=== PATIENT | female | born 1945 | race Caucasian/White ===

== ENCOUNTER 2019-08-03 10:20 | Outpatient (CLI) | payer MEDICARE, SELFPAY ==
--- NOTE | ~2019-08-03 | MM_ITS ---
EXAMINATION: MM screening [facility] BI w maryam HISTORY: Screening mammogram TECHNIQUE: Craniocaudal and mediolateral oblique 3-D tomosynthesis images were obtained and synthetic 2-D images were generated. CAD analysis was submitted and interpreted. COMPARISON: 06/19/2018, 06/06/2017, 01/17/2015 BREAST PARENCHYMAL COMPOSITION: The breasts are almost entirely fatty. FINDINGS: There is no evidence of suspicious mass, calcification, or architectural distortion to sugg est malignancy in either breast. There has been no suspicious interval change. IMPRESSION: 1. No mammographic evidence of malignancy. 2. Recommend routine screening mammography in one year. BI-RADS Category 1: Negative Reviewed, dictated and finalized at location A.
--- NOTE | ~2019-08-03 | XR_ITS ---
EXAMINATION: XR chest 2V DATE: 08/03/2019 12:07 INDICATION: Shortness of breath. TECHNIQUE: Frontal and lateral views of the chest were obtained. COMPARISON: Chest single view 11/05/2014, 10/02/2018 FINDINGS: There is mild atelectasis in the lower lung zones. No pleural effusion or pneumothorax. The heart size is normal. There is a prominent left paracardial fat pad. There is a right shoulder arthr oplasty. There are chronic compression fractures of T5 and L1. IMPRESSION: 1. Mild atelectasis in the lower lung zones. Reviewed, dictated and finalized at location A.
--- NOTE | ~2019-08-03 | MR_ITS ---
EXAMINATION: MR brain/brain stem wo con DATE: 08/03/2019 12:50 INDICATION: Left hemiparesis. Amnesia. TECHNIQUE: Magnetic resonance imaging (MRI) of the brain and brainstem was performed without intraven ous contrast. Sequences included sagittal and axial T1-weighted FSE, axial diffusion-weighted FS EPI, axial T2*-weighted GRE, axial T2-weighted FLAIR Propeller, and axial T2-weighted Propeller. Apparent diffusion coefficient (ADC) maps were created. COMPARISON: Head CT 11/04/2018 FINDINGS: There are scattered areas of nonspecific increased T2-weighted signal intensity in the cere bral white matter and benedict, which is within normal limits for the patient's age. There is no intracra nial hemorrhage, acute infarction, or abnormal intracranial mass lesion. The ventricles are normal in size. The paranasal sinuses are clear. The orbits are normal. The mastoid air cells are normal. IMPRESSION: 1. Normal aging brain. Reviewed, dictated and finalized at location A. IMPRESSION: 1. Normal aging brain.
== END 2019-08-03 10:21 | disposition home or self-care (01) ==
PROVIDERS: PCP Family Medicine; Visit Provider Family Medicine
DX: Z12.31 Encounter for screening mammogram for malignant neoplasm of breast (principal); R41.3 Other amnesia; R06.02 Shortness of breath; J98.11 Atelectasis
CPT/HCPCS: 70551; 71046; 77063; 77067

== ENCOUNTER 2019-10-28 09:14 | Outpatient (CLI) | payer MEDICARE, SELFPAY ==
[2019-10-28 09:34] LABS: Basophils Percent Auto 0.1 % (0.2-1.2); Eosinophils Absolute Auto 0.2 K/mm3 (0-0.3); Eosinophils Percent Auto 2.3 % (0-4.4); Hematocrit 39.9 % (37.0-47.0); Hemoglobin 12.9 g/dL (12.0-15.0); Immature Granulocyte Absolute 0.01 K/mm3 (0.00-0.031); Immature Granulocyte Percent A 0.1 % (0-0.5); Lymphocytes Absolute Auto 0.84 K/mm3 (0.9-3.2); Lymphocytes Percent Auto 12.2 % (18.3-44.2); Mean Corpuscular HGB Conc 32.3 g/dl (32-36); Mean Corpuscular Hemoglobin 31.3 pg (26-34); Mean Corpuscular Volume 96.8 fl (80-100); Mean Platelet Volume 10.4 fl (7.4-10.4); Monocytes Absolute Auto 0.4 K/mm3 (0.1-0.6); Monocytes Percent Auto 6.1 % (2.6-8.5); Neutrophils Absolute Auto 5.4 K/mm3 (1.3-6.7); Neutrophils Percent Auto 79.2 % (45.5-73.1); Platelet Count Result 159 k/mm3 (150-375); Red Blood Count 4.12 M/mm3 (4.2-5.4); Red Cell Distribution Width 13.2 % (11.5-14.5); White Blood Count 6.9 K/mm3 (4.5-10.0)
[2019-10-28 09:47] LABS: Alanine Aminotransferase 12 U/L (4-35); Albumin Level 4.2 g/dL (3.5-5.1); Alkaline Phosphatase 73 U/L (38-126); Anion Gap 12.9 mmol/L (7-16); Aspartate Amino Transferase 33 U/L (14-36); Bilirubin,Total 0.8 mg/dL (0.2-1.3); Blood Urea Nitrogen 16 mg/dL (7-17); Calcium 8.9 mg/dL (8.4-10.2); Carbon Dioxide 29 mmol/L (22-30); Chloride 99 mmol/L (98-107); Estimated Glomerular Filt Rate > 60; Glucose 105 mg/dL (65-105); Potassium 3.9 mmol/L (3.4-5.0); Sodium 137 mmol/L (137-145)
[2019-10-28 10:39] LABS: Vitamin D 25 Hydroxy 46.5 ng/mL
--- NOTE | 2019-10-28 11:30 | NEURO_ITS ---
Patient Number: [id number] Impression: # Complains of numbness and weakness of hands and feet. # Bilateral Carpal Tunnel Syndrome, left more than right of severe degree. # Left ulnar neuropathy across the elbow. # Needle/EMG neurogenic in bilateral Abd Poll Brevis muscles. # Bilateral absent peroneal nerve responses with absent F-waves and neurogenic changes in EDB and Ant Tibialis muscles raising the possibility of higher involvement as well Nerve Conduction Studies Anti Sensory Summary Table Stim Site NR Peak (ms) P-T Amp (?V) Site1 Site2 Delta-P (ms) Dist (cm) Kenny (m/s) Left Median Anti Sensory (2-3nd Digit) Wrist 8.1 9.3 Wrist 2-3nd Digit 8.1 14.0 17 Wrist 8.9 15.9 Wrist 2-3nd Digit 8.1 14.0 17 Right Median Anti Sensory (2-3nd Digit) Wrist 9.0 30.1 Wrist 2-3nd Digit 9.0 14.0 16 Wrist 4.3 33.0 Wrist 2-3nd Digit 9.0 14.0 16 Left Radial Anti Sensory (Base 1st Digit) Wrist 2.2 17.3 Wrist Base 1st Digit 2.2 0.0 Right Radial Anti Sensory (Base 1st Digit) Wrist 2.1 12.2 Wrist Base 1st Digit 2.1 0.0 Left Sup Fibular Anti Sensory (Ant Lat Mall) 14 cm 4.2 9.1 14 cm Ant Lat Mall 4.2 16.0 38 Right Sup Fibular Anti Sensory (Ant Lat Mall) 14 cm 4.3 13.5 14 cm Ant Lat Mall 4.3 16.0 37 Left Sural Anti Sensory (Lat Mall) Calf 4.4 11.0 Calf Lat Mall 4.4 16.0 36 Right Sural Anti Sensory (Lat Mall) Calf 4.0 3.8 Calf Lat Mall 4.0 16.0 40 Left Ulnar Anti Sensory (5th Digit) Wrist 3.0 9.7 Wrist 5th Digit 3.0 14.0 47 Right Ulnar Anti Sensory (5th Digit) Wrist 2.1 43.1 Wrist 5th Digit 2.1 14.0 67 Motor Summary Table Stim Site NR Onset (ms) O-P Amp (mV) Site1 Site2 Delta-0 (ms) Dist (cm) Kenny (m/s) Left Median Motor (Abd Poll Brev) NO RESPONSE Wrist NR Elbow NR Right Median Motor (Abd Poll Brev) Wrist 9.5 0.4 Elbow Wrist 5.4 28.0 52 Elbow 14.9 0.5 Left Peroneal Motor (Vastus Med) NO RESPONSE Ankle NR Popit NR Right Peroneal Motor (Vastus Med) NO RESPONSE Ankle NR Popit NR Left Tibial Motor (Abd Valle Brev) Ankle 4.7 2.0 Knee Ankle 9.4 41.0 44 Knee 14.1 3.2 Right Tibial Motor (Abd Valle Brev) Ankle 4.1 2.4 Knee Ankle 10.0 40.0 40 Knee 14.1 2.0 Left Ulnar Motor (Abd Dig Minimi) Wrist 3.1 4.1 A Elbow Wrist 6.7 29.0 43 A Elbow 9.8 3.0 B Elbow Wrist 5.6 23.0 41 B Elbow 8.7 2.9 Right Ulnar Motor (Abd Dig Minimi) Wrist 2.3 4.9 A Elbow Wrist 5.0 29.0 58 A Elbow 7.3 4.0 F Wave Studies NR F-Lat (ms) L-R F-Lat (ms) Left Median (Mrkrs) (Abd Poll Brev) 32.58 0.82 Right Median (Mrkrs) (Abd Poll Brev) 31.76 0.82 Left Peroneal (Mrkrs) (EDB) NO RESPONSE NR Right Peroneal (Mrkrs) (EDB) NO RESPONSE NR Left Tibial (Mrkrs) (Abd Hallucis) 56.14 1.64 Right Tibial (Mrkrs) (Abd Hallucis) 57.78 1.64 Left Ulnar (Mrkrs) (Abd Dig Min) 30.15 0.03 Right Ulnar (Mrkrs) (Abd Dig Min) 30.12 0.03 EMG Side Muscle Nerve Root Ins Act Fibs Amp Dur Recrt Comment Right 1stDorInt Ulnar C8-T1 Nml Nml Nml Nml Nml Right Ext Indicis Radial (Post Int) C7-8 Nml Nml Nml Nml Nml Right Ext Digitorum Radial (Post Int) C7-8 Nml Nm
== END 2019-10-28 09:15 | disposition home or self-care (01) ==
LOC: ANHNEURO 09:15
PROVIDERS: PCP Family Medicine; Visit Provider Family Medicine
DX: E78.2 Mixed hyperlipidemia (principal); I10 Essential (primary) hypertension; J44.9 Chronic obstructive pulmonary disease, unspecified; K50.90 Crohn's disease, unspecified, without complications; Z87.891 Personal history of nicotine dependence; G56.03 Carpal tunnel syndrome, bilateral upper limbs; G56.22 Lesion of ulnar nerve, left upper limb
CPT/HCPCS: 36415; 80053; 82306; 82607; 85025; 95886; 95913

== ENCOUNTER 2019-10-30 16:32 | Outpatient (CLI) | payer MEDICARE, SELFPAY ==
--- NOTE | ~2019-10-30 | CT_ITS ---
EXAMINATION: CT lung screening EXAM DATE: 10/30/2019 17:07 INDICATION: Personal history of nicotine dependence. TECHNIQUE: Spiral low dose CT of the chest without contrast. Axial, coronal and sagittal images were reviewed. The dose-length product (DLP) for this examination was 242.18 mGy-cm. The exposure was t ailored according to patient size (auto mA exposure control), and iterative reconstruction (ASIR) was used as additional dose reduction technique. Comparison is made to prior examination from 10/02/2018. FINDINGS: There is mild emphysema and mild left basilar atelectasis. A few punctate pulmonary nodule s unchanged, granulomas. No suspicious pulmonary nodules. Tracheobronchial tree is patent. There i s no mediastinal, hilar or axillary lymphadenopathy. There are no pleural or pericardial effusions. There is no pneumothorax. Heart is upper limits of normal in size. No evidence of coronary radha rial calcification. Upper abdomen is unremarkable. No osteoblastic or osteolytic lesions identified . Right shoulder replacement hardware. Advanced left shoulder primary osteoarthritis. 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 IMPRESSION: Lung-RADS category 2, benign appearance or behavior (<1% chance of malignancy); recommend continued LDCT screening in 1 year. > Reviewed, dictated and finalized at location A.
== END 2019-10-30 16:33 | disposition home or self-care (01) ==
LOC: ANHIMG 16:33
PROVIDERS: PCP Family Medicine; Visit Provider Family Medicine
DX: E78.2 Mixed hyperlipidemia (principal); I10 Essential (primary) hypertension; J44.9 Chronic obstructive pulmonary disease, unspecified; K50.90 Crohn's disease, unspecified, without complications; Z12.2 Encounter for screening for malignant neoplasm of respiratory organs; Z87.891 Personal history of nicotine dependence
CPT/HCPCS: G0297

== ENCOUNTER 2019-12-16 12:03 | Emergency (ER) | payer MEDICARE, SELFPAY ==
--- NOTE | ~2019-12-16 | US_ITS ---
EXAMINATION: US venous doppler [facility] EXAM DATE: 12/16/2019 14:54 INDICATION: Left leg pain and swelling. TECHNIQUE: Multiple grayscale, color flow and Doppler images of the left lower extremity deep venous system were obtained and reviewed. Comparison is made to prior examination from 11/04/2018. FINDINGS: The left common femoral, femoral and profunda veins demonstrate normal color flow, respirat ory variation, augmentation and compressibility. Compressibility, color flow confirmed within the le ft popliteal, posterior tibial, peroneal, and greater saphenous veins. Scanning at left knee area of concern, region of bruise demonstrated some edema suspected but no foca l hematoma. IMPRESSION: 1. No left lower extremity deep venous thrombosis. Reviewed, dictated and finalized at location B.
--- NOTE | ~2019-12-16 | XR_ITS ---
EXAMINATION: XR knee LT min 4V DATE: 12/16/2019 13:30 INDICATION: Left knee pain. TECHNIQUE: 4 views of left knee were obtained. COMPARISON: Left knee radiographs 04/11/2016 FINDINGS: Bone alignment is normal. No fracture. There is severe osteoarthritis of medial and patello femoral compartments and moderate osteoarthritis of lateral compartment. No knee joint effusion. Ther e are loose bodies in the knee joint. IMPRESSION: 1. Severe left knee osteoarthritis. 2. Left knee joint loose bodies. Reviewed, dictated and finalized at location A.
[2019-12-16 12:17] VITALS: BP 105/61; PULSE 69; RESP 18; TEMP 36.6; O2SAT 95
[2019-12-16 14:38] LABS: Basophils Percent Auto 0.3 % (0.2-1.2); Eosinophils Absolute Auto 0.3 K/mm3 (0-0.3); Eosinophils Percent Auto 4.3 % (0-4.4); Hemoglobin 12.6 g/dL (12.0-15.0); Immature Granulocyte Absolute 0.01 K/mm3 (0.00-0.031); Immature Granulocyte Percent A 0.2 % (0-0.5); Lymphocytes Percent Auto 17.3 % (18.3-44.2); Mean Corpuscular HGB Conc 32.3 g/dl (32-36); Mean Corpuscular Hemoglobin 31.6 pg (26-34); Mean Corpuscular Volume 97.7 fl (80-100); Monocytes Absolute Auto 0.3 K/mm3 (0.1-0.6); Monocytes Percent Auto 5.2 % (2.6-8.5); Neutrophils Absolute Auto 4.2 K/mm3 (1.3-6.7); Neutrophils Percent Auto 72.7 % (45.5-73.1); Platelet Count Result 168 k/mm3 (150-375); Red Blood Count 3.99 M/mm3 (4.2-5.4); Red Cell Distribution Width 12.8 % (11.5-14.5); White Blood Count 5.8 K/mm3 (4.5-10.0)
[2019-12-16 14:53] LABS: Anion Gap 6 mmol/L (8-16); Blood Urea Nitrogen 16 mg/dL (7-17); CRP < 0.5 mg/dL (<1.0); Calcium 9.1 mg/dL (8.4-10.2); Carbon Dioxide 30 mmol/L (22-30); Chloride 103 mmol/L (98-107); Estimated CRCL calculation 77 ml/min; Estimated Glomerular Filt Rate > 60; Glucose 92 mg/dL (65-105); Sodium 139 mmol/L (137-145)
--- NOTE | 2019-12-16 15:09 | ED.GENADULT ---
HPI - General Adult General Chief complaint: Extremity Injury, Lower <ZOHREH Llamas Last Filed: 12/16/19 15:40> Stated complaint: left knee pain <ZOHREH Llamas Last Filed: 12/16/19 15:40> Time Seen by Provider: 12/16/19 13:52 <ZOHREH Llamas Last Filed: 12/16/19 15:40> Source: patient and family <ZOHREH Llamas Last Filed: 12/16/19 15:40> Mode of arrival: ambulatory <ZOHREH Llamas Last Filed: 12/16/19 15:40> Limitations: no limitations <ZOHREH Llamas Last Filed: 12/16/19 15:40> History of Present Illness HPI narrative: Patient is a 73-year-old female who presents with left knee pain and swelling patient has been working on her knees frequently and developed some bruising of the superior left knee that has spread out around the knee where she noticed swelling and tenderness <ZOHREH Llamas Last Filed: 12/16/19 15:40> Related Data Home medications: Home Medications Medication Instructions Recorded Confirmed acetaminophen 650 mg 650 mg PO Q12H 03/05/19 12/15/19 tablet,extended release albuterol sulfate 2.5 mg INHALATION Q6H 03/05/19 12/15/19 aspirin 81 mg tablet,delayed 81 mg PO DAILY 03/05/19 12/15/19 release naproxen sodium 220 mg tablet 220 mg PO BID PRN 03/05/19 12/15/19 potassium chloride 10 mEq 10 meq PO DAILY 03/05/19 12/15/19 tablet,extended release pramipexole 1 mg tablet 1 mg PO BID 03/05/19 12/15/19 sertraline 50 mg tablet 50 mg PO DAILY 03/05/19 12/15/19 <ZOHREH Llamas Last Filed: 12/16/19 15:40> Allergies/adverse reactions: Allergies Allergy/AdvReac Type Severity Reaction Status Date / Time Penicillins Allergy Unknown Unknown Verified 09/01/19 15:31 SODIUM PENTOTHAL AdvReac Intermediate Nausea and Uncoded 12/17/18 14:49 Vomiting <ZOHREH Llamas Last Filed: 12/16/19 15:40> Review of Systems Review of Systems: All systems reviewed & are unremarkable except as noted in HPI and below <Alphonse Sands PA-C - Last Filed: 12/16/19 15:40> [facility] Past Medical History Medical History: Medical History Alcohol abuse Cubital tunnel syndrome on left Postmenopausal Primary osteoarthritis of right hip <Alphonse Sands PA-C - Last Filed: 12/16/19 15:40> Surgical History Surgical History: Surgical History H/O shoulder replacement (~2017) History of hip replacement (~2017) <Alphonse Sands PA-C - Last Filed: 12/16/19 15:40> Social History Social History: Social History Smoking status: Former smoker Smoking end date: 03/25/09 Alcohol intake: current Gender identity (if verbalized by the patient): Female <Alphonse Sands PA-C - Last Filed: 12/16/19 15:40> Course Course Emergency Course: Patient is seen her primary care earlier in the week for this who thought she may have tore something I agree with this given the bruising above the knee likely suggests a hematoma that is spread downward secondary to gravity patient is afebrile nontoxic-appearing no high risk changes in the blood work or imaging felt appropriate for continued outpatient reevaluation discussion was made with her son-in-law who is a medical doctor and she will also help facilitate her follow-up will be given orthopedic follow-up as well <Alphonse Sands PA-C - Last Filed: 12/16/19 15:40> Vital Signs Vital signs: Vital Signs Temperature 36.6 C 12/16/19 12:17 Pulse Rate 69 12/16/19 12:17 Respiratory Rate 18 12/16/19 12:17 Blood Pressure 105/61 12/16/19 12:17 Pulse Oximetry 95 12/16/19 12:17 Temperature 36.6 C 12/16/19 12:17 Pulse Rate 80 12/16/19 15:50 Respiratory Rate 18 12/16/19 15:50 Blood Pressure 138/78 12/16/19 15:50 Pulse Oximetry
[2019-12-16 15:50] VITALS: BP 138/78; PULSE 80; RESP 18; O2SAT 99
== END 2019-12-16 15:51 | disposition home or self-care (01) ==
PROVIDERS: Emergency Provider Emergency Medicine; PCP Family Medicine
DX: M25.562 Pain in left knee (principal); R22.42 Localized swelling, mass and lump, left lower limb
CPT/HCPCS: 36415; 73564; 80048; 85025; 86140; 93971; 99284

== ENCOUNTER 2020-02-22 11:32 | Outpatient (CLI) | payer MEDICARE, SELFPAY ==
--- NOTE | 2020-02-22 11:34 | ECG_ITS ---
Measurements Intervals [place] Rate: 76 P: SD: 0 QRS: 15 QRSD: 102 T: 31 QT: 390 QTc: 439 Interpretive Statements SINUS RHYTHM DELAYED PRECORDIAL R/S TRANSITION BORDERLINE ST-T WAVE ABNORMALITY- ANT/HIGH LAT LEADS BASELINE ARTIFACT- I, II, III, AVR, AVL, AVF, V1-V6 BORDERLINE ECG Electronically Signed On 02-22-2020 12:02:07 SUSTAINABILITY COMMUNICATOR by Brian Anderson D.O.
[2020-02-22 12:08] LABS: Anion Gap 6 mmol/L (8-16); Blood Urea Nitrogen 16 mg/dL (7-17); Calcium 9.3 mg/dL (8.4-10.2); Carbon Dioxide 33 mmol/L (22-30); Chloride 99 mmol/L (98-107); Estimated Glomerular Filt Rate > 60; Glucose 100 mg/dL (65-105); Sodium 138 mmol/L (137-145)
== END 2020-02-22 11:33 | disposition home or self-care (01) ==
LOC: ANHSURGERY 11:34
PROVIDERS: Anesthesiology; PCP Family Medicine; Visit Provider Plastic Surgery
DX: Z01.818 Encounter for other preprocedural examination (principal); I10 Essential (primary) hypertension; Z79.899 Other long term (current) drug therapy
CPT/HCPCS: 36415; 80048; 93005

== ENCOUNTER 2020-02-27 00:53 | Outpatient (CLI) | payer MEDICARE, SELFPAY ==
[2020-02-27 19:14] LABS: SARS-CoV-2 RNA PCR Negative
== END 2020-02-27 00:54 | disposition home or self-care (01) ==
LOC: ANHCOVIDDT 00:53
PROVIDERS: PCP Family Medicine; Visit Provider Plastic Surgery
DX: Z01.818 Encounter for other preprocedural examination (principal); Z20.828 Contact with and (suspected) exposure to other viral communicable diseases
CPT/HCPCS: 87635; C9803; U0003

== ENCOUNTER 2020-03-02 01:00 | Day surgery (SDC) | payer MEDICARE, SELFPAY ==
[2020-02-08 08:24] VITALS: BMI 40.7
--- NOTE | 2020-02-15 10:55 | PC.NURSE ---
PT STATES NO CHANGE IN HEALTH HX SINCE LAST INTERVIEW ON 02/08/20. NEW DATE AND TIME GIVEN
--- NOTE | 2020-03-01 09:54 | WPDANESEPPF ---
Anes - Initial Pre Proc Eval Procedure: Operation Date: 03/02/20 09:30 Proposed Procedures p Left Open Carpal Tunnel Release - Prince Prasad MD Date/Time: 03/01/20 09:54 Surgeon: Prince Prasad MD Pre Op Diagnosis: Left Carpal Tunnel Syndrome Patient Data Age: 74 Gender: F Height: 1.65 m Weight: 111 kg Allergies Allergy/AdvReac Type Severity Reaction Status Date / Time Penicillins Allergy Mild Rash Verified 03/02/20 08:02 thiopental [From Pentothal] AdvReac Intermediate Nausea and Verified 03/01/20 09:34 Vomiting Home Medications Medication Instructions Recorded Confirmed Type clopidogrel 75 mg tablet 75 mg PO DAILY #90 tablet 02/18/19 03/02/20 Rx acetaminophen 650 mg 650 mg PO Q12H PRN 03/05/19 02/08/20 History tablet,extended release albuterol sulfate 2.5 mg INHALATION Q6H PRN 03/05/19 02/08/20 History aspirin 81 mg tablet,delayed 81 mg PO DAILY 03/05/19 02/08/20 History release naproxen sodium 220 mg tablet 220 mg PO QAM 03/05/19 02/08/20 History potassium chloride 10 mEq 10 meq PO DAILY 03/05/19 02/08/20 History tablet,extended release rosuvastatin 10 mg tablet 10 mg PO DAILY #90 tablet 12/04/19 02/08/20 Rx furosemide 40 mg tablet 40 mg PO QAM #90 tablet 01/14/20 02/08/20 Rx albuterol sulfate [Ventolin HFA] 1 inh INHALATION QID PRN 02/08/20 02/08/20 History balsalazide 2,250 mg PO BID 02/08/20 02/08/20 History diphenoxylate-atropine 2 tablet PO DAILY PRN 02/08/20 02/08/20 History gabapentin 300 mg PO TID 02/08/20 02/08/20 History sertraline 100 mg PO QAM 02/08/20 03/02/20 History pramipexole 1 mg tablet 1 mg PO HS #90 tablet 02/23/20 Rx ECG: Date of Service: 02/22/20 Procedure(s): CA 12 lead EKG Accession Number(s): [id number] cc: ~ Measurements Intervals [place] Rate: 76 P: [place]: 0 QRS: 15 QRSD: 102 T: 31 QT: 390 QTc: 439 Interpretive Statements SINUS RHYTHM DELAYED PRECORDIAL R/S TRANSITION BORDERLINE ST-T WAVE ABNORMALITY- ANT/HIGH LAT LEADS BASELINE ARTIFACT- I, II, III, AVR, AVL, AVF, V1-V6 BORDERLINE ECG Electronically Signed On 02-22-2020 12:02:07 TELEPHONE INTERVIEWER by Brian Anderson D.O. Dictated By: Brian Anderson DO 02/22/20 1212 Patient hx anesthesia problems: none Family hx anesthesia problems: none [facility] Past Medical History Medical History (Updated 03/01/20 @ 09:55 by Surinder Figueroa MD) Alcohol abuse Benign hypertension Cervical disc disorder with radiculopathy of cervicothoracic region Chronic depression Chronic diastolic (congestive) heart failure Chronic obstructive pulmonary disease, unspecified Crohn's disease, unspecified, without complications 2018 colonoscopy negative ( cologuard +) Cubital tunnel syndrome on left Lung nodules 05/2017, 09/2018: stable 4mm right apex nodule/ multiple other nodules, emphysema LDCT: stable Major depressive disorder, recurrent, moderate Mixed hyperlipidemia Nicotine dependence, unspecified, in remission LDCT 40 pack year/ quit 9 yrs ago 06/09, 10/10: emphysema, chronic 4mm nodule right apex, multiple nodules Obstructive sleep apnea syndrome in adult Oxygen dependent Peripheral neuropathy Postmenopausal Primary osteoarthritis of right hip Pulmonary HTN RLS (restless legs syndrome) Surgical History Surgical History H/O shoulder replacement (~2016) History of hip replacement (~2016) Family History Family History Mother Family history of osteoporosis Family history of mental disorder Family history of anemia Family history of arthritis Family history of malignant neoplasm Family history of
--- NOTE | 2020-03-02 07:10 | WPDHPUPDATE1 ---
History and Physical Update Update Date/Time: 03/02/20 07:10 History and Physical has been reviewed, including an updated exam of the patient. There are NO changes in the patient's condition. Risks, benefits, and alternatives have been discussed and questions answered. Patient agrees to proceed with procedure. Pt prefers that only the left be operated today.
[2020-03-02 07:32] VITALS: BP 134/75; PULSE 79; RESP 20; TEMP 36.8; O2SAT 92
[2020-03-02] MEDS: LACTATED RINGERS 1,000 ML 30 ML IV CONT (08:05)
--- NOTE | 2020-03-02 09:37 | SUR.PREOP ---
FAMILY UPDATE TO DAUGHTER BRIANA/MESSAGE LEFT R/T DELAY W/SURGEON/ PT AMBULATED TO BATHROOM AT THIS TIME W/CANE AND STAFF ASSISTANCE
[2020-03-02] MEDS: BACITRACIN OINTMENT 15 GM TUBE 1 APPLIC TOPICAL (10:39)
[2020-03-02] MEDS: LIDO 1%/EPINEPHRINE 1:100,000 20 ML VIAL 10 ML INFILTRATE (10:39)
--- NOTE | 2020-03-02 11:04 | PM.OP ---
Procedure Note - Brief Procedure Note - Brief Date of procedure: 03/02/20 Pre-op diagnosis: Left Carpal Tunnel Syndrome Post-op diagnosis: same Procedure performed: L OCTR Anesthesia: MAC Surgeon: Prince Prasad MD Tourniquet time (min): 15 Drains: No Packing: No Pathology: none sent Complications: No immediate complications Condition: stable Disposition: no change
[2020-03-02 11:05] VITALS: BP 104/56; PULSE 58; RESP 16; O2SAT 97
--- NOTE | 2020-03-02 11:26 | PM.PROC ---
Procedure Note - Detailed Date of procedure: 03/02/20 Pre-op diagnosis: Left Carpal Tunnel Syndrome The left carpal tunnel was marked as the patient was waiting in the holding area. She confirmed that site. She was taken to the operating room and placed supine on the operating table a time-out was held and confirmed. She was given IV sedation as the extremity was prepped and draped in the usual fashion. Marking was reconfirmed on the palm and the site locally infiltrated with 1% lidocaine with epinephrine. The tourniquet was inflated to 250 mmHg. The incision was made in the palm as marked. Dissection was carried through the subcutaneous tissue with blunt dissection and through the fascia and carpal ligament with a 15. Blade. Under 3 point retraction the ligament divided distally and proximally to completely release it. No unusual anatomy was noted. The skin was closed with interrupted 5 0 nylon suture. She is discharged with a soft bandage across the wrist, instructions in wound care and follow-up, and a prescription for hydrocodone 5/325 8. Surgeon: Prince Prasad MD
[2020-03-02 11:35] VITALS: BP 120/55; PULSE 62; RESP 16; O2SAT 94
[2020-03-02 12:05] VITALS: BP 154/64; PULSE 66; RESP 16; O2SAT 94
== END 2020-03-02 12:46 | disposition home or self-care (01) ==
PROVIDERS: PCP Family Medicine; Visit Provider Plastic Surgery
PROC: (CPT 64721; principal; 2020-03-02 09:30)
DX: G56.02 Carpal tunnel syndrome, left upper limb (principal); I11.0 Hypertensive heart disease with heart failure; I50.32 Chronic diastolic (congestive) heart failure; K50.90 Crohn's disease, unspecified, without complications; F33.1 Major depressive disorder, recurrent, moderate; G47.33 Obstructive sleep apnea (adult) (pediatric); G62.9 Polyneuropathy, unspecified; G25.81 Restless legs syndrome; Z99.81 Dependence on supplemental oxygen; Z87.891 Personal history of nicotine dependence; E66.01 Morbid (severe) obesity due to excess calories; Z68.41 Body mass index [BMI] 40.0-44.9, adult; F10.10 Alcohol abuse, uncomplicated
CPT/HCPCS: 64721; A9270; J2250; J2405; J2704; J3010; J7120

== ENCOUNTER 2020-03-09 11:08 | Outpatient (NON) | payer MEDICARE, SELFPAY ==
[2020-03-09 22:32] LABS: SARS-CoV-2 RNA PCR Positive
== END 2020-03-09 11:09 ==
LOC: ANHCOVIDDT 11:10
PROVIDERS: PCP Family Medicine; Visit Provider Physician Assistant Medical
DX: U07.1 COVID-19 (principal)
CPT/HCPCS: 87635; C9803; U0003

== ENCOUNTER 2020-06-19 17:08 | Emergency (ER) | payer MEDICARE, SELFPAY ==
--- NOTE | ~2020-06-19 | CT_ITS ---
EXAMINATION: CT brain wo [facility] EXAM DATE: 06/19/2020 17:39 INDICATION: Fall, right-sided head injury. On blood thinners. TECHNIQUE: Spiral CT of the head was performed without contrast. Axial, coronal and sagittal images were reviewed. The dose-length product (DLP) for this examination was 605.33 mGy-cm. The exposure w as tailored according to patient size, and iterative reconstruction (ASIR) was used as additional dos e reduction technique. Comparison is made to prior examination from 11/04/2018. FINDINGS: There is no acute intraparenchymal hemorrhage. No evidence of intraparenchymal brain mass lesion. Mild cerebral atrophy. No evidence of acute infarction. There is no mass effect or midline s hift. The ventricles are normal in size. There are no extra-axial collections. There are no acute calvarial fractures. The orbits are unremarkable. There is large right-sided scalp hematoma. The vis ualized sinuses and mastoid air cells are well aerated. IMPRESSION: 1. No acute intracranial findings. 2. Large right-sided scalp hematoma. Reviewed, dictated and finalized at location A.
[2020-06-19 17:22] VITALS: BP 170/84; PULSE 86; RESP 16; TEMP 36.4; O2SAT 93
--- NOTE | 2020-06-19 17:26 | ED.HEATRA ---
HPI - Head Injury General Chief complaint: Head Injury Stated complaint: fall/hi Time Seen by Provider: 06/19/20 17:18 History of Present Illness HPI Narrative: 74 yo female presents to the ED with a head injury. SHe reports that she got up to go to the bathroom and she fell into a dresser. She struck the right side of her face. She denies any other pain or injury. She beleives that injury happened around 0900. No weakness, numbness, confusion, back pain, neck pain. Related Data Home Medications Medication Instructions Recorded Confirmed acetaminophen 650 mg 650 mg PO Q12H PRN 03/05/19 03/02/20 tablet,extended release aspirin 81 mg tablet,delayed 81 mg PO DAILY 03/05/19 03/02/20 release albuterol sulfate [Ventolin HFA] 1 inh INHALATION QID PRN 02/08/20 02/08/20 diphenoxylate-atropine 2 tablet PO DAILY PRN 02/08/20 02/08/20 balsalazide mg PO 06/19/20 clopidogrel 06/19/20 furosemide 06/19/20 gabapentin 06/19/20 potassium chloride meq PO 06/19/20 pramipexole mg 06/19/20 rosuvastatin mg 06/19/20 sertraline mg 06/19/20 Allergies Allergy/AdvReac Type Severity Reaction Status Date / Time Penicillins Allergy Mild Rash Verified 06/19/20 17:28 thiopental [From Pentothal] AdvReac Intermediate Nausea and Verified 06/19/20 17:28 Vomiting Review of Systems Review of Systems: All systems reviewed & are unremarkable except as noted in HPI and below Constitutional: Constitutional: Denies fever(s) Eyes: Eyes: Denies change in vision and Denies photophobia ENT: Reports system reviewed and no additional complaints, except as documented Cardiovascular: Cardiovascular: Denies chest pain Respiratory: Respiratory: Denies dyspnea Gastrointestinal: Gastrointestinal: Reports nausea Genitourinary: Genitourinary: Denies hematuria, Denies nocturia and Denies dysuria Musculoskeletal: Musculoskeletal: Denies back pain Neurologic: Denies dizziness and Denies weakness PMF Past Medical History Medical History Alcohol abuse Benign hypertension Cervical disc disorder with radiculopathy of cervicothoracic region Chronic depression Chronic diastolic (congestive) heart failure Chronic obstructive pulmonary disease, unspecified Crohn's disease, unspecified, without complications 2018 colonoscopy negative ( cologuard +) Cubital tunnel syndrome on left Lung nodules 05/2017, 09/2018: stable 4mm right apex nodule/ multiple other nodules, emphysema LDCT: stable Major depressive disorder, recurrent, moderate Mixed hyperlipidemia Nicotine dependence, unspecified, in remission LDCT 40 pack year/ quit 9 yrs ago 06/09, 10/10: emphysema, chronic 4mm nodule right apex, multiple nodules Obstructive sleep apnea syndrome in adult Oxygen dependent Peripheral neuropathy Postmenopausal Primary osteoarthritis of right hip Pulmonary HTN RLS (restless legs syndrome) Surgical History Surgical History H/O shoulder replacement (~2016) History of carpal tunnel surgery of left wrist 12.9.20 History of hip replacement (~2016) Family History Family History Mother Family history of osteoporosis Family history of mental disorder Family history of anemia Family history of arthritis Family history of malignant neoplasm Family history of Alzheimer's disease Patient's mother is Sibling Family history of malignant neoplasm of uterus Family history of malignant neoplasm of cervix Patient's sister is Other Cerebrovascular accident Family history of cardiovascular disease Family history of glaucoma Social History Social History Smoking packs per day: 1 Smoking cigarettes per day: 20.0 Years smoked: 45 Smoking pack-years: 45.00 Smoking status:
[2020-06-19 18:34] VITALS: BP 129/93; PULSE 67; RESP 18; O2SAT 92
== END 2020-06-19 18:27 | disposition home or self-care (01) ==
PROVIDERS: Emergency Provider Emergency Medicine; PCP Family Medicine
DX: S00.03XA Contusion of scalp, initial encounter (principal); J44.9 Chronic obstructive pulmonary disease, unspecified; I11.0 Hypertensive heart disease with heart failure; I50.32 Chronic diastolic (congestive) heart failure; K50.90 Crohn's disease, unspecified, without complications; E78.2 Mixed hyperlipidemia; G47.33 Obstructive sleep apnea (adult) (pediatric); Z99.81 Dependence on supplemental oxygen; G62.9 Polyneuropathy, unspecified; M16.11 Unilateral primary osteoarthritis, right hip; I27.20 Pulmonary hypertension, unspecified; G25.81 Restless legs syndrome; F32.9 Major depressive disorder, single episode, unspecified; Z79.82 Long term (current) use of aspirin; Z96.619 Presence of unspecified artificial shoulder joint; Z96.649 Presence of unspecified artificial hip joint; Z87.891 Personal history of nicotine dependence; W01.190A Fall on same level from slipping, tripping and stumbling with subsequent striking against furniture, initial encounter
CPT/HCPCS: 70450; 99284

== ENCOUNTER 2020-09-02 10:32 | Emergency (ER) | payer MEDICARE, SELFPAY ==
[2020-09-02] VITALS (14 sets, daily range): BP systolic 125–143; BP diastolic 70–82; PULSE 72–90; RESP 13–32; TEMP 36.9; O2SAT 90–99
--- NOTE | ~2020-09-02 | US_ITS ---
EXAMINATION:US venous doppler LE LT INDICATION:Left leg swelling TECHNIQUE: Multiple grayscale, color flow and Doppler images of the left lower extremity deep venous systems were obtained and reviewed. COMPARISON:12/16/2019 FINDINGS: The common femoral, superficial femoral and popliteal veins demonstrate normal respiratory variation, augmentation and compressibility. Color flow is also seen within the posterior tibial, pe roneal, greater saphenous and profunda veins. IMPRESSION: 1: No lower extremity deep venous thrombosis. Reviewed, dictated and finalized at location B.
--- NOTE | 2020-09-02 11:31 | ED.SKABFB ---
HPI - Skin/Abscess/Foreign Bdy General Chief complaint: Skin/Abscess/Foreign Body Stated complaint: Left leg-swelling reddness Time Seen by Provider: 09/02/20 10:46 Source: patient Mode of arrival: ambulatory Limitations: no limitations History of Present Illness HPI narrative: Patient is a 74 year old female who presents with LLE erythema and edema x2 days. She reports pain with palpation. She denies history of DVT. She denies history of injury. She denies fever, cough, chest pain or shortness of breath. Patient denies taking [id number] medications prior to arrival. MD complaint: other (Erythema and edema left lower extremity) Related Data Home Medications Medication Instructions Recorded Confirmed balsalazide mg PO 06/19/20 07/21/20 clopidogrel 06/19/20 07/21/20 furosemide 06/19/20 07/21/20 gabapentin 06/19/20 07/21/20 potassium chloride meq PO 06/19/20 07/21/20 pramipexole mg 06/19/20 07/21/20 rosuvastatin mg 06/19/20 07/21/20 sertraline mg 06/19/20 07/21/20 Allergies Allergy/AdvReac Type Severity Reaction Status Date / Time Penicillins Allergy Mild Rash Verified 09/02/20 10:56 thiopental [From Pentothal] AdvReac Intermediate Nausea and Verified 09/02/20 10:56 Vomiting Review of Systems Review of Systems: Narrative: CONSTITUTIONAL: Denies fever, chills, or sweats. EYES: Denies visual changes, redness, or discharge. ENT: Denies rhinorrhea, congestion, sore throat, or otalgia. CARDIOVASCULAR: Denies chest pain, palpitations, or edema. RESPIRATORY: Denies cough or dyspnea. GASTROINTESTINAL: Denies abdominal pain, nausea, vomiting, or diarrhea. GENITOURINARY: Denies dysuria or hematuria. SKIN: MUSCULOSKELETAL: Denies back pain, joint pain, or myalgia. NEUROLOGIC: Denies headache, numbness, dizziness, or weakness. PSYCHIATRIC: Denies anxiety or depression. [facility] Past Medical History Medical History (Updated 09/02/20 @ 12:49 by KATHARINA Arenas) Alcohol abuse Benign hypertension Cervical disc disorder with radiculopathy of cervicothoracic region Chronic depression Chronic obstructive pulmonary disease, unspecified Contusion of face COVID-19 Crohn's disease, unspecified, without complications 2018 colonoscopy negative ( cologuard +) Cubital tunnel syndrome on left Hematoma of scalp Lung nodules 05/2017, 09/2018: stable 4mm right apex nodule/ multiple other nodules, emphysema 8.2019 LDCT: stable Mixed hyperlipidemia Nicotine dependence, unspecified, in remission LDCT 40 pack year/ quit 9 yrs ago 06/09, 10/10: emphysema, chronic 4mm nodule right apex, multiple nodules Obstructive sleep apnea syndrome in adult Oxygen dependent Peripheral neuropathy Postmenopausal Primary osteoarthritis of right hip Pulmonary HTN RLS (restless legs syndrome) Weight loss, intentional Surgical History Surgical History H/O shoulder replacement (~2016) History of carpal tunnel surgery of left wrist .12.12 History of hip replacement (~2016) Family History Family History Mother Family history of osteoporosis Family history of mental disorder Family history of anemia Family history of arthritis Family history of malignant neoplasm Family history of Alzheimer's disease Patient's mother is Sibling Family history of malignant neoplasm of uterus Family history of malignant neoplasm of cervix Patient's sister is Other Cerebrovascular accident Family history of cardiovascular disease Family history of glaucoma Social History Social History Smoking packs per day: 1 Smoking cigarettes per day: 20.0 Years smoked: 45 Smoking pack-years: 45.00 Smoking status: Former smoker Smoking end date: 09/22/09 Alcohol intake: current Drinks per week: 21 Substance use: never Gender identity
[2020-09-02 11:56] LABS: Basophils Percent Auto 0.5 % (0.2-1.2); Eosinophils Absolute Auto 0.1 K/mm3 (0-0.3); Eosinophils Percent Auto 1.8 % (0-4.4); Hematocrit 37.1 % (37.0-47.0); Hemoglobin 11.6 g/dL (12.0-15.0); Immature Granulocyte Absolute 0.04 K/mm3 (0.00-0.031); Immature Granulocyte Percent A 0.6 % (0-0.5); Lymphocytes Absolute Auto 0.82 K/mm3 (0.9-3.2); Lymphocytes Percent Auto 12.5 % (18.3-44.2); Mean Corpuscular HGB Conc 31.3 g/dl (32-36); Mean Corpuscular Hemoglobin 29.7 pg (26-34); Mean Corpuscular Volume 95.1 fl (80-100); Mean Platelet Volume 10.9 fl (7.4-10.4); Monocytes Absolute Auto 0.4 K/mm3 (0.1-0.6); Monocytes Percent Auto 6.2 % (2.6-8.5); Neutrophils Absolute Auto 5.2 K/mm3 (1.3-6.7); Neutrophils Percent Auto 78.4 % (45.5-73.1); Platelet Count Result 145 k/mm3 (150-375); Red Cell Distribution Width 14.3 % (11.5-14.5); White Blood Count 6.6 K/mm3 (4.5-10.0)
[2020-09-02 12:08] LABS: Alanine Aminotransferase 12 U/L (4-35); Albumin Level 3.8 g/dL (3.5-5.1); Alkaline Phosphatase 73 U/L (38-126); Anion Gap 9 mmol/L (8-16); Aspartate Amino Transferase 30 U/L (14-36); Bilirubin,Total 0.8 mg/dL (0.2-1.3); Blood Urea Nitrogen 14 mg/dL (7-17); Calcium 9.4 mg/dL (8.4-10.2); Carbon Dioxide 32 mmol/L (22-30); Chloride 98 mmol/L (98-107); Estimated CRCL calculation 92 ml/min; Estimated Glomerular Filt Rate > 60; Glucose 102 mg/dL (65-105); Potassium 3.6 mmol/L (3.4-5.0); Sodium 139 mmol/L (137-145)
== END 2020-09-02 13:30 | disposition home or self-care (01) ==
PROVIDERS: Emergency Provider Nurse Practitioner; PCP Family Medicine
DX: L03.116 Cellulitis of left lower limb (principal); I10 Essential (primary) hypertension; J44.9 Chronic obstructive pulmonary disease, unspecified; K50.90 Crohn's disease, unspecified, without complications; E78.2 Mixed hyperlipidemia; G47.33 Obstructive sleep apnea (adult) (pediatric); G62.9 Polyneuropathy, unspecified; I27.20 Pulmonary hypertension, unspecified; M16.11 Unilateral primary osteoarthritis, right hip; G25.81 Restless legs syndrome; Z99.81 Dependence on supplemental oxygen; Z86.16 Personal history of COVID-19; Z96.619 Presence of unspecified artificial shoulder joint; Z96.649 Presence of unspecified artificial hip joint; Z87.891 Personal history of nicotine dependence
CPT/HCPCS: 36415; 80053; 85025; 93971; 99284

== ENCOUNTER 2020-09-30 08:55 | Inpatient (IN) | payer MEDICARE, SELFPAY ==
[2020-09-30] VITALS (22 sets, daily range): BP systolic 96–197; BP diastolic 63–132; PULSE 66–126; RESP 20–31; TEMP 36.1–37.1; O2SAT 84–97; BMI 43.2
--- NOTE | ~2020-09-30 | XR_ITS ---
EXAMINATION: XR chest 1V portable EXAM DATE: 09/30/2020 09:28 INDICATION: Shortness of breath, COPD. TECHNIQUE: Portable AP frontal chest x-ray was obtained. Comparison is made to prior examination from 08/03/2019. FINDINGS: The cardiac silhouette is enlarged. There is pulmonary vascular congestion. There is modera te amount of ill-defined right lateral airspace disease with differential diagnosis including edema f rom CHF, COVID pneumonia, other infectious process. Small pleural effusions. No pneumothorax. Right s houlder replacement. IMPRESSION: 1. Cardiomegaly, congestion. 2. Bilateral edema or infection. Reviewed, dictated and finalized at location B.
--- NOTE | ~2020-09-30 | US_ITS ---
EXAMINATION: US venous doppler [facility] DATE: 10/01/2020 09:20 INDICATION: Lower limb edema. TECHNIQUE: Grayscale ultrasound images without and with compression and Doppler ultrasound images of the bilateral lower extremity veins were obtained. COMPARISON: Ultrasound 09/02/2020 FINDINGS: The visualized portions of right common femoral vein, profunda (deep) femoral vein, femoral vein, pop liteal vein, peroneal veins, posterior tibial veins, and greater saphenous vein outflow are patent. The visualized portions of left common femoral vein, profunda femoral vein, femoral vein, popliteal v ein, peroneal veins, posterior tibial veins, and greater saphenous vein outflow are patent. IMPRESSION: 1. No deep venous thrombosis. Reviewed, dictated and finalized at location A.
--- NOTE | 2020-09-30 09:06 | ECG_ITS ---
Measurements Intervals [place] Rate: 119 P: 46 [place]: 169 QRS: 92 QRSD: 107 T: 71 QT: 426 QTc: 601 Interpretive Statements SINUS TACHYCARDIA RIGHT AXIS DEVIATION LOW QRS VOLTAGE IN LIMB LEADS POOR R WAVE PROGRESSION, ANTERIOR LEADS BASELINE ARTIFACT- I, II, III, AVR, AVL, AVF, V1-V6 ABNORMAL ECG Electronically Signed On 09-30-2020 10:01:25 CDT by Brian Anderson D.O.
[2020-09-30 09:31] LABS: Basophils Percent Auto 0.2 % (0.2-1.2); Hematocrit 41.7 % (37.0-47.0); Hemoglobin 12.7 g/dL (12.0-15.0); Immature Granulocyte Absolute 0.08 K/mm3 (0.00-0.031); Immature Granulocyte Percent A 0.6 % (0-0.5); Lymphocytes Absolute Auto 0.72 K/mm3 (0.9-3.2); Lymphocytes Percent Auto 5.6 % (18.3-44.2); Mean Corpuscular HGB Conc 30.5 g/dl (32-36); Mean Corpuscular Hemoglobin 29.5 pg (26-34); Mean Platelet Volume 10.6 fl (7.4-10.4); Monocytes Absolute Auto 0.5 K/mm3 (0.1-0.6); Monocytes Percent Auto 3.6 % (2.6-8.5); Neutrophils Absolute Auto 11.6 K/mm3 (1.3-6.7); Platelet Count Result 192 k/mm3 (150-375); Red Cell Distribution Width 14.9 % (11.5-14.5); White Blood Count 12.9 K/mm3 (4.5-10.0)
[2020-09-30 09:44] LABS: Anion Gap 13 mmol/L (8-16); Blood Urea Nitrogen 15 mg/dL (7-17); Calcium 9.2 mg/dL (8.4-10.2); Carbon Dioxide 24 mmol/L (22-30); Chloride 105 mmol/L (98-107); Estimated CRCL calculation 76 ml/min; Estimated Glomerular Filt Rate > 60; Glucose 303 mg/dL (65-105); Potassium 3.8 mmol/L (3.4-5.0); Sodium 142 mmol/L (137-145)
[2020-09-30 09:47] LABS: Prothrombin Time 13.2 Seconds (11.1-14.7)
[2020-09-30 09:48] LABS: Partial Thromboplastin Time 25.6 SECONDS (22.3-36.8)
[2020-09-30] MEDS: FUROSEMIDE INJ 40 MG/4 ML VIAL IV PUSH ×2 (09:50→20:08)
[2020-09-30 09:57] LABS: NT Pro B Type Natriuretic Pept 20400 pg/mL (5-100)
--- NOTE | 2020-09-30 10:37 | ED.SOB ---
HPI - SOB/Dyspnea General Chief Complaint: Shortness of Breath/Dyspnea Stated Complaint: SOB Time Seen by Provider: 09/30/20 09:04 History of Present Illness HPI Narrative: Patient is a 74-year-old female who presents ER in respiratory distress by EMS. Patient placed on CPAP by EMS. Patient reports shortness of breath that is worse with lying back. She is diaphoretic. She reports diffuse chest pressure related to the shortness of breath. Patient received inline nebulizer treatment from EMS. Patient denies any fevers or chills. No productive cough. No known infectious contacts. Related Data Home Medications Medication Instructions Recorded Confirmed balsalazide 750 mg capsule 2,250 mg PO BID cap 09/13/20 09/30/20 clopidogrel 75 mg tablet 75 mg PO DAILY tablet 09/13/20 09/30/20 furosemide 40 mg tablet 40 mg PO DAILY tablet 09/13/20 09/30/20 gabapentin 300 mg capsule 300 mg PO TID cap 09/13/20 09/30/20 potassium chloride 10 mEq 10 meq PO TID tablet 09/13/20 09/30/20 tablet,extended release pramipexole 1 mg tablet 1 mg PO DAILY tablet 09/13/20 09/30/20 rosuvastatin 10 mg tablet 10 mg PO DAILY tablet 09/13/20 09/30/20 sertraline 100 mg tablet 100 mg PO DAILY tablet 09/13/20 09/30/20 albuterol sulfate 2.5 mg INHALATION BID PRN 09/30/20 09/30/20 aspirin [Adult Aspirin] 81 mg PO DAILY 09/30/20 09/30/20 cholecalciferol (vitamin D3) 50 mcg PO DAILY 09/30/20 09/30/20 diphenhydramine HCl [Allergy 25 mg PO HS 09/30/20 09/30/20 (diphenhydramine)] [id number] 1 inh INHALATION Q24H 09/30/20 09/30/20 [Trelegy Ellipta] loperamide [Imodium] 4 mg PO DAILY 09/30/20 09/30/20 melatonin 10 mg PO HS 09/30/20 09/30/20 naproxen sodium [Aleve] 220 mg PO Q12H 09/30/20 09/30/20 Allergies Allergy/AdvReac Type Severity Reaction Status Date / Time Penicillins Allergy Mild Rash Verified 09/30/20 14:11 thiopental [From Pentothal] AdvReac Intermediate Nausea and Verified 09/30/20 14:11 Vomiting Review of Systems Review of Systems: All systems reviewed & are unremarkable except as noted in HPI and below Constitutional: Constitutional: Denies chills and Denies fever(s) Comments: Diaphoresis ENT: Denies nasal congestion and Denies sore throat Cardiovascular: Cardiovascular: Reports chest pain, Reports rapid heart rate and Denies radiating jaw, neck or arm pain Respiratory: Respiratory: Denies cough, Reports dyspnea and Denies wheezing PMFSH Past Medical History Medical History Alcohol abuse Benign hypertension Cervical disc disorder with radiculopathy of cervicothoracic region Chronic depression Chronic obstructive pulmonary disease Chronic respiratory failure with hypoxia COVID-19 Lung nodules 05/2017, 09/2018: stable 4mm right apex nodule/ multiple other nodules, emphysema 8.2019 LDCT: stable Mixed hyperlipidemia Nicotine dependence, unspecified, in remission LDCT 40 pack year/ quit 9 yrs ago 06/09, 10/10: emphysema, chronic 4mm nodule right apex, multiple nodules Obstructive sleep apnea syndrome in adult Peripheral neuropathy Postmenopausal Primary osteoarthritis of right hip Pulmonary hypertension Restless leg syndrome Ulcerative colitis 2018 colonoscopy negative (cologuard +). Surgical History Surgical History History of appendectomy History of carpal tunnel surgery of left wrist (03/02/20) History of hysterectomy History of total replacement of right shoulder joint History of total right hip arthroplasty Family History Family History (Updated 09/30/20 @ 23:43 by Ce Hernandez PA-C) Mother Family history of osteoporosis Family history of mental disorder Family history of anemia Family history of arthritis Family history of malignant neoplasm Family history of Alzheimer's disease Patient's mother is Sibling Family history of malign
--- NOTE | 2020-09-30 11:30 | PC.NURSE ---
lab, Jennifer, asked about A1C and was told it was already running
[2020-09-30] MEDS: ENOXAPARIN 120 MG/0.8 ML SYRINGE 110 MG SUB-Q (11:36)
[2020-09-30 11:41] LABS: Hemoglobin A1C 5.3 % (<5.7)
--- NOTE | 2020-09-30 12:45 | PM.IMHP ---
H&P: HPI History of Present Illness Date/Time: 09/30/20 12:45 Chief Complaint: Shortness of breath. Narrative: This is a 74-year-old female with hypertension, hyperlipidemia, COPD, obstructive sleep apnea, chronic respiratory failure on 4 L nasal cannula, and inflammatory bowel disease who presented to the emergency department earlier today via EMS from home for evaluation of shortness of breath. She slept poorly on Saturday due to the development of pretty significant shortness of breath associated with a heaviness in her mid chest region. Her shortness of breath was worse when lying supine and in fact she was not able to breathe well at all and less in a standing or kneeling position. She has also had a productive cough, nausea, dry heaves, and some loose stools though that has resolved. Additionally she has been treated with clindamycin and is now on doxycycline for left lower extremity cellulitis which she also notes to be much more swollen when compared to the right. In any regard her shortness of breath was not getting better and in fact was perhaps a bit worse today because I got panicky and thus she came in for evaluation. On EMS arrival her SpO2 was 91% on her usual 4 L and she was placed on CPAP due to work of breathing. She was transition to a BiPAP and she remains on that at the time my evaluation. We did try to take the BiPAP off for her to take her home medications and she immediately had difficulties breathing and exhibited pursed lipped breathing. She has no known history of coronary artery disease and to her knowledge she does not have congestive heart failure. She has not had any exertional chest pain, only heaviness since Saturday night. She denies palpitations, pleuritic pain, and racing heart. No calf pain or tenderness. She has no history of venous thromboembolism. No known exposure to those positive for COVID-19. She has not had fever, chills, but had sweats on Saturday night. No sinus congestion, rhinorrhea, otalgia, or odynophagia. No anosmia or dysgeusia. Review of Systems Review of Systems: Narrative: Twelve systems were reviewed with pertinent positives and negatives as per HPI. Except as documented, all other systems were reviewed and are negative. [facility] Past Medical History Medical History Alcohol abuse Benign hypertension Cervical disc disorder with radiculopathy of cervicothoracic region Chronic depression Chronic obstructive pulmonary disease Chronic respiratory failure with hypoxia COVID-19 Lung nodules 05/2017, 09/2018: stable 4mm right apex nodule/ multiple other nodules, emphysema 8 LDCT: stable Mixed hyperlipidemia Nicotine dependence, unspecified, in remission LDCT 40 pack year/ quit 9 yrs ago 06/09, 10/10: emphysema, chronic 4mm nodule right apex, multiple nodules Obstructive sleep apnea syndrome in adult Peripheral neuropathy Postmenopausal Primary osteoarthritis of right hip Pulmonary hypertension Restless leg syndrome Ulcerative colitis 2018 colonoscopy negative (cologuard +). Surgical History Surgical History History of appendectomy History of carpal tunnel surgery of left wrist (03/02/20) History of hysterectomy History of total replacement of right shoulder joint History of total right hip arthroplasty Family History Family History (Updated 09/30/20 @ 23:43 by Ce Hernandez PA-C) Mother Family history of osteoporosis Family history of mental disorder Family history of anemia Family history of arthritis Family history of malignant neoplasm Family history of Alzheimer's disease Patient's mother is Sibling Family history of malignant neoplasm of uterus Family history of malignant neoplasm of cervix Patient's sister is Daughter Crohn disease Other Cerebrovascular accident Family history of cardiovascular disease
--- NOTE | 2020-09-30 14:00 | ADMGEN ---
This patient, Ping Waller, was admitted to IMU Room 200-01. Patient/family oriented to hospital policies and general routines including ID bracelet, bed and alarms, visiting hours, pain management, procedures, bathroom and other care routines, personal items, smoking policy, room service/diet, and visiting hours. Information on how to activate the Rapid Response Team has been discussed. Patient/Family are encouraged to report perceived risks to care and to ask questions if they do not understand what they are told or what they should do.
[2020-09-30 16:25] LABS: Alanine Aminotransferase 19 U/L (4-35); Albumin Level 4.1 g/dL (3.5-5.1); Alkaline Phosphatase 70 U/L (38-126); Aspartate Amino Transferase 68 U/L (14-36); Bilirubin,Total 2.2 mg/dL (0.2-1.3); Magnesium 1.7 mg/dL (1.6-2.3)
--- NOTE | 2020-09-30 16:44 | PM.CNCAR ---
Assessment and Plan Assessment and plan (1) CHF exacerbation: Code(s): I50.9 - Heart failure, unspecified Status: Acute Assessment and Plan: Patient is a 74-year-old woman with history of congestive heart failure (HF-pEF), hypertension, hyperlipidemia, former tobacco dependence (40 pack year, quit 9 years ago), obstructive sleep apnea (on CPAP), COPD, pulmonary hypertension, COVID-19 (February 28, 2020), alcohol dependence (3 shots of vodka daily), ulcerative colitis, peripheral neuropathy, depression, who is seen in cardiac consultation for chief complaint of dyspnea. - she has acute on chronic heart failure with preserved ejection fraction in the setting of non ST elevation myocardial infarction, hypertensive urgency, and possible cellulitis and/or pneumonia. - Agree with Lasix 40 mg IV q.12 hours with careful monitoring of renal function and electrolytes. - Improve blood pressure control with diuresis and with addition of metoprolol tartrate 25 mg q.6 hours, given severe elevation of blood pressure on presentation at 197/132. - given her presenting tachycardia and dyspnea, with atypical chest pain, obtain D-dimer. - Obtain lower extremity venous Doppler in the setting of her recent asymmetric left leg edema, erythema, and warmth, with possible cellulitis. - Pending results of the D-dimer and lower extremity Doppler, and pending improvement in her marked orthopnea, consider CTA of the chest PE protocol. - She needs reduction of her outpatient alcohol consumption of 3 drinks of vodka daily. Monitor for alcohol withdrawal. - Obtain echo to evaluate cardiac structure and function. (2) NSTEMI (non-ST elevated myocardial infarction): Code(s): I21.4 - Non-ST elevation (NSTEMI) myocardial infarction Status: Acute Assessment and Plan: - She has non ST elevation myocardial infarction in the setting of acute on chronic heart failure with preserved ejection fraction, hypertensive urgency, and possible cellulitis and/or pneumonia. - troponin I has initially peaked at 1.25 and will continue to trend troponin I to confirm the peak. - patient reports occasional left central chest pain at rest in recent days, with chest pain currently resolved. - EKG without evidence of acute injury. - She was on aspirin and Plavix as an outpatient for unclear reasons and will continue aspirin and Plavix. - Begin intravenous heparin infusion for 48 hours. - Obtain repeat EKG. - Obtain fasting lipid panel. - Given her non ST elevation myocardial infarction, increased rosuvastatin to 20 mg nightly. - Pending improvement of her marked orthopnea, consider left heart catheterization in the coming days for definitive evaluation of coronary artery disease. (3) Hypertensive urgency: Code(s): I16.0 - Hypertensive urgency Status: Acute Assessment and Plan: - Improve blood pressure control with diuresis and with addition of metoprolol tartrate 25 mg q.6 hours, given severe elevation of blood pressure on presentation at 197/132. - Monitor improving blood pressure and adjust medications as needed. (4) Elevated white blood cell count: Code(s): D72.829 - Elevated white blood cell count, unspecified Status: Acute Assessment and Plan: - She had elevated white blood count on presentation in the setting of possible cellulitis with asymmetric left leg edema, erythema, and warmth. - antibiotic therapy for possible cellulitis and possible pneumonia given cough and abnormal chest x-ray as per primary service. History of Present Illness History of Present Illness Consult date/time: 09/30/20 16:44 Patient is a 74-year-old woman with history of congestive heart failure, hypertension, hyperlipidemia, former tobacco dependence (40 pack year, quit 9 years ago), obstructive sleep apnea (on CPAP), COPD, pulmonary hypertension, COVID-19 (February 28, 2020), alcohol dependence (3 shots of vodka daily), ulcerative colitis, peripheral neurop
--- NOTE | 2020-09-30 17:29 | ECG_ITS ---
Measurements Intervals [place] Rate: 74 P: 71 [place]: 167 QRS: 96 QRSD: 97 T: 104 QT: 400 QTc: 446 Interpretive Statements SINUS RHYTHM RIGHT AXIS DEVIATION BORDERLINE R WAVE PROGRESSION, ANTERIOR LEADS BORDERLINE T WAVE ABNORMALITY- ANT/HIGH LAT LEADS BASELINE ARTIFACT- I, II, III, AVR, AVL, AVF, V1-V6 BORDERLINE ECG Electronically Signed On 10-01-2020 6:43:27 CDT by Brian Anderson D.O.
[2020-09-30 18:50] LABS: Basophils Percent Auto 0.2 % (0.2-1.2); Hemoglobin 11.3 g/dL (12.0-15.0); Immature Granulocyte Absolute 0.03 K/mm3 (0.00-0.031); Immature Granulocyte Percent A 0.3 % (0-0.5); Lymphocytes Absolute Auto 0.79 K/mm3 (0.9-3.2); Lymphocytes Percent Auto 8.4 % (18.3-44.2); Mean Corpuscular HGB Conc 30.5 g/dl (32-36); Mean Corpuscular Hemoglobin 29.5 pg (26-34); Mean Corpuscular Volume 96.6 fl (80-100); Mean Platelet Volume 10.4 fl (7.4-10.4); Monocytes Absolute Auto 0.5 K/mm3 (0.1-0.6); Monocytes Percent Auto 5.7 % (2.6-8.5); Neutrophils Absolute Auto 8.1 K/mm3 (1.3-6.7); Neutrophils Percent Auto 85.4 % (45.5-73.1); Platelet Count Result 151 k/mm3 (150-375); Red Blood Count 3.83 M/mm3 (4.2-5.4); Red Cell Distribution Width 15.1 % (11.5-14.5); White Blood Count 9.5 K/mm3 (4.5-10.0)
[2020-09-30] MEDS: ASPIRIN 81 MG CHEWABLE TABLET 324 MG PO (18:51)
[2020-09-30] MEDS: POTASSIUM CHLORIDE 20 MEQ PACKET (FOR LIQUID) PO (18:51)
[2020-09-30] MEDS: METOPROLOL TARTRATE 25 MG TABLET PO ×2 (18:52→23:55)
[2020-09-30 19:13] LABS: INR 1.1; Prothrombin Time 14.2 Seconds (11.1-14.7)
[2020-09-30 19:14] LABS: Partial Thromboplastin Time 34.2 SECONDS (22.3-36.8)
[2020-09-30] MEDS: ALBUTEROL SULFATE NEB 2.5 MG/3 ML INH INHALATION (20:51)
[2020-09-30] MEDS: ROSUVASTATIN 10 MG TABLET 20 MG PO (21:43)
[2020-09-30] MEDS: diphenhydrAMINE HCl CAP 25 MG CAPSULE PO (21:44)
[2020-09-30] MEDS: MELATONIN 5 MG TABLET 10 MG PO (21:44)
[2020-09-30] MEDS: PRAMIPEXOLE 1 MG TABLET PO (21:54)
[2020-09-30] MEDS: HEPARIN SOD/D5W 100 UNITS/ML 25,000 UNITS/250 ML BAG 9 UNITS IV CONT (23:07)
[2020-10-01] VITALS (30 sets, daily range): BP systolic 110–129; BP diastolic 57–95; PULSE 59–86; RESP 17–28; TEMP 36.6–36.9; O2SAT 90–97
--- NOTE | 2020-10-01 05:00 | ECG_ITS ---
Measurements Intervals [place] Rate: 66 P: 72 [place]: 169 QRS: 76 QRSD: 102 T: 99 QT: 422 QTc: 444 Interpretive Statements SINUS RHYTHM LOW QRS VOLTAGE- DIFFUSE LEADS POOR R WAVE PROGRESSION, ANTERIOR LEADS BORDERLINE T WAVE ABNORMALITY- ANT/HIGH LAT LEADS BASELINE WANDER- V5-V6 BORDERLINE ECG Electronically Signed On 10-01-2020 15:12:09 CDT by Brian Anderson D.O.
[2020-10-01 05:08] LABS: Basophils Percent Auto 0.4 % (0.2-1.2); Eosinophils Percent Auto 0.4 % (0-4.4); Hemoglobin 10.7 g/dL (12.0-15.0); Immature Granulocyte Absolute 0.03 K/mm3 (0.00-0.031); Immature Granulocyte Percent A 0.4 % (0-0.5); Lymphocytes Absolute Auto 0.87 K/mm3 (0.9-3.2); Lymphocytes Percent Auto 11.2 % (18.3-44.2); Mean Corpuscular HGB Conc 29.7 g/dl (32-36); Mean Corpuscular Hemoglobin 29.6 pg (26-34); Mean Corpuscular Volume 99.7 fl (80-100); Mean Platelet Volume 10.9 fl (7.4-10.4); Monocytes Absolute Auto 0.6 K/mm3 (0.1-0.6); Monocytes Percent Auto 7.1 % (2.6-8.5); Neutrophils Absolute Auto 6.3 K/mm3 (1.3-6.7); Neutrophils Percent Auto 80.5 % (45.5-73.1); Platelet Count Result 147 k/mm3 (150-375); Red Blood Count 3.61 M/mm3 (4.2-5.4); Red Cell Distribution Width 15.1 % (11.5-14.5); White Blood Count 7.8 K/mm3 (4.5-10.0)
[2020-10-01 05:16] LABS: Partial Thromboplastin Time 42.5 SECONDS (22.3-36.8)
[2020-10-01 05:23] LABS: Alanine Aminotransferase 19 U/L (4-35); Albumin Level 3.6 g/dL (3.5-5.1); Alkaline Phosphatase 60 U/L (38-126); Anion Gap 5 mmol/L (8-16); Aspartate Amino Transferase 68 U/L (14-36); Bilirubin,Total 2.3 mg/dL (0.2-1.3); Blood Urea Nitrogen 18 mg/dL (7-17); CRP 3.7 mg/dL (<1.0); Calcium 9.2 mg/dL (8.4-10.2); Carbon Dioxide 34 mmol/L (22-30); Chloride 101 mmol/L (98-107); Cholesterol 200 mg/dL (0-200); Estimated CRCL calculation 69 ml/min; Estimated Glomerular Filt Rate > 60; Glucose 108 mg/dL (65-105); HDL Direct 77 mg/dL; Lactate Dehydrogenase 704 U/L (313-618); Magnesium 1.7 mg/dL (1.6-2.3); Potassium 3.6 mmol/L (3.4-5.0); Sodium 140 mmol/L (137-145); Triglycerides 93 mg/dL (<150)
[2020-10-01] MEDS: METOPROLOL TARTRATE 25 MG TABLET PO ×4 (05:30→23:32)
[2020-10-01] MEDS: HEPARIN SODIUM 5,000 UNITS/ML VIAL 4000 UNITS IV PUSH ×2 (05:30→12:11)
[2020-10-01 05:31] LABS: LDL Cholesterol Direct 81 mg/dL
--- NOTE | 2020-10-01 06:00 | ECHO_ITS ---
Patient Info Name: Ping Waller Age: 74 years : 1945 Gender: Female Ht: 64 in Wt: 251 lbs BSA: 2.33 m2 HR: 75 bpm BP: 135 / 83 mmHg Technical Quality: Poor, Good Exam Date: 10/01/2020 10:22 AM Exam Location: [facility] Patient Status: Inpatient Admit Date: 09/30/2020 Staff Ordering Physician: Naveen Rodriguez MD Beekeeper: Erica Song RDCS Attending Provider: Kirt Stevens MD Referring Physician: Micahel ECHEVERRIA; Exam Type: CA echo dop color flow w con Study Info Complete two-dimensional, color flow and Doppler transthoracic echocardiogram is performed with contrast to opacify the left ventricle and to improve the deliniation of the left ventricle endocardial borders. Contrast/Agitated Saline Contrast/Ag. Saline: Definity Amount: 4.00 ml Summary 1. Left ventricular chamber dimension is mildly enlarged. 2. Left ventricular systolic function is mildly reduced, estimated at 40-45%. 3. Left ventricular septal wall motion is abnormal with septal motion related to bundle branch block. 4. Right ventricular chamber dimension is mildly enlarged. 5. There is mild mitral valve regurgitation. 6. There is mild tricuspid valve regurgitation. 7. Mild pulmonary hypertension, estimated pulmonary arterial systolic pressure is 42 mmHg. Left Ventricle Left ventricular chamber dimension is mildly enlarged. Left ventricular systolic function is mildly reduced, estimated at 40-45%. There is no increased left ventricular wall thickness. Left ventricular septal wall motion is abnormal with septal motion related to bundle branch block. The left ventricular diastolic function is grade III diastolic dysfunction. Right Ventricle Right ventricular chamber dimension is mildly enlarged. Right ventricular systolic function is normal. Left Atria Left atrial chamber dimension is mildly enlarged. Right Atria Right atrial chamber dimension is normal. Aortic Valve The aortic valve is trileaflet. There is no aortic valve sclerosis. There is no aortic valve stenosis. There is no aortic valve regurgitation. Pulmonic Valve The pulmonic valve is normal. There is no pulmonic valve stenosis. There is no pulmonic regurgitation. Mitral Valve The mitral valve has normal leaflets. There is no mitral valve stenosis. There is mild mitral valve regurgitation. Tricuspid Valve The tricuspid valve leaflets are normal. There is no significant tricuspid valve stenosis. There is mild tricuspid valve regurgitation. Mild pulmonary hypertension, estimated pulmonary arterial systolic pressure is 42 mmHg. Pericardium/Pleural The pericardium appears normal. There is no pericardial effusion. Aorta The aortic root size at the sinus of Valsalva is normal. The prox ascending aorta size is normal. Left Ventricular Outflow Tract Name Value Normal LVOT 2D LVOT Diameter 2.17 cm LVOT Doppler LVOT Peak Gradient 4 mmHg LVOT Mean Gradient 2 mmHg LVOT VTI 18.18 cm LVO
[2020-10-01] MEDS: FLUTICASONE/UMECLIDIN/VILANTER 100-62.5-25 MCG ELLIPTA 1 PUFF INHALATION (08:01)
[2020-10-01] MEDS: SERTRALINE HCL 50 MG TABLET 100 MG PO (08:22)
[2020-10-01] MEDS: CLOPIDOGREL BISULFATE 75 MG TABLET PO (08:23)
[2020-10-01] MEDS: GABAPENTIN 300 MG CAPSULE PO ×3 (08:23→17:10)
[2020-10-01] MEDS: CHOLECALCIFEROL 1,000 UNITS TABLET 2000 UNITS PO (08:23)
[2020-10-01] MEDS: LOPERAMIDE HCL 2 MG CAPSULE 4 MG PO (08:23)
[2020-10-01] MEDS: ASPIRIN 81 MG ENTERIC TABLET PO (08:23)
[2020-10-01] MEDS: FUROSEMIDE INJ 40 MG/4 ML VIAL IV PUSH ×2 (08:24→22:12)
[2020-10-01] MEDS: POTASSIUM CHLORIDE 20 MEQ PACKET (FOR LIQUID) PO (08:24)
--- NOTE | 2020-10-01 10:27 | PM.PNCARD ---
Progress Note: A&P Assessment and Plan (1) CHF exacerbation: Code(s): I50.9 - Heart failure, unspecified Status: Acute Assessment and Plan: Patient is a 74-year-old woman with history of congestive heart failure (HF-pEF), hypertension, hyperlipidemia, former tobacco dependence (40 pack year, quit 9 years ago), obstructive sleep apnea (on CPAP), COPD, pulmonary hypertension, COVID-19 (February 28, 2020), alcohol dependence (3 shots of vodka daily), ulcerative colitis, peripheral neuropathy, depression, who is seen in cardiac consultation for chief complaint of dyspnea. - she has acute on chronic heart failure with preserved ejection fraction in the setting of non ST elevation myocardial infarction, hypertensive urgency, and possible cellulitis and/or pneumonia. - Agree with Lasix 40 mg IV q.12 hours with careful monitoring of renal function and electrolytes. - Improve blood pressure control with diuresis and with addition of metoprolol tartrate 25 mg q.6 hours, given severe elevation of blood pressure on presentation at 197/132. - given her presenting tachycardia and dyspnea, with atypical chest pain, obtain D-dimer. - Obtain lower extremity venous Doppler in the setting of her recent asymmetric left leg edema, erythema, and warmth, with possible cellulitis. - Pending results of the D-dimer and lower extremity Doppler, and pending improvement in her marked orthopnea, consider CTA of the chest PE protocol. - She needs reduction of her outpatient alcohol consumption of 3 drinks of vodka daily. Monitor for alcohol withdrawal. - Obtain echo to evaluate cardiac structure and function. (2) NSTEMI (non-ST elevated myocardial infarction): Code(s): I21.4 - Non-ST elevation (NSTEMI) myocardial infarction Status: Acute Assessment and Plan: - She has non ST elevation myocardial infarction in the setting of acute on chronic heart failure with preserved ejection fraction, hypertensive urgency, and possible cellulitis and/or pneumonia. - troponin I has initially peaked at 1.25 and will continue to trend troponin I to confirm the peak. - patient reports occasional left central chest pain at rest in recent days, with chest pain currently resolved. - EKG without evidence of acute injury. - She was on aspirin and Plavix as an outpatient for unclear reasons and will continue aspirin and Plavix. - Begin intravenous heparin infusion for 48 hours. - Obtain repeat EKG. - Obtain fasting lipid panel. - Given her non ST elevation myocardial infarction, increased rosuvastatin to 20 mg nightly. - Pending improvement of her marked orthopnea, consider left heart catheterization in the coming days for definitive evaluation of coronary artery disease. (3) Hypertensive urgency: Code(s): I16.0 - Hypertensive urgency Status: Acute Assessment and Plan: - Improve blood pressure control with diuresis and with addition of metoprolol tartrate 25 mg q.6 hours, given severe elevation of blood pressure on presentation at 197/132. - Monitor improving blood pressure and adjust medications as needed. (4) Elevated white blood cell count: Code(s): D72.829 - Elevated white blood cell count, unspecified Status: Acute Assessment and Plan: - She had elevated white blood count on presentation in the setting of possible cellulitis with asymmetric left leg edema, erythema, and warmth. - antibiotic therapy for possible cellulitis and possible pneumonia given cough and abnormal chest x-ray as per primary service. Subjective Date/time seen: 10/01/20 10:27 she feels slightly better today, still with shortness breath currently is on BiPAP, no chest pain Exam Narrative: Exam Narrative: General: morbidly obese. HEENT: Normocephalic, atraumatic. PERRL, EOMI. Sclerae anicteric. Oral mucosa moist. Oropharynx clear. Neck: Supple. Respiratory: Lungs with diminished breath sounds throughout and mild wheezing. Cardiovascular: Regular
--- NOTE | 2020-10-01 11:57 | PHAR ---
HOME MEDICATION VERIFIED BY PHARMACY: BALSALAZIDE 750MG CAPSULES TAKE 3 CAPSULES PO BID [id number]
[2020-10-01 12:00] LABS: Partial Thromboplastin Time 54.3 SECONDS (22.3-36.8)
--- NOTE | 2020-10-01 12:02 | PC.NURSE ---
Pt brought in home med balsalazide 750 mg. Verified with our pharmacy.
--- NOTE | 2020-10-01 13:53 | PM.IMPN ---
Progress Note: A&P Assessment and Plan (1) Acute and chronic respiratory failure: Qualifiers: Respiratory failure complication: hypoxia and hypercapnia Qualified Code(s): J96.21 - Acute and chronic respiratory failure with hypoxia; J96.22 - Acute and chronic respiratory failure with hypercapnia Code(s): J96.20 - Acute and chronic respiratory failure, unspecified whether with hypoxia or hypercapnia Status: Acute Assessment and Plan: Likely due to chf supreimposed on copd 10/01 ABG ordered Wean bipap as tolerated Continue diuresis (2) CHF exacerbation: Qualifiers: Heart failure type: diastolic Qualified Code(s): I50.33 - Acute on chronic diastolic (congestive) heart failure Code(s): I50.9 - Heart failure, unspecified Status: Acute Assessment and Plan: Possibly due to ACS Continue diuresis (3) Elevated troponin level: Code(s): R77.8 - Other specified abnormalities of plasma proteins Status: Acute Assessment and Plan: C/w NSTEMI Cardiology considering [facility] 10/03 (4) Hyperglycemia: Code(s): R73.9 - Hyperglycemia, unspecified Status: Acute Assessment and Plan: Blood sugars noted 10/01 Continue glucose management (5) Benign hypertension: Code(s): I10 - Essential (primary) hypertension Status: Acute Assessment and Plan: BP noted 10/01 Continue to monitor on current regimen (6) Mixed hyperlipidemia: Code(s): E78.2 - Mixed hyperlipidemia Status: Acute (7) Chronic obstructive pulmonary disease: Qualifiers: COPD type: unspecified COPD Qualified Code(s): J44.9 - Chronic obstructive pulmonary disease, unspecified Code(s): J44.9 - Chronic obstructive pulmonary disease, unspecified Status: Acute (8) Left leg cellulitis: Code(s): L03.116 - Cellulitis of left lower limb Status: Acute Assessment and Plan: LLE appears much better today Infection vs venous stasis Day 1 doxycycline (9) Obstructive sleep apnea syndrome in adult: Code(s): G47.33 - Obstructive sleep apnea (adult) (pediatric) Status: Acute Assessment and Plan: BiPAP Subjective Date/time seen: 10/01/20 13:53 Interval history: ED 09/30 with increase SOB, cough, elevated troponin, chest pressure. Wears 4 L oxygen at home. Does not use her CPAP regularly for TRAVIS. 10/01: SOB when off bipap for over 10 min. No further chest pressure. [place] with minimal exertion. Swelling in legs less. Review of Systems Review of Systems: All systems reviewed & are unremarkable except as noted in HPI and below Exam Narrative: Exam Narrative: HEENT: PERRL, sclerae nonicteric, pharyngeal mucosa pink and intact NECK: No JVD, adenopathy, or thyromegaly CHEST: Clear to auscultation. Normal effort. HEART: NL S1/S2, regular, no murmur ABDOMEN: BS+, soft, nontender, no mass, no bruits EXTREMITIES: No cyanosis, edema, or clubbing NEUROLOGIC: CN intact and symmetric to inspection. MUSCULOSKELETAL: Tone and strength symmetric. PSYCH: Alert. Oriented to person, place, and time. Objective Data Vital Signs Vital Signs: Vital Signs - 24 hr 09/30/20 14:00 09/30/20 16:00 09/30/20 16:33 Temperature 97.2 F L 97 F L Pulse Rate 90 100 88 Respiratory Rate 28 H 25 H 25 H Blood Pressure 165/101 H 150/95 H Pulse Oximetry 94 96 95 09/30/20 18:00 09/30/20 18:52 09/30/20 20:00 Temperature 98.8 F Pulse Rate 88 86 84 Respiratory Rate 30 H Blood Pressure 124/77 Pulse Oximetry 97 09/30/20 20:48 09/30/20 22:00 09/30/20 23:51 Temperature 98.7 F Pulse Rate 71 79 68 Respiratory Rate 20 24 H Blood Pressure 126/80 Pulse Oximetry 95 97 09/30/20 23:55 10/01/20 00:00 10/01/20 00:51 Temperature Pulse Rate 66 74 70 Respiratory Rate 18 Blood Pressure Pulse Oximetry 92 94 10/01/20 01:48 10/01/20 03:21 10/01/20 03:31 Temperature Pulse Rate 69 69 Re
[2020-10-01 14:59] LABS: Alveolar/Arterial O2 Gradient 83.8 mmHg; Fractional Inspired Oxygen 30 %; HCO3 ABG 34.3 mEq/l (22.0-26.0); Oxygen Saturation ABG 92.6 % (95.0-100.0); Oxyhemoglobin 91.7 % THb (90.0-100.0); PCO2 ABG 55.3 mmHg (35.0-45.0); PO2 ABG 65.1 mmHg (80.0-100.0); PO2 FiO2 Ratio Arterial Blood 2.17 %; Total Hemoglobin 12.4 g/dL (12.0-18.0)
[2020-10-01 15:01] LABS: Device NON-INVASIVE VENT; Modified Allen's Test Pass; Non-Invasive Inspiratory Pressure 14 CMH2O; Non-Invasive Vent Rate 4 /MIN; Site Drawn RIGHT RADIAL
[2020-10-01 15:02] LABS: Non-Invasive Expiratory Pressure 8 CMH2O
[2020-10-01] MEDS: HEPARIN SOD/D5W 100 UNITS/ML 25,000 UNITS/250 ML BAG 15 UNITS IV CONT (20:24)
[2020-10-01] MEDS: MELATONIN 5 MG TABLET 10 MG PO (22:13)
[2020-10-01] MEDS: PRAMIPEXOLE 1 MG TABLET PO (22:13)
[2020-10-01] MEDS: ROSUVASTATIN 10 MG TABLET 20 MG PO (22:13)
[2020-10-01] MEDS: diphenhydrAMINE HCl CAP 25 MG CAPSULE PO (22:13)
[2020-10-02] VITALS (23 sets, daily range): BP systolic 94–122; BP diastolic 54–68; PULSE 52–78; RESP 17–24; TEMP 36.5–36.9; O2SAT 91–100
[2020-10-02 02:17] LABS: Partial Thromboplastin Time 64.1 SECONDS (22.3-36.8)
[2020-10-02] MEDS: HEPARIN SODIUM 5,000 UNITS/ML VIAL 3000 UNITS IV PUSH ×2 (02:29→23:01)
[2020-10-02 05:21] LABS: Hematocrit 32.2 % (37.0-47.0); Mean Corpuscular HGB Conc 31.1 g/dl (32-36); Mean Corpuscular Hemoglobin 30.6 pg (26-34); Mean Corpuscular Volume 98.5 fl (80-100); Mean Platelet Volume 11.2 fl (7.4-10.4); Platelet Count Result 117 k/mm3 (150-375); Red Blood Count 3.27 M/mm3 (4.2-5.4); Red Cell Distribution Width 15.1 % (11.5-14.5); White Blood Count 6.6 K/mm3 (4.5-10.0)
[2020-10-02 05:39] LABS: Anion Gap 7 mmol/L (8-16); Blood Urea Nitrogen 25 mg/dL (7-17); Calcium 8.8 mg/dL (8.4-10.2); Carbon Dioxide 33 mmol/L (22-30); Chloride 97 mmol/L (98-107); Estimated CRCL calculation 78 ml/min; Estimated Glomerular Filt Rate > 60; Glucose 108 mg/dL (65-105); Potassium 3.4 mmol/L (3.4-5.0); Sodium 137 mmol/L (137-145)
[2020-10-02] MEDS: METOPROLOL TARTRATE 25 MG TABLET PO ×4 (05:50→23:00)
[2020-10-02] MEDS: CHOLECALCIFEROL 1,000 UNITS TABLET 2000 UNITS PO (09:11)
[2020-10-02] MEDS: FUROSEMIDE INJ 40 MG/4 ML VIAL IV PUSH ×2 (09:11→20:15)
[2020-10-02] MEDS: ASPIRIN 81 MG ENTERIC TABLET PO (09:11)
[2020-10-02] MEDS: CLOPIDOGREL BISULFATE 75 MG TABLET PO (09:11)
[2020-10-02] MEDS: SERTRALINE HCL 50 MG TABLET 100 MG PO (09:12)
[2020-10-02] MEDS: GABAPENTIN 300 MG CAPSULE PO ×3 (09:12→18:00)
[2020-10-02 09:34] LABS: Partial Thromboplastin Time 119.9 SECONDS (22.3-36.8)
[2020-10-02] MEDS: HEPARIN SOD/D5W 100 UNITS/ML 25,000 UNITS/250 ML BAG 15 UNITS IV CONT (09:52)
[2020-10-02] MEDS: POTASSIUM CHLORIDE 20 MEQ PACKET (FOR LIQUID) 40 MEQ PO ×2 (09:54→18:00)
--- NOTE | 2020-10-02 11:33 | PM.IMPN ---
Progress Note: A&P Assessment and Plan (1) Acute and chronic respiratory failure: Qualifiers: Respiratory failure complication: hypoxia and hypercapnia Qualified Code(s): J96.21 - Acute and chronic respiratory failure with hypoxia; J96.22 - Acute and chronic respiratory failure with hypercapnia Code(s): J96.20 - Acute and chronic respiratory failure, unspecified whether with hypoxia or hypercapnia Status: Acute Assessment and Plan: Likely due to chf supreimposed on copd 10/01 ABG ordered Wean bipap as tolerated Continue diuresis (2) CHF exacerbation: Qualifiers: Heart failure type: diastolic Qualified Code(s): I50.33 - Acute on chronic diastolic (congestive) heart failure Code(s): I50.9 - Heart failure, unspecified Status: Acute Assessment and Plan: Possibly due to ACS Continue diuresis (3) Elevated troponin level: Code(s): R77.8 - Other specified abnormalities of plasma proteins Status: Acute Assessment and Plan: C/w NSTEMI On heparin Platelet count decreased to 117K, repeat this PM. Cardiology considering [facility] 10/03 (4) Hyperglycemia: Code(s): R73.9 - Hyperglycemia, unspecified Status: Acute Assessment and Plan: Blood sugars noted 10/02 Continue glucose management (5) Benign hypertension: Code(s): I10 - Essential (primary) hypertension Status: Acute Assessment and Plan: BP noted 10/02 Continue to monitor on current regimen (6) Mixed hyperlipidemia: Code(s): E78.2 - Mixed hyperlipidemia Status: Acute (7) Chronic obstructive pulmonary disease: Qualifiers: COPD type: unspecified COPD Qualified Code(s): J44.9 - Chronic obstructive pulmonary disease, unspecified Code(s): J44.9 - Chronic obstructive pulmonary disease, unspecified Status: Acute Assessment and Plan: Main issue seems to be CHF at this point. (8) Left leg cellulitis: Code(s): L03.116 - Cellulitis of left lower limb Status: Acute Assessment and Plan: LLE appears much better today Infection vs venous stasis Day 2 doxycycline and will D/c. (9) Obstructive sleep apnea syndrome in adult: Code(s): G47.33 - Obstructive sleep apnea (adult) (pediatric) Status: Acute Assessment and Plan: BiPAP Subjective Date/time seen: 10/02/20 11:33 Interval history: ED 09/30 with increase SOB, cough, elevated troponin, chest pressure. Wears 4 L oxygen at home. Does not use her CPAP regularly for TRAVIS. 10/02: Still off bipap only to eat. But feels much better. Denied pain. Tolerating diet. Leg swelling resolved. Review of Systems Review of Systems: All systems reviewed & are unremarkable except as noted in HPI and below Exam Narrative: Exam Narrative: HEENT: PERRL, sclerae nonicteric, pharyngeal mucosa pink and intact NECK: No JVD, adenopathy, or thyromegaly CHEST: Clear to auscultation. Normal effort. HEART: NL S1/S2, regular, no murmur ABDOMEN: BS+, soft, nontender, no mass, no bruits EXTREMITIES: No cyanosis, edema, or clubbing NEUROLOGIC: CN intact and symmetric to inspection. MUSCULOSKELETAL: Tone and strength symmetric. PSYCH: Alert. Oriented to person, place, and time. Objective Data Vital Signs Vital Signs: Vital Signs - 24 hr 10/01/20 11:35 10/01/20 11:41 10/01/20 12:00 Temperature 98.3 F Pulse Rate 68 86 Respiratory Rate 28 H Blood Pressure 129/78 Pulse Oximetry 97 92 10/01/20 12:08 10/01/20 13:24 10/01/20 13:56 Temperature Pulse Rate 78 79 72 Respiratory Rate 26 H Blood Pressure Pulse Oximetry 90 10/01/20 15:34 10/01/20 16:00 10/01/20 17:10 Temperature 98 F Pulse Rate 73 79 Respiratory Rate 18 Blood Pressure 110/60 Pulse Oximetry 92 94 10/01/20 17:28 10/01/20 18:42 10/01/20 18:57 Temperature 98.1 F Pulse Rate 77 78 65 Respiratory Rate 20 25 H Blood Pressure 111/69 Pu
--- NOTE | 2020-10-02 12:28 | PM.PNCARD ---
Progress Note: A&P Assessment and Plan (1) CHF exacerbation: Qualifiers: Heart failure type: diastolic Qualified Code(s): I50.33 - Acute on chronic diastolic (congestive) heart failure Code(s): I50.9 - Heart failure, unspecified Status: Acute Assessment and Plan: Patient is a 74-year-old woman with history of congestive heart failure (HF-pEF), hypertension, hyperlipidemia, former tobacco dependence (40 pack year, quit 9 years ago), obstructive sleep apnea (on CPAP), COPD, pulmonary hypertension, COVID-19 (February 28, 2020), alcohol dependence (3 shots of vodka daily), ulcerative colitis, peripheral neuropathy, depression, who is seen in cardiac consultation for chief complaint of dyspnea. - she has acute on chronic heart failure with preserved ejection fraction in the setting of non ST elevation myocardial infarction, hypertensive urgency, and possible cellulitis and/or pneumonia. - Agree with Lasix 40 mg IV q.12 hours with careful monitoring of renal function and electrolytes. - Improve blood pressure control with diuresis and with addition of metoprolol tartrate 25 mg q.6 hours, given severe elevation of blood pressure on presentation at 197/132. - given her presenting tachycardia and dyspnea, with atypical chest pain, obtain D-dimer. - Obtain lower extremity venous Doppler in the setting of her recent asymmetric left leg edema, erythema, and warmth, with possible cellulitis. - Pending results of the D-dimer and lower extremity Doppler, and pending improvement in her marked orthopnea, consider CTA of the chest PE protocol. . (2) NSTEMI (non-ST elevated myocardial infarction): Code(s): I21.4 - Non-ST elevation (NSTEMI) myocardial infarction Status: Acute Assessment and Plan: - She has non ST elevation myocardial infarction in the setting of acute on chronic heart failure with preserved ejection fraction, hypertensive urgency, and possible cellulitis and/or pneumonia. - troponin I has initially peaked at 1.25 and will continue to trend troponin I to confirm the peak. - patient reports occasional left central chest pain at rest in recent days, with chest pain currently resolved. - EKG without evidence of acute injury. - She was on aspirin and Plavix as an outpatient for unclear reasons and will continue aspirin and Plavix. - Begin intravenous heparin infusion for 48 hours. - Obtain repeat EKG. - Obtain fasting lipid panel. - Given her non ST elevation myocardial infarction, increased rosuvastatin to 20 mg nightly. - Pending improvement of her marked orthopnea, consider left heart catheterization, possibly tomorrow, for definitive evaluation of coronary artery disease. (3) Hypertensive urgency: Code(s): I16.0 - Hypertensive urgency Status: Acute Assessment and Plan: - Improve blood pressure control with diuresis and with addition of metoprolol tartrate 25 mg q.6 hours, given severe elevation of blood pressure on presentation at 197/132. - Monitor improving blood pressure and adjust medications as needed. (4) Elevated white blood cell count: Code(s): D72.829 - Elevated white blood cell count, unspecified Status: Acute Assessment and Plan: - She had elevated white blood count on presentation in the setting of possible cellulitis with asymmetric left leg edema, erythema, and warmth. - antibiotic therapy for possible cellulitis and possible pneumonia given cough and abnormal chest x-ray as per primary service. Subjective Date/time seen: 10/02/20 12:28 she feels better today, shortness breath is better, no chest pain. Exam Narrative: Exam Narrative: General: morbidly obese. HEENT: Normocephalic, atraumatic. PERRL, EOMI. Sclerae anicteric. Oral mucosa moist. Oropharynx clear. Neck: Supple. Respiratory: Lungs with diminished breath sounds throughout and mild wheezing. Cardiovascular: Regular rate and rhythm with S1-S2. No murmur, rub, or gallop. Gastroin
[2020-10-02] MEDS: FLUTICASONE/UMECLIDIN/VILANTER 100-62.5-25 MCG ELLIPTA 1 PUFF INHALATION (15:45)
[2020-10-02 15:47] LABS: Partial Thromboplastin Time 74.4 SECONDS (22.3-36.8)
[2020-10-02 16:24] LABS: Mean Platelet Volume 10.8 fl (7.4-10.4); Platelet Count Result 129 k/mm3 (150-375)
[2020-10-02] MEDS: MELATONIN 5 MG TABLET 10 MG PO (20:15)
[2020-10-02] MEDS: diphenhydrAMINE HCl CAP 25 MG CAPSULE PO (20:15)
[2020-10-02] MEDS: ROSUVASTATIN 10 MG TABLET 20 MG PO (20:16)
[2020-10-02] MEDS: PRAMIPEXOLE 1 MG TABLET PO (20:16)
[2020-10-02 22:49] LABS: Partial Thromboplastin Time 65.8 SECONDS (22.3-36.8)
[2020-10-03] VITALS (30 sets, daily range): BP systolic 94–127; BP diastolic 43–79; PULSE 52–73; RESP 15–24; TEMP 36.2–37; O2SAT 92–99
[2020-10-03] MEDS: HEPARIN SOD/D5W 100 UNITS/ML 25,000 UNITS/250 ML BAG 17 UNITS IV CONT (03:18)
[2020-10-03] MEDS: METOPROLOL TARTRATE 25 MG TABLET PO ×3 (05:10→18:34)
[2020-10-03 05:13] LABS: Hematocrit 35.8 % (37.0-47.0); Hemoglobin 10.6 g/dL (12.0-15.0); Immature Platelet Fraction Pct 8.8 % (0.9-11.2); Mean Corpuscular HGB Conc 29.6 g/dl (32-36); Mean Corpuscular Hemoglobin 29.9 pg (26-34); Mean Corpuscular Volume 100.8 fl (80-100); Mean Platelet Volume 10.7 fl (7.4-10.4); Platelet Count Result 128 k/mm3 (150-375); Red Blood Count 3.55 M/mm3 (4.2-5.4); Red Cell Distribution Width 14.9 % (11.5-14.5); White Blood Count 6.4 K/mm3 (4.5-10.0)
[2020-10-03 05:33] LABS: Anion Gap 4 mmol/L (8-16); Blood Urea Nitrogen 18 mg/dL (7-17); Calcium 9.2 mg/dL (8.4-10.2); Carbon Dioxide 39 mmol/L (22-30); Chloride 94 mmol/L (98-107); Estimated CRCL calculation 78 ml/min; Estimated Glomerular Filt Rate > 60; Glucose 108 mg/dL (65-105); Magnesium 1.7 mg/dL (1.6-2.3); Potassium 3.9 mmol/L (3.4-5.0); Sodium 137 mmol/L (137-145)
[2020-10-03] MEDS: FLUTICASONE/UMECLIDIN/VILANTER 100-62.5-25 MCG ELLIPTA 1 PUFF INHALATION (08:07)
[2020-10-03] MEDS: GABAPENTIN 300 MG CAPSULE PO ×3 (08:18→17:00)
[2020-10-03] MEDS: ASPIRIN 81 MG ENTERIC TABLET PO (08:19)
[2020-10-03] MEDS: CHOLECALCIFEROL 1,000 UNITS TABLET 2000 UNITS PO (08:19)
[2020-10-03] MEDS: SERTRALINE HCL 50 MG TABLET 100 MG PO (08:19)
[2020-10-03] MEDS: POTASSIUM CHLORIDE 20 MEQ PACKET (FOR LIQUID) 40 MEQ PO ×2 (08:19→18:35)
[2020-10-03] MEDS: CLOPIDOGREL BISULFATE 75 MG TABLET PO (08:19)
--- NOTE | 2020-10-03 08:50 | PM.PNCARD ---
Progress Note: A&P Assessment and Plan (1) NSTEMI (non-ST elevated myocardial infarction): Code(s): I21.4 - Non-ST elevation (NSTEMI) myocardial infarction Status: Acute Assessment and Plan: - She has non ST elevation myocardial infarction in the setting of acute on chronic heart failure with preserved ejection fraction, hypertensive urgency, and possible cellulitis and/or pneumonia. - troponin I has initially peaked at 1.25 - will plan [facility] today as her respiratory status better - Continue IV heparin till then - continue ASA and plavix as per her outpatient regimen (2) CHF exacerbation: Qualifiers: Heart failure type: diastolic Qualified Code(s): I50.33 - Acute on chronic diastolic (congestive) heart failure Code(s): I50.9 - Heart failure, unspecified Status: Acute Assessment and Plan: Patient is a 74-year-old woman with history of congestive heart failure (HF-pEF), hypertension, hyperlipidemia, former tobacco dependence (40 pack year, quit 9 years ago), obstructive sleep apnea (on CPAP), COPD, pulmonary hypertension, COVID-19 (February 28, 2020), alcohol dependence (3 shots of vodka daily), ulcerative colitis, peripheral neuropathy, depression, who is seen in cardiac consultation for chief complaint of dyspnea. - better compensated. Continue IV lasix. Will follow filling pressures at time of cath and adjust diuretics accordingly . (3) Hypertensive urgency: Code(s): I16.0 - Hypertensive urgency Status: Acute Assessment and Plan: -well controlled. Metoprolol started this admission. Consider decrease dose given bradycardia Subjective Date/time seen: 10/03/20 08:50 She feels much better compared to admission. Shortness of breath and leg edema has improved Review of Systems Review of Systems: All systems reviewed & are unremarkable except as noted in HPI and below Exam Narrative: Exam Narrative: General: morbidly obese. HEENT: Normocephalic, atraumatic. PERRL, EOMI. Sclerae anicteric. Oral mucosa moist. Oropharynx clear. Neck: Supple. Respiratory: Lungs with diminished breath sounds throughout and mild wheezing. Cardiovascular: Regular rate and rhythm with S1-S2. No murmur, rub, or gallop. Gastrointestinal: Abdomen is soft, nontender, and nondistended with positive bowel sounds. No organomegaly. Skin: Warm and dry. No rash or lesions on limited exam. Extremities: No cyanosis, clubbing. 1+ leg edema with mild erythema and warmth. Radial and pedal pulses intact. Neurological: Alert. Cranial nerves 2-12 are grossly intact. Speech is clear. No facial asymmetry. No gross focal deficits to casual conversation. Psychiatric: Pleasant and cooperative with normal mood and affect. Judgment and insight intact. Objective Data Vital Signs Vital Signs: Vital Signs - 24 hr 10/02/20 10:00 10/02/20 11:25 10/02/20 11:57 Temperature 36.8 C Pulse Rate 67 71 Respiratory Rate 17 Blood Pressure 116/60 Pulse Oximetry 94 94 10/02/20 12:00 10/02/20 12:29 10/02/20 14:00 Temperature Pulse Rate 67 66 64 Respiratory Rate Blood Pressure Pulse Oximetry 10/02/20 16:00 10/02/20 17:59 10/02/20 18:00 Temperature 36.5 C Pulse Rate 61 76 78 Respiratory Rate 19 Blood Pressure 122/54 L Pulse Oximetry 94 10/02/20 20:00 10/02/20 22:00 10/02/20 22:15 Temperature 36.9 C Pulse Rate 64 52 L 71 Respiratory Rate 20 23 H Blood Pressure 100/68 Pulse Oximetry 100 95 10/02/20 23:00 10/03/20 00:00 10/03/20 02:00 Temperature 37.0 C Pulse Rate 54 L 53 L 52 L Respiratory Rate 20 Blood Pressure 100/68 Pulse Oximetry 92 10/03/20 02:50 10/03/20 04:00 10/03/20 05:10 Temperature 37.0 C Pulse Rate 52 L 60 58 L Respiratory Rate 15 20 Blood Pressure 100/70 Pulse Oximetry 94 95 10/03/20 06:00 10/03/20 08:00 10/03/20 08:09 Temperature 36.7 C Pulse Rate 64 58 L Respiratory Rate 24 H Blood Pres
--- NOTE | 2020-10-03 11:17 | PM.IMPN ---
Progress Note: A&P Assessment and Plan (1) Acute and chronic respiratory failure: Qualifiers: Respiratory failure complication: hypoxia and hypercapnia Qualified Code(s): J96.21 - Acute and chronic respiratory failure with hypoxia; J96.22 - Acute and chronic respiratory failure with hypercapnia Code(s): J96.20 - Acute and chronic respiratory failure, unspecified whether with hypoxia or hypercapnia Status: Acute Assessment and Plan: secondary to COPD and CHF weaned off of BiPAP and now on nasal cannula. BiPAP at night this patient also has sleep apnea bronchodilators and diuretics last ABG and chest x-ray reviewed (2) CHF exacerbation: Qualifiers: Heart failure type: diastolic Qualified Code(s): I50.33 - Acute on chronic diastolic (congestive) heart failure Code(s): I50.9 - Heart failure, unspecified Status: Acute Assessment and Plan: - echocardiogram shows EF of 40-45% with septal wall abnormal motion and right ventricular enlargement, mild pulmonary hypertension - she has acute on chronic heart failure - she has been on Lasix b.i.d. but I will hold at this point due to patient going for cardiac catheterization and receiving contrast. she has minimal edema and is back to 4 L nasal cannula which is her home oxygen. - will resume Lasix after cardiac catheterization depending on renal function - bronchodilators - lower extremity Dopplers were negative for DVT . (3) Chronic obstructive pulmonary disease: Qualifiers: COPD type: unspecified COPD Qualified Code(s): J44.9 - Chronic obstructive pulmonary disease, unspecified Code(s): J44.9 - Chronic obstructive pulmonary disease, unspecified Status: Acute Assessment and Plan: continue bronchodilators (4) NSTEMI (non-ST elevated myocardial infarction): Code(s): I21.4 - Non-ST elevation (NSTEMI) myocardial infarction Status: Acute Assessment and Plan: - She has non ST elevation myocardial infarction in the setting of acute on chronic heart failure - currently on heparin infusion - continue aspirin and Plavix. - echo reviewed - cardiac catheterization is scheduled - continue statin (5) Hypertensive urgency: Code(s): I16.0 - Hypertensive urgency Status: Acute Assessment and Plan: - Improve blood pressure control with diuresis and with addition of metoprolol tartrate 25 mg q.6 hours - Monitor improving blood pressure and adjust medications as needed. (6) Left leg cellulitis: Code(s): L03.116 - Cellulitis of left lower limb Status: Acute Assessment and Plan: patient was treated with doxycycline and is improved (7) Hyperglycemia: Code(s): R73.9 - Hyperglycemia, unspecified Status: Acute (8) Obstructive sleep apnea syndrome in adult: Code(s): G47.33 - Obstructive sleep apnea (adult) (pediatric) Status: Acute Assessment and Plan: BiPAP at night. patient noncompliant with CPAP at home Subjective Date/time seen: 10/03/20 she states she is feeling better today as compared to yesterday. He is close to her baseline. 4 L nasal cannula oxygen at home. She has cough which is mostly dry. States her swelling in her legs is down and the redness of the left leg is also down.. She she denies any other complaint and review system for other system was negative Review of Systems Review of Systems: All systems reviewed & are unremarkable except as noted in HPI and below Exam Narrative: Exam Narrative: General: morbidly obese. HEENT: Normocephalic, atraumatic. PERRL, EOMI. Sclerae anicteric. Oral mucosa moist. Oropharynx clear. Neck: Supple. Respiratory: Lungs bibasilar crackles and bilateral occasional wheezing Cardiovascular: Regular rate and rhythm with S1-S2. No murmur, rub, or gallop. Gastrointestinal: Abdomen is soft, nontender, and nondistended with positive bowel
[2020-10-03 12:12] LABS: Partial Thromboplastin Time 72.6 SECONDS (22.3-36.8)
[2020-10-03] MEDS: LOPERAMIDE HCL 2 MG CAPSULE 4 MG PO (12:18)
--- NOTE | 2020-10-03 12:24 | PC.NURSE ---
[facility] flyer was given to patient.
--- NOTE | 2020-10-03 15:40 | PC.NURSE ---
Patient to cardiac geophysical laboratory chief via stretcher. Report given to RENETTA Hernandez.
--- NOTE | 2020-10-03 15:46 | WPDMODSED ---
Moderate Sedation Note-Pt Data Patient Data Allergies Allergy/AdvReac Type Severity Reaction Status Date / Time Penicillins Allergy Mild Rash Verified 09/30/20 14:11 thiopental [From Pentothal] AdvReac Intermediate Nausea and Verified 09/30/20 14:11 Vomiting Home Medications Medication Instructions Recorded Confirmed Type balsalazide 750 mg capsule 2,250 mg PO BID cap 09/13/20 09/30/20 History clopidogrel 75 mg tablet 75 mg PO DAILY tablet 09/13/20 09/30/20 History furosemide 40 mg tablet 40 mg PO DAILY tablet 09/13/20 09/30/20 History gabapentin 300 mg capsule 300 mg PO TID cap 09/13/20 09/30/20 History potassium chloride 10 mEq 10 meq PO TID tablet 09/13/20 09/30/20 History tablet,extended release pramipexole 1 mg tablet 1 mg PO DAILY tablet 09/13/20 09/30/20 History rosuvastatin 10 mg tablet 10 mg PO DAILY tablet 09/13/20 09/30/20 History sertraline 100 mg tablet 100 mg PO DAILY tablet 09/13/20 09/30/20 History albuterol sulfate 2.5 mg INHALATION BID PRN 09/30/20 09/30/20 History aspirin [Adult Aspirin] 81 mg PO DAILY 09/30/20 09/30/20 History cholecalciferol (vitamin D3) 50 mcg PO DAILY 09/30/20 09/30/20 History diphenhydramine HCl [Allergy 25 mg PO HS 09/30/20 09/30/20 History (diphenhydramine)] [id number] 1 inh INHALATION Q24H 09/30/20 09/30/20 History [Trelegy Ellipta] loperamide [Imodium] 4 mg PO DAILY 09/30/20 09/30/20 History melatonin 10 mg PO HS 09/30/20 09/30/20 History naproxen sodium [Aleve] 220 mg PO Q12H 09/30/20 09/30/20 History Current Medications: Active Medications Acetaminophen (Acetaminophen 325 Mg Tablet) 650 mg PO Q4H PRN PRN Reason: Mild Pain (1-3) or Fever Albuterol (Albuterol Sulfate Neb 2.5 Mg/3 Ml Inh) 2.5 mg INHALATION Q6HRT PRN PRN Reason: Shortness Of Breath Aspirin (Aspirin 81 Mg Enteric Tablet) 81 mg PO QAM [facility] Last Admin: 10/03/20 08:19 Dose: 81 mg Documented by: Clopidogrel Bisulfate (Clopidogrel Bisulfate 75 Mg Tablet) 75 mg PO DAILY [facility] Last Admin: 10/03/20 08:19 Dose: 75 mg Documented by: Diphenhydramine HCl (Diphenhydramine Hcl Cap 25 Mg Capsule) 25 mg PO HS [facility] Last Admin: 10/02/20 20:15 Dose: 25 mg Documented by: Fluticasone/Umeclidinium/Vilanterol (Fluticasone/Umeclidin/Vilanter 100-62.5-25 Mcg Ellipta) 1 puff INHALATION DAILYRT [facility] Last Admin: 10/03/20 08:07 Dose: 1 puff Documented by: Furosemide (Furosemide Inj 40 Mg/4 Ml Vial) 40 mg IV PUSH Q12HR [facility] Last Admin: 10/03/20 11:29 Dose: Not Given Documented by: Gabapentin (Gabapentin 300 Mg Capsule) 300 mg PO TID [facility] Last Admin: 10/03/20 12:18 Dose: 300 mg Documented by: Heparin Sodium (Porcine) (Heparin Sodium 5,000 Units/Ml Vial) 3,000 units IV PUSH PRN PRN PRN Reason: aPTT 55 - 70 seconds Last Admin: 10/02/20 23:01 Dose: 3,000 units Documented by: Heparin Sodium (Porcine) (Heparin Sodium 5,000 Units/Ml Vial) 4,000 units IV PUSH PRN PRN PRN Reason: aPTT less than 55 seconds Last Admin: 10/01/20 12:11 Dose: 4,000 units Documented by: Heparin Sodium/Dextrose (Heparin Sodium/D5w 100 Units/Ml) 25,000 units in 250 mls @ 15 mls/hr IV CONT .[id number] [facility]; Protocol Last Titration: 10/03/20 12:20 Dose: 1,500 units/hr, 15 mls/hr Documented by: Ipratropium Bertrand (Ipratropium Br 0.02% Inh Soln 0.5 Mg/2.5 Ml Vial) 0.5 mg INHALATION Q6HRT PRN PRN Reason: Shortness Of Breath Loperamide HCl (Loperamide Hcl 2 Mg Capsule) 4 mg PO DAILY [facility] Last Admin: 10/03/20 12:18 Dose: 4 mg Documented by: Melatonin (Melatonin 5 Mg Tablet) 10 mg PO HS [facility] Last Admin: 10/02/20 20:15 Dose: 10 mg Documented by: Metoprolol Tartrate (Metoprolol Tartrate 25 Mg Tablet) 25 mg PO Q6HR [facility] Last Admin: 10/03/20 12:18 Dose: 25 mg Documented by: Ondansetron HCl (Ondansetron Inj 4 Mg/2 Ml Vial) 4 mg IV PUSH Q4H PRN PRN Reason: Nausea Potassium Chloride (Potassium Chloride 20 Meq Packet (For Liquid)) 40 meq PO BID [facility] Last Admin: 10/03/20 08:19 Dose: 40 meq Document
--- NOTE | 2020-10-03 16:09 | WPDCARDPROC ---
Cardiac Cath Procedure Note Date of procedure:: 10/03/20 Performing physician:: Sharif Bustamante MD PROCEDURE: 1. LEFT HEART CATHETERIZATION, SELECTIVE CORONARY ANGIOGRAM. 2. LEFT VENTRICULAR ANGIOGRAM. 3. Angio-Seal device for arterial hemostasis 3. CONSCIOUS SEDATION. starting time is 3:53 p.m. ending time is 4:06 p.m. using 1 mg of Versed 25 micro fentanyl, administered by Mayr valadez RN. CLINICAL THERAPIST: DR. SHARIF BUSTAMANTE COMPLICATIONS: NONE. SEDATION: CONSCIOUS SEDATION, LOCAL ANESTHESIA, USING 1 MG OF VERSED SAID, 25 MCG OF FENTANYL, AND USING 1% LIDOCAINE FOR LOCAL ANESTHESIA. HISTORY: 74 years old lady with history of hypertension dyslipidemia and COPD was admitted to the hospital congestive heart failure noted to have abnormal echocardiogram with LV EF of 40% she had elevated troponin with non ST elevation myocardial infarction, after further stabilization and diuresis was brought to the quality assurance qa lab analyst for elective cardiac catheterization for definitive diagnosis of coronary disease TECHNIQUE: AFTER INFORMED CONSENT WAS OBTAINED FROM PATIENT, WAS BROUGHT TO THE INTERVENTION SPECIALIST, PUT IN THE INTERVENTION SPECIALIST TABLE, PREPPED AND DRAPED IN USUAL STERILE FASHION. FIVE SLOVENIAN SHEATH WAS INSERTED INTO THE RIGHT COMMON FEMORAL ARTERY, THROUGH THE SHEATH 5 SLOVENIAN JL4 CATHETER INSERTED, ADVANCED TO THE LEFT CORONARY ARTERY, LEFT CORONARY ARTERY ANGIOGRAM WAS OBTAINED. THE CATHETER WAS EXCHANGED OVER GUIDEWIRE INTO A 5 SLOVENIAN JR4 CATHETER, ADVANCED TO THE RIGHT CORONARY ARTERY, RIGHT CORONARY ARTERY ANGIOGRAM WAS OBTAINED. THE CATHETER THEN WAS EXCHANGED OVER GUIDEWIRE INTO THIS 5 SLOVENIAN PIGTAIL CATHETER, ADVANCED TO LEFT VENTRICLE, LEFT VENTRICULAR ANGIOGRAM WAS OBTAINED. THE CATHETER THEN WAS PULLED, THE SHEATH WAS PULLED APPLYING Angio-Seal device FOR ARTERIAL HEMOSTASIS. PATIENT TOLERATED THE PROCEDURE NO COMPLICATION, TAKEN FROM THE INTERVENTION SPECIALIST TO HIS ROOM IN STABLE CONDITION STABLE VITAL SIGNS. HEMODYNAMICS: AORTIC PRESSURE 104/55 . LV PRESSURE 104/04 WITH LVEDP OF 20 MMHG ANGIOGRAPHIC FINDINGS: LEFT MAIN: MEDIUM SIZE ARTERY NO SIGNIFICANT DISEASE OR STENOSIS. LAD MEDIUM SIZE ARTERY SHOWED MID LAD 40% NARROWING FOLLOWED BY 50% disease which is diffuse from that point towards the end of the vessel LEFT CIRCUMFLEX ARTERY, MEDIUM SIZE ARTERY, NO SIGNIFICANT DISEASE OR STENOSIS. RCA: DOMINANT VESSEL, no significant disease or stenosis LV: mildly dilated left ventricle with mild to moderate global hypokinesis with moderate left ventricular systolic dysfunction EF 40% SUMMARY: MILD CORONARY ARTERY DISEASE, [id number] left ventricular systolic dysfunction with nonischemic cardiomyopathy RECOMMENDATION: MAXIMUM MEDICAL TREATMENT. RISK FACTOR MODIFICATION
--- NOTE | 2020-10-03 16:20 | SUR.PHASEII ---
BEGIN PHASE II RECOVERY. RETURNS TO ADMINISTRATIVE SERVICES OFFICER 7 VIA STRETCHER S/P [facility] W/ DR. CONTE. ANGIOSEAL CLOSURE INTACT R. GROIN PUNCTURE SITE. GAUZE AND TEGADERM DRESSING OVER SITE C/D/I. AREA SOFT, NONTENDER; NO BLEEDING OR HEMATOMA NOTED. REVIEWED BEDREST ACTIVITY RESTRICTIONS W/ PT. VOICED UNDERSTANDING. R. PEDAL PULSE STRONG. WILL CONTINUE TO MONITOR.
--- NOTE | 2020-10-03 17:00 | SUR.PHASEII ---
REPORT CALLED TO ZEYNEP WILKINSON RN IN IMU.
--- NOTE | 2020-10-03 17:20 | SUR.PHASEII ---
END PHASE II RECOVERY. NO CHANGE Shalom BOUDREAUX SITE STATUS. RETURNED TO IMU 200 VIA STRETCHER ON TELE MONITOR. Shalom BOUDREAUX SITE CHECKED W/ DORI JACKSON ON ARRIVAL. DENIES PAIN OR SOB. NO DISTRESS NOTED.
--- NOTE | 2020-10-03 17:35 | PC.NURSE ---
Patient returned to room following cardiac cath. Report received from RENETTA Orourke.
[2020-10-03] MEDS: ROSUVASTATIN 10 MG TABLET 20 MG PO (20:58)
[2020-10-03] MEDS: FUROSEMIDE INJ 40 MG/4 ML VIAL IV PUSH (20:58)
[2020-10-03] MEDS: MELATONIN 5 MG TABLET 10 MG PO (20:59)
[2020-10-03] MEDS: PRAMIPEXOLE 1 MG TABLET PO (20:59)
[2020-10-03] MEDS: diphenhydrAMINE HCl CAP 25 MG CAPSULE PO (20:59)
[2020-10-04] VITALS (13 sets, daily range): BP systolic 129–135; BP diastolic 66–83; PULSE 53–67; RESP 18–22; TEMP 36.2–36.5; O2SAT 90–99
[2020-10-04] MEDS: METOPROLOL TARTRATE 25 MG TABLET PO ×2 (00:11→05:46)
[2020-10-04 05:12] LABS: Hemoglobin 10.4 g/dL (12.0-15.0); Immature Platelet Fraction Pct 8.8 % (0.9-11.2); Mean Corpuscular HGB Conc 29.7 g/dl (32-36); Mean Corpuscular Hemoglobin 29.5 pg (26-34); Mean Corpuscular Volume 99.4 fl (80-100); Mean Platelet Volume 11.4 fl (7.4-10.4); Platelet Count Result 140 k/mm3 (150-375); Red Blood Count 3.52 M/mm3 (4.2-5.4); Red Cell Distribution Width 14.8 % (11.5-14.5); White Blood Count 5.3 K/mm3 (4.5-10.0)
[2020-10-04 05:13] LABS: Anion Gap 5 mmol/L (8-16); Blood Urea Nitrogen 14 mg/dL (7-17); Calcium 9.4 mg/dL (8.4-10.2); Carbon Dioxide 38 mmol/L (22-30); Chloride 96 mmol/L (98-107); Estimated CRCL calculation 78 ml/min; Estimated Glomerular Filt Rate > 60; Glucose 98 mg/dL (65-105); Sodium 139 mmol/L (137-145)
[2020-10-04] MEDS: GABAPENTIN 300 MG CAPSULE PO (08:21)
[2020-10-04] MEDS: CLOPIDOGREL BISULFATE 75 MG TABLET PO (08:21)
[2020-10-04] MEDS: FUROSEMIDE INJ 40 MG/4 ML VIAL IV PUSH (08:21)
[2020-10-04] MEDS: ASPIRIN 81 MG ENTERIC TABLET PO (08:21)
[2020-10-04] MEDS: POTASSIUM CHLORIDE 20 MEQ PACKET (FOR LIQUID) 40 MEQ PO (08:21)
[2020-10-04] MEDS: CHOLECALCIFEROL 1,000 UNITS TABLET 2000 UNITS PO (08:21)
[2020-10-04] MEDS: SERTRALINE HCL 50 MG TABLET 100 MG PO (08:21)
[2020-10-04] MEDS: FLUTICASONE/UMECLIDIN/VILANTER 100-62.5-25 MCG ELLIPTA 1 PUFF INHALATION (08:32)
--- NOTE | 2020-10-04 09:36 | PM.PNCARD ---
Progress Note: A&P Assessment and Plan (1) CHF exacerbation: Qualifiers: Heart failure type: diastolic Qualified Code(s): I50.33 - Acute on chronic diastolic (congestive) heart failure Code(s): I50.9 - Heart failure, unspecified Status: Acute Assessment and Plan: Patient is a 74-year-old woman with history of congestive heart failure (HF-pEF), hypertension, hyperlipidemia, former tobacco dependence (40 pack year, quit 9 years ago), obstructive sleep apnea (on CPAP), COPD, pulmonary hypertension, COVID-19 (February 28, 2020), alcohol dependence (3 shots of vodka daily), ulcerative colitis, peripheral neuropathy, depression, who is seen in cardiac consultation for chief complaint of dyspnea. - better compensated. May switch lasix to PO 40 mg BID (home dose 40 daily) Patient is stable for discharge from cardiac standpoint Need follow up in [address] Padilla . (2) NSTEMI (non-ST elevated myocardial infarction): Code(s): I21.4 - Non-ST elevation (NSTEMI) myocardial infarction Status: Acute Assessment and Plan: - She has non ST elevation myocardial infarction in the setting of acute on chronic heart failure with preserved ejection fraction, hypertensive urgency, and possible cellulitis and/or pneumonia - troponin I has initially peaked at 1.25 -[facility] revealed mild non obstructive disease -Continue ASA and plavix as per her outpatient regimen -Rosuvastatin dose increased this admission (3) Hypertensive urgency: Code(s): I16.0 - Hypertensive urgency Status: Acute Assessment and Plan: -well controlled. Metoprolol started this admission. Will decrease dose to 25 mg daily (now bradycardic HR in 50s) Subjective Date/time seen: 10/04/20 09:36 She feels much better, almost back to baseline and wonders if can go home if possible Review of Systems Review of Systems: All systems reviewed & are unremarkable except as noted in HPI and below Exam Narrative: Exam Narrative: General: morbidly obese. HEENT: Normocephalic, atraumatic. PERRL, EOMI. Sclerae anicteric. Oral mucosa moist. Oropharynx clear. Neck: Supple. Respiratory: Lungs with diminished breath sounds throughout and mild wheezing. Cardiovascular: Regular rate and rhythm with S1-S2. No murmur, rub, or gallop. Gastrointestinal: Abdomen is soft, nontender, and nondistended with positive bowel sounds. No organomegaly. Skin: Warm and dry. No rash or lesions on limited exam. Extremities: No cyanosis, clubbing. 1+ leg edema with mild erythema and warmth. Radial and pedal pulses intact. Neurological: Alert. Cranial nerves 2-12 are grossly intact. Speech is clear. No facial asymmetry. No gross focal deficits to casual conversation. Psychiatric: Pleasant and cooperative with normal mood and affect. Judgment and insight intact. Objective Data Vital Signs Vital Signs: Vital Signs - 24 hr 10/03/20 10:00 10/03/20 12:00 10/03/20 12:15 Temperature Pulse Rate 59 L 59 L Respiratory Rate Blood Pressure Pulse Oximetry 94 10/03/20 12:18 10/03/20 14:00 10/03/20 16:25 Temperature 36.4 C L Pulse Rate 73 58 L 63 Respiratory Rate 18 Blood Pressure 105/72 Pulse Oximetry 96 10/03/20 16:40 10/03/20 16:55 10/03/20 17:10 Temperature Pulse Rate 63 60 56 L Respiratory Rate 18 18 16 Blood Pressure 109/79 104/63 104/61 Pulse Oximetry 92 95 93 10/03/20 17:30 10/03/20 17:40 10/03/20 18:00 Temperature 36.2 C L Pulse Rate 59 L 73 Respiratory Rate 16 Blood Pressure 101/61 Pulse Oximetry 98 98 10/03/20 18:10 10/03/20 18:34 10/03/20 19:10 Temperature 36.5 C 36.6 C Pulse Rate 64 60 62 Respiratory Rate 18 20 Blood Pressure 94/43 L 124/73 Pulse Oximetry 99 96 10/03/20 19:15 10/03/20 20:00 10/03/20 20:10 Temperature 36.6 C 36.6 C Pulse Rate 62 64 64 Respiratory Rate 20 20 20 Blood Pressure 124/73 127/70 Pulse Oximetry 96 97 97 10/03/20 21:10 0
[2020-10-04 09:56] LABS: IFOB Positive Control Positive; Immunochemical Fecal Occult Bl Negative (N)
--- NOTE | 2020-10-04 11:42 | PM.DS ---
DS: Admitting Diagnosis Admitting Diagnosis Admitting Diagnosis: Shortness of breath DS: Discharge Diagnosis Discharge Diagnosis (1) Acute exacerbation of CHF (congestive heart failure): Code(s): I50.9 - Heart failure, unspecified Status: Acute (2) Acute respiratory failure: Code(s): J96.00 - Acute respiratory failure, unspecified whether with hypoxia or hypercapnia Status: Acute (3) NSTEMI (non-ST elevated myocardial infarction): Code(s): I21.4 - Non-ST elevation (NSTEMI) myocardial infarction Status: Acute (4) Hypertensive urgency: Code(s): I16.0 - Hypertensive urgency Status: Acute (5) Hyperglycemia: Code(s): R73.9 - Hyperglycemia, unspecified Status: Acute (6) Acute and chronic respiratory failure: Qualifiers: Respiratory failure complication: hypoxia and hypercapnia Qualified Code(s): J96.21 - Acute and chronic respiratory failure with hypoxia; J96.22 - Acute and chronic respiratory failure with hypercapnia Code(s): J96.20 - Acute and chronic respiratory failure, unspecified whether with hypoxia or hypercapnia Status: Acute (7) Chronic obstructive pulmonary disease: Qualifiers: COPD type: unspecified COPD Qualified Code(s): J44.9 - Chronic obstructive pulmonary disease, unspecified Code(s): J44.9 - Chronic obstructive pulmonary disease, unspecified Status: Acute (8) Pulmonary HTN: Code(s): I27.20 - Pulmonary hypertension, unspecified Status: Acute (9) Obstructive sleep apnea syndrome in adult: Code(s): G47.33 - Obstructive sleep apnea (adult) (pediatric) Status: Acute (10) Mixed hyperlipidemia: Code(s): E78.2 - Mixed hyperlipidemia Status: Acute (11) Benign hypertension: Code(s): I10 - Essential (primary) hypertension Status: Acute (12) Chronic depression: Code(s): F32.9 - Major depressive disorder, single episode, unspecified Status: Acute (13) RLS (restless legs syndrome): Code(s): G25.81 - Restless legs syndrome Status: Acute (14) Peripheral neuropathy: Qualifiers: Peripheral neuropathy type: polyneuropathy, unspecified Qualified Code(s): G62.9 - Polyneuropathy, unspecified Code(s): G62.9 - Polyneuropathy, unspecified Status: Acute (15) Cervical disc disorder with radiculopathy of cervicothoracic region: Code(s): M50.13 - Cervical disc disorder with radiculopathy, cervicothoracic region Status: Acute DS: Summary Hospital Course Hospital Course: (1) Acute and chronic respiratory failure: secondary to COPD and CHF. Initially placed on BiPAP, tapered to CPAP home settings by the time of discharge. ABG and chest x-ray reviewed continue bronchodilators and diuretics. (2) CHF exacerbation: - echocardiogram shows EF of 40-45% with septal wall abnormal motion and right ventricular enlargement, mild pulmonary hypertension - she has acute on chronic heart failure - she has been on Diuresis with Lasix 40 mg IV b.i.d. with significant improvement in her leg swelling and her breathing status. She will be switched to Lasix p.o. 40 mg b.i.d. at discharge. She was on 40 mg daily at home prior to this admission. - lower extremity Dopplers were negative for DVT . (3) Chronic obstructive pulmonary disease: Suspected not in exacerbation and her symptoms related to mostly congestive heart failure. Continued on her home bronchodilators during the hospitalist stay (4) NSTEMI (non-ST elevated myocardial infarction): - She has non ST elevation myocardial infarction in the setting of acute on chronic heart failure - started on heparin infusion - continued on aspirin and Plavix. - echo reviewed - cardiac catheterization done on 10/03/2020 with minimal blockages noted on [facility] - continue statin increased dose of rosuvastatin from 10 mg to 20 mg during the hospital stay (5) Hypertensive
== END 2020-10-04 12:18 | disposition home or self-care (01) | DRG 280 ==
LOC: ANHED 10:09 → ANHIMU 10-01 01:44
PROVIDERS: Internal Medicine; Internal Medicine Cardiovascular Disease; Physician Assistant; Specialist; Admitting Provider Internal Medicine; Emergency Provider Emergency Medicine; PCP Family Medicine; Visit Provider Internal Medicine
PROC: 4A023N7 Measurement of Cardiac Sampling and Pressure, Left Heart, Percutaneous Approach (ICD-10-PCS; CPT 93452; principal; 2020-10-03 14:00)
PROC: 4A023N7 Measurement of Cardiac Sampling and Pressure, Left Heart, Percutaneous Approach (ICD-10-PCS; 2020-10-03 14:00)
DX: I21.4 Non-ST elevation (NSTEMI) myocardial infarction (principal); J96.21 Acute and chronic respiratory failure with hypoxia; J96.22 Acute and chronic respiratory failure with hypercapnia; I50.33 Acute on chronic diastolic (congestive) heart failure; L03.116 Cellulitis of left lower limb; I25.10 Atherosclerotic heart disease of native coronary artery without angina pectoris; I25.5 Ischemic cardiomyopathy; I16.0 Hypertensive urgency; I11.0 Hypertensive heart disease with heart failure; I50.9 Heart failure, unspecified; D72.829 Elevated white blood cell count, unspecified; G47.33 Obstructive sleep apnea (adult) (pediatric); J44.9 Chronic obstructive pulmonary disease, unspecified; E78.2 Mixed hyperlipidemia; R73.9 Hyperglycemia, unspecified; R77.8 Other specified abnormalities of plasma proteins; I27.20 Pulmonary hypertension, unspecified; F17.201 Nicotine dependence, unspecified, in remission; G62.9 Polyneuropathy, unspecified; G25.81 Restless legs syndrome; M50.13 Cervical disc disorder with radiculopathy, cervicothoracic region; Z79.899 Other long term (current) drug therapy; Z86.16 Personal history of COVID-19
CPT/HCPCS: 36415; 36600; 71045; 80048; 80061; 80076; 82274; 82728; 82805; 83036; 83615; 83735; 83880; 84443; 84484; 85025; 85027; 85049; 85055; 85380; 85610; 85730; 86140; 93005; 93458; 93970; 94002; 94003; 94640; 96374; 97161; 97165; 99285; A9270; C1760; C1887; C1894; C8929; G0269; J1644; J1650; J1940; J2250; J3010; J7040; Q9957

== ENCOUNTER 2020-10-28 09:53 | Outpatient (CLI) | payer MEDICARE, SELFPAY ==
[2020-10-28 10:51] LABS: Basophils Percent Auto 0.4 % (0.2-1.2); Eosinophils Absolute Auto 0.1 K/mm3 (0-0.3); Eosinophils Percent Auto 2.2 % (0-4.4); Hematocrit 36.7 % (37.0-47.0); Hemoglobin 11.4 g/dL (12.0-15.0); Immature Granulocyte Absolute 0.02 K/mm3 (0.00-0.031); Immature Granulocyte Percent A 0.4 % (0-0.5); Immature Platelet Fraction Pct 6.3 % (0.9-11.2); Lymphocytes Absolute Auto 0.82 K/mm3 (0.9-3.2); Lymphocytes Percent Auto 15.2 % (18.3-44.2); Mean Corpuscular HGB Conc 31.1 g/dl (32-36); Mean Corpuscular Hemoglobin 29.8 pg (26-34); Mean Corpuscular Volume 95.8 fl (80-100); Mean Platelet Volume 11.3 fl (7.4-10.4); Monocytes Absolute Auto 0.3 K/mm3 (0.1-0.6); Monocytes Percent Auto 5.4 % (2.6-8.5); Neutrophils Absolute Auto 4.1 K/mm3 (1.3-6.7); Neutrophils Percent Auto 76.4 % (45.5-73.1); Platelet Count Result 108 k/mm3 (150-375); Red Blood Count 3.83 M/mm3 (4.2-5.4); Red Cell Distribution Width 14.5 % (11.5-14.5); White Blood Count 5.4 K/mm3 (4.5-10.0)
[2020-10-28 11:01] LABS: Alanine Aminotransferase 11 U/L (4-35); Alkaline Phosphatase 68 U/L (38-126); Anion Gap 5 mmol/L (8-16); Aspartate Amino Transferase 33 U/L (14-36); Bilirubin,Total 1.5 mg/dL (0.2-1.3); Blood Urea Nitrogen 18 mg/dL (7-17); Calcium 9.3 mg/dL (8.4-10.2); Carbon Dioxide 30 mmol/L (22-30); Chloride 102 mmol/L (98-107); Cholesterol 190 mg/dL (0-200); Estimated Glomerular Filt Rate > 60; Glucose 94 mg/dL (65-110); HDL Direct 87 mg/dL; Potassium 3.9 mmol/L (3.4-5.0); Sodium 137 mmol/L (137-145); Triglycerides 79 mg/dL (<150)
[2020-10-28 11:13] LABS: LDL Cholesterol Direct 83 mg/dL
[2020-10-28 12:05] LABS: Platelet Estimate Decreased (Adequate)
== END 2020-10-28 09:54 | disposition home or self-care (01) ==
LOC: ANHLAB 09:56
PROVIDERS: PCP Family Medicine; Visit Provider Internal Medicine Cardiovascular Disease
DX: I50.22 Chronic systolic (congestive) heart failure (principal); E78.2 Mixed hyperlipidemia; R60.0 Localized edema; I10 Essential (primary) hypertension; I25.10 Atherosclerotic heart disease of native coronary artery without angina pectoris
CPT/HCPCS: 36415; 80053; 80061; 83735; 84443; 85025; 85055

== ENCOUNTER → 2020-11-24 08:13 | Outpatient (CLI) | payer MEDICARE, SELFPAY ==
[2020-11-25 18:14] LABS: SARS-CoV-2 RNA PCR Negative
== END ==
PROVIDERS: PCP Family Medicine; Visit Provider Family Medicine
DX: R52 Pain, unspecified (principal); Z20.822 Contact with and (suspected) exposure to COVID-19
CPT/HCPCS: C9803; U0003; U0005

== ENCOUNTER 2020-12-14 15:00 | Outpatient (RCR) | payer MEDICARE, SELFPAY ==
[2020-12-02 12:21] VITALS: PULSE 71
--- NOTE | 2020-12-12 17:03 | PCCPR ---
Absent without call or show Called to talk with Ping, unable to leave message her VM is full. She was scheduled to start last Saturday12/05/20.
== END 2020-12-15 16:00 | disposition home or self-care (01) ==
LOC: ANHCPREHAB 15:00
PROVIDERS: PCP Family Medicine; Visit Provider Internal Medicine Cardiovascular Disease
DX: I25.2 Old myocardial infarction (principal)
CPT/HCPCS: 93798

== ENCOUNTER 2021-03-09 16:04 | Emergency (ER) | payer MEDICARE, SELFPAY ==
[2021-03-09] VITALS (8 sets, daily range): BP systolic 110–161; BP diastolic 50–88; PULSE 63–69; RESP 14–18; TEMP 36.8–36.9; O2SAT 92–100
--- NOTE | ~2021-03-09 | XR_ITS ---
EXAMINATION: XR chest 2V 03/09/2021 19:54 INDICATION: Shortness of breath and fatigue PROCEDURE: PA and lateral views of the chest COMPARISON: Comparison to multiple prior studies sequentially, with oldest reviewed study dated 11/07. FINDINGS: The lungs are clear. The cardiomediastinal silhouette is enlarged. There are no pleural e ffusions. There is no pneumothorax suspected. IMPRESSION: 1: NO ACUTE CARDIOPULMONARY DISEASE. Reviewed, dictated and finalized at location A. RATORY COORDINATOR
--- NOTE | 2021-03-09 16:12 | ECG_ITS ---
Measurements Intervals [place] Rate: 62 P: 60 [place]: 177 QRS: 28 QRSD: 111 T: 33 QT: 395 QTc: 401 Interpretive Statements SINUS RHYTHM INTRAVENTRICULAR CONDUCTION DELAY LOW QRS VOLTAGE IN PRECORDIAL LEADS POOR R WAVE PROGRESSION, ANTERIOR LEADS CONSIDER INFERIOR INFARCT, AGE INDETERMINATE BORDERLINE ST-T WAVE ABNORMALITY- ANT/HIGH LAT LEADS BASELINE ARTIFACT- I, II, III, AVR, AVL, AVF, V1-V4 ABNORMAL ECG Electronically Signed On 03-09-2021 20:19:14 HANDKERCHIEF PRESSER by Brian Anderson D.O.
[2021-03-09 16:25] LABS: Basophils Percent Auto 0.4 % (0.2-1.2); Eosinophils Absolute Auto 0.2 K/mm3 (0-0.3); Eosinophils Percent Auto 4.1 % (0-4.4); Immature Granulocyte Absolute 0.01 K/mm3 (0.00-0.031); Immature Granulocyte Percent A 0.2 % (0-0.5); Lymphocytes Absolute Auto 1.16 K/mm3 (0.9-3.2); Lymphocytes Percent Auto 22.5 % (18.3-44.2); Mean Corpuscular HGB Conc 32.1 g/dl (32-36); Mean Corpuscular Volume 96.6 fl (80-100); Mean Platelet Volume 10.1 fl (7.4-10.4); Monocytes Absolute Auto 0.3 K/mm3 (0.1-0.6); Monocytes Percent Auto 5.4 % (2.6-8.5); Neutrophils Absolute Auto 3.5 K/mm3 (1.3-6.7); Neutrophils Percent Auto 67.4 % (45.5-73.1); Platelet Count Result 148 k/mm3 (150-375); Red Cell Distribution Width 13.4 % (11.5-14.5); White Blood Count 5.2 K/mm3 (4.5-10.0)
[2021-03-09 16:34] LABS: Alanine Aminotransferase 10 U/L (4-35); Albumin Level 4.1 g/dL (3.5-5.1); Alkaline Phosphatase 52 U/L (38-126); Anion Gap 7 mmol/L (8-16); Aspartate Amino Transferase 23 U/L (14-36); Bilirubin,Total 0.7 mg/dL (0.2-1.3); Blood Urea Nitrogen 42 mg/dL (7-17); Calcium 9.4 mg/dL (8.4-10.2); Carbon Dioxide 26 mmol/L (22-30); Chloride 103 mmol/L (98-107); Estimated CRCL calculation 29 ml/min; Estimated Glomerular Filt Rate 28; Glucose 87 mg/dL (65-110); Potassium 4.5 mmol/L (3.4-5.0); Sodium 136 mmol/L (137-145)
[2021-03-09 20:09] LABS: Alveolar/Arterial O2 Gradient 38.5 mmHg; Base Excess ABG -1.1 mEq/l (+/-2.0); Carboxyhemoglobin 0.3 % THb (0-2.0); Device ROOM AIR; Fractional Inspired Oxygen 21 %; HCO3 ABG 24.1 mEq/l (22.0-26.0); Methemoglobin ABG 0.2 %THb (0-1.5); Oxygen Content ABG 13.4 %vol (16.0-22.0); Oxygen Saturation ABG 90.5 % (95.0-100.0); Oxyhemoglobin 88.5 % THb (90.0-100.0); PCO2 ABG 42.5 mmHg (35.0-45.0); PO2 ABG 60.3 mmHg (80.0-100.0); PO2 FiO2 Ratio Arterial Blood 2.87 %; Site Drawn LEFT BRACHIAL; Total Hemoglobin 10.7 g/dL (12.0-18.0); pH ABG 7.372 (7.350-7.450)
[2021-03-09] MEDS: SODIUM CHLORIDE 0.9% IV 500 ML 999 ML IV CONT (20:11)
--- NOTE | 2021-03-09 20:11 | ED.RECABL ---
HPI - Recheck/Abnormal Lab/Rx General Chief Complaint: Recheck/Abnormal Lab/Rx Stated Complaint: Low Blood pressure Time Seen by Provider: 03/09/21 19:32 Source: patient, RN notes reviewed and old records reviewed Mode of arrival: ambulatory Limitations: no limitations History of Present Illness HPI narrative: This is 75 year old female with history of hypertension, COPD, chronic oxygen dependence who presents from her primary care physician's office for evaluation of fatigue and low blood pressure. Patient was evaluated by her primary care physician today for routine appointment. She told her PCP she has felt fatigue for 1 week. She has chronic shortness of breath but denies any worsening. She denies chest pain, nausea, vomiting , diarrhea, melena or cough. She denies any recent change in her medications. She states she has been eating and drinking normally. Her primary care physician sent patient to ER for evaluation because patient's BP was 80/40 in clinic. Related Data Home Medications Medication Instructions Recorded Confirmed clopidogrel 75 mg tablet 75 mg PO DAILY tablet 09/13/20 03/02/21 gabapentin 300 mg capsule 300 mg PO TID cap 09/13/20 03/02/21 pramipexole 1 mg tablet 1 mg PO DAILY tablet 09/13/20 03/02/21 sertraline 100 mg tablet 100 mg PO DAILY tablet 09/13/20 03/02/21 Trelegy Ellipta 1 inh INHALATION Q24H 09/30/20 03/02/21 albuterol sulfate 2.5 mg INHALATION BID PRN 09/30/20 03/02/21 aspirin 81 mg PO DAILY 09/30/20 03/02/21 cholecalciferol (vitamin D3) 50 mcg PO DAILY 09/30/20 03/02/21 diphenhydramine HCl [Allergy 25 mg PO HS 09/30/20 03/02/21 (diphenhydramine)] loperamide 4 mg PO DAILY PRN 09/30/20 03/02/21 melatonin 10 mg PO HS 09/30/20 03/02/21 metoprolol succinate 25 mg PO DAILY 12/02/20 03/02/21 Allergies Allergy/AdvReac Type Severity Reaction Status Date / Time Penicillins Allergy Mild Rash Verified 03/09/21 14:43 thiopental [From Pentothal] AdvReac Intermediate Nausea and Verified 03/09/21 14:43 Vomiting Review of Systems Review of Systems: All systems reviewed & are unremarkable except as noted in HPI and below PMFSH Past Medical History Medical History Acute and chronic respiratory failure Acute exacerbation of CHF (congestive heart failure) Acute respiratory failure Alcohol abuse Benign hypertension Cervical disc disorder with radiculopathy of cervicothoracic region CHF exacerbation Chronic depression Chronic obstructive pulmonary disease Chronic respiratory failure with hypoxia COVID-19 Elevated troponin level Hyperglycemia Hypertensive urgency Lung nodules 05/2017, 09/2018: stable 4mm right apex nodule/ multiple other nodules, emphysema 8 LDCT: stable Mixed hyperlipidemia Murmur, cardiac Nicotine dependence, unspecified, in remission LDCT 40 pack year/ quit 9 yrs ago 06/09, 10/10: emphysema, chronic 4mm nodule right apex, multiple nodules NSTEMI (non-ST elevated myocardial infarction) Obstructive sleep apnea syndrome in adult Peripheral neuropathy Postmenopausal Primary osteoarthritis of right hip Pulmonary hypertension Restless leg syndrome Ulcerative colitis 2018 colonoscopy negative (cologuard +). Surgical History Surgical History History of appendectomy History of carpal tunnel surgery of left wrist (03/02/20) History of hysterectomy History of total replacement of right shoulder joint History of total right hip arthroplasty Family History Family History Mother Family history of osteoporosis Family history of mental disorder Family history of anemia Family history of arthritis Family history of malignant neoplasm Family history of Alzheimer's disease Patient's mother is Sibling Family history of malignant neoplasm of uterus Family history of malignan
[2021-03-09 21:10] LABS: Add Urine Microscopic? YES; Appearance Urine Cloudy (Clear); Bacteria Urine Trace /hpf; Bilirubin Urine Negative (Negative); Blood Urine Negative (Negative); Color Urine Yellow (Yellow); Glucose Urine UA Negative (Negative); Hyaline Casts Urine 20-29 /lpf; Ketones Urine Negative (Negative); Leukocyte Esterase Ur Negative LEU/UL (Negative); Mucus Urine Rare /lpf; Nitrate Urine Negative (Negative); Protein Urine Negative (Negative); RBC Urine 0-2 /hpf (0-2); Specific Grav Ur 1.013 (1.001-1.035); Squamous Epithelial Cell Urine Rare /hpf (Few); Urobilinogen Urine Negative mg/dL (<2.0)
[2021-03-09] MEDS: SODIUM CHLORIDE 0.9% IV 1,000 ML 999 ML IV CONT (21:45)
== END 2021-03-09 22:49 | disposition home or self-care (01) ==
PROVIDERS: Emergency Medicine; Emergency Provider General Practice; PCP Family Medicine
DX: D64.9 Anemia, unspecified (principal); R53.83 Other fatigue; E86.0 Dehydration; I10 Essential (primary) hypertension; J44.9 Chronic obstructive pulmonary disease, unspecified; I11.0 Hypertensive heart disease with heart failure; I50.9 Heart failure, unspecified; Z87.891 Personal history of nicotine dependence; Z99.81 Dependence on supplemental oxygen
CPT/HCPCS: 36415; 36600; 71046; 80053; 81001; 82375; 82805; 83050; 84443; 85025; 93005; 96360; 96361; 99284; J7030; J7040

== ENCOUNTER 2021-03-23 12:44 | Emergency (ER) | payer MEDICARE, SELFPAY ==
[2021-03-23] VITALS (41 sets, daily range): BP systolic 80–160; BP diastolic 57–128; PULSE 59–74; RESP 14–29; TEMP 36.8–37; O2SAT 77–100
--- NOTE | ~2021-03-23 | XR_ITS ---
EXAMINATION: XR chest 1V portable INDICATION: Weakness TECHNIQUE: Portable AP chest at 1649 hours COMPARISON: 03/09/2021 FINDINGS: There is a mild interstitial pattern. Cardiomegaly is noted. No definite pleural effusion o r pneumothorax are identified. There are changes of right total shoulder arthroplasty. There is sever e left glenohumeral joint osteoarthritis. IMPRESSION: 1. Cardiomegaly with likely mild pulmonary edema. Reviewed, dictated and finalized at location F. LINING STITCHER
--- NOTE | 2021-03-23 16:44 | ECG_ITS ---
Measurements Intervals [place] Rate: 62 P: 48 [place]: 168 QRS: 10 QRSD: 101 T: 28 QT: 450 QTc: 458 Interpretive Statements SINUS RHYTHM DELAYED PRECORDIAL R/S TRANSITION MINIMAL Q WAVES- INFERIOR LEADS BASELINE ARTIFACT- I, II, III, AVR, AVL, AVF, V1-V6 BORDERLINE ECG Electronically Signed On 03-23-2021 18:45:09 CLEAN ROOM TECHNICIAN by Brian Anderson D.O.
[2021-03-23 17:12] LABS: Basophils Percent Auto 0.3 % (0.2-1.2); Eosinophils Absolute Auto 0.2 K/mm3 (0-0.3); Eosinophils Percent Auto 3.6 % (0-4.4); Hematocrit 31.7 % (37.0-47.0); Immature Granulocyte Absolute 0.01 K/mm3 (0.00-0.031); Immature Granulocyte Percent A 0.2 % (0-0.5); Lymphocytes Absolute Auto 1.19 K/mm3 (0.9-3.2); Lymphocytes Percent Auto 19.3 % (18.3-44.2); Mean Corpuscular HGB Conc 31.5 g/dl (32-36); Mean Corpuscular Hemoglobin 31.2 pg (26-34); Mean Corpuscular Volume 98.8 fl (80-100); Mean Platelet Volume 10.7 fl (7.4-10.4); Monocytes Absolute Auto 0.3 K/mm3 (0.1-0.6); Monocytes Percent Auto 5.2 % (2.6-8.5); Neutrophils Absolute Auto 4.4 K/mm3 (1.3-6.7); Neutrophils Percent Auto 71.4 % (45.5-73.1); Platelet Count Result 151 k/mm3 (150-375); Red Blood Count 3.21 M/mm3 (4.2-5.4); Red Cell Distribution Width 13.8 % (11.5-14.5); White Blood Count 6.2 K/mm3 (4.5-10.0)
[2021-03-23 17:20] LABS: Alanine Aminotransferase 10 U/L (4-35); Albumin Level 3.9 g/dL (3.5-5.1); Alkaline Phosphatase 63 U/L (38-126); Anion Gap 6 mmol/L (8-16); Aspartate Amino Transferase 24 U/L (14-36); Bilirubin,Total 1.1 mg/dL (0.2-1.3); Blood Urea Nitrogen 37 mg/dL (7-17); Calcium 9.1 mg/dL (8.4-10.2); Carbon Dioxide 35 mmol/L (22-30); Chloride 95 mmol/L (98-107); Estimated Glomerular Filt Rate 32; Glucose 89 mg/dL (65-110); Potassium 4.7 mmol/L (3.4-5.0); Sodium 136 mmol/L (137-145)
[2021-03-23] MEDS: SODIUM CHLORIDE 0.9% IV 500 ML 999 ML IV CONT (18:43)
--- NOTE | 2021-03-23 18:55 | ED.GENADULT ---
HPI - General Adult General Chief complaint: Recheck/Abnormal Lab/Rx <Danny Huertas MD - Last Filed: 03/23/21 19:06> Stated complaint: low blood pressure from pcp <Danny Huertas MD - Last Filed: 03/23/21 19:06> Time Seen by Provider: 03/23/21 16:46 <Danny Huertas MD - Last Filed: 03/23/21 19:06> Source: patient <Danny Huertas MD - Last Filed: 03/23/21 19:06> Mode of arrival: wheelchair <Danny Huertas MD - Last Filed: 03/23/21 19:06> Limitations: no limitations <Danny Huertas MD - Last Filed: 03/23/21 19:06> History of Present Illness HPI narrative: 75-year-old with a history of CAD s/p HI here with complaints of low blood pressure. Patient states that she was feeling fine and had a routine checkup with Dr. Hernandez in his office was found to have low blood pressure. Patient presently denies any chest pain or shortness of breath. She denies any abdominal pain or blood in the stool. She states that she has been taking Lasix 40 mg twice a day as prescribed. <Danny Huertas MD - Last Filed: 03/23/21 19:06> Onset (ago): day(s) (1) <Danny Huertas MD - Last Filed: 03/23/21 19:06> Exacerbating factors: none <Danny Huertas MD - Last Filed: 03/23/21 19:06> Associated symptoms: denies other symptoms <Danny Huertas MD - Last Filed: 03/23/21 19:06> Related Data Home medications: Home Medications Medication Instructions Recorded Confirmed clopidogrel 75 mg tablet 75 mg PO DAILY tablet 09/13/20 03/15/21 gabapentin 300 mg capsule 300 mg PO TID cap 09/13/20 03/15/21 pramipexole 1 mg tablet 1 mg PO DAILY tablet 09/13/20 03/15/21 sertraline 100 mg tablet 100 mg PO DAILY tablet 09/13/20 03/15/21 Trelegy Ellipta 1 inh INHALATION Q24H 09/30/20 03/15/21 albuterol sulfate 2.5 mg INHALATION BID PRN 09/30/20 03/15/21 aspirin 81 mg PO DAILY 09/30/20 03/15/21 cholecalciferol (vitamin D3) 50 mcg PO DAILY 09/30/20 03/15/21 diphenhydramine HCl [Allergy 25 mg PO HS 09/30/20 03/15/21 (diphenhydramine)] loperamide 4 mg PO DAILY PRN 09/30/20 03/15/21 melatonin 10 mg PO HS 09/30/20 03/15/21 metoprolol succinate 25 mg PO DAILY 12/02/20 03/15/21 <Danny Huertas MD - Last Filed: 03/23/21 19:06> Allergies/adverse reactions: Allergies Allergy/AdvReac Type Severity Reaction Status Date / Time Penicillins Allergy Mild Rash Verified 03/15/21 11:03 thiopental [From Pentothal] AdvReac Intermediate Nausea and Verified 03/15/21 11:03 Vomiting <Danny Huertas MD - Last Filed: 03/23/21 19:06> Review of Systems Review of Systems: All systems reviewed & are unremarkable except as noted in HPI and below <Danny Huertas MD - Last Filed: 03/23/21 19:06> Constitutional: Constitutional: Reports no additional constitutional complaints <Danny Huertas MD - Last Filed: 03/23/21 19:06> Eyes: Eyes: Reports no additional eye complaints <Danny Huertas MD - Last Filed: 03/23/21 19:06> ENT: Reports system reviewed and no additional complaints, except as documented <Danny Huertas MD - Last Filed: 03/23/21 19:06> Cardiovascular: Cardiovascular: Reports no additional cardiovascular complaints <Danny Huertas MD - Last Filed: 03/23/21 19:06> Respiratory: Respiratory: Reports no additional respiratory complaints <Danny Huertas MD - Last Filed: 03/23/21 19:06> Gastrointestinal: Gastrointestinal: Reports no additional gastrointestinal complaints <Danny Huertas MD - Last Filed: 03/23/21 19:06> Musculoskeletal: Musculoskeletal: Reports no additional musculoskeletal complaints <Danny Huertas MD - Last Filed: 03/23/21 19:06> Integumentary/Breasts: Skin/Breast: Reports system reviewed and no additional complaints, except as docu <Danny Huertas MD - Last Filed: 03/23/21 19:06> Neurologic: Reports system reviewed and no additional complaints, except as documented <Danny Huertas MD - Last Filed: 03/23/21 19:06> PMFSH Past Medical History Medical Hist
== END 2021-03-23 21:10 | disposition home or self-care (01) ==
PROVIDERS: Family Medicine; Emergency Provider Emergency Medicine; PCP Family Medicine
DX: I95.9 Hypotension, unspecified (principal); E86.0 Dehydration; I25.10 Atherosclerotic heart disease of native coronary artery without angina pectoris; I25.2 Old myocardial infarction; I50.9 Heart failure, unspecified; I11.0 Hypertensive heart disease with heart failure; J96.11 Chronic respiratory failure with hypoxia; I27.20 Pulmonary hypertension, unspecified; E78.2 Mixed hyperlipidemia; K51.90 Ulcerative colitis, unspecified, without complications; G47.33 Obstructive sleep apnea (adult) (pediatric); G62.9 Polyneuropathy, unspecified; M16.11 Unilateral primary osteoarthritis, right hip; G25.81 Restless legs syndrome; F32.A Depression, unspecified; Z86.16 Personal history of COVID-19; Z96.641 Presence of right artificial hip joint; Z96.611 Presence of right artificial shoulder joint; F17.210 Nicotine dependence, cigarettes, uncomplicated; R94.31 Abnormal electrocardiogram [ECG] [EKG]
CPT/HCPCS: 36415; 71045; 80053; 85025; 93005; 96360; 99283; J7040

== ENCOUNTER 2021-03-30 14:40 | Outpatient (CLI) | payer MEDICARE, SELFPAY ==
--- NOTE | ~2021-03-30 | CT_ITS ---
EXAMINATION:CT lung screening DATE: 03/30/2021 15:10 INDICATION: Other nonspecific abnormal finding of lung field. Smoker who quit 10 years ago with 40 pa ck year history. TECHNIQUE: Computed tomography (CT) of the chest was performed without intravenous contrast. Automate d exposure control and iterative reconstruction technique were employed. The dose-length product (DLP ) was 276.82 mGy-cm. COMPARISON: Chest CT 10/30/2019 FINDINGS: There is mild atelectasis bilaterally. There is a new 3.4 x 1.9 cm nonsolid nodule in right upper lobe. No pleural effusion. Cardiomegaly is noted. There are coronary artery calcifications. No pericardial effusion. There is a total right shoulder arthroplasty. There is severe cervical spondyl osis and moderate thoracic spondylosis. There is a chronic compression fracture of T5. IMPRESSION: 1. Lung-RADS category 2: Benign appearance or behavior. Continue annual screening with noncontrast lo w-dose chest CT in 12 months. Reviewed, dictated and finalized at location A. LINE TRACTOR OPERATOR IMPRESSION: 1. Lung-RADS category 2: Benign appearance or behavior. Continue annual screeni ng with noncontrast low-dose chest CT in 12 months.
== END 2021-03-30 14:41 | disposition home or self-care (01) ==
LOC: ANHIMG 14:42
PROVIDERS: PCP Family Medicine; Visit Provider Family Medicine
DX: Z12.2 Encounter for screening for malignant neoplasm of respiratory organs (principal); Z87.891 Personal history of nicotine dependence
CPT/HCPCS: 71271

== ENCOUNTER 2021-04-04 12:51 | Outpatient (CLI) | payer MEDICARE, SELFPAY ==
[2021-04-04 14:30] LABS: Anion Gap 8 mmol/L (8-16); Blood Urea Nitrogen 33 mg/dL (7-17); Calcium 9.5 mg/dL (8.4-10.2); Carbon Dioxide 29 mmol/L (22-30); Chloride 103 mmol/L (98-107); Estimated Glomerular Filt Rate 49; Glucose 110 mg/dL (65-110); Potassium 5.1 mmol/L (3.4-5.0); Sodium 140 mmol/L (137-145)
--- NOTE | 2021-05-11 07:56 | WPDHOLTEREM ---
Holter/Event Monitor Holter/Event Monitor Date of procedure: 05/03/21 Holter/Event Procedure: 48 Hr Holter Monitor Indications: Labile hypertension Conclusion: 1. 48 hour holter monitor on 05/03/20. 2. Underlying rhythm is sinus rhythm. HR range 60-92 bpm; average HR 72 bpm. 3. There are 9 premature supraventricular complexes. No supraventricular tachycardia. 4. There is 1 premature ventricular complexes. No ventricular tachycardia. 5. No sinoatrial or atrioventricular blocks. No significant pauses greater than 2 seconds. 6. No symptoms available for correlation.
== END 2021-04-04 12:52 | disposition home or self-care (01) ==
PROVIDERS: PCP Family Medicine; Visit Provider Family Medicine
DX: R79.89 Other specified abnormal findings of blood chemistry (principal)
CPT/HCPCS: 36415; 80048; 93225; 93226

== ENCOUNTER 2021-04-25 08:16 | Outpatient (CLI) | payer MEDICARE, SELFPAY ==
[2021-04-25 08:30] VITALS: PULSE 68; O2SAT 90
[2021-04-25 08:32] VITALS: PULSE 78; O2SAT 86
[2021-04-25 08:33] VITALS: O2SAT 87
[2021-04-25 08:35] VITALS: PULSE 82; O2SAT 92
[2021-04-25 08:45] VITALS: PULSE 69; O2SAT 90
--- NOTE | 2021-04-25 10:03 | HOMEO2EVAL ---
Evaluation was performed at [facility] Home Oxygen Evaluation RC: Home Oxygen (O2) Evaluation Start: 04/25/21 10:00 Freq: Status: Active Protocol: RPE Activity Type Activity Date Activity User E-Sign Co-Sign Detail Recorded Client Recorded Date Recorded By Document 04/25/21 08:30 [email or web address] 04/25/21 10:03 XAVIER Document 04/25/21 08:32 [email or web address] 04/25/21 10:03 XAVIER Document 04/25/21 08:33 [email or web address] [email or web address] 04/25/21 10:03 XAVIER Document 04/25/21 08:35 [email or web address] 04/25/21 10:03 XAVIER Document 04/25/21 08:45 [email or web address] [email or web address] 04/25/21 10:03 XAVIER 04/25/21 04/25/21 04/25/21 08:30 08:32 08:33 Home O2 Evaluation Test Phase Resting Exercise Exercise Oxygen Delivery Room Air Room Air Nasal Cannula Oxygen Flow Rate (L/min) 1 Pulse Oximetry (90-100 %) 90 86 L 87 L Pulse Rate (60-100 beats/min) 68 78 Ambulation Distance (feet) Ambulation Distance (meters) Home Oxygen Evaluation Comments Treatment Charges O2 Evaluation - Outpatient 04/25/21 04/25/21 08:35 08:45 Home O2 Evaluation Test Phase Exercise Resting Oxygen Delivery Nasal Cannula Room Air Oxygen Flow Rate (L/min) 2 Pulse Oximetry (90-100 %) 92 90 Pulse Rate (60-100 beats/min) 82 69 Ambulation Distance (feet) 500 Ambulation Distance (meters) 152.39 Home Oxygen Evaluation Comments PT USED WHEELED WALKER, ADDED 2L O2 WITH ACTIVITY Treatment Charges
--- NOTE | 2021-04-25 13:35 | WPDPFTINT ---
PFT Procedure Performed PFT Procedure Performed Spirometry with Pre/Post Bronchodilator Plethysmography (Lung Vol) Diffusing Cap (DLCO) Flow Vol Loop PFT Interpretation Lung volumes were measured with the body plethysmography method. The diminished expiratory reserve volume is related to obesity. The remainder of the lung volumes are unremarkable. Spirometry showed diminished expiratory flow rates and a diminished FEV1 to FVC ratio 61%, consistent with obstructive airway disease. Following administration of a bronchodilator, there was significant increase in the FEV1. Lung diffusion capacity is moderately reduced at 63% predicted. The flow volume loop is consistent with obstructive airway disease. Impression: Moderate obstructive airway disease with significant response to bronchodilators on this testing. Moderately reduced lung diffusion capacity.
== END 2021-04-25 08:17 | disposition home or self-care (01) ==
LOC: ANHPFT 08:18
PROVIDERS: PCP Family Medicine; Visit Provider Internal Medicine Pulmonary Disease
DX: J44.9 Chronic obstructive pulmonary disease, unspecified (principal); R94.2 Abnormal results of pulmonary function studies
CPT/HCPCS: 93971; 94060; 94618; 94726; 94729

== ENCOUNTER 2021-04-25 08:22 | Outpatient (CLI) | payer MEDICARE, SELFPAY ==
--- NOTE | ~2021-04-25 | US_ITS ---
EXAMINATION: US venous doppler [facility] DATE: 04/25/2021 10:03 INDICATION: Left lower limb swelling TECHNIQUE: Grayscale ultrasound images without and with compression and Doppler ultrasound images of the left lower extremity veins were obtained. COMPARISON: None. FINDINGS: The visualized portions of left common femoral vein, profunda (deep) femoral vein, femoral vein, popl iteal vein, peroneal veins, posterior tibial veins, gastrocnemius vein and greater saphenous vein out flow are patent. IMPRESSION: 1. No deep venous thrombosis in the left lower limb. Reviewed, dictated and finalized at location A. 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
== END 2021-04-25 08:23 | disposition home or self-care (01) ==
LOC: ANHIMG 08:22
PROVIDERS: PCP Family Medicine; Visit Provider Nurse Practitioner Adult Health
DX: R60.0 Localized edema (principal)
CPT/HCPCS: 93971

== ENCOUNTER 2021-05-10 12:23 | Outpatient (CLI) | payer MEDICARE, SELFPAY ==
[2021-05-10 12:57] LABS: Basophils Percent Auto 0.4 % (0.2-1.2); Eosinophils Absolute Auto 0.3 K/mm3 (0-0.3); Eosinophils Percent Auto 3.6 % (0-4.4); Hematocrit 32.7 % (37.0-47.0); Hemoglobin 10.1 g/dL (12.0-15.0); Immature Granulocyte Absolute 0.03 K/mm3 (0.00-0.031); Immature Granulocyte Percent A 0.4 % (0-0.5); Lymphocytes Absolute Auto 1.59 K/mm3 (0.9-3.2); Lymphocytes Percent Auto 22.3 % (18.3-44.2); Mean Corpuscular HGB Conc 30.9 g/dl (32-36); Mean Corpuscular Hemoglobin 30.3 pg (26-34); Mean Corpuscular Volume 98.2 fl (80-100); Mean Platelet Volume 11.3 fl (7.4-10.4); Monocytes Absolute Auto 0.3 K/mm3 (0.1-0.6); Monocytes Percent Auto 4.6 % (2.6-8.5); Neutrophils Absolute Auto 4.9 K/mm3 (1.3-6.7); Neutrophils Percent Auto 68.7 % (45.5-73.1); Platelet Count Result 163 k/mm3 (150-375); Red Blood Count 3.33 M/mm3 (4.2-5.4); Red Cell Distribution Width 14.5 % (11.5-14.5); White Blood Count 7.1 K/mm3 (4.5-10.0)
[2021-05-10 13:07] LABS: Anion Gap 10 mmol/L (8-16); Blood Urea Nitrogen 40 mg/dL (7-17); Calcium 9.3 mg/dL (8.4-10.2); Carbon Dioxide 28 mmol/L (22-30); Chloride 101 mmol/L (98-107); Estimated Glomerular Filt Rate 29; Glucose 89 mg/dL (65-110); Potassium 4.6 mmol/L (3.4-5.0); Sodium 139 mmol/L (137-145)
== END 2021-05-10 12:24 | disposition home or self-care (01) ==
PROVIDERS: PCP Family Medicine; Visit Provider Family Medicine
DX: I27.20 Pulmonary hypertension, unspecified (principal); I50.22 Chronic systolic (congestive) heart failure; J43.9 Emphysema, unspecified
CPT/HCPCS: 36415; 80048; 85025

== ENCOUNTER 2021-05-15 11:56 | Outpatient (CLI) | payer MEDICARE, SELFPAY ==
[2021-05-15 12:33] LABS: Anion Gap 6 mmol/L (8-16); Blood Urea Nitrogen 67 mg/dL (7-17); Calcium 9.3 mg/dL (8.4-10.2); Carbon Dioxide 29 mmol/L (22-30); Chloride 106 mmol/L (98-107); Estimated Glomerular Filt Rate 28; Glucose 104 mg/dL (65-110); Potassium 4.7 mmol/L (3.4-5.0); Sodium 141 mmol/L (137-145)
== END 2021-05-15 11:57 | disposition home or self-care (01) ==
LOC: ANHLAB 11:58
PROVIDERS: PCP Family Medicine; Visit Provider Family Medicine
DX: I50.22 Chronic systolic (congestive) heart failure (principal); N18.30 Chronic kidney disease, stage 3 unspecified
CPT/HCPCS: 36415; 80048

== ENCOUNTER 2021-05-22 12:22 | Outpatient (CLI) | payer MEDICARE, SELFPAY ==
--- NOTE | ~2021-05-22 | MM_ITS ---
EXAMINATION: MM screening [facility] BI w m[facility]am HISTORY: Screening mammogram TECHNIQUE: Craniocaudal and mediolateral oblique 3-D tomosynthesis images were obtained and synthetic 2-D images were generated. CAD analysis was submitted and interpreted. COMPARISON: 08/03/2019, 06/19/2018 BREAST PARENCHYMAL COMPOSITION: There are scattered areas of fibroglandular density. FINDINGS: There is no evidence of suspicious mass, calcification, or architectural distortion to sugg est malignancy in either breast. There has been no suspicious interval change. IMPRESSION: 1. No mammographic evidence of malignancy. 2. Recommend routine screening mammography in one year. BI-RADS Category 1: Negative Reviewed, dictated and finalized at location A. LEDGE MANAGEMENT CONSULTANT
== END 2021-05-22 12:23 | disposition home or self-care (01) ==
LOC: ANHIMG 12:23
PROVIDERS: PCP Family Medicine; Visit Provider Family Medicine
DX: Z12.31 Encounter for screening mammogram for malignant neoplasm of breast (principal)
CPT/HCPCS: 77063; 77067

== ENCOUNTER 2021-06-20 07:35 | Outpatient (CLI) | payer MEDICARE, SELFPAY ==
--- NOTE | 2021-06-26 17:14 | WPDSLEEPSTUD ---
Sleep Study Date of Study: 06/20/21 Ordering Provider: Luis Mckeon MD Interpreting Physician: Margaret Dubois MD Sleep Study Type: Split Polysomnogram Height: 1.65 m Weight: 103.873 kg Body Mass Index: 38.1 Neck Circumference (inches): 18.5 George: 15 Reason for Sleep Study Excessive daytime sleepiness, poor quality sleep, difficulty falling asleep and staying asleep Sleep History Ping Waller is a 75-year-old woman who says she has several issues with her sleep. She had a heart attack September 30, 2020, has congestive heart failure, COPD and uses oxygen, as well as diabetes mellitus. She uses a cane and sometimes a walker because she has 2 broken vertebra. She does not sleep well. She also has restless legs syndrome and Crohn's disease. She has a difficult time falling asleep and she wakes up during the night. 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 She rarely awakens from sleep feeling short of breath. She does not awaken at night with heartburn, belching or coughing. She frequently snores, occasionally loudly enough that others complain about it. She frequently has trouble sleeping with a cold. She does not wake up gasping for breath during the night. She occasionally has breathing problems at night observed by others. She occasionally sweats excessively at night and occasionally notices her heart pounding or beating irregularly at night. she frequently falls asleep during the day, constantly falls asleep involuntarily and frequently falls asleep while driving. she does not have loss of muscle tone with strong emotion. She does not have daytime difficulties due to excessive sleepiness. She does not feel paralyzed on waking or falling asleep. She occasionally has vivid dreamlike scenes upon awakening or falling asleep. She does not feel afraid to go to sleep. She occasionally has nightmares. She rarely remembers her dreams. She occasionally has racing thoughts, feelings of sadness, depression and anxiety. She does not have muscular tension. She constantly notices parts of her body jerking and she constantly kicks at night. She occasionally has crawling and aching feelings in her legs. She frequently has leg pain at night. She does not have morning jaw pain. She occasionally grinds her teeth during sleep. She rarely is bothered by pain during the day and rarely awakened by pain at night. She constantly wakes up feeling stiff in the morning, occasionally wakes up with sore achy muscles constantly wakes up with pain in the neck and spine. She has headaches, fatigue, memory problems, insomnia, concentration difficulties and depression. Normal bedtime is midnight and it takes her a variable amount of time to fall asleep. She typically wakes up 3-4 times during the night. She may or may not be able to get back to sleep easily. Her wake-up time varies. She estimates getting 4 hours of sleep at night. She takes naps during the afternoon or evening. A short nap is not refreshing. She may awaken feeling refreshed but not daily. she feels better in the afternoon compared to other times of day. Habits: She quit tobacco 10 years ago. No caffeine. Alcohol 2 drinks daily. No recreational drugs. [facility] Past Medical History Medical History Acute and chronic respiratory failure Acute exacerbation of CHF (congestive heart failure) Acute respiratory failure Alcohol abuse Azotemia Cervical disc disorder with radiculopathy of cervicothoracic region CHF exacerbation Chronic depression Chronic respiratory failure with hypoxia COVID-19 Elevated troponin level Hyperglycemia Hypertensive urgency Lung nodules 09/2018: stable R apex nodule/ multiple other nodules/emphysema LDCT: stable Mixed hyperlipidemia Murmur, cardiac Nicotine dependence, unspecified, in remission 40 pack year/ quit 2009 LDCT emphysema, multiple nodules NSTEMI (non-ST elevated myocardial infarct
[2021-06-27 16:13] VITALS: BMI 38.1
== END 2021-06-21 06:57 | disposition home or self-care (01) ==
PROVIDERS: PCP Family Medicine; Visit Provider Internal Medicine Pulmonary Disease
DX: G47.33 Obstructive sleep apnea (adult) (pediatric) (principal); G25.81 Restless legs syndrome
CPT/HCPCS: 95811

== ENCOUNTER 2021-07-20 13:14 | Emergency (ER) | payer MEDICARE, SELFPAY ==
--- NOTE | ~2021-07-20 | US_ITS ---
EXAMINATION: US venous doppler [facility] DATE: 07/20/2021 15:45 INDICATION: Right lower limb pain and swelling TECHNIQUE: Lo scale images without and with compression and Doppler images of the right lower extre mity veins were obtained. COMPARISON: 10/01/2020 FINDINGS: The right common femoral vein, profunda femoral vein, femoral vein, popliteal vein, peronea l trunk, posterior tibial veins, and greater saphenous vein are patent. IMPRESSION: 1. Patent right lower extremity veins. No evidence of deep venous thrombosis. Reviewed, dictated and finalized at location F.
[2021-07-20 13:22] VITALS: BP 146/73; PULSE 88; RESP 24; TEMP 37.3; O2SAT 93
--- NOTE | 2021-07-20 14:33 | ED.LOWEXIN ---
HPI - Extremity Injury (Lower) General Chief Complaint: Extremity Injury, Lower Stated Complaint: right foot wound Time Seen by Provider: 07/20/21 14:27 Source: patient Mode of arrival: ambulatory Limitations: no limitations History of Present Illness HPI Narrative: Patient is a 75-year-old female complaining of right lower extremity swelling and redness x2 weeks. Patient states that she has seen her primary care physician twice for it, was given 2 rounds of antibiotics, currently on doxycycline. Patient states that she just wants to make sure that she does not have a blood clot. Patient denies any injury to the area. Patient denies any chest pain, shortness of breath, fever or chills. Related Data Home Medications Medication Instructions Recorded Confirmed albuterol sulfate 2.5 mg INHALATION BID PRN 09/30/20 07/17/21 aspirin 81 mg PO DAILY 09/30/20 07/17/21 cholecalciferol (vitamin D3) 50 mcg PO DAILY 09/30/20 07/17/21 diphenhydramine HCl [Allergy 25 mg PO HS 09/30/20 07/17/21 (diphenhydramine)] loperamide 4 mg PO DAILY PRN 09/30/20 07/17/21 melatonin 10 mg PO HS 09/30/20 07/17/21 Allergies Allergy/AdvReac Type Severity Reaction Status Date / Time Penicillins Allergy Mild Rash Verified 07/20/21 12:02 thiopental [From Pentothal] AdvReac Intermediate Nausea and Verified 07/20/21 12:02 Vomiting Review of Systems Review of Systems: All systems reviewed & are unremarkable except as noted in HPI and below Constitutional: Constitutional: Denies body ache(s), Denies chills, Denies excessive sweating, Denies fatigue, Denies fever(s), Denies headache(s), Denies lethargy, Denies malaise, Denies weakness and Denies weight loss Eyes: Eyes: Denies blurry vision, Denies change in vision and Denies loss of vision ENT: Denies dizziness, Denies ear discharge, Denies headache(s), Denies lip swelling, Denies epistaxis, Denies nasal congestion, Denies neck pain, Denies throat swelling and Denies tongue swelling Cardiovascular: Cardiovascular: Denies chest pain, Denies chest pain at rest, Denies chest pain with activity, Denies diaphoresis, Denies rapid heart rate, Denies edema, Denies irregular heart rhythm, Denies lightheadedness, Denies palpitations, Denies dyspnea and Denies dyspnea on exertion Respiratory: Respiratory: Denies chest congestion, Denies cough, Denies hemoptysis, Denies dyspnea and Denies dyspnea on exertion Gastrointestinal: Gastrointestinal: Denies abdominal pain, Denies melena, Denies hematochezia, Denies diarrhea, Denies nausea, Denies vomiting and Denies hematemesis Musculoskeletal: Musculoskeletal: Denies abnormal gait, Denies deformity, Denies joint swelling, Denies limited range of motion, Denies neck pain and Denies numbness Neurologic: Denies Abnormal speech present, Denies abnormal gait, Denies confusion, Denies dizziness, Denies headache(s), Denies focal weakness, Denies loss of vision, Denies numbness, Denies Other visual disturbances, Denies Sensory deficit (Neuro) and Denies weakness Psychiatric: Psychiatric: Denies confusion, Denies depression, Denies auditory hallucinations, Denies homicidal ideation and Denies suicidal ideation Endocrine: Endocrine: Denies cold intolerance, Denies excessive sweating, Denies fatigue, Denies heat intolerance and Denies palpitations Hematologic/Lymphatic: Hematologic/Lymphatic: Denies easy bleeding and Denies easy bruising Allergic/Immunologic: Allergic/Immunologic: Denies lip swelling, Denies throat swelling and Denies tongue swelling PMFSH Past Medical History Medical History Acute and chronic respiratory failure Acute exacerbation of CHF (congestive heart failure) Acute respiratory failure Alcohol abuse Azotemia Cervical disc disorder with radiculopathy of cervicothoracic region CHF exacerbation Chronic depression Chronic respiratory failure with hypoxia COVID-19 Elevated troponin level Hyperglycemia Hyperte
[2021-07-20 14:46] VITALS: BP 140/89; PULSE 87; RESP 22
--- NOTE | 2021-07-20 14:47 | PC.NURSE ---
Pt noted to be 87% on room air, pt states she is normally on 4 lpm nc at home but did not tell staff here. Pt placed on oxygen and was taken to US via stretcher.
--- NOTE | 2021-07-20 15:11 | PC.NURSE ---
Labs not drawn at this time d/t pt being in ultrasound.
[2021-07-20 16:00] LABS: Basophils Percent Auto 0.3 % (0.2-1.2); Eosinophils Absolute Auto 0.2 K/mm3 (0-0.3); Eosinophils Percent Auto 1.7 % (0-4.4); Hemoglobin 10.2 g/dL (12.0-15.0); Immature Granulocyte Absolute 0.04 K/mm3 (0.00-0.031); Immature Granulocyte Percent A 0.5 % (0-0.5); Lymphocytes Absolute Auto 0.88 K/mm3 (0.9-3.2); Lymphocytes Percent Auto 10.2 % (18.3-44.2); Mean Corpuscular Hemoglobin 29.9 pg (26-34); Mean Corpuscular Volume 99.7 fl (80-100); Monocytes Absolute Auto 0.6 K/mm3 (0.1-0.6); Monocytes Percent Auto 6.9 % (2.6-8.5); Neutrophils Percent Auto 80.4 % (45.5-73.1); Platelet Count Result 154 k/mm3 (150-375); Red Blood Count 3.41 M/mm3 (4.2-5.4); Red Cell Distribution Width 13.7 % (11.5-14.5); White Blood Count 8.7 K/mm3 (4.5-10.0)
[2021-07-20 16:11] LABS: Anion Gap 5 mmol/L (8-16); Blood Urea Nitrogen 23 mg/dL (7-17); Calcium 9.4 mg/dL (8.4-10.2); Carbon Dioxide 32 mmol/L (22-30); Chloride 100 mmol/L (98-107); Estimated CRCL calculation 49 ml/min; Estimated Glomerular Filt Rate 49; Glucose 106 mg/dL (65-110); Potassium 4.6 mmol/L (3.4-5.0); Prothrombin Time 13.2 Seconds (11.1-14.7); Sodium 137 mmol/L (137-145)
[2021-07-20 16:12] LABS: Partial Thromboplastin Time 34.2 SECONDS (22.3-36.8)
[2021-07-20 16:43] VITALS: BP 132/86; PULSE 82; RESP 18; O2SAT 93
[2021-07-20 17:03] VITALS: PULSE 77; RESP 18; O2SAT 98
== END 2021-07-20 17:04 | disposition home or self-care (01) ==
PROVIDERS: Emergency Provider Emergency Medicine; PCP Family Medicine
DX: L03.115 Cellulitis of right lower limb (principal); I50.9 Heart failure, unspecified; J96.11 Chronic respiratory failure with hypoxia; E78.2 Mixed hyperlipidemia; J43.9 Emphysema, unspecified; I25.2 Old myocardial infarction; G62.9 Polyneuropathy, unspecified; M16.11 Unilateral primary osteoarthritis, right hip; G25.81 Restless legs syndrome; Z86.16 Personal history of COVID-19; Z79.82 Long term (current) use of aspirin; Z96.611 Presence of right artificial shoulder joint; Z96.641 Presence of right artificial hip joint; Z87.891 Personal history of nicotine dependence
CPT/HCPCS: 36415; 80048; 85025; 85610; 85730; 93971; 99284

== ENCOUNTER 2022-01-23 13:31 | Outpatient (CLI) | payer MEDICARE, SELFPAY ==
--- NOTE | ~2022-01-23 | DEXA_ITS ---
Bone Density Report Name: LORRAINE CUEVA Age: 76 Sex: Female Ethnicity: White Date of : 1945 Indication: monitoring treatment; height loss; prior fracture; hysterectomy; postmenopausal Referring Provider: ELINA HERNANDEZ Study: Bone densitometry was performed. Exam Date: January 23, 2022 Accession number: [id number] Bone Density: Region BMD T-score Z-score Classification AP Spine(L1, L2, L4) 1.116 0.7 3.1 Normal Femoral Neck (Left) 0.781 -0.6 1.4 Normal Total Hip (Left) 0.990 0.4 2.1 Normal World Health Organization criteria for BMD impression classify patients as: Normal (T-score at or above -1.0), Osteopenia (T-score between -1.0 and -2.5), or Osteoporosis (T-score at or below -2.5). 10-year Fracture Risk: FRAX not reported because: All T-scores for Spine Total, Hip Total, Femoral Neck at or above -1.0 Prior hip or vertebral fracture Treated for osteoporosis Previous Exams: Region Exam Age BMD T-score BMD Change BMD Change Date g/cm2 vs Baseline vs Previous Total Hip(Left) 01/23/2022 76 0.990 0.4 -0.103 (-9.5%) -0.154 (-13.5% 06/06/2017 71 1.144 1.7 0.051 (4.7%)# 0.051 (4.7%)# 05/02/2011 65 1.093 1.2 *Denotes significance at 95% confidence level, LSC for Total Hip = 0.027 g/cm2 # Denotes dissimilar scan types or analysis methods Clinical Information Provided by Patient: Have had a previous hip or vertebral fracture Has had a low trauma fracture Is being treated for osteoporosis Has used the following medications: Vitamin D Has the following medical conditions: Hysterectomy Patient maximum height was 66 No regular weight bearing exercise Onset of menses at age 16 Number of children 2 Impression: The patient has normal bone mass. The patient has risk factors, including: previous fracture. No significant bone loss was observed. Discussion: PATIENT UNDER TREATMENT WITH NO SIGNIFICANT BMD LOSS SINCE LAST EXAM. In an untreated patient, BMD typically declines with age. A lack of decline or gain is usually a sign that treatment is efficacious and fracture risk is reduced. It is important to ask patients whether they are taking their medications and to encourage continued and appropriate compliance with their osteoporosis therapies to reduce fracture risk. It is also important to review their risk factors and encourage appropriate calcium and vitamin D intakes, exercise, fall prevention and other lifestyle measures. Follow-Up: Consider a repeat BMD and Vertebral Fracture Assessment (VFA) exam in 2 years or sooner if medically necessary,
== END 2022-01-23 13:32 | disposition home or self-care (01) ==
PROVIDERS: PCP Family Medicine; Visit Provider Physician Assistant
DX: Z78.0 Asymptomatic menopausal state (principal)
CPT/HCPCS: 77080

== ENCOUNTER 2022-02-06 14:30 | Outpatient (CLI) | payer MEDICARE, SELFPAY ==
[2022-02-06 15:25] LABS: Hematocrit 35.6 % (37.0-47.0); Hemoglobin 11.2 g/dL (12.0-15.0)
[2022-02-06 15:35] LABS: Anion Gap 9 mmol/L (8-16); Blood Urea Nitrogen 19 mg/dL (7-17); Calcium 9.3 mg/dL (8.4-10.2); Carbon Dioxide 29 mmol/L (22-30); Chloride 98 mmol/L (98-107); Estimated Glomerular Filt Rate 54; Glucose 97 mg/dL (65-110); Potassium 4.4 mmol/L (3.4-5.0); Sodium 136 mmol/L (137-145)
[2022-02-06 15:37] LABS: Partial Thromboplastin Time 29.6 SECONDS (22.3-36.8)
== END 2022-02-06 14:31 | disposition home or self-care (01) ==
LOC: ANHSURGERY 14:37
PROVIDERS: Anesthesiology; PCP Family Medicine; Visit Provider Urology
DX: N36.42 Intrinsic sphincter deficiency (ISD) (principal); N18.30 Chronic kidney disease, stage 3 unspecified; Z51.81 Encounter for therapeutic drug level monitoring; D64.9 Anemia, unspecified; Z01.818 Encounter for other preprocedural examination
CPT/HCPCS: 36415; 80048; 85014; 85018; 85610; 85730; 87086; 87088

== ENCOUNTER 2022-02-09 00:54 | Day surgery (SDC) | payer MEDICARE, SELFPAY ==
--- NOTE | 2022-02-04 14:00 | PM.IMHP ---
H&P: HPI History of Present Illness Date/Time: 02/04/22 14:00 Chief Complaint: incontinence Narrative: a 76-year-old woman with mixed incontinence. She receives Botox for urge incontinence. 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 We discussed options. She presents for bulking agent Review of Systems Review of Systems: All systems reviewed & are unremarkable except as noted in HPI and below PMFSH Past Medical History Medical History Acute and chronic respiratory failure Acute exacerbation of CHF (congestive heart failure) Acute respiratory failure Alcohol abuse Azotemia Cervical disc disorder with radiculopathy of cervicothoracic region CHF exacerbation Chronic depression Chronic respiratory failure with hypoxia COVID-19 Elevated troponin level Hyperglycemia Hypertensive urgency Lung nodules 09/2018: stable R apex nodule/ multiple other nodules/emphysema LDCT: stable Mixed hyperlipidemia Murmur, cardiac Nicotine dependence, unspecified, 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 Surgical History Surgical History History of appendectomy History of carpal tunnel surgery of left wrist (03/02/20) History of hysterectomy History of total replacement of right shoulder joint History of total right hip arthroplasty Family History Family History Mother Family history of osteoporosis Family history of mental disorder Family history of anemia Family history of arthritis Family history of malignant neoplasm Family history of Alzheimer's disease Patient's mother is Sibling Family history of malignant neoplasm of uterus Family history of malignant neoplasm of cervix Patient's sister is Daughter Crohn disease Other Cerebrovascular accident Family history of cardiovascular disease Family history of glaucoma Social History Social History Social History: Surrogate decision maker: Shantla Pond, daughter. Code status: Full code. Smoking packs per day: 1 Smoking cigarettes per day: 20.0 Years smoked: 40 Smoking pack-years: 40.00 Smoking status: Former smoker Tobacco type: cigarettes Smoking end date: 09/22/09 Alcohol intake: current Drinks per week: 21 Substance use: never Additional living arrangements comments: The patient lives in her own home in [place]. Additional occupation/education comments: Retired. Meds Home Medications and Allergies Home Medications Medication Instructions Recorded Confirmed Type albuterol sulfate 2.5 mg/3 mL 2.5 mg inhalation BID PRN 09/30/20 11/16/21 History (0.083 %) solution for nebulization Shortness Of Breath aspirin 81 mg tablet 81 mg PO DAILY 09/30/20 11/16/21 History cholecalciferol (vitamin D3) 50 50 mcg PO DAILY 09/30/20 11/16/21 History mcg (2,000 unit) tablet diphenhydramine HCl 25 mg capsule 25 mg PO HS 09/30/20 11/16/21 History (Allergy (diphenhydramine)) loperamide 2 mg capsule 4 mg PO DAILY PRN Diarrhea 09/30/20 11/16/21 History melatonin 10 mg tablet 10 mg PO HS 09/30/20 11/16/21 History naproxen sodium 220 mg capsule 220 mg PO Q12H PRN Breakthrough 10/04/20 11/16/21 Rx (Aleve) Pain, Mild #0 caps glycopyrrolate 9 mcg-formoterol 2 puff inhalation BID #1 ea 05/31/21 11/16/21 Rx 4.8 mcg HFA aerosol inhaler (Bevespi Aerosphere) spironolactone 25 mg tablet 12.5 mg PO DAILY #45 tabs 06/26/21 11/16/21 Rx furosemide 40 mg tablet (Lasix) See Rx Inst
--- NOTE | 2022-02-06 09:07 | PC.NURSE ---
Report to the Outpatient Waiting Room, entrance under the green pavilion located off [facility], at time __9:00AM on date __02/09/22 . Planned Procedure Time: __11:00AM . Time changes happen often and if your time is changed the preop area will call you the afternoon before. - You and your visitor will be asked to self-screen and do not enter if you have any COVID symptoms. - We encourage only one visitor and NO visitors under age 16 are allowed at this time. Your visitor will receive communication by the phone number that is given day of service. - The patient visitor is requested to social distance or may leave the building when not with patient due to restrictions. - A mask is required within the hospital. Patients may have clear liquids (water, carbonated beverages, clear teas, apple juice) until 3 hours prior to surgery with a maximum of 20 ounces. - No food from midnight until time of surgery Take the following medications with a SIP of water the morning of surgery: __ALBUTEROL INHALER NEEDED, GABAPENTIN, METOPROLOL, SERTRALINE Medications to discontinue per physician ___HOLD ASPIRIN 7 DAYS PRE-OP- LAST DOSE 02/02/22. HOLD PLAVIX 7 DAYS PRE-OP PER DR NEAL(PER PT) - LAST DOSE 02/02/22, HOLD ALL VITAMINS/SUPPLEMENTS 3 DAYS PRE-OP- LAST DOSE 02/05/22 Please no make-up, nail spanish, hairspray, perfume, deodorant, or body powder the day of surgery. No jewelry (including any body piercings) or valuables the day of surgery, leave them at home. Please take a shower or bath the night before, or the morning of, surgery with an antibacterial soap. Wear comfortable, loose fitting clothing. Children are encouraged to wear pajamas. - Jewelry must be removed prior to entering the operating room. Rings and piercings that are not removed may be cut off. - The hospital will not accept responsibility for valuables. - Please leave all valuables, including medications, at home the day of surgery. If you are going home after surgery, a licensed cdl b driver must drive you home. - NO public transportation without another adult. - We recommend that an adult stay with you for 24 hours following discharge. - We also recommend that you do not drive, make important decision, drink alcoholic beverages, or take any drugs that were not prescribed by your health care provider for at least 24 hours after your discharge time. Follow any additional instructions given to you from your surgeon. If you or anyone in your household have experienced Covid symptoms in the past week, please notify your surgeon or the nurse liaison at the phone number below for possible testing. Telephone instructions given to __PATIENT____and asked if any additional questions and then verbalized understanding. Patient advised to call surgeon office or pre surgery nurse liaison [phone] if any additional questions.
[2022-02-06 09:10] VITALS: BMI 41.8
--- NOTE | 2022-02-08 14:16 | WPDANESEPPF ---
Anes - Initial Pre Proc Eval Procedure: Operation Date: 02/09/22 11:00 Proposed Procedures p Cystoscopy, Injection Bulking Agent - Les Parker MD Date/Time: 02/08/22 14:16 Surgeon: Les Parker MD Pre Op Diagnosis: ID Patient Data Age: 76 Gender: F Height: 1.6 m Weight: 107 kg Allergies Allergy/AdvReac Type Severity Reaction Status Date / Time Penicillins Allergy Mild Rash Verified 02/09/22 09:29 thiopental [From Pentothal] AdvReac Intermediate Nausea and Verified 02/09/22 09:29 Vomiting Home Medications Medication Instructions Recorded Confirmed Type albuterol sulfate 2.5 mg/3 mL 2.5 mg inhalation BID PRN 09/30/20 02/09/22 History (0.083 %) solution for nebulization Shortness Of Breath aspirin 81 mg tablet 81 mg PO DAILY 09/30/20 02/09/22 History cholecalciferol (vitamin D3) 50 50 mcg PO DAILY 09/30/20 02/09/22 History mcg (2,000 unit) tablet diphenhydramine HCl 25 mg capsule 25 mg PO HS 09/30/20 02/09/22 History (Allergy (diphenhydramine)) loperamide 2 mg capsule 4 mg PO DAILY 09/30/20 02/09/22 History melatonin 10 mg tablet 10 mg PO HS 09/30/20 02/09/22 History potassium chloride 10 mEq 20 meq PO BID #360 tabs 07/13/21 02/09/22 Rx tablet,extended release sacubitril 24 mg-valsartan 26 mg 1 tablet PO BID #180 tabs 07/13/21 02/09/22 Rx tablet (Entresto) triamcinolone acetonide 0.1 % 1 applic topical BID #453.6 grams 09/07/21 02/09/22 Rx topical ointment rosuvastatin 20 mg tablet 20 mg PO DAILY #90 tabs 10/23/21 02/09/22 Rx balsalazide 750 mg capsule See Rx Instructions .Route 11/21/21 02/09/22 Rx .COMPLEX #180 caps metoprolol succinate 25 mg 25 mg PO DAILY #90 tabs 01/31/22 02/09/22 Rx tablet,extended release 24 hr furosemide 40 mg tablet (Lasix) 40 mg PO DAILY 02/06/22 02/09/22 History gabapentin 300 mg capsule 300 mg PO TID 02/06/22 02/09/22 History naproxen sodium 220 mg capsule 220 mg PO Q12H 02/06/22 02/09/22 History (Aleve) pramipexole 1 mg tablet 1 mg PO HS 02/06/22 02/09/22 History sertraline 100 mg tablet 100 mg PO QAM 02/06/22 02/09/22 History Patient hx anesthesia problems: none Family hx anesthesia problems: none Results Review: All pre-operative results and documents have been reviewed as part of the pre-operative evaluation. [facility] Past Medical History Medical History Acute and chronic respiratory failure Acute exacerbation of CHF (congestive heart failure) Acute respiratory failure Alcohol abuse Azotemia Cervical disc disorder with radiculopathy of cervicothoracic region CHF exacerbation Chronic depression Chronic respiratory failure with hypoxia COVID-19 Elevated troponin level Hyperglycemia Hypertensive urgency Lung nodules 09/2018: stable R apex nodule/ multiple other nodules/emphysema LDCT: stable Mixed hyperlipidemia Murmur, cardiac Nicotine dependence, unspecified, 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 Surgical History Surgical History History of appendectomy History of carpal tunnel surgery of left wrist (03/02/20) History of hysterectomy History of total replacement of right shoulder joint History of total right hip arthroplasty Family History Family History Mother Family history of osteoporosis Family history of mental disorder Family history of anemia Family history of arthritis Family history of malignant neoplasm Family history of Alzheimer's disease Patient's mother is Sibling Family history of malignant neoplasm of uterus Family histor
[2022-02-09] VITALS (13 sets, daily range): BP systolic 87–114; BP diastolic 52–87; PULSE 70–100; RESP 15–22; TEMP 36.2–36.9; O2SAT 95–100
--- NOTE | 2022-02-09 07:14 | WPDHPUPDATE1 ---
History and Physical Update Update Date/Time: 02/09/22 07:14 History and Physical has been reviewed, including an updated exam of the patient. There are NO changes in the patient's condition. Risks, benefits, and alternatives have been discussed and questions answered. Patient agrees to proceed with procedure.
[2022-02-09] MEDS: LACTATED RINGERS 1,000 ML 30 ML IV CONT (09:55)
[2022-02-09] MEDS: ceFAZolin 2 GM/D5W 50 ML 2 GM/50 ML BAG IVPB (10:35)
[2022-02-09] MEDS: LIDOCAINE HCL 2% GEL UROJET 10 ML PKG MUCOUS MEM (10:54)
--- NOTE | 2022-02-09 11:07 | ECG_ITS ---
Measurements Intervals [place] Rate: 87 P: AR: 0 QRS: 33 QRSD: 102 T: 58 QT: 379 QTc: 458 Interpretive Statements ATRIAL FIBRILLATION DELAYED PRECORDIAL R/S TRANSITION BORDERLINE ST-T WAVE ABNORMALITY- INF/HIGH LAT LEADS BASELINE ARTIFACT- I, II ABNORMAL ECG COMPARED TO ECG 03/23/2021 16:42:01 ATRIAL FIBRILLATION NOW PRESENT ST (T WAVE) DEVIATION NOW PRESENT Electronically Signed On 02-09-2022 12:30:07 ELEVATOR OPERATOR by Brian Anderson D.O.
--- NOTE | 2022-02-09 11:48 | SUR.PHASEI ---
RN spoke to Sneha Jerry about new onset A-fib at 1135.
--- NOTE | 2022-02-09 11:54 | SUR.PHASEI ---
RN is just monitoring patient while waiting for cardiology to see her.
--- NOTE | 2022-02-09 13:41 | PM.CNCAR ---
Assessment and Plan Assessment and plan (1) Atrial fibrillation: Code(s): I48.91 - Unspecified atrial fibrillation Status: Acute Plan this is a 76-year-old woman with angiographically modest coronary disease being treated medically. She came into the hospitalist morning as an outpatient for a cystoscopic procedure which has been completed. She is been noted to be in atrial fibrillation with good rate control and no symptoms. Obviously we have no idea of knowing when this arrhythmia began. She was in sinus rhythm last month when she saw my partner in the office. At this time the only recommendation is that she should be anticoagulated. Her anti-platelet therapy aspirin and clopidogrel should be discontinued. Apixaban should be started 5 mg q.12 hours as soon is it is okay with the surgeon. She can still go home today from her cystoscopic procedure. We will call in a prescription for her apixaban to the pharmacy. I will also ensure that she gets a follow-up appointment with my partner, Dr. Hernandez relatively soon and short interval so he can formulate plans for long-term management of the atrial fibrillation. Juan David Khan MD [facility] History of Present Illness History of Present Illness Consult date/time: 02/09/22 13:41 Consult reason: atrial fibrillation Reason For Visit: ID Narrative: This is a very pleasant 76-year-old woman who I have not seen before but she follows with my partner, Dr. Hernandez. I am seeing her at the request of the anesthesia staff because she was found to be in atrial fibrillation this morning. The patient came in as an outpatient for a scheduled cystoscopic procedure which has been completed. When she arrived in the hospital it was noted that she was in atrial fibrillation with a controlled heart rate in the 80s and with which she appears to be asymptomatic. She has no previous history of atrial fibrillation and follows with my partner, Dr. Hernandez because of a history of angiographically modest coronary artery disease and LV systolic dysfunction. She was previously seen by different cardiology group and underwent an angiogram here at this hospital in September of [address] elevation [place]. Modest coronary disease is being treated medically and she is on standard guideline directed medical therapy for LV dysfunction with improvement. She had an echocardiogram as an outpatient earlier this summer showing normal LV systolic function. She saw my partner in routine office follow-up about a month ago and was in sinus rhythm by examination at that time. She has no awareness of palpitations shortness of breath orthopnea PND edema or chest pain. Review of Systems Constitutional: Constitutional: Reports no additional constitutional complaints Eyes: Eyes: Reports no additional eye complaints ENT: Reports system reviewed and no additional complaints, except as documented Cardiovascular: Cardiovascular: Reports no additional cardiovascular complaints Respiratory: Respiratory: Reports no additional respiratory complaints Gastrointestinal: Gastrointestinal: Reports no additional gastrointestinal complaints Genitourinary: Genitourinary: Reports nocturia Musculoskeletal: Musculoskeletal: Reports no additional musculoskeletal complaints Neurologic: Reports system reviewed and no additional complaints, except as documented Endocrine: Endocrine: Reports no additional endocrine complaints Hematologic/Lymphatic: Hematologic/Lymphatic: Reports no additional hematologic/lymphatic complaints Allergic/Immunologic: Allergic/Immunologic: Reports no additional allergic/immunologic complaints PMFSH Past Medical History Medical History Acute and chronic respiratory failure Acute exacerbation of CHF (congestive heart failure) Acute respiratory failure Alcohol abuse Azotemia Cervical disc disorder with radiculopathy of cervicothoracic region CH
--- NOTE | 2022-02-09 13:53 | SUR.PHASEI ---
1325: RN tried to call Dr. Khan's office to inform him about when Dr. Parker said it was okay to start Eliquis. There was no answer. RENETTA Reeves called Dr. Khan's cell phone and he was putting in notes and sending a prescription for Eliquis to patient's pharmacy. Per Dr. Khan patient is to start Elquis tomorrow.
--- NOTE | 2022-02-12 10:14 | W.PM.PROC2 ---
Procedure Note - Detailed Date of Procedure 02/09/22 Pre-op Diagnosis Intrinsic sphincter deficiency Post-op Diagnosis Same Procedure Performed Cystoscopy with suburethral injection of implant material Surgeon Les Parker MD Anesthesia MAC Indications She has mixed incontinence. She receives Botox for overactive bladder. He is here today for a bulking agent for her intrinsic sphincter deficiency. She understands risks of bleeding, infection, lack of efficacy, obstructive voiding, need for repeat procedures. She also understands she will still need treatment of her overactive bladder. She to proceed Findings See below Description of Procedure She was correctly identified. Informed consent obtained. She from the operating room. She was given MAC anesthesia. She was placed in dorsal lithotomy position. She was prepped draped sterile fashion. Time-out performed. Cystoscopy revealed normal-appearing bladder and urethra. It was open consistent with intrinsic sphincter deficiency. I chose a site 2 cm distal to the bladder neck. I injected my bulking agent circumferentially. There was excellent bulking effect. Her bladder was left partially full. She was awakened transferred to PACU in stable condition. Estimated Blood Loss 1 Urine Output 150 Drains No Pathology None sent Complications No immediate complications Condition Stable
== END 2022-02-09 15:20 | disposition home or self-care (01) ==
PROVIDERS: PCP Family Medicine; Visit Provider Urology
PROC: 3E0K8GC Introduction of Other Therapeutic Substance into Genitourinary Tract, Via Natural or Artificial Opening Endoscopic (ICD-10-PCS; CPT 51715; principal; 2022-02-09 11:00)
DX: N36.42 Intrinsic sphincter deficiency (ISD) (principal); I48.91 Unspecified atrial fibrillation; I25.10 Atherosclerotic heart disease of native coronary artery without angina pectoris; J96.11 Chronic respiratory failure with hypoxia; I50.9 Heart failure, unspecified; E78.2 Mixed hyperlipidemia; I25.2 Old myocardial infarction; G62.9 Polyneuropathy, unspecified; G25.81 Restless legs syndrome; F32.A Depression, unspecified; Z87.891 Personal history of nicotine dependence; Z79.51 Long term (current) use of inhaled steroids; Z79.82 Long term (current) use of aspirin; E66.01 Morbid (severe) obesity due to excess calories; Z68.41 Body mass index [BMI] 40.0-44.9, adult
CPT/HCPCS: 51715; 93005; J0690; J2370; J2704; J3010; J7120; L8606

== ENCOUNTER 2022-05-02 19:32 | Outpatient (NON) | payer MEDICARE, SELFPAY ==
[2022-05-02 21:29] LABS: Appearance Urine Cloudy (Clear); Bilirubin Urine Negative (Negative); Blood Urine 2+ (Negative); Glucose Urine UA Trace mg/dL (Negative); Ketones Urine Negative (Negative); Leukocyte Esterase Ur 3+ LEU/UL (Negative); Nitrate Urine Negative (Negative); Protein Urine Negative (Negative); Specific Grav Ur 1.015 (1.001-1.035); Urobilinogen Urine 0.2 mg/dL (<2.0); pH Urine 6.5 (5.0-9.0)
[2022-05-02 21:35] LABS: Add Urine Microscopic? YES; Color Urine Light Yellow (Yellow)
[2022-05-02 21:40] LABS: RBC Urine >75 /hpf (0-2); Squamous Epithelial Cell Urine Occasional /hpf (Few); WBC Urine >75 /hpf
== END 2022-05-02 19:33 | disposition home or self-care (01) ==
LOC: ANHLAB 19:35
PROVIDERS: PCP Family Medicine; Visit Provider Nurse Practitioner
DX: R30.0 Dysuria (principal); R39.9 Unspecified symptoms and signs involving the genitourinary system
CPT/HCPCS: 81001; 87077; 87086; 87186

== ENCOUNTER 2022-05-11 15:12 | Outpatient (CLI) | payer MEDICARE, SELFPAY | END 2022-05-11 15:13 | disposition home or self-care (01) | PROVIDERS: PCP Family Medicine; Visit Provider Nurse Practitioner | DX: R39.9 Unspecified symptoms and signs involving the genitourinary system (principal) | CPT/HCPCS: 87086 ==

== ENCOUNTER 2022-07-11 16:04 | Outpatient (CLI) | payer MEDICARE, SELFPAY ==
[2022-07-11 16:50] LABS: Anion Gap 6 mmol/L (8-16); Blood Urea Nitrogen 23 mg/dL (7-17); Calcium 8.5 mg/dL (8.4-10.2); Carbon Dioxide 33 mmol/L (22-30); Chloride 97 mmol/L (98-107); Estimated Glomerular Filt Rate 54; Glucose 95 mg/dL (65-110); Potassium 4.7 mmol/L (3.4-5.0); Sodium 136 mmol/L (137-145)
== END 2022-07-11 16:05 | disposition home or self-care (01) ==
PROVIDERS: PCP Family Medicine; Visit Provider Internal Medicine Cardiovascular Disease
DX: I50.32 Chronic diastolic (congestive) heart failure (principal); I25.10 Atherosclerotic heart disease of native coronary artery without angina pectoris; R09.89 Other specified symptoms and signs involving the circulatory and respiratory systems
CPT/HCPCS: 36415; 80048

== ENCOUNTER 2022-08-29 12:07 | Outpatient (CLI) | payer MEDICARE, SELFPAY ==
--- NOTE | ~2022-08-29 | MM_ITS ---
EXAMINATION: MM screening maria ines BI w maryam HISTORY: Screening TECHNIQUE: Craniocaudal and mediolateral oblique 3-D tomosynthesis images were obtained and synthetic 2-D images were generated. CAD analysis was submitted and interpreted. COMPARISON: Comparison to multiple prior studies sequentially, with oldest reviewed study dated 12/24. BREAST PARENCHYMAL COMPOSITION: Breast composed of scattered areas of fibroglandular density FINDINGS: There is no evidence of suspicious mass, calcification, or architectural distortion to sugg est malignancy in either breast. There has been no suspicious interval change. IMPRESSION: 1. No mammographic evidence of malignancy. 2. Recommend routine screening mammography in one year. BI-RADS Category 1: Negative Reviewed, dictated and finalized at location A.
== END 2022-08-29 12:08 | disposition home or self-care (01) ==
LOC: ANHIMG 12:14
PROVIDERS: PCP Family Medicine; Visit Provider Family Medicine
DX: Z12.31 Encounter for screening mammogram for malignant neoplasm of breast (principal)
CPT/HCPCS: 77063; 77067

== ENCOUNTER 2023-01-28 15:48 | Emergency (ER) | payer MEDICARE, SELFPAY ==
--- NOTE | ~2023-01-28 | CT_ITS ---
EXAMINATION: CT brain wo con DATE: 01/28/2023 16:40 INDICATION: Frequent falls and hallucinations TECHNIQUE: Computed tomography (CT) of the head was performed without intravenous contrast. Sagittal and coronal reconstructions were performed. The mA was adjusted according to patient size. Iterative reconstruction technique was employed. The dose-length product was 605.33 mGy-cm. COMPARISON: head CT dated 06/19/2020 FINDINGS: Evaluation at the level of the skull base is limited by motion artifact. No fracture. No acute intrac ranial hemorrhage, acute infarction or abnormal extra axial fluid collection. Symmetric prominence of the sulci consistent with mild age-appropriate diffuse cerebral volume loss. Ventricles are normal and symmetric. No mass/mass effect. The orbits, paranasal sinuses and mastoid air cells are normal. IMPRESSION: 1. Normal aging brain. No fracture or acute intracranial process. Evaluation somewhat limited at the skull base due to motion artifact. Reviewed, dictated and finalized at location A. T ROLLER WINDER IMPRESSION: 1. Normal aging brain. No fracture or acute intracranial process. Evaluation so mewhat limited at the skull base due to motion artifact.
--- NOTE | ~2023-01-28 | CT_ITS ---
EXAMINATION: CT lumbar spine wo con DATE: 01/28/2023 16:40 INDICATION: fall . TECHNIQUE: Computed tomography (CT) of the lumbar spine was performed without intravenous contrast. A utomated exposure control and iterative reconstruction technique were employed. The dose-length produ ct was 1274.10 mGy-cm. COMPARISON: X-ray sacrum and coccyx 11/08/2018; CT abdomen pelvis 04/25/2016. FINDINGS: Mild lumbar scoliosis. 5 nonrib-bearing lumbar-type vertebral bodies. Pedicles intact. Exag gerated lumbar lordosis. Mild anterior kyphosis at L1-2. Minimal grade 1 listheses at L1-2, L2-3, and L3-4. Multilevel severe degenerative disc disease. Multilevel facet hypertrophy and sclerosis. Moder ate-severe height loss at L3, chronic and stable. Mild anterior wedge deformity at T12-L2. Degenerati ve endplate deformities inferiorly at L1 and superiorly at L2. Multilevel mild and moderate degrees o f neural foraminal narrowing. Moderate central canal narrowing at L1-2. Atherosclerotic aortic calcif ications. IMPRESSION: No acute fracture or traumatic malalignment in the lumbar spine. Multilevel severe degenerative disc disease. Mild-moderate multilevel neural foraminal and moderate c entral canal narrowing at L1-2. No severe central canal narrowing. Old stable L3 burst fracture. Reviewed, dictated and finalized at location K. POINTER CLEANER CAULKER IMPRESSION: No acute fracture or traumatic malalignment in the lumbar spine. Multilevel severe degenerative disc disease. Mild-moderate multilevel neural fo raminal and moderate central canal narrowing at L1-2. No severe central canal n arrowing. Old stable L3 burst fracture.
--- NOTE | ~2023-01-28 | CT_ITS ---
EXAMINATION: CT pelvis wo con DATE: 01/28/2023 16:41 INDICATION: Right hip pain post fall TECHNIQUE: High resolution computed tomography (CT) of the pelvis was performed without intravenous c ontrast. Additional sagittal and coronal reconstructions were performed. Automated exposure control a nd iterative reconstruction technique were employed. The dose-length product was 1007.43 mGy-cm. COMPARISON: CT abdomen and pelvis dated 04/25/2016 FINDINGS: Interval placement of a noncemented right total hip arthroplasty which is in near-anatomic alignment. Stable appearance of an L3 burst fracture with 60% central vertebral body height loss. Additional un changed mild central superior endplate compression fracture at L4. Severe disc height loss at L2-L3. No acute fracture. Mild osteoarthritis at the left hip and bilateral sacroiliac joints. Moderate and severe lower lumbar facet osteoarthritis. No hip joint effusions or other abnormal fluid collections. Persistent subcutaneous stranding lateral to the right hip and buttock which given the provided hist ory could represent a posttraumatic contusion. Small fat-containing ventral hernia to the right of th e umbilicus. Bladder and visualized portions of bowels are unremarkable. The uterus is not identified and has likely been surgically resected. No pathologically enlarged pelvic or inguinal lymphadenopat hy. IMPRESSION: 1. Right total hip arthroplasty in near-anatomic alignment. No acute osseous abnormality. 2. Severe lumbar spondylosis with no change since 2016 in a moderate to severe L3 burst fracture and mild L4 superior endplate compression fracture. Reviewed, dictated and finalized at location A. HT COMMUNICATIONS OPERATOR IMPRESSION: 1. Right total hip arthroplasty in near-anatomic alignment. No acute osseous ab normality. 2. Severe lumbar spondylosis with no change since 2016 in a moderate to severe L3 burst fracture and mild L4 superior endplate compression fracture.
[2023-01-28 15:50] VITALS: BP 119/67; PULSE 101; RESP 19; TEMP 36.9; O2SAT 94
--- NOTE | 2023-01-28 16:09 | ED.GENADULT ---
HPI - General Adult General Chief complaint: Psychiatric Symptoms Stated complaint: psych History of Present Illness HPI narrative: Ping Waller is a 77 y/o female who presents today with a friend. She states that she took her b/p 2 days ago and it was 70/14 and then she started to hallucinate and was trying to make dinner for people that weren't there. She states that she fell about 9 times yesterday because her legs just keep giving out. She does take blood thinners not sure which one, denies hitting her head and denies any LOC. She states that her right hip has hurt since the falls because she kept falling on her butt. Denies chest pain/ SOB/ fever/ chills - she did not want to come in but her PCP instructed her to. No cervical pain with palpation No thoracic pain with palpation + Lumbar pain and right hip pain Alert and oriented X4 Related Data Home Medications Medication Instructions Recorded Confirmed albuterol sulfate 2.5 mg/3 mL 2.5 mg inhalation BID PRN 09/30/20 05/11/22 (0.083 %) solution for nebulization Shortness Of Breath aspirin 81 mg tablet 81 mg PO DAILY 09/30/20 05/11/22 cholecalciferol (vitamin D3) 50 50 mcg PO DAILY 09/30/20 05/11/22 mcg (2,000 unit) tablet diphenhydramine HCl 25 mg capsule 25 mg PO HS 09/30/20 05/11/22 (Allergy (diphenhydramine)) loperamide 2 mg capsule 4 mg PO DAILY 09/30/20 05/11/22 melatonin 10 mg tablet 10 mg PO HS 09/30/20 05/11/22 furosemide 40 mg tablet (Lasix) 40 mg PO DAILY 02/06/22 05/11/22 Allergies Allergy/AdvReac Type Severity Reaction Status Date / Time Penicillins Allergy Mild Rash Verified 05/25/22 11:29 thiopental [From Pentothal] AdvReac Intermediate Nausea and Verified 05/25/22 11:29 Vomiting PMFSH Past Medical History Medical History Acute and chronic respiratory failure Acute exacerbation of CHF (congestive heart failure) Acute respiratory failure Alcohol abuse Azotemia Cervical disc disorder with radiculopathy of cervicothoracic region CHF exacerbation Chronic depression Chronic respiratory failure with hypoxia COVID-19 Elevated troponin level Hyperglycemia Hypertensive urgency Lung nodules 09/2018: stable R apex nodule/ multiple other nodules/emphysema LDCT: stable Mixed hyperlipidemia Murmur, cardiac Nicotine dependence, unspecified, 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 Surgical History Surgical History History of appendectomy History of carpal tunnel surgery of left wrist (03/02/20) History of hysterectomy History of total replacement of right shoulder joint History of total right hip arthroplasty Family History Family History Mother Family history of osteoporosis Family history of mental disorder Family history of anemia Family history of arthritis Family history of malignant neoplasm Family history of Alzheimer's disease Patient's mother is Sibling Family history of malignant neoplasm of uterus Family history of malignant neoplasm of cervix Patient's sister is Daughter Crohn disease Other Cerebrovascular accident Family history of cardiovascular disease Family history of glaucoma Social History Social History Social History: Surrogate decision maker: Shantal Pond, daughter. Code status: Full code. Smoking packs per day: 1 Smoking cigarettes per day: 20.0 Years smoked: 50 Smoking pack-years: 50.00 Smoking status: Former smoker Tobacco type: cigarettes Smoking
[2023-01-28 17:10] LABS: Basophils Percent Auto 0.4 % (0.2-1.2); Eosinophils Absolute Auto 0.2 K/mm3 (0-0.3); Eosinophils Percent Auto 2.8 % (0-4.4); Hematocrit 36.1 % (37.0-47.0); Hemoglobin 10.9 g/dL (12.0-15.0); Immature Granulocyte Absolute 0.01 K/mm3 (0.00-0.031); Immature Granulocyte Percent A 0.2 % (0-0.5); Lymphocytes Absolute Auto 0.86 K/mm3 (0.9-3.2); Lymphocytes Percent Auto 15.8 % (18.3-44.2); Mean Corpuscular HGB Conc 30.2 g/dl (32-36); Mean Corpuscular Hemoglobin 30.3 pg (26-34); Mean Corpuscular Volume 100.3 fl (80-100); Mean Platelet Volume 10.7 fl (7.4-10.4); Monocytes Absolute Auto 0.4 K/mm3 (0.1-0.6); Monocytes Percent Auto 8.1 % (2.6-8.5); Neutrophils Percent Auto 72.7 % (45.5-73.1); Platelet Count Result 161 k/mm3 (150-375); Red Cell Distribution Width 14.2 % (11.5-14.5); White Blood Count 5.4 K/mm3 (4.5-10.0)
[2023-01-28 17:11] LABS: Appearance Urine Clear (Clear); Bilirubin Urine Negative (Negative); Blood Urine Negative (Negative); Color Urine Yellow (Yellow); Glucose Urine UA 1+ mg/dL (Negative); Ketones Urine Negative (Negative); Leukocyte Esterase Ur Negative LEU/UL (Negative); Nitrate Urine Negative (Negative); Protein Urine Negative (Negative); Specific Grav Ur 1.008 (1.001-1.035); Urobilinogen Urine 0.2 mg/dL (<2.0); pH Urine 5.5 (5.0-9.0)
[2023-01-28 17:24] LABS: Add Urine Microscopic? NO
[2023-01-28 17:24] LABS: Alanine Aminotransferase 18 U/L (6-35); Albumin Level 4.1 g/dL (3.5-5.1); Alkaline Phosphatase 62 U/L (38-126); Anion Gap 4 mmol/L (8-16); Aspartate Amino Transferase 33 U/L (14-36); Bilirubin,Total 1.3 mg/dL (0.2-1.3); Blood Urea Nitrogen 25 mg/dL (7-17); Calcium 8.9 mg/dL (8.4-10.2); Carbon Dioxide 34 mmol/L (22-30); Chloride 99 mmol/L (98-107); Estimated CRCL calculation 38 ml/min; Estimated Glomerular Filt Rate 40; Glucose 103 mg/dL (65-110); Potassium 4.5 mmol/L (3.4-5.0); Sodium 137 mmol/L (137-145)
[2023-01-28 17:35] LABS: Troponin I 0.015 ng/mL (0.000-0.034)
[2023-01-28 18:13] LABS: Amphetamine Screen Urine Negative (Negative); Barbiturate Screen Urine Negative (Negative); Benzodiazepines Screen Urine Negative (Negative); Cannabinoid Screen Urine Negative (Negative); Cocaine Screen Urine Negative (Negative); Methadone Screen Urine Negative (Negative); Opiate Screen Urine Negative (Negative); Phencyclidine Screen Urine Negative (Negative)
[2023-01-28 19:34] VITALS: BP 104/49; PULSE 94; RESP 21; TEMP 36.5; O2SAT 90
== END 2023-01-28 19:35 | disposition left against medical advice (07) ==
PROVIDERS: Emergency Provider Nurse Practitioner Family; PCP Family Medicine
DX: S79.911A Unspecified injury of right hip, initial encounter (principal); I50.9 Heart failure, unspecified; I25.2 Old myocardial infarction; J96.21 Acute and chronic respiratory failure with hypoxia; I27.20 Pulmonary hypertension, unspecified; E78.2 Mixed hyperlipidemia; G62.9 Polyneuropathy, unspecified; G25.81 Restless legs syndrome; M16.11 Unilateral primary osteoarthritis, right hip; K51.90 Ulcerative colitis, unspecified, without complications; Z96.641 Presence of right artificial hip joint; Z96.611 Presence of right artificial shoulder joint; Z86.16 Personal history of COVID-19; Z87.891 Personal history of nicotine dependence; Z90.710 Acquired absence of both cervix and uterus; Z79.82 Long term (current) use of aspirin; Z79.01 Long term (current) use of anticoagulants; Z79.899 Other long term (current) drug therapy; M51.36 Other intervertebral disc degeneration, lumbar region; M47.816 Spondylosis without myelopathy or radiculopathy, lumbar region; W18.39XA Other fall on same level, initial encounter
CPT/HCPCS: 36415; 70450; 72131; 72192; 80053; 80307; 81003; 84484; 85025; 99284

== ENCOUNTER 2023-01-29 14:30 | Inpatient (IN) | payer MEDICARE, SELFPAY ==
[2023-01-29] VITALS (30 sets, daily range): BP systolic 92–151; BP diastolic 56–82; PULSE 76–130; RESP 15–26; TEMP 36.1–36.6; O2SAT 91–98; BMI 47.5
--- NOTE | ~2023-01-29 | CT_ITS ---
EXAMINATION: CTA brain carotid DATE: 01/29/2023 20:24 INDICATION: concern for posterior/vestibular stroke TECHNIQUE: Computed tomographic angiography (CTA) of the head and neck was performed with 100 mL Omni paque-350 intravenous contrast. CTA of the neck was performed with intravenous contrast. Automated ex posure control and iterative reconstruction technique were employed. The dose-length product was 1133 .84 mGy-cm. Maximum intensity projection and volume rendered 3D-reconstructions were created by the t echnologist on a separate workstation. COMPARISON: CT brain same date. FINDINGS: CTA HEAD: No large vessel occlusion, aneurysm, high flow vascular malformation, nidus or extravasation. CTA NECK: Aortic arch and proximal great vessels: Atherosclerotic calcifications at the visualized aortic arch and proximal great vessels. Motion artifact partially obscures the proximal aspect of the bilateral c arotid arteries. Right common carotid, carotid bifurcation, and internal carotid artery: Moderate calcified plaque at the bifurcation.There is 0% stenosis of the proximal right internal carotid artery relative to normal distal artery lumen diameter (NASCET criteria). Left common carotid, carotid bifurcation, and internal carotid artery: Moderate calcified plaque at t he bifurcation.There is 0% stenosis of the proximal left internal carotid artery relative to normal d istal artery lumen diameter (NASCET criteria). Vertebral arteries: No significant plaque or stenosis. Other findings: Nodular and consolidative opacities in the left upper lobe. IMPRESSION: Motion artifact moderately obscures the proximal bilateral carotid arteries, within that constraint, no large vessel occlusion. No significant carotid or vertebral stenosis. Left upper lobe pneumonia. Reviewed, dictated and finalized at location K. FISHER IMPRESSION: Motion artifact moderately obscures the proximal bilateral carotid arteries, wi thin that constraint, no large vessel occlusion. No significant carotid or vert ebral stenosis. Left upper lobe pneumonia.
--- NOTE | ~2023-01-29 | CT_ITS ---
EXAMINATION: CT brain wo con DATE: 01/29/2023 16:59 INDICATION: disoriented, gait ataxia, hallucination, drooling . TECHNIQUE: Computed tomography (CT) of the head was performed without intravenous contrast. The mA wa s adjusted according to patient size. Iterative reconstruction technique was employed. The dose-lengt h product was 1210.67 mGy-cm. COMPARISON: 01/28/23. FINDINGS: Motion limited exam. No acute intracranial hemorrhage or extra-axial fluid collection. No hydrocephalus, mass, or herniation. No acute ischemic infarct. Unremarkable dural venous sinus attenuation. No acute osseous abnormality. The aerated spaces are clear. Mild atrophy and chronic white matter change. Atherosclerotic intracranial calcification. IMPRESSION: Motion limited exam. Within that constraint, no acute intracranial process. Reviewed, dictated and finalized at location K. RO[facility] POL[facility]
--- NOTE | ~2023-01-29 | XR_ITS ---
EXAMINATION: XR chest 1V portable INDICATION: Shortness of breath TECHNIQUE: Portable AP chest at 1543 hours COMPARISON: 03/23/2021 FINDINGS: There are diffuse interstitial and airspace opacities throughout all lung zones, worst in t he left midlung zone. No pleural effusion or pneumothorax. Cardiomegaly is noted. There are changes r ight total shoulder arthroplasty. 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 IMPRESSION: 1. Diffuse lung disease which could reflect pulmonary edema and/or or pneumonia and/or atelectasis. Reviewed, dictated and finalized at location L. ON CARE ASSOCIATE
--- NOTE | ~2023-01-29 | MR_ITS ---
EXAMINATION: MR brain/brain stem wo/w con DATE: 01/30/2023 17:12 INDICATION: Posterior/vestibular stroke. TECHNIQUE: Magnetic resonance imaging (MRI) of the brain and brainstem was performed without and with 20 mL MultiHance intravenous contrast. COMPARISON: Brain MRI 08/03/2019, head CT 01/29/2023 FINDINGS: There are scattered areas of nonspecific increased T2-weighted signal intensity in the cere bral white matter and benedict, which is within normal limits for the patient's age. There is no intracra nial hemorrhage, acute infarction, or abnormal intracranial mass lesion. The ventricles are normal in size. The orbits are normal. There is mild mucosal thickening in left maxillary sinus. There are old healed fractures of the left zygomaticomaxillary complex. The mastoid air cells are normal. IMPRESSION: 1. Normal aging brain. Reviewed, dictated and finalized at location E. R ATTENDANT IMPRESSION: 1. Normal aging brain.
--- NOTE | ~2023-01-29 | XR_ITS ---
Portable chest x-ray Comparison: 01/29/2023 Clinical History: Respiratory failure Findings: There is central interstitial change and probable mild pulmonary edema. No definite pleura l effusion. Cardiomediastinal silhouette is stable. Right shoulder arthroplasty noted. Impression: Central congestive change and mild pulmonary edema. Reviewed, dictated and finalized at [facility]. ING PARALEGAL Impression: Central congestive change and mild pulmonary edema.
--- NOTE | 2023-01-29 15:06 | ECG_ITS ---
Measurements Intervals [place] Rate: 114 P: HI: 0 QRS: 58 QRSD: 94 T: -16 QT: 310 QTc: 428 Interpretive Statements ATRIAL FIBRILLATION WITH RAPID VENTRICULAR RESPONSE VENTRICULAR PREMATURE COMPLEXES BORDERLINE R WAVE PROGRESSION, ANTERIOR LEADS BASELINE ARTIFACT- I, II, III, AVR, AVL, AVF, V1-V6 ABNORMAL ECG COMPARED TO ECG 02/09/2022 11:21:16 HEART RATE HAS INCREASED Electronically Signed On 01-29-2023 15:34:45 TRIPLE DRUM OPERATOR by Brian Anderson D.O.
[2023-01-29 16:01] LABS: Basophils Percent Auto 0.1 % (0.2-1.2); Hemoglobin 10.6 g/dL (12.0-15.0); Immature Granulocyte Absolute 0.09 K/mm3 (0.00-0.031); Immature Granulocyte Percent A 0.7 % (0-0.5); Lymphocytes Absolute Auto 0.44 K/mm3 (0.9-3.2); Lymphocytes Percent Auto 3.3 % (18.3-44.2); Mean Corpuscular HGB Conc 29.4 g/dl (32-36); Mean Corpuscular Hemoglobin 30.5 pg (26-34); Mean Corpuscular Volume 103.4 fl (80-100); Mean Platelet Volume 10.6 fl (7.4-10.4); Monocytes Absolute Auto 0.6 K/mm3 (0.1-0.6); Monocytes Percent Auto 4.7 % (2.6-8.5); Neutrophils Absolute Auto 12.3 K/mm3 (1.3-6.7); Neutrophils Percent Auto 91.2 % (45.5-73.1); Platelet Count Result 139 k/mm3 (150-375); Red Blood Count 3.48 M/mm3 (4.2-5.4); Red Cell Distribution Width 14.6 % (11.5-14.5); White Blood Count 13.5 K/mm3 (4.5-10.0)
[2023-01-29 16:10] LABS: Alanine Aminotransferase 17 U/L (6-35); Alkaline Phosphatase 51 U/L (38-126); Anion Gap 3 mmol/L (8-16); Aspartate Amino Transferase 28 U/L (14-36); Bilirubin,Total 2.5 mg/dL (0.2-1.3); Blood Urea Nitrogen 29 mg/dL (7-17); Calcium 8.4 mg/dL (8.4-10.2); Carbon Dioxide 35 mmol/L (22-30); Chloride 101 mmol/L (98-107); Estimated CRCL calculation 44 ml/min; Estimated Glomerular Filt Rate 44; Glucose 121 mg/dL (65-110); Potassium 4.7 mmol/L (3.4-5.0); Sodium 139 mmol/L (137-145)
[2023-01-29 16:18] LABS: INR 1.2; Prothrombin Time 15.4 Seconds (11.1-14.7)
[2023-01-29 16:19] LABS: Partial Thromboplastin Time 26.2 SECONDS (22.3-36.8)
[2023-01-29 16:25] LABS: NT Pro B Type Natriuretic Pept 8260 pg/mL (19.9-100); Troponin I 0.018 ng/mL (0.000-0.034)
[2023-01-29] MEDS: PRAMIPEXOLE 1 MG TABLET PO (17:07)
--- NOTE | 2023-01-29 18:08 | ED.SOB ---
HPI - SOB/Dyspnea General Chief Complaint: Shortness of Breath/Dyspnea Stated Complaint: low oxygen level Time Seen by Provider: 01/29/23 15:27 Source: patient and other (friend) History of Present Illness HPI Narrative: Patient is a R hand dominant female with Crohns, heart failure, sleep apnea (intermittently using cpap), restless leg syndrome and afib (on anticoagulation) who presents with multiple complaints. Triage intake is concerned that patient is hypoxic. It is determined she is to be on 4LPM home O2 but didn't wear it to the hospital and was found to be saturating 78% on room air on arrival. Improved with home settings. Patient reports she has been disoriented since Saturday. She notes she is intermittently seeing double but not now. She has fallen 9 times and states she was having auditory and visual hallucinations earlier. She has been slurring her words and drooling. She saw her quantitative manager dr Flako Miranda earlier today and he recommended she come to the Emergency department. She lives by herself but presents with a friend who is similarly concerned for her, stating she has been dropping objects all day (e.g. water bottle). Of note, she presented yesterday with similar symptoms. States she possibly had a TIA versus myocardial infarction 2 years ago. Medications: balsalazide, Vit D3, empaglifozin, Entresto, furosemide, gabapentin, loperamide, metoprolol, KCl, pramipexole , riveroxabian, rosuvastatin, sertraline Related Data Home Medications Medication Instructions Recorded Confirmed albuterol sulfate 2.5 mg/3 mL 2.5 mg inhalation BID PRN 09/30/20 01/30/23 (0.083 %) solution for nebulization Shortness Of Breath empagliflozin 10 mg tablet 10 mg PO DAILY 01/30/23 01/30/23 (Jardiance) rivaroxaban 20 mg tablet (Xarelto) 20 mg PO DAILY 01/30/23 01/30/23 Allergies Allergy/AdvReac Type Severity Reaction Status Date / Time Penicillins Allergy Mild Rash Verified 05/25/22 11:29 thiopental [From Pentothal] AdvReac Intermediate Nausea and Verified 05/25/22 11:29 Vomiting PMFSH Past Medical History Medical History (Updated 01/30/23 @ 23:55 by Radha Eden MD) Acute and chronic respiratory failure Acute exacerbation of CHF (congestive heart failure) Acute respiratory failure Alcohol abuse Atrial fibrillation Azotemia Cervical disc disorder with radiculopathy of cervicothoracic region CHF exacerbation Chronic depression Chronic respiratory failure with hypoxia COVID-19 Elevated troponin level Hyperglycemia Hypertensive urgency Lung nodules 09/2018: stable R apex nodule/ multiple other nodules/emphysema LDCT: stable Mixed hyperlipidemia Murmur, cardiac Nicotine dependence, unspecified, 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 Surgical History Surgical History History of appendectomy History of carpal tunnel surgery of left wrist (03/02/20) History of hysterectomy History of total replacement of right shoulder joint History of total right hip arthroplasty Family History Family History Mother Family history of osteoporosis Family history of mental disorder Family history of anemia Family history of arthritis Family history of malignant neoplasm Family history of Alzheimer's disease Patient's mother is Sibling Family history of malignant neoplasm of uterus Family history of malignant neoplasm of cervix Patient's sister is Daughter Crohn disease Other Cerebrovascular accident Family history of cardiovascular disease Family history of glaucoma Social History Social
[2023-01-29 18:40] LABS: Alveolar/Arterial O2 Gradient 94.8 mmHg; Base Excess ABG 3.4 mEq/l (+/-2.0); Fractional Inspired Oxygen 36 %; HCO3 ABG 31.9 mEq/l (22.0-26.0); Oxyhemoglobin 92.4 % THb (90.0-100.0); PO2 ABG 80.7 mmHg (80.0-100.0); PO2 FiO2 Ratio Arterial Blood 2.24 %; Total Hemoglobin 11.5 g/dL (12.0-18.0)
[2023-01-29 18:44] LABS: pH ABG 7.276 (7.350-7.450)
[2023-01-29 18:45] LABS: Device NASAL CANNULA; Modified Allen's Test Pass; Site Drawn LEFT RADIAL
[2023-01-29 19:08] LABS: Influenza A QL RT-PCR Negative (Negative); Influenza B QL RT-PCR Negative (Negative); RSV RNA, RT-PCR Negative (Negative); SARS-CoV-2 RNA PCR Negative (Negative)
[2023-01-29] MEDS: LORazepam INJ (*CRX) 2 MG/ML VIAL 1 MG IV PUSH ×2 (20:03→20:18)
--- NOTE | 2023-01-29 20:24 | PC.NURSE ---
Patient agitated in CT; EDP aware and orders more Ativan to be administered in CT. Patient calm in response.
--- NOTE | 2023-01-29 23:18 | ADMGEN ---
This patient, Ping Waller, was admitted to IMU Room 202-01 at 2237. Patient/family oriented to hospital policies and general routines including ID bracelet, bed and alarms, visiting hours, pain management, procedures, bathroom and other care routines, personal items, smoking policy, room service/diet, and visiting hours. Information on how to activate the Rapid Response Team has been discussed. Patient/Family are encouraged to report perceived risks to care and to ask questions if they do not understand what they are told or what they should do.
[2023-01-30] VITALS (24 sets, daily range): BP systolic 121–140; BP diastolic 75–90; PULSE 85–134; RESP 16–29; TEMP 36.4–37.1; O2SAT 90–98
--- NOTE | 2023-01-30 | ECHO_ITS ---
Patient Info Name: Ping Waller Age: 77 years : 1945 Gender: Female Ht: 62 in Wt: 259 lbs BSA: 2.34 m2 HR: 96 bpm BP: 132 / 90 mmHg Heart Rhythm: Tachycardia Technical Quality: Fair Exam Date: 01/30/2023 1:34 PM Exam Location: Echo Lab Patient Status: Inpatient Admit Date: 01/29/2023 Staff Ordering Physician: Kyler Almanzar MD Vessel Captain: Nu Eastman RDCS Attending Provider: Jennyfer Hoang DO Referring Physician: Yohan ALVAREZ; Exam Type: CA echo doppler color flow Study Info Indications - chf Complete two-dimensional, color flow and Doppler transthoracic echocardiogram is performed. Summary 1. Complete two-dimensional, color flow and Doppler transthoracic echocardiogram is performed. 2. Left ventricular chamber dimension is normal. 3. Left ventricular systolic function is normal, estimated at 50-55%. 4. Right ventricular systolic function is normal. 5. Left atrial chamber dimension is moderately enlarged. 6. Right atrial chamber dimension is moderately enlarged. 7. There is trace mitral valve regurgitation. 8. There is trace tricuspid valve regurgitation. 9. There is trivial pericardial effusion. Left Ventricle Left ventricular chamber dimension is normal. Left ventricular systolic function is normal, estimated at 50-55%. There is no increased left ventricular wall thickness. The left ventricular diastolic function is indeterminate. Right Ventricle Right ventricular chamber dimension is normal. Right ventricular systolic function is normal. Left Atria Left atrial chamber dimension is moderately enlarged. Right Atria Right atrial chamber dimension is moderately enlarged. Atrial Septum Intact interatrial septum visualized by color flow imaging. Aortic Valve The aortic valve is probable trileaflet. There is no aortic valve stenosis. There is no aortic valve regurgitation. There is mild aortic valve calcification. Pulmonic Valve The pulmonic valve is not well visualized. Mitral Valve There is trace mitral valve regurgitation. Tricuspid Valve There is trace tricuspid valve regurgitation. Pericardium/Pleural There is trivial pericardial effusion. Inferior Vena Cava Dilated inferior vena cava with >50% collapse upon inspiration consistent with elevated right atrial pressure, 8 mmHg. Aorta The aortic root size at the sinus of Valsalva is normal. Left Ventricular Outflow Tract Name Value Normal LVOT 2D LVOT Diameter 2.0 cm LVOT Doppler LVOT Peak Gradient 3 mmHg LVOT Mean Gradient 2 mmHg LVOT VTI 17 cm LVOT VTI/AV VTI Ratio 0.8 LVOT Stroke Volume 51 ml LVOT CO 4.9 l/min LVOT CI 2.1 l/min/m2 Pulmonic Valve Name Value Normal RVOT Doppler RVOT Peak Gradient 7 mmHg
--- NOTE | 2023-01-30 00:23 | PM.IMHP ---
H&P: HPI History of Present Illness Date/Time: 01/30/23 00:23 Chief Complaint: AMS Narrative: This is a 77-year-old female with past medical history significant for alcohol dependence, obstructive sleep apnea, obesity, cardiomyopathy, congestive heart failure, COPD/emphysema chronic hypoxic respiratory failure on supplemental oxygen at home, ulcerative colitis, restless leg syndrome, pulmonary hypertension peripheral neuropathy. Patient was brought to the emergency room due to altered mental status, speech disturbance, unusual last seem at her usual was 2 days prior. Patient drinks 2-3 drinks through the day of vodka. Patient was placed on BiPAP. At the time of my visit patient is obtunded on BiPAP most of the history was obtained from son who was at bedside. Preliminary workup was significant for ABG with pH of 7.2, pCO2 of 70 PO2 of 80, creatinine 1.2 BUN 29, hemoglobin of 10, MCV 102. Chest x-ray was reported as: EXAMINATION: XR chest 1V portable INDICATION: Shortness of breath TECHNIQUE: Portable AP chest at 1543 hours COMPARISON: 03/23/2021 FINDINGS: There are diffuse interstitial and airspace opacities throughout all lung zones, worst in the left midlung zone. No pleural effusion or pneumothorax. Cardiomegaly is noted. There are changes right total shoulder arthroplasty. There is advanced osteoarthritis of the left internal ureteral joint. IMPRESSION: 1. Diffuse lung disease which could reflect pulmonary edema and/or or pneumonia and/or atelectasis. EXAMINATION: CT brain wo con DATE: 01/29/2023 16:59 INDICATION: disoriented, gait ataxia, hallucination, drooling . TECHNIQUE: Computed tomography (CT) of the head was performed without intravenous contrast. The mA was adjusted according to patient size. Iterative reconstruction technique was employed. The dose-length product was 1210.67 mGy-cm. COMPARISON: 01/28/23. FINDINGS: Motion limited exam. No acute intracranial hemorrhage or extra-axial fluid collection. No hydrocephalus, mass, or herniation. No acute ischemic infarct. Unremarkable dural venous sinus attenuation. No acute osseous abnormality. The? aerated spaces are clear. Mild atrophy and chronic white matter change. Atherosclerotic intracranial calcification. IMPRESSION:? Motion limited exam. Within that constraint, no acute intracranial process EXAMINATION: CTA brain carotid DATE: 01/29/2023 20:24 INDICATION: concern for posterior/vestibular stroke TECHNIQUE: Computed tomographic angiography (CTA) of the head and neck was performed with 100 mL Omnipaque-350 intravenous contrast. CTA of the neck was performed with intravenous contrast. Automated exposure control and iterative reconstruction technique were employed. The dose-length product was 1133.84 mGy-cm. Maximum intensity projection and volume rendered 3D-reconstructions were created by the technologist on a separate workstation. COMPARISON: CT brain same date. FINDINGS: CTA HEAD: No large vessel occlusion, aneurysm, high flow vascular malformation, nidus or extravasation. CTA NECK: Aortic arch and proximal great vessels: Atherosclerotic calcifications at the visualized aortic arch and proximal great vessels. Motion artifact partially obscures the proximal aspect of the bilateral carotid arteries. Right common carotid, carotid bifurcation, and internal carotid artery: Moderate calcified plaque at the bifurcation.There is 0% stenosis of the proximal right internal carotid artery relative to normal distal artery lumen diameter (NASCET criteria).? Left common carotid, carotid bifurcation, and internal carotid artery: Moderate calcified plaque at the bifurcation.There is 0% stenosis of the proximal left internal carotid artery relative to normal distal artery lumen diameter (NASCET criteria). Vertebral arteries: No significant plaque or stenosis. Other findings: Nodular and consolidative opacities in the left upper lobe. IMPRESS
[2023-01-30] MEDS: DOXYCYCLINE 100 MG/NS 100 ML 100 MG/100 ML BAG IVPB ×3 (00:35→20:44)
[2023-01-30 08:41] LABS: Alveolar/Arterial O2 Gradient 97.9 mmHg; Base Excess ABG 4.8 mEq/l (+/-2.0); Fractional Inspired Oxygen 35 %; HCO3 ABG 32.9 mEq/l (22.0-26.0); Oxygen Content ABG 15.1 %vol (16.0-22.0); Oxygen Saturation ABG 92.4 % (95.0-100.0); Oxyhemoglobin 92.9 % THb (90.0-100.0); PO2 ABG 72.1 mmHg (80.0-100.0); PO2 FiO2 Ratio Arterial Blood 2.06 %; Total Hemoglobin 11.5 g/dL (12.0-18.0)
[2023-01-30 08:43] LABS: Modified Allen's Test Pass; PCO2 ABG 68.4 mmHg (35.0-45.0); Site Drawn RIGHT RADIAL
[2023-01-30 08:44] LABS: Device BIPAP
[2023-01-30 08:46] LABS: Expiratory Pressure 5 cmH2O; Inspiratory Pressure 10 cmH2O
[2023-01-30 09:11] LABS: Glucose Point of Care 85 mg/dl (65-105)
[2023-01-30 10:08] LABS: Alveolar/Arterial O2 Gradient 105.9 mmHg; Base Excess ABG 3.1 mEq/l (+/-2.0); Carboxyhemoglobin 0.3 % THb (0-2.0); Fractional Inspired Oxygen 35 %; HCO3 ABG 30.8 mEq/l (22.0-26.0); Methemoglobin ABG 0.2 %THb (0-1.5); Oxyhemoglobin 92.5 % THb (90.0-100.0); Total Hemoglobin 11.5 g/dL (12.0-18.0); pH ABG 7.305 (7.350-7.450)
[2023-01-30 10:10] LABS: PCO2 ABG 63.4 mmHg (35.0-45.0); Site Drawn RIGHT RADIAL
[2023-01-30 10:11] LABS: Device BIPAP; Modified Allen's Test Pass
[2023-01-30 10:12] LABS: Expiratory Pressure 6 cmH2O; Inspiratory Pressure 14 cmH2O
[2023-01-30] MEDS: THIAMINE HCL 200 MG/2 ML VIAL 100 MG IV PUSH (11:26)
[2023-01-30] MEDS: ROSUVASTATIN 10 MG TABLET 20 MG PO (11:27)
[2023-01-30] MEDS: SERTRALINE HCL 50 MG TABLET 100 MG PO (11:27)
[2023-01-30] MEDS: GABAPENTIN 300 MG CAPSULE PO ×3 (11:27→16:24)
[2023-01-30] MEDS: FOLIC ACID 1 MG TABLET PO (11:27)
[2023-01-30] MEDS: METOPROLOL SUCCINATE EXT REL 25 MG TABCR PO (11:27)
[2023-01-30] MEDS: SACUBITRIL/VALSARTAN 24-26 MG TABLET 1 TAB PO ×2 (11:27→20:38)
[2023-01-30] MEDS: RIVAROXABAN 20 MG TABLET PO (11:27)
--- NOTE | 2023-01-30 13:24 | PM.IMPN ---
Progress Note: A&P Assessment and Plan (1) Altered mental status: Code(s): R41.82 - Altered mental status, unspecified Status: Acute Assessment and Plan: Patient brought in for AMS. She was here on 01/28 in the ED but eloped after being seen by provider. CT head showing no acute findings. CTA head/neck showing motion artifact but overall no large vessel occlusion but noted to have COURTNEY PNA. BCx already collected and are NGTD. ABG 7.27/70/81 on 4L. Suspect her confusion related to hypercarbia. Symptoms better with improvement in her pCO2. Issac check B12, folate and TSH. Follow (2) Acute on chronic respiratory failure with hypoxia and hypercapnia: Code(s): J96.21 - Acute and chronic respiratory failure with hypoxia; J96.22 - Acute and chronic respiratory failure with hypercapnia Status: Acute Assessment and Plan: As above. BiPAP started and settings adjusted. pH improved and CO2 decreased. Trial off BiPAP now. Allow her to eat. O2 at 4L to keep Spo2>92%. Continue to wear BiPAP at night and with naps. (3) Pneumonia: Code(s): J18.9 - Pneumonia, unspecified organism Status: Acute Assessment and Plan: CXR showing diffuse lung disease, edema vs PNA vs atelectasis. CT scan showing COURTNEY PNA. PNA could be contributing to her AMS and respiratory symptoms. Doxycycline added. She is allergic to PCN. Add nebilizer treatments. (4) CHF (congestive heart failure): Code(s): I50.9 - Heart failure, unspecified Status: Acute Assessment and Plan: Pateint with chronic systolic CHF. BNP 8260 but lower then in the past. Echo showing moderate concentric LVH, EF 70% and grade II diastolic dysfunction. Repeat echocardiogram ordered. She has a hx of reduced EF. Continue Entresto, Toprol. (5) Atrial fibrillation: Code(s): I48.91 - Unspecified atrial fibrillation Status: Acute Assessment and Plan: Patient with known AFib. Rate controlled. Continue Toprol XL. Continue Xarelto. Monitor on tele (6) COPD with emphysema: Qualifiers: Emphysema type: unspecified Qualified Code(s): J43.9 - Emphysema, unspecified Code(s): J43.9 - Emphysema, unspecified Status: Acute Assessment and Plan: Patient with known COPD. No longer smoking. Add breathing treatments (7) Alcohol dependence: Code(s): F10.20 - Alcohol dependence, uncomplicated Status: Acute Assessment and Plan: Patient was educated about the benefits of abstaining from alcohol. Will start thiamine and folate. CIWA protocol ordered. Will order benzodiazepines for signs/symptoms of withdrawal. (8) Obstructive sleep apnea: Code(s): G47.33 - Obstructive sleep apnea (adult) (pediatric) Status: Acute Assessment and Plan: Noncompliance with CPAP. Patient was educated about the benefits of being compliant with treatment. (9) Acute kidney injury superimposed on CKD: Code(s): N17.9 - Acute kidney failure, unspecified; N18.9 - Chronic kidney disease, unspecified Status: Acute Assessment and Plan: Baseline creatinine is around 1.0. Creatinine elevated 1.3 on admission. Most likely prerenal azotemia. Creatinine trending downward. Continue to follow. (10) Nicotine dependence, unspecified, in remission: Code(s): F17.201 - Nicotine dependence, unspecified, in remission Status: Acute Assessment and Plan: Unchanged Plan DVT prophylaxis -Xarelto Code status -full 40 minutes spent on critical care time with acute resp failure Subjective Date/time seen: 01/30/23 13:24 Interval history: 77yo female with COPD, chronic respiratory failure on 4L O2, CHF and alcoholism here for AMS. Assuming care. Chart reviewed. She is awake and alert now. She wers 4L O2 at home but does not wear o2 when she is out of the house. She has a portable O2 tank but does not use often when away from home. She has CPA
[2023-01-30 13:46] LABS: Glucose Point of Care 88 mg/dl (65-105)
--- NOTE | 2023-01-30 14:07 | PCPTNOTE ---
Attempted PT evaluation, pt getting echo at this time. Will follow.
[2023-01-30] MEDS: LEVALBUTEROL NEB 1.25 MG/3 ML INHALATION ×2 (14:14→20:25)
--- NOTE | 2023-01-30 15:28 | WPDNEURCNPN ---
Assessment and Plan Assessment and plan (1) Altered mental status: Code(s): R41.82 - Altered mental status, unspecified Status: Acute Plan 1 chronic alcoholism 2 neuropathy 3 acute on chronic respiratory failure. Facial CTA of the head and neck is negative, and the CT of the brain does not show any epidural or subdural or hydrocephalus. 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 Her medications included diuretic furosemide 40mg daily, with known to be allergic to penicillin and thiopentol', she has ongoing history of acute on chronic respiratory failure, congestive heart failure, significant alcohol abuse, chronic depression, peripheral neuropathy, and restless leg syndrome, total replacement the right shoulder joint and left carpal tunnel release she is a former smoker currently alcohol intake at least 21 drinks per week on initial evaluation her vital signs were normal except pulse 101 hemoglobin was 10.9, drug screen was negative [facility] Past Medical History Medical History (Updated 01/30/23 @ 13:47 by Kirt Stevens MD) Acute and chronic respiratory failure Acute exacerbation of CHF (congestive heart failure) Acute respiratory failure Alcohol abuse Atrial fibrillation Azotemia Cervical disc disorder with radiculopathy of cervicothoracic region CHF exacerbation Chronic depression Chronic respiratory failure with hypoxia COVID-19 Elevated troponin level Hyperglycemia Hypertensive urgency Lung nodules 09/2018: stable R apex nodule/ multiple other nodules/emphysema LDCT: stable Mixed hyperlipidemia Murmur, cardiac Nicotine dependence, unspecified, 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 Surgical History Surgical History History of appendectomy History of carpal tunnel surgery of left wrist (03/02/20) History of hysterectomy History of total replacement of right shoulder joint History of total right hip arthroplasty Family History Family History Mother Family history of osteoporosis Family history of mental disorder Family history of anemia Family history of arthritis Family history of malignant neoplasm Family history of Alzheimer's disease Patient's mother is Sibling Family history of malignant neoplasm of uterus Family history of malignant neoplasm of cervix Patient's sister is Daughter Crohn disease Other Cerebrovascular accident Family history of cardiovascular disease Family history of glaucoma Social History Social History Social History: Surrogate decision maker: Shantal Pond, daughter. Code status: Full code. Smoking packs per day: 1 Smoking cigarettes per day: 20.0 Years smoked: 50 Smoking pack-years: 50.00 Smoking status: Former smoker Tobacco type: cigarettes Smoking end date: 09/23/11 Alcohol intake: current Drinks per week: 21 Substance use: never Substance use type: does not use Lack of Transportation: No Lack of Food: Never True
[2023-01-30] MEDS: LORazepam INJ (*CRX) 2 MG/ML VIAL 1 MG IV PUSH (16:24)
[2023-01-30 17:40] LABS: Glucose Point of Care 135 mg/dl (65-105)
[2023-01-30] MEDS: LORazepam INJ (*CRX) 2 MG/ML VIAL IV PUSH (20:35)
[2023-01-30] MEDS: PRAMIPEXOLE 1 MG TABLET PO (20:38)
[2023-01-30] MEDS: chlordiazePOXIDE (*CRX) 25 MG CAPSULE PO (20:43)
[2023-01-30 21:01] LABS: Glucose Point of Care 142 mg/dl (65-105)
[2023-01-30] MEDS: METOPROLOL TARTRATE INJ 5 MG/5 ML VIAL (21:37)
--- NOTE | 2023-01-30 22:01 | PC.NURSE ---
RT attempting to administer nebulizer. Pt thrashing in bed, pulling off O2. Staff at bedside to reposition pt and try to redirect behavior. Pt A&O x1. HR up to 160s, CIWA 19. Face is dusky, breathing labored. Capillary refill greater than 2 on all extremities. Bipap placed on pt. Staff remained at bedside while Dr. Almanzar was notified. One time dose of Ativan ordered and administered. Pt's HR remained elevated so Dr. Almanzar was notified a second time of HR. New order for IV Metoprolol one time dose ordered and administered.
[2023-01-30 23:30] LABS: Alveolar/Arterial O2 Gradient 190.7 mmHg; Base Excess ABG 3.8 mEq/l (+/-2.0); Carboxyhemoglobin 0.3 % THb (0-2.0); Fractional Inspired Oxygen 50 %; HCO3 ABG 30.7 mEq/l (22.0-26.0); Methemoglobin ABG 0.3 %THb (0-1.5); Oxygen Saturation ABG 97.2 % (95.0-100.0); Oxyhemoglobin 96.2 % THb (90.0-100.0); PCO2 ABG 57.6 mmHg (35.0-45.0); PO2 FiO2 Ratio Arterial Blood 2.02 %; Reduced Hemoglobin 3.2 %THb (0-5.0); pH ABG 7.344 (7.350-7.450)
[2023-01-30 23:35] LABS: Device BIPAP; Modified Allen's Test Pass; Site Drawn RIGHT RADIAL
[2023-01-30 23:36] LABS: Expiratory Pressure 6 cmH2O; Inspiratory Pressure 14 cmH2O
[2023-01-31] VITALS (32 sets, daily range): BP systolic 108–122; BP diastolic 49–94; PULSE 84–140; RESP 18–30; TEMP 36.1–37.1; O2SAT 90–100
[2023-01-31 00:05] LABS: Lactic Acid Reflex 0.9 mmol/L (0.7-2.0)
[2023-01-31] MEDS: LEVALBUTEROL NEB 1.25 MG/3 ML INHALATION ×4 (02:56→20:29)
[2023-01-31 04:46] LABS: Basophils Percent Auto 0.2 % (0.2-1.2); Eosinophils Percent Auto 0.4 % (0-4.4); Hematocrit 34.5 % (37.0-47.0); Hemoglobin 9.9 g/dL (12.0-15.0); Immature Granulocyte Absolute 0.03 K/mm3 (0.00-0.031); Immature Granulocyte Percent A 0.4 % (0-0.5); Lymphocytes Absolute Auto 0.75 K/mm3 (0.9-3.2); Lymphocytes Percent Auto 9.3 % (18.3-44.2); Mean Corpuscular HGB Conc 28.7 g/dl (32-36); Mean Corpuscular Hemoglobin 30.2 pg (26-34); Mean Corpuscular Volume 105.2 fl (80-100); Mean Platelet Volume 11.5 fl (7.4-10.4); Monocytes Absolute Auto 0.5 K/mm3 (0.1-0.6); Monocytes Percent Auto 6.3 % (2.6-8.5); Neutrophils Absolute Auto 6.8 K/mm3 (1.3-6.7); Neutrophils Percent Auto 83.4 % (45.5-73.1); Platelet Count Result 118 k/mm3 (150-375); Red Blood Count 3.28 M/mm3 (4.2-5.4); Red Cell Distribution Width 14.3 % (11.5-14.5); White Blood Count 8.1 K/mm3 (4.5-10.0)
[2023-01-31 05:25] LABS: Anisocytosis 1+ (NORMAL); Hypochromasia 1+ (NORMAL); Schistocytes None Seen (NORMAL)
[2023-01-31 06:56] LABS: Alanine Aminotransferase 25 U/L (6-35); Albumin Level 3.6 g/dL (3.5-5.1); Alkaline Phosphatase 85 U/L (38-126); Anion Gap 3 mmol/L (8-16); Aspartate Amino Transferase 92 U/L (14-36); Bilirubin,Total 1.4 mg/dL (0.2-1.3); Blood Urea Nitrogen 30 mg/dL (7-17); Calcium 8.9 mg/dL (8.4-10.2); Carbon Dioxide 32 mmol/L (22-30); Chloride 103 mmol/L (98-107); Estimated CRCL calculation 45 ml/min; Estimated Glomerular Filt Rate 48; Glucose 106 mg/dL (65-110); Magnesium 2.4 mg/dL (1.6-2.3); Potassium 4.6 mmol/L (3.4-5.0); Sodium 138 mmol/L (137-145)
[2023-01-31 07:54] LABS: Folic Acid 10.6 ng/mL (2.76->20)
[2023-01-31 09:06] LABS: Glucose Point of Care 101 mg/dl (65-105)
[2023-01-31] MEDS: GABAPENTIN 300 MG CAPSULE PO ×3 (09:16→17:02)
[2023-01-31] MEDS: METOPROLOL SUCCINATE EXT REL 25 MG TABCR PO (09:16)
[2023-01-31] MEDS: CYANOCOBALAMIN 1,000 MCG TABLET 1000 MCG PO (09:16)
[2023-01-31] MEDS: FOLIC ACID 1 MG TABLET PO (09:16)
[2023-01-31] MEDS: SACUBITRIL/VALSARTAN 24-26 MG TABLET 1 TAB PO ×2 (09:16→20:31)
[2023-01-31] MEDS: FUROSEMIDE INJ 40 MG/4 ML VIAL 20 MG IV PUSH (09:16)
[2023-01-31] MEDS: THIAMINE HCL 200 MG/2 ML VIAL 100 MG IV PUSH (09:16)
[2023-01-31] MEDS: SERTRALINE HCL 50 MG TABLET 100 MG PO (09:16)
[2023-01-31] MEDS: RIVAROXABAN 20 MG TABLET PO (09:16)
[2023-01-31] MEDS: ROSUVASTATIN 10 MG TABLET 20 MG PO (09:16)
[2023-01-31] MEDS: DOXYCYCLINE 100 MG/NS 100 ML 100 MG/100 ML BAG IVPB ×2 (09:17→20:35)
[2023-01-31] MEDS: CYANOCOBALAMIN INJ 1,000 MCG/ML VIAL 1000 MCG IM (09:17)
[2023-01-31] MEDS: chlordiazePOXIDE (*CRX) 25 MG CAPSULE PO (09:20)
--- NOTE | 2023-01-31 12:13 | WPDNEUROPN ---
Progress Note: A&P Assessment and Plan (1) Altered mental status: Code(s): R41.82 - Altered mental status, unspecified Status: Acute (2) Pneumonia: Qualifiers: Laterality: bilateral Lung location: upper lobe of lung Pneumonia type: due to unspecified organism Qualified Code(s): J18.9 - Pneumonia, unspecified organism Code(s): J18.9 - Pneumonia, unspecified organism Status: Acute (3) Alcohol dependence: Code(s): F10.20 - Alcohol dependence, uncomplicated Status: Acute (4) B12 deficiency: Code(s): E53.8 - Deficiency of other specified B group vitamins Status: Acute Plan Ms. Waller is a 77 year old female with a history of atrial fibrillation, CHF, CKD, COPD, alcohol dependence, cardiomyopathy, TRAVIS, ulcerative colitis, prediabetes, HLD, RLS, peripheral neuropathy who presented for altered mental status in the setting of pneumonia and borderline low B12 level. Mental status seems to be improving with treatment. Subjective Date/time seen: 01/31/23 12:13 Interval history: Ms. Waller is a 77 year old female with a history of atrial fibrillation, CHF, CKD, COPD, alcohol dependence, cardiomyopathy, TRAVIS, ulcerative colitis, prediabetes, HLD, RLS, peripheral neuropathy who presented for altered mental status . She was ultimately found to have COURTNEY pneumonia, with hypercarbia. B12 level was borderline low at 298. She has been started on B12 supplementation as well as daily thiamine/folate. Her UA and toxicology screen were negative. MRI brain was normal. CTA brain/carotid negative for LVO. Patient currently on BiPAP at time of my evaluation. Review of Systems Review of Systems: On BiPAP ROS unobtainable: Yes unobtainable due to medical condition Exam Const: General: comfortable and no acute distress Eyes: Pupils: Equal, round and reactive pupils present Resp: Effort & Inspection: normal respiratory effort Skin: General skin exam: normal color Neuro: Other: Somnolent but AOx3 while awake, Pupils equal and reactive bilaterally, moving all extremities against gravity when noxious stimulus applied. Extrem: General: normal to inspection Objective Data Vital Signs Vital Signs: Vital Signs - 24 hr 01/30/23 14:10 01/30/23 14:20 01/30/23 17:00 Temperature 36.4 C L Pulse Rate 93 95 121 H Pulse Rate [Monitor] Respiratory Rate 20 20 22 H Blood Pressure 125/86 Pulse Oximetry 94 Oxygen Delivery Oxygen Flow Rate Fraction of Inspired Oxygen 01/30/23 16:00 01/30/23 20:00 01/30/23 16:00 Temperature 36.9 C Pulse Rate 122 H Pulse Rate [Monitor] 101 H Respiratory Rate 16 Blood Pressure 125/86 140/77 Pulse Oximetry 94 94 Oxygen Delivery Nasal Cannula Oxygen Flow Rate 4 Fraction of Inspired Oxygen 01/30/23 14:00 01/30/23 16:00 01/30/23 18:00 Temperature Pulse Rate 110 H 99 104 H Pulse Rate [Monitor] Respiratory Rate Blood Pressure Pulse Oximetry Oxygen Delivery Oxygen Flow Rate Fraction of Inspired Oxygen 01/30/23 20:25 01/30/23 20:36 01/30/23 20:37 Temperature Pulse Rate 127 H 95 Pulse Rate [Monitor] Respiratory Rate 25 H 28 H Blood Pressure Pulse Oximetry 92 Oxygen Delivery Oxygen Flow Rate 5 Fraction of Inspired Oxygen 01/30/23 20:48 01/30/23 21:37 01/30/23 20:00 Temperature Pulse Rate 130 H 134 H Pulse Rate [Monitor] Respiratory Rate 28 H Blood Pressure Pulse Oximetry 95 90 Oxygen Delivery BiPAP Nasal Cannula Oxygen Flow Rate 4 Fraction of Inspired Oxygen 01/30/23 23:42 01/30/23 20:00 01/30/23 22:00 Temperature 36.8 C Pulse Rate 113 H 117 H 107 H Pulse Rate [Monitor] Respiratory Rate 20 Blood Pressure 133/76 Pulse Oximetry 97 Oxygen Delivery Oxygen Flow Rate Fraction of Inspired Oxygen 01/31/23 00:00 01/31/23 00:00 01/31/23 02:00 Temperature Pulse Rate 100 84 Pulse Rate [Mon
--- NOTE | 2023-01-31 13:22 | PM.IMPN ---
Progress Note: A&P Assessment and Plan (1) Altered mental status: Code(s): R41.82 - Altered mental status, unspecified Status: Acute Assessment and Plan: Patient brought in for AMS. She was here on 01/28 in the ED but eloped after being seen by provider. CT head showing no acute findings. CTA head/neck showing motion artifact but overall no large vessel occlusion but noted to have COURTNEY PNA. B12, folate and TSH noted; replace B12. Low B12 could explain the low plt count. Brain MRI showing no acute findings. BCx NGTD. ABG 7.27/70/81 on 4L. Suspect her confusion related to hypercarbia. Symptoms overall better with improvement in her pCO2 but also consider underlying mild dementia given her agitation and confusion overnight (or withdrawal?) despite improved pCO2. Follow. Try trazodone at night (2) Acute on chronic respiratory failure with hypoxia and hypercapnia: Code(s): J96.21 - Acute and chronic respiratory failure with hypoxia; J96.22 - Acute and chronic respiratory failure with hypercapnia Status: Acute Assessment and Plan: As above. BiPAP started and settings adjusted. pH improved and CO2 decreased. O2 at 4L to keep Spo2>92%. ABG today showing 7.34/57.6/101 on bipap now. DDimer positive at 0.6 but on anticoagulation. Continue to wear BiPAP at night and with naps. (3) Pneumonia: Qualifiers: Laterality: bilateral Lung location: upper lobe of lung Pneumonia type: due to unspecified organism Qualified Code(s): J18.9 - Pneumonia, unspecified organism Code(s): J18.9 - Pneumonia, unspecified organism Status: Acute Assessment and Plan: CXR showing diffuse lung disease, edema vs PNA vs atelectasis. CT scan showing COURTNEY PNA. PNA could be contributing to her AMS and respiratory symptoms. Doxycycline added. She is allergic to PCN. CXR today showing mild pulmonary edema. Continue abx and nebulizer treatments. Lasix x1. (4) CHF (congestive heart failure): Qualifiers: Heart failure chronicity: acute on chronic Heart failure type: unspecified Qualified Code(s): I50.9 - Heart failure, unspecified Code(s): I50.9 - Heart failure, unspecified Status: Acute Assessment and Plan: Pateint with chronic systolic CHF. BNP 8260 but lower then in the past. Echo showing EF 50-55% with biatrial enlargement and indeterminate diastolic dysfunction. Continue Entresto, Toprol. Lasix once (5) Atrial fibrillation: Qualifiers: Atrial fibrillation type: unspecified chronic Qualified Code(s): I48.20 - Chronic atrial fibrillation, unspecified Code(s): I48.91 - Unspecified atrial fibrillation Status: Acute Assessment and Plan: Patient with known AFib. Rate controlled. Continue Toprol XL. Continue Xarelto. Oral metoprolol once. Monitor on tele (6) COPD with emphysema: Qualifiers: Emphysema type: unspecified Qualified Code(s): J43.9 - Emphysema, unspecified Code(s): J43.9 - Emphysema, unspecified Status: Acute Assessment and Plan: Patient with known COPD. No longer smoking. Not on inhalers Continue Xopenex. (7) Alcohol dependence: Code(s): F10.20 - Alcohol dependence, uncomplicated Status: Acute Assessment and Plan: Patient was educated about the benefits of abstaining from alcohol. Contnue thiamine and folate. CIWA protocol with score 5-19. Continue prn benzodiazepines for signs/symptoms of withdrawal. (8) Obstructive sleep apnea: Code(s): G47.33 - Obstructive sleep apnea (adult) (pediatric) Status: Acute Assessment and Plan: Noncompliance with CPAP. Patient was educated about the benefits of being compliant with treatment. (9) Acute kidney injury superimposed on CKD: Code(s): N17.9 - Acute kidney failure, unspecified; N18.9 - Chronic kidney disease, unspecified Status: Acute Assessment and Plan: Baseline cr
[2023-01-31] MEDS: METOPROLOL TARTRATE 25 MG TABLET PO (14:18)
[2023-01-31] MEDS: traZODone HCL 25 MG TABLET PO (20:31)
[2023-01-31] MEDS: PRAMIPEXOLE 1 MG TABLET PO (20:31)
[2023-01-31 20:47] LABS: Glucose Point of Care 181 mg/dl (65-105)
[2023-01-31] MEDS: LACTATED RINGERS 1,000 ML 100 ML IV CONT (22:03)
[2023-01-31] MEDS: LORazepam INJ (*CRX) 2 MG/ML VIAL 1 MG IV PUSH (22:46)
--- NOTE | 2023-01-31 23:09 | PC.NURSE ---
nurse spoke with [employer] regarding patient HR . Ivy gave order for lorazepam 0.5mg
[2023-02-01] VITALS (27 sets, daily range): BP systolic 99–138; BP diastolic 62–84; PULSE 84–140; RESP 18–26; TEMP 36.2–36.6; O2SAT 92–99
[2023-02-01] MEDS: dilTIAZem 100 MG/100 ML 100 MG/100 ML BAG IV CONT (01:07)
[2023-02-01] MEDS: dilTIAZem HCl INJ 25 MG/5 ML VIAL IV PUSH (01:25)
--- NOTE | 2023-02-01 01:38 | PC.NURSE ---
nurse called Dr. Pérez regarding patient HR contiunes to raise into the 130's 140's. gave order to start Cardizem drip at 5ml
[2023-02-01] MEDS: LEVALBUTEROL NEB 1.25 MG/3 ML INHALATION ×4 (02:03→20:21)
[2023-02-01 05:05] LABS: Basophils Percent Auto 0.2 % (0.2-1.2); Eosinophils Absolute Auto 0.1 K/mm3 (0-0.3); Eosinophils Percent Auto 0.8 % (0-4.4); Hematocrit 35.6 % (37.0-47.0); Hemoglobin 10.1 g/dL (12.0-15.0); Immature Granulocyte Absolute 0.02 K/mm3 (0.00-0.031); Immature Granulocyte Percent A 0.3 % (0-0.5); Immature Platelet Fraction Pct 7.2 % (0.9-11.2); Lymphocytes Absolute Auto 0.53 K/mm3 (0.9-3.2); Lymphocytes Percent Auto 8.9 % (18.3-44.2); Mean Corpuscular HGB Conc 28.4 g/dl (32-36); Mean Corpuscular Hemoglobin 30.3 pg (26-34); Mean Corpuscular Volume 106.9 fl (80-100); Mean Platelet Volume 11.4 fl (7.4-10.4); Monocytes Absolute Auto 0.4 K/mm3 (0.1-0.6); Monocytes Percent Auto 6.2 % (2.6-8.5); Neutrophils Percent Auto 83.6 % (45.5-73.1); Platelet Count Result 112 k/mm3 (150-375); Red Blood Count 3.33 M/mm3 (4.2-5.4); Red Cell Distribution Width 14.2 % (11.5-14.5)
[2023-02-01 05:13] LABS: Alanine Aminotransferase 22 U/L (6-35); Albumin Level 3.6 g/dL (3.5-5.1); Alkaline Phosphatase 74 U/L (38-126); Anion Gap 4 mmol/L (8-16); Aspartate Amino Transferase 44 U/L (14-36); Bilirubin,Total 1.2 mg/dL (0.2-1.3); Blood Urea Nitrogen 26 mg/dL (7-17); Calcium 9.4 mg/dL (8.4-10.2); Carbon Dioxide 36 mmol/L (22-30); Chloride 101 mmol/L (98-107); Estimated CRCL calculation 54 ml/min; Estimated Glomerular Filt Rate > 60; Glucose 113 mg/dL (65-110); Potassium 4.3 mmol/L (3.4-5.0); Sodium 141 mmol/L (137-145)
[2023-02-01 05:32] LABS: Anisocytosis 1+ (NORMAL); Basophilic Stippling 1+ (NORMAL); Platelet Estimate Adequate (Adequate)
[2023-02-01 05:33] LABS: Hypochromasia 1+ (NORMAL); Schistocytes None Seen (NORMAL)
[2023-02-01 07:32] LABS: Glucose Point of Care 107 mg/dl (65-105)
[2023-02-01] MEDS: LORazepam INJ (*CRX) 2 MG/ML VIAL 1 MG IV PUSH (08:03)
[2023-02-01] MEDS: DOXYCYCLINE 100 MG/NS 100 ML 100 MG/100 ML BAG IVPB ×2 (09:49→19:51)
[2023-02-01] MEDS: RIVAROXABAN 20 MG TABLET PO (09:54)
[2023-02-01] MEDS: SERTRALINE HCL 50 MG TABLET 100 MG PO (09:54)
[2023-02-01] MEDS: GABAPENTIN 300 MG CAPSULE PO ×3 (09:55→17:39)
[2023-02-01] MEDS: METOPROLOL SUCCINATE EXT REL 25 MG TABCR PO (09:55)
[2023-02-01] MEDS: THIAMINE HCL 200 MG/2 ML VIAL 100 MG IV PUSH (09:55)
[2023-02-01] MEDS: FOLIC ACID 1 MG TABLET PO (09:55)
[2023-02-01] MEDS: SACUBITRIL/VALSARTAN 24-26 MG TABLET 1 TAB PO ×2 (09:55→19:51)
[2023-02-01] MEDS: ROSUVASTATIN 10 MG TABLET 20 MG PO (09:55)
[2023-02-01] MEDS: CYANOCOBALAMIN 1,000 MCG TABLET 1000 MCG PO (09:55)
[2023-02-01 12:17] LABS: Glucose Point of Care 122 mg/dl (65-105)
--- NOTE | 2023-02-01 12:38 | PM.IMPN ---
Progress Note: A&P Assessment and Plan (1) Altered mental status: Code(s): R41.82 - Altered mental status, unspecified Status: Acute Assessment and Plan: Patient brought in for AMS. She was here on 01/28 in the ED but eloped after being seen by provider. CT head showing no acute findings. CTA head/neck showing motion artifact but overall no large vessel occlusion but noted to have COURTNEY PNA. B12, folate and TSH noted; B12 low end so replaced. Low B12 could explain the low plt count. Brain MRI showing no acute findings. BCx NGTD. ABG 7.27/70/81 on 4L. Suspect her confusion related to hypercarbia. Symptoms were better with improvement in her pCO2 but now with agitation and confusion overnight (consider withdrawal or with mild dementia). Trazodone started but not helpful. Will change to Seroquel. (2) Acute on chronic respiratory failure with hypoxia and hypercapnia: Code(s): J96.21 - Acute and chronic respiratory failure with hypoxia; J96.22 - Acute and chronic respiratory failure with hypercapnia Status: Acute Assessment and Plan: As above. BiPAP started and settings adjusted. pH improved and CO2 decreased. O2 at 4L to keep Spo2>92%. ABG yesterday showing 7.34/57.6/101 on bipap DDimer positive at 0.6 but on anticoagulation. Continue to wear BiPAP at night and with naps. (3) Pneumonia: Qualifiers: Laterality: bilateral Lung location: upper lobe of lung Pneumonia type: due to unspecified organism Qualified Code(s): J18.9 - Pneumonia, unspecified organism Code(s): J18.9 - Pneumonia, unspecified organism Status: Acute Assessment and Plan: CXR showing diffuse lung disease, edema vs PNA vs atelectasis. CT scan showing COURTNEY PNA. PNA could be contributing to her AMS and respiratory symptoms. Doxycycline added. She is allergic to PCN. CXR 01/31 showing mild pulmonary edema. lasix once given Continue abx and nebulizer treatments. (4) CHF (congestive heart failure): Qualifiers: Heart failure chronicity: acute on chronic Heart failure type: unspecified Qualified Code(s): I50.9 - Heart failure, unspecified Code(s): I50.9 - Heart failure, unspecified Status: Acute Assessment and Plan: Pateint with chronic systolic CHF. BNP 8260 but lower then in the past. Echo showing EF 50-55% with biatrial enlargement and indeterminate diastolic dysfunction. Continue Entresto, Toprol. (5) Atrial fibrillation: Qualifiers: Atrial fibrillation type: unspecified chronic Qualified Code(s): I48.20 - Chronic atrial fibrillation, unspecified Code(s): I48.91 - Unspecified atrial fibrillation Status: Acute Assessment and Plan: Patient with known AFib. Rate became uncontrolled last night. Diltiazem drip started Continue Toprol XL but advance dose. Continue Xarelto. Monitor on tele (6) COPD with emphysema: Qualifiers: Emphysema type: unspecified Qualified Code(s): J43.9 - Emphysema, unspecified Code(s): J43.9 - Emphysema, unspecified Status: Acute Assessment and Plan: Patient with known COPD. No longer smoking. Not on inhalers Continue Xopenex. (7) Alcohol dependence: Code(s): F10.20 - Alcohol dependence, uncomplicated Status: Acute Assessment and Plan: Possible withdrawal symptoms now. CIWA wa up to 16 last night but better now. Continue to monitor CIWA. Libriumand Ativan available as needed for elevated CIWA Continue thiamine and folate. Patient has been educated about the benefits of abstaining from alcohol. (8) Obstructive sleep apnea: Code(s): G47.33 - Obstructive sleep apnea (adult) (pediatric) Status: Acute Assessment and Plan: Noncompliance with CPAP. Patient was educated about the benefits of being compliant with treatment. (9) Acute kidney injury superimposed on CKD: Code(s): N17.9 - Acute kidney carolin
[2023-02-01] MEDS: metroNIDAZOLE 500 MG/ISO 100ML 500 MG/100 ML BAG 100 MG IVPB ×2 (17:39→21:15)
[2023-02-01] MEDS: METOPROLOL TARTRATE 25 MG TABLET PO (17:39)
[2023-02-01 18:26] LABS: Glucose Point of Care 115 mg/dl (65-105)
[2023-02-01] MEDS: QUEtiapine FUMARATE 25 MG TABLET PO (19:52)
[2023-02-01] MEDS: chlordiazePOXIDE (*CRX) 25 MG CAPSULE PO (19:52)
[2023-02-01] MEDS: PRAMIPEXOLE 1 MG TABLET PO (19:52)
[2023-02-02] VITALS (29 sets, daily range): BP systolic 97–144; BP diastolic 54–99; PULSE 91–139; RESP 17–24; TEMP 36.3–36.7; O2SAT 94–99
[2023-02-02] MEDS: LEVALBUTEROL NEB 1.25 MG/3 ML INHALATION ×4 (01:40→21:04)
[2023-02-02 04:32] LABS: Basophils Percent Auto 0.2 % (0.2-1.2); Eosinophils Absolute Auto 0.1 K/mm3 (0-0.3); Eosinophils Percent Auto 3.1 % (0-4.4); Hematocrit 34.7 % (37.0-47.0); Immature Granulocyte Absolute 0.02 K/mm3 (0.00-0.031); Immature Granulocyte Percent A 0.4 % (0-0.5); Lymphocytes Absolute Auto 0.75 K/mm3 (0.9-3.2); Lymphocytes Percent Auto 16.9 % (18.3-44.2); Mean Corpuscular HGB Conc 28.8 g/dl (32-36); Mean Corpuscular Hemoglobin 30.3 pg (26-34); Mean Corpuscular Volume 105.2 fl (80-100); Mean Platelet Volume 10.8 fl (7.4-10.4); Monocytes Absolute Auto 0.4 K/mm3 (0.1-0.6); Monocytes Percent Auto 8.3 % (2.6-8.5); Neutrophils Absolute Auto 3.2 K/mm3 (1.3-6.7); Neutrophils Percent Auto 71.1 % (45.5-73.1); Platelet Count Result 101 k/mm3 (150-375); Red Cell Distribution Width 13.9 % (11.5-14.5); White Blood Count 4.5 K/mm3 (4.5-10.0)
[2023-02-02 04:41] LABS: Alanine Aminotransferase 18 U/L (6-35); Albumin Level 3.4 g/dL (3.5-5.1); Alkaline Phosphatase 71 U/L (38-126); Anion Gap 4 mmol/L (8-16); Aspartate Amino Transferase 31 U/L (14-36); Bilirubin,Total 1.5 mg/dL (0.2-1.3); Blood Urea Nitrogen 16 mg/dL (7-17); Calcium 9.1 mg/dL (8.4-10.2); Carbon Dioxide 33 mmol/L (22-30); Chloride 104 mmol/L (98-107); Estimated CRCL calculation 69 ml/min; Estimated Glomerular Filt Rate > 60; Glucose 98 mg/dL (65-110); Potassium 3.8 mmol/L (3.4-5.0); Sodium 141 mmol/L (137-145)
[2023-02-02 05:16] LABS: Alveolar/Arterial O2 Gradient 66.8 mmHg; Base Excess ABG 7.1 mEq/l (+/-2.0); Fractional Inspired Oxygen 30 %; HCO3 ABG 34.8 mEq/l (22.0-26.0); Oxygen Content ABG 15.7 %vol (16.0-22.0); Oxygen Saturation ABG 92.5 % (95.0-100.0); Oxyhemoglobin 92.8 % THb (90.0-100.0); PO2 ABG 69.8 mmHg (80.0-100.0); PO2 FiO2 Ratio Arterial Blood 2.33 %; pH ABG 7.341 (7.350-7.450)
[2023-02-02 05:23] LABS: Modified Allen's Test Pass; PCO2 ABG 65.8 mmHg (35.0-45.0); Site Drawn LEFT RADIAL
[2023-02-02 05:24] LABS: Device NON-INVASIVE VENT
[2023-02-02 05:25] LABS: Non-Invasive Expiratory Pressure 6 CMH2O; Non-Invasive Inspiratory Pressure 14 CMH2O; Non-Invasive Vent Rate 16 /MIN
[2023-02-02] MEDS: metroNIDAZOLE 500 MG/ISO 100ML 500 MG/100 ML BAG 100 MG IVPB ×3 (05:56→23:33)
[2023-02-02] MEDS: DOXYCYCLINE 100 MG/NS 100 ML 100 MG/100 ML BAG IVPB ×2 (09:04→21:20)
--- NOTE | 2023-02-02 09:11 | PCOTNOTE ---
Attempted OT eval at 9:11. Per RN, hold off on evaluation until tomorrow 02/03 due to patient having withdraws today and not being appropriate at this time. Will follow.
--- NOTE | 2023-02-02 10:31 | PM.IMPN ---
Progress Note: A&P Assessment and Plan (1) Altered mental status: Code(s): R41.82 - Altered mental status, unspecified Status: Acute Assessment and Plan: Patient brought in for AMS. She was here on 01/28 in the ED but eloped after being seen by provider. CT head showing no acute findings. CTA head/neck showing motion artifact but overall no large vessel occlusion but noted to have COURTNEY PNA. B12, folate and TSH noted; B12 low end so replaced. Low B12 could explain the low plt count. Brain MRI showing no acute findings. BCx NGTD. ABG 7.27/70/81 on 4L. Suspect her confusion related to hypercarbia. Symptoms were better with improvement in her pCO2 but now with agitation and confusion felt related to withdrawal. Seroquel given at night. Librium scheduled. Will back off on scheduled librium (2) Acute on chronic respiratory failure with hypoxia and hypercapnia: Code(s): J96.21 - Acute and chronic respiratory failure with hypoxia; J96.22 - Acute and chronic respiratory failure with hypercapnia Status: Acute Assessment and Plan: As above. BiPAP started and settings adjusted. pH improved and CO2 decreased. When off mask, contiue O2 at 4L to keep Spo2>92%. ABG this morning showing 7.34/66/70 on bipap DDimer positive at 0.6 but on anticoagulation so felt PE unlikely. Continue to wear BiPAP at night and with naps. (3) Atrial fibrillation: Qualifiers: Atrial fibrillation type: unspecified chronic Qualified Code(s): I48.20 - Chronic atrial fibrillation, unspecified Code(s): I48.91 - Unspecified atrial fibrillation Status: Acute Assessment and Plan: Patient with known AFib. Rate became uncontrolled due to agitation. 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 Continue Xarelto. Still with mild tachycardia but only received one dose of the metoprolol Monitor on tele (4) Pneumonia: Qualifiers: Laterality: bilateral Lung location: upper lobe of lung Pneumonia type: due to unspecified organism Qualified Code(s): J18.9 - Pneumonia, unspecified organism Code(s): J18.9 - Pneumonia, unspecified organism Status: Acute Assessment and Plan: CXR showing diffuse lung disease, edema vs PNA vs atelectasis. CT scan showing COURTNEY PNA. PNA could be contributing to her AMS and respiratory symptoms. Doxycycline added. She is allergic to PCN. CXR 01/31 showing mild pulmonary edema. lasix given once Spoke with family. Patient found to have vomitus in her mask on the morning of admission. Consider aspiration. Flagyl added 01/31. Continue abx and nebulizer treatments. (5) CHF (congestive heart failure): Qualifiers: Heart failure chronicity: acute on chronic Heart failure type: unspecified Qualified Code(s): I50.9 - Heart failure, unspecified Code(s): I50.9 - Heart failure, unspecified Status: Acute Assessment and Plan: Pateint with chronic systolic CHF. BNP 8260 but lower then in the past. Echo showing EF 50-55% with biatrial enlargement and indeterminate diastolic dysfunction. Has negative fluid balance Continue Crestor, Entresto, Toprol. Resume Empagliflozin (6) COPD with emphysema: Qualifiers: Emphysema type: unspecified Qualified Code(s): J43.9 - Emphysema, unspecified Code(s): J43.9 - Emphysema, unspecified Status: Acute Assessment and Plan: Patient with known COPD. No longer smoking. Not on inhalers Continue Xopenex. (7) Alcohol dependence: Code(s): F10.20 - Alcohol dependence, uncomplicated Status: Acute Assessment and Plan: Possible withdrawal symptoms now. CIWA wasup to 16 but better now. Continue to monitor CIWA. Ativan available as needed for elevated CIWA Librium scheduled Continue thiamine and folate. Patient has been educated about the benefits of abstaining from alcohol. Wean Librium (8) Obstr
[2023-02-02] MEDS: CYANOCOBALAMIN 1,000 MCG TABLET 1000 MCG PO (11:26)
[2023-02-02] MEDS: RIVAROXABAN 20 MG TABLET PO (11:26)
[2023-02-02] MEDS: FOLIC ACID 1 MG TABLET PO (11:27)
[2023-02-02] MEDS: SACUBITRIL/VALSARTAN 24-26 MG TABLET 1 TAB PO ×2 (11:27→23:32)
[2023-02-02] MEDS: SERTRALINE HCL 50 MG TABLET 100 MG PO (11:27)
[2023-02-02] MEDS: ROSUVASTATIN 10 MG TABLET 20 MG PO (11:27)
[2023-02-02] MEDS: GABAPENTIN 300 MG CAPSULE PO ×3 (11:27→15:18)
[2023-02-02] MEDS: THIAMINE HCL 200 MG/2 ML VIAL 100 MG IV PUSH (11:28)
[2023-02-02] MEDS: EMPAGLIFLOZIN 10 MG TABLET PO (11:30)
[2023-02-02] MEDS: METOPROLOL TARTRATE 25 MG TABLET PO ×2 (11:30→21:20)
[2023-02-02] MEDS: chlordiazePOXIDE (*CRX) 10 MG CAPSULE PO ×3 (14:57→23:51)
[2023-02-02] MEDS: PRAMIPEXOLE 1 MG TABLET PO (21:20)
[2023-02-02] MEDS: QUEtiapine FUMARATE 25 MG TABLET PO (21:20)
[2023-02-02] MEDS: LORazepam INJ (*CRX) 2 MG/ML VIAL 1 MG IV PUSH (23:32)
[2023-02-03] VITALS (25 sets, daily range): BP systolic 103–122; BP diastolic 64–85; PULSE 90–131; RESP 16–24; TEMP 36–36.6; O2SAT 91–99
[2023-02-03] MEDS: LEVALBUTEROL NEB 1.25 MG/3 ML INHALATION ×4 (02:57→20:03)
[2023-02-03 04:52] LABS: Basophils Percent Auto 0.2 % (0.2-1.2); Eosinophils Absolute Auto 0.2 K/mm3 (0-0.3); Eosinophils Percent Auto 3.4 % (0-4.4); Hematocrit 34.6 % (37.0-47.0); Immature Granulocyte Absolute 0.02 K/mm3 (0.00-0.031); Immature Granulocyte Percent A 0.4 % (0-0.5); Lymphocytes Absolute Auto 0.82 K/mm3 (0.9-3.2); Lymphocytes Percent Auto 17.7 % (18.3-44.2); Mean Corpuscular HGB Conc 28.9 g/dl (32-36); Mean Corpuscular Volume 103.9 fl (80-100); Mean Platelet Volume 10.7 fl (7.4-10.4); Monocytes Absolute Auto 0.4 K/mm3 (0.1-0.6); Monocytes Percent Auto 8.8 % (2.6-8.5); Neutrophils Absolute Auto 3.2 K/mm3 (1.3-6.7); Neutrophils Percent Auto 69.5 % (45.5-73.1); Platelet Count Result 102 k/mm3 (150-375); Red Blood Count 3.33 M/mm3 (4.2-5.4); Red Cell Distribution Width 13.8 % (11.5-14.5); White Blood Count 4.6 K/mm3 (4.5-10.0)
[2023-02-03 05:05] LABS: Albumin Level 3.4 g/dL (3.5-5.1); Anion Gap 6 mmol/L (8-16); Blood Urea Nitrogen 19 mg/dL (7-17); Calcium 9.4 mg/dL (8.4-10.2); Carbon Dioxide 32 mmol/L (22-30); Chloride 103 mmol/L (98-107); Estimated CRCL calculation 69 ml/min; Estimated Glomerular Filt Rate > 60; Glucose 98 mg/dL (65-110); Phosphorus 4.1 mg/dL (2.5-4.5); Potassium 4.2 mmol/L (3.4-5.0); Sodium 141 mmol/L (137-145)
[2023-02-03 05:13] LABS: Anisocytosis 1+ (NORMAL); Large Platelets Present; Microcytosis 1+ (NORMAL); Platelet Estimate Decreased (Adequate)
[2023-02-03 05:14] LABS: Schistocytes None Seen (NORMAL)
[2023-02-03 08:25] LABS: Glucose Point of Care 75 mg/dl (65-105)
[2023-02-03] MEDS: THIAMINE HCL 200 MG/2 ML VIAL 100 MG IV PUSH (08:36)
[2023-02-03] MEDS: CYANOCOBALAMIN 1,000 MCG TABLET 1000 MCG PO (10:51)
[2023-02-03] MEDS: SERTRALINE HCL 50 MG TABLET 100 MG PO (10:52)
[2023-02-03] MEDS: SACUBITRIL/VALSARTAN 24-26 MG TABLET 1 TAB PO ×2 (10:52→21:16)
[2023-02-03] MEDS: GABAPENTIN 300 MG CAPSULE PO ×3 (10:52→17:22)
[2023-02-03] MEDS: METOPROLOL TARTRATE 25 MG TABLET PO (10:53)
[2023-02-03] MEDS: FOLIC ACID 1 MG TABLET PO (10:53)
[2023-02-03] MEDS: RIVAROXABAN 20 MG TABLET PO (10:53)
[2023-02-03] MEDS: ROSUVASTATIN 10 MG TABLET 20 MG PO (10:53)
[2023-02-03] MEDS: EMPAGLIFLOZIN 10 MG TABLET PO (10:54)
--- NOTE | 2023-02-03 12:55 | PM.IMPN ---
Progress Note: A&P Assessment and Plan (1) Altered mental status: Code(s): R41.82 - Altered mental status, unspecified Status: Acute Assessment and Plan: Patient brought in for AMS. She was here on 01/28 in the ED but eloped after being seen by provider. CT head showing no acute findings. CTA head/neck showing motion artifact but overall no large vessel occlusion but noted to have COURTNEY PNA. B12, folate and TSH noted; B12 low end so replaced. Low B12 could explain the low plt count. Brain MRI showing no acute findings. BCx NGTD. PCO2 was 70 with low pH. Suspect her confusion related to hypercarbia. Symptoms were better with improvement in her pCO2 but now with agitation and confusion felt related to alcohol withdrawal. Seroquel given at night. Librium was scheduled but too somnolent at times. Will stop scheduled librium. (2) Acute on chronic respiratory failure with hypoxia and hypercapnia: Code(s): J96.21 - Acute and chronic respiratory failure with hypoxia; J96.22 - Acute and chronic respiratory failure with hypercapnia Status: Acute Assessment and Plan: As above. BiPAP started and settings adjusted. pH improved and CO2 decreased. ABG 02/02 showing 7.34/66/70 on bipap DDimer positive at 0.6 but on anticoagulation so felt PE unlikely. Continue to wear BiPAP at night and with naps. Continue O2 at 4L to keep Spo2>92% while awake (3) Atrial fibrillation: Qualifiers: Atrial fibrillation type: unspecified chronic Qualified Code(s): I48.20 - Chronic atrial fibrillation, unspecified Code(s): I48.91 - Unspecified atrial fibrillation Status: Acute Assessment and Plan: Patient with known AFib. Rate became uncontrolled due to agitation. 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 We continued Xarelto. Still with mild tachycardia at times so will advance metoprolol Monitor on tele (4) Pneumonia: Qualifiers: Laterality: bilateral Lung location: upper lobe of lung Pneumonia type: due to unspecified organism Qualified Code(s): J18.9 - Pneumonia, unspecified organism Code(s): J18.9 - Pneumonia, unspecified organism Status: Acute Assessment and Plan: CXR showing diffuse lung disease, edema vs PNA vs atelectasis. CT scan showing COURTNEY PNA. PNA could be contributing to her AMS and respiratory symptoms. Doxycycline added. She is allergic to PCN. Spoke with family. Patient found to have vomitus in her mask on the morning of admission. Consider aspiration so Flagyl added 01/31. CXR 01/31 showing mild pulmonary edema. lasix given once Continue abx and nebulizer treatments. (5) CHF (congestive heart failure): Qualifiers: Heart failure chronicity: acute on chronic Heart failure type: unspecified Qualified Code(s): I50.9 - Heart failure, unspecified Code(s): I50.9 - Heart failure, unspecified Status: Acute Assessment and Plan: Patient with chronic diastolic CHF. BNP 8260 but lower then in the past. Echo here showing EF 50-55% with biatrial enlargement and indeterminate diastolic dysfunction. Still with crackles so will treat with a few doses of Lasix. May be related to intermittent tachycardia Continue Crestor, Entresto, Toprol and Empagliflozin. Not on diuretics at home. (6) Alcohol dependence: Code(s): F10.20 - Alcohol dependence, uncomplicated Status: Acute Assessment and Plan: Possible withdrawal symptoms now. CIWA hernesto and not above 8 Continue to monitor CIWA. Ativan available as needed for elevated CIWA Stop Librium Continue thiamine and folate. Patient has been educated about the benefits of abstaining from alcohol. (7) COPD with emphysema: Qualifiers: Emphysema type: unspecified Qualified Code(s): J43.9 - Emphysema, unspecified Code(s): J43.9 - Emphysema, unspecified Status: Acute Assessm
[2023-02-03 12:59] LABS: Glucose Point of Care 90 mg/dl (65-105)
--- NOTE | 2023-02-03 14:04 | PCPTNOTE ---
Patient was receiving midline procedure when attempting therapy this afternoon (02/03/23)
[2023-02-03] MEDS: DOXYCYCLINE 100 MG/NS 100 ML 100 MG/100 ML BAG IVPB (14:55)
[2023-02-03] MEDS: chlordiazePOXIDE (*CRX) 10 MG CAPSULE PO (14:55)
[2023-02-03] MEDS: metroNIDAZOLE 500 MG/ISO 100ML 500 MG/100 ML BAG 100 MG IVPB (14:55)
[2023-02-03 16:43] LABS: Glucose Point of Care 96 mg/dl (65-105)
[2023-02-03] MEDS: FUROSEMIDE INJ 40 MG/4 ML VIAL IV PUSH (17:22)
[2023-02-03 20:25] LABS: Pneumococcal Antigen Urine Not Detected (Not Detected)
[2023-02-03 20:26] LABS: Glucose Point of Care 144 mg/dl (65-105)
[2023-02-03] MEDS: QUEtiapine FUMARATE 25 MG TABLET PO (21:16)
[2023-02-03] MEDS: METOPROLOL TARTRATE 50 MG TAB PO (21:16)
[2023-02-03] MEDS: metroNIDAZOLE 250 MG TABLET 500 MG PO (21:16)
[2023-02-03] MEDS: PRAMIPEXOLE 1 MG TABLET PO (21:16)
[2023-02-03] MEDS: DOXYCYCLINE HYCLATE 100 MG TABLET PO (21:16)
[2023-02-04] VITALS (24 sets, daily range): BP systolic 87–122; BP diastolic 42–76; PULSE 90–118; RESP 20–26; TEMP 36.2–36.7; O2SAT 94–98
[2023-02-04] MEDS: LEVALBUTEROL NEB 1.25 MG/3 ML INHALATION ×4 (01:58→19:40)
[2023-02-04 04:55] LABS: Basophils Percent Auto 0.4 % (0.2-1.2); Eosinophils Absolute Auto 0.2 K/mm3 (0-0.3); Eosinophils Percent Auto 3.7 % (0-4.4); Hematocrit 33.3 % (37.0-47.0); Hemoglobin 10.1 g/dL (12.0-15.0); Immature Granulocyte Absolute 0.02 K/mm3 (0.00-0.031); Immature Granulocyte Percent A 0.4 % (0-0.5); Lymphocytes Absolute Auto 0.97 K/mm3 (0.9-3.2); Mean Corpuscular HGB Conc 30.3 g/dl (32-36); Mean Corpuscular Hemoglobin 30.4 pg (26-34); Mean Corpuscular Volume 100.3 fl (80-100); Mean Platelet Volume 11.2 fl (7.4-10.4); Monocytes Absolute Auto 0.4 K/mm3 (0.1-0.6); Monocytes Percent Auto 7.6 % (2.6-8.5); Neutrophils Absolute Auto 3.8 K/mm3 (1.3-6.7); Neutrophils Percent Auto 69.9 % (45.5-73.1); Platelet Count Result 136 k/mm3 (150-375); Red Blood Count 3.32 M/mm3 (4.2-5.4); Red Cell Distribution Width 13.6 % (11.5-14.5); White Blood Count 5.4 K/mm3 (4.5-10.0)
[2023-02-04 05:06] LABS: Alanine Aminotransferase 15 U/L (6-35); Albumin Level 3.2 g/dL (3.5-5.1); Alkaline Phosphatase 63 U/L (38-126); Anion Gap 3 mmol/L (8-16); Aspartate Amino Transferase 20 U/L (14-36); Bilirubin,Total 0.9 mg/dL (0.2-1.3); Blood Urea Nitrogen 19 mg/dL (7-17); Calcium 9.1 mg/dL (8.4-10.2); Carbon Dioxide 36 mmol/L (22-30); Chloride 100 mmol/L (98-107); Estimated CRCL calculation 69 ml/min; Estimated Glomerular Filt Rate > 60; Glucose 98 mg/dL (65-110); Magnesium 1.8 mg/dL (1.6-2.3); Potassium 4.1 mmol/L (3.4-5.0); Sodium 139 mmol/L (137-145)
[2023-02-04] MEDS: metroNIDAZOLE 250 MG TABLET 500 MG PO ×2 (05:25→15:57)
[2023-02-04 08:38] LABS: Glucose Point of Care 90 mg/dl (65-105)
[2023-02-04] MEDS: SACUBITRIL/VALSARTAN 24-26 MG TABLET 1 TAB PO (08:48)
[2023-02-04] MEDS: CYANOCOBALAMIN 1,000 MCG TABLET 1000 MCG PO (08:48)
[2023-02-04] MEDS: FOLIC ACID 1 MG TABLET PO (08:48)
[2023-02-04] MEDS: THIAMINE HCL 100 MG TABLET PO (08:48)
[2023-02-04] MEDS: RIVAROXABAN 20 MG TABLET PO (08:48)
[2023-02-04] MEDS: EMPAGLIFLOZIN 10 MG TABLET PO (08:48)
[2023-02-04] MEDS: METOPROLOL TARTRATE 50 MG TAB PO (08:48)
[2023-02-04] MEDS: ROSUVASTATIN 10 MG TABLET 20 MG PO (08:48)
[2023-02-04] MEDS: DOXYCYCLINE HYCLATE 100 MG TABLET PO (08:48)
[2023-02-04] MEDS: SERTRALINE HCL 50 MG TABLET 100 MG PO (08:48)
[2023-02-04] MEDS: GABAPENTIN 300 MG CAPSULE PO ×3 (08:49→18:58)
[2023-02-04] MEDS: FUROSEMIDE INJ 40 MG/4 ML VIAL IV PUSH (08:49)
[2023-02-04 11:56] LABS: Glucose Point of Care 117 mg/dl (65-105)
--- NOTE | 2023-02-04 16:01 | PCOTNOTE ---
Attempted to see pt for OT however her lunch had just arrived and pt requested to eat first. Will continue to follow.
[2023-02-04 16:49] LABS: Glucose Point of Care 123 mg/dl (65-105)
--- NOTE | 2023-02-04 17:27 | PM.IMPN ---
Progress Note: A&P Assessment and Plan (1) Altered mental status: Code(s): R41.82 - Altered mental status, unspecified Status: Acute Assessment and Plan: Patient brought in for AMS. She was here on 01/28 in the ED but eloped after being seen by provider. CT head showing no acute findings. CTA head/neck showing motion artifact but overall no large vessel occlusion but noted to have COURTNEY PNA. B12, folate and TSH noted; B12 low end so replaced. Low B12 could explain the low plt count. Brain MRI showing no acute findings. BCx NGTD. PCO2 was 70 with low pH. Suspect her confusion related to hypercarbia. Symptoms were better with improvement in her pCO2 but now with agitation and confusion felt related to alcohol withdrawal. Seroquel given at night. Librium was scheduled but too somnolent at times so this was changed to prn. Mental status much better. (2) Acute on chronic respiratory failure with hypoxia and hypercapnia: Code(s): J96.21 - Acute and chronic respiratory failure with hypoxia; J96.22 - Acute and chronic respiratory failure with hypercapnia Status: Acute Assessment and Plan: As above. BiPAP started and settings adjusted. pH improved and CO2 decreased. ABG 02/02 showing 7.34/66/70 on bipap DDimer positive at 0.6 but on anticoagulation so felt PE unlikely. Continue to wear BiPAP at night and with naps. Continue O2 at 4L to keep Spo2>92% while awake (3) Atrial fibrillation: Qualifiers: Atrial fibrillation type: unspecified chronic Qualified Code(s): I48.20 - Chronic atrial fibrillation, unspecified Code(s): I48.91 - Unspecified atrial fibrillation Status: Acute Assessment and Plan: Patient with known AFib. Rate became uncontrolled due to agitation. 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 We continued Xarelto. Diltiazem stopped. Rate better controlled. l Monitor on tele (4) Pneumonia: Qualifiers: Laterality: bilateral Lung location: upper lobe of lung Pneumonia type: due to unspecified organism Qualified Code(s): J18.9 - Pneumonia, unspecified organism Code(s): J18.9 - Pneumonia, unspecified organism Status: Acute Assessment and Plan: CXR showing diffuse lung disease, edema vs PNA vs atelectasis. CT scan showing COURTNEY PNA. PNA could be contributing to her AMS and respiratory symptoms. Doxycycline added. She is allergic to PCN. Spoke with family. Patient found to have vomitus in her mask on the morning of admission. Consider aspiration so Flagyl added 01/31. CXR 01/31 showing mild pulmonary edema. Started on IV Lasix Continue abx and nebulizer treatments. (5) CHF (congestive heart failure): Qualifiers: Heart failure chronicity: acute on chronic Heart failure type: unspecified Qualified Code(s): I50.9 - Heart failure, unspecified Code(s): I50.9 - Heart failure, unspecified Status: Acute Assessment and Plan: Patient with chronic diastolic CHF. BNP 8260 but lower then in the past. Echo here showing EF 50-55% with biatrial enlargement and indeterminate diastolic dysfunction. Still had crackles and mild pedal edema so was treated with IV Lasix. Fluid overload may be related to intermittent tachycardia No pedal edema and BP soft so lasix stopped today Continue Crestor, Entresto, Toprol and Empagliflozin. Not on diuretics at home. (6) Alcohol dependence: Code(s): F10.20 - Alcohol dependence, uncomplicated Status: Acute Assessment and Plan: Possible withdrawal symptoms now. CIWA better and not above 6 Continue to monitor CIWA. benzodiazepines available as needed for elevated CIWA but not needed Continue thiamine and folate. Patient has been educated about the benefits of abstaining from alcohol. (7) COPD with emphysema: Qualifiers: Emphysema type: unspecified Qualified Code(s): J43.9 - Emphysema
[2023-02-04 20:58] LABS: Glucose Point of Care 150 mg/dl (65-105)
--- NOTE | 2023-02-04 21:15 | PC.NURSE ---
Patient appears to be sleeping while on bipap. Patient difficult to arouse to name. Patient arouses to touch. Able to say name and then falls back asleep. Patient's blood pressure checked and an automatic reading of 87/45 obtained. MICAELA Grimes called and notified of patient being on bipap and difficult to arouse. Ce made aware of patient's blood pressure. ABG ordered.
[2023-02-04 22:15] LABS: Alveolar/Arterial O2 Gradient 81.7 mmHg; Base Excess ABG 9.1 mEq/l (+/-2.0); Carboxyhemoglobin 0.3 % THb (0-2.0); Fractional Inspired Oxygen 30 %; HCO3 ABG 34.6 mEq/l (22.0-26.0); Methemoglobin ABG 0.3 %THb (0-1.5); Oxygen Content ABG 14.9 %vol (16.0-22.0); Oxygen Saturation ABG 94.5 % (95.0-100.0); Oxyhemoglobin 93.5 % THb (90.0-100.0); PCO2 ABG 52.3 mmHg (35.0-45.0); PO2 ABG 70.8 mmHg (80.0-100.0); PO2 FiO2 Ratio Arterial Blood 2.36 %; Reduced Hemoglobin 5.9 %THb (0-5.0); Total Hemoglobin 11.3 g/dL (12.0-18.0); pH ABG 7.439 (7.350-7.450)
[2023-02-04 22:17] LABS: Device NON-INVASIVE VENT; Modified Allen's Test Pass; Site Drawn RIGHT RADIAL
[2023-02-04 22:18] LABS: Non-Invasive Expiratory Pressure 6 CMH2O; Non-Invasive Inspiratory Pressure 16 CMH2O; Non-Invasive Vent Rate 16 /MIN
[2023-02-04] MEDS: SODIUM CHLORIDE 0.9% IV 500 ML IV CONT (22:46)
[2023-02-05] VITALS (32 sets, daily range): BP systolic 88–128; BP diastolic 55–87; PULSE 85–122; RESP 16–24; TEMP 36.3–36.6; O2SAT 92–99
[2023-02-05] MEDS: LEVALBUTEROL NEB 1.25 MG/3 ML INHALATION ×4 (02:33→19:28)
[2023-02-05 03:15] LABS: Legionella pneumophila Ag Ur Not Detected (Not Detected)
[2023-02-05 04:59] LABS: Alveolar/Arterial O2 Gradient 92.2 mmHg; Fractional Inspired Oxygen 30 %; HCO3 ABG 31.7 mEq/l (22.0-26.0); Oxygen Content ABG 14.6 %vol (16.0-22.0); Oxygen Saturation ABG 91.7 % (95.0-100.0); Oxyhemoglobin 90.3 % THb (90.0-100.0); PCO2 ABG 50.9 mmHg (35.0-45.0); PO2 ABG 61.9 mmHg (80.0-100.0); PO2 FiO2 Ratio Arterial Blood 2.06 %; Total Hemoglobin 11.5 g/dL (12.0-18.0); pH ABG 7.412 (7.350-7.450)
[2023-02-05 05:01] LABS: Device NON-INVASIVE VENT; Modified Allen's Test Pass; Non-Invasive Inspiratory Pressure 16 CMH2O; Non-Invasive Vent Rate 16 /MIN; Site Drawn RIGHT RADIAL
[2023-02-05 05:02] LABS: Non-Invasive Expiratory Pressure 6 CMH2O
[2023-02-05] MEDS: THIAMINE HCL 100 MG TABLET PO (08:30)
[2023-02-05] MEDS: CYANOCOBALAMIN 1,000 MCG TABLET 1000 MCG PO (08:30)
[2023-02-05] MEDS: METOPROLOL TARTRATE 50 MG TAB PO ×2 (08:30→20:42)
[2023-02-05] MEDS: SERTRALINE HCL 50 MG TABLET 100 MG PO (08:30)
[2023-02-05] MEDS: RIVAROXABAN 20 MG TABLET PO (08:31)
[2023-02-05] MEDS: EMPAGLIFLOZIN 10 MG TABLET PO (08:31)
[2023-02-05] MEDS: SACUBITRIL/VALSARTAN 24-26 MG TABLET 1 TAB PO ×2 (08:31→20:42)
[2023-02-05] MEDS: GABAPENTIN 300 MG CAPSULE PO ×3 (08:31→17:40)
[2023-02-05] MEDS: DOXYCYCLINE HYCLATE 100 MG TABLET PO ×2 (08:31→20:42)
[2023-02-05] MEDS: FOLIC ACID 1 MG TABLET PO (08:31)
[2023-02-05] MEDS: ROSUVASTATIN 10 MG TABLET 20 MG PO (08:31)
[2023-02-05 08:43] LABS: Glucose Point of Care 103 mg/dl (65-105)
[2023-02-05 12:20] LABS: Glucose Point of Care 130 mg/dl (65-105)
--- NOTE | 2023-02-05 12:57 | PM.IMPN ---
Progress Note: A&P Assessment and Plan (1) Altered mental status: Code(s): R41.82 - Altered mental status, unspecified Status: Acute Assessment and Plan: Patient brought in for AMS. She was here on 01/28 in the ED but eloped after being seen by provider. CT head showing no acute findings. CTA head/neck showing motion artifact but overall no large vessel occlusion but noted to have COURTNEY PNA. B12, folate and TSH noted; B12 low end so replaced. Low B12 could explain the low plt count. Brain MRI showing no acute findings. BCx NGTD. PCO2 was 70 with low pH. Suspect her confusion related to hypercarbia. Symptoms were better with improvement in her pCO2 but then developed agitation and confusion felt related to alcohol withdrawal. Seroquel given at night and withdrawal treated with benzodiazepines. Withdrawal symptoms resolved. Patient alert and oriented. (2) Acute on chronic respiratory failure with hypoxia and hypercapnia: Code(s): J96.21 - Acute and chronic respiratory failure with hypoxia; J96.22 - Acute and chronic respiratory failure with hypercapnia Status: Acute Assessment and Plan: As above. BiPAP started and settings adjusted. pH improved and CO2 decreased. ABG 02/05 showing 7.41/51/62 on bipap DDimer positive at 0.6 but on anticoagulation so felt PE unlikely. Continue to wear BiPAP at night and with naps. Continue O2 at 4L to keep Spo2>92% while awake (3) Atrial fibrillation: Qualifiers: Atrial fibrillation type: unspecified chronic Qualified Code(s): I48.20 - Chronic atrial fibrillation, unspecified Code(s): I48.91 - Unspecified atrial fibrillation Status: Acute Assessment and Plan: Patient with known AFib. Rate became uncontrolled due to agitation. 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 We continued Xarelto. Diltiazem stopped. Rate better controlled. BP soft but was on lasix which has been stopped now. Not orthostatic Monitor on tele. Monitor BP. (4) Pneumonia: Qualifiers: Laterality: bilateral Lung location: upper lobe of lung Pneumonia type: due to unspecified organism Qualified Code(s): J18.9 - Pneumonia, unspecified organism Code(s): J18.9 - Pneumonia, unspecified organism Status: Acute Assessment and Plan: CXR showing diffuse lung disease, edema vs PNA vs atelectasis. CT scan showing COURTNEY PNA. PNA could be contributing to her AMS and respiratory symptoms. Doxycycline added. She is allergic to PCN. Spoke with family. Patient found to have vomitus in her mask on the morning of admission. Consider aspiration so Flagyl added 01/31. CXR 01/31 showing mild pulmonary edema. Started on IV Lasix but now off since BP soft Continue abx and nebulizer treatments. (5) CHF (congestive heart failure): Qualifiers: Heart failure chronicity: acute on chronic Heart failure type: unspecified Qualified Code(s): I50.9 - Heart failure, unspecified Code(s): I50.9 - Heart failure, unspecified Status: Acute Assessment and Plan: Patient with chronic diastolic CHF. BNP 8260 but lower then in the past. Echo here showing EF 50-55% with biatrial enlargement and indeterminate diastolic dysfunction. Still had crackles and mild pedal edema so was treated with IV Lasix. Fluid overload may be related to intermittent tachycardia No pedal edema and BP soft so lasix stopped 02/04 Continue Crestor, Entresto, Toprol and Empagliflozin. Not on diuretics at home. (6) Alcohol dependence: Code(s): F10.20 - Alcohol dependence, uncomplicated Status: Acute Assessment and Plan: Possible withdrawal symptoms earlier this admission. CIWA better and not above 3 Continue to monitor CIWA. benzodiazepines available as needed for elevated CIWA but has not been needed Continue thiamine and folate. Patient has been educated about the benefits of abst
[2023-02-05] MEDS: metroNIDAZOLE 250 MG TABLET 500 MG PO ×2 (13:12→20:43)
[2023-02-05 17:27] LABS: Glucose Point of Care 107 mg/dl (65-105)
[2023-02-05 20:28] LABS: Glucose Point of Care 129 mg/dl (65-105)
[2023-02-05] MEDS: PRAMIPEXOLE 1 MG TABLET PO (20:42)
[2023-02-05] MEDS: QUEtiapine FUMARATE 25 MG TABLET PO (20:43)
[2023-02-06] VITALS (13 sets, daily range): BP systolic 90–137; BP diastolic 55–68; PULSE 70–100; RESP 18–21; TEMP 36.4–36.7; O2SAT 92–100
[2023-02-06] MEDS: LEVALBUTEROL NEB 1.25 MG/3 ML INHALATION ×2 (01:41→07:14)
[2023-02-06 04:51] LABS: Anion Gap 8 mmol/L (8-16); Blood Urea Nitrogen 27 mg/dL (7-17); Calcium 9.3 mg/dL (8.4-10.2); Carbon Dioxide 35 mmol/L (22-30); Chloride 100 mmol/L (98-107); Estimated CRCL calculation 61 ml/min; Estimated Glomerular Filt Rate > 60; Glucose 103 mg/dL (65-110); Potassium 4.3 mmol/L (3.4-5.0); Sodium 143 mmol/L (137-145)
[2023-02-06] MEDS: metroNIDAZOLE 250 MG TABLET 500 MG PO (05:31)
[2023-02-06] MEDS: DOXYCYCLINE HYCLATE 100 MG TABLET PO (08:18)
[2023-02-06] MEDS: SACUBITRIL/VALSARTAN 24-26 MG TABLET 1 TAB PO (08:18)
[2023-02-06] MEDS: SERTRALINE HCL 50 MG TABLET 100 MG PO (08:18)
[2023-02-06] MEDS: METOPROLOL TARTRATE 50 MG TAB PO (08:18)
[2023-02-06] MEDS: THIAMINE HCL 100 MG TABLET PO (08:18)
[2023-02-06] MEDS: CYANOCOBALAMIN 1,000 MCG TABLET 1000 MCG PO (08:18)
[2023-02-06] MEDS: ROSUVASTATIN 10 MG TABLET 20 MG PO (08:18)
[2023-02-06] MEDS: GABAPENTIN 300 MG CAPSULE PO (08:19)
[2023-02-06] MEDS: FOLIC ACID 1 MG TABLET PO (08:19)
[2023-02-06] MEDS: RIVAROXABAN 20 MG TABLET PO (08:19)
[2023-02-06] MEDS: EMPAGLIFLOZIN 10 MG TABLET PO (08:19)
[2023-02-06 08:38] LABS: Glucose Point of Care 101 mg/dl (65-105)
--- NOTE | 2023-02-06 08:42 | PM.DS ---
DS: Admitting Diagnosis Discharge Date 02/06/23 Admitting Diagnosis ams DS: Discharge Diagnosis Discharge Diagnosis (1) Altered mental status: Code(s): R41.82 - Altered mental status, unspecified Status: Acute Assessment and Plan: Patient brought in for AMS. She was here on 01/28 in the ED but eloped after being seen by provider. CT head showing no acute findings. CTA head/neck showing motion artifact but overall no large vessel occlusion but noted to have COURTNEY PNA. B12, folate and TSH noted; B12 low end so replaced. Low B12 could explain the low plt count. Brain MRI showing no acute findings. BCx NGTD. PCO2 was 70 with low pH. Suspect her confusion related to hypercarbia. Symptoms were better with improvement in her pCO2 but then developed agitation and confusion felt related to alcohol withdrawal. Seroquel given at night and withdrawal treated with benzodiazepines. Withdrawal symptoms resolved. Patient alert and oriented. (2) Acute on chronic respiratory failure with hypoxia and hypercapnia: Code(s): J96.21 - Acute and chronic respiratory failure with hypoxia; J96.22 - Acute and chronic respiratory failure with hypercapnia Status: Acute Assessment and Plan: As above. BiPAP started and settings adjusted. pH improved and CO2 decreased. ABG 02/05 showing 7.41/51/62 on bipap DDimer positive at 0.6 but on anticoagulation so felt PE unlikely. Continue to wear BiPAP at night and with naps. Continue O2 at 4L to keep Spo2>92% while awake (3) Atrial fibrillation: Qualifiers: Atrial fibrillation type: unspecified chronic Qualified Code(s): I48.20 - Chronic atrial fibrillation, unspecified Code(s): I48.91 - Unspecified atrial fibrillation Status: Acute Assessment and Plan: Patient with known AFib. Rate became uncontrolled due to agitation. 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 We continued Xarelto. Diltiazem stopped. Rate better controlled. BP soft but was on lasix which has been stopped now. Not orthostatic Monitor on tele. Monitor BP. (4) Pneumonia: Qualifiers: Laterality: bilateral Lung location: upper lobe of lung Pneumonia type: due to unspecified organism Qualified Code(s): J18.9 - Pneumonia, unspecified organism Code(s): J18.9 - Pneumonia, unspecified organism Status: Acute Assessment and Plan: CXR showing diffuse lung disease, edema vs PNA vs atelectasis. CT scan showing COURTNEY PNA. PNA could be contributing to her AMS and respiratory symptoms. Doxycycline added. She is allergic to PCN. Spoke with family. Patient found to have vomitus in her mask on the morning of admission. Consider aspiration so Flagyl added 01/31. CXR 01/31 showing mild pulmonary edema. Started on IV Lasix but now off since BP soft Continue abx and nebulizer treatments. (5) CHF (congestive heart failure): Qualifiers: Heart failure chronicity: acute on chronic Heart failure type: unspecified Qualified Code(s): I50.9 - Heart failure, unspecified Code(s): I50.9 - Heart failure, unspecified Status: Acute Assessment and Plan: Patient with chronic diastolic CHF. BNP 8260 but lower then in the past. Echo here showing EF 50-55% with biatrial enlargement and indeterminate diastolic dysfunction. Still had crackles and mild pedal edema so was treated with IV Lasix. Fluid overload may be related to intermittent tachycardia No pedal edema and BP soft so lasix stopped 02/04 Continue Crestor, Entresto, Toprol and Empagliflozin. Not on diuretics at home. (6) Alcohol dependence: Code(s): F10.20 - Alcohol dependence, uncomplicated Status: Acute Assessment and Plan: Possible withdrawal symptoms earlier this admission. CIWA better and not above 3 Continue to monitor CIWA. benzodiazepines available as needed for elevated CIWA but has not been needed C
[2023-02-06 11:16] LABS: SARS-CoV-2 RNA PCR Negative (Negative)
== END 2023-02-06 12:03 | DRG 193 ==
LOC: ANHED 15:37 → ANHIMU 21:31
PROVIDERS: Emergency Medicine; Internal Medicine; Physician Assistant; Student in an Organized Health Care Education/Training Program; Admitting Provider Student in an Organized Health Care Education/Training Program; Emergency Provider Student in an Organized Health Care Education/Training Program; PCP Family Medicine; Visit Provider Student in an Organized Health Care Education/Training Program
DX: J18.9 Pneumonia, unspecified organism (principal); I50.33 Acute on chronic diastolic (congestive) heart failure; J96.21 Acute and chronic respiratory failure with hypoxia; N17.9 Acute kidney failure, unspecified; I13.0 Hypertensive heart and chronic kidney disease with heart failure and stage 1 through stage 4 chronic kidney disease, or unspecified chronic kidney disease; I42.0 Dilated cardiomyopathy; J44.0 Chronic obstructive pulmonary disease with (acute) lower respiratory infection; K51.90 Ulcerative colitis, unspecified, without complications; F10.231 Alcohol dependence with withdrawal delirium; Z99.81 Dependence on supplemental oxygen; Z87.891 Personal history of nicotine dependence; G47.33 Obstructive sleep apnea (adult) (pediatric); I48.91 Unspecified atrial fibrillation; I27.20 Pulmonary hypertension, unspecified; G25.81 Restless legs syndrome; N18.9 Chronic kidney disease, unspecified; F32.A Depression, unspecified; G62.9 Polyneuropathy, unspecified; Z96.611 Presence of right artificial shoulder joint; E53.8 Deficiency of other specified B group vitamins; J44.9 Chronic obstructive pulmonary disease, unspecified; Z79.01 Long term (current) use of anticoagulants; D69.6 Thrombocytopenia, unspecified
CPT/HCPCS: 36415; 36569; 36600; 70450; 70496; 70498; 70553; 71045; 72131; 72192; 80048; 80053; 80069; 80307; 81003; 82375; 82607; 82746; 82805; 82948; 83050; 83605; 83735; 83880; 84443; 84484; 85025; 85055; 85380; 85610; 85730; 87040; 87449; 87635; 87637; 87899; 93005; 93306; 94002; 94003; 94640; 97110; 97161; 97165; 97530; 97535; 99285; A9270; A9577; C1751; J0696; J1836; J1940; J2060; J3411; J3420; J7040; J7120; Q9967

== ENCOUNTER 2023-03-28 12:58 | Outpatient (CLI) | payer MEDICARE, SELFPAY ==
[2023-03-28 15:09] LABS: Toxigenic C. Diff NEGATIVE (NEGATIVE)
[2023-04-04 18:27] LABS: Calprotectin, Stool 93 mcg/g
== END 2023-03-28 12:59 | disposition home or self-care (01) ==
PROVIDERS: PCP Family Medicine; Visit Provider Family Medicine
DX: R19.7 Diarrhea, unspecified (principal)
CPT/HCPCS: 83993; 87493

== ENCOUNTER 2023-04-26 11:00 | Emergency (ER) | payer MEDICARE, SELFPAY ==
--- NOTE | ~2023-04-26 | CT_ITS ---
EXAMINATION: CTA chest PE protocol DATE: 04/26/2023 17:48 INDICATION: Right-sided chest pain worsening with inspiration. Atrial fibrillation. TECHNIQUE: Computed tomography (CT) pulmonary angiogram of the chest was performed with 100 mL Omnipa que-350 intravenous contrast. Additional 3D reconstructions utilizing coronal maximum intensity proje ction (MIP) were performed. The dose-length product was 754.33 mGy-cm. COMPARISON: None FINDINGS: There is good contrast opacification of the pulmonary arteries however there is also severe respirato ry motion in the mid to lower lungs which decreases sensitivity in the segmental pulmonary arteries a nd renders assessment in many of the subsegmental pulmonary arteries at the lung bases essentially no ndiagnostic. No pulmonary embolism in the bilateral upper lobes or in the lobar arteries at the lingu la, right middle and bilateral lower lobes. There is mild smooth septal line thickening in the bilate ral upper lobes consistent with mild pulmonary edema. Mild atelectasis at the left lung base with the medial aspect of the lingula and right middle lobe. No pneumonia or pleural effusion. There is promi nent AP narrowing of the trachea and the left and right mainstem bronchi consistent with tracheobronc homalacia. Cardiomegaly. No pericardial effusion. Thoracic aorta is normal in caliber with no dissect ion. Enlargement of the central pulmonary arteries consistent with pulmonary arterial hypertension. N o pathologically enlarged thoracic lymphadenopathy. Partially visualized cyst at the upper pole the r ight kidney measuring at least 1.2 cm. Severe left glenohumeral osteoarthritis. Comment streak artifa ct associated with a right reverse total shoulder arthroplasty which is only partially visualized. Ch ronic appearing compression fractures at T5, T7, T11-L2. IMPRESSION: 1. No pulmonary embolism in the bilateral upper lobes or in the larger central pulmonary arteries in the mid to lower lungs where assessment is significantly limited by large amount of motion artifact. 2. Cardiomegaly with mild pulmonary edema. 3. Enlargement of the central pulmonary arteries consistent with pulmonary arterial hypertension. 4. Tracheobronchomalacia. Reviewed, dictated and finalized at location A. A MANAGER IMPRESSION: 1. No pulmonary embolism in the bilateral upper lobes or in the larger central pulmonary arteries in the mid to lower lungs where assessment is significantly limited by large amount of motion artifact. 2. Cardiomegaly with mild pulmonary edema. 3. Enlargement of the central pulmonary arteries consistent with pulmonary radha rial hypertension. 4. Tracheobronchomalacia.
--- NOTE | ~2023-04-26 | XR_ITS ---
XR chest 1V DATE: 04/26/2023 12:07 INDICATION: Chest pain, pain with inspiration for 2 days. History of COPD. TECHNIQUE: AP chest COMPARISON: 02/10/2023 portable AP chest FINDINGS: Cardiomegaly. There is aortic unfolding. There is mild infiltrate and/or atelectasis in the lower lung zones. No pulmonary consolidation, pleu ral effusion or pneumothorax is evident. Pulmonary vascularity appears within normal range. Reverse [id number] right glenohumeral joint replacement. Severe osteoarthritic change at the lef t glenohumeral joint. IMPRESSION: Cardiomegaly Mild infiltrate or atelectasis in the lower lung zones Reviewed, dictated and finalized at location B. AND CENTER OFFICER
--- NOTE | 2023-04-26 11:02 | ECG_ITS ---
Measurements Intervals [place] Rate: 89 P: NE: 0 QRS: -74 QRSD: 81 T: 110 QT: 342 QTc: 418 Interpretive Statements ATRIAL FIBRILLATION LOW QRS VOLTAGE IN PRECORDIAL LEADS [QRS DEFLECTION < 1.0 mV IN CHEST LEADS] LEFT ANTERIOR FASCICULAR BLOCK [QRS AXIS <= -45, QR IN I, RS IN II] POSSIBLE PRIOR ANTEROSEPTAL INFARCTION ABNORMAL ECG COMPARED TO ECG 01/29/2023 15:18:10 NO DIFFERENCE Electronically Signed On 04-26-2023 13:57:24 RIDING DOUBLE by Juan David Khan M.D.
[2023-04-26 11:27] LABS: Basophils Percent Auto 0.2 % (0.2-1.2); Eosinophils Absolute Auto 0.2 K/mm3 (0-0.3); Eosinophils Percent Auto 4.3 % (0-4.4); Hematocrit 37.2 % (37.0-47.0); Immature Granulocyte Absolute 0.01 K/mm3 (0.00-0.031); Immature Granulocyte Percent A 0.2 % (0-0.5); Lymphocytes Absolute Auto 0.95 K/mm3 (0.9-3.2); Lymphocytes Percent Auto 18.7 % (18.3-44.2); Mean Corpuscular HGB Conc 29.6 g/dl (32-36); Mean Corpuscular Volume 98.2 fl (80-100); Mean Platelet Volume 11.2 fl (7.4-10.4); Monocytes Absolute Auto 0.3 K/mm3 (0.1-0.6); Monocytes Percent Auto 6.5 % (2.6-8.5); Neutrophils Absolute Auto 3.6 K/mm3 (1.3-6.7); Neutrophils Percent Auto 70.1 % (45.5-73.1); Platelet Count Result 131 k/mm3 (150-375); Red Blood Count 3.79 M/mm3 (4.2-5.4); Red Cell Distribution Width 13.7 % (11.5-14.5); White Blood Count 5.1 K/mm3 (4.5-10.0)
[2023-04-26 11:36] LABS: Anisocytosis 1+ (NORMAL); Hypochromasia 1+ (NORMAL); Ovalocytes 1+ (NORMAL); Platelet Estimate Decreased (Adequate); Schistocytes None Seen (NORMAL)
[2023-04-26 11:38] LABS: INR 1.1; Prothrombin Time 15.1 Seconds (11.1-14.7)
[2023-04-26 11:39] LABS: Partial Thromboplastin Time 37.6 SECONDS (22.3-36.8)
[2023-04-26 11:43] LABS: Alanine Aminotransferase 14 U/L (6-35); Alkaline Phosphatase 48 U/L (38-126); Anion Gap 2 mmol/L (8-16); Aspartate Amino Transferase 24 U/L (14-36); Bilirubin,Total 1.3 mg/dL (0.2-1.3); Blood Urea Nitrogen 22 mg/dL (7-17); Calcium 9.2 mg/dL (8.4-10.2); Carbon Dioxide 35 mmol/L (22-30); Chloride 104 mmol/L (98-107); Estimated Glomerular Filt Rate > 60; Glucose 114 mg/dL (65-110); Lipase 65 U/L (23-300); Potassium 4.9 mmol/L (3.4-5.0); Sodium 141 mmol/L (137-145)
[2023-04-26 11:55] LABS: Troponin I < 0.012 ng/mL (0.000-0.034)
[2023-04-26 12:09] VITALS: BP 122/81; PULSE 85; RESP 20; TEMP 36.9; O2SAT 97
--- NOTE | 2023-04-26 15:18 | ECG_ITS ---
Measurements Intervals [place] Rate: 98 P: ME: 0 QRS: -47 QRSD: 94 T: 17 QT: 335 QTc: 429 Interpretive Statements ATRIAL FIBRILLATION LEFT ANTERIOR SUPERIOR HEMIBLOCK LOW QRS VOLTAGE IN PRECORDIAL LEADS [QRS DEFLECTION < 1.0 mV IN CHEST LEADS] POSSIBLE ANTERIOR MYOCARDIAL INFARCTION , OLD ABNORMAL ECG COMPARED TO ECG 04/26/2023 11:12:39 NO DIFFERENCE Electronically Signed On 04-29-2023 16:38:00 REFORESTATION WORKER by Juan David Khan M.D.
[2023-04-26 15:42] LABS: Troponin I < 0.012 ng/mL (0.000-0.034)
--- NOTE | 2023-04-26 16:41 | ED.CHESTPAIN ---
HPI - Chest Pain General Chief Complaint: Chest Pain Stated Complaint: right sided CP Time Seen by Provider: 04/26/23 16:38 History of Present Illness HPI narrative: Patient is a 77 year old female with history of COPD, a.fib anticoagulated xeralto here with chest pain. She notes that chest pain has been present for about 2 weeks. It is right sided, located in her lung area and worse with deep breaths, coughing, sneezing and moving. She notes it significantly worsened over the last 2-3 days prompting her visit today. She has had a subjective fever but not checked her temperature at home. She has had associated shortness of breath. She does have a diagnosis of COPD, has not been doing her breathing treatments daily and is inconsistent with her CPAP usage. She denies any prior history of CAD. 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 No other known sick contacts. Related Data Home Medications Medication Instructions Recorded Confirmed empagliflozin 10 mg tablet 10 mg PO DAILY 01/30/23 03/14/23 (Jardiance) rivaroxaban 20 mg tablet (Xarelto) 20 mg PO DAILY 01/30/23 03/14/23 Allergies Allergy/AdvReac Type Severity Reaction Status Date / Time Penicillins Allergy Mild Rash Verified 03/14/23 15:55 thiopental [From Pentothal] AdvReac Intermediate Nausea and Verified 03/14/23 15:55 Vomiting Review of Systems Review of Systems: All systems reviewed & are unremarkable except as noted in HPI and below PMFSH Past Medical History Medical History Acute and chronic respiratory failure Acute exacerbation of CHF (congestive heart failure) Acute respiratory failure Alcohol abuse Atrial fibrillation Azotemia Cervical disc disorder with radiculopathy of cervicothoracic region CHF exacerbation Chronic depression Chronic respiratory failure with hypoxia COVID-19 Elevated troponin level Hyperglycemia Hypertensive urgency Lung nodules 09/2018: stable R apex nodule/ multiple other nodules/emphysema LDCT: stable Mixed hyperlipidemia Murmur, cardiac Nicotine dependence, unspecified, 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 Surgical History Surgical History History of appendectomy History of carpal tunnel surgery of left wrist (03/02/20) History of hysterectomy History of total replacement of right shoulder joint History of total right hip arthroplasty Family History Family History Mother Family history of osteoporosis Family history of mental disorder Family history of anemia Family history of arthritis Family history of malignant neoplasm Family history of Alzheimer's disease Patient's mother is Sibling Family history of malignant neoplasm of uterus Family history of malignant neoplasm of cervix Patient's sister is Daughter Crohn disease Other Cerebrovascular accident Family history of cardiovascular disease Family history of glaucoma Social History Social History (Updated 03/14/23 @ 15:57 by Mary Gonzalez MA) Social History: Surrogate decision maker: Shantal Pond, daughter. Code status: Full code. Smoking packs per day: 1 Smoking cigarettes per day: 20.0 Years smoked: 50 Smoking pack-years: 50.00 Smoking status: Former smoker Tobacco type: cigarettes Smoking end date: 09/23/11 Alcohol intake: former Substance use: never Substance use type: does not use Lack of Transportation: No Lack of Food: Never True Current Housing: I H
[2023-04-26 17:27] VITALS: PULSE 94; RESP 18
[2023-04-26] MEDS: IPRATROPIUM 0.5 MG/ALBUTEROL SULFATE 2.5 MG AMPUL.NEB 3 ML INHALATION (17:27)
[2023-04-26 17:32] VITALS: PULSE 93; RESP 19
[2023-04-26 17:33] VITALS: O2SAT 97
[2023-04-26 17:58] LABS: Influenza A QL RT-PCR Negative (Negative); Influenza B QL RT-PCR Negative (Negative); RSV RNA, RT-PCR Negative (Negative); SARS-CoV-2 RNA PCR Negative (Negative)
[2023-04-26 18:03] VITALS: BP 128/105; PULSE 101; RESP 19; O2SAT 98
[2023-04-26] MEDS: ASPIRIN 81 MG CHEWABLE TABLET 324 MG PO (18:03)
[2023-04-26] MEDS: DOXYCYCLINE HYCLATE 100 MG TABLET PO (19:35)
[2023-04-26] MEDS: predniSONE 20 MG TABLET 40 MG PO (19:35)
[2023-04-26 19:36] VITALS: PULSE 66; RESP 19; TEMP 36.9; O2SAT 96
== END 2023-04-26 19:57 | disposition home or self-care (01) ==
PROVIDERS: Emergency Medicine; Emergency Provider Student in an Organized Health Care Education/Training Program; PCP Family Medicine
DX: J44.1 Chronic obstructive pulmonary disease with (acute) exacerbation (principal); R07.89 Other chest pain; Z20.822 Contact with and (suspected) exposure to COVID-19; I48.91 Unspecified atrial fibrillation; I50.9 Heart failure, unspecified; I11.0 Hypertensive heart disease with heart failure; I25.2 Old myocardial infarction; I27.20 Pulmonary hypertension, unspecified; J96.11 Chronic respiratory failure with hypoxia; E78.2 Mixed hyperlipidemia; G62.9 Polyneuropathy, unspecified; G25.81 Restless legs syndrome; K51.90 Ulcerative colitis, unspecified, without complications; Z96.611 Presence of right artificial shoulder joint; Z96.641 Presence of right artificial hip joint; Z86.16 Personal history of COVID-19; Z87.891 Personal history of nicotine dependence; Z90.710 Acquired absence of both cervix and uterus; Z79.84 Long term (current) use of oral hypoglycemic drugs; Z79.01 Long term (current) use of anticoagulants; I44.4 Left anterior fascicular block
CPT/HCPCS: 36415; 71045; 71275; 80053; 83690; 84484; 85025; 85610; 85730; 87637; 93005; 94640; 99284; A9270; J7512; Q9967

== ENCOUNTER 2023-07-18 12:48 | Outpatient (CLI) | payer MEDICARE, SELFPAY ==
[2023-07-18 19:30] LABS: Basophils Percent Auto 0.6 % (0.2-1.2); Eosinophils Absolute Auto 0.4 K/mm3 (0-0.3); Eosinophils Percent Auto 6.5 % (0-4.4); Hematocrit 36.5 % (37.0-47.0); Hemoglobin 11.3 g/dL (12.0-15.0); Immature Granulocyte Absolute 0.01 K/mm3 (0.00-0.031); Immature Granulocyte Percent A 0.2 % (0-0.5); Lymphocytes Absolute Auto 1.22 K/mm3 (0.9-3.2); Lymphocytes Percent Auto 22.6 % (18.3-44.2); Mean Corpuscular Hemoglobin 32.2 pg (26-34); Mean Platelet Volume 12.3 fl (7.4-10.4); Monocytes Absolute Auto 0.4 K/mm3 (0.1-0.6); Monocytes Percent Auto 7.4 % (2.6-8.5); Neutrophils Absolute Auto 3.4 K/mm3 (1.3-6.7); Neutrophils Percent Auto 62.7 % (45.5-73.1); Platelet Count Result 134 k/mm3 (150-375); Red Blood Count 3.51 M/mm3 (4.2-5.4); Red Cell Distribution Width 13.5 % (11.5-14.5); White Blood Count 5.4 K/mm3 (4.5-10.0)
[2023-07-18 21:33] LABS: Alanine Aminotransferase 15 U/L (6-35); Albumin Level 4.3 g/dL (3.5-5.1); Alkaline Phosphatase 51 U/L (38-126); Anion Gap 6 mmol/L (4-12); Aspartate Amino Transferase 37 U/L (14-36); Bilirubin,Total 1.9 mg/dL (0.2-1.3); Blood Urea Nitrogen 29 mg/dL (7-17); Calcium 9.8 mg/dL (8.4-10.2); Carbon Dioxide 35 mmol/L (22-30); Chloride 103 mmol/L (98-107); Cholesterol 153 mg/dL (0-200); Estimated Glomerular Filt Rate > 60; Glucose 77 mg/dL (65-110); HDL Direct 46 mg/dL; Potassium 4.6 mmol/L (3.4-5.0); Sodium 144 mmol/L (137-145); Triglycerides 70 mg/dL (<150)
[2023-07-18 21:43] LABS: LDL Cholesterol Direct 83 mg/dL
[2023-07-18 22:24] LABS: Hemoglobin A1C 5.1 % (<5.7)
== END 2023-07-18 12:49 | disposition home or self-care (01) ==
LOC: ANHGOSHLAB 12:50
PROVIDERS: PCP Family Medicine; Visit Provider Family Medicine
DX: R73.03 Prediabetes (principal); I42.0 Dilated cardiomyopathy; F10.20 Alcohol dependence, uncomplicated
CPT/HCPCS: 36415; 80053; 80061; 82607; 83036; 85025

== ENCOUNTER 2023-08-10 11:40 | Emergency (ER) | payer MEDICARE, SELFPAY ==
--- NOTE | ~2023-08-10 | CT_ITS ---
EXAMINATION: CT brain wo con DATE: 08/10/2023 12:34 INDICATION: Head injury. TECHNIQUE: Computed tomography (CT) of the head was performed without intravenous contrast. The mA wa s adjusted according to patient size. Iterative reconstruction technique was employed. The dose-lengt h product was 605.33 mGy-cm. COMPARISON: Head CT 01/29/2023 FINDINGS: There is no intracranial hemorrhage, acute infarction, or abnormal intracranial mass lesion . There are scattered areas of low attenuation in the cerebral white matter, which is within normal l imits for the patient's age. The ventricles are normal in size. The orbits are normal. There is mild mucosal thickening in the paranasal sinuses. There is a frontal scalp laceration. There is right andrade k soft tissue swelling. The mastoid air cells are normal. IMPRESSION: 1. Normal aging brain. Reviewed, dictated and finalized at location A. IMPRESSION: 1. Normal aging brain.
[2023-08-10 11:45] VITALS: BP 100/72; PULSE 82; RESP 18; O2SAT 92
[2023-08-10] MEDS: TETANUS,DIPHTHERIA,AC PERTUSSIS ADULT (0.5 ML) BOOSTRIX IM (12:11)
[2023-08-10 12:20] VITALS: O2SAT 95
--- NOTE | 2023-08-10 12:20 | PC.NURSE ---
Pt right eye, right orbit, right cheek bruised with laceration to right eyebrow. Old bruising noted to left face. Pt states 2 weeks ago hair clip caused a cut resulting in large bruise to left face. Pt reports frequent falls mostly hitting her head, states she falls 2-[address] Nieves spoke with pt of living arrangement at her residence. Pt states she lives at home, house is single level she gets around without difficulty. Dr. Nieves discussed assisted living due to frequent falls. Pt declines assisted living. Note pt Sa02 dropped to 88-90%. Pt states she wears oxygen at all times, only wears it at night with her CPAP. Dr. Nieves informed
--- NOTE | 2023-08-10 12:50 | ED.WOUNDLAC ---
HPI - Wound/Laceration General Chief Complaint: Wound/Laceration Stated Complaint: fall/ lac Time Seen by Provider: 08/10/23 11:41 History of Present Illness HPI narrative: This is a 77-year-old female, with history of AFib on Xarelto, presents to the emergency department after a ground level fall. The patient states she was lying in bed, when she rolls over, falling out of bed and striking her head on a dresser. She denies loss of consciousness. She complains of minimal facial pain and a laceration over the right eyebrow. She denies weakness, numbness, loss of vision, chest pain, shortness of breath and has no other complaints at this time. Related Data Allergies Allergy/AdvReac Type Severity Reaction Status Date / Time Penicillins Allergy Mild Rash Verified 07/18/23 11:36 thiopental [From Pentothal] AdvReac Intermediate Nausea and Verified 07/18/23 11:36 Vomiting Review of Systems Review of Systems: All systems reviewed & are unremarkable except as noted in HPI and below PMFSH Past Medical History Medical History Acute and chronic respiratory failure Acute exacerbation of CHF (congestive heart failure) Acute respiratory failure Alcohol abuse Atrial fibrillation Azotemia Cervical disc disorder with radiculopathy of cervicothoracic region CHF exacerbation Chronic depression Chronic respiratory failure with hypoxia COVID-19 Elevated troponin level Hyperglycemia Hypertensive urgency Lung nodules 09/2018: stable R apex nodule/ multiple other nodules/emphysema LDCT: stable Mixed hyperlipidemia Murmur, cardiac Nicotine dependence, unspecified, 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 Surgical History Surgical History History of appendectomy History of carpal tunnel surgery of left wrist (03/02/20) History of hysterectomy History of total replacement of right shoulder joint History of total right hip arthroplasty Family History Family History Mother Family history of osteoporosis Family history of mental disorder Family history of anemia Family history of arthritis Family history of malignant neoplasm Family history of Alzheimer's disease Patient's mother is Sibling Family history of malignant neoplasm of uterus Family history of malignant neoplasm of cervix Patient's sister is Daughter Crohn disease Other Cerebrovascular accident Family history of cardiovascular disease Family history of glaucoma Social History Social History Social History: Surrogate decision maker: Shantal Pond, daughter. Code status: Full code. Smoking packs per day: 1 Smoking cigarettes per day: 20.0 Years smoked: 50 Smoking pack-years: 50.00 Smoking status: Former smoker Tobacco type: cigarettes Smoking end date: 09/23/11 Alcohol intake: former Substance use: never Substance use type: does not use Lack of Transportation: No Lack of Food: Never True Current Housing: I Have Housing Concerned About Future Housing: No Difficulty Paying Gas/Electric Bills: No Difficulty Paying for Meds: No Currently Unemployed: No Education: High School Diploma/GED Difficulty w/ Childcare or Family Care: No Living arrangements: alone Additional living arrangements comments: The patient lives in her own home in [place]. Additional occupation/education comments: Retired. Spiritual care concerns: No Exam Narrative: GENERAL: Well-developed, well-nourishe
[2023-08-10] MEDS: ACETAMINOPHEN 500 MG TABLET 1000 MG PO (12:54)
[2023-08-10 13:00] VITALS: BP 100/72; PULSE 103; RESP 18; TEMP 36.6; O2SAT 96
== END 2023-08-10 13:20 | disposition home or self-care (01) ==
PROVIDERS: Emergency Provider Preventive Medicine Aerospace Medicine; PCP Family Medicine
DX: S06.0X0A Concussion without loss of consciousness, initial encounter (principal); S01.111A Laceration without foreign body of right eyelid and periocular area, initial encounter; Z87.891 Personal history of nicotine dependence; I11.0 Hypertensive heart disease with heart failure; I50.9 Heart failure, unspecified; I48.91 Unspecified atrial fibrillation; I27.20 Pulmonary hypertension, unspecified; G25.81 Restless legs syndrome; W06.XXXA Fall from bed, initial encounter; Z23 Encounter for immunization
CPT/HCPCS: 70450; 90471; 90715; 99284; A9270

== ENCOUNTER 2023-08-12 14:52 | Inpatient (IN) | payer MEDICARE, SELFPAY ==
[2023-08-12] VITALS (39 sets, daily range): BP systolic 79–103; BP diastolic 46–73; PULSE 58–111; RESP 15–233; TEMP 36.2–36.7; O2SAT 81–100
--- NOTE | ~2023-08-12 | XR_ITS ---
EXAMINATION: XR_RIBSBI_CR DATE: 08/12/2023 16:24 INDICATION: Fall. TECHNIQUE: 2 views of the right ribs on 3 radiographs and 2 views of the left ribs on 3 radiographs w ere obtained. COMPARISON: Chest single view 04/26/2023 FINDINGS: There is no pneumonia, pleural effusion, or pneumothorax. Cardiomegaly is noted. There is a total right shoulder arthroplasty. 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 There a re old healed fractures of left sixth and 10th ribs. There are old healed fractures of right seventh and eighth ribs. IMPRESSION: 1. No acute rib fracture. 2. Cardiomegaly. Reviewed, dictated and finalized at location A.
--- NOTE | ~2023-08-12 | XR_ITS ---
EXAMINATION: XR chest 1V portable DATE: 08/16/2023 12:06 INDICATION: Cough. TECHNIQUE: A single frontal view of the chest was obtained. COMPARISON: Chest single view 04/26/2023, chest CT 08/13/2023 FINDINGS: There is mild atelectasis in the lower lung zones. No pleural effusion or pneumothorax. Car diomegaly is noted. There is a total right shoulder arthroplasty. IMPRESSION: 1. Mild atelectasis in the lower lung zones. 2. Cardiomegaly. Reviewed, dictated and finalized at location A.
--- NOTE | ~2023-08-12 | CT_ITS ---
EXAMINATION:CT diagnostic chest wo con DATE: 08/13/2023 12:21 INDICATION: Mediastinal hematoma. TECHNIQUE: Computed tomography (CT) of the chest was performed without intravenous contrast. Automate d exposure control and iterative reconstruction technique were employed. The dose-length product (DLP ) was 375.90 mGy-cm. COMPARISON: Chest CT 04/26/2023, cervical spine CT 08/12/2023 FINDINGS: The lungs demonstrate mild atelectasis. There is smooth septal thickening in the lungs, con sistent with mild pulmonary edema. There are trace pleural effusions. Cardiomegaly is noted. There ar e coronary artery calcifications. No pericardial effusion. There is fat stranding in the left supracl avicular region and superior mediastinum. There is a right shoulder arthroplasty. There is severe cer vical spondylosis and moderate thoracic spondylosis. There is a chronic compression fracture of T5. T here is mild chronic anterior wedging of other vertebral bodies. There are old bilateral rib fracture s. IMPRESSION: 1. Fat stranding in the left supraclavicular region and superior mediastinum, likely hematoma 2. Mild pulmonary edema. Reviewed, dictated and finalized at location A. IMPRESSION: 1. Fat stranding in the left supraclavicular region and superior mediastinum, l ikely hematoma 2. Mild pulmonary edema.
--- NOTE | ~2023-08-12 | CT_ITS ---
EXAMINATION: CT facial & cervical spine wo DATE: 08/12/2023 15:26 INDICATION: Head injury. TECHNIQUE: Computed tomography (CT) of the maxillofacial region and cervical spine was performed with out intravenous contrast. Automated exposure control and iterative reconstruction technique were empl oyed. The dose-length product was 681.00 mGy-cm. COMPARISON: None FINDINGS: MAXILLOFACIAL CT: There is a left frontal scalp hematoma. The orbits are normal. The mastoid air cells are normal. Ther e is mild mucosal thickening in the paranasal sinuses. CERVICAL SPINE CT: There is a hematoma involving the left neck soft tissues and superior mediastinum. There is enlargeme nt of the left sternocleidomastoid muscle, consistent with hematoma. There is kyphosis of cervical sp ine. There is 2 mm anterolisthesis of C3 on C4. There is 13 degrees levoscoliosis of cervical spine. There is mild chronic anterior wedging of C7 and T1 vertebral bodies. There is moderately decreased d isc height at C3-C4 and severely decreased disc height at C4-C5, C5-C6, C6-C7, and C7-T1. The followi ng disc levels are specifically discussed: C2-C3: There is mild bilateral uncovertebral joint osteoarthritis. There is moderate left facet joint osteoarthritis. There is ankylosis of right facet joint with mild hypertrophy. There is no neural fo raminal stenosis. There is no central canal stenosis. C3-C4: There is severe bilateral uncovertebral joint osteoarthritis. There is severe bilateral facet joint osteoarthritis. There is mild bilateral neural foraminal stenosis. There is mild central canal stenosis. C4-C5: There is severe bilateral uncovertebral joint osteoarthritis. There is moderate right and leander re left facet joint osteoarthritis. There is mild bilateral neural foraminal stenosis. There is mild central canal stenosis. C5-C6: There is severe bilateral uncovertebral joint osteoarthritis. There is moderate right and mild left facet joint osteoarthritis. There is mild right and moderate left neural foraminal stenosis. Th ere is mild central canal stenosis. C6-C7: There is severe bilateral uncovertebral joint osteoarthritis. There is mild bilateral facet ruiz int osteoarthritis. There is mild bilateral neural foraminal stenosis. There is mild central canal st enosis. C7-T1: There is severe bilateral uncovertebral joint osteoarthritis. There is moderate right and leander re left facet joint osteoarthritis. There is mild bilateral neural foraminal stenosis. There is no ce ntral canal stenosis. IMPRESSION: 1. No fracture. 2. Severe cervical spondylosis. 3. Hematoma involving the left neck and superior mediastinum. Reviewed, dictated and finalized at location A.
--- NOTE | ~2023-08-12 | CT_ITS ---
EXAMINATION: CT brain wo con DATE: 08/12/2023 15:26 INDICATION: Head injury. TECHNIQUE: Computed tomography (CT) of the head was performed without intravenous contrast. The mA wa s adjusted according to patient size. Iterative reconstruction technique was employed. The dose-lengt h product was 681.00 mGy-cm. COMPARISON: Head CT 08/10/2023 FINDINGS: There are scattered areas of low attenuation in the cerebral white matter, which is within normal limits for the patient's age. There is no intracranial hemorrhage, acute infarction, or abnorm al intracranial mass lesion. The ventricles are normal in size. The orbits are normal. There is a lef t frontal scalp hematoma. There is mild mucosal thickening in the ethmoid sinuses. The mastoid air ce lls are normal. IMPRESSION: 1. Normal aging brain. Reviewed, dictated and finalized at location A. IMPRESSION: 1. Normal aging brain.
--- NOTE | 2023-08-12 15:03 | ED.GENADULT ---
HPI - General Adult General Chief complaint: Fall <Indigo Knox July HUC - Last Filed: 08/12/23 15:06> Stated complaint: fall <Indigo Knox July HUC - Last Filed: 08/12/23 15:06> Time Seen by Provider: 08/12/23 15:03 <Indigo Knox July HUC - Last Filed: 08/12/23 15:06> Focused HPI: Ping Waller is a 77 y/o female who presents after falling out of bed stricking her left side of face on the table / Complains of facial pain/ neck pain no LOC + bruising and laceration that is covered by bandage that she placed - she states she is on eliquis GENERAL: in no acute distress. HEAD: Normocephalic, + ecchymosis / swelling to face Right eye was from two days ago left side of face is from today's fall CHEST: ?No respiratory distress. wears 4L at baseline HEART: Regular rate and rhythm.? NEURO: ?Alert and oriented x3. Patient screened in triage and initial orders placed.? ?Additional care and disposition to be based upon?diagnostic testing and treatment. <Indigo Knox July, HUC - Last Filed: 08/12/23 15:06> Source: patient <Indigo Lisette July, HUC - Last Filed: 08/12/23 15:06> History of Present Illness HPI narrative: 77-year-old with multiple medical problems and she will bring her home multiple fall. Patient states that she fell 2 days ago at home and again does have unknown. Patient states that she leaned forward and lost balance and fell against a table. She denies any loss of consciousness. No history of any chest pain or shortness of breath. She also complains of neck pain. <Danny Huertas MD - Last Filed: 08/12/23 20:01> Onset (ago): day(s) (1) <Danny Huertas MD - Last Filed: 08/12/23 20:01> Location: head and face <Danny Huertas MD - Last Filed: 08/12/23 20:01> Radiation: neck <Danny Huertas MD - Last Filed: 08/12/23 20:01> Severity: moderate <Danny Huertas MD - Last Filed: 08/12/23 20:01> Quality: aching <Danny Huertas MD - Last Filed: 08/12/23 20:01> Pain Consistency: constant <Danny Huertas MD - Last Filed: 08/12/23 20:01> Relieving factors: none <Danny Huertas MD - Last Filed: 08/12/23 20:01> Exacerbating factors: none <Danny Huertas MD - Last Filed: 08/12/23 20:01> Associated symptoms: denies other symptoms <Danny Huertas MD - Last Filed: 08/12/23 20:01> Related Data Allergies/adverse reactions: Allergies Allergy/AdvReac Type Severity Reaction Status Date / Time Penicillins Allergy Mild Rash Verified 08/12/23 14:52 thiopental [From Pentothal] AdvReac Intermediate Nausea and Verified 08/12/23 14:52 Vomiting <Indigo Ahn APRN - Last Filed: 08/12/23 15:06> Review of Systems Review of Systems: All systems reviewed & are unremarkable except as noted in HPI and below <Danny Huertas MD - Last Filed: 08/12/23 20:01> Constitutional: Constitutional: Reports no additional constitutional complaints <Danny Huertas MD - Last Filed: 08/12/23 20:01> Eyes: Eyes: Reports no additional eye complaints <Danny Huertas MD - Last Filed: 08/12/23 20:01> ENT: Reports system reviewed and no additional complaints, except as documented <Danny Huertas MD - Last Filed: 08/12/23 20:01> Cardiovascular: Cardiovascular: Reports no additional cardiovascular complaints <Danny Huertas MD - Last Filed: 08/12/23 20:01> Respiratory: Respiratory: Reports no additional respiratory complaints <Danny Huertas MD - Last Filed: 08/12/23 20:01> Gastrointestinal: Gastrointestinal: Reports no additional gastrointestinal complaints <Danny Huertas MD - Last Filed: 08/12/23 20:01> Musculoskeletal: Musculoskeletal: Reports no additional musculoskeletal complaints <Danny Huertas MD - Last Filed: 08/12/23 20:01> Integumentary/Breasts: Skin/Breast: Reports system reviewed and no additional complaints, except as docu <Danny Huertas MD - Last Filed: 08/12/23 20:01> Neurologic: Reports system reviewed and no additional complaints, ex
[2023-08-12 15:53] LABS: Basophils Percent Auto 0.3 % (0.2-1.2); Eosinophils Absolute Auto 0.1 K/mm3 (0-0.3); Eosinophils Percent Auto 2.1 % (0-4.4); Hematocrit 32.1 % (37.0-47.0); Hemoglobin 9.9 g/dL (12.0-15.0); Immature Granulocyte Absolute 0.01 K/mm3 (0.00-0.031); Immature Granulocyte Percent A 0.2 % (0-0.5); Immature Platelet Fraction Pct 7.7 % (0.9-11.2); Lymphocytes Absolute Auto 0.96 K/mm3 (0.9-3.2); Lymphocytes Percent Auto 14.7 % (18.3-44.2); Mean Corpuscular HGB Conc 30.8 g/dl (32-36); Mean Corpuscular Hemoglobin 31.1 pg (26-34); Mean Corpuscular Volume 100.9 fl (80-100); Mean Platelet Volume 11.3 fl (7.4-10.4); Monocytes Absolute Auto 0.5 K/mm3 (0.1-0.6); Monocytes Percent Auto 6.9 % (2.6-8.5); Neutrophils Percent Auto 75.8 % (45.5-73.1); Platelet Count Result 127 k/mm3 (150-375); Red Blood Count 3.18 M/mm3 (4.2-5.4); Red Cell Distribution Width 13.2 % (11.5-14.5); White Blood Count 6.5 K/mm3 (4.5-10.0)
[2023-08-12 16:01] LABS: INR 1.2; Partial Thromboplastin Time 34.2 Seconds (22.3-36.8); Prothrombin Time 15.8 Seconds (11.1-14.7)
[2023-08-12 16:03] LABS: Alanine Aminotransferase 13 U/L (6-35); Albumin Level 3.9 g/dL (3.5-5.1); Alkaline Phosphatase 45 U/L (38-126); Anion Gap 6 mmol/L (4-12); Aspartate Amino Transferase 33 U/L (14-36); Bilirubin,Total 1.7 mg/dL (0.2-1.3); Blood Urea Nitrogen 36 mg/dL (7-17); Calcium 8.9 mg/dL (8.4-10.2); Carbon Dioxide 30 mmol/L (22-30); Chloride 103 mmol/L (98-107); Estimated CRCL calculation 39 ml/min; Estimated Glomerular Filt Rate 44; Glucose 112 mg/dL (65-110); Sodium 139 mmol/L (137-145)
[2023-08-12] MEDS: SODIUM CHLORIDE 0.9% IV 1,000 ML 999 ML IV CONT (18:06)
[2023-08-12] MEDS: SODIUM CHLORIDE 0.9% IV 500 ML 150 ML IV CONT (18:38)
--- NOTE | 2023-08-12 21:09 | PC.NURSE ---
2100: Report from HEATHER Hernandez RN. Per RN last BP taken prior to IMU arrival 101/59.
--- NOTE | 2023-08-12 21:10 | ADMGEN ---
2105: This patient, Ping Waller, was admitted to IMU Room 205-02. Patient/family oriented to hospital policies and general routines including ID bracelet, bed and alarms, visiting hours, pain management, procedures, bathroom and other care routines, personal items, smoking policy, room service/diet, and visiting hours. Information on how to activate the Rapid Response Team has been discussed. Patient/Family are encouraged to report perceived risks to care and to ask questions if they do not understand what they are told or what they should do.
[2023-08-12] MEDS: GABAPENTIN 300 MG CAPSULE PO (22:55)
[2023-08-12] MEDS: PRAMIPEXOLE 1 MG TABLET PO (22:55)
[2023-08-12] MEDS: ACETAMINOPHEN 325 MG TABLET 650 MG PO (22:55)
[2023-08-12] MEDS: WATER FOR IRRIGATION, STERILE 1,000 ML BOTTLE 1000 ML (22:57)
[2023-08-13] VITALS (23 sets, daily range): BP systolic 98–141; BP diastolic 69–99; PULSE 54–105; RESP 16–24; TEMP 36–36.8; O2SAT 86–98; BMI 34.0
[2023-08-13] MEDS: SODIUM CHLORIDE 0.9% IV 1,000 ML 100 ML IV CONT (00:08)
[2023-08-13] MEDS: LORazepam INJ (*CRX) 2 MG/ML VIAL IV PUSH (01:51)
--- NOTE | 2023-08-13 02:37 | PM.IMHP ---
H&P: HPI History of Present Illness Date/Time: 08/13/23 02:37 Chief Complaint: 1. Falls 2. Facial trauma and swelling Narrative: Ping Waller, is a 77yo F with a mHx signfiicant for depression, COPD, RLS, NIDDM On 08/10/23, she presented to the ED with a right facial swelling; this occurred when while at home in bed, she reached out to pick a distant object, overshot the bed and hit her face on the adjacent dresser. She denied loss of consciousness, but complained of minimal facial pain and a laceration over the right eyebrow. There were no associated symptoms of weakness, numbness, loss of vision, chest pain, shortness of breath and has no other complaints at this time. She retuned home from the ED after her laceration was managed with Steri-Strips. Howevere while in bed again on 08/12/23, in similar fashion, she reached out for an object in the distance, overshot the bed and hit the left side of her face on the same dresser; with minimal complications other that left eye swelling, she returned to the ED for expert evaluation She does not smoke, chew tobacco, drink alcohol or consume recreational drugs; her family Hx is not contributory to the PC Work-up findings: Head CT: . Normal aging brain. Head/Cervical Spine/Facial Bones CT?:1. No fracture. 2. Severe cervical spondylosis. 3. Hematoma involving the left neck and superior mediastinum. Ribs X-Ray: 1. No acute rib fracture. 2. Cardiomegaly. WBC 5.6 Hb 9.3 PLT 99 Na 139 K 4.1 Cl 105 BUN 32 Cr 1 GFR 54 T. Bili 1.5 AsT 37 ALP 14 AlP 44 Ping Waller will be admitted for recurrent falls with bilateral periorbital hematoma and mediastinal hematoma Review of Systems Constitutional: Constitutional: Reports fatigue, Denies lethargy and Reports night sweats ENT: Denies Normal hearing present, Denies dysphagia, Denies epistaxis and Denies nasal congestion Respiratory: Respiratory: Denies cough, Denies hemoptysis, Denies dyspnea and Denies dyspnea on exertion Gastrointestinal: Gastrointestinal: Denies nausea Genitourinary: Genitourinary: Denies nocturia, Denies urinary hesitancy and Denies urinary urgency Integumentary/Breasts: Skin/Breast: Denies system reviewed and no additional complaints, except as docu Neurologic: Denies abnormal gait, Denies confusion and Denies vertigo Psychiatric: Psychiatric: Denies depression and Denies homicidal ideation [facility] Past Medical History Medical History Acute and chronic respiratory failure Acute exacerbation of CHF (congestive heart failure) Acute respiratory failure Alcohol abuse Atrial fibrillation Azotemia Cervical disc disorder with radiculopathy of cervicothoracic region CHF exacerbation Chronic depression Chronic respiratory failure with hypoxia COVID-19 Elevated troponin level Hyperglycemia Hypertensive urgency Lung nodules 09/2018: stable R apex nodule/ multiple other nodules/emphysema LDCT: stable Mixed hyperlipidemia Murmur, cardiac Nicotine dependence, unspecified, 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 Surgical History Surgical History History of appendectomy History of carpal tunnel surgery of left wrist (03/02/20) History of hysterectomy History of total replacement of right shoulder joint History of total right hip arthroplasty Family History Family History Mother Family history of osteoporosis Family history of mental disorder Family history of anemia Family history of arthritis Family history of malignant neoplasm Family history of Alzheimer's d
[2023-08-13 03:29] LABS: Basophils Percent Auto 0.2 % (0.2-1.2); Eosinophils Absolute Auto 0.2 K/mm3 (0-0.3); Eosinophils Percent Auto 2.9 % (0-4.4); Hematocrit 30.7 % (37.0-47.0); Hemoglobin 9.3 g/dL (12.0-15.0); Immature Granulocyte Absolute 0.01 K/mm3 (0.00-0.031); Immature Granulocyte Percent A 0.2 % (0-0.5); Immature Platelet Fraction Pct 7.6 % (0.9-11.2); Lymphocytes Absolute Auto 1.22 K/mm3 (0.9-3.2); Lymphocytes Percent Auto 21.9 % (18.3-44.2); Mean Corpuscular HGB Conc 30.3 g/dl (32-36); Mean Corpuscular Volume 102.3 fl (80-100); Mean Platelet Volume 11.5 fl (7.4-10.4); Monocytes Absolute Auto 0.4 K/mm3 (0.1-0.6); Neutrophils Absolute Auto 3.8 K/mm3 (1.3-6.7); Neutrophils Percent Auto 67.8 % (45.5-73.1); Platelet Count Result 99 k/mm3 (150-375); Red Cell Distribution Width 13.2 % (11.5-14.5); White Blood Count 5.6 K/mm3 (4.5-10.0)
[2023-08-13 03:41] LABS: Alanine Aminotransferase 14 U/L (6-35); Albumin Level 3.6 g/dL (3.5-5.1); Alkaline Phosphatase 44 U/L (38-126); Anion Gap 4 mmol/L (4-12); Aspartate Amino Transferase 37 U/L (14-36); Bilirubin,Total 1.5 mg/dL (0.2-1.3); Blood Urea Nitrogen 32 mg/dL (7-17); Calcium 8.5 mg/dL (8.4-10.2); Carbon Dioxide 30 mmol/L (22-30); Chloride 105 mmol/L (98-107); Estimated CRCL calculation 47 ml/min; Estimated Glomerular Filt Rate 54; Glucose 98 mg/dL (65-110); Potassium 4.1 mmol/L (3.4-5.0); Sodium 139 mmol/L (137-145)
[2023-08-13 04:02] LABS: Anisocytosis 1+; Large Platelets Present; Platelet Estimate Decreased (Adequate)
[2023-08-13 04:03] LABS: Schistocytes None Seen
[2023-08-13] MEDS: GABAPENTIN 300 MG CAPSULE PO ×3 (09:10→17:00)
[2023-08-13] MEDS: EMPAGLIFLOZIN 10 MG TABLET PO (09:10)
[2023-08-13] MEDS: SACUBITRIL/VALSARTAN 24-26 MG TABLET 1 TAB PO ×2 (09:11→17:00)
[2023-08-13] MEDS: SERTRALINE HCL 50 MG TABLET 100 MG PO (09:11)
[2023-08-13] MEDS: ROSUVASTATIN 10 MG TABLET PO (09:11)
--- NOTE | 2023-08-13 10:50 | PM.IMPN ---
Progress Note: A&P Assessment and Plan (1) RLS (restless legs syndrome): Code(s): G25.81 - Restless legs syndrome Status: Acute (2) Oxygen dependent: Code(s): Z99.81 - Dependence on supplemental oxygen Status: Acute (3) Pulmonary HTN: Code(s): I27.20 - Pulmonary hypertension, unspecified Status: Acute (4) Mixed hyperlipidemia: Code(s): E78.2 - Mixed hyperlipidemia Status: Acute Plan # Recurrent falls with facial truama #. Bilateral periorbital hematoma # Physical deconditioning # Hematoma, Left neck and superior mediastinum. Will get CT chest to evaluate superior mediastinal hematoma. Hold Xarelto #. Thrombocytopenia # anemia. mild will hold ivf. holdl xarleto. monitor. # RLS. on Pramipexole # chronic respiratory failure on home oxygen stable at baseline # NIDDM. Basal, correctional insulin # Recurrent depression. on Sertraline # Dyslipidemia. on Statin # Atrial fibrillation # COPD. on Albuterol # Code status. Full # Nutrition. Heart healthy # Dispositions. TBD Subjective Date/time seen: 08/13/23 10:50 Interval history: Feels okay. Denies any chest pain or shortness of breath. Bruises all over her face and her neck Review of Systems Review of Systems: All systems reviewed & are unremarkable except as noted in HPI and below Exam Narrative: GENERAL: Well-appearing, well-nourished, and in no acute distress. HEAD: Normocephalic, atraumatic. multiple bruises and hematoma on the left? parietal area , a small superficial lac present. EYES: PERRLA and EOMI. ENT: Nares clear, no rhinorrhea or epistaxis.? Mucous membranes moist. NECK: Supple. CHEST: Clear to auscultation.? No respiratory distress. HEART: Regular rate and rhythm.? No murmur heard.? Normal peripheral pulses. ABDOMEN: Soft, nontender, nondistended, normal active bowel sounds. EXTREMITIES: Normal range of motion.? No edema. SKIN: Warm, dry, no rash. NEURO: No focal deficits.? Alert and oriented x3. PSYCH: Normal mood and affect. Objective Data Vital Signs Vital Signs: Vital Signs - 24 hr 08/12/23 14:55 08/12/23 18:00 08/12/23 18:08 Temperature 98.1 F Pulse Rate 84 78 Respiratory Rate 20 20 Blood Pressure 95/53 L 79/53 L Pulse Oximetry 90 98 100 Oxygen Delivery Room Air Nasal Cannula Oxygen Flow Rate 4 08/12/23 18:11 08/12/23 18:39 08/12/23 17:41 Temperature Pulse Rate 80 80 Respiratory Rate 20 18 20 Blood Pressure 86/60 L 86/56 L Pulse Oximetry 100 100 99 Oxygen Delivery Oxygen Flow Rate 08/12/23 17:45 08/12/23 17:55 08/12/23 17:59 Temperature Pulse Rate 85 95 88 Respiratory Rate 18 15 16 Blood Pressure 82/55 L 79/53 L Pulse Oximetry 100 81 L 100 Oxygen Delivery Oxygen Flow Rate 08/12/23 18:00 08/12/23 18:09 08/12/23 18:12 Temperature Pulse Rate 87 77 Respiratory Rate 18 19 Blood Pressure 83/59 L 86/60 L Pulse Oximetry 99 100 100 Oxygen Delivery Oxygen Flow Rate 08/12/23 18:15 08/12/23 18:16 08/12/23 18:29 Temperature Pulse Rate 76 82 72 Respiratory Rate 17 15 15 Blood Pressure 85/72 L 97/47 L Pulse Oximetry 100 100 Oxygen Delivery Oxygen Flow Rate 08/12/23 18:30 08/12/23 18:31 08/12/23 18:45 Temperature Pulse Rate 82 72 Respiratory Rate 17 17 18 Blood Pressure 86/54 L Pulse Oximetry 100 100 100 Oxygen Delivery Oxygen Flow Rate 08/12/23 18:46 08/12/23 19:00 08/12/23 19:07 Temperature Pulse Rate 79 87 Respiratory Rate 18 21 H 18 Blood Pressure 85/73 L 87/61 L Pulse Oximetry 100 99 100 Oxygen Delivery Oxygen Flow Rate 08/12/23 19:15 08/12/23 19:16 08/12/23 19:30 Temperature Pulse Rate 80 83 81 Respiratory Rate 16 18 20 Blood Pressure 91/72 L Pulse Oximetry 100 99 100 Oxygen Delivery Oxygen Flow Rate 08/12/23 19:32 08/12/23 19:45 08/12/23 19:46 Temperature Pulse Rate 74 74 80 Respiratory Rate 21 H 15 22 H Blood Pressure 99/67
[2023-08-13] MEDS: rOPINIRole HCL 1 MG TABLET PO (16:42)
--- NOTE | 2023-08-13 18:24 | PC.NURSE ---
At approximately 1750 pt arrived to room 242. Pt oriented to new room and instructed to use call light for any help.
[2023-08-13] MEDS: PRAMIPEXOLE 1 MG TABLET PO (20:27)
[2023-08-14] VITALS (13 sets, daily range): BP systolic 115–133; BP diastolic 72–88; PULSE 65–86; RESP 16–24; TEMP 36–36.5; O2SAT 92–99
[2023-08-14] MEDS: rOPINIRole HCL 1 MG TABLET PO ×3 (05:00→20:25)
[2023-08-14 06:34] LABS: Basophils Percent Auto 0.2 % (0.2-1.2); Eosinophils Absolute Auto 0.3 K/mm3 (0-0.3); Eosinophils Percent Auto 5.5 % (0-4.4); Hematocrit 31.1 % (37.0-47.0); Hemoglobin 9.5 g/dL (12.0-15.0); Immature Granulocyte Absolute 0.01 K/mm3 (0.00-0.031); Immature Granulocyte Percent A 0.2 % (0-0.5); Immature Platelet Fraction Pct 8.1 % (0.9-11.2); Lymphocytes Absolute Auto 1.02 K/mm3 (0.9-3.2); Lymphocytes Percent Auto 21.7 % (18.3-44.2); Mean Corpuscular HGB Conc 30.5 g/dl (32-36); Mean Corpuscular Hemoglobin 31.5 pg (26-34); Mean Platelet Volume 11.5 fl (7.4-10.4); Monocytes Absolute Auto 0.3 K/mm3 (0.1-0.6); Monocytes Percent Auto 5.7 % (2.6-8.5); Neutrophils Absolute Auto 3.1 K/mm3 (1.3-6.7); Neutrophils Percent Auto 66.7 % (45.5-73.1); Platelet Count Result 97 k/mm3 (150-375); Red Blood Count 3.02 M/mm3 (4.2-5.4); Red Cell Distribution Width 13.1 % (11.5-14.5); White Blood Count 4.7 K/mm3 (4.5-10.0)
[2023-08-14 07:14] LABS: Alanine Aminotransferase 14 U/L (6-35); Albumin Level 3.7 g/dL (3.5-5.1); Alkaline Phosphatase 45 U/L (38-126); Anion Gap 3 mmol/L (4-12); Aspartate Amino Transferase 37 U/L (14-36); Bilirubin,Total 1.5 mg/dL (0.2-1.3); Blood Urea Nitrogen 20 mg/dL (7-17); Calcium 9.2 mg/dL (8.4-10.2); Carbon Dioxide 33 mmol/L (22-30); Chloride 104 mmol/L (98-107); Estimated CRCL calculation 58 ml/min; Estimated Glomerular Filt Rate > 60; Glucose 101 mg/dL (65-110); Potassium 4.3 mmol/L (3.4-5.0); Sodium 140 mmol/L (137-145)
[2023-08-14] MEDS: FUROSEMIDE 40 MG TABLET PO (08:33)
[2023-08-14] MEDS: GABAPENTIN 300 MG CAPSULE PO ×3 (08:33→16:21)
[2023-08-14] MEDS: CHOLECALCIFEROL 1,000 UNITS TABLET 2000 UNITS PO (08:33)
[2023-08-14] MEDS: SERTRALINE HCL 50 MG TABLET 100 MG PO (08:33)
[2023-08-14] MEDS: EMPAGLIFLOZIN 10 MG TABLET PO (08:33)
[2023-08-14] MEDS: LOPERAMIDE HCL 2 MG CAPSULE 4 MG PO (08:34)
[2023-08-14] MEDS: METOPROLOL TARTRATE 50 MG TAB 100 MG PO ×2 (08:34→20:26)
[2023-08-14] MEDS: SACUBITRIL/VALSARTAN 24-26 MG TABLET 1 TAB PO ×2 (08:34→16:21)
[2023-08-14 10:41] LABS: Ethanol < 10 mg/dL (<10)
[2023-08-14 14:18] LABS: Amphetamine Screen Urine Negative (Negative); Barbiturate Screen Urine Negative (Negative); Benzodiazepines Screen Urine Negative (Negative); Cannabinoid Screen Urine Negative (Negative); Cocaine Screen Urine Negative (Negative); Methadone Screen Urine Negative (Negative); Opiate Screen Urine Negative (Negative); Phencyclidine Screen Urine Negative (Negative)
--- NOTE | 2023-08-14 14:42 | PM.IMPN ---
Progress Note: A&P Assessment and Plan (1) RLS (restless legs syndrome): Code(s): G25.81 - Restless legs syndrome Status: Acute (2) Oxygen dependent: Code(s): Z99.81 - Dependence on supplemental oxygen Status: Acute (3) Pulmonary HTN: Code(s): I27.20 - Pulmonary hypertension, unspecified Status: Acute (4) Mixed hyperlipidemia: Code(s): E78.2 - Mixed hyperlipidemia Status: Acute Plan # Recurrent falls with facial trauma - etiology unclear on why she is falling. Denies alchol and drug use. no Benadryl.Alcohol and UDS negative. PT/OT # Bilateral periorbital hematoma - hgb down to 9.5. Low but stable. Follow but suspect bleeding has stopped. # Physical deconditioning - PT/OT # Hematoma - CT neck showing hematoma of the left neck and superior mediastinum. CT chest showing fat stranding in the left supraclavicular region and superior mediastinum likely hematoma. Continue to hold Xarelto # Thrombocytopenia - chronci and noted back in 2020. Plt count 127K but dropped to 90K range probably from consumption. Follow. # Anemia. - mild. Hgb down to 9 rangeand stable. Holding xarleto. monitor. # RLS - on Pramipexole # Chronic respiratory failure - stable on home oxygen # NIDDM - The patient's blood glucose was reviewed and remains well controlled. Continue AccuCheks covering with sliding scale. Hypoglycemia protocol available as needed. # Recurrent depression - mood stable. Continue sertraline # Dyslipidemia - on Statin # Atrial fibrillation - HR stable. Continue Lopressor. Xarelto on hold. # COPD - stable on Albuterol Code status - Full DVT prophylaxis - SCDs Subjective Date/time seen: 08/14/23 14:42 Interval history: 77yo female with chronic resp failure, AFib and alcohol abuse here for multiple falls with trauma. Assuming care. Chart reviewed. Denies alcohol or drug use. States she was trying to turn off her CPAP and lost balance. No CP. Does have mild cough. Eating okay. Complains of chest tightness but no pain. No radiation to the chest discomfort. Exam Narrative: AF 96.9 124/78 65 20 96% 4L Gen - NARD HEENT - multiple bruising noted bilateral eliazar-orbital with brusing tracking into the neck Chest - left base crackles. expiratory wheezes appreciated. CV - irregular Abd - Soft, NT/ND, Positive BS Ext - No pedal edema Neuro - Alert and oriented. Nonfocal exam. Psych - Nml mood and affect Skin - Warm and dry Objective Data Vital Signs Vital Signs: Vital Signs - 24 hr 08/13/23 15:49 08/13/23 16:05 08/13/23 17:57 Temperature 97.8 F 98.3 F Pulse Rate 98 79 105 H Respiratory Rate 24 H 16 Blood Pressure 116/82 98/69 L Pulse Oximetry 98 97 96 Oxygen Delivery Nasal Cannula Oxygen Flow Rate 2 08/13/23 16:00 08/13/23 18:32 08/13/23 19:39 Temperature 97.7 F Pulse Rate 86 100 93 Respiratory Rate 16 22 H Blood Pressure 116/73 99/78 L Pulse Oximetry 98 96 Oxygen Delivery Oxygen Flow Rate 08/13/23 20:32 08/13/23 20:34 08/13/23 20:35 Temperature Pulse Rate 93 84 Respiratory Rate 20 Blood Pressure Pulse Oximetry 96 93 Oxygen Delivery Nasal Cannula CPAP Oxygen Flow Rate 2 08/13/23 23:25 08/13/23 20:20 08/14/23 03:01 Temperature 97.2 F L Pulse Rate 94 85 Respiratory Rate 20 16 Blood Pressure 102/70 Pulse Oximetry 94 96 94 Oxygen Delivery Nasal Cannula CPAP Oxygen Flow Rate 4 08/14/23 04:00 08/14/23 04:29 08/14/23 07:59 Temperature 96.8 F L 96.8 F L Pulse Rate 86 86 73 Respiratory Rate 20 20 Blood Pressure 119/77 119/77 130/79 Pulse Oximetry 94 94 Oxygen Delivery Oxygen Flow Rate 08/14/23 08:34 08/14/23 08:15 08/14/23 09:18 Temperature 97.3 F L Pulse Rate 73 Respiratory Rate 24 H Blood Pressure Pulse Oximetry 99 99 Oxygen Delivery Nasal Cannula Oxygen Flow Rate 4 08/14/23 10:25 08/14/23 12:00 Temperature 96.9 F L Pulse Rate 65 Resp
[2023-08-14] MEDS: PRAMIPEXOLE 1 MG TABLET PO (20:25)
[2023-08-15] VITALS (8 sets, daily range): BP systolic 92–126; BP diastolic 60–80; PULSE 70–85; RESP 16–22; TEMP 36.3–36.8; O2SAT 91–98
[2023-08-15] MEDS: rOPINIRole HCL 1 MG TABLET PO ×3 (05:34→21:12)
[2023-08-15 05:38] LABS: Basophils Percent Auto 0.4 % (0.2-1.2); Eosinophils Absolute Auto 0.3 K/mm3 (0-0.3); Eosinophils Percent Auto 5.4 % (0-4.4); Hematocrit 31.7 % (37.0-47.0); Hemoglobin 9.8 g/dL (12.0-15.0); Immature Granulocyte Absolute 0.01 K/mm3 (0.00-0.031); Immature Granulocyte Percent A 0.2 % (0-0.5); Immature Platelet Fraction Pct 9.5 % (0.9-11.2); Lymphocytes Absolute Auto 1.03 K/mm3 (0.9-3.2); Lymphocytes Percent Auto 20.8 % (18.3-44.2); Mean Corpuscular HGB Conc 30.9 g/dl (32-36); Mean Corpuscular Hemoglobin 31.4 pg (26-34); Mean Corpuscular Volume 101.6 fl (80-100); Mean Platelet Volume 11.6 fl (7.4-10.4); Monocytes Absolute Auto 0.3 K/mm3 (0.1-0.6); Monocytes Percent Auto 6.9 % (2.6-8.5); Neutrophils Absolute Auto 3.3 K/mm3 (1.3-6.7); Neutrophils Percent Auto 66.3 % (45.5-73.1); Platelet Count Result 105 k/mm3 (150-375); Red Blood Count 3.12 M/mm3 (4.2-5.4); Red Cell Distribution Width 12.8 % (11.5-14.5)
[2023-08-15 05:48] LABS: Alanine Aminotransferase 15 U/L (6-35); Albumin Level 3.7 g/dL (3.5-5.1); Alkaline Phosphatase 44 U/L (38-126); Anion Gap 3 mmol/L (4-12); Aspartate Amino Transferase 31 U/L (14-36); Bilirubin,Total 1.4 mg/dL (0.2-1.3); Blood Urea Nitrogen 19 mg/dL (7-17); Calcium 9.2 mg/dL (8.4-10.2); Carbon Dioxide 37 mmol/L (22-30); Chloride 99 mmol/L (98-107); Estimated CRCL calculation 52 ml/min; Estimated Glomerular Filt Rate > 60; Glucose 95 mg/dL (65-110); Potassium 4.6 mmol/L (3.4-5.0); Sodium 139 mmol/L (137-145)
[2023-08-15] MEDS: CHOLECALCIFEROL 1,000 UNITS TABLET 2000 UNITS PO (08:35)
[2023-08-15] MEDS: GABAPENTIN 300 MG CAPSULE PO ×3 (08:35→17:34)
[2023-08-15] MEDS: METOPROLOL TARTRATE 50 MG TAB 100 MG PO (08:35)
[2023-08-15] MEDS: FUROSEMIDE 40 MG TABLET PO (08:35)
[2023-08-15] MEDS: SACUBITRIL/VALSARTAN 24-26 MG TABLET 1 TAB PO ×2 (08:35→17:34)
[2023-08-15] MEDS: LOPERAMIDE HCL 2 MG CAPSULE 4 MG PO (08:35)
[2023-08-15] MEDS: SERTRALINE HCL 50 MG TABLET 100 MG PO (08:35)
[2023-08-15] MEDS: EMPAGLIFLOZIN 10 MG TABLET PO (08:35)
--- NOTE | 2023-08-15 13:53 | PM.IMPN ---
Progress Note: A&P Assessment and Plan (1) RLS (restless legs syndrome): Code(s): G25.81 - Restless legs syndrome Status: Acute (2) Oxygen dependent: Code(s): Z99.81 - Dependence on supplemental oxygen Status: Acute (3) Pulmonary HTN: Code(s): I27.20 - Pulmonary hypertension, unspecified Status: Acute (4) Mixed hyperlipidemia: Code(s): E78.2 - Mixed hyperlipidemia Status: Acute Plan # Recurrent falls with facial trauma - etiology unclear on why she is falling. Denies alcohol and drug use. no Benadryl.Alcohol and UDS negative. She is working with PT/OT. Still feels unsteady. Consider SNF placement. # Bilateral periorbital hematoma - hgb down to 9.5. Low but stable. Appears bleeding has stopped. Follow hgb # Physical deconditioning - PT/OT # Hematoma - CT neck showing hematoma of the left neck and superior mediastinum. CT chest showing fat stranding in the left supraclavicular region and superior mediastinum likely hematoma. Continue to hold Xarelto and resume at discharge # Thrombocytopenia - chronic and noted back in 2020. Plt count 127K but dropped to 90K range probably from consumption. Plt count better now at 105K. Follow. # Anemia. - mild. Hgb down to 9 range and stable. Holding xarleto. monitor. # RLS - stable on Pramipexole # Chronic respiratory failure - stable on home oxygen # NIDDM - The patient's blood glucose was reviewed and remains well controlled. Continue AccuCheks covering with sliding scale. Hypoglycemia protocol available as needed. # Recurrent depression - mood stable. Continue sertraline # Dyslipidemia - LFTs okay. Continue Statin # Atrial fibrillation - HR stable. Continue Lopressor. Xarelto on hold. # COPD - stable on Albuterol Code status - Full DVT prophylaxis - SCDs Subjective Date/time seen: 08/15/23 13:53 Interval history: 77yo female with chronic resp failure, AFib and alcohol abuse here for multiple falls with trauma. Still feels weak and dizzy when walking with therapy. She is able to walk in halls with walker. Slept okay. No CP or SOB. +URBANO. Her last alcoholic drink was in January. Exam Narrative: AF 98.3 122/71 70 18 97% 4L Gen - NARD HEENT - multiple bruises noted bilateral eliazar-orbital with ecchymosis into the neck Chest - bibasilar crackles. scattered expiratory wheezes appreciated. CV - irregularly irregular Abd - Soft, NT/ND, Positive BS Ext - No pedal edema Psych - Nml mood and affect Skin - Warm and dry Objective Data Vital Signs Vital Signs: Vital Signs - 24 hr 08/14/23 16:00 08/14/23 19:22 08/14/23 20:26 Temperature 97.7 F 97.5 F L Pulse Rate 81 79 79 Respiratory Rate 16 18 Blood Pressure 133/88 115/72 Pulse Oximetry 99 98 Oxygen Delivery Oxygen Flow Rate 08/15/23 00:00 08/14/23 20:20 08/14/23 23:30 Temperature 97.5 F L Pulse Rate 71 Respiratory Rate 18 Blood Pressure 119/74 Pulse Oximetry 96 98 92 Oxygen Delivery Nasal Cannula Nasal Cannula Oxygen Flow Rate 4 4 08/14/23 23:30 08/15/23 04:00 08/15/23 03:40 Temperature 98.3 F Pulse Rate 74 71 70 Respiratory Rate 18 18 17 Blood Pressure 122/71 Pulse Oximetry 92 97 91 Oxygen Delivery CPAP CPAP Oxygen Flow Rate 08/15/23 08:35 Temperature Pulse Rate 70 Respiratory Rate Blood Pressure Pulse Oximetry Oxygen Delivery Oxygen Flow Rate Intake/Output Intake/Output: Intake & Output 08/12/23 08/13/23 08/14/23 08/15/23 23:59 23:59 23:59 23:59 Intake Total 1000 1220 800 790 Output Total 150 Balance 1000 1220 800 640 Meds/Results Medications: Active Medications Generic Name Dose Route Start Last Admin Trade Name Freq PRN Reason Stop Dose Admin Acetaminophen 650 mg 08/12/23 20:01 08/12/23 22:55 Acetaminophen 325 Mg Tablet PO 650 mg Q4H PRN Administration Mild Pain (1-3) or Fever Albuterol 2.5 mg 08/13/23 15:29 Albuterol Sulfate Neb 2.
--- NOTE | 2023-08-15 14:47 | PHAR ---
HOME MED: BALSALAZIDE 750 MG CAPS; TAKE 3 CAPS BY MOUTH TID. VERIFIED BY PHARMACY.
[2023-08-15] MEDS: PRAMIPEXOLE 1 MG TABLET PO (21:12)
[2023-08-16] VITALS (8 sets, daily range): BP systolic 73–119; BP diastolic 49–71; PULSE 86–93; RESP 17–20; TEMP 36.3–36.7; O2SAT 92–99
[2023-08-16 04:59] LABS: Hemoglobin 9.9 g/dL (12.0-15.0); Mean Corpuscular HGB Conc 30.9 g/dl (32-36); Mean Corpuscular Hemoglobin 31.2 pg (26-34); Mean Corpuscular Volume 100.9 fl (80-100); Mean Platelet Volume 11.7 fl (7.4-10.4); Platelet Count Result 114 k/mm3 (150-375); Red Blood Count 3.17 M/mm3 (4.2-5.4); Red Cell Distribution Width 12.7 % (11.5-14.5); White Blood Count 5.1 K/mm3 (4.5-10.0)
[2023-08-16] MEDS: rOPINIRole HCL 1 MG TABLET PO ×3 (05:07→21:14)
[2023-08-16] MEDS: GABAPENTIN 300 MG CAPSULE PO ×3 (08:58→17:20)
[2023-08-16] MEDS: CHOLECALCIFEROL 1,000 UNITS TABLET 2000 UNITS PO (08:58)
[2023-08-16] MEDS: SERTRALINE HCL 50 MG TABLET 100 MG PO (08:58)
[2023-08-16] MEDS: LOPERAMIDE HCL 2 MG CAPSULE 4 MG PO (08:59)
--- NOTE | 2023-08-16 11:06 | PM.IMPN ---
Progress Note: A&P Assessment and Plan (1) Hypotension: Qualifiers: Hypotension type: unspecified hypotension type Qualified Code(s): I95.9 - Hypotension, unspecified Code(s): I95.9 - Hypotension, unspecified Status: Acute (2) Frequent falls: Code(s): R29.6 - Repeated falls Status: Acute (3) Periorbital hematoma of both eyes: Code(s): H05.233 - Hemorrhage of bilateral orbit Status: Acute (4) Physical deconditioning: Code(s): R53.81 - Other malaise Status: Acute (5) Hematoma and contusion: Code(s): T14.8XXA - Other injury of unspecified body region, initial encounter Status: Acute (6) Thrombocytopenia: Code(s): D69.6 - Thrombocytopenia, unspecified Status: Acute (7) Anemia: Code(s): D64.9 - Anemia, unspecified Status: Acute (8) RLS (restless legs syndrome): Code(s): G25.81 - Restless legs syndrome Status: Acute (9) Chronic respiratory failure with hypoxia: Code(s): J96.11 - Chronic respiratory failure with hypoxia Status: Acute (10) Atrial fibrillation: Qualifiers: Atrial fibrillation type: unspecified chronic Qualified Code(s): I48.20 - Chronic atrial fibrillation, unspecified Code(s): I48.91 - Unspecified atrial fibrillation Status: Acute (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 This appears to be a chronic intermittent issue that her law enforcement officer is aware of. Etiology unclear. She is asymptomatic. No evidence of infection except that she has a cough that is nonproductive. Will check chest x-ray. Will check electrolytes. Hemoglobin is stable so doubt that this is related to acute blood loss. Will give fluid bolus. Hold empagliflozin, Entresto, Lasix and Lopressor. She normally takes lasix everyday. # Recurrent falls with facial trauma - etiology unclear on why she is falling but could be related to transient HoTN. Denies alcohol and drug use. no Benadryl.Alcohol and UDS negative. She is working with PT/OT. Still feels unsteady. SNF placement being arranged. # Bilateral periorbital hematoma - hgb up to 9.9 now. Low but stable. Appears bleeding has stopped. Follow hgb # Physical deconditioning - PT/OT # Hematoma - CT neck showing hematoma of the left neck and superior mediastinum. CT chest showing fat stranding in the left supraclavicular region and superior mediastinum likely hematoma. Continue to hold Xarelto and resume at discharge # Thrombocytopenia - chronic and noted back in 2020. Plt count 127K but dropped to 90K range probably from consumption. Plt count better now at 114K. Follow. # Anemia. - mild and felt acute blood loss anemia with underlying chronic anemia. Hgb down to 9 range and stable. Holding xarleto. monitor. # RLS - stable on Pramipexole # Chronic respiratory failure - stable on home oxygen # Recurrent depression - mood stable. Continue sertraline # Dyslipidemia - LFTs okay. Continue Statin # Atrial fibrillation - HR stable. Hold Lopressor. Xarelto on hold. # COPD - stable on Albuterol Code status - Full DVT prophylaxis - SCDs Subjective Date/time seen: 08/16/23 11:06 Interval history: 77yo female with chronic resp failure, AFib and alcohol abuse here for multiple falls with trauma. The patient was noted to have low blood pressure this morning. No chest pain, shortness of breath, lightheadedness or dizziness. No dysuria or hematuria. No fever or chills. She does have a nonproductive cough and feels tired. She has intermittent hypotension and checks her blood pressure 1-2 times a week when she feels off. Occasionally her blood pressure will run systolic 70-80 range. She normally calls her law enforcement officer
[2023-08-16 11:25] LABS: Alanine Aminotransferase 12 U/L (6-35); Albumin Level 3.6 g/dL (3.5-5.1); Alkaline Phosphatase 43 U/L (38-126); Anion Gap 2 mmol/L (4-12); Aspartate Amino Transferase 26 U/L (14-36); Bilirubin,Total 1.4 mg/dL (0.2-1.3); Blood Urea Nitrogen 28 mg/dL (7-17); Carbon Dioxide 34 mmol/L (22-30); Chloride 100 mmol/L (98-107); Estimated CRCL calculation 56 ml/min; Estimated Glomerular Filt Rate > 60; Glucose 93 mg/dL (65-110); Potassium 4.2 mmol/L (3.4-5.0); Sodium 136 mmol/L (137-145)
[2023-08-16] MEDS: SODIUM CHLORIDE 0.9% IV 500 ML 999 ML IV CONT (12:32)
[2023-08-16 12:33] LABS: Thyroid Stimulating Hormone Reflex 0.884 uIU/mL (0.465-4.68)
[2023-08-16] MEDS: PRAMIPEXOLE 1 MG TABLET PO (20:34)
[2023-08-16 21:00] LABS: Appearance Urine Turbid (Clear); Bacteria Urine 4+ /hpf; Bilirubin Urine Negative (Negative); Blood Urine 1+ (Negative); Color Urine Yellow (Yellow); Glucose Urine UA 1+ mg/dL (Negative); Ketones Urine Negative (Negative); Leukocyte Esterase Ur 3+ LEU/UL (Negative); Need Manual Microscopic Reviewed; Nitrate Urine Negative (Negative); Protein Urine Trace mg/dL (Negative); RBC Urine 0-2 /hpf (0-2); Specific Grav Ur 1.012 (1.001-1.035); Squamous Epithelial Cell Urine Occasional /hpf (Few); Urobilinogen Urine 0.2 mg/dL (<2.0); WBC Urine >100 /hpf (0-3)
[2023-08-16 21:02] LABS: Add Urine Microscopic? YES
[2023-08-17] VITALS (11 sets, daily range): BP systolic 95–111; BP diastolic 60–85; PULSE 60–119; RESP 18–20; TEMP 36.1–36.8; O2SAT 92–97
[2023-08-17 05:43] LABS: Basophils Percent Auto 0.3 % (0.2-1.2); Eosinophils Absolute Auto 0.2 K/mm3 (0-0.3); Eosinophils Percent Auto 3.9 % (0-4.4); Hematocrit 32.6 % (37.0-47.0); Hemoglobin 9.9 g/dL (12.0-15.0); Immature Granulocyte Absolute 0.02 K/mm3 (0.00-0.031); Immature Granulocyte Percent A 0.3 % (0-0.5); Immature Platelet Fraction Pct 9.3 % (0.9-11.2); Lymphocytes Absolute Auto 0.95 K/mm3 (0.9-3.2); Lymphocytes Percent Auto 15.3 % (18.3-44.2); Mean Corpuscular HGB Conc 30.4 g/dl (32-36); Mean Corpuscular Hemoglobin 31.2 pg (26-34); Mean Corpuscular Volume 102.8 fl (80-100); Mean Platelet Volume 11.9 fl (7.4-10.4); Monocytes Absolute Auto 0.4 K/mm3 (0.1-0.6); Monocytes Percent Auto 5.7 % (2.6-8.5); Neutrophils Absolute Auto 4.6 K/mm3 (1.3-6.7); Neutrophils Percent Auto 74.5 % (45.5-73.1); Platelet Count Result 123 k/mm3 (150-375); Red Blood Count 3.17 M/mm3 (4.2-5.4); Red Cell Distribution Width 12.8 % (11.5-14.5); White Blood Count 6.2 K/mm3 (4.5-10.0)
[2023-08-17 05:52] LABS: Albumin Level 3.8 g/dL (3.5-5.1); Anion Gap 4 mmol/L (4-12); Blood Urea Nitrogen 27 mg/dL (7-17); Calcium 9.1 mg/dL (8.4-10.2); Carbon Dioxide 35 mmol/L (22-30); Chloride 100 mmol/L (98-107); Estimated CRCL calculation 56 ml/min; Estimated Glomerular Filt Rate > 60; Glucose 105 mg/dL (65-110); Magnesium 2.1 mg/dL (1.6-2.3); Potassium 4.1 mmol/L (3.4-5.0); Sodium 139 mmol/L (137-145)
[2023-08-17] MEDS: rOPINIRole HCL 1 MG TABLET PO ×3 (06:08→21:13)
--- NOTE | 2023-08-17 07:31 | PM.IMPN ---
Progress Note: A&P Assessment and Plan (1) Hypotension: Qualifiers: Hypotension type: unspecified hypotension type Qualified Code(s): I95.9 - Hypotension, unspecified Code(s): I95.9 - Hypotension, unspecified Status: Acute Assessment and Plan: # HoTN - Patient noted to have low blood pressure yesterday morning. This appears to be a chronic intermittent issue that her side gluer is aware of. Etiology unclear. She is asymptomatic. She has a cough that is nonproductive. CXR showing mild atelectasis. Electrolytes stable. Hemoglobin is stable so doubt that this is related to acute blood loss. UA consistent with UTI so could be related to infection. She was given a fluid bolus and her empagliflozin, Entresto, Lasix and Lopressor were held. BP soft but improved. Will resume home mds as BP allows. (2) Frequent falls: Code(s): R29.6 - Repeated falls Status: Acute Assessment and Plan: # Recurrent falls with facial trauma - etiology unclear on why she is falling but could be related to transient HoTN. Denies alcohol and drug use. no Benadryl.Alcohol and UDS negative. She is working with PT/OT but still feels unsteady. SNF placement being arranged. (3) Periorbital hematoma of both eyes: Code(s): H05.233 - Hemorrhage of bilateral orbit Status: Acute Assessment and Plan: # Bilateral periorbital hematoma - hgb stable at 9.9 now. Low but stable. Appears bleeding has stopped. Follow hgb (4) Physical deconditioning: Code(s): R53.81 - Other malaise Status: Acute Assessment and Plan: # Physical deconditioning - PT/OT (5) Hematoma and contusion: Code(s): T14.8XXA - Other injury of unspecified body region, initial encounter Status: Acute Assessment and Plan: # Hematoma - CT neck showing hematoma of the left neck and superior mediastinum. CT chest showing fat stranding in the left supraclavicular region and superior mediastinum likely hematoma. Stable. Will resume Xarelto and monitor (6) Thrombocytopenia: Code(s): D69.6 - Thrombocytopenia, unspecified Status: Acute Assessment and Plan: # Thrombocytopenia - chronic and noted back in 2020. Plt count 127K but dropped to 90K range probably from consumption. Plt count better now at 123K. Follow. (7) Anemia: Code(s): D64.9 - Anemia, unspecified Status: Acute Assessment and Plan: # Anemia. - mild and felt acute blood loss anemia with underlying chronic anemia. Hgb in the 9 range and stable. Will resume xarleto. Monitor. (8) Chronic respiratory failure with hypoxia: Code(s): J96.11 - Chronic respiratory failure with hypoxia Status: Acute Assessment and Plan: # Chronic respiratory failure - stable on home oxygen (9) Atrial fibrillation: Qualifiers: Atrial fibrillation type: unspecified chronic Qualified Code(s): I48.20 - Chronic atrial fibrillation, unspecified Code(s): I48.91 - Unspecified atrial fibrillation Status: Acute Assessment and Plan: # Atrial fibrillation - HR stable. Holding Lopressor as above. Hgb stable. Will resume Xarelto. (10) COPD with emphysema: Qualifiers: Emphysema type: unspecified Qualified Code(s): J43.9 - Emphysema, unspecified Code(s): J43.9 - Emphysema, unspecified Status: Acute Assessment and Plan: # COPD - more wheezing today. Schedule neb treatments. Consider adding steroids (11) UTI (urinary tract infection): Code(s): N39.0 - Urinary tract infection, site not specified Status: Acute Assessment and Plan: #UTI - Patient developed dysuria yesterday. UA consistent with UTI and urine Cx ordered. Start Rocephin (PCN allergy noted but she has had prior treatment). Will check BCx since she was HoTN yesterday. Plan # Recurrent depression - mood stable. Continue sertraline
[2023-08-17] MEDS: IPRATROPIUM 0.5 MG/ALBUTEROL SULFATE 2.5 MG AMPUL.NEB 3 ML INHALATION ×2 (08:35→19:38)
[2023-08-17] MEDS: SERTRALINE HCL 50 MG TABLET 100 MG PO (08:58)
[2023-08-17] MEDS: GABAPENTIN 300 MG CAPSULE PO ×3 (08:59→17:29)
[2023-08-17] MEDS: CHOLECALCIFEROL 1,000 UNITS TABLET 2000 UNITS PO (08:59)
[2023-08-17] MEDS: LOPERAMIDE HCL 2 MG CAPSULE 4 MG PO (08:59)
[2023-08-17] MEDS: cefTRIAXone 2 GM/NS 100 ML 2 GM/100 ML BAG IVPB (09:00)
[2023-08-17] MEDS: PRAMIPEXOLE 1 MG TABLET PO (21:13)
[2023-08-18] VITALS (14 sets, daily range): BP systolic 104–122; BP diastolic 59–97; PULSE 70–127; RESP 16–20; TEMP 36.4–36.8; O2SAT 93–97
[2023-08-18 05:00] LABS: Basophils Percent Auto 0.2 % (0.2-1.2); Eosinophils Absolute Auto 0.2 K/mm3 (0-0.3); Eosinophils Percent Auto 4.1 % (0-4.4); Hematocrit 31.7 % (37.0-47.0); Hemoglobin 9.7 g/dL (12.0-15.0); Immature Granulocyte Absolute 0.02 K/mm3 (0.00-0.031); Immature Granulocyte Percent A 0.4 % (0-0.5); Lymphocytes Absolute Auto 0.85 K/mm3 (0.9-3.2); Lymphocytes Percent Auto 16.7 % (18.3-44.2); Mean Corpuscular HGB Conc 30.6 g/dl (32-36); Mean Corpuscular Hemoglobin 31.2 pg (26-34); Mean Corpuscular Volume 101.9 fl (80-100); Mean Platelet Volume 11.3 fl (7.4-10.4); Monocytes Absolute Auto 0.2 K/mm3 (0.1-0.6); Monocytes Percent Auto 4.3 % (2.6-8.5); Neutrophils Absolute Auto 3.8 K/mm3 (1.3-6.7); Neutrophils Percent Auto 74.3 % (45.5-73.1); Platelet Count Result 120 k/mm3 (150-375); Red Blood Count 3.11 M/mm3 (4.2-5.4); Red Cell Distribution Width 13.1 % (11.5-14.5); White Blood Count 5.1 K/mm3 (4.5-10.0)
[2023-08-18 05:13] LABS: Anion Gap 2 mmol/L (4-12); Blood Urea Nitrogen 23 mg/dL (7-17); Calcium 9.2 mg/dL (8.4-10.2); Carbon Dioxide 39 mmol/L (22-30); Chloride 99 mmol/L (98-107); Estimated CRCL calculation 58 ml/min; Estimated Glomerular Filt Rate > 60; Glucose 102 mg/dL (65-110); Potassium 4.6 mmol/L (3.4-5.0); Sodium 140 mmol/L (137-145)
[2023-08-18] MEDS: rOPINIRole HCL 1 MG TABLET PO ×3 (06:33→21:38)
[2023-08-18] MEDS: CHOLECALCIFEROL 1,000 UNITS TABLET 2000 UNITS PO (08:48)
[2023-08-18] MEDS: GABAPENTIN 300 MG CAPSULE PO ×3 (08:49→17:26)
[2023-08-18] MEDS: cefTRIAXone 2 GM/NS 100 ML 2 GM/100 ML BAG IVPB (08:49)
[2023-08-18] MEDS: LOPERAMIDE HCL 2 MG CAPSULE 4 MG PO (08:49)
[2023-08-18] MEDS: SERTRALINE HCL 50 MG TABLET 100 MG PO (08:49)
[2023-08-18] MEDS: IPRATROPIUM 0.5 MG/ALBUTEROL SULFATE 2.5 MG AMPUL.NEB 3 ML INHALATION ×3 (09:00→19:40)
--- NOTE | 2023-08-18 13:21 | PM.IMPN ---
Progress Note: A&P Assessment and Plan (1) Hypotension: Qualifiers: Hypotension type: unspecified hypotension type Qualified Code(s): I95.9 - Hypotension, unspecified Code(s): I95.9 - Hypotension, unspecified Status: Acute Assessment and Plan: # HoTN - Patient noted to have low blood pressure on admission and again 08/15. This appears to be a chronic intermittent issue that her psychiatry instructor is aware of. Etiology unclear. She is asymptomatic. She has a cough that is nonproductive. CXR showing mild atelectasis. Electrolytes stable. Hemoglobin is stable so doubt that this is related to acute blood loss. UA consistent with UTI but UCx showing contaminanted sample. Still could be UTI given her symptoms. Repeat UCx not helpful since on abx. She was given a fluid bolus on 08/15 and her empagliflozin, Entresto, Lasix and Lopressor were held. BP better and low end of normal. Will resume home mds as BP allows. Try to add back low dose metoprolol today (2) Frequent falls: Code(s): R29.6 - Repeated falls Status: Acute Assessment and Plan: # Recurrent falls with facial trauma - Etiology unclear on why she is falling but could be related to transient HoTN. Denies alcohol and drug use. no Benadryl.Alcohol and UDS negative. She is working with PT/OT. SNF placement being arranged but she feels more steady on her feet. (3) Periorbital hematoma of both eyes: Code(s): H05.233 - Hemorrhage of bilateral orbit Status: Acute Assessment and Plan: # Bilateral periorbital hematoma -Related to the falls. CT brain showing normal agng brain. Head/C-spine/facial CT showing no fracture but severe cervical spondylosis and hematoma involving the left neck and superior mediastinum. Hgb normally low in the 11 range. Hgb 9.9 on admission and stable. Appears bleeding has stopped. Resume rivaroxaban. Follow hgb (4) Physical deconditioning: Code(s): R53.81 - Other malaise Status: Acute Assessment and Plan: # Physical deconditioning -Continue PT/OT (5) Hematoma and contusion: Code(s): T14.8XXA - Other injury of unspecified body region, initial encounter Status: Acute Assessment and Plan: # Hematoma - CT neck showing hematoma of the left neck and superior mediastinum. CT chest showing fat stranding in the left supraclavicular region and superior mediastinum likely hematoma. Stable. Will resume Xarelto and monitor (6) Thrombocytopenia: Code(s): D69.6 - Thrombocytopenia, unspecified Status: Acute Assessment and Plan: # Thrombocytopenia - chronic and noted back in 2020. Plt count 127K but dropped to 90K range probably from consumption. Plt count better now at 120K. Follow. (7) Anemia: Code(s): D64.9 - Anemia, unspecified Status: Acute Assessment and Plan: Patient with acute on chronic anemia. She has baseline Hgb of 11. Acute blood loss anemia from acute blood loss. Hgb in the 9 range and stable. Recent B12 normal. Will resume xarleto. Check iron studies Monitor. (8) Chronic respiratory failure with hypoxia: Code(s): J96.11 - Chronic respiratory failure with hypoxia Status: Acute Assessment and Plan: # Chronic respiratory failure - stable on home oxygen (9) Atrial fibrillation: Qualifiers: Atrial fibrillation type: unspecified chronic Qualified Code(s): I48.20 - Chronic atrial fibrillation, unspecified Code(s): I48.91 - Unspecified atrial fibrillation Status: Acute Assessment and Plan: HRoverall stable. Holding Lopressor as above. Hgb stable. Resume low dose metoprolol. . (10) COPD with emphysema: Qualifiers: Emphysema type: unspecified Qualified Code(s): J43.9 - Emphysema, unspecified Code(s): J43.9 - Emphysema, unspecified Status: Acute Assessment and Plan: Nebs not helping per pa
[2023-08-18] MEDS: RIVAROXABAN 20 MG TABLET PO (17:26)
[2023-08-18] MEDS: PRAMIPEXOLE 1 MG TABLET PO (20:45)
[2023-08-18] MEDS: METOPROLOL TARTRATE 25 MG TABLET PO (20:46)
[2023-08-19] VITALS (14 sets, daily range): BP systolic 106–122; BP diastolic 62–90; PULSE 88–121; RESP 14–20; TEMP 36.7–36.8; O2SAT 90–98
[2023-08-19 05:23] LABS: Hematocrit 30.9 % (37.0-47.0); Hemoglobin 9.4 g/dL (12.0-15.0); Immature Platelet Fraction Pct 7.7 % (0.9-11.2); Mean Corpuscular HGB Conc 30.4 g/dl (32-36); Mean Corpuscular Hemoglobin 31.4 pg (26-34); Mean Corpuscular Volume 103.3 fl (80-100); Mean Platelet Volume 11.6 fl (7.4-10.4); Platelet Count Result 130 k/mm3 (150-375); Red Blood Count 2.99 M/mm3 (4.2-5.4); Red Cell Distribution Width 13.2 % (11.5-14.5); White Blood Count 5.5 K/mm3 (4.5-10.0)
[2023-08-19 05:48] LABS: Iron 63 ug/dL (37-170)
[2023-08-19 05:51] LABS: Anion Gap 5 mmol/L (4-12); Blood Urea Nitrogen 21 mg/dL (7-17); Carbon Dioxide 35 mmol/L (22-30); Chloride 99 mmol/L (98-107); Estimated CRCL calculation 65 ml/min; Estimated Glomerular Filt Rate > 60; Glucose 97 mg/dL (65-110); Potassium 3.9 mmol/L (3.4-5.0); Sodium 139 mmol/L (137-145)
[2023-08-19] MEDS: rOPINIRole HCL 1 MG TABLET PO ×3 (05:52→20:52)
[2023-08-19 05:58] LABS: Percent Iron Saturation 20 % (20-50)
[2023-08-19 06:57] LABS: Folic Acid > 20.0 ng/mL (2.76->20)
[2023-08-19] MEDS: IPRATROPIUM 0.5 MG/ALBUTEROL SULFATE 2.5 MG AMPUL.NEB 3 ML INHALATION ×3 (07:43→20:01)
[2023-08-19] MEDS: SERTRALINE HCL 50 MG TABLET 100 MG PO (08:42)
[2023-08-19] MEDS: GABAPENTIN 300 MG CAPSULE PO ×3 (08:42→17:14)
[2023-08-19] MEDS: CHOLECALCIFEROL 1,000 UNITS TABLET 2000 UNITS PO (08:42)
[2023-08-19] MEDS: LOPERAMIDE HCL 2 MG CAPSULE 4 MG PO (08:42)
[2023-08-19] MEDS: METOPROLOL TARTRATE 25 MG TABLET PO ×2 (08:43→20:53)
[2023-08-19] MEDS: cefTRIAXone 2 GM/NS 100 ML 2 GM/100 ML BAG IVPB (08:44)
[2023-08-19] MEDS: RIVAROXABAN 20 MG TABLET PO (17:14)
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
[2023-08-19] MEDS: levoFLOXacin 750 MG TABLET PO (17:56)
[2023-08-19] MEDS: predniSONE 20 MG TABLET 40 MG PO (17:56)
[2023-08-19] MEDS: ACETAMINOPHEN 325 MG TABLET 650 MG PO (20:52)
[2023-08-19] MEDS: FAMOTIDINE 20 MG TABLET PO (20:52)
[2023-08-19] MEDS: PRAMIPEXOLE 1 MG TABLET PO (20:53)
[2023-08-19] MEDS: SACUBITRIL/VALSARTAN 12-13 MG TABLET 1 TAB PO (20:53)
[2023-08-20] VITALS (10 sets, daily range): BP systolic 100–130; BP diastolic 59–82; PULSE 83–135; RESP 14–20; TEMP 36.7–36.8; O2SAT 91–95
[2023-08-20] MEDS: rOPINIRole HCL 1 MG TABLET PO ×2 (06:16→13:01)
[2023-08-20] MEDS: IPRATROPIUM 0.5 MG/ALBUTEROL SULFATE 2.5 MG AMPUL.NEB 3 ML INHALATION ×2 (07:00→13:05)
[2023-08-20] MEDS: levoFLOXacin 750 MG TABLET PO (08:37)
[2023-08-20] MEDS: CHOLECALCIFEROL 1,000 UNITS TABLET 2000 UNITS PO (08:38)
[2023-08-20] MEDS: SACUBITRIL/VALSARTAN 12-13 MG TABLET 1 TAB PO (08:38)
[2023-08-20] MEDS: FAMOTIDINE 20 MG TABLET PO (08:38)
[2023-08-20] MEDS: LOPERAMIDE HCL 2 MG CAPSULE 4 MG PO (08:38)
[2023-08-20] MEDS: METOPROLOL TARTRATE 25 MG TABLET PO (08:38)
[2023-08-20] MEDS: predniSONE 20 MG TABLET 40 MG PO (08:39)
[2023-08-20] MEDS: SERTRALINE HCL 50 MG TABLET 100 MG PO (08:39)
[2023-08-20] MEDS: GABAPENTIN 300 MG CAPSULE PO ×2 (08:39→13:01)
--- NOTE | 2023-08-20 08:56 | PCNWS ---
Weekly nutritional screen. Patient is tolerating current diet with adequate intake. No weight loss reported. No nutritional needs at this time.
--- NOTE | 2023-08-20 13:50 | PM.DS ---
DS: Admitting Diagnosis Discharge Date 08/20/23 Admitting Diagnosis Falls DS: Discharge Diagnosis Discharge Diagnosis (1) Hypotension: Qualifiers: Hypotension type: unspecified hypotension type Qualified Code(s): I95.9 - Hypotension, unspecified Code(s): I95.9 - Hypotension, unspecified Status: Acute (2) Frequent falls: Code(s): R29.6 - Repeated falls Status: Acute (3) Periorbital hematoma of both eyes: Code(s): H05.233 - Hemorrhage of bilateral orbit Status: Acute (4) Physical deconditioning: Code(s): R53.81 - Other malaise Status: Acute (5) Hematoma and contusion: Code(s): T14.8XXA - Other injury of unspecified body region, initial encounter Status: Acute (6) Thrombocytopenia: Code(s): D69.6 - Thrombocytopenia, unspecified Status: Acute (7) Anemia: Code(s): D64.9 - Anemia, unspecified Status: Acute (8) Chronic respiratory failure with hypoxia: Code(s): J96.11 - Chronic respiratory failure with hypoxia Status: Acute (9) Atrial fibrillation: Qualifiers: Atrial fibrillation type: unspecified chronic Qualified Code(s): I48.20 - Chronic atrial fibrillation, unspecified Code(s): I48.91 - Unspecified atrial fibrillation Status: Acute (10) COPD with emphysema: Qualifiers: Emphysema type: unspecified Qualified Code(s): J43.9 - Emphysema, unspecified Code(s): J43.9 - Emphysema, unspecified Status: Acute (11) UTI (urinary tract infection): Code(s): N39.0 - Urinary tract infection, site not specified Status: Acute DS: Summary Hospital Course Reason for hospitalization: 77yo female with chronic resp failure, AFib and alcohol abuse here for multiple falls with trauma. Please see H&P for details. Hospital Course: Patient presents with recurrent falls with facial trauma. Etiology unclear on why she is falling but could be related to transient HoTN. Denies alcohol and drug use. no Benadryl.Alcohol and UDS negative.? Bilateral periorbital hematoma -Related to the falls. CT brain showing normal aging brain. Head/C-spine/facial CT showing no fracture but severe cervical spondylosis and hematoma involving the left neck and superior mediastinum. CT chest showing fat stranding in the left supraclavicular region and superior mediastinum likely? hematoma. Hgb normally low in the 11 range. Hgb 9.9 on admission and stable.? Appears?bleeding has stopped. Able to resume rivaroxaban. Hgb remained stable in the 9 range. Patient with chronic thrombocytopenia that was noted back in 2020. Plt count 127K but dropped to 90K range probably from consumption. Plt count better now at 130K. Patient noted to have low blood pressure on admission and again 08/15.? This appears to be a chronic intermittent issue that her statistical modeler is aware of.? Etiology unclear.? She is asymptomatic.? She has a cough that is nonproductive.? CXR showing mild atelectasis. Electrolytes stable.? Hemoglobin is stable so doubt that HoTN is related to acute blood loss.? UA consistent with UTI but UCx showing contaminated sample. Still could be UTI given her symptoms. She was given a fluid bolus on 08/15? and her empagliflozin, Entresto, Lasix and Lopressor were held. BP better and able to add back low dose metoprolol and Entresto. SHe had COPD exacerbation with wheezing and productive cough. Bronchodilators started and steroids added. Abx changed to Levaquin. Symptoms improved. She worked with PT/OT.? She is doing well with therapy. She was accepted for SNF placement. She dd well and was able to be discharged on 08/20/23 Status at Discharge Cognitive/behavioral status at discharge: stable Time Spent with Patient Time attestation: Total time spent providing and/or coordinating discharge services: 36 minutes Time spent: Greater than 30 minutes Exam Narrative: AF 98.2 94 18 93% 4L
[2023-08-20 16:20] LABS: SARS-CoV-2 RNA PCR Negative (Negative)
== END 2023-08-20 16:30 | DRG 315 ==
LOC: ANHED 20:01 → ANHIMU 20:55 → ANH2MED 08-14 09:11 → ANHIMU 08-22 12:00
PROVIDERS: Internal Medicine; Nurse Practitioner Family; Admitting Provider Internal Medicine; Emergency Provider Family Medicine; PCP Family Medicine; Visit Provider Internal Medicine
DX: I95.9 Hypotension, unspecified (principal); I48.20 Chronic atrial fibrillation, unspecified; K51.90 Ulcerative colitis, unspecified, without complications; J96.11 Chronic respiratory failure with hypoxia; N39.0 Urinary tract infection, site not specified; I69.354 Hemiplegia and hemiparesis following cerebral infarction affecting left non-dominant side; J44.1 Chronic obstructive pulmonary disease with (acute) exacerbation; S05.12XA Contusion of eyeball and orbital tissues, left eye, initial encounter; S10.93XA Contusion of unspecified part of neck, initial encounter; S20.214A Contusion of middle front wall of thorax, initial encounter; S00.03XA Contusion of scalp, initial encounter; I11.0 Hypertensive heart disease with heart failure; I50.9 Heart failure, unspecified; R29.6 Repeated falls; S05.11XD Contusion of eyeball and orbital tissues, right eye, subsequent encounter; S01.111D Laceration without foreign body of right eyelid and periocular area, subsequent encounter; W06.XXXD Fall from bed, subsequent encounter; W06.XXXA Fall from bed, initial encounter; I27.20 Pulmonary hypertension, unspecified; D64.9 Anemia, unspecified; D69.6 Thrombocytopenia, unspecified; E11.42 Type 2 diabetes mellitus with diabetic polyneuropathy; E78.2 Mixed hyperlipidemia; M54.13 Radiculopathy, cervicothoracic region; R01.1 Cardiac murmur, unspecified; R53.81 Other malaise; G25.81 Restless legs syndrome; F32.A Depression, unspecified; Z11.52 Encounter for screening for COVID-19; Z96.611 Presence of right artificial shoulder joint; Z96.641 Presence of right artificial hip joint; Z91.81 History of falling; Z87.891 Personal history of nicotine dependence; Z99.81 Dependence on supplemental oxygen; Z79.01 Long term (current) use of anticoagulants
CPT/HCPCS: 36415; 70450; 70486; 71045; 71110; 71250; 72125; 80048; 80053; 80069; 80307; 81001; 82728; 82746; 83540; 83550; 83735; 84443; 85025; 85027; 85055; 85610; 85730; 87040; 87070; 87086; 87088; 87205; 87635; 94640; 97110; 97161; 97530; 99285; A9270; J0696; J2060; J7030; J7040; J7512; L0140

== ENCOUNTER 2023-11-01 11:38 | Inpatient (IN) | payer MEDICARE, SELFPAY ==
[2023-11-01] VITALS (24 sets, daily range): BP systolic 100–136; BP diastolic 62–95; PULSE 76–130; RESP 18–30; TEMP 36.8–37; O2SAT 90–100; BMI 34.0
--- NOTE | ~2023-11-01 | CT_ITS ---
EXAMINATION: CTA chest PE protocol DATE: 11/01/2023 14:50 INDICATION: Shortness of breath. TECHNIQUE: Computed tomography angiography (CTA) of the chest was performed with 100 mL Omnipaque-350 intravenous contrast timed to evaluate the pulmonary arteries. Coronal maximum intensity projection 3D-reconstructions were created by the technologist. Automated exposure control and iterative reconst ruction technique were employed. The dose-length product was 663.50 mGy-cm. COMPARISON: Chest CT 08/13/2023 FINDINGS: The lungs demonstrate a diffuse interstitial pattern. There are patchy groundglass opacitie s in the upper lobes. No pleural effusion. Cardiomegaly is present. There are coronary artery calcifi cations. No pericardial effusion. There is no pulmonary embolus. The gallbladder is distended, likely secondary to fasting. There is severe cervical and thoracic spondylosis. There is a chronic compress ion fracture of T5. IMPRESSION: 1. No pulmonary embolus. Sensitivity is mildly decreased by motion artifact. 2. Diffuse lung disease, likely moderate pulmonary edema. Reviewed, dictated and finalized at location A.
--- NOTE | ~2023-11-01 | XR_ITS ---
Clinical Indication: Shortness of breath PA and lateral views of the chest: Comparison: 08/16/2023 Findings: There is mild bibasilar haziness and interstitial prominence.. Cardiomediastinal silhouett e is within normal limits. Bones and soft tissues are unremarkable. Impression: Mild bibasilar pulmonary edema and/or chronic interstitial change. Reviewed, dictated and finalized at location . Impression: Mild bibasilar pulmonary edema and/or chronic interstitial change.
--- NOTE | 2023-11-01 11:41 | ECG_ITS ---
Test Date: 2023-11-01 11:55:31 Measurements Intervals [place] Rate: 85 P: 0 IA: 0 QRS: -20 QRSD: 97 T: 0 QT: 357 QTc: 427 Interpretive Statements ATRIAL FIBRILLATION LOW QRS VOLTAGE IN PRECORDIAL LEADS [QRS DEFLECTION < 1.0 mV IN CHEST LEADS] POOR R-WAVE PROGRESSION CANNOT RULE OUT PREVIOUS INFERIOR IA ABNORMAL ECG ] No previous ECG available for comparison Electronically Signed On 11-01-2023 15:05:15 CDT by Juan David Khan M.D.
--- NOTE | 2023-11-01 12:06 | ED.SOB ---
HPI - SOB/Dyspnea General Chief Complaint: Shortness of Breath/Dyspnea <Dash Bedoya PA-C - Last Filed: 11/01/23 17:41> Stated Complaint: chf exacerbation <ZOHREH Dye Last Filed: 11/01/23 17:41> Time Seen by Provider: 11/01/23 11:47 <Dash Bedoya PA-C - Last Filed: 11/01/23 17:41> Source: patient <ZOHREH Dye Last Filed: 11/01/23 17:41> Mode of arrival: ambulatory <ZOHREH Dye Last Filed: 11/01/23 17:41> Limitations: no limitations <ZOHREH Dye Last Filed: 11/01/23 17:41> History of Present Illness HPI Narrative: This is a 77-year-old female with PMH of CKD, CHF, COPD, AFib, CAD who presents to the ED after see PCP today for chief complaint of shortness of breath and lower leg swelling. Patient reports that she has been on Lasix p.r.n. and has using her Lasix 40 mg for the past 2 weeks. States the leg swelling has moderately improved but she is still feeling very short of breath. She is not using her daily inhalers that she has been prescribed for COPD. She states that she wears 4 L NC O2 15/10 and has not had increased requirement. denies fevers, chills, cough, chest pain, abdominal pain, leg pain, palpitations, syncope. <ZOHREH Dye Last Filed: 11/01/23 17:41> Related Data Home Medications: Home Medications Medication Instructions Recorded Confirmed furosemide 40 mg tablet (Lasix) 40 mg PO DAILY 08/12/23 11/01/23 loperamide 2 mg capsule 4 mg PO DAILY 08/12/23 11/01/23 (Anti-Diarrheal (loperamide)) rivaroxaban 20 mg tablet 20 mg PO DAILY 08/12/23 11/01/23 rosuvastatin 20 mg tablet 20 mg PO DAILY 09/19/23 11/01/23 folic acid 1 mg tablet 1 mg PO DAILY 11/01/23 11/01/23 metoprolol tartrate 25 mg tablet 100 mg PO Q12HR 11/01/23 11/01/23 potassium chloride 10 mEq 20 meq PO BID 11/01/23 11/01/23 tablet,extended release sacubitril 24 mg-valsartan 26 mg 1 tablet PO Q12HR 11/01/23 11/01/23 tablet (Entresto) <Dash Bedoya PA-C - Last Filed: 11/01/23 17:41> Allergies/Adverse Reactions: Allergies Allergy/AdvReac Type Severity Reaction Status Date / Time Penicillins Allergy Mild Rash Verified 11/01/23 12:13 thiopental [From Pentothal] AdvReac Intermediate Nausea and Verified 11/01/23 12:13 Vomiting <Dash Bedoya PA-C - Last Filed: 11/01/23 17:41> Review of Systems Review of Systems: All systems as dictated in HPI <Dash Bedoya PA-C - Last Filed: 11/01/23 17:41> [facility] Past Medical History Medical History: Medical History Acute exacerbation of CHF (congestive heart failure) Acute kidney injury superimposed on CKD Acute on chronic respiratory failure with hypoxia and hypercapnia Acute respiratory failure Alcohol abuse Alcohol dependence Atrial fibrillation Azotemia Cervical disc disorder with radiculopathy of cervicothoracic region CHF exacerbation Chronic depression Chronic respiratory failure with hypoxia Contusion of face COVID-19 Elevated troponin level Hematoma and contusion Hyperglycemia Hypertensive urgency Hypotension Left shoulder pain Lung nodules 09/2018: stable R apex nodule/ multiple other nodules/emphysema LDCT: stable Mixed hyperlipidemia Murmur, cardiac Nicotine dependence, unspecified, in remission 40 pack year/ quit 2009 LDCT emphysema, multiple nodules NSTEMI (non-ST elevated myocardial infarction) Periorbital hematoma of both eyes Peripheral neuropathy Postmenopausal Primary osteoarthritis of right hip Pulmonary hypertension Restless leg syndrome Ulcerative colitis 2018 colonoscopy negative (cologuard +). UTI (urinary tract infection) <Dash Bedoya PA-C - Last Filed: 11/01/23 17:41> Surgical History Surgical History: Surgical History History of appendectomy History of carpal tunnel surgery of left wrist (03/02/20) History of hysterectomy History of total replacement of right shoulder joint History of total right hip arthroplasty <ZOHREH Dye Last Filed: 11/01/23 17:41> Family History Family History: Family History Mother Family history of osteoporosis Family history of mental disorder Family history of anemia Family history of arthritis Family history of malignant neoplasm Family history of Alzheimer's disease Patient's mother is Sibling Family history of malignant neoplasm of uterus Family history of malignant neoplasm of cervix Patient's sister is Daughter Crohn disease Other Cerebrovascular accident Family history of cardiovascular disease Family history of glaucoma <Dash Bedoya PA-C - Last Filed: 11/01/23 17:41> Social History Social History: Social History Social History: Surrogate decision maker: Shantal Pnod, daughter. Code status: Full code. Smoking packs per day: 1 Smoking cigarettes per day: 20.0 Years smoked: 50 Smoking pack-years: 50.00 Smoking status: Former smoker Tobacco type: cigarettes Smoking end date: 03/25/03 Alcohol intake: former Substance use: never Substance use type: does not use Do You Feel Safe in your Home?: Yes Lack of Transportation: No Lack of Food: Never True Current Housing: I Have Housing Concerned About Future Housing: No Difficulty Paying Gas/Electric Bills: No Difficulty Paying for Meds: No Currently Unemployed: No Education: High School Diploma/GED Difficulty w/ Childcare or Family Care: No Living arrangements: alone Additional living arrangements comments: The patient lives in her own home in [place]. Additional occupation/education comments: Retired. Spiritual care concerns: No <ZOHREH Dye Last Filed: 11/01/23 17:41> Exam Narrative: GENERAL: Well-appearing, well-nourished, and in no acute distress. HEAD: Normocephalic, atraumatic. EYES: PERRLA and EOMI. ENT: Nares clear, no rhinorrhea or epistaxis. Mucous membranes moist. Oropharynx without tonsillar hypertrophy exudate or other lesions. NECK: Supple. No adenopathy or masses. CHEST: No respiratory distress. Faint wheezes heard diffusely. Saturating 95% 4 L nasal cannula. HEART: Regular rate and rhythm. No murmur heard. Normal peripheral pulses. ABDOMEN: Soft, nontender, nondistended, normal active bowel sounds. MSK: Mild bilateral lower leg swelling. Minimal pitting edema. No calf tenderness bilaterally. SKIN: Warm, dry, no rash. NEURO: Alert and oriented x4. No focal deficits. PSYCH: Normal mood and affect. <Dash Bedoya PA-C - Last Filed: 11/01/23 17:41> Course COORDINATING PRODUCER/PA Physician Supervision Patient's HPI, Exam, and MDM were reviewed and I agreed with the workup and disposition done in the emergency department by the MLP. I went and evaluated the patient myself and she did seem to be improved after BiPAP initiation. IV diuretics were initiated she was urinating well without issue. Her atrial fibrillation was now rate controlled and was stable for admission. <Olman Ibarra MD - Last Filed: 11/01/23 23:15> Reevaluation(s) Reevaluation #1: Was earlier alerted that patient is becoming more more somnolent. ABG was repeated and looks about the same as earlier VBG. BiPAP was ordered and she is doing well on BiPAP. mental status fully intact. <Dash Bedoya PA-C - Last Filed: 11/01/23 17:41> Date: 11/01/23 <Dash Bedoya PA-C - Last Filed: 11/01/23 17:41> Time: 17:27 <Dash Bedoya PA-C - Last Filed: 11/01/23 17:41> Vital Signs Vital signs: Vital Signs Temperature 36.8 C 11/01/23 11:47 Pulse Rate 88 11/01/23 11:47 Respiratory Rate 22 H 11/01/23 11:47 Blood Pressure 119/84 11/01/23 11:47 Pulse Oximetry 96 11/01/23 11:47 Oxygen Delivery Nasal Cannula 11/01/23 11:47 Oxygen Flow Rate 4 11/01/23 11:47 Temperature 37.0 C 11/01/23 20:14 Pulse Rate 104 H 11/01/23 22:31 Respiratory Rate 20 11/01/23 21:10 Blood Pressure 133/68 11/01/23 20:14 Pulse Oximetry 100 11/01/23 21:10 Oxygen Delivery Nasal Cannula 11/01/23 21:10 Oxygen Flow Rate 4 11/01/23 21:10 <Dash Bedoya PA-C - Last Filed: 11/01/23 17:41> Vital Signs Temperature 36.8 C 11/01/23 11:47 Pulse Rate 88 11/01/23 11:47 Respiratory Rate 22 H 11/01/23 11:47 Blood Pressure 119/84 11/01/23 11:47 Pulse Oximetry 96 11/01/23 11:47 Oxygen Delivery Nasal Cannula 11/01/23 11:47 Oxygen Flow Rate 4 11/01/23 11:47 Temperature 37.0 C 11/01/23 20:14 Pulse Rate 104 H 11/01/23 22:31 Respiratory Rate 20 11/01/23 21:10 Blood Pressure 133/68 11/01/23 20:14 Pulse Oximetry 100 11/01/23 21:10 Oxygen Delivery Nasal Cannula 11/01/23 21:10 Oxygen Flow Rate 4 11/01/23 21:10 <Olman Ibarra MD - Last Filed: 11/01/23 23:15> MDM - SOB/Dyspnea MDM Narrative Medical decision making narrative: This is a 77-year-old female who presents to the ED for chief complaint of shortness of breath and leg swelling over the past few days. Vitals are normal initially. she is maintaining good oxygen saturations on 4 L nasal cannula which is her baseline. No respiratory distress. EKG shows AFib rate controlled initially. lab work is remarkable for a little bit of CO2 retention but nothing severe. BNP 4210 which is actually decreased from previous measures. Troponin normal. CXR: Impression: Mild bibasilar pulmonary edema and/or chronic interstitial change.. D-dimer elevated so chest CT ordered. CTA PE: IMPRESSION: 1. No pulmonary embolus. Sensitivity is mildly decreased by motion artifact. 2. Diffuse lung disease, likely moderate pulmonary edema.. During the course of patient's stay she started to become a little bit more tachycardic. Some of this was expected with hour long breathing treatment. She was given initial 40 of Lasix and a breathing treatment and Solu-Medrol. Symptomatically she is reporting feeling a little better with these meds. consulted cardiology COORDINATING PRODUCER, Brenda. we discussed options for rate versus rhythm control with the AFib RVR that is developed. Agreed on just try dose of metoprolol 25 here.. Shortly after, nursing noticed she was becoming more and more somnolent. repeat blood gases are nearly the same from previous VBG. Started on BiPAP the hand patient is doing well overall. She is mentating appropriately and fully alert. Discussed the case with patient and her daughter and we have agreed on admission to the hospital for continued diuresis. Discussed with Sonja hospitalist COORDINATING PRODUCER who agrees to admit patient to IMU under Dr. Bahena. admitted in stable condition <Dash Bedoya PA-C - Last Filed: 11/01/23 17:41> Lab Data Result diagrams: 11/01/23 12:06 11/01/23 12:07 <Dash Bedoya PA-C - Last Filed: 11/01/23 17:41> Labs: Lab Results 11/01/23 11/01/23 Range/Units 12:06 12:07 WBC 4.9 (4.5-10.0) K/mm3 RBC 3.57 L (4.2-5.4) M/mm3 Hgb 10.8 L (12.0-15.0) g/dL Hct 36.4 L (37.0-47.0) % MCV 102.0 H (80-100) fl MCH 30.3 (26-34) pg MCHC 29.7 L (32-36) g/dl RDW 13.1 (11.5-14.5) % Plt Count 135 L (150-375) k/mm3 MPV 10.8 H (7.4-10.4) fl Immature Gran % (Auto) 0.2 (0-0.5) % Neut % (Auto) 72.2 (45.5-73.1) % Lymph % (Auto) 17.1 L (18.3-44.2) % Becker % (Auto) 5.8 (2.6-8.5) % Eos % (Auto) 4.3 (0-4.4) % Baso % (Auto) 0.4 (0.2-1.2) % Lymph # (Auto) 0.83 L (0.9-3.2) K/mm3 Becker # (Auto) 0.3 (0.1-0.6) K/mm3 Eos # (Auto) 0.2 (0-0.3) K/mm3 Baso # (Auto) 0.0 (0.0-0.1) K/mm3 Abs Immat Gran (auto) 0.01 (0.00-0.031) K/mm3 Absolute Neuts (auto) 3.5 (1.3-6.7) K/mm3 Absolute Nucleated RBC 0.000 (0.0-0.012) K/mm3 Nucleated RBC % 0.0 (0.0-0.2) % % Immature Plt Fraction 6.8 (0.9-11.2) % D-Dimer 0.89 H (<0.48) ug/mL Sodium 141 (137-145) mmol/L Potassium 4.2 (3.4-5.0) mmol/L Chloride 94 L (98-107) mmol/L Carbon Dioxide > 40 H (22-30) mmol/L Anion Gap (4-12) mmol/L BUN 26 H (7-17) mg/dL Creatinine 0.70 (0.7-1.0) mg/dL Estim Creat Clear Calc Not Reportable Estimated GFR > 60 (59 - ) Glucose 92 (65-110) mg/dL Calcium 8.9 (8.4-10.2) mg/dL Total Bilirubin 2.1 H (0.2-1.3) mg/dL AST 49 H (14-36) U/L ALT 19 (6-35) U/L Alkaline Phosphatase 50 (38-126) U/L Troponin I < 0.012 (0.000-0.034) ng/mL NT-Pro-B Natriuret Pep 4210 H (19.9-100) pg/mL Total Protein 7.0 (6.3-8.2) g/dL Albumin 4.2 (3.5-5.1) g/dL <Dash Bedoya PA-C - Last Filed: 11/01/23 17:41> Lab Results 11/01/23 11/01/23 Range/Units 12:06 12:07 WBC 4.9 (4.5-10.0) K/mm3 RBC 3.57 L (4.2-5.4) M/mm3 Hgb 10.8 L (12.0-15.0) g/dL Hct 36.4 L (37.0-47.0) % MCV 102.0 H (80-100) fl MCH 30.3 (26-34) pg MCHC 29.7 L (32-36) g/dl RDW 13.1 (11.5-14.5) % Plt Count 135 L (150-375) k/mm3 MPV 10.8 H (7.4-10.4) fl Immature Gran % (Auto) 0.2 (0-0.5) % Neut % (Auto) 72.2 (45.5-73.1) % Lymph % (Auto) 17.1 L (18.3-44.2) % Becker % (Auto) 5.8 (2.6-8.5) % Eos % (Auto) 4.3 (0-4.4) % Baso % (Auto) 0.4 (0.2-1.2) % Lymph # (Auto) 0.83 L (0.9-3.2) K/mm3 Becker # (Auto) 0.3 (0.1-0.6) K/mm3 Eos # (Auto) 0.2 (0-0.3) K/mm3 Baso # (Auto) 0.0 (0.0-0.1) K/mm3 Abs Immat Gran (auto) 0.01 (0.00-0.031) K/mm3 Absolute Neuts (auto) 3.5 (1.3-6.7) K/mm3 Absolute Nucleated RBC 0.000 (0.0-0.012) K/mm3 Nucleated RBC % 0.0 (0.0-0.2) % % Immature Plt Fraction 6.8 (0.9-11.2) % D-Dimer 0.89 H (<0.48) ug/mL Sodium 141 (137-145) mmol/L Potassium 4.2 (3.4-5.0) mmol/L Chloride 94 L (98-107) mmol/L Carbon Dioxide > 40 H (22-30) mmol/L Anion Gap (4-12) mmol/L BUN 26 H (7-17) mg/dL Creatinine 0.70 (0.7-1.0) mg/dL Estim Creat Clear Calc Not Reportable Estimated GFR > 60 (59 - ) Glucose 92 (65-110) mg/dL Calcium 8.9 (8.4-10.2) mg/dL Total Bilirubin 2.1 H (0.2-1.3) mg/dL AST 49 H (14-36) U/L ALT 19 (6-35) U/L Alkaline Phosphatase 50 (38-126) U/L Troponin I < 0.012 (0.000-0.034) ng/mL NT-Pro-B Natriuret Pep 4210 H (19.9-100) pg/mL Total Protein 7.0 (6.3-8.2) g/dL Albumin 4.2 (3.5-5.1) g/dL <Olman Ibarra MD - Last Filed: 11/01/23 23:15> ABG Data ABG results: 11/01/23 11/01/23 13: 16:56 Puncture Site Right radial ABG pH 7.369 ABG pCO2 57.5 H ABG pO2 59.1 L ABG PO2/FiO2 Ratio 1.64 ABG HCO3 32.4 H ABG O2 Saturation 89.3 L ABG O2 Content 14.5 L ABG Base Excess 5.8 VBG pH 7.351 VBG pCO2 60.9 H VBG pO2 89.4 H VBG HCO3 32.9 H A-a Gradient 130.9 Oxyhemoglobin 90.1 Total Hemoglobin 11.4 L O2 Delivery Device Nasal cannula Nasal cannula O2 Liters/Min 4.0 4.0 FiO2 36 36 <Dash Bedoya PA-C - Last Filed: 11/01/23 17:41> 11/01/23 11/01/23 13: 16:56 Puncture Site Right radial ABG pH 7.369 ABG pCO2 57.5 H ABG pO2 59.1 L ABG PO2/FiO2 Ratio 1.64 ABG HCO3 32.4 H ABG O2 Saturation 89.3 L ABG O2 Content 14.5 L ABG Base Excess 5.8 VBG pH 7.351 VBG pCO2 60.9 H VBG pO2 89.4 H VBG HCO3 32.9 H A-a Gradient 130.9 Oxyhemoglobin 90.1 Total Hemoglobin 11.4 L O2 Delivery Device Nasal cannula Nasal cannula O2 Liters/Min 4.0 4.0 FiO2 36 36 <Olman Ibarra MD - Last Filed: 11/01/23 23:15> ECG Data EKG #1: ECG completion date: 11/01/23 <Dash Bedoya PA-C - Last Filed: 11/01/23 17:41> ECG completion time: 11:55 <Dash Bedoya PA-C - Last Filed: 11/01/23 17:41> Prior ECG tracings: not available for review <Dash Bedoya PA-C - Last Filed: 11/01/23 17:41> Interpretation: atrial fibrillation Rate 85 Normal QRS Normal QTC No acute ischemic findings <Dash Bedoya PA-C - Last Filed: 11/01/23 17:41> EKG #2: ECG completion date: 11/01/23 <Dash Bedoya PA-C - Last Filed: 11/01/23 17:41> ECG completion time: 15:30 <ANA DyeC - Last Filed: 11/01/23 17:41> Prior ECG tracings: available for review <Dash Bedoya PA-C - Last Filed: 11/01/23 17:41> Interpretation: atrial fibrillation with RVR Rate 112 Normal QRS slightly prolonged QTC No acute ischemic findings <Dash Bedoya PA-C - Last Filed: 11/01/23 17:41> Critical Care Time Critical Care Time Critical Care Time: Yes <Dash Bedoya PA-C - Last Filed: 11/01/23 17:41> Total Critical Care Time: 35 <Dash Bedoya PA-C - Last Filed: 11/01/23 17:41> Discharge Plan Discharge Clinical Impression: Pulmonary edema, Atrial fibrillation with RVR <Dash Bedoya PA-C - Last Filed: 11/01/23 17:41> Patient Disposition: Still a Patient <Dash Bedoya PA-C - Last Filed: 11/01/23 17:41> Condition: Stable <ZOHREH Dye Last Filed: 11/01/23 17:41>
[2023-11-01] MEDS: methylPREDNISolone SOD SUCC 125 MG VIAL IV PUSH (12:13)
[2023-11-01 12:19] LABS: Basophils Percent Auto 0.4 % (0.2-1.2); Eosinophils Absolute Auto 0.2 K/mm3 (0-0.3); Eosinophils Percent Auto 4.3 % (0-4.4); Hematocrit 36.4 % (37.0-47.0); Hemoglobin 10.8 g/dL (12.0-15.0); Immature Granulocyte Absolute 0.01 K/mm3 (0.00-0.031); Immature Granulocyte Percent A 0.2 % (0-0.5); Immature Platelet Fraction Pct 6.8 % (0.9-11.2); Lymphocytes Absolute Auto 0.83 K/mm3 (0.9-3.2); Lymphocytes Percent Auto 17.1 % (18.3-44.2); Mean Corpuscular HGB Conc 29.7 g/dl (32-36); Mean Corpuscular Hemoglobin 30.3 pg (26-34); Mean Platelet Volume 10.8 fl (7.4-10.4); Monocytes Absolute Auto 0.3 K/mm3 (0.1-0.6); Monocytes Percent Auto 5.8 % (2.6-8.5); Neutrophils Absolute Auto 3.5 K/mm3 (1.3-6.7); Neutrophils Percent Auto 72.2 % (45.5-73.1); Platelet Count Result 135 k/mm3 (150-375); Red Blood Count 3.57 M/mm3 (4.2-5.4); Red Cell Distribution Width 13.1 % (11.5-14.5); White Blood Count 4.9 K/mm3 (4.5-10.0)
--- NOTE | 2023-11-01 12:19 | PCRCNOTE ---
Pt taken to CAT SCAN, respiratory treatment delayed
[2023-11-01] MEDS: IPRATROPIUM BR 0.02% INH SOLN 0.5 MG/2.5 ML VIAL 1 MG INHALATION (12:30)
[2023-11-01] MEDS: ALBUTEROL SULFATE NEB 2.5 MG/3 ML INH 10 MG INHALATION (12:30)
[2023-11-01 12:35] LABS: Alanine Aminotransferase 19 U/L (6-35); Albumin Level 4.2 g/dL (3.5-5.1); Alkaline Phosphatase 50 U/L (38-126); Aspartate Amino Transferase 49 U/L (14-36); Bilirubin,Total 2.1 mg/dL (0.2-1.3); Blood Urea Nitrogen 26 mg/dL (7-17); Calcium 8.9 mg/dL (8.4-10.2); Carbon Dioxide > 40 mmol/L (22-30); Chloride 94 mmol/L (98-107); Estimated Glomerular Filt Rate > 60; Glucose 92 mg/dL (65-110); Potassium 4.2 mmol/L (3.4-5.0); Sodium 141 mmol/L (137-145)
[2023-11-01 12:41] LABS: D Dimer 0.89 ug/mL (<0.48)
[2023-11-01 12:44] LABS: NT Pro B Type Natriuretic Pept 4210 pg/mL (19.9-100); Troponin I < 0.012 ng/mL (0.000-0.034)
[2023-11-01] MEDS: FUROSEMIDE INJ 40 MG/4 ML VIAL IV PUSH ×2 (13:00→18:14)
[2023-11-01 13:15] LABS: Fractional Inspired Oxygen 36 %; HCO3 VBG 32.9 mEq/l (24.0-30.0); PCO2 VBG 60.9 mmHg (42.0-48.0); PO2 VBG 89.4 mmHg (35.0-45.0); pH VBG 7.351 (7.300-7.400)
[2023-11-01 13:17] LABS: Device NASAL CANNULA
--- NOTE | 2023-11-01 15:27 | ECG_ITS ---
Test Date: 2023-11-01 15:30:44 Measurements Intervals Villanueva Rate: 112 P: 0 LA: 0 QRS: 31 QRSD: 99 T: 37 QT: 355 QTc: 486 Interpretive Statements ATRIAL FIBRILLATION WITH RAPID VENTRICULAR RESPONSE LOW QRS VOLTAGE IN PRECORDIAL LEADS [QRS DEFLECTION < 1.0 mV IN CHEST LEADS] POSSIBLE ANTERIOR MYOCARDIAL INFARCTION , OF INDETERMINATE AGE [30 ms Q WAVE IN V3/V4, OR R < 0.2 mV IN V4] POSSIBLE INFERIOR MYOCARDIAL INFARCTION , PROBABLY OLD [30 ms Q WAVE IN II/aVF] Compared to ECG 11/01/2023 11:55:31 NO CHANGE SINCE PREVIOUS ECG Electronically Signed On 11-03-2023 13:20:18 CDT by Johnathan Ornelas M.D.
--- NOTE | 2023-11-01 16:46 | PC.NURSE ---
Patient becoming more lethargic and it is becoming harder to wake her. Provider aware and orders placed for ABG.
[2023-11-01 16:58] LABS: Alveolar/Arterial O2 Gradient 130.9 mmHg; Base Excess ABG 5.8 mEq/l (+/-2.0); Fractional Inspired Oxygen 36 %; HCO3 ABG 32.4 mEq/l (22.0-26.0); Oxygen Content ABG 14.5 %vol (16.0-22.0); Oxygen Saturation ABG 89.3 % (95.0-100.0); Oxyhemoglobin 90.1 % THb (90.0-100.0); PCO2 ABG 57.5 mmHg (35.0-45.0); PO2 ABG 59.1 mmHg (80.0-100.0); PO2 FiO2 Ratio Arterial Blood 1.64 %; Total Hemoglobin 11.4 g/dL (12.0-18.0); pH ABG 7.369 (7.350-7.450)
[2023-11-01 16:59] LABS: Device NASAL CANNULA; Modified Allen's Test Pass; Site Drawn RIGHT RADIAL
--- NOTE | 2023-11-01 18:03 | PM.IMHP ---
H&P: HPI History of Present Illness Date/Time: 11/01/23 18:03 Chief Complaint: Shortness of Breath, Lower Extremity Swelling Narrative: 77 y/o F presents here with shortness of breath and lower extremity swelling with PMH of CHF, CKD, atrial fibrillation, chronic respiratory failure with hypoxia on supplemental O2, NSTEMI, RLS, ulcerative colitis, and pulmonary hypertension. The patient presents here from [facility] for further evaluation of shortness of breath, bilateral lower extremity swelling, and 10 lb of weight gain. Patient has history of congestive heart failure and is on Lasix. She reports she has been taking Lasix twice daily for a few months now without improvement. Reports a few weeks ago she started taking it just once daily at the direction of of her PCP. However review of PCP record on 09/17 shows that patient has been off diuretic for now due to episodes of low blood pressure and falls. Patient also had office visit today where provider reported the patient has been on Lasix for the past 2 weeks p.r.n. with start date of 10/14. Unclear what true dosing of Lasix has been at home. Patient has baseline O2 requirement of 4 L NC, arrived 96% on baseline requirement. Reporting no other accompanying symptoms with the shortness of breath. Denying chest pain, diaphoresis, nausea, cough, fever, chills or body aches. Initial VS at presentation: 98.3? F, HR 88, RR 22, 119/84, and 96% on 4L NC. ED workup showed: No leukocytosis, hemoglobin 10.8 (near baseline), elevated D-dimer, creatinine 0.7 and GFR >60, BNP 4210. CXR showed mild bibasilar pulmonary edema and/or chronic interstitial change. Chest CTA showed no PE and diffuse lung disease likely moderate pulmonary edema. Review of Systems Review of Systems: All systems reviewed & are unremarkable except as noted in HPI and below [facility] Past Medical History Medical History Acute exacerbation of CHF (congestive heart failure) Acute kidney injury superimposed on CKD Acute on chronic respiratory failure with hypoxia and hypercapnia Acute respiratory failure Alcohol abuse Alcohol dependence Atrial fibrillation Azotemia Cervical disc disorder with radiculopathy of cervicothoracic region CHF exacerbation Chronic depression Chronic respiratory failure with hypoxia Contusion of face COVID-19 Elevated troponin level Hematoma and contusion Hyperglycemia Hypertensive urgency Hypotension Left shoulder pain Lung nodules 09/2018: stable R apex nodule/ multiple other nodules/emphysema LDCT: stable Mixed hyperlipidemia Murmur, cardiac Nicotine dependence, unspecified, in remission 40 pack year/ quit 2009 LDCT emphysema, multiple nodules NSTEMI (non-ST elevated myocardial infarction) Periorbital hematoma of both eyes Peripheral neuropathy Postmenopausal Primary osteoarthritis of right hip Pulmonary hypertension Restless leg syndrome Ulcerative colitis 2018 colonoscopy negative (cologuard +). UTI (urinary tract infection) Surgical History Surgical History History of appendectomy History of carpal tunnel surgery of left wrist (03/02/20) History of hysterectomy History of total replacement of right shoulder joint History of total right hip arthroplasty Family History Family History Mother Family history of osteoporosis Family history of mental disorder Family history of anemia Family history of arthritis Family history of malignant neoplasm Family history of Alzheimer's disease Patient's mother is Sibling Family history of malignant neoplasm of uterus Family history of malignant neoplasm of cervix Patient's sister is Daughter Crohn disease Other Cerebrovascular accident Family history of cardiovascular disease Family history of glaucoma Social History Social History Social History: Surrogate decision maker: Shantal Pond, daughter. Code status: Full code. Smoking packs per day: 1 Smoking cigarettes per day: 20.0 Years smoked: 50 Smoking pack-years: 50.00 Smoking status: Former smoker Tobacco type: cigarettes Smoking end date: 03/25/03 Alcohol intake: former Substance use: never Substance use type: does not use Do You Feel Safe in your Home?: Yes Lack of Transportation: No Lack of Food: Never True Current Housing: I Have Housing Concerned About Future Housing: No Difficulty Paying Gas/Electric Bills: No Difficulty Paying for Meds: No Currently Unemployed: No Education: High School Diploma/GED Difficulty w/ Childcare or Family Care: No Living arrangements: alone Additional living arrangements comments: The patient lives in her own home in [place]. Additional occupation/education comments: Retired. Spiritual care concerns: No Meds Home Medications and Allergies Home Medications Medication Instructions Recorded Confirmed Type nebulizers #1 ea 02/25/23 11/01/23 Rx albuterol sulfate 2.5 mg/3 mL 2.5 mg (3 mL) inhalation BID PRN 03/04/23 11/01/23 Rx (0.083 %) solution for nebulization Shortness Of Breath #90 mL furosemide 40 mg tablet (Lasix) 40 mg PO DAILY 08/12/23 11/01/23 History loperamide 2 mg capsule 4 mg PO DAILY 08/12/23 11/01/23 History (Anti-Diarrheal (loperamide)) rivaroxaban 20 mg tablet 20 mg PO DAILY 08/12/23 11/01/23 History acetaminophen 325 mg tablet 650 mg PO Q4H PRN Mild Pain (1-3) 08/20/23 11/01/23 Rx Or Fever #30 tabs famotidine 20 mg tablet 20 mg PO Q12HR #30 tabs 08/20/23 11/01/23 Rx ipratropium 0.5 mg-albuterol 3 mg 3 ml inhalation [id number] #90 mL 08/20/23 11/01/23 Rx (2.5 mg base)/3 mL nebulization soln sertraline 100 mg tablet 100 mg PO QAM #90 tabs 08/20/23 11/01/23 Rx Ozempic 0.25 mg or 0.5 mg (2 mg/3 0.5 mg (0.736 mL) subcut WEEKLY #3 09/18/23 11/01/23 Rx mL) subcutaneous pen injector mL (semaglutide) balsalazide 750 mg capsule See Rx Instructions .Route 09/19/23 11/01/23 Rx .COMPLEX #270 caps rosuvastatin 20 mg tablet 20 mg PO DAILY 09/19/23 11/01/23 History gabapentin 300 mg capsule 300 mg PO TID #90 caps 10/15/23 11/01/23 Rx cyanocobalamin (vitamin B-12) 1,000 mcg PO QAM 90 days #90 tabs 10/22/23 11/01/23 Rx 1,000 mcg tablet (Vitamin B-12) ropinirole 0.5 mg tablet 0.5 mg PO TID #270 tabs 10/28/23 11/01/23 Rx folic acid 1 mg tablet 1 mg PO DAILY 11/01/23 11/01/23 History metoprolol tartrate 25 mg tablet 100 mg PO Q12HR 11/01/23 11/01/23 History potassium chloride 10 mEq 20 meq PO BID 11/01/23 11/01/23 History tablet,extended release sacubitril 24 mg-valsartan 26 mg 1 tablet PO Q12HR 11/01/23 11/01/23 History tablet (Entresto) Allergies Allergy/AdvReac Type Severity Reaction Status Date / Time Penicillins Allergy Mild Rash Verified 11/01/23 12:13 thiopental [From Pentothal] AdvReac Intermediate Nausea and Verified 11/01/23 12:13 Vomiting Vital Signs Vital Signs - 24 hr 11/01/23 11:47 11/01/23 11:57 11/01/23 11:58 Temperature 98.3 F Pulse Rate 88 88 Respiratory Rate 22 H 25 H Blood Pressure 119/84 119/84 Pulse Oximetry 96 99 100 Oxygen Delivery Nasal Cannula Nasal Cannula Oxygen Flow Rate 4 4 11/01/23 13:03 11/01/23 12:27 11/01/23 13:59 Temperature Pulse Rate 100 82 76 Respiratory Rate 19 20 20 Blood Pressure 122/82 Pulse Oximetry 100 Oxygen Delivery Oxygen Flow Rate 11/01/23 11:49 11/01/23 12:01 11/01/23 12:31 Temperature Pulse Rate 89 88 Respiratory Rate 22 H 21 H 18 Blood Pressure 119/84 130/79 Pulse Oximetry 95 100 98 Oxygen Delivery Oxygen Flow Rate 11/01/23 13:04 11/01/23 14:26 11/01/23 15:08 Temperature Pulse Rate 99 111 H 120 H Respiratory Rate 18 20 20 Blood Pressure 122/82 118/95 H 108/62 Pulse Oximetry 99 91 Oxygen Delivery Oxygen Flow Rate 11/01/23 15:30 11/01/23 16:22 11/01/23 17:06 Temperature Pulse Rate 130 H 114 H 120 H Respiratory Rate 21 H 20 21 H Blood Pressure 100/67 Pulse Oximetry 90 93 96 Oxygen Delivery BiPAP Oxygen Flow Rate Exam Const: General: comfortable and no acute distress Other: , female, elderly, nontoxic appearance HENMT: Face/Nose/Sinus: Normal nares present Mouth: Yes moist mucous membranes Other: NC in place Eyes: General: appearance normal, both eyes and all related structures Sclera: sclerae normal Pupils: Equal, round and reactive pupils present EOM: EOMs intact bilaterally Resp: Effort & Inspection: normal respiratory effort Other: Diminished at bases Cardio: Rate: tachycardic Rhythm: regular rhythm Other: S1-S2 present without murmur Skin: General skin exam: normal color and no rashes or lesions noted Wounds: no wounds Neuro: Speech: normal speech Motor exam (neuro): 5/5 motor strength present throughout Sensory Exam: normal sensation Other: A&O x4 Extrem: Other: Asymmetric lower extremity swelling: LLE with 1+ edema, RLE with trace edema (chronic post-stroke, 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) Psych: Mental Status: mental status grossly normal Affect: normal affect Other: Good insight and judgment, very pleasant H&P: Results Labs Labs: Short CBC 11/01/23 Range/Units 12:06 WBC 4.9 (4.5-10.0) K/mm3 Hgb 10.8 L (12.0-15.0) g/dL Hct 36.4 L (37.0-47.0) % Plt Count 135 L (150-375) k/mm3 BMP 11/01/23 12:07 Sodium 141 Potassium 4.2 Chloride 94 L Carbon Dioxide > 40 H BUN 26 H Creatinine 0.70 Glucose 92 Calcium 8.9 Cardiac Enzymes 11/01/23 Range/Units 12:07 Troponin I < 0.012 (0.000-0.034) ng/mL Liver Function 11/01/23 Range/Units 12:07 Total Bilirubin 2.1 H (0.2-1.3) mg/dL AST 49 H (14-36) U/L ALT 19 (6-35) U/L Alkaline Phosphatase 50 (38-126) U/L Albumin 4.2 (3.5-5.1) g/dL Assessment and Plan Assessment and plan (1) Chronic HFrEF (heart failure with reduced ejection fraction): Code(s): I50.22 - Chronic systolic (congestive) heart failure Status: Acute Assessment and Plan: - CXR: Mild bibasilar pulmonary edema and/or chronic interstitial change. - CTA chest: 1. No pulmonary embolus. Sensitivity is mildly decreased by motion artifact. 2. Diffuse lung disease, likely moderate pulmonary edema. - BNP 4210 (decreased compared to priors) - most recent echo (01/2023): LV systolic function normal, estimated EF 50-55%, diastolic function indeterminate. See report for further details. - update echo - currently on: Lasix p.r.n. for the past 2 weeks per most recent PCP visit. Will transition to Lasix 40 IVP daily, given 80 of Lasix in ED. - daily weights - monitor I&Os - trend renal function (2) Atrial fibrillation with RVR: Code(s): I48.91 - Unspecified atrial fibrillation Status: Acute Assessment and Plan: - EKG, initial: AFib, rate 85, low QRS voltage in precordial leads, poor R-wave progression, cannot rule out previous inferior [place]. - EKG, repeat (1): AFib with RVR, rate 112, poor R-wave progression no longer present, mi finding still present. Awaiting formal read. - Troponin: <0.012 - on metoprolol b.i.d., will give 1 time dose of 5 mg IVP for heart rate greater than 120 and resume home dosing this evening. - cardiology consulted by ED - telemetry monitoring (3) Anemia: Code(s): D64.9 - Anemia, unspecified Status: Chronic Assessment and Plan: - hemoglobin 10.8 - previous range in the last year: 9.3-11 - monitor (4) CKD (chronic kidney disease) stage 3, GFR 30-59 ml/min: Code(s): N18.30 - Chronic kidney disease, stage 3 unspecified Status: Chronic Assessment and Plan: - creatinine 0.7 and GFR >60, at baseline - trend renal function - trend electrolytes, correct as needed (5) Benign hypertension with CKD (chronic kidney disease) stage III: Code(s): I12.9 - Hypertensive chronic kidney disease with stage 1 through stage 4 chronic kidney disease, or unspecified chronic kidney disease; N18.30 - Chronic kidney disease, stage 3 unspecified Status: Chronic Assessment and Plan: - chronic, currently 100/67 - continue home medications: Metoprolol 100 mg b.i.d. and Entresto 24-26 mg b.i.d. - monitor Plan Patient here with shortness of breath. Initially requiring BiPAP in the ED due to somnolence, now off and tolerating well. Suspected to be acute CHF exacerbation. On Lasix as needed at home for the past 2 weeks. Will start with Lasix 80 mg IVP, continue as 40 mg IVP daily. Update echo. Monitor renal function, I&Os, and daily weights. Diet: heart healthy GI Prophylaxis: not currently indicated DVT Prophylaxis: SCDs Lines: Peripheral Code Status: Full code Quality VTE Prophylaxis VTE prophylaxis: mechanical ordered Hospitalist MIPS Advance Care Plan I have confirmed that the patient's Advanced Care Plan is present, code status is documented, or surrogate decision maker is listed in patient medical record.: Yes Medication Reconciliation I have utilized all available resources to obtain, update and review the patients current medications (includes all prescriptions, OTC, herbals, cannabis, and nutritional supplements).: Yes
--- NOTE | 2023-11-01 18:29 | ADMGEN ---
This patient, Ping Waller, was admitted to IMU Room 201-01. Patient/family oriented to hospital policies and general routines including ID bracelet, bed and alarms, visiting hours, pain management, procedures, bathroom and other care routines, personal items, smoking policy, room service/diet, and visiting hours. Information on how to activate the Rapid Response Team has been discussed. Patient/Family are encouraged to report perceived risks to care and to ask questions if they do not understand what they are told or what they should do.
--- NOTE | 2023-11-01 18:43 | PC.NURSE ---
Ptient arouses to voice without issue. Staff able to direct patient without issue. patient now alert and oriented x4. Follows commands, moves all extremities. Patient requesting water. RN to update Provider on current patient.
[2023-11-01] MEDS: METOPROLOL TARTRATE INJ 5 MG/5 ML VIAL IV PUSH (19:06)
[2023-11-01 19:08] LABS: Troponin I < 0.012 ng/mL (0.000-0.034)
[2023-11-01] MEDS: METOPROLOL TARTRATE 50 MG TAB 100 MG PO (22:31)
[2023-11-01] MEDS: SACUBITRIL/VALSARTAN 24-26 MG TABLET 1 TAB PO (22:31)
[2023-11-01] MEDS: rOPINIRole HCL 0.5 MG TABLET PO (22:31)
[2023-11-01 22:47] LABS: Troponin I < 0.012 ng/mL (0.000-0.034)
[2023-11-02] VITALS (24 sets, daily range): BP systolic 108–125; BP diastolic 74–81; PULSE 63–115; RESP 16–24; TEMP 36.7–37.2; O2SAT 92–100
--- NOTE | 2023-11-02 | ECHO_ITS ---
Patient Info Name: Ping Waller Age: 77 years : 1945 Gender: Female Ht: 64 in Wt: 198 lbs BSA: 2.05 m2 HR: 94 bpm BP: 125 / 74 mmHg Heart Rhythm: Atrial Fibrillation Technical Quality: Fair Exam Date: 11/02/2023 8:34 AM Exam Location: Echo Lab Patient Status: Inpatient Admit Date: 11/01/2023 Staff Ordering Physician: Sonja Carroll APRN Fancy Stitcher: Harish Cooper RDCS Attending Provider: Maddi Bahena MD Referring Physician: Carly BONNER; Exam Type: CA echo doppler color flow Study Info Indications - CHF Hx - pulm edema - SOB Complete two-dimensional, color flow and Doppler transthoracic echocardiogram is performed. Summary 1. Complete two-dimensional, color flow and Doppler transthoracic echocardiogram is performed. 2. Mild left ventricular enlargement with mild global systolic dysfunction ejection fraction estimates about 40%. 3. Biatrial dilation left greater than right. 4. Mild mitral and tricuspid regurgitation. 5. Compared with previous echo January of 2023 patient is now in atrial fibrillation and LV systolic function is reduced. Left Ventricle Left ventricular chamber dimension is mildly enlarged. Left ventricular systolic function is mildly reduced, estimated at 40-45%. The left ventricular diastolic function is indeterminate. Right Ventricle Right ventricular chamber dimension is normal. Left Atria Left atrial chamber dimension is severely enlarged. Right Atria Right atrial chamber dimension is moderately enlarged. Aortic Valve The aortic valve is normal. Pulmonic Valve The pulmonic valve is not well visualized. Mitral Valve The mitral valve has normal leaflets. There is mild mitral valve regurgitation. Tricuspid Valve The tricuspid valve leaflets are normal. There is mild tricuspid valve regurgitation. Pericardium/Pleural The pericardium appears normal. Aorta The prox ascending aorta size is normal. Left Ventricular Outflow Tract Name Value Normal LVOT 2D LVOT Diameter 2.1 cm LVOT Doppler LVOT Peak Gradient 5 mmHg LVOT Mean Gradient 3 mmHg LVOT VTI 24 cm LVOT VTI/AV VTI Ratio 0.8 LVOT Stroke Volume 80 ml LVOT CO 7.7 l/min LVOT CI 3.8 l/min/m2 Pulmonic Valve Name Value Normal PV Doppler PV Peak Gradient 3 mmHg Mitral Valve Name Value Normal MV Doppler MV Peak Gradient 6 mmHg MV Mean Gradient 3 mmHg MV Decel [place] 829 cm/s2 MV PHT 37 ms MV Area (PHT) 5.9 cm2 4.0-5.0 MV Area (Cont Eq VTI) 4.9 cm2 MV Regurgitation Doppler MR Peak Gradient 63 mmHg MV Diastolic Function MV E Peak Velocity 106 cm/s MV A Peak Velocity 44 cm/s MV E/A 2.4 MV Decel Time 128 ms MV Annular TDI MV E/e' (Septal) 12.1 <=8.0 MV E/e' (Lateral) 11.6 <=8.0 MV E/e' (Average) 11.9 Tricuspid Valve Name Value Normal TV Regurgitation Doppler TR Peak Velocity 302 cm/s TR Peak Gradient 36 mmHg Aortic Valve Name Value Normal AV Doppler AV Peak Velocity 148 cm/s AV Peak Gradient 9 mmHg AV Mean Gradient 5 mmHg AV VTI 29 cm AV Area (Cont Eq VTI) 2.8 cm2 >=3.0 AV Area (Cont Eq Kenny) 2.6 cm2 AV Regurgitation 2D LVOT Area 3.3 cm2 Ventricles Name Value Normal LV Dimensions 2D/MM IVS Diastolic Thickness (2D) 1.0 cm 0.6-1.0 LVID Diastole (2D) 5.6 cm 3.8-5.2 LVIW Diastolic Thickness (2D) 1.1 cm 0.6-0.9 LVID Systole (2D) 4.4 cm 2.2-3.5 LVOT Diameter 2.1 cm LV Mass (2D Cubed) 241.48 g 67.00-162.00 LV Mass Index (2D Cubed) 118 g/m2 43-95 Relative Wall Thickness (2D) 0.41 LV Fractional Shortening/Ejection Fraction 2D/MM LV Fractional Shortening (2D) 22 % 27-45 LV EF (2D Teicholz) 44 % 54-74 LV Diastolic Volume (4C MOD) 115 ml LV EF (4C MOD) 48 % LV Diastolic Volume (2C MOD) 104 ml LV EF (2C MOD) 57 % LV Diastolic Volume (BP MOD) 110 ml 46-106 LV Diastolic Volume Index (BP MOD) 53 ml/m2 29-61 LV Systolic Volume (BP MOD) 52 ml 14-42 LV Systolic Volume Index (BP MOD) 26 ml/m2 8-24 LV EF (BP MOD) 52 % 54-74 LV Diastolic Length (4C) 7.7 cm LV Systolic Length (4C) 6.6 cm LV Stroke Volume (4C MOD) 56 ml Atria Name Value Normal LA Dimensions LA Volume (4C A-L) 102 ml LA Volume (BP A-L) 105 ml RA Dimensions RA Area (4C) 25.7 cm2 <=18.0 Report Signatures
[2023-11-02 04:25] LABS: Hematocrit 32.7 % (37.0-47.0); Immature Granulocyte Absolute 0.02 K/mm3 (0.00-0.031); Immature Granulocyte Percent A 0.4 % (0-0.5); Immature Platelet Fraction Pct 7.3 % (0.9-11.2); Lymphocytes Absolute Auto 0.47 K/mm3 (0.9-3.2); Lymphocytes Percent Auto 8.7 % (18.3-44.2); Mean Corpuscular HGB Conc 30.6 g/dl (32-36); Mean Corpuscular Hemoglobin 30.7 pg (26-34); Mean Corpuscular Volume 100.3 fl (80-100); Mean Platelet Volume 11.2 fl (7.4-10.4); Monocytes Absolute Auto 0.3 K/mm3 (0.1-0.6); Monocytes Percent Auto 5.4 % (2.6-8.5); Neutrophils Absolute Auto 4.6 K/mm3 (1.3-6.7); Neutrophils Percent Auto 85.5 % (45.5-73.1); Platelet Count Result 125 k/mm3 (150-375); Red Blood Count 3.26 M/mm3 (4.2-5.4); Red Cell Distribution Width 13.2 % (11.5-14.5); White Blood Count 5.4 K/mm3 (4.5-10.0)
[2023-11-02 04:37] LABS: Alanine Aminotransferase 19 U/L (6-35); Albumin Level 3.8 g/dL (3.5-5.1); Alkaline Phosphatase 43 U/L (38-126); Anion Gap 8 mmol/L (4-12); Aspartate Amino Transferase 48 U/L (14-36); Bilirubin,Total 1.5 mg/dL (0.2-1.3); Blood Urea Nitrogen 26 mg/dL (7-17); Calcium 8.5 mg/dL (8.4-10.2); Carbon Dioxide 38 mmol/L (22-30); Chloride 93 mmol/L (98-107); Estimated CRCL calculation 57 ml/min; Estimated Glomerular Filt Rate > 60; Glucose 135 mg/dL (65-110); Potassium 4.1 mmol/L (3.4-5.0); Sodium 139 mmol/L (137-145)
[2023-11-02] MEDS: FUROSEMIDE INJ 40 MG/4 ML VIAL IV PUSH (08:08)
[2023-11-02] MEDS: ROSUVASTATIN 20 MG TABLET PO (08:10)
[2023-11-02] MEDS: SERTRALINE HCL 50 MG TABLET 100 MG PO (08:10)
[2023-11-02] MEDS: rOPINIRole HCL 0.5 MG TABLET PO ×3 (08:10→17:15)
[2023-11-02] MEDS: CYANOCOBALAMIN 1,000 MCG TABLET 1000 MCG PO (08:10)
[2023-11-02] MEDS: GABAPENTIN 300 MG CAPSULE PO ×3 (08:11→17:13)
[2023-11-02] MEDS: SACUBITRIL/VALSARTAN 24-26 MG TABLET 1 TAB PO ×2 (08:11→20:25)
[2023-11-02] MEDS: METOPROLOL TARTRATE 50 MG TAB 100 MG PO ×2 (08:11→20:24)
[2023-11-02] MEDS: FAMOTIDINE 20 MG TABLET PO ×2 (08:11→20:24)
[2023-11-02] MEDS: POTASSIUM CHLORIDE 20 MEQ ER TABLET PO ×2 (08:11→17:13)
[2023-11-02] MEDS: FOLIC ACID 1 MG TABLET PO (08:11)
--- NOTE | 2023-11-02 08:13 | P.CONCA_ITS ---
Assessment and Plan Assessment and plan (1) Atrial fibrillation with RVR: Code(s): I48.91 - Unspecified atrial fibrillation Status: Acute Plan Acute on chronic diastolic heart failure AFib with RVR COPD on home oxygen Chronic anemia Hypertension controlled Plan Continue Lasix IV 40 mg b.i.d. for today and shift to Lasix 40 mg p.o. b.i.d. at home on discharge Continue Entresto 24-26 p.o. b.i.d. Metoprolol tartrate 100 mg b.i.d. If heart rate is not controlled we will add diltiazem XL 90 mg daily Continue oral anticoagulation with Xarelto and follow up CBC Limited echocardiogram for evaluation of LV function History of Present Illness History of Present Illness Consult date/time: 11/02/23 08:13 Reason For Visit: Pulmonary Edema/Afib RVR Narrative: 77 years F presented to hospital with progressive SOB that was present with mild activity associated with LE swelling. LE swelling was moderate bilateral to knee level. She also noted weight gain. She has Hx of COPD on Home O2 4 L. She has no worsening wheezes or cough. she has been on diuretic therapy at home but doesnt know dose or schedule. No change in diet. seh was [facility] with [facility]F and started on lasix with improvement in edema and SOB. Review of Systems Review of Systems: All systems reviewed & are unremarkable except as noted in HPI and below PMFSH Past Medical History Medical History Acute exacerbation of CHF (congestive heart failure) Acute kidney injury superimposed on CKD Acute on chronic respiratory failure with hypoxia and hypercapnia Acute respiratory failure Alcohol abuse Alcohol dependence Atrial fibrillation Azotemia Cervical disc disorder with radiculopathy of cervicothoracic region CHF exacerbation Chronic depression Chronic respiratory failure with hypoxia Contusion of face COVID-19 Elevated troponin level Hematoma and contusion Hyperglycemia Hypertensive urgency Hypotension Left shoulder pain Lung nodules 09/2018: stable R apex nodule/ multiple other nodules/emphysema LDCT: stable Mixed hyperlipidemia Murmur, cardiac Nicotine dependence, unspecified, in remission 40 pack year/ quit 2009 LDCT emphysema, multiple nodules NSTEMI (non-ST elevated myocardial infarction) Periorbital hematoma of both eyes Peripheral neuropathy Postmenopausal Primary osteoarthritis of right hip Pulmonary hypertension Restless leg syndrome Ulcerative colitis 2018 colonoscopy negative (cologuard +). UTI (urinary tract infection) Surgical History Surgical History History of appendectomy History of carpal tunnel surgery of left wrist (03/02/20) History of hysterectomy History of total replacement of right shoulder joint History of total right hip arthroplasty Family History Family History Mother Family history of osteoporosis Family history of mental disorder Family history of anemia Family history of arthritis Family history of malignant neoplasm Family history of Alzheimer's disease Patient's mother is Sibling Family history of malignant neoplasm of uterus Family history of malignant neoplasm of cervix Patient's sister is Daughter Crohn disease Other Cerebrovascular accident Family history of cardiovascular disease Family history of glaucoma Social History Social History Social History: Surrogate decision maker: Shantal Pond, daughter. Code status: Full code. Smoking packs per day: 1 Smoking cigarettes per day: 20.0 Years smoked: 50 Smoking pack-years: 50.00 Smoking status: Former smoker Tobacco type: cigarettes Smoking end date: 03/25/03 Alcohol intake: former Substance use: never Substance use type: does not use Do You Feel Safe in your Home?: Yes Lack of Transportation: No Lack of Food: Never True Current Housing: I Have Housing Concerned About Future Housing: No Difficulty Paying Gas/Electric Bills: No Difficulty Paying for Meds: No Currently Unemployed: No Education: High School Diploma/GED Difficulty w/ Childcare or Family Care: No Living arrangements: alone Additional living arrangements comments: The patient lives in her own home in [place]. Additional occupation/education comments: Retired. Spiritual care concerns: No Meds Home Medications and Allergies Home Medications Medication Instructions Recorded Confirmed Type nebulizers #1 ea 02/25/23 11/01/23 Rx albuterol sulfate 2.5 mg/3 mL 2.5 mg (3 mL) inhalation BID PRN 03/04/23 11/01/23 Rx (0.083 %) solution for nebulization Shortness Of Breath #90 mL furosemide 40 mg tablet (Lasix) 40 mg PO DAILY 08/12/23 11/01/23 History loperamide 2 mg capsule 4 mg PO DAILY 08/12/23 11/01/23 History (Anti-Diarrheal (loperamide)) rivaroxaban 20 mg tablet 20 mg PO DAILY 08/12/23 11/01/23 History acetaminophen 325 mg tablet 650 mg PO Q4H PRN Mild Pain (1-3) 08/20/23 11/01/23 Rx Or Fever #30 tabs famotidine 20 mg tablet 20 mg PO Q12HR #30 tabs 08/20/23 11/01/23 Rx ipratropium 0.5 mg-albuterol 3 mg 3 ml inhalation [id number] #90 mL 08/20/23 11/01/23 Rx (2.5 mg base)/3 mL nebulization soln sertraline 100 mg tablet 100 mg PO QAM #90 tabs 08/20/23 11/01/23 Rx Ozempic 0.25 mg or 0.5 mg (2 mg/3 0.5 mg (0.736 mL) subcut WEEKLY #3 09/18/23 11/01/23 Rx mL) subcutaneous pen injector mL (semaglutide) balsalazide 750 mg capsule See Rx Instructions .Route 09/19/23 11/01/23 Rx .COMPLEX #270 caps rosuvastatin 20 mg tablet 20 mg PO DAILY 09/19/23 11/01/23 History gabapentin 300 mg capsule 300 mg PO TID #90 caps 10/15/23 11/01/23 Rx cyanocobalamin (vitamin B-12) 1,000 mcg PO QAM 90 days #90 tabs 10/22/23 11/01/23 Rx 1,000 mcg tablet (Vitamin B-12) ropinirole 0.5 mg tablet 0.5 mg PO TID #270 tabs 10/28/23 11/01/23 Rx folic acid 1 mg tablet 1 mg PO DAILY 11/01/23 11/01/23 History metoprolol tartrate 25 mg tablet 100 mg PO Q12HR 11/01/23 11/01/23 History potassium chloride 10 mEq 20 meq PO BID 11/01/23 11/01/23 History tablet,extended release sacubitril 24 mg-valsartan 26 mg 1 tablet PO Q12HR 11/01/23 11/01/23 History tablet (Entresto) Allergies Allergy/AdvReac Type Severity Reaction Status Date / Time Penicillins Allergy Mild Rash Verified 11/01/23 12:13 thiopental [From Pentothal] AdvReac Intermediate Nausea and Verified 11/01/23 12:13 Vomiting Vital Signs Vital Signs - 24 hr 11/01/23 11:47 11/01/23 11:57 11/01/23 11:58 Temperature 36.8 C Pulse Rate 88 88 Respiratory Rate 22 H 25 H Blood Pressure 119/84 119/84 Pulse Oximetry 96 99 100 Oxygen Delivery Nasal Cannula Nasal Cannula Oxygen Flow Rate 4 4 Fraction of Inspired Oxygen 11/01/23 13:03 11/01/23 12:27 11/01/23 13:59 Temperature Pulse Rate 100 82 76 Respiratory Rate 19 20 20 Blood Pressure 122/82 Pulse Oximetry 100 Oxygen Delivery Oxygen Flow Rate Fraction of Inspired Oxygen 11/01/23 11:49 11/01/23 12:01 11/01/23 12:31 Temperature Pulse Rate 89 88 Respiratory Rate 22 H 21 H 18 Blood Pressure 119/84 130/79 Pulse Oximetry 95 100 98 Oxygen Delivery Oxygen Flow Rate Fraction of Inspired Oxygen 11/01/23 13:04 11/01/23 14:26 11/01/23 15:08 Temperature Pulse Rate 99 111 H 120 H Respiratory Rate 18 20 20 Blood Pressure 122/82 118/95 H 108/62 Pulse Oximetry 99 91 Oxygen Delivery Oxygen Flow Rate Fraction of Inspired Oxygen 11/01/23 15:30 11/01/23 16:22 11/01/23 17:06 Temperature Pulse Rate 130 H 114 H 120 H Respiratory Rate 21 H 20 21 H Blood Pressure 100/67 Pulse Oximetry 90 93 96 Oxygen Delivery BiPAP Oxygen Flow Rate Fraction of Inspired Oxygen 11/01/23 18:13 11/01/23 18:23 11/01/23 19:06 Temperature 37.0 C Pulse Rate 110 H 125 H 113 H Respiratory Rate 30 H 22 H Blood Pressure 136/72 Pulse Oximetry 100 100 Oxygen Delivery BiPAP Oxygen Flow Rate Fraction of Inspired Oxygen 11/01/23 20:14 11/01/23 22:31 11/01/23 21:10 Temperature 37.0 C Pulse Rate 130 H 104 H 130 H Respiratory Rate 20 20 Blood Pressure 133/68 Pulse Oximetry 100 100 Oxygen Delivery Nasal Cannula Oxygen Flow Rate 4 Fraction of Inspired Oxygen 11/01/23 23:23 11/01/23 20:00 11/01/23 22:00 Temperature 37.0 C Pulse Rate 110 H 116 H 111 H Respiratory Rate 20 Blood Pressure 128/64 Pulse Oximetry 92 Oxygen Delivery Oxygen Flow Rate Fraction of Inspired Oxygen 11/02/23 00:00 11/02/23 00:00 11/02/23 02:00 Temperature Pulse Rate 115 H 110 H 86 Respiratory Rate 20 Blood Pressure Pulse Oximetry 92 Oxygen Delivery Nasal Cannula Oxygen Flow Rate 4 Fraction of Inspired Oxygen 11/02/23 01:05 11/02/23 03:43 11/02/23 04:00 Temperature 36.9 C Pulse Rate 88 97 97 Respiratory Rate 16 24 H 24 H Blood Pressure 125/74 Pulse Oximetry 96 95 95 Oxygen Delivery BiPAP BiPAP Oxygen Flow Rate Fraction of Inspired Oxygen 40 11/02/23 04:00 11/02/23 05:20 11/02/23 06:20 Temperature 36.9 C Pulse Rate 91 82 94 Respiratory Rate 22 H Blood Pressure 125/74 Pulse Oximetry 94 Oxygen Delivery Oxygen Flow Rate Fraction of Inspired Oxygen 11/02/23 08:11 Temperature Pulse Rate 97 Respiratory Rate Blood Pressure Pulse Oximetry Oxygen Delivery Oxygen Flow Rate Fraction of Inspired Oxygen Exam Const: General: comfortable and no acute distress Other: Able to lie flat HENMT: Face/Nose/Sinus: Normal nares present and no epistaxis Mouth: Yes moist mucous membranes Eyes: Sclera: sclerae normal Pupils: Equal, round and reactive pupils present Neck: Neck: supple and no JVD Carotids: no bruits Resp: Auscultation: clear to auscultation bilaterally and lung sounds not diminished Other: No chest wall tenderness Cardio: Rate: regular rate Rhythm: regular rhythm Heart sounds: no gallops, no murmurs and no rubs GI: GI Palp: Yes Soft to palpation and No Tenderness to palpation present (GI) Auscultation: normal bowel sounds Skin: General skin exam: normal color, rashes and/or lesions noted and no erythema Other: Warm Neuro: Cranial nerves: Yes Equal, round and reactive pupils present Speech: normal speech Other: No obvious focal deficit or facial asymmetry Extrem: General: edema bilateral Other: Normal capillary refills Intact distal pulses. Results Labs and Meds 11/02/23 03:45 11/02/23 03:45 Lab results: Cardiac Enzymes 11/01/23 11/01/23 11/01/23 Range/Units 12:07 18:41 21:59 AST 49 H (14-36) U/L Troponin I < 0.012 < 0.012 < 0.012 (0.000-0.034) ng/mL 11/02/23 Range/Units 03:45 AST 48 H (14-36) U/L Troponin I (0.000-0.034) ng/mL CBC 11/01/23 11/02/23 Range/Units 12:06 03:45 WBC 4.9 5.4 (4.5-10.0) K/mm3 RBC 3.57 L 3.26 L (4.2-5.4) M/mm3 Hgb 10.8 L 10.0 L (12.0-15.0) g/dL Hct 36.4 L 32.7 L (37.0-47.0) % Plt Count 135 L 125 L (150-375) k/mm3 Lymph # (Auto) 0.83 L 0.47 L (0.9-3.2) K/mm3 [place] # (Auto) 0.3 0.3 (0.1-0.6) K/mm3 Eos # (Auto) 0.2 0.0 (0-0.3) K/mm3 Baso # (Auto) 0.0 0.0 (0.0-0.1) K/mm3 Comprehensive Metabolic Panel 11/01/23 11/02/23 Range/Units 12:07 03:45 Sodium 141 139 (137-145) mmol/L Potassium 4.2 4.1 (3.4-5.0) mmol/L Chloride 94 L 93 L (98-107) mmol/L Carbon Dioxide > 40 H 38 H (22-30) mmol/L BUN 26 H 26 H (7-17) mg/dL Creatinine 0.70 0.80 (0.7-1.0) mg/dL Glucose 92 135 H (65-110) mg/dL Calcium 8.9 8.5 (8.4-10.2) mg/dL AST 49 H 48 H (14-36) U/L ALT 19 19 (6-35) U/L Alkaline Phosphatase 50 43 (38-126) U/L Total Protein 7.0 6.0 L (6.3-8.2) g/dL Albumin 4.2 3.8 (3.5-5.1) g/dL Intake and Output 11/01/23 11/02/23 11/02/23 23:59 07:59 15:59 Intake Total 600 Output Total 0 1500 Balance 0 -900 Intake: Oral 600 Output: Catheter Urine 0 1500 External/Condom 0 1500 Patient Weight 11/02/23 23:59 Weight 89.9 kg
--- NOTE | 2023-11-02 12:53 | P.PNIM_ITS ---
Progress Note: A&P Assessment and Plan (1) Acute hypoxic respiratory failure: Code(s): J96.01 - Acute respiratory failure with hypoxia Status: Acute Assessment and Plan: - Likely related to CHF exacerbation. - Currently at baseline O2 @4L/NC per home dose. - Continue to monitor closely for respiratory distress. (2) Chronic HFrEF (heart failure with reduced ejection fraction): Code(s): I50.22 - Chronic systolic (congestive) heart failure Status: Acute Assessment and Plan: - Continue IV lasix with strict I & O's. - Daily weights. - 2D ECHO pending. - Continue Entresto. - [employer] Hel[employer] following. (3) Atrial fibrillation: Qualifiers: Atrial fibrillation type: unspecified chronic Qualified Code(s): I48.20 - Chronic atrial fibrillation, unspecified Code(s): I48.91 - Unspecified atrial fibrillation Status: Acute Assessment and Plan: - Rate well controlled. - Appears stable. - Continue metoprolol and rivaroxaban. (4) Physical deconditioning: Code(s): R53.81 - Other malaise Status: Acute Assessment and Plan: - PT eval and treatment. - Fall precautions. (5) Obstructive sleep apnea: Code(s): G47.33 - Obstructive sleep apnea (adult) (pediatric) Status: Acute Assessment and Plan: - Continue CPAP bedtime. (6) COPD with emphysema: Qualifiers: Emphysema type: unspecified Qualified Code(s): J43.9 - Emphysema, unspecified Code(s): J43.9 - Emphysema, unspecified Status: Acute Assessment and Plan: - Appears stable. - Continue bronchodilators and supplemental O2. (7) Hx of non-ST elevation myocardial infarction (NSTEMI): Code(s): I25.2 - Old myocardial infarction Status: Acute Assessment and Plan: - Continue metoprolol and statin. - Takes Apixaban for anticoagulation. (8) Chronic respiratory failure with hypoxia: Code(s): J96.11 - Chronic respiratory failure with hypoxia Status: Acute Assessment and Plan: - Appears stable. - Continue supplemental O2, currently at baseline home O2 4L/NC for sats > 90 %. Plan [employer] Hel[employer] following and recommendations noted. Continue Lasix IV 40 mg b.i.d. for today and shift to Lasix 40 mg p.o. b.i.d. at home on discharge Continue Entresto 24-26 p.o. b.i.d. Metoprolol tartrate 100 mg b.i.d. If heart rate is not controlled we will add diltiazem XL 90 mg daily Continue oral anticoagulation with Xarelto. Limited echocardiogram for evaluation of LV function pending. Time Spent With Patient Time with patient: 25 - 35 minutes Subjective Date/time seen: 11/02/23 10:50 Interval history: Patient presented to the ER with reports of worsening SOB, josé. LE edema and weight gain, within the last couple of days prior to her presentation. Patient unsure of her diuretics schedule and dosing. She's on 4L/NC at baseline due to her chronic COPD. Her CXR and chest CTA were suggestive of moderate pulmonary edema and patient was started on IV lasix, with the supervisor instrument mechanics consulted for further mgt. Patient currently reports much improvement in symptoms, with SOB and legs swelling much improved per patient. Review of Systems Review of Systems: All systems reviewed & are unremarkable except as noted in HPI and below Exam Narrative: General: Atraumatic, PERRL, non-icteric, moist mucus membranes. Neck: Supple. Pulmonary: Crackles to josé. bases. Cardiopulmonary: Irregularly irregular. GI: Abdomen soft, non-tender, +ve bowel sounds X4 quadrants. Skin: Warm and dry, no rash or lesions noted. Extremities: Trace edema to josé. LE, Pedal and radial pulses 2+. Neuro: Well oriented. CN II-XII grossly intact. Psych; Pleasant and co-operative, judgement and insignt intact. Objective Data Vital Signs Vital Signs: Vital Signs - 24 hr 11/01/23 13:03 11/01/23 13:59 11/01/23 13:04 Temperature Pulse Rate 100 76 99 Respiratory Rate 19 20 18 Blood Pressure 122/82 122/82 Pulse Oximetry 100 99 Oxygen Delivery Oxygen Flow Rate Fraction of Inspired Oxygen 11/01/23 14:26 11/01/23 15:08 11/01/23 15:30 Temperature Pulse Rate 111 H 120 H 130 H Respiratory Rate 20 20 21 H Blood Pressure 118/95 H 108/62 Pulse Oximetry 91 90 Oxygen Delivery Oxygen Flow Rate Fraction of Inspired Oxygen 11/01/23 16:22 11/01/23 17:06 11/01/23 18:13 Temperature Pulse Rate 114 H 120 H 110 H Respiratory Rate 20 21 H 30 H Blood Pressure 100/67 Pulse Oximetry 93 96 100 Oxygen Delivery BiPAP BiPAP Oxygen Flow Rate Fraction of Inspired Oxygen 11/01/23 18:23 11/01/23 19:06 11/01/23 20:14 Temperature 98.6 F 98.6 F Pulse Rate 125 H 113 H 130 H Respiratory Rate 22 H 20 Blood Pressure 136/72 133/68 Pulse Oximetry 100 100 Oxygen Delivery Oxygen Flow Rate Fraction of Inspired Oxygen 11/01/23 22:31 11/01/23 21:10 11/01/23 23:23 Temperature 98.6 F Pulse Rate 104 H 130 H 110 H Respiratory Rate 20 20 Blood Pressure 128/64 Pulse Oximetry 100 92 Oxygen Delivery Nasal Cannula Oxygen Flow Rate 4 Fraction of Inspired Oxygen 11/01/23 20:00 11/01/23 22:00 11/02/23 00:00 Temperature Pulse Rate 116 H 111 H 115 H Respiratory Rate Blood Pressure Pulse Oximetry Oxygen Delivery Oxygen Flow Rate Fraction of Inspired Oxygen 11/02/23 00:00 11/02/23 02:00 11/02/23 01:05 Temperature Pulse Rate 110 H 86 88 Respiratory Rate 20 16 Blood Pressure Pulse Oximetry 92 96 Oxygen Delivery Nasal Cannula BiPAP Oxygen Flow Rate 4 Fraction of Inspired Oxygen 11/02/23 03:43 11/02/23 04:00 11/02/23 04:00 Temperature 98.5 F Pulse Rate 97 97 91 Respiratory Rate 24 H 24 H Blood Pressure 125/74 Pulse Oximetry 95 95 Oxygen Delivery BiPAP Oxygen Flow Rate Fraction of Inspired Oxygen 40 11/02/23 05:20 11/02/23 06:20 11/02/23 08:11 Temperature 98.5 F Pulse Rate 82 94 97 Respiratory Rate 22 H Blood Pressure 125/74 Pulse Oximetry 94 Oxygen Delivery Oxygen Flow Rate Fraction of Inspired Oxygen 11/02/23 08:00 11/02/23 08:00 11/02/23 10:00 Temperature Pulse Rate 97 88 80 Respiratory Rate 22 H Blood Pressure Pulse Oximetry 94 Oxygen Delivery Nasal Cannula Oxygen Flow Rate 4 Fraction of Inspired Oxygen 11/02/23 09:00 11/02/23 11:47 11/02/23 12:00 Temperature 98.0 F Pulse Rate 88 81 Respiratory Rate 20 Blood Pressure 113/76 Pulse Oximetry 94 99 Oxygen Delivery Nasal Cannula Oxygen Flow Rate 4 Fraction of Inspired Oxygen 11/02/23 12:00 Temperature Pulse Rate Respiratory Rate Blood Pressure Pulse Oximetry 98 Oxygen Delivery Nasal Cannula Oxygen Flow Rate 4 Fraction of Inspired Oxygen Intake/Output Intake/Output: Intake & Output 10/30/23 10/31/23 11/01/23 11/02/23 23:59 23:59 23:59 23:59 Intake Total 960 Output Total 0 1800 Balance 0 -840 Meds/Results Medications: Active Medications Generic Name Dose Route Start Last Admin Trade Name Freq PRN Reason Stop Dose Admin Acetaminophen 650 mg 11/01/23 21:45 Acetaminophen 325 Mg Tablet PO Q4H PRN Mild Pain (1-3) Or Fever Albuterol 2.5 mg 11/01/23 21:45 Albuterol Sulfate Neb 2.5 Mg/3 Ml Inh INHALATION BID PRN Shortness Of Breath Cyanocobalamin 1,000 mcg 11/02/23 09:00 11/02/23 08:10 Cyanocobalamin 1,000 Mcg Tablet PO 1,000 mcg QAM ELANA Administration Famotidine 20 mg 11/02/23 09:00 11/02/23 08:11 Famotidine 20 Mg Tablet PO 20 mg Q12HR ELANA Administration Folic Acid 1 mg 11/02/23 09:00 11/02/23 08:11 Folic Acid 1 Mg Tablet PO 1 mg DAILY ELANA Administration Furosemide 40 mg 11/02/23 09:00 11/02/23 08:08 Furosemide Inj 40 Mg/4 Ml Vial IV PUSH 40 mg DAILY ELANA Administration Gabapentin 300 mg 11/02/23 09:00 11/02/23 08:11 Gabapentin 300 Mg Capsule PO 300 mg TID ELANA Administration Loperamide HCl 2 mg 11/01/23 21:54 Loperamide Hcl 2 Mg Capsule PO Q2H PRN Diarrhea Metoprolol Tartrate 100 mg 11/01/23 22:05 11/02/23 08:11 Metoprolol Tartrate 50 Mg Tab PO 100 mg Q12HR ELANA Administration Perflutren Lipid Microsphere 0 ml 11/01/23 18:24 Perflutren Lipid Microspheres 1.5 Ml Vial Diluted To 10 Ml Total Volume IV PUSH 11/04/23 18:24 ONCE PRN adequate visualization Protocol Potassium Chloride 20 meq 11/02/23 09:00 11/02/23 08:11 Potassium Chloride 20 Meq Er Tablet PO 20 meq BID ELANA Administration Rivaroxaban 20 mg 11/02/23 17:00 Rivaroxaban 20 Mg Tablet PO DAILY@1700 ELANA Ropinirole HCl 0.5 mg 11/01/23 21:55 11/02/23 08:10 Ropinirole Hcl 0.5 Mg Tablet PO 0.5 mg TID ELANA Administration Rosuvastatin Calcium 20 mg 11/02/23 09:00 11/02/23 08:10 Rosuvastatin 20 Mg Tablet PO 20 mg DAILY ELANA Administration Sacubitril/Valsartan 1 tab 11/01/23 21:55 11/02/23 08:11 Sacubitril/Valsartan 24-26 Mg Tablet PO 1 tab Q12HR ELANA Administration Sertraline HCl 100 mg 11/02/23 09:00 11/02/23 08:10 Sertraline Hcl 50 Mg Tablet PO 100 mg QAM ELANA Administration Radiology Results: ITS Impressions Chest X-Ray 11/01/23 12:29 Impression: Mild bibasilar pulmonary edema and/or chronic interstitial change. Chest CTA 11/01/23 14:51 IMPRESSION: 1. No pulmonary embolus. Sensitivity is mildly decreased by motion artifact. 2. Diffuse lung disease, likely moderate pulmonary edema. Labs Labs: Laboratory Results - last 24 hr 11/01/23 11/01/23 11/01/23 13:09 16:56 18:41 WBC RBC Hgb Hct MCV MCH MCHC RDW Plt Count MPV Immature Gran % (Auto) Neut % (Auto) Lymph % (Auto) [place] % (Auto) Eos % (Auto) Baso % (Auto) Lymph # (Auto) [place] # (Auto) Eos # (Auto) Baso # (Auto) Abs Immat Gran (auto) Absolute Neuts (auto) Absolute Nucleated RBC Nucleated RBC % % Immature Plt Fraction Puncture Site Right radial ABG pH 7.369 ABG pCO2 57.5 H ABG pO2 59.1 L ABG PO2/FiO2 Ratio 1.64 ABG HCO3 32.4 H ABG O2 Saturation 89.3 L ABG O2 Content 14.5 L ABG Base Excess 5.8 VBG pH 7.351 VBG pCO2 60.9 H VBG pO2 89.4 H VBG HCO3 32.9 H A-a Gradient 130.9 Oxyhemoglobin 90.1 Total Hemoglobin 11.4 L O2 Delivery Device Nasal cannula Nasal cannula O2 Liters/Min 4.0 4.0 FiO2 36 36 Sodium Potassium Chloride Carbon Dioxide Anion Gap BUN Creatinine Estim Creat Clear Calc Estimated GFR Glucose Calcium Total Bilirubin AST ALT Alkaline Phosphatase Troponin I < 0.012 Total Protein Albumin 11/01/23 11/02/23 21:59 03:45 WBC 5.4 RBC 3.26 L Hgb 10.0 L Hct 32.7 L MCV 100.3 H MCH 30.7 MCHC 30.6 L RDW 13.2 Plt Count 125 L MPV 11.2 H Immature Gran % (Auto) 0.4 Neut % (Auto) 85.5 H Lymph % (Auto) 8.7 L [place] % (Auto) 5.4 Eos % (Auto) 0.0 Baso % (Auto) 0.0 L Lymph # (Auto) 0.47 L [place] # (Auto) 0.3 Eos # (Auto) 0.0 Baso # (Auto) 0.0 Abs Immat Gran (auto) 0.02 Absolute Neuts (auto) 4.6 Absolute Nucleated RBC 0.000 Nucleated RBC % 0.0 % Immature Plt Fraction 7.3 Puncture Site ABG pH ABG pCO2 ABG pO2 ABG PO2/FiO2 Ratio ABG HCO3 ABG O2 Saturation ABG O2 Content ABG Base Excess VBG pH VBG pCO2 VBG pO2 VBG HCO3 A-a Gradient Oxyhemoglobin Total Hemoglobin O2 Delivery Device O2 Liters/Min FiO2 Sodium 139 Potassium 4.1 Chloride 93 L Carbon Dioxide 38 H Anion Gap 8 BUN 26 H Creatinine 0.80 Estim Creat Clear Calc 57 Estimated GFR > 60 Glucose 135 H Calcium 8.5 Total Bilirubin 1.5 H AST 48 H ALT 19 Alkaline Phosphatase 43 Troponin I < 0.012 Total Protein 6.0 L Albumin 3.8 Quality VTE Prophylaxis VTE prophylaxis: pharmacologic ordered Hospitalist [facility] Advance Care Plan I have confirmed that the patient's Advanced Care Plan is present, code status is documented, or surrogate decision maker is listed in patient medical record.: Yes Medication Reconciliation I have utilized all available resources to obtain, update and review the patients current medications (includes all prescriptions, OTC, herbals, cannabis, and nutritional supplements).: Yes
[2023-11-02] MEDS: RIVAROXABAN 20 MG TABLET PO (17:13)
[2023-11-02] MEDS: PRAMIPEXOLE 1 MG TABLET PO (23:00)
[2023-11-03] VITALS (21 sets, daily range): BP systolic 96–124; BP diastolic 49–80; PULSE 64–92; RESP 20–24; TEMP 36.6–37.2; O2SAT 93–100
[2023-11-03 05:08] LABS: Alanine Aminotransferase 22 U/L (6-35); Albumin Level 3.7 g/dL (3.5-5.1); Alkaline Phosphatase 46 U/L (38-126); Anion Gap 5 mmol/L (4-12); Aspartate Amino Transferase 57 U/L (14-36); Bilirubin,Total 1.2 mg/dL (0.2-1.3); Blood Urea Nitrogen 30 mg/dL (7-17); Calcium 8.9 mg/dL (8.4-10.2); Carbon Dioxide 39 mmol/L (22-30); Chloride 95 mmol/L (98-107); Estimated CRCL calculation 51 ml/min; Estimated Glomerular Filt Rate > 60; Glucose 90 mg/dL (65-110); Potassium 4.5 mmol/L (3.4-5.0); Sodium 139 mmol/L (137-145)
--- NOTE | 2023-11-03 07:26 | P.PNIM_ITS ---
Progress Note: A&P Assessment and Plan (1) Acute hypoxic respiratory failure: Code(s): J96.01 - Acute respiratory failure with hypoxia Status: Acute Assessment and Plan: - Likely related to CHF exacerbation. - Currently at baseline O2 @4L/NC per home dose. - Continue to monitor closely for respiratory distress. (2) Chronic HFrEF (heart failure with reduced ejection fraction): Code(s): I50.22 - Chronic systolic (congestive) heart failure Status: Acute Assessment and Plan: - Continue IV lasix with strict I & O's. - Daily weights. - 2D ECHO pending. - Continue Entresto. - Clothes Marker following- recommendations reviewed: Change Lasix to 40 mg p.o. b.i.d. Continue Entresto 24-26 p.o. b.i.d. Metoprolol tartrate 100 mg b.i.d. Continue oral anticoagulation with Xarelto and follow up CBC Limited echocardiogram for evaluation of LV function (3) Atrial fibrillation: Qualifiers: Atrial fibrillation type: unspecified chronic Qualified Code(s): I48.20 - Chronic atrial fibrillation, unspecified Code(s): I48.91 - Unspecified atrial fibrillation Status: Acute Assessment and Plan: - Rate well controlled. - Appears stable. - Continue metoprolol and rivaroxaban. (4) Physical deconditioning: Code(s): R53.81 - Other malaise Status: Acute Assessment and Plan: - PT eval and treatment. - Fall precautions. (5) Obstructive sleep apnea: Code(s): G47.33 - Obstructive sleep apnea (adult) (pediatric) Status: Acute Assessment and Plan: - Continue CPAP bedtime. (6) COPD with emphysema: Qualifiers: Emphysema type: unspecified Qualified Code(s): J43.9 - Emphysema, unsp ecified Code(s): J43.9 - Emphysema, unspecified Status: Acute Assessment and Plan: - stable- continue to monitor. - Continue bronchodilators and supplemental O2. (7) Hx of non-ST elevation myocardial infarction (NSTEMI): Code(s): I25.2 - Old myocardial infarction Status: Acute Assessment and Plan: - Continue metoprolol and statin. - Takes Apixaban for anticoagulation. (8) Chronic respiratory failure with hypoxia: Code(s): J96.11 - Chronic respiratory failure with hypoxia Status: Acute Assessment and Plan: - Appears stable. - Continue supplemental O2, currently at baseline home O2 4L/NC for sats > 90 %. Time Spent With Patient Time with patient: Greater than 35 minutes Subjective Date/time seen: 11/03/23 07:26 Interval history: Patient admitted from the ER with worsening SOB, josé. LE edema and weight gain, within the last couple of days prior to her presentation. Patient unsure of her diuretics schedule and dosing. She's on 4L/NC at baseline due to her chronic COPD. Her CXR and chest CTA were suggestive of moderate pulmonary edema and patient was started on IV lasix, with the hr internship consulted for further mgt. Patient currently reports much improvement in symptoms, with SOB and legs swelling much improved per patient . 11/02- pt is seen and examined at the bedside today. she is up in the chair- somewhat low energy, tired. Denies chest pain, dizziness Review of Systems Review of Systems: All systems reviewed & are unremarkable except as noted in HPI and below Exam Narrative: General: Atraumatic, PERRL, non-icteric, moist mucus membranes. Neck: Supple. Pulmonary: Crackles to josé. bases. Cardiopulmonary: Irregularly irregular. GI: Abdomen soft, non-tender, +ve bowel sounds X4 quadrants. Skin: Warm and dry, no rash or lesions noted. Extremities: Trace edema to josé. LE, Pedal and radial pulses 2+. Neuro: Well oriented. CN II-XII grossly intact. Psych; Pleasant and co-operative, judgement and insignt intact. Const: General: comfortable and no acute distress Other: , female, elderly, nontoxic appearance HENMT: Face/Nose/Sinus: Normal nares present Mouth: Yes moist mucous membranes Other: NC in place Eyes: General: appearance normal, both eyes and all related structures Sclera: sclerae normal Pupils: Equal, round and reactive pupils present EOM: EOMs intact bilaterally Resp: Effort & Inspection: normal respiratory effort Other: Diminished at bases Cardio: Rate: tachycardic Rhythm: regular rhythm Other: S1-S2 present without murmur Skin: General skin exam: normal color and no rashes or lesions noted Wounds: no wounds Neuro: Cranial nerves: Yes Equal, round and reactive pupils present Speech: normal speech Motor exam (neuro): 5/5 motor strength present throughout Sensory Exam: normal sensation Other: A&O x4 Extrem: Other: Asymmetric lower extremity swelling: LLE with 1+ edema, RLE with trace edema (chronic post-stroke, 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) Psych: Mental Status: mental status grossly normal Affect: normal affect Other: Good insight and judgment, very pleasant Objective Data Vital Signs Vital Signs: Vital Signs - 24 hr 11/02/23 08:11 11/02/23 08:00 11/02/23 08:00 Temperature Pulse Rate 97 97 88 Respiratory Rate 22 H Blood Pressure Pulse Oximetry 94 Oxygen Delivery Nasal Cannula Oxygen Flow Rate 4 Fraction of Inspired Oxygen 11/02/23 10:00 11/02/23 09:00 11/02/23 11:47 Temperature 98.0 F Pulse Rate 80 88 Respiratory Rate 20 Blood Pressure 113/76 Pulse Oximetry 94 99 Oxygen Delivery Nasal Cannula Oxygen Flow Rate 4 Fraction of Inspired Oxygen 11/02/23 12:00 11/02/23 12:00 11/02/23 14:00 Temperature Pulse Rate 81 78 Respiratory Rate Blood Pressure Pulse Oximetry 98 Oxygen Delivery Nasal Cannula Oxygen Flow Rate 4 Fraction of Inspired Oxygen 11/02/23 15:44 11/02/23 16:00 11/02/23 16:00 Temperature 98.9 F Pulse Rate 81 82 Respiratory Rate 20 Blood Pressure 108/81 Pulse Oximetry 98 99 Oxygen Delivery Nasal Cannula Oxygen Flow Rate 4 Fraction of Inspired Oxygen 11/02/23 18:00 11/02/23 20:13 11/02/23 20:24 Temperature 98.9 F Pulse Rate 85 63 104 H Respiratory Rate 20 Blood Pressure 116/76 Pulse Oximetry 94 Oxygen Delivery Oxygen Flow Rate Fraction of Inspired Oxygen 11/02/23 21:54 11/02/23 20:00 11/02/23 21:10 Temperature Pulse Rate 77 63 63 Respiratory Rate 21 H 20 20 Blood Pressure Pulse Oximetry 100 94 94 Oxygen Delivery BiPAP Nasal Cannula Nasal Cannula Oxygen Flow Rate 4 4 Fraction of Inspired Oxygen 11/02/23 23:24 11/02/23 20:00 11/02/23 22:00 Temperature 98.9 F Pulse Rate 80 84 76 Respiratory Rate 20 Blood Pressure 122/74 Pulse Oximetry 95 Oxygen Delivery Oxygen Flow Rate Fraction of Inspired Oxygen 11/03/23 00:00 11/03/23 00:00 11/03/23 01:25 Temperature Pulse Rate 74 80 70 Respiratory Rate 20 21 H Blood Pressure Pulse Oximetry 95 100 Oxygen Delivery BiPAP BiPAP Oxygen Flow Rate Fraction of Inspired Oxygen 40 11/03/23 01:41 11/03/23 04:00 11/03/23 04:40 Temperature 98.3 F Pulse Rate 77 64 67 Respiratory Rate 22 H Blood Pressure 118/72 Pulse Oximetry 96 Oxygen Delivery Oxygen Flow Rate Fraction of Inspired Oxygen 11/03/23 04:54 11/03/23 04:00 11/03/23 06:00 Temperature Pulse Rate 70 67 68 Respiratory Rate 23 H 22 H Blood Pressure Pulse Oximetry 95 96 Oxygen Delivery BiPAP BiPAP Oxygen Flow Rate Fraction of Inspired Oxygen 35 Intake/Output Intake/Output: Intake & Output 10/31/23 11/01/23 11/02/23 11/03/23 23:59 23:59 23:59 23:59 Intake Total 1200 200 Output Total 0 2400 200 Balance 0 -1200 0 Meds/Results Medications: Active Medications Generic Name Dose Route Start Last Admin Trade Name Freq PRN Reason Stop Dose Admin Acetaminophen 650 mg 11/01/23 21:45 Acetaminophen 325 Mg Tablet PO Q4H PRN Mild Pain (1-3) Or Fever Albuterol 2.5 mg 11/01/23 21:45 Albuterol Sulfate Neb 2.5 Mg/3 Ml Inh INHALATION BID PRN Shortness Of Breath Cyanocobalamin 1,000 mcg 11/02/23 09:00 11/02/23 08:10 Cyanocobalamin 1,000 Mcg Tablet PO 1,000 mcg QAM ELANA Administration Famotidine 20 mg 11/02/23 09:00 11/02/23 20:24 Famotidine 20 Mg Tablet PO 20 mg Q12HR ELANA Administration Folic Acid 1 mg 11/02/23 09:00 11/02/23 08:11 Folic Acid 1 Mg Tablet PO 1 mg DAILY ELANA Administration Furosemide 40 mg 11/02/23 09:00 11/02/23 08:08 Furosemide Inj 40 Mg/4 Ml Vial IV PUSH 40 mg DAILY ELANA Administration Gabapentin 300 mg 11/02/23 09:00 11/02/23 17:13 Gabapentin 300 Mg Capsule PO 300 mg TID ELANA Administration Loperamide HCl 2 mg 11/01/23 21:54 Loperamide Hcl 2 Mg Capsule PO Q2H PRN Diarrhea Metoprolol Tartrate 100 mg 11/01/23 22:05 11/02/23 20:24 Metoprolol Tartrate 50 Mg Tab PO 100 mg Q12HR ELANA Administration Perflutren Lipid Microsphere 0 ml 11/01/23 18:24 Perflutren Lipid Microspheres 1.5 Ml Vial Diluted To 10 Ml Total Volume IV PUSH 11/04/23 18:24 ONCE PRN adequate visualization Protocol Potassium Chloride 20 meq 11/02/23 09:00 11/02/23 17:13 Potassium Chloride 20 Meq Er Tablet PO 20 meq BID ELANA Administration Pramipexole Dihydrochloride 1 mg 11/02/23 21:00 11/02/23 23:00 Pramipexole 1 Mg Tablet PO 1 mg HS ELANA Administration Rivaroxaban 20 mg 11/02/23 17:00 11/02/23 17:13 Rivaroxaban 20 Mg Tablet PO 20 mg DAILY@1700 ELANA Administration Ropinirole HCl 0.5 mg 11/01/23 21:55 11/02/23 17:15 Ropinirole Hcl 0.5 Mg Tablet PO 0.5 mg TID ELANA Administration Rosuvastatin Calcium 20 mg 11/02/23 09:00 11/02/23 08:10 Rosuvastatin 20 Mg Tablet PO 20 mg DAILY ELANA Administration Sacubitril/Valsartan 1 tab 11/01/23 21:55 11/02/23 20:25 Sacubitril/Valsartan 24-26 Mg Tablet PO 1 tab Q12HR ELANA Administration Sertraline HCl 100 mg 11/02/23 09:00 11/02/23 08:10 Sertraline Hcl 50 Mg Tablet PO 100 mg QAM ELANA Administration Radiology Results: ITS Impressions Chest X-Ray 11/01/23 12:29 Impression: Mild bibasilar pulmonary edema and/or chronic interstitial change. Chest CTA 11/01/23 14:51 IMPRESSION: 1. No pulmonary embolus. Sensitivity is mildly decreased by motion artifact. 2. Diffuse lung disease, likely moderate pulmonary edema. Labs Labs: Laboratory Results - last 24 hr 11/03/23 04:16 Sodium 139 Potassium 4.5 Chloride 95 L Carbon Dioxide 39 H Anion Gap 5 BUN 30 H Creatinine 0.90 Estim Creat Clear Calc 51 Estimated GFR > 60 Glucose 90 Calcium 8.9 Total Bilirubin 1.2 AST 57 H ALT 22 Alkaline Phosphatase 46 Total Protein 7.0 Albumin 3.7 Quality VTE Prophylaxis VTE prophylaxis: pharmacologic ordered Hospitalist [facility] Advance Care Plan I have confirmed that the patient's Advanced Care Plan is present, code status is documented, or surrogate decision maker is listed in patient medical record.: Yes Medication Reconciliation I have utilized all available resources to obtain, update and review the patients current medications (includes all prescriptions, OTC, herbals, cannabis, and nutritional supplements).: Yes
--- NOTE | 2023-11-03 07:44 | PM.PNCARD ---
Progress Note: A&P Assessment and Plan (1) Atrial fibrillation with RVR: Code(s): I48.91 - Unspecified atrial fibrillation Status: Acute Plan Acute on chronic diastolic heart failure currently compensated AFib with RVR currently controlled COPD on home oxygen Chronic anemia Hypertension controlled Plan Change Lasix to 40 mg p.o. b.i.d. Continue Entresto 24-26 p.o. b.i.d. Metoprolol tartrate 100 mg b.i.d. Continue oral anticoagulation with Xarelto and follow up CBC Limited echocardiogram for evaluation of LV function Subjective Date/time seen: 11/03/23 07:44 Interval history: No acute events Telemetry was AFib heart rate 70s Review of Systems Review of Systems: All systems reviewed & are unremarkable except as noted in HPI and below Exam Const: General: comfortable and no acute distress Other: Able to lie flat HENMT: Face/Nose/Sinus: Normal nares present and no epistaxis Mouth: Yes moist mucous membranes Eyes: Sclera: sclerae normal Pupils: Equal, round and reactive pupils present Neck: Neck: supple and no JVD Carotids: no bruits Resp: Auscultation: clear to auscultation bilaterally and lung sounds not diminished Other: No chest wall tenderness Cardio: Rate: regular rate Rhythm: regular rhythm Heart sounds: no gallops, no murmurs and no rubs GI: GI Palp: Yes Soft to palpation and No Tenderness to palpation present (GI) Auscultation: normal bowel sounds Skin: General skin exam: normal color, rashes and/or lesions noted and no erythema Other: Warm Neuro: Cranial nerves: Yes Equal, round and reactive pupils present Speech: normal speech Other: No obvious focal deficit or facial asymmetry Extrem: General: edema bilateral Other: Normal capillary refills Intact distal pulses. Objective Data Vital Signs Vital Signs: Vital Signs - 24 hr 11/02/23 08:11 11/02/23 08:00 11/02/23 08:00 Temperature Pulse Rate 97 97 88 Respiratory Rate 22 H Blood Pressure Pulse Oximetry 94 Oxygen Delivery Nasal Cannula Oxygen Flow Rate 4 Fraction of Inspired Oxygen 11/02/23 10:00 11/02/23 09:00 11/02/23 11:47 Temperature 36.7 C Pulse Rate 80 88 Respiratory Rate 20 Blood Pressure 113/76 Pulse Oximetry 94 99 Oxygen Delivery Nasal Cannula Oxygen Flow Rate 4 Fraction of Inspired Oxygen 11/02/23 12:00 11/02/23 12:00 11/02/23 14:00 Temperature Pulse Rate 81 78 Respiratory Rate Blood Pressure Pulse Oximetry 98 Oxygen Delivery Nasal Cannula Oxygen Flow Rate 4 Fraction of Inspired Oxygen 11/02/23 15:44 11/02/23 16:00 11/02/23 16:00 Temperature 37.2 C Pulse Rate 81 82 Respiratory Rate 20 Blood Pressure 108/81 Pulse Oximetry 98 99 Oxygen Delivery Nasal Cannula Oxygen Flow Rate 4 Fraction of Inspired Oxygen 11/02/23 18:00 11/02/23 20:13 11/02/23 20:24 Temperature 37.2 C Pulse Rate 85 63 104 H Respiratory Rate 20 Blood Pressure 116/76 Pulse Oximetry 94 Oxygen Delivery Oxygen Flow Rate Fraction of Inspired Oxygen 11/02/23 21:54 11/02/23 20:00 11/02/23 21:10 Temperature Pulse Rate 77 63 63 Respiratory Rate 21 H 20 20 Blood Pressure Pulse Oximetry 100 94 94 Oxygen Delivery BiPAP Nasal Cannula Nasal Cannula Oxygen Flow Rate 4 4 Fraction of Inspired Oxygen 11/02/23 23:24 11/02/23 20:00 11/02/23 22:00 Temperature 37.2 C Pulse Rate 80 84 76 Respiratory Rate 20 Blood Pressure 122/74 Pulse Oximetry 95 Oxygen Delivery Oxygen Flow Rate Fraction of Inspired Oxygen 11/03/23 00:00 11/03/23 00:00 11/03/23 01:25 Temperature Pulse Rate 74 80 70 Respiratory Rate 20 21 H Blood Pressure Pulse Oximetry 95 100 Oxygen Delivery BiPAP BiPAP Oxygen Flow Rate Fraction of Inspired Oxygen 40 11/03/23 01:41 11/03/23 04:00 11/03/23 04:40 Temperature 36.8 C Pulse Rate 77 64 67 Respiratory Rate 22 H Blood Pressure 118/72 Pulse Oximetry 96 Oxygen Delivery Oxygen Flow Rate Fraction of Inspired Oxygen 11/03/23 04:54 11/03/23 04:00 11/03/23 06:00 Temperature Pulse Rate 70 67 68 Respiratory Rate 23 H 22 H Blood Pressure Pulse Oximetry 95 96 Oxygen Delivery BiPAP BiPAP Oxygen Flow Rate Fraction of Inspired Oxygen 35 Intake/Output Intake/Output: Intake & Output 10/31/23 11/01/23 11/02/23 11/03/23 23:59 23:59 23:59 23:59 Intake Total 1200 200 Output Total 0 2400 200 Balance 0 -1200 0 Meds/Results Medications: Active Medications Generic Name Dose Route Start Last Admin Trade Name Freq PRN Reason Stop Dose Admin Acetaminophen 650 mg 11/01/23 21:45 Acetaminophen 325 Mg Tablet PO Q4H PRN Mild Pain (1-3) Or Fever Albuterol 2.5 mg 11/01/23 21:45 Albuterol Sulfate Neb 2.5 Mg/3 Ml Inh INHALATION BID PRN Shortness Of Breath Cyanocobalamin 1,000 mcg 11/02/23 09:00 11/02/23 08:10 Cyanocobalamin 1,000 Mcg Tablet PO 1,000 mcg QAM ELANA Administration Famotidine 20 mg 11/02/23 09:00 11/02/23 20:24 Famotidine 20 Mg Tablet PO 20 mg Q12HR ELANA Administration Folic Acid 1 mg 11/02/23 09:00 11/02/23 08:11 Folic Acid 1 Mg Tablet PO 1 mg DAILY ELANA Administration Furosemide 40 mg 11/02/23 09:00 11/02/23 08:08 Furosemide Inj 40 Mg/4 Ml Vial IV PUSH 40 mg DAILY ELANA Administration Gabapentin 300 mg 11/02/23 09:00 11/02/23 17:13 Gabapentin 300 Mg Capsule PO 300 mg TID ELANA Administration Loperamide HCl 2 mg 11/01/23 21:54 Loperamide Hcl 2 Mg Capsule PO Q2H PRN Diarrhea Metoprolol Tartrate 100 mg 11/01/23 22:05 11/02/23 20:24 Metoprolol Tartrate 50 Mg Tab PO 100 mg Q12HR ELANA Administration Perflutren Lipid Microsphere 0 ml 11/01/23 18:24 Perflutren Lipid Microspheres 1.5 Ml Vial Diluted To 10 Ml Total Volume IV PUSH 11/04/23 18:24 ONCE PRN adequate visualization Protocol Potassium Chloride 20 meq 11/02/23 09:00 11/02/23 17:13 Potassium Chloride 20 Meq Er Tablet PO 20 meq BID ELANA Administration Pramipexole Dihydrochloride 1 mg 11/02/23 21:00 11/02/23 23:00 Pramipexole 1 Mg Tablet PO 1 mg HS ELANA Administration Rivaroxaban 20 mg 11/02/23 17:00 11/02/23 17:13 Rivaroxaban 20 Mg Tablet PO 20 mg DAILY@1700 ELANA Administration Ropinirole HCl 0.5 mg 11/01/23 21:55 11/02/23 17:15 Ropinirole Hcl 0.5 Mg Tablet PO 0.5 mg TID ELANA Administration Rosuvastatin Calcium 20 mg 11/02/23 09:00 11/02/23 08:10 Rosuvastatin 20 Mg Tablet PO 20 mg DAILY ELANA Administration Sacubitril/Valsartan 1 tab 11/01/23 21:55 11/02/23 20:25 Sacubitril/Valsartan 24-26 Mg Tablet PO 1 tab Q12HR ELANA Administration Sertraline HCl 100 mg 11/02/23 09:00 11/02/23 08:10 Sertraline Hcl 50 Mg Tablet PO 100 mg QAM ELANA Administration Radiology Results: ITS Impressions Chest X-Ray 11/01/23 12:29 Impression: Mild bibasilar pulmonary edema and/or chronic interstitial change. Chest CTA 11/01/23 14:51 IMPRESSION: 1. No pulmonary embolus. Sensitivity is mildly decreased by motion artifact. 2. Diffuse lung disease, likely moderate pulmonary edema. Labs Labs: Laboratory Results - last 24 hr 11/03/23 04:16 Sodium 139 Potassium 4.5 Chloride 95 L Carbon Dioxide 39 H Anion Gap 5 BUN 30 H Creatinine 0.90 Estim Creat Clear Calc 51 Estimated GFR > 60 Glucose 90 Calcium 8.9 Total Bilirubin 1.2 AST 57 H ALT 22 Alkaline Phosphatase 46 Total Protein 7.0 Albumin 3.7
[2023-11-03] MEDS: FUROSEMIDE 40 MG TABLET PO (08:24)
[2023-11-03] MEDS: SACUBITRIL/VALSARTAN 24-26 MG TABLET 1 TAB PO ×2 (08:24→21:27)
[2023-11-03] MEDS: POTASSIUM CHLORIDE 20 MEQ ER TABLET PO ×2 (08:24→16:52)
[2023-11-03] MEDS: FAMOTIDINE 20 MG TABLET PO ×2 (08:24→21:25)
[2023-11-03] MEDS: METOPROLOL TARTRATE 50 MG TAB 100 MG PO ×2 (08:24→21:25)
[2023-11-03] MEDS: ROSUVASTATIN 20 MG TABLET PO (08:25)
[2023-11-03] MEDS: CYANOCOBALAMIN 1,000 MCG TABLET 1000 MCG PO (08:25)
[2023-11-03] MEDS: rOPINIRole HCL 0.5 MG TABLET PO ×3 (08:25→16:52)
[2023-11-03] MEDS: FOLIC ACID 1 MG TABLET PO (08:25)
[2023-11-03] MEDS: SERTRALINE HCL 50 MG TABLET 100 MG PO (08:25)
[2023-11-03] MEDS: GABAPENTIN 300 MG CAPSULE PO ×3 (08:25→16:51)
--- NOTE | 2023-11-03 11:45 | PC.NURSE ---
Patient's blood pressure on soft side. Patient states she feels very tired. See VS. ALFONSO Chapa and [facility] aware. New orders from Cardio.
[2023-11-03] MEDS: RIVAROXABAN 20 MG TABLET PO (16:51)
[2023-11-03] MEDS: PRAMIPEXOLE 1 MG TABLET PO (21:26)
[2023-11-04] VITALS (15 sets, daily range): BP systolic 90–118; BP diastolic 56–91; PULSE 65–83; RESP 16–24; TEMP 36.2–37.1; O2SAT 92–100
[2023-11-04 05:27] LABS: Alanine Aminotransferase 23 U/L (6-35); Albumin Level 3.4 g/dL (3.5-5.1); Alkaline Phosphatase 45 U/L (38-126); Aspartate Amino Transferase 47 U/L (14-36); Bilirubin,Total 1.2 mg/dL (0.2-1.3); Blood Urea Nitrogen 37 mg/dL (7-17); Calcium 8.6 mg/dL (8.4-10.2); Carbon Dioxide > 40 mmol/L (22-30); Chloride 95 mmol/L (98-107); Estimated CRCL calculation 47 ml/min; Estimated Glomerular Filt Rate 54; Glucose 96 mg/dL (65-110); Potassium 4.6 mmol/L (3.4-5.0); Sodium 138 mmol/L (137-145)
--- NOTE | 2023-11-04 08:09 | P.PNCA_ITS ---
Progress Note: A&P Assessment and Plan (1) Atrial fibrillation with RVR: Code(s): I48.91 - Unspecified atrial fibrillation Status: Acute (2) Chronic HFrEF (heart failure with reduced ejection fraction): Code(s): I50.22 - Chronic systolic (congestive) heart failure Status: Acute Plan 77-year-old lady with history of coronary disease some LV dysfunction and chronic atrial fibrillation. The patient presented with a decompensation in CHF which was fairly mild. She seems to be euvolemic today. From my perspective discharge to home is reasonable. Following Dr. Hernandez departure from our practice she has been transitioned to follow with Dr. Jimenez. That is already arranged in the office. Juan David Khan MD [facility] Subjective Date/time seen: Date of service: 11/04/23 08:09 Interval history: Follow-up visit in this 77-year-old lady with: History of coronary disease and ischemic LV dysfunction as well as chronic atrial fibrillation. Patient presented to the hospital several days ago with mild decompensation of congestive heart failure. Appears to have improved relatively quickly with intravenous furosemide/diuresis. Her ventricular response to atrial fibrillation was accelerated upon admission. It is now once again well controlled. This patient was sleeping comfortably in bed when I came in the room to see her upon awakening offers no complaints. Says her breathing feels essentially back to baseline and is wondering if she can be discharged Exam Const: General: comfortable and no acute distress Other: Supine in bed wearing her CPAP mask upon awakening is comfortable HENMT: Face/Nose/Sinus: Normal nares present and no epistaxis Mouth: Yes moist mucous membranes Eyes: Sclera: sclerae normal Pupils: Equal, round and reactive pupils present Neck: Neck: supple and no JVD Carotids: no bruits Resp: Auscultation: clear to auscultation bilaterally and lung sounds not diminished Other: No chest wall tenderness Cardio: Rate: regular rate Rhythm: regular rhythm Heart sounds: no gallops, no murmurs and no rubs GI: Auscultation: normal bowel sounds Skin: General skin exam: normal color, rashes and/or lesions noted and no erythema Other: Warm Neuro: Cranial nerves: Yes Equal, round and reactive pupils present Speech: normal speech Other: No obvious focal deficit or facial asymmetry Extrem: General: edema bilateral Other: Normal capillary refills Intact distal pulses. Objective Data Vital Signs Vital Signs: Vital Signs - 24 hr 11/03/23 08:24 11/03/23 10:00 11/03/23 11:13 Temperature 36.6 C Pulse Rate 72 88 76 Respiratory Rate 20 Blood Pressure 96/56 L Pulse Oximetry 97 Oxygen Delivery Oxygen Flow Rate Fraction of Inspired Oxygen 11/03/23 12:00 11/03/23 13:46 11/03/23 16:00 Temperature 37.2 C Pulse Rate 76 76 73 Respiratory Rate 24 H Blood Pressure 101/56 L Pulse Oximetry 98 Oxygen Delivery Oxygen Flow Rate Fraction of Inspired Oxygen 11/03/23 16:00 11/03/23 18:00 11/03/23 19:43 Temperature 37.2 C Pulse Rate 86 78 79 Respiratory Rate 22 H Blood Pressure 124/76 Pulse Oximetry 98 Oxygen Delivery Oxygen Flow Rate Fraction of Inspired Oxygen 11/03/23 21:25 11/03/23 20:00 11/03/23 23:52 Temperature 37.1 C Pulse Rate 83 83 84 Respiratory Rate 22 H 24 H Blood Pressure 115/49 L Pulse Oximetry 98 98 Oxygen Delivery Nasal Cannula Oxygen Flow Rate 4 Fraction of Inspired Oxygen 11/03/23 20:00 11/03/23 22:00 11/03/23 22:30 Temperature Pulse Rate 92 81 90 Respiratory Rate 20 Blood Pressure Pulse Oximetry 93 Oxygen Delivery BiPAP Oxygen Flow Rate Fraction of Inspired Oxygen 11/04/23 01:11 11/04/23 00:00 11/04/23 00:00 Temperature Pulse Rate 69 69 83 Respiratory Rate 16 16 Blood Pressure Pulse Oximetry 96 96 Oxygen Delivery BiPAP BiPAP Oxygen Flow Rate Fraction of Inspired Oxygen 35 11/04/23 02:22 11/04/23 04:00 11/04/23 04:00 Temperature Pulse Rate 73 73 76 Respiratory Rate 16 Blood Pressure Pulse Oximetry 96 Oxygen Delivery BiPAP Oxygen Flow Rate Fraction of Inspired Oxygen 35 11/04/23 04:42 11/04/23 05:00 11/04/23 06:18 Temperature 37.1 C Pulse Rate 65 69 65 Respiratory Rate 24 H 17 Blood Pressure 118/56 L Pulse Oximetry 98 97 Oxygen Delivery BiPAP Oxygen Flow Rate Fraction of Inspired Oxygen Intake/Output Intake/Output: Intake & Output 11/01/23 11/02/23 11/03/23 11/04/23 23:59 23:59 23:59 23:59 Intake Total 1200 700 300 Output Total 0 2400 200 400 Balance 0 -1200 500 -100 Meds/Results Medications: Active Medications Generic Name Dose Route Start Last Admin Trade Name Freq PRN Reason Stop Dose Admin Acetaminophen 650 mg 11/01/23 21:45 Acetaminophen 325 Mg Tablet PO Q4H PRN Mild Pain (1-3) Or Fever Albuterol 2.5 mg 11/01/23 21:45 Albuterol Sulfate Neb 2.5 Mg/3 Ml Inh INHALATION BID PRN Shortness Of Breath Cyanocobalamin 1,000 mcg 11/02/23 09:00 11/03/23 08:25 Cyanocobalamin 1,000 Mcg Tablet PO 1,000 mcg QAM ELANA Administration Famotidine 20 mg 11/02/23 09:00 11/03/23 21:25 Famotidine 20 Mg Tablet PO 20 mg Q12HR ELANA Administration Folic Acid 1 mg 11/02/23 09:00 11/03/23 08:25 Folic Acid 1 Mg Tablet PO 1 mg DAILY ELANA Administration Furosemide 40 mg 11/04/23 09:00 Furosemide 40 Mg Tablet PO DAILY ELANA Gabapentin 300 mg 11/02/23 09:00 11/03/23 16:51 Gabapentin 300 Mg Capsule PO 300 mg TID ELANA Administration Loperamide HCl 2 mg 11/01/23 21:54 Loperamide Hcl 2 Mg Capsule PO Q2H PRN Diarrhea Metoprolol Tartrate 100 mg 11/01/23 22:05 11/03/23 21:25 Metoprolol Tartrate 50 Mg Tab PO 100 mg Q12HR ELANA Administration Perflutren Lipid Microsphere 0 ml 11/01/23 18:24 Perflutren Lipid Microspheres 1.5 Ml Vial Diluted To 10 Ml Total Volume IV PUSH 11/04/23 18:24 ONCE PRN adequate visualization Protocol Potassium Chloride 20 meq 11/02/23 09:00 11/03/23 16:52 Potassium Chloride 20 Meq Er Tablet PO 20 meq BID ELANA Administration Pramipexole Dihydrochloride 1 mg 11/02/23 21:00 11/03/23 21:26 Pramipexole 1 Mg Tablet PO 1 mg HS ELANA Administration Rivaroxaban 20 mg 11/02/23 17:00 11/03/23 16:51 Rivaroxaban 20 Mg Tablet PO 20 mg DAILY@1700 ELANA Administration Ropinirole HCl 0.5 mg 11/01/23 21:55 11/03/23 16:52 Ropinirole Hcl 0.5 Mg Tablet PO 0.5 mg TID ELANA Administration Rosuvastatin Calcium 20 mg 11/02/23 09:00 11/03/23 08:25 Rosuvastatin 20 Mg Tablet PO 20 mg DAILY ELANA Administration Sacubitril/Valsartan 1 tab 11/01/23 21:55 11/03/23 21:27 Sacubitril/Valsartan 24-26 Mg Tablet PO 1 tab Q12HR ELANA Administration Sertraline HCl 100 mg 11/02/23 09:00 11/03/23 08:25 Sertraline Hcl 50 Mg Tablet PO 100 mg QAM ELANA Administration Radiology Results: ITS Impressions Chest X-Ray 11/01/23 12:29 Impression: Mild bibasilar pulmonary edema and/or chronic interstitial change. Chest CTA 11/01/23 14:51 IMPRESSION: 1. No pulmonary embolus. Sensitivity is mildly decreased by motion artifact. 2. Diffuse lung disease, likely moderate pulmonary edema. Labs Labs: Laboratory Results - last 24 hr 11/04/23 04:33 Sodium 138 Potassium 4.6 Chloride 95 L Carbon Dioxide > 40 H Anion Gap BUN 37 H Creatinine 1.00 Estim Creat Clear Calc 47 Estimated GFR 54 L Glucose 96 Calcium 8.6 Total Bilirubin 1.2 AST 47 H ALT 23 Alkaline Phosphatase 45 Total Protein 6.0 L Albumin 3.4 L
[2023-11-04] MEDS: GABAPENTIN 300 MG CAPSULE PO ×2 (08:40→12:26)
[2023-11-04] MEDS: METOPROLOL TARTRATE 50 MG TAB 100 MG PO (08:40)
[2023-11-04] MEDS: FUROSEMIDE 40 MG TABLET PO (08:41)
[2023-11-04] MEDS: SACUBITRIL/VALSARTAN 24-26 MG TABLET 1 TAB PO (08:41)
[2023-11-04] MEDS: FOLIC ACID 1 MG TABLET PO (08:41)
[2023-11-04] MEDS: FAMOTIDINE 20 MG TABLET PO (08:41)
[2023-11-04] MEDS: CYANOCOBALAMIN 1,000 MCG TABLET 1000 MCG PO (08:41)
[2023-11-04] MEDS: ROSUVASTATIN 20 MG TABLET PO (08:41)
[2023-11-04] MEDS: rOPINIRole HCL 0.5 MG TABLET PO ×2 (08:41→12:26)
[2023-11-04] MEDS: SERTRALINE HCL 50 MG TABLET 100 MG PO (08:41)
[2023-11-04] MEDS: POTASSIUM CHLORIDE 20 MEQ ER TABLET PO (08:41)
--- NOTE | 2023-11-04 14:18 | PM.DS ---
DS: Admitting Diagnosis Discharge Date 11/04/23 Admitting Diagnosis 1) Chronic heart failure with reduced ejection fraction 2) Atrial Fibrillation With RVR 3) Anemia 4) CKD 5) Benign HTN DS: Discharge Diagnosis Discharge Diagnosis (1) Acute hypoxic respiratory failure: Code(s): J96.01 - Acute respiratory failure with hypoxia Status: Acute Assessment and Plan: - Likely related to CHF exacerbation. - Currently at baseline O2 @4L/NC per home dose. - Continue to monitor closely for respiratory distress. 11/04/23: Date of discharge - Pt's overall respiratory function has improved and she is now stable on her home dose of supplemental oxygen at 4L per NC. She has been evaluated by Cardiology and recommendations have been made. She is stable for discharge to home as she has also been cleared by PT. (2) Chronic HFrEF (heart failure with reduced ejection fraction): Code(s): I50.22 - Chronic systolic (congestive) heart failure Status: Acute Assessment and Plan: - Continue IV lasix with strict I & O's. - Daily weights. - 2D ECHO pending. - Continue Entresto. - Associate Professor Of Radiology following- recommendations reviewed: Change Lasix to 40 mg p.o. b.i.d. Continue Entresto 24-26 p.o. b.i.d. Metoprolol tartrate 100 mg b.i.d. Continue oral anticoagulation with Xarelto and follow up CBC Limited echocardiogram for evaluation of LV function 11/04/23: Date of discharge - ECHO showed Mild left ventricular enlargement with global systolic dysfunction and EF of 40%. Compared with the previous echo from 01/2023, the pt is now in atrial fib and the LVSF is reduced. She has been evaluated by Cardiology and they believe she is stable for discharge to follow up with Dr. Jimenez as Dr. Hernandez has left practice. No new recommendations for changing of medications made by Cardiology. (3) Atrial fibrillation: Qualifiers: Atrial fibrillation type: unspecified chronic Qualified Code(s): I48.20 - Chronic atrial fibrillation, unspecified Code(s): I48.91 - Unspecified atrial fibrillation Status: Acute Assessment and Plan: - Rate well controlled. - Appears stable. - Continue metoprolol and rivaroxaban. 11/04/23: Date of discharge - Continue home medications. (4) Physical deconditioning: Code(s): R53.81 - Other malaise Status: Acute Assessment and Plan: - PT eval and treatment. - Fall precautions. 11/04/23: Date of discharge - PT evaluated and has deemed pt stable for discharge. She is discharged to home at this time in stable condition. (5) Obstructive sleep apnea: Code(s): G47.33 - Obstructive sleep apnea (adult) (pediatric) Status: Chronic Assessment and Plan: - Continue CPAP bedtime. 11/04/23: Date of discharge - Continue home CPAP at normal settings. (6) COPD with emphysema: Qualifiers: Emphysema type: unspecified Qualified Code(s): J43.9 - Emphysema, unspecified Code(s): J43.9 - Emphysema, unspecified Status: Chronic Assessment and Plan: - stable- continue to monitor. - Continue bronchodilators and supplemental O2. 11/04/23: Date of discharge - Continue home meds and supplemental oxygen as previous taken. (7) Hx of non-ST elevation myocardial infarction (NSTEMI): Code(s): I25.2 - Old myocardial infarction Status: Chronic Assessment and Plan: - Continue metoprolol and statin. - Takes Apixaban for anticoagulation. (8) Chronic respiratory failure with hypoxia: Code(s): J96.11 - Chronic respiratory failure with hypoxia Status: Chronic Assessment and Plan: - Appears stable. - Continue supplemental O2, currently at baseline home O2 4L/NC for sats > 90 %. 11/04/23: Date of discharge - Continue home meds and supplemental Oxygen. DS: Summary Hospital Course Reason for hospitalization: Dyspnea Hospital Course: This very pleasant 77 year old female pt with PMH significant of HFrEF, COPD, and A-fib presented and was subsequently admitted to the hospital on 11/01/23 after developing increased dyspnea. She was admitted to the hospital requiring BiPap for respiratory support and was found to be in a mild exacerbation of Heart failure. She was diuresed and had an ECHO. The pt was evaluated by Cardiology who advised that during her admission she has had overall interval improvement in her cardiac function and today appears euvolemic. She has also returned to her baseline respiratory function and she is back on her 4L NC supplemental oxygen. She has been evaluated by therapies and is stable for discharge to home at this time in stable condition without any further decline, complaints or new symptoms. Status at Discharge Functional status at discharge: uses cane/walker Overall status at discharge: patient is back to baseline Time Spent with Patient Time attestation: Total time spent providing and/or coordinating discharge services: Time spent: Greater than 30 minutes Specific discharge activities: Discharge instructions, medications and follow up Exam Narrative: General: Atraumatic, PERRL, non-icteric, moist mucus membranes. Neck: Supple. Pulmonary: Crackles to josé. bases with some scattered wheezing posteriorly. Cardiopulmonary: regularly irregular. GI: Abdomen soft, non-tender, +ve bowel sounds X4 quadrants. Skin: Warm and dry, no rash or lesions noted. Extremities: Trace edema to josé. LE, Pedal and radial pulses 2+. Neuro: Well oriented. CN II-XII grossly intact. Psych; Pleasant and co-operative, judgement and insignt intact. DS: Data Data Completed and Pending Completed studies during hospitalization: ITS Impressions Chest X-Ray 11/01/23 12:29 Impression: Mild bibasilar pulmonary edema and/or chronic interstitial change. Chest CTA 11/01/23 14:51 IMPRESSION: 1. No pulmonary embolus. Sensitivity is mildly decreased by motion artifact. 2. Diffuse lung disease, likely moderate pulmonary edema. Labs on day of discharge: Labs from last 24 hours 11/04/23 04:33 Sodium 138 Potassium 4.6 Chloride 95 L Carbon Dioxide > 40 H Anion Gap BUN 37 H Creatinine 1.00 Estim Creat Clear Calc 47 Estimated GFR 54 L Glucose 96 Calcium 8.6 Total Bilirubin 1.2 AST 47 H ALT 23 Alkaline Phosphatase 45 Total Protein 6.0 L Albumin 3.4 L Discharge Plan Discharge Attending physician on discharge: Edwige Clemente Consulting providers: Johnathan Ornelas Discharging Clinician: Edwige Clemente Anticipated Discharge Date/Time: 11/04/23 14:32 Patient Disposition: Home, Self-Care Activity: as tolerated Diet: heart healthy Discharge Instructions: Thank you for allowing us to evaluate and treat you during your hospitalization. Your overall condition has improved and you are stable for discharge to home now. Please continue all medications as ordered previously and follow up with Dr. Jimenez from Cardiology for further management. Patient Instructions: Antibiotic Form, Heart Failure (DC) Stand Alone Forms: General Discharge Information Follow-up/Referrals: Meagan Yusuf MD [Primary Care Provider] - Call for Appointment Radha Jimenez MD [Physician] - Discharge Medications: Continued folic acid 1 mg tablet 1 mg PO DAILY albuterol sulfate 2.5 mg /3 mL (0.083 %) solution for nebulization 2.5 mg INHALATION BID PRN (Reason: Shortness Of Breath) Qty: 90 2RF Hold Instructions: Patient no longer taking rosuvastatin 20 mg tablet 20 mg PO DAILY loperamide [Anti-Diarrheal (loperamide)] 2 mg Capsule 4 mg PO DAILY rivaroxaban 20 mg Tablet 20 mg PO DAILY Rx Instructions: must administer with evening meal furosemide [Lasix] 40 mg tablet 40 mg PO DAILY Hold Instructions: Hold -resume when okay with the provider acetaminophen 325 mg Tablet 650 mg PO Q4H PRN (Reason: Mild Pain (1-3) Or Fever) Qty: 30 0RF famotidine 20 mg Tablet 20 mg PO Q12HR Qty: 30 0RF ipratropium-albuterol 0.5 mg-3 mg(2.5 mg base)/3 mL Solution For Nebulization 3 ml inhalation [id number] Qty: 90 0RF Rx Instructions: x 3 days then change to as needed if no further wheezing potassium chloride 10 mEq tablet extended release 20 meq PO BID metoprolol tartrate 25 mg tablet 100 mg PO Q12HR Entresto 24-26 mg tablet 1 tablet PO Q12HR pramipexole 1 mg tablet 1 mg PO HS (DME) nebulizers Misc See Rx Instructions .Route Qty: 1 0RF Rx Instructions: As directed sertraline 100 mg tablet 100 mg PO QAM Qty: 90 0RF Rx Instructions: TAKE 1 TABLET BY MOUTH DAILy Ozempic 0.25 mg or 0.5 mg (2 mg/3 mL) pen injector 0.5 mg subcut WEEKLY Qty: 3 10RF Rx Instructions: Takes on balsalazide 750 mg capsule See Rx Instructions .ROUTE .COMPLEX Qty: 270 1RF Dose Instruction: TAKE 3 CAPSULES BY MOUTH THREE TIMES DAILY Rx Instructions: TAKE 3 CAPSULES BY MOUTH THREE TIMES DAILY gabapentin 300 mg capsule 300 mg PO TID Qty: 90 0RF cyanocobalamin (vitamin B-12) [Vitamin B-12] 1,000 mcg tablet 1,000 mcg PO QAM 90 Days Qty: 90 3RF ropinirole 0.5 mg tablet 0.5 mg PO TID Qty: 270 1RF Date of admission: 11/02/23 09:05 Primary Care Provider: Meagan Yusuf Admitting Provider: Maddi Bahena Attending physician on admission: Edwige Clemente Condition: Stable Quality VTE Prophylaxis VTE prophylaxis: pharmacologic ordered (xarelto) Hospitalist MIPS Heart Failure (Exclusion) Patient has history of Heart Transplant or Left Ventricular Assistive Device?: No IF YES, STOP HERE Heart Failure (Qualifier) Patient has current or prior documentation of LVEF less than or equal to 40%, or mod/servere depressed LVSF?: Yes IF NO, STOP HERE If Yes, Heart Failure (Qualifier) Patient was prescribed or already taking an Angiotensin-Converting Enzyme (ADDIE) Inhibitor, or Antiotensin Receptor David (ARB): Yes Patient was prescribed or already taking bisoprolol, carvedilol, or sustained release metoprolol succinate: Yes
== END 2023-11-04 16:28 | disposition home or self-care (01) | DRG 291 ==
LOC: ANHED 12:15 → ANHIMU 17:41
PROVIDERS: Emergency Medicine; Nurse Practitioner Adult Health; Student in an Organized Health Care Education/Training Program; Admitting Provider Internal Medicine; Emergency Provider Physician Assistant; PCP Family Medicine; Visit Provider Nurse Practitioner Adult Health
DX: I13.0 Hypertensive heart and chronic kidney disease with heart failure and stage 1 through stage 4 chronic kidney disease, or unspecified chronic kidney disease (principal); I50.23 Acute on chronic systolic (congestive) heart failure; J96.21 Acute and chronic respiratory failure with hypoxia; N17.9 Acute kidney failure, unspecified; I48.20 Chronic atrial fibrillation, unspecified; G25.81 Restless legs syndrome; G62.9 Polyneuropathy, unspecified; E78.2 Mixed hyperlipidemia; N18.9 Chronic kidney disease, unspecified; M50.13 Cervical disc disorder with radiculopathy, cervicothoracic region; R91.8 Other nonspecific abnormal finding of lung field; J43.9 Emphysema, unspecified; R53.81 Other malaise; D64.9 Anemia, unspecified; G47.33 Obstructive sleep apnea (adult) (pediatric); Z96.611 Presence of right artificial shoulder joint; Z96.641 Presence of right artificial hip joint; I25.2 Old myocardial infarction; Z86.16 Personal history of COVID-19; Z90.49 Acquired absence of other specified parts of digestive tract; Z87.891 Personal history of nicotine dependence; Z99.81 Dependence on supplemental oxygen
CPT/HCPCS: 36415; 36600; 71046; 71275; 80053; 82803; 82805; 83880; 84484; 85025; 85055; 85380; 93005; 93306; 94002; 94003; 94640; 96374; 96375; 96376; 97161; 97165; 99285; A9270; G0378; J1940; J2919; Q9967

== ENCOUNTER 2023-11-29 15:33 | Outpatient (CLI) | payer MEDICARE, SELFPAY ==
--- NOTE | ~2023-11-29 | MM_ITS ---
EXAMINATION: MM screening maria ines BI w maryam HISTORY: Screening TECHNIQUE: Craniocaudal and mediolateral oblique 3-D tomosynthesis images were obtained and synthetic 2-D images were generated. CAD analysis was submitted and interpreted. COMPARISON: Comparison to multiple prior studies sequentially, with oldest reviewed study dated 12/24. BREAST PARENCHYMAL COMPOSITION: Not dense: There are scattered areas of fibroglandular density. FINDINGS: There is no evidence of suspicious mass, calcification, or architectural distortion to sugg est malignancy in either breast. There has been no suspicious interval change. IMPRESSION: 1. No mammographic evidence of malignancy. 2. Recommend routine screening mammography in one year. BI-RADS Category 1: Negative Reviewed, dictated and finalized at location B.
== END 2023-11-29 15:34 | disposition home or self-care (01) ==
LOC: ANHIMG 15:35
PROVIDERS: PCP Family Medicine; Visit Provider Family Medicine
DX: Z12.31 Encounter for screening mammogram for malignant neoplasm of breast (principal)
CPT/HCPCS: 77063; 77067

== ENCOUNTER 2024-05-05 14:52 | Outpatient (CLI) | payer MEDICARE, SELFPAY ==
--- OUTSIDE RECORDS SUMMARY | 2024-05-05 15:38 | XMS_ITS | Encounter Summary ---
Author Organization [employer] Address 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
--- OUTSIDE RECORDS SUMMARY | 2024-05-05 15:38 | XMS_ITS | Referral Summary ---
Author Organization [facility] Address [address] [place] [id number] Care Team Providers Care Motor And Controls Tester Name Role Phone Meagan Yusuf MD Primary Care Provider + Encounters Date Type Department Care Team Description 05/01/2024 Telephone [facility] Cardiology [address] [place] [address] Radha Jimenez MD Med Refill from Last 3 Months Allergies Active Allergy Reactions Criticality Noted Date Comments Penicillin G Rash Medium 09/26/2016 Thiopental Sodium Nausea And Vomiting Medium 7 Medications balsalazide (COLAZAL) 750 mg capsule Take 3 capsules (2,250 mg total) by mouth 3 (three) times a day Active loperamide (IMODIUM) 2 mg capsule Take 2 capsules (4 mg total) by mouth daily Active pramipexole (MIRAPEX) 1 mg tablet Take 1 tablet (1 mg total) by mouth nightly 1 Active gabapentin (NEURONTIN) 300 mg capsule Take 1 capsule (300 mg total) by mouth 3 (three) times a day Active rosuvastatin (CRESTOR) 20 mg tablet Take 1 tablet (20 mg total) by mouth daily Active sertraline (ZOLOFT) 100 mg tablet Take 1 tablet (100 mg total) by mouth daily 1 Active cholecalciferol (VITAMIN D-3) 25 mcg (1,000 unit) tablet Take 2 tablets (2,000 Units total) by mouth daily Active diphenhydrAMINE (BENADRYL) 25 mg capsule Take 1 tablet/capsul e (25 mg total) by mouth nightly as needed for itching Active folic acid (FOLVITE) 1 mg tablet Take 1 tablet (1,000 mcg total) by mouth daily 3 Active vitamin B-1 100 mg tablet Take 1 tablet (100 mg total) by mouth every morning 3 Active QUEtiapine (SEROquel) 25 mg tablet Take 1 tablet (25 mg total) by mouth nightly 0 3 Active albuterol 2.5 mg /3 mL (0.083 %) nebulizer solution USE 1 VIAL VIA NEBULIZER TWICE DAILY NEEDED FOR SHORTNESS OF BREATH 3 Active Xarelto 20 mg tablet TAKE 1 TABLET(20 MG) BY MOUTH DAILY WITH DINNER 30 tablet 11 4 Active famotidine (PEPCID) 20 mg tablet Take 1 tablet (20 mg total) by mouth 2 (two) times a day Active furosemide (LASIX) 40 mg tablet Take 1 tablet (40 mg total) by mouth daily 4 Active metoprolol (LOPRESSOR) 100 mg tablet Take 1 tablet (100 mg total) by mouth 2 (two) times a day 4 Active rOPINIRole (REQUIP) 0.5 mg tablet Take by mouth 3 (three) times a day 4 Active Ozempic 1 mg/dose (4 mg/3 mL) pen injector injection 4 Active cyanocobalamin (Vitamin B-12) 1,000 mcg tablet Take 1 tablet (1,000 mcg total) by mouth every morning 4 Active potassium chloride ER 10 mEq CR tablet Take 2 tablet/capsul e (20 mEq total) by mouth 2 (two) times a day 4 Active diltiazem LA (CARDIZEM LA) 180 mg 24 hr tablet Take 0.5 tablet po daily 45 tablet 1 4 Active sacubitriL-vals jacinda (Entresto) 24-26 mg tabletIndicatio ns:Chronic HFrEF (heart failure with reduced ejection fraction) (CMS/HCC) (HCC) TAKE 1 TABLET BY MOUTH IN THE MORNING AND IN THE EVENING 60 tablet 11 5 Active sacubitriL-vals jacinda (Entresto) 24-26 mg tabletIndicatio ns:Chronic HFrEF (heart failure with reduced ejection fraction) (CMS/HCC) (HCC) TAKE 1 TABLET BY MOUTH IN THE MORNING AND IN THE EVENING 60 tablet 11 4 05/01/19 25 Discontinu ed(Reorder ) Active Problems Problem Noted Date Diagnosed Date Heart failure with mildly re duced ejection fraction (HFmrEF) 01/15/2024 Chronic anticoagulation 07/18/2022 Persistent atrial fibrillation 02/20/2022 Noncompliance with medicatio n treatment due to intermittent use of medication 12/18/2021 Morbid (severe) obesity due to excess calories 0 07/05/2021 Labile hypertension 03/23/2021 Hypotension due to drugs 03/23/2021 Coronary artery disease invo lving [place] coronary artery of [place] heart without angina pectoris 02/10/2021 Mixed hyperlipidemia 02/10/2021 Chronic obstructive pulmonary disease 02/10/2021 Chronic respiratory failure with hypoxia (CMS/HC C) 02/10/2021 TRAVIS on CPAP 02/10/2021 Frequent falls 02/10/2021 Resolved Problems Problem Noted Date Diagnosed Date Resolved Date H/O cardiomyopathy 12/18/2021 Chronic heart failure with p reserved ejection fraction (CMS/HCC) 02/10/2021 01/15/2024 Social History Tobacco Use Types Packs/Day Years Used Date Smoking Tobacco: Former Cigarettes Q uit: 2010 Smokeless Tobacco: Never Tobacco Cessation:Counseling Given: Not Answered Comments Unknown Sex and Gender Information Value Date Recorded Sex Assigned at Not on file Legal 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 Gender Identity Not on file Sexual Orientation Not on file Last Filed Vital Signs Vital Sign Reading Time Taken Comments Blood Pressure 122/90 01/15/2024 10:29 AM CDT Pulse 117 01/15/2024 10:29 AM CDT Temperature - - Respiratory Rate - - Oxygen Saturation 95% 01/15/2024 10:29 AM CDT Inhaled Oxygen Concentration - - Weight 92.5 kg (204 lb) 01/15/2024 10:29 AM CDT Height 165.1 cm (5' 5 ) 01/15/2024 10:29 AM CDT Body Mass Index 33.95 01/15/2024 10:29 AM CDT Plan of Treatment Not on file Insurance MEDICARE [facility] [employer]ICARE [facility] [facility] Care Teams Motor And Controls Tester Relationship Specialty Start Date End Date Meagan Yusuf MD PCP - General Family Medicine 05/22/23
--- OUTSIDE RECORDS SUMMARY | 2024-05-05 15:38 | XMS_ITS | Continuity of Care Document ---
Author Organization [facility] Address [address] [place] [address] Phone Care Team Providers Care Box Office Manager Name Role Phone Guerrero Cho MD Unavailable [...] Copied on Encounter OFFICE/OUTPA TIENT VISIT EST [facility], [address] [place] [address], [address], tel:[phone] [facility] Chaitanya Status post reverse total arthroplasty of right shoulderAfter care following right shoulder joint replacement surgery 9 Marquis Masters. [address], [place], [place], [id number] . tel: [phone] [facility], [address] [place] [address], [address], tel:[phone] [facility] Chaitanya s/p reverse right shoulder (chief complaint) Status post reverse total arthroplasty of right shoulder 8 Marquis Masters. [address], [place], [place], [id number] . tel: [phone] [facility], [address] [place] [address], [address], tel:[phone] [facility] Other specific arthropathies , not elsewhere classified, right shoulder 8 Marquis Masters. [address], [place], [place], [id number] . tel: [phone] OFFICE/OUTPA TIENT VISIT EST [facility], [address] [place] [address], [address], [phone] [facility] Complete tear of right rotator cuffPrimary osteoarthriti s of right shoulder 0 8 Marquis Masters. [address], [place], [place], [id number] . tel: [phone] OFFICE/OUTPA TIENT VISIT EST [facility], [address] [place] [address], [address], [place] tel:[phone] [facility] [place] RT SHOULDER INJURY 7\ (chief complaint) Body mass index (BMI) 40.0-44.9, adultComplete tear of right rotator cuff 8 Sangita Abhinav. [address] [place] [address], [id number] . tel: [phone] Referring Provider: Juan David Patiño, [address] [place], [place], [address]. tel:[phone] OFFICE/OUTPA TIENT VISIT [facility], [address] [place] [address], [address], [place] tel:[phone] [facility] History of total right hip arthroplasty 8 Sangita La. [address] [place] [address], [id number] . tel: [phone] Referring Provider: Meagan Wren, PERMANENTLY CLOSED [address] [place], [place], [address]. tel:[phone] [facility], [address] [place] [address], [address], [place] tel:[phone] [facility] History of total right hip arthroplasty 7 Sangita La. [address] [place] [address], [id number] . tel: [phone] [facility], [address] [place] [address], [address], [place] tel:[phone] [facility] [place] R YANIRA 11/08/16 (chief complaint) History of total right hip arthroplasty 7 Mihcael Lemos. [address] [place] [address] [address], [place], [place], [id number] . tel: [phone] [facility], [address] [place] [address], [address], [phone] [facility] R YANIRA 11/08/16 (chief complaint) History of total right hip arthroplasty Sep-0 7 Michael Lemos. [address] [place] [address] [address], [place], [place], [id number] . tel: [phone] [facility], [address] [place] [address], [address], [place] tel:[phone] [facility] No Information Sangita La. [address] [place] [address], [id number] . tel: [phone] OFFICE/OUTPA TIENT VISIT EST [facility], [address] [place] [address], [address], tel:[phone] [facility] Follow Up of after right hip mri (chief complaint) Primary osteoarthriti s of right hipHip abductor tendinitis, right 7 Sangita La. [address] [place] [address], [id number] . tel: [phone] OFFICE/OUTPA TIENT VISIT [facility], [address] [place] [address], [address], [place] [phone] [facility] R hip (chief complaint) Body mass index (BMI) 38.0-38.9, adultPrimary osteoarthriti s of right hipHip abductor tendinitis, right 7 Sangita La. [address] [place] [address], [id number] . tel: [phone] Referring Provider: Kristel Villegas, [address], [place], [address]. tel:[phone] Family History Family Member Type Diagnosis Age At Onset Brother Problem (finding) Alive and well Immunizations Vaccine Date Status Comments Pneumo (2 yrs or older)(PPV) administered Source: Other Provider Payers Payer name Insurance type Covered constitution party ID Lela gong(s) Medicare E2 [id number] [place] Medicare Supplement E2 OT [id number] Social History Type Description Quantity Date [...]
--- OUTSIDE RECORDS SUMMARY | 2024-05-05 15:38 | XMS_ITS | Encounter Summary ---
Author Organization [employer] Address [address] [place] [address] Care Team Providers Care Rod Buster Helper Name Role Phone Juan David Yusuf MD Primary Care Provider [phone] Encounter Details Date Type Department Care Team (Late st Contact Info) Description 02/02/1999 Outpatient Historical [facility] Isatu Grant MD Social History Tobacco Use Types Packs/Day Years Used Date Smoking Tobacco: Never Assessed Comments Unknown Sex and Gender Information Value Date Recorded Sex Assigned at Not on file Legal Sex Female 3:33 AM MACHINE MILKER Gender Identity Not on file Sexual Orientation Not on file documented as of this encounter Plan of Treatment Not on file documented as of this encounter Visit Diagnoses Not on filedocumented in this encounter Care Teams Rod Buster Helper Relationship Specialty Start Date End Date Juan David Yusuf MD PCP - General Family Practice 01/14/18 documented as of this encounter
--- OUTSIDE RECORDS SUMMARY | 2024-05-05 15:38 | XMS_ITS | Encounter Summary ---
Author Organization [employer] Address [address] [place] [address] Care Team Providers Care Oriental Rug Repairer Name Role Phone Juan David Yusuf MD Primary Care Provider [phone] Encounter Details Date Type Department Care Team (Late st Contact Info) Description 07/14/1999 Outpatient Historical [facility] Isatu Grant MD Social History Tobacco Use Types Packs/Day Years Used Date Smoking Tobacco: Never Assessed Comments Unknown Sex and Gender Information Value Date Recorded Sex Assigned at Not on file Legal Sex Female 3:33 AM MACHINE SET UP Gender Identity Not on file Sexual Orientation Not on file documented as of this encounter Plan of Treatment Not on file documented as of this encounter Visit Diagnoses Not on filedocumented in this encounter Care Teams Oriental Rug Repairer Relationship Specialty Start Date End Date Juan David Yusuf MD PCP - General Family Practice 01/14/18 documented as of this encounter
--- OUTSIDE RECORDS SUMMARY | 2024-05-05 15:38 | XMS_ITS | Clinical Summary ---
Author Organization [facility] Address [address] [place] [address] Phone Care Team Providers Care Proofreader Name Role Phone Juan David Yusuf MD Primary Care Provider [phone] Allergies Active Allergy Reactions Criticality Noted Date Comments Penicillin G Rash Medium 09/26/2016 Thiopental Sodium Nausea and Vomiting Medium 7 Medications aspirin (REGINO CHEWABLE) 81 mg Tablet, Chewable Take 81 mg by mouth daily. Active rosuvastatin (CRESTOR) 10 mg tablet Take 10 mg by mouth daily . Active loperamide (IMODIUM) 2 mg capsule Take 4 mg by mouth daily . Active mesalamine (APRISO) 0.375 gram Extended Release 24 hour capsule Take 1.125 Grams by mouth 3 times daily . Active furosemide (LASIX) 40 mg tablet Take 40 mg by mouth daily. Active sertraline (ZOLOFT) 50 mg tablet Take 50 mg by mouth daily. Active gabapentin (NEURONTIN) 300 mg capsule Take 300 mg by mouth 3 times daily. Active albuterol HFA 90 mcg inhaler Take 2 Puffs by inhalation 2 times daily. Active fluticasone-salme terol (ADVAIR DISKUS) 250-50 mcg/dose disk inhaler Take 1 Puff by inhalation 2 times daily. Active potassium chloride (KLOR-CON) 10 mEq Extended Release tablet Take 10 mEq by mouth 3 times daily with meals. Active cholecalciferol, vitamin D3, 1,000 unit Take 2,000 Units by mouth daily . Active melatonin 5 mg Tablet Take 10 mg by mouth nightly as needed. Active albuterol (PROVENTIL,VENTOL IN) 2.5 mg/0.5 mL Solution for Nebulization Take 2.5 mg by inhalation 2 times daily. Active oxyCODONE-acetami nophen (PERCOCET) 10-325 mg Tablet Take 1 Tablet by mouth every 4 hours as needed for Pain, Severe. Max Daily Amount: 6 Tablets 40 Tablet 7 Active celecoxib (CeleBREX) 200 mg capsule Take 1 Capsule (200 mg) by mouth daily with breakfast. 30 Capsule 7 Active PHARMACY TEST CLAIM PHARMACY TEST CLAIM 1 mg 7 Active diphenhydrAMINE (BENADRYL) 25 mg tablet Take 25 mg by mouth nightly as needed for Allergies. Active balsalazide (COLAZAL) 750 mg Capsule Take 2,250 mg by mouth 3 times daily. Active HYDROcodone-aceta minophen (NORCO) 10-325 mg Tablet Take 1 Tablet by mouth every 4 hours as needed for Moderate pain. Max Daily Amount: 6 Tablets 42 Tablet 01/30/2018 3:41 PM BOX FINISHER 8 Active Active Problems Problem Noted Date Diagnosed Date TRAVIS (obstructive sleep apnea) 11/08/2016 Crohn's disease 11/08/2016 Hyperlipidemia 11/08/2016 Morbid obesity 11/08/2016 Chronic obstructive pulmonary disease 11/08/2016 Primary osteoarthritis of right hip 11/07/2016 Hx of Crohn's disease Acute respiratory failure with hypoxia Immunizations Immunization Administration Dates Next Due Influenza Vaccine High Dose 65+ Yrs IM 8 Family History Medical History Relation Name Comments Heart Disease Father Cancer Mother Other Mother dementia Cancer Sister Relation Name Status Comments Father Mother Sister Social History Tobacco Use Types Packs/Day Years Used Date Smoking Tobacco: Former Cigarettes Q uit: 10/29/2010 Smokeless Tobacco: Former Alcohol Use Standard Drinks/Week Comments Yes 0 (1 standard drink = 0.6 oz pur e alcohol) social Comments No Sex and Gender Information Value Date Recorded Sex Assigned at Not on file Legal Sex Female 3:33 AM BOX FINISHER Gender Identity Not on file Sexual Orientation Not on file Last Filed Vital Signs Vital Sign Reading Time Taken Comments Blood Pressure 123/62 01/30/2018 12:28 PM BOX FINISHER Pulse 74 01/30/2018 12:28 PM BOX FINISHER Temperature 36.5 C (97.7 F) 01/30/2018 12:28 PM BOX FINISHER Respiratory Rate 10 01/30/2018 12:28 PM BOX FINISHER Oxygen Saturation 93% 01/30/2018 12:28 PM BOX FINISHER Inhaled Oxygen Concentration - - Weight 116.6 kg (257 lb) 01/28/2018 8:16 AM BOX FINISHER Height 167.6 cm (5' 6 ) 01/28/2018 8:16 AM BOX FINISHER Body Mass Index 41.48 01/28/2018 8:16 AM BOX FINISHER Plan of Treatment Health Maintenance Due Date Last Done Comments DTAP/TDAP/TD VACCINES (1 - Tdap) 12/21/1966 PNEUMOCOCCAL VACCINE 65+ YEARS (1 of 2 - PCV) 12/21/18 67 ZOSTER VACCINE (1 of 2) 12/21/1997 OSTEOPOROSIS SCREENING 12/21/2012 RSV VACCINE (60+ or ) (1 - 1-dose 75+ series) 12/21/2022 INFLUENZA VACCINE (#1) 2023 01/28/2018 Medical Devices Implanted Type Area Glazier Helper Device Identifier Shelf Expiration Date Model / Serial / Lot Shell Ringlc+ Pc 54mm [id number] - [id number] Implanted:Qty: 1 on 11/08/2016 by Abhinav Quesada MD at [facility] Hip Right: Hip [employer] [id number] 09/27/2026 [id number] / / [id number] Liner Arcomxl Rnglc Sz24 [id number] - [id number] Implanted:Qty: 1 on 11/08/2016 by Abhinav Quesada MD at [facility] Hip Right: Hip [employer] [id number] 10/01/2020 [id number] / / [id number] Stem Fem Echo Bmtrc Por Red Lat [id number] - [id number] Implanted:Qty: 1 on 11/08/2016 by Abhinav Quesada MD at [facility] Hip Right: Hip [employer] [id number] 04/11/2025 [id number] / / [id number] Head Modular Noskt 36mm -3mm [id number] - [id number] Implanted:Qty: 1 on 11/08/2016 by Abhinav Quesada MD at [facility] Hip Right: Hip [employer] [id number] 09/25/2026 [id number] / / [id number] Rsp Glenoid Head W Retaining Screw Neutral Sz 32mm Implanted:Qty: 1 on 01/27/2018 by Guerrero Cho MD at [facility] Other Right: Shoulder [employer] 12/05/2023 508-32-10 1 / / [id number] Small Socket Insert 32mm Semi Constrained E Plus Implanted:Qty: 1 on 01/27/2018 by Guerrero Cho MD at [facility] Other Right: Shoulder [employer] 11/29/2022 509-03-03 2 / / [id number] Humeral Stem Small Shell [id number] Implanted:Qty: 1 on 01/27/2018 by Guerrero Cho MD at [facility] Other Right: Shoulder [employer] 11/22/2023 533-10-10 8 / / [id number] Description:All [employer] Surgical shoulder components are processed on requisition,[id number]. Rsp Glenoid Baseplate Implanted:Qty: 1 on 01/27/2018 by Guerrero Cho MD at [facility] Screw Right: Shoulder [employer] [id number] 10/23/2023 508-32-20 4 / / [id number] Rsp Bone Screw Locking Sz 5.0mm 30mm Long Implanted:Qty: 1 on 01/27/2018 by Guerrero Cho MD at [facility] Screw Right: Shoulder [employer] 06/25/2023 506-03- 0 / / [id number] Rsp Bone Screw Locking Sz 5.0mm 22 Mm Long Implanted:Qty: 1 on 01/27/2018 by Guerrero Cho MD at [facility] Screw Right: Shoulder [employer] 08/17/2023 506-12 2 / / [id number] Bone Screw Rsp5.0x26mm Long Implanted:Qty: 1 on 01/27/2018 by Guerrero Cho MD at [facility] Screw Right: Shoulder [employer] 6 / / Rsp Bone Screw- Locking Implanted:Qty: 1 on 01/27/2018 by Guerrero Cho MD at [facility] Right: Shoulder [employer] 11/01/2023 506-03-11 [id number] Insurance MEDICARE PART A AND B BCBS SUPP RX A[employer] Medicare Part D RX [facility] Medicare Part D Advance Directives For more information, please contact: [phone] Documents on File Type Date Recorded Patient Vocational Coordinator Expl anation Advance Directive POA 02/04/2018 1:58 PM Advance Directive POA Advance Directive Living Will 01/14/2018 4:00 PM Advance Directive Living Will * Full Code (Latest Code Status on File) Date Activated Date Inactivated Comments 01/27/2018 12:16 PM 01/30/2018 6:54 PM * Full Code Date Activated Date Inactivated Comments 01/27/2018 6:00 AM 01/27/2018 12:16 PM * Full Code Date Activated Date Inactivated Comments 11/08/2016 11:18 AM 11/10/2016 5:50 PM * Full Code Date Activated Date Inactivated Comments 11/08/2016 7:30 AM 11/08/2016 11:18 AM * Full Code Date Activated Date Inactivated Comments 11/08/2016 6:44 AM 11/08/2016 7:30 AM Care Teams Proofreader Relationship Specialty Start Date End Date Juan David Yusuf MD PCP - General Family Practice 01/14/18
--- OUTSIDE RECORDS SUMMARY | 2024-05-05 15:38 | XMS_ITS | Clinical Summary ---
Author Organization [facility] Address [address] [place] [address] Care Team Providers Care Instructor Physical Name Role Phone Meagan Yusuf MD Primary Care Provider + Allergies Active Allergy Reactions Criticality Noted Date [...] drugs 03/23/2021 Coronary artery disease invo lving ho-chunk coronary artery of ho-chunk heart without angina pectoris 02/10/2021 Mixed hyperlipidemia 02/10/2021 Chronic obstructive pulmonary disease 02/10/2021 Chronic respiratory failure with hypoxia (CMS/HC C) 02/10/2021 TRAVIS on CPAP 02/10/2021 Frequent falls 02/10/2021 Resolved Problems Problem Noted Date Diagnosed Date Resolved Date H/O cardiomyopathy 12/18/2021 Chronic heart failure with p reserved ejection fraction (CMS/HCC) 02/10/2021 01/15/2024 Encounters Date Type Department Care Team Description 05/01/2024 Telephone [facility] [address] [place] [address] Radha Jimenez MD Med Refill from Last 3 Months Surgical History Surgery Date Site/Laterality Comments HYSTERECTOMY TOTAL SHOULDER REPLACEMENT Right HIP ARTHROPLASTY Medical History Medical History Date Comments [place], old CHF (congestive heart failure) (CMS/HCC) (HCC) Alcohol abuse Hypertension Depression Covid-19 Hyperlipidemia Sleep apnea Restless leg syndrome Family History Medical History Relation Name Comments Alzheimer's disease Mother Anemia Mother Arthritis Mother Mental illness Mother Cancer Sister 2 Relation Name Status Comments Brother Alive Father (Age 96) Mother (Age 92) Sister 1 Alive Sister 2 (Age 32) Social History Tobacco Use Types Packs/Day Years Used Date Smoking Tobacco: Former Cigarettes Q uit: 2010 Smokeless Tobacco: Never Tobacco Cessation:Counseling Given: Not Answered Comments Unknown Sex and Gender Information Value Date Recorded Sex Assigned at Not on file Legal Sex Female 4:29 PM GREIGE MENDER Gender Identity Not on file Sexual Orientation Not on file Obstetrics History Last Filed Vital Signs Vital Sign Reading [...] 01/15/2024 10:29 AM CDT Plan of Treatment Health Maintenance Due Date Last Done Comments Depression Screening 1945 Fall Risk Assessment 1945 Hepatitis C Screening 1945 Osteoporosis Screening-Bone Density Scan 1945 Hepatitis B Screening 12/21/1965 Well Visit 65+ 12/21/2012 Zoster Vaccine (2 of 3) 04/04/2015 02/07/2015 Covid-19 Vaccine (3 - 2023-2 5 season) 2023 06/15/2020, 05/24/2020 Influenza Vaccine (#1) 2023 , 03/05/2019, 01/28/2018, Additional history exists DTaP/Tdap/Td Vaccine (2 - Td or Tdap) 12/14/2029 12/15/2019 Pneumococcal vaccine 65+ Completed 05/08/2018, 12/24 Insurance MEDICARE [facility] MEDICARE [facility] Care Teams Instructor Physical Relationship Specialty Start Date End Date Meagan Yusuf MD PCP - General Family Medicine 05/22/23
--- OUTSIDE RECORDS SUMMARY | 2024-05-05 15:38 | XMS_ITS | Data Portability ---
Author Organization [place] - [facility] OFFICE Address [address] [place] [address] Care Team Providers Care Accounting Manager Assistant Controller Name Role Phone JAMILA PAVON Primary Care Provider Assessment Encounter Date Assessment Date Assessment LastModified by Organization Details LastModified Time 10/26/2020 10/26/2020 Discussed with patient findings, diagnosis, and prognosis. Discussed evaluation and treatment options including risks and benefits with patient, and patient expressed understanding. The following interventions were recommended: heart healthy low-fat, low-sodium diet, begin cardiac rehabilitation program,maintain appropriate weight, continue current medications, and medical follow-up as noted. [email or web address] Not available 10/26/2020 14:30:27 11/09/2020 11/09/2020 Discussed with patient findings, diagnosis, and prognosis. Discussed evaluation and treatment options including risks and benefits with patient, and patient expressed understanding. The following interventions were recommended: heart healthy low-fat, low-sodium diet, begin cardiac rehabilitation program,maintain appropriate weight, continue current medications, and medical follow-up as noted. [email or web address] Not available 11/07/2020 11:25:08 Plan of Treatment Reminders Order Date Submit Date Provider Last Modified By Organization Details Last Modified Time Details Appointments None recorded. Lab None recorded. Referral None recorded. Procedures None recorded. Surgeries None recorded. Imaging electrocard iogram 2020 021 [email or web address] Not available 14:35:30 electrocard iogram 2020 021 BRANDI Not available 17:10:42 Medication Orders aspirin 81 mg tablet,lamont yed release 2020 021 [place] [email or web address] [facility] #98663, [address] [place], [place], [id number], 14:35:37 clopidogrel 75 mg tablet 2020 [facility] #20402, [address] [place] [address], [id number], 14:35:38 rosuvastati n 20 mg tablet 2020 021 [facility] #53364, [address] [place] [address], [id number], 14:35:39 metoprolol succinate ER 25 mg tablet,exte nded release 24 hr 2020 [facility] #20382, [address] [place] [address], [id number], 14:35:39 potassium chloride ER 20 mEq tablet,exte nded release 2020 [facility] #12539, [address] [place] [address], [id number], 14:35:37 furosemide 40 mg tablet 2020 021 [facility] #80815, [address] [place] [address], [id number], 14:35:38 rosuvastati n 40 mg tablet 2020 021 [facility] #92875, [address] [place] [address], [id number], 12:58:37 lisinopril 5 mg tablet 2020 021 [facility] #57834, [address], [place], [id number], 12:58:39 spironolact one 25 mg tablet 2020 021 [facility] #79690, [address], [place], [id number], 12:58:59 Patient TargetsNo targets recorded. Patient Instructions Encounter Date Encounter Id Patient Instructions Last Modified By Organization Details Last Modified Time 10/26/2020 [id number] high cholesterol : care instructions [email or web address] Not available 10/26/2020 14:35:29 When You Want to Lose Weight: Care Instructions [email or web address] Not available 10/26/2020 14:35:30 sleep apnea: car e instructions [email or web address] Not available 10/26/2020 14:35:30 high blood pressure: care instructions [email or web address] Not available 10/26/2020 14:35:30 learning about high blood pressure [email or web address] Not available 10/26/2020 14:35:30 11/09/2020 [id number] high cholesterol : care instructions Not available 11/09/2020 12:58:27 When You Want to Lose Weight: Care Instructions [email or web address] Not available 11/09/2020 12:58:27 sleep apnea: car e instructions [email or web address] Not available 11/09/2020 12:58:27 high blood pressure: care instructions [email or web address] Not available 11/09/2020 12:58:27 learning about high blood pressure [email or web address] Not available 11/09/2020 12:58:27 Reason for Referral None Reported. Results Created Date Observation Date Name Description Value Unit Range Abnormal Flag Note LastModifiedBy Organization Detail LastModifiedTime 10/26/19 21 elect low del castillogr am No observ ation record ed. [email or web address] Sharif Bustamante MD [address], [place], [address], 10/26/2020 14:26:29 10/28/19 21 10/01/2020 , doppl er, venou s No observ ation record ed. [email or web address] Not Available 10/27 11:43:01 10/28/19 21 09/30/2020 US, echoc ardio gram No observ ation record ed. Not Available 10/27 12:19:15 10/28/19 21 10/01/2020 elect rocar diogr am No observ ation record ed. Not Available 10/27 12:55:58 10/28/19 21 09/30/2020 XR, chest , 1 view No observ ation record ed. Not Available 10/27 12:59:31 10/28/1910/03/[address] ment in coron z[place] arter y(s) for coron zuleika angio graph y; with left heart irais teriz ation inclu ding intra proce dural injec tion( s) for left ventr iculo graph y (PROC ) No observ ation record ed. [email or web address] Not Available 2020 13:24:48 11/08/19 21 11/07/2020 elect rocar diogr am No observ ation record ed. елена Bustamante MD [address], [place], [address], 12/05/2020 17:10:42 11/17/19 21 10/26/2020 elect rocar diogr am No observ ation record ed. Not Available 11/18 13:56:02 Result Notes Documentation Provider Name and Address Organization Details Recorded Time Lipid Panel, Blood : 10/28/20:Na 137,K 3.9,Cl 102,Co2 30,Glu 94,Bun 18,Cr 0.7,AST 33,ALT 11. 10/28/20:TC 190,TG 79,HDL 87,LDL 83. 10/28/20:WBC 5.4,RBC 3.83,HGB 11.4,HCT 36.7,PLT 108. Dominic Rodriguez [place], [place] - [facility] 11/14/2020 16:16:49 Lipid Panel, Blood : 10/28/20:Na 137,K 3.9,CL 102,CO2 30,Glu 94,Bun 18,Cr 0.7,AST 33,ALT 11. 10/28/20:TC 190,TG 79,HDL 87,LDL pending. Dominic beyer, [facility] 01/24/2021 13:55:17 Problems Name Problem SNOMED Code Status Onset Date Resolution Date Notes Provider Name and Address Organization Details Recorded Time Heart failure with reduced ejection fraction 231113964 Active 2020 Desmond beyer, [place] - [facility] 13:41:26 Essential hypertension 48489338 Active 2020 Desmond [place]yer, [place] - [facility] 13:48:17 Hyperlipidemia 96372550 Active 2020 Desmond beyer, [place] - [facility] 13:48:29 Obstructive sleep apnea syndrome 68741350 Active 2020 Desmond beyer, [place] - [facility] 13:48:37 Subsequent non-ST segment elevation myocardial infarction 015080684 Active 2020 Desmond beyer, [place] - [facility] 13:59:24 Obesity 601271474 Active 2020 Desmond beyer, [place] - [facility] 14:26:10 Problem Notes None recorded. Procedures Surgical History None recorded. Imaging Results Imaging Date Name Status LastModified by Organization Details LastModified Time 10/25/2020 electrocardiogram completed [email or web address] Sharif Basilio MD [address], [place], [address], 10/26/2020 14:26:29 10/01/2020 US, doppler, venous completed [email or web address] not available 10/27/2020 11:43:01 09/30/2020 US, echocardiogram completed Inform ation not available 10/27/2020 12:19:15 10/01/2020 electrocardiogram completed [email or web address] Informa tion not available 10/27/2020 12:55:58 09/30/2020 XR, chest, 1 view [email or web address] Informa tion not available 10/27/2020 12:59:31 10/03/2020 catheter placement in coronary artery(s) for coronary angiography; with left heart catheterization including intraprocedural injection(s) for left ventriculography (PROC) completed [email or web address] Information not available 03/10/2021 13:24:48 11/07/2020 electrocardiogram completed naomy Basilio MD [address], [place], [address], 12/05/2020 17:10:42 10/26/2020 electrocardiogram completed [email or web address] Informa tion not available 11/18/2020 13:56:02 Procedure Notes None recorded. Medical Equipment None Reported. Medications Name Sig Start Date Stop Date Status Note LastModified by Organization Details LastModified Time pramipexole 1 mg tablet TAKE 1 TABLET BY MOUTH AT BEDTIME active Not Available Not Available No t Available furosemide 40 mg tablet TAKE 1 TABLET BY MOUTH TWICE DAILY active Not Available Not Available No t Available hydrocodone 5 mg-acetamin ophen 325 mg tablet TAKE 1 TABLET BY MOUTH EVERY 6 HOURS NEEDED FOR PAIN 10/26 completed Not Available Not Available Not Available sertraline 100 mg tablet TAKE 1 TABLET BY MOUTH DAILY active Not Available Not Available No t Available clindamycin HCl 150 mg capsule TAKE 3 CAPSULES BY MOUTH THREE TIMES DAILY FOR 5 DAYS 10/26 completed Not Available Not Available Not Available diphenoxyla te-atropine 2.5 mg-0.025 mg tablet TK 2 TS PO D PRN active Not Available Not Available No t Available potassium chloride ER 10 mEq tablet,exte nded release TAKE 2 TABLET BY MOUTH THREE TIMES DAILY WITH FOOD 11/09 completed Not Available Not Available Not Available clopidogrel 75 mg tablet TAKE 1 TABLET BY MOUTH DAILY 2020 active Not Available Not Available Not Avai lable aspirin 81 mg tablet,lamont yed release TAKE 1 TABLET BY MOUTH EVERY DAY active Not Available Not Available No t Available spironolact one 25 mg tablet TAKE 1/2 TABLET BY MOUTH EVERY DAY active Not Available Not Available No t Available doxycycline monohydrate 100 mg capsule TAKE 1 CAPSULE BY MOUTH TWICE DAILY 10/26 completed Not Available Not Available Not Available gabapentin 300 mg capsule TAKE 1 CAPSULE BY MOUTH THREE TIMES DAILY active Not Available Not Available No t Available balsalazide 750 mg capsule TAKE 3 CAPSULES BY MOUTH TWICE DAILY active Not Available Not Available No t Available lisinopril 5 mg tablet Take 1 tablet(s) every day by oral route. active Not Available Not Available No t Available metoprolol succinate ER 25 mg tablet,exte nded release 24 hr TAKE 1 TABLET BY MOUTH EVERY DAY active Not Available Not Available No t Available sertraline 50 mg tablet TK 1 T PO QD 10/26 completed Not Available Not Available Not Available rosuvastati n 10 mg tablet TAKE 2 TABLETS BY MOUTH AT BEDTIME 11/09 completed Not Available Not Available Not Available rosuvastati n 20 mg tablet TAKE 1 TABLET BY MOUTH EVERY DAY AT BEDTIME active Not Available Not Available No t Available rosuvastati n 40 mg tablet TAKE 1 TABLET BY MOUTH EVERY DAY AT BEDTIME active Not Available Not Available No t Available metoprolol tartrate 25 mg tablet TAKE 1 TABLET BY MOUTH DAILY 10/26 completed Not Available Not Available Not Available Myrbetriq 25 mg tablet,exte nded release active Not Available Not Available Not Available potassium chloride ER 20 mEq tablet,exte nded release TAKE 1 TABLET BY MOUTH THREE TIMES DAILY active Not Available Not Available No t Available Free[employer] Gerard 14 Day Sensor kit active Not Available Not Available Not Available FreeStyle Gerard [address] [place] active Not Available Not Available Not Available Vitals Date Recorded Body height Body mass index (BMI) Body weight Heart rate Respiratory rate Oxygen saturation Oxygen saturation in Arterial blood by Pulse oximetry Systolic blood pressure Diastolic blood pressure Provider Name and Address Organization Details Last Updated DateTime 1 162.56 cm 42.6 kg/m2 055317. 91 g 70 /min 16 /min 92 % 92 % 114 mm[Hg] 82 mm[Hg] Jamila Britton [facility] 1 13:04:20 Date Recorded Body height Body mass index (BMI) Body weight Heart rate Oxygen saturation Oxygen saturation in Arterial blood by Pulse oximetry Inhaled oxygen flow rate Systolic blood pressure Diastolic blood pressure Provider Name and Address Organization Details Last Updated DateTime 1 162.56 cm 43.1 kg/m2 004408. 68 g 75 /min 97 % 97 % 4 L/min 118 mm[Hg] 84 mm[Hg] DAVID [place] - [facility] 11:48:40 Social History Question Answer Notes LastModified by Organizat ion Details LastModified Time Tobacco Smoking Status Former Smoker Desmond Padilla [facility] 10/26/2020 14:25:13 What Is Your Level Of Alcohol Consumption? Moderate [email or web address] Information not available 10/26/2020 Sex: Unknown Functional Status None recorded. Mental Status None recorded. Family History Nothing Reported Notes:No premature MS. Medical History Condition Response Hyperlipidemia Y Hypertension Y Gynecological HistoryNo gynecological history recorded. Obstetrics History GPAL:G 0 P 0 0 0 0 Past Encounters Encounter ID Performer Location Encounter Start Date Encounter Closed Date Diagnosis/Indication Diagnosis SNOMED-CT Code Diagnosis ICD10 Code Diagnosis Note [id number] Desmond Padilla [place] OFFICE [address] [place] [address] 10/26/2020 12:49:39 10/26/2020 14:36:31 Heart failure with reduced ejection fraction 831081080 I50.21 Has nonischemi c cardiomyop athy, HF-rEF. She was in [facility] 09/30/20 with dyspnea, NSTEMI (peak trop I 1.25), and CHF exacerbati on in setting of hypertensi ve urgency, COPD exacerbati on, untreated TRAVIS, left leg cellulitis (treated with doxycyclin e), possible pneumonia, diuresed with Lasix 40 mg bid. Had C 10/03/20: mild CAD (mLAD 40% followed by 50% disease which is diffuse from that point towards the end of the vessel), mild-moder ate LV systolic dysfunctio n (LVEF 40%) with nonischemi c cardiomyop athy. Had echo 10/01/20: mild LVE, LVEF 40-45% with abnormal septal motion in setting of conduction disease, mild RVE, normal RV systolic function, mild pulm. HTN (RVSP 42 mmHg). Begin cardiac rehab at [place]. Patient instructed to taper alcohol to off. Continue metoprolol and Lasix. Consider lisinopril and eventual spironolac tone. Obtain CMP, Mg, TSH, CBC, FLP. Hyperlipidemia 51407245 E78.5 Needs to keep LDL less than 70, and HDL more than 40. Obtain FLP. Obstructiv e sleep apnea syndrome 14449878 G47.33 She is now compliant with CPAP, with pulm. f/u. Essential hypertension 59918555 I10 Patient's blood pressure is {{well-con trolled* s omewhat well-contr olled not well-contr olled}} on present medical therapy. Patient is {{tolerati ng, without difficulty ,* having side effects with}} the current medication s. I have {{not made* made the following} } changes to the current regimen. {{ Patient is advised to maintain a blood pressure diary.}} Patient was advised to eat a low-sodium diet (2 grams sodium or less daily). BP diary. Subsequent non-ST segment elevation myocardial infarction 056909830 I22.2 Stable. Had [facility] 10/03/20: mild CAD (mLAD 40% followed by 50% disease which is diffuse from that point towards the end of the vessel), mild-moder ate LV systolic dysfunctio n (LVEF 40%) with nonischemi c cardiomyop athy. Continue ASA, Plavix, metoprolol , statin. Needs to keep LDL less than 70, and HDL more than 40. Maximal medical therapy. Obesity 678028735 E66.9 20 lb. weight loss recommende d over the next 2 months. [id number] [facility] OFFICE [address] [place] [address] 11/09/2020 11:31:16 11/09/2020 13:02:04 Heart failure with reduced ejection fraction 905525142 I50.21 Has nonischemi c cardiomyop athy, HF-rEF. She was in [facility] 09/30/20 with dyspnea, NSTEMI (peak trop I 1.25), and CHF exacerbati on in setting of hypertensi ve urgency, COPD exacerbati on, untreated TRAVIS, left leg cellulitis (treated with doxycyclin e), possible pneumonia, diuresed with Lasix 40 mg bid. Had [facility] 10/03/20: mild CAD (mLAD 40% followed by 50% disease which is diffuse from that point towards the end of the vessel), mild-moder ate LV systolic dysfunctio n (LVEF 40%) with nonischemi c cardiomyop athy. Had echo 10/01/20: mild LVE, LVEF 40-45% with abnormal septal motion in setting of conduction disease, mild RVE, normal RV systolic function, mild pulm. HTN (RVSP 42 mmHg). Begin cardiac rehab at [place]. Patient instructed to taper alcohol to off. Continue metoprolol and Lasix. Had 10/28/20: K 3.9, Cr 0.7, Mg 2.0, LDL 83, TSH 1.4, hgb 11.4, plt 108 Needs f/u with PCP for progressiv e thrombocyt openia and improving chronic anemia. Pending repeat plt count, consider stopping Plavix. She has chronicall y been on ASA and Plavix s/p distant CVA. Began lisinopril 5 mg qd 11/09/20Beg in spironolac tone 12.5 mg qd 11/09/20. Obtain BMP, Mg, CBC, FLP in 2 weeks. Subsequent non-ST segment elevation myocardial infarction 678488878 I22.2 Stable. Had [facility] 10/03/20: mild CAD (mLAD 40% followed by 50% disease which is diffuse from that point towards the end of the vessel), mild-moder ate LV systolic dysfunctio n (LVEF 40%) with nonischemi c cardiomyop athy. Continue ASA, Pavix, metoprolol , statin. Pending repeat plt count, consider stopping Plavix. She has chronicall y been on ASA and Plavix s/p distant CVA. Needs to keep LDL less than 70, and HDL more than 40. Maximal medical therapy. Hyperlipidemia 73433340 E78.5 Needs to keep LDL less than 70, and HDL more than 40. Had 10/28/20: LDL 83Increase d to rosuvastat in 40 mg qHS 11/09/20. Obstructiv e sleep apnea syndrome 63173948 G47.33 She is now compliant with CPAP, with pulm. f/u. Essential hypertension 00646451 I10 Patient's blood pressure is {{well-con trolled* s omewhat well-contr olled not well-contr olled}} on present medical therapy. Patient is {{tolerati ng, without difficulty ,* having side effects with}} the current medication s. I have {{not made* made the following} } changes to the current regimen. {{ Patient is advised to maintain a blood pressure diary.*}} Patient was advised to eat a low-sodium diet (2 grams sodium or less daily). BP diary. Obesity 796213170 E66.9 20 lb. weight loss recommende d over the next 2 months. Health Concerns Section Related Observation LastModified by Organization Detai ls LastModified Time None Recorded Concern Status LastModified by Organization Details LastModified Time None Recorded Advance Directives Directive None Recorded Payers Encounter Date Sequence Insurance Name Policy Number Policy Garcia Covered Member ID Garcia Member ID Guarantor Name 10/26/2020 1 [place] [employer] Christin [id number] 3 Ping Christin 10/26/2020 2 [place] [id number] [employer] Christin [id number] Ping Christin 11/09/2020 1 [place] [employer] Christin [id number] 3 Ping Christin 11/09/2020 2 [place] [id number] [employer] Christin [id number] Ping Christin Notes Date Note Type Note Provider Name and Address Organization Details Recorded Time 10/26/2020 text/html 10/26/20 CC: hospital follow-up for CHF 74 year-old woman with history of nonischemic cardiomyopathy, HF-rEF, hypertension, hyperlipidemia, pulmonary hypertension, TRAVIS (on CPAP), COPD, former tobacco dependence (quit 2010), COVID-19 (02/28/20), alcohol dependence (3 shots of vodka daily, reduced to 2 shots of vodka daily), ulcerative colitis, Crohn's disease, peripheral neuropathy, obesity, depression, presents for cardiac consultation with a chief complaint of need hospital follow-up for HCF. She was in [facility] 09/30/20 with dyspnea, NSTEMI (peak trop I 1.25), and CHF exacerbation in setting of hypertensive urgency, COPD exacerbation, untreated TRAVIS, left leg cellulitis (treated with doxycycline), possible pneumonia, diuresed with Lasix 40 mg bid. [facility] 10/03/20: mild CAD (mLAD 40% followed by 50% disease which is diffuse from that point towards the end of the vessel), mild-moderate LV systolic dysfunction (LVEF 40%) with nonischemic cardiomyopathy. Had echo 10/01/20: mild LVE, LVEF 40-45% with abnormal septal motion in setting of conduction disease, mild RVE, normal RV systolic function, mild pulm. HTN (RVSP 42 mmHg). She had negative LE venous Doppler 09/2020. {{Patient reports feeling well overall.* Patient reports not feeling well sometimes.}} {{Patient is active, but is not exercising regularly.* Patient is active, exercising regularly. Patient is not very active, and is not exercising.}} {{No chest pain.* Chest pain reported. Exertional chest pain reported. Non-exerti onal chest pain reported. Chest pain reported which is only sometimes associated with activity.}} {{No arm pain.* Arm pain reported.}} {{No neck pain.* Neck pain reported.}} {{No nausea and vomiting.* Nausea and vomiting reported.}} {{No diaphoresis.* Diapho resis reported.}} {{No shortness of breath at rest.* Shortness of breath at rest reported.}} {{No dyspnea on exertion. Dyspnea on exertion reported. Dyspnea on exertion reported, improving.#}} {{No fatigue.* Fatigue reported.}}{{No orthopnea.* Orthopne a reported.}} {{No PND.* PND reported.}} {{No leg swelling. Leg swelling reported. Leg swelling reported, intermittent.#}} {{No palpitation.* Palpit ation reported.}} {{No dizziness. Dizziness reported. Dizziness reported, postural.#}} {{No syncope .* Syncope reported.}} {{No pre-syncope.* Pre-sy ncope reported.}} {{No claudication.* Darshan ication reported.}} {{No major bleeding events.* Major bleeding event reported.}} {{No side effects from medications.* Side effects from medications reported.}} {{Complete ROS negative except as stated in the HPI. Complete ROS negative except as stated in the HPI and ROS.*}} Had [facility] 10/03/20: mild CAD (mLAD 40% followed by 50% disease which is diffuse from that point towards the end of the vessel), mild-moderate LV systolic dysfunction (LVEF 40%) with nonischemic cardiomyopathy. Had echo 10/01/20: mild LVE, LVEF 40-45% with abnormal septal motion in setting of conduction disease, mild RVE, normal RV systolic function, mild pulm. HTN (RVSP 42 mmHg). She had negative LE venous Doppler 09/2020. Results from this visit, or from the past: 10/01/20: hgb 10.7, K 3.6, Mg 1.7, Cr 0.8, Had [facility] 10/03/20: mild CAD (mLAD 40% followed by 50% disease which is diffuse from that point towards the end of the vessel), mild-moderate LV systolic dysfunction (LVEF 40%) with nonischemic cardiomyopathy. Had echo 10/01/20: mild LVE, LVEF 40-45% with abnormal septal motion in setting of conduction disease, mild RVE, normal RV systolic function, mild pulm. HTN (RVSP 42 mmHg). She had negative LE venous Doppler 09/2020. Desmond Padilla [place], [place] - [facility] 10/26/2020 14:36:29 11/09/2020 text/html 11/09/20 CC: hospital follow-up for CHF 74 year-old woman with history of nonischemic cardiomyopathy, HF-rEF, CVA (several years ago), hypertension, hyperlipidemia, pulmonary hypertension, TRAVIS (on CPAP), COPD, former tobacco dependence (quit 2010), COVID-19 (02/28/20), alcohol dependence (3 shots of vodka daily, reduced to 2 shots of vodka daily), ulcerative colitis, Crohn's disease, peripheral neuropathy, obesity, depression, presents for cardiac consultation with a chief complaint of need hospital follow-up for HCF. She was in [facility] 09/30/20 with dyspnea, NSTEMI (peak trop I 1.25), and CHF exacerbation in setting of hypertensive urgency, COPD exacerbation, untreated TRAVIS, left leg cellulitis (treated with doxycycline), possible pneumonia, diuresed with Lasix 40 mg bid. Had [facility] 10/03/20: mild CAD (mLAD 40% followed by 50% disease which is diffuse from that point towards the end of the vessel), mild-moderate LV systolic dysfunction (LVEF 40%) with nonischemic cardiomyopathy. Had echo 10/01/20: mild LVE, LVEF 40-45% with abnormal septal motion in setting of conduction disease, mild RVE, normal RV systolic function, mild pulm. HTN (RVSP 42 mmHg). She had negative LE venous Doppler 09/2020. Reports home BP 120/80. {{Patient reports feeling well overall.* Patient reports not feeling well sometimes.}} {{Patient is active, but is not exercising regularly.* Patient is active, exercising regularly. Patient is not very active, and is not exercising.}} {{No chest pain.* Chest pain reported. Exertional chest pain reported. Non-exerti onal chest pain reported. Chest pain reported which is only sometimes associated with activity.}} {{No arm pain.* Arm pain reported.}} {{No neck pain.* Neck pain reported.}} {{No nausea and vomiting.* Nausea and vomiting reported.}} {{No diaphoresis.* Diapho resis reported.}} {{No shortness of breath at rest.* Shortness of breath at rest reported.}} {{No dyspnea on exertion. Dyspnea on exertion reported. Dyspnea on exertion reported, improving.#}} {{No fatigue.* Fatigue reported.}}{{No orthopnea.* Orthopne a reported.}} {{No PND.* PND reported.}} {{No leg swelling. Leg swelling reported. Leg swelling reported, intermittent, left leg, stable.#}} {{No palpitation.* Palpit ation reported.}} {{No dizziness. Dizziness reported. Dizziness reported, postural.#}} {{No syncope .* Syncope reported.}} {{No pre-syncope.* Pre-sy ncope reported.}} {{No claudication.* Darshan ication reported.}} {{No major bleeding events.* Major bleeding event reported.}} {{No side effects from medications.* Side effects from medications reported.}} {{Complete ROS negative except as stated in the HPI. Complete ROS negative except as stated in the HPI and ROS.*}} Had LHC 10/03/20: mild CAD (mLAD 40% followed by 50% disease which is diffuse from that point towards the end of the vessel), mild-moderate LV systolic dysfunction (LVEF 40%) with nonischemic cardiomyopathy. Had echo 10/01/20: mild LVE, LVEF 40-45% with abnormal septal motion in setting of conduction disease, mild RVE, normal RV systolic function, mild pulm. HTN (RVSP 42 mmHg). She had negative LE venous Doppler 09/2020. Results from this visit, or from the past: Had 10/28/20: K 3.9, Cr 0.7, Mg 2.0, LDL 83, TSH 1.4, hgb 11.4, plt 108 lab result [id number] result : hgb 10.7, K 3.6, Mg 1.7, Cr 0.8,PT/INR 09-30-2020 electrocardiogram Had [facility] 10/03/20: mild CAD (mLAD 40% followed by 50% disease which is diffuse from that point towards the end of the vessel), mild-moderate LV systolic dysfunction (LVEF 40%) with nonischemic cardiomyopathy. Had echo 10/01/20: mild LVE, LVEF 40-45% with abnormal septal motion in setting of conduction disease, mild RVE, normal RV systolic function, mild pulm. HTN (RVSP 42 mmHg). She had negative LE venous Doppler 09/2020. XR, chest, 1 view 09-30-2020 US, echocardiogram 09-30-2020 [facility] [place] [facility] 11/09/2020 12:58:46 OBGyn Episode No OBEpisode recorded.
[2024-05-05 19:34] LABS: Basophils Percent Auto 0.4 % (0.2-1.2); Eosinophils Absolute Auto 0.1 K/mm3 (0-0.3); Eosinophils Percent Auto 1.9 % (0-4.4); Hematocrit 35.6 % (37.0-47.0); Hemoglobin 10.7 g/dL (12.0-15.0); Immature Granulocyte Absolute 0.04 K/mm3 (0.00-0.031); Immature Granulocyte Percent A 0.6 % (0-0.5); Lymphocytes Absolute Auto 0.97 K/mm3 (0.9-3.2); Lymphocytes Percent Auto 14.5 % (18.3-44.2); Mean Corpuscular HGB Conc 30.1 g/dl (32-36); Mean Corpuscular Hemoglobin 30.7 pg (26-34); Mean Corpuscular Volume 102.3 fl (80-100); Mean Platelet Volume 10.7 fl (7.4-10.4); Monocytes Absolute Auto 0.4 K/mm3 (0.1-0.6); Monocytes Percent Auto 6.1 % (2.6-8.5); Neutrophils Absolute Auto 5.1 K/mm3 (1.3-6.7); Neutrophils Percent Auto 76.5 % (45.5-73.1); Platelet Count Result 154 k/mm3 (150-375); Red Blood Count 3.48 M/mm3 (4.2-5.4); Red Cell Distribution Width 14.6 % (11.5-14.5); White Blood Count 6.7 K/mm3 (4.5-10.0)
[2024-05-06 00:20] LABS: Alanine Aminotransferase 14 U/L (6-35); Albumin Level 4.2 g/dL (3.5-5.1); Alkaline Phosphatase 61 U/L (38-126); Anion Gap 6 mmol/L (4-12); Aspartate Amino Transferase 30 U/L (14-36); Bilirubin,Total 1.1 mg/dL (0.2-1.3); Blood Urea Nitrogen 28 mg/dL (7-17); Calcium 9.5 mg/dL (8.4-10.2); Carbon Dioxide 33 mmol/L (22-30); Chloride 104 mmol/L (98-107); Cholesterol 157 mg/dL (0-200); Estimated Glomerular Filt Rate > 60; Glucose 92 mg/dL (65-110); HDL Direct 63 mg/dL; Potassium 5.4 mmol/L (3.4-5.0); Sodium 143 mmol/L (137-145); Triglycerides 61 mg/dL (<150)
[2024-05-06 00:28] LABS: LDL Cholesterol Direct 82 mg/dL
== END 2024-05-05 14:53 | disposition home or self-care (01) ==
LOC: ANHGOSHLAB 14:53
PROVIDERS: PCP Family Medicine; Visit Provider Family Medicine
DX: J96.11 Chronic respiratory failure with hypoxia (principal); G62.9 Polyneuropathy, unspecified; R29.6 Repeated falls; R73.03 Prediabetes; I50.22 Chronic systolic (congestive) heart failure
CPT/HCPCS: 36415; 80053; 80061; 82607; 84443; 85025

== ENCOUNTER 2024-05-12 19:19 | Emergency (ER) | payer MEDICARE, SELFPAY ==
[2024-05-12] VITALS (23 sets, daily range): BP systolic 79–129; BP diastolic 57–97; PULSE 86–107; RESP 16–29; TEMP 36.5; O2SAT 92–100
--- NOTE | ~2024-05-12 | XR_ITS ---
EXAMINATION: XR chest 1V Exam Date/Time: 05/12/2024 20:15 DISASTER RECOVERY CONSULTANT HISTORY: Fall Comparison: 11/01/2023; CTPA 11/01/2023. RESULT: Lines, tubes, and devices: None. Lungs and pleura: Mild scattered interstitial changes. Leftward rotation. Cardiomediastinal silhouette: Stable. Other: No acute osseous or upper abdominal finding. IMPRESSION: Mild interstitial edema versus senescent change. Reviewed, dictated and finalized at location K. STER RECOVERY CONSULTANT
--- NOTE | ~2024-05-12 | CT_ITS ---
EXAMINATION: CT brain wo con DATE: 05/12/2024 21:07 INDICATION: Fall-xarelto,R eye ecchymosis w/ bloody chemosis . TECHNIQUE: Computed tomography (CT) of the head was performed without intravenous contrast. The mA wa s adjusted according to patient size. Iterative reconstruction technique was employed. The dose-lengt h product was 2043.00 mGy-cm. COMPARISON: 08/12/2023. FINDINGS: Motion artifact is present in all images, despite repeated imaging attempts. No acute intracranial hemorrhage or extra-axial fluid collection. No hydrocephalus, mass, or herniation. No acute ischemic infarct. Unremarkable dural venous sinus attenuation. No acute osseous abnormality. Small right maxillary air-fluid level, ethmoid mucosal thickening, left maxillary mucosal thickening, the remaining aerated spaces are clear. Mild atrophy and chronic white matter change. Atherosclerotic intracranial calcification. IMPRESSION: Motion limited examination. No definite acute intracranial process. Please also refer to the report o n the concurrent CT face and cervical spine. Reviewed, dictated and finalized at location K. IO RECEPTIONIST IMPRESSION: Motion limited examination. No definite acute intracranial process. Please also refer to the report on the concurrent CT face and cervical spine.
--- NOTE | ~2024-05-12 | CT_ITS ---
EXAMINATION: CT facial & cervical spine wo DATE: 05/12/2024 21:07 INDICATION: Fall-xarelto,R eye ecchymosis w/ bloody chemosis TECHNIQUE: Computed tomography (CT) of the maxillofacial region and cervical spine was performed with out intravenous contrast. Automated exposure control and iterative reconstruction technique were empl oyed. The dose-length product was 285.99 mGy-cm. COMPARISON: 08/12/2023 FINDINGS: CERVICAL: Mild motion artifact is present throughout the cervical spine. Vertebral Body Alignment: Stable multilevel mild listheses likely on a degenerative basis. Craniocervical and atlantoaxial alignment: Moderate degenerative change. Alignment intact. Osseous structures/fracture: No evidence of a lytic or blastic process in the visualized spine. No e vidence of acute fracture. Cervical soft tissues: The paraspinal soft tissues planes are maintained. Degenerative changes: Multilevel severe cervical degenerative disc disease. Multilevel facet arthropa thy. Multilevel right-sided neural foraminal narrowing on a degenerative basis. FACE: Motion limits evaluation of portions of the mandible. Soft Tissues: Soft tissue swelling over the right face and periorbital soft tissues. Facial bones: Right orbital floor fracture, with herniation of orbital fat and thickening of the inf erior rectus muscle. No lytic or blastic process. Eyes: The globes are intact. The soft tissue planes of the orbits are maintained. Paranasal Sinuses: Small right maxillary air-fluid level likely representing hemorrhage. Mild bilate ral maxillary and ethmoid mucosal thickening. Foreign Bodies: No radiopaque foreign bodies. Other Findings: None. IMPRESSION: Right orbital floor and left fracture with herniation of orbital fat and inferior rectus muscle thick ening. Correlate for clinical findings of extraocular muscle entrapment. No fracture or traumatic malalignment detected in the cervical spine, within the constraints of mild motion artifact. Reviewed, dictated and finalized at location K. ESTATE SALES SUPERVISOR IMPRESSION: Right orbital floor and left fracture with herniation of orbital fat and inferi or rectus muscle thickening. Correlate for clinical findings of extraocular mus dany entrapment. No fracture or traumatic malalignment detected in the cervical spine, within th e constraints of mild motion artifact.
--- NOTE | ~2024-05-12 | XR_ITS ---
EXAM: XR pelvis 1-2V DATE: 05/12/2024 20:24 HISTORY: Fall . COMPARISON: 11/08/2018. FINDINGS: Osteopenia. Partially visualized uncomplicated appearing right hip arthroplasty hardware. Chronic L3 burst fracture. Lumbar degenerative disc disease. Mild left hip osteoarthritis. Pelvic phl eboliths. IMPRESSION: No acute osseous finding in the pelvis. Reviewed, dictated and finalized at location K. FACTURING WEAVER
--- NOTE | ~2024-05-12 | CT_ITS ---
EXAMINATION: CT chest abdomen pelvis w con DATE: 05/12/2024 21:12 INDICATION: Multiple falls, R flank bruising, R thigh bruising . TECHNIQUE: Computed tomography (CT) of the chest, abdomen, and pelvis was performed with 100 mL Omnip aque-350 intravenous contrast. Automated exposure control and iterative reconstruction technique were employed. The dose-length product was 1737.58 mGy-cm. COMPARISON: CTPA 11/01/2023; CT pelvis 01/28/2023 CT abdomen pelvis 04/25/2016; CT lumbar spine 01/28/2023. FINDINGS: CHEST: No thoracic aortic injury. No mediastinal hematoma. No pericardial effusion. Cardiomegaly. Motion artifact throughout the lungs. No acute lung injury. Mild septal thickening. Scattered subsegm ental areas of dependent opacity. No pleural effusion or pneumothorax. ABDOMEN/PELVIS: Motion artifact throughout the mid and lower abdomen. No solid organ injury. Multiple renal hypodensities likely representing cysts but obscured by motion. No evidence of bowel or mesenteric injury. No free fluid or free air. No retroperitoneal hematoma. Pelvic contents are atraumatic. MUSCULOSKELETAL: Uncomplicated appearing fat-containing periumbilical hernia. Asymmetric thickening/enlargement of the right abdominal oblique muscles, a chronic finding. Right lower lateral abdominal wall hernia contai vidya a loop of unobstructed small bowel. No acute fracture. Partially visualized, uncomplicated appearing right shoulder arthroplasty hardware . Motion artifact limits evaluation of the ribs. Motion artifact in the mid sternum. Significant regina on artifact in the pelvis. Uncomplicated appearing right hip arthroplasty hardware. No fracture or traumatic malalignment of the thoracic or lumbar spine. Chronic mild compression defor mity at T5. Chronic compression deformities at L1-L3. IMPRESSION: Motion limited examination. Within that constraint, no acute traumatic process detected in the chest, abdomen, or pelvis. Mild interstitial edema and subsegmental bibasilar atelectasis/consolidation. Reviewed, dictated and finalized at location K. NDER 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 HELPER
--- NOTE | ~2024-05-12 | XR_ITS ---
EXAM: XR hand LT min 3V, XR wrist LT min 3V DATE: 05/12/2024 20:24 HISTORY: hand pain . COMPARISON: None available. FINDINGS: Decreased mineralization. Chronic appearing right distal first metacarpal fracture, healed in deformity. Well-corticated ossific fragment along the dorsal wrist, likely old triquetral fractur e. Chronic appearing radial styloid fracture, with a persistent articular surface gap. Chronic appear ing a dorsal avulsion fracture (mallet fracture) at the second distal phalanx. No definite acute frac ture. No lytic or blastic lesion. Moderate scattered degenerative changes. Ulnar negative variance.. No erosion or periosteal change. Soft tissues within normal limits. IMPRESSION: No definite acute fracture identified. Multiple chronic appearing fractures detailed abov e.. Reviewed, dictated and finalized at location K. RCOACH DRIVER IMPRESSION: No definite acute fracture identified. Multiple chronic appearing f ractures detailed above..
--- OUTSIDE RECORDS SUMMARY | 2024-05-12 19:21 | XMS_ITS | Clinical Summary ---
Author Organization [facility] Address [address] [place] [id number] Care Team Providers Care Signing Teacher Name Role Phone Meagan Yusuf MD Primary [...] mg total) by mouth daily 1 Active cholecalcifero l (VITAMIN D-3) 25 mcg (1,000 unit) tablet Take 2 tablets (2,000 Units total) by mouth daily Active diphenhydrAMIN E (BENADRYL) 25 mg capsule Take 1 tablet/capsule (25 mg total) by mouth nightly as [...] WITH DINNER 30 tablet 11 4 Active Additional Information Patient not taking.Reported on 05/08/2024 famotidine (PEPCID) 20 mg tablet Take 1 [...] ER 10 mEq CR tablet Take 2 tablet/capsule (20 mEq total) by mouth 2 (two) times a day 4 Active diltiazem LA (CARDIZEM LA) 180 mg 24 hr tablet Take 0.5 tablet po daily 45 tablet 1 4 Active sacubitriL-belinda sartan (Entresto) 24-26 mg tabletIndicati ons:Chronic HFrEF (heart failure with reduced ejection fraction) (CMS/HCC) ([facility]) TAKE 1 TABLET BY MOUTH IN THE MORNING AND IN THE EVENING 60 tablet 11 5 Active sacubitriL-belinda sartan (Entresto) 24-26 mg tabletIndicati ons:Chronic HFrEF (heart failure with reduced ejection fraction) (CMS/HCC) ([facility]) TAKE 1 TABLET BY MOUTH IN THE MORNING AND IN THE EVENING 60 tablet 11 4 05/01/19 25 Discontin ued(Reord er) Active Problems Problem Noted Date Diagnosed Date Heart failure with mildly re duced ejection fraction (HFmrEF) 01/15/2024 Chronic anticoagulation 07/18/2022 Persistent atrial fibrillation 02/20/2022 Noncompliance with medicatio n treatment due to intermittent use of medication 12/18/2021 Morbid (severe) obesity due to excess calories 0 07/05/2021 Labile hypertension 03/23/2021 Hypotension due to drugs 03/23/2021 Coronary artery disease invo lving [place] coronary artery of [place] heart without angina pectoris 02/10/2021 Mixed hyperlipidemia 02/10/2021 Chronic obstructive pulmonary disease 02/10/2021 Chronic respiratory failure with hypoxia (CMS/HC C) 02/10/2021 TRAVIS on CPAP 02/10/2021 Frequent falls 02/10/2021 Resolved Problems Problem Noted Date Diagnosed Date Resolved Date H/O cardiomyopathy 12/18/2021 Chronic heart failure with p reserved ejection fraction (CMS/HCC) 02/10/2021 01/15/2024 Encounters Date Type Department Care Team Description 05/08/2024 1:30 PM LINEN ROOM WORKER Office Visit [facility] Medical Group Cardiology [address] [facility] [address] [place] [phone] Allie Contreras NP Chronic HFrEF (heart failure with reduced ejection fraction) (CMS/HCC) (HCC) (Primary Dx); Persistent atrial fibrillation (HCC); Chronic anticoagulation; Frequent falls; TRAVIS on CPAP 05/01/2024 Telephone [facility] Medical [facility] Cardiology [address] [facility] [address] [place] [phone] Radha Jimenez MD Med Refill from Last 3 Months Surgical History Surgery Date Site/Laterality Comments HYSTERECTOMY TOTAL SHOULDER REPLACEMENT Right HIP ARTHROPLASTY Medical History Medical History Date Comments [place], old CHF (congestive heart failure) (CMS/HCC) (HCC) [...] on file Legal Sex Female 4:29 PM LINEN ROOM WORKER Gender Identity Not on file Sexual Orientation Not on file Obstetrics History Last Filed Vital Signs Vital Sign Reading Time Taken Comments Blood Pressure 124/88 05/08/2024 1:36 PM LINEN ROOM WORKER Pulse 92 05/08/2024 1:36 PM LINEN ROOM WORKER Temperature - - Respiratory Rate - - Oxygen Saturation 95% 05/08/2024 1:36 PM LINEN ROOM WORKER Inhaled Oxygen Concentration - - Weight 93 kg (205 lb) 05/08/2024 1:36 PM LINEN ROOM WORKER Height 165.1 cm (5' 5 ) 05/08/2024 1:36 PM LINEN ROOM WORKER Body Mass Index 34.11 05/08/2024 1:36 PM LINEN ROOM WORKER Plan of Treatment Health Maintenance Due Date Last Done Comments Depression Screening 1945 Fall Risk Assessment 1945 Hepatitis C Screening 1945 Osteoporosis Screening-Bone Density Scan 1945 Hepatitis B Screening 12/21/1965 Well Visit 65+ 12/21/2012 Zoster Vaccine (2 of 3) 04/04/2015 02/07/2015 Covid-19 Vaccine (3 - 2023-2 5 season) 2023 06/15/2020, 05/24/2020 Influenza Vaccine (#1) 2023 0, 03/05/2019, 01/28/2018, Additional history exists DTaP/Tdap/Td Vaccine (2 - Td or Tdap) 12/14/2029 12/15/2019 Pneumococcal vaccine 65+ Completed 05/08/2018, 12/24 Insurance MEDICARE MEDICARE [facility] MEDICARE SUPPLEMENT Member Subscriber Plan / Payer (Ef fective 2019-Present) Name:Ping Waller Relation to Subscriber:Self Name:Ping Waller Payer ID:[id number] Group ID:[id number] Type:COMMERCIAL Address: [facility] [id number] [place] [id number] Care Teams Signing Teacher Relationship Specialty Start Date End Date Meagan Yusuf MD PCP - General Family Medicine 05/22/23
--- OUTSIDE RECORDS SUMMARY | 2024-05-12 19:21 | XMS_ITS | Referral Summary ---
Author Organization [facility] Address [address] [place] [phone] Care Team Providers Care Extension Work Director Name Role Phone Meagan Yusuf MD Primary Care Provider + Encounters Date Type Department Care Team Description 05/08/2024 1:30 PM CHANGE CONTROL SPECIALIST Office Visit [facility] Medical [facility] Cardiology [address] [place] [address] Allie Contreras NP Chronic HFrEF (heart failure with reduced ejection fraction) (CMS/HCC) (HCC) (Primary Dx); Persistent atrial fibrillation (HCC); Chronic anticoagulation; Frequent falls; TRAVIS on CPAP 05/01/2024 Telephone [facility] Cardiology [address] [facility] [address] [place] [address] Radha Jimenez MD Med Refill [...] drugs 03/23/2021 Coronary artery disease invo lving [place] coronary artery of [place] heart without angina pectoris 02/10/2021 Mixed hyperlipidemia 02/10/2021 Chronic obstructive pulmonary disease 02/10/2021 Chronic respiratory failure with hypoxia (CMS/HC C) 02/10/2021 TRAVIS on CPAP 02/10/2021 Frequent falls 02/10/2021 Resolved Problems Problem Noted Date Diagnosed Date Resolved Date H/O cardiomyopathy 12/18/2021 4 Chronic heart failure with p reserved ejection fraction (CMS/HCC) 02/10/2021 01/15/2024 Social History Tobacco Use Types Packs/Day Years Used Date Smoking Tobacco: Former Cigarettes Q uit: 2010 Smokeless Tobacco: Never Tobacco Cessation:Counseling Given: Not Answered Comments Unknown Sex and Gender Information Value Date Recorded Sex Assigned at Not on file Legal Sex Female 4:29 PM CHANGE CONTROL SPECIALIST Gender Identity Not on file Sexual Orientation Not on file Last Filed Vital Signs Vital Sign Reading Time Taken Comments Blood Pressure 124/88 05/08/2024 1:36 PM CHANGE CONTROL SPECIALIST Pulse 92 05/08/2024 1:36 PM CHANGE CONTROL SPECIALIST Temperature - - Respiratory Rate - - Oxygen Saturation 95% 05/08/2024 1:36 PM CHANGE CONTROL SPECIALIST Inhaled Oxygen Concentration - - Weight 93 kg (205 lb) 05/08/2024 1:36 PM CHANGE CONTROL SPECIALIST Height 165.1 cm (5' 5 ) 05/08/2024 1:36 PM CHANGE CONTROL SPECIALIST Body Mass Index 34.11 05/08/2024 1:36 PM CHANGE CONTROL SPECIALIST Plan of Treatment Not on file Insurance MEDICARE MEDICARE [facility] MEDICARE SUPPLEMENT Care Teams Extension Work Director Relationship Specialty Start Date End Date Meagan Yusuf MD PCP - General Family Medicine 05/22/23
--- OUTSIDE RECORDS SUMMARY | 2024-05-12 19:21 | XMS_ITS | Continuity of Care Document ---
Author Organization [facility] Address [address] [place] [address] Phone Care Team Providers Care Vp Cardiovascular Name Role Phone Guerrero Cho MD Unavailable Unavailable Allergies, Adverse Reactions, Alerts Substance Reaction Status Criticality THIOPENTAL SODIUM Active No Informa tion Penicillins Rash Active No Information Medications Medication Instructions Dosage Effective Dates (start - stop) Status Comments clopidogrel 75 mg tablet take 1 tablet by oral route every day 75 MG - Active Non-Aspirin Extra Strength 500 mg capsule take 2 capsule by oral route every 6 hours as needed - Active albuterol sulfate 2.5 mg/3 mL (0.083 %) solution for nebulization inhale 3 milliliter by nebulization route 3 times every day 2.5 MG - Active Vitamin D3 1,000 unit tablet - Active Advair Diskus 250 mcg-50 mcg/dose powder for inhalation inhale 1 puff by inhalation route 2 times every day in the morning and evening approximately 12 hours apart 1.00 puff - Active furosemide 40 mg tablet take 1 tablet by oral route every day 40 MG - Active Gralise 300 mg tablet,extended release - Active melatonin 10 mg tablet - Active Apriso 0.375 gram capsule,extended release take 4 capsule by oral route every day in the morning 1500 MG - Active pramipexole 0.75 mg tablet take 1 tablet by oral route 3 times every day 0.75 MG - Active sertraline 50 mg tablet take 3 tablet by oral route every day 150 MG - Active Spiriva with HandiHaler 18 mcg and inhalation capsules inhale 1 capsule by inhalation route every day using 2 inhalations via handihaler - Active Aspirin Low Dose 81 mg tablet,delayed release take 1 tablet by oral route every day 81 MG - Active Procedures Procedure Date OFFICE/OUTPATIENT VISIT [...] Copied on Encounter OFFICE/OUTPA TIENT VISIT EST [facility], [address] [place] [address], [address], tel:[phone] [facility] Chaitanya Status post reverse total arthroplasty of right shoulderAfter care following right shoulder joint replacement surgery 9 Marquis Masters. [address] [facility] [address], [place], [place], [id number] . tel: [phone] [facility], [address] [place] [address], [address], tel:[phone] [facility] Chaitanya s/p reverse right shoulder (chief complaint) Status post reverse total arthroplasty of right shoulder 8 Marquis Masters. [address], [place], [place], [id number] . tel: [phone] [facility], [address] [place] [address], [address], tel:[phone] [facility] Other specific arthropathies , not elsewhere classified, right shoulder 8 Marquis Masters. [address] [facility] [address], [place], [place], [id number] . tel: [phone] OFFICE/OUTPA TIENT VISIT EST [facility], [address] [place] [address], [address], [phone] [facility] Complete tear of right rotator cuffPrimary osteoarthriti s of right shoulder 0 8 Marquis Masters. [address], [place], [place], [id number] . tel: [phone] OFFICE/OUTPA TIENT VISIT EST [facility], [address] [place] [address], [address], [place] tel:[phone] [facility] [place] RT SHOULDER INJURY 7\ (chief complaint) Body mass index (BMI) 40.0-44.9, adultComplete tear of right rotator cuff 8 Sangita Abhinav. [address] [place] [address], [id number] . tel: [phone] Referring Provider: Juan David Patiño, [address] [place], [place], [address]. tel:[phone] OFFICE/OUTPA TIENT VISIT [facility], [address] [place] [address], [address], [place] tel:[phone] [facility] History of total right hip arthroplasty 8 Sangita La. [address] [place] [address], [id number] . tel: [phone] Referring Provider: Meagan Wren, PERMANENTLY CLOSED [address] [place], [place], [address]. tel:[phone] [facility], [address] [place] [address], [address], [place] tel:[phone] [facility] History of total right hip arthroplasty 7 Sangita La. [address] [place] [address], [id number] . tel: [phone] [facility], [address] [place] [address], [address], [place] tel:[phone] [facility] [place] R YANIRA 11/08/16 (chief complaint) History of total right hip arthroplasty 7 Michael Lemos. [address] [place] [address] [address], [place], [place], [id number] . tel: [phone] [facility], [address] [place] [address], [address], [phone] [facility] R YANIRA 11/08/16 (chief complaint) History of total right hip arthroplasty Sep-0 7 Michael Lemos. [address] [place] [address] [address], [place], [place], [id number] . tel: [phone] [facility], [address] [place] [address], [address], [place] tel:[phone] [facility] No Information Sangita La. [address] [place] [address], [id number] . tel: [phone] OFFICE/OUTPA TIENT VISIT EST [facility], [address] [place] [address], [address], tel:[phone] [facility] Follow Up of after right hip mri (chief complaint) Primary osteoarthriti s of right hipHip abductor tendinitis, right 7 Sangita La. [address] [place] [address], [id number] . tel: [phone] OFFICE/OUTPA TIENT VISIT [facility], [address] [place] [address], [address], [place] [phone] [facility] R hip (chief complaint) Body mass index (BMI) 38.0-38.9, adultPrimary osteoarthriti s of right hipHip abductor tendinitis, right 7 Sangita La. [address] [place] [address], [id number] . tel: [phone] Referring Provider: Kristel Villegas, [address], [place], [address]. tel:[phone] Family History Family Member Type Diagnosis Age At Onset Brother Problem (finding) Alive and well Immunizations Vaccine Date Status Comments Pneumo (2 yrs or older)(PPV) administered Source: Other Provider Payers Payer name Insurance type Covered alliance party ID Lela gong(s) Medicare E2 [id number] Christine Medicare Supplement E2 OT [id number] Social History Type Description Quantity Date [...] Bod y mass index (BMI) 40.0-44.9, adult Apply ice as tolerated. Related to Complete tear of right rotator cuff Immobilize as directed. Related to Complete tear of right rotator cuff Take medications as ordered Rela yobani to [...]
--- OUTSIDE RECORDS SUMMARY | 2024-05-12 19:21 | XMS_ITS | Data Portability ---
Author Organization [place] - [facility] OFFICE Address [address] [place] [address] Care Team Providers Care Group Rooms Coordinator Name Role Phone JAMILA PAVON Primary Care [...] current medications, and medical follow-up as noted. [email or web address] Not available 10/26/2020 14:30:27 11/09/2020 11/09/2020 Discussed [...] None recorded. Imaging electrocard iogram 2020 021 BRANDI Not available 17:10:42 electrocard iogram 2020 021 [email or web address] Not available 14:35:30 Medication Orders rosuvastati n 40 mg tablet 2020 021 [facility] #84388, [address], [place], [id number], 12:58:37 lisinopril 5 mg tablet 2020 [facility] #57213, [address], [place], [id number], 12:58:39 spironolact one 25 mg tablet 2020 [facility] #38489, [address], [place], [id number], 12:58:59 aspirin 81 mg tablet,lamont yed release 2020 [facility] #48910, [address] [place] [address], [id number], 14:35:37 clopidogrel 75 mg tablet 2020 [facility] #93555, [address] [place] [address], [id number], 14:35:38 rosuvastati n 20 mg tablet 2020 [facility] #73990, [address], [place], [id number], 14:35:39 metoprolol succinate ER 25 mg tablet,exte nded release 24 hr 2020 [facility] #34764, [address] [place] [address], [id number], 14:35:39 potassium chloride ER 20 mEq tablet,exte nded release 2020 [facility] #86059, [facility] [address] [place], [id number], 14:35:37 furosemide 40 mg tablet 2020 021 [facility]19129, [address] [place], [place], [id number], 14:35:38 Patient TargetsNo targets recorded. Patient Instructions Encounter Date Encounter Id Patient Instructions Last Modified By Organization Details Last Modified Time 10/26/2020 [id number] high cholesterol : care instructions [email or web address] Not available 10/26/2020 14:35:29 When You Want to Lose Weight: Care Instructions [email or web address] Not available 10/26/2020 14:35:30 sleep apnea: car e instructions Not available 10/26/2020 14:35:30 high blood pressure: care instructions [email or web address] Not available 10/26/2020 14:35:30 learning about high blood pressure Not available 10/26/2020 14:35:30 11/09/2020 [id number] high cholesterol : care instructions [email or web address] Not available 11/09/2020 12:58:27 When You Want to Lose Weight: Care Instructions Not available 11/09/2020 12:58:27 sleep apnea: car e instructions Not available 11/09/2020 12:58:27 high blood pressure: care instructions [email or web address] Not available 11/09/2020 12:58:27 learning about high blood pressure [email or web address] Not available 11/09/2020 12:58:27 Reason for Referral None Reported. Results Created Date Observation Date Name Description Value Unit Range Abnormal Flag Note LastModifiedBy Organization Detail LastModifiedTime 10/26/19 21 elect low del castillogr am No observ ation record ed. Sharif Bustamante MD [address], [place], [address], 10/26/2020 14:26:29 10/28/19 21 10/01/2020 US, doppl er, venou s No observ ation [...] 10/28/1910/03/[address] ment in coron [place] arter y(s) for coron zuleika angio graph y; with left heart irais teriz ation inclu ding intra proce dural injec tion( s) for left ventr iculo graph y (PROC ) No observ ation record ed. [email or web address] Not Available 2020 13:24:48 11/08/19 21 11/07/2020 elect rocar diogr am No observ ation record ed. елена Bustamante MD [address], [place], [address], 12/05/2020 17:10:42 11/17/19 21 10/26/2020 elect rocar diogr am No observ ation record ed. Not Available 11/18 13:56:02 Result Notes Documentation Provider Name and Address Organization Details Recorded Time Lipid Panel, Blood : 10/28/20:Na 137,K 3.9,Cl 102,Co2 30,Glu 94,Bun 18,Cr 0.7,AST 33,ALT 11. 10/28/20:TC 190,TG 79,HDL 87,LDL 83. 10/28/20:WBC 5.4,RBC 3.83,HGB 11.4,HCT 36.7,PLT 108. Dominic Rodriguez [place], [place] - [facility] 11/14/2020 16:16:49 Lipid Panel, Blood : 10/28/20:Na 137,K 3.9,CL 102,CO2 30,Glu 94,Bun 18,Cr 0.7,AST 33,ALT 11. 10/28/20:TC 190,TG 79,HDL 87,LDL pending. Dominic beyer, [facility] 01/24/2021 13:55:17 Problems Name Problem SNOMED Code Status Onset Date Resolution Date Notes Provider Name and Address Organization Details Recorded Time Heart failure with reduced ejection fraction 176220765 Active 2020 Desmond beyer, [place] - [facility] 13:41:26 Essential hypertension 66494118 Active 2020 Desmond [place]yer[place] [facility] 13:48:17 Hyperlipidemia 42075699 Active 2020 Desmond [place]yer[place] [facility] 13:48:29 Obstructive sleep apnea syndrome 90807798 Active 2020 Desmond beyer, [place] - [facility] 13:48:37 Subsequent non-ST segment elevation myocardial infarction 264429811 Active 2020 Desmond [place]yer[place] - [facility] 13:59:24 Obesity 904004227 Active 2020 Desmond beyer, [place] - [facility] 14:26:10 Problem Notes None recorded. Procedures Surgical History None recorded. Imaging Results Imaging Date Name Status LastModified by Organization Details LastModified Time 10/25/2020 electrocardiogram completed [email or web address] Sharif Basilio MD [address], [place], [address], 10/26/2020 14:26:29 10/01/2020 US, doppler, venous completed [facility] - Infor mation not available 10/27/2020 11:43:01 09/30/2020 US, echocardiogram completed Inform ation not available 10/27/2020 12:19:15 10/01/2020 electrocardiogram completed [facility] - Informa tion not available 10/27/2020 12:55:58 09/30/2020 XR, chest, 1 view completed [facility] Informa tion not available 10/27/2020 12:59:31 10/03/2020 catheter placement in coronary artery(s) for coronary angiography; with left heart catheterization including intraprocedural injection(s) for left ventriculography (PROC) completed [email or web address] Information not available 03/10/2021 13:24:48 11/07/2020 electrocardiogram completed naomy Basilio MD [address], [place], [address], 12/05/2020 17:10:42 10/26/2020 electrocardiogram completed [email or web address] Informa [...] Not Available Not Available FreeStyle Gerard 2 Snelling active Not Available Not Available Not Available Vitals Date Recorded Body height Body mass index (BMI) Body weight Heart rate Respiratory rate Oxygen saturation Oxygen saturation in Arterial blood by Pulse oximetry Systolic blood pressure Diastolic blood pressure Provider Name and Address Organization Details Last Updated DateTime 1 162.56 cm 42.6 kg/m2 321049. 91 g 70 /min 16 /min 92 % 92 % 114 mm[Hg] 82 mm[Hg] Jamila Britton [facility] 1 13:04:20 Date Recorded Body height Body mass index (BMI) Body weight Heart rate Oxygen saturation Oxygen saturation in Arterial blood by Pulse oximetry Inhaled oxygen flow rate Systolic blood pressure Diastolic blood pressure Provider Name and Address Organization Details Last Updated DateTime 1 162.56 cm 43.1 kg/m2 029422. 68 g 75 /min 97 % 97 % 4 L/min 118 mm[Hg] 84 mm[Hg] DAVID [place] - [facility] 11:48:40 Social History Question Answer Notes LastModified by Organizat ion Details LastModified Time Tobacco Smoking Status Former Smoker Desmond Padilla [facility] 10/26/2020 14:25:13 What Is Your Level Of Alcohol Consumption? Moderate [email or web address] Information not available 10/26/2020 Sex: Unknown Functional Status None recorded. Mental Status None recorded. Family History Nothing Reported Notes:No premature [place]. Medical History Condition Response Hyperlipidemia Y Hypertension Y Gynecological HistoryNo gynecological history recorded. Obstetrics History GPAL:G 0 P 0 0 0 0 Past Encounters Encounter ID Performer Location Encounter Start Date Encounter Closed Date Diagnosis/Indication Diagnosis SNOMED-CT Code Diagnosis ICD10 Code Diagnosis Note [id number] Desmond Padilla [place] OFFICE [address] [place] [address] 10/26/2020 12:49:39 10/26/2020 14:36:31 Heart failure with reduced ejection fraction 511685641 I50.21 Has nonischemi c cardiomyop athy, HF-rEF. She was in [facility] 09/30/20 with dyspnea, NSTEMI (peak trop I [...] (RVSP 42 mmHg). Begin cardiac rehab at [place]. Patient instructed to taper alcohol to off. Continue metoprolol and Lasix. Consider lisinopril and eventual spironolac tone. Obtain CMP, Mg, TSH, CBC, FLP. Hyperlipidemia 65659469 E78.5 Needs to keep LDL less than 70, and HDL more than 40. Obtain FLP. Obstructiv e sleep apnea syndrome 95467512 G47.33 She is now compliant with CPAP, with pulm. f/u. Essential hypertension 90327715 I10 Patient's blood pressure is {{well-con trolled* [...] diary. Subsequent non-ST segment elevation myocardial infarction 583325393 I22.2 Stable. Had [facility] 10/03/20: mild CAD (mLAD 40% followed by 50% disease which is diffuse from that point towards the end of the vessel), mild-moder ate LV systolic dysfunctio n (LVEF 40%) with nonischemi c cardiomyop athy. Continue ASA, Plavix, metoprolol , statin. Needs to keep LDL less than 70, and HDL more than 40. Maximal medical therapy. Obesity 685835304 E66.9 20 lb. weight loss recommende d over the next 2 months. [id number] [facility] OFFICE [address] [place] [address] 11/09/2020 11:31:16 11/09/2020 13:02:04 Heart failure with reduced ejection fraction 037817952 I50.21 Has nonischemi c cardiomyop athy, HF-rEF. She was in [facility] 09/30/20 with dyspnea, NSTEMI (peak trop I 1.25), and CHF exacerbati on in setting of hypertensi ve urgency, COPD exacerbati on, untreated TRAVIS, left leg cellulitis (treated with doxycyclin e), possible pneumonia, diuresed with Lasix 40 mg bid. Had [facility] 10/03/20: mild CAD (mLAD 40% followed [...] (RVSP 42 mmHg). Begin cardiac rehab at [place]. Patient instructed to taper alcohol to off. [...] weeks. Subsequent non-ST segment elevation myocardial infarction 902211364 I22.2 Stable. Had [facility] 10/03/20: mild CAD (mLAD 40% followed [...] more than 40. Maximal medical therapy. Hyperlipidemia 70625508 E78.5 Needs to keep LDL less than 70, and HDL more than 40. Had 10/28/20: LDL 83Increase d to rosuvastat in 40 mg qHS 11/09/20. Obstructiv e sleep apnea syndrome 07781476 G47.33 She is now compliant with CPAP, with pulm. f/u. Essential hypertension 35386181 I10 Patient's blood pressure is {{well-con trolled* [...] sodium or less daily). BP diary. Obesity 272858084 E66.9 20 lb. weight loss recommende d over the next 2 months. Health Concerns Section Related Observation LastModified by Organization Detai ls LastModified Time None Recorded Concern Status LastModified by Organization Details LastModified Time None Recorded Advance Directives Directive None Recorded Payers Encounter Date Sequence Insurance Name Policy Number Policy Garcia Covered Member ID Garcia Member ID Guarantor Name 10/26/2020 1 [place] PlasmaSi Christin [id number] 3 Ping Christin 10/26/2020 2 [place] [id number] PlasmaSi Christin [id number] Ping Christin 11/09/2020 1 [place] PlasmaSi Christin [id number] Ping Christin 11/09/2020 2 [place] [id number] PlasmaSi Christin [id number] Ping Christin Notes Date Note Type [...] hospital follow-up for HCF. She was in [facility] 09/30/20 with dyspnea, NSTEMI (peak trop I 1.25), and CHF exacerbation in setting of hypertensive urgency, COPD exacerbation, untreated TRAVIS, left leg cellulitis (treated with doxycycline), possible pneumonia, diuresed with Lasix 40 mg bid. [facility] 10/03/20: mild CAD (mLAD 40% followed by [...] stated in the HPI and ROS.*}} Had [facility] 10/03/20: mild CAD (mLAD 40% followed [...] K 3.6, Mg 1.7, Cr 0.8, Had [facility] 10/03/20: mild CAD (mLAD 40% followed [...] negative LE venous Doppler 09/2020. Desmond Padilla [place], [place] - [facility] 10/26/2020 14:36:29 [...] hospital follow-up for HCF. She was in [facility] 09/30/20 with dyspnea, NSTEMI (peak trop I 1.25), and CHF exacerbation in setting of hypertensive urgency, COPD exacerbation, untreated TRAVIS, left leg cellulitis (treated with doxycycline), possible pneumonia, diuresed with Lasix 40 mg bid. Had [facility] 10/03/20: mild CAD (mLAD 40% followed [...] 1.4, hgb 11.4, plt 108 lab result [id number] result : hgb 10.7, K 3.6, Mg 1.7, Cr 0.8,PT/INR 09-30-2020 electrocardiogram Had [facility] 10/03/20: mild CAD (mLAD 40% followed [...] view 09-30-2020 US, echocardiogram 09-30-2020 Desmond Padilla [facility] [place] - [facility] 11/09/2020 12:58:46 OBGyn Episode No OBEpisode recorded.
--- NOTE | 2024-05-12 19:38 | ECG_ITS ---
Test Date: 2024-05-12 20:05:05 Measurements Intervals [place] Rate: 95 P: 0 SC: 0 QRS: 82 QRSD: 88 T: 37 QT: 316 QTc: 399 Interpretive Statements ATRIAL FIBRILLATION LOW QRS VOLTAGE IN DIFFUSE LEADS POSSIBLE ANTERIOR MYOCARDIAL INFARCTION , OF INDETERMINATE AGE POSSIBLE INFERIOR INFARCT, AGE INDETERMINATE BASELINE ARTIFACT- I, II, V1-V6 ABNORMAL ECG Compared to ECG 11/01/2023 15:30:44 HEART RATE HAS DECREASED Electronically Signed On 05-13-2024 07:03:32 [employer] by Brian Anderson D.O.
--- OUTSIDE RECORDS SUMMARY | 2024-05-12 19:47 | XMS_ITS | Encounter Summary ---
Author Organization [employer] Address [address] [place] [address] Care Team Providers Care Skin Tanner Name Role Phone Juan David Yusuf MD Primary Care Provider +1- [phone] Encounter Details Date Type Department Care Team (Late st Contact Info) Description 04/01/1999 Outpatient Historical [facility] Isatu Grant MD Social History Tobacco Use Types Packs/Day Years Used Date Smoking Tobacco: Never Assessed Comments Unknown Sex and Gender Information Value Date Recorded Sex Assigned at Not on file Legal Sex Female 3:33 AM CRITICAL CARE UNIT MANAGER Gender Identity Not on file Sexual Orientation Not on file documented as of this encounter Plan of Treatment Not on file documented as of this encounter Visit Diagnoses Not on filedocumented in this encounter Care Teams Skin Tanner Relationship Specialty Start Date End Date Juan David Yusuf MD PCP - General Family Practice 01/14/18 documented as of this encounter
--- OUTSIDE RECORDS SUMMARY | 2024-05-12 19:47 | XMS_ITS | Referral Summary ---
Author Organization [facility] Address [address] [place] [address] Care Team Providers Care News Copy Editor Name Role Phone Meagan Yusuf MD Primary Care Provider + Encounters Date Type Department Care Team Description 05/08/2024 1:30 PM SDC TEACHER Office Visit [facility] Medical [facility] Cardiology [address] [place] [address] Allie Contreras NP Chronic HFrEF (heart failure with reduced ejection fraction) (CMS/HCC) (HCC) (Primary Dx); Persistent atrial fibrillation (HCC); Chronic anticoagulation; Frequent falls; TRAVIS on CPAP 05/01/2024 Telephone [facility] Cardiology [address] [facility] [address] [place] [address] Radha Jimenez MD Med Refill [...] drugs 03/23/2021 Coronary artery disease invo lving [place] coronary artery of [place] heart without angina pectoris 02/10/2021 Mixed hyperlipidemia [...] on file Legal Sex Female 4:29 PM SDC TEACHER Gender Identity Not on file Sexual Orientation Not on file Last Filed Vital Signs Vital Sign Reading Time Taken Comments Blood Pressure 124/88 05/08/2024 1:36 PM SDC TEACHER Pulse 92 05/08/2024 1:36 PM SDC TEACHER Temperature - - Respiratory Rate - - Oxygen Saturation 95% 05/08/2024 1:36 PM SDC TEACHER Inhaled Oxygen Concentration - - Weight 93 kg (205 lb) 05/08/2024 1:36 PM SDC TEACHER Height 165.1 cm (5' 5 ) 05/08/2024 1:36 PM SDC TEACHER Body Mass Index 34.11 05/08/2024 1:36 PM SDC TEACHER Plan of Treatment Not on file Insurance MEDICARE MEDICARE [facility] MEDICARE SUPPLEMENT Care Teams News Copy Editor Relationship Specialty Start Date End Date Meagan Yusuf MD PCP - General Family Medicine 05/22/23
--- OUTSIDE RECORDS SUMMARY | 2024-05-12 19:47 | XMS_ITS | Clinical Summary ---
Author Organization [facility] Address [address] [place] [address] Phone Care Team Providers Care Valuer Name Role Phone Juan David Yusuf MD Primary Care Provider +1- [phone] Allergies Active Allergy Reactions Criticality Noted Date [...] 6 Tablets 42 Tablet 01/30/2018 3:41 PM NON DESTRUCTIVE EVALUATION TECHNICIAN 8 Active Active Problems Problem Noted Date [...] on file Legal Sex Female 3:33 AM NON DESTRUCTIVE EVALUATION TECHNICIAN Gender Identity Not on file Sexual Orientation Not on file Last Filed Vital Signs Vital Sign Reading Time Taken Comments Blood Pressure 123/62 01/30/2018 12:28 PM NON DESTRUCTIVE EVALUATION TECHNICIAN Pulse 74 01/30/2018 12:28 PM NON DESTRUCTIVE EVALUATION TECHNICIAN Temperature 36.5 C (97.7 F) 01/30/2018 12:28 PM NON DESTRUCTIVE EVALUATION TECHNICIAN Respiratory Rate 10 01/30/2018 12:28 PM NON DESTRUCTIVE EVALUATION TECHNICIAN Oxygen Saturation 93% 01/30/2018 12:28 PM NON DESTRUCTIVE EVALUATION TECHNICIAN Inhaled Oxygen Concentration - - Weight 116.6 kg (257 lb) 01/28/2018 8:16 AM NON DESTRUCTIVE EVALUATION TECHNICIAN Height 167.6 cm (5' 6 ) 01/28/2018 8:16 AM NON DESTRUCTIVE EVALUATION TECHNICIAN Body Mass Index 41.48 01/28/2018 8:16 AM NON DESTRUCTIVE EVALUATION TECHNICIAN Plan of Treatment Health Maintenance Due Date Last Done Comments DTAP/TDAP/TD VACCINES (1 - Tdap) 12/21/1966 PNEUMOCOCCAL VACCINE 65+ YEARS (1 of 2 - PCV) 12/21/18 69 ZOSTER VACCINE (1 of 2) 12/21/1997 OSTEOPOROSIS SCREENING 12/21/2012 RSV VACCINE (60+ or ) (1 - 1-dose 75+ series) 12/21/2022 INFLUENZA VACCINE (#1) 2023 01/28/2018 Medical Devices Implanted Type Area Inventory Auditor Device Identifier Shelf Expiration Date Model / Serial / Lot Shell Ringlc+ Pc 54mm [id number] - [id number] Implanted:Qty: 1 on 11/08/2016 by Abhinav Quesada MD at [facility] Hip Right: Hip [employer] [id number] 09/27/2026 [id number] / / [id number] Liner Arcomxl Rnglc Sz24 Xl-[id number] - [id number] Implanted:Qty: 1 on 11/08/2016 by Abhinav Quesada MD at [facility] Hip Right: Hip [employer] [id number] 10/01/2020 [id number] / / [id number] Stem Fem Echo Bmtrc Por Red Lat [id number] - [id number] Implanted:Qty: 1 on 11/08/2016 by Abhinav Quesada MD at [facility] Hip Right: Hip [employer] [id number] 04/11/2025 [id number] / / [id number] Head Modular Noskt 36mm -3mm [id number] - [id number] Implanted:Qty: 1 on 11/08/2016 by Abhinav Quesada MD at [facility] Hip Right: Hip [employer] [id number] 09/25/2026 [id number] / / [id number] Rsp Glenoid Head W Retaining Screw Neutral Sz 32mm Implanted:Qty: 1 on 01/27/2018 by Guerrero Cho MD at [facility] Other Right: Shoulder [employer] 12/05/2023 508-32-10 1 / / [id number] Small Socket Insert 32mm Semi Constrained E Plus Implanted:Qty: 1 on 01/27/2018 by Guerrero Cho MD at [facility] Other Right: Shoulder [employer] 11/29/2022 509-03-03 2 / / [id number] Humeral Stem Small Shell [id number] Implanted:Qty: 1 on 01/27/2018 by Guerrero Cho MD at [facility] Other Right: Shoulder [employer] 11/22/2023 533-10-10 8 / / [id number] Description:All [employer] Surgical shoulder components are processed on requisition,[id number]. Rsp Glenoid Baseplate Implanted:Qty: 1 on 01/27/2018 by Guerrero Cho MD at [facility] Screw Right: Shoulder [employer] [id number] 10/23/2023 508-32-20 4 / / [id number] Rsp Bone Screw Locking Sz 5.0mm 30mm Long Implanted:Qty: 1 on 01/27/2018 by Guerrero Cho MD at [facility] Screw Right: Shoulder [employer] 06/25/2023 506-03- 0 / / [id number] Rsp Bone Screw Locking Sz 5.0mm 22 Mm Long Implanted:Qty: 1 on 01/27/2018 by Guerrero Cho MD at [facility] Screw Right: Shoulder [employer] 08/17/2023 506-12 2 / / [id number] Bone Screw Rsp5.0x26mm Long Implanted:Qty: 1 on 01/27/2018 by Guerrero Cho MD at [facility] Screw Right: Shoulder [employer] 6 / / Rsp Bone Screw- Locking Implanted:Qty: 1 on 01/27/2018 by Guerrero Cho MD at [facility] Right: Shoulder [employer] 11/01/2023 506-03-11 [id number] Insurance MEDICARE PART A AND B BCBS SUPP RX AET[employer] Medicare Part D RX [facility] Medicare Part D Advance Directives For more information, please contact: [phone] Documents on File Type Date Recorded Patient Nursery Helper Expl anation Advance Directive POA 02/04/2018 1:58 [...] 6:44 AM 11/08/2016 7:30 AM Care Teams Valuer Relationship Specialty Start Date End Date Juan David Yusuf MD PCP - General Family Practice 01/14/18
--- OUTSIDE RECORDS SUMMARY | 2024-05-12 19:47 | XMS_ITS | Encounter Summary ---
Author Organization [facility] Address [address] [place] [address] Care Team Providers Care Manager Web Name Role Phone Juan David Yusuf MD Primary Care Provider +1- [phone] Encounter Details Date Type Department Care Team (Late st Contact Info) Description 02/02/1999 Outpatient Historical [facility] Isatu Grant MD Social History Tobacco Use Types Packs/Day Years Used Date Smoking Tobacco: Never Assessed Comments Unknown Sex and Gender Information Value Date Recorded Sex Assigned at Not on file Legal Sex Female 3:33 AM DATA ENTRY TECHNICIAN Gender Identity Not on file Sexual Orientation Not on file documented as of this encounter Plan of Treatment Not on file documented as of this encounter Visit Diagnoses Not on filedocumented in this encounter Care Teams Manager Web Relationship Specialty Start Date End Date Juan David Yusuf MD PCP - General Family Practice 01/14/18 documented as of this encounter
--- OUTSIDE RECORDS SUMMARY | 2024-05-12 19:47 | XMS_ITS | Clinical Summary ---
Author Organization [facility] Address [address] [place] [id number] Care Team Providers Care Lunch Truck Operator Name Role Phone Meagan Yusuf MD Primary [...] (heart failure with reduced ejection fraction) (CMS/HCC) (FORMERLY [facility]) TAKE 1 TABLET BY MOUTH IN THE MORNING AND IN THE EVENING 60 tablet 11 5 Active sacubitriL-belinda sartan (Entresto) 24-26 mg tabletIndicati ons:Chronic HFrEF (heart failure with reduced ejection fraction) (CMS/HCC) (FORMERLY [facility]) TAKE 1 TABLET BY MOUTH IN THE [...] drugs 03/23/2021 Coronary artery disease invo lving [place] coronary artery of [place] heart without angina pectoris 02/10/2021 Mixed hyperlipidemia 02/10/2021 Chronic obstructive pulmonary disease 02/10/2021 Chronic respiratory failure with hypoxia (CMS/HC C) 02/10/2021 TRAVIS on CPAP 02/10/2021 Frequent falls 02/10/2021 Resolved Problems Problem Noted Date Diagnosed Date Resolved Date H/O cardiomyopathy 12/18/2021 Chronic heart failure with p reserved ejection fraction (CMS/HCC) 02/10/2021 01/15/2024 Encounters Date Type Department Care Team Description 05/08/2024 1:30 PM CARPET INSTALLATION SPECIALIST Office Visit [facility] Medical Group Cardiology [address] [address] [place] [phone] Allie Contreras NP Chronic HFrEF (heart failure with reduced ejection fraction) (CMS/HCC) (HCC) (Primary Dx); Persistent atrial fibrillation (HCC); Chronic anticoagulation; Frequent falls; TRAVIS on CPAP 05/01/2024 Telephone [facility] Medical [facility] Cardiology [address] [place] [phone] Radha Jimenez MD Med Refill from Last 3 Months Surgical History Surgery Date Site/Laterality Comments HYSTERECTOMY TOTAL SHOULDER REPLACEMENT Right HIP ARTHROPLASTY Medical History Medical History Date Comments ME, old CHF (congestive heart failure) (CMS/HCC) (HCC) [...] on file Legal Sex Female 4:29 PM CARPET INSTALLATION SPECIALIST Gender Identity Not on file Sexual Orientation Not on file Obstetrics History Last Filed Vital Signs Vital Sign Reading Time Taken Comments Blood Pressure 124/88 05/08/2024 1:36 PM CARPET INSTALLATION SPECIALIST Pulse 92 05/08/2024 1:36 PM CARPET INSTALLATION SPECIALIST Temperature - - Respiratory Rate - - Oxygen Saturation 95% 05/08/2024 1:36 PM CARPET INSTALLATION SPECIALIST Inhaled Oxygen Concentration - - Weight 93 kg (205 lb) 05/08/2024 1:36 PM CARPET INSTALLATION SPECIALIST Height 165.1 cm (5' 5 ) 05/08/2024 1:36 PM CARPET INSTALLATION SPECIALIST Body Mass Index 34.11 05/08/2024 1:36 PM CARPET INSTALLATION SPECIALIST Plan of Treatment Health Maintenance Due Date [...] 65+ Completed 05/08/2018, 12/24 Insurance MEDICARE MEDICARE [facility] MEDICARE SUPPLEMENT Member Subscriber Plan / Payer (Ef fective 2019-Present) Name:Ping Waller Relation to Subscriber:Self Name:Ping Waller Payer ID:[id number] Group ID:[id number] Type:COMMERCIAL Address: [facility] [id number] [place] [id number] Care Teams Lunch Truck Operator Relationship Specialty Start Date End Date Meagan Yusuf MD PCP - General Family Medicine 05/22/23
--- OUTSIDE RECORDS SUMMARY | 2024-05-12 19:47 | XMS_ITS | Encounter Summary ---
Author Organization [facility] Address 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
--- OUTSIDE RECORDS SUMMARY | 2024-05-12 19:47 | XMS_ITS | Continuity of Care Document ---
Author Organization [facility] Address [address] [place] [address] Phone Care Team Providers Care Objects Conservator Name Role Phone Guerrero Cho MD Unavailable [...] Copied on Encounter OFFICE/OUTPA TIENT VISIT EST [facility], [address] [place] [address], [id number], tel:[phone] [facility] Chaitanya Status post reverse total arthroplasty of right shoulderAfter care following right shoulder joint replacement surgery 9 Marquis Masters. [address], [place], [place], [id number] . tel: [phone] [facility], [address] [place] [address], [address], tel:[phone] [facility] Chaitanya s/p reverse right shoulder (chief complaint) Status post reverse total arthroplasty of right shoulder 8 Marquis Masters. [address] [facility] [address], [place], [place], [id number] . tel: [phone] [facility], [address] [place] [address], [address], tel:[phone] [facility] Other specific arthropathies , not elsewhere classified, right shoulder 8 Marquis Masters. [address], [place], [place], [id number] . tel: [phone] OFFICE/OUTPA TIENT VISIT EST [facility], [address] [place] [address], [address], [phone] [facility] Complete tear of right rotator cuffPrimary osteoarthriti s of right shoulder 0 8 Marquis Mastesr. [address] [address] [facility] [address], [place], [place], [id number] . tel: [phone] OFFICE/OUTPA TIENT VISIT EST [facility], [address] [place] [address], [address], [place] tel:[phone] [facility] [place] RT SHOULDER INJURY 7\ (chief complaint) Body mass index (BMI) 40.0-44.9, adultComplete tear of right rotator cuff 8 Sangita Abhinav. [address] [place] [address], [id number] . tel: [phone] Referring Provider: Juan David Patiño, [address], [place], [address]. tel:[phone] OFFICE/OUTPA TIENT VISIT [facility], [address] [place] [address], [address], [place] tel:[phone] [facility] History of total right hip arthroplasty 8 Sangita La. [address] [place] [address], [id number] . tel: [phone] Referring Provider: Meagan Wren, PERMANENTLY CLOSED [address] [place], [place], [address]. tel:[phone] [facility], [address] [place] [address], [address], [place] tel:[phone] [facility] History of total right hip arthroplasty 7 Sangita La. [address] [place] [address], [id number] . tel: [phone] [facility], [address] [place] [address], [address], [place] tel:[phone] [facility] [place] R YANIRA 11/08/16 (chief complaint) History of total right hip arthroplasty 7 Michael Lemos. [address] [place] [address] [address], [place], [place], [id number] . tel: [phone] [facility], [address] [place] [address], [address], [phone] [facility] R YANIRA 11/08/16 (chief complaint) History of total right hip arthroplasty Sep-0 7 Michael Lemos. [address] [place] [address] [address], [place], [place], [id number] . tel: [phone] [facility], [address] [place] [address], [address], [place] tel:[phone] [facility] No Information Sangita La. [address] [place] [address], [id number] . tel: [phone] OFFICE/OUTPA TIENT VISIT EST [facility], [address] [place] [address], [id number], tel:[phone] [facility] Follow Up of after right hip mri (chief complaint) Primary osteoarthriti s of right hipHip abductor tendinitis, right 7 Sangita La. [address] [place] [address], [id number] . tel: [phone] OFFICE/OUTPA TIENT VISIT [facility], [address] [place] [address], [address], [place] [phone] [facility] R hip (chief complaint) Body mass index (BMI) 38.0-38.9, adultPrimary osteoarthriti s of right hipHip abductor tendinitis, right 7 Sangita La. [address] [place] [address], [id number] . tel: [phone] Referring Provider: Kristel Villegas, [address], [place], [address]. tel:[phone] Family History Family Member Type Diagnosis Age At Onset Brother Problem (finding) Alive and well Immunizations Vaccine Date Status Comments Pneumo (2 yrs or older)(PPV) administered Source: Other Provider Payers Payer name Insurance type Covered republican ID Lela gong(s) Medicare E2 [id number] [place] Medicare Supplement E2 OT [id number] Social History Type Description Quantity Date [...]
--- NOTE | 2024-05-12 20:07 | ED.GENADULT ---
HPI - General Adult General Chief complaint: Fall Stated complaint: fall; black eye Time Seen by Provider: 05/12/24 19:26 History of Present Illness HPI narrative: This is a 78-year-old male on Xarelto presenting after ground level fall. Patient says that she tripped falling and striking her head. She is unsure if she lost consciousness. She has significant eliazar-orbital ecchymosis of the right eye. She is also complaining left hand and wrist pain. Patient is a poor historian. Per the family she has been having fluctuating mental status over the last 1-2 months. She has now started hallucinating and is more confused than usual. They believe that she is having falls although she is calling them to tell them. He has not believe she is safe with her own house alone anymore. Related Data Home Medications ?Medication ?Instructions ?Recorded ?Confirmed ?Last Taken ?Type loperamide 2 mg capsule 4 mg PO DAILY 08/12/23 05/05/24 Unknown History (Anti-Diarrheal (loperamide)) sacubitril 24 mg-valsartan 26 mg 1 tablet PO Q12HR 11/01/23 05/05/24 10/31/23 History tablet (Entresto) metoprolol tartrate 100 mg tablet mg PO 05/05/24 05/05/24 Unknown History Allergies Allergy/AdvReac Type Severity Reaction Status Date / Time Penicillins Allergy Mild Rash Verified 05/05/24 13:58 thiopental (From Pentothal) AdvReac Intermediate Nausea and Verified 05/05/24 13:58 Vomiting [facility] Past Medical History Medical History (Updated 05/12/24 @ 22:35 by Francisco Villanueva MD) Hemarthrosis of knee, left Degenerative joint disease of knee Patellar bursitis of left knee Left knee pain Acute hypoxic respiratory failure Atrial fibrillation with RVR Pulmonary edema Prepatellar bursitis, left knee UTI (urinary tract infection) Hematoma and contusion Periorbital hematoma of both eyes Hypotension Contusion of face Acute kidney injury superimposed on CKD Acute on chronic respiratory failure with hypoxia and hypercapnia Alcohol dependence Left shoulder pain Azotemia Acute exacerbation of CHF (congestive heart failure) Hypertensive urgency NSTEMI (non-ST elevated myocardial infarction) Hyperglycemia Elevated troponin level CHF exacerbation Chronic respiratory failure with hypoxia Pulmonary hypertension Restless leg syndrome Ulcerative colitis 2018 colonoscopy negative (cologuard +). COVID-19 Peripheral neuropathy Lung nodules 09/2018: stable R apex nodule/ multiple other nodules/emphysema LDCT: stable Alcohol abuse Cervical disc disorder with radiculopathy of cervicothoracic region Murmur, cardiac Nicotine dependence, unspecified, in remission 40 pack year/ quit 2009 LDCT emphysema, multiple nodules Postmenopausal Chronic depression Continuous leakage of urine Mixed hyperlipidemia Primary osteoarthritis of right hip Pulmonary HTN RLS (restless legs syndrome) Oxygen dependent Surgical History Surgical History History of hysterectomy History of total right hip arthroplasty History of total replacement of right shoulder joint History of appendectomy History of carpal tunnel surgery of left wrist (03/02/20) Family History Family History Mother Family history of osteoporosis Family history of mental disorder Family history of anemia Family history of arthritis Family history of malignant neoplasm Family history of Alzheimer's disease Patient's mother is Sibling Family history of malignant neoplasm of uterus Family history of malignant neoplasm of cervix Patient's sister is Daughter Crohn disease Other Cerebrovascular accident Family history of cardiovascular disease Family history of glaucoma Social History Social History Social History: Surrogate decision maker: Shantal Pond, daughter. Code status: Full code. Smoking packs per day: 1 Smoking cigarettes per day: 20.0 Years smoked: 50 Smoking pack-years: 50.00 Smoking status: Former smoker Tobacco type: cigarettes Smoking end date: 03/25/03 Alcohol intake: former Substance use: never Substance use type: does not use Do You Feel Safe in your Home?: Yes Lack of Transportation: No Lack of Food: Never True Current Housing: I Have Housing Concerned About Future Housing: No Difficulty Paying Gas/Electric Bills: No Difficulty Paying for Meds: No Currently Unemployed: No Education: High School Diploma/GED Difficulty w/ Childcare or Family Care: No Living arrangements: alone Additional living arrangements comments: The patient lives in her own home in [place]. Additional occupation/education comments: Retired. Spiritual care concerns: No Exam Narrative: APPEARANCE: No apparent distress. A&O x3 Head: atraumatic. EYES: EOMI, NOSE: Atraumatic NECK: Trachea midline RESPIRATORY: No increased rate of breathing clear to auscultation CARDIOVASCULAR: RRR, no peripheral edema ABDOMINAL: Non-distended soft nontender MUSCULOSKELETAL: No obvious deformities head to toe trauma exam performed, multiple areas of bruising pain over the left and wrist NEURO: Alert. Cranial nerves 2-12 grossly intact. Sensation light touch, motor function cerebellar function intact for 4 extremities. Gait exam was normal. SKIN:: Bruising over the right flank, resumed with the posterior thigh PSYCHIATRIC: Normal affect Course Vital Signs Vital signs: Vital Signs Temperature 97.7 F 05/12/24 19:19 Pulse Rate 100 05/12/24 19:19 Respiratory Rate 17 05/12/24 19:19 Blood Pressure 126/75 05/12/24 19:19 Pulse Oximetry 92 05/12/24 19:19 Oxygen Delivery Room Air 05/12/24 19:19 Temperature 97.7 F 05/12/24 19:19 Pulse Rate 100 05/12/24 19:19 Respiratory Rate 17 05/12/24 19:19 Blood Pressure 126/75 05/12/24 19:19 Pulse Oximetry 92 05/12/24 19:19 Oxygen Delivery Room Air 05/12/24 19:19 Medical Decision Making MDM Narrative Medical decision making narrative: -Course: 78-year-old female presenting with multiple falls and significant facial trauma. CT holder scan showed a right orbital floor blowout fracture with herniation of orbital fat and thickening of the inferior rectus muscle. No evidence of entrapment on exam. She does have significant periorbital ecchymosis and bloody chemosis and I am unable to do a proper eye exam due to the extent of her swelling. Patient will have to be transferred to [facility] for ophthalmology evaluation. The rest of her workup was significant for a urinary tract infection she has received 1 dose of ceftriaxone. Patient was accepted ED to ED at [facility] by Dr. Galeana. -DDX includes but is not limited to: Sepsis UTI dehydration traumatic injury Vital Signs Vital Signs: Vital Signs Temperature 97.7 F 05/12/24 19:19 Pulse Rate 100 05/12/24 19:19 Respiratory Rate 17 05/12/24 19:19 Blood Pressure 126/75 05/12/24 19:19 Pulse Oximetry 92 05/12/24 19:19 Oxygen Delivery Room Air 05/12/24 19:19 Temperature 97.7 F 05/12/24 19:19 Pulse Rate 100 05/12/24 19:19 Respiratory Rate 17 05/12/24 19:19 Blood Pressure 126/75 05/12/24 19:19 Pulse Oximetry 92 05/12/24 19:19 Oxygen Delivery Room Air 05/12/24 19:19 Discharge Plan Discharge Clinical Impression: Frequent falls, Acute UTI, Closed blow-out fracture of right orbital floor, Hand pain Patient Disposition: Acute Care Hospital Condition: Stable Patient Language: Urdu Prescriptions: No Action diltiazem HCl 180 mg tablet extended release 24 hr 180 mg PO DAILY Qty: 30 0RF metoprolol tartrate 100 mg tablet PO albuterol sulfate 2.5 mg /3 mL (0.083 %) solution for nebulization 2.5 mg INHALATION BID PRN (Reason: Shortness Of Breath) Qty: 90 2RF Ozempic 1 mg/dose (4 mg/3 mL) pen injector 1 mg subcut WEEKLY Qty: 3 10RF Rx Instructions: Takes on loperamide [Anti-Diarrheal (loperamide)] 2 mg Capsule 4 mg PO DAILY acetaminophen 325 mg Tablet 650 mg PO Q4H PRN (Reason: Mild Pain (1-3) Or Fever) Qty: 30 0RF famotidine 20 mg Tablet 20 mg PO Q12HR Qty: 30 0RF ipratropium-albuterol 0.5 mg-3 mg(2.5 mg base)/3 mL Solution For Nebulization 3 ml inhalation [id number] Qty: 90 0RF Rx Instructions: x 3 days then change to as needed if no further wheezing Entresto 24-26 mg tablet 1 tablet PO Q12HR (DME) nebulizers Misc See Rx Instructions .Route Qty: 1 0RF Rx Instructions: As directed cyanocobalamin (vitamin B-12) [Vitamin B-12] 1,000 mcg tablet 1,000 mcg PO QAM 90 Days Qty: 90 3RF furosemide [Lasix] 40 mg tablet 40 mg PO DAILY Qty: 90 1RF gabapentin 300 mg capsule 300 mg PO TID Qty: 90 3RF pramipexole 1 mg tablet 1 mg PO HS Qty: 90 3RF rivaroxaban 20 mg tablet 20 mg PO DAILY Qty: 90 2RF Rx Instructions: must administer with evening meal potassium chloride 10 mEq tablet extended release 20 meq PO BID Qty: 60 3RF sertraline 100 mg tablet 100 mg PO QAM Qty: 90 0RF Rx Instructions: TAKE 1 TABLET BY MOUTH DAILy folic acid 1 mg tablet 1 mg PO DAILY Qty: 90 3RF ropinirole 0.5 mg tablet 1 mg PO TID 30 Days Qty: 180 3RF rosuvastatin 20 mg tablet 20 mg PO DAILY Qty: 90 1RF balsalazide 750 mg capsule See Rx Instructions .ROUTE .COMPLEX Qty: 270 1RF Dose Instruction: TAKE 3 CAPSULES BY MOUTH THREE TIMES DAILY Rx Instructions: TAKE 3 CAPSULES BY MOUTH THREE TIMES DAILY Follow-up/Referrals: Meagan Yusuf MD [Primary Care Provider] -
[2024-05-12 20:13] LABS: Glucose Point of Care 92 mg/dl (65-105)
[2024-05-12 20:19] LABS: Basophils Percent Auto 0.2 % (0.2-1.2); Eosinophils Absolute Auto 0.1 K/mm3 (0-0.3); Eosinophils Percent Auto 1.6 % (0-4.4); Hematocrit 31.5 % (37.0-47.0); Hemoglobin 9.6 g/dL (12.0-15.0); Immature Granulocyte Absolute 0.01 K/mm3 (0.00-0.031); Immature Granulocyte Percent A 0.2 % (0-0.5); Immature Platelet Fraction Pct 4.4 % (0.9-11.2); Lymphocytes Absolute Auto 0.68 K/mm3 (0.9-3.2); Lymphocytes Percent Auto 11.9 % (18.3-44.2); Mean Corpuscular HGB Conc 30.5 g/dl (32-36); Mean Corpuscular Hemoglobin 30.1 pg (26-34); Mean Corpuscular Volume 98.7 fl (80-100); Mean Platelet Volume 10.9 fl (7.4-10.4); Monocytes Absolute Auto 0.4 K/mm3 (0.1-0.6); Monocytes Percent Auto 7.3 % (2.6-8.5); Neutrophils Absolute Auto 4.5 K/mm3 (1.3-6.7); Neutrophils Percent Auto 78.8 % (45.5-73.1); Platelet Count Result 119 k/mm3 (150-375); Red Blood Count 3.19 M/mm3 (4.2-5.4); Red Cell Distribution Width 14.7 % (11.5-14.5); White Blood Count 5.7 K/mm3 (4.5-10.0)
[2024-05-12 20:29] LABS: Ethanol < 10 mg/dL (<10); Lactic Acid Reflex 0.6 mmol/L (0.7-2.0); Lipase 43 U/L (23-300); Magnesium 2.1 mg/dL (1.6-2.3); Phosphorus 3.5 mg/dL (2.5-4.5)
[2024-05-12 20:41] LABS: Alanine Aminotransferase 16 U/L (6-35); Albumin Level 3.7 g/dL (3.5-5.1); Alkaline Phosphatase 53 U/L (38-126); Anion Gap 4 mmol/L (4-12); Aspartate Amino Transferase 30 U/L (14-36); Bilirubin,Total 1.7 mg/dL (0.2-1.3); Blood Urea Nitrogen 34 mg/dL (7-17); Calcium 8.9 mg/dL (8.4-10.2); Carbon Dioxide 36 mmol/L (22-30); Chloride 100 mmol/L (98-107); Estimated CRCL calculation 65 ml/min; Estimated Glomerular Filt Rate > 60; Glucose 91 mg/dL (65-110); INR 1.1; Potassium 4.5 mmol/L (3.4-5.0); Prothrombin Time 14.1 Seconds (11.1-14.7); Sodium 140 mmol/L (137-145); Troponin I < 0.012 ng/mL (0.000-0.034)
[2024-05-12 20:42] LABS: Partial Thromboplastin Time 31.3 Seconds (22.3-36.8)
[2024-05-12 20:57] LABS: Influenza A QL RT-PCR Negative (Negative); Influenza B QL RT-PCR Negative (Negative); RSV RNA, RT-PCR Negative (Negative); SARS-CoV-2 RNA PCR Negative (Negative)
[2024-05-12 21:51] LABS: Add Urine Microscopic? YES; Appearance Urine Cloudy (Clear); Bacteria Urine Rare /hpf; Bilirubin Urine Negative (Negative); Blood Urine Non-Hemolyzed Trace (Negative); Color Urine Yellow (Yellow); Glucose Urine UA Negative (Negative); Ketones Urine Negative (Negative); Leukocyte Esterase Ur 3+ LEU/UL (Negative); Nitrate Urine Negative (Negative); Non Pathogenic Casts 0-2; Protein Urine Trace mg/dL (Negative); RBC Urine 0-2 /hpf (0-2); Specific Grav Ur 1.042 (1.001-1.035); Squamous Epithelial Cell Urine None Seen /hpf (Few); Urobilinogen Urine 0.2 mg/dL (<2.0); WBC Urine >100 /hpf (0-3); pH Urine 5.5 (5.0-9.0)
[2024-05-12 22:06] LABS: Amphetamine Screen Urine Negative (Negative); Barbiturate Screen Urine Negative (Negative); Benzodiazepines Screen Urine Negative (Negative); Cannabinoid Screen Urine Negative (Negative); Cocaine Screen Urine Negative (Negative); Methadone Screen Urine Negative (Negative); Opiate Screen Urine Negative (Negative); Phencyclidine Screen Urine Negative (Negative)
== END 2024-05-13 01:15 | disposition short-term general hospital (02) ==
PROVIDERS: Emergency Provider Emergency Medicine; PCP Family Medicine
DX: S02.31XA Fracture of orbital floor, right side, initial encounter for closed fracture (principal); S60.222A Contusion of left hand, initial encounter; S60.212A Contusion of left wrist, initial encounter; N39.0 Urinary tract infection, site not specified; R29.6 Repeated falls; I48.91 Unspecified atrial fibrillation; I27.20 Pulmonary hypertension, unspecified; I50.9 Heart failure, unspecified; I25.2 Old myocardial infarction; J96.11 Chronic respiratory failure with hypoxia; J96.12 Chronic respiratory failure with hypercapnia; Z99.81 Dependence on supplemental oxygen; E78.2 Mixed hyperlipidemia; M17.9 Osteoarthritis of knee, unspecified; M16.11 Unilateral primary osteoarthritis, right hip; G25.81 Restless legs syndrome; G62.9 Polyneuropathy, unspecified; F32.A Depression, unspecified; Z96.641 Presence of right artificial hip joint; Z96.611 Presence of right artificial shoulder joint; Z86.16 Personal history of COVID-19; Z87.891 Personal history of nicotine dependence; Z90.710 Acquired absence of both cervix and uterus; Z79.01 Long term (current) use of anticoagulants; Z79.85 Long-term (current) use of injectable non-insulin antidiabetic drugs; Z79.899 Other long term (current) drug therapy; W01.0XXA Fall on same level from slipping, tripping and stumbling without subsequent striking against object, initial encounter
CPT/HCPCS: 36415; 70450; 70486; 71045; 71260; 72125; 72170; 73110; 73130; 74177; 80053; 80307; 81001; 82077; 82948; 83605; 83690; 83735; 84100; 84443; 84484; 85025; 85055; 85610; 85730; 87077; 87086; 87186; 87637; 93005; 96361; 96365; 99285; J0696; Q9967

== ENCOUNTER 2024-06-05 17:02 | Emergency (ER) | payer MEDICARE, SELFPAY ==
--- NOTE | ~2024-06-05 | CT_ITS ---
CTA chest PE protocol Ordering provider: Marleni Cohn PA-C History: 78 years Female with . sob, covid, off blood thinners . Comparison: None. Technique: CT angiogram chest was performed following timed intravenous injection of contrast. Thin s lice axial images and reformatted coronal images were obtained. Three dimensional reformatted images of the chest were also obtained using a [employer] workstation. . Automated exposure control and iterati ve reconstruction technique were employed. The dose-length product was 813.97 mGy-cm. 100 mL Omnipaqu e 350 was given IV. Findings: PULMONARY ARTERIES: No pulmonary embolus. VISUALIZED THORACIC INLET: Normal. MEDIASTINUM: Aorta/coronary arteries: Mild atheromatous disease. Heart/other: The heart is slightly enlarged. Lymph nodes: No mediastinal or hilar adenopathy. LUNGS: No pulmonary nodules or masses. No infiltrates or effusions. No pneumothorax. VISUALIZED UPPER ABDOMEN: Sliding hiatus hernia. Otherwise, the visualized upper abdomen is normal. MUSCULOSKELETAL: Soft tissues: The superficial soft tissues are normal. Bones: Age appropriate degenerative changes of the spine. Right shoulder arthroplasty. Left shoulder severe osteoarthritis. Healing fracture in the left 11th rib. Old fracture in the left ninth rib. IMPRESSION: 1. No pulmonary embolism. 2. No acute cardiopulmonary pathology. 3. Small sliding hiatus hernia. Reviewed, dictated and finalized at location A.
--- NOTE | ~2024-06-05 | XR_ITS ---
XR chest 1V portable Ordering provider: Danny Huertas MD History: 78 years Female with . AFIB RVR . Comparison: May 12, 2024 FINDINGS: MEDIASTINUM: The cardiac silhouette is moderately enlarged. Congestive curtis. LUNGS: No pneumothorax. Opacification in the left lung base suggestive of atelectasis versus pneumoni a with possible effusion. Minimal bilateral interstitial thickening. OTHER: No free air under the diaphragm. Right shoulder arthroplasty. IMPRESSION: Left basilar atelectasis versus pneumonia with possible effusion. Underlying pulmonary edema is not e xcluded. Reviewed, dictated and finalized at location A. IMPRESSION: Left basilar atelectasis versus pneumonia with possible effusion. Underlying pu lmonary edema is not excluded.
[2024-06-05 17:00] VITALS: BP 112/76; PULSE 120; RESP 20; O2SAT 94
--- NOTE | 2024-06-05 17:05 | ECG_ITS ---
Test Date: 2024-06-05 17:56:50 Measurements Intervals [place] Rate: 125 P: 0 AR: 0 QRS: -43 QRSD: 94 T: 123 QT: 288 QTc: 415 Interpretive Statements ATRIAL FIBRILLATION WITH RAPID VENTRICULAR RESPONSE POSSIBLE ANTERIOR MYOCARDIAL INFARCTION , AGE INDETERMINATE Electronically Signed On 06-07-2024 13:52:49 CDT by Britton Mancera D.O
--- NOTE | 2024-06-05 17:57 | ED_ITS ---
HPI - Arrhythmia/Palpitations General Chief Complaint: Arrhythmia/Palpitations Stated Complaint: AFIB RVR Time Seen by Provider: 06/05/24 17:26 Source: patient Mode of arrival: EMS Limitations: no limitations History of Present Illness HPI narrative: Patient is a 78-year-old female who presents to the ED via EMS with report of AFib with RVR. Patient is currently at [facility] after fall on 05/13 which resulted in left wrist fracture, orbital floor fracture, intraparenchymal hemorrhage. Discharged to [facility]. Has been doing well. Patient was found to be in AFib with RVR around 1pm today. Sent to the ED for further evaluation. Patient does have history of AFib. On diltiazem and metoprolol. Had previously been on Xarelto, on hold at this time d/t recent brain bleed. Patient feels slightly lightheaded currently. Denies feeling her heart race. Denies CP. Denies worsening SOB. Is chronically on 4L NC. Hx of COPD, CHF, pulmonary HTN. Denies increased swelling in legs. Has had a cough for the past 3-4 days. Related Data Home Medications ?Medication ?Instructions ?Recorded ?Confirmed ?Last Taken ?Type sacubitril 24 mg-valsartan 26 mg 1 tablet PO Q12HR 11/01/23 05/27/24 10/31/23 History tablet (Entresto) metoprolol tartrate 100 mg tablet 100 mg PO Q12H 05/05/24 05/27/24 Unknown History acetaminophen 500 mg capsule 1,000 mg PO Q6H 05/27/24 05/27/24 Unknown History cholecalciferol (vitamin D3) 25 2,000 unit PO DAILY 05/27/24 05/27/24 Unknown History mcg (1,000 unit) tablet diltiazem HCl 180 mg 90 mg PO DAILY 05/27/24 05/27/24 Unknown History tablet,extended release 24 hr erythromycin 5 mg/gram (0.5 %) eye 1 applic RIGHT EYE BID 05/27/24 05/27/24 Unknown History ointment oxycodone 5 mg tablet 5 mg PO Q6H PRN pain 05/27/24 05/27/24 Unknown History polyethylene glycol 3350 17 17 g PO DAILY 05/27/24 05/27/24 Unknown History gram/dose oral powder ropinirole 0.5 mg tablet 0.5 mg PO TID 05/27/24 05/27/24 Unknown History sennosides 8.6 mg-docusate sodium 2 tab-cap PO BID 05/27/24 05/27/24 Unknown History 50 mg tablet sertraline 100 mg tablet 100 mg PO DAILY 05/27/24 05/27/24 Unknown History tobramycin 0.3 %-dexamethasone 2 drp RIGHT EYE Q6H 05/27/24 05/27/24 Unknown History 0.05 % eye drops,suspension (Tobradex ST) Allergies Allergy/AdvReac Type Severity Reaction Status Date / Time Penicillins Allergy Mild Rash Verified 05/27/24 22:27 thiopental (From Pentothal) AdvReac Intermediate Nausea and Verified 05/27/24 22:27 Vomiting Review of Systems 2 Review of Systems: All systems reviewed & are unremarkable except as noted in HPI. All systems reviewed & are unremarkable except as noted in HPI and below PMFSH Past Medical History Medical History Hemarthrosis of knee, left Degenerative joint disease of knee Patellar bursitis of left knee Left knee pain Acute hypoxic respiratory failure Atrial fibrillation with RVR Pulmonary edema Prepatellar bursitis, left knee UTI (urinary tract infection) Hematoma and contusion Periorbital hematoma of both eyes Hypotension Contusion of face Acute kidney injury superimposed on CKD Acute on chronic respiratory failure with hypoxia and hypercapnia Alcohol dependence Left shoulder pain Azotemia Acute exacerbation of CHF (congestive heart failure) Hypertensive urgency NSTEMI (non-ST elevated myocardial infarction) Hyperglycemia Elevated troponin level CHF exacerbation Chronic respiratory failure with hypoxia Pulmonary hypertension Restless leg syndrome Ulcerative colitis 2018 colonoscopy negative (cologuard +). COVID-19 Peripheral neuropathy Lung nodules 09/2018: stable R apex nodule/ multiple other nodules/emphysema LDCT: stable Alcohol abuse Cervical disc disorder with radiculopathy of cervicothoracic region Murmur, cardiac Nicotine dependence, unspecified, in remission 40 pack year/ quit 2009 LDCT emphysema, multiple nodules Postmenopausal Chronic depression Continuous leakage of urine Mixed hyperlipidemia Primary osteoarthritis of right hip Pulmonary HTN RLS (restless legs syndrome) Oxygen dependent Surgical History Surgical History History of hysterectomy History of total right hip arthroplasty History of total replacement of right shoulder joint History of appendectomy History of carpal tunnel surgery of left wrist (03/02/20) Family History Family History Mother Family history of osteoporosis Family history of mental disorder Family history of anemia Family history of arthritis Family history of malignant neoplasm Family history of Alzheimer's disease Patient's mother is Sibling Family history of malignant neoplasm of uterus Family history of malignant neoplasm of cervix Patient's sister is Daughter Crohn disease Other Cerebrovascular accident Family history of cardiovascular disease Family history of glaucoma Social History Social History Social History: Surrogate decision maker: Shantal Pond, daughter. Code status: Full code. Smoking packs per day: 1 Smoking cigarettes per day: 20.0 Years smoked: 50 Smoking pack-years: 50.00 Smoking status: Former smoker Tobacco type: cigarettes Second hand tobacco smoke exposure: Yes Smoking end date: 03/25/03 Alcohol intake: never Substance use: never Substance use type: does not use Do You Feel Safe in your Home?: Yes Lack of Transportation: YES Lack of Food: Never True Current Housing: I Have Housing Concerned About Future Housing: No Difficulty Paying Gas/Electric Bills: No Difficulty Paying for Meds: No Currently Unemployed: No Education: High School Diploma/GED Difficulty w/ Childcare or Family Care: No Living arrangements: alone Additional living arrangements comments: The patient lives in her own home in [place]. Additional occupation/education comments: Retired. Spiritual care concerns: No Exam 2 Narrative: GENERAL: Chronically ill appearing, non-toxic, in no acute distress. HEAD: Normocephalic, atraumatic. EYES: PERRL/EOMI, slight haziness of R conjunctiva with periorbital swelling. No crepitus. ENT: Old ecchymosis around chin/neck. RESPIRATORY: Airway patent, respirations nonlabored. Diffuse rhonchi in bases bilaterally, occ wheezing. On 4L NC. CARDIOVASCULAR: Borderline tachycardic with irregular rhythm without murmurs, rubs, or gallops. Peripheral pulses intact. MUSCULOSKELETAL: Moves all extremities. No gross deformities. No peripheral edema. SKIN: Warm, dry, normal color. NEURO: A&O X3. Speech clear. Cranial nerves II-XII grossly intact. Steady gait. No ataxic movements. PSYCHIATRIC: Appropriate mood and affect. Normal interaction. Course Vital Signs Vital signs: Vital Signs Pulse Rate 120 H 06/05/24 17:00 Respiratory Rate 20 06/05/24 17:00 Blood Pressure 112/76 06/05/24 17:00 Pulse Oximetry 94 06/05/24 17:00 Oxygen Delivery Nasal Cannula 06/05/24 17:00 Oxygen Flow Rate 4 06/05/24 17:00 Pulse Rate 88 06/06/24 00:28 Respiratory Rate 20 06/06/24 00:28 Blood Pressure 156/93 H 06/05/24 22:01 Pulse Oximetry 94 06/06/24 00:28 Oxygen Delivery Nasal Cannula 06/05/24 17:00 Oxygen Flow Rate 4 06/05/24 17:00 MDM - Arrhythmia/Palpitations MDM Narrative Medical decision making narrative: Patient presented to ED from [facility] with report of AFib with RVR. History of recent trauma/prolonged hospitalization at outside hospital. Does have history of AFib, on metoprolol and diltiazem. Had previously been on Xarelto, but this is currently on hold due to recent brain bleed related to trauma. Patient tachycardic upon arrival, irregular. EKG with AFIB w RVR, rates ranging from 120s-140s. No significant ST changes. Patient denying CP. Patient was given 1 dose of 10 mg of Cardizem IV push. Now in rate controlled AFib. Repeat EKG obtained. BP remaining stable. CBC without leukocytosis. Hemoglobin is slightly low at 9.5, but stable per previous records. CMP is fairly unremarkable. Stable kidney function. Stable electrolytes. Blood glucose is mildly elevated to 153. Magnesium within normal range. Baseline troponin is undetectable. BNP is moderately elevated to 3420. Chest x-ray with evidence of pulmonary edema, possible left-sided pleural effusion. Possible PNA. Patient w/o significant peripheral edema on exam, but was given dose of 40 mg IV Lasix here. She does report recent dry cough. Denies fevers. She tested positive for COVID-19 here. Low suspicion for acute pneumonia. However given that patient is now off of her blood thinners, COVID positive, recent cough/shortness of breath, recent hospitalizations/immobilizations- CTA of chest was obtained and without evidence of pneumonia or other cardiopulmonary abnormality, no PE. Patient has been monitored in the ED for several hours. She has remained in rate controlled AFib and has not required any further rate-controlling agents. Otherwise hemodynamically stable. She was advised of diagnosis of COVID-19, but feel she is otherwise safe for discharge back to rehab facility. Patient is in agreement with this plan. She feels comfortable going back to rehab facility. She denies worsening shortness breath than usual. Has remained stable on her normal home O2. Discussed very strict return precautions. She agrees with plan. Discharged back in stable condition. Medical Records Attestation: I reviewed the patient's medical records. Lab Data Attestation: I reviewed the patient's lab results. 06/05/24 18:55 06/05/24 18:55 Labs: Lab Results 06/05/24 06/05/24 Range/Units 18:55 20:02 WBC 5.2 (4.5-10.0) K/mm3 RBC 3.22 L (4.2-5.4) M/mm3 Hgb 9.5 L (12.0-15.0) g/dL Hct 32.4 L (37.0-47.0) % MCV 100.6 H (80-100) fl MCH 29.5 (26-34) pg MCHC 29.3 L (32-36) g/dl RDW 15.1 H (11.5-14.5) % Plt Count 165 (150-375) k/mm3 MPV 10.8 H (7.4-10.4) fl Immature Gran % (Auto) 1.1 H (0-0.5) % Neut % (Auto) 87.2 H (45.5-73.1) % Lymph % (Auto) 8.4 L (18.3-44.2) % Bucks % (Auto) 3.1 (2.6-8.5) % Eos % (Auto) 0.0 (0-4.4) % Baso % (Auto) 0.2 (0.2-1.2) % Lymph # (Auto) 0.44 L (0.9-3.2) K/mm3 Bucks # (Auto) 0.2 (0.1-0.6) K/mm3 Eos # (Auto) 0.0 (0-0.3) K/mm3 Baso # (Auto) 0.0 (0.0-0.1) K/mm3 Abs Immat Gran (auto) 0.06 H (0.00-0.031) K/mm3 Absolute Neuts (auto) 4.6 (1.3-6.7) K/mm3 Absolute Nucleated RBC 0.000 (0.0-0.012) K/mm3 Band Neutrophils % 0 (0-6) % Nucleated RBC % 0.0 (0.0-0.2) % Platelet Estimate Adequate (Adequate) Hypochromasia 1+ Anisocytosis 1+ Schistocytes None seen PT 13.0 (11.1-14.7) Seconds INR 0.9 APTT 26.9 (22.3-36.8) Seconds Sodium 139 (137-145) mmol/L Potassium 4.9 (3.4-5.0) mmol/L Chloride 97 L (98-107) mmol/L Carbon Dioxide 36 H (22-30) mmol/L Anion Gap 6 (4-12) mmol/L BUN 37 H (7-17) mg/dL Creatinine 0.66 L (0.7-1.0) mg/dL Estim Creat Clear Calc Not Reportable Estimated GFR > 60 (59 - ) Glucose 153 H (65-110) mg/dL Calcium 8.8 (8.4-10.2) mg/dL Magnesium 2.1 (1.6-2.3) mg/dL Total Bilirubin 0.5 (0.2-1.3) mg/dL AST 18 (14-36) U/L ALT 15 (6-35) U/L Alkaline Phosphatase 63 (38-126) U/L Troponin I < 0.012 (0.000-0.034) ng/mL NT-Pro-B Natriuret Pep 3420 H (19.9-100) pg/mL Total Protein 7.0 (6.3-8.2) g/dL Albumin 3.6 (3.5-5.1) g/dL Influenza A (RT-PCR) Negative (Negative) Influenza B (RT-PCR) Negative (Negative) RSV (RT-PCR) Negative (Negative) SARS-CoV-2 RNA (RT-PCR) Positive A (Negative) Imaging Data Attestation: I personally reviewed and interpreted this imaging study as follows: Radiologist's impression: ITS Impressions Chest X-Ray 06/05/24 18:07 IMPRESSION: Left basilar atelectasis versus pneumonia with possible effusion. Underlying pulmonary edema is not excluded. Chest CTA 06/05/24 23:25 IMPRESSION: 1. No pulmonary embolism. 2. No acute cardiopulmonary pathology. 3. Small sliding hiatus hernia. ECG Data EKG #1: Attestation: I personally reviewed and interpreted this ECG as follows: ECG completion date: 06/05/24 ECG completion time: 17:56 EKG Interpretation: tachycardia (125), atrial fibrillation and non- specific ST changes Discharge Plan Discharge Clinical Impression: Atrial fibrillation with rapid ventricular response, COVID-19 Patient Disposition: Inpatient Rehab Facility Condition: Improved Additional Instructions: Your workup here was reassuring. You did test positive for COVID-19. Isolate as you are contagious. Continue home medications. Return to the ED if you experience worsening or severe symptoms, uncontrolled AFib, difficulty breathing, chest pain, unable to keep down food or drink, or any other symptoms of concern. Patient Language: Peruvian Prescriptions: No Action metoprolol tartrate 100 mg tablet 100 mg PO Q12H Ozempic 1 mg/dose (4 mg/3 mL) pen injector 1 mg subcut WEEKLY Qty: 3 10RF Rx Instructions: Takes on famotidine 20 mg Tablet 20 mg PO Q12HR Qty: 30 0RF sacubitril-valsartan [Entresto] 24-26 mg tablet 1 tablet PO Q12HR (DME) nebulizers [facility] See Rx Instructions .Route Qty: 1 0RF Rx Instructions: As directed cyanocobalamin (vitamin B-12) [Vitamin B-12] 1,000 mcg tablet 1,000 mcg PO QAM 90 Days Qty: 90 3RF furosemide [Lasix] 40 mg tablet 40 mg PO DAILY Qty: 90 1RF gabapentin 300 mg capsule 300 mg PO TID Qty: 90 3RF pramipexole 1 mg tablet 1 mg PO HS Qty: 90 3RF potassium chloride 10 mEq tablet extended release 20 meq PO BID Qty: 60 3RF folic acid 1 mg tablet 1 mg PO DAILY Qty: 90 3RF rosuvastatin 20 mg tablet 20 mg PO DAILY Qty: 90 1RF balsalazide 750 mg capsule See Rx Instructions .ROUTE .COMPLEX Qty: 270 1RF Dose Instruction: TAKE 3 CAPSULES BY MOUTH THREE TIMES DAILY Rx Instructions: TAKE 3 CAPSULES BY MOUTH THREE TIMES DAILY acetaminophen 500 mg capsule 1,000 mg PO Q6H cholecalciferol (vitamin D3) 25 mcg (1,000 unit) tablet 2,000 unit PO DAILY erythromycin 5 mg/gram (0.5 %) ointment 1 applic RIGHT EYE BID Rx Instructions: x7 days oxycodone 5 mg tablet 5 mg PO Q6H PRN (Reason: pain) polyethylene glycol 3350 17 gram/dose powder 17 g PO DAILY sennosides-docusate sodium 8.6-50 mg tablet 2 tab-cap PO BID Tobradex ST 0.3-0.05 % drops,suspension 2 drp RIGHT EYE Q6H Rx Instructions: x7 days sertraline 100 mg tablet 100 mg PO DAILY ropinirole 0.5 mg tablet 0.5 mg PO TID diltiazem HCl 180 mg tablet extended release 24 hr 90 mg PO DAILY Follow-up/Referrals: Meagan Yusuf MD [Primary Care Provider] - Time of Disposition: 00:07
--- OUTSIDE RECORDS SUMMARY | 2024-06-05 18:07 | XMS_ITS | Encounter Summary ---
Author Organization [employer] Address 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
--- OUTSIDE RECORDS SUMMARY | 2024-06-05 18:07 | XMS_ITS | Encounter Summary ---
Author Organization [facility] Healthcare Address [address] [place] [address] Care Team Providers Care Certified Medical Technician Assistant Name Role Phone Meagan Yusuf MD Primary Care Provider + Annemarie Lea MD Unavailable [phone] Margy Walker MD PhD Unavailable [phone] Geraldine Barbosa NP Unavailable [phone] Encounter Details Date Type Department Care Team (Late st Contact Info) Description 05/28/2024 Documentation [facility] Surgeon [address] [place], [place] [id number] Lorena Beck, ALFONSO [address] [facility] [place] [phone] [place], [place] [id number] Social History Tobacco Use Types Packs/Day Years Used Date Smoking Tobacco: Former Cigarettes Q uit: 2010 Smokeless Tobacco: Never Personal Safety Answer Date Recorded Have you ever been in or are you currently in a harmful physical or emotional relationship or is someone making you feel afraid or unsafe? 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 Gender Identity Not on file Sexual Orientation Not on file documented as of this encounter Plan of Treatment Not on file documented as of this encounter Visit Diagnoses Not on filedocumented in this encounter Care Teams Certified Medical Technician Assistant Relationship Specialty Start Date End Date Meagan Yusuf MD PCP - General Family Medicine 05/22/23 Annemarie Lea MD [address] [place] [address] Consulting Physician Otolaryngology 05/27/24 Margy Walker MD PhD [address] [place] [address] Consulting Physician Plastic Surgery 05/27/24 Geraldine Barbosa NP [address] [place] [address] Nurse Practitioner Neurosurgery 05/27/24 documented as of this encounter
--- OUTSIDE RECORDS SUMMARY | 2024-06-05 18:07 | XMS_ITS | Encounter Summary ---
Author Organization [employer] Address 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
--- OUTSIDE RECORDS SUMMARY | 2024-06-05 18:07 | XMS_ITS | Encounter Summary ---
Author Organization [employer] Address 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
--- OUTSIDE RECORDS SUMMARY | 2024-06-05 18:08 | XMS_ITS | Data Portability ---
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 [email or web address] Not available 10/26/2020 14:30:27 11/09/2020 11/09/2020 Discussed [...] Not available 17:10:42 electrocard iogram 2020 021 [email or web address] Not available 14:35:30 Medication Orders rosuvastati n 40 mg tablet 2020 021 [facility] #63274, [address], [place], [id number], 12:58:37 lisinopril 5 mg tablet 2020 [facility] #17372, [address], [place], [id number], 12:58:39 spironolact one 25 mg tablet 2020 [facility] #10281, [address], [place], [id number], 12:58:59 aspirin 81 mg tablet,lamont yed release 2020 [facility] #07858, [address] [place] [address], [id number], 14:35:37 clopidogrel 75 mg tablet 2020 [facility] #06545, [address] [place] [address], [id number], 14:35:38 rosuvastati n 20 mg tablet 2020 [facility] #25007, [address], [place], [id number], 14:35:39 metoprolol succinate ER 25 mg tablet,exte nded release 24 hr 2020 [facility] #60827, [address] [place] [address], [id number], 14:35:39 potassium chloride ER 20 mEq tablet,exte nded release 2020 [facility] #54799, [facility] [address] [place], [id number], 14:35:37 furosemide 40 mg tablet 2020 021 [facility] #59774, [address] [place], [place], [id number], 14:35:38 Patient TargetsNo targets recorded. Patient Instructions Encounter Date Encounter Id Patient Instructions Last Modified By Organization Details Last Modified Time 10/26/2020 [id number] high cholesterol : care instructions [email or web address] Not available 10/26/2020 14:35:29 When You Want to Lose Weight: Care Instructions [email or web address] Not available 10/26/2020 14:35:30 sleep apnea: car e instructions [email or web address] Not available 10/26/2020 14:35:30 high blood pressure: care instructions [email or web address] Not available 10/26/2020 14:35:30 learning about high blood pressure [email or web address] Not available 10/26/2020 14:35:30 11/09/2020 [id number] high cholesterol : care instructions [email or web address] Not available 11/09/2020 12:58:27 When You Want to Lose Weight: Care Instructions [email or web address] Not available 11/09/2020 12:58:27 sleep apnea: car e instructions [email or web address] Not available 11/09/2020 12:58:27 high blood pressure: care instructions [email or web address] Not available 11/09/2020 12:58:27 learning about high blood pressure Not available 11/09/2020 12:58:27 Reason for Referral None Reported. Results Created Date Observation Date Name Description Value Unit Range Abnormal Flag Note LastModifiedBy Organization Detail LastModifiedTime 10/26/19 21 elect low del castillogr am No observ ation record ed. [email or web address] Sharif Bustamante MD [address], [place], [address], 10/26/2020 14:26:29 10/28/19 21 10/01/2020 US, doppl [...] ation record ed. елена Bustamante MD [address], [place], [address], 12/05/2020 17:10:42 11/17/19 21 10/26/2020 elect rocar diogr am No observ ation record ed. Not Available 11/18 13:56:02 Result Notes Documentation Provider Name and Address Organization Details Recorded Time Lipid Panel, Blood : 10/28/20:Na 137,K 3.9,Cl 102,Co2 30,Glu 94,Bun 18,Cr 0.7,AST 33,ALT 11. 10/28/20:TC 190,TG 79,HDL 87,LDL 83. 10/28/20:WBC 5.4,RBC 3.83,HGB 11.4,HCT 36.7,PLT 108. Dominic Rodriguez [place], [place] - [facility] 11/14/2020 16:16:49 Lipid Panel, Blood : 10/28/20:Na 137,K 3.9,CL 102,CO2 30,Glu 94,Bun 18,Cr 0.7,AST 33,ALT 11. 10/28/20:TC 190,TG 79,HDL 87,LDL pending. Dominic beyer, [facility] 01/24/2021 13:55:17 Problems Name Problem SNOMED Code Status Onset Date Resolution Date Notes Provider Name and Address Organization Details Recorded Time Heart failure with reduced ejection fraction 336578306 Active 2020 Desmond beyer, [place] - [facility] 13:41:26 Essential hypertension 52572956 Active 2020 Desmond beyer, [place] - [facility] 13:48:17 Hyperlipidemia 08031880 Active 2020 Desmond beyer, [place] - [facility] 13:48:29 Obstructive sleep apnea syndrome 87573453 Active 2020 Desmond beyer, [place] - [facility] 13:48:37 Subsequent non-ST segment elevation myocardial infarction 947239950 Active 2020 Desmond beyer, [place] - [facility] 13:59:24 Obesity 427641400 Active 2020 Desmond beyer, [place] - [facility] 14:26:10 Problem Notes None recorded. Procedures Surgical History None recorded. Imaging Results Imaging Date Name Status LastModified by Organization Details LastModified Time 10/25/2020 electrocardiogram completed [email or web address] Sharif Basilio MD [address], [place], [address], 10/26/2020 14:26:29 10/01/2020 US, doppler, venous completed [facility] Infor mation not available 10/27/2020 11:43:01 09/30/2020 US, echocardiogram completed Inform ation not available 10/27/2020 12:19:15 10/01/2020 electrocardiogram completed [facility] Informa tion not available 10/27/2020 12:55:58 09/30/2020 XR, chest, 1 view completed [facility] Informa tion not available 10/27/2020 12:59:31 10/03/2020 catheter placement in coronary artery(s) for coronary angiography; with left heart catheterization including intraprocedural injection(s) for left ventriculography (PROC) completed [email or web address] Information not available 03/10/2021 13:24:48 11/07/2020 electrocardiogram completed naomy Basilio MD [address], [place], [address], 12/05/2020 17:10:42 10/26/2020 electrocardiogram completed [email or web address] Informa [...] Not Available Not Available [employer] [facility] [address] [place] active Not Available Not Available Not Available Vitals Date Recorded Body height Body mass index (BMI) Body weight Heart rate Respiratory rate Oxygen saturation Oxygen saturation in Arterial blood by Pulse oximetry Systolic blood pressure Diastolic blood pressure Provider Name and Address Organization Details Last Updated DateTime 1 162.56 cm 42.6 kg/m2 375410. 91 g 70 /min 16 /min 92 % 92 % 114 mm[Hg] 82 mm[Hg] Jamila Britton [facility] 1 13:04:20 Date Recorded Body height Body mass index (BMI) Body weight Heart rate Oxygen saturation Oxygen saturation in Arterial blood by Pulse oximetry Inhaled oxygen flow rate Systolic blood pressure Diastolic blood pressure Provider Name and Address Organization Details Last Updated DateTime 1 162.56 cm 43.1 kg/m2 071766. 68 g 75 /min 97 % 97 % 4 L/min 118 mm[Hg] 84 mm[Hg] DAVID [place] - [facility] 11:48:40 Social History Question Answer Notes LastModified by Organizat ion Details LastModified Time Tobacco Smoking Status Former Smoker Desmond Padilla [facility] 10/26/2020 14:25:13 What Is Your Level Of Alcohol Consumption? Moderate [email or web address] Information not available 10/26/2020 Sex: Unknown Functional Status None recorded. Mental Status None recorded. Family History Nothing Reported Notes:No premature GA. Medical History Condition Response Hyperlipidemia Y Hypertension Y Gynecological HistoryNo gynecological history recorded. Obstetrics History GPAL:G 0 P 0 0 0 0 Past Encounters Encounter ID Performer Location Encounter Start Date Encounter Closed Date Diagnosis/Indication Diagnosis SNOMED-CT Code Diagnosis ICD10 Code Diagnosis Note [id number] Desmond Padilla [place] OFFICE [address] [place] [address] 10/26/2020 12:49:39 10/26/2020 14:36:31 Heart failure with reduced ejection fraction 079635613 I50.21 Has nonischemi c cardiomyop athy, HF-rEF. She was in [facility] 09/30/20 with dyspnea, NSTEMI (peak trop [...] (RVSP 42 mmHg). Begin cardiac rehab at [facility]. Patient instructed to taper alcohol to off. Continue metoprolol and Lasix. Consider lisinopril and eventual spironolac tone. Obtain CMP, Mg, TSH, CBC, FLP. Hyperlipidemia 49007484 E78.5 Needs to keep LDL less than 70, and HDL more than 40. Obtain FLP. Obstructiv e sleep apnea syndrome 23947895 G47.33 She is now compliant with CPAP, with pulm. f/u. Essential hypertension 89965896 I10 Patient's blood pressure is {{well-con trolled* [...] diary. Subsequent non-ST segment elevation myocardial infarction 569692610 I22.2 Stable. Had [facility] 10/03/20: mild CAD (mLAD 40% followed by 50% disease which is diffuse from that point towards the end of the vessel), mild-moder ate LV systolic dysfunctio n (LVEF 40%) with nonischemi c cardiomyop athy. Continue ASA, Plavix, metoprolol , statin. Needs to keep LDL less than 70, and HDL more than 40. Maximal medical therapy. Obesity 185696274 E66.9 20 lb. weight loss recommende d over the next [id number] [facility] OFFICE [address] [place] [address] 11/09/2020 11:31:16 11/09/2020 13:02:04 Heart failure with reduced ejection fraction 735045769 I50.21 Has nonischemi c cardiomyop athy, HF-rEF. She was in [facility] 09/30/20 with dyspnea, NSTEMI (peak trop I 1.25), and CHF exacerbati on in setting of hypertensi ve urgency, COPD exacerbati on, untreated TRAVIS, left leg cellulitis (treated with doxycyclin e), possible pneumonia, diuresed with Lasix 40 mg bid. Had [facility] 10/03/20: mild CAD (mLAD 40% followed [...] (RVSP 42 mmHg). Begin cardiac rehab at [facility]. Patient instructed to taper alcohol to off. [...] weeks. Subsequent non-ST segment elevation myocardial infarction 558975375 I22.2 Stable. Had [facility] 10/03/20: mild CAD (mLAD 40% followed [...] more than 40. Maximal medical therapy. Hyperlipidemia 40940935 E78.5 Needs to keep LDL less than 70, and HDL more than 40. Had 10/28/20: LDL 83Increase d to rosuvastat in 40 mg qHS 11/09/20. Obstructiv e sleep apnea syndrome 57598074 G47.33 She is now compliant with CPAP, with pulm. f/u. Essential hypertension 75764317 I10 Patient's blood pressure is {{well-con trolled* [...] sodium or less daily). BP diary. Obesity 097363587 E66.9 20 lb. weight loss recommende d over the next 2 months. Health Concerns Section Related Observation LastModified by Organization Detai ls LastModified Time None Recorded Concern Status LastModified by Organization Details LastModified Time None Recorded Advance Directives Directive None Recorded Payers Encounter Date Sequence Insurance Name Policy Number Policy Garcia Covered Member ID Garcia Member ID Guarantor Name 10/26/2020 1 [place] [employer] [id number] Ping Christin 10/26/2020 2 [place] [id number] [employer] [id number] Ping Christin 11/09/2020 1 [place] [employer] [id number] Ping Christin 11/09/2020 2 [place] [id number] [employer] [id number] Ping Christin Notes Date Note Type [...] hospital follow-up for HCF. She was in [facility] 09/30/20 with dyspnea, NSTEMI (peak trop I 1.25), and CHF exacerbation in setting of hypertensive urgency, COPD exacerbation, untreated TRAVIS, left leg cellulitis (treated with doxycycline), possible pneumonia, diuresed with Lasix 40 mg bid. [facility] 10/03/20: mild CAD (mLAD 40% followed by [...] stated in the HPI and ROS.*}} Had [facility] 10/03/20: mild CAD (mLAD 40% followed [...] K 3.6, Mg 1.7, Cr 0.8, Had [facility] 10/03/20: mild CAD (mLAD 40% followed [...] negative LE venous Doppler 09/2020. Desmond Padilla [place], [place] - [facility] 10/26/2020 14:36:29 [...] hospital follow-up for HCF. She was in [facility] 09/30/20 with dyspnea, NSTEMI (peak trop I 1.25), and CHF exacerbation in setting of hypertensive urgency, COPD exacerbation, untreated TRAVIS, left leg cellulitis (treated with doxycycline), possible pneumonia, diuresed with Lasix 40 mg bid. Had [facility] 10/03/20: mild CAD (mLAD 40% followed [...] 1.4, hgb 11.4, plt 108 lab result [id number] result : hgb 10.7, K 3.6, Mg 1.7, Cr 0.8,PT/INR 09-30-2020 electrocardiogram Had [facility] 10/03/20: mild CAD (mLAD 40% followed [...] view 09-30-2020 US, echocardiogram 09-30-[address] [facility] [place] - [facility] 11/09/2020 12:58:46 OBGyn Episode No OBEpisode recorded.
--- OUTSIDE RECORDS SUMMARY | 2024-06-05 18:08 | XMS_ITS | Clinical Summary ---
Author Organization [facility] Address [address] [place] [address] Care Team Providers Care Plaster Die Maker Name Role Phone Meagan Yusuf MD Primary Care Provider + Annemarie Lea MD Unavailable [phone] Margy Walker MD PhD Unavailable [phone] Geraldine Barbosa NP Unavailable [phone] Allergies Active Allergy Reactions Criticality Noted Date Comments Penicillin G Rash Medium 09/26/2016 Thiopental Sodium Nausea And Vomiting Medium 7 Medications balsalazide (COLAZAL) 750 mg capsule Take 3 capsules (2,250 mg total) by mouth 3 (three) times a day Active pramipexole (MIRAPEX) 1 mg tablet Take 1 tablet (1 mg total) by mouth nightly 01/10/20 21 Active gabapentin (NEURONTIN) 300 mg capsule Take 1 capsule (300 mg total) by mouth 3 (three) times a day Active rosuvastatin (CRESTOR) 20 mg tablet Take 1 tablet (20 mg total) by mouth daily Active sertraline (ZOLOFT) 100 mg tablet Take 1 tablet (100 mg total) by mouth daily 01/10/20 21 Active cholecalcifero l (VITAMIN D-3) 25 mcg (1,000 unit) tablet Take 2 tablets (2,000 Units total) by mouth daily Active folic acid (FOLVITE) 1 mg tablet Take 1 tablet (1,000 mcg total) by mouth daily 02/23/20 23 Active famotidine (PEPCID) 20 mg tablet Take 1 tablet (20 mg total) by mouth 2 (two) times a day Active furosemide (LASIX) 40 mg tablet Take 1 tablet (40 mg total) by mouth daily 11/13/19 24 Active metoprolol (LOPRESSOR) 100 mg tablet Take 1 tablet (100 mg total) by mouth 2 (two) times a day 10/02/19 24 Active rOPINIRole (REQUIP) 0.5 mg tablet Take by mouth 3 (three) times a day 11/15/19 24 Active Ozempic 1 mg/dose (4 mg/3 mL) pen injector injection 12/15/19 24 Active cyanocobalamin (Vitamin B-12) 1,000 mcg tablet Take 1 tablet (1,000 mcg total) by mouth every morning 10/25/19 24 Active potassium chloride ER 10 mEq CR tablet Take 2 tablet/capsul e (20 mEq total) by mouth 2 (two) times a day 12/03/19 24 Active diltiazem LA (CARDIZEM LA) 180 mg 24 hr tablet Take 0.5 tablet po daily 45 tablet 1 01/15/20 24 Active sacubitriL-belinda sartan (Entresto) 24-26 mg tabletIndicati ons:Chronic HFrEF (heart failure with reduced ejection fraction) (HCC) TAKE 1 TABLET BY MOUTH IN THE MORNING AND IN THE EVENING 60 tablet 11 05/01/19 25 Active acetaminophen 500 mg capsule Take 2 capsules (1,000 mg total) by mouth every 6 (six) hours 05/28/19 25 Active polyethylene glycol (MIRALAX) 17 gram/dose bulk powderIndicati ons:constipati on Take 17 g by mouth daily 05/28/19 25 Active senna-docusate (PERICOLACE) 8.6-50 mg Take 2 tablets by mouth 2 (two) times a day 05/28/19 25 Active oxyCODONE (ROXICODONE) 5 mg immediate release tabletIndicati ons:Pain Take 1 tablet (5 mg total) by mouth every 6 (six) hours as needed for pain 15 tablet 05/28/19 25 Active loperamide (IMODIUM) 2 mg capsule Take 2 capsules (4 mg total) by mouth daily 025 Discontinued diphenhydrAMIN E (BENADRYL) 25 mg capsule Take 1 tablet/capsul e (25 mg total) by mouth nightly as needed for itching 025 Discontinued vitamin B-1 100 mg tablet Take 1 tablet (100 mg total) by mouth every morning 02/23/20 025 Discontinued QUEtiapine (SEROquel) 25 mg tablet Take 1 tablet (25 mg total) by mouth nightly 0 02/27/20 23 025 Discontinued albuterol 2.5 mg /3 mL (0.083 %) nebulizer solution USE 1 VIAL VIA NEBULIZER TWICE DAILY NEEDED FOR SHORTNESS OF BREATH 03/05/20 025 Discontinued Xarelto 20 mg tablet TAKE 1 TABLET(20 MG) BY MOUTH DAILY WITH DINNER 30 tablet 11 09/17/19 24 025 Discontinued rivaroxaban (XARELTO) 20 mg tablet Take 1 tablet (20 mg total) by mouth daily with dinner 025 Discontinued(St op Taking at Discharge) tobramycin-dex AMETHasone (TOBRADEX) ophthalmic solution Administer 2 drops into the right eye every 6 (six) hours for 7 days 05/28/19 025 erythromycin (ILOTYCIN) ophthalmic ointment Apply to right eye 2 (two) times a day for 7 days 05/28/19 025 Active Problems Problem Noted Date Diagnosed Date Hypercarbia 05/23/2024 Assessment & Plan (05/26/2024 9:50 AM RIVET HOLE 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): #COPD #TRAVIS, chronic #Chronic hypoxic respiratory failure - On 4L NC at baseline, not CPAP compliant per chart review and has been rec to repeat sleep study - See above for PAP plans #TRAVIS, chronic - CPAP @ night w/ mustache dressing as described above. - Spot dose lasix as indicated - maintain SpO2 > 88% - pulm hygiene/PT/OT/IS Discharge planning issues 05/23/2024 Assessment & Plan (05/27/2024 11:52 AM RIVET HOLE 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): 05/23 tx out ICU, PT/OT - 3/3: awaiting repeat swallow evaluation, calorie counts - 4: Continue Tfs at nightly, Calorie counts. Wean O2 back to home 4L. Not medically ready for discharge. 05/27: Patient is medically stable for discharge, SW/CM updated. Discharge pending facility bed availability Treatment note 05/14 [x] Feeding difficulties 05/22/2024 Assessment & Plan (05/27/2024 11:55 AM RIVET HOLE 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): SBFT placed by ENT 05/21 TFs commenced 05/21, advancing as tolerated 05/24: On regular PO diet today. Informed by nursing that she chocked on food during lunch. Assessed patient at bedside. Patient states she's been having regurgitation for days. This episode was similar except the food was less chewed. She experienced no shortness of breath or difficulty breathing during the episode. Only felt short of breath afterwards. Her vitals signs remained stable, O2 sats 94%+ on 2L NC (unchanged oxygen requirement). She spoke without difficulty. No SOB, chest pain, cough on exam. Will make NPO, resumed tube feeds, ordered for repeat ACTUARIAL TECHNICIAN evaluation. Recommend up in chair for all meals and 1:1 assistance during meals pending ACTUARIAL TECHNICIAN evaluation. Discussed with patient and nurse to inform provider of any change in clinical exam or vital signs. 05/25: repeat Swallow- regular diet, regular thin liquids assistance with meals, calorie counts ordered, cycle tube feeding over PM MBS (05/27): swallow mechanism is normal Respiratory distress 05/20/2024 Assessment & Plan (05/27/2024 11:55 AM RIVET HOLE 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): Transferred to SICU 05/18 ON after respiratory distress w/ PCO2 in 80s Now intubated sp OR w/ ENT 05/19, ok to extubate from their perspective 05/21 am Extubated 05/21 Back on CPAP w/ mustache dressing per ENT 05/24: CXR: Small bilateral pleural effusion associated with atelectasis, no significant change. Decreased pulmonary edema. Resume home lasix when appropriate. Syncope 05/14/2024 Assessment & Plan (05/15/2024 2:15 PM RIVET HOLE 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): - Orthostatic vital signs (05/14): negative - ECHO (05/15): Mildly dilated left ventricle based on volume index. Normal LV wall thickness. Mildly depressed left ventricular systolic function. The Ejection Fraction (Carmichael's) is measured at 52 %. Left ventricular diastolic parameters are consistent with Grade III diastolic dysfunction (elevated LA pressure, restrictive physiology, mild global hypokinesis, right ventricle appears mildly dilated. Mild right ventricular hypokinesis, Biatrial enlargement, moderate mitral annular calcification. There is severe mitral regurgitation. No stenosis present. MV Structure Abnormalities: Anterior and posterior mitral valve leaflets appear thickened. Anterior and posterior mitral valve leaflets appear calcified, mild aortic sclerosis without stenosis or insufficiency, structurally normal pulmonic valve with no stenosis or insufficiency, severe tricuspid insufficiency with moderately elevated pulmonary artery systolic pressure, no tricuspid stenosis, no pericardial effusion - carotid duplex (05/14): right internal carotid artery disease is consistent with a less than 50% stenosis, left internal carotid artery disease is consistent with a less than 50% stenosis, Atherosclerotic changes of the bilateral common carotid artery without hemodynamically significant Doppler findings, normal, antegrade flow is noted in bilateral vertebral arteries Acute traumatic pain 05/14/2024 Assessment & Plan (05/14/2024 12:48 PM RIVET HOLE 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): - Tylenol 1g q6h - Gabapentin 300mg TID - Robaxin 500mg TID PRN - Oxycodone 5mg q4h PRN Closed fracture of distal end of left radius Assessment & Plan (05/27/2024 11:55 AM RIVET HOLE 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): - Plastics consult - L hand/wrist xr (05/14): Comminuted intra-articular fracture of the left distal radius with mild articular surface depression, Apparent widening of the left scapholunate interval may be seen in setting of ligamentous injury. - NWB LUE, elevate LUE - LUE sugartong splint 05/18 ORIF L radius w PRS (Denise) - PT/OT - Follow up outpatient with PRS (Denise) Hypomagnesemia 05/14/2024 Assessment & Plan (05/25/2024 11:39 AM RIVET HOLE 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): - Magnesium (05/14): 1.9mg/dL - 05/14: replete Magnesium 2g IV - Magnesium (05/15): 2.0mg/dL - Magnesium (05/20): 2.2mg/dL - Magnesium (05/25): 2.0mg/dL - continue to trend Magnesium Fall, initial encounter 05/13/2024 Assessment & Plan (05/15/2024 10:18 AM RIVET HOLE 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): Syncopal workup given unclear mechanism (TTE, carotid duplexes, OSVS) - Hgb 9.7 on arrival, monitor on CBC (9.9 in January) - CXR negative for acute injury - CT CAP negative Orbital floor (blow-out) closed fracture 025 Assessment & Plan (05/27/2024 11:52 AM RIVET HOLE 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): Ophtho c/s ---HOB elevation, open-mouth sneezing, no nose-blowing - May use cool compress / ice pack on periorbital region x 5-10 minutes q30 minutes - Eye dilation (05/15) - ENT c/s --- Elevate HOB --- No nose blowing, open mouth sneezing --- Decadron 8mg IV x1 + Medrol dose pack --- OR on 05/19 for ORIF -> remaining intubated subsequently per their request, ok to extubate from their standpoint 05/21 w/ mustache dressing for CPAP - Decadron q 8 while hospitalized. Tobradex R eye q 6 - Okay for discharge. Follow up to be tasked with Dr Lea's team. [phone] Antibiotics Ancef 7day (complete) Intraparenchymal hematoma of brain due to trauma 05/13/2024 Assessment & Plan (05/23/2024 4:06 PM RIVET HOLE 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): - Neurosurgery consult - Repeat head CT (05/13): Unchanged subcentimeter focus of hyperattenuation within splenium of the left corpus callosum, which is favored to represent a intraparenchymal hemorrhage in setting of trauma. No new intracranial hemorrhage. - Keppra 500 mg BID x 7 days, completed 05/20 - Q4Hr NC - Brain MRI (05/14): 1 mm left cerebral convexity subdural hemorrhage, no midline shift - Hold all AC and antiplatelet until follow up - BI consult - PM&R consult Per NSGY sign-off note on 05/15: hold all antiplatelet/anticoagulation until follow-up, pt should be seen in clinic in 6 weeks with MRI brain w/wo contrast Atrial fibrillation 05/13/2024 Assessment & Plan (05/25/2024 11:36 AM RIVET HOLE 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): - Hold Xarelto - home diltiazem 180 mg daily, metprolol 25 mg bid, entresto 24-26mg BID, rosuvastatin - Hold home lasix - Last TTE in system with grade II diastolic dysfunction , EF 70%, moderate pulmonary hypertension (09/2021) - 05/15: developed atrial fibrillation with RVR over PM--> received Metoprolol 5mg IV x2, repeat EKG obtained - 05/18: Resumed diltiazem 30 mg TID - 05/24: Resumed diltiazem 30mg TID Chronic diastolic heart failure 05/13/2024 Assessment & Plan (05/24/2024 3:43 PM RIVET HOLE 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): Grade II diastolic dysfunction -EF 70%, moderate pulmonary hypertension (09/2021) 3: resumed home diltiazem. CTM BP and resume home lasix when appropriate. Restless leg syndrome 05/13/2024 Assessment & Plan (05/13/2024 2:32 PM RIVET HOLE 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): - Continue home ropinrole and pramipexole, gabapentin Mood disorder 05/13/2024 Assessment & Plan (05/13/2024 2:37 PM RIVET HOLE 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): Continue home zoloft Heart failure with mildly re duced ejection fraction (HFmrEF) 01/15/2024 Assessment & Plan (05/27/2024 11:57 AM RIVET HOLE 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): #HTN, chronic #HFrEF, chronic #Severe MR #Severe TI #Severe pulmonary hypertension - TTEs as above - Home O2 4L - Follows with [facility] Cardiology - Home Diltiazem, Entresto, Lasix (1/2 dose) and metoprolol continued Chronic anticoagulation 07/18/2022 Persistent atrial fibrillation 02/20/2022 Noncompliance with medicatio n treatment due to intermittent use of medication 12/18/2021 Morbid (severe) obesity due to excess calories 0 07/05/2021 Labile hypertension 03/23/2021 Hypotension due to drugs 03/23/2021 Coronary artery disease invo lving [place] coronary artery of [place] heart without angina pectoris 02/10/2021 Mixed hyperlipidemia 02/10/2021 Chronic obstructive pulmonary disease 02/10/2021 Chronic respiratory failure with hypoxia 021 TRAVIS on CPAP 02/10/2021 Frequent falls 02/10/2021 Resolved Problems Problem Noted Date Diagnosed Date Resolved Date COPD (chronic obstructive pulmonary disease) 5 05/23/2024 Assessment & Plan (05/13/2024 2:35 PM RIVET HOLE 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): - home meds: albuterol, ipratopium-albuterol Discharge planning issues 05/13/2024 Assessment & Plan (05/18/2024 2:27 PM RIVET HOLE 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): - 05/14: orthostatic vital signs pending, syncope workup pending, awaiting PT/OT - 05/15: atrial fibrillation with RVR over PM, ECHO pending. Possible OR on 05/18 05/16 pending OR with Plastics on Saturday and Saturday. Echo completed EF 52% with extensive cardiac anomalies all stable. 05/18: Pending OR with PRS and ENT Treatment plan note [x] H/O cardiomyopathy 12/18/2021 4 Chronic heart failure with p reserved ejection fraction 02/10/2021 01/15/2024 Encounters Date Type Department Care Team Description 05/31/2024 Telephone [facility] Ophthalmology [address] [place] [address] 1st [place] [address] Leeann Horvath MD 05/28/2024 Documentation [facility] Surgeon [address] [facility] [address] Lorena Beck NP 05/27/2024 Telephone [facility] - [facility] ENT [address] [facility] Advanced Medicine 11th [place] [address] [place] [id number] Sybil Burgess, MS 05/19/2024 7:51 AM RIVET HOLE 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 Anesthesia Event [facility] Operating Room [address] [place] [address] Mag Villatoro MD Ridenour, Rebekah Elizabeth, ALFONSO 05/19/2024 7:30 AM RIVET HOLE 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 - 05/19/2024 10:50 AM RIVET HOLE 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 Surgery [facility] Operating Room [address] [place] [address] Annemarie Lea MD OPEN REDUCTION INTERNAL FIXATION - ORBITAL FRACTURE 05/18/2024 3:50 PM RIVET HOLE 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 - 05/18/2024 6:30 PM RIVET HOLE 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 Surgery [facility] Operating Room [address] [place] [address] Margy Walker MD PhD OPEN REDUCTION INTERNAL FIXATION RADIUS - DISTAL 05/18/2024 3:47 PM RIVET HOLE 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 Anesthesia Event [facility] Operating Room [address] [place] [address] Zack Rizvi MD Ridenour, Rebekah Elizabeth, NP 05/15/2024 Orders Only [facility] Neurosurgery [address] [facility] 6th [place] [address] [place] [address] Geraldine Barbosa NP Intraparenchymal hematoma of brain due to trauma, with unknown loss of consciousness status, unspecified laterality, subsequent encounter (Primary Dx); Fall, initial encounter 05/14/2024 7:55 AM RIVET HOLE 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 Ancillary Procedure [facility] Vascular Lab IP [address] [facility] [address] [place] [address] 05/14/2024 Telephone [facility] - [facility] ENT [address] [facility] 11th [place] [address] [place] [address] Sybil Burgess, MS 05/13/2024 12:53 AM RIVET HOLE 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 - 05/27/2024 7:22 PM RIVET HOLE 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 Hospital Encounter [facility] [address] [place] [address] Edwige Strickland MD Vallar, Kelly Jean, MD Smith, MD Karli Cuenca Alexander, MD Fall, initial encounter (Primary Dx); Closed fracture of right orbital floor, initial encounter (HCC); Frequent falls; Other closed intra-articular fracture of distal end of left radius, initial encounter Discharge Disposition: Discharge to an Rehab facility 05/13/2024 Ophth Exam [facility] Ophthalmology [address] [place] [address] 1[address] [place] [address] Gladys Manley MD 05/08/2024 1:30 PM RIVET HOLE 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 Office Visit [facility] Cardiology [address] [place] [address] Allie Contreras NP Chronic HFrEF (heart failure with reduced ejection fraction) (HCC) (Primary Dx); Persistent atrial fibrillation (HCC); Chronic anticoagulation; Frequent falls; TRAVIS on CPAP 05/01/2024 Telephone [facility] Cardiology [address] [place] [address] Radha Jimenez MD Med Refill from Last 3 Months Immunizations Immunization Administration Dates Next Due Tdap 05/13/2024 Surgical History Surgery Date Site/Laterality Comments HYSTERECTOMY TOTAL SHOULDER REPLACEMENT Right HIP ARTHROPLASTY Medical History Medical History Date Comments [place], old CHF (congestive heart failure) (HCC) Alcohol abuse Hypertension Depression Covid-19 Hyperlipidemia Sleep apnea Restless leg syndrome Atrial fibrillation (HCC) Pulmonary HTN (HCC) Lung disease CAD (coronary artery disease) Intraparenchymal hematoma of brain due to trauma (HCC) Family History Medical History Relation Name Comments Alzheimer's disease Mother Anemia Mother Arthritis Mother Mental illness Mother Cancer Sister 2 Relation Name Status Comments Brother Alive Father (Age 96) Mother (Age 92) Sister 1 Alive Sister 2 (Age 32) Social History Tobacco Use Types Packs/Day Years Used Date Smoking Tobacco: Former Cigarettes Q uit: 2010 Smokeless Tobacco: Never Tobacco Cessation:Counseling Given: Not Answered Personal Safety Answer Date Recorded Have you ever been in or are you currently in a harmful physical or emotional relationship or is someone making you feel afraid or unsafe? Denies 05/18/2024 Comments No Sex and Gender Information Value Date Recorded Sex Assigned at Not on file Legal Sex Female 4:29 PM RIVET HOLE 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 Gender Identity Not on file Sexual Orientation Not on file Obstetrics History Last Filed Vital Signs Vital Sign Reading Time Taken Comments Blood Pressure 143/90 05/27/2024 3:28 PM RIVET HOLE 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 Pulse 112 05/27/2024 3:28 PM RIVET HOLE 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 Temperature 37.1 C (98.8 F) 05/27/2024 3:28 PM RIVET HOLE 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 Respiratory Rate 20 05/27/2024 11:49 AM RIVET HOLE 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 Oxygen Saturation 99% 05/27/2024 3:28 PM RIVET HOLE 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 Inhaled Oxygen Concentration - - Weight 96 kg (211 lb 10.3 oz) 05/20/2024 10:00 A M RIVET HOLE 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 Height 165.1 cm (5' 5 ) 05/13/2024 8:40 PM RIVET HOLE 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 Body Mass Index 35.22 05/13/2024 8:40 PM RIVET HOLE 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 Plan of Treatment Health Maintenance Due Date Last Done Comments Depression Screening 1945 Hepatitis C Screening 1945 Osteoporosis Screening-Bone Density Scan 1945 Hepatitis B Screening 12/21/1965 Well Visit 65+ 12/21/2012 Zoster Vaccine (2 of 3) 04/04/2015 02/07/2015 Covid-19 Vaccine ( - 2023-2 5 season) 2023 06/15/2020, 05/24/2020 Influenza Vaccine (#1) 2023 , 03/05/2019, 01/28/2018, Additional history exists Fall Risk Assessment 05/27/2025 05/27/2024 DTaP/Tdap/Td Vaccine (3 - Td or Tdap) 05/13/2034 05/13/2024, 12/15/2019 Pneumococcal vaccine 65+ Completed 05/08/2018, 12/24 Medical Devices Implanted Type Area Therapist Respiratory Device Identifier Shelf Expiration Date Model / Serial / Lot Implantech Sheeting Silastic Non Reinforced Alliedsil [id number] Silicone 23-700-40 - [id number] Implanted:Qty: 1 on 05/19/2024 by Annemarie Lea MD at [facility] Other - see comments Right: Face Implantech 07/03/2028- 40 / / [place] Craniomaxillofacial Craniomaxillofacial Right 3d Large Implant Orbital Medpor Titan [id number] - [id number] Implanted:Qty: 1 on 05/19/2024 by Annemarie Lea MD at [facility] Other - see comments Right: Face Luis Carlos Craniomaxillofacial 08/19/2032 [id number] / / Luis Carlos Craniomaxillofacial 1.2mm 4mm Self Drill Axial Stability Lower Profile Screw Bone [id number] - [id number] Implanted:Qty: 1 on 05/19/2024 by Annemarie Lea MD at [facility] Other - see comments Right: Face Luis Carlos Craniomaxillofacial [id number] / / Medartis Inc Plt 2.5 Adaptive Ii Trilock Dist Rad Vol L 10h Narrow T2.0 A-4750.101 - [id number] Implanted:Qty: 1 on 05/18/2024 by Margy Walker MD PhD at [facility] Left: Wrist Med[employer]is Inc A-4750. 101 / / Medartis [employer] 2.5mm 18mm Lock Cortical Screw Bone A-5750.18 - [id number] Implanted:Qty: 1 on 05/18/2024 by Margy Walker MD PhD at [facility] Left: Wrist [employer] A-5750. 18 / / [employer] 2.5mm 22mm Lock Cortical Screw Bone A-5750.22 - [id number] Implanted:Qty: 2 on 05/18/2024 by Margy Walker MD PhD at [facility] Left: Wrist [employer] A-5750. 22 / / [employer] 2.5mm 20mm Lock Cortical Screw Bone A-5750.20 - [id number] Implanted:Qty: 3 on 05/18/2024 by Margy Walker MD PhD at [facility] Left: Wrist [employer] A-5750. 20 / / [employer] Inc Aptus 2.5mm 14mm Lock Cortical Screw Bone A-5750.14 - [id number] Implanted:Qty: 2 on 05/18/2024 by Margy Walker MD PhD at [facility] Left: Wrist [employer] A-5750. 14 / / [employer] Aptus 2.5mm 14mm Cortical Screw Bone A-5700.14 - [id number] Implanted:Qty: 1 on 05/18/2024 by Margy Walker MD PhD at [facility] Left: Wrist [employer] A-5700. 14 / / [employer] 2.5mm 12mm Lock Cortical Screw Bone A-5750.12 - [id number] Implanted:Qty: 1 on 05/18/2024 by Margy Walker MD PhD at [facility] Left: Wrist [employer] A-5750. 12 / / Explanted Type Area Therapist Respiratory Device Identifier Shelf Expiration Date Model / Serial / Lot Medartis Inc Aptus 2.5mm 16mm Cortical Screw Bone A-5700.16 - [id number] Explanted:Qty: 1 on 05/18/2024 by Margy Walker MD PhD at [facility] Left: Wrist [employer] A-5700 .16 / / Med[employer] Inc 2.5mm 18mm Lock Cortical Screw Bone A-5750.18 - [id number] Explanted:Qty: 1 on 05/18/2024 at [facility] Left: Wrist [employer] Inc A-5750 .18 / / Procedures Procedure Name Priority Date/Time Associated Diagnosis Comments FL MODIFIED BARIUM SWALLOW W VIDEO IP Routine 05/27/2024 10:35 AM RIVET HOLE 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 EGFR Routine 05/26/2024 9:12 PM RIVET HOLE 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 BASIC METABOLIC PANEL Routine 05/26/2024 9:12 PM RIVET HOLE 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 CBC WITHOUT DIFFERENTIAL Routine 025 9:12 PM RIVET HOLE 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 MAGNESIUM Routine 05/26/2024 9:12 PM RIVET HOLE 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 PHOSPHORUS Routine 05/26/2024 9:12 PM RIVET HOLE 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 PEP THERAPY Routine 05/26/2024 12:01 PM RIVET HOLE 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 PEP THERAPY Routine 05/26/2024 6:01 AM RIVET HOLE 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 PEP THERAPY Routine 05/26/2024 12:00 AM RIVET HOLE 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 EGFR Routine 05/25/2024 9:54 PM RIVET HOLE 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 BASIC METABOLIC PANEL Routine 05/25/2024 9:54 PM RIVET HOLE 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 CBC WITHOUT DIFFERENTIAL Routine 025 9:54 PM RIVET HOLE 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 MAGNESIUM Routine 05/25/2024 9:54 PM RIVET HOLE 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 PHOSPHORUS Routine 05/25/2024 9:54 PM RIVET HOLE 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 PEP THERAPY Routine 05/25/2024 6:00 PM RIVET HOLE 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 PEP THERAPY Routine 05/25/2024 12:00 PM RIVET HOLE 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 PEP THERAPY Routine 05/25/2024 6:01 AM RIVET HOLE 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 PEP THERAPY Routine 05/25/2024 12:00 AM RIVET HOLE 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 ECG 12-LEAD STAT 05/24/2024 10:55 PM RIVET HOLE 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 EGFR Routine 05/24/2024 8:54 PM RIVET HOLE 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 BASIC METABOLIC PANEL Routine 05/24/2024 8:54 PM RIVET HOLE 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 CBC WITHOUT DIFFERENTIAL Routine 025 8:54 PM RIVET HOLE 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 MAGNESIUM Routine 05/24/2024 8:54 PM RIVET HOLE 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 PHOSPHORUS Routine 05/24/2024 8:54 PM RIVET HOLE 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 PEP THERAPY Routine 05/24/2024 6:00 PM RIVET HOLE 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 PEP THERAPY Routine 05/24/2024 12:00 PM RIVET HOLE 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 PEP THERAPY Routine 05/24/2024 6:00 AM RIVET HOLE 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 PEP THERAPY Routine 05/24/2024 12:00 AM RIVET HOLE 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 ECG 12-LEAD Routine 05/23/2024 11:24 PM RIVET HOLE 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 EGFR Routine 05/23/2024 8:13 PM RIVET HOLE 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 BASIC METABOLIC PANEL Routine 05/23/2024 8:13 PM RIVET HOLE 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 CBC WITHOUT DIFFERENTIAL Routine 025 8:13 PM RIVET HOLE 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 MAGNESIUM Routine 05/23/2024 8:13 PM RIVET HOLE 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 PHOSPHORUS Routine 05/23/2024 8:13 PM RIVET HOLE 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 PEP THERAPY Routine 05/23/2024 6:00 PM RIVET HOLE 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 PEP THERAPY Routine 05/23/2024 12:00 PM RIVET HOLE 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 CRITICAL CARE Routine 05/23/2024 6:40 AM RIVET HOLE 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 Fall, initial encounter PEP THERAPY Routine 05/23/2024 6:00 AM RIVET HOLE 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 PEP THERAPY Routine 05/23/2024 12:01 AM RIVET HOLE 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 POCT GLUCOSE DEVICE Routine 05/22/2024 11:10 PM RIVET HOLE 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 EGFR Routine 05/22/2024 8:23 PM RIVET HOLE 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 BASIC METABOLIC PANEL Routine 05/22/2024 8:23 PM RIVET HOLE 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 CBC WITHOUT DIFFERENTIAL Routine 8:23 PM RIVET HOLE 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 MAGNESIUM Routine 05/22/2024 8:23 PM RIVET HOLE 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 PHOSPHORUS Routine 05/22/2024 8:23 PM RIVET HOLE 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 CRITICAL CARE Routine 05/22/2024 7:32 PM RIVET HOLE 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 Fall, initial encounter POCT GLUCOSE DEVICE Routine 05/22/2024 6 :58 PM RIVET HOLE 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 PEP THERAPY Routine 05/22/2024 6:00 PM RIVET HOLE 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 IRON PROFILE W/ IBC STAT 05/22/2024 3 :44 PM RIVET HOLE 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 POCT GLUCOSE DEVICE Routine 05/22/2024 3 :03 PM RIVET HOLE 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 PEP THERAPY Routine 05/22/2024 12:00 PM RIVET HOLE 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 POCT GLUCOSE DEVICE Routine 05/22/2024 10:55 AM RIVET HOLE 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 POCT GLUCOSE DEVICE Routine 05/22/2024 7 :01 AM RIVET HOLE 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 CRITICAL CARE Routine 05/22/2024 6:44 AM RIVET HOLE 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 Fall, initial encounter PEP THERAPY Routine 05/22/2024 6:01 AM RIVET HOLE 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 BLOOD GAS, ARTERIAL Routine 05/22/2024 4 :31 AM RIVET HOLE 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 POCT GLUCOSE DEVICE Routine 05/22/2024 3 :02 AM RIVET HOLE 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 PEP THERAPY Routine 05/22/2024 12:00 AM RIVET HOLE 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 POCT GLUCOSE DEVICE Routine 05/21/2024 10:54 PM RIVET HOLE 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 EGFR Routine 05/21/2024 8:54 PM RIVET HOLE 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 BLOOD GAS, ARTERIAL Routine 05/21/2024 8 :54 PM RIVET HOLE 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 BASIC METABOLIC PANEL Routine 05/21/2024 8:54 PM RIVET HOLE 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 CBC WITHOUT DIFFERENTIAL Routine 8:54 PM RIVET HOLE 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 MAGNESIUM Routine 05/21/2024 8:54 PM RIVET HOLE 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 PHOSPHORUS Routine 05/21/2024 8:54 PM RIVET HOLE 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 XR CHEST 1 VIEW IP Routine 05/21/2024 8:36 PM RIVET HOLE 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 CRITICAL CARE Routine 05/21/2024 8:00 PM RIVET HOLE 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 Fall, initial encounter POCT GLUCOSE DEVICE Routine 05/21/2024 7 :43 PM RIVET HOLE 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 PEP THERAPY Routine 05/21/2024 6:00 PM RIVET HOLE 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 BLOOD GAS, ARTERIAL STAT 05/21/2024 3 :11 PM RIVET HOLE 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 POCT GLUCOSE DEVICE Routine 05/21/2024 3 :10 PM RIVET HOLE 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 EXTUBATION Routine 05/21/2024 2:27 PM RIVET HOLE 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 PEP THERAPY Routine 05/21/2024 12:00 PM RIVET HOLE 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 POCT GLUCOSE DEVICE Routine 05/21/2024 11:14 AM RIVET HOLE 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 T4, FREE Routine 05/21/2024 9:07 AM RIVET HOLE 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 AMMONIA Routine 05/21/2024 9:07 AM RIVET HOLE 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 THYROID FUNCTION CASCADE Routine 025 9:07 AM RIVET HOLE 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 TRIGLYCERIDES Timed 05/21/2024 9:07 AM RIVET HOLE 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 POCT GLUCOSE DEVICE Routine 05/21/2024 7 :24 AM RIVET HOLE 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 CRITICAL CARE Routine 05/21/2024 7:02 AM RIVET HOLE 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 Fall, initial encounter PEP THERAPY Routine 05/21/2024 6:01 AM RIVET HOLE 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 POCT GLUCOSE DEVICE Routine 05/21/2024 3 :47 AM RIVET HOLE 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 XR CHEST 1 VIEW ED Urgent/IP Urgent 05/21/2024 12:12 AM RIVET HOLE 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 PEP THERAPY Routine 05/21/2024 12:00 AM RIVET HOLE 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 POCT GLUCOSE DEVICE Routine 05/20/2024 11:29 PM RIVET HOLE 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 XR ABDOMEN AP 1 VIEW ED Urgent/IP Urgent 05/20/2024 8:05 PM RIVET HOLE 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 EGFR Routine 05/20/2024 7:44 PM RIVET HOLE 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 BASIC METABOLIC PANEL Routine 05/20/2024 7:44 PM RIVET HOLE 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 CBC WITHOUT DIFFERENTIAL Routine 025 7:44 PM RIVET HOLE 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 MAGNESIUM Routine 05/20/2024 7:44 PM RIVET HOLE 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 PHOSPHORUS Routine 05/20/2024 7:44 PM RIVET HOLE 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 POCT GLUCOSE DEVICE Routine 05/20/2024 7 :36 PM RIVET HOLE 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 CRITICAL CARE Routine 05/20/2024 6:22 PM RIVET HOLE 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 Fall, initial encounter PEP THERAPY Routine 05/20/2024 6:00 PM RIVET HOLE 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 POCT GLUCOSE DEVICE Routine 05/20/2024 3 :33 PM RIVET HOLE 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 PEP THERAPY Routine 05/20/2024 12:00 PM RIVET HOLE 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 POCT GLUCOSE DEVICE Routine 05/20/2024 11:36 AM RIVET HOLE 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 POCT GLUCOSE DEVICE Routine 05/20/2024 7 :28 AM RIVET HOLE 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 CRITICAL CARE Routine 05/20/2024 7:27 AM RIVET HOLE 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 Fall, initial encounter XR CHEST 1 VIEW ED Urgent/IP Urgent 05/20/2024 6:25 AM RIVET HOLE 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 PEP THERAPY Routine 05/20/2024 6:01 AM RIVET HOLE 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 POCT GLUCOSE DEVICE Routine 05/20/2024 3 :47 AM RIVET HOLE 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 BLOOD GAS, ARTERIAL STAT 05/20/2024 3 :01 AM RIVET HOLE 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 PEP THERAPY Routine 05/20/2024 12:00 AM RIVET HOLE 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 POCT GLUCOSE DEVICE Routine 05/19/2024 11:34 PM RIVET HOLE 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 REPOSITION ENDOTRACHEAL TUBE Routine 05/19/2024 10:35 PM RIVET HOLE 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 EGFR Routine 05/19/2024 9:35 PM RIVET HOLE 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 BLOOD GAS, ARTERIAL Routine 05/19/2024 9 :35 PM RIVET HOLE 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 BASIC METABOLIC PANEL Routine 05/19/2024 9:35 PM RIVET HOLE 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 CBC WITHOUT DIFFERENTIAL Routine 9:35 PM RIVET HOLE 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 MAGNESIUM Routine 05/19/2024 9:35 PM RIVET HOLE 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 PHOSPHORUS Routine 05/19/2024 9:35 PM RIVET HOLE 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 CRITICAL CARE Routine 05/19/2024 8:59 PM RIVET HOLE 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 Fall, initial encounter POCT GLUCOSE DEVICE Routine 05/19/2024 7 :36 PM RIVET HOLE 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 PEP THERAPY Routine 05/19/2024 6:00 PM RIVET HOLE 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 POCT GLUCOSE DEVICE Routine 05/19/2024 3 :43 PM RIVET HOLE 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 RT COMMUNICATION Routine 05/19/2024 2:30 PM RIVET HOLE 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 XR CHEST 1 VIEW ED Urgent/IP Urgent 05/19/2024 2:08 PM RIVET HOLE 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 POCT GLUCOSE DEVICE Routine 05/19/2024 12:49 PM RIVET HOLE 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 EGFR STAT 05/19/2024 12:45 PM RIVET HOLE 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 PHOSPHORUS STAT 05/19/2024 12:45 PM RIVET HOLE 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 MAGNESIUM STAT 05/19/2024 12:45 PM RIVET HOLE 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 BASIC METABOLIC PANEL STAT 05/19/2024 12:45 PM RIVET HOLE 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 CBC WITHOUT DIFFERENTIAL STAT 025 12:45 PM RIVET HOLE 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 BLOOD GAS, ARTERIAL STAT 05/19/2024 12:45 PM RIVET HOLE 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 PEP THERAPY Routine 05/19/2024 12:00 PM RIVET HOLE 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 FL FLUOROSCOPY < 1 HOUR IP Routine 05/19/19 11:22 AM RIVET HOLE 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 POC BLOOD GAS AND CHEMISTRIES, ARTERIAL Routine 05/19/2024 10:38 AM RIVET HOLE 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 AR AN PROCEDURE PLACEHOLDER Routine 05/19/2024 9:51 AM RIVET HOLE 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 AR AN PROCEDURE PLACEHOLDER Routine 05/19/2024 9:46 AM RIVET HOLE 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 AR AN ELECTIVE ENDOTRACHEAL AIRWAY Routine 05/19/2024 9:46 AM RIVET HOLE 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 POC BLOOD GAS AND CHEMISTRIES, ARTERIAL Routine 05/19/2024 8:35 AM RIVET HOLE 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 OPEN REDUCTION INTERNAL FIXATION - ORBITAL FRACTURE 05/19/2024 7:54 AM RIVET HOLE 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 Fall, initial encounter Closed fracture of right orbital floor, initial encounter ([facility]) Case Notes [id number]- Per Shavonne via email make first start - DMF [email or web address]- Per Dr. Lea via case msg - Outpatient, 2 hours- [email or web address]- Case msg sent to home care scheduler for ctc and po destination- [facility] POCT GLUCOSE DEVICE Routine 05/19/2024 7 :36 AM RIVET HOLE 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 CRITICAL CARE Routine 05/19/2024 7:06 AM RIVET HOLE 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 Fall, initial encounter PEP THERAPY Routine 05/19/2024 6:01 AM RIVET HOLE 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 CRITICAL RESULT CALLBACK CHEMISTRY Timed 05/19/2024 5:18 AM RIVET HOLE 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 TYPE AND SCREEN Timed 05/19/2024 5:18 AM RIVET HOLE 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 BLOOD GAS, VENOUS Timed 05/19/2024 5:1 8 AM RIVET HOLE 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 CRITICAL RESULT CALLBACK CHEMISTRY Timed 05/19/2024 3:41 AM RIVET HOLE 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 BLOOD GAS, ARTERIAL Timed 05/19/2024 3 :41 AM RIVET HOLE 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 XR CHEST 1 VIEW ED Urgent/IP Urgent 05/19/2024 3:20 AM RIVET HOLE 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 CRITICAL CARE Routine 05/19/2024 3:00 AM RIVET HOLE 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 POCT GLUCOSE DEVICE Routine 05/19/2024 2 :38 AM RIVET HOLE 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 CTA/CTP RAPID STROKE Critical/Life-T hreatening 05/19/2024 2:26 AM RIVET HOLE 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 POCT [id number],WB - ISTAT Routine 05/19/2024 1:27 AM RIVET HOLE 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 ARTERIAL BLOOD GAS W/LACTATE Routine 05/19/2024 1:22 AM RIVET HOLE 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 POCT GLUCOSE DEVICE Routine 05/19/2024 1 :15 AM RIVET HOLE 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 EGFR Routine 05/19/2024 12:55 AM RIVET HOLE 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 POTASSIUM, WHOLE BLOOD STAT 12:55 AM RIVET HOLE 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 BASIC METABOLIC PANEL Routine 05/19/2024 12:55 AM RIVET HOLE 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 CBC WITHOUT DIFFERENTIAL Routine 025 12:55 AM RIVET HOLE 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 MAGNESIUM Routine 05/19/2024 12:55 AM RIVET HOLE 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 PHOSPHORUS Routine 05/19/2024 12:55 AM RIVET HOLE 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 PEP THERAPY Routine 05/19/2024 12:00 AM RIVET HOLE 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 PEP THERAPY Routine 05/18/2024 6:00 PM RIVET HOLE 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 AR AN PROCEDURE PLACEHOLDER Routine 05/18/2024 4:41 PM RIVET HOLE 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 AR AN ELECTIVE ENDOTRACHEAL AIRWAY Routine 05/18/2024 4:41 PM RIVET HOLE 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 AR AN PROCEDURE PLACEHOLDER Routine 05/18/2024 3:47 PM RIVET HOLE 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 RELEASE CARPAL TUNNEL 05/18/2024 3:02 PM RIVET HOLE 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 Other closed intra-articular fracture of distal end of left radius, initial encounter Case Notes 05/15 per yesenia via case message, ctc is 90 min and post op is surg floor- RC OPEN REDUCTION INTERNAL FIXATION RADIUS - DISTAL 05/18/2024 3:02 PM RIVET HOLE 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 Other closed intra-articular fracture of distal end of left radius, initial encounter Case Notes 2 per yesenia via case message, ctc is 90 min and post op is surg floor- RC PEP THERAPY Routine 05/18/2024 12:00 PM RIVET HOLE MACHINE OPERATOR PEP THERAPY Routine 05/18/2024 6:01 AM RIVET HOLE MACHINE OPERATOR PEP THERAPY Routine 05/18/2024 12:00 AM RIVET HOLE MACHINE OPERATOR EGFR Routine 05/17/2024 11:56 PM RIVET HOLE MACHINE OPERATOR BASIC METABOLIC PANEL Routine 05/17/2024 11:56 PM RIVET HOLE MACHINE OPERATOR CBC WITHOUT DIFFERENTIAL Routine 025 11:56 PM RIVET HOLE MACHINE OPERATOR MAGNESIUM Routine 05/17/2024 11:56 PM RIVET HOLE MACHINE OPERATOR PHOSPHORUS Routine 05/17/2024 11:56 PM RIVET HOLE MACHINE OPERATOR PEP THERAPY Routine 05/17/2024 6:00 PM RIVET HOLE MACHINE OPERATOR PEP THERAPY Routine 05/17/2024 1:43 PM RIVET HOLE MACHINE OPERATOR PEP THERAPY Routine 05/17/2024 1:43 PM RIVET HOLE MACHINE OPERATOR PEP THERAPY Routine 05/17/2024 1:43 PM RIVET HOLE MACHINE OPERATOR PEP THERAPY Routine 05/17/2024 1:43 PM RIVET HOLE MACHINE OPERATOR EGFR Routine 05/16/2024 10:25 PM RIVET HOLE MACHINE OPERATOR BASIC METABOLIC PANEL Routine 05/16/2024 10:25 PM RIVET HOLE MACHINE OPERATOR CBC WITHOUT DIFFERENTIAL Routine 025 10:25 PM RIVET HOLE MACHINE OPERATOR MAGNESIUM Routine 05/16/2024 10:25 PM RIVET HOLE MACHINE OPERATOR PHOSPHORUS Routine 05/16/2024 10:25 PM RIVET HOLE MACHINE OPERATOR EGFR Routine 05/15/2024 10:17 PM RIVET HOLE MACHINE OPERATOR BASIC METABOLIC PANEL Routine 05/15/2024 10:17 PM RIVET HOLE MACHINE OPERATOR CBC WITHOUT DIFFERENTIAL Routine 025 10:17 PM RIVET HOLE MACHINE OPERATOR MAGNESIUM Routine 05/15/2024 10:17 PM RIVET HOLE MACHINE OPERATOR PHOSPHORUS Routine 05/15/2024 10:17 PM RIVET HOLE MACHINE OPERATOR BLOOD GAS, ARTERIAL STAT 05/15/2024 11:40 AM RIVET HOLE MACHINE OPERATOR TRANSTHORACIC ECHO (TTE) COMPLETE W DOPPLER/CF W CONTRAST Routine 05/15/2024 10:00 AM RIVET HOLE MACHINE OPERATOR EGFR Routine 05/15/2024 8:13 AM RIVET HOLE MACHINE OPERATOR BASIC METABOLIC PANEL Routine 05/15/2024 8:13 AM RIVET HOLE MACHINE OPERATOR CBC WITHOUT DIFFERENTIAL Routine 025 8:13 AM RIVET HOLE MACHINE OPERATOR MAGNESIUM Routine 05/15/2024 8:13 AM RIVET HOLE MACHINE OPERATOR PHOSPHORUS Routine 05/15/2024 8:13 AM RIVET HOLE MACHINE OPERATOR ECG 12-LEAD STAT 05/15/2024 7:03 AM RIVET HOLE MACHINE OPERATOR ECG 12-LEAD STAT 05/15/2024 7:02 AM RIVET HOLE MACHINE OPERATOR POCT GLUCOSE DEVICE Routine 05/14/2024 12:41 PM RIVET HOLE MACHINE OPERATOR MRI BRAIN TUMOR W WO CONTRAST ED Urgent/IP Urgent 05/14/2024 12:04 PM RIVET HOLE MACHINE OPERATOR US CAROTIDS DUPLEX BILATERAL IP Routine 05/14/2024 9:45 AM RIVET HOLE MACHINE OPERATOR EGFR STAT 05/14/2024 7:00 AM RIVET HOLE MACHINE OPERATOR PHOSPHORUS STAT 05/14/2024 7:00 AM RIVET HOLE MACHINE OPERATOR MAGNESIUM STAT 05/14/2024 7:00 AM RIVET HOLE MACHINE OPERATOR BASIC METABOLIC PANEL STAT 05/14/2024 7:00 AM RIVET HOLE MACHINE OPERATOR CBC WITHOUT DIFFERENTIAL STAT 025 7:00 AM RIVET HOLE MACHINE OPERATOR ECG 12-LEAD STAT 05/13/2024 9:31 PM RIVET HOLE MACHINE OPERATOR CRITICAL RESULT CALLBACK CHEMISTRY Timed 05/13/2024 8:11 PM RIVET HOLE MACHINE OPERATOR BLOOD GAS, VENOUS Timed 05/13/2024 8:1 1 PM RIVET HOLE MACHINE OPERATOR BLOOD GAS, VENOUS Timed 05/13/2024 5:4 9 PM RIVET HOLE MACHINE OPERATOR EGFR STAT 05/13/2024 5:13 PM RIVET HOLE MACHINE OPERATOR BLOOD GAS, VENOUS Routine 05/13/2024 5:1 3 PM RIVET HOLE MACHINE OPERATOR COMPREHENSIVE METABOLIC PANEL STAT 05/13/2024 5:13 PM RIVET HOLE MACHINE OPERATOR XR WRIST LEFT 3 OR MORE VIEWS ED 05/13/2024 5:11 PM RIVET HOLE MACHINE OPERATOR XR HAND LEFT 3 OR MORE VIEWS ED 05/13/2024 5:11 PM RIVET HOLE MACHINE OPERATOR CRITICAL RESULT CALLBACK CHEMISTRY Timed 05/13/2024 3:11 PM RIVET HOLE MACHINE OPERATOR BLOOD GAS, VENOUS Timed 05/13/2024 3:1 1 PM RIVET HOLE MACHINE OPERATOR DRUGS OF ABUSE SCREEN, URINE WITH REFLEX CONFIRMATION Routine 05/13/2024 3:11 PM RIVET HOLE MACHINE OPERATOR POC BLOOD GAS AND CHEMISTRIES, VENOUS Routine 05/13/2024 11:26 AM RIVET HOLE MACHINE OPERATOR BLOOD GAS, VENOUS STAT 05/13/2024 11:23 AM RIVET HOLE MACHINE OPERATOR AR CRITICAL CARE ILL/INJURED PATIENT INIT 30-74 MIN Routine 05/13/2024 9:51 AM RIVET HOLE MACHINE OPERATOR POC BLOOD GAS AND CHEMISTRIES, VENOUS Routine 05/13/2024 8:37 AM RIVET HOLE MACHINE OPERATOR AR CRITICAL CARE ILL/INJURED PATIENT INIT 30-74 MIN Routine 05/13/2024 6:57 AM RIVET HOLE MACHINE OPERATOR HEPARIN ANTI FACTOR XA ACTIVITY STAT 05/13/2024 6:45 AM RIVET HOLE MACHINE OPERATOR CT HEAD WO CONTRAST ED Urgent/IP Urgent 05/13/2024 5:53 AM RIVET HOLE MACHINE OPERATOR BLOOD GAS, VENOUS STAT 05/13/2024 3:3 8 AM RIVET HOLE MACHINE OPERATOR XR TRANSFER OF OUTSIDE FILMS Routine 05/13/2024 3:26 AM RIVET HOLE MACHINE OPERATOR XR TRANSFER OF OUTSIDE FILMS Routine 05/13/2024 3:24 AM RIVET HOLE MACHINE OPERATOR XR TRANSFER OF OUTSIDE FILMS Routine 05/13/2024 3:22 AM RIVET HOLE MACHINE OPERATOR XR TRANSFER OF OUTSIDE FILMS Routine 05/13/2024 3:20 AM RIVET HOLE MACHINE OPERATOR NEURO CT OUTSIDE CONSULT Routine 025 3:17 AM RIVET HOLE MACHINE OPERATOR NEURO CT OUTSIDE CONSULT Routine 025 3:13 AM RIVET HOLE MACHINE OPERATOR CT BODY OUTSIDE CONSULT Routine 05/13/19 3:10 AM RIVET HOLE MACHINE OPERATOR XR CHEST 1 VIEW ED 05/13/2024 1:20 AM RIVET HOLE MACHINE OPERATOR POCT GLUCOSE DEVICE Routine 05/13/2024 1 :14 AM RIVET HOLE MACHINE OPERATOR POC BLOOD GAS AND CHEMISTRIES, VENOUS Routine 05/13/2024 1:13 AM RIVET HOLE MACHINE OPERATOR THROMBOELASTOMETRY PANEL - INTRINSIC Routine 05/13/2024 12:59 AM RIVET HOLE MACHINE OPERATOR THROMBOELASTOMETRY PANEL - HEPARIN Routine 05/13/2024 12:59 AM RIVET HOLE MACHINE OPERATOR THROMBOELASTOMETRY PANEL - EXTRINSIC Routine 05/13/2024 12:59 AM RIVET HOLE MACHINE OPERATOR THROMBOELASTOMETRY PANEL - FIBRINOGEN Routine 05/13/2024 12:59 AM RIVET HOLE MACHINE OPERATOR DIFFERENTIAL AUTO Routine 05/13/2024 12:59 AM RIVET HOLE MACHINE OPERATOR THROMBOELASTOMETRY PANEL Routine 025 12:59 AM RIVET HOLE MACHINE OPERATOR PROTIME-INR Routine 05/13/2024 12:59 AM RIVET HOLE MACHINE OPERATOR APTT Routine 05/13/2024 12:59 AM RIVET HOLE MACHINE OPERATOR ETHANOL Routine 05/13/2024 12:59 AM RIVET HOLE MACHINE OPERATOR CBC WITH AUTO DIFFERENTIAL Routine 05/13/2024 12:59 AM RIVET HOLE MACHINE OPERATOR TYPE AND SCREEN Timed 05/13/2024 12:59 AM RIVET HOLE MACHINE OPERATOR from Last 3 Months Results * [place] Modified Barium Swallow W Video (05/27/2024 10:35 AM RIVET HOLE MACHINE OPERATOR) Anatomical Region Laterality Modality Head and Neck N/A Radio Fluoroscop y 05/27/2024 11:0 1 AM RIVET HOLE MACHINE OPERATOR Impressions 05/27/2024 11:14 AM RIVET HOLE MACHINE OPERATOR The swallowing mechanism is normal; see above comments. Please refer to the Speech Pathology procedure note for safe swallow recommendations as well as additional information regarding the oral-pharyngeal swallow function, plan of care, and recommended follow up. Dictated by: Na Junior M.D. The radiology attending physician has personally reviewed this study, and had reviewed and/or edited this written report and agrees with it. Electronically signed by: Murtaza Serrano M.D., Ph.D Narrative 05/27/2024 11:14 AM RIVET HOLE MACHINE OPERATOR EXAMINATION: MODIFIED BARIUM SWALLOW HISTORY: Dysphagia. TECHNIQUE: This procedure was completed in conjunction with a Speech Language Pathologist. The patient was given barium of multiple different consistencies to swallow. Video fluoroscopy was employed during the exam. FINDINGS: Oral-pharyngeal swallow function is normal. Penetration: No Aspiration: No Residue:No Other comments: None Procedure Note Murtaza Serrano MD PhD - 05/27/2024 EXAMINATION: MODIFIED BARIUM SWALLOW HISTORY: Dysphagia. TECHNIQUE: This procedure was completed in conjunction with a Speech Language Pathologist. The patient was given barium of multiple different consistencies to swallow. Video fluoroscopy was employed during the exam. FINDINGS: Oral-pharyngeal swallow function is normal. Penetration: No Aspiration: No Residue:No Other comments: None IMPRESSION: The swallowing mechanism is normal; see above comments. Please refer to the Speech Pathology procedure note for safe swallow recommendations as well as additional information regarding the oral-pharyngeal swallow function, plan of care, and recommended follow up. Dictated by: Na Junior M.D. The radiology attending physician has personally reviewed this study, and had reviewed and/or edited this written report and agrees with it. Electronically signed by: Murtaza Serrano M.D., Ph.D us Debby Gaona [employer] WORKER IMG FLUOROSCOPY PROCED URES Final Result * eGFR (05/26/2024 9:12 PM RIVET HOLE MACHINE OPERATOR) eGFR 88 >=60 mL/min/1. 73 m2 Comment: Interpretive Data Reference Interval Normal >/= 90 mL/min/1.73m2 Mildly decreased* 60 - 89 mL/min/1.73m2 Mildly to moderately decreased 45 - 59 mL/min/1.73m2 Moderately to severely decreased 30 - 44 mL/min/1.73m2 Severely decreased 15 - 29 mL/min/1.73m2 Kidney Failure < 15 mL/min/1.73m2 *Relative to young adult level Estimated glomerular filtration rate is determined by the 2020 CKD-EPI equation recommended by the National [employer] (A Unifying Approach to GFR Estimation: Recommendations of the NKF-ASK Task Force on Reassessing the Inclusion of Race in Diagnosing Kidney Disease, JASN 2020). The CKD-EPI equation should not be used for patients with unstable renal function and has not been validated in children and those over 70. Current interpretive data was last reviewed 2021. Blood 05/26/2024 9:12 PM RIVET HOLE MACHINE OPERATOR 05/26/2024 9:54 PM RIVET HOLE MACHINE OPERATOR us Christiano Ko MD LAB BLOOD ORDERABLES Final Result [facility] Department [place] [address] * (ABNORMAL) CBC without differential (05/26/2024 9:12 PM RIVET HOLE MACHINE OPERATOR) Pathologist [facility] WBC 8.8 3.8 - 9.9 K/cumm Hgb 9.7(L) 11.9 - 15.5 g/dL [facility] Hct 32.8(L) 35.6 - 45.5 % [facility] Plt 209 150 - 400 K/cumm [facility] MPV 11.9 9.1 - 12.3 fL [facility] RBC 3.36(L) 3.90 - 5.20 M/cumm [facility] MCV 97.6(H) 81.3 - 96.4 fL [facility] MCH 28.9 27.1 - 33.3 pg [facility] MCHC 29.6(L) 32.3 - 35.7 g/dL [facility] RDW CV 14.2 11.1 - 14.9 % [facility] RDW SD 50.4(H) 35.7 - 48.1 fL [facility] NRBC abs 0.00 0.00 - 0.01 K/cumm [facility] Blood 05/26/2024 9:12 PM [employer]IVET [employer] MACHINE OPERATOR 05/26/2024 9:54 PM RIVET HOLE MACHINE OPERATOR Christiano Ko MD LAB BLOOD ORDERABLES Final Result [facility] [place] [address] * Phosphorus (05/26/2024 9:12 PM RIVET HOLE MACHINE OPERATOR) Pathologist [facility] Phosphorus, pl 2.8 2.3 - 4.5 mg/dL Blood 05/26/2024 9:12 PM RIVET HOLE MACHINE OPERATOR 05/26/2024 9:54 PM RIVET HOLE MACHINE OPERATOR Christiano Ko MD LAB BLOOD ORDERABLES Final Result [facility] [place] [address] * Magnesium (05/26/2024 9:12 PM RIVET HOLE MACHINE OPERATOR) Pathologist [facility] Magnesium 2.0 1.4 - 2.5 mg/dL Blood 05/26/2024 9:12 PM RIVET HOLE MACHINE OPERATOR 05/26/2024 9:54 PM RIVET HOLE MACHINE OPERATOR Christiano Ko MD LAB BLOOD ORDERABLES Final Result [facility] [place] [address] * Basic metabolic panel (05/26/2024 9:12 PM RIVET HOLE MACHINE OPERATOR) Pathologist [facility] Sodium 143 135 - 145 mmol/L Potassium, pl 4.2 3.3 - 4.9 mmol/L [facility] Chloride 102 97 - 110 mmol/L [facility] CO2 31 22 - 32 mmol/L [facility] Anion gap 10 2 - 15 mmol/L [facility] BUN 21 6 - 25 mg/dL [facility] Creatinine 0.71 0.60 - 1.10 mg/dL [facility] Glucose 165 70 - 199 mg/dL [facility] Comment: Interpretive Data Fasting glucose >/= 126 mg/dl is diagnostic for diabetes. Fasting is defined as no caloric intake for at least 8 hours. Fasting glucose between 100 mg/dl to 125 mg/dl is diagnostic of prediabetes. In a patient with classic symptoms of hyperglycemia or hyperglycemic crisis, a random glucose >/= 200 mg/dl is diagnostic for diabetes. In the absence of unequivocal hyperglycemia, results should be confirmed by repeat testing. The classification and Diagnosis of Diabetes Diabetes Care 2021; 46: S19-S40. Current interpretive data was last revised 2022. Calcium 9.3 8.5 - 10.3 mg/dL [facility] Blood 05/26/2024 9:12 PM RIVET HOLE MACHINE OPERATOR 05/26/2024 9:54 PM RIVET HOLE MACHINE OPERATOR Christiano Ko MD LAB BLOOD ORDERABLES Final Result [facility] Department [place] [address] * eGFR (05/25/2024 9:54 PM RIVET HOLE MACHINE OPERATOR) [facility] eGFR >90 >=60 mL/min/1. 73 m2 Comment: Interpretive Data Reference Interval Normal >/= 90 mL/min/1.73m2 Mildly decreased* 60 - 89 mL/min/1.73m2 Mildly to moderately decreased 45 - 59 mL/min/1.73m2 Moderately to severely decreased 30 - 44 mL/min/1.73m2 Severely decreased 15 - 29 mL/min/1.73m2 Kidney Failure < 15 mL/min/1.73m2 *Relative to young adult level Estimated glomerular filtration rate is determined by the 2020 CKD-EPI equation recommended by the National Kidney Foundation (A Unifying Approach to GFR Estimation: Recommendations of the NKF-ASK Task Force on Reassessing the Inclusion of Race in Diagnosing Kidney Disease, JASN 2020). The CKD-EPI equation should not be used for patients with unstable renal function and has not been validated in children and those over 70. Current interpretive data was last reviewed 2021. Blood 05/25/2024 9:54 PM RIVET HOLE MACHINE OPERATOR 05/25/2024 10:27 PM RIVET HOLE MACHINE OPERATOR Christiano Ko MD LAB BLOOD ORDERABLES Final Result [facility] [place] [address] * (ABNORMAL) CBC without differential (05/25/2024 9:54 PM RIVET HOLE MACHINE OPERATOR) WBC 6.4 3.8 - 9.9 K/cumm Hgb 9.4(L) 11.9 - 15.5 g/dL [facility] Hct 31.2(L) 35.6 - 45.5 % [facility] Plt 170 150 - 400 K/cumm [facility] MPV 11.5 9.1 - 12.3 fL [facility] RBC 3.22(L) 3.90 - 5.20 M/cumm [facility] MCV 96.9(H) 81.3 - 96.4 fL [facility] MCH 29.2 27.1 - 33.3 pg [facility] MCHC 30.1(L) 32.3 - 35.7 g/dL [facility] RDW CV 14.3 11.1 - 14.9 % [facility] RDW SD 50.5(H) 35.7 - 48.1 fL [facility] NRBC abs 0.00 0.00 - 0.01 K/cumm [facility] Blood 05/25/2024 9:54 PM RIVET HOLE MACHINE OPERATOR 05/25/2024 10:27 PM RIVET HOLE MACHINE OPERATOR Christiano Ko MD LAB BLOOD ORDERABLES Final Result Performing Organization Address City/[facility]/ZIP Co de Phone Number [facility] [place] [address] * Phosphorus (05/25/2024 9:54 PM RIVET HOLE MACHINE OPERATOR) Pathologist [facility] Phosphorus, pl 3.5 2.3 - 4.5 mg/dL Blood 05/25/2024 9:54 PM RIVET HOLE MACHINE OPERATOR 05/25/2024 10:27 PM RIVET HOLE MACHINE OPERATOR Christiano Ko MD LAB BLOOD ORDERABLES Final Result Performing Organization Address [facility] Co de Phone Number [facility] [place] [address] * Magnesium (05/25/2024 9:54 PM RIVET HOLE MACHINE OPERATOR) [facility] Magnesium 2.1 1.4 - 2.5 mg/dL Blood 05/25/2024 9:54 PM RIVET HOLE MACHINE OPERATOR 05/25/2024 10:27 PM RIVET HOLE MACHINE OPERATOR Christiano Ko MD LAB BLOOD ORDERABLES Final Result Performing Organization Address [facility] Co de Phone Number [facility] [place] [address] * (ABNORMAL) Basic metabolic panel (05/25/2024 9:54 PM RIVET HOLE MACHINE OPERATOR) Pathologist [facility] Sodium 145 135 - 145 mmol/L Potassium, pl 4.4 3.3 - 4.9 mmol/L [facility] Chloride 105 97 - 110 mmol/L [facility] CO2 33(H) 22 - 32 mmol/L [facility] Anion gap 7 2 - 15 mmol/L [facility] BUN 13 6 - 25 mg/dL [facility] Creatinine 0.66 0.60 - 1.10 mg/dL [facility] Glucose 112 70 - 199 mg/dL [facility] Comment: Interpretive Data Fasting glucose >/= 126 mg/dl is diagnostic for diabetes. Fasting is defined as no caloric intake for at least 8 hours. Fasting glucose between 100 mg/dl to 125 mg/dl is diagnostic of prediabetes. In a patient with classic symptoms of hyperglycemia or hyperglycemic crisis, a random glucose >/= 200 mg/dl is diagnostic for diabetes. In the absence of unequivocal hyperglycemia, results should be confirmed by repeat testing. The classification and Diagnosis of Diabetes Diabetes Care 202; 46: S19-S40. Current interpretive data was last revised 2022. Calcium 9.2 8.5 - 10.3 mg/dL [facility] Blood 05/25/2024 9:54 PM RIVET HOLE MACHINE OPERATOR 05/25/2024 10:27 PM RIVET HOLE MACHINE OPERATOR Christiano Ko MD LAB BLOOD ORDERABLES Final Result [facility] Department [place] [address] * ECG 12 lead (05/24/2024 10:55 PM RIVET HOLE MACHINE OPERATOR) Ventricular Rate EKG/Min 99 BPM [facility] QRS-Interval (MSEC) 86 ms [facility] QT-Interval (MSEC) 364 ms [facility] QTc 467 ms [facility] R [place] 91 degrees [facility] T [place] 160 degrees [facility] Diagnosis Atrial fibrillation/fl utter Rightward axis Low voltage QRS Cannot rule out Anterior infarct , age undetermined ST & T wave abnormality, consider lateral ischemia Abnormal ECG When compared with ECG of 23-MAY-2024 23:24, (unconfirmed) T wave inversion no longer evident in Anterior leads Confirmed by GABO PIEDRA M.D ([id number]) on 05/25/2024 3:55:52 PM [facility] 05/24/2024 10:5 5 PM RIVET HOLE MACHINE OPERATOR 05/25/2024 3:55 PM RIVET HOLE MACHINE OPERATOR Christiano Ko MD ECG ORDERABLES Final Resul t Performing Organization Address City/[facility]/ZIP Co de Phone Number [facility] * eGFR (05/24/2024 8:54 PM RIVET HOLE MACHINE OPERATOR) eGFR 90 >=60 mL/min/1. 73 m2 Comment: Interpretive Data Reference Interval Normal >/= 90 mL/min/1.73m2 Mildly decreased* 60 - 89 mL/min/1.73m2 Mildly to moderately decreased 45 - 59 mL/min/1.73m2 Moderately to severely decreased 30 - 44 mL/min/1.73m2 Severely decreased 15 - 29 mL/min/1.73m2 Kidney Failure < 15 mL/min/1.73m2 *Relative to young adult level Estimated glomerular filtration rate is determined by the 2020 CKD-EPI equation recommended by the National Kidney Foundation (A Unifying Approach to GFR Estimation: Recommendations of the NKF-ASK Task Force on Reassessing the Inclusion of Race in Diagnosing Kidney Disease, JASN 2020). The CKD-EPI equation should not be used for patients with unstable renal function and has not been validated in children and those over 70. Current interpretive data was last reviewed 2021. Blood 05/24/2024 8:54 PM RIVET HOLE MACHINE OPERATOR 05/24/2024 9:30 PM RIVET HOLE MACHINE OPERATOR us Christiano Ko MD LAB BLOOD ORDERABLES Final Result [facility] Department [place] [address] * (ABNORMAL) CBC without differential (05/24/2024 8:54 PM RIVET HOLE MACHINE OPERATOR) WBC 7.1 3.8 - 9.9 K/cumm Hgb 9.1(L) 11.9 - 15.5 g/dL [facility] Hct 29.6(L) 35.6 - 45.5 % [facility] Plt 162 150 - 400 K/cumm [facility] MPV 11.4 9.1 - 12.3 fL [facility] RBC 3.10(L) 3.90 - 5.20 M/cumm [facility] MCV 95.5 81.3 - 96.4 fL [facility] MCH 29.4 27.1 - 33.3 pg [facility] MCHC 30.7(L) 32.3 - 35.7 g/dL [facility] RDW CV 14.5 11.1 - 14.9 % [facility] RDW SD 50.9(H) 35.7 - 48.1 fL [facility] NRBC abs 0.00 0.00 - 0.01 K/cumm [facility] Blood 05/24/2024 8:54 PM RIVET HOLE MACHINE OPERATOR 05/24/2024 9:31 PM RIVET HOLE MACHINE OPERATOR Christiano Ko MD LAB BLOOD ORDERABLES Final Result [facility] [place] [address] * Phosphorus (05/24/2024 8:54 PM RIVET HOLE MACHINE OPERATOR) Pathologist [facility] Phosphorus, pl 2.5 2.3 - 4.5 mg/dL Blood 05/24/2024 8:54 PM RIVET HOLE MACHINE OPERATOR 05/24/2024 9:30 PM RIVET HOLE MACHINE OPERATOR Christiano Ko MD LAB BLOOD ORDERABLES Final Result [facility] [place] [address] * Magnesium (05/24/2024 8:54 PM RIVET HOLE MACHINE OPERATOR) Pathologist [facility] Magnesium 2.0 1.4 - 2.5 mg/dL Blood 05/24/2024 8:54 PM RIVET HOLE MACHINE OPERATOR 05/24/2024 9:30 PM RIVET HOLE MACHINE OPERATOR us Christiano Ko MD LAB BLOOD ORDERABLES Final Result [facility] Department [place] [address] * (ABNORMAL) Basic metabolic panel (05/24/2024 8:54 PM RIVET HOLE MACHINE OPERATOR) Pathologist [facility] Sodium 146(H) 135 - 145 mmol/L Potassium, pl 4.8 3.3 - 4.9 mmol/L [facility] Chloride 108 97 - 110 mmol/L [facility] CO2 30 22 - 32 mmol/L [facility] Anion gap 8 2 - 15 mmol/L [facility] BUN 19 6 - 25 mg/dL [facility] Creatinine 0.70 0.60 - 1.10 mg/dL [facility] Glucose 104 70 - 199 mg/dL [facility] Comment: Interpretive Data Fasting glucose >/= 126 mg/dl is diagnostic for diabetes. Fasting is defined as no caloric intake for at least 8 hours. Fasting glucose between 100 mg/dl to 125 mg/dl is diagnostic of prediabetes. In a patient with classic symptoms of hyperglycemia or hyperglycemic crisis, a random glucose >/= 200 mg/dl is diagnostic for diabetes. In the absence of unequivocal hyperglycemia, results should be confirmed by repeat testing. The classification and Diagnosis of Diabetes Diabetes Care 202; 46: S19-S40. Current interpretive data was last revised 2022. Calcium 9.1 8.5 - 10.3 mg/dL [facility] Blood 05/24/2024 8:54 PM RIVET HOLE MACHINE OPERATOR 05/24/2024 9:30 PM RIVET HOLE MACHINE OPERATOR Christiano Ko MD LAB BLOOD ORDERABLES Final Result [facility] [place] [address] * ECG 12 lead (05/23/2024 11:24 PM RIVET HOLE MACHINE OPERATOR) Pathologist [facility] Ventricular Rate EKG/Min 88 BPM [facility] QRS-Interval (MSEC) 84 ms [facility] QT-Interval (MSEC) 364 ms [facility] QTc 440 ms [facility] R [place] 96 degrees [facility] T [place] 148 degrees [facility] Diagnosis Atrial fibrillation/flu tter Rightward axis Low voltage QRS ST & T wave abnormality, consider anterolateral ischemia Abnormal ECG When compared with ECG of 15-MAY-2024 07:03, ST now depressed in Lateral leads Nonspecific T wave abnormality, improved in Inferior leads T wave inversion now evident in Anterolateral leads QT has shortened Confirmed by GABO PIEDRA M.D ([id number]) on 05/26/2024 11:12:20 AM [facility] 05/23/2024 11:2 4 PM RIVET HOLE MACHINE OPERATOR 05/26/2024 11:12 AM RIVET HOLE MACHINE OPERATOR us Christiano Ko MD ECG ORDERABLES Final Resul t [facility] * eGFR (05/23/2024 8:13 PM RIVET HOLE MACHINE OPERATOR) eGFR 80 >=60 mL/min/1. 73 m2 Comment: Interpretive Data Reference Interval Normal >/= 90 mL/min/1.73m2 Mildly decreased* 60 - 89 mL/min/1.73m2 Mildly to moderately decreased 45 - 59 mL/min/1.73m2 Moderately to severely decreased 30 - 44 mL/min/1.73m2 Severely decreased 15 - 29 mL/min/1.73m2 Kidney Failure < 15 mL/min/1.73m2 *Relative to young adult level Estimated glomerular filtration rate is determined by the 2020 CKD-EPI equation recommended by the National Kidney Foundation (A Unifying Approach to GFR Estimation: Recommendations of the NKF-ASK Task Force on Reassessing the Inclusion of Race in Diagnosing Kidney Disease, JASN 2020). The CKD-EPI equation should not be used for patients with unstable renal function and has not been validated in children and those over 70. Current interpretive data was last reviewed 2021. Blood 05/23/2024 8:13 PM RIVET HOLE MACHINE OPERATOR 05/23/2024 9:00 PM RIVET HOLE MACHINE OPERATOR us Christiano Ko MD LAB BLOOD ORDERABLES Final Result Performing Organization Address City/[facility]/ZIP Co de Phone Number [facility] [place] [address] * (ABNORMAL) CBC without differential (05/23/2024 8:13 PM RIVET HOLE MACHINE OPERATOR) Pathologist [facility] WBC 7.3 3.8 - 9.9 K/cumm Hgb 8.7(L) 11.9 - 15.5 g/dL [facility] Hct 29.1(L) 35.6 - 45.5 % [facility] Plt 153 150 - 400 K/cumm [facility] MPV 11.5 9.1 - 12.3 fL [facility] RBC 3.00(L) 3.90 - 5.20 M/cumm [facility] MCV 97.0(H) 81.3 - 96.4 fL [facility] MCH 29.0 27.1 - 33.3 pg [facility] MCHC 29.9(L) 32.3 - 35.7 g/dL [facility] RDW CV 14.6 11.1 - 14.9 % [facility] RDW SD 52.3(H) 35.7 - 48.1 fL [facility] NRBC abs 0.00 0.00 - 0.01 K/cumm [facility] Blood 05/23/2024 8:13 PM RIVET HOLE MACHINE OPERATOR 05/23/2024 9:03 PM RIVET HOLE MACHINE OPERATOR Christiano Ko MD LAB BLOOD ORDERABLES Final Result [facility] Department [place] [address] * (ABNORMAL) Phosphorus (05/23/2024 8:13 PM RIVET HOLE MACHINE OPERATOR) Pathologist [facility] Phosphorus, pl 2.2(L) 2.3 - 4.5 mg/dL Blood 05/23/2024 8:13 PM RIVET HOLE MACHINE OPERATOR 05/23/2024 9:00 PM RIVET HOLE MACHINE OPERATOR Christiano Ko MD LAB BLOOD ORDERABLES Final Result Performing Organization Address City/[facility]/ZIP Co de Phone Number [facility] Department [place] [address] * Magnesium (05/23/2024 8:13 PM RIVET HOLE MACHINE OPERATOR) [facility] Magnesium 2.0 1.4 - 2.5 mg/dL Blood 05/23/2024 8:13 PM RIVET HOLE MACHINE OPERATOR 05/23/2024 9:00 PM RIVET HOLE MACHINE OPERATOR Christiano Ko MD LAB BLOOD ORDERABLES Final Result Performing Organization Address [facility] de Phone Number [facility] Department [place] [address] * Basic metabolic panel (05/23/2024 8:13 PM RIVET HOLE MACHINE OPERATOR) [facility] Sodium 145 135 - 145 mmol/L Potassium, pl 4.2 3.3 - 4.9 mmol/L [facility] Chloride 106 97 - 110 mmol/L [facility] CO2 32 22 - 32 mmol/L [facility] Anion gap 7 2 - 15 mmol/L [facility] BUN 20 6 - 25 mg/dL [facility] Creatinine 0.77 0.60 - 1.10 mg/dL [facility] Glucose 148 70 - 199 mg/dL [facility] Comment: Interpretive Data Fasting glucose >/= 126 mg/dl is diagnostic for diabetes. Fasting is defined as no caloric intake for at least 8 hours. Fasting glucose between 100 mg/dl to 125 mg/dl is diagnostic of prediabetes. In a patient with classic symptoms of hyperglycemia or hyperglycemic crisis, a random glucose >/= 200 mg/dl is diagnostic for diabetes. In the absence of unequivocal hyperglycemia, results should be confirmed by repeat testing. The classification and Diagnosis of Diabetes Diabetes Care 202; 46: S19-S40. Current interpretive data was last revised 2022. Calcium 8.6 8.5 - 10.3 mg/dL [facility] Blood 05/23/2024 8:13 PM RIVET HOLE MACHINE OPERATOR 05/23/2024 9:00 PM RIVET HOLE MACHINE OPERATOR Christiano Ko MD LAB BLOOD ORDERABLES Final Result Performing Organization Address [facility] Co de Phone Number [facility] Department [place] [address] * Critical Care (05/23/2024 6:40 AM RIVET HOLE MACHINE OPERATOR) Narrative Kelvin Delgado MD - 05/23/2024 6:40 AM RIVET HOLE MACHINE OPERATOR Kelvin Delgado MD 05/23/2024 5:18 PM Critical Care Performed by: Olga Meehan NP Authorized by: Olga Meehan NP CRITICAL CARE: Team: SICU BLUE Shift: AM Level of Billing: Subsequent Hospital Visit Level 3 My time spent with this patient was 75 minutes: Critical Provider Statement: I have seen and examined the patient on this day of service. I have reviewed and confirmed the history, physical exam, laboratory, and radiographic data as documented in the ICU note. I have reviewed and discussed my treatment plan with the patient's team and other medical/home service consultant staff. This time was in addition to and separate from care provided by other practitioners on this day of service. I spent time reviewing and interpreting data from bedside monitors, laboratory results, and imaging and I spent time documenting in the medical record Olga Meehan PARTICLEBOARD FACTORY WORKER IN CLINIC/BEDSIDE O RDERABLES Final Result * POCT glucose (05/22/2024 11:10 PM RIVET HOLE MACHINE OPERATOR) Glucose, POC 98 70 - 199 mg/dL Blood 05/22/2024 11:1 0 PM RIVET HOLE MACHINE OPERATOR 05/22/2024 11:10 PM RIVET HOLE MACHINE OPERATOR Christiano Ko MD LAB POCT ORDERABLES - DEVIC E Final Result Performing Organization Address [facility] Co de Phone Number [facility] Department [place] [address] * eGFR (05/22/2024 8:23 PM RIVET HOLE MACHINE OPERATOR) [facility] eGFR 71 >=60 mL/min/1. 73 m2 Comment: Interpretive Data Reference Interval Normal >/= 90 mL/min/1.73m2 Mildly decreased* 60 - 89 mL/min/1.73m2 Mildly to moderately decreased 45 - 59 mL/min/1.73m2 Moderately to severely decreased 30 - 44 mL/min/1.73m2 Severely decreased 15 - 29 mL/min/1.73m2 Kidney Failure < 15 mL/min/1.73m2 *Relative to young adult level Estimated glomerular filtration rate is determined by the 2020 CKD-EPI equation recommended by the National Kidney Foundation (A Unifying Approach to GFR Estimation: Recommendations of the NKF-ASK Task Force on Reassessing the Inclusion of Race in Diagnosing Kidney Disease, JASN 2020). The CKD-EPI equation should not be used for patients with unstable renal function and has not been validated in children and those over 70. Current interpretive data was last reviewed 2021. Blood 05/22/2024 8:23 PM RIVET HOLE MACHINE OPERATOR 05/22/2024 8:36 PM RIVET HOLE MACHINE OPERATOR Christiano Ko MD LAB BLOOD ORDERABLES Final Result [facility] Department [place] [address] * (ABNORMAL) CBC without differential (05/22/2024 8:23 PM RIVET HOLE MACHINE OPERATOR) [facility] WBC 7.0 3.8 - 9.9 K/cumm Hgb 8.9(L) 11.9 - 15.5 g/dL [facility] Hct 29.2(L) 35.6 - 45.5 % [facility] Plt 158 150 - 400 K/cumm [facility] MPV 11.0 9.1 - 12.3 fL [facility] RBC 3.03(L) 3.90 - 5.20 M/cumm [facility] MCV 96.4 81.3 - 96.4 fL [facility] MCH 29.4 27.1 - 33.3 pg [facility] MCHC 30.5(L) 32.3 - 35.7 g/dL [facility] RDW CV 14.8 11.1 - 14.9 % [facility] RDW SD 52.5(H) 35.7 - 48.1 fL [facility] NRBC abs 0.00 0.00 - 0.01 K/cumm [facility] Blood 05/22/2024 8:23 PM RIVET HOLE MACHINE OPERATOR 05/22/2024 8:36 PM RIVET HOLE MACHINE OPERATOR Christiano Ko MD LAB BLOOD ORDERABLES Final Result Performing Organization Address City/[facility]/ZIP Co de Phone Number [facility] [place] [address] * Phosphorus (05/22/2024 8:23 PM RIVET HOLE MACHINE OPERATOR) Phosphorus, pl 3.0 2.3 - 4.5 mg/dL Blood 05/22/2024 8:23 PM RIVET HOLE MACHINE OPERATOR 05/22/2024 8:36 PM RIVET HOLE MACHINE OPERATOR Christiano Ko MD LAB BLOOD ORDERABLES Final Result Performing Organization Address [facility] Co de Phone Number [facility] Department [place] [address] * Magnesium (05/22/2024 8:23 PM RIVET HOLE MACHINE OPERATOR) Magnesium 2.2 1.4 - 2.5 mg/dL Blood 05/22/2024 8:23 PM RIVET HOLE MACHINE OPERATOR 05/22/2024 8:36 PM RIVET HOLE MACHINE OPERATOR Christiano Ko MD LAB BLOOD ORDERABLES Final Result Performing Organization Address City/[facility] Co de Phone Number [facility] [place] [address] * (ABNORMAL) Basic metabolic panel (05/22/2024 8:23 PM RIVET HOLE MACHINE OPERATOR) Sodium 146(H) 135 - 145 mmol/L Potassium, pl 4.1 3.3 - 4.9 mmol/L [facility] Chloride 106 97 - 110 mmol/L [facility] CO2 33(H) 22 - 32 mmol/L [facility] Anion gap 7 2 - 15 mmol/L [facility] BUN 26(H) 6 - 25 mg/dL [facility] Creatinine 0.85 0.60 - 1.10 mg/dL [facility] Glucose 122 70 - 199 mg/dL [facility] Comment: Interpretive Data Fasting glucose >/= 126 mg/dl is diagnostic for diabetes. Fasting is defined as no caloric intake for at least 8 hours. Fasting glucose between 100 mg/dl to 125 mg/dl is diagnostic of prediabetes. In a patient with classic symptoms of hyperglycemia or hyperglycemic crisis, a random glucose >/= 200 mg/dl is diagnostic for diabetes. In the absence of unequivocal hyperglycemia, results should be confirmed by repeat testing. The classification and Diagnosis of Diabetes Diabetes Care 2021; 46: S19-S40. Current interpretive data was last revised 2022. Calcium 8.2(L) 8.5 - 10.3 mg/dL [facility] Blood 05/22/2024 8:23 PM RIVET HOLE MACHINE OPERATOR 05/22/2024 8:36 PM RIVET HOLE MACHINE OPERATOR us Christiano Ko MD LAB BLOOD ORDERABLES Final Result [facility] [place] [address] * Critical Care (05/22/2024 7:32 PM RIVET HOLE MACHINE OPERATOR) Narrative Murtaza Garcia MD - 05/22/2024 7:32 PM RIVET HOLE MACHINE OPERATOR Murtaza Garcia MD 05/23/2024 6:19 AM Critical Care Performed by: Preston Bosch PA Authorized by: Preston Bosch PA CRITICAL CARE: Team: SICU BLUE Shift: PM Level of Billing: Subsequent Hospital Visit Level 3 My time spent with this patient was 70 minutes: Critical Provider Statement: I have seen and examined the patient on this day of service. I have reviewed and confirmed the history, physical exam, laboratory, and radiographic data as documented in the ICU note. I have reviewed and discussed my treatment plan with the patient's team and other medical/home service consultant staff. This time was in addition to and separate from care provided by other practitioners on this day of service. Preston [facility] DE ORDERABLES Final Result * POCT glucose (05/22/2024 6:58 PM RIVET HOLE MACHINE OPERATOR) Glucose, POC 115 70 - 199 mg/dL Blood 05/22/2024 6:58 PM RIVET HOLE MACHINE OPERATOR 05/22/2024 6:58 PM RIVET HOLE MACHINE OPERATOR Christiano Ko MD LAB POCT ORDERABLES - DEVIC E Final Result Performing Organization Address [facility]/ZIP Co de Phone Number [facility] [place] [address] * (ABNORMAL) Iron profile w/ IBC (05/22/2024 3:44 PM RIVET HOLE MACHINE OPERATOR) [facility] Iron 29(L) 35 - 145 mcg/dL TIBC 258 250 - 400 mcg/dL [facility] Transferrin saturation 11(L) 20 - 50 % [facility] Blood 05/22/2024 3:44 PM RIVET HOLE MACHINE OPERATOR 05/22/2024 4:15 PM RIVET HOLE MACHINE OPERATOR Earnestine Kelly MD LAB BLOOD ORDERABLES Kylie l Result [facility] [place] [address] * POCT glucose (05/22/2024 3:03 PM RIVET HOLE MACHINE OPERATOR) Glucose, POC 111 70 - 199 mg/dL Blood 05/22/2024 3:03 PM RIVET HOLE MACHINE OPERATOR 05/22/2024 3:03 PM RIVET HOLE MACHINE OPERATOR us Christiano Ko MD LAB POCT ORDERABLES - DEVIC E Final Result Performing Organization Address [facility] Co de Phone Number [facility] [place] [address] * POCT glucose (05/22/2024 10:55 AM RIVET HOLE MACHINE OPERATOR) Glucose, POC 130 70 - 199 mg/dL Blood 05/22/2024 10:5 5 AM RIVET HOLE MACHINE OPERATOR 05/22/2024 10:55 AM RIVET HOLE MACHINE OPERATOR Christiano Ko MD LAB POCT ORDERABLES - DEVIC E Final Result Performing Organization Address [facility] Co de Phone Number [facility] [place] [address] * POCT glucose (05/22/2024 7:01 AM RIVET HOLE MACHINE OPERATOR) Glucose, POC 128 70 - 199 mg/dL Blood 05/22/2024 7:01 AM RIVET HOLE MACHINE OPERATOR 05/22/2024 7:01 AM RIVET HOLE MACHINE OPERATOR Christiano Ko MD LAB POCT ORDERABLES - DEVIC E Final Result Performing Organization Address [facility] [place] [address] * Critical Care (05/22/2024 6:44 AM RIVET HOLE MACHINE OPERATOR) Narrative Earnestine Kelly MD - 05/22/2024 6:44 AM RIVET HOLE MACHINE OPERATOR Earnestine Kelly MD 05/22/2024 6:05 PM Critical Care Performed by: Sebastian Moody PA Authorized by: Sebastian Moody PA CRITICAL CARE: Team: SICU BLUE Shift: AM Level of Billing: Critical Care My time spent with this patient was 60 minutes: Critical Provider Statement: I have seen and examined the patient on this day of service. I have reviewed and confirmed the history, physical exam, laboratory and radiologic data as documented in the signed ICU note. I have reviewed and discussed my treatment plan with the ICU team and other medical/home service consultant staff, making frequent assessments and decisions regarding this patient's complex medical care. Critical Care time was exclusive of time spent performing separately billed procedures, treating other patients, and teaching. This time was in addition to and separate from critical care provided by other practitioners in my group on this day of service. Critical Care was necessary to treat or prevent imminent or life-threatening deterioration of the following conditions: I spent time documenting in the medical record, I spent time discussing the management of this critically ill patient with consultants and the medical staff and I spent time reviewing and interpreting data from bedside monitors, laboratory results, and imaging Sebastian HINOJOSA IN CLINIC/BEDSIDE ORDER TEDDY Final Result * (ABNORMAL) Blood gas, arterial (05/22/2024 4:31 AM RIVET HOLE MACHINE OPERATOR) pH, Art 7.44 7.35 - 7.45 PCO2, Arterial 49(H) 35 - 45 mmHg [facility] PO2, Arterial 136(H) 83 - 108 mmHg [facility] HCO3 Art (Calculated) 34(H) 20 - 30 mmol/L [facility] BE, art 8 mmol/L [facility] Comment: Interpretive Data No Reference Range Established Current Interpretive Data was last revised on 2017 O2 Sat Art (Measured) 100(H) 90 - 95 % [facility] Blood 05/22/2024 4:31 AM RIVET HOLE MACHINE OPERATOR 05/22/2024 4:37 AM RIVET HOLE MACHINE OPERATOR Lynsey Otoole NP LAB BLOOD ORDER TEDDY Final Result [facility] Department [place] [address] * POCT glucose (05/22/2024 3:02 AM RIVET HOLE MACHINE OPERATOR) Glucose, POC 149 70 - 199 mg/dL Blood 05/22/2024 3:02 AM RIVET HOLE MACHINE OPERATOR 05/22/2024 3:02 AM RIVET HOLE MACHINE OPERATOR Christiano Ko MD LAB POCT ORDERABLES - DEVIC E Final Result Performing Organization Address City/[facility]/ZIP Co de Phone Number [facility] [place] [address] * POCT glucose (05/21/2024 10:54 PM RIVET HOLE MACHINE OPERATOR) Glucose, POC 122 70 - 199 mg/dL Blood 05/21/2024 10:5 4 PM RIVET HOLE MACHINE OPERATOR 05/21/2024 10:54 PM RIVET HOLE MACHINE OPERATOR Christiano Ko MD LAB POCT ORDERABLES - DEVIC E Final Result Performing Organization Address [facility] de Phone Number [place] [facility] [place] [address] * eGFR (05/21/2024 8:54 PM RIVET HOLE MACHINE OPERATOR) eGFR 71 >=60 mL/min/1. 73 m2 Comment: Interpretive Data Reference Interval Normal >/= 90 mL/min/1.73m2 Mildly decreased* 60 - 89 mL/min/1.73m2 Mildly to moderately decreased 45 - 59 mL/min/1.73m2 Moderately to severely decreased 30 - 44 mL/min/1.73m2 Severely decreased 15 - 29 mL/min/1.73m2 Kidney Failure < 15 mL/min/1.73m2 *Relative to young adult level Estimated glomerular filtration rate is determined by the 2020 CKD-EPI equation recommended by the National Kidney Foundation (A Unifying Approach to GFR Estimation: Recommendations of the NKF-ASK Task Force on Reassessing the Inclusion of Race in Diagnosing Kidney Disease, JASN 2020). The CKD-EPI equation should not be used for patients with unstable renal function and has not been validated in children and those over 70. Current interpretive data was last reviewed 2021. Blood 05/21/2024 8:54 PM RIVET HOLE MACHINE OPERATOR 05/21/2024 9:16 PM RIVET HOLE MACHINE OPERATOR us Christiano Ko MD LAB BLOOD ORDERABLES Final Result [facility] [place] [address] * (ABNORMAL) CBC without differential (05/21/2024 8:54 PM RIVET HOLE MACHINE OPERATOR) WBC 6.7 3.8 - 9.9 K/cumm Hgb 9.5(L) 11.9 - 15.5 g/dL [facility] Hct 29.7(L) 35.6 - 45.5 % [facility] Plt 145(L) 150 - 400 K/cumm [facility] MPV 10.9 9.1 - 12.3 fL [facility] RBC 3.14(L) 3.90 - 5.20 M/cumm [facility] MCV 94.6 81.3 - 96.4 fL [facility] MCH 30.3 27.1 - 33.3 pg [facility] MCHC 32.0(L) 32.3 - 35.7 g/dL [facility] RDW CV 14.8 11.1 - 14.9 % [facility] RDW SD 51.6(H) 35.7 - 48.1 fL [facility] NRBC abs 0.00 0.00 - 0.01 K/cumm [facility] Blood 05/21/2024 8:54 PM RIVET HOLE MACHINE OPERATOR 05/21/2024 9:16 PM RIVET HOLE MACHINE OPERATOR Christiano Ko MD LAB BLOOD ORDERABLES Final Result [facility] [place] [address] * Phosphorus (05/21/2024 8:54 PM RIVET HOLE MACHINE OPERATOR) Phosphorus, pl 2.5 2.3 - 4.5 mg/dL Blood 05/21/2024 8:54 PM RIVET HOLE MACHINE OPERATOR 05/21/2024 9:16 PM RIVET HOLE MACHINE OPERATOR Christiano Ko MD LAB BLOOD ORDERABLES Final Result Performing Organization Address City/[facility] Co de Phone Number [facility] [place] [place] [address] * Magnesium (05/21/2024 8:54 PM RIVET HOLE MACHINE OPERATOR) Pathologist [facility] Magnesium 1.9 1.4 - 2.5 mg/dL Blood 05/21/2024 8:54 PM RIVET HOLE MACHINE OPERATOR 05/21/2024 9:16 PM RIVET HOLE MACHINE OPERATOR Christiano Ko MD LAB BLOOD ORDERABLES Final Result Performing Organization Address [facility] [place] [address] * (ABNORMAL) Blood gas, arterial (05/21/2024 8:54 PM RIVET HOLE MACHINE OPERATOR) Pathologist [facility] pH, Art 7.45 7.35 - 7.45 PCO2, Arterial 52(H) 35 - 45 mmHg [facility] PO2, Arterial 63(L) 83 - 108 mmHg [facility] HCO3 Art (Calculated) 37(H) 20 - 30 mmol/L [facility] BE, art 10 mmol/L [facility] Comment: Interpretive Data No Reference Range Established Current Interpretive Data was last revised on 2017 O2 Sat Art (Measured) 92 90 - 95 % [facility] Blood 05/21/2024 8:54 PM RIVET HOLE MACHINE OPERATOR 05/21/2024 9:09 PM RIVET HOLE MACHINE OPERATOR Christiano Ko MD LAB BLOOD ORDERABLES Final Result Performing Organization Address [facility] [place] [address] * (ABNORMAL) Basic metabolic panel (05/21/2024 8:54 PM RIVET HOLE MACHINE OPERATOR) Pathologist [facility] Sodium 143 135 - 145 mmol/L Potassium, pl 3.5 3.3 - 4.9 mmol/L [facility] Chloride 101 97 - 110 mmol/L [facility] CO2 35(H) 22 - 32 mmol/L [facility] Anion gap 7 2 - 15 mmol/L [facility] BUN 19 6 - 25 mg/dL [facility] Creatinine 0.85 0.60 - 1.10 mg/dL [facility] Glucose 125 70 - 199 mg/dL [facility] Comment: Interpretive Data Fasting glucose >/= 126 mg/dl is diagnostic for diabetes. Fasting is defined as no caloric intake for at least 8 hours. Fasting glucose between 100 mg/dl to 125 mg/dl is diagnostic of prediabetes. In a patient with classic symptoms of hyperglycemia or hyperglycemic crisis, a random glucose >/= 200 mg/dl is diagnostic for diabetes. In the absence of unequivocal hyperglycemia, results should be confirmed by repeat testing. The classification and Diagnosis of Diabetes Diabetes Care 2021; 46: S19-S40. Current interpretive data was last revised 2022. Calcium 8.7 8.5 - 10.3 mg/dL [facility] Blood 05/21/2024 8:54 PM RIVET HOLE MACHINE OPERATOR 05/21/2024 9:16 PM RIVET HOLE MACHINE OPERATOR Christiano Ko MD LAB BLOOD ORDERABLES Final Result [facility] [place] [address] * XR Chest 1 View (05/21/2024 8:36 PM RIVET HOLE MACHINE OPERATOR) Anatomical Region Laterality Modality Body, Chest N/A Computed Radiogr aphy 05/22/2024 9:45 AM RIVET HOLE MACHINE OPERATOR Impressions 05/22/2024 10:11 AM RIVET HOLE MACHINE OPERATOR Comparison is made to radiograph dated 05/20/2024. A feeding tube extends below the level of the hemidiaphragm. The endotracheal tube has been removed. Small bilateral pleural effusions and associated atelectasis, not significant changed. Decreased mild pulmonary edema. No pneumothorax. Stable cardiomediastinal silhouette. Dictated by: Kevin Jimenez MD The radiology attending physician has personally reviewed this study, and had reviewed and/or edited this written report and agrees with it. Electronically signed by: Juan David Hogan M.D. Narrative 05/22/2024 10:11 AM RIVET HOLE MACHINE OPERATOR EXAMINATION: 1 view chest radiograph Procedure Note Juan David Hogan MD - 05/22/2024 EXAMINATION: 1 view chest radiograph IMPRESSION: Comparison is made to radiograph dated 05/20/2024. A feeding tube extends below the level of the hemidiaphragm. The endotracheal tube has been removed. Small bilateral pleural effusions and associated atelectasis, not significant changed. Decreased mild pulmonary edema. No pneumothorax. Stable cardiomediastinal silhouette. Dictated by: Kevin Jimenez MD The radiology attending physician has personally reviewed this study, and had reviewed and/or edited this written report and agrees with it. Electronically signed by: Juan David Hogan M.D. Yesenia HINOJOSA IMG XR PROCEDURES F inal Result * Critical Care (05/21/2024 8:00 PM RIVET HOLE MACHINE OPERATOR) Narrative Renay Weber MD - 05/21/2024 8:00 PM RIVET HOLE MACHINE OPERATOR Renay Weber MD 05/28/2024 11:57 PM Critical Care Performed by: Lynsey Otoole NP Authorized by: Lynsey Otoole NP CRITICAL CARE: Team: SICU BLUE Shift: PM Level of Billing: Critical Care My time spent with this patient was 85 minutes: Critical Provider Statement: I have seen and examined the patient on this day of service. I have reviewed and confirmed the history, physical exam, laboratory and radiologic data as documented in the signed ICU note. I have reviewed and discussed my treatment plan with the ICU team and other medical/home service consultant staff, making frequent assessments and decisions regarding this patient's complex medical care. Critical Care time was exclusive of time spent performing separately billed procedures, treating other patients, and teaching. This time was in addition to and separate from critical care provided by other practitioners in my group on this day of service. Critical Care was necessary to treat or prevent imminent or life-threatening deterioration of the following conditions: Acute pain/acute postoperative pain, Agitation requiring sedation and Encephalopathy/altered mental status Thrombocytopenia This time was spent by me doing the following: Serial bedside patient exams and Serial laboratory checks Active titration of continuous sedation Active and frequent reassessment of respiratory status and oxygen requirements and Non-invasive positive pressure ventilator management Glycemic control Active repletion of electrolytes I spent time reviewing and interpreting data from bedside monitors, laboratory results, and imaging, I spent time discussing the management of this critically ill patient with consultants and the medical staff and I spent time documenting in the medical record Lynsey Otoole NP IN CLINIC/BEDSI DE ORDERABLES Final Result * POCT glucose (05/21/2024 7:43 PM RIVET HOLE MACHINE OPERATOR) Glucose, POC 150 70 - 199 mg/dL Blood 05/21/2024 7:43 PM RIVET HOLE MACHINE OPERATOR 05/21/2024 7:43 PM RIVET HOLE MACHINE OPERATOR Christiano Ko MD LAB POCT ORDERABLES - DEVIC E Final Result Performing Organization Address [facility] de Phone Number [facility] Department [place] [address] * (ABNORMAL) Blood gas, arterial (05/21/2024 3:11 PM RIVET HOLE MACHINE OPERATOR) pH, Art 7.44 7.35 - 7.45 PCO2, Arterial 50(H) 35 - 45 mmHg [facility] PO2, Arterial 157(H) 83 - 108 mmHg [facility] HCO3 Art (Calculated) 35(H) 20 - 30 mmol/L [facility] BE, art 8 mmol/L [facility] Comment: Interpretive Data No Reference Range Established Current Interpretive Data was last revised on 2017 O2 Sat Art (Measured) 100(H) 90 - 95 % [facility] Blood 05/21/2024 3:11 PM RIVET HOLE MACHINE OPERATOR 05/21/2024 3:16 PM RIVET HOLE MACHINE OPERATOR Sebastian HINOJOSA LAB BLOOD ORDERABLES Fi nal Result [facility] [place] [address] * POCT glucose (05/21/2024 3:10 PM RIVET HOLE MACHINE OPERATOR) Glucose, POC 135 70 - 199 mg/dL Blood 05/21/2024 3:10 PM RIVET HOLE MACHINE OPERATOR 05/21/2024 3:10 PM RIVET HOLE MACHINE OPERATOR us Christiano Ko MD LAB POCT ORDERABLES - DEVIC E Final Result Performing Organization Address [facility] [place] [address] * POCT glucose (05/21/2024 11:14 AM RIVET HOLE MACHINE OPERATOR) Pathologist [facility] Glucose, POC 122 70 - 199 mg/dL Blood 05/21/2024 11:1 4 AM RIVET HOLE MACHINE OPERATOR 05/21/2024 11:14 AM RIVET HOLE MACHINE OPERATOR us Christiano Ko MD LAB POCT ORDERABLES - DEVIC E Final Result Performing Organization Address [facility] Co de Phone Number [facility] [place] [address] * (ABNORMAL) Thyroid Function [place] (05/21/2024 9:07 AM RIVET HOLE MACHINE OPERATOR) [facility] TSH 5.20(H) 0.30 - 4.20 mcIUnit/mL Blood 05/21/2024 9:07 AM RIVET HOLE MACHINE OPERATOR 05/21/2024 9:28 AM RIVET HOLE MACHINE OPERATOR us Sebastian HINOJOSA LAB BLOOD ORDERABLES Fi nal Result Performing Organization Address City/[facility]/ZIP Co de Phone Number [facility] [place] [address] * Triglycerides (05/21/2024 9:07 AM RIVET HOLE MACHINE OPERATOR) Triglycerides 139 <=149 mg/dL Comment: Interpretive Data Ages < or = 9 years Acceptable: <75 mg/dL Borderline high: 75-99 mg/dL High: >or= 100 mg/dL Ages 10 to 20 years Acceptable: <90 mg/dL Borderline high: 90-129 mg/dL High: >or= 130 mg/dL Ages > or = 20 years Desirable: <150 mg/dL Borderline high: 150-199 mg/dL High: 200-499 mg/dL Very high: >or= 499 mg/dL Literature References: 1. Expert Panel on Integrated Guidelines for Cardiovascular Health and Risk Reduction in Children and Adolescents. Pediatrics 2011;128:S213 2. NCEP Expert Panel. Circulation 2004;110:227 Current Interpretive Data was last revised on 2017. Blood 05/21/2024 9:07 AM RIVET HOLE MACHINE OPERATOR 05/21/2024 9:28 AM RIVET HOLE MACHINE OPERATOR Narrative [facility] 05/21/2024 9:56 AM RIVET HOLE MACHINE OPERATOR While on propofol infusion. us Preston HINOJOSA LAB BLOOD ORDER TEDDY Final Result Performing Organization Address City/[facility]/ZIP Co de Phone Number [facility] [place] [address] * T4, free (05/21/2024 9:07 AM RIVET HOLE MACHINE OPERATOR) [facility] Free T4 1.35 0.90 - 1.70 ng/dL Blood 05/21/2024 9:07 AM RIVET HOLE MACHINE OPERATOR 05/21/2024 9:28 AM RIVET HOLE MACHINE OPERATOR Narrative [facility] 05/21/2024 10:34 AM RIVET HOLE MACHINE OPERATOR This test was reflexed from a TSH result. us Sebastian HINOJOSA LAB BLOOD ORDERABLES Ed ited Result - Final [facility] Department [place] [address] * Ammonia (05/21/2024 9:07 AM RIVET HOLE MACHINE OPERATOR) Ammonia 27 <=50 mcmol/L Blood 05/21/2024 9:07 AM RIVET HOLE MACHINE OPERATOR 05/21/2024 9:29 AM RIVET HOLE MACHINE OPERATOR us Sebastian HINOJOSA LAB BLOOD ORDERABLES Fi nal Result Performing Organization Address [facility] de Phone Number [facility] [place] [address] * POCT glucose (05/21/2024 7:24 AM RIVET HOLE MACHINE OPERATOR) Glucose, POC 138 70 - 199 mg/dL Blood 05/21/2024 7:24 AM RIVET HOLE MACHINE OPERATOR 05/21/2024 7:24 AM RIVET HOLE MACHINE OPERATOR Christiano Ko MD LAB POCT ORDERABLES - DEVIC E Final Result Performing Organization Address [facility] Phone Number [facility] [place] [address] * Critical Care (05/21/2024 7:02 AM RIVET HOLE MACHINE OPERATOR) Narrative Earnestine Kelly MD - 05/21/2024 7:02 AM RIVET HOLE MACHINE OPERATOR Earnestine Kelly MD 05/22/2024 3:03 PM Critical Care Performed by: Sebastian Moody PA Authorized by: Sebastian Moody PA CRITICAL CARE: Team: SICU BLUE Shift: AM Level of Billing: Critical Care My time spent with this patient was 120 minutes: Critical Provider Statement: I have seen and examined the patient on this day of service. I have reviewed and confirmed the history, physical exam, laboratory and radiologic data as documented in the signed ICU note. I have reviewed and discussed my treatment plan with the ICU team and other medical/home service consultant staff, making frequent assessments and decisions regarding this patient's complex medical care. Critical Care time was exclusive of time spent performing separately billed procedures, treating other patients, and teaching. This time was in addition to and separate from critical care provided by other practitioners in my group on this day of service. Critical Care was necessary to treat or prevent imminent or life-threatening deterioration of the following conditions: I spent time documenting in the medical record, I spent time discussing the management of this critically ill patient with consultants and the medical staff and I spent time reviewing and interpreting data from bedside monitors, laboratory results, and imaging us Sebastian HINOJOSA IN CLINIC/BEDSIDE ORDER TEDDY Final Result * POCT glucose (05/21/2024 3:47 AM RIVET HOLE MACHINE OPERATOR) Glucose, POC 161 70 - 199 mg/dL Blood 05/21/2024 3:47 AM RIVET HOLE MACHINE OPERATOR 05/21/2024 3:47 AM RIVET HOLE MACHINE OPERATOR us Christiano Ko MD LAB POCT ORDERABLES - DEVIC E Final Result [facility] Department [place] [address] * XR Chest 1 View (05/21/2024 12:12 AM RIVET HOLE MACHINE OPERATOR) Anatomical Region Laterality Modality Body, Chest N/A Computed Radiogr aphy 05/21/2024 8:02 AM RIVET HOLE MACHINE OPERATOR Impressions 05/21/2024 8:02 AM RIVET HOLE MACHINE OPERATOR Comparison is made to radiograph of 05/20/2024 at 6:01 AM Anteroposterior chest radiograph demonstrates moderately severe pulmonary edema which appears worse than the prior study. Small layering bilateral pleural effusions and bibasilar atelectasis, left greater than right, are unchanged. No pneumothorax. Stable mild to moderate enlargement the cardiac silhouette. The tip of the endotracheal tube projects 9 mm above the janis. The feeding tube is visible to the lower esophagus and beyond that not clearly visible due to underpenetration. Electronically signed by: Nestor Seth M.D. Narrative 05/21/2024 8:02 AM RIVET HOLE MACHINE OPERATOR EXAMINATION: 1 view chest radiograph Procedure Note Nestor Seth MD - 05/21/2024 EXAMINATION: 1 view chest radiograph IMPRESSION: Comparison is made to radiograph of 05/20/2024 at 6:01 AM Anteroposterior chest radiograph demonstrates moderately severe pulmonary edema which appears worse than the prior study. Small layering bilateral pleural effusions and bibasilar atelectasis, left greater than right, are unchanged. No pneumothorax. Stable mild to moderate enlargement the cardiac silhouette. The tip of the endotracheal tube projects 9 mm above the janis. The feeding tube is visible to the lower esophagus and beyond that not clearly visible due to underpenetration. Electronically signed by: Nestor Seth M.D. Yesenia HINOJOSA IMG XR PROCEDURES F inal Result * POCT glucose (05/20/2024 11:29 PM RIVET HOLE MACHINE OPERATOR) Glucose, POC 140 70 - 199 mg/dL Blood 05/20/2024 11:2 9 PM RIVET HOLE MACHINE OPERATOR 05/20/2024 11:29 PM RIVET HOLE MACHINE OPERATOR Christiano Ko MD LAB POCT ORDERABLES - DEVIC E Final Result [facility] Department [place] [address] * XR Abdomen 1 View AP (05/20/2024 8:05 PM RIVET HOLE MACHINE OPERATOR) Anatomical Region Laterality Modality Body, Abdomen N/A Computed Radiogr aphy 05/21/2024 8:36 AM RIVET HOLE MACHINE OPERATOR Impressions 05/21/2024 8:36 AM RIVET HOLE MACHINE OPERATOR An enteric tube tip terminates in the distal gastric body, with the stylette in place. Relative paucity of bowel gas in the imaged upper abdomen. Dictated by: Kvng Pan MD The radiology attending physician has personally reviewed this study, and had reviewed and/or edited this written report and agrees with it. Electronically signed by: Renetta Farr M.D. Narrative 05/21/2024 8:36 AM RIVET HOLE MACHINE OPERATOR EXAMINATION: Abdomen, one view. HISTORY: Check tube placement. COMPARISON: None Procedure Note Renetta Farr MD - 05/21/2024 EXAMINATION: Abdomen, one view. HISTORY: Check tube placement. COMPARISON: None IMPRESSION: An enteric tube tip terminates in the distal gastric body, with the stylette in place. Relative paucity of bowel gas in the imaged upper abdomen. Dictated by: Kvng Pan MD The radiology attending physician has personally reviewed this study, and had reviewed and/or edited this written report and agrees with it. Electronically signed by: Renetta Farr M.D. Yesenia HINOJOSA IMG XR PROCEDURES F inal Result * eGFR (05/20/2024 7:44 PM RIVET HOLE MACHINE OPERATOR) eGFR 75 >=60 mL/min/1. 73 m2 Comment: Interpretive Data Reference Interval Normal >/= 90 mL/min/1.73m2 Mildly decreased* 60 - 89 mL/min/1.73m2 Mildly to moderately decreased 45 - 59 mL/min/1.73m2 Moderately to severely decreased 30 - 44 mL/min/1.73m2 Severely decreased 15 - 29 mL/min/1.73m2 Kidney Failure < 15 mL/min/1.73m2 *Relative to young adult level Estimated glomerular filtration rate is determined by the 2020 CKD-EPI equation recommended by the National Kidney Foundation (A Unifying Approach to GFR Estimation: Recommendations of the NKF-ASK Task Force on Reassessing the Inclusion of Race in Diagnosing Kidney Disease, JASN 202). The CKD-EPI equation should not be used for patients with unstable renal function and has not been validated in children and those over 70. Current interpretive data was last reviewed 2021. Blood 05/20/2024 7:44 PM RIVET HOLE MACHINE OPERATOR 05/20/2024 8:03 PM RIVET HOLE MACHINE OPERATOR Christiano Ko MD LAB BLOOD ORDERABLES Final Result [facility] Department [place] [address] * (ABNORMAL) CBC without differential (05/20/2024 7:44 PM RIVET HOLE MACHINE OPERATOR) Pathologist [facility] WBC 7.1 3.8 - 9.9 K/cumm Hgb 9.9(L) 11.9 - 15.5 g/dL [facility] Hct 31.5(L) 35.6 - 45.5 % [facility] Plt 157 150 - 400 K/cumm [facility] MPV 10.6 9.1 - 12.3 fL [facility] RBC 3.40(L) 3.90 - 5.20 M/cumm [facility] MCV 92.6 81.3 - 96.4 fL [facility] MCH 29.1 27.1 - 33.3 pg [facility] MCHC 31.4(L) 32.3 - 35.7 g/dL [facility] RDW CV 14.7 11.1 - 14.9 % [facility] RDW SD 50.2(H) 35.7 - 48.1 fL [facility] NRBC abs 0.00 0.00 - 0.01 K/cumm [facility] Blood 05/20/2024 7:44 PM RIVET HOLE MACHINE OPERATOR 05/20/2024 7:56 PM RIVET HOLE MACHINE OPERATOR Christiano Ko MD LAB BLOOD ORDERABLES Final Result Performing Organization Address City/[facility]/ZIP Co de Phone Number [facility] [place] [address] * Phosphorus (05/20/2024 7:44 PM RIVET HOLE MACHINE OPERATOR) [facility] Phosphorus, pl 3.9 2.3 - 4.5 mg/dL Blood 05/20/2024 7:44 PM RIVET HOLE MACHINE OPERATOR 05/20/2024 7:56 PM RIVET HOLE MACHINE OPERATOR Christiano Ko MD LAB BLOOD ORDERABLES Final Result Performing Organization Address [facility]/ZIP Co de Phone Number [facility] [place] [address] * Magnesium (05/20/2024 7:44 PM RIVET HOLE MACHINE OPERATOR) [facility] Magnesium 2.3 1.4 - 2.5 mg/dL Blood 05/20/2024 7:44 PM RIVET HOLE MACHINE OPERATOR 05/20/2024 7:56 PM RIVET HOLE MACHINE OPERATOR Christiano Ko MD LAB BLOOD ORDERABLES Final Result Performing Organization Address City/[facility] Co de Phone Number [facility] [place] [address] * (ABNORMAL) Basic metabolic panel (05/20/2024 7:44 PM RIVET HOLE MACHINE OPERATOR) [facility] Sodium 142 135 - 145 mmol/L Potassium, pl 4.0 3.3 - 4.9 mmol/L [facility] Chloride 98 97 - 110 mmol/L [facility] CO2 36(H) 22 - 32 mmol/L [facility] Anion gap 8 2 - 15 mmol/L [facility] BUN 18 6 - 25 mg/dL [facility] Creatinine 0.81 0.60 - 1.10 mg/dL [facility] Glucose 139 70 - 199 mg/dL [facility] Comment: Interpretive Data Fasting glucose >/= 126 mg/dl is diagnostic for diabetes. Fasting is defined as no caloric intake for at least 8 hours. Fasting glucose between 100 mg/dl to 125 mg/dl is diagnostic of prediabetes. In a patient with classic symptoms of hyperglycemia or hyperglycemic crisis, a random glucose >/= 200 mg/dl is diagnostic for diabetes. In the absence of unequivocal hyperglycemia, results should be confirmed by repeat testing. The classification and Diagnosis of Diabetes Diabetes Care 2021; 46: S19-S40. Current interpretive data was last revised 2022. Calcium 8.7 8.5 - 10.3 mg/dL [facility] Blood 05/20/2024 7:44 PM RIVET HOLE MACHINE OPERATOR 05/20/2024 7:56 PM RIVET HOLE MACHINE OPERATOR Christiano Ko MD LAB BLOOD ORDERABLES Final Result Performing Organization Address [facility]/ZIP Co de Phone Number [facility] [place] [address] * POCT glucose (05/20/2024 7:36 PM RIVET HOLE MACHINE OPERATOR) [facility] Signature Glucose, POC 149 70 - 199 mg/dL Blood 05/20/2024 7:36 PM RIVET HOLE MACHINE OPERATOR 05/20/2024 7:36 PM RIVET HOLE MACHINE OPERATOR us Christiano Ko MD LAB POCT ORDERABLES - DEVIC E Final Result [facility] Department [place] [address] * Critical Care (05/20/2024 6:22 PM RIVET HOLE MACHINE OPERATOR) Narrative Renay Weber MD - 05/20/2024 6:22 PM RIVET HOLE MACHINE OPERATOR Renay Weber MD 05/28/2024 11:45 PM Critical Care Performed by: Yesenia Mora PA Authorized by: Yesenia Mora PA CRITICAL CARE: Team: SICU BLUE Shift: PM Level of Billing: Critical Care My time spent with this patient was 80 minutes: Critical Provider Statement: I have seen and examined the patient on this day of service. I have reviewed and confirmed the history, physical exam, laboratory and radiologic data as documented in the signed ICU note. I have reviewed and discussed my treatment plan with the ICU team and other medical/home service consultant staff, making frequent assessments and decisions regarding this patient's complex medical care. Critical Care time was exclusive of time spent performing separately billed procedures, treating other patients, and teaching. This time was in addition to and separate from critical care provided by other practitioners in my group on this day of service. Critical Care was necessary to treat or prevent imminent or life-threatening deterioration of the following conditions: I spent time reviewing and interpreting data from bedside monitors, laboratory results, and imaging, I spent time discussing the management of this critically ill patient with consultants and the medical staff and I spent time documenting in the medical record us Yesenia HINOJOSA IN CLINIC/BEDSIDE O RDERABLES Final Result * POCT glucose (05/20/2024 3:33 PM RIVET HOLE MACHINE OPERATOR) Glucose, POC 156 70 - 199 mg/dL Blood 05/20/2024 3:33 PM RIVET HOLE MACHINE OPERATOR 05/20/2024 3:33 PM RIVET HOLE MACHINE OPERATOR Christiano Ko MD LAB POCT ORDERABLES - DEVIC E Final Result Performing Organization Address [facility] Co de Phone Number [facility] [place] [address] * POCT glucose (05/20/2024 11:36 AM RIVET HOLE MACHINE OPERATOR) Glucose, POC 166 70 - 199 mg/dL Blood 05/20/2024 11:3 6 AM RIVET HOLE MACHINE OPERATOR 05/20/2024 11:36 AM RIVET HOLE MACHINE OPERATOR Christiano Ko MD LAB POCT ORDERABLES - DEVIC E Final Result Performing Organization Address [facility] [place] [address] * POCT glucose (05/20/2024 7:28 AM RIVET HOLE MACHINE OPERATOR) Glucose, POC 167 70 - 199 mg/dL Blood 05/20/2024 7:28 AM RIVET HOLE MACHINE OPERATOR 05/20/2024 7:28 AM RIVET HOLE MACHINE OPERATOR Christiano Ko MD LAB POCT ORDERABLES - DEVIC E Final Result Performing Organization Address City/[facility] [place] [address] * Critical Care (05/20/2024 7:27 AM RIVET HOLE MACHINE OPERATOR) Narrative Earnestine Kelly MD - 05/20/2024 7:27 AM RIVET HOLE MACHINE OPERATOR Earnestine Kelly MD 05/22/2024 3:02 PM Critical Care Performed by: Sebastian Moody PA Authorized by: Sebastian Moody PA CRITICAL CARE: Team: SICU BLUE Shift: AM Level of Billing: Critical Care My time spent with this patient was 90 minutes: Critical Provider Statement: I have seen and examined the patient on this day of service. I have reviewed and confirmed the history, physical exam, laboratory and radiologic data as documented in the signed ICU note. I have reviewed and discussed my treatment plan with the ICU team and other medical/home service consultant staff, making frequent assessments and decisions regarding this patient's complex medical care. Critical Care time was exclusive of time spent performing separately billed procedures, treating other patients, and teaching. This time was in addition to and separate from critical care provided by other practitioners in my group on this day of service. Critical Care was necessary to treat or prevent imminent or life-threatening deterioration of the following conditions: I spent time documenting in the medical record, I spent time discussing the management of this critically ill patient with consultants and the medical staff and I spent time reviewing and interpreting data from bedside monitors, laboratory results, and imaging us Sebastian HINOJOSA IN CLINIC/BEDSIDE ORDER TEDDY Final Result * XR Chest 1 View (05/20/2024 6:25 AM RIVET HOLE MACHINE OPERATOR) Anatomical Region Laterality Modality Body, Chest N/A Computed Radiogr aphy 05/20/2024 9:29 AM RIVET HOLE MACHINE OPERATOR Impressions 05/20/2024 9:29 AM RIVET HOLE MACHINE OPERATOR The current study is compared with the prior radiograph dated 05/19/2024. The endotracheal tube tip is 1.5 cm above the janis. Stable small left pleural effusion with underlying left lower lobe collapse. Small right pleural effusion with mild atelectasis is unchanged. Stable mild pulmonary edema. No pneumothorax. Stable cardiomegaly. Electronically signed by: Matt Willis MD, PHD Narrative 05/20/2024 9:29 AM RIVET HOLE MACHINE OPERATOR EXAMINATION: 1 view chest radiograph Procedure Note Matt Willis MD PhD - 05/20/2024 EXAMINATION: 1 view chest radiograph IMPRESSION: The current study is compared with the prior radiograph dated 05/19/2024. The endotracheal tube tip is 1.5 cm above the janis. Stable small left pleural effusion with underlying left lower lobe collapse. Small right pleural effusion with mild atelectasis is unchanged. Stable mild pulmonary edema. No pneumothorax. Stable cardiomegaly. Electronically signed by: Matt Willis MD, PHD Yesenia HINOJOSA IMG XR PROCEDURES F inal Result * POCT glucose (05/20/2024 3:47 AM RIVET HOLE MACHINE OPERATOR) Glucose, POC 157 70 - 199 mg/dL Blood 05/20/2024 3:47 AM RIVET HOLE MACHINE OPERATOR 05/20/2024 3:47 AM RIVET HOLE MACHINE OPERATOR Christiano Ko MD LAB POCT ORDERABLES - DEVIC E Final Result Performing Organization Address [facility] de Phone Number [facility] Department [place] [address] * (ABNORMAL) Blood gas, arterial (05/20/2024 3:01 AM RIVET HOLE MACHINE OPERATOR) [facility] pH, Art 7.48(H) 7.35 - 7.45 PCO2, Arterial 48(H) 35 - 45 mmHg [facility] PO2, Arterial 100 83 - 108 mmHg [facility] HCO3 Art (Calculated) 37(H) 20 - 30 mmol/L [facility] BE, art 11 mmol/L [facility] Comment: Interpretive Data No Reference Range Established Current Interpretive Data was last revised on 2017 O2 Sat Art (Measured) 98(H) 90 - 95 % [facility] Blood 05/20/2024 3:01 AM RIVET HOLE MACHINE OPERATOR 05/20/2024 3:12 AM RIVET HOLE MACHINE OPERATOR Yesenia HINOJOSA LAB BLOOD ORDERABLE S Final Result Performing Organization Address [facility] de Phone Number [facility] Department [place] [address] * POCT glucose (05/19/2024 11:34 PM RIVET HOLE MACHINE OPERATOR) [facility] Glucose, POC 152 70 - 199 mg/dL Blood 05/19/2024 11:3 4 PM RIVET HOLE MACHINE OPERATOR 05/19/2024 11:34 PM RIVET HOLE MACHINE OPERATOR Christiano Ko MD LAB POCT ORDERABLES - DEVIC E Final Result Performing Organization Address [facility] de Phone Number [facility] [place] [address] * eGFR (05/19/2024 9:35 PM RIVET HOLE MACHINE OPERATOR) [facility] eGFR 79 >=60 mL/min/1. 73 m2 Comment: Interpretive Data Reference Interval Normal >/= 90 mL/min/1.73m2 Mildly decreased* 60 - 89 mL/min/1.73m2 Mildly to moderately decreased 45 - 59 mL/min/1.73m2 Moderately to severely decreased 30 - 44 mL/min/1.73m2 Severely decreased 15 - 29 mL/min/1.73m2 Kidney Failure < 15 mL/min/1.73m2 *Relative to young adult level Estimated glomerular filtration rate is determined by the 2020 CKD-EPI equation recommended by the National Kidney Foundation (A Unifying Approach to GFR Estimation: Recommendations of the NKF-ASK Task Force on Reassessing the Inclusion of Race in Diagnosing Kidney Disease, JASN 2020). The CKD-EPI equation should not be used for patients with unstable renal function and has not been validated in children and those over 70. Current interpretive data was last reviewed 2021. Blood 05/19/2024 9:35 PM RIVET HOLE MACHINE OPERATOR 05/19/2024 9:49 PM RIVET HOLE MACHINE OPERATOR Christiano Ko MD LAB BLOOD ORDERABLES Final Result Performing Organization Address [facility] Co de Phone Number [facility] Department [place] [address] * (ABNORMAL) CBC without differential (05/19/2024 9:35 PM RIVET HOLE MACHINE OPERATOR) [facility] WBC 5.7 3.8 - 9.9 K/cumm Hgb 9.4(L) 11.9 - 15.5 g/dL [facility] Hct 30.1(L) 35.6 - 45.5 % [facility] Plt 146(L) 150 - 400 K/cumm [facility] MPV 10.2 9.1 - 12.3 fL [facility] RBC 3.21(L) 3.90 - 5.20 M/cumm [facility] MCV 93.8 81.3 - 96.4 fL [facility] Comment:MCV delta due to tasha gical procedure. MCH 29.3 27.1 - 33.3 pg [facility] MCHC 31.2(L) 32.3 - 35.7 g/dL [facility] RDW CV 14.5 11.1 - 14.9 % [facility] RDW SD 49.4(H) 35.7 - 48.1 fL [facility] NRBC abs 0.00 0.00 - 0.01 K/cumm [facility] Blood 05/19/2024 9:35 PM RIVET HOLE MACHINE OPERATOR 05/19/2024 9:50 PM RIVET HOLE MACHINE OPERATOR Christiano Ko MD LAB BLOOD ORDERABLES Final Result Performing Organization Address City/[facility] Co de Phone Number [facility] Department [place] [address] * Phosphorus (05/19/2024 9:35 PM RIVET HOLE MACHINE OPERATOR) [facility] Phosphorus, pl 3.4 2.3 - 4.5 mg/dL Blood 05/19/2024 9:35 PM RIVET HOLE MACHINE OPERATOR 05/19/2024 9:47 PM RIVET HOLE MACHINE OPERATOR Christiano Ko MD LAB BLOOD ORDERABLES Final Result Performing Organization Address City/[facility] Co de Phone Number [facility] [place] [address] * Magnesium (05/19/2024 9:35 PM RIVET HOLE MACHINE OPERATOR) Magnesium 2.2 1.4 - 2.5 mg/dL Blood 05/19/2024 9:35 PM RIVET HOLE MACHINE OPERATOR 05/19/2024 9:47 PM RIVET HOLE MACHINE OPERATOR us Christiano Ko MD LAB BLOOD ORDERABLES Final Result Performing Organization Address [facility] de Phone Number [facility] [place] [address] * (ABNORMAL) Blood gas, arterial (05/19/2024 9:35 PM RIVET HOLE MACHINE OPERATOR) Pathologist [facility] pH, Art 7.48(H) 7.35 - 7.45 PCO2, Arterial 50(H) 35 - 45 mmHg [facility] PO2, Arterial 64(L) 83 - 108 mmHg [facility] HCO3 Art (Calculated) 38(H) 20 - 30 mmol/L [facility] BE, art 12 mmol/L [facility] Comment: Interpretive Data No Reference Range Established Current Interpretive Data was last revised on 2017 O2 Sat Art (Measured) 94 90 - 95 % [facility] Blood 05/19/2024 9:35 PM RIVET HOLE MACHINE OPERATOR 05/19/2024 9:45 PM RIVET HOLE MACHINE OPERATOR us Preston HINOJOSA LAB BLOOD ORDER TEDDY Final Result Performing Organization Address [facility] de Phone Number [facility] [place] [address] * (ABNORMAL) Basic metabolic panel (05/19/2024 9:35 PM RIVET HOLE MACHINE OPERATOR) Pathologist [facility] Sodium 144 135 - 145 mmol/L Potassium, pl 4.2 3.3 - 4.9 mmol/L [facility] Chloride 99 97 - 110 mmol/L [facility] CO2 38(H) 22 - 32 mmol/L [facility] Anion gap 7 2 - 15 mmol/L [facility] BUN 15 6 - 25 mg/dL [facility] Creatinine 0.78 0.60 - 1.10 mg/dL [facility] Glucose 143 70 - 199 mg/dL [facility] Comment: Interpretive Data Fasting glucose >/= 126 mg/dl is diagnostic for diabetes. Fasting is defined as no caloric intake for at least 8 hours. Fasting glucose between 100 mg/dl to 125 mg/dl is diagnostic of prediabetes. In a patient with classic symptoms of hyperglycemia or hyperglycemic crisis, a random glucose >/= 200 mg/dl is diagnostic for diabetes. In the absence of unequivocal hyperglycemia, results should be confirmed by repeat testing. The classification and Diagnosis of Diabetes Diabetes Care 2021; 46: S19-S40. Current interpretive data was last revised 2022. Calcium 8.9 8.5 - 10.3 mg/dL [facility] Blood 05/19/2024 9:35 PM RIVET HOLE MACHINE OPERATOR 05/19/2024 9:47 PM RIVET HOLE MACHINE OPERATOR Christiano Ko MD LAB BLOOD ORDERABLES Final Result [facility] Department [place] [address] * Critical Care (05/19/2024 8:59 PM RIVET HOLE MACHINE OPERATOR) Narrative Renay Weber MD - 05/19/2024 8:59 PM RIVET HOLE MACHINE OPERATOR Renay Weber MD 05/28/2024 11:45 PM Critical Care Performed by: Yesenia Mora PA Authorized by: Yesenia Mora PA CRITICAL CARE: Team: SICU BLUE Shift: PM Level of Billing: Critical Care My time spent with this patient was 70 minutes: Critical Provider Statement: I have seen and examined the patient on this day of service. I have reviewed and confirmed the history, physical exam, laboratory and radiologic data as documented in the signed ICU note. I have reviewed and discussed my treatment plan with the ICU team and other medical/home service consultant staff, making frequent assessments and decisions regarding this patient's complex medical care. Critical Care time was exclusive of time spent performing separately billed procedures, treating other patients, and teaching. This time was in addition to and separate from critical care provided by other practitioners in my group on this day of service. Critical Care was necessary to treat or prevent imminent or life-threatening deterioration of the following conditions: I spent time reviewing and interpreting data from bedside monitors, laboratory results, and imaging, I spent time discussing the management of this critically ill patient with consultants and the medical staff and I spent time documenting in the medical record us Yesenia HINOJOSA IN CLINIC/BEDSIDE O RDERABLES Final Result * POCT glucose (05/19/2024 7:36 PM RIVET HOLE MACHINE OPERATOR) Glucose, POC 153 70 - 199 mg/dL Blood 05/19/2024 7:36 PM RIVET HOLE MACHINE OPERATOR 05/19/2024 7:36 PM RIVET HOLE MACHINE OPERATOR Christiano Ko MD LAB POCT ORDERABLES - DEVIC E Final Result Performing Organization Address [facility] Co de Phone Number [facility] Department [place] [address] * POCT glucose (05/19/2024 3:43 PM RIVET HOLE MACHINE OPERATOR) Glucose, POC 140 70 - 199 mg/dL Blood 05/19/2024 3:43 PM RIVET HOLE MACHINE OPERATOR 05/19/2024 3:43 PM RIVET HOLE MACHINE OPERATOR Christiano Ko MD LAB POCT ORDERABLES - DEVIC E Final Result Performing Organization Address [facility] Co de Phone Number [facility] Department [place] [address] * XR Chest 1 View (05/19/2024 2:08 PM RIVET HOLE MACHINE OPERATOR) Anatomical Region Laterality Modality Body, Chest N/A Computed Radiogr aphy 05/19/2024 2:31 PM RIVET HOLE MACHINE OPERATOR Impressions 05/19/2024 3:25 PM RIVET HOLE MACHINE OPERATOR Comparison is made to radiograph dated 05/19/2024. Interval placement of endotracheal tube with tip 6 cm above the level of the janis. Small lung volumes. Mild bilateral interstitial opacities likely representing mild pulmonary edema. Small left pleural effusion and associated atelectasis is not significantly changed. Increasing small right pleural effusion. No pneumothorax. Stable cardiac mediastinal silhouette. 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 Dictated by: Kevin Jimenez MD The radiology attending physician has personally reviewed this study, and had reviewed and/or edited this written report and agrees with it. Electronically signed by: Rajiv Redman M.D. Narrative 05/19/2024 3:25 PM RIVET HOLE MACHINE OPERATOR EXAMINATION: 1 view chest radiograph Procedure Note Rajiv Redman MD - 05/19/2024 EXAMINATION: 1 view chest radiograph IMPRESSION: Comparison is made to radiograph dated 05/19/2024. Interval placement of endotracheal tube with tip 6 cm above the level of the janis. Small lung volumes. Mild bilateral interstitial opacities likely representing mild pulmonary edema. Small left pleural effusion and associated atelectasis is not significantly changed. Increasing small right pleural effusion. No pneumothorax. Stable cardiac mediastinal silhouette. 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 Dictated by: Kevin Jimenez MD The radiology attending physician has personally reviewed this study, and had reviewed and/or edited this written report and agrees with it. Electronically signed by: Rajiv Redman M.D. us Preston HINOJOSA IMG XR PROCEDUR ES Final Result * POCT glucose (05/19/2024 12:49 PM RIVET HOLE MACHINE OPERATOR) [facility] Glucose, POC 140 70 - 199 mg/dL Blood 05/19/2024 12:4 9 PM RIVET HOLE MACHINE OPERATOR 05/19/2024 12:49 PM RIVET HOLE MACHINE OPERATOR us Christiano Ko MD LAB POCT ORDERABLES - DEVIC E Final Result [facility] [place] [address] * eGFR (05/19/2024 12:45 PM RIVET HOLE MACHINE OPERATOR) [facility] eGFR 85 >=60 mL/min/1. 73 m2 Comment: Interpretive Data Reference Interval Normal >/= 90 mL/min/1.73m2 Mildly decreased* 60 - 89 mL/min/1.73m2 Mildly to moderately decreased 45 - 59 mL/min/1.73m2 Moderately to severely decreased 30 - 44 mL/min/1.73m2 Severely decreased 15 - 29 mL/min/1.73m2 Kidney Failure < 15 mL/min/1.73m2 *Relative to young adult level Estimated glomerular filtration rate is determined by the 2020 CKD-EPI equation recommended by the National Kidney Foundation (A Unifying Approach to GFR Estimation: Recommendations of the NKF-ASK Task Force on Reassessing the Inclusion of Race in Diagnosing Kidney Disease, JASN 2020). The CKD-EPI equation should not be used for patients with unstable renal function and has not been validated in children and those over 70. Current interpretive data was last reviewed 2021. Blood 05/19/2024 12:4 5 PM RIVET HOLE MACHINE OPERATOR 05/19/2024 12:54 PM RIVET HOLE MACHINE OPERATOR us Preston HINOJOSA LAB BLOOD ORDER TEDDY Final Result [facility] [place] [address] * (ABNORMAL) CBC without differential (05/19/2024 12:45 PM RIVET HOLE MACHINE OPERATOR) WBC 7.1 3.8 - 9.9 K/cumm Hgb 8.9(L) 11.9 - 15.5 g/dL [facility] Hct 29.2(L) 35.6 - 45.5 % [facility] Plt 136(L) 150 - 400 K/cumm [facility] MPV 10.3 9.1 - 12.3 fL [facility] RBC 2.94(L) 3.90 - 5.20 M/cumm [facility] MCV 99.3(H) 81.3 - 96.4 fL [facility] MCH 30.3 27.1 - 33.3 pg [facility] MCHC 30.5(L) 32.3 - 35.7 g/dL [facility] RDW CV 14.5 11.1 - 14.9 % [facility] RDW SD 51.8(H) 35.7 - 48.1 fL [facility] NRBC abs 0.00 0.00 - 0.01 K/cumm [facility] Blood 05/19/2024 12:4 5 PM RIVET HOLE MACHINE OPERATOR 05/19/2024 12:54 PM RIVET HOLE MACHINE OPERATOR Preston HINOJOSA LAB BLOOD [place] [address] * Phosphorus (05/19/2024 12:45 PM RIVET HOLE MACHINE OPERATOR) Phosphorus, pl 2.4 2.3 - 4.5 mg/dL Blood 05/19/2024 12:4 5 PM RIVET HOLE MACHINE OPERATOR 05/19/2024 12:54 PM RIVET HOLE MACHINE OPERATOR Presotn HINOJOSA LAB BLOOD ORDER TEDDY Final Result Performing Organization Address City/[facility]/ZIP Co de Phone Number [facility] [place] [address] * Magnesium (05/19/2024 12:45 PM RIVET HOLE MACHINE OPERATOR) Magnesium 2.2 1.4 - 2.5 mg/dL Blood 05/19/2024 12:4 5 PM RIVET HOLE MACHINE OPERATOR 05/19/2024 12:54 PM RIVET HOLE MACHINE OPERATOR Preston HINOJOSA LAB BLOOD ORDER TEDDY Final Result Performing Organization Address City/[facility]/ZIP Co de Phone Number [facility] [place] [address] * (ABNORMAL) Blood gas, arterial (05/19/2024 12:45 PM RIVET HOLE MACHINE OPERATOR) pH, Art 7.43 7.35 - 7.45 PCO2, Arterial 52(H) 35 - 45 mmHg [facility] PO2, Arterial 147(H) 83 - 108 mmHg [facility] HCO3 Art (Calculated) 36(H) 20 - 30 mmol/L [facility] BE, art 9 mmol/L [facility] Comment: Interpretive Data No Reference Range Established Current Interpretive Data was last revised on 2017 O2 Sat Art (Measured) 100(H) 90 - 95 % [facility] Blood 05/19/2024 12:4 5 PM RIVET HOLE MACHINE OPERATOR 05/19/2024 12:50 PM RIVET HOLE MACHINE OPERATOR us Preston HINOJOSA LAB BLOOD ORDER TEDDY Final Result [facility] Department [place] [address] * (ABNORMAL) Basic metabolic panel (05/19/2024 12:45 PM RIVET HOLE MACHINE OPERATOR) Pathologist [facility] Sodium 142 135 - 145 mmol/L Potassium, pl 4.2 3.3 - 4.9 mmol/L [facility] Chloride 99 97 - 110 mmol/L [facility] CO2 35(H) 22 - 32 mmol/L [facility] Anion gap 8 2 - 15 mmol/L [facility] BUN 14 6 - 25 mg/dL [facility] Creatinine 0.73 0.60 - 1.10 mg/dL [facility] Glucose 134 70 - 199 mg/dL [facility] Comment: Interpretive Data Fasting glucose >/= 126 mg/dl is diagnostic for diabetes. Fasting is defined as no caloric intake for at least 8 hours. Fasting glucose between 100 mg/dl to 125 mg/dl is diagnostic of prediabetes. In a patient with classic symptoms of hyperglycemia or hyperglycemic crisis, a random glucose >/= 200 mg/dl is diagnostic for diabetes. In the absence of unequivocal hyperglycemia, results should be confirmed by repeat testing. The classification and Diagnosis of Diabetes Diabetes Care 202; 46: S19-S40. Current interpretive data was last revised 2022. Calcium 8.6 8.5 - 10.3 mg/dL [facility] Blood 05/19/2024 12:4 5 PM RIVET HOLE MACHINE OPERATOR 05/19/2024 12:54 PM RIVET HOLE MACHINE OPERATOR us Preston HINOJOSA LAB BLOOD ORDER TEDDY Final Result Performing Organization Address City/[facility]/ZIP Co de Phone Number [facility] Department [place] [address] * FL Fluoroscopy < 1 Hour (05/19/2024 11:22 AM RIVET HOLE MACHINE OPERATOR) Narrative [facility] - 05/19/2024 11:23 AM RIVET HOLE MACHINE OPERATOR The images from this study are not interpreted by Radiology. Please refer to the physician's procedure / OR operative note. us Annemarie Lea MD IMG FLUOROSCOPY PROCEDURES Final Result Performing Organization Address City/[facility]/ZIP Co de Phone Number [email or web address] * (ABNORMAL) POC Blood Gas and Chemistries, Arterial - (05/19/2024 10:38 AM RIVET HOLE MACHINE OPERATOR) pH, Art POC 7.50(H) 7.35 - 7.45 pCO2, Art POC 51(H) 35 - 45 mmHg [facility] pO2, Art POC 68(L) 83 - 108 mmHg [facility] Na, POC 140 135 - 145 mmol/L [facility] K POC 4.1 3.3 - 4.9 mmol/L [facility] Comment: Interpretive Data Not all point of care methods assess for hemolysis. Confirm with instrument and retest K+ if not consistent with clinical signs and symptoms. Current Interpretive Data was last revised on 2023. Cl, POC 99 97 - 110 mmol/L [facility] Ionized Ca, POC 4.69 4.50 - 5.10 mg/dL [facility] Glucose, POC 141 70 - 199 mg/dL [facility] Lactate, POC 1.0 0.7 - 2.0 mmol/L [facility] SO2 (katie) arterial 98(H) 90 - 95 % [facility] Base excess, POC 14.9 mmol/L [facility] Hct, POC 28.0(L) 36.3 - 45.3 % [facility] Total Hb, POC 9.2(L) 11.9 - 15.5 g/dL [facility] Blood 05/19/2024 10:3 8 AM RIVET HOLE MACHINE OPERATOR 05/19/2024 10:38 AM RIVET HOLE MACHINE OPERATOR Christiano Ko MD LAB POCT ORDERABLES - DEVIC E Final Result [facility] Department [place] [address] * AR AN PROCEDURE PLACEHOLDER (05/19/2024 9:51 AM RIVET HOLE MACHINE OPERATOR) Narrative Flako Parekh CRNA - 05/19/2024 9:51 AM RIVET HOLE MACHINE OPERATOR Flako Parekh CRNA 05/19/2024 9:52 AM Arterial Line Patient location: OR End time: 05/19/2024 8:30 AM Indication: continuous blood pressure monitoring and blood sampling needed Staff: Supervising provider: Mag Villatoro MD Placed by: CAPACITOR TESTER: Flako Parekh CRNA Procedure prep: Prep solution: chlorhexadine/alcohol Prep: provider hat/mask, sterile gloves and sterile drape Skin infiltrated with lidocaine 1%: yes Arterial line: Catheter size: 3 Korean Catheter length: 8 cm Catheter type: wire-guided catheter Seldinger technique: yes Laterality: right Site: radial artery Line secured: tape and Tegaderm Results: good waveform and good blood return Number of attempts: 1 Assessment: Events: patient tolerated procedure well with no complications Additional comments: Vygon kit used. CHG-impregnated dressing in use. Ultrasound-guided placement. Result [facility] Mag Villatoro MD ANESTHESIA ORDERABLES Final R esult * AR AN ELECTIVE ENDOTRACHEAL AIRWAY, AR AN PROCEDURE PLACEHOLDER (05/19/2024 9:46 AM RIVET HOLE MACHINE OPERATOR) Narrative Flako Parekh CRNA - 05/19/2024 9:46 AM RIVET HOLE MACHINE OPERATOR Flako Parekh CRNA 05/19/2024 9:51 AM Airway Patient location: OR Urgency: elective Date/time: 05/19/2024 8:13 AM Indications for airway management: anesthesia Difficult airway: no Staff: Supervising provider: Mag Villatoro MD Placed by: CAPACITOR TESTER: Flako Parekh CRNA Emergent airway documentation: Risks and benefits discussed: yes Consent obtained: yes Consent given by: patient Airway prep: Preoxygenated: yes Patient position: sniffing and reverse Trendelenburg MILS maintained throughout: yes Mask difficulty assessment: 0 - not attempted Spontaneous ventilation during airway: absent Sedation level during airway: GA Final airway details: Final airway type: endotracheal airway Tube type: ETT ETT size: 7.0 mm Cuffed: yes Technique used for successful ETT placement: video laryngoscopy Devices/Methods used in placement: intubating stylet Insertion site: oral Blade type: Brielle Video blade type: Humphrey Blade size: 3 Cormack-Lehane (video): grade I - full view of glottis Initial cuff pressure: 25 cm H2O Cuff inflated with: air ETT to teeth: 21 cm Placement verified by: auscultation and CO2 detection Airway secured with: silk tape Number of attempts: 1 Additional comments: Atraumatic intubation x 1 attempt. RSI performed with head of bed elevated; no gastric contents noted in oropharynx. ETT cuff set to 25 cm H20 using manometer. us Mag Villatoro MD ANESTHESIA ORDERABLES Final R esult * (ABNORMAL) POC Blood Gas and Chemistries, Arterial - (05/19/2024 8:35 AM RIVET HOLE MACHINE OPERATOR) pH, Art POC 7.41 7.35 - 7.45 pCO2, Art POC 65(H) 35 - 45 mmHg [facility] pO2, Art POC 128(H) 83 - 108 mmHg [facility] Na, POC 141 135 - 145 mmol/L [facility] K POC 4.4 3.3 - 4.9 mmol/L [facility] Comment: Interpretive Data Not all point of care methods assess for hemolysis. Confirm with instrument and retest K+ if not consistent with clinical signs and symptoms. Current Interpretive Data was last revised on 2023. Cl, POC 101 97 - 110 mmol/L [facility] Ionized Ca, POC 4.78 4.50 - 5.10 mg/dL [facility] Glucose, POC 97 70 - 199 mg/dL [facility] Lactate, POC 0.8 0.7 - 2.0 mmol/L [facility] SO2 (katie) arterial 100(H) 90 - 95 % [facility] Base excess, POC 14.4 mmol/L [facility] HCO3, Art POC 41(H) 20 - 30 mmol/L [facility] Hct, POC 29.0(L) 36.3 - 45.3 % [facility] Total Hb, POC 9.6(L) 11.9 - 15.5 g/dL [facility] Blood 05/19/2024 8:35 AM RIVET HOLE MACHINE OPERATOR 05/19/2024 8:35 AM RIVET HOLE MACHINE OPERATOR us Christiano Ko MD LAB POCT ORDERABLES - DEVIC E Final Result Performing Organization Address [facility] Co de Phone Number [facility] [place] [address] * POCT glucose (05/19/2024 7:36 AM RIVET HOLE MACHINE OPERATOR) [facility] Glucose, POC 101 70 - 199 mg/dL Blood 05/19/2024 7:36 AM RIVET HOLE MACHINE OPERATOR 05/19/2024 7:36 AM RIVET HOLE MACHINE OPERATOR us Christiano Ko MD LAB POCT ORDERABLES - DEVIC E Final Result Performing Organization Address City/[facility] Co de Phone Number [facility] Department [place] [address] * Critical Care (05/19/2024 7:06 AM RIVET HOLE MACHINE OPERATOR) Narrative Earnestine Kelly MD - 05/19/2024 7:06 AM RIVET HOLE MACHINE OPERATOR Earnestine Kelly MD 05/22/2024 3:02 PM Critical Care Performed by: Preston Bosch PA Authorized by: Preston Bosch PA CRITICAL CARE: Team: SICU BLUE Shift: AM Level of Billing: Critical Care My time spent with this patient was 100 minutes: Critical Provider Statement: I have seen and examined the patient on this day of service. I have reviewed and confirmed the history, physical exam, laboratory and radiologic data as documented in the signed ICU note. I have reviewed and discussed my treatment plan with the ICU team and other medical/home service consultant staff, making frequent assessments and decisions regarding this patient's complex medical care. Critical Care time was exclusive of time spent performing separately billed procedures, treating other patients, and teaching. This time was in addition to and separate from critical care provided by other practitioners in my group on this day of service. Critical Care was necessary to treat or prevent imminent or life-threatening deterioration of the following conditions: I spent time reviewing and interpreting data from bedside monitors, laboratory results, and imaging, I spent time discussing the management of this critically ill patient with consultants and the medical staff and I spent time documenting in the medical record us Preston HINOJOSA IN CLINIC/BEDSI DE ORDERABLES Final Result * Critical Result Callback Chemistry (05/19/2024 5:18 AM RIVET HOLE MACHINE OPERATOR) Date Notified [id number] Time Notified 539 [facility] TestName Layla FRYE Called/Read Back Funmilayo [facility] Credentials RN LAYTON FRYE Called By LAYTON FRYE Blood 05/19/2024 5:18 AM RIVET HOLE MACHINE OPERATOR 05/19/2024 5:25 AM RIVET HOLE MACHINE OPERATOR us Charisse Dunham NP LAB BLOOD ORDER TEDDY Final Result [facility] [place] [address] * Type and screen (05/19/2024 5:18 AM RIVET HOLE MACHINE OPERATOR) [place], indirect Negative ABO Rh A Positive LAYTON FRYE Blood 05/19/2024 5:18 AM RIVET HOLE MACHINE OPERATOR 05/19/2024 5:26 AM RIVET HOLE MACHINE OPERATOR Narrative LAYTON FRYE - 05/19/2024 6:12 AM RIVET HOLE MACHINE OPERATOR Has the patient had Daratumumab or Isatuximab in the past 6 months?->Unknown Mag Villatoro MD LAB BLOOD BANK TEST ORDERABLE S Final Result Performing Organization Address [facility] Co de Phone Number [facility] [place] [address] * (ABNORMAL) Blood gas, venous (05/19/2024 5:18 AM RIVET HOLE MACHINE OPERATOR) pH, Venous 7.30(L) 7.32 - 7.43 PCO2, Venous 79(C) 40 - 50 mmHg [facility] Comment:Reviewed PO2, Venous 41 mmHg [facility] Comment: Interpretive Data No Reference Range Established Current Interpretive Data was last revised on 2017. HCO3 Venous, Calculated 40(H) 20 - 30 mmol/L [facility] BE, venous 10 mmol/L [facility] Comment: Interpretive Data No Reference Range Established Current Interpretive Data was last revised on 2017. Blood 05/19/2024 5:18 AM RIVET HOLE MACHINE OPERATOR 05/19/2024 5:25 AM RIVET HOLE MACHINE OPERATOR Charisse Dunham NP LAB BLOOD ORDER TEDDY Final Result Performing Organization Address [facility] Co de Phone Number [facility] [place] [address] * Critical Result Callback Chemistry (05/19/2024 3:41 AM RIVET HOLE MACHINE OPERATOR) Date Notified 20240519 Time Notified 401 LAYTON FRYE TestName pCO2 Art LAYTON HAMPTON Called/Read Back Funmilayo FRYE Credentials RN LAYTON FRYE Called By MARC HAMPTON Blood 05/19/2024 3:41 AM RIVET HOLE MACHINE OPERATOR 05/19/2024 3:47 AM RIVET HOLE MACHINE OPERATOR Charisse Lujanolo PARTICLEBOARD FACTORY WORKER LAB BLOOD ORDER TEDDY Final Result Performing Organization Address [facility] Co de Phone Number [facility] [place] [address] * (ABNORMAL) Blood gas, arterial (05/19/2024 3:41 AM RIVET HOLE MACHINE OPERATOR) pH, Art 7.27(L) 7.35 - 7.45 PCO2, Arterial 83(C) 35 - 45 mmHg [facility] Comment:reviewed PO2, Arterial 157(H) 83 - 108 mmHg [facility] HCO3 Art (Calculated) 40(H) 20 - 30 mmol/L [facility] BE, art 9 mmol/L [facility] Comment: Interpretive Data No Reference Range Established Current Interpretive Data was last revised on 2017 O2 Sat Art (Measured) 99(H) 90 - 95 % [facility] Blood 05/19/2024 3:41 AM RIVET HOLE MACHINE OPERATOR 05/19/2024 3:47 AM RIVET HOLE MACHINE OPERATOR us Charisse Dunham NP LAB BLOOD ORDER TEDDY Final Result Performing Organization Address [facility] de Phone Number [facility] [place] [address] * XR Chest 1 View (05/19/2024 3:20 AM RIVET HOLE MACHINE OPERATOR) Anatomical Region Laterality Modality Body, Chest N/A Computed Radiogr aphy 05/19/2024 9:14 AM RIVET HOLE MACHINE OPERATOR Impressions 05/19/2024 9:50 AM RIVET HOLE MACHINE OPERATOR Retrocardiac opacity in keeping with left lower lobe atelectasis. No other consolidation. No definite effusion. There is no pneumothorax.. Mild cardiomegaly. Outward convexity in the AP window in keeping with large main pulmonary artery. 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 Dictated by: Rhonda Junior MD The radiology attending physician has personally reviewed this study, and had reviewed and/or edited this written report and agrees with it. Electronically signed by: Harish Bangura M.D. Narrative 05/19/2024 9:50 AM RIVET HOLE MACHINE OPERATOR EXAMINATION: XR CHEST 1 VIEW HISTORY: altered mental status COMPARISON:Radiograph on 05/13/2024 Procedure Note Harish Bangura MD - 05/19/2024 EXAMINATION: XR CHEST 1 VIEW HISTORY: altered mental status COMPARISON:Radiograph on 05/13/2024 IMPRESSION: Retrocardiac opacity in keeping with left lower lobe atelectasis. No other consolidation. No definite effusion. There is no pneumothorax.. Mild cardiomegaly. Outward convexity in the AP window in keeping with large main pulmonary artery. 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 Dictated by: Rhonda Junior MD The radiology attending physician has personally reviewed this study, and had reviewed and/or edited this written report and agrees with it. Electronically signed by: Harish Bangura M.D. Charisse Dunham PARTICLEBOARD FACTORY WORKER IMG XR PROCEDUR ES Final Result * Critical Care (05/19/2024 3:00 AM RIVET HOLE MACHINE OPERATOR) Narrative Renay Weber MD - 05/19/2024 3:00 AM RIVET HOLE MACHINE OPERATOR Renay Weber MD 05/20/2024 2:54 AM Critical Care Performed by: Charisse Dunham NP Authorized by: Charisse Dunham NP CRITICAL CARE: Team: SICU BLUE Shift: PM Level of Billing: Critical Care My time spent with this patient was 100 minutes: Critical Provider Statement: I have seen and examined the patient on this day of service. I have reviewed and confirmed the history, physical exam, laboratory and radiologic data as documented in the signed ICU note. I have reviewed and discussed my treatment plan with the ICU team and other medical/home service consultant staff, making frequent assessments and decisions regarding this patient's complex medical care. Critical Care time was exclusive of time spent performing separately billed procedures, treating other patients, and teaching. This time was in addition to and separate from critical care provided by other practitioners in my group on this day of service. Critical Care was necessary to treat or prevent imminent or life-threatening deterioration of the following conditions: I spent time reviewing and interpreting data from bedside monitors, laboratory results, and imaging, I spent time discussing the management of this critically ill patient with consultants and the medical staff and I spent time documenting in the medical record us Charisse Dunham NP IN CLINIC/BEDSI DE ORDERABLES Final Result * POCT glucose (05/19/2024 2:38 AM RIVET HOLE MACHINE OPERATOR) Glucose, POC 122 70 - 199 mg/dL Blood 05/19/2024 2:38 AM RIVET HOLE MACHINE OPERATOR 05/19/2024 2:38 AM RIVET HOLE MACHINE OPERATOR us Christiano Ko MD LAB POCT ORDERABLES - DEVIC E Final Result [facility] [place] [address] * CTA/CTP Rapid Stroke (C) (05/19/2024 2:26 AM RIVET HOLE MACHINE OPERATOR) Anatomical Region Laterality Modality Head and Neck N/A Computed Tomogra phy 05/19/2024 2:49 AM RIVET HOLE MACHINE OPERATOR Impressions 05/19/2024 8:55 AM RIVET HOLE MACHINE OPERATOR 1. No CT evidence of stroke. 2. No significant carotid artery stenosis. 3. Unchanged findings of interparenchymal hemorrhage within the left splenium of the corpus callosum and small left subdural hematoma. 4. There is a significant amount of layering fluid noted within a markedly patulous esophagus. There is setting of acutely altered mental status and hypoxemia, this may represent a source for aspiration. Consider aspiration protocols and/or swallow study once the patient is stable if clinically appropriate. 5. No significant change in appearance of right inferior orbital wall blowout fracture with herniation of extraconal fat into the right maxillary sinus. The Critical results were discussed with Dr. Annemarie Donaldson by Dr. Dr. Cash on 05/19/2024 at 2:10 AM for the noncontrast head CT and at 2:32 AM for the CTA/CTP results. ADDENDUM - This addendum is being placed on the report for a time dependent finding on a patient who is admitted to the hospital (2B). There is new prominence of the extra-axial space on the right, which could represent subdural hygroma of the right cerebral convexity. These findings were communicated to Dr. Brower by Dr. Cash at 7:42 AM on 05/19/2024. Dictated by: Lorena Cash MD The radiology attending physician has personally reviewed this study, and had reviewed and/or edited this written report and agrees with it. Electronically signed by: Dianna Johnson M.D. Narrative 05/19/2024 8:55 AM RIVET HOLE MACHINE OPERATOR EXAMINATION: 1. Computed tomography angiography (CTA) of the head without and with contrast 2. Computed tomography angiography (CTA) of the neck with contrast 3. CT perfusion imaging of the head with contrast HISTORY: 78 years-old Female with recent mechanical ground-level fall, inferior orbital wall fracture, intraparenchymal hematoma and subdural hematoma. Newly altered mental status with bilateral upper extremity weakness. TECHNIQUE: CT of the head was performed with images acquired from skull base to vertex without intravenous contrast. Computed tomographic angiography was then obtained from the aortic arch to the vertex following the uneventful administration of intravenous contrast. 3D images were generated on a dedicated workstation. CT perfusion of the brain was performed with intravenous contrast using a separate data acquisition. The data was transmitted to a separate workstation for processing by [employer] software ([employer]) to produce automated calculations of the estimated cerebral blood flow and Tmax. Contrast information: 110 mL [id number]-350 COMPARISON: CT head from 05/13/2024 and 05/12/2024 FINDINGS: HEAD CT FINDINGS: There is a redemonstrated 9 mm focus of hyperattenuation within the left splenium of the corpus callosum abutting the posterior horn of the left lateral ventricle, which is not significantly increased in size compared to prior imaging favored to represent evolving intraparenchymal hematoma. A trace left ankle convexity subdural hematoma is better appreciated on MRI from 05/14/2024. There is no noncontrast evidence of acute stroke. There is no vascular hyperdensity of the M1 segments or basilar artery. Scattered periventricular and deep white matter hypodensities. There are no lacunar infarcts. Cerebral volume is typical for age. Ventricles are of normal size and morphology. There is no mass effect or midline shift. Redemonstrated right orbital wall blowout fracture with herniation of the extraconal fat into the right maxillary sinus. ANGIOGRAPHIC FINDINGS: The visualized aortic arch appears normal with normal configuration of the great vessels. There is mild narrowing of the proximal right subclavian artery. Retropharyngeal course of the carotids. There is no geographic area of vascular paucity in the brain. Left anterior circulation: L CCA: Tortuous without occlusion or high-grade stenosis L carotid bifurcation: Calcified and noncalcified atherosclerotic plaques with less than 50% narrowing L ICA proximal: no occlusion or significant stenosis L ICA distal: no occlusion or significant stenosis L ICA terminus: no occlusion or significant stenosis L M1: no occlusion or significant stenosis L M2 branches: no occlusion or significant stenosis L A2: no occlusion or significant stenosis Right anterior circulation: R CCA: no occlusion or significant stenosis R carotid bifurcation: Calcified and noncalcified atherosclerotic plaques with less than 50% narrowing R ICA proximal: no occlusion or significant stenosis R ICA distal: no occlusion or significant stenosis R ICA terminus: no occlusion or significant stenosis R M1: no occlusion or significant stenosis R M2 branches: no occlusion or significant stenosis R A2: no occlusion or significant stenosis Posterior circulation: L Vertebral Artery: no occlusion or significant stenosis R Vertebral Artery: no occlusion or significant stenosis Basilar Artery: no occlusion or significant stenosis L PHOTOGRAPHIC PLATEMAKER: no occlusion or significant stenosis R PHOTOGRAPHIC PLATEMAKER: no occlusion or significant stenosis No cerebral aneurysm is seen. There is no evidence for an arteriovenous malformation. There is no suspicious cervical lymphadenopathy. Age-indeterminate compression deformity of T5. Multilevel degenerative changes of the spine. There are small bilateral pleural effusions. The pulmonary artery is mildly enlarged. Layering fluid is noted within a markedly patulous esophagus. PERFUSION FINDINGS: Estimated ischemic core volume (rCBF < 0.3): 0 mL Estimated hypoperfusion volume (Tmax > 6 sec): 0 mL Procedure Note Dianna Johnson MD - 05/19/2024 EXAMINATION: 1. Computed tomography angiography (CTA) of the head without and with contrast 2. Computed tomography angiography (CTA) of the neck with contrast 3. CT perfusion imaging of the head with contrast HISTORY: 78 years-old Female with recent mechanical ground-level fall, inferior orbital wall fracture, intraparenchymal hematoma and subdural hematoma. Newly altered mental status with bilateral upper extremity weakness. TECHNIQUE: CT of the head was performed with images acquired from skull base to vertex without intravenous contrast. Computed tomographic angiography was then obtained from the aortic arch to the vertex following the uneventful administration of intravenous contrast. 3D images were generated on a dedicated workstation. CT perfusion of the brain was performed with intravenous contrast using a separate data acquisition. The data was transmitted to a separate workstation for processing by RAP[employer] software ([employer]) to produce automated calculations of the estimated cerebral blood flow and Tmax. Contrast information: 110 mL Optiray-350 COMPARISON: CT head from 05/13/2024 and 05/12/2024 FINDINGS: HEAD CT FINDINGS: There is a redemonstrated 9 mm focus of hyperattenuation within the left splenium of the corpus callosum abutting the posterior horn of the left lateral ventricle, which is not significantly increased in size compared to prior imaging favored to represent evolving intraparenchymal hematoma. A trace left ankle convexity subdural hematoma is better appreciated on MRI from 05/14/2024. There is no noncontrast evidence of acute stroke. There is no vascular hyperdensity of the M1 segments or basilar artery. Scattered periventricular and deep white matter hypodensities. There are no lacunar infarcts. Cerebral volume is typical for age. Ventricles are of normal size and morphology. There is no mass effect or midline shift. Redemonstrated right orbital wall blowout fracture with herniation of the extraconal fat into the right maxillary sinus. ANGIOGRAPHIC FINDINGS: The visualized aortic arch appears normal with normal configuration of the great vessels. There is mild narrowing of the proximal right subclavian artery. Retropharyngeal course of the carotids. There is no geographic area of vascular paucity in the brain. Left anterior circulation: L CCA: Tortuous without occlusion or high-grade stenosis L carotid bifurcation: Calcified and noncalcified atherosclerotic plaques with less than 50% narrowing L ICA proximal: no occlusion or significant stenosis L ICA distal: no occlusion or significant stenosis L ICA terminus: no occlusion or significant stenosis L M1: no occlusion or significant stenosis L M2 branches: no occlusion or significant stenosis L A2: no occlusion or significant stenosis Right anterior circulation: R CCA: no occlusion or significant stenosis R carotid bifurcation: Calcified and noncalcified atherosclerotic plaques with less than 50% narrowing R ICA proximal: no occlusion or significant stenosis R ICA distal: no occlusion or significant stenosis R ICA terminus: no occlusion or significant stenosis R M1: no occlusion or significant stenosis R M2 branches: no occlusion or significant stenosis R A2: no occlusion or significant stenosis Posterior circulation: L Vertebral Artery: no occlusion or significant stenosis R Vertebral Artery: no occlusion or significant stenosis Basilar Artery: no occlusion or significant stenosis L PHOTOGRAPHIC PLATEMAKER: no occlusion or significant stenosis R PHOTOGRAPHIC PLATEMAKER: no occlusion or significant stenosis No cerebral aneurysm is seen. There is no evidence for an arteriovenous malformation. There is no suspicious cervical lymphadenopathy. Age-indeterminate compression deformity of T5. Multilevel degenerative changes of the spine. There are small bilateral pleural effusions. The pulmonary artery is mildly enlarged. Layering fluid is noted within a markedly patulous esophagus. PERFUSION FINDINGS: Estimated ischemic core volume (rCBF < 0.3): 0 mL Estimated hypoperfusion volume (Tmax > 6 sec): 0 mL IMPRESSION: 1. No CT evidence of stroke. 2. No significant carotid artery stenosis. 3. Unchanged findings of interparenchymal hemorrhage within the left splenium of the corpus callosum and small left subdural hematoma. 4. There is a significant amount of layering fluid noted within a markedly patulous esophagus. There is setting of acutely altered mental status and hypoxemia, this may represent a source for aspiration. Consider aspiration protocols and/or swallow study once the patient is stable if clinically appropriate. 5. No significant change in appearance of right inferior orbital wall blowout fracture with herniation of extraconal fat into the right maxillary sinus. The Critical results were discussed with Dr. Annemarie Donaldson by Dr. Dr. Cash on 05/19/2024 at 2:10 AM for the noncontrast head CT and at 2:32 AM for the CTA/CTP results. ADDENDUM - This addendum is being placed on the report for a time dependent finding on a patient who is admitted to the hospital (2B). There is new prominence of the extra-axial space on the right, which could represent subdural hygroma of the right cerebral convexity. These findings were communicated to Dr. Brower by Dr. Cash at 7:42 AM on 05/19/2024. Dictated by: Lorena Cash MD The radiology attending physician has personally reviewed this study, and had reviewed and/or edited this written report and agrees with it. Electronically signed by: Dianna Mazaheri, M.D. us Christiano Ko MD IMG CT PROCEDURES Final Res ult * (ABNORMAL) POCT BF-[id number]-[id number]-HCT, WB - ISTAT (05/19/2024 1:27 AM RIVET HOLE MACHINE OPERATOR) Na POC 140 135 - 145 mmol/L K POC 4.5 3.3 - 4.9 mmol/L [facility] Comment: Interpretive Data This method is not able to assess for hemolysis, which may falsely increase potassium concentrations. If further testing is needed to evaluate this result, consider in-laboratory plasma potassium. Current Interpretive Data was last revised on 2021. Glucose POC i-STAT 123 70 - 199 mg/dL [facility] Hct, POC 31.0(L) 35.6 - 45.5 % [facility] Blood 05/19/2024 1:27 AM RIVET HOLE MACHINE OPERATOR 05/19/2024 1:27 AM RIVET HOLE MACHINE OPERATOR Christiano Ko MD LAB POCT ORDERABLES - DEVIC E Final Result [facility] Department [place] [address] * (ABNORMAL) Arterial Blood gas w/Lactate POCT (05/19/2024 1:22 AM RIVET HOLE MACHINE OPERATOR) [facility] Lactate POC i-STAT <0.5(L) 0.7 - 2.0 mmol/L pH POC 7.29(L) 7.35 - 7.45 [facility] pCO2, Art POC 81(C) 35 - 45 mmHg [facility] PO2 POC 88 80 - 105 mmHg [facility] CO2, total POC 41(H) 20 - 30 mmol/L [facility] HCO3, POC 39(H) 21 - 30 mmol/L [facility] BE POC 12(H) -2 - 3 mmol/L [facility] O2 sat POC 95 95 - 98 % [facility] Blood 05/19/2024 1:22 AM RIVET HOLE MACHINE OPERATOR 05/19/2024 1:22 AM RIVET HOLE MACHINE OPERATOR Christiano Ko MD LAB BLOOD ORDERABLES Final Result Performing Organization Address [facility] Co de Phone Number [facility] [place] [address] * POCT glucose (05/19/2024 1:15 AM RIVET HOLE MACHINE OPERATOR) Glucose, POC 134 70 - 199 mg/dL Blood 05/19/2024 1:15 AM RIVET HOLE MACHINE OPERATOR 05/19/2024 1:15 AM RIVET HOLE MACHINE OPERATOR Christiano Ko MD LAB POCT ORDERABLES - DEVIC E Final Result Performing Organization Address [facility] Co de Phone Number [facility] [place] [address] * Potassium, whole blood (05/19/2024 12:55 AM RIVET HOLE MACHINE OPERATOR) [facility] Potassium, bld 4.6 3.3 - 4.9 mmol/L Blood 05/19/2024 12:5 5 AM RIVET HOLE MACHINE OPERATOR 05/19/2024 1:10 AM RIVET HOLE MACHINE OPERATOR Christiano Ko MD LAB BLOOD ORDERABLES Final Result Performing Organization Address [facility] Co de Phone Number [facility] [place] [address] * eGFR (05/19/2024 12:55 AM RIVET HOLE MACHINE OPERATOR) eGFR 75 >=60 mL/min/1. 73 m2 Comment: Interpretive Data Reference Interval Normal >/= 90 mL/min/1.73m2 Mildly decreased* 60 - 89 mL/min/1.73m2 Mildly to moderately decreased 45 - 59 mL/min/1.73m2 Moderately to severely decreased 30 - 44 mL/min/1.73m2 Severely decreased 15 - 29 mL/min/1.73m2 Kidney Failure < 15 mL/min/1.73m2 *Relative to young adult level Estimated glomerular filtration rate is determined by the 2020 CKD-EPI equation recommended by the National Kidney Foundation (A Unifying Approach to GFR Estimation: Recommendations of the NKF-ASK Task Force on Reassessing the Inclusion of Race in Diagnosing Kidney Disease, JASN 202). The CKD-EPI equation should not be used for patients with unstable renal function and has not been validated in children and those over 70. Current interpretive data was last reviewed 2021. Blood 05/19/2024 12:5 5 AM RIVET HOLE MACHINE OPERATOR 05/19/2024 1:24 AM RIVET HOLE MACHINE OPERATOR us Christiano Ko MD LAB BLOOD ORDERABLES Final Result [facility] [place] [address] * (ABNORMAL) CBC without differential (05/19/2024 12:55 AM RIVET HOLE MACHINE OPERATOR) WBC 5.7 3.8 - 9.9 K/cumm Hgb 9.1(L) 11.9 - 15.5 g/dL [facility] Hct 30.2(L) 35.6 - 45.5 % [facility] Plt 136(L) 150 - 400 K/cumm [facility] MPV 10.9 9.1 - 12.3 fL [facility] RBC 3.06(L) 3.90 - 5.20 M/cumm [facility] MCV 98.7(H) 81.3 - 96.4 fL [facility] MCH 29.7 27.1 - 33.3 pg [facility] MCHC 30.1(L) 32.3 - 35.7 g/dL [facility] RDW CV 14.5 11.1 - 14.9 % [facility] RDW SD 52.2(H) 35.7 - 48.1 fL [facility] NRBC abs 0.00 0.00 - 0.01 K/cumm [facility] Blood 05/19/2024 12:5 5 AM RIVET HOLE MACHINE OPERATOR 05/19/2024 1:25 AM RIVET HOLE MACHINE OPERATOR Christiano Ko MD LAB BLOOD ORDERABLES Final Result Performing Organization Address City/[facility]/ZIP Co de Phone Number [facility] [place] [address] * Phosphorus (05/19/2024 12:55 AM RIVET HOLE MACHINE OPERATOR) Pathologist [facility] Phosphorus, pl 4.1 2.3 - 4.5 mg/dL Blood 05/19/2024 12:5 5 AM RIVET HOLE MACHINE OPERATOR 05/19/2024 1:24 AM RIVET HOLE MACHINE OPERATOR Christiano Ko MD LAB BLOOD ORDERABLES Final Result Performing Organization Address [facility] de Phone Number [facility] [place] [address] * Magnesium (05/19/2024 12:55 AM RIVET HOLE MACHINE OPERATOR) [facility] Magnesium 1.8 1.4 - 2.5 mg/dL Blood 05/19/2024 12:5 5 AM RIVET HOLE MACHINE OPERATOR 05/19/2024 1:24 AM RIVET HOLE MACHINE OPERATOR Christiano Ko MD LAB BLOOD ORDERABLES Final Result Performing Organization Address City/[facility] Co de Phone Number [facility] [place] [address] * (ABNORMAL) Basic metabolic panel (05/19/2024 12:55 AM RIVET HOLE MACHINE OPERATOR) Pathologist [facility] Sodium 145 135 - 145 mmol/L Potassium, pl 4.8 3.3 - 4.9 mmol/L [facility] Chloride 104 97 - 110 mmol/L [facility] CO2 39(H) 22 - 32 mmol/L [facility] Anion gap 2 2 - 15 mmol/L [facility] BUN 17 6 - 25 mg/dL [facility] Creatinine 0.81 0.60 - 1.10 mg/dL [facility] Glucose 126 70 - 199 mg/dL [facility] Comment: Interpretive Data Fasting glucose >/= 126 mg/dl is diagnostic for diabetes. Fasting is defined as no caloric intake for at least 8 hours. Fasting glucose between 100 mg/dl to 125 mg/dl is diagnostic of prediabetes. In a patient with classic symptoms of hyperglycemia or hyperglycemic crisis, a random glucose >/= 200 mg/dl is diagnostic for diabetes. In the absence of unequivocal hyperglycemia, results should be confirmed by repeat testing. The classification and Diagnosis of Diabetes Diabetes Care 202; 46: S19-S40. Current interpretive data was last revised 2022. Calcium 8.8 8.5 - 10.3 mg/dL [facility] Blood 05/19/2024 12:5 5 AM RIVET HOLE MACHINE OPERATOR 05/19/2024 1:24 AM RIVET HOLE MACHINE OPERATOR us Christiano Ko MD LAB BLOOD ORDERABLES Final Result [facility] Department [place] [address] * AR AN ELECTIVE ENDOTRACHEAL AIRWAY, AR AN PROCEDURE PLACEHOLDER (05/18/2024 4:41 PM RIVET HOLE MACHINE OPERATOR) Narrative Dar Long CRNA - 05/18/2024 4:41 PM RIVET HOLE MACHINE OPERATOR Dar Long CRNA 05/18/2024 4:45 PM Airway Patient location: OR Urgency: elective Date/time: 05/18/2024 4:05 PM Indications for airway management: anesthesia and airway protection Difficult airway: no Staff: Placed by: Anesthesiologist: Kvng Verma MD CAPACITOR TESTER: Dar Long CRNA Emergent airway documentation: Risks and benefits discussed: yes Consent obtained: yes Consent given by: patient Airway prep: Preoxygenated: yes Patient position: sniffing MILS maintained throughout: yes Mask difficulty assessment: 2 - vent by mask + OA or adjuvant Spontaneous ventilation during airway: absent Sedation level during airway: GA Final airway details: Final airway type: endotracheal airway Tube type: ETT ETT size: 7.0 mm Cuffed: yes Technique used for successful ETT placement: direct laryngoscopy Devices/Methods used in placement: stylet Insertion site: oral Blade type: Brielle Blade size: 3 Cormack-Lehane (direct): grade I - full view of glottis Cuff volume: 7 mL Cuff inflated with: air ETT to gums: 20 cm Placement verified by: auscultation and CO2 detection Airway secured with: silk tape Number of attempts: 1 Planned trial extubation: yes us Kvng Verma MD ANESTHESIA ORDERABLE S Edited Result - Final * AR AN PROCEDURE PLACEHOLDER (05/18/2024 3:47 PM RIVET HOLE MACHINE OPERATOR) Narrative Kvng Verma MD - 05/18/2024 3:47 PM RIVET HOLE MACHINE OPERATOR Kvng Verma MD 05/20/2024 9:44 AM Peripheral Block Patient location during procedure: pre-op holding Reason for block: post-op pain management per surgeon request Ultrasound image in chart or stored: yes Block type: single shot Laterality: left Block type: brachial plexus - axillary Staff: Supervising provider: Kvng Verma MD Placed by: Fellow: Lizzie Andrea MD Procedure prep: Preprocedure checklist: patient identified, procedure contraindications assessed, site marked, procedure consent, surgical consent, IV checked, risks, benefits and alternatives discussed, monitors and equipment checked and timeout performed Patient position: supine Procedure performed while patient: sedate with meaningful contact Monitoring: ECG, oximetry and blood pressure Supplemental O2: nasal cannula Prep solution: chlorhexidine/alcohol PPE: provider hat/mask, sterile gloves and sterile probe cover and gel Peripheral nerve block: Technique: ultrasound guided Needle type: insulated and echogenic Needle gauge: 22 G Needle length: 50 mm Injection assessment: injection made incrementally with constant monitoring, negative aspiration for heme, local visualized surrounding nerve on ultrasound, no paresthesias noted, normal resistance to injection and see flowsheet for medication details Assessment: Block success: full evaluation pending Events: patient tolerated procedure well with no complications us Lizzie Bates MD ANESTHESIA ORDERABL ES Final Result * eGFR (05/17/2024 11:56 PM RIVET HOLE MACHINE OPERATOR) eGFR 73 >=60 mL/min/1. 73 m2 Comment: Interpretive Data Reference Interval Normal >/= 90 mL/min/1.73m2 Mildly decreased* 60 - 89 mL/min/1.73m2 Mildly to moderately decreased 45 - 59 mL/min/1.73m2 Moderately to severely decreased 30 - 44 mL/min/1.73m2 Severely decreased 15 - 29 mL/min/1.73m2 Kidney Failure < 15 mL/min/1.73m2 *Relative to young adult level Estimated glomerular filtration rate is determined by the 2020 CKD-EPI equation recommended by the National Kidney Foundation (A Unifying Approach to GFR Estimation: Recommendations of the NKF-ASK Task Force on Reassessing the Inclusion of Race in Diagnosing Kidney Disease, JASN 202). The CKD-EPI equation should not be used for patients with unstable renal function and has not been validated in children and those over 70. Current interpretive data was last reviewed 2021. Blood 05/17/2024 11:5 6 PM RIVET HOLE MACHINE OPERATOR 05/18/2024 12:45 AM RIVET HOLE MACHINE OPERATOR Christiano Ko MD LAB BLOOD ORDERABLES Final Result [facility] Department [place] [address] * (ABNORMAL) CBC without differential (05/17/2024 11:56 PM RIVET HOLE MACHINE OPERATOR) WBC 5.3 3.8 - 9.9 K/cumm Hgb 9.5(L) 11.9 - 15.5 g/dL [facility] Hct 31.7(L) 35.6 - 45.5 % [facility] Plt 147(L) 150 - 400 K/cumm [facility] MPV 11.0 9.1 - 12.3 fL [facility] RBC 3.23(L) 3.90 - 5.20 M/cumm [facility] MCV 98.1(H) 81.3 - 96.4 fL [facility] MCH 29.4 27.1 - 33.3 pg [facility] MCHC 30.0(L) 32.3 - 35.7 g/dL [facility] RDW CV 14.6 11.1 - 14.9 % [facility] RDW SD 52.7(H) 35.7 - 48.1 fL [facility] NRBC abs 0.00 0.00 - 0.01 K/cumm [facility] Blood 05/17/2024 11:5 6 PM RIVET HOLE MACHINE OPERATOR 05/18/2024 12:45 AM RIVET HOLE MACHINE OPERATOR Christiano Ko MD LAB BLOOD ORDERABLES Final Result Performing Organization Address City/[facility] Co de Phone Number [facility] [place] [address] * Phosphorus (05/17/2024 11:56 PM RIVET HOLE MACHINE OPERATOR) [facility] Phosphorus, pl 3.9 2.3 - 4.5 mg/dL Blood 05/17/2024 11:5 6 PM RIVET HOLE MACHINE OPERATOR 05/18/2024 12:45 AM RIVET HOLE MACHINE OPERATOR Christiano Ko MD LAB BLOOD ORDERABLES Final Result Performing Organization Address City/[facility] Co de Phone Number [facility] [place] [address] * Magnesium (05/17/2024 11:56 PM RIVET HOLE MACHINE OPERATOR) [facility] Magnesium 1.9 1.4 - 2.5 mg/dL Blood 05/17/2024 11:5 6 PM RIVET HOLE MACHINE OPERATOR 05/18/2024 12:45 AM RIVET HOLE MACHINE OPERATOR Christiano Ko MD LAB BLOOD ORDERABLES Final Result Performing Organization Address City/[facility] [place] [address] * (ABNORMAL) Basic metabolic panel (05/17/2024 11:56 PM RIVET HOLE MACHINE OPERATOR) [facility] Sodium 146(H) 135 - 145 mmol/L Potassium, pl 5.0(H) 3.3 - 4.9 mmol/L [facility] Chloride 102 97 - 110 mmol/L [facility] CO2 37(H) 22 - 32 mmol/L [facility] Anion gap 7 2 - 15 mmol/L [facility] BUN 22 6 - 25 mg/dL [facility] Creatinine 0.83 0.60 - 1.10 mg/dL [facility] Glucose 101 70 - 199 mg/dL [facility] Comment: Interpretive Data Fasting glucose >/= 126 mg/dl is diagnostic for diabetes. Fasting is defined as no caloric intake for at least 8 hours. Fasting glucose between 100 mg/dl to 125 mg/dl is diagnostic of prediabetes. In a patient with classic symptoms of hyperglycemia or hyperglycemic crisis, a random glucose >/= 200 mg/dl is diagnostic for diabetes. In the absence of unequivocal hyperglycemia, results should be confirmed by repeat testing. The classification and Diagnosis of Diabetes Diabetes Care 2021; 46: S19-S40. Current interpretive data was last revised 2022. Calcium 9.3 8.5 - 10.3 mg/dL [facility] Blood 05/17/2024 11:5 6 PM RIVET HOLE MACHINE OPERATOR 05/18/2024 12:45 AM RIVET HOLE MACHINE OPERATOR Christiano Ko MD LAB BLOOD ORDERABLES Final Result [facility] Department [place] [address] * eGFR (05/16/2024 10:25 PM RIVET HOLE MACHINE OPERATOR) eGFR 61 >=60 mL/min/1. 73 m2 Comment: Interpretive Data Reference Interval Normal >/= 90 mL/min/1.73m2 Mildly decreased* 60 - 89 mL/min/1.73m2 Mildly to moderately decreased 45 - 59 mL/min/1.73m2 Moderately to severely decreased 30 - 44 mL/min/1.73m2 Severely decreased 15 - 29 mL/min/1.73m2 Kidney Failure < 15 mL/min/1.73m2 *Relative to young adult level Estimated glomerular filtration rate is determined by the 2020 CKD-EPI equation recommended by the National Kidney Foundation (A Unifying Approach to GFR Estimation: Recommendations of the NKF-ASK Task Force on Reassessing the Inclusion of Race in Diagnosing Kidney Disease, JASN 2020). The CKD-EPI equation should not be used for patients with unstable renal function and has not been validated in children and those over 70. Current interpretive data was last reviewed 2021. Blood 05/16/2024 10:2 5 PM RIVET HOLE MACHINE OPERATOR 05/16/2024 10:50 PM RIVET HOLE MACHINE OPERATOR Christiano Ko MD LAB BLOOD ORDERABLES Final Result [facility] Department [place] [address] * (ABNORMAL) CBC without differential (05/16/2024 10:25 PM RIVET HOLE MACHINE OPERATOR) WBC 4.8 3.8 - 9.9 K/cumm Hgb 9.0(L) 11.9 - 15.5 g/dL [facility] Hct 30.0(L) 35.6 - 45.5 % [facility] Plt 134(L) 150 - 400 K/cumm [facility] MPV 10.6 9.1 - 12.3 fL [facility] RBC 3.01(L) 3.90 - 5.20 M/cumm [facility] MCV 99.7(H) 81.3 - 96.4 fL [facility] MCH 29.9 27.1 - 33.3 pg [facility] MCHC 30.0(L) 32.3 - 35.7 g/dL [facility] RDW CV 14.6 11.1 - 14.9 % [facility] RDW SD 53.5(H) 35.7 - 48.1 fL [facility] NRBC abs 0.00 0.00 - 0.01 K/cumm [facility] Blood 05/16/2024 10:2 5 PM RIVET HOLE MACHINE OPERATOR 05/16/2024 10:50 PM RIVET HOLE MACHINE OPERATOR us Christiano Ko MD LAB BLOOD ORDERABLES Final Result Performing Organization Address City/[facility]/ZIP Co de Phone Number [facility] Department [place] [address] * Phosphorus (05/16/2024 10:25 PM RIVET HOLE MACHINE OPERATOR) Pathologist [facility] Phosphorus, pl 3.9 2.3 - 4.5 mg/dL Blood 05/16/2024 10:2 5 PM RIVET HOLE MACHINE OPERATOR 05/16/2024 10:50 PM RIVET HOLE MACHINE OPERATOR Christiano Ko MD LAB BLOOD ORDERABLES Final Result Performing Organization Address City/[facility]/[place] [address] * Magnesium (05/16/2024 10:25 PM RIVET HOLE MACHINE OPERATOR) [facility] Magnesium 1.8 1.4 - 2.5 mg/dL Blood 05/16/2024 10:2 5 PM RIVET HOLE MACHINE OPERATOR 05/16/2024 10:50 PM RIVET HOLE MACHINE OPERATOR Christiano Ko MD LAB BLOOD ORDERABLES Final Result Performing Organization Address [facility] [place] [address] * (ABNORMAL) Basic metabolic panel (05/16/2024 10:25 PM RIVET HOLE MACHINE OPERATOR) [facility] Sodium 146(H) 135 - 145 mmol/L Potassium, pl 4.7 3.3 - 4.9 mmol/L [facility] Chloride 103 97 - 110 mmol/L [facility] CO2 39(H) 22 - 32 mmol/L [facility] Anion gap 4 2 - 15 mmol/L [facility] BUN 23 6 - 25 mg/dL [facility] Creatinine 0.96 0.60 - 1.10 mg/dL [facility] Glucose 98 70 - 199 mg/dL [facility] Comment: Interpretive Data Fasting glucose >/= 126 mg/dl is diagnostic for diabetes. Fasting is defined as no caloric intake for at least 8 hours. Fasting glucose between 100 mg/dl to 125 mg/dl is diagnostic of prediabetes. In a patient with classic symptoms of hyperglycemia or hyperglycemic crisis, a random glucose >/= 200 mg/dl is diagnostic for diabetes. In the absence of unequivocal hyperglycemia, results should be confirmed by repeat testing. The classification and Diagnosis of Diabetes Diabetes Care 202; 46: S19-S40. Current interpretive data was last revised 2022. Calcium 9.0 8.5 - 10.3 mg/dL [facility] Blood 05/16/2024 10:2 5 PM RIVET HOLE MACHINE OPERATOR 05/16/2024 10:50 PM RIVET HOLE MACHINE OPERATOR Christiano Ko MD LAB BLOOD ORDERABLES Final Result Performing Organization Address City/[facility]/ZIP Co de Phone Number [facility] Department [place] [address] * eGFR (05/15/2024 10:17 PM RIVET HOLE MACHINE OPERATOR) eGFR 65 >=60 mL/min/1. 73 m2 Comment: Interpretive Data Reference Interval Normal >/= 90 mL/min/1.73m2 Mildly decreased* 60 - 89 mL/min/1.73m2 Mildly to moderately decreased 45 - 59 mL/min/1.73m2 Moderately to severely decreased 30 - 44 mL/min/1.73m2 Severely decreased 15 - 29 mL/min/1.73m2 Kidney Failure < 15 mL/min/1.73m2 *Relative to young adult level Estimated glomerular filtration rate is determined by the 2020 CKD-EPI equation recommended by the National Kidney Foundation (A Unifying Approach to GFR Estimation: Recommendations of the NKF-ASK Task Force on Reassessing the Inclusion of Race in Diagnosing Kidney Disease, JASN 2020). The CKD-EPI equation should not be used for patients with unstable renal function and has not been validated in children and those over 70. Current interpretive data was last reviewed 2021. Blood 05/15/2024 10:1 7 PM RIVET HOLE MACHINE OPERATOR 05/15/2024 10:31 PM RIVET HOLE MACHINE OPERATOR Christiano Ko MD LAB BLOOD ORDERABLES Final Result [facility] Department [place] [address] * (ABNORMAL) CBC without differential (05/15/2024 10:17 PM RIVET HOLE MACHINE OPERATOR) [facility] WBC 6.5 3.8 - 9.9 K/cumm Hgb 9.3(L) 11.9 - 15.5 g/dL [facility] Hct 30.3(L) 35.6 - 45.5 % [facility] Plt 142(L) 150 - 400 K/cumm [facility] MPV 10.9 9.1 - 12.3 fL [facility] RBC 3.16(L) 3.90 - 5.20 M/cumm [facility] MCV 95.9 81.3 - 96.4 fL [facility] MCH 29.4 27.1 - 33.3 pg [facility] MCHC 30.7(L) 32.3 - 35.7 g/dL [facility] RDW CV 14.6 11.1 - 14.9 % [facility] RDW SD 51.8(H) 35.7 - 48.1 fL [facility] NRBC abs 0.00 0.00 - 0.01 K/cumm [facility] Blood 05/15/2024 10:1 7 PM RIVET HOLE MACHINE OPERATOR 05/15/2024 10:31 PM RIVET HOLE MACHINE OPERATOR us Christiano Ko MD LAB BLOOD ORDERABLES Final Result Performing Organization Address City/[facility] Co de Phone Number [facility] Department [place] [address] * Phosphorus (05/15/2024 10:17 PM RIVET HOLE MACHINE OPERATOR) [facility] Phosphorus, pl 3.7 2.3 - 4.5 mg/dL Blood 05/15/2024 10:1 7 PM RIVET HOLE MACHINE OPERATOR 05/15/2024 10:31 PM RIVET HOLE MACHINE OPERATOR Christiano Ko MD LAB BLOOD ORDERABLES Final Result [facility] Department [place] [address] * Magnesium (05/15/2024 10:17 PM RIVET HOLE MACHINE OPERATOR) [facility] Magnesium 2.0 1.4 - 2.5 mg/dL Blood 05/15/2024 10:1 7 PM RIVET HOLE MACHINE OPERATOR 05/15/2024 10:31 PM RIVET HOLE MACHINE OPERATOR Christiano Ko MD LAB BLOOD ORDERABLES Final Result Performing Organization Address [facility] Co de Phone Number [facility] [place] [address] * (ABNORMAL) Basic metabolic panel (05/15/2024 10:17 PM RIVET HOLE MACHINE OPERATOR) [facility] Sodium 145 135 - 145 mmol/L Potassium, pl 4.7 3.3 - 4.9 mmol/L [facility] Chloride 102 97 - 110 mmol/L [facility] CO2 37(H) 22 - 32 mmol/L [facility] Anion gap 6 2 - 15 mmol/L [facility] BUN 26(H) 6 - 25 mg/dL [facility] Creatinine 0.91 0.60 - 1.10 mg/dL [facility] Glucose 110 70 - 199 mg/dL [facility] Comment: Interpretive Data Fasting glucose >/= 126 mg/dl is diagnostic for diabetes. Fasting is defined as no caloric intake for at least 8 hours. Fasting glucose between 100 mg/dl to 125 mg/dl is diagnostic of prediabetes. In a patient with classic symptoms of hyperglycemia or hyperglycemic crisis, a random glucose >/= 200 mg/dl is diagnostic for diabetes. In the absence of unequivocal hyperglycemia, results should be confirmed by repeat testing. The classification and Diagnosis of Diabetes Diabetes Care 202; 46: S19-S40. Current interpretive data was last revised 2022. Calcium 9.1 8.5 - 10.3 mg/dL [facility] Blood 05/15/2024 10:1 7 PM RIVET HOLE MACHINE OPERATOR 05/15/2024 10:31 PM RIVET HOLE MACHINE OPERATOR Christiano Ko MD LAB BLOOD ORDERABLES Final Result Performing Organization Address [facility] Co de Phone Number [facility] [place] [address] * (ABNORMAL) Blood gas, arterial (05/15/2024 11:40 AM RIVET HOLE MACHINE OPERATOR) pH, Art 7.32(L) 7.35 - 7.45 PCO2, Arterial 70(H) 35 - 45 mmHg [facility] PO2, Arterial 99 83 - 108 mmHg [facility] HCO3 Art (Calculated) 38(H) 20 - 30 mmol/L [facility] BE, art 8 mmol/L [facility] Comment: Interpretive Data No Reference Range Established Current Interpretive Data was last revised on 2017 O2 Sat Art (Measured) 98(H) 90 - 95 % [facility] Blood 05/15/2024 11:4 0 AM RIVET HOLE MACHINE OPERATOR 05/15/2024 11:50 AM RIVET HOLE MACHINE OPERATOR Debby Gaona NP LAB BLOOD ORDERABLES F inal Result Performing Organization Address [facility] de Phone Number [facility] [place] [address] * TRANSTHORACIC ECHO (TTE) COMPLETE W DOPPLER/CF W CONTRAST (05/15/2024 10:00 AM RIVET HOLE MACHINE OPERATOR) Anatomical Region Laterality Modality Ultrasound 05/15/2024 8:59 AM RIVET HOLE MACHINE OPERATOR Narrative 05/15/2024 1:40 PM RIVET HOLE MACHINE OPERATOR [facility] [place] [address] Transthoracic Echocardiographic Report Patient Name: LORRAINE CUEVA J : 1945 (78y 4m) Gender: F Study Date: 05/15/2024 08:59:48 Ht(Inch): 65 Wt(Lb): 210.98 BSA: 2.09 Central Scheduler: Heber Mathur [facility] Location: [id number] Order Provider: CHRISTIANO KO Heart Rate: 83 BMI: 35.11 BP: 114 / 73 Quality: The study images were of technically good quality. Ref Provider: CHRISTIANO KO PROCEDURES: Echocardiographic Report: ([id number], [id number]) Transthoracic complete echo with strain imaging and contrast, 2D, spectral and tissue Doppler, color flow Doppler, M-mode. Contrast: 1.5 ml Optison Administered, (1.5 ml wasted). INDICATIONS: Syncope. FINDINGS: Left Ventricle: Mildly dilated left ventricle based on volume index. Normal LV wall thickness. Mildly depressed left ventricular systolic function. The Ejection Fraction (Carmichael's) is measured at 52 %. Left ventricular diastolic parameters are consistent with Grade III diastolic dysfunction (elevated LA pressure, restrictive physiology). Unable to assess global longitudinal strain due to image quality. The ventricular septum is flattened or `D-shaped` in both systole and diastole, consistent with right ventricular volume and pressure overload and significant pulmonary hypertension. No left ventricular thrombus visualized. Regional Wall Motion: There is mild global hypokinesis. Right Ventricle: The right ventricle appears mildly dilated. Mild right ventricular hypokinesis. Prominent moderator band - normal variant. Left Atrium: Moderately dilated left atrium. Right Atrium: Right atrial dilatation. Mitral Valve: Moderate mitral annular calcification. There is severe mitral regurgitation. No stenosis present. MV Structure Abnormalities: Anterior and posterior mitral valve leaflets appear thickened. Anterior and posterior mitral valve leaflets appear calcified. Aortic Valve: Trileaflet aortic valve. The aortic cusps appear mildly thickened. No aortic regurgitation seen. No aortic valve stenosis. Tricuspid Valve: The tricuspid valve demonstrates normal leaflet structure. There is severe tricuspid regurgitation. Estimated pulmonary artery systolic pressure is consistent with moderate pulmonary hypertension (45-60mmHg). No tricuspid valve stenosis. Pulmonic Valve: The pulmonic valve demonstrates normal leaflet structure. No evidence of pulmonic regurgitation. No pulmonic valve stenosis present. Pericardium: Normal pericardium without evidence of pericardial effusion. Aorta: There is mild aortic root dilation. The aortic root is normal in size when indexed. IVC: IVC is dilated. The IVC (inferior vena cava) was >2.1 cm and collapsibility <50%. Rhythm: The rhythm during the study was normal sinus rhythm. CONCLUSIONS: 1. Mildly dilated left ventricle based on volume index. Normal LV wall thickness. Mildly depressed left ventricular systolic function. The Ejection Fraction (Carmichael's) is measured at 52 %. Left ventricular diastolic parameters are consistent with Grade III diastolic dysfunction (elevated LA pressure, restrictive physiology). Unable to assess global longitudinal strain due to image quality. The ventricular septum is flattened or `D-shaped` in both systole and diastole, consistent with right ventricular volume and pressure overload and significant pulmonary hypertension. No left ventricular thrombus visualized. 2. There is mild global hypokinesis. 3. The right ventricle appears mildly dilated. Mild right ventricular hypokinesis. No right ventricular strain imaging available. 4. Biatrial enlargement. 5. Moderate mitral annular calcification. There is severe mitral regurgitation. No stenosis present. MV Structure Abnormalities: Anterior and posterior mitral valve leaflets appear thickened. Anterior and posterior mitral valve leaflets appear calcified. 6. Mild aortic sclerosis without stenosis or insufficiency. 7. Structurally normal pulmonic valve with no stenosis or insufficiency. 8. Severe tricuspid insufficiency with moderately elevated pulmonary artery systolic pressure. No tricuspid stenosis. 9. No pericardial effusion. 10. Normal aortic root when indexed to body surface area. MEASUREMENTS: 2D/MM Value Range Doppler Value Range LVIDd 2D 5.53 cm [ 3.80 - 5.20 ] AV Peak Kenny 0.99 m/s [ 1.00 - 1.70 ] LVIDs 2D 4.05 cm [ 2.20 - 3.50 ] AV Peak PG 3.92 IVSd 2D 0.67 cm [ 0.60 - 0.90 ] AV Mean PG 2.30 mmHg LVPWd 2D 0.72 cm [ 0.60 - 0.90 ] AV VTI 22.34 cm LV Thickness Ratio 0.93 LVOT Peak Kenny 0.90 m/s [ 0.70 - 1.10 ] LV FS 2D 26.75 % [ 27.00 - 45.00 ] LVOT Peak PG 3.24 LV Mass 2D 141.01 g LVOT Mean PG 1.63 mmHg LV Mass Index 2D 67.47 g/m2 LVOT VTI 18.02 cm RWT 0.26 LVOT Diam 1.86 cm EDV Mod BP 139.90 ml [ 46.00 - 106.00 ] EZRA VTI 2.19 cm2 LV EDV Index 66.94 ml/m2 LVOT/AV VTI 0.81 - Dimensionless index (DVI) ESV Mod BP 67.40 ml [ 14.00 - 42.00 ] MV E Peak Kenny 0.91 m/s [ 0.60 - 1.30 ] EF Mod BP 52 % [ 54 - 74 ] MV A Peak Kenny 0.34 m/s [ 1.00 - 1.20 ] LA Length 2C 6.24 cm MV E/A 2.70 ratio [ 0.80 - 1.50 ] LA Length 4C 6.46 cm MV Decel Time 170.79 msec [ 104.00 - 258.00 ] LA Volume BP 80.78 ml Med E` Kenny 6.12 cm/sec [ 8.00 - 15.00 ] LA Volume Index 38.65 ml/m2 [ 16.00 - 34.00 ] Lat E` Kenny 8.65 cm/sec [ 10.00 - 15.00 ] RV Base Dimen 2D 3.8 cm [ 2.5 - 4.2 ] Average E/E` 12.32 TAPSE 1.32 cm [ 1.71 - 5.00 ] RV S` 13.64 cm/sec RA Volume 113.49 ml TR Peak Kenny 3.21 m/s [ 1.00 - 2.80 ] RA Volume Index 54.30 ml/m2 TR Peak PG 41.2 AoR Diam 2D 3.38 cm [ 2.70 - 3.70 ] PV Peak Kenny 0.79 m/s [ 0.40 - 0.80 ] Ao Root Index 1.62 cm/m2 [ 1.00 - 2.00 ] PV Peak PG 2.50 - ATTESTATION: I have reviewed and interpreted the pertinent images and measurements of this study. I attest to the conclusions in the final report that is provided above. DISCLAIMER: The study images and the final report will be retained in the patient chart by the Echo Laboratory for the legally required time period. This chart constitutes the legal record of any testing performed. Electronically Signed By: Murtaza Pedersen MD 05/15/2024 13:39:37 RIVET HOLE MACHINE OPERATOR Electronically Signed By: Murtaza Pedersen MD 05/15/2024 13:39:37 RIVET HOLE MACHINE OPERATOR Procedure Note Murtaza Pedersen MD - 05/15/2024 [facility] [place]iac [place] [address] Transthoracic Echocardiographic Report Patient Name: LORRAINE CUEVA J : 1945 (78y 4m) Gender: F Study Date: 05/15/2024 08:59:48 Ht(Inch): 65 Wt(Lb): 210.98 BSA: 2.09 Central Scheduler: Heber Mathur [facility] Location: [id number] Order Provider:CHRISTIANO KO Heart Rate: 83 BMI: 35.11 BP: 114 / 73 Quality: The study images were oftechnically good quality. Ref Provider: CHRISTIANO KO PROCEDURES: Echocardiographic Report: ([id number], [id number]) Transthoracic complete echo withstrain imaging and contrast, 2D, spectral and tissue Doppler, color flow Doppler,M-mode. Contrast: 1.5 ml Optison Administered, (1.5 ml wasted). INDICATIONS: Syncope. FINDINGS: Left Ventricle: Mildly dilated left ventricle based on volume index.Normal LV wall thickness. Mildly depressed left ventricular systolic function. TheEjection Fraction (Carmichael's) is measured at 52 %. Left ventricular diastolic parameters areconsistent with Grade III diastolic dysfunction (elevated LA pressure, restrictivephysiology). Unable to assess global longitudinal strain due to image quality. Theventricular septum is flattened or `D-shaped` in both systole and diastole, consistent withright ventricular volume and pressure overload and significant pulmonaryhypertension. No left ventricular thrombus visualized. Regional Wall Motion: There is mild global hypokinesis. Right Ventricle: The right ventricle appears mildly dilated. Mild rightventricular hypokinesis. Prominent moderator band - normal variant. Left Atrium: Moderately dilated left atrium. Right Atrium: Right atrial dilatation. Mitral Valve: Moderate mitral annular calcification. There is severemitral regurgitation. No stenosis present. MV Structure Abnormalities: Anteriorand posterior mitral valve leaflets appear thickened. Anterior and posterior mitralvalve leaflets appear calcified. Aortic Valve: Trileaflet aortic valve. The aortic cusps appear mildlythickened. No aortic regurgitation seen. No aortic valve stenosis. Tricuspid Valve: The tricuspid valve demonstrates normal leafletstructure. There is severe tricuspid regurgitation. Estimated pulmonary artery systolicpressure is consistent with moderate pulmonary hypertension (45-60mmHg). No tricuspidvalve stenosis. Pulmonic Valve: The pulmonic valve demonstrates normal leaflet structure.No evidence of pulmonic regurgitation. No pulmonic valve stenosis present. Pericardium: Normal pericardium without evidence of pericardialeffusion. Aorta: There is mild aortic root dilation. The aortic root is normal insize when indexed. IVC: IVC is dilated. The IVC (inferior vena cava) was >2.1 cm andcollapsibility <50%. Rhythm: The rhythm during the study was normal sinus rhythm. CONCLUSIONS: 1. Mildly dilated left ventricle based on volume index. Normal LV wallthickness. Mildly depressed left ventricular systolic function. The Ejection Fraction(Carmichael's) is measured at 52 %. Left ventricular diastolic parameters are consistentwith Grade III diastolic dysfunction (elevated LA pressure, restrictive physiology).Unable to assess global longitudinal strain due to image quality. The ventricular septum isflattened or `D-shaped` in both systole and diastole, consistent with right ventricularvolume and pressure overload and significant pulmonary hypertension. No leftventricular thrombus visualized. 2. There is mild global hypokinesis. 3. The right ventricle appears mildly dilated. Mild right ventricularhypokinesis. No right ventricular strain imaging available. 4. Biatrial enlargement. 5. Moderate mitral annular calcification. There is severe mitralregurgitation. No stenosis present. MV Structure Abnormalities: Anterior and posteriormitral valve leaflets appear thickened. Anterior and posterior mitral valve leafletsappear calcified. 6. Mild aortic sclerosis without stenosis or insufficiency. 7. Structurally normal pulmonic valve with no stenosis or insufficiency. 8. Severe tricuspid insufficiency with moderately elevated pulmonaryartery systolic pressure. No tricuspid stenosis. 9. No pericardial effusion. 10. Normal aortic root when indexed to body surface area. MEASUREMENTS: 2D/MM Value Range DopplerValue Range LVIDd 2D 5.53 cm [ 3.80 - 5.20 ] AV Peak Vel0.99 m/s [ 1.00 - 1.70 ] LVIDs 2D 4.05 cm [ 2.20 - 3.50 ] AV Peak PG3.92 IVSd 2D 0.67 cm [ 0.60 - 0.90 ] AV Mean PG2.30 mmHg LVPWd 2D 0.72 cm [ 0.60 - 0.90 ] AV VTI22.34 cm LV Thickness Ratio 0.93 LVOT Peak Vel0.90 m/s [ 0.70 - 1.10 ] LV FS 2D 26.75 % [ 27.00 - 45.00 ] LVOT Peak PG3.24 LV Mass 2D 141.01 g LVOT Mean PG1.63 mmHg LV Mass Index 2D 67.47 g/m2 LVOT VTI18.02 cm RWT 0.26 LVOT Diam1.86 cm EDV Mod BP 139.90 ml [ 46.00 - 106.00 ] EZRA VTI2.19 cm2 LV EDV Index 66.94 ml/m2 LVOT/AV VTI0.81 - Dimensionless index (DVI) ESV Mod BP 67.40 ml [ 14.00 - 42.00 ] MV E Peak Vel0.91 m/s [ 0.60 - 1.30 ] EF Mod BP 52 % [ 54 - 74 ] MV A Peak Vel0.34 m/s [ 1.00 - 1.20 ] LA Length 2C 6.24 cm MV E/A2.70 ratio [ 0.80 - 1.50 ] LA Length 4C 6.46 cm MV Decel Uuxo663.79 msec [ 104.00 - 258.00 ] LA Volume BP 80.78 ml Med E` Vel6.12 cm/sec [ 8.00 - 15.00 ] LA Volume Index 38.65 ml/m2 [ 16.00 - 34.00 ] Lat E` Vel8.65 cm/sec [ 10.00 - 15.00 ] RV Base Dimen 2D 3.8 cm [ 2.5 - 4.2 ] Average E/E`12.32 TAPSE 1.32 cm [ 1.71 - 5.00 ] RV S`13.64 cm/sec RA Volume 113.49 ml TR Peak Vel3.21 m/s [ 1.00 - 2.80 ] RA Volume Index 54.30 ml/m2 TR Peak PG41.2 AoR Diam 2D 3.38 cm [ 2.70 - 3.70 ] PV Peak Vel0.79 m/s [ 0.40 - 0.80 ] Ao Root Index 1.62 cm/m2 [ 1.00 - 2.00 ] PV Peak PG2.50 - ATTESTATION: I have reviewed and interpreted the pertinent images and measurements ofthis study. I attest to the conclusions in the final report that is provided above. DISCLAIMER: The study images and the final report will be retained in the patientchart by the Echo Laboratory for the legally required time period. This chart constitutesthe legal record of any testing performed. Electronically Signed By: Murtaza Pedersen MD 05/15/2024 13:39:37 RIVET HOLE MACHINE OPERATOR Electronically Signed By: Murtaza Pedersen MD 05/15/2024 13:39:37 RIVET HOLE MACHINE OPERATOR Christiano Ko MD CV ECHO PROCEDURES Final Re sult * eGFR (05/15/2024 8:13 AM RIVET HOLE MACHINE OPERATOR) eGFR 80 >=60 mL/min/1. 73 m2 Comment: Interpretive Data Reference Interval Normal >/= 90 mL/min/1.73m2 Mildly decreased* 60 - 89 mL/min/1.73m2 Mildly to moderately decreased 45 - 59 mL/min/1.73m2 Moderately to severely decreased 30 - 44 mL/min/1.73m2 Severely decreased 15 - 29 mL/min/1.73m2 Kidney Failure < 15 mL/min/1.73m2 *Relative to young adult level Estimated glomerular filtration rate is determined by the 2020 CKD-EPI equation recommended by the National Kidney Foundation (A Unifying Approach to GFR Estimation: Recommendations of the NKF-ASK Task Force on Reassessing the Inclusion of Race in Diagnosing Kidney Disease, JASN 2020). The CKD-EPI equation should not be used for patients with unstable renal function and has not been validated in children and those over 70. Current interpretive data was last reviewed 2021. Blood 05/15/2024 8:13 AM RIVET HOLE MACHINE OPERATOR 05/15/2024 8:32 AM RIVET HOLE MACHINE OPERATOR Christiano Ko MD LAB BLOOD ORDERABLES Final Result [facility] Department [place] [address] * (ABNORMAL) CBC without differential (05/15/2024 8:13 AM RIVET HOLE MACHINE OPERATOR) WBC 4.7 3.8 - 9.9 K/cumm Hgb 9.5(L) 11.9 - 15.5 g/dL [facility] Hct 31.3(L) 35.6 - 45.5 % [facility] Plt 119(L) 150 - 400 K/cumm [facility] MPV 10.8 9.1 - 12.3 fL [facility] RBC 3.21(L) 3.90 - 5.20 M/cumm [facility] MCV 97.5(H) 81.3 - 96.4 fL [facility] MCH 29.6 27.1 - 33.3 pg [facility] MCHC 30.4(L) 32.3 - 35.7 g/dL [facility] RDW CV 14.3 11.1 - 14.9 % [facility] RDW SD 51.6(H) 35.7 - 48.1 fL [facility] NRBC abs 0.00 0.00 - 0.01 K/cumm [facility] Blood 05/15/2024 8:13 AM RIVET HOLE MACHINE OPERATOR 05/15/2024 8:33 AM RIVET HOLE MACHINE OPERATOR us Christiano Ko MD LAB BLOOD ORDERABLES Final Result Performing Organization Address City/[facility] Co de Phone Number [facility] [place] [address] * Phosphorus (05/15/2024 8:13 AM RIVET HOLE MACHINE OPERATOR) Pathologist [facility] Phosphorus, pl 3.4 2.3 - 4.5 mg/dL Blood 05/15/2024 8:13 AM RIVET HOLE MACHINE OPERATOR 05/15/2024 8:32 AM RIVET HOLE MACHINE OPERATOR us Christiano Ko MD LAB BLOOD ORDERABLES Final Result Performing Organization Address [facility] Co de Phone Number [facility] [place] [address] * Magnesium (05/15/2024 8:13 AM RIVET HOLE MACHINE OPERATOR) [facility] Magnesium 2.0 1.4 - 2.5 mg/dL Blood 05/15/2024 8:13 AM RIVET HOLE MACHINE OPERATOR 05/15/2024 8:32 AM RIVET HOLE MACHINE OPERATOR us Christiano Ko MD LAB BLOOD ORDERABLES Final Result Performing Organization Address [facility] Co de Phone Number [facility] [place] [address] * (ABNORMAL) Basic metabolic panel (05/15/2024 8:13 AM RIVET HOLE MACHINE OPERATOR) Sodium 146(H) 135 - 145 mmol/L Potassium, pl 4.8 3.3 - 4.9 mmol/L [facility] Chloride 104 97 - 110 mmol/L [facility] CO2 36(H) 22 - 32 mmol/L [facility] Anion gap 6 2 - 15 mmol/L [facility] BUN 19 6 - 25 mg/dL [facility] Creatinine 0.77 0.60 - 1.10 mg/dL [facility] Glucose 114 70 - 199 mg/dL [facility] Comment: Interpretive Data Fasting glucose >/= 126 mg/dl is diagnostic for diabetes. Fasting is defined as no caloric intake for at least 8 hours. Fasting glucose between 100 mg/dl to 125 mg/dl is diagnostic of prediabetes. In a patient with classic symptoms of hyperglycemia or hyperglycemic crisis, a random glucose >/= 200 mg/dl is diagnostic for diabetes. In the absence of unequivocal hyperglycemia, results should be confirmed by repeat testing. The classification and Diagnosis of Diabetes Diabetes Care 2021; 46: S19-S40. Current interpretive data was last revised 2022. Calcium 9.2 8.5 - 10.3 mg/dL [facility] Blood 05/15/2024 8:13 AM RIVET HOLE MACHINE OPERATOR 05/15/2024 8:32 AM RIVET HOLE MACHINE OPERATOR us Christiano Ko MD LAB BLOOD ORDERABLES Final Result Performing Organization Address City/[facility]/ZIP Co de Phone Number [facility] [place] [address] * ECG 12 lead (05/15/2024 7:03 AM RIVET HOLE MACHINE OPERATOR) Ventricular Rate EKG/Min 89 BPM [facility] QRS-Interval (MSEC) 88 ms [facility] QT-Interval (MSEC) 478 ms [facility] QTc 581 ms [facility] R [place] 97 degrees [facility] T [place] 33 degrees [facility] Diagnosis Atrial fibrillation Rightward axis Low voltage QRS Abnormal ECG Confirmed by Radha BROWN, [facility] ([id number][facility] on 05/15/2024 8:45:18 AM [facility] 05/15/2024 7:03 AM RIVET HOLE MACHINE OPERATOR 05/15/2024 8:45 AM RIVET HOLE MACHINE OPERATOR us Debby Gaona PARTICLEBOARD FACTORY WORKER ECG ORDERABLES Final Result Performing Organization Address City/[facility]/ZIP Co de Phone Number [facility] * ECG 12 lead (05/15/2024 7:02 AM RIVET HOLE MACHINE OPERATOR) Ventricular Rate EKG/Min 100 BPM [facility] Atrial Rate 62 BPM [facility] AR-Interval (MSEC) 144 ms [facility] QRS-Interval (MSEC) 76 ms [facility] QT-Interval (MSEC) 456 ms [facility] QTc 588 ms [facility] R [place] 102 degrees [facility] T [place] 156 degrees [facility] Diagnosis Atrial fibrillation/flu tter Poor R-wave progression in the precordial leads Low voltage QRS Anterolateral infarct (cited on or before 13-MAY-2024) T wave abnormality, consider inferior ischemia Prolonged QT Abnormal ECG When compared with ECG of 13-MAY-2024 21:31, Sinus rhythm has replaced Atrial fibrillation Serial changes of evolving Anterior infarct Present Serial changes of evolving Anterolateral infarct Present Confirmed by GABO PIEDRA M.D ([id number]) on 05/25/2024 3:18:42 PM [facility] 05/15/2024 7:02 AM RIVET HOLE MACHINE OPERATOR 05/25/2024 3:18 PM RIVET HOLE MACHINE OPERATOR us Christiano Ko MD ECG ORDERABLES Final Resul t [facility] * POCT glucose (05/14/2024 12:41 PM RIVET HOLE MACHINE OPERATOR) [facility] Glucose, POC 128 70 - 199 mg/dL Blood 05/14/2024 12:4 1 PM RIVET HOLE MACHINE OPERATOR 05/14/2024 12:41 PM RIVET HOLE MACHINE OPERATOR us Christiano Ko MD LAB POCT ORDERABLES - DEVIC E Final Result [facility] [place] [address] * MRI Brain Tumor W WO Contrast (05/14/2024 12:04 PM RIVET HOLE MACHINE OPERATOR) Anatomical Region Laterality Modality Head and Neck N/A Magnetic Resonan ce 05/14/2024 2:00 PM RIVET HOLE MACHINE OPERATOR Impressions 05/14/2024 2:25 PM RIVET HOLE MACHINE OPERATOR 1. There is 1 mm left cerebral convexity subdural hemorrhage. No midline shift 2. Redemonstrated focus of susceptibility signal within the splenium of the corpus callosum further evaluation was limited secondary to nondiagnostic postcontrast images. The Critical results were discussed with PARTICLEBOARD FACTORY WORKER puls by Dr. Garcia on 05/14/2024 at 2:00 PM Dictated by: Marisol Newton D.O. The radiology attending physician has personally reviewed this study, and had reviewed and/or edited this written report and agrees with it. Electronically signed by: Babak Vora M.D, PHD Narrative 05/14/2024 2:25 PM RIVET HOLE MACHINE OPERATOR EXAMINATION: Magnetic resonance imaging (MRI) of the brain and brainstem without and with contrast HISTORY: concern for hemorrhagic neoplasm vs ICH TECHNIQUE: Multiplanar multi-weighted MRI of the brain and brainstem was performed without and with intravenous contrast using the brain tumor protocol. This included high-resolution 3D T1-weighted images without and with intravenous contrast and dynamic susceptibility contrast data for perfusion analysis. Contrast information: 18 mL Gadoterate Meglumine COMPARISON: CT head 05/13/[address] face 05/12/2024 FINDINGS: Motion degraded exam with nondiagnostic postcontrast imaging. There is 1 mm left cerebral convexity subdural hemorrhage. Redemonstrated focus of susceptibility signal within the splenium of the corpus callosum further evaluation was limited secondary to nondiagnostic postcontrast images. The scalp and calvarium are normal. The superior sagittal sinus demonstrates normal venous flow. The corpus callosum is normal in shape and signal intensity. The posterior fossa is unremarkable. The pituitary and sella are normal. The brainstem and craniocervical junction are unremarkable. Diffusion weighted images reveal no hyperintensities to suggest acute cerebral infarction. The ventricles are normal in size and position without evidence of hydrocephalus. Partial opacification of the ethmoidal air cells and mucosal thickening of the bilateral maxillary sinuses. . The visualized portions of the mastoids are unremarkable. Known right orbital wall fracture is better seen on comparison CT Normal flow voids are demonstrated in the carotid arteries and basilar artery. Procedure Note Babak Vora MD PhD - 05/14/2024 EXAMINATION: Magnetic resonance imaging (MRI) of the brain and brainstem without and with contrast HISTORY: concern for hemorrhagic neoplasm vs ICH TECHNIQUE: Multiplanar multi-weighted MRI of the brain and brainstem was performed without and with intravenous contrast using the brain tumor protocol. This included high-resolution 3D T1-weighted images without and with intravenous contrast and dynamic susceptibility contrast data for perfusion analysis. Contrast information: 18 mL Gadoterate Meglumine COMPARISON: CT head 05/13/[address] face 05/12/2024 FINDINGS: Motion degraded exam with nondiagnostic postcontrast imaging. There is 1 mm left cerebral convexity subdural hemorrhage. Redemonstrated focus of susceptibility signal within the splenium of the corpus callosum further evaluation was limited secondary to nondiagnostic postcontrast images. The scalp and calvarium are normal. The superior sagittal sinus demonstrates normal venous flow. The corpus callosum is normal in shape and signal intensity. The posterior fossa is unremarkable. The pituitary and sella are normal. The brainstem and craniocervical junction are unremarkable. Diffusion weighted images reveal no hyperintensities to suggest acute cerebral infarction. The ventricles are normal in size and position without evidence of hydrocephalus. Partial opacification of the ethmoidal air cells and mucosal thickening of the bilateral maxillary sinuses. . The visualized portions of the mastoids are unremarkable. Known right orbital wall fracture is better seen on comparison CT Normal flow voids are demonstrated in the carotid arteries and basilar artery. IMPRESSION: 1. There is 1 mm left cerebral convexity subdural hemorrhage. No midline shift 2. Redemonstrated focus of susceptibility signal within the splenium of the corpus callosum further evaluation was limited secondary to nondiagnostic postcontrast images. The Critical results were discussed with PARTICLEBOARD FACTORY WORKER puls by Dr. Garcia on 05/14/2024 at 2:00 PM Dictated by: Marisol Newton D.O. The radiology attending physician has personally reviewed this study, and had reviewed and/or edited this written report and agrees with it. Electronically signed by: Babak Vora M.D, PHD us Christiano Ko MD IMG MRI PROCEDURES Final Re sult * US Carotids Duplex Bilateral (05/14/2024 9:45 AM RIVET HOLE MACHINE OPERATOR) Anatomical Region Laterality Modality Vascular Bilateral Ultrasound 05/14/2024 8:33 AM RIVET HOLE MACHINE OPERATOR Narrative 05/15/2024 9:36 AM RIVET HOLE MACHINE OPERATOR [facility] - Department of Vascular Surgery, Vascular Laboratory [address] [place] [id number] Carotid Duplex Ultrasound Report Patient Name: LORRAINE CUEVA J : 1945 (78y 4m) Study Date: 05/14/2024 8:33:43 AM Gender: F Tech: Location: [id number] Ref Provider: CHRISTIANO KO Quality: Adequate Order Provider: CHRISTIANO KO PROCEDURES: Carotid Report: Carotid duplex examination of the extracranial arteries was performed using 2D, color and spectral Doppler. INDICATIONS: Possible syncope. MEASUREMENTS: Right Value Units Left Value Units RT Prox CCA PSV 82 cm/sec LT Prox CCA PSV 68 cm/sec RT Prox CCA EDV 32 cm/sec LT Prox CCA EDV 27 cm/sec RT Distal CCA PSV 84 cm/sec LT Distal CCA PSV 70 cm/sec RT Distal CCA EDV 20 cm/sec LT Distal CCA EDV 21 cm/sec RT Prox ICA PSV 96 cm/sec LT Prox ICA PSV 94 cm/sec RT Prox ICA EDV 43 cm/sec LT Prox ICA EDV 44 cm/sec RT Mid ICA PSV 69 cm/sec LT Mid ICA PSV 68 cm/sec RT Mid ICA EDV 28 cm/sec LT Mid ICA EDV 12 cm/sec RT Distal ICA PSV 93 cm/sec LT Distal ICA PSV 132 cm/sec RT Distal ICA EDV 39 cm/sec LT Distal ICA EDV 56 cm/sec RT ECA Prx PSV 77 cm/sec LT ECA Prx PSV 95 cm/sec RT ICA/CCA 1.15 ratio LT ICA/CCA 1.88 ratio RT VERT PSV 57 cm/sec LT VERT PSV 40 cm/sec FINDINGS: Performing Central Scheduler: Megan Sanderson RVT. Rt Common Carotid Artery: Duplex imaging of the right common carotid artery is within normal limits without evidence of atherosclerotic disease. Rt Internal Carotid Artery: The plaque in the right internal carotid artery appears to be heterogeneous, calcified and irregular. Atherosclerotic changes of the right internal carotid artery without hemodynamically significant Doppler findings. <50% stenosis. Rt External Carotid Artery: The right external carotid artery is patent without evidence of atherosclerotic plaque. Rt Vertebral Artery: The right vertebral artery is patent with antegrade flow. Lt Common Carotid Artery: The plaque in the left CCA appears to be heterogeneous and irregular. Atherosclerotic changes of the left common carotid artery with no hemodynamically significant Doppler findings. Lt Internal Carotid Artery: The plaque in the left internal carotid artery appears to be heterogeneous and smooth. Atherosclerotic changes of the left internal carotid artery without hemodynamically significant Doppler findings. <50% stenosis. Lt External Carotid Artery: The left external carotid artery is patent without evidence of atherosclerotic plaque. Lt Vertebral Artery: The left vertebral artery is patent with antegrade flow. Comments: Sub-optimal exam due to: pt. motion (involuntary per pt.) & vessel motion (respiratory status). Technically difficult exam. Marked vessel tortousity noted bilateral carotid bifurcations. CONCLUSIONS: 1. The right internal carotid artery disease is consistent with a less than 50% stenosis. 2. The left internal carotid artery disease is consistent with a less than 50% stenosis. 3. Atherosclerotic changes of the bilateral common carotid artery with hemodynamically significant Doppler findings. 4. Normal, antegrade flow is noted in bilateral vertebral arteries. 5. Sub-optimal exam due to: pt. motion (involuntary per pt.) & vessel motion (respiratory status). Technically difficult exam. Marked vessel tortousity noted bilateral carotid bifurcations. HISTORY: Fall with head strike. Unclear syncope vs mechanical fall, multiple bruises over arm, thigh, back, face & neck, mood disorder, COPD, Closed fracture orbital floor, Heart failure, Pulmonary HTN, A-Fib. on Xarelto. No infections documented. Currently on [address] 05-13-2024: Intraparenchymal hemorrhage. PREVIOUS STUDIES: No previous studies for comparison. DISCLAIMER: The study images and the final report will be retained in the patient chart by the Vascular Laboratory for the legally required time period. This chart constitutes the legal record of any testing performed. ATTESTATION: I have reviewed and interpreted the pertinent images and measurements of this study. I attest to the conclusions in the final report that is provided above. Electronically Signed By: Martin Pitts MD FACS 05/15/2024 9:10:35 AM RIVET HOLE MACHINE OPERATOR Procedure Note Martin Pitts MD - 05/15/2024 [facility] - Department of Vascular Surgery,Vascular Laboratory [address] [place] [address] Carotid Duplex Ultrasound Report Patient Name: LORRAINE CUEVA J : 1945 (78y 4m) Study Date: 05/14/2024 8:33:43 AM Gender: F Tech: Location: [id number] Ref Provider: CHRISTIANO KO Quality: Adequate Order Provider: CHRISTIANO KO PROCEDURES: Carotid Report: Carotid duplex examination of the extracranial arterieswas performed using 2D, color and spectral Doppler. INDICATIONS: Possible syncope. MEASUREMENTS: Right Value Units Left Value Units RT Prox CCA PSV 82 cm/sec LT Prox CCA PSV 68 cm/sec RT Prox CCA EDV 32 cm/sec LT Prox CCA EDV 27 cm/sec RT Distal CCA PSV 84 cm/sec LT Distal CCA PSV 70 cm/sec RT Distal CCA EDV 20 cm/sec LT Distal CCA EDV 21 cm/sec RT Prox ICA PSV 96 cm/sec LT Prox ICA PSV 94 cm/sec RT Prox ICA EDV 43 cm/sec LT Prox ICA EDV 44 cm/sec RT Mid ICA PSV 69 cm/sec LT Mid ICA PSV 68 cm/sec RT Mid ICA EDV 28 cm/sec LT Mid ICA EDV 12 cm/sec RT Distal ICA PSV 93 cm/sec LT Distal ICA PSV 132 cm/sec RT Distal ICA EDV 39 cm/sec LT Distal ICA EDV 56 cm/sec RT ECA Prx PSV 77 cm/sec LT ECA Prx PSV 95 cm/sec RT ICA/CCA 1.15 ratio LT ICA/CCA 1.88 ratio RT VERT PSV 57 cm/sec LT VERT PSV 40 cm/sec FINDINGS: Performing Central Scheduler: Megan Sanderson RVT. Rt Common Carotid Artery: Duplex imaging of the right common carotidartery is within normal limits without evidence of atherosclerotic disease. Rt Internal Carotid Artery: The plaque in the right internal carotidartery appears to be heterogeneous, calcified and irregular. Atherosclerotic changes of theright internal carotid artery without hemodynamically significant Doppler findings. <50%stenosis. Rt External Carotid Artery: The right external carotid artery is patentwithout evidence of atherosclerotic plaque. Rt Vertebral Artery: The right vertebral artery is patent with antegradeflow. Lt Common Carotid Artery: The plaque in the left CCA appears to beheterogeneous and irregular. Atherosclerotic changes of the left common carotid artery withno hemodynamically significant Doppler findings. Lt Internal Carotid Artery: The plaque in the left internal carotid arteryappears to be heterogeneous and smooth. Atherosclerotic changes of the left internalcarotid artery without hemodynamically significant Doppler findings. <50% stenosis. Lt External Carotid Artery: The left external carotid artery is patentwithout evidence of atherosclerotic plaque. Lt Vertebral Artery: The left vertebral artery is patent with antegradeflow. Comments: Sub-optimal exam due to: pt. motion (involuntary per pt.) &vessel motion (respiratory status). Technically difficult exam. Marked vessel tortousitynoted bilateral carotid bifurcations. CONCLUSIONS: 1. The right internal carotid artery disease is consistent with a lessthan 50% stenosis. 2. The left internal carotid artery disease is consistent with a less than50% stenosis. 3. Atherosclerotic changes of the bilateral common carotid artery withhemodynamically significant Doppler findings. 4. Normal, antegrade flow is noted in bilateral vertebral arteries. 5. Sub-optimal exam due to: pt. motion (involuntary per pt.) & vesselmotion (respiratory status). Technically difficult exam. Marked vessel tortousity notedbilateral carotid bifurcations. HISTORY: Fall with head strike. Unclear syncope vs mechanical fall, multiplebruises over arm, thigh, back, face & neck, mood disorder, COPD, Closed fracture orbitalfloor, Heart failure, Pulmonary HTN, A-Fib. on Xarelto. No infections documented.Currently on [address] 05-13-2024: Intraparenchymal hemorrhage. PREVIOUS STUDIES: No previous studies for comparison. DISCLAIMER: The study images and the final report will be retained in the patientchart by the Vascular Laboratory for the legally required time period. This chartconstitutes the legal record of any testing performed. ATTESTATION: I have reviewed and interpreted the pertinent images and measurements ofthis study. I attest to the conclusions in the final report that is provided above. Electronically Signed By: Martin Pitts MD FACS 05/15/2024 9:10:35 AM RIVET HOLE MACHINE OPERATOR Christiano Ko MD [facility] US PROCEDURES Final Res ult * eGFR (05/14/2024 7:00 AM RIVET HOLE MACHINE OPERATOR) eGFR 85 >=60 mL/min/1. 73 m2 Comment: Interpretive Data Reference Interval Normal >/= 90 mL/min/1.73m2 Mildly decreased* 60 - 89 mL/min/1.73m2 Mildly to moderately decreased 45 - 59 mL/min/1.73m2 Moderately to severely decreased 30 - 44 mL/min/1.73m2 Severely decreased 15 - 29 mL/min/1.73m2 Kidney Failure < 15 mL/min/1.73m2 *Relative to young adult level Estimated glomerular filtration rate is determined by the 2020 CKD-EPI equation recommended by the National Kidney Foundation (A Unifying Approach to GFR Estimation: Recommendations of the NKF-ASK Task Force on Reassessing the Inclusion of Race in Diagnosing Kidney Disease, JASN 2020). The CKD-EPI equation should not be used for patients with unstable renal function and has not been validated in children and those over 70. Current interpretive data was last reviewed 2021. Blood 05/14/2024 7:00 AM RIVET HOLE MACHINE OPERATOR 05/14/2024 7:37 AM RIVET HOLE MACHINE OPERATOR Debby Gaona NP LAB BLOOD ORDERABLES F inal Result [facility] Department [place] [address] * (ABNORMAL) CBC without differential (05/14/2024 7:00 AM RIVET HOLE MACHINE OPERATOR) WBC 5.0 3.8 - 9.9 K/cumm Hgb 9.4(L) 11.9 - 15.5 g/dL [facility] Hct 32.1(L) 35.6 - 45.5 % [facility] Plt 117(L) 150 - 400 K/cumm [facility] MPV 10.5 9.1 - 12.3 fL [facility] RBC 3.19(L) 3.90 - 5.20 M/cumm [facility] MCV 100.6(H) 81.3 - 96.4 fL [facility] MCH 29.5 27.1 - 33.3 pg [facility] MCHC 29.3(L) 32.3 - 35.7 g/dL [facility] RDW CV 14.6 11.1 - 14.9 % [facility] RDW SD 54.3(H) 35.7 - 48.1 fL [facility] NRBC abs 0.00 0.00 - 0.01 K/cumm [facility] Blood 05/14/2024 7:00 AM RIVET HOLE MACHINE OPERATOR 05/14/2024 7:33 AM RIVET HOLE MACHINE OPERATOR us Debby Gaona PARTICLEBOARD FACTORY WORKER LAB BLOOD ORDERABLES F inal Result Performing Organization Address City/[facility] de Phone Number [facility] [place] [address] * Phosphorus (05/14/2024 7:00 AM RIVET HOLE MACHINE OPERATOR) [facility] Phosphorus, pl 3.9 2.3 - 4.5 mg/dL Blood 05/14/2024 7:00 AM RIVET HOLE MACHINE OPERATOR 05/14/2024 7:37 AM RIVET HOLE MACHINE OPERATOR Debby Gaona PARTICLEBOARD FACTORY WORKER LAB BLOOD ORDERABLES F inal Result Performing Organization Address [facility] de Phone Number [facility] [place] [address] * Magnesium (05/14/2024 7:00 AM RIVET HOLE MACHINE OPERATOR) [facility] Magnesium 1.9 1.4 - 2.5 mg/dL Blood 05/14/2024 7:00 AM RIVET HOLE MACHINE OPERATOR 05/14/2024 7:37 AM RIVET HOLE MACHINE OPERATOR Debby Gaona PARTICLEBOARD FACTORY WORKER LAB BLOOD ORDERABLES F inal Result Performing Organization Address [facility] de Phone Number [facility] [place] [address] * (ABNORMAL) Basic metabolic panel (05/14/2024 7:00 AM RIVET HOLE MACHINE OPERATOR) [facility] Sodium 145 135 - 145 mmol/L Potassium, pl 4.8 3.3 - 4.9 mmol/L [facility] Chloride 105 97 - 110 mmol/L [facility] CO2 37(H) 22 - 32 mmol/L [facility] Anion gap 3 2 - 15 mmol/L [facility] BUN 16 6 - 25 mg/dL [facility] Creatinine 0.73 0.60 - 1.10 mg/dL [facility] Glucose 87 70 - 199 mg/dL [facility] Comment: Interpretive Data Fasting glucose >/= 126 mg/dl is diagnostic for diabetes. Fasting is defined as no caloric intake for at least 8 hours. Fasting glucose between 100 mg/dl to 125 mg/dl is diagnostic of prediabetes. In a patient with classic symptoms of hyperglycemia or hyperglycemic crisis, a random glucose >/= 200 mg/dl is diagnostic for diabetes. In the absence of unequivocal hyperglycemia, results should be confirmed by repeat testing. The classification and Diagnosis of Diabetes Diabetes Care 2021; 46: S19-S40. Current interpretive data was last revised 2022. Calcium 8.8 8.5 - 10.3 mg/dL [facility] Blood 05/14/2024 7:00 AM RIVET HOLE MACHINE OPERATOR 05/14/2024 7:37 AM RIVET HOLE MACHINE OPERATOR Debby Gaona NP LAB BLOOD ORDERABLES F inal Result [facility] [place] [address] * ECG 12 lead (05/13/2024 9:31 PM RIVET HOLE MACHINE OPERATOR) Pathologist [facility] Ventricular Rate EKG/Min 108 BPM [facility] Atrial Rate 102 BPM [facility] QRS-Interval (MSEC) 84 ms [facility] QT-Interval (MSEC) 310 ms [facility] QTc 415 ms [facility] R [place] 97 degrees [facility] T [place] -12 degrees [facility] Diagnosis Atrial fibrillation Low voltage QRS Possible Anterolateral infarct , age undetermined Abnormal ECG No previous ECGs available Confirmed by CHRISTY HYATT M.D ([id number]) on 05/14/2024 2:15:07 PM [facility] 05/13/2024 9:31 PM RIVET HOLE MACHINE OPERATOR 05/14/2024 2:15 PM RIVET HOLE MACHINE OPERATOR us Christiano Ko MD ECG ORDERABLES Final Resul t [facility] * Critical Result Callback Chemistry (05/13/2024 8:11 PM RIVET HOLE MACHINE OPERATOR) Date Notified [id number] Time Notified 838 [facility] TestName pCO2 Chao [facility] Called/Read Back Kashif Jarquin [facility] Credentials RN [facility] Called By SB [facility] Blood 05/13/2024 8:11 PM RIVET HOLE MACHINE OPERATOR 05/13/2024 8:24 PM RIVET HOLE MACHINE OPERATOR us Eunice Lynn MD LAB BLOOD ORDERABLES Final Re sult Performing Organization Address [facility] Co de Phone Number [facility] [place] [address] * (ABNORMAL) Blood gas, venous (05/13/2024 8:11 PM RIVET HOLE MACHINE OPERATOR) pH, Venous 7.27(L) 7.32 - 7.43 PCO2, Venous 80(C) 40 - 50 mmHg [facility] PO2, Venous 58 mmHg [facility] Comment: Interpretive Data No Reference Range Established Current Interpretive Data was last revised on 2017. HCO3 Venous, Calculated 38(H) 20 - 30 mmol/L [facility] BE, venous 7 mmol/L [facility] Comment: Interpretive Data No Reference Range Established Current Interpretive Data was last revised on 2017. Blood 05/13/2024 8:11 PM RIVET HOLE MACHINE OPERATOR 05/13/2024 8:24 PM RIVET HOLE MACHINE OPERATOR us Eunice Lynn MD LAB BLOOD ORDERABLES Final Re sult Performing Organization Address [facility] Co de Phone Number [facility] Department [place] [address] * (ABNORMAL) Blood gas, venous (05/13/2024 5:49 PM RIVET HOLE MACHINE OPERATOR) pH, Venous 7.28(L) 7.32 - 7.43 PCO2, Venous 74(H) 40 - 50 mmHg [facility] PO2, Venous 73 mmHg [facility] Comment: Interpretive Data No Reference Range Established Current Interpretive Data was last revised on 2017. HCO3 Venous, Calculated 36(H) 20 - 30 mmol/L [facility] BE, venous 6 mmol/L [facility] Comment: Interpretive Data No Reference Range Established Current Interpretive Data was last revised on 2017. Blood 05/13/2024 5:49 PM RIVET HOLE MACHINE OPERATOR 05/13/2024 5:55 PM RIVET HOLE MACHINE OPERATOR us Eunice Lynn MD LAB BLOOD ORDERABLES Final Re sult [facility] Department [place] [address] * eGFR (05/13/2024 5:13 PM RIVET HOLE MACHINE OPERATOR) eGFR 85 >=60 mL/min/1. 73 m2 Comment: Interpretive Data Reference Interval Normal >/= 90 mL/min/1.73m2 Mildly decreased* 60 - 89 mL/min/1.73m2 Mildly to moderately decreased 45 - 59 mL/min/1.73m2 Moderately to severely decreased 30 - 44 mL/min/1.73m2 Severely decreased 15 - 29 mL/min/1.73m2 Kidney Failure < 15 mL/min/1.73m2 *Relative to young adult level Estimated glomerular filtration rate is determined by the 2020 CKD-EPI equation recommended by the National Kid[employer] (A Unifying Approach to GFR Estimation: Recommendations of the NKF-ASK Task Force on Reassessing the Inclusion of Race in Diagnosing Kidney Disease, JASN 2020). The CKD-EPI equation should not be used for patients with unstable renal function and has not been validated in children and those over 70. Current interpretive data was last reviewed 2021. Blood 05/13/2024 5:13 PM RIVET HOLE MACHINE OPERATOR 05/13/2024 5:28 PM RIVET HOLE MACHINE OPERATOR Damian Stephen MD LAB BLOOD ORDERABLES Final Res ult Performing Organization Address [facility] Co de Phone Number [facility] [place] [address] * (ABNORMAL) Blood gas, venous (05/13/2024 5:13 PM RIVET HOLE MACHINE OPERATOR) pH, Venous 7.30(L) 7.32 - 7.43 PCO2, Venous 71(H) 40 - 50 mmHg [facility] PO2, Venous 117 mmHg [facility] Comment: Interpretive Data No Reference Range Established Current Interpretive Data was last revised on 2017. HCO3 Venous, Calculated 36(H) 20 - 30 mmol/L [facility] BE, venous 6 mmol/L [facility] Comment: Interpretive Data No Reference Range Established Current Interpretive Data was last revised on 2017. Blood 05/13/2024 5:13 PM RIVET HOLE MACHINE OPERATOR 05/13/2024 5:18 PM RIVET HOLE MACHINE OPERATOR Damian Stephen MD LAB BLOOD ORDERABLES Final Res ult Performing Organization Address [facility] Co de Phone Number [facility] [place] [address] * (ABNORMAL) Comprehensive metabolic panel (05/13/2024 5:13 PM RIVET HOLE MACHINE OPERATOR) Sodium 146(H) 135 - 145 mmol/L Potassium, pl 4.4 3.3 - 4.9 mmol/L [facility] Chloride 106 97 - 110 mmol/L [facility] CO2 32 22 - 32 mmol/L [facility] Anion gap 8 2 - 15 mmol/L [facility] BUN 17 6 - 25 mg/dL [facility] Creatinine 0.73 0.60 - 1.10 mg/dL [facility] Glucose 89 70 - 199 mg/dL [facility] Comment: Interpretive Data Fasting glucose >/= 126 mg/dl is diagnostic for diabetes. Fasting is defined as no caloric intake for at least 8 hours. Fasting glucose between 100 mg/dl to 125 mg/dl is diagnostic of prediabetes. In a patient with classic symptoms of hyperglycemia or hyperglycemic crisis, a random glucose >/= 200 mg/dl is diagnostic for diabetes. In the absence of unequivocal hyperglycemia, results should be confirmed by repeat testing. The classification and Diagnosis of Diabetes Diabetes Care 2021; 46: S19-S40. Current interpretive data was last revised 2022. Calcium 9.0 8.5 - 10.3 mg/dL [facility] Bilirubin, total 1.5(H) 0.1 - 1.2 mg/dL [facility] Protein, pl 6.1(L) 6.5 - 8.5 g/dL [facility] Albumin 3.4(L) 3.5 - 5.0 g/dL [facility] Alk phos 54 40 - 130 Units/L [facility] ALT 15 7 - 45 Units/L [facility] AST 26 10 - 45 Units/L [facility] Blood 05/13/2024 5:13 PM RIVET HOLE MACHINE OPERATOR 05/13/2024 5:28 PM RIVET HOLE MACHINE OPERATOR us Damian Stephen MD LAB BLOOD ORDERABLES Final Res ult [facility] [place] [address] * XR Wrist Left 3 or More Views (05/13/2024 5:11 PM RIVET HOLE MACHINE OPERATOR) Anatomical Region Laterality Modality Upper Extremities, Wrist Left Compute d Radiography 05/13/2024 5:21 PM RIVET HOLE MACHINE OPERATOR Impressions 05/13/2024 5:24 PM RIVET HOLE MACHINE OPERATOR 1. Comminuted intra-articular fracture of the left distal radius with mild articular surface depression. 2. Apparent widening of the left scapholunate interval may be seen in the setting of ligamentous injury. Dictated by: Viraj Connors MD PHD The radiology attending physician has personally reviewed this study, and had reviewed and/or edited this written report and agrees with it. Electronically signed by: Dixon Valencia M.D. Narrative 05/13/2024 5:24 PM RIVET HOLE MACHINE OPERATOR EXAMINATION: XR HAND LEFT 3 OR MORE VIEWS, XR WRIST LEFT 3 OR MORE VIEWS HISTORY: Left hand fracture. FINDINGS: No available comparison. Comminuted intra-articular fracture of the left distal radius with mild articular surface depression. There is also widening of the left scapholunate interval. There are old healed fracture deformities of the first metacarpal neck and proximal phalanx. Moderate first carpometacarpal and triscaphe osteoarthritis. There is impingement of the distal radius proximal to the sigmoid notch by the distal ulna which may be seen in the setting of ulnar impingement syndrome. There is diffuse soft tissue swelling of the left wrist. Procedure Note Dixon Valencia MD - 05/13/2024 EXAMINATION: XR HAND LEFT 3 OR MORE VIEWS, XR WRIST LEFT 3 OR MORE VIEWS HISTORY: Left hand fracture. FINDINGS: No available comparison. Comminuted intra-articular fracture of the left distal radius with mild articular surface depression. There is also widening of the left scapholunate interval. There are old healed fracture deformities of the first metacarpal neck and proximal phalanx. Moderate first carpometacarpal and triscaphe osteoarthritis. There is impingement of the distal radius proximal to the sigmoid notch by the distal ulna which may be seen in the setting of ulnar impingement syndrome. There is diffuse soft tissue swelling of the left wrist. IMPRESSION: 1. Comminuted intra-articular fracture of the left distal radius with mild articular surface depression. 2. Apparent widening of the left scapholunate interval may be seen in the setting of ligamentous injury. Dictated by: Viraj Connors MD PHD The radiology attending physician has personally reviewed this study, and had reviewed and/or edited this written report and agrees with it. Electronically signed by: Dixon Valencia M.D. Damian Stephen MD IMG XR PROCEDURES Final Result * XR Hand Left 3 or More Views (05/13/2024 5:11 PM RIVET HOLE MACHINE OPERATOR) Anatomical Region Laterality Modality Upper Extremities, Hand Left Computed Radiography 05/13/2024 5:21 PM RIVET HOLE MACHINE OPERATOR Impressions 05/13/2024 5:24 PM RIVET HOLE MACHINE OPERATOR 1. Comminuted intra-articular fracture of the left distal radius with mild articular surface depression. 2. Apparent widening of the left scapholunate interval may be seen in the setting of ligamentous injury. Dictated by: Viraj Connors MD PHD The radiology attending physician has personally reviewed this study, and had reviewed and/or edited this written report and agrees with it. Electronically signed by: Dixon Valencia M.D. Narrative 05/13/2024 5:24 PM RIVET HOLE MACHINE OPERATOR EXAMINATION: XR HAND LEFT 3 OR MORE VIEWS, XR WRIST LEFT 3 OR MORE VIEWS HISTORY: Left hand fracture. FINDINGS: No available comparison. Comminuted intra-articular fracture of the left distal radius with mild articular surface depression. There is also widening of the left scapholunate interval. There are old healed fracture deformities of the first metacarpal neck and proximal phalanx. Moderate first carpometacarpal and triscaphe osteoarthritis. There is impingement of the distal radius proximal to the sigmoid notch by the distal ulna which may be seen in the setting of ulnar impingement syndrome. There is diffuse soft tissue swelling of the left wrist. Procedure Note Dixon Valencia MD - 05/13/2024 EXAMINATION: XR HAND LEFT 3 OR MORE VIEWS, XR WRIST LEFT 3 OR MORE VIEWS HISTORY: Left hand fracture. FINDINGS: No available comparison. Comminuted intra-articular fracture of the left distal radius with mild articular surface depression. There is also widening of the left scapholunate interval. There are old healed fracture deformities of the first metacarpal neck and proximal phalanx. Moderate first carpometacarpal and triscaphe osteoarthritis. There is impingement of the distal radius proximal to the sigmoid notch by the distal ulna which may be seen in the setting of ulnar impingement syndrome. There is diffuse soft tissue swelling of the left wrist. IMPRESSION: 1. Comminuted intra-articular fracture of the left distal radius with mild articular surface depression. 2. Apparent widening of the left scapholunate interval may be seen in the setting of ligamentous injury. Dictated by: Viraj Connors MD PHD The radiology attending physician has personally reviewed this study, and had reviewed and/or edited this written report and agrees with it. Electronically signed by: Vincent Juan David Mellnick, M.D. us Damian Julian Stephen MD IMG XR PROCEDURES Final Result * Drugs of Abuse Screen, Urine with Reflex Confirmation (05/13/2024 3:11 PM RIVET HOLE MACHINE OPERATOR) Amphetamine, ur Not Detected CutOff 500ng/mL Comment: Interpretive Data - Amphetamines: Samples containing greater than 500 ng/mL d-methamphetamine or other cross-reacting amphetamine compounds are reported as positive. Amphetamine immunoassays are subject to significant false positive rates due to cross-reactivity of non-amphetamine drugs. Confirmatory testing required for definitive results. Current Interpretive Data was last reviewed 2022. Barbiturates, ur Not Detected CutOff 200ng/mL [facility] Comment: Interpretive Data - Barbiturates: Samples containing greater than 200 ng/mL secobarbital or other cross-reacting barbiturate compounds are reported as positive. False positive and false negative results are possible. Confirmatory testing required for definitive results. Current Interpretive Data was last reviewed 2022. Benzodiazepines, ur Not Detected CutOff 100ng/mL [facility] Comment: Interpretive Data - Benzodiazepines: Samples containing greater than 100 ng/mL nordiazepam or other cross-reacting compounds are reported as positive. False positive and false negative results are possible. Confirmatory testing required for definitive results. Current Interpretive Data was last reviewed 2022. Cannabinoids, ur Not Detected CutOff 50 ng/mL [facility] Comment: Interpretive Data - Cannabinoids: Samples containing greater than 50 ng/mL delta-9 THC -COOH or other cross- reacting compounds are reported as positive. False positive and false negative results are possible. Confirmatory testing required for definitive results. Current Interpretive Data was last reviewed 2022. Cocaine, ur Not Detected CutOff 150ng/mL [facility] Comment: Interpretive Data - Cocaine: Samples containing greater than 150 ng/mL benzoylecgonine or other cross- reacting compounds are reported as positive. False positive and false negative results are possible. Confirmatory testing required for definitive results. Current Interpretive Data was last reviewed 2022. Fentanyl, Ur Not Detected CutOff 5 ng/mL [facility] Comment: Interpretive Data - Fentanyl: Samples containing greater than 5 ng/mL norfentanyl, fentanyl, or other cross-reacting fentanyl compounds are reported as positive. False positive and false negative results are possible. Confirmatory testing required for definitive results. Current Interpretive Data was last reviewed 2023. Methadone, ur Not Detected CutOff 300ng/mL [facility] Comment: Interpretive Data - Methadone: Samples containing greater than 300 ng/mL d,l-methadone or other cross-reacting compounds are reported as positive. False positive and false negative results are possible. Confirmatory testing required for definitive results. Current Interpretive Data was last reviewed 2022. Opiates, ur Not Detected CutOff 300ng/mL [facility] Comment: Interpretive Data - Opiates: Samples containing greater than 300 ng/mL morphine or other cross-reacting compounds are reported as positive. False positive and false negative results are possible. Confirmatory testing required for definitive results. Current Interpretive Data was last reviewed 2022. Oxycodone, ur Not Detected CutOff 100ng/mL [facility] Comment: Interpretive Data - Oxycodone: Samples containing greater than 100 ng/mL oxycodone or other cross-reacting compounds are reported as positive. False positive and false negative results are possible. Confirmatory testing required for definitive results. Current Interpretive Data was last reviewed 2022. Phencyclidine, ur Not Detected CutOff 25 ng/mL [facility] Comment: Interpretive Data - Phencyclidine: Samples containing greater than 25 ng/mL phencyclidine or other cross-reacting compounds are reported as positive. False positive and false negative results are possible. Confirmatory testing required for definitive results. Current Interpretive Data was last reviewed 2022. Urine Creatinine 60 mg/dL [facility] Comment: Interpretive Data Urine Creatinine: < 10 mg/dL is extremely dilute = or > 10 but < 20 mg/dL is dilute = or > 20 mg/dL is normal Current Interpretive Data was last revised on 2017. Urine 05/13/2024 3:11 PM RIVET HOLE MACHINE OPERATOR 05/13/2024 4:54 PM RIVET HOLE MACHINE OPERATOR Narrative [facility] - 05/13/2024 6:24 PM RIVET HOLE MACHINE OPERATOR Drug of Abuse screening is performed by immunoassay for medical purposes only. This is not to be used for Pain Management purposes. If Detected, confirmation testing will be performed for Amphetamines, Cocaine, Fentanyl, Methadone, Opiates, Oxycodone or Phencyclidine. Edwige Strickland MD LAB URINE ORDERABLES Final Result Performing Organization Address [facility] Co de Phone Number [facility] [place] [address] * Critical Result Callback Chemistry (05/13/2024 3:11 PM RIVET HOLE MACHINE OPERATOR) Date Notified [id number] Time Notified 1658 [facility] TestName pCO2 Chao [facility] Called/Read Back Damian Stephen [facility] Credentials [facility] Called By OCTAVIO [facility] Blood 05/13/2024 3:11 PM RIVET HOLE MACHINE OPERATOR 05/13/2024 4:49 PM RIVET HOLE MACHINE OPERATOR us Eunice Lynn MD LAB BLOOD ORDERABLES Final Re sult Performing Organization Address [facility] Co de Phone Number [facility] [place] [address] * (ABNORMAL) Blood gas, venous (05/13/2024 3:11 PM RIVET HOLE MACHINE OPERATOR) pH, Venous 7.29(L) 7.32 - 7.43 PCO2, Venous 75(C) 40 - 50 mmHg [facility] PO2, Venous 49 mmHg [facility] Comment: Interpretive Data No Reference Range Established Current Interpretive Data was last revised on 2017. HCO3 Venous, Calculated 37(H) 20 - 30 mmol/L [facility] BE, venous 7 mmol/L [facility] Comment: Interpretive Data No Reference Range Established Current Interpretive Data was last revised on 2017. Blood 05/13/2024 3:11 PM RIVET HOLE MACHINE OPERATOR 05/13/2024 4:49 PM RIVET HOLE MACHINE OPERATOR Eunice Lynn MD LAB BLOOD ORDERABLES Final Re sult Performing Organization Address [facility] Co de Phone Number [facility] [place] [address] * (ABNORMAL) POC Blood Gas and Chemistries, Venous - (05/13/2024 11:26 AM RIVET HOLE MACHINE OPERATOR) pH, Chao POC 7.34 7.32 - 7.43 pCO2, chao POC 69(H) 40 - 50 mmHg [facility] pO2, chao POC 58 mmHg [facility] Na, POC 144 135 - 145 mmol/L [facility] K POC 4.5 3.3 - 4.9 mmol/L [facility] Comment: Interpretive Data Not all point of care methods assess for hemolysis. Confirm with instrument and retest K+ if not consistent with clinical signs and symptoms. Current Interpretive Data was last revised on 2023. Cl, POC 107 97 - 110 mmol/L [facility] Ionized Ca, POC 5.05 4.50 - 5.10 mg/dL [facility] Glucose, POC 91 70 - 199 mg/dL [facility] Lactate, POC 0.7 0.7 - 2.0 mmol/L [facility] MetHb, Chao POC 0.4 0.0 - 1.9 % [facility] O2 Sat, Chao POC (Katie) 90 % [facility] Base excess, POC 9.6 mmol/L [facility] Hct, POC 29.0(L) 36.3 - 45.3 % [facility] Total Hb, POC 9.5(L) 11.9 - 15.5 g/dL [facility] Blood 05/13/2024 11:2 6 AM RIVET HOLE MACHINE OPERATOR 05/13/2024 11:26 AM RIVET HOLE MACHINE OPERATOR us Eunice Lynn MD LAB POCT ORDERABLES - DEVICE Final Result [facility] [place] [address] * (ABNORMAL) Blood gas, venous (05/13/2024 11:23 AM RIVET HOLE MACHINE OPERATOR) pH, Venous 7.32 7.32 - 7.43 PCO2, Venous 67(H) 40 - 50 mmHg [facility] PO2, Venous 61 mmHg [facility] Comment: Interpretive Data No Reference Range Established Current Interpretive Data was last revised on 2017. HCO3 Venous, Calculated 35(H) 20 - 30 mmol/L [facility] BE, venous 6 mmol/L [facility] Comment: Interpretive Data No Reference Range Established Current Interpretive Data was last revised on 2017. Blood 05/13/2024 11:2 3 AM RIVET HOLE MACHINE OPERATOR 05/13/2024 11:44 AM RIVET HOLE MACHINE OPERATOR us Eunice Lynn MD LAB BLOOD ORDERABLES Final Re sult [facility] [place] [address] * AR CRITICAL CARE ILL/INJURED PATIENT INIT 30-74 MIN (05/13/2024 9:51 AM RIVET HOLE MACHINE OPERATOR) Narrative Eunice Lynn MD - 05/13/2024 9:51 AM RIVET HOLE MACHINE OPERATOR Eunice Lynn MD 05/15/2024 10:07 AM Critical Care Performed by: Eunice Lynn MD Authorized by: Eunice Lynn MD Critical care provider statement: As reflected in the history, physical exam, orders, notes, and/or MDM, I was personally present while the patient was critically ill and provided critical care services for 40 minutes, excluding time involved in separately billable procedures. Critical care was necessary to treat or prevent imminent or life-threatening deterioration of the following condition(s): acute intracranial hemorrhage hypercarbic respiratory failure Critical care was time spent by me providing the following: serial bedside patient exams and interpretation of bedside monitors, imaging, and arterial/venous lab draws supplemental oxygen and non-invasive positive pressure ventilator management us Eunice Lynn MD IN CLINIC/BEDSIDE ORDERABLES Final Result * (ABNORMAL) POC Blood Gas and Chemistries, Venous - (05/13/2024 8:37 AM RIVET HOLE MACHINE OPERATOR) pH, Chao POC 7.32 7.32 - 7.43 pCO2, chao POC 75(C) 40 - 50 mmHg [facility] pO2, chao POC 40 mmHg [facility] Na, POC 144 135 - 145 mmol/L [facility] K POC 4.7 3.3 - 4.9 mmol/L [facility] Comment: Interpretive Data Not all point of care methods assess for hemolysis. Confirm with instrument and retest K+ if not consistent with clinical signs and symptoms. Current Interpretive Data was last revised on 2023. Cl, POC 107 97 - 110 mmol/L [facility] Ionized Ca, POC 5.05 4.50 - 5.10 mg/dL [facility] Glucose, POC 96 70 - 199 mg/dL [facility] Lactate, POC 0.7 0.7 - 2.0 mmol/L [facility] MetHb, Chao POC 0.3 0.0 - 1.9 % [facility] O2 Sat, Chao POC (Katie) 66 % [facility] Base excess, POC 10.4 mmol/L [facility] Hct, POC 30.0(L) 36.3 - 45.3 % [facility] Total Hb, POC 10.0(L) 11.9 - 15.5 g/dL [facility] Blood 05/13/2024 8:37 AM RIVET HOLE MACHINE OPERATOR 05/13/2024 8:37 AM RIVET HOLE MACHINE OPERATOR Christiano Ko MD LAB POCT ORDERABLES - DEVIC E Final Result [facility] [place] [address] * AR CRITICAL CARE ILL/INJURED PATIENT INIT 30-74 MIN (05/13/2024 6:57 AM RIVET HOLE MACHINE OPERATOR) Narrative Edwige Strickland MD - 05/13/2024 6:57 AM RIVET HOLE MACHINE OPERATOR Edwige Strickland MD 05/13/2024 6:58 AM Critical Care Performed by: Edwige Strickland MD Authorized by: Edwige Strickland MD Critical care provider statement: As reflected in the history, physical exam, orders, notes, and/or MDM, I was personally present while the patient was critically ill and provided critical care services for 40 minutes, excluding time involved in separately billable procedures. Critical care was necessary to treat or prevent imminent or life-threatening deterioration of the following condition(s): unstable vital signs level 1 trauma and traumatic brain injury Critical care was time spent by me providing the following: continuous telemetry, continuous pulse oximetry, continuous capnography, interpretation of bedside monitors, imaging, and arterial/venous lab draws and serial bedside patient exams frequent neurologic exams acute pain control I provided emergent necessary critical care medicine services to this patient. I ordered and reviewed test results and/or imaging studies. I spent time discussing the management of this critically ill patient with consultants and the medical staff. I spent time discussing the management and therapeutic options for this critically ill patient with the patient themselves or with the appropriate designated surrogate decision-maker. I spent time documenting in the medical record. I admitted this patient to an Intensive Care unit (ICU) and discussed management with the admitting team. Edwige Strickland MD IN CLINIC/BEDSIDE ORD ERABLES Final Result * Heparin anti factor Xa activity (05/13/2024 6:45 AM RIVET HOLE MACHINE OPERATOR) Anti Factor Xa <0.10 IUnits/mL Comment: Interpretive Data Enoxaparin therapeutic range (peak): VTE treatment, Q12hr dosin.60-1.00 IUnits/mL VTE treatment, Q24hr dosin.00-2.00 IUnits/mL Q24hr dosing for renal impairment (CrCl <30 mL/min): 0.60-1.00 IUnits/mL VTE prevention: 0.10-0.40 IUnits/mL - Anti-Xa therapeutic ranges apply to blood samples drawn 4 hours after last dose (peak). - Unfractionated heparin (UFH) therapeutic range: 0.30-0.70 IUnits/mL - Direct factor Xa inhibitors (rivaroxaban, apixaban): Results must be interpreted qualitatively. No activity detected suggests little anticoagulant activity. - In severe antithrombin deficiency, anti-Xa measurement may be inaccurate. - Interpretive guidelines developed in adult populations. Interpretive guidelines for pediatric patients have not been rigorously defined. - Current interpretive data was last revised on 2018. Blood 05/13/2024 6:45 AM RIVET HOLE MACHINE OPERATOR 05/13/2024 6:56 AM RIVET HOLE MACHINE OPERATOR us Efren Castellanos MD LAB BLOOD ORDERABLE S Final Result [facility] Department [place] [address] * CT Head WO Contrast (05/13/2024 5:53 AM RIVET HOLE MACHINE OPERATOR) Anatomical Region Laterality Modality Head and Neck N/A Computed Tomogra phy 05/13/2024 6:11 AM RIVET HOLE MACHINE OPERATOR Impressions 05/13/2024 8:26 AM RIVET HOLE MACHINE OPERATOR 1. Unchanged subcentimeter focus of hyperattenuation within the splenium of the left corpus callosum, which is favored to represent a intraparenchymal hemorrhage in the setting of trauma. No new intracranial hemorrhage. 2. Redemonstrated right orbital floor blowout fracture with herniation of the extraconal fat. This is better evaluated on prior CT of the face. 3. Unchanged moderate right periorbital hematoma. No globe rupture. ADDENDUM - This addendum is being placed on the report for a time dependent finding on a patient who is still in the emergency room (3B). In addition to intraparenchymal hemorrhage, the focus of hyperattenuation described in impression #1 within the splenium of the left corpus callosum may also represent a cavernoma or conceivably a hemorrhagic neoplasm. Recommend further evaluation with MRI of the brain with and without contrast when clinically appropriate. This addendum was relayed to Dr. Naveen Samson by Dr. Willem Person on 05/13/2024 at 7:11 AM. Dictated by: Willem Person MD The radiology attending physician has personally reviewed this study, and had reviewed and/or edited this written report and agrees with it. Electronically signed by: Meagan Garcia M.D. Narrative 05/13/2024 8:26 AM RIVET HOLE MACHINE OPERATOR EXAMINATION: CT head without contrast HISTORY: 78-year-old female transferred for inferior orbital wall fracture after ground-level fall. TECHNIQUE: CT of the head was performed with images acquired from skull base to vertex without intravenous contrast. COMPARISON: 05/12/2024 FINDINGS: Again seen is a 9 mm focus of hyperattenuation within the splenium of the left corpus callosum, which is favored to represent intraparenchymal hemorrhage. This is not significantly changed compared to prior. There is no mass effect or midline shift. No new intracranial hemorrhage. Ventricles are of normal size and morphology. The neely-white differentiation is maintained. Slightly prominent extra-axial spaces. Possible small arachnoid cysts along the left parieto-occipital sulci. There is bilateral proptosis. There is a moderate size right periorbital hematoma, which is similar to prior. Again seen is a right inferior orbital wall blowout fracture with herniation of the extraconal fat into the right maxillary sinus. This is better evaluated on prior CT of the face. There is mucosal thickening within the paranasal sinuses. There is a small amount of blood products and mucus within the right maxillary sinus. Calcification of the cavernous internal carotid arteries. Mastoid air cells are clear. Procedure Note Meagan Garcia MD - 05/13/2024 EXAMINATION: CT head without contrast HISTORY: 78-year-old female transferred for inferior orbital wall fracture after ground-level fall. TECHNIQUE: CT of the head was performed with images acquired from skull base to vertex without intravenous contrast. COMPARISON: 05/12/2024 FINDINGS: Again seen is a 9 mm focus of hyperattenuation within the splenium of the left corpus callosum, which is favored to represent intraparenchymal hemorrhage. This is not significantly changed compared to prior. There is no mass effect or midline shift. No new intracranial hemorrhage. Ventricles are of normal size and morphology. The neely-white differentiation is maintained. Slightly prominent extra-axial spaces. Possible small arachnoid cysts along the left parieto-occipital sulci. There is bilateral proptosis. There is a moderate size right periorbital hematoma, which is similar to prior. Again seen is a right inferior orbital wall blowout fracture with herniation of the extraconal fat into the right maxillary sinus. This is better evaluated on prior CT of the face. There is mucosal thickening within the paranasal sinuses. There is a small amount of blood products and mucus within the right maxillary sinus. Calcification of the cavernous internal carotid arteries. Mastoid air cells are clear. IMPRESSION: 1. Unchanged subcentimeter focus of hyperattenuation within the splenium of the left corpus callosum, which is favored to represent a intraparenchymal hemorrhage in the setting of trauma. No new intracranial hemorrhage. 2. Redemonstrated right orbital floor blowout fracture with herniation of the extraconal fat. This is better evaluated on prior CT of the face. 3. Unchanged moderate right periorbital hematoma. No globe rupture. ADDENDUM - This addendum is being placed on the report for a time dependent finding on a patient who is still in the emergency room (3B). In addition to intraparenchymal hemorrhage, the focus of hyperattenuation described in impression #1 within the splenium of the left corpus callosum may also represent a cavernoma or conceivably a hemorrhagic neoplasm. Recommend further evaluation with MRI of the brain with and without contrast when clinically appropriate. This addendum was relayed to Dr. Naveen Samson by Dr. Willem Person on 05/13/2024 at 7:11 AM. Dictated by: Willem Person MD The radiology attending physician has personally reviewed this study, and had reviewed and/or edited this written report and agrees with it. Electronically signed by: Meagan Garcia M.D. Efren Castellanos MD IMG CT PROCEDURES F inal Result * (ABNORMAL) Blood gas, venous (05/13/2024 3:38 AM RIVET HOLE MACHINE OPERATOR) pH, Venous 7.29(L) 7.32 - 7.43 PCO2, Venous 73(H) 40 - 50 mmHg [facility] PO2, Venous 58 mmHg [facility] Comment: Interpretive Data No Reference Range Established Current Interpretive Data was last revised on 2017. HCO3 Venous, Calculated 36(H) 20 - 30 mmol/L [facility], venous 6 mmol/L [facility] Comment: Interpretive Data No Reference Range Established Current Interpretive Data was last revised on 2017. Blood 05/13/2024 3:38 AM RIVET HOLE MACHINE OPERATOR 05/13/2024 3:44 AM RIVET HOLE MACHINE OPERATOR Edwige Strickland MD LAB BLOOD ORDERABLES Final Result Performing Organization Address [facility] de Phone Number [facility] Department [place] [address] * XR Outside Reference (05/13/2024 3:26 AM RIVET HOLE MACHINE OPERATOR) Impressions [facility] - 05/13/2024 3:26 AM RIVET HOLE MACHINE OPERATOR These images are for Reference purposes only and have not been reviewed by [facility]. There will be no report generated by a [facility] Radiologist. Narrative [facility] - 05/13/2024 3:26 AM RIVET HOLE MACHINE OPERATOR EXAMINATION: Images For Reference Purposes Only Efren Castellanos MD IMG XR PROCEDURES F inal Result Performing Organization Address [facility] de Phone Number [email or web address] * XR Outside Reference (05/13/2024 3:24 AM RIVET HOLE MACHINE OPERATOR) Impressions [facility] - 05/13/2024 3:24 AM RIVET HOLE MACHINE OPERATOR These images are for Reference purposes only and have not been reviewed by [facility]. There will be no report generated by a [facility] Radiologist. Narrative [facility] - 05/13/2024 3:24 AM RIVET HOLE MACHINE OPERATOR EXAMINATION: Images For Reference Purposes Only Efren Castellanos MD IMG XR PROCEDURES F inal Result Performing Organization Address [facility] de Phone Number [email or web address] * XR Outside Reference (05/13/2024 3:22 AM RIVET HOLE MACHINE OPERATOR) Impressions [facility] - 05/13/2024 3:22 AM RIVET HOLE MACHINE OPERATOR These images are for Reference purposes only and have not been reviewed by [facility]. There will be no report generated by a [facility] Radiologist. Narrative [facility] - 05/13/2024 3:22 AM RIVET HOLE MACHINE OPERATOR EXAMINATION: Images For Reference Purposes Only Efren Castellanos MD IMG XR PROCEDURES F inal Result Performing Organization Address [facility] Co de Phone Number [email or web address] * XR Outside Reference (05/13/2024 3:20 AM RIVET HOLE MACHINE OPERATOR) Impressions [facility] - 05/13/2024 3:20 AM RIVET HOLE MACHINE OPERATOR These images are for Reference purposes only and have not been reviewed by [facility]. There will be no report generated by a [facility] Radiologist. Narrative [facility] - 05/13/2024 3:20 AM RIVET HOLE MACHINE OPERATOR EXAMINATION: Images For Reference Purposes Only Efren Castellanos MD IMG XR PROCEDURES F inal Result Performing Organization Address [facility] de Phone Number [email or web address] * Neuro CT Outside Consult (05/13/2024 3:17 AM RIVET HOLE MACHINE OPERATOR) Anatomical Region Laterality Modality N/A Computed Tomogra phy 05/13/2024 5:34 AM RIVET HOLE MACHINE OPERATOR Impressions 05/13/2024 8:26 AM RIVET HOLE MACHINE OPERATOR 1. Focal 8 mm hyperdensity in the splenium of the corpus callosum. The differential primarily includes cavernoma or hemorrhagic metastasis, less likely an intraparenchymal hemorrhage based on its location. Recommend further evaluation with brain MRI. 2. Right orbit floor blowout fracture with herniation of the extraconal fat. No CT evidence of entrapment, but recommend clinical correlation with signs of entrapment. Right periorbital hematoma. 3. No evidence of acute fracture of the cervical spine. 4. Limited evaluation due to artifact and technique. Findings were communicated to Jasmin Baker by Wilfrid Garcia MD on 05/13/2024, 5:30 AM. The findings, conclusions and recommendations within this report do not replace the initial findings, conclusions and recommendations made at the facility where the study was performed based upon the imaging and clinical condition at that time. Comparison with the prior report and clinical history is necessary. The provided images may or may not represent the [place] source data set and thus may contain changes that may lower the accuracy of this second-opinion interpretation. Dictated by: Wilfrid Garcia MD The radiology attending physician has personally reviewed this study, and had reviewed and/or edited this written report and agrees with it. Electronically signed by: Meagan Garcia M.D. Narrative 05/13/2024 8:26 AM RIVET HOLE MACHINE OPERATOR EXAMINATION: RADIOLOGY CONSULTATION ON OUTSIDE IMAGING STUDY STUDY INITIALLY PERFORMED: 05/12/2024 at [facility]. TYPE OF STUDY: Multiple CT images of the head and face and cervical spine without contrast are provided at the time of this interpretation. CONTRAST ROUTE: No contrast was administered. The protocol was adequate to address the clinical question. The outside final report was not available at the time of this second opinion interpretation. TYPE OF CONSULTATION: Consult on outside imaging study with images submitted through Outside Image Sharing Service DATE OF CONSULTATION: 05/13/2024 5:17 AM HISTORY: Fall, bruising COMPARISON: None available. FINDINGS: Head: Evaluation is limited due to streak artifact. There is a 8 mm focus of hyperdensity which appears intra-axial in the splenium of the corpus callosum (series 2, image 35). No prior imaging is available for comparison. No other definite evidence of hemorrhage is seen. Ventricles are normal in size and configuration. The basilar cisterns are preserved. The neely-white differentiation is not well evaluated. FACE: There is a right inferior orbital floor blowout fracture with herniation of the extraconal fat into the right maxillary sinus. The extraocular muscles do not appear involved. There is right periorbital soft tissue thickening, likely hematoma. This extends inferiorly along the right face. There is no retrobulbar hematoma. The left orbit is normal. No other facial fracture is seen. There are multiple missing teeth. CERVICAL SPINE: Mild anterolisthesis of C2 on C3. Levocurvature of the cervical spine. No acute fracture is identified. Multilevel degenerative disc disease. Bilateral carotid bifurcation atherosclerotic calcifications. No cervical lymphadenopathy. The imaged lung apices are clear. Procedure Note Meagan Garcia MD - 05/13/2024 EXAMINATION: RADIOLOGY CONSULTATION ON OUTSIDE IMAGING STUDY STUDY INITIALLY PERFORMED: 05/12/2024 at [facility]. TYPE OF STUDY: Multiple CT images of the head and face and cervical spine without contrast are provided at the time of this interpretation. CONTRAST ROUTE: No contrast was administered. The protocol was adequate to address the clinical question. The outside final report was not available at the time of this second opinion interpretation. TYPE OF CONSULTATION: Consult on outside imaging study with images submitted through Outside Image Sharing Service DATE OF CONSULTATION: 05/13/2024 5:17 AM HISTORY: Fall, bruising COMPARISON: None available. FINDINGS: Head: Evaluation is limited due to streak artifact. There is a 8 mm focus of hyperdensity which appears intra-axial in the splenium of the corpus callosum (series 2, image 35). No prior imaging is available for comparison. No other definite evidence of hemorrhage is seen. Ventricles are normal in size and configuration. The basilar cisterns are preserved. The neely-white differentiation is not well evaluated. FACE: There is a right inferior orbital floor blowout fracture with herniation of the extraconal fat into the right maxillary sinus. The extraocular muscles do not appear involved. There is right periorbital soft tissue thickening, likely hematoma. This extends inferiorly along the right face. There is no retrobulbar hematoma. The left orbit is normal. No other facial fracture is seen. There are multiple missing teeth. CERVICAL SPINE: Mild anterolisthesis of C2 on C3. Levocurvature of the cervical spine. No acute fracture is identified. Multilevel degenerative disc disease. Bilateral carotid bifurcation atherosclerotic calcifications. No cervical lymphadenopathy. The imaged lung apices are clear. IMPRESSION: 1. Focal 8 mm hyperdensity in the splenium of the corpus callosum. The differential primarily includes cavernoma or hemorrhagic metastasis, less likely an intraparenchymal hemorrhage based on its location. Recommend further evaluation with brain MRI. 2. Right orbit floor blowout fracture with herniation of the extraconal fat. No CT evidence of entrapment, but recommend clinical correlation with signs of entrapment. Right periorbital hematoma. 3. No evidence of acute fracture of the cervical spine. 4. Limited evaluation due to artifact and technique. Findings were communicated to Jasmin Baker by Wilfrid Garcia MD on 05/13/2024, 5:30 AM. The findings, conclusions and recommendations within this report do not replace the initial findings, conclusions and recommendations made at the facility where the study was performed based upon the imaging and clinical condition at that time. Comparison with the prior report and clinical history is necessary. The provided images may or may not represent the [place] source data set and thus may contain changes that may lower the accuracy of this second-opinion interpretation. Dictated by: Wilfrid Garcia MD The radiology attending physician has personally reviewed this study, and had reviewed and/or edited this written report and agrees with it. Electronically signed by: Meagan Garcia M.D. Efren Castellanos MD IMG CT PROCEDURES F inal Result * Neuro CT Outside Consult (05/13/2024 3:13 AM RIVET HOLE MACHINE OPERATOR) Anatomical Region Laterality Modality N/A Computed Tomogra phy 05/13/2024 5:34 AM RIVET HOLE MACHINE OPERATOR Impressions 05/13/2024 8:26 AM RIVET HOLE MACHINE OPERATOR 1. Focal 8 mm hyperdensity in the splenium of the corpus callosum. The differential primarily includes cavernoma or hemorrhagic metastasis, less likely an intraparenchymal hemorrhage based on its location. Recommend further evaluation with brain MRI. 2. Right orbit floor blowout fracture with herniation of the extraconal fat. No CT evidence of entrapment, but recommend clinical correlation with signs of entrapment. Right periorbital hematoma. 3. No evidence of acute fracture of the cervical spine. 4. Limited evaluation due to artifact and technique. Findings were communicated to Jasmin Baker by Wilfrid Garcia MD on 05/13/2024, 5:30 AM. The findings, conclusions and recommendations within this report do not replace the initial findings, conclusions and recommendations made at the facility where the study was performed based upon the imaging and clinical condition at that time. Comparison with the prior report and clinical history is necessary. The provided images may or may not represent the [place] source data set and thus may contain changes that may lower the accuracy of this second-opinion interpretation. Dictated by: Wilfrid Garcia MD The radiology attending physician has personally reviewed this study, and had reviewed and/or edited this written report and agrees with it. Electronically signed by: Meagan Garcia M.D. Narrative 05/13/2024 8:26 AM RIVET HOLE MACHINE OPERATOR EXAMINATION: RADIOLOGY CONSULTATION ON OUTSIDE IMAGING STUDY STUDY INITIALLY PERFORMED: 05/12/2024 at [facility]. TYPE OF STUDY: Multiple CT images of the head and face and cervical spine without contrast are provided at the time of this interpretation. CONTRAST ROUTE: No contrast was administered. The protocol was adequate to address the clinical question. The outside final report was not available at the time of this second opinion interpretation. TYPE OF CONSULTATION: Consult on outside imaging study with images submitted through Outside Image Sharing Service DATE OF CONSULTATION: 05/13/2024 5:17 AM HISTORY: Fall, bruising COMPARISON: None available. FINDINGS: Head: Evaluation is limited due to streak artifact. There is a 8 mm focus of hyperdensity which appears intra-axial in the splenium of the corpus callosum (series 2, image 35). No prior imaging is available for comparison. No other definite evidence of hemorrhage is seen. Ventricles are normal in size and configuration. The basilar cisterns are preserved. The neely-white differentiation is not well evaluated. FACE: There is a right inferior orbital floor blowout fracture with herniation of the extraconal fat into the right maxillary sinus. The extraocular muscles do not appear involved. There is right periorbital soft tissue thickening, likely hematoma. This extends inferiorly along the right face. There is no retrobulbar hematoma. The left orbit is normal. No other facial fracture is seen. There are multiple missing teeth. CERVICAL SPINE: Mild anterolisthesis of C2 on C3. Levocurvature of the cervical spine. No acute fracture is identified. Multilevel degenerative disc disease. Bilateral carotid bifurcation atherosclerotic calcifications. No cervical lymphadenopathy. The imaged lung apices are clear. Procedure Note Meagan Garcia MD - 05/13/2024 EXAMINATION: RADIOLOGY CONSULTATION ON OUTSIDE IMAGING STUDY STUDY INITIALLY PERFORMED: 05/12/2024 at [facility]. TYPE OF STUDY: Multiple CT images of the head and face and cervical spine without contrast are provided at the time of this interpretation. CONTRAST ROUTE: No contrast was administered. The protocol was adequate to address the clinical question. The outside final report was not available at the time of this second opinion interpretation. TYPE OF CONSULTATION: Consult on outside imaging study with images submitted through Outside Image Sharing Service DATE OF CONSULTATION: 05/13/2024 5:17 AM HISTORY: Fall, bruising COMPARISON: None available. FINDINGS: Head: Evaluation is limited due to streak artifact. There is a 8 mm focus of hyperdensity which appears intra-axial in the splenium of the corpus callosum (series 2, image 35). No prior imaging is available for comparison. No other definite evidence of hemorrhage is seen. Ventricles are normal in size and configuration. The basilar cisterns are preserved. The neely-white differentiation is not well evaluated. FACE: There is a right inferior orbital floor blowout fracture with herniation of the extraconal fat into the right maxillary sinus. The extraocular muscles do not appear involved. There is right periorbital soft tissue thickening, likely hematoma. This extends inferiorly along the right face. There is no retrobulbar hematoma. The left orbit is normal. No other facial fracture is seen. There are multiple missing teeth. CERVICAL SPINE: Mild anterolisthesis of C2 on C3. Levocurvature of the cervical spine. No acute fracture is identified. Multilevel degenerative disc disease. Bilateral carotid bifurcation atherosclerotic calcifications. No cervical lymphadenopathy. The imaged lung apices are clear. IMPRESSION: 1. Focal 8 mm hyperdensity in the splenium of the corpus callosum. The differential primarily includes cavernoma or hemorrhagic metastasis, less likely an intraparenchymal hemorrhage based on its location. Recommend further evaluation with brain MRI. 2. Right orbit floor blowout fracture with herniation of the extraconal fat. No CT evidence of entrapment, but recommend clinical correlation with signs of entrapment. Right periorbital hematoma. 3. No evidence of acute fracture of the cervical spine. 4. Limited evaluation due to artifact and technique. Findings were communicated to Jasmin Baker by Wilfrid Garcia MD on 05/13/2024, 5:30 AM. The findings, conclusions and recommendations within this report do not replace the initial findings, conclusions and recommendations made at the facility where the study was performed based upon the imaging and clinical condition at that time. Comparison with the prior report and clinical history is necessary. The provided images may or may not represent the [place] source data set and thus may contain changes that may lower the accuracy of this second-opinion interpretation. Dictated by: Wilfrid Garcia MD The radiology attending physician has personally reviewed this study, and had reviewed and/or edited this written report and agrees with it. Electronically signed by: Meagan Garcia M.D. Efren Castellanos MD IM CT PROCEDURES F inal Result * CT Body Outside Consult (05/13/2024 3:10 AM RIVET HOLE MACHINE OPERATOR) Anatomical Region Laterality Modality Body N/A Computed Tomogra phy 05/13/2024 4:15 AM RIVET HOLE MACHINE OPERATOR Impressions 05/13/2024 9:43 AM RIVET HOLE MACHINE OPERATOR 1. Limited evaluation of the lungs due to motion artifact. Within this limitation, there is a consolidation in the left lower lobe, concerning for pneumonia, though atelectasis may appear similar. Recommend correlation with patient symptoms. 2. No acute findings in the abdomen or pelvis given the limitations of motion artifact. The findings, conclusions and recommendations within this report do not replace the initial findings, conclusions and recommendations made at the facility where the study was performed based upon the imaging and clinical condition at that time. Comparison with the prior report and clinical history is necessary. The provided images may or may not represent the [place] source data set and thus may contain changes that may lower the accuracy of this second-opinion interpretation. Dictated by: Dulce Nicolas MD The radiology attending physician has personally reviewed this study, and had reviewed and/or edited this written report and agrees with it. Electronically signed by: Jim Dueñas M.D. Narrative 05/13/2024 9:43 AM RIVET HOLE MACHINE OPERATOR EXAMINATION: RADIOLOGY CONSULTATION ON OUTSIDE IMAGING STUDY STUDY INITIALLY PERFORMED: 05/12/2024 at [facility]. TYPE OF STUDY: Multiple CT images of the chest abdomen and pelvis with contrast are provided at the time of this interpretation. CONTRAST ROUTE: Contrast was administered via the intravenous route. The protocol was adequate to address the clinical question. The outside final report was not available at the time of this second opinion interpretation. TYPE OF CONSULTATION: Consult on outside imaging study with images submitted through Outside Image Sharing Service DATE OF CONSULTATION: 05/13/2024 4:07 AM HISTORY: 78-year-old female presenting after fall with right orbital wall fracture COMPARISON: None available. FINDINGS: Normal course and caliber of the thoracic aorta. Mild enlargement of the main pulmonary artery, which may be seen in setting of pulmonary hypertension. Mild cardiomegaly without pericardial effusion. No supraclavicular, axillary, mediastinal, or hilar lymphadenopathy. No central pulmonary embolism. Evaluation of the lungs is limited by motion artifact. Possible consolidation in the left lower lobe. Mild bibasilar atelectasis. No pleural effusion or pneumothorax. Focal tracheomalacia. No focal hepatic lesions. Normal gallbladder. No intrahepatic or extrahepatic ductal dilation. Normal spleen, adrenals, pancreas. Symmetric enhancement of the kidneys. No renal stones or hydronephrosis. The bladder is secured by streak artifact. Normal stomach, duodenum. No evidence of small bowel bowel obstruction. The appendix is not definitively visualized. Evaluation for pneumoperitoneum is limited by motion artifact. Right anterior abdominal wall hernia containing a loop of small bowel. Normal course and caliber of the abdominal aorta and its branches. Right hip arthroplasty. No suspicious osseous lesions. Presumed chronic compression deformity of the L3 vertebral body, likely degenerative. Procedure Note Jim Dueñas MD - 05/13/2024 EXAMINATION: RADIOLOGY CONSULTATION ON OUTSIDE IMAGING STUDY STUDY INITIALLY PERFORMED: 05/12/2024 at [facility]. TYPE OF STUDY: Multiple CT images of the chest abdomen and pelvis with contrast are provided at the time of this interpretation. CONTRAST ROUTE: Contrast was administered via the intravenous route. The protocol was adequate to address the clinical question. The outside final report was not available at the time of this second opinion interpretation. TYPE OF CONSULTATION: Consult on outside imaging study with images submitted through Outside Image Sharing Service DATE OF CONSULTATION: 05/13/2024 4:07 AM HISTORY: 78-year-old female presenting after fall with right orbital wall fracture COMPARISON: None available. FINDINGS: Normal course and caliber of the thoracic aorta. Mild enlargement of the main pulmonary artery, which may be seen in setting of pulmonary hypertension. Mild cardiomegaly without pericardial effusion. No supraclavicular, axillary, mediastinal, or hilar lymphadenopathy. No central pulmonary embolism. Evaluation of the lungs is limited by motion artifact. Possible consolidation in the left lower lobe. Mild bibasilar atelectasis. No pleural effusion or pneumothorax. Focal tracheomalacia. No focal hepatic lesions. Normal gallbladder. No intrahepatic or extrahepatic ductal dilation. Normal spleen, adrenals, pancreas. Symmetric enhancement of the kidneys. No renal stones or hydronephrosis. The bladder is secured by streak artifact. Normal stomach, duodenum. No evidence of small bowel bowel obstruction. The appendix is not definitively visualized. Evaluation for pneumoperitoneum is limited by motion artifact. Right anterior abdominal wall hernia containing a loop of small bowel. Normal course and caliber of the abdominal aorta and its branches. Right hip arthroplasty. No suspicious osseous lesions. Presumed chronic compression deformity of the L3 vertebral body, likely degenerative. IMPRESSION: 1. Limited evaluation of the lungs due to motion artifact. Within this limitation, there is a consolidation in the left lower lobe, concerning for pneumonia, though atelectasis may appear similar. Recommend correlation with patient symptoms. 2. No acute findings in the abdomen or pelvis given the limitations of motion artifact. The findings, conclusions and recommendations within this report do not replace the initial findings, conclusions and recommendations made at the facility where the study was performed based upon the imaging and clinical condition at that time. Comparison with the prior report and clinical history is necessary. The provided images may or may not represent the [place] source data set and thus may contain changes that may lower the accuracy of this second-opinion interpretation. Dictated by: Dulce Nicolas MD The radiology attending physician has personally reviewed this study, and had reviewed and/or edited this written report and agrees with it. Electronically signed by: Jim Dueñas M.D. Efren Castellanos MD IM CT PROCEDURES F inal Result * Chest xray, 1 view, portable (05/13/2024 1:20 AM RIVET HOLE MACHINE OPERATOR) Anatomical Region Laterality Modality Body, Chest N/A Computed Radiogr aphy 05/13/2024 1:45 AM RIVET HOLE MACHINE OPERATOR Impressions 05/13/2024 9:58 AM RIVET HOLE MACHINE OPERATOR No radiographs comparison radiograph dated 01/15/2024. Increased conspicuity of a retrocardiac opacity, which may represent sequela of atelectasis or aspiration. No right pleural effusion or pneumothorax. Unchanged cardiac mediastinal silhouette. Right reverse total shoulder arthroplasty. Dictated by: Dulce Nicolas MD The radiology attending physician has personally reviewed this study, and had reviewed and/or edited this written report and agrees with it. Electronically signed by: Jim Dueñas M.D. Narrative 05/13/2024 9:58 AM RIVET HOLE MACHINE OPERATOR EXAMINATION: 1 view chest radiograph HISTORY: Fall with arm bruising Procedure Note Jim Dueñas MD - 05/13/2024 EXAMINATION: 1 view chest radiograph HISTORY: Fall with arm bruising IMPRESSION: No radiographs comparison radiograph dated 01/15/2024. Increased conspicuity of a retrocardiac opacity, which may represent sequela of atelectasis or aspiration. No right pleural effusion or pneumothorax. Unchanged cardiac mediastinal silhouette. Right reverse total shoulder arthroplasty. Dictated by: Dulce Nicolas MD The radiology attending physician has personally reviewed this study, and had reviewed and/or edited this written report and agrees with it. Electronically signed by: Jim Dueñas M.D. Edwige Strickland MD IMG XR PROCEDURES Fin al Result * POCT glucose (05/13/2024 1:14 AM RIVET HOLE MACHINE OPERATOR) [facility] Glucose, POC 94 70 - 199 mg/dL Blood 05/13/2024 1:14 AM RIVET HOLE MACHINE OPERATOR 05/13/2024 1:14 AM RIVET HOLE MACHINE OPERATOR Edwige Strickland MD LAB POCT ORDERABLES - DEVICE Final Result [facility] Department [place] [address] * (ABNORMAL) POC Blood Gas and Chemistries, Venous - (05/13/2024 1:13 AM RIVET HOLE MACHINE OPERATOR) [facility] pH, Chao POC 7.33 7.32 - 7.43 pCO2, chao POC 72(H) 40 - 50 mmHg [facility] pO2, chao POC 46 mmHg [facility] Na, POC 143 135 - 145 mmol/L [facility] K POC 4.8 3.3 - 4.9 mmol/L [facility] Comment: Interpretive Data Not all point of care methods assess for hemolysis. Confirm with instrument and retest K+ if not consistent with clinical signs and symptoms. Current Interpretive Data was last revised on 2023. Cl, POC 107 97 - 110 mmol/L [facility] Ionized Ca, POC 4.95 4.50 - 5.10 mg/dL [facility] Glucose, POC 96 70 - 199 mg/dL [facility] Lactate, POC 0.8 0.7 - 2.0 mmol/L [facility] MetHb, Chao POC 0.6 0.0 - 1.9 % [facility] O2 Sat, Chao POC (Katie) 76 % [facility] Base excess, POC 10.0 mmol/L [facility] Hct, POC 31.0(L) 36.3 - 45.3 % [facility] Total Hb, POC 10.2(L) 11.9 - 15.5 g/dL [facility] Blood 05/13/2024 1:13 AM RIVET HOLE MACHINE OPERATOR 05/13/2024 1:13 AM RIVET HOLE MACHINE OPERATOR us Edwige Strickland MD LAB POCT ORDERABLES - DEVICE Final Result Performing Organization Address [facility]/ZIP Co de Phone Number [facility] [place] [address] * Thromboelastometry Panel - Heparin (05/13/2024 12:59 AM RIVET HOLE MACHINE OPERATOR) HEPTEM-CT 178 141 - 215 sec HEPTEM-A5 44 33 - 51 mm [facility] HEPTEM-A10 54 44 - 61 mm [facility] HEPTEM-A20 60 52 - 67 mm [facility] HEPTEM-MCF 62 54 - 69 mm [facility] Blood 05/13/2024 12:5 9 AM RIVET HOLE MACHINE OPERATOR 05/13/2024 1:20 AM RIVET HOLE MACHINE OPERATOR us Edwige Strickland MD LAB BLOOD ORDERABLES Edited Result - Final [facility] [place] [address] * Thromboelastometry Panel - Intrinsic (05/13/2024 12:59 AM RIVET HOLE MACHINE OPERATOR) INTEM-CT 179 139 - 205 sec INTEM-A5 44 36 - 54 mm [facility] INTEM-A10 53 46 - 63 mm [facility] INTEM-A20 60 53 - 68 mm [facility] INTEM-MCF 61 55 - 70 mm [facility] INTEM-LI60 96 93 - 100 % [facility] INTEM-ML 5 0 - 7 % [facility] Blood 05/13/2024 12:5 9 AM RIVET HOLE MACHINE OPERATOR 05/13/2024 1:20 AM RIVET HOLE MACHINE OPERATOR us Edwige Strickland MD LAB BLOOD ORDERABLES Edited Result - Final Performing Organization Address City/[facility]/ZIP Co de Phone Number [place] [facility] [place] [address] * (ABNORMAL) Thromboelastometry Panel - Fibrinogen (05/13/2024 12:59 AM RIVET HOLE MACHINE OPERATOR) FIBTEM-A5 17(H) 5 - 16 mm FIBTEM-A10 19(H) 6 - 17 mm [facility] FIBTEM-A20 21(H) 6 - 18 mm [facility] FIBTEM-MCF 21(H) 9 - 19 mm [facility] Blood 05/13/2024 12:5 9 AM RIVET HOLE MACHINE OPERATOR 05/13/2024 1:20 AM RIVET HOLE MACHINE OPERATOR us Edwige Strickland MD LAB BLOOD ORDERABLES Edited Result - Final Performing Organization Address City/[facility]/ZIP Co de Phone Number [facility] [place] [address] * Thromboelastometry Panel - Extrinsic (05/13/2024 12:59 AM RIVET HOLE MACHINE OPERATOR) EXTEM-CT 65 51 - 73 sec EXTEM-A5 44 33 - 52 mm [facility] EXTEM-A10 54 45 - 62 mm [facility] EXTEM-A20 60 54 - 69 mm [facility] EXTEM-MCF 62 57 - 72 mm [facility] EXTEM-LI60 96 94 - 100 % [facility] EXTEM-ML 5 0 - 6 % [facility] Blood 05/13/2024 12:5 9 AM RIVET HOLE MACHINE OPERATOR 05/13/2024 1:20 AM RIVET HOLE MACHINE OPERATOR Edwige Strickland MD LAB BLOOD ORDERABLES Edited Result - Final [facility] Department [place] [address] * Differential, auto (05/13/2024 12:59 AM RIVET HOLE MACHINE OPERATOR) Neutrophil abs 3.9 1.5 - 6.5 K/cumm Imm gran abs 0.0 0.0 - 0.1 K/cumm [facility] Lymphocyte abs 0.9 0.8 - 3.3 K/cumm [facility] Monocyte abs 0.4 0.2 - 0.8 K/cumm [facility] Eosinophil abs 0.1 0.0 - 0.5 K/cumm [facility] Basophil abs 0.0 0.0 - 0.1 K/cumm [facility] Neutrophil pct 74.6 % [facility] Comment: Interpretive Data Percent cell count reference ranges are not reported, since discordance with absolute values may lead to misinterpretation of CBC data. Current Interpretive Data was last revised on 2017. Imm gran pct 0.2 % [facility] Comment: Interpretive Data Percent cell count reference ranges are not reported, since discordance with absolute values may lead to misinterpretation of CBC data. Current Interpretive Data was last revised on 2017. Lymphocyte pct 16.2 % [facility] Comment: Interpretive Data Percent cell count reference ranges are not reported, since discordance with absolute values may lead to misinterpretation of CBC data. Current Interpretive Data was last revised on 2017. Monocyte pct 7.3 % [facility] Comment: Interpretive Data Percent cell count reference ranges are not reported, since discordance with absolute values may lead to misinterpretation of CBC data. Current Interpretive Data was last revised on 2017. Eosinophil pct 1.5 % [facility] Comment: Interpretive Data Percent cell count reference ranges are not reported, since discordance with absolute values may lead to misinterpretation of CBC data. Current Interpretive Data was last revised on 2017. Basophil pct 0.2 % [facility] Comment: Interpretive Data Percent cell count reference ranges are not reported, since discordance with absolute values may lead to misinterpretation of CBC data. Current Interpretive Data was last revised on 2017. Blood 05/13/2024 12:5 9 AM RIVET HOLE MACHINE OPERATOR 05/13/2024 1:17 AM RIVET HOLE MACHINE OPERATOR Edwige Strickland MD LAB BLOOD ORDERABLES Final Result [facility] Department [place] [address] * (ABNORMAL) CBC with auto differential (05/13/2024 12:59 AM RIVET HOLE MACHINE OPERATOR) WBC 5.2 3.8 - 9.9 K/cumm Comment:Code Blue Specimen Hgb 9.7(L) 11.9 - 15.5 g/dL [facility] Hct 31.7(L) 35.6 - 45.5 % [facility] Plt 124(L) 150 - 400 K/cumm [facility] MPV 10.6 9.1 - 12.3 fL [facility] RBC 3.29(L) 3.90 - 5.20 M/cumm [facility] MCV 96.4 81.3 - 96.4 fL [facility] MCH 29.5 27.1 - 33.3 pg [facility] MCHC 30.6(L) 32.3 - 35.7 g/dL [facility] RDW CV 14.9 11.1 - 14.9 % [facility] RDW SD 53.0(H) 35.7 - 48.1 fL [facility] NRBC abs 0.00 0.00 - 0.01 K/cumm [facility] Blood 05/13/2024 12:5 9 AM RIVET HOLE MACHINE OPERATOR 05/13/2024 1:17 AM RIVET HOLE MACHINE OPERATOR Edwige Strickland MD LAB BLOOD ORDERABLES Final Result Performing Organization Address [facility] Co [place] [address] * aPTT (05/13/2024 12:59 AM RIVET HOLE MACHINE OPERATOR) aPTT 28 28 - 38 sec Comment: Code Blue Specimen Interpretive Data Heparin therapeutic range: 66.0 - 100.0 seconds. Range based on correlation with therapeutic heparin activity range of 0.3 - 0.7 Units/mL. Current interpretive data was last revised on 2022. Blood 05/13/2024 12:5 9 AM RIVET HOLE MACHINE OPERATOR 05/13/2024 1:30 AM RIVET HOLE MACHINE OPERATOR Result [facility] Edwige Strickland MD LAB BLOOD ORDERABLES Final Result Performing Organization Address [facility] de Phone Number [facility] [place] [address] * Protime-INR (05/13/2024 12:59 AM RIVET HOLE MACHINE OPERATOR) PT 11.5 9.7 - 13.0 sec Comment:Code Blue Specimen INR 1.06 0.90 - 1.20 [facility] Comment: Code Blue Specimen Interpretive data Oral anticoagulant therapeutic ranges: Venous thromboembolism prophylaxis or treatment: 2.0-3.0 CARDIOLOGY Standard range: 2.0-3.0 High-intensity range: 2.5-3.5 Refer to indication-specific guidelines for appropriate target ranges for prosthetic heart valve replacement. Current interpretive data was last revised on 2019. Blood 05/13/2024 12:5 9 AM RIVET HOLE MACHINE OPERATOR 05/13/2024 1:30 AM RIVET HOLE MACHINE OPERATOR Result [facility] us Edwige Strickland MD LAB BLOOD ORDERABLES Final Result Performing Organization Address [facility] Co de Phone Number [place] [facility] [place] [address] * Type and screen (05/13/2024 12:59 AM RIVET HOLE MACHINE OPERATOR) ABO Rh A Positive [place], indirect Negative [facility] Blood 05/13/2024 12:5 9 AM RIVET HOLE MACHINE OPERATOR 05/13/2024 1:21 AM RIVET HOLE MACHINE OPERATOR Narrative [facility] - 05/13/2024 2:09 AM RIVET HOLE MACHINE OPERATOR Has the patient had Daratumumab or Isatuximab in the past 6 months?->Unknown Edwige Strickland MD LAB BLOOD BANK TEST O RDERABLES Final Result Performing Organization Address [facility] Co de Phone Number [facility] [place] [address] * Ethanol (05/13/2024 12:59 AM RIVET HOLE MACHINE OPERATOR) Ethanol <10 <=10 mg/dL Comment: Code Blue Specimen Interpretive Data Legal limit of intoxication > or = 80 mg/dL Levels > or = 400 mg/dL are potentially TOXIC. Current interpretive data was last revised on 2018. Blood 05/13/2024 12:5 9 AM RIVET HOLE MACHINE OPERATOR 05/13/2024 1:25 AM RIVET HOLE MACHINE OPERATOR Edwige Strickland MD LAB BLOOD ORDERABLES Final Result Performing Organization Address City/[facility] Co de Phone Number [facility] [place] [address] from Last 3 Months Insurance MEDICARE MEDICARE [facility] MEDICARE SUPPLEMENT MEDICARE [facility] MEDICARE SUPPLEMENT Advance Directives For more information, please contact: [phone] * Full Code (Latest Code Status on File) Date Activated Date Inactivated Comments 05/13/2024 8:42 PM 05/27/2024 11:27 PM Care Teams Plaster Die Maker Relationship Specialty Start Date End Date Meagan Yusuf MD PCP - General Family Medicine 05/22/23 Annemarie Lea MD [address] [place] [address] Consulting Physician Otolaryngology 05/27/24 Margy Walker MD PhD [address] [place] [address] Consulting Physician Plastic Surgery 05/27/24 Geraldine Barbosa NP [address] [place] [address] Nurse Practitioner Neurosurgery 05/27/24
--- OUTSIDE RECORDS SUMMARY | 2024-06-05 18:08 | XMS_ITS | Referral Summary ---
Author Organization [facility] Address [address] [place] [id number] Care Team Providers Care Salesperson Women'S Dresses Name Role Phone Meagan Yusuf MD Primary Care Provider + Annemarie Lea MD Unavailable [phone] Margy Walker MD PhD Unavailable [phone] Grealdine Barbosa NP Unavailable [phone] Encounters Date Type Department Care Team Description 05/31/2024 Telephone [facility] Ophthalmology [address] [place] [address] 1st [place] [id number] Leeann Horvath MD 05/28/2024 Documentation [facility] Surgeon [address] [place] [address] Lorena Beck NP 05/27/2024 Telephone [facility]) - [facility] ENT [address] [facility] 11th [place] [address] [place] [address] Sybil Burgess, 05/13/2024 12:53 AM DIEING OUT MACHINE OPERATOR - 05/27/2024 7:22 PM DIEING OUT MACHINE OPERATOR Hospital Encounter [address] [phone] Edwige Strickland MD Vallar, Kelly Jean, MD Smith, MD Karli Cuenca Alexander, MD Fall, initial encounter (Primary Dx); Closed fracture of right orbital floor, initial encounter (HCC); Frequent falls; Other closed intra-articular fracture of distal end of left radius, initial encounter Discharge Disposition: Discharge to an IP Rehab facility 05/19/2024 7:30 AM DIEING OUT MACHINE OPERATOR - 05/19/2024 10:50 AM DIEING OUT MACHINE OPERATOR Surgery [facility] Operating Room [address] [place] [address] Annemarie Lea MD OPEN REDUCTION INTERNAL FIXATION - ORBITAL FRACTURE 05/19/2024 7:51 AM DIEING OUT MACHINE OPERATOR Anesthesia Event [facility] Operating Room [address] [place] [address] Mag Villatoro MD Ridenour, Rebekah Elizabeth, NP 05/18/2024 3:50 PM DIEING OUT MACHINE OPERATOR - 05/18/2024 6:30 PM DIEING OUT MACHINE OPERATOR Surgery [facility] Operating Room [address] [place] [address] Margy Walker MD PhD OPEN REDUCTION INTERNAL FIXATION RADIUS - DISTAL 05/18/2024 3:47 PM DIEING OUT MACHINE OPERATOR Anesthesia Event [facility] Operating Room [address] [place] [address] Zack Rizvi MD Ridenour, Rebekah Elizabeth, NP 05/15/2024 Orders Only [facility] Neurosurgery [address] [facility] 6th [place] [address] [place] [address] Geraldine Barbosa NP Intraparenchymal hematoma of brain due to trauma, with unknown loss of consciousness status, unspecified laterality, subsequent encounter (Primary Dx); Fall, initial encounter 05/14/2024 Telephone [facility] ([facility]) - [facility] ENT [address] [facility] 11th [place] [address] [place] [address] Sybil Burgess MS 05/14/2024 7:55 AM DIEING OUT MACHINE OPERATOR Ancillary Procedure [facility] Vascular Lab IP [address] [facility] [address] [place] [address] 05/13/2024 Ophth Exam [facility] Ophthalmology [address] [place] [address] 1st [place] [address] Gladys Manley MD 05/08/2024 1:30 PM DIEING OUT MACHINE OPERATOR Office Visit [facility] Cardiology [address] [place] [address] Allie Contreras NP Chronic HFrEF (heart failure with reduced ejection fraction) (HCC) (Primary Dx); Persistent atrial fibrillation (HCC); Chronic anticoagulation; Frequent falls; TRAVIS on CPAP 05/01/2024 Telephone [facility] Cardiology [address] [place] [address] Radha Jimenez MD Med Refill [...] DAILY NEEDED FOR SHORTNESS OF BREATH 03/05/20 23 025 Discontinued Xarelto 20 mg tablet TAKE [...] 6 (six) hours for 7 days 05/28/19 erythromycin (ILOTYCIN) ophthalmic ointment Apply to right eye 2 (two) times a day for 7 days 05/28/19 Active Problems Problem Noted Date Diagnosed Date Hypercarbia 05/23/2024 Assessment & Plan (05/26/2024 9:50 AM DIEING OUT MACHINE OPERATOR): #COPD #TRAVIS, chronic #Chronic hypoxic [...] 05/23/2024 Assessment & Plan (05/27/2024 11:52 AM DIEING OUT MACHINE OPERATOR): 05/23 tx out ICU, PT/OT - 05/25: awaiting repeat swallow evaluation, calorie counts - 05/26: Continue Tfs at nightly, Calorie counts. Wean O2 back to home 4L. Not medically ready for discharge. 05/27: Patient is medically stable for discharge, SW/CM updated. Discharge pending facility bed availability Treatment note 05/14 [x] Feeding difficulties 05/22/2024 Assessment & Plan (05/27/2024 11:55 AM DIEING OUT MACHINE OPERATOR): SBFT placed by ENT 05/21 [...] NPO, resumed tube feeds, ordered for repeat SAMPLE DYE MIXER evaluation. Recommend up in chair for all meals and 1:1 assistance during meals pending SAMPLE DYE MIXER evaluation. Discussed with patient and nurse to inform provider of any change in clinical exam or vital signs. 05/25: repeat Swallow- regular diet, regular thin liquids assistance with meals, calorie counts ordered, cycle tube feeding over PM MBS (05/27): swallow mechanism is normal Respiratory distress 05/20/2024 Assessment & Plan (05/27/2024 11:55 AM DIEING OUT MACHINE OPERATOR): Transferred to SICU 05/18 ON [...] 05/14/2024 Assessment & Plan (05/15/2024 2:15 PM DIEING OUT MACHINE OPERATOR): - Orthostatic vital signs (05/14): [...] 05/14/2024 Assessment & Plan (05/14/2024 12:48 PM DIEING OUT MACHINE OPERATOR): - Tylenol 1g q6h - Gabapentin 300mg TID - Robaxin 500mg TID PRN - Oxycodone 5mg q4h PRN Closed fracture of distal end of left radius Assessment & Plan (05/27/2024 11:55 AM DIEING OUT MACHINE OPERATOR): - Plastics consult - L [...] 05/14/2024 Assessment & Plan (05/25/2024 11:39 AM DIEING OUT MACHINE OPERATOR): - Magnesium (05/14): 1.9mg/dL - 05/14: replete Magnesium 2g IV - Magnesium (05/15): 2.0mg/dL - Magnesium (05/20): 2.2mg/dL - Magnesium (05/25): 2.0mg/dL - continue to trend Magnesium Fall, initial encounter 05/13/2024 Assessment & Plan (05/15/2024 10:18 AM DIEING OUT MACHINE OPERATOR): Syncopal workup given unclear mechanism (TTE, carotid duplexes, OSVS) - Hgb 9.7 on arrival, monitor on CBC (9.9 in January) - CXR negative for acute injury - CT CAP negative Orbital floor (blow-out) closed fracture Assessment & Plan (05/27/2024 11:52 AM DIEING OUT MACHINE OPERATOR): Ophtho c/s ---HOB elevation, open-mouth [...] to be tasked with Dr Lea's team. 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 CTM BP and resume home lasix when appropriate. Restless leg syndrome 05/13/2024 Assessment & Plan (05/13/2024 2:32 PM DIEING OUT MACHINE OPERATOR): - Continue home ropinrole and pramipexole, gabapentin Mood disorder 05/13/2024 Assessment & Plan (05/13/2024 2:37 PM DIEING OUT MACHINE OPERATOR): Continue home zoloft Heart failure with mildly re duced ejection fraction (HFmrEF) 01/15/2024 Assessment & Plan (05/27/2024 11:57 AM DIEING OUT MACHINE OPERATOR): #HTN, chronic #HFrEF, chronic #Severe MR #Severe TI #Severe pulmonary hypertension - TTEs as above - Home O2 4L - Follows with [facility] - Home Diltiazem, Entresto, Lasix (1/2 dose) and metoprolol continued Chronic anticoagulation 07/18/2022 Persistent atrial fibrillation 02/20/2022 Noncompliance with medicatio n treatment due to intermittent use of medication 12/18/2021 Morbid (severe) obesity due to excess calories 0 07/05/2021 Labile hypertension 03/23/2021 Hypotension due to drugs 03/23/2021 Coronary artery disease invo lving [place] coronary artery of [place] heart without angina pectoris 02/10/2021 Mixed hyperlipidemia 02/10/2021 Chronic obstructive pulmonary disease 02/10/2021 Chronic respiratory failure with hypoxia 021 TRAVIS on CPAP 02/10/2021 Frequent falls 02/10/2021 Resolved Problems Problem Noted Date Diagnosed Date Resolved Date COPD (chronic obstructive pulmonary disease) 05/23/2024 Assessment & Plan (05/13/2024 2:35 PM DIEING OUT MACHINE OPERATOR): - home meds: albuterol, ipratopium-albuterol Discharge planning issues 05/13/2024 Assessment & Plan (05/18/2024 2:27 PM DIEING OUT MACHINE OPERATOR): - 05/14: orthostatic vital signs pending, syncope workup pending, awaiting PT/OT - 05/15: atrial fibrillation with RVR over PM, ECHO pending. Possible OR on 05/18 05/16 pending OR with Plastics on Saturday and Saturday. Echo completed EF 52% with extensive cardiac anomalies all stable. 05/18: Pending OR with PRS and ENT Treatment plan note [x] H/O cardiomyopathy 12/18/2021 Chronic heart failure with p reserved ejection fraction 02/10/2021 01/15/2024 Immunizations Immunization Administration Dates Next Due Tdap 05/13/2024 Social History Tobacco Use Types Packs/Day Years [...] on file Legal Sex Female 4:29 PM DIEING OUT MACHINE OPERATOR Gender Identity Not on file Sexual Orientation Not on file Last Filed Vital Signs Vital Sign Reading Time Taken Comments Blood Pressure 143/90 05/27/2024 3:28 PM DIEING OUT MACHINE OPERATOR Pulse 112 05/27/2024 3:28 PM DIEING OUT MACHINE OPERATOR Temperature 37.1 C (98.8 F) 05/27/2024 3:28 PM DIEING OUT MACHINE OPERATOR Respiratory Rate 20 05/27/2024 11:49 AM DIEING OUT MACHINE OPERATOR Oxygen Saturation 99% 05/27/2024 3:28 PM DIEING OUT MACHINE OPERATOR Inhaled Oxygen Concentration - - Weight 96 kg (211 lb 10.3 oz) 05/20/2024 10:00 A M DIEING OUT MACHINE OPERATOR Height 165.1 cm (5' 5 ) 05/13/2024 8:40 PM DIEING OUT MACHINE OPERATOR Body Mass Index 35.22 05/13/2024 8:40 PM DIEING OUT MACHINE OPERATOR Plan of Treatment Not on file Medical Devices Implanted Type Area Optical Systems Engineer Device Identifier Shelf Expiration Date Model / Serial / Lot Implantech Sheeting Silastic Non Reinforced Alliedsil [id number] Silicone 700-40 - [id number] Implanted:Qty: 1 on 05/19/2024 by Annemarie Lea MD at [facility] Other - see comments Right: Face Implantech 07/03/2028- / / [place] Craniomaxillofacial Craniomaxillofacial Right 3d Large Implant Orbital Medpor Titan [id number] - [id number] Implanted:Qty: 1 on 05/19/2024 by Annemarie Lea MD at [facility] Other - see comments Right: Face [place] Craniomaxillofacial 08/19/2032 [id number] / / [place] Craniomaxillofacial 1.2mm 4mm Self Drill Axial Stability Lower Profile Screw Bone 56-10897 - [id number] Implanted:Qty: 1 on 05/19/2024 by Annemarie Lea MD at [facility] Other - see comments Right: Face [place] Craniomaxillofacial 56-1290 4 / / Medartis Inc Plt 2.5 Adaptive Ii Trilock Dist Rad Vol L 10h Narrow T2.0 A-4750.101 - [id number] Implanted:Qty: 1 on 05/18/2024 by Margy Walker MD PhD at [facility] Left: Wrist Medartis Inc A-4750. 101 / / Med[employer] Inc 2.5mm 18mm Lock Cortical Screw Bone A-5750.18 - [id number] Implanted:Qty: 1 on 05/18/2024 by Margy Walker MD PhD at [facility] Left: Wrist [employer] A-5750. 18 / / [employer] 2.5mm 22mm Lock Cortical Screw Bone A-5750.22 - [id number] Implanted:Qty: 2 on 05/18/2024 by Margy Walker MD PhD at [facility] Left: Wrist [employer] A-5750. 22 / / [employer] 2.5mm 20mm Lock Cortical Screw Bone A-5750.20 - [id number] Implanted:Qty: 3 on 05/18/2024 by Margy Walker MD PhD at [facility] Left: Wrist [employer] A-5750. 20 / / [employer] Inc Aptus 2.5mm 14mm Lock Cortical Screw Bone A-5750.14 - [id number] Implanted:Qty: 2 on 05/18/2024 by Margy Walker MD PhD at [facility] Left: Wrist [employer] A-5750. 14 / / [employer] Aptus 2.5mm 14mm Cortical Screw Bone A-5700.14 - [id number] Implanted:Qty: 1 on 05/18/2024 by Margy Walker MD PhD at [facility] Left: Wrist [employer] Inc A-5700. 14 / / [employer]is Inc 2.5mm 12mm Lock Cortical Screw Bone A-5750.12 - [id number] Implanted:Qty: 1 on 05/18/2024 by Margy Walker MD PhD at [facility] Left: Wrist [employer] A-5750. 12 / / Explanted Type Area Optical Systems Engineer Device Identifier Shelf Expiration Date Model / Serial / Lot [employer]art[employer] Inc Aptus 2.5mm 16mm Cortical Screw Bone A-5700.16 - [id number] Explanted:Qty: 1 on 05/18/2024 by Margy Walker MD PhD at [facility] Left: Wrist [employer] Inc A-5700 .16 / / Med[employer]is Inc 2.5mm 18mm Lock Cortical Screw Bone A-5750.18 - [id number] Explanted:Qty: 1 on 05/18/2024 at [facility] Left: Wrist [employer] Inc A-5750 .18 / / Procedures Procedure Name Priority Date/Time Associated Diagnosis Comments FL MODIFIED BARIUM SWALLOW W VIDEO IP Routine 05/27/2024 10:35 AM DIEING OUT MACHINE OPERATOR EGFR Routine 05/26/2024 9:12 PM DIEING OUT MACHINE OPERATOR BASIC METABOLIC PANEL Routine 05/26/2024 9:12 PM DIEING OUT MACHINE OPERATOR CBC WITHOUT DIFFERENTIAL Routine 025 9:12 PM DIEING OUT MACHINE OPERATOR MAGNESIUM Routine 05/26/2024 9:12 PM DIEING OUT MACHINE OPERATOR PHOSPHORUS Routine 05/26/2024 9:12 PM DIEING OUT MACHINE OPERATOR PEP THERAPY Routine 05/26/2024 12:01 PM DIEING OUT MACHINE OPERATOR PEP THERAPY Routine 05/26/2024 6:01 AM DIEING OUT MACHINE OPERATOR PEP THERAPY Routine 05/26/2024 12:00 AM DIEING OUT MACHINE OPERATOR EGFR Routine 05/25/2024 9:54 PM DIEING OUT MACHINE OPERATOR BASIC METABOLIC PANEL Routine 05/25/2024 9:54 PM DIEING OUT MACHINE OPERATOR CBC WITHOUT DIFFERENTIAL Routine 025 9:54 PM DIEING OUT MACHINE OPERATOR MAGNESIUM Routine 05/25/2024 9:54 PM DIEING OUT MACHINE OPERATOR PHOSPHORUS Routine 05/25/2024 9:54 PM DIEING OUT MACHINE OPERATOR PEP THERAPY Routine 05/25/2024 6:00 PM DIEING OUT MACHINE OPERATOR PEP THERAPY Routine 05/25/2024 12:00 PM DIEING OUT MACHINE OPERATOR PEP THERAPY Routine 05/25/2024 6:01 AM DIEING OUT MACHINE OPERATOR PEP THERAPY Routine 05/25/2024 12:00 AM DIEING OUT MACHINE OPERATOR ECG 12-LEAD STAT 05/24/2024 10:55 PM DIEING OUT MACHINE OPERATOR EGFR Routine 05/24/2024 8:54 PM DIEING OUT MACHINE OPERATOR BASIC METABOLIC PANEL Routine 05/24/2024 8:54 PM DIEING OUT MACHINE OPERATOR CBC WITHOUT DIFFERENTIAL Routine 025 8:54 PM DIEING OUT MACHINE OPERATOR MAGNESIUM Routine 05/24/2024 8:54 PM DIEING OUT MACHINE OPERATOR PHOSPHORUS Routine 05/24/2024 8:54 PM DIEING OUT MACHINE OPERATOR PEP THERAPY Routine 05/24/2024 6:00 PM DIEING OUT MACHINE OPERATOR PEP THERAPY Routine 05/24/2024 12:00 PM DIEING OUT MACHINE OPERATOR PEP THERAPY Routine 05/24/2024 6:00 AM DIEING OUT MACHINE OPERATOR PEP THERAPY Routine 05/24/2024 12:00 AM DIEING OUT MACHINE OPERATOR ECG 12-LEAD Routine 05/23/2024 11:24 PM DIEING OUT MACHINE OPERATOR EGFR Routine 05/23/2024 8:13 PM DIEING OUT MACHINE OPERATOR BASIC METABOLIC PANEL Routine 05/23/2024 8:13 PM DIEING OUT MACHINE OPERATOR CBC WITHOUT DIFFERENTIAL Routine 025 8:13 PM DIEING OUT MACHINE OPERATOR MAGNESIUM Routine 05/23/2024 8:13 PM DIEING OUT MACHINE OPERATOR PHOSPHORUS Routine 05/23/2024 8:13 PM DIEING OUT MACHINE OPERATOR PEP THERAPY Routine 05/23/2024 6:00 PM DIEING OUT MACHINE OPERATOR PEP THERAPY Routine 05/23/2024 12:00 PM DIEING OUT MACHINE OPERATOR CRITICAL CARE Routine 05/23/2024 6:40 AM DIEING OUT MACHINE OPERATOR Fall, initial encounter PEP THERAPY Routine 05/23/2024 6:00 AM DIEING OUT MACHINE OPERATOR PEP THERAPY Routine 05/23/2024 12:01 AM DIEING OUT MACHINE OPERATOR POCT GLUCOSE DEVICE Routine 05/22/2024 11:10 PM DIEING OUT MACHINE OPERATOR EGFR Routine 05/22/2024 8:23 PM DIEING OUT MACHINE OPERATOR BASIC METABOLIC PANEL Routine 05/22/2024 8:23 PM DIEING OUT MACHINE OPERATOR CBC WITHOUT DIFFERENTIAL Routine 025 8:23 PM DIEING OUT MACHINE OPERATOR MAGNESIUM Routine 05/22/2024 8:23 PM DIEING OUT MACHINE OPERATOR PHOSPHORUS Routine 05/22/2024 8:23 PM DIEING OUT MACHINE OPERATOR CRITICAL CARE Routine 05/22/2024 7:32 PM DIEING OUT MACHINE OPERATOR Fall, initial encounter POCT GLUCOSE DEVICE Routine 05/22/2024 6 :58 PM DIEING OUT MACHINE OPERATOR PEP THERAPY Routine 05/22/2024 6:00 PM DIEING OUT MACHINE OPERATOR IRON PROFILE W/ IBC STAT 05/22/2024 3 :44 PM DIEING OUT MACHINE OPERATOR POCT GLUCOSE DEVICE Routine 05/22/2024 3 :03 PM DIEING OUT MACHINE OPERATOR PEP THERAPY Routine 05/22/2024 12:00 PM DIEING OUT MACHINE OPERATOR POCT GLUCOSE DEVICE Routine 05/22/2024 10:55 AM DIEING OUT MACHINE OPERATOR POCT GLUCOSE DEVICE Routine 05/22/2024 7 :01 AM DIEING OUT MACHINE OPERATOR CRITICAL CARE Routine 05/22/2024 6:44 AM DIEING OUT MACHINE OPERATOR Fall, initial encounter PEP THERAPY Routine 05/22/2024 6:01 AM DIEING OUT MACHINE OPERATOR BLOOD GAS, ARTERIAL Routine 05/22/2024 4 :31 AM DIEING OUT MACHINE OPERATOR POCT GLUCOSE DEVICE Routine 05/22/2024 3 :02 AM DIEING OUT MACHINE OPERATOR PEP THERAPY Routine 05/22/2024 12:00 AM DIEING OUT MACHINE OPERATOR POCT GLUCOSE DEVICE Routine 05/21/2024 10:54 PM DIEING OUT MACHINE OPERATOR EGFR Routine 05/21/2024 8:54 PM DIEING OUT MACHINE OPERATOR BLOOD GAS, ARTERIAL Routine 05/21/2024 8 :54 PM DIEING OUT MACHINE OPERATOR BASIC METABOLIC PANEL Routine 05/21/2024 8:54 PM DIEING OUT MACHINE OPERATOR CBC WITHOUT DIFFERENTIAL Routine 025 8:54 PM DIEING OUT MACHINE OPERATOR MAGNESIUM Routine 05/21/2024 8:54 PM DIEING OUT MACHINE OPERATOR PHOSPHORUS Routine 05/21/2024 8:54 PM DIEING OUT MACHINE OPERATOR XR CHEST 1 VIEW IP Routine 05/21/2024 8:36 PM DIEING OUT MACHINE OPERATOR CRITICAL CARE Routine 05/21/2024 8:00 PM DIEING OUT MACHINE OPERATOR Fall, initial encounter POCT GLUCOSE DEVICE Routine 05/21/2024 7 :43 PM DIEING OUT MACHINE OPERATOR PEP THERAPY Routine 05/21/2024 6:00 PM DIEING OUT MACHINE OPERATOR BLOOD GAS, ARTERIAL STAT 05/21/2024 3 :11 PM DIEING OUT MACHINE OPERATOR POCT GLUCOSE DEVICE Routine 05/21/2024 3 :10 PM DIEING OUT MACHINE OPERATOR EXTUBATION Routine 05/21/2024 2:27 PM DIEING OUT MACHINE OPERATOR PEP THERAPY Routine 05/21/2024 12:00 PM DIEING OUT MACHINE OPERATOR POCT GLUCOSE DEVICE Routine 05/21/2024 11:14 AM DIEING OUT MACHINE OPERATOR T4, FREE Routine 05/21/2024 9:07 AM DIEING OUT MACHINE OPERATOR AMMONIA Routine 05/21/2024 9:07 AM DIEING OUT MACHINE OPERATOR THYROID FUNCTION CASCADE Routine 9:07 AM DIEING OUT MACHINE OPERATOR TRIGLYCERIDES Timed 05/21/2024 9:07 AM DIEING OUT MACHINE OPERATOR POCT GLUCOSE DEVICE Routine 05/21/2024 7 :24 AM DIEING OUT MACHINE OPERATOR CRITICAL CARE Routine 05/21/2024 7:02 AM DIEING OUT MACHINE OPERATOR Fall, initial encounter PEP THERAPY Routine 05/21/2024 6:01 AM DIEING OUT MACHINE OPERATOR POCT GLUCOSE DEVICE Routine 05/21/2024 3 :47 AM DIEING OUT MACHINE OPERATOR XR CHEST 1 VIEW ED Urgent/IP Urgent 05/21/2024 12:12 AM DIEING OUT MACHINE OPERATOR PEP THERAPY Routine 05/21/2024 12:00 AM DIEING OUT MACHINE OPERATOR POCT GLUCOSE DEVICE Routine 05/20/2024 11:29 PM DIEING OUT MACHINE OPERATOR XR ABDOMEN AP 1 VIEW ED Urgent/IP Urgent 05/20/2024 8:05 PM DIEING OUT MACHINE OPERATOR EGFR Routine 05/20/2024 7:44 PM DIEING OUT MACHINE OPERATOR BASIC METABOLIC PANEL Routine 05/20/2024 7:44 PM DIEING OUT MACHINE OPERATOR CBC WITHOUT DIFFERENTIAL Routine 025 7:44 PM DIEING OUT MACHINE OPERATOR MAGNESIUM Routine 05/20/2024 7:44 PM DIEING OUT MACHINE OPERATOR PHOSPHORUS Routine 05/20/2024 7:44 PM DIEING OUT MACHINE OPERATOR POCT GLUCOSE DEVICE Routine 05/20/2024 7 :36 PM DIEING OUT MACHINE OPERATOR CRITICAL CARE Routine 05/20/2024 6:22 PM DIEING OUT MACHINE OPERATOR Fall, initial encounter PEP THERAPY Routine 05/20/2024 6:00 PM DIEING OUT MACHINE OPERATOR POCT GLUCOSE DEVICE Routine 05/20/2024 3 :33 PM DIEING OUT MACHINE OPERATOR PEP THERAPY Routine 05/20/2024 12:00 PM DIEING OUT MACHINE OPERATOR POCT GLUCOSE DEVICE Routine 05/20/2024 11:36 AM DIEING OUT MACHINE OPERATOR POCT GLUCOSE DEVICE Routine 05/20/2024 7 :28 AM DIEING OUT MACHINE OPERATOR CRITICAL CARE Routine 05/20/2024 7:27 AM DIEING OUT MACHINE OPERATOR Fall, initial encounter XR CHEST 1 VIEW ED Urgent/IP Urgent 05/20/2024 6:25 AM DIEING OUT MACHINE OPERATOR PEP THERAPY Routine 05/20/2024 6:01 AM DIEING OUT MACHINE OPERATOR POCT GLUCOSE DEVICE Routine 05/20/2024 3 :47 AM DIEING OUT MACHINE OPERATOR BLOOD GAS, ARTERIAL STAT 05/20/2024 3 :01 AM DIEING OUT MACHINE OPERATOR PEP THERAPY Routine 05/20/2024 12:00 AM DIEING OUT MACHINE OPERATOR POCT GLUCOSE DEVICE Routine 05/19/2024 11:34 PM DIEING OUT MACHINE OPERATOR REPOSITION ENDOTRACHEAL TUBE Routine 05/19/2024 10:35 PM DIEING OUT MACHINE OPERATOR EGFR Routine 05/19/2024 9:35 PM DIEING OUT MACHINE OPERATOR BLOOD GAS, ARTERIAL Routine 05/19/2024 9 :35 PM DIEING OUT MACHINE OPERATOR BASIC METABOLIC PANEL Routine 05/19/2024 9:35 PM DIEING OUT MACHINE OPERATOR CBC WITHOUT DIFFERENTIAL Routine 025 9:35 PM DIEING OUT MACHINE OPERATOR MAGNESIUM Routine 05/19/2024 9:35 PM DIEING OUT MACHINE OPERATOR PHOSPHORUS Routine 05/19/2024 9:35 PM DIEING OUT MACHINE OPERATOR CRITICAL CARE Routine 05/19/2024 8:59 PM DIEING OUT MACHINE OPERATOR Fall, initial encounter POCT GLUCOSE DEVICE Routine 05/19/2024 7 :36 PM DIEING OUT MACHINE OPERATOR PEP THERAPY Routine 05/19/2024 6:00 PM DIEING OUT MACHINE OPERATOR POCT GLUCOSE DEVICE Routine 05/19/2024 3 :43 PM DIEING OUT MACHINE OPERATOR RT COMMUNICATION Routine 05/19/2024 2:30 PM DIEING OUT MACHINE OPERATOR XR CHEST 1 VIEW ED Urgent/IP Urgent 05/19/2024 2:08 PM DIEING OUT MACHINE OPERATOR POCT GLUCOSE DEVICE Routine 05/19/2024 12:49 PM DIEING OUT MACHINE OPERATOR EGFR STAT 05/19/2024 12:45 PM DIEING OUT MACHINE OPERATOR PHOSPHORUS STAT 05/19/2024 12:45 PM DIEING OUT MACHINE OPERATOR MAGNESIUM STAT 05/19/2024 12:45 PM DIEING OUT MACHINE OPERATOR BASIC METABOLIC PANEL STAT 05/19/2024 12:45 PM DIEING OUT MACHINE OPERATOR CBC WITHOUT DIFFERENTIAL STAT 025 12:45 PM DIEING OUT MACHINE OPERATOR BLOOD GAS, ARTERIAL STAT 05/19/2024 12:45 PM DIEING OUT MACHINE OPERATOR PEP THERAPY Routine 05/19/2024 12:00 PM DIEING OUT MACHINE OPERATOR FL FLUOROSCOPY < 1 HOUR IP Routine 05/19/19 11:22 AM DIEING OUT MACHINE OPERATOR POC BLOOD GAS AND CHEMISTRIES, ARTERIAL Routine 05/19/2024 10:38 AM DIEING OUT MACHINE OPERATOR IA AN PROCEDURE PLACEHOLDER Routine 05/19/2024 9:51 AM DIEING OUT MACHINE OPERATOR IA AN PROCEDURE PLACEHOLDER Routine 05/19/2024 9:46 AM DIEING OUT MACHINE OPERATOR IA AN ELECTIVE ENDOTRACHEAL AIRWAY Routine 05/19/2024 9:46 AM DIEING OUT MACHINE OPERATOR POC BLOOD GAS AND CHEMISTRIES, ARTERIAL Routine 05/19/2024 8:35 AM DIEING OUT MACHINE OPERATOR OPEN REDUCTION INTERNAL FIXATION - ORBITAL FRACTURE 05/19/2024 7:54 AM DIEING OUT MACHINE OPERATOR Fall, initial encounter Closed fracture of right orbital floor, initial encounter ([facility] Case Notes 05/18@0831- Per Shavonne via email make first start - [facility] [id number]- Per Dr. Lea via case msg - Outpatient, 2 hours- [id number]- Case msg sent to pillow filler for ctc and po destination- [facility] POCT GLUCOSE DEVICE Routine 05/19/2024 7 :36 AM DIEING OUT MACHINE OPERATOR CRITICAL CARE Routine 05/19/2024 7:06 AM DIEING OUT MACHINE OPERATOR Fall, initial encounter PEP THERAPY Routine 05/19/2024 6:01 AM DIEING OUT MACHINE OPERATOR CRITICAL RESULT CALLBACK CHEMISTRY Timed 05/19/2024 5:18 AM DIEING OUT MACHINE OPERATOR TYPE AND SCREEN Timed 05/19/2024 5:18 AM DIEING OUT MACHINE OPERATOR BLOOD GAS, VENOUS Timed 05/19/2024 5:1 8 AM DIEING OUT MACHINE OPERATOR CRITICAL RESULT CALLBACK CHEMISTRY Timed 05/19/2024 3:41 AM DIEING OUT MACHINE OPERATOR BLOOD GAS, ARTERIAL Timed 05/19/2024 3 :41 AM DIEING OUT MACHINE OPERATOR XR CHEST 1 VIEW ED Urgent/IP Urgent 05/19/2024 3:20 AM DIEING OUT MACHINE OPERATOR CRITICAL CARE Routine 05/19/2024 3:00 AM DIEING OUT MACHINE OPERATOR POCT GLUCOSE DEVICE Routine 05/19/2024 2 :38 AM DIEING OUT MACHINE OPERATOR CTA/CTP RAPID STROKE Critical/Life-T hreatening 05/19/2024 2:26 AM DIEING OUT MACHINE OPERATOR POCT [id number] - ISTAT Routine 05/19/2024 1:27 AM DIEING OUT MACHINE OPERATOR ARTERIAL BLOOD GAS W/LACTATE Routine 05/19/2024 1:22 AM DIEING OUT MACHINE OPERATOR POCT GLUCOSE DEVICE Routine 05/19/2024 1 :15 AM DIEING OUT MACHINE OPERATOR EGFR Routine 05/19/2024 12:55 AM DIEING OUT MACHINE OPERATOR POTASSIUM, WHOLE BLOOD STAT 12:55 AM DIEING OUT MACHINE OPERATOR BASIC METABOLIC PANEL Routine 05/19/2024 12:55 AM DIEING OUT MACHINE OPERATOR CBC WITHOUT DIFFERENTIAL Routine 025 12:55 AM DIEING OUT MACHINE OPERATOR MAGNESIUM Routine 05/19/2024 12:55 AM DIEING OUT MACHINE OPERATOR PHOSPHORUS Routine 05/19/2024 12:55 AM DIEING OUT MACHINE OPERATOR PEP THERAPY Routine 05/19/2024 12:00 AM DIEING OUT MACHINE OPERATOR PEP THERAPY Routine 05/18/2024 6:00 PM DIEING OUT MACHINE OPERATOR IA AN PROCEDURE PLACEHOLDER Routine 05/18/2024 4:41 PM DIEING OUT MACHINE OPERATOR IA AN ELECTIVE ENDOTRACHEAL AIRWAY Routine 05/18/2024 4:41 PM DIEING OUT MACHINE OPERATOR IA AN PROCEDURE PLACEHOLDER Routine 05/18/2024 3:47 PM DIEING OUT MACHINE OPERATOR RELEASE CARPAL TUNNEL 05/18/2024 3:02 PM DIEING OUT MACHINE OPERATOR Other closed intra-articular fracture of distal end of left radius, initial encounter Case Notes 2/21 per yesenia via case message, ctc is 90 min and post op is surg floor- RC OPEN REDUCTION INTERNAL FIXATION RADIUS - DISTAL 05/18/2024 3:02 PM DIEING OUT MACHINE OPERATOR Other closed intra-articular fracture of distal end of left radius, initial encounter Case Notes 05/15 per yesenia via case message, ctc is 90 min and post op is surg floor- RC PEP THERAPY Routine 05/18/2024 12:00 PM DIEING OUT MACHINE OPERATOR PEP THERAPY Routine 05/18/2024 6:01 AM DIEING OUT MACHINE OPERATOR PEP THERAPY Routine 05/18/2024 12:00 AM DIEING OUT MACHINE OPERATOR EGFR Routine 05/17/2024 11:56 PM DIEING OUT MACHINE OPERATOR BASIC METABOLIC PANEL Routine 05/17/2024 11:56 PM DIEING OUT MACHINE OPERATOR CBC WITHOUT DIFFERENTIAL Routine 025 11:56 PM DIEING OUT MACHINE OPERATOR MAGNESIUM Routine 05/17/2024 11:56 PM DIEING OUT MACHINE OPERATOR PHOSPHORUS Routine 05/17/2024 11:56 PM DIEING OUT MACHINE OPERATOR PEP THERAPY Routine 05/17/2024 6:00 PM DIEING OUT MACHINE OPERATOR PEP THERAPY Routine 05/17/2024 1:43 PM DIEING OUT MACHINE OPERATOR PEP THERAPY Routine 05/17/2024 1:43 PM DIEING OUT MACHINE OPERATOR PEP THERAPY Routine 05/17/2024 1:43 PM DIEING OUT MACHINE OPERATOR PEP THERAPY Routine 05/17/2024 1:43 PM DIEING OUT MACHINE OPERATOR EGFR Routine 05/16/2024 10:25 PM DIEING OUT MACHINE OPERATOR BASIC METABOLIC PANEL Routine 05/16/2024 10:25 PM DIEING OUT MACHINE OPERATOR CBC WITHOUT DIFFERENTIAL Routine 025 10:25 PM DIEING OUT MACHINE OPERATOR MAGNESIUM Routine 05/16/2024 10:25 PM DIEING OUT MACHINE OPERATOR PHOSPHORUS Routine 05/16/2024 10:25 PM DIEING OUT MACHINE OPERATOR EGFR Routine 05/15/2024 10:17 PM DIEING OUT MACHINE OPERATOR BASIC METABOLIC PANEL Routine 05/15/2024 10:17 PM DIEING OUT MACHINE OPERATOR CBC WITHOUT DIFFERENTIAL Routine 025 10:17 PM DIEING OUT MACHINE OPERATOR MAGNESIUM Routine 05/15/2024 10:17 PM DIEING OUT MACHINE OPERATOR PHOSPHORUS Routine 05/15/2024 10:17 PM DIEING OUT MACHINE OPERATOR BLOOD GAS, ARTERIAL STAT 05/15/2024 11:40 AM DIEING OUT MACHINE OPERATOR TRANSTHORACIC ECHO (TTE) COMPLETE W DOPPLER/CF W CONTRAST Routine 05/15/2024 10:00 AM DIEING OUT MACHINE OPERATOR EGFR Routine 05/15/2024 8:13 AM DIEING OUT MACHINE OPERATOR BASIC METABOLIC PANEL Routine 05/15/2024 8:13 AM DIEING OUT MACHINE OPERATOR CBC WITHOUT DIFFERENTIAL Routine 025 8:13 AM DIEING OUT MACHINE OPERATOR MAGNESIUM Routine 05/15/2024 8:13 AM DIEING OUT MACHINE OPERATOR PHOSPHORUS Routine 05/15/2024 8:13 AM DIEING OUT MACHINE OPERATOR ECG 12-LEAD STAT 05/15/2024 7:03 AM DIEING OUT MACHINE OPERATOR ECG 12-LEAD STAT 05/15/2024 7:02 AM DIEING OUT MACHINE OPERATOR POCT GLUCOSE DEVICE Routine 05/14/2024 12:41 PM DIEING OUT MACHINE OPERATOR MRI BRAIN TUMOR W WO CONTRAST ED Urgent/IP Urgent 05/14/2024 12:04 PM DIEING OUT MACHINE OPERATOR US CAROTIDS DUPLEX BILATERAL IP Routine 05/14/2024 9:45 AM DIEING OUT MACHINE OPERATOR EGFR STAT 05/14/2024 7:00 AM DIEING OUT MACHINE OPERATOR PHOSPHORUS STAT 05/14/2024 7:00 AM DIEING OUT MACHINE OPERATOR MAGNESIUM STAT 05/14/2024 7:00 AM DIEING OUT MACHINE OPERATOR BASIC METABOLIC PANEL STAT 05/14/2024 7:00 AM DIEING OUT MACHINE OPERATOR CBC WITHOUT DIFFERENTIAL STAT 025 7:00 AM DIEING OUT MACHINE OPERATOR ECG 12-LEAD STAT 05/13/2024 9:31 PM DIEING OUT MACHINE OPERATOR CRITICAL RESULT CALLBACK CHEMISTRY Timed 05/13/2024 8:11 PM DIEING OUT MACHINE OPERATOR BLOOD GAS, VENOUS Timed 05/13/2024 8:1 1 PM DIEING OUT MACHINE OPERATOR BLOOD GAS, VENOUS Timed 05/13/2024 5:4 9 PM DIEING OUT MACHINE OPERATOR EGFR STAT 05/13/2024 5:13 PM DIEING OUT MACHINE OPERATOR BLOOD GAS, VENOUS Routine 05/13/2024 5:1 3 PM DIEING OUT MACHINE OPERATOR COMPREHENSIVE METABOLIC PANEL STAT 05/13/2024 5:13 PM DIEING OUT MACHINE OPERATOR XR WRIST LEFT 3 OR MORE VIEWS ED 05/13/2024 5:11 PM DIEING OUT MACHINE OPERATOR XR HAND LEFT 3 OR MORE VIEWS ED 05/13/2024 5:11 PM DIEING OUT MACHINE OPERATOR CRITICAL RESULT CALLBACK CHEMISTRY Timed 05/13/2024 3:11 PM DIEING OUT MACHINE OPERATOR BLOOD GAS, VENOUS Timed 05/13/2024 3:1 1 PM DIEING OUT MACHINE OPERATOR DRUGS OF ABUSE SCREEN, URINE WITH REFLEX CONFIRMATION Routine 05/13/2024 3:11 PM DIEING OUT MACHINE OPERATOR POC BLOOD GAS AND CHEMISTRIES, VENOUS Routine 05/13/2024 11:26 AM DIEING OUT MACHINE OPERATOR BLOOD GAS, VENOUS STAT 05/13/2024 11:23 AM DIEING OUT MACHINE OPERATOR IA CRITICAL CARE ILL/INJURED PATIENT INIT 30-74 MIN Routine 05/13/2024 9:51 AM DIEING OUT MACHINE OPERATOR POC BLOOD GAS AND CHEMISTRIES, VENOUS Routine 05/13/2024 8:37 AM DIEING OUT MACHINE OPERATOR IA CRITICAL CARE ILL/INJURED PATIENT INIT 30-74 MIN Routine 05/13/2024 6:57 AM DIEING OUT MACHINE OPERATOR HEPARIN ANTI FACTOR XA ACTIVITY STAT 05/13/2024 6:45 AM DIEING OUT MACHINE OPERATOR CT HEAD WO CONTRAST ED Urgent/IP Urgent 05/13/2024 5:53 AM DIEING OUT MACHINE OPERATOR BLOOD GAS, VENOUS STAT 05/13/2024 3:3 8 AM DIEING OUT MACHINE OPERATOR XR TRANSFER OF OUTSIDE FILMS Routine 05/13/2024 3:26 AM DIEING OUT MACHINE OPERATOR XR TRANSFER OF OUTSIDE FILMS Routine 05/13/2024 3:24 AM DIEING OUT MACHINE OPERATOR XR TRANSFER OF OUTSIDE FILMS Routine 05/13/2024 3:22 AM DIEING OUT MACHINE OPERATOR XR TRANSFER OF OUTSIDE FILMS Routine 05/13/2024 3:20 AM DIEING OUT MACHINE OPERATOR NEURO CT OUTSIDE CONSULT Routine 025 3:17 AM DIEING OUT MACHINE OPERATOR NEURO CT OUTSIDE CONSULT Routine 025 3:13 AM DIEING OUT MACHINE OPERATOR CT BODY OUTSIDE CONSULT Routine 05/13/19 25 3:10 AM DIEING OUT MACHINE OPERATOR XR CHEST 1 VIEW ED 05/13/2024 1:20 AM DIEING OUT MACHINE OPERATOR POCT GLUCOSE DEVICE Routine 05/13/2024 1 :14 AM DIEING OUT MACHINE OPERATOR POC BLOOD GAS AND CHEMISTRIES, VENOUS Routine 05/13/2024 1:13 AM DIEING OUT MACHINE OPERATOR THROMBOELASTOMETRY PANEL - INTRINSIC Routine 05/13/2024 12:59 AM DIEING OUT MACHINE OPERATOR THROMBOELASTOMETRY PANEL - HEPARIN Routine 05/13/2024 12:59 AM DIEING OUT MACHINE OPERATOR THROMBOELASTOMETRY PANEL - EXTRINSIC Routine 05/13/2024 12:59 AM DIEING OUT MACHINE OPERATOR THROMBOELASTOMETRY PANEL - FIBRINOGEN Routine 05/13/2024 12:59 AM DIEING OUT MACHINE OPERATOR DIFFERENTIAL AUTO Routine 05/13/2024 12:59 AM DIEING OUT MACHINE OPERATOR THROMBOELASTOMETRY PANEL Routine 025 12:59 AM DIEING OUT MACHINE OPERATOR PROTIME-INR Routine 05/13/2024 12:59 AM DIEING OUT MACHINE OPERATOR APTT Routine 05/13/2024 12:59 AM DIEING OUT MACHINE OPERATOR ETHANOL Routine 05/13/2024 12:59 AM DIEING OUT MACHINE OPERATOR CBC WITH AUTO DIFFERENTIAL Routine 05/13/2024 12:59 AM DIEING OUT MACHINE OPERATOR TYPE AND SCREEN Timed 05/13/2024 12:59 AM DIEING OUT MACHINE OPERATOR from Last 3 Months Results * FL Modified Barium Swallow W Video (05/27/2024 10:35 AM DIEING OUT MACHINE OPERATOR) Anatomical Region Laterality Modality Head and Neck N/A Radio Fluoroscop y 05/27/2024 11:0 1 AM DIEING OUT MACHINE OPERATOR Impressions 05/27/2024 11:14 AM DIEING OUT MACHINE OPERATOR The swallowing mechanism is normal; [...] Serrano M.D., Ph.D Narrative 05/27/2024 11:14 AM DIEING OUT MACHINE OPERATOR EXAMINATION: MODIFIED BARIUM SWALLOW HISTORY: [...] Electronically signed by: Murtaza Serrano M.D., Ph.D [facility] Divya Gaona RESIDENTIAL COORDINATOR IMG FLUOROSCOPY PROCED URES Final Result * eGFR (05/26/2024 9:12 PM DIEING OUT MACHINE OPERATOR) eGFR 88 >=60 mL/min/1. 73 [...] last reviewed 2021. Blood 05/26/2024 9:12 PM DIEING OUT MACHINE OPERATOR 05/26/2024 9:54 PM DIEING OUT MACHINE OPERATOR us Christiano Ko MD LAB BLOOD ORDERABLES Final Result [facility] Department [place] [address] * (ABNORMAL) CBC without differential (05/26/2024 9:12 PM DIEING OUT MACHINE OPERATOR) WBC 8.8 3.8 - 9.9 K/cumm Hgb 9.7(L) 11.9 - 15.5 g/dL [facility] Hct 32.8(L) 35.6 - 45.5 % [facility] Plt 209 150 - 400 K/cumm [facility] MPV 11.9 9.1 - 12.3 fL [facility] RBC 3.36(L) 3.90 - 5.20 M/cumm [facility] MCV 97.6(H) 81.3 - 96.4 fL [facility] MCH 28.9 27.1 - 33.3 pg [facility] MCHC 29.6(L) 32.3 - 35.7 g/dL [facility] RDW CV 14.2 11.1 - 14.9 % [facility] RDW SD 50.4(H) 35.7 - 48.1 fL [facility] NRBC abs 0.00 0.00 - 0.01 K/cumm [facility] Blood 05/26/2024 9:12 PM DIEING OUT MACHINE OPERATOR 05/26/2024 9:54 PM DIEING OUT MACHINE OPERATOR us Christiano Ko MD LAB BLOOD ORDERABLES Final Result [facility] Department [place] [address] * Phosphorus (05/26/2024 9:12 PM DIEING OUT MACHINE OPERATOR) Phosphorus, pl 2.8 2.3 - 4.5 mg/dL Blood 05/26/2024 9:12 PM DIEING OUT MACHINE OPERATOR 05/26/2024 9:54 PM DIEING OUT MACHINE OPERATOR Christiano Ko MD LAB BLOOD ORDERABLES Final Result Performing Organization Address City/State/[facility] Co de Phone Number [facility] [place] [address] * Magnesium (05/26/2024 9:12 PM DIEING OUT MACHINE OPERATOR) [facility] Magnesium 2.0 1.4 - 2.5 mg/dL Blood 05/26/2024 9:12 PM DIEING OUT MACHINE OPERATOR 05/26/2024 9:54 PM DIEING OUT MACHINE OPERATOR Christiano Ko MD LAB BLOOD ORDERABLES Final Result Performing Organization Address [facility] Phone Number [facility] Department [place] [address] * Basic metabolic panel (05/26/2024 9:12 PM DIEING OUT MACHINE OPERATOR) Pathologist [facility] Sodium 143 135 - 145 mmol/L Potassium, pl 4.2 3.3 - 4.9 mmol/L [facility] Chloride 102 97 - 110 mmol/L [facility] CO2 31 22 - 32 mmol/L [facility] Anion gap 10 2 - 15 mmol/L [facility] BUN 21 6 - 25 mg/dL [facility] Creatinine 0.71 0.60 - 1.10 mg/dL [facility] Glucose 165 70 - 199 mg/dL [facility] Comment: Interpretive Data Fasting glucose >/= 126 [...] 2022. Calcium 9.3 8.5 - 10.3 mg/dL [facility] Blood 05/26/2024 9:12 PM DIEING OUT MACHINE OPERATOR 05/26/2024 9:54 PM DIEING OUT MACHINE OPERATOR Christiano Ko MD LAB BLOOD ORDERABLES Final Result Performing Organization Address [facility] Co de Phone Number [facility] [place] [address] * eGFR (05/25/2024 9:54 PM DIEING OUT MACHINE OPERATOR) eGFR >90 >=60 mL/min/1. 73 m2 Comment: [...] last reviewed 2021. Blood 05/25/2024 9:54 PM DIEING OUT MACHINE OPERATOR 05/25/2024 10:27 PM DIEING OUT MACHINE OPERATOR us Christiano Ko MD LAB BLOOD ORDERABLES Final Result Performing Organization Address [facility]/ZIP Co de Phone Number [facility] Department [place] [address] * (ABNORMAL) CBC without differential (05/25/2024 9:54 PM DIEING OUT MACHINE OPERATOR) Pathologist [facility] WBC 6.4 3.8 - 9.9 K/cumm Hgb 9.4(L) 11.9 - 15.5 g/dL [facility] Hct 31.2(L) 35.6 - 45.5 % [facility] Plt 170 150 - 400 K/cumm [facility] MPV 11.5 9.1 - 12.3 fL [facility] RBC 3.22(L) 3.90 - 5.20 M/cumm [facility] MCV 96.9(H) 81.3 - 96.4 fL [facility] MCH 29.2 27.1 - 33.3 pg [facility] MCHC 30.1(L) 32.3 - 35.7 g/dL [facility] RDW CV 14.3 11.1 - 14.9 % [facility] RDW SD 50.5(H) 35.7 - 48.1 fL [facility] NRBC abs 0.00 0.00 - 0.01 K/cumm [facility] Blood 05/25/2024 9:54 PM DIEING OUT MACHINE OPERATOR 05/25/2024 10:27 PM DIEING OUT MACHINE OPERATOR Christiano Ko MD LAB BLOOD ORDERABLES Final Result [facility] [place] [address] * Phosphorus (05/25/2024 9:54 PM DIEING OUT MACHINE OPERATOR) Phosphorus, pl 3.5 2.3 - 4.5 mg/dL Blood 05/25/2024 9:54 PM DIEING OUT MACHINE OPERATOR 05/25/2024 10:27 PM DIEING OUT MACHINE OPERATOR Christiano Ko MD LAB BLOOD ORDERABLES Final Result [facility] [place] [address] * Magnesium (05/25/2024 9:54 PM DIEING OUT MACHINE OPERATOR) Magnesium 2.1 1.4 - 2.5 mg/dL Blood 05/25/2024 9:54 PM DIEING OUT MACHINE OPERATOR 05/25/2024 10:27 PM DIEING OUT MACHINE OPERATOR Christiano Ko MD LAB BLOOD ORDERABLES Final Result Performing Organization Address [facility] Co de Phone Number [facility] Department [place] [address] * (ABNORMAL) Basic metabolic panel (05/25/2024 9:54 PM DIEING OUT MACHINE OPERATOR) [facility] Sodium 145 135 - 145 mmol/L Potassium, pl 4.4 3.3 - 4.9 mmol/L [facility] Chloride 105 97 - 110 mmol/L [facility] CO2 33(H) 22 - 32 mmol/L [facility] Anion gap 7 2 - 15 mmol/L [facility] BUN 13 6 - 25 mg/dL [facility] Creatinine 0.66 0.60 - 1.10 mg/dL [facility] Glucose 112 70 - 199 mg/dL [facility] Comment: Interpretive Data Fasting glucose >/= 126 [...] 2022. Calcium 9.2 8.5 - 10.3 mg/dL [facility] Blood 05/25/2024 9:54 PM DIEING OUT MACHINE OPERATOR 05/25/2024 10:27 PM DIEING OUT MACHINE OPERATOR Christiano Ko MD LAB BLOOD ORDERABLES Final Result Performing Organization Address [facility] Co de Phone Number [facility] Department [place] [address] * ECG 12 lead (05/24/2024 10:55 PM DIEING OUT MACHINE OPERATOR) Ventricular Rate EKG/Min 99 BPM [facility] QRS-Interval (MSEC) 86 ms [facility] QT-Interval (MSEC) 364 ms [facility] QTc 467 ms [facility] R [place] 91 degrees [facility] T [place] 160 degrees [facility] Diagnosis Atrial fibrillation/fl utter Rightward axis Low voltage QRS Cannot rule out Anterior infarct , age undetermined ST & T wave abnormality, consider lateral ischemia Abnormal ECG When compared with ECG of 23-MAY-2024 23:24, (unconfirmed) T wave inversion no longer evident in Anterior leads Confirmed by GABO PIEDRA M.D ([id number]) on 05/25/2024 3:55:52 PM [facility] 05/24/2024 10:5 5 PM DIEING OUT MACHINE OPERATOR 05/25/2024 3:55 PM DIEING OUT MACHINE OPERATOR us Christiano Ko MD ECG ORDERABLES Final Resul t [facility] [place] * eGFR (05/24/2024 8:54 PM DIEING OUT MACHINE OPERATOR) eGFR 90 >=60 mL/min/1. 73 [...] last reviewed 2021. Blood 05/24/2024 8:54 PM DIEING OUT MACHINE OPERATOR 05/24/2024 9:30 PM DIEING OUT MACHINE OPERATOR us Christiano Ko MD LAB BLOOD ORDERABLES Final Result Performing Organization Address [facility]/ZIP Co de Phone Number [facility] Department [place] [address] * (ABNORMAL) CBC without differential (05/24/2024 8:54 PM DIEING OUT MACHINE OPERATOR) WBC 7.1 3.8 - 9.9 K/cumm Hgb 9.1(L) 11.9 - 15.5 g/dL [facility] Hct 29.6(L) 35.6 - 45.5 % [facility] Plt 162 150 - 400 K/cumm [facility] MPV 11.4 9.1 - 12.3 fL [facility] RBC 3.10(L) 3.90 - 5.20 M/cumm [facility] MCV 95.5 81.3 - 96.4 fL [facility] MCH 29.4 27.1 - 33.3 pg [facility] MCHC 30.7(L) 32.3 - 35.7 g/dL [facility] RDW CV 14.5 11.1 - 14.9 % [facility] RDW SD 50.9(H) 35.7 - 48.1 fL [facility] NRBC abs 0.00 0.00 - 0.01 K/cumm [facility] Blood 05/24/2024 8:54 PM DIEING OUT MACHINE OPERATOR 05/24/2024 9:31 PM DIEING OUT MACHINE OPERATOR us Christiano Ko MD LAB BLOOD ORDERABLES Final Result [facility] Department [place] [address] * Phosphorus (05/24/2024 8:54 PM DIEING OUT MACHINE OPERATOR) Phosphorus, pl 2.5 2.3 - 4.5 mg/dL Blood 05/24/2024 8:54 PM DIEING OUT MACHINE OPERATOR 05/24/2024 9:30 PM DIEING OUT MACHINE OPERATOR Christiano Ko MD LAB BLOOD ORDERABLES Final Result Performing Organization Address City/[facility]/ZIP Co de Phone Number [facility] [place] [address] * Magnesium (05/24/2024 8:54 PM DIEING OUT MACHINE OPERATOR) [facility] Magnesium 2.0 1.4 - 2.5 mg/dL Blood 05/24/2024 8:54 PM DIEING OUT MACHINE OPERATOR 05/24/2024 9:30 PM DIEING OUT MACHINE OPERATOR Christiano Ko MD LAB BLOOD ORDERABLES Final Result Performing Organization Address [facility] de Phone Number [facility] Department [place] [address] * (ABNORMAL) Basic metabolic panel (05/24/2024 8:54 PM DIEING OUT MACHINE OPERATOR) [facility] Sodium 146(H) 135 - 145 mmol/L Potassium, pl 4.8 3.3 - 4.9 mmol/L [facility] Chloride 108 97 - 110 mmol/L [facility] CO2 30 22 - 32 mmol/L [facility] Anion gap 8 2 - 15 mmol/L [facility] BUN 19 6 - 25 mg/dL [facility] Creatinine 0.70 0.60 - 1.10 mg/dL [facility] Glucose 104 70 - 199 mg/dL [facility] Comment: Interpretive Data Fasting glucose >/= 126 [...] 2022. Calcium 9.1 8.5 - 10.3 mg/dL [facility] Blood 05/24/2024 8:54 PM DIEING OUT MACHINE OPERATOR 05/24/2024 9:30 PM DIEING OUT MACHINE OPERATOR Christiano Ko MD LAB BLOOD ORDERABLES Final Result Performing Organization Address City/[facility]/ZIP Co de Phone Number [facility] Department [place] [address] * ECG 12 lead (05/23/2024 11:24 PM DIEING OUT MACHINE OPERATOR) Ventricular Rate EKG/Min 88 BPM [facility] QRS-Interval (MSEC) 84 ms [facility] QT-Interval (MSEC) 364 ms [facility] QTc 440 ms [facility] R [place] 96 degrees [facility] T [place] 148 degrees [facility] Diagnosis Atrial fibrillation/flu tter Rightward axis Low voltage QRS ST & T wave abnormality, consider anterolateral ischemia Abnormal ECG When compared with ECG of 15-MAY-2024 07:03, ST now depressed in Lateral leads Nonspecific T wave abnormality, improved in Inferior leads T wave inversion now evident in Anterolateral leads QT has shortened Confirmed by GABO PIEDRA M.D ([id number]) on 05/26/2024 11:12:20 AM [facility] 05/23/2024 11:2 4 PM DIEING OUT MACHINE OPERATOR 05/26/2024 11:12 AM DIEING OUT MACHINE OPERATOR us Christiano Ko MD ECG ORDERABLES Final Resul t Performing Organization Address City/[facility]/ZIP Co de Phone Number [facility] * eGFR (05/23/2024 8:13 PM DIEING OUT MACHINE OPERATOR) eGFR 80 >=60 mL/min/1. 73 [...] last reviewed 2021. Blood 05/23/2024 8:13 PM DIEING OUT MACHINE OPERATOR 05/23/2024 9:00 PM DIEING OUT MACHINE OPERATOR us Christiano Ko MD LAB BLOOD ORDERABLES Final Result [facility] Department [place] [address] * (ABNORMAL) CBC without differential (05/23/2024 8:13 PM DIEING OUT MACHINE OPERATOR) WBC 7.3 3.8 - 9.9 K/cumm Hgb 8.7(L) 11.9 - 15.5 g/dL [facility] Hct 29.1(L) 35.6 - 45.5 % [facility] Plt 153 150 - 400 K/cumm [facility] MPV 11.5 9.1 - 12.3 fL [facility] RBC 3.00(L) 3.90 - 5.20 M/cumm [facility] MCV 97.0(H) 81.3 - 96.4 fL [facility] MCH 29.0 27.1 - 33.3 pg [facility] MCHC 29.9(L) 32.3 - 35.7 g/dL [facility] RDW CV 14.6 11.1 - 14.9 % [facility] RDW SD 52.3(H) 35.7 - 48.1 fL [facility] NRBC abs 0.00 0.00 - 0.01 K/cumm [facility] Blood 05/23/2024 8:13 PM DIEING OUT MACHINE OPERATOR 05/23/2024 9:03 PM DIEING OUT MACHINE OPERATOR Christiano Ko MD LAB BLOOD ORDERABLES Final Result Performing Organization Address [facility] Co de Phone Number [facility] [place] [address] * (ABNORMAL) Phosphorus (05/23/2024 8:13 PM DIEING OUT MACHINE OPERATOR) [facility] Phosphorus, pl 2.2(L) 2.3 - 4.5 mg/dL Blood 05/23/2024 8:13 PM DIEING OUT MACHINE OPERATOR 05/23/2024 9:00 PM DIEING OUT MACHINE OPERATOR Christiano Ko MD LAB BLOOD ORDERABLES Final Result Performing Organization Address [facility] Co de Phone Number [facility] [place] [address] * Magnesium (05/23/2024 8:13 PM DIEING OUT MACHINE OPERATOR) [facility] Magnesium 2.0 1.4 - 2.5 mg/dL Blood 05/23/2024 8:13 PM DIEING OUT MACHINE OPERATOR 05/23/2024 9:00 PM DIEING OUT MACHINE OPERATOR Christiano Ko MD LAB BLOOD ORDERABLES Final Result Performing Organization Address [facility] [place] [address] * Basic metabolic panel (05/23/2024 8:13 PM DIEING OUT MACHINE OPERATOR) [facility] Sodium 145 135 - 145 mmol/L Potassium, pl 4.2 3.3 - 4.9 mmol/L [facility] Chloride 106 97 - 110 mmol/L [facility] CO2 32 22 - 32 mmol/L [facility] [facility] Anion gap 7 2 - 15 mmol/L [facility] BUN 20 6 - 25 mg/dL [facility] Creatinine 0.77 0.60 - 1.10 mg/dL [facility] Glucose 148 70 - 199 mg/dL [facility] Comment: Interpretive Data Fasting glucose >/= 126 [...] 2022. Calcium 8.6 8.5 - 10.3 mg/dL [facility] Blood 05/23/2024 8:13 PM DIEING OUT MACHINE OPERATOR 05/23/2024 9:00 PM DIEING OUT MACHINE OPERATOR us Christiano Ko MD LAB BLOOD ORDERABLES Final Result [facility] Department [place] [address] * Critical Care (05/23/2024 6:40 AM DIEING OUT MACHINE OPERATOR) Narrative Kelvin Delgado MD - 05/23/2024 6:40 AM DIEING OUT MACHINE OPERATOR Kelvin Delgado MD 05/23/2024 5:18 [...] plan with the patient's team and other medical/sales development consultant staff. This time was in addition to and separate from care provided by other practitioners on this day of service. I spent time reviewing and interpreting data from bedside monitors, laboratory results, and imaging and I spent time documenting in the medical record us Olga Meehan RESIDENTIAL COORDINATOR IN CLINIC/BEDSIDE O RDERABLES Final Result * POCT glucose (05/22/2024 11:10 PM DIEING OUT MACHINE OPERATOR) Glucose, POC 98 70 - 199 mg/dL Blood 05/22/2024 11:1 0 PM DIEING OUT MACHINE OPERATOR 05/22/2024 11:10 PM DIEING OUT MACHINE OPERATOR Christiano Ko MD LAB POCT ORDERABLES - DEVIC E Final Result Performing Organization Address [facility] Co de Phone Number [facility] [place] [address] * eGFR (05/22/2024 8:23 PM DIEING OUT MACHINE OPERATOR) eGFR 71 >=60 mL/min/1. 73 [...] last reviewed 2021. Blood 05/22/2024 8:23 PM DIEING OUT MACHINE OPERATOR 05/22/2024 8:36 PM DIEING OUT MACHINE OPERATOR Christiano Ko MD LAB BLOOD ORDERABLES Final Result Performing Organization Address City/[facility] Co de Phone Number [facility] [place] [address] * (ABNORMAL) CBC without differential (05/22/2024 8:23 PM DIEING OUT MACHINE OPERATOR) [facility] WBC 7.0 3.8 - 9.9 K/cumm Hgb 8.9(L) 11.9 - 15.5 g/dL [facility] Hct 29.2(L) 35.6 - 45.5 % [facility] Plt 158 150 - 400 K/cumm [facility] MPV 11.0 9.1 - 12.3 fL [facility] RBC 3.03(L) 3.90 - 5.20 M/cumm [facility] MCV 96.4 81.3 - 96.4 fL [facility] MCH 29.4 27.1 - 33.3 pg [facility] MCHC 30.5(L) 32.3 - 35.7 g/dL [facility] RDW CV 14.8 11.1 - 14.9 % [facility] RDW SD 52.5(H) 35.7 - 48.1 fL [facility] NRBC abs 0.00 0.00 - 0.01 K/cumm [facility] Blood 05/22/2024 8:23 PM DIEING OUT MACHINE OPERATOR 05/22/2024 8:36 PM DIEING OUT MACHINE OPERATOR Christiano Ko MD LAB BLOOD ORDERABLES Final Result Performing Organization Address [facility] Co de Phone Number [facility] [place] [address] * Phosphorus (05/22/2024 8:23 PM DIEING OUT MACHINE OPERATOR) [facility] Phosphorus, pl 3.0 2.3 - 4.5 mg/dL Blood 05/22/2024 8:23 PM DIEING OUT MACHINE OPERATOR 05/22/2024 8:36 PM DIEING OUT MACHINE OPERATOR Christiano Ko MD LAB BLOOD ORDERABLES Final Result Performing Organization Address [facility] Co de Phone Number [facility] Department [place] [address] * Magnesium (05/22/2024 8:23 PM DIEING OUT MACHINE OPERATOR) Magnesium 2.2 1.4 - 2.5 mg/dL Blood 05/22/2024 8:23 PM DIEING OUT MACHINE OPERATOR 05/22/2024 8:36 PM DIEING OUT MACHINE OPERATOR Christiano Ko MD LAB BLOOD ORDERABLES Final Result Performing Organization Address [facility]/ZIP Co de Phone Number [facility] Department [place] [address] * (ABNORMAL) Basic metabolic panel (05/22/2024 8:23 PM DIEING OUT MACHINE OPERATOR) Pathologist [facility] Sodium 146(H) 135 - 145 mmol/L Potassium, pl 4.1 3.3 - 4.9 mmol/L [facility] Chloride 106 97 - 110 mmol/L [facility] CO2 33(H) 22 - 32 mmol/L [facility] Anion gap 7 2 - 15 mmol/L [facility] BUN 26(H) 6 - 25 mg/dL [facility] Creatinine 0.85 0.60 - 1.10 mg/dL [facility] Glucose 122 70 - 199 mg/dL [facility] Comment: Interpretive Data Fasting glucose >/= 126 [...] 2022. Calcium 8.2(L) 8.5 - 10.3 mg/dL [facility] Blood 05/22/2024 8:23 PM DIEING OUT MACHINE OPERATOR 05/22/2024 8:36 PM DIEING OUT MACHINE OPERATOR Christiano Ko MD LAB BLOOD ORDERABLES Final Result Performing Organization Address City/[facility]/ZIP Co de Phone Number [place] [facility] Department [place] [address] * Critical Care (05/22/2024 7:32 PM DIEING OUT MACHINE OPERATOR) Narrative Murtaza Garcia MD - 05/22/2024 7:32 PM DIEING OUT MACHINE OPERATOR Murtaza Garcia MD 05/23/2024 6:19 [...] plan with the patient's team and other medical/sales development consultant staff. This time was in addition to and separate from care provided by other practitioners on this day of service. us Preston HINOJOSA IN CLINIC/BEDSI DE ORDERABLES Final Result * POCT glucose (05/22/2024 6:58 PM DIEING OUT MACHINE OPERATOR) Glucose, POC 115 70 - 199 mg/dL Blood 05/22/2024 6:58 PM DIEING OUT MACHINE OPERATOR 05/22/2024 6:58 PM DIEING OUT MACHINE OPERATOR us Christiano Ko MD LAB POCT ORDERABLES - DEVIC E Final Result Performing Organization Address [facility] Co de Phone Number [place] [facility] Department [place] [address] * (ABNORMAL) Iron profile w/ IBC (05/22/2024 3:44 PM DIEING OUT MACHINE OPERATOR) Iron 29(L) 35 - 145 mcg/dL TIBC 258 250 - 400 mcg/dL [facility] Transferrin saturation 11(L) 20 - 50 % [facility] Blood 05/22/2024 3:44 PM DIEING OUT MACHINE OPERATOR 05/22/2024 4:15 PM DIEING OUT MACHINE OPERATOR Earnestine Kelly MD LAB BLOOD ORDERABLES Kylie l Result Performing Organization Address [facility] de Phone Number [facility] [place] [address] * POCT glucose (05/22/2024 3:03 PM DIEING OUT MACHINE OPERATOR) Glucose, POC 111 70 - 199 mg/dL Blood 05/22/2024 3:03 PM DIEING OUT MACHINE OPERATOR 05/22/2024 3:03 PM DIEING OUT MACHINE OPERATOR Christiano Ko MD LAB POCT ORDERABLES - DEVIC E Final Result Performing Organization Address [facility] Phone Number [facility] [place] [address] * POCT glucose (05/22/2024 10:55 AM DIEING OUT MACHINE OPERATOR) Glucose, POC 130 70 - 199 mg/dL Blood 05/22/2024 10:5 5 AM DIEING OUT MACHINE OPERATOR 05/22/2024 10:55 AM DIEING OUT MACHINE OPERATOR Christiano Ko MD LAB POCT ORDERABLES - DEVIC E Final Result Performing Organization Address [facility] de Phone Number [facility] [place] [address] * POCT glucose (05/22/2024 7:01 AM DIEING OUT MACHINE OPERATOR) Glucose, POC 128 70 - 199 mg/dL Blood 05/22/2024 7:01 AM DIEING OUT MACHINE OPERATOR 05/22/2024 7:01 AM DIEING OUT MACHINE OPERATOR Christiano Ko MD LAB POCT ORDERABLES - DEVIC E Final Result Performing Organization Address [facility]/ZIP Co de Phone Number [facility] Department [place] [address] * Critical Care (05/22/2024 6:44 AM DIEING OUT MACHINE OPERATOR) Narrative Earnestine Kelly MD - 05/22/2024 6:44 AM DIEING OUT MACHINE OPERATOR Earnestine Kelly MD 05/22/2024 6:05 [...] plan with the ICU team and other medical/sales development consultant staff, making frequent assessments and decisions [...] (ABNORMAL) Blood gas, arterial (05/22/2024 4:31 AM DIEING OUT MACHINE OPERATOR) [facility] pH, Art 7.44 7.35 - 7.45 PCO2, Arterial 49(H) 35 - 45 mmHg [facility] PO2, Arterial 136(H) 83 - 108 mmHg [facility] HCO3 Art (Calculated) 34(H) 20 - 30 mmol/L [facility] BE, art 8 mmol/L [facility] Comment: Interpretive Data No Reference Range Established Current Interpretive Data was last revised on 2017 O2 Sat Art (Measured) 100(H) 90 - 95 % [facility] Blood 05/22/2024 4:31 AM DIEING OUT MACHINE OPERATOR 05/22/2024 4:37 AM DIEING OUT MACHINE OPERATOR Lynsey Otoole NP LAB BLOOD ORDER TEDDY Final Result Performing Organization Address [facility] Co de Phone Number [facility] [place] [address] * POCT glucose (05/22/2024 3:02 AM DIEING OUT MACHINE OPERATOR) Glucose, POC 149 70 - 199 mg/dL Blood 05/22/2024 3:02 AM DIEING OUT MACHINE OPERATOR 05/22/2024 3:02 AM DIEING OUT MACHINE OPERATOR Christiano Ko MD LAB POCT ORDERABLES - DEVIC E Final Result Performing Organization Address [facility] Co de Phone Number [facility] [place] [address] * POCT glucose (05/21/2024 10:54 PM DIEING OUT MACHINE OPERATOR) Glucose, POC 122 70 - 199 mg/dL Blood 05/21/2024 10:5 4 PM DIEING OUT MACHINE OPERATOR 05/21/2024 10:54 PM DIEING OUT MACHINE OPERATOR Christiano Ko MD LAB POCT ORDERABLES - DEVIC E Final Result Performing Organization Address [facility] Co de Phone Number [facility] [place] [address] * eGFR (05/21/2024 8:54 PM DIEING OUT MACHINE OPERATOR) eGFR 71 >=60 mL/min/1. 73 [...] last reviewed 2021. Blood 05/21/2024 8:54 PM DIEING OUT MACHINE OPERATOR 05/21/2024 9:16 PM DIEING OUT MACHINE OPERATOR Christiano Ko MD LAB BLOOD ORDERABLES Final Result [facility] Department [place] [address] * (ABNORMAL) CBC without differential (05/21/2024 8:54 PM DIEING OUT MACHINE OPERATOR) WBC 6.7 3.8 - 9.9 K/cumm Hgb 9.5(L) 11.9 - 15.5 g/dL [facility] Hct 29.7(L) 35.6 - 45.5 % [facility] Plt 145(L) 150 - 400 K/cumm [facility] MPV 10.9 9.1 - 12.3 fL [facility] RBC 3.14(L) 3.90 - 5.20 M/cumm [facility] MCV 94.6 81.3 - 96.4 fL [facility] MCH 30.3 27.1 - 33.3 pg [facility] MCHC 32.0(L) 32.3 - 35.7 g/dL [facility] RDW CV 14.8 11.1 - 14.9 % [facility] RDW SD 51.6(H) 35.7 - 48.1 fL [facility] NRBC abs 0.00 0.00 - 0.01 K/cumm [facility] Blood 05/21/2024 8:54 PM DIEING OUT MACHINE OPERATOR 05/21/2024 9:16 PM DIEING OUT MACHINE OPERATOR Christiano Ko MD LAB BLOOD ORDERABLES Final Result Performing Organization Address [facility] Co de Phone Number [facility] [place] [address] * Phosphorus (05/21/2024 8:54 PM DIEING OUT MACHINE OPERATOR) Pathologist [facility] Phosphorus, pl 2.5 2.3 - 4.5 mg/dL Blood 05/21/2024 8:54 PM DIEING OUT MACHINE OPERATOR 05/21/2024 9:16 PM DIEING OUT MACHINE OPERATOR Christiano Ko MD LAB BLOOD ORDERABLES Final Result Performing Organization Address [facility] de Phone Number [facility] [place] [address] * Magnesium (05/21/2024 8:54 PM DIEING OUT MACHINE OPERATOR) [facility] Magnesium 1.9 1.4 - 2.5 mg/dL Blood 05/21/2024 8:54 PM DIEING OUT MACHINE OPERATOR 05/21/2024 9:16 PM DIEING OUT MACHINE OPERATOR Christiano Ko MD LAB BLOOD ORDERABLES Final Result Performing Organization Address [facility] de Phone Number [facility] [place] [address] * (ABNORMAL) Blood gas, arterial (05/21/2024 8:54 PM DIEING OUT MACHINE OPERATOR) pH, Art 7.45 7.35 - 7.45 PCO2, Arterial 52(H) 35 - 45 mmHg [facility] PO2, Arterial 63(L) 83 - 108 mmHg [facility] HCO3 Art (Calculated) 37(H) 20 - 30 mmol/L [facility] BE, art 10 mmol/L [facility] Comment: Interpretive Data No Reference Range Established Current Interpretive Data was last revised on 2017 O2 Sat Art (Measured) 92 90 - 95 % [facility] Blood 05/21/2024 8:54 PM DIEING OUT MACHINE OPERATOR 05/21/2024 9:09 PM DIEING OUT MACHINE OPERATOR Christiano Ko MD LAB BLOOD ORDERABLES Final Result [facility] Department [place] [address] * (ABNORMAL) Basic metabolic panel (05/21/2024 8:54 PM DIEING OUT MACHINE OPERATOR) Sodium 143 135 - 145 mmol/L Potassium, pl 3.5 3.3 - 4.9 mmol/L [facility] Chloride 101 97 - 110 mmol/L [facility] CO2 35(H) 22 - 32 mmol/L [facility] Anion gap 7 2 - 15 mmol/L [facility] BUN 19 6 - 25 mg/dL [facility] Creatinine 0.85 0.60 - 1.10 mg/dL [facility] Glucose 125 70 - 199 mg/dL [facility] Comment: Interpretive Data Fasting glucose >/= 126 [...] 2022. Calcium 8.7 8.5 - 10.3 mg/dL [facility] Blood 05/21/2024 8:54 PM DIEING OUT MACHINE OPERATOR 05/21/2024 9:16 PM DIEING OUT MACHINE OPERATOR Christiano Ko MD LAB BLOOD ORDERABLES Final Result Performing Organization Address City/[facility]/ZIP Co de Phone Number [facility] Department [place] [address] * XR Chest 1 View (05/21/2024 8:36 PM DIEING OUT MACHINE OPERATOR) Anatomical Region Laterality Modality Body, Chest N/A Computed Radiogr aphy 05/22/2024 9:45 AM DIEING OUT MACHINE OPERATOR Impressions 05/22/2024 10:11 AM DIEING OUT MACHINE OPERATOR Comparison is made to radiograph [...] David Hogan M.D. Narrative 05/22/2024 10:11 AM DIEING OUT MACHINE OPERATOR EXAMINATION: 1 view chest radiograph [...] Result * Critical Care (05/21/2024 8:00 PM DIEING OUT MACHINE OPERATOR) Narrative Renay Weber MD - 05/21/2024 8:00 PM DIEING OUT MACHINE OPERATOR Renay Weber MD 05/28/2024 11:57 [...] plan with the ICU team and other medical/sales development consultant staff, making frequent assessments and decisions [...] time documenting in the medical record us Lynsey Otoole RESIDENTIAL COORDINATOR IN CLINIC/BEDSI DE ORDERABLES Final Result * POCT glucose (05/21/2024 7:43 PM DIEING OUT MACHINE OPERATOR) Glucose, POC 150 70 - 199 mg/dL Blood 05/21/2024 7:43 PM DIEING OUT MACHINE OPERATOR 05/21/2024 7:43 PM DIEING OUT MACHINE OPERATOR us Christiano Ko MD LAB POCT ORDERABLES - DEVIC E Final Result [facility] Department [place] [address] * (ABNORMAL) Blood gas, arterial (05/21/2024 3:11 PM DIEING OUT MACHINE OPERATOR) pH, Art 7.44 7.35 - 7.45 PCO2, Arterial 50(H) 35 - 45 mmHg [facility] PO2, Arterial 157(H) 83 - 108 mmHg [facility] HCO3 Art (Calculated) 35(H) 20 - 30 mmol/L [facility] BE, art 8 mmol/L [facility] Comment: Interpretive Data No Reference Range Established Current Interpretive Data was last revised on 2017 O2 Sat Art (Measured) 100(H) 90 - 95 % [facility] Blood 05/21/2024 3:11 PM DIEING OUT MACHINE OPERATOR 05/21/2024 3:16 PM DIEING OUT MACHINE OPERATOR Sebastian HINOJOSA LAB BLOOD ORDERABLES Fi nal Result Performing Organization Address [facility] Co de Phone Number [facility] [place] [address] * POCT glucose (05/21/2024 3:10 PM DIEING OUT MACHINE OPERATOR) Glucose, POC 135 70 - 199 mg/dL Blood 05/21/2024 3:10 PM DIEING OUT MACHINE OPERATOR 05/21/2024 3:10 PM DIEING OUT MACHINE OPERATOR Christiano Ko MD LAB POCT ORDERABLES - DEVIC E Final Result Performing Organization Address [facility] Co de Phone Number [facility] [place] [address] * POCT glucose (05/21/2024 11:14 AM DIEING OUT MACHINE OPERATOR) Glucose, POC 122 70 - 199 mg/dL Blood 05/21/2024 11:1 4 AM DIEING OUT MACHINE OPERATOR 05/21/2024 11:14 AM DIEING OUT MACHINE OPERATOR Christiano Ko MD LAB POCT ORDERABLES - DEVIC E Final Result Performing Organization Address [facility] Co de Phone Number [facility] [place] [address] * (ABNORMAL) Thyroid Function [place] (05/21/2024 9:07 AM DIEING OUT MACHINE OPERATOR) Pathologist [facility] TSH 5.20(H) 0.30 - 4.20 mcIUnit/mL Blood 05/21/2024 9:07 AM DIEING OUT MACHINE OPERATOR 05/21/2024 9:28 AM DIEING OUT MACHINE OPERATOR Sebastian HINOJOSA LAB BLOOD ORDERABLES Fi nal Result Performing Organization Address [facility] Co de Phone Number [facility] Department [place] [address] * Triglycerides (05/21/2024 9:07 AM DIEING OUT MACHINE OPERATOR) [facility] Triglycerides 139 <=149 mg/dL Comment: Interpretive Data [...] revised on 2017. Blood 05/21/2024 9:07 AM DIEING OUT MACHINE OPERATOR 05/21/2024 9:28 AM DIEING OUT MACHINE OPERATOR Narrative [facility] - 05/21/2024 9:56 AM DIEING OUT MACHINE OPERATOR While on propofol infusion. Preston HINOJOSA LAB BLOOD ORDER TEDDY Final Result Performing Organization Address [facility] Co de Phone Number [facility] [place] [address] * T4, free (05/21/2024 9:07 AM DIEING OUT MACHINE OPERATOR) Free T4 1.35 0.90 - 1.70 ng/dL Blood 05/21/2024 9:07 AM DIEING OUT MACHINE OPERATOR 05/21/2024 9:28 AM DIEING OUT MACHINE OPERATOR Narrative [facility] - 05/21/2024 10:34 AM DIEING OUT MACHINE OPERATOR This test was reflexed from a TSH result. Sebastian HINOJOSA LAB BLOOD ORDERABLES Ed ited Result - Final Performing Organization Address [facility] Co de Phone Number [facility] [place] [address] * Ammonia (05/21/2024 9:07 AM DIEING OUT MACHINE OPERATOR) Ammonia 27 <=50 mcmol/L Blood 05/21/2024 9:07 AM DIEING OUT MACHINE OPERATOR 05/21/2024 9:29 AM DIEING OUT MACHINE OPERATOR Sebastian HINOJOSA LAB BLOOD ORDERABLES Fi nal Result Performing Organization Address [facility] Co de Phone Number [facility] [place] [address] * POCT glucose (05/21/2024 7:24 AM DIEING OUT MACHINE OPERATOR) Glucose, POC 138 70 - 199 mg/dL Blood 05/21/2024 7:24 AM DIEING OUT MACHINE OPERATOR 05/21/2024 7:24 AM DIEING OUT MACHINE OPERATOR Christiano Ko MD LAB POCT ORDERABLES - DEVIC E Final Result Performing Organization Address [facility] Co de Phone Number [facility] [place] [address] * Critical Care (05/21/2024 7:02 AM DIEING OUT MACHINE OPERATOR) Narrative Earnestine Kelly MD - 05/21/2024 7:02 AM DIEING OUT MACHINE OPERATOR Earnestine Kelly MD 05/22/2024 3:03 [...] plan with the ICU team and other medical/sales development consultant staff, making frequent assessments and decisions [...] Result * POCT glucose (05/21/2024 3:47 AM DIEING OUT MACHINE OPERATOR) Glucose, POC 161 70 - 199 mg/dL Blood 05/21/2024 3:47 AM DIEING OUT MACHINE OPERATOR 05/21/2024 3:47 AM DIEING OUT MACHINE OPERATOR us Christiano Ko MD LAB POCT ORDERABLES - DEVIC E Final Result Performing Organization Address City/State/[facility] Co de Phone Number [facility] Department [place] [address] * XR Chest 1 View (05/21/2024 12:12 AM DIEING OUT MACHINE OPERATOR) Anatomical Region Laterality Modality Body, Chest N/A Computed Radiogr aphy 05/21/2024 8:02 AM DIEING OUT MACHINE OPERATOR Impressions 05/21/2024 8:02 AM DIEING OUT MACHINE OPERATOR Comparison is made to radiograph [...] Nestor Seth M.D. Narrative 05/21/2024 8:02 AM DIEING OUT MACHINE OPERATOR EXAMINATION: 1 view chest radiograph [...] Result * POCT glucose (05/20/2024 11:29 PM DIEING OUT MACHINE OPERATOR) Glucose, POC 140 70 - 199 mg/dL Blood 05/20/2024 11:2 9 PM DIEING OUT MACHINE OPERATOR 05/20/2024 11:29 PM DIEING OUT MACHINE OPERATOR Christiano Ko MD LAB POCT ORDERABLES - DEVIC E Final Result [facility] Department [place] [address] * XR Abdomen 1 View AP (05/20/2024 8:05 PM DIEING OUT MACHINE OPERATOR) Anatomical Region Laterality Modality Body, Abdomen N/A Computed Radiogr aphy 05/21/2024 8:36 AM DIEING OUT MACHINE OPERATOR Impressions 05/21/2024 8:36 AM DIEING OUT MACHINE OPERATOR An enteric tube tip terminates in the distal gastric body, with the stylette in place. Relative paucity of bowel gas in the imaged upper abdomen. Dictated by: Kvng Pan MD The radiology attending physician has personally reviewed this study, and had reviewed and/or edited this written report and agrees with it. Electronically signed by: Renetta Farr M.D. Narrative 05/21/2024 8:36 AM DIEING OUT MACHINE OPERATOR EXAMINATION: Abdomen, one view. HISTORY: [...] inal Result * eGFR (05/20/2024 7:44 PM DIEING OUT MACHINE OPERATOR) eGFR 75 >=60 mL/min/1. 73 [...] last reviewed 2021. Blood 05/20/2024 7:44 PM DIEING OUT MACHINE OPERATOR 05/20/2024 8:03 PM DIEING OUT MACHINE OPERATOR Christiano Ko MD LAB BLOOD ORDERABLES Final Result Performing Organization Address [facility] Co de Phone Number [facility] [place] [address] * (ABNORMAL) CBC without differential (05/20/2024 7:44 PM DIEING OUT MACHINE OPERATOR) WBC 7.1 3.8 - 9.9 K/cumm Hgb 9.9(L) 11.9 - 15.5 g/dL [facility] Hct 31.5(L) 35.6 - 45.5 % [facility] Plt 157 150 - 400 K/cumm [facility] MPV 10.6 9.1 - 12.3 fL [facility] RBC 3.40(L) 3.90 - 5.20 M/cumm [facility] MCV 92.6 81.3 - 96.4 fL [facility] MCH 29.1 27.1 - 33.3 pg [facility] MCHC 31.4(L) 32.3 - 35.7 g/dL [facility] RDW CV 14.7 11.1 - 14.9 % [facility] RDW SD 50.2(H) 35.7 - 48.1 fL [facility] NRBC abs 0.00 0.00 - 0.01 K/cumm [facility] Blood 05/20/2024 7:44 PM DIEING OUT MACHINE OPERATOR 05/20/2024 7:56 PM DIEING OUT MACHINE OPERATOR Christiano Ko MD LAB BLOOD ORDERABLES Final Result Performing Organization Address City/[facility]/ZIP Co de Phone Number [facility] Department [place] [address] * Phosphorus (05/20/2024 7:44 PM DIEING OUT MACHINE OPERATOR) [facility] Phosphorus, pl 3.9 2.3 - 4.5 mg/dL Blood 05/20/2024 7:44 PM DIEING OUT MACHINE OPERATOR 05/20/2024 7:56 PM DIEING OUT MACHINE OPERATOR Christiano Ko MD LAB BLOOD ORDERABLES Final Result Performing Organization Address City/[facility] Co de Phone Number [facility] Department [place] [address] * Magnesium (05/20/2024 7:44 PM DIEING OUT MACHINE OPERATOR) [facility] Magnesium 2.3 1.4 - 2.5 mg/dL Blood 05/20/2024 7:44 PM DIEING OUT MACHINE OPERATOR 05/20/2024 7:56 PM DIEING OUT MACHINE OPERATOR Christiano Ko MD LAB BLOOD ORDERABLES Final Result Performing Organization Address [facility] de Phone Number [facility] [place] [address] * (ABNORMAL) Basic metabolic panel (05/20/2024 7:44 PM DIEING OUT MACHINE OPERATOR) [facility] Sodium 142 135 - 145 mmol/L Potassium, pl 4.0 3.3 - 4.9 mmol/L [facility] Chloride 98 97 - 110 mmol/L [facility] CO2 36(H) 22 - 32 mmol/L [facility] Anion gap 8 2 - 15 mmol/L [facility] BUN 18 6 - 25 mg/dL [facility] Creatinine 0.81 0.60 - 1.10 mg/dL [facility] Glucose 139 70 - 199 mg/dL [facility] Comment: Interpretive Data Fasting glucose >/= 126 [...] 2022. Calcium 8.7 8.5 - 10.3 mg/dL [facility] Blood 05/20/2024 7:44 PM DIEING OUT MACHINE OPERATOR 05/20/2024 7:56 PM DIEING OUT MACHINE OPERATOR us Christiano Ko MD LAB BLOOD ORDERABLES Final Result Performing Organization Address [facility] Co de Phone Number [facility] Department [place] [address] * POCT glucose (05/20/2024 7:36 PM DIEING OUT MACHINE OPERATOR) [facility] Signature Glucose, POC 149 70 - 199 mg/dL Blood 05/20/2024 7:36 PM DIEING OUT MACHINE OPERATOR 05/20/2024 7:36 PM DIEING OUT MACHINE OPERATOR us Christiano Ko MD LAB POCT ORDERABLES - DEVIC E Final Result Performing Organization Address [facility] de Phone Number [facility] [place] [address] * Critical Care (05/20/2024 6:22 PM DIEING OUT MACHINE OPERATOR) Narrative Renay Weber MD - 05/20/2024 6:22 PM DIEING OUT MACHINE OPERATOR Renay Weber MD 05/28/2024 11:45 PM Critical Care Performed by: Yesenia Moar PA Authorized by: Yesenia Mora PA CRITICAL [...] plan with the ICU team and other medical/sales development consultant staff, making frequent assessments and decisions [...] Result * POCT glucose (05/20/2024 3:33 PM DIEING OUT MACHINE OPERATOR) Glucose, POC 156 70 - 199 mg/dL Blood 05/20/2024 3:33 PM DIEING OUT MACHINE OPERATOR 05/20/2024 3:33 PM DIEING OUT MACHINE OPERATOR Christiano Ko MD LAB POCT ORDERABLES - DEVIC E Final Result Performing Organization Address [facility]/ZIP Co de Phone Number [facility] [place] [address] * POCT glucose (05/20/2024 11:36 AM DIEING OUT MACHINE OPERATOR) Glucose, POC 166 70 - 199 mg/dL Blood 05/20/2024 11:3 6 AM DIEING OUT MACHINE OPERATOR 05/20/2024 11:36 AM DIEING OUT MACHINE OPERATOR Christiano Ko MD LAB POCT ORDERABLES - DEVIC E Final Result [facility] [place] [address] * POCT glucose (05/20/2024 7:28 AM DIEING OUT MACHINE OPERATOR) Glucose, POC 167 70 - 199 mg/dL Blood 05/20/2024 7:28 AM DIEING OUT MACHINE OPERATOR 05/20/2024 7:28 AM DIEING OUT MACHINE OPERATOR us Christiano Ko MD LAB POCT ORDERABLES - DEVIC E Final Result [facility] Department [place] [address] * Critical Care (05/20/2024 7:27 AM DIEING OUT MACHINE OPERATOR) Narrative Earnestine Kelly MD - 05/20/2024 7:27 AM DIEING OUT MACHINE OPERATOR Earnestine Kelly MD 05/22/2024 3:02 [...] plan with the ICU team and other medical/sales development consultant staff, making frequent assessments and decisions [...] XR Chest 1 View (05/20/2024 6:25 AM DIEING OUT MACHINE OPERATOR) Anatomical Region Laterality Modality Body, Chest N/A Computed Radiogr aphy 05/20/2024 9:29 AM DIEING OUT MACHINE OPERATOR Impressions 05/20/2024 9:29 AM DIEING OUT MACHINE OPERATOR The current study is compared with the prior radiograph dated 05/19/2024. The endotracheal tube tip is 1.5 cm above the janis. Stable small left pleural effusion with underlying left lower lobe collapse. Small right pleural effusion with mild atelectasis is unchanged. Stable mild pulmonary edema. No pneumothorax. Stable cardiomegaly. Electronically signed by: Matt Willis MD, PHD Narrative 05/20/2024 9:29 AM DIEING OUT MACHINE OPERATOR EXAMINATION: 1 view chest radiograph [...] Result * POCT glucose (05/20/2024 3:47 AM DIEING OUT MACHINE OPERATOR) Pathologist [facility] Glucose, POC 157 70 - 199 mg/dL Blood 05/20/2024 3:47 AM DIEING OUT MACHINE OPERATOR 05/20/2024 3:47 AM DIEING OUT MACHINE OPERATOR Christiano Ko MD LAB POCT ORDERABLES - DEVIC E Final Result Performing Organization Address City/State/[facility] Co de Phone Number [facility] Department [place] [address] * (ABNORMAL) Blood gas, arterial (05/20/2024 3:01 AM DIEING OUT MACHINE OPERATOR) pH, Art 7.48(H) 7.35 - 7.45 PCO2, Arterial 48(H) 35 - 45 mmHg [facility] PO2, Arterial 100 83 - 108 mmHg [facility] HCO3 Art (Calculated) 37(H) 20 - 30 mmol/L [facility] BE, art 11 mmol/L [facility] Comment: Interpretive Data No Reference Range Established Current Interpretive Data was last revised on 2017 O2 Sat Art (Measured) 98(H) 90 - 95 % [facility] Blood 05/20/2024 3:01 AM DIEING OUT MACHINE OPERATOR 05/20/2024 3:12 AM DIEING OUT MACHINE OPERATOR us Yesenia HINOJOSA LAB BLOOD ORDERABLE S Final Result Performing Organization Address City/[facility]/ZIP Co de Phone Number [facility] Department [place] [address] * POCT glucose (05/19/2024 11:34 PM DIEING OUT MACHINE OPERATOR) Glucose, POC 152 70 - 199 mg/dL Blood 05/19/2024 11:3 4 PM DIEING OUT MACHINE OPERATOR 05/19/2024 11:34 PM DIEING OUT MACHINE OPERATOR Christiano Ko MD LAB POCT ORDERABLES - DEVIC E Final Result Performing Organization Address [facility] de Phone Number [facility] Department [place] [address] * eGFR (05/19/2024 9:35 PM DIEING OUT MACHINE OPERATOR) eGFR 79 >=60 mL/min/1. 73 m2 Comment: [...] last reviewed 2021. Blood 05/19/2024 9:35 PM DIEING OUT MACHINE OPERATOR 05/19/2024 9:49 PM DIEING OUT MACHINE OPERATOR Christiano Ko MD LAB BLOOD ORDERABLES Final Result Performing Organization Address [facility] Co de Phone Number [facility] [place] [address] * (ABNORMAL) CBC without differential (05/19/2024 9:35 PM DIEING OUT MACHINE OPERATOR) WBC 5.7 3.8 - 9.9 K/cumm Hgb 9.4(L) 11.9 - 15.5 g/dL [facility] Hct 30.1(L) 35.6 - 45.5 % [facility] Plt 146(L) 150 - 400 K/cumm [facility] MPV 10.2 9.1 - 12.3 fL [facility] RBC 3.21(L) 3.90 - 5.20 M/cumm [facility] MCV 93.8 81.3 - 96.4 fL [facility] Comment:MCV delta due to tasha gical procedure. MCH 29.3 27.1 - 33.3 pg [facility] MCHC 31.2(L) 32.3 - 35.7 g/dL [facility] RDW CV 14.5 11.1 - 14.9 % [facility] RDW SD 49.4(H) 35.7 - 48.1 fL [facility] NRBC abs 0.00 0.00 - 0.01 K/cumm [facility] Blood 05/19/2024 9:35 PM DIEING OUT MACHINE OPERATOR 05/19/2024 9:50 PM DIEING OUT MACHINE OPERATOR Christiano Ko MD LAB BLOOD ORDERABLES Final Result Performing Organization Address [facility]/ZIP Co de Phone Number [facility] [place] [address] * Phosphorus (05/19/2024 9:35 PM DIEING OUT MACHINE OPERATOR) Pathologist [facility] Phosphorus, pl 3.4 2.3 - 4.5 mg/dL Blood 05/19/2024 9:35 PM DIEING OUT MACHINE OPERATOR 05/19/2024 9:47 PM DIEING OUT MACHINE OPERATOR Christiano Ko MD LAB BLOOD ORDERABLES Final Result Performing Organization Address [facility] de Phone Number [facility] Department [place] [address] * Magnesium (05/19/2024 9:35 PM DIEING OUT MACHINE OPERATOR) [facility] Magnesium 2.2 1.4 - 2.5 mg/dL Blood 05/19/2024 9:35 PM DIEING OUT MACHINE OPERATOR 05/19/2024 9:47 PM DIEING OUT MACHINE OPERATOR Christiano Ko MD LAB BLOOD ORDERABLES Final Result Performing Organization Address [facility] de Phone Number [facility] Department [place] [address] * (ABNORMAL) Blood gas, arterial (05/19/2024 9:35 PM DIEING OUT MACHINE OPERATOR) [facility] pH, Art 7.48(H) 7.35 - 7.45 PCO2, Arterial 50(H) 35 - 45 mmHg [facility] PO2, Arterial 64(L) 83 - 108 mmHg [facility] HCO3 Art (Calculated) 38(H) 20 - 30 mmol/L [facility] BE, art 12 mmol/L [facility] Comment: Interpretive Data No Reference Range Established Current Interpretive Data was last revised on 2017 O2 Sat Art (Measured) 94 90 - 95 % [facility] Blood 05/19/2024 9:35 PM DIEING OUT MACHINE OPERATOR 05/19/2024 9:45 PM DIEING OUT MACHINE OPERATOR Preston HINOJOSA LAB BLOOD ORDER TEDDY Final Result Performing Organization Address [facility]/State/ZIP Co de Phone Number [facility] Department [place] [address] * (ABNORMAL) Basic metabolic panel (05/19/2024 9:35 PM DIEING OUT MACHINE OPERATOR) Sodium 144 135 - 145 mmol/L Potassium, pl 4.2 3.3 - 4.9 mmol/L [facility] Chloride 99 97 - 110 mmol/L [facility] CO2 38(H) 22 - 32 mmol/L [facility] Anion gap 7 2 - 15 mmol/L [facility] BUN 15 6 - 25 mg/dL [facility] Creatinine 0.78 0.60 - 1.10 mg/dL [facility] Glucose 143 70 - 199 mg/dL [facility] Comment: Interpretive Data Fasting glucose >/= 126 [...] 2022. Calcium 8.9 8.5 - 10.3 mg/dL [facility] Blood 05/19/2024 9:35 PM DIEING OUT MACHINE OPERATOR 05/19/2024 9:47 PM DIEING OUT MACHINE OPERATOR Christiano Ko MD LAB BLOOD ORDERABLES Final Result [facility] Department [place] [address] * Critical Care (05/19/2024 8:59 PM DIEING OUT MACHINE OPERATOR) Narrative Renay Weber MD - 05/19/2024 8:59 PM DIEING OUT MACHINE OPERATOR Renay Weber MD 05/28/2024 11:45 [...] plan with the ICU team and other medical/sales development consultant staff, making frequent assessments and decisions [...] Result * POCT glucose (05/19/2024 7:36 PM DIEING OUT MACHINE OPERATOR) Glucose, POC 153 70 - 199 mg/dL Blood 05/19/2024 7:36 PM DIEING OUT MACHINE OPERATOR 05/19/2024 7:36 PM DIEING OUT MACHINE OPERATOR Christiano Ko MD LAB POCT ORDERABLES - DEVIC E Final Result Performing Organization Address City/[facility] Co de Phone Number [facility] Department [place] [address] * POCT glucose (05/19/2024 3:43 PM DIEING OUT MACHINE OPERATOR) Glucose, POC 140 70 - 199 mg/dL Blood 05/19/2024 3:43 PM DIEING OUT MACHINE OPERATOR 05/19/2024 3:43 PM DIEING OUT MACHINE OPERATOR Christiano Ko MD LAB POCT ORDERABLES - DEVIC E Final Result [facility] Department [place] [address] * XR Chest 1 View (05/19/2024 2:08 PM DIEING OUT MACHINE OPERATOR) Anatomical Region Laterality Modality Body, Chest N/A Computed Radiogr aphy 05/19/2024 2:31 PM DIEING OUT MACHINE OPERATOR Impressions 05/19/2024 3:25 PM DIEING OUT MACHINE OPERATOR Comparison is made to radiograph [...] Rajiv Redman M.D. Narrative 05/19/2024 3:25 PM DIEING OUT MACHINE OPERATOR EXAMINATION: 1 view chest radiograph [...] Result * POCT glucose (05/19/2024 12:49 PM DIEING OUT MACHINE OPERATOR) Glucose, POC 140 70 - 199 mg/dL Blood 05/19/2024 12:4 9 PM DIEING OUT MACHINE OPERATOR 05/19/2024 12:49 PM DIEING OUT MACHINE OPERATOR us Christiano Ko MD LAB POCT ORDERABLES - DEVIC E Final Result Performing Organization Address City/[facility] Co de Phone Number [facility] [place] [address] * eGFR (05/19/2024 12:45 PM DIEING OUT MACHINE OPERATOR) eGFR 85 >=60 mL/min/1. 73 [...] reviewed 2021. Blood 05/19/2024 12:4 5 PM DIEING OUT MACHINE OPERATOR 05/19/2024 12:54 PM DIEING OUT MACHINE OPERATOR us Preston HINOJOSA LAB BLOOD ORDER TEDDY Final Result Performing Organization Address City/[facility] Co de Phone Number [facility] [place] [address] * (ABNORMAL) CBC without differential (05/19/2024 12:45 PM DIEING OUT MACHINE OPERATOR) [facility] WBC 7.1 3.8 - 9.9 K/cumm Hgb 8.9(L) 11.9 - 15.5 g/dL [facility] Hct 29.2(L) 35.6 - 45.5 % [facility] Plt 136(L) 150 - 400 K/cumm [facility] MPV 10.3 9.1 - 12.3 fL [facility] RBC 2.94(L) 3.90 - 5.20 M/cumm [facility] MCV 99.3(H) 81.3 - 96.4 fL [facility] MCH 30.3 27.1 - 33.3 pg [facility] MCHC 30.5(L) 32.3 - 35.7 g/dL [facility] RDW CV 14.5 11.1 - 14.9 % [facility] RDW SD 51.8(H) 35.7 - 48.1 fL [facility] NRBC abs 0.00 0.00 - 0.01 K/cumm [facility] Blood 05/19/2024 12:4 5 PM DIEING OUT MACHINE OPERATOR 05/19/2024 12:54 PM DIEING OUT MACHINE OPERATOR Preston HINOJOSA LAB BLOOD ORDER TEDDY Final Result Performing Organization Address City/[facility] Co de Phone Number [facility] [place] [address] * Phosphorus (05/19/2024 12:45 PM DIEING OUT MACHINE OPERATOR) [facility] Phosphorus, pl 2.4 2.3 - 4.5 mg/dL Blood 05/19/2024 12:4 5 PM DIEING OUT MACHINE OPERATOR 05/19/2024 12:54 PM DIEING OUT MACHINE OPERATOR Preston HINOJOSA LAB BLOOD ORDER TEDDY Final Result Performing Organization Address City/[facility] Co de Phone Number [facility] [place] [address] * Magnesium (05/19/2024 12:45 PM DIEING OUT MACHINE OPERATOR) [facility] Magnesium 2.2 1.4 - 2.5 mg/dL Blood 05/19/2024 12:4 5 PM DIEING OUT MACHINE OPERATOR 05/19/2024 12:54 PM DIEING OUT MACHINE OPERATOR Preston HINOJOSA LAB BLOOD ORDER TEDDY Final Result Performing Organization Address [facility] de Phone Number [facility] Department [place] [address] * (ABNORMAL) Blood gas, arterial (05/19/2024 12:45 PM DIEING OUT MACHINE OPERATOR) [facility] pH, Art 7.43 7.35 - 7.45 PCO2, Arterial 52(H) 35 - 45 mmHg [facility] PO2, Arterial 147(H) 83 - 108 mmHg [facility] HCO3 Art (Calculated) 36(H) 20 - 30 mmol/L [facility] BE, art 9 mmol/L [facility] Comment: Interpretive Data No Reference Range Established Current Interpretive Data was last revised on 2017 O2 Sat Art (Measured) 100(H) 90 - 95 % [facility] Blood 05/19/2024 12:4 5 PM DIEING OUT MACHINE OPERATOR 05/19/2024 12:50 PM DIEING OUT MACHINE OPERATOR Preston HINOJOSA LAB BLOOD ORDER TEDDY Final Result Performing Organization Address [facility] de Phone Number [facility] [place] [address] * (ABNORMAL) Basic metabolic panel (05/19/2024 12:45 PM DIEING OUT MACHINE OPERATOR) [facility] Sodium 142 135 - 145 mmol/L Potassium, pl 4.2 3.3 - 4.9 mmol/L [facility] Chloride 99 97 - 110 mmol/L [facility] CO2 35(H) 22 - 32 mmol/L [facility] Anion gap 8 2 - 15 mmol/L [facility] BUN 14 6 - 25 mg/dL [facility] Creatinine 0.73 0.60 - 1.10 mg/dL [facility] Glucose 134 70 - 199 mg/dL [facility] Comment: Interpretive Data Fasting glucose >/= 126 [...] 2022. Calcium 8.6 8.5 - 10.3 mg/dL [facility] Blood 05/19/2024 12:4 5 PM DIEING OUT MACHINE OPERATOR 05/19/2024 12:54 PM DIEING OUT MACHINE OPERATOR us Preston HINOJOSA LAB BLOOD ORDER TEDDY Final Result Performing Organization Address City/[facility]/ZIP Co de Phone Number [facility] Department [place] [address] * [place] Fluoroscopy < 1 Hour (05/19/2024 11:22 AM DIEING OUT MACHINE OPERATOR) Narrative [facility] - 05/19/2024 11:23 AM DIEING OUT MACHINE OPERATOR The images from this study are not interpreted by Radiology. Please refer to the physician's procedure / OR operative note. us Annemarie Lea MD IMG FLUOROSCOPY PROCEDURES Final Result Performing Organization Address City/[facility]/ZIP Co de Phone Number [email or web address] * (ABNORMAL) POC Blood Gas and Chemistries, Arterial - (05/19/2024 10:38 AM DIEING OUT MACHINE OPERATOR) pH, Art POC 7.50(H) 7.35 - 7.45 pCO2, Art POC 51(H) 35 - 45 mmHg [facility] pO2, Art POC 68(L) 83 - 108 mmHg [facility] Na, POC 140 135 - 145 mmol/L [facility] K POC 4.1 3.3 - 4.9 mmol/L [facility] Comment: Interpretive Data Not all point of care methods assess for hemolysis. Confirm with instrument and retest K+ if not consistent with clinical signs and symptoms. Current Interpretive Data was last revised on 2023. Cl, POC 99 97 - 110 mmol/L [facility] Ionized Ca, POC 4.69 4.50 - 5.10 mg/dL [facility] Glucose, POC 141 70 - 199 mg/dL [facility] Lactate, POC 1.0 0.7 - 2.0 mmol/L [facility] SO2 (katie) arterial 98(H) 90 - 95 % [facility] Base excess, POC 14.9 mmol/L [facility] Hct, POC 28.0(L) 36.3 - 45.3 % [facility] Total Hb, POC 9.2(L) 11.9 - 15.5 g/dL [facility] Blood 05/19/2024 10:3 8 AM DIEING OUT MACHINE OPERATOR 05/19/2024 10:38 AM DIEING OUT MACHINE OPERATOR Christiano Ko MD LAB POCT ORDERABLES - DEVIC E Final Result [facility] Department [place] [address] * [place] AN PROCEDURE PLACEHOLDER (05/19/2024 9:51 AM DIEING OUT MACHINE OPERATOR) Narrative Flako Parekh CRNA - 05/19/2024 9:51 AM DIEING OUT MACHINE OPERATOR Flako Parekh CRNA 05/19/2024 9:52 AM Arterial Line Patient location: OR End time: 05/19/2024 8:30 AM Indication: continuous blood pressure monitoring and blood sampling needed Staff: Supervising provider: Mag Villatoro MD Placed by: WIRE TWISTER: Flako Parekh CRNA Procedure prep: Prep solution: chlorhexadine/alcohol Prep: provider hat/mask, sterile gloves and sterile drape Skin infiltrated with lidocaine 1%: yes Arterial line: Catheter size: 3 [place] Catheter length: 8 cm Catheter type: wire-guided catheter Seldinger technique: yes Laterality: right Site: radial artery Line secured: tape and Tegaderm Results: good waveform and good blood return Number of attempts: 1 Assessment: Events: patient tolerated procedure well with no complications Additional comments: Vygon kit used. CHG-impregnated dressing in use. Ultrasound-guided placement. Mag Villatoro MD ANESTHESIA ORDERABLES Final R esult * IA AN ELECTIVE ENDOTRACHEAL AIRWAY, IA AN PROCEDURE PLACEHOLDER (05/19/2024 9:46 AM DIEING OUT MACHINE OPERATOR) Narrative Flako Parekh CRNA - 05/19/2024 9:46 AM DIEING OUT MACHINE OPERATOR Flako Parekh CRNA 05/19/2024 9:51 AM Airway Patient location: OR Urgency: elective Date/time: 05/19/2024 8:13 AM Indications for airway management: anesthesia Difficult airway: no Staff: Supervising provider: Mag Villatoro MD Placed by: WIRE TWISTER: Flako Parekh CRNA Emergent airway documentation: Risks [...] set to 25 cm H20 using manometer. Mag Villatoro MD ANESTHESIA ORDERABLES Final R esult * (ABNORMAL) POC Blood Gas and Chemistries, Arterial - (05/19/2024 8:35 AM DIEING OUT MACHINE OPERATOR) pH, Art POC 7.41 7.35 - 7.45 pCO2, Art POC 65(H) 35 - 45 mmHg [facility] pO2, Art POC 128(H) 83 - 108 mmHg [facility] Na, POC 141 135 - 145 mmol/L [facility] K POC 4.4 3.3 - 4.9 mmol/L [facility] Comment: Interpretive Data Not all point of care methods assess for hemolysis. Confirm with instrument and retest K+ if not consistent with clinical signs and symptoms. Current Interpretive Data was last revised on 2023. Cl, POC 101 97 - 110 mmol/L [facility] Ionized Ca, POC 4.78 4.50 - 5.10 mg/dL [facility] Glucose, POC 97 70 - 199 mg/dL [facility] Lactate, POC 0.8 0.7 - 2.0 mmol/L [facility] SO2 (katie) arterial 100(H) 90 - 95 % [facility] Base excess, POC 14.4 mmol/L [facility] HCO3, Art POC 41(H) 20 - 30 mmol/L [facility] Hct, POC 29.0(L) 36.3 - 45.3 % [facility] Total Hb, POC 9.6(L) 11.9 - 15.5 g/dL [facility] Blood 05/19/2024 8:35 AM DIEING OUT MACHINE OPERATOR 05/19/2024 8:35 AM DIEING OUT MACHINE OPERATOR Christiano Ko MD LAB POCT ORDERABLES - DEVIC E Final Result [facility] Department [place] [address] * POCT glucose (05/19/2024 7:36 AM DIEING OUT MACHINE OPERATOR) Glucose, POC 101 70 - 199 mg/dL Blood 05/19/2024 7:36 AM DIEING OUT MACHINE OPERATOR 05/19/2024 7:36 AM DIEING OUT MACHINE OPERATOR us Christiano Ko MD LAB POCT ORDERABLES - DEVIC E Final Result [facility] Department [place] [address] * Critical Care (05/19/2024 7:06 AM DIEING OUT MACHINE OPERATOR) Narrative Earnestine Kelly MD - 05/19/2024 7:06 AM DIEING OUT MACHINE OPERATOR Earnestine Kelly MD 05/22/2024 3:02 [...] plan with the ICU team and other medical/sales development consultant staff, making frequent assessments and decisions [...] Critical Result Callback Chemistry (05/19/2024 5:18 AM DIEING OUT MACHINE OPERATOR) Date Notified [id number] Time Notified [address] [facility] TestName Layla HAMPTON Called/Read Back Funmilayo HAMPTON Credentials RENETTA HAMPTON Called By octavio HAMPTON Blood 05/19/2024 5:18 AM DIEING OUT MACHINE OPERATOR 05/19/2024 5:25 AM DIEING OUT MACHINE OPERATOR Charisse Dunham NP LAB BLOOD ORDER TEDDY Final Result [facility] Department [place] [address] * Type and screen (05/19/2024 5:18 AM DIEING OUT MACHINE OPERATOR) Pathologist [facility], indirect Negative ABO Rh A Positive [facility] Blood 05/19/2024 5:18 AM DIEING OUT MACHINE OPERATOR 05/19/2024 5:26 AM DIEING OUT MACHINE OPERATOR Narrative [facility] - 05/19/2024 6:12 AM DIEING OUT MACHINE OPERATOR Has the patient had Daratumumab or Isatuximab in the past 6 months?->Unknown Mag Villatoro MD LAB BLOOD BANK TEST ORDERABLE S Final Result Performing Organization Address [facility] Co de Phone Number [facility] Department [place] [address] * (ABNORMAL) Blood gas, venous (05/19/2024 5:18 AM DIEING OUT MACHINE OPERATOR) Pathologist [facility] pH, Venous 7.30(L) 7.32 - 7.43 PCO2, Venous 79(C) 40 - 50 mmHg [facility] Comment:Reviewed PO2, Venous 41 mmHg [facility] Comment: Interpretive Data No Reference Range Established Current Interpretive Data was last revised on 2017. HCO3 Venous, Calculated 40(H) 20 - 30 mmol/L [facility] BE, venous 10 mmol/L [facility] Comment: Interpretive Data No Reference Range Established Current Interpretive Data was last revised on 2017. Blood 05/19/2024 5:18 AM DIEING OUT MACHINE OPERATOR 05/19/2024 5:25 AM DIEING OUT MACHINE OPERATOR Charisse Dunham NP LAB BLOOD ORDER TEDDY Final Result Performing Organization Address City/[facility]/ZIP Co de Phone Number [facility] [place] [address] * Critical Result Callback Chemistry (05/19/2024 3:41 AM DIEING OUT MACHINE OPERATOR) Date Notified [id number] Time Notified [address] [facility] TestName pCO2 Art [facility] Called/Read Back Funmilayo [facility] Credentials RN [facility] Called By MARC [facility] Blood 05/19/2024 3:41 AM DIEING OUT MACHINE OPERATOR 05/19/2024 3:47 AM DIEING OUT MACHINE OPERATOR Charisse Dunham NP LAB BLOOD ORDER TEDDY Final Result Performing Organization Address City/[facility] [place] [address] * (ABNORMAL) Blood gas, arterial (05/19/2024 3:41 AM DIEING OUT MACHINE OPERATOR) pH, Art 7.27(L) 7.35 - 7.45 PCO2, Arterial 83(C) 35 - 45 mmHg [facility] Comment:reviewed PO2, Arterial 157(H) 83 - 108 mmHg [facility] HCO3 Art (Calculated) 40(H) 20 - 30 mmol/L [facility] BE, art 9 mmol/L [facility] Comment: Interpretive Data No Reference Range Established Current Interpretive Data was last revised on 2017 O2 Sat Art (Measured) 99(H) 90 - 95 % [facility] Blood 05/19/2024 3:41 AM DIEING OUT MACHINE OPERATOR 05/19/2024 3:47 AM DIEING OUT MACHINE OPERATOR Charisse Dunham NP LAB BLOOD ORDER TEDDY Final Result [facility] [place] [address] * XR Chest 1 View (05/19/2024 3:20 AM DIEING OUT MACHINE OPERATOR) Anatomical Region Laterality Modality Body, Chest N/A Computed Radiogr aphy 05/19/2024 9:14 AM DIEING OUT MACHINE OPERATOR Impressions 05/19/2024 9:50 AM DIEING OUT MACHINE OPERATOR Retrocardiac opacity in keeping with [...] Harish Bangura M.D. Narrative 05/19/2024 9:50 AM DIEING OUT MACHINE OPERATOR EXAMINATION: XR CHEST 1 VIEW [...] it. Electronically signed by: Harish Bangura M.D. us Charisse Dunham NP IMG XR PROCEDUR ES Final Result * Critical Care (05/19/2024 3:00 AM DIEING OUT MACHINE OPERATOR) Narrative Renay Weber MD - 05/19/2024 3:00 AM DIEING OUT MACHINE OPERATOR Renay Weber MD 05/20/2024 2:54 AM Critical Care Performed by: Charisse Dunham NP Authorized by: HeCharisse Rios NP CRITICAL CARE: Team: SICU BLUE Shift: [...] plan with the ICU team and other medical/sales development consultant staff, making frequent assessments and decisions [...] Result * POCT glucose (05/19/2024 2:38 AM DIEING OUT MACHINE OPERATOR) Glucose, POC 122 70 - 199 mg/dL Blood 05/19/2024 2:38 AM DIEING OUT MACHINE OPERATOR 05/19/2024 2:38 AM DIEING OUT MACHINE OPERATOR us Christiano Ko MD LAB POCT ORDERABLES - DEVIC E Final Result [facility] Department [place] [address] * CTA/CTP Rapid Stroke (C) (05/19/2024 2:26 AM DIEING OUT MACHINE OPERATOR) Anatomical Region Laterality Modality Head and Neck N/A Computed Tomogra phy 05/19/2024 2:49 AM DIEING OUT MACHINE OPERATOR Impressions 05/19/2024 8:55 AM DIEING OUT MACHINE OPERATOR 1. No CT evidence of [...] Dianna Johnson M.D. Narrative 05/19/2024 8:55 AM DIEING OUT MACHINE OPERATOR EXAMINATION: 1. Computed tomography angiography [...] separate workstation for processing by RAPID software (Dynamic Signal) to produce automated calculations of the estimated [...] Artery: no occlusion or significant stenosis L SCARFING MACHINE OPERATOR: no occlusion or significant stenosis R SCARFING MACHINE OPERATOR: no occlusion or significant stenosis No cerebral [...] separate workstation for processing by RAPID software (Dynamic Signal) to produce automated calculations of the estimated [...] Artery: no occlusion or significant stenosis L SCARFING MACHINE OPERATOR: no occlusion or significant stenosis R SCARFING MACHINE OPERATOR: no occlusion or significant stenosis No cerebral [...] at 7:42 AM on 05/19/2024. Dictated by: oLrena Cash MD The radiology attending physician has personally reviewed this study, and had reviewed and/or edited this written report and agrees with it. Electronically signed by: Dianna Johnson M.D. Christiano Ko MD IMG CT PROCEDURES Final Res ult * (ABNORMAL) POCT [id number], WB - ISTAT (05/19/2024 1:27 AM DIEING OUT MACHINE OPERATOR) [facility] Na POC 140 135 - 145 mmol/L K POC 4.5 3.3 - 4.9 mmol/L [facility] Comment: Interpretive Data This method is not able to assess for hemolysis, which may falsely increase potassium concentrations. If further testing is needed to evaluate this result, consider in-laboratory plasma potassium. Current Interpretive Data was last revised on 2021. Glucose POC i-STAT 123 70 - 199 mg/dL [facility] Hct, POC 31.0(L) 35.6 - 45.5 % [facility] Blood 05/19/2024 1:27 AM DIEING OUT MACHINE OPERATOR 05/19/2024 1:27 AM DIEING OUT MACHINE OPERATOR Christiano Ko MD LAB POCT ORDERABLES - DEVIC E Final Result [facility] Department [place] [address] * (ABNORMAL) Arterial Blood gas w/Lactate POCT (05/19/2024 1:22 AM DIEING OUT MACHINE OPERATOR) [facility] Lactate POC i-STAT <0.5(L) 0.7 - 2.0 mmol/L pH POC 7.29(L) 7.35 - 7.45 [facility] pCO2, Art POC 81(C) 35 - 45 mmHg [facility] PO2 POC 88 80 - 105 mmHg [facility] CO2, total POC 41(H) 20 - 30 mmol/L [facility] HCO3, POC 39(H) 21 - 30 mmol/L [facility] BE POC 12(H) -2 - 3 mmol/L [facility] O2 sat POC 95 95 - 98 % [facility] Blood 05/19/2024 1:22 AM DIEING OUT MACHINE OPERATOR 05/19/2024 1:22 AM DIEING OUT MACHINE OPERATOR Christiano Ko MD LAB BLOOD ORDERABLES Final Result Performing Organization Address [facility] de Phone Number [facility] Department [place] [address] * POCT glucose (05/19/2024 1:15 AM DIEING OUT MACHINE OPERATOR) [facility] Glucose, POC 134 70 - 199 mg/dL Blood 05/19/2024 1:15 AM DIEING OUT MACHINE OPERATOR 05/19/2024 1:15 AM DIEING OUT MACHINE OPERATOR Christiano Ko MD LAB POCT ORDERABLES - DEVIC E Final Result Performing Organization Address [facility] de Phone Number [facility] Department [place] [address] * Potassium, whole blood (05/19/2024 12:55 AM DIEING OUT MACHINE OPERATOR) [facility] Potassium, bld 4.6 3.3 - 4.9 mmol/L Blood 05/19/2024 12:5 5 AM DIEING OUT MACHINE OPERATOR 05/19/2024 1:10 AM DIEING OUT MACHINE OPERATOR Christiano Ko MD LAB BLOOD ORDERABLES Final Result Performing Organization Address [facility]/State/ZIP Co de Phone Number [facility] [place] [address] * eGFR (05/19/2024 12:55 AM DIEING OUT MACHINE OPERATOR) [facility] eGFR 75 >=60 mL/min/1. 73 m2 Comment: [...] reviewed 2021. Blood 05/19/2024 12:5 5 AM DIEING OUT MACHINE OPERATOR 05/19/2024 1:24 AM DIEING OUT MACHINE OPERATOR Christiano Ko MD LAB BLOOD ORDERABLES Final Result [place] [facility] [place] [address] * (ABNORMAL) CBC without differential (05/19/2024 12:55 AM DIEING OUT MACHINE OPERATOR) [facility] WBC 5.7 3.8 - 9.9 K/cumm Hgb 9.1(L) 11.9 - 15.5 g/dL [facility] Hct 30.2(L) 35.6 - 45.5 % [facility] Plt 136(L) 150 - 400 K/cumm [facility] MPV 10.9 9.1 - 12.3 fL [facility] RBC 3.06(L) 3.90 - 5.20 M/cumm [facility] MCV 98.7(H) 81.3 - 96.4 fL [facility] MCH 29.7 27.1 - 33.3 pg [facility] MCHC 30.1(L) 32.3 - 35.7 g/dL [facility] RDW CV 14.5 11.1 - 14.9 % [facility] RDW SD 52.2(H) 35.7 - 48.1 fL [facility] NRBC abs 0.00 0.00 - 0.01 K/cumm [facility] Blood 05/19/2024 12:5 5 AM DIEING OUT MACHINE OPERATOR 05/19/2024 1:25 AM DIEING OUT MACHINE OPERATOR Christiano Ko MD LAB BLOOD ORDERABLES Final Result Performing Organization Address [facility] Co de Phone Number [facility] Department [place] [address] * Phosphorus (05/19/2024 12:55 AM DIEING OUT MACHINE OPERATOR) Phosphorus, pl 4.1 2.3 - 4.5 mg/dL Blood 05/19/2024 12:5 5 AM DIEING OUT MACHINE OPERATOR 05/19/2024 1:24 AM DIEING OUT MACHINE OPERATOR Christiano Ko MD LAB BLOOD ORDERABLES Final Result Performing Organization Address City/[facility] Co de Phone Number [facility] Department [place] [address] * Magnesium (05/19/2024 12:55 AM DIEING OUT MACHINE OPERATOR) Magnesium 1.8 1.4 - 2.5 mg/dL Blood 05/19/2024 12:5 5 AM DIEING OUT MACHINE OPERATOR 05/19/2024 1:24 AM DIEING OUT MACHINE OPERATOR Christiano Ko MD LAB BLOOD ORDERABLES Final Result Performing Organization Address City/[facility] Co de Phone Number [facility] [place] [address] * (ABNORMAL) Basic metabolic panel (05/19/2024 12:55 AM DIEING OUT MACHINE OPERATOR) Sodium 145 135 - 145 mmol/L Potassium, pl 4.8 3.3 - 4.9 mmol/L [facility] Chloride 104 97 - 110 mmol/L [facility] CO2 39(H) 22 - 32 mmol/L [facility] Anion gap 2 2 - 15 mmol/L [facility] BUN 17 6 - 25 mg/dL [facility] Creatinine 0.81 0.60 - 1.10 mg/dL [facility] Glucose 126 70 - 199 mg/dL [facility] Comment: Interpretive Data Fasting glucose >/= 126 [...] 2022. Calcium 8.8 8.5 - 10.3 mg/dL [facility] Blood 05/19/2024 12:5 5 AM DIEING OUT MACHINE OPERATOR 05/19/2024 1:24 AM DIEING OUT MACHINE OPERATOR Christiano Ko MD LAB BLOOD ORDERABLES Final Result [facility] Department [place] [address] * IA AN ELECTIVE ENDOTRACHEAL AIRWAY, IA AN PROCEDURE PLACEHOLDER (05/18/2024 4:41 PM DIEING OUT MACHINE OPERATOR) Narrative Dar Long CRNA - 05/18/2024 4:41 PM DIEING OUT MACHINE OPERATOR Dar Long CRNA 05/18/2024 4:45 PM Airway Patient location: OR Urgency: elective Date/time: 05/18/2024 4:05 PM Indications for airway management: anesthesia and airway protection Difficult airway: no Staff: Placed by: Anesthesiologist: Kvng Verma MD WIRE TWISTER: Dar Long CRNA Emergent airway documentation: Risks [...] ORDERABLE S Edited Result - Final * IA AN PROCEDURE PLACEHOLDER (05/18/2024 3:47 PM DIEING OUT MACHINE OPERATOR) Narrative Kvng Verma MD - 05/18/2024 3:47 PM DIEING OUT MACHINE OPERATOR Kvng Verma MD 05/20/2024 9:44 [...] Final Result * eGFR (05/17/2024 11:56 PM DIEING OUT MACHINE OPERATOR) Pathologist [facility] eGFR 73 >=60 mL/min/1. 73 m2 Comment: [...] reviewed 2021. Blood 05/17/2024 11:5 6 PM DIEING OUT MACHINE OPERATOR 05/18/2024 12:45 AM DIEING OUT MACHINE OPERATOR us Christiano Ko MD LAB BLOOD ORDERABLES Final Result [facility] Department [place] [address] * (ABNORMAL) CBC without differential (05/17/2024 11:56 PM DIEING OUT MACHINE OPERATOR) [facility] WBC 5.3 3.8 - 9.9 K/cumm Hgb 9.5(L) 11.9 - 15.5 g/dL [facility] Hct 31.7(L) 35.6 - 45.5 % [facility] Plt 147(L) 150 - 400 K/cumm [facility] MPV 11.0 9.1 - 12.3 fL [facility] RBC 3.23(L) 3.90 - 5.20 M/cumm [facility] MCV 98.1(H) 81.3 - 96.4 fL [facility] MCH 29.4 27.1 - 33.3 pg [facility] MCHC 30.0(L) 32.3 - 35.7 g/dL [facility] RDW CV 14.6 11.1 - 14.9 % [facility] RDW SD 52.7(H) 35.7 - 48.1 fL [facility] NRBC abs 0.00 0.00 - 0.01 K/cumm [facility] Blood 05/17/2024 11:5 6 PM DIEING OUT MACHINE OPERATOR 05/18/2024 12:45 AM DIEING OUT MACHINE OPERATOR Christiano Ko MD LAB BLOOD ORDERABLES Final Result [facility] [place] [address] * Phosphorus (05/17/2024 11:56 PM DIEING OUT MACHINE OPERATOR) Phosphorus, pl 3.9 2.3 - 4.5 mg/dL Blood 05/17/2024 11:5 6 PM DIEING OUT MACHINE OPERATOR 05/18/2024 12:45 AM DIEING OUT MACHINE OPERATOR Christiano Ko MD LAB BLOOD ORDERABLES Final Result [facility] [place] [address] * Magnesium (05/17/2024 11:56 PM DIEING OUT MACHINE OPERATOR) Magnesium 1.9 1.4 - 2.5 mg/dL Blood 05/17/2024 11:5 6 PM DIEING OUT MACHINE OPERATOR 05/18/2024 12:45 AM DIEING OUT MACHINE OPERATOR Christiano Ko MD LAB BLOOD ORDERABLES Final Result Performing Organization Address City/[facility]/ZIP Co de Phone Number [facility] Department [place] [address] * (ABNORMAL) Basic metabolic panel (05/17/2024 11:56 PM DIEING OUT MACHINE OPERATOR) [facility] Sodium 146(H) 135 - 145 mmol/L Potassium, pl 5.0(H) 3.3 - 4.9 mmol/L [facility] Chloride 102 97 - 110 mmol/L [facility] CO2 37(H) 22 - 32 mmol/L [facility] Anion gap 7 2 - 15 mmol/L [facility] BUN 22 6 - 25 mg/dL [facility] Creatinine 0.83 0.60 - 1.10 mg/dL [facility] Glucose 101 70 - 199 mg/dL [facility] Comment: Interpretive Data Fasting glucose >/= 126 [...] 2022. Calcium 9.3 8.5 - 10.3 mg/dL [facility] Blood 05/17/2024 11:5 6 PM DIEING OUT MACHINE OPERATOR 05/18/2024 12:45 AM DIEING OUT MACHINE OPERATOR Christiano Ko MD LAB BLOOD ORDERABLES Final Result Performing Organization Address [facility] Co de Phone Number [facility] Department [place] [address] * eGFR (05/16/2024 10:25 PM DIEING OUT MACHINE OPERATOR) [facility] eGFR 61 >=60 mL/min/1. 73 m2 Comment: [...] reviewed 2021. Blood 05/16/2024 10:2 5 PM DIEING OUT MACHINE OPERATOR 05/16/2024 10:50 PM DIEING OUT MACHINE OPERATOR Christiano Ko MD LAB BLOOD ORDERABLES Final Result [facility] Department [place] [address] * (ABNORMAL) CBC without differential (05/16/2024 10:25 PM DIEING OUT MACHINE OPERATOR) [facility] WBC 4.8 3.8 - 9.9 K/cumm Hgb 9.0(L) 11.9 - 15.5 g/dL [facility] Hct 30.0(L) 35.6 - 45.5 % [facility] Plt 134(L) 150 - 400 K/cumm [facility] MPV 10.6 9.1 - 12.3 fL [facility] RBC 3.01(L) 3.90 - 5.20 M/cumm [facility] MCV 99.7(H) 81.3 - 96.4 fL [facility] MCH 29.9 27.1 - 33.3 pg [facility] MCHC 30.0(L) 32.3 - 35.7 g/dL [facility] RDW CV 14.6 11.1 - 14.9 % [facility] RDW SD 53.5(H) 35.7 - 48.1 fL [facility] NRBC abs 0.00 0.00 - 0.01 K/cumm [facility] Blood 05/16/2024 10:2 5 PM DIEING OUT MACHINE OPERATOR 05/16/2024 10:50 PM DIEING OUT MACHINE OPERATOR Christiano Ko MD LAB BLOOD ORDERABLES Final Result Performing Organization Address City/[facility] [place] [address] * Phosphorus (05/16/2024 10:25 PM DIEING OUT MACHINE OPERATOR) Pathologist [facility] Phosphorus, pl 3.9 2.3 - 4.5 mg/dL Blood 05/16/2024 10:2 5 PM DIEING OUT MACHINE OPERATOR 05/16/2024 10:50 PM DIEING OUT MACHINE OPERATOR Christiano Ko MD LAB BLOOD ORDERABLES Final Result Performing Organization Address [facility] de Phone Number [facility] [place] [address] * Magnesium (05/16/2024 10:25 PM DIEING OUT MACHINE OPERATOR) [facility] Magnesium 1.8 1.4 - 2.5 mg/dL Blood 05/16/2024 10:2 5 PM DIEING OUT MACHINE OPERATOR 05/16/2024 10:50 PM DIEING OUT MACHINE OPERATOR Christiano Ko MD LAB BLOOD ORDERABLES Final Result Performing Organization Address [facility] de Phone Number [facility] [place] [address] * (ABNORMAL) Basic metabolic panel (05/16/2024 10:25 PM DIEING OUT MACHINE OPERATOR) Pathologist [facility] Sodium 146(H) 135 - 145 mmol/L Potassium, pl 4.7 3.3 - 4.9 mmol/L [facility] Chloride 103 97 - 110 mmol/L [facility] CO2 39(H) 22 - 32 mmol/L [facility] Anion gap 4 2 - 15 mmol/L [facility] BUN 23 6 - 25 mg/dL [facility] Creatinine 0.96 0.60 - 1.10 mg/dL [facility] Glucose 98 70 - 199 mg/dL [facility] Comment: Interpretive Data Fasting glucose >/= 126 [...] 2022. Calcium 9.0 8.5 - 10.3 mg/dL [facility] Blood 05/16/2024 10:2 5 PM DIEING OUT MACHINE OPERATOR 05/16/2024 10:50 PM DIEING OUT MACHINE OPERATOR Christiano Ko MD LAB BLOOD ORDERABLES Final Result [facility] Department [place] [address] * eGFR (05/15/2024 10:17 PM DIEING OUT MACHINE OPERATOR) Pathologist [facility] eGFR 65 >=60 mL/min/1. 73 m2 Comment: [...] reviewed 2021. Blood 05/15/2024 10:1 7 PM DIEING OUT MACHINE OPERATOR 05/15/2024 10:31 PM DIEING OUT MACHINE OPERATOR Christiano Ko MD LAB BLOOD ORDERABLES Final Result [facility] [facility] Department [place] [address] * (ABNORMAL) CBC without differential (05/15/2024 10:17 PM DIEING OUT MACHINE OPERATOR) WBC 6.5 3.8 - 9.9 K/cumm Hgb 9.3(L) 11.9 - 15.5 g/dL [facility] Hct 30.3(L) 35.6 - 45.5 % [facility] Plt 142(L) 150 - 400 K/cumm [facility] MPV 10.9 9.1 - 12.3 fL [facility] RBC 3.16(L) 3.90 - 5.20 M/cumm [facility] MCV 95.9 81.3 - 96.4 fL [facility] MCH 29.4 27.1 - 33.3 pg [facility] MCHC 30.7(L) 32.3 - 35.7 g/dL [facility] RDW CV 14.6 11.1 - 14.9 % [facility] RDW SD 51.8(H) 35.7 - 48.1 fL [facility] NRBC abs 0.00 0.00 - 0.01 K/cumm [facility] Blood 05/15/2024 10:1 7 PM DIEING OUT MACHINE OPERATOR 05/15/2024 10:31 PM DIEING OUT MACHINE OPERATOR us Christiano Ko MD LAB BLOOD ORDERABLES Final Result [facility] [place] [address] * Phosphorus (05/15/2024 10:17 PM DIEING OUT MACHINE OPERATOR) [facility] Phosphorus, pl 3.7 2.3 - 4.5 mg/dL Blood 05/15/2024 10:1 7 PM DIEING OUT MACHINE OPERATOR 05/15/2024 10:31 PM DIEING OUT MACHINE OPERATOR Christiano Ko MD LAB BLOOD ORDERABLES Final Result Performing Organization Address [facility] Co de Phone Number [facility] [place] [address] * Magnesium (05/15/2024 10:17 PM DIEING OUT MACHINE OPERATOR) [facility] Magnesium 2.0 1.4 - 2.5 mg/dL Blood 05/15/2024 10:1 7 PM DIEING OUT MACHINE OPERATOR 05/15/2024 10:31 PM DIEING OUT MACHINE OPERATOR Christiano Ko MD LAB BLOOD ORDERABLES Final Result Performing Organization Address City/[facility] Co de Phone Number [facility] [place] [address] * (ABNORMAL) Basic metabolic panel (05/15/2024 10:17 PM DIEING OUT MACHINE OPERATOR) [facility] Sodium 145 135 - 145 mmol/L Potassium, pl 4.7 3.3 - 4.9 mmol/L [facility] Chloride 102 97 - 110 mmol/L [facility] CO2 37(H) 22 - 32 mmol/L [facility] Anion gap 6 2 - 15 mmol/L [facility] BUN 26(H) 6 - 25 mg/dL [facility] Creatinine 0.91 0.60 - 1.10 mg/dL [facility] Glucose 110 70 - 199 mg/dL [facility] Comment: Interpretive Data Fasting glucose >/= 126 [...] 2022. Calcium 9.1 8.5 - 10.3 mg/dL [facility] Blood 05/15/2024 10:1 7 PM DIEING OUT MACHINE OPERATOR 05/15/2024 10:31 PM DIEING OUT MACHINE OPERATOR Christiano Ko MD LAB BLOOD ORDERABLES Final Result Performing Organization Address [facility] de Phone Number [facility] [place] [address] * (ABNORMAL) Blood gas, arterial (05/15/2024 11:40 AM DIEING OUT MACHINE OPERATOR) pH, Art 7.32(L) 7.35 - 7.45 PCO2, Arterial 70(H) 35 - 45 mmHg [facility] PO2, Arterial 99 83 - 108 mmHg [facility] HCO3 Art (Calculated) 38(H) 20 - 30 mmol/L [facility] BE, art 8 mmol/L [facility] Comment: Interpretive Data No Reference Range Established Current Interpretive Data was last revised on 2017 O2 Sat Art (Measured) 98(H) 90 - 95 % [facility] Blood 05/15/2024 11:4 0 AM DIEING OUT MACHINE OPERATOR 05/15/2024 11:50 AM DIEING OUT MACHINE OPERATOR Debby Gaona NP LAB BLOOD ORDERABLES F inal Result Performing Organization Address [facility] de Phone Number [facility] [place] [address] * TRANSTHORACIC ECHO (TTE) COMPLETE W DOPPLER/CF W CONTRAST (05/15/2024 10:00 AM DIEING OUT MACHINE OPERATOR) Anatomical Region Laterality Modality Ultrasound 05/15/2024 8:59 AM DIEING OUT MACHINE OPERATOR Narrative 05/15/2024 1:40 PM DIEING OUT MACHINE OPERATOR [facility] Cardiac [place] [address] Transthoracic Echocardiographic Report Patient Name: LORRAINE CUEVA J : 1945 (78y 4m) Gender: F Study Date: 05/15/2024 08:59:48 Ht(Inch): 65 Wt(Lb): 210.98 BSA: 2.09 Old Testament Professor: Heber Mathur RDCS Location: [id number] Order Provider: CHRISTIANO KO Heart Rate: 83 BMI: 35.11 BP: 114 / 73 Quality: The study images were of technically good quality. Ref Provider: CHRISTIANO KO PROCEDURES: Echocardiographic Report: ([id number], [id number]) Transthoracic complete echo with strain imaging and [...] Signed By: Murtaza Pedersen MD 05/15/2024 13:39:37 DIEING OUT MACHINE OPERATOR Electronically Signed By: Murtaza Pedersen MD 05/15/2024 13:39:37 DIEING OUT MACHINE OPERATOR Procedure Note Murtaza Pedersen MD - 05/15/2024 [facility] Cardiac [place] [address] Transthoracic Echocardiographic Report Patient Name: LORRAINE CUEVA J : 1945 (78y 4m) Gender: F Study Date: 05/15/2024 08:59:48 Ht(Inch): 65 Wt(Lb): 210.98 BSA: 2.09 [employer] Professor: Heber Mathur RDCS Location: [id number] Order Provider:CHRISTIANO KO Heart Rate: 83 BMI: 35.11 BP: 114 / 73 Quality: The study images were oftechnically good quality. Ref Provider: CHRISTIANO KO PROCEDURES: Echocardiographic Report: ([id number], [id number]) Transthoracic complete echo withstrain imaging and contrast, [...] LA Length 4C 6.46 cm MV Decel Cdol475.79 msec [ 104.00 - 258.00 ] LA [...] Signed By: Murtaza Pedersen MD 05/15/2024 13:39:37 DIEING OUT MACHINE OPERATOR Electronically Signed By: Murtaza Pedersen MD 05/15/2024 13:39:37 DIEING OUT MACHINE OPERATOR Christiano Ko MD CV ECHO PROCEDURES Final Re sult * eGFR (05/15/2024 8:13 AM DIEING OUT MACHINE OPERATOR) eGFR 80 >=60 mL/min/1. 73 [...] last reviewed 2021. Blood 05/15/2024 8:13 AM DIEING OUT MACHINE OPERATOR 05/15/2024 8:32 AM DIEING OUT MACHINE OPERATOR us Christiano Ko MD LAB BLOOD ORDERABLES Final Result [facility] Department [place] [address] * (ABNORMAL) CBC without differential (05/15/2024 8:13 AM DIEING OUT MACHINE OPERATOR) WBC 4.7 3.8 - 9.9 K/cumm Hgb 9.5(L) 11.9 - 15.5 g/dL [facility] Hct 31.3(L) 35.6 - 45.5 % [facility] Plt 119(L) 150 - 400 K/cumm [facility] MPV 10.8 9.1 - 12.3 fL [facility] RBC 3.21(L) 3.90 - 5.20 M/cumm [facility] MCV 97.5(H) 81.3 - 96.4 fL [facility] MCH 29.6 27.1 - 33.3 pg [facility] MCHC 30.4(L) 32.3 - 35.7 g/dL [facility] RDW CV 14.3 11.1 - 14.9 % [facility] RDW SD 51.6(H) 35.7 - 48.1 fL [facility] NRBC abs 0.00 0.00 - 0.01 K/cumm [facility] Blood 05/15/2024 8:13 AM DIEING OUT MACHINE OPERATOR 05/15/2024 8:33 AM DIEING OUT MACHINE OPERATOR Christiano Ko MD LAB BLOOD ORDERABLES Final Result Performing Organization Address [facility] Co de Phone Number [facility] Department [place] [address] * Phosphorus (05/15/2024 8:13 AM DIEING OUT MACHINE OPERATOR) Phosphorus, pl 3.4 2.3 - 4.5 mg/dL Blood 05/15/2024 8:13 AM DIEING OUT MACHINE OPERATOR 05/15/2024 8:32 AM DIEING OUT MACHINE OPERATOR Christiano Ko MD LAB BLOOD ORDERABLES Final Result Performing Organization Address City/State/[facility] Co de Phone Number [facility] [place] [address] * Magnesium (05/15/2024 8:13 AM DIEING OUT MACHINE OPERATOR) Magnesium 2.0 1.4 - 2.5 mg/dL Blood 05/15/2024 8:13 AM DIEING OUT MACHINE OPERATOR 05/15/2024 8:32 AM DIEING OUT MACHINE OPERATOR Christiano Ko MD LAB BLOOD ORDERABLES Final Result [facility] Department [place] [address] * (ABNORMAL) Basic metabolic panel (05/15/2024 8:13 AM DIEING OUT MACHINE OPERATOR) Pathologist [facility] Sodium 146(H) 135 - 145 mmol/L Potassium, pl 4.8 3.3 - 4.9 mmol/L [facility] Chloride 104 97 - 110 mmol/L [facility] CO2 36(H) 22 - 32 mmol/L [facility] Anion gap 6 2 - 15 mmol/L [facility] BUN 19 6 - 25 mg/dL [facility] Creatinine 0.77 0.60 - 1.10 mg/dL [facility] Glucose 114 70 - 199 mg/dL [facility] Comment: Interpretive Data Fasting glucose >/= 126 [...] 2022. Calcium 9.2 8.5 - 10.3 mg/dL [facility] Blood 05/15/2024 8:13 AM DIEING OUT MACHINE OPERATOR 05/15/2024 8:32 AM DIEING OUT MACHINE OPERATOR Christiano Ko MD LAB BLOOD ORDERABLES Final Result Performing Organization Address City/[facility]/ZIP Co de Phone Number [facility] [facility] Department [place] [address] * ECG 12 lead (05/15/2024 7:03 AM DIEING OUT MACHINE OPERATOR) Ventricular Rate EKG/Min 89 BPM [facility] QRS-Interval (MSEC) 88 ms [facility] QT-Interval (MSEC) 478 ms [facility] QTc 581 ms [facility] R [place] 97 degrees [facility] T [place] 33 degrees [facility] Diagnosis Atrial fibrillation Rightward axis Low voltage QRS Abnormal ECG Confirmed by Willow Garcia MD ([id number]) on 05/15/2024 8:45:18 AM [facility] 05/15/2024 7:03 AM DIEING OUT MACHINE OPERATOR 05/15/2024 8:45 AM DIEING OUT MACHINE OPERATOR us Debby Gaona NP ECG ORDERABLES Final Result Performing Organization Address [facility] Co de Phone Number [facility] * ECG 12 lead (05/15/2024 7:02 AM DIEING OUT MACHINE OPERATOR) Ventricular Rate EKG/Min 100 BPM [facility] Atrial Rate 62 BPM [facility] IA-Interval (MSEC) 144 ms [facility] QRS-Interval (MSEC) 76 ms [facility] QT-Interval (MSEC) 456 ms [facility] QTc 588 ms [facility] R [place] 102 degrees [facility] T [place] 156 degrees [facility] Diagnosis Atrial fibrillation/flu tter Poor R-wave progression in the precordial leads Low voltage QRS Anterolateral infarct (cited on or before 13-MAY-2024) T wave abnormality, consider inferior ischemia Prolonged QT Abnormal ECG When compared with ECG of 13-MAY-2024 21:31, Sinus rhythm has replaced Atrial fibrillation Serial changes of evolving Anterior infarct Present Serial changes of evolving Anterolateral infarct Present Confirmed by GABO PIEDRA M.D ([id number]) on 05/25/2024 3:18:42 PM [facility] 05/15/2024 7:02 AM DIEING OUT MACHINE OPERATOR 05/25/2024 3:18 PM DIEING OUT MACHINE OPERATOR us Christiano Ko MD ECG ORDERABLES Final Resul t Performing Organization Address [facility] Co de Phone Number [facility] * POCT glucose (05/14/2024 12:41 PM DIEING OUT MACHINE OPERATOR) Glucose, POC 128 70 - 199 mg/dL Blood 05/14/2024 12:4 1 PM DIEING OUT MACHINE OPERATOR 05/14/2024 12:41 PM DIEING OUT MACHINE OPERATOR us Christiano Ko MD LAB POCT ORDERABLES - DEVIC E Final Result [place] [facility] Department [place] [address] * MRI Brain Tumor W WO Contrast (05/14/2024 12:04 PM DIEING OUT MACHINE OPERATOR) Anatomical Region Laterality Modality Head and Neck N/A Magnetic Resonan ce 05/14/2024 2:00 PM DIEING OUT MACHINE OPERATOR Impressions 05/14/2024 2:25 PM DIEING OUT MACHINE OPERATOR 1. There is 1 mm left cerebral convexity subdural hemorrhage. No midline shift 2. Redemonstrated focus of susceptibility signal within the splenium of the corpus callosum further evaluation was limited secondary to nondiagnostic postcontrast images. The Critical results were discussed with RESIDENTIAL COORDINATOR puls by Dr. Garcia on 05/14/2024 at 2:00 PM Dictated by: Marisol Newton D.O. The radiology attending physician has personally reviewed this study, and had reviewed and/or edited this written report and agrees with it. Electronically signed by: Babak Vora M.D, PHD Narrative 05/14/2024 2:25 PM DIEING OUT MACHINE OPERATOR EXAMINATION: Magnetic resonance imaging (MRI) [...] images. The Critical results were discussed with RESIDENTIAL COORDINATOR puls by Dr. Garcia on 05/14/2024 at 2:00 PM Dictated by: Marisol Newton D.O. The radiology attending physician has personally reviewed this study, and had reviewed and/or edited this written report and agrees with it. Electronically signed by: Babak Vora M.D, PHD Christiano Ko MD IMG MRI PROCEDURES Final Re sult * US Carotids Duplex Bilateral (05/14/2024 9:45 AM DIEING OUT MACHINE OPERATOR) Anatomical Region Laterality Modality Vascular Bilateral Ultrasound 05/14/2024 8:33 AM DIEING OUT MACHINE OPERATOR Narrative 05/15/2024 9:36 AM DIEING OUT MACHINE OPERATOR [facility] - Department of Vascular Surgery, Vascular Laboratory [address] [place] [id number] Carotid Duplex Ultrasound Report Patient Name: LORRAINE CUEVA J : 1945 (78y 4m) Study Date: 05/14/2024 8:33:43 AM Gender: F Tech: Location: [id number] Ref Provider: CHRISTIANO KO Quality: Adequate Order [...] LT VERT PSV 40 cm/sec FINDINGS: Performing Old Testament Professor: Megan Sanderson RVT. Rt Common Carotid Artery: [...] Martin Pitts MD FACS 05/15/2024 9:10:35 AM DIEING OUT MACHINE OPERATOR Procedure Note Martin Pitts MD - 05/15/2024 [employer] [facility] - Department of Vascular Surgery,Vascular Laboratory [address] [place] [id number] Carotid Duplex Ultrasound Report Patient Name: LORRAINE CUEVASimon : 1945 (78y 4m) Study Date: 05/14/2024 8:33:43 AM Gender: F Tech: Location: [id number] Ref Provider: CHRISTIANO KO Quality: Adequate Order [...] LT VERT PSV 40 cm/sec FINDINGS: Performing Old Testament Professor: Megan Sanderson RVT. Rt Common Carotid Artery: [...] Martin Pitts MD FACS 05/15/2024 9:10:35 AM DIEING OUT MACHINE OPERATOR us Christiano Ko MD IMG US PROCEDURES Final Res ult * eGFR (05/14/2024 7:00 AM DIEING OUT MACHINE OPERATOR) eGFR 85 >=60 mL/min/1. 73 [...] last reviewed 2021. Blood 05/14/2024 7:00 AM DIEING OUT MACHINE OPERATOR 05/14/2024 7:37 AM DIEING OUT MACHINE OPERATOR us Debby Gaona NP LAB BLOOD ORDERABLES F inal Result [facility] Department [place] [address] * (ABNORMAL) CBC without differential (05/14/2024 7:00 AM DIEING OUT MACHINE OPERATOR) WBC 5.0 3.8 - 9.9 K/cumm Hgb 9.4(L) 11.9 - 15.5 g/dL [facility] Hct 32.1(L) 35.6 - 45.5 % [facility] Plt 117(L) 150 - 400 K/cumm [facility] MPV 10.5 9.1 - 12.3 fL [facility] RBC 3.19(L) 3.90 - 5.20 M/cumm [facility] MCV 100.6(H) 81.3 - 96.4 fL [facility] MCH 29.5 27.1 - 33.3 pg [facility] MCHC 29.3(L) 32.3 - 35.7 g/dL [facility] RDW CV 14.6 11.1 - 14.9 % [facility] RDW SD 54.3(H) 35.7 - 48.1 fL [facility] NRBC abs 0.00 0.00 - 0.01 K/cumm [facility] Blood 05/14/2024 7:00 AM DIEING OUT MACHINE OPERATOR 05/14/2024 7:33 AM DIEING OUT MACHINE OPERATOR us Debby Gaona NP LAB BLOOD ORDERABLES F inal Result [facility] [place] [address] * Phosphorus (05/14/2024 7:00 AM DIEING OUT MACHINE OPERATOR) Phosphorus, pl 3.9 2.3 - 4.5 mg/dL Blood 05/14/2024 7:00 AM DIEING OUT MACHINE OPERATOR 05/14/2024 7:37 AM DIEING OUT MACHINE OPERATOR Debby Gaona NP LAB BLOOD ORDERABLES F inal Result [facility] [place] [address] * Magnesium (05/14/2024 7:00 AM DIEING OUT MACHINE OPERATOR) Magnesium 1.9 1.4 - 2.5 mg/dL Blood 05/14/2024 7:00 AM DIEING OUT MACHINE OPERATOR 05/14/2024 7:37 AM DIEING OUT MACHINE OPERATOR Debby Gaona NP LAB BLOOD ORDERABLES F inal Result Performing Organization Address City/[facility] Co de Phone Number [facility] Department [place] [address] * (ABNORMAL) Basic metabolic panel (05/14/2024 7:00 AM DIEING OUT MACHINE OPERATOR) [facility] Sodium 145 135 - 145 mmol/L Potassium, pl 4.8 3.3 - 4.9 mmol/L [facility] Chloride 105 97 - 110 mmol/L [facility] CO2 37(H) 22 - 32 mmol/L [facility] Anion gap 3 2 - 15 mmol/L [facility] BUN 16 6 - 25 mg/dL [facility] Creatinine 0.73 0.60 - 1.10 mg/dL [facility] Glucose 87 70 - 199 mg/dL [facility] Comment: Interpretive Data Fasting glucose >/= 126 [...] 2022. Calcium 8.8 8.5 - 10.3 mg/dL [facility] Blood 05/14/2024 7:00 AM DIEING OUT MACHINE OPERATOR 05/14/2024 7:37 AM DIEING OUT MACHINE OPERATOR Debby Gaona NP LAB BLOOD ORDERABLES F inal Result Performing Organization Address [facility] Co de Phone Number [facility] Department [place] [address] * ECG 12 lead (05/13/2024 9:31 PM DIEING OUT MACHINE OPERATOR) Ventricular Rate EKG/Min 108 BPM [facility] Atrial Rate 102 BPM [facility] QRS-Interval (MSEC) 84 ms [facility] QT-Interval (MSEC) 310 ms [facility] QTc 415 ms [facility] R [place] 97 degrees [facility] T [place] -12 degrees [facility] Diagnosis Atrial fibrillation Low voltage QRS Possible Anterolateral infarct , age undetermined Abnormal ECG No previous ECGs available Confirmed by CHRISTY HYATT M.D ([id number]) on 05/14/2024 2:15:07 PM [facility] 05/13/2024 9:31 PM DIEING OUT MACHINE OPERATOR 05/14/2024 2:15 PM DIEING OUT MACHINE OPERATOR us Christiano Ko MD ECG ORDERABLES Final Resul t Performing Organization Address City/[facility]/ZIP Co de Phone Number [facility] * Critical Result Callback Chemistry (05/13/2024 8:11 PM DIEING OUT MACHINE OPERATOR) Pathologist [facility] Date Notified [id number] Time Notified 838 [facility] TestName pCO2 Chao [facility] Called/Read Back Kashif Jarquin [facility] Credentials RN [facility] Called By SB [facility] Blood 05/13/2024 8:1 1 PM DIEING OUT MACHINE OPERATOR 05/13/2024 8:24 PM DIEING OUT MACHINE OPERATOR us Eunice Lynn MD LAB BLOOD ORDERABLES Final Re sult [facility] [place] [address] * (ABNORMAL) Blood gas, venous (05/13/2024 8:11 PM DIEING OUT MACHINE OPERATOR) pH, Venous 7.27(L) 7.32 - 7.43 PCO2, Venous 80(C) 40 - 50 mmHg [facility] PO2, Venous 58 mmHg [facility] Comment: Interpretive Data No Reference Range Established Current Interpretive Data was last revised on 2017. HCO3 Venous, Calculated 38(H) 20 - 30 mmol/L [facility] BE, venous 7 mmol/L [facility] Comment: Interpretive Data No Reference Range Established Current Interpretive Data was last revised on 2017. Blood 05/13/2024 8:11 PM DIEING OUT MACHINE OPERATOR 05/13/2024 8:24 PM DIEING OUT MACHINE OPERATOR Eunice Lynn MD LAB BLOOD ORDERABLES Final Re sult Performing Organization Address [facility] de Phone Number [facility] Department [place] [address] * (ABNORMAL) Blood gas, venous (05/13/2024 5:49 PM DIEING OUT MACHINE OPERATOR) pH, Venous 7.28(L) 7.32 - 7.43 PCO2, Venous 74(H) 40 - 50 mmHg [facility] PO2, Venous 73 mmHg [facility] Comment: Interpretive Data No Reference Range Established Current Interpretive Data was last revised on 2017. HCO3 Venous, Calculated 36(H) 20 - 30 mmol/L [facility] BE, venous 6 mmol/L [facility] Comment: Interpretive Data No Reference Range Established Current Interpretive Data was last revised on 2017. Blood 05/13/2024 5:49 PM DIEING OUT MACHINE OPERATOR 05/13/2024 5:55 PM DIEING OUT MACHINE OPERATOR Eunice Lynn MD LAB BLOOD ORDERABLES Final Re sult Performing Organization Address [facility] de Phone Number [facility] Department [place] [address] * eGFR (05/13/2024 5:13 PM DIEING OUT MACHINE OPERATOR) eGFR 85 >=60 mL/min/1. 73 [...] last reviewed 2021. Blood 05/13/2024 5:13 PM DIEING OUT MACHINE OPERATOR 05/13/2024 5:28 PM DIEING OUT MACHINE OPERATOR Damian Stephen MD LAB BLOOD ORDERABLES Final Res ult Performing Organization Address [facility] de Phone Number [facility] [place] [address] * (ABNORMAL) Blood gas, venous (05/13/2024 5:13 PM DIEING OUT MACHINE OPERATOR) pH, Venous 7.30(L) 7.32 - 7.43 PCO2, Venous 71(H) 40 - 50 mmHg [facility] PO2, Venous 117 mmHg [facility] Comment: Interpretive Data No Reference Range Established Current Interpretive Data was last revised on 2017. HCO3 Venous, Calculated 36(H) 20 - 30 mmol/L [facility] BE, venous 6 mmol/L [facility] Comment: Interpretive Data No Reference Range Established Current Interpretive Data was last revised on 2017. Blood 05/13/2024 5:13 PM DIEING OUT MACHINE OPERATOR 05/13/2024 5:18 PM DIEING OUT MACHINE OPERATOR Damian Stephen MD LAB BLOOD ORDERABLES Final Res ult Performing Organization Address [facility] de Phone Number [facility] [place] [address] * (ABNORMAL) Comprehensive metabolic panel (05/13/2024 5:13 PM DIEING OUT MACHINE OPERATOR) Sodium 146(H) 135 - 145 mmol/L Potassium, pl 4.4 3.3 - 4.9 mmol/L [facility] [facility] Chloride 106 97 - 110 mmol/L [facility] CO2 32 22 - 32 mmol/L [facility] Anion gap 8 2 - 15 mmol/L [facility] BUN 17 6 - 25 mg/dL [facility] Creatinine 0.73 0.60 - 1.10 mg/dL [facility] Glucose 89 70 - 199 mg/dL [facility] Comment: Interpretive Data Fasting glucose >/= 126 [...] 2022. Calcium 9.0 8.5 - 10.3 mg/dL [facility] Bilirubin, total 1.5(H) 0.1 - 1.2 mg/dL [facility] Protein, pl 6.1(L) 6.5 - 8.5 g/dL [facility] Albumin 3.4(L) 3.5 - 5.0 g/dL [facility] Alk phos 54 40 - 130 Units/L [facility] ALT 15 7 - 45 Units/L [facility] AST 26 10 - 45 Units/L [facility] Blood 05/13/2024 5:13 PM DIEING OUT MACHINE OPERATOR 05/13/2024 5:28 PM DIEING OUT MACHINE OPERATOR us Damian Stephen MD LAB BLOOD ORDERABLES Final Res ult [facility] Department [place] [address] * XR Wrist Left 3 or More Views (05/13/2024 5:11 PM DIEING OUT MACHINE OPERATOR) Anatomical Region Laterality Modality Upper Extremities, Wrist Left Compute d Radiography 05/13/2024 5:21 PM DIEING OUT MACHINE OPERATOR Impressions 05/13/2024 5:24 PM DIEING OUT MACHINE OPERATOR 1. Comminuted intra-articular fracture of [...] Dixon Valencia M.D. Narrative 05/13/2024 5:24 PM DIEING OUT MACHINE OPERATOR EXAMINATION: XR HAND LEFT 3 [...] 3 or More Views (05/13/2024 5:11 PM DIEING OUT MACHINE OPERATOR) Anatomical Region Laterality Modality Upper Extremities, Hand Left Computed Radiography 05/13/2024 5:21 PM DIEING OUT MACHINE OPERATOR Impressions 05/13/2024 5:24 PM DIEING OUT MACHINE OPERATOR 1. Comminuted intra-articular fracture of [...] Dixon Valencia M.D. Narrative 05/13/2024 5:24 PM DIEING OUT MACHINE OPERATOR EXAMINATION: XR HAND LEFT 3 [...] it. Electronically signed by: Dixon Valencia M.D. [facility] Julian Stephen MD IMG XR PROCEDURES Final Result * Drugs of Abuse Screen, Urine with Reflex Confirmation (05/13/2024 3:11 PM DIEING OUT MACHINE OPERATOR) Amphetamine, ur Not Detected CutOff 500ng/mL Comment: Interpretive Data - Amphetamines: Samples containing greater than 500 ng/mL d-methamphetamine or other cross-reacting amphetamine compounds are reported as positive. Amphetamine immunoassays are subject to significant false positive rates due to cross-reactivity of non-amphetamine drugs. Confirmatory testing required for definitive results. Current Interpretive Data was last reviewed 2022. Barbiturates, ur Not Detected CutOff 200ng/mL [facility] Comment: Interpretive Data - Barbiturates: Samples containing greater than 200 ng/mL secobarbital or other cross-reacting barbiturate compounds are reported as positive. False positive and false negative results are possible. Confirmatory testing required for definitive results. Current Interpretive Data was last reviewed 2022. Benzodiazepines, ur Not Detected CutOff 100ng/mL [facility] Comment: Interpretive Data - Benzodiazepines: Samples containing greater than 100 ng/mL nordiazepam or other cross-reacting compounds are reported as positive. False positive and false negative results are possible. Confirmatory testing required for definitive results. Current Interpretive Data was last reviewed 2022. Cannabinoids, ur Not Detected CutOff 50 ng/mL [facility] Comment: Interpretive Data - Cannabinoids: Samples containing greater than 50 ng/mL delta-9 THC -COOH or other cross- reacting compounds are reported as positive. False positive and false negative results are possible. Confirmatory testing required for definitive results. Current Interpretive Data was last reviewed 2022. Cocaine, ur Not Detected CutOff 150ng/mL [facility] Comment: Interpretive Data - Cocaine: Samples containing greater than 150 ng/mL benzoylecgonine or other cross- reacting compounds are reported as positive. False positive and false negative results are possible. Confirmatory testing required for definitive results. Current Interpretive Data was last reviewed 2022. Fentanyl, Ur Not Detected CutOff 5 ng/mL [facility] Comment: Interpretive Data - Fentanyl: Samples containing greater than 5 ng/mL norfentanyl, fentanyl, or other cross-reacting fentanyl compounds are reported as positive. False positive and false negative results are possible. Confirmatory testing required for definitive results. Current Interpretive Data was last reviewed 2023. Methadone, ur Not Detected CutOff 300ng/mL [facility] Comment: Interpretive Data - Methadone: Samples containing greater than 300 ng/mL d,l-methadone or other cross-reacting compounds are reported as positive. False positive and false negative results are possible. Confirmatory testing required for definitive results. Current Interpretive Data was last reviewed 2022. Opiates, ur Not Detected CutOff 300ng/mL [facility] Comment: Interpretive Data - Opiates: Samples containing greater than 300 ng/mL morphine or other cross-reacting compounds are reported as positive. False positive and false negative results are possible. Confirmatory testing required for definitive results. Current Interpretive Data was last reviewed 2022. Oxycodone, ur Not Detected CutOff 100ng/mL [facility] Comment: Interpretive Data - Oxycodone: Samples containing greater than 100 ng/mL oxycodone or other cross-reacting compounds are reported as positive. False positive and false negative results are possible. Confirmatory testing required for definitive results. Current Interpretive Data was last reviewed 2022. Phencyclidine, ur Not Detected CutOff 25 ng/mL [facility] Comment: Interpretive Data - Phencyclidine: Samples containing greater than 25 ng/mL phencyclidine or other cross-reacting compounds are reported as positive. False positive and false negative results are possible. Confirmatory testing required for definitive results. Current Interpretive Data was last reviewed 2022. Urine Creatinine 60 mg/dL [facility] Comment: Interpretive Data Urine Creatinine: < 10 mg/dL is extremely dilute = or > 10 but < 20 mg/dL is dilute = or > 20 mg/dL is normal Current Interpretive Data was last revised on 2017. Urine 05/13/2024 3:11 PM DIEING OUT MACHINE OPERATOR 05/13/2024 4:54 PM DIEING OUT MACHINE OPERATOR Narrative [facility] - 05/13/2024 6:24 PM DIEING OUT MACHINE OPERATOR Drug of Abuse screening is performed by immunoassay for medical purposes only. This is not to be used for Pain Management purposes. If Detected, confirmation testing will be performed for Amphetamines, Cocaine, Fentanyl, Methadone, Opiates, Oxycodone or Phencyclidine. Edwige Strickland MD LAB URINE ORDERABLES Final Result Performing Organization Address City/[facility]/ZIP Co de Phone Number [facility] [place] [address] * Critical Result Callback Chemistry (05/13/2024 3:11 PM DIEING OUT MACHINE OPERATOR) Date Notified [id number] Time Notified 1658 [facility] TestName pCO2 Chao [facility] Called/Read Back Damian Stephen [facility] Credentials MD [facility] Called By OCTAVIO [facility] Blood 05/13/2024 3:11 PM DIEING OUT MACHINE OPERATOR 05/13/2024 4:49 PM DIEING OUT MACHINE OPERATOR us Eunice Lynn MD LAB BLOOD ORDERABLES Final Re sult [facility] [place] [address] * (ABNORMAL) Blood gas, venous (05/13/2024 3:11 PM DIEING OUT MACHINE OPERATOR) pH, Venous 7.29(L) 7.32 - 7.43 PCO2, Venous 75(C) 40 - 50 mmHg [facility] PO2, Venous 49 mmHg [facility] Comment: Interpretive Data No Reference Range Established Current Interpretive Data was last revised on 2017. HCO3 Venous, Calculated 37(H) 20 - 30 mmol/L [facility] BE, venous 7 mmol/L [facility] Comment: Interpretive Data No Reference Range Established Current Interpretive Data was last revised on 2017. Blood 05/13/2024 3:11 PM DIEING OUT MACHINE OPERATOR 05/13/2024 4:49 PM DIEING OUT MACHINE OPERATOR us Eunice Lynn MD LAB BLOOD ORDERABLES Final Re sult [facility] Department [place] [address] * (ABNORMAL) POC Blood Gas and Chemistries, Venous - (05/13/2024 11:26 AM DIEING OUT MACHINE OPERATOR) pH, Chao POC 7.34 7.32 - 7.43 pCO2, chao POC 69(H) 40 - 50 mmHg [facility] pO2, chao POC 58 mmHg [facility] Na, POC 144 135 - 145 mmol/L [facility] K POC 4.5 3.3 - 4.9 mmol/L [facility] Comment: Interpretive Data Not all point of care methods assess for hemolysis. Confirm with instrument and retest K+ if not consistent with clinical signs and symptoms. Current Interpretive Data was last revised on 2023. Cl, POC 107 97 - 110 mmol/L [facility] Ionized Ca, POC 5.05 4.50 - 5.10 mg/dL [facility] Glucose, POC 91 70 - 199 mg/dL [facility] Lactate, POC 0.7 0.7 - 2.0 mmol/L [facility] MetHb, Chao POC 0.4 0.0 - 1.9 % [facility] O2 Sat, Chao POC (Katie) 90 % [facility] Base excess, POC 9.6 mmol/L [facility] Hct, POC 29.0(L) 36.3 - 45.3 % [facility] Total Hb, POC 9.5(L) 11.9 - 15.5 g/dL [facility] Blood 05/13/2024 11:2 6 AM DIEING OUT MACHINE OPERATOR 05/13/2024 11:26 AM DIEING OUT MACHINE OPERATOR Eunice Lynn MD LAB POCT ORDERABLES - DEVICE Final Result Performing Organization Address [facility] de Phone Number [facility] Department [place] [address] * (ABNORMAL) Blood gas, venous (05/13/2024 11:23 AM DIEING OUT MACHINE OPERATOR) pH, Venous 7.32 7.32 - 7.43 PCO2, Venous 67(H) 40 - 50 mmHg [facility] PO2, Venous 61 mmHg [facility] Comment: Interpretive Data No Reference Range Established Current Interpretive Data was last revised on 2017. HCO3 Venous, Calculated 35(H) 20 - 30 mmol/L [facility] BE, venous 6 mmol/L [facility] Comment: Interpretive Data No Reference Range Established Current Interpretive Data was last revised on 2017. Blood 05/13/2024 11:2 3 AM DIEING OUT MACHINE OPERATOR 05/13/2024 11:44 AM DIEING OUT MACHINE OPERATOR us Eunice Lynn MD LAB BLOOD ORDERABLES Final Re sult Performing Organization Address [facility] de Phone Number [facility] Department [place] [address] * [place] CRITICAL CARE ILL/INJURED PATIENT INIT 30-74 MIN (05/13/2024 9:51 AM DIEING OUT MACHINE OPERATOR) Narrative Eunice Lynn MD - 05/13/2024 9:51 AM DIEING OUT MACHINE OPERATOR Eunice Lynn MD 05/15/2024 10:07 [...] and Chemistries, Venous - (05/13/2024 8:37 AM DIEING OUT MACHINE OPERATOR) [facility] pH, Chao POC 7.32 7.32 - 7.43 pCO2, chao POC 75(C) 40 - 50 mmHg [facility] pO2, chao POC 40 mmHg [facility] Na, POC 144 135 - 145 mmol/L [facility] K POC 4.7 3.3 - 4.9 mmol/L [facility] Comment: Interpretive Data Not all point of care methods assess for hemolysis. Confirm with instrument and retest K+ if not consistent with clinical signs and symptoms. Current Interpretive Data was last revised on 2023. Cl, POC 107 97 - 110 mmol/L [facility] Ionized Ca, POC 5.05 4.50 - 5.10 mg/dL [facility] Glucose, POC 96 70 - 199 mg/dL [facility] Lactate, POC 0.7 0.7 - 2.0 mmol/L [facility] MetHb, Chao POC 0.3 0.0 - 1.9 % [facility] O2 Sat, Chao POC (Katie) 66 % [facility] Base excess, POC 10.4 mmol/L [facility] Hct, POC 30.0(L) 36.3 - 45.3 % [facility] Total Hb, POC 10.0(L) 11.9 - 15.5 g/dL [facility] Blood 05/13/2024 8:37 AM DIEING OUT MACHINE OPERATOR 05/13/2024 8:37 AM DIEING OUT MACHINE OPERATOR us Christiano Ko MD LAB POCT ORDERABLES - DEVIC E Final Result [facility] Department [place] [address] * [place] CRITICAL CARE ILL/INJURED PATIENT INIT 30-74 MIN (05/13/2024 6:57 AM DIEING OUT MACHINE OPERATOR) Narrative Edwige Strickland MD - 05/13/2024 6:57 AM DIEING OUT MACHINE OPERATOR Edwige Strickland MD 05/13/2024 6:58 [...] anti factor Xa activity (05/13/2024 6:45 AM DIEING OUT MACHINE OPERATOR) Anti Factor Xa <0.10 IUnits/mL [...] revised on 2018. Blood 05/13/2024 6:45 AM DIEING OUT MACHINE OPERATOR 05/13/2024 6:56 AM DIEING OUT MACHINE OPERATOR Efren Castellanos MD LAB BLOOD ORDERABLE S Final Result Performing Organization Address City/State/ZIP Co wi Phone Number [facility] Department [place] [address] * CT Head WO Contrast (05/13/2024 5:53 AM DIEING OUT MACHINE OPERATOR) Anatomical Region Laterality Modality Head and Neck N/A Computed Tomogra phy 05/13/2024 6:11 AM DIEING OUT MACHINE OPERATOR Impressions 05/13/2024 8:26 AM DIEING OUT MACHINE OPERATOR 1. Unchanged subcentimeter focus of [...] Meagan Garcia M.D. Narrative 05/13/2024 8:26 AM DIEING OUT MACHINE OPERATOR EXAMINATION: CT head without contrast [...] (ABNORMAL) Blood gas, venous (05/13/2024 3:38 AM DIEING OUT MACHINE OPERATOR) pH, Venous 7.29(L) 7.32 - 7.43 PCO2, Venous 73(H) 40 - 50 mmHg [facility] PO2, Venous 58 mmHg [facility] Comment: Interpretive Data No Reference Range Established Current Interpretive Data was last revised on 2017. HCO3 Venous, Calculated 36(H) 20 - 30 mmol/L [facility] BE, venous 6 mmol/L [facility] Comment: Interpretive Data No Reference Range Established Current Interpretive Data was last revised on 2017. Blood 05/13/2024 3:38 AM DIEING OUT MACHINE OPERATOR 05/13/2024 3:44 AM DIEING OUT MACHINE OPERATOR Edwige Strickland MD LAB BLOOD ORDERABLES Final Result Performing Organization Address [facility] Co de Phone Number [facility] Department [place] [address] * XR Outside Reference (05/13/2024 3:26 AM DIEING OUT MACHINE OPERATOR) Impressions [facility] - 05/13/2024 3:26 AM DIEING OUT MACHINE OPERATOR These images are for Reference purposes only and have not been reviewed by [facility]. There will be no report generated by a [facility] Radiologist. Narrative [facility] - 05/13/2024 3:26 AM DIEING OUT MACHINE OPERATOR EXAMINATION: Images For Reference Purposes Only Result [facility] Efren Castellanos MD IMG XR PROCEDURES F inal Result Performing Organization Address City/[facility]/ZIP Co de Phone Number [facility] * XR Outside Reference (05/13/2024 3:24 AM DIEING OUT MACHINE OPERATOR) Impressions [facility] - 05/13/2024 3:24 AM DIEING OUT MACHINE OPERATOR These images are for Reference purposes only and have not been reviewed by [facility]. There will be no report generated by a [facility] Radiologist. Narrative [facility] - 05/13/2024 3:24 AM DIEING OUT MACHINE OPERATOR EXAMINATION: Images For Reference Purposes Only Efren Castellanos MD IMG XR PROCEDURES F inal Result Performing Organization Address [facility] de Phone Number [email or web address] * XR Outside Reference (05/13/2024 3:22 AM DIEING OUT MACHINE OPERATOR) Impressions [facility] - 05/13/2024 3:22 AM DIEING OUT MACHINE OPERATOR These images are for Reference purposes only and have not been reviewed by [facility]. There will be no report generated by a [facility] Radiologist. Narrative [facility] - 05/13/2024 3:22 AM DIEING OUT MACHINE OPERATOR EXAMINATION: Images For Reference Purposes Only Efren Castellanos MD IMG XR PROCEDURES F inal Result Performing Organization Address [facility] de Phone Number [email or web address] * XR Outside Reference (05/13/2024 3:20 AM DIEING OUT MACHINE OPERATOR) Impressions [facility] - 05/13/2024 3:20 AM DIEING OUT MACHINE OPERATOR These images are for Reference purposes only and have not been reviewed by [facility]. There will be no report generated by a [facility] Radiologist. Narrative [facility] - 05/13/2024 3:20 AM DIEING OUT MACHINE OPERATOR EXAMINATION: Images For Reference Purposes Only Efren Castellanos MD IMG XR PROCEDURES F inal Result Performing Organization Address [facility] de Phone Number [email or web address] * Neuro CT Outside Consult (05/13/2024 3:17 AM DIEING OUT MACHINE OPERATOR) Anatomical Region Laterality Modality N/A Computed Tomogra phy 05/13/2024 5:34 AM DIEING OUT MACHINE OPERATOR Impressions 05/13/2024 8:26 AM DIEING OUT MACHINE OPERATOR 1. Focal 8 mm hyperdensity [...] images may or may not represent the [employer] [employer] source data set and thus may contain changes that may lower the accuracy of this second-opinion interpretation. Dictated by: Wilfrid Garcia MD The radiology attending physician has personally reviewed this study, and had reviewed and/or edited this written report and agrees with it. Electronically signed by: Meagan Garcia M.D. Narrative 05/13/2024 8:26 AM DIEING OUT MACHINE OPERATOR EXAMINATION: RADIOLOGY CONSULTATION ON OUTSIDE IMAGING STUDY STUDY INITIALLY PERFORMED: 05/12/2024 at [facility]. TYPE OF STUDY: Multiple CT images of [...] IMAGING STUDY STUDY INITIALLY PERFORMED: 05/12/2024 at [facility]. TYPE OF STUDY: Multiple CT images of [...] images may or may not represent the [place] [employer] source data set and thus may contain [...] Neuro CT Outside Consult (05/13/2024 3:13 AM DIEING OUT MACHINE OPERATOR) Anatomical Region Laterality Modality N/A Computed Tomogra phy 05/13/2024 5:34 AM DIEING OUT MACHINE OPERATOR Impressions 05/13/2024 8:26 AM DIEING OUT MACHINE OPERATOR 1. Focal 8 mm hyperdensity [...] images may or may not represent the [employer] [employer] source data set and thus may contain changes that may lower the accuracy of this second-opinion interpretation. Dictated by: Wilfrid Garcia MD The radiology attending physician has personally reviewed this study, and had reviewed and/or edited this written report and agrees with it. Electronically signed by: Meagan Garcia M.D. Narrative 05/13/2024 8:26 AM DIEING OUT MACHINE OPERATOR EXAMINATION: RADIOLOGY CONSULTATION ON OUTSIDE IMAGING STUDY STUDY INITIALLY PERFORMED: 05/12/2024 at [facility]. TYPE OF STUDY: Multiple CT images of [...] IMAGING STUDY STUDY INITIALLY PERFORMED: 05/12/2024 at [facility]. TYPE OF STUDY: Multiple CT images of [...] images may or may not represent the [place] [employer] source data set and thus may contain changes that may lower the accuracy of this second-opinion interpretation. Dictated by: Wilfrid Garcia MD The radiology attending physician has personally reviewed this study, and had reviewed and/or edited this written report and agrees with it. Electronically signed by: Meagan Garcia M.D. Efren Castellanos MD IMG CT PROCEDURES F inal Result * CT Body Outside Consult (05/13/2024 3:10 AM DIEING OUT MACHINE OPERATOR) Anatomical Region Laterality Modality Body N/A Computed Tomogra phy 05/13/2024 4:15 AM DIEING OUT MACHINE OPERATOR Impressions 05/13/2024 9:43 AM DIEING OUT MACHINE OPERATOR 1. Limited evaluation of the [...] images may or may not represent the [employer] [employer] source data set and thus may contain changes that may lower the accuracy of this second-opinion interpretation. Dictated by: Dulce Nicolas MD The radiology attending physician has personally reviewed this study, and had reviewed and/or edited this written report and agrees with it. Electronically signed by: Jim Dueñas M.D. Narrative 05/13/2024 9:43 AM DIEING OUT MACHINE OPERATOR EXAMINATION: RADIOLOGY CONSULTATION ON OUTSIDE IMAGING STUDY STUDY INITIALLY PERFORMED: 05/12/2024 at [facility]. TYPE OF STUDY: Multiple CT images of [...] IMAGING STUDY STUDY INITIALLY PERFORMED: 05/12/2024 at [facility]. TYPE OF STUDY: Multiple CT images of [...] images may or may not represent the [employer] source data set and thus may contain changes that may lower the accuracy of this second-opinion interpretation. Dictated by: Dulce Nicolas MD The radiology attending physician has personally reviewed this study, and had reviewed and/or edited this written report and agrees with it. Electronically signed by: Jim Dueñas M.D. Efren Castellanos MD IMI[facility] CT PROCEDURES F inal Result * Chest xray, 1 view, portable (05/13/2024 1:20 AM DIEING OUT MACHINE OPERATOR) Anatomical Region Laterality Modality Body, Chest N/A Computed Radiogr aphy 05/13/2024 1:45 AM DIEING OUT MACHINE OPERATOR Impressions 05/13/2024 9:58 AM DIEING OUT MACHINE OPERATOR No radiographs comparison radiograph dated [...] Jim Dueñas M.D. Narrative 05/13/2024 9:58 AM DIEING OUT MACHINE OPERATOR EXAMINATION: 1 view chest radiograph [...] Result * POCT glucose (05/13/2024 1:14 AM DIEING OUT MACHINE OPERATOR) Glucose, POC 94 70 - 199 mg/dL Blood 05/13/2024 1:14 AM DIEING OUT MACHINE OPERATOR 05/13/2024 1:14 AM DIEING OUT MACHINE OPERATOR Edwige Strickland MD LAB POCT ORDERABLES - DEVICE Final Result [facility] Department [place] [address] * (ABNORMAL) POC Blood Gas and Chemistries, Venous - (05/13/2024 1:13 AM DIEING OUT MACHINE OPERATOR) pH, Chao POC 7.33 7.32 - 7.43 pCO2, chao POC 72(H) 40 - 50 mmHg [facility] pO2, chao POC 46 mmHg [facility] Na, POC 143 135 - 145 mmol/L [facility] K POC 4.8 3.3 - 4.9 mmol/L [facility] Comment: Interpretive Data Not all point of care methods assess for hemolysis. Confirm with instrument and retest K+ if not consistent with clinical signs and symptoms. Current Interpretive Data was last revised on 2023. Cl, POC 107 97 - 110 mmol/L [facility] Ionized Ca, POC 4.95 4.50 - 5.10 mg/dL [facility] Glucose, POC 96 70 - 199 mg/dL [facility] Lactate, POC 0.8 0.7 - 2.0 mmol/L [facility] MetHb, Chao POC 0.6 0.0 - 1.9 % [facility] O2 Sat, Chao POC (Katie) 76 % [facility] Base excess, POC 10.0 mmol/L [facility] Hct, POC 31.0(L) 36.3 - 45.3 % [facility] Total Hb, POC 10.2(L) 11.9 - 15.5 g/dL [facility] Blood 05/13/2024 1:13 AM DIEING OUT MACHINE OPERATOR 05/13/2024 1:13 AM DIEING OUT MACHINE OPERATOR Edwige Strickland MD LAB POCT ORDERABLES - DEVICE Final Result [facility] Department [place] [address] * Thromboelastometry Panel - Heparin (05/13/2024 12:59 AM DIEING OUT MACHINE OPERATOR) HEPTEM-CT 178 141 - 215 sec HEPTEM-A5 44 33 - 51 mm [facility] HEPTEM-A10 54 44 - 61 mm [facility] HEPTEM-A20 60 52 - 67 mm [facility] HEPTEM-MCF 62 54 - 69 mm [facility] Blood 05/13/2024 12:5 9 AM DIEING OUT MACHINE OPERATOR 05/13/2024 1:20 AM DIEING OUT MACHINE OPERATOR us Edwige Strickland MD LAB BLOOD ORDERABLES Edited Result - Final Performing Organization Address City/[facility]/ZIP Co de Phone Number [facility] Department [place] [address] * Thromboelastometry Panel - Intrinsic (05/13/2024 12:59 AM DIEING OUT MACHINE OPERATOR) INTEM-CT 179 139 - 205 sec INTEM-A5 44 36 - 54 mm [facility] INTEM-A10 53 46 - 63 mm [facility] INTEM-A20 60 53 - 68 mm [facility] INTEM-MCF 61 55 - 70 mm [facility] INTEM-LI60 96 93 - 100 % [facility] INTEM-ML 5 0 - 7 % [facility] Blood 05/13/2024 12:5 9 AM DIEING OUT MACHINE OPERATOR 05/13/2024 1:20 AM DIEING OUT MACHINE OPERATOR us Edwige Strickland MD LAB BLOOD ORDERABLES Edited Result - Final Performing Organization Address [facility] Co de Phone Number [facility] Department [place] [address] * (ABNORMAL) Thromboelastometry Panel - Fibrinogen (05/13/2024 12:59 AM DIEING OUT MACHINE OPERATOR) FIBTEM-A5 17(H) 5 - 16 mm FIBTEM-A10 19(H) 6 - 17 mm [facility] FIBTEM-A20 21(H) 6 - 18 mm [facility] FIBTEM-MCF 21(H) 9 - 19 mm [facility] Blood 05/13/2024 12:5 9 AM DIEING OUT MACHINE OPERATOR 05/13/2024 1:20 AM DIEING OUT MACHINE OPERATOR us Edwige Strickland MD LAB BLOOD ORDERABLES Edited Result - Final Performing Organization Address City/[facility]/ZIP Co de Phone Number [facility] Department [place] [address] * Thromboelastometry Panel - Extrinsic (05/13/2024 12:59 AM DIEING OUT MACHINE OPERATOR) Pathologist [facility] EXTEM-CT 65 51 - 73 sec EXTEM-A5 44 33 - 52 mm [facility] EXTEM-A10 54 45 - 62 mm [facility] EXTEM-A20 60 54 - 69 mm [facility] EXTEM-MCF 62 57 - 72 mm [facility] EXTEM-LI60 96 94 - 100 % [facility] EXTEM-ML 5 0 - 6 % [facility] Blood 05/13/2024 12:5 9 AM DIEING OUT MACHINE OPERATOR 05/13/2024 1:20 AM DIEING OUT MACHINE OPERATOR Edwige Strickland MD LAB BLOOD ORDERABLES Edited Result - Final Performing Organization Address [facility] Co de Phone Number [place] [facility] [place] [address] * Differential, auto (05/13/2024 12:59 AM DIEING OUT MACHINE OPERATOR) [facility] Neutrophil abs 3.9 1.5 - 6.5 K/cumm Imm gran abs 0.0 0.0 - 0.1 K/cumm [facility] Lymphocyte abs 0.9 0.8 - 3.3 K/cumm [facility] Monocyte abs 0.4 0.2 - 0.8 K/cumm [facility] Eosinophil abs 0.1 0.0 - 0.5 K/cumm [facility] Basophil abs 0.0 0.0 - 0.1 K/cumm [facility] Neutrophil pct 74.6 % [facility] Comment: Interpretive Data Percent cell count reference ranges are not reported, since discordance with absolute values may lead to misinterpretation of CBC data. Current Interpretive Data was last revised on 2017. Imm gran pct 0.2 % [facility] Comment: Interpretive Data Percent cell count reference ranges are not reported, since discordance with absolute values may lead to misinterpretation of CBC data. Current Interpretive Data was last revised on 2017. Lymphocyte pct 16.2 % [facility] Comment: Interpretive Data Percent cell count reference ranges are not reported, since discordance with absolute values may lead to misinterpretation of CBC data. Current Interpretive Data was last revised on 2017. Monocyte pct 7.3 % [facility] Comment: Interpretive Data Percent cell count reference ranges are not reported, since discordance with absolute values may lead to misinterpretation of CBC data. Current Interpretive Data was last revised on 2017. Eosinophil pct 1.5 % [facility] Comment: Interpretive Data Percent cell count reference ranges are not reported, since discordance with absolute values may lead to misinterpretation of CBC data. Current Interpretive Data was last revised on 2017. Basophil pct 0.2 % [facility] Comment: Interpretive Data Percent cell count reference ranges are not reported, since discordance with absolute values may lead to misinterpretation of CBC data. Current Interpretive Data was last revised on 2017. Blood 05/13/2024 12:5 9 AM DIEING OUT MACHINE OPERATOR 05/13/2024 1:17 AM DIEING OUT MACHINE OPERATOR Ediwge Strickland MD LAB BLOOD ORDERABLES Final Result [facility] Department [place] [address] * (ABNORMAL) CBC with auto differential (05/13/2024 12:59 AM DIEING OUT MACHINE OPERATOR) WBC 5.2 3.8 - 9.9 K/cumm Comment:Code Blue Specimen Hgb 9.7(L) 11.9 - 15.5 g/dL [facility] Hct 31.7(L) 35.6 - 45.5 % [facility] Plt 124(L) 150 - 400 K/cumm [facility] MPV 10.6 9.1 - 12.3 fL [facility] RBC 3.29(L) 3.90 - 5.20 M/cumm [facility] MCV 96.4 81.3 - 96.4 fL [facility] MCH 29.5 27.1 - 33.3 pg [facility] MCHC 30.6(L) 32.3 - 35.7 g/dL [facility] RDW CV 14.9 11.1 - 14.9 % [facility] RDW SD 53.0(H) 35.7 - 48.1 fL [facility] NRBC abs 0.00 0.00 - 0.01 K/cumm [facility] Blood 05/13/2024 12:5 9 AM DIEING OUT MACHINE OPERATOR 05/13/2024 1:17 AM DIEING OUT MACHINE OPERATOR Edwige Strickland MD LAB BLOOD ORDERABLES Final Result Performing Organization Address [facility] de Phone Number [facility] [place] [address] * aPTT (05/13/2024 12:59 AM DIEING OUT MACHINE OPERATOR) aPTT 28 28 - 38 sec Comment: Code Blue Specimen Interpretive Data Heparin therapeutic range: 66.0 - 100.0 seconds. Range based on correlation with therapeutic heparin activity range of 0.3 - 0.7 Units/mL. Current interpretive data was last revised on 2022. Blood 05/13/2024 12:5 9 AM DIEING OUT MACHINE OPERATOR 05/13/2024 1:30 AM DIEING OUT MACHINE OPERATOR Edwige Strickland MD LAB BLOOD ORDERABLES Final Result Performing Organization Address City/[facility] Co de Phone Number [facility] [place] [address] * Protime-INR (05/13/2024 12:59 AM DIEING OUT MACHINE OPERATOR) PT 11.5 9.7 - 13.0 sec Comment:Code Blue Specimen INR 1.06 0.90 - 1.20 [facility] Comment: Code Blue Specimen Interpretive data Oral anticoagulant therapeutic ranges: Venous thromboembolism prophylaxis or treatment: 2.0-3.0 CARDIOLOGY Standard range: 2.0-3.0 High-intensity range: 2.5-3.5 Refer to indication-specific guidelines for appropriate target ranges for prosthetic heart valve replacement. Current interpretive data was last revised on 2019. Blood 05/13/2024 12:5 9 AM DIEING OUT MACHINE OPERATOR 05/13/2024 1:30 AM DIEING OUT MACHINE OPERATOR us Edwige Strickland MD LAB BLOOD ORDERABLES Final Result Performing Organization Address [facility] de Phone Number [facility] [place] [address] * Type and screen (05/13/2024 12:59 AM DIEING OUT MACHINE OPERATOR) ABO Rh A Positive [place], indirect Negative [facility] Blood 05/13/2024 12:5 9 AM DIEING OUT MACHINE OPERATOR 05/13/2024 1:21 AM DIEING OUT MACHINE OPERATOR Narrative [facility] - 05/13/2024 2:09 AM DIEING OUT MACHINE OPERATOR Has the patient had Daratumumab or Isatuximab in the past 6 months?->Unknown us Edwige Strickland MD LAB BLOOD BANK TEST O RDERABLES Final Result Performing Organization Address [facility] de Phone Number [facility] [place] [address] * Ethanol (05/13/2024 12:59 AM DIEING OUT MACHINE OPERATOR) Ethanol <10 <=10 mg/dL Comment: Code Blue Specimen Interpretive Data Legal limit of intoxication > or = 80 mg/dL Levels > or = 400 mg/dL are potentially TOXIC. Current interpretive data was last revised on 2018. Blood 05/13/2024 12:5 9 AM DIEING OUT MACHINE OPERATOR 05/13/2024 1:25 AM DIEING OUT MACHINE OPERATOR us Edwige Strickland MD LAB BLOOD ORDERABLES Final Result [facility] [place] [address] from Last 3 Months Insurance MEDICARE MEDICARE [facility] MEDICARE SUPPLEMENT MEDICARE [facility] MEDICARE SUPPLEMENT Advance Directives For more information, please contact: [phone] * Full Code (Latest Code Status on File) Date Activated Date Inactivated Comments 05/13/2024 8:42 PM 05/27/2024 11:27 PM Care Teams Salesperson Women'S Dresses Relationship Specialty Start Date End Date Meagan Yusuf MD PCP - General Family Medicine 05/22/23 Annemarie Lea MD [address] [place] [address] Consulting Physician Otolaryngology 05/27/24 Margy Walker MD PhD [address] [place] [address] Consulting Physician Plastic Surgery 05/27/24 Geraldine Barbosa NP [address] [place] [address] Nurse Practitioner Neurosurgery 05/27/24
--- OUTSIDE RECORDS SUMMARY | 2024-06-05 18:09 | XMS_ITS | Continuity of Care Document ---
Author Organization [facility] Address [address] [address] [place] [address] Phone Care Team Providers Care Preload Supervisor Name Role Phone Guerrero Cho MD Unavailable [...] Copied on Encounter OFFICE/OUTPA TIENT VISIT EST [facility], [address] [place] [address], [address], tel:[phone] [facility] Chaitanya Status post reverse total arthroplasty of right shoulderAfter care following right shoulder joint replacement surgery 9 Marquis Masters. [address], [place], [place], [id number] . tel: [phone] [facility], [address] [place] [address], [address], tel:[phone] [facility] Chaitanya s/p reverse right shoulder (chief complaint) Status post reverse total arthroplasty of right shoulder 8 Marquis Masters. [address], [place], [place], [id number] . tel: [phone] [facility], [address] [place] [address], [address], tel:[phone] [facility] Other specific arthropathies , not elsewhere classified, right shoulder 8 Marquis Masters. [address], [place], [place], [id number] . tel: [phone] OFFICE/OUTPA TIENT VISIT EST [facility], [address] [place] [address], [address], [phone] [facility] Complete tear of right rotator cuffPrimary osteoarthriti s of right shoulder 0 8 Marquis Masters. [address], [place], [place], [id number] . tel: [phone] OFFICE/OUTPA TIENT VISIT EST [facility], [address] [place] [address], [address], [place] tel:[phone] [facility] Chaitanya RT SHOULDER INJURY 7\ (chief complaint) Body mass index (BMI) 40.0-44.9, adultComplete tear of right rotator cuff 8 Sangita Abhinav. [address] [place] [address], [id number] . tel: [phone] Referring Provider: Juan David Patiño, [address] [place], [place], [address]. tel:[phone] OFFICE/OUTPA TIENT VISIT [facility], [address] [place] [address], [address], [place] tel:[phone] [facility] History of total right hip arthroplasty 8 Sangita La. [address] [place] [address], [id number] . tel: [phone] Referring Provider: Meagan Wren, PERMANENTLY CLOSED [address] [place], [place], [address]. tel:[phone] [facility], [address] [place] [address], [address], [place] tel:[phone] [facility] History of total right hip arthroplasty 7 Sangita La. [address] [place] [address], [id number] . tel: [phone] [facility], [address] [place] [address], [address], [place] tel:[phone] [facility] Ballas R YANIRA 11/08/16 (chief complaint) History of total right hip arthroplasty 7 Michael Lemos. [address] [place] [address] [address], [place], [place], [id number] . tel: [phone] [facility], [address] [place] [address], [address], [phone] [facility] R YANIRA 11/08/16 (chief complaint) History of total right hip arthroplasty Sep-0 7 Michael Lemos. [address] [place] [address] [address], [place], [place], [id number] . tel: [phone] [facility], [address] [place] [address], [address], [place] tel:[phone] [facility] No Information Sangita La. [address] [place] [address], [id number] . tel: [phone] OFFICE/OUTPA TIENT VISIT EST [facility], [address] [place] [address], [address], tel:[phone] [facility] Follow Up of after right hip mri (chief complaint) Primary osteoarthriti s of right hipHip abductor tendinitis, right 7 Sangita La. [address] [place] [address], [id number] . tel: [phone] OFFICE/OUTPA TIENT VISIT [facility], [address] [place] [address], [address], [place] [phone] [facility] R hip (chief complaint) Body mass index (BMI) 38.0-38.9, adultPrimary osteoarthriti s of right hipHip abductor tendinitis, right 7 Sangita La. [address] [place] [address], [id number] . tel: [phone] Referring Provider: Kristel Villegas, [address] [employer], [place], [address]. tel:[phone] Family History Family Member Type Diagnosis Age At Onset Brother Problem (finding) Alive and well Immunizations Vaccine Date Status Comments Pneumo (2 yrs or older)(PPV) administered Source: Other Provider Payers Payer name Insurance type Covered libertarian ID Lela gong(s) Medicare E2 OT [id number] [place] Medicare Supplement E2 OT [id number] Social History Type Description Quantity Date [...]
--- OUTSIDE RECORDS SUMMARY | 2024-06-05 18:09 | XMS_ITS | Clinical Summary ---
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 Gender Identity Not on file Sexual Orientation Not on file Last Filed Vital Signs Vital Sign Reading Time Taken Comments Blood Pressure 123/62 01/30/2018 12:28 PM 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 Pulse 74 01/30/2018 12:28 PM 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 Temperature 36.5 C (97.7 F) 01/30/2018 12:28 PM 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 Respiratory Rate 10 01/30/2018 12:28 PM 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 OPERATOR Oxygen Saturation 93% 01/30/2018 12:28 PM 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 Inhaled Oxygen Concentration - - Weight 116.6 kg (257 lb) 01/28/2018 8:16 AM 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 OPERATOR Height 167.6 cm (5' 6 ) 01/28/2018 8:16 AM 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 OPERATOR Body Mass Index 41.48 01/28/2018 8:16 AM 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 Plan of Treatment Health Maintenance Due Date Last Done Comments DTAP/TDAP/TD VACCINES (1 - Tdap) 12/21/1966 PNEUMOCOCCAL VACCINE 50+ YEARS (1 of 2 - PCV) 12/21/18 67 ZOSTER VACCINE (1 of 2) 12/21/1997 OSTEOPOROSIS SCREENING 12/21/2012 RSV VACCINE (60+ or ) (1 - 1-dose 75+ series) 12/21/2022 INFLUENZA VACCINE (#1) 2023 01/28/2018 Medical Devices Implanted Type Area Gas Operations Analyst Device Identifier Shelf Expiration Date Model / Serial / Lot Shell Ringlc+ Pc 54mm [id number] - [id number] Implanted:Qty: 1 on 11/08/2016 by Abhinav Quesada MD at [facility] Hip Right: Hip [employer] [id number] 09/27/2026 [id number] / / [id number] Liner Arcomxl Rnglc Sz24 Xl-[id number] - [id number] Implanted:Qty: 1 on 11/08/2016 by Abhinav Quesada MD at [facility] Hip Right: Hip [employer] [id number] 10/01/2020 [id number] / / [id number] Stem Fem Echo Bmtrc Por Red Lat [id number] - [id number] Implanted:Qty: 1 on 11/08/2016 by Abhinav Quesada MD at [facility] Hip Right: Hip [employer] [id number] 04/11/2025 [id number] / / [id number] Head Modular Noskt 36mm -3mm [id number] - [id number] Implanted:Qty: 1 on 11/08/2016 by Abhinav Quesada MD at [facility] Hip Right: Hip [employer] [id number] 09/25/2026 [id number] / / [id number] Rsp Glenoid Head W Retaining Screw Neutral Sz 32mm Implanted:Qty: 1 on 01/27/2018 by Guerrero Cho MD at [facility] Other Right: Shoulder [employer] 12/05/2023 508-32-10 1 / / [id number] Small Socket Insert 32mm Semi Constrained E Plus Implanted:Qty: 1 on 01/27/2018 by Guerrero Cho MD at [facility] Other Right: Shoulder [employer] 11/29/2022 509-03-03 2 / / [id number] Humeral Stem Small Shell [id number] Implanted:Qty: 1 on 01/27/2018 by Guerrero Coh MD at [facility] Other Right: Shoulder [employer] 11/22/2023 533-10-10 8 / / [id number] Description:All DJ[employer] Surgical shoulder components are processed on requisition,[id number]. Rsp Glenoid Baseplate Implanted:Qty: 1 on 01/27/2018 by Guerrero Cho MD at [facility] Screw Right: Shoulder [employer] [id number] 10/23/2023 508-32-20 4 / / [id number] Rsp Bone Screw Locking Sz 5.0mm 30mm Long Implanted:Qty: 1 on 01/27/2018 by Guerrero Cho MD at [facility] Screw Right: Shoulder [employer] 06/25/2023 506-03- 0 / / [id number] Rsp Bone Screw Locking Sz 5.0mm 22 Mm Long Implanted:Qty: 1 on 01/27/2018 by Guerrero Cho MD at [facility] Screw Right: Shoulder [employer] 08/17/2023 506-12 2 / / [id number] Bone Screw Rsp5.0x26mm Long Implanted:Qty: 1 on 01/27/2018 by Guerrero Cho MD at [facility] Screw Right: Shoulder [employer] 6 / / Rsp Bone Screw- Locking Implanted:Qty: 1 on 01/27/2018 by Guerrero Cho MD at [facility] Right: Shoulder [employer] 11/01/2023 506-03-11 [id number] Insurance MEDICARE PART A AND B BCBS SUPP RX [employer] Medicare Part D RX [facility] Medicare Part D Advance Directives For more information, please contact: [phone] Documents on File Type Date Recorded Patient Mailroom Supervisor Expl anation Advance Directive POA 02/04/2018 1:58 [...] 6:44 AM 11/08/2016 7:30 AM Care Teams National Sales Manager Relationship Specialty Start Date End Date Juan David Yusuf MD PCP - General Family Practice 01/14/18
[2024-06-05] MEDS: dilTIAZem HCl INJ 25 MG/5 ML VIAL 10 MG IV PUSH (18:47)
[2024-06-05 18:48] VITALS: BP 109/72; PULSE 102; PULSE 109; RESP 18; RESP 20; O2SAT 100
[2024-06-05] MEDS: IPRATROPIUM BR 0.02% INH SOLN 0.5 MG/2.5 ML VIAL 1.5 MG INHALATION (18:49)
[2024-06-05] MEDS: LEVALBUTEROL NEB 1.25 MG/3 ML 2.5 MG INHALATION (18:49)
--- NOTE | 2024-06-05 18:56 | ECG_ITS ---
Test Date: 2024-06-05 19:05:17 Measurements Intervals [place] Rate: 81 P: 0 SD: 0 QRS: -1 QRSD: 98 T: 120 QT: 380 QTc: 443 Interpretive Statements ATRIAL FIBRILLATION LOW QRS VOLTAGE IN PRECORDIAL LEADS POSSIBLE ANTERIOR MYOCARDIAL INFARCTION , OF INDETERMINATE AGE Electronically Signed On 06-07-2024 13:53:36 CDT by Britton Mancera D.O
[2024-06-05 18:59] LABS: Basophils Percent Auto 0.2 % (0.2-1.2); Hematocrit 32.4 % (37.0-47.0); Hemoglobin 9.5 g/dL (12.0-15.0); Immature Granulocyte Absolute 0.06 K/mm3 (0.00-0.031); Immature Granulocyte Percent A 1.1 % (0-0.5); Lymphocytes Absolute Auto 0.44 K/mm3 (0.9-3.2); Lymphocytes Percent Auto 8.4 % (18.3-44.2); Mean Corpuscular HGB Conc 29.3 g/dl (32-36); Mean Corpuscular Hemoglobin 29.5 pg (26-34); Mean Corpuscular Volume 100.6 fl (80-100); Mean Platelet Volume 10.8 fl (7.4-10.4); Monocytes Absolute Auto 0.2 K/mm3 (0.1-0.6); Monocytes Percent Auto 3.1 % (2.6-8.5); Neutrophils Absolute Auto 4.6 K/mm3 (1.3-6.7); Neutrophils Percent Auto 87.2 % (45.5-73.1); Platelet Count Result 165 k/mm3 (150-375); Red Blood Count 3.22 M/mm3 (4.2-5.4); Red Cell Distribution Width 15.1 % (11.5-14.5); White Blood Count 5.2 K/mm3 (4.5-10.0)
[2024-06-05 19:10] LABS: Alanine Aminotransferase 15 U/L (6-35); Albumin Level 3.6 g/dL (3.5-5.1); Alkaline Phosphatase 63 U/L (38-126); Anion Gap 6 mmol/L (4-12); Aspartate Amino Transferase 18 U/L (14-36); Bilirubin,Total 0.5 mg/dL (0.2-1.3); Blood Urea Nitrogen 37 mg/dL (7-17); Calcium 8.8 mg/dL (8.4-10.2); Carbon Dioxide 36 mmol/L (22-30); Chloride 97 mmol/L (98-107); Estimated Glomerular Filt Rate > 60; Glucose 153 mg/dL (65-110); Magnesium 2.1 mg/dL (1.6-2.3); Potassium 4.9 mmol/L (3.4-5.0); Sodium 139 mmol/L (137-145)
[2024-06-05 19:12] VITALS: PULSE 92; RESP 20
[2024-06-05 19:13] LABS: INR 0.9
[2024-06-05 19:14] LABS: Partial Thromboplastin Time 26.9 Seconds (22.3-36.8)
[2024-06-05 19:20] LABS: Band Neutrophils Percent 0 % (0-6); Platelet Estimate Adequate (Adequate); Schistocytes None Seen
[2024-06-05 19:21] LABS: Anisocytosis 1+; Hypochromasia 1+; NT Pro B Type Natriuretic Pept 3420 pg/mL (19.9-100); Troponin I < 0.012 ng/mL (0.000-0.034)
[2024-06-05 20:44] LABS: Influenza A QL RT-PCR Negative (Negative); Influenza B QL RT-PCR Negative (Negative); RSV RNA, RT-PCR Negative (Negative); SARS-CoV-2 RNA PCR Positive (Negative)
[2024-06-05 20:46] VITALS: BP 117/87; PULSE 88; RESP 18; O2SAT 98
[2024-06-05 22:01] VITALS: BP 156/93; PULSE 97; RESP 19; O2SAT 98
[2024-06-05] MEDS: FUROSEMIDE INJ 40 MG/4 ML VIAL IV PUSH (22:28)
--- NOTE | 2024-06-05 22:32 | PC.NURSE ---
Additional PIV obtained for CTA. Pt medicated as per mar with lasix. Pt to CT via stretcher at this time
--- NOTE | 2024-06-05 22:59 | PC.NURSE ---
Patients family updated.
[2024-06-06] VITALS (7 sets, daily range): BP systolic 127–151; BP diastolic 85–109; PULSE 79–98; RESP 14–23; O2SAT 94–98
--- NOTE | 2024-06-06 00:30 | PC.NURSE ---
this rn spoke with Yamilet, rn relief charge at [facility] about patient discharge instructions.
--- NOTE | 2024-06-06 10:11 | PC.NURSE ---
RN called [facility] and informed on pt being transported by pt son.
== END 2024-06-06 10:17 ==
PROVIDERS: Family Medicine; Emergency Provider Physician Assistant; PCP Family Medicine
DX: I48.91 Unspecified atrial fibrillation (principal); U07.1 COVID-19; S06.36AD Traumatic hemorrhage of cerebrum, unspecified, with loss of consciousness status unknown, subsequent encounter; S02.30XD Fracture of orbital floor, unspecified side, subsequent encounter for fracture with routine healing; S62.102D Fracture of unspecified carpal bone, left wrist, subsequent encounter for fracture with routine healing; I50.9 Heart failure, unspecified; I11.0 Hypertensive heart disease with heart failure; I27.20 Pulmonary hypertension, unspecified; I25.2 Old myocardial infarction; J96.11 Chronic respiratory failure with hypoxia; J44.9 Chronic obstructive pulmonary disease, unspecified; E78.2 Mixed hyperlipidemia; G25.81 Restless legs syndrome; G62.9 Polyneuropathy, unspecified; M17.9 Osteoarthritis of knee, unspecified; M16.11 Unilateral primary osteoarthritis, right hip; F32.A Depression, unspecified; Z99.81 Dependence on supplemental oxygen; Z96.641 Presence of right artificial hip joint; Z96.611 Presence of right artificial shoulder joint; Z87.440 Personal history of urinary (tract) infections; Z86.16 Personal history of COVID-19; Z87.891 Personal history of nicotine dependence; Z90.710 Acquired absence of both cervix and uterus; K44.9 Diaphragmatic hernia without obstruction or gangrene; Z79.85 Long-term (current) use of injectable non-insulin antidiabetic drugs; Z79.899 Other long term (current) drug therapy; R94.31 Abnormal electrocardiogram [ECG] [EKG]; W19.XXXD Unspecified fall, subsequent encounter
CPT/HCPCS: 36415; 71045; 71275; 80053; 83735; 83880; 84484; 85025; 85610; 85730; 87637; 93005; 94640; 96374; 96375; 99284; J1940; Q9967

== ENCOUNTER 2024-08-06 12:26 | Outpatient (CLI) | payer MEDICARE, SELFPAY ==
--- OUTSIDE RECORDS SUMMARY | 2024-08-06 12:34 | XMS_ITS ---
Author Name Auto Generated, Auto Generated Organization [employer] [facility] ices Address [address] [place] [address] Phone [phone] Care Team Providers Care Paste Up Artist Apprentice Name Role Phone Camila Spence Unavailable Emy Su Unavailable Meagan Turner Unavailable [phone] Functional Status Mental Status Allergies and Intolerances Encounters Immunizations Medications Problems Vital Signs Reason for Referral Past Medical History
--- OUTSIDE RECORDS SUMMARY | 2024-08-06 12:34 | XMS_ITS | Encounter Summary ---
Author Organization [employer] Address 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
--- OUTSIDE RECORDS SUMMARY | 2024-08-06 12:34 | XMS_ITS | Referral Summary ---
Author Organization [facility] Address [facility] [place] [address] Care Team Providers Care Track Rider Name Role Phone Meagan Yusuf MD Primary Care Provider + Annemarie Lea MD Unavailable [phone] Margy Walker MD PhD Unavailable [phone] Geraldine Barbosa NP Unavailable [phone] Encounters Date Type Department Care Team Description 07/22/2024 9:30 AM CDT Office Visit [facility] Cardiology at [address] [place] [address] Radha Jimenez MD Nonrheumatic mitral valve regurgitation (Primary Dx); Nonrheumatic tricuspid valve regurgitation; Mixed hyperlipidemia; Labile hypertension; Coronary artery disease involving capitan grande band coronary artery of capitan grande band heart without angina pectoris; Frequent falls; Persistent atrial fibrillation (HCC); Chronic anticoagulation; Chronic diastolic heart failure (HCC) 06/30/2024 10:00 AM CDT Office Visit [facility] Ophthalmology [address] [place] [address] [place] [phone] Leeann Horvath MD Orbital floor (blow-out) closed fracture (HCC) (Primary Dx); Mixed type age-related cataract, both eyes 06/23/2024 11:59 AM CDT - 06/23/2024 11:59 PM CDT Hospital Encounter [facility] [address] [place] [address] Discharge Disposition: Discharge to home or self care 06/23/2024 11:00 AM CDT Office Visit [facility] Surgery [address] [facility] 6th [place] [phone] Margy Walker MD PhD Fracture (Primary Dx); Other closed intra-articular fracture of distal end of left radius, initial encounter 06/15/2024 Telephone [facility] Surgery [address] [facility] 6th [place] [phone] Erica Velarde 06/09/2024 Telephone [facility] Scheduling [address] [place] [address] Nu Milian MD 05/31/2024 Telephone [facility] Ophthalmology [address] [place] [address] 1st [place] [phone] Leeann Horvath MD 05/28/2024 Documentation [facility] Surgeon [address] [place] [address] Lorena Beck NP 05/27/2024 Telephone [facility] ([facility] ENT [address] [facility] 11th Floor [address] [place] [phone] BurgessChuckySybil, 05/13/2024 12:53 AM LEADERSHIP RECRUITER - 05/27/2024 7:22 PM LEADERSHIP RECRUITER Hospital Encounter [address] [phone] Edwige Strickland MD Vallar, Kelly Jean, MD Smith, Miya Alys, MD Croft, Alexander, MD Fall, initial encounter (Primary Dx); Closed fracture of right orbital floor, initial encounter (HCC); Frequent falls; Other closed intra-articular fracture of distal end of left radius, initial encounter Discharge Disposition: Discharge to an Rehab facility 05/19/2024 7:30 AM LEADERSHIP RECRUITER - 05/19/2024 10:50 AM LEADERSHIP RECRUITER Surgery [facility] Operating Room [address] [place] [phone] Annemarie Lea MD OPEN REDUCTION INTERNAL FIXATION - ORBITAL FRACTURE 05/19/2024 7:51 AM LEADERSHIP RECRUITER Anesthesia Event [facility] Operating Room [address] [place] [address] Mag Villatoro MD Ridenour, Rebekah Elizabeth, ALFONSO 05/18/2024 3:50 PM LEADERSHIP RECRUITER - 05/18/2024 6:30 PM LEADERSHIP RECRUITER Surgery [facility] Operating Room [address] [place] [address] Margy Walker MD PhD OPEN REDUCTION INTERNAL FIXATION RADIUS - DISTAL 05/18/2024 3:47 PM LEADERSHIP RECRUITER Anesthesia Event [facility] Operating Room [address] [place] [address] Zack Rizvi MD Ridenour, Rebekah Elizabeth, ALFONSO 05/15/2024 Orders Only [facility] Neurosurgery [address] [facility] 6th [place] [address] [place] [address] Geraldine Barbosa NP Intraparenchymal hematoma of brain due to trauma, with unknown loss of consciousness status, unspecified laterality, subsequent encounter (Primary Dx); Fall, initial encounter 05/14/2024 Telephone [facility] ENT [address] [facility] 11th [place] [address] [place] [address] Sybil Burgess, 05/14/2024 7:55 AM LEADERSHIP RECRUITER Ancillary Procedure [facility] Vascular Lab IP [address] [facility] [address] [place] [address] 05/13/2024 Ophth Exam [facility] Ophthalmology [address] [place] [address] 1st [place] [phone] Gladys Manley MD from Last 3 Months Allergies Active Allergy [...] mcg total) by mouth daily 3 Active famotidine (PEPCID) 20 mg tablet Take 1 tablet (20 mg total) by mouth 2 (two) times a day Active metoprolol (LOPRESSOR) 100 mg tablet Take [...] po daily 45 tablet 1 4 Active acetaminophen 500 mg capsule Take 2 capsules (1,000 mg total) by mouth every 6 (six) hours 5 Active polyethylene glycol (MIRALAX) 17 gram/dose bulk powderIndicatio ns:constipation Take 17 g by mouth daily 5 Active senna-docusate (PERICOLACE) 8.6-50 mg Take 2 tablets by mouth 2 (two) times a day 5 Active oxyCODONE (ROXICODONE) 5 mg immediate release tabletIndicatio ns:Pain Take 1 tablet (5 mg total) by mouth every 6 (six) hours as needed for pain 15 tablet 5 Active bumetanide (BUMEX) 2 mg tablet Take 1 tablet (2 mg total) by mouth daily 30 tablet 3 5 Active metOLazone (ZAROXOLYN) 2.5 mg tablet Take 1 tablet (2.5 mg total) by mouth daily 30 tablet 11 5 07/23/19 26 Active furosemide (LASIX) 40 mg tablet Take 1 tablet (40 mg total) by mouth daily 4 07/23/19 25 Discontinu ed(Alterna te therapy) sacubitriL-vals jacinda (Entresto) 24-26 mg tabletIndicatio ns:Chronic HFrEF (heart failure with reduced ejection fraction) ([facility]) TAKE 1 TABLET BY MOUTH IN THE MORNING AND IN THE EVENING 60 tablet 11 5 07/23/19 25 Discontinu ed(Therapy completed) bumetanide (BUMEX) 1 mg tablet Take 1.5 tablets (1.5 mg total) by mouth daily 5 07/23/19 25 Discontinu ed(Reorder ) Active Problems Problem Noted Date Diagnosed Date Mixed type age-related cataract, both eyes 06/30 Assessment & Plan (06/30/2024 1:57 PM CDT): - Patient appears to have a monovision-like refractive state at this time; suspect that OD is moderately myopic (she could read a near card with this eye today) and OS is more plano. While this may be useful in terms of glasses independence, it may be detrimental in terms of stereopsis/depth perception and fall risk. - Discussed options including updating glasses versus eventually pursuing cataract surgery; she wishes to update her glasses with her local eye care provider. Hypercarbia 05/23/2024 Assessment & Plan (05/26/2024 9:50 AM LEADERSHIP RECRUITER): #COPD #TRAVIS, chronic #Chronic hypoxic respiratory failure [...] 05/23/2024 Assessment & Plan (05/27/2024 11:52 AM LEADERSHIP RECRUITER): 05/23 tx out ICU, PT/OT - 05/25: awaiting repeat swallow evaluation, calorie counts - 05/26: Continue Tfs at nightly, Calorie counts. Wean O2 back to home 4L. Not medically ready for discharge. 05/27: Patient is medically stable for discharge, SW/CM updated. Discharge pending facility bed availability Treatment note 05/14 [x] Feeding difficulties 05/22/2024 Assessment & Plan (05/27/2024 11:55 AM LEADERSHIP RECRUITER): SBFT placed by ENT 05/21 TFs commenced [...] NPO, resumed tube feeds, ordered for repeat TOP INSTALLER evaluation. Recommend up in chair for all meals and 1:1 assistance during meals pending TOP INSTALLER evaluation. Discussed with patient and nurse to inform provider of any change in clinical exam or vital signs. 05/25: repeat Swallow- regular diet, regular thin liquids assistance with meals, calorie counts ordered, cycle tube feeding over PM MBS (05/27): swallow mechanism is normal Respiratory distress 05/20/2024 Assessment & Plan (05/27/2024 11:55 AM LEADERSHIP RECRUITER): Transferred to SICU 05/18 ON after respiratory [...] 05/14/2024 Assessment & Plan (05/15/2024 2:15 PM LEADERSHIP RECRUITER): - Orthostatic vital signs (05/14): negative - [...] 05/14/2024 Assessment & Plan (05/14/2024 12:48 PM LEADERSHIP RECRUITER): - Tylenol 1g q6h - Gabapentin 300mg TID - Robaxin 500mg TID PRN - Oxycodone 5mg q4h PRN Closed fracture of distal end of left radius Assessment & Plan (05/27/2024 11:55 AM LEADERSHIP RECRUITER): - Plastics consult - L hand/wrist xr (05/14): Comminuted intra-articular fracture of the left distal radius with mild articular surface depression, Apparent widening of the left scapholunate interval may be seen in setting of ligamentous injury. - NWB LUE, elevate LUE - LUE sugartong splint 05/18 ORIF L radius w PRS (Denise) - PT/OT - Follow up outpatient with PRS (Mandeepls) Hypomagnesemia 05/14/2024 Assessment & Plan (05/25/2024 11:39 AM LEADERSHIP RECRUITER): - Magnesium (05/14): 1.9mg/dL - 05/14: replete Magnesium 2g IV - Magnesium (05/15): 2.0mg/dL - Magnesium (05/20): 2.2mg/dL - Magnesium (05/25): 2.0mg/dL - continue to trend Magnesium Fall, initial encounter 05/13/2024 Assessment & Plan (05/15/2024 10:18 AM LEADERSHIP RECRUITER): Syncopal workup given unclear mechanism (TTE, carotid duplexes, OSVS) - Hgb 9.7 on arrival, monitor on CBC (9.9 in January) - CXR negative for acute injury - CT CAP negative Orbital floor (blow-out) closed fracture 025 Overview (06/30/2024): Ground level fall 04/2024 with right orbital floor fracture, s/p repair with ENT Assessment & Plan (06/30/2024 2:04 PM CDT): - Appears to have full motility OU today but difficult to test alignment accurately/consistently - Discussed possibility of symptomatic strabismus once visual acuity is improved with updated spectacles; patient expressed understanding. Could consider strabismus surgery in that case, once fully healed and stable from orbital fracture repair. - Recommend repeat exam with local eye doctor in 4-6 months Assessment & Plan (05/27/2024 11:52 AM LEADERSHIP RECRUITER): Ophtho c/s ---HOB elevation, open-mouth sneezing, no [...] to be tasked with Dr Lea's team. [phone] Antibiotics Ancef 7day (complete) Intraparenchymal hematoma of brain due to trauma 05/13/2024 Assessment & Plan (05/23/2024 4:06 PM LEADERSHIP RECRUITER): - Neurosurgery consult - Repeat head CT [...] 05/13/2024 Assessment & Plan (05/25/2024 11:36 AM LEADERSHIP RECRUITER): - Hold Xarelto - home diltiazem 180 [...] 05/13/2024 Assessment & Plan (05/24/2024 3:43 PM LEADERSHIP RECRUITER): Grade II diastolic dysfunction -EF 70%, moderate pulmonary hypertension (09/2021) 3/2: resumed home diltiazem. CTM BP and resume home lasix when appropriate. Restless leg syndrome 05/13/2024 Assessment & Plan (05/13/2024 2:32 PM LEADERSHIP RECRUITER): - Continue home ropinrole and pramipexole, gabapentin Mood disorder 05/13/2024 Assessment & Plan (05/13/2024 2:37 PM LEADERSHIP RECRUITER): Continue home zoloft Heart failure with mildly re duced ejection fraction (HFmrEF) 01/15/2024 Assessment & Plan (05/27/2024 11:57 AM LEADERSHIP RECRUITER): #HTN, chronic #HFrEF, chronic #Severe MR #Severe TI #Severe pulmonary hypertension - TTEs as above - Home O2 4L - Follows with [facility] Cardiology - Home Diltiazem, Entresto, Lasix (1/2 dose) and metoprolol continued Persistent atrial fibrillation 02/20/2022 Noncompliance with medicatio n treatment due to intermittent use of medication 12/18/2021 Morbid (severe) obesity due to excess calories 0 07/05/2021 Labile hypertension 03/23/2021 Hypotension due to drugs 03/23/2021 Coronary artery disease invo lving capitan grande band coronary artery of capitan grande band heart without angina pectoris 02/10/2021 Mixed hyperlipidemia 02/10/2021 Chronic obstructive pulmonary disease 02/10/2021 Chronic respiratory failure with hypoxia 021 TRAVIS on CPAP 02/10/2021 Frequent falls 02/10/2021 Resolved Problems Problem Noted Date Diagnosed Date Resolved Date COPD (chronic obstructive pulmonary disease) 05/23/2024 Assessment & Plan (05/13/2024 2:35 PM LEADERSHIP RECRUITER): - home meds: albuterol, ipratopium-albuterol Discharge planning issues 05/13/2024 Assessment & Plan (05/18/2024 2:27 PM LEADERSHIP RECRUITER): - 05/14: orthostatic vital signs pending, syncope workup pending, awaiting PT/OT - 05/15: atrial fibrillation with RVR over PM, ECHO pending. Possible OR on 05/18 05/16 pending OR with Plastics on Saturday and Saturday. Echo completed EF 52% with extensive cardiac anomalies all stable. 05/18: Pending OR with PRS and ENT Treatment plan note [x] Chronic anticoagulation 07/18/2022 043 H/O cardiomyopathy 12/18/2021 Chronic heart failure with [...] on file Legal Sex Female 4:29 PM LEADERSHIP RECRUITER Gender Identity Not on file Sexual Orientation Not on file Last Filed Vital Signs Vital Sign Reading Time Taken Comments Blood Pressure 120/72 07/22/2024 9:18 AM CDT Pulse 81 07/22/2024 9:18 AM CDT Temperature 37.1 C (98.8 F) 05/27/2024 3:28 PM LEADERSHIP RECRUITER Respiratory Rate 20 05/27/2024 11:49 AM LEADERSHIP RECRUITER Oxygen Saturation 92% 07/22/2024 9:18 AM CDT 4L O2 Inhaled Oxygen Concentration - - Weight 102.5 kg (226 lb) 07/22/2024 9:18 AM CDT Height 165.1 cm (5' 5 ) 07/22/2024 9:18 AM CDT Body Mass Index 37.61 07/22/2024 9:18 AM CDT Plan of Treatment Not on file Medical Devices Implanted Type Area Institutional Nutrition Consultant Device Identifier Shelf Expiration Date Model / Serial / Lot Implantech Sheeting Silastic Non Reinforced Alliedsil 0.21s3a6pp Silicone -700-40 - [id number] Implanted:Qty: 1 on 05/19/2024 by Annemaire Lea MD at [facility] Other - see comments Right: Face Implantech 07/03/2028-700- 40 / / Luis Carlos Craniomaxillofacial Craniomaxillofacial Right 3d Large Implant Orbital Medpor Titan 24508 - [id number] Implanted:Qty: 1 on 05/19/2024 by Annemarie Lea MD at [facility] Other - see comments Right: Face Luis Carlos Craniomaxillofacial 08/19/2032 71895 / / Luis Carlos Craniomaxillofacial 1.2mm 4mm Self Drill Axial Stability Lower Profile Screw Bone 56-01631 - [id number] Implanted:Qty: 1 on 05/19/2024 by Annemarie Lea MD at [facility] Other - see comments Right: Face Joshua Craniomaxillofacial 56-1290 4 / / Medartis Inc Plt 2.5 Adaptive Ii Trilock Dist Rad Vol L 10h Narrow T2.0 A-4750.101 - [id number] Implanted:Qty: 1 on 05/18/2024 by Margy Walker MD PhD at [facility] Left: Wrist Medartis Inc A-4750. 101 / / Medartis Inc 2.5mm 18mm Lock Cortical Screw Bone A-5750.18 - [id number] Implanted:Qty: 1 on 05/18/2024 by Margy Walker MD PhD at [facility] Left: Wrist [employer] A-5750. 18 / / [employer] 2.5mm 22mm Lock Cortical Screw Bone A-5750.22 - [id number] Implanted:Qty: 2 on 05/18/2024 by Margy Walker MD PhD at [facility] Left: Wrist [employer] A-5750. 22 / / [employer] 2.5mm 20mm Lock Cortical Screw Bone A-5750.20 - [id number] Implanted:Qty: 3 on 05/18/2024 by Margy Walker MD PhD at [facility] Left: Wrist [employer] Inc A-5750. 20 / / Medartis Inc Aptus 2.5mm 14mm Lock Cortical Screw Bone A-5750.14 - [id number] Implanted:Qty: 2 on 05/18/2024 by Margy Walker MD PhD at [facility] Left: Wrist [employer] A-5750. 14 / / [employer] Aptus 2.5mm 14mm Cortical Screw Bone A-5700.14 - [id number] Implanted:Qty: 1 on 05/18/2024 by Margy Walker MD PhD at [facility] Left: Wrist [employer] Inc A-5700. 14 / / Med[employer] Inc 2.5mm 12mm Lock Cortical Screw Bone A-5750.12 - [id number] Implanted:Qty: 1 on 05/18/2024 by Margy Walker MD PhD at [facility] Left: Wrist [employer] A-5750. 12 / / Explanted Type Area Institutional Nutrition Consultant Device Identifier Shelf Expiration Date Model / Serial / Lot Medartis Inc Aptus 2.5mm 16mm Cortical Screw Bone A-5700.16 - [id number] Explanted:Qty: 1 on 05/18/2024 by Margy Walker MD PhD at [facility] Left: Wrist Medart[employer] Inc A-5700 .16 / / Medartis Inc 2.5mm 18mm Lock Cortical Screw Bone A-5750.18 - [id number] Explanted:Qty: 1 on 05/18/2024 at [facility] Left: Wrist [employer] Inc A-5750 .18 / / Procedures Procedure Name Priority Date/Time Associated Diagnosis Comments XR WRIST LEFT 3 OR MORE VIEWS Schedule Routine, Read Routine (OP Routine) 06/23/2024 12:07 PM CDT Fracture FL MODIFIED BARIUM SWALLOW W VIDEO IP Routine 05/27/2024 10:35 AM LEADERSHIP RECRUITER EGFR Routine 05/26/2024 9:12 PM LEADERSHIP RECRUITER BASIC METABOLIC PANEL Routine 05/26/2024 9:12 PM LEADERSHIP RECRUITER CBC WITHOUT DIFFERENTIAL Routine 025 9:12 PM LEADERSHIP RECRUITER MAGNESIUM Routine 05/26/2024 9:12 PM LEADERSHIP RECRUITER PHOSPHORUS Routine 05/26/2024 9:12 PM LEADERSHIP RECRUITER PEP THERAPY Routine 05/26/2024 12:01 PM LEADERSHIP RECRUITER PEP THERAPY Routine 05/26/2024 6:01 AM LEADERSHIP RECRUITER PEP THERAPY Routine 05/26/2024 12:00 AM LEADERSHIP RECRUITER EGFR Routine 05/25/2024 9:54 PM LEADERSHIP RECRUITER BASIC METABOLIC PANEL Routine 05/25/2024 9:54 PM LEADERSHIP RECRUITER CBC WITHOUT DIFFERENTIAL Routine 025 9:54 PM LEADERSHIP RECRUITER MAGNESIUM Routine 05/25/2024 9:54 PM LEADERSHIP RECRUITER PHOSPHORUS Routine 05/25/2024 9:54 PM LEADERSHIP RECRUITER PEP THERAPY Routine 05/25/2024 6:00 PM LEADERSHIP RECRUITER PEP THERAPY Routine 05/25/2024 12:00 PM LEADERSHIP RECRUITER PEP THERAPY Routine 05/25/2024 6:01 AM LEADERSHIP RECRUITER PEP THERAPY Routine 05/25/2024 12:00 AM LEADERSHIP RECRUITER ECG 12-LEAD STAT 05/24/2024 10:55 PM LEADERSHIP RECRUITER EGFR Routine 05/24/2024 8:54 PM LEADERSHIP RECRUITER BASIC METABOLIC PANEL Routine 05/24/2024 8:54 PM LEADERSHIP RECRUITER CBC WITHOUT DIFFERENTIAL Routine 025 8:54 PM LEADERSHIP RECRUITER MAGNESIUM Routine 05/24/2024 8:54 PM LEADERSHIP RECRUITER PHOSPHORUS Routine 05/24/2024 8:54 PM LEADERSHIP RECRUITER PEP THERAPY Routine 05/24/2024 6:00 PM LEADERSHIP RECRUITER PEP THERAPY Routine 05/24/2024 12:00 PM LEADERSHIP RECRUITER PEP THERAPY Routine 05/24/2024 6:00 AM LEADERSHIP RECRUITER PEP THERAPY Routine 05/24/2024 12:00 AM LEADERSHIP RECRUITER ECG 12-LEAD Routine 05/23/2024 11:24 PM LEADERSHIP RECRUITER EGFR Routine 05/23/2024 8:13 PM LEADERSHIP RECRUITER BASIC METABOLIC PANEL Routine 05/23/2024 8:13 PM LEADERSHIP RECRUITER CBC WITHOUT DIFFERENTIAL Routine 025 8:13 PM LEADERSHIP RECRUITER MAGNESIUM Routine 05/23/2024 8:13 PM LEADERSHIP RECRUITER PHOSPHORUS Routine 05/23/2024 8:13 PM LEADERSHIP RECRUITER PEP THERAPY Routine 05/23/2024 6:00 PM LEADERSHIP RECRUITER PEP THERAPY Routine 05/23/2024 12:00 PM LEADERSHIP RECRUITER CRITICAL CARE Routine 05/23/2024 6:40 AM LEADERSHIP RECRUITER Fall, initial encounter PEP THERAPY Routine 05/23/2024 6:00 AM LEADERSHIP RECRUITER PEP THERAPY Routine 05/23/2024 12:01 AM LEADERSHIP RECRUITER POCT GLUCOSE DEVICE Routine 05/22/2024 11:10 PM LEADERSHIP RECRUITER EGFR Routine 05/22/2024 8:23 PM LEADERSHIP RECRUITER BASIC METABOLIC PANEL Routine 05/22/2024 8:23 PM LEADERSHIP RECRUITER CBC WITHOUT DIFFERENTIAL Routine 025 8:23 PM LEADERSHIP RECRUITER MAGNESIUM Routine 05/22/2024 8:23 PM LEADERSHIP RECRUITER PHOSPHORUS Routine 05/22/2024 8:23 PM LEADERSHIP RECRUITER CRITICAL CARE Routine 05/22/2024 7:32 PM LEADERSHIP RECRUITER Fall, initial encounter POCT GLUCOSE DEVICE Routine 05/22/2024 6 :58 PM LEADERSHIP RECRUITER PEP THERAPY Routine 05/22/2024 6:00 PM LEADERSHIP RECRUITER IRON PROFILE W/ IBC STAT 05/22/2024 3 :44 PM LEADERSHIP RECRUITER POCT GLUCOSE DEVICE Routine 05/22/2024 3 :03 PM LEADERSHIP RECRUITER PEP THERAPY Routine 05/22/2024 12:00 PM LEADERSHIP RECRUITER POCT GLUCOSE DEVICE Routine 05/22/2024 10:55 AM LEADERSHIP RECRUITER POCT GLUCOSE DEVICE Routine 05/22/2024 7 :01 AM LEADERSHIP RECRUITER CRITICAL CARE Routine 05/22/2024 6:44 AM LEADERSHIP RECRUITER Fall, initial encounter PEP THERAPY Routine 05/22/2024 6:01 AM LEADERSHIP RECRUITER BLOOD GAS, ARTERIAL Routine 05/22/2024 4 :31 AM LEADERSHIP RECRUITER POCT GLUCOSE DEVICE Routine 05/22/2024 3 :02 AM LEADERSHIP RECRUITER PEP THERAPY Routine 05/22/2024 12:00 AM LEADERSHIP RECRUITER POCT GLUCOSE DEVICE Routine 05/21/2024 10:54 PM LEADERSHIP RECRUITER EGFR Routine 05/21/2024 8:54 PM LEADERSHIP RECRUITER BLOOD GAS, ARTERIAL Routine 05/21/2024 8 :54 PM LEADERSHIP RECRUITER BASIC METABOLIC PANEL Routine 05/21/2024 8:54 PM LEADERSHIP RECRUITER CBC WITHOUT DIFFERENTIAL Routine 8:54 PM LEADERSHIP RECRUITER MAGNESIUM Routine 05/21/2024 8:54 PM LEADERSHIP RECRUITER PHOSPHORUS Routine 05/21/2024 8:54 PM LEADERSHIP RECRUITER XR CHEST 1 VIEW IP Routine 05/21/2024 8:36 PM LEADERSHIP RECRUITER CRITICAL CARE Routine 05/21/2024 8:00 PM LEADERSHIP RECRUITER Fall, initial encounter POCT GLUCOSE DEVICE Routine 05/21/2024 7 :43 PM LEADERSHIP RECRUITER PEP THERAPY Routine 05/21/2024 6:00 PM LEADERSHIP RECRUITER BLOOD GAS, ARTERIAL STAT 05/21/2024 3 :11 PM LEADERSHIP RECRUITER POCT GLUCOSE DEVICE Routine 05/21/2024 3 :10 PM LEADERSHIP RECRUITER EXTUBATION Routine 05/21/2024 2:27 PM LEADERSHIP RECRUITER PEP THERAPY Routine 05/21/2024 12:00 PM LEADERSHIP RECRUITER POCT GLUCOSE DEVICE Routine 05/21/2024 11:14 AM LEADERSHIP RECRUITER T4, FREE Routine 05/21/2024 9:07 AM LEADERSHIP RECRUITER AMMONIA Routine 05/21/2024 9:07 AM LEADERSHIP RECRUITER THYROID FUNCTION CASCADE Routine 9:07 AM LEADERSHIP RECRUITER TRIGLYCERIDES Timed 05/21/2024 9:07 AM LEADERSHIP RECRUITER POCT GLUCOSE DEVICE Routine 05/21/2024 7 :24 AM LEADERSHIP RECRUITER CRITICAL CARE Routine 05/21/2024 7:02 AM LEADERSHIP RECRUITER Fall, initial encounter PEP THERAPY Routine 05/21/2024 6:01 AM LEADERSHIP RECRUITER POCT GLUCOSE DEVICE Routine 05/21/2024 3 :47 AM LEADERSHIP RECRUITER XR CHEST 1 VIEW ED Urgent/IP Urgent 05/21/2024 12:12 AM LEADERSHIP RECRUITER PEP THERAPY Routine 05/21/2024 12:00 AM LEADERSHIP RECRUITER POCT GLUCOSE DEVICE Routine 05/20/2024 11:29 PM LEADERSHIP RECRUITER XR ABDOMEN AP 1 VIEW ED Urgent/IP Urgent 05/20/2024 8:05 PM LEADERSHIP RECRUITER EGFR Routine 05/20/2024 7:44 PM LEADERSHIP RECRUITER BASIC METABOLIC PANEL Routine 05/20/2024 7:44 PM LEADERSHIP RECRUITER CBC WITHOUT DIFFERENTIAL Routine 025 7:44 PM LEADERSHIP RECRUITER MAGNESIUM Routine 05/20/2024 7:44 PM LEADERSHIP RECRUITER PHOSPHORUS Routine 05/20/2024 7:44 PM LEADERSHIP RECRUITER POCT GLUCOSE DEVICE Routine 05/20/2024 7 :36 PM LEADERSHIP RECRUITER CRITICAL CARE Routine 05/20/2024 6:22 PM LEADERSHIP RECRUITER Fall, initial encounter PEP THERAPY Routine 05/20/2024 6:00 PM LEADERSHIP RECRUITER POCT GLUCOSE DEVICE Routine 05/20/2024 3 :33 PM LEADERSHIP RECRUITER PEP THERAPY Routine 05/20/2024 12:00 PM LEADERSHIP RECRUITER POCT GLUCOSE DEVICE Routine 05/20/2024 11:36 AM LEADERSHIP RECRUITER POCT GLUCOSE DEVICE Routine 05/20/2024 7 :28 AM LEADERSHIP RECRUITER CRITICAL CARE Routine 05/20/2024 7:27 AM LEADERSHIP RECRUITER Fall, initial encounter XR CHEST 1 VIEW ED Urgent/IP Urgent 05/20/2024 6:25 AM LEADERSHIP RECRUITER PEP THERAPY Routine 05/20/2024 6:01 AM LEADERSHIP RECRUITER POCT GLUCOSE DEVICE Routine 05/20/2024 3 [id number]|2024-08-06 12:35:00|2024-08-06 12:34:00|XMS_ITS|BKG DAEMON|External Medical Summaries|[id number]|" Clinical Summary Created on: August 06, 2024 Ping Waller : 1945 Sex: Female Author Organization [facility] Address [address] [place] [address] Care Team Providers Care Track Rider Name Role Phone Meagan Yusuf MD Primary Care Provider + Annemarie Lea MD Unavailable [phone] Margy Walker MD PhD Unavailable [phone] Geraldine Barbosa NP Unavailable [phone] Allergies Active Allergy Reactions Criticality Noted Date [...] mcg total) by mouth daily 3 Active famotidine (PEPCID) 20 mg tablet Take 1 tablet (20 mg total) by mouth 2 (two) times a day Active metoprolol (LOPRESSOR) 100 mg tablet Take [...] po daily 45 tablet 1 4 Active acetaminophen 500 mg capsule Take 2 capsules (1,000 mg total) by mouth every 6 (six) hours 5 Active polyethylene glycol (MIRALAX) 17 gram/dose bulk powderIndicatio ns:constipation Take 17 g by mouth daily 5 Active senna-docusate (PERICOLACE) 8.6-50 mg Take 2 tablets by mouth 2 (two) times a day 5 Active oxyCODONE (ROXICODONE) 5 mg immediate release tabletIndicatio ns:Pain Take 1 tablet (5 mg total) by mouth every 6 (six) hours as needed for pain 15 tablet 5 Active bumetanide (BUMEX) 2 mg tablet Take 1 tablet (2 mg total) by mouth daily 30 tablet 3 5 Active metOLazone (ZAROXOLYN) 2.5 mg tablet Take 1 tablet (2.5 mg total) by mouth daily 30 tablet 11 5 07/23/19 26 Active furosemide (LASIX) 40 mg tablet Take 1 tablet (40 mg total) by mouth daily 4 07/23/19 25 Discontinu ed(Alterna te therapy) sacubitriL-vals jacinda (Entresto) 24-26 mg tabletIndicatio ns:Chronic HFrEF (heart failure with reduced ejection fraction) (HCC) TAKE 1 TABLET BY MOUTH IN THE MORNING AND IN THE EVENING 60 tablet 11 5 07/23/19 25 Discontinu ed(Therapy completed) bumetanide (BUMEX) 1 mg tablet Take 1.5 tablets (1.5 mg total) by mouth daily 5 07/23/19 25 Discontinu ed(Reorder ) Active Problems Problem Noted Date Diagnosed Date Mixed type age-related cataract, both eyes 06/30 Assessment & Plan (06/30/2024 1:57 PM CDT): - Patient appears to have a monovision-like refractive state at this time; suspect that OD is moderately myopic (she could read a near card with this eye today) and OS is more plano. While this may be useful in terms of glasses independence, it may be detrimental in terms of stereopsis/depth perception and fall risk. - Discussed options including updating glasses versus eventually pursuing cataract surgery; she wishes to update her glasses with her local eye care provider. Hypercarbia 05/23/2024 Assessment & Plan (05/26/2024 9:50 AM LEADERSHIP RECRUITER): #COPD #TRAVIS, chronic #Chronic hypoxic respiratory failure [...] 05/23/2024 Assessment & Plan (05/27/2024 11:52 AM LEADERSHIP RECRUITER): 05/23 tx out ICU, PT/OT - 05/25: awaiting repeat swallow evaluation, calorie counts - 05/26: Continue Tfs at nightly, Calorie counts. Wean O2 back to home 4L. Not medically ready for discharge. 05/27: Patient is medically stable for discharge, SW/CM updated. Discharge pending facility bed availability Treatment note 05/14 [x] Feeding difficulties 05/22/2024 Assessment & Plan (05/27/2024 11:55 AM LEADERSHIP RECRUITER): SBFT placed by ENT 05/21 TFs commenced [...] NPO, resumed tube feeds, ordered for repeat TOP INSTALLER evaluation. Recommend up in chair for all meals and 1:1 assistance during meals pending TOP INSTALLER evaluation. Discussed with patient and nurse to inform provider of any change in clinical exam or vital signs. 05/25: repeat Swallow- regular diet, regular thin liquids assistance with meals, calorie counts ordered, cycle tube feeding over PM MBS (05/27): swallow mechanism is normal Respiratory distress 05/20/2024 Assessment & Plan (05/27/2024 11:55 AM LEADERSHIP RECRUITER): Transferred to SICU 05/18 ON after respiratory [...] 05/14/2024 Assessment & Plan (05/15/2024 2:15 PM LEADERSHIP RECRUITER): - Orthostatic vital signs (05/14): negative - [...] 05/14/2024 Assessment & Plan (05/14/2024 12:48 PM LEADERSHIP RECRUITER): - Tylenol 1g q6h - Gabapentin 300mg TID - Robaxin 500mg TID PRN - Oxycodone 5mg q4h PRN Closed fracture of distal end of left radius Assessment & Plan (05/27/2024 11:55 AM LEADERSHIP RECRUITER): - Plastics consult - L hand/wrist xr [...] 05/14/2024 Assessment & Plan (05/25/2024 11:39 AM LEADERSHIP RECRUITER): - Magnesium (05/14): 1.9mg/dL - 05/14: replete Magnesium 2g IV - Magnesium (05/15): 2.0mg/dL - Magnesium (05/20): 2.2mg/dL - Magnesium (05/25): 2.0mg/dL - continue to trend Magnesium Fall, initial encounter 05/13/2024 Assessment & Plan (05/15/2024 10:18 AM LEADERSHIP RECRUITER): Syncopal workup given unclear mechanism (TTE, carotid duplexes, OSVS) - Hgb 9.7 on arrival, monitor on CBC (9.9 in January) - CXR negative for acute injury - CT CAP negative Orbital floor (blow-out) closed fracture 025 Overview (06/30/2024): Ground level fall 04/2024 with right orbital floor fracture, s/p repair with ENT Assessment & Plan (06/30/2024 2:04 PM CDT): - Appears to have full motility OU today but difficult to test alignment accurately/consistently - Discussed possibility of symptomatic strabismus once visual acuity is improved with updated spectacles; patient expressed understanding. Could consider strabismus surgery in that case, once fully healed and stable from orbital fracture repair. - Recommend repeat exam with local eye doctor in 4-6 months Assessment & Plan (05/27/2024 11:52 AM LEADERSHIP RECRUITER): Ophtho c/s ---HOB elevation, open-mouth sneezing, no [...] to be tasked with Dr Lea's team. [phone] Antibiotics Ancef 7day (complete) Intraparenchymal hematoma of brain due to trauma 05/13/2024 Assessment & Plan (05/23/2024 4:06 PM LEADERSHIP RECRUITER): - Neurosurgery consult - Repeat head CT [...] 05/13/2024 Assessment & Plan (05/25/2024 11:36 AM LEADERSHIP RECRUITER): - Hold Xarelto - home diltiazem 180 [...] 05/13/2024 Assessment & Plan (05/24/2024 3:43 PM LEADERSHIP RECRUITER): Grade II diastolic dysfunction -EF 70%, moderate pulmonary hypertension (09/2021) 3: resumed home diltiazem. CTM BP and resume home lasix when appropriate. Restless leg syndrome 05/13/2024 Assessment & Plan (05/13/2024 2:32 PM LEADERSHIP RECRUITER): - Continue home ropinrole and pramipexole, gabapentin Mood disorder 05/13/2024 Assessment & Plan (05/13/2024 2:37 PM LEADERSHIP RECRUITER): Continue home zoloft Heart failure with mildly re duced ejection fraction (HFmrEF) 01/15/2024 Assessment & Plan (05/27/2024 11:57 AM LEADERSHIP RECRUITER): #HTN, chronic #HFrEF, chronic #Severe MR #Severe TI #Severe pulmonary hypertension - TTEs as above - Home O2 4L - Follows with [facility] Cardiology - Home Diltiazem, Entresto, Lasix (1/2 dose) and metoprolol continued Persistent atrial fibrillation 02/20/2022 Noncompliance with medicatio n treatment due to intermittent use of medication 12/18/2021 Morbid (severe) obesity due to excess calories 0 07/05/2021 Labile hypertension 03/23/2021 Hypotension due to drugs 03/23/2021 Coronary artery disease invo lving capitan grande band coronary artery of capitan grande band heart without angina pectoris 02/10/2021 Mixed hyperlipidemia 02/10/2021 Chronic obstructive pulmonary disease 02/10/2021 Chronic respiratory failure with hypoxia 021 TRAVIS on CPAP 02/10/2021 Frequent falls 02/10/2021 Resolved Problems Problem Noted Date Diagnosed Date Resolved Date COPD (chronic obstructive pulmonary disease) 05/23/2024 Assessment & Plan (05/13/2024 2:35 PM LEADERSHIP RECRUITER): - home meds: albuterol, ipratopium-albuterol Discharge planning issues 05/13/2024 Assessment & Plan (05/18/2024 2:27 PM LEADERSHIP RECRUITER): - 05/14: orthostatic vital signs pending, syncope workup pending, awaiting PT/OT - 05/15: atrial fibrillation with RVR over PM, ECHO pending. Possible OR on 05/18 05/16 pending OR with Plastics on Saturday and Saturday. Echo completed EF 52% with extensive cardiac anomalies all stable. 05/18: Pending OR with PRS and ENT Treatment plan note [x] Chronic anticoagulation 07/18/202206/25 H/O cardiomyopathy 12/18/2021 Chronic heart failure with p reserved ejection fraction 02/10/2021 01/15/2024 Encounters Date Type Department Care Team Description 07/22/2024 9:30 AM CDT Office Visit [facility] Cardiology at [address] [place] [address] Radha Jimenez MD Nonrheumatic mitral valve regurgitation (Primary Dx); Nonrheumatic tricuspid valve regurgitation; Mixed hyperlipidemia; Labile hypertension; Coronary artery disease involving capitan grande band coronary artery of capitan grande band heart without angina pectoris; Frequent falls; Persistent atrial fibrillation (HCC); Chronic anticoagulation; Chronic diastolic heart failure (HCC) 06/30/2024 10:00 AM CDT Office Visit [facility] Ophthalmology [address] [place] [phone] Leeann Horvath MD Orbital floor (blow-out) closed fracture (HCC) (Primary Dx); Mixed type age-related cataract, both eyes 06/23/2024 11:59 AM CDT - 06/23/2024 11:59 PM CDT Hospital Encounter [facility] [address] [place] [address] Discharge Disposition: Discharge to home or self care 06/23/2024 11:00 AM CDT Office Visit [facility] Surgery [address] [facility] 6th [place] [phone] Margy Walker MD PhD Fracture (Primary Dx); Other closed intra-articular fracture of distal end of left radius, initial encounter 06/15/2024 Telephone [facility] Surgery [address] [facility] 6th [place] [phone] Erica Velarde 06/09/2024 Telephone [facility] Scheduling [address] [place] [address] Nu Milian MD 05/31/2024 Telephone [facility] Ophthalmology [address] [place] [address] 1st [place] [phone] Leeann Horvath MD 05/28/2024 Documentation [facility] Surgeon [address] [place] [address] oLrena Beck, ALFONSO 05/27/2024 Telephone [facility] ENT [address] [facility] 11th [place] [address] [place] [phone] Sybil Burgess, MS 05/19/2024 7:51 AM LEADERSHIP RECRUITER Anesthesia Event [facility] Operating Room [address] [place] [phone] Mag Villatoro MD Ridenour, Rebekah Elizabeth, NP 05/19/2024 7:30 AM LEADERSHIP RECRUITER - 05/19/2024 10:50 AM LEADERSHIP RECRUITER Surgery [facility] Operating Room [address] [place] [address] Annemarie Lea MD OPEN REDUCTION INTERNAL FIXATION - ORBITAL FRACTURE 05/18/2024 3:50 PM LEADERSHIP RECRUITER - 05/18/2024 6:30 PM LEADERSHIP RECRUITER Surgery [facility] Operating Room [address] [place] [address] Margy Walker MD PhD OPEN REDUCTION INTERNAL FIXATION RADIUS - DISTAL 05/18/2024 3:47 PM LEADERSHIP RECRUITER Anesthesia Event [facility] Operating Room [address] [place] [address] Zack Rizvi MD Ridenour, Malorie Gibbons NP 05/15/2024 Orders Only [facility] Neurosurgery [address] [facility] 6th [place] [address] [place] [address] Geraldine Barbosa NP Intraparenchymal hematoma of brain due to trauma, with unknown loss of consciousness status, unspecified laterality, subsequent encounter (Primary Dx); Fall, initial encounter 05/14/2024 7:55 AM LEADERSHIP RECRUITER Ancillary Procedure [facility] Vascular Lab IP [address] [facility] [address] [place] [address] 05/14/2024 [facility] ENT [address] [facility] 11th [place] [address] [place] [address] Sybil Burgess, 05/13/2024 12:53 AM LEADERSHIP RECRUITER - 05/27/2024 7:22 PM LEADERSHIP RECRUITER Hospital Encounter [address] [address] Edwige Strickland MD Vallar, Kelly Jean, MD Smith, MD Karli Cuenca Alexander, MD Fall, initial encounter (Primary Dx); Closed fracture of right orbital floor, initial encounter (HCC); Frequent falls; Other closed intra-articular fracture of distal end of left radius, initial encounter Discharge Disposition: Discharge to an IP Rehab facility 05/13/2024 Ophth Exam [facility] Ophthalmology [address] [facility] 1st [place] [address] Gladys Manley MD from Last 3 Months Immunizations Immunization Administration Dates Next Due Tdap 05/13/2024 Surgical History Surgery Date Site/Laterality Comments HYSTERECTOMY TOTAL SHOULDER REPLACEMENT Right HIP ARTHROPLASTY Medical History Medical History Date Comments [place], old CHF (congestive heart failure) (HCC) Alcohol [...] on file Legal Sex Female 4:29 PM LEADERSHIP RECRUITER Gender Identity Not on file Sexual Orientation Not on file Obstetrics History Last Filed Vital Signs Vital Sign Reading Time Taken Comments Blood Pressure 120/72 07/22/2024 9:18 AM CDT Pulse 81 07/22/2024 9:18 AM CDT Temperature 37.1 C (98.8 F) 05/27/2024 3:28 PM LEADERSHIP RECRUITER Respiratory Rate 20 05/27/2024 11:49 AM LEADERSHIP RECRUITER Oxygen Saturation 92% 07/22/2024 9:18 AM CDT 4L O2 Inhaled Oxygen Concentration - - Weight 102.5 kg (226 lb) 07/22/2024 9:18 AM CDT Height 165.1 cm (5' 5 ) 07/22/2024 9:18 AM CDT Body Mass Index 37.61 07/22/2024 9:18 AM CDT Plan of Treatment Health Maintenance Due Date Last Done Comments Depression Screening 1945 Hepatitis C Screening 1945 Osteoporosis Screening-Bone Density Scan 1945 Hepatitis B Screening 12/21/1965 Well Visit 65+ 12/21/2012 Zoster Vaccine (2 of 3) 04/04/2015 02/07/2015 Covid-19 Vaccine (3 - 2023-2 5 season) 2023 06/15/2020, 05/24/2020 Influenza Vaccine (Season Ended) 2024 12/15/2019, 03/05/2019, 01/28/2018, Additional history exists Fall Risk Assessment 05/27/2025 05/27/2024 DTaP/Tdap/Td Vaccine (3 - Td or Tdap) 05/13/2034 05/13/2024, 12/15/2019 Pneumococcal vaccine 65+ Completed 05/08/2018, 12/24 Medical Devices Implanted Type Area Institutional Nutrition Consultant Device Identifier Shelf Expiration Date Model / Serial / Lot Implantech Sheeting Silastic Non Reinforced Alliedsil [id number] Silicone 23-700-40 - [id number] Implanted:Qty: 1 on 05/19/2024 by Annemarie Lea MD at [facility] Other - see comments Right: Face Implantech 07/03/2028 23-700- 40 / / Luis Carlos Craniomaxillofacial Craniomaxillofacial Right 3d Large Implant Orbital Medpor Titan [id number] - [id number] Implanted:Qty: 1 on 05/19/2024 by Annemarie Lea MD at [facility] Other - see comments Right: Face Joshua Craniomaxillofacial 08/19/2032 03116 / / Joshua Craniomaxillofacial 1.2mm 4mm Self Drill Axial Stability Lower Profile Screw Bone 56-66505 - [id number] Implanted:Qty: 1 on 05/19/2024 by Annemarie Lea MD at [facility] Other - see comments Right: Face Joshua Craniomaxillofacial 56-1290 4 / / Medartis Inc Plt 2.5 Adaptive Ii Trilock Dist Rad Vol L 10h Narrow T2.0 A-4750.101 - [id number] Implanted:Qty: 1 on 05/18/2024 by Margy Walker MD PhD at [facility] Left: Wrist Medartis Inc A-4750. 101 / / Medartis Inc 2.5mm 18mm Lock Cortical Screw Bone A-5750.18 - [id number] Implanted:Qty: 1 on 05/18/2024 by Margy Walker MD PhD at [facility] Left: Wrist [employer] Inc A-5750. 18 / / Med[employer] 2.5mm 22mm Lock Cortical Screw Bone A-5750.22 - [id number] Implanted:Qty: 2 on 05/18/2024 by Margy Walker MD PhD at [facility] Left: Wrist [employer] A-5750. 22 / / Med[employer] 2.5mm 20mm Lock Cortical Screw Bone A-5750.20 - [id number] Implanted:Qty: 3 on 05/18/2024 by Margy Walker MD PhD at [facility] Left: Wrist [employer] Inc A-5750. 20 / / Medartis Inc Aptus 2.5mm 14mm Lock Cortical Screw Bone A-5750.14 - [id number] Implanted:Qty: 2 on 05/18/2024 by Margy Walker MD PhD at [facility] Left: Wrist [employer] A-5750. 14 / / [employer] Aptus 2.5mm 14mm Cortical Screw Bone A-5700.14 - [id number] Implanted:Qty: 1 on 05/18/2024 by Margy Walker MD PhD at [facility] Left: Wrist [employer] Inc A-5700. 14 / / Medart[employer] Inc 2.5mm 12mm Lock Cortical Screw Bone A-5750.12 - [id number] Implanted:Qty: 1 on 05/18/2024 by Margy Walker MD PhD at [facility] Left: Wrist [employer] Inc A-5750. 12 / / Explanted Type Area Institutional Nutrition Consultant Device Identifier Shelf Expiration Date Model / Serial / Lot Medartis Inc Aptus 2.5mm 16mm Cortical Screw Bone A-5700.16 - [id number] Explanted:Qty: 1 on 05/18/2024 by Margy Walker MD PhD at [facility] Left: Wrist Medart[employer] Inc A-5700 .16 / / Medartis Inc 2.5mm 18mm Lock Cortical Screw Bone A-5750.18 - [id number] Explanted:Qty: 1 on 05/18/2024 at [facility] Left: Wrist Med[employer] Inc A-5750 .18 / / Procedures Procedure Name Priority Date/Time Associated Diagnosis Comments XR WRIST LEFT 3 OR MORE VIEWS Schedule Routine, Read Routine (OP Routine) 06/23/2024 12:07 PM CDT Fracture FL MODIFIED BARIUM SWALLOW W VIDEO IP Routine 05/27/2024 10:35 AM LEADERSHIP RECRUITER EGFR Routine 05/26/2024 9:12 PM LEADERSHIP RECRUITER BASIC METABOLIC PANEL Routine 05/26/2024 9:12 PM LEADERSHIP RECRUITER CBC WITHOUT DIFFERENTIAL Routine 025 9:12 PM LEADERSHIP RECRUITER MAGNESIUM Routine 05/26/2024 9:12 PM LEADERSHIP RECRUITER PHOSPHORUS Routine 05/26/2024 9:12 PM LEADERSHIP RECRUITER PEP THERAPY Routine 05/26/2024 12:01 PM LEADERSHIP RECRUITER PEP THERAPY Routine 05/26/2024 6:01 AM LEADERSHIP RECRUITER PEP THERAPY Routine 05/26/2024 12:00 AM LEADERSHIP RECRUITER EGFR Routine 05/25/2024 9:54 PM LEADERSHIP RECRUITER BASIC METABOLIC PANEL Routine 05/25/2024 9:54 PM LEADERSHIP RECRUITER CBC WITHOUT DIFFERENTIAL Routine 025 9:54 PM LEADERSHIP RECRUITER MAGNESIUM Routine 05/25/2024 9:54 PM LEADERSHIP RECRUITER PHOSPHORUS Routine 05/25/2024 9:54 PM LEADERSHIP RECRUITER PEP THERAPY Routine 05/25/2024 6:00 PM LEADERSHIP RECRUITER PEP THERAPY Routine 05/25/2024 12:00 PM LEADERSHIP RECRUITER PEP THERAPY Routine 05/25/2024 6:01 AM LEADERSHIP RECRUITER PEP THERAPY Routine 05/25/2024 12:00 AM LEADERSHIP RECRUITER ECG 12-LEAD STAT 05/24/2024 10:55 PM LEADERSHIP RECRUITER EGFR Routine 05/24/2024 8:54 PM LEADERSHIP RECRUITER BASIC METABOLIC PANEL Routine 05/24/2024 8:54 PM LEADERSHIP RECRUITER CBC WITHOUT DIFFERENTIAL Routine 025 8:54 PM LEADERSHIP RECRUITER MAGNESIUM Routine 05/24/2024 8:54 PM LEADERSHIP RECRUITER PHOSPHORUS Routine 05/24/2024 8:54 PM LEADERSHIP RECRUITER PEP THERAPY Routine 05/24/2024 6:00 PM LEADERSHIP RECRUITER PEP THERAPY Routine 05/24/2024 12:00 PM LEADERSHIP RECRUITER PEP THERAPY Routine 05/24/2024 6:00 AM LEADERSHIP RECRUITER PEP THERAPY Routine 05/24/2024 12:00 AM LEADERSHIP RECRUITER ECG 12-LEAD Routine 05/23/2024 11:24 PM LEADERSHIP RECRUITER EGFR Routine 05/23/2024 8:13 PM LEADERSHIP RECRUITER BASIC METABOLIC PANEL Routine 05/23/2024 8:13 PM LEADERSHIP RECRUITER CBC WITHOUT DIFFERENTIAL Routine 025 8:13 PM LEADERSHIP RECRUITER MAGNESIUM Routine 05/23/2024 8:13 PM LEADERSHIP RECRUITER PHOSPHORUS Routine 05/23/2024 8:13 PM LEADERSHIP RECRUITER PEP THERAPY Routine 05/23/2024 6:00 PM LEADERSHIP RECRUITER PEP THERAPY Routine 05/23/2024 12:00 PM LEADERSHIP RECRUITER CRITICAL CARE Routine 05/23/2024 6:40 AM LEADERSHIP RECRUITER Fall, initial encounter PEP THERAPY Routine 05/23/2024 6:00 AM LEADERSHIP RECRUITER PEP THERAPY Routine 05/23/2024 12:01 AM LEADERSHIP RECRUITER POCT GLUCOSE DEVICE Routine 05/22/2024 11:10 PM LEADERSHIP RECRUITER EGFR Routine 05/22/2024 8:23 PM LEADERSHIP RECRUITER BASIC METABOLIC PANEL Routine 05/22/2024 8:23 PM LEADERSHIP RECRUITER CBC WITHOUT DIFFERENTIAL Routine 025 8:23 PM LEADERSHIP RECRUITER MAGNESIUM Routine 05/22/2024 8:23 PM LEADERSHIP RECRUITER PHOSPHORUS Routine 05/22/2024 8:23 PM LEADERSHIP RECRUITER CRITICAL CARE Routine 05/22/2024 7:32 PM LEADERSHIP RECRUITER Fall, initial encounter POCT GLUCOSE DEVICE Routine 05/22/2024 6 :58 PM LEADERSHIP RECRUITER PEP THERAPY Routine 05/22/2024 6:00 PM LEADERSHIP RECRUITER IRON PROFILE W/ IBC STAT 05/22/2024 3 :44 PM LEADERSHIP RECRUITER POCT GLUCOSE DEVICE Routine 05/22/2024 3 :03 PM LEADERSHIP RECRUITER PEP THERAPY Routine 05/22/2024 12:00 PM LEADERSHIP RECRUITER POCT GLUCOSE DEVICE Routine 05/22/2024 10:55 AM LEADERSHIP RECRUITER POCT GLUCOSE DEVICE Routine 05/22/2024 7 :01 AM LEADERSHIP RECRUITER CRITICAL CARE Routine 05/22/2024 6:44 AM LEADERSHIP RECRUITER Fall, initial encounter PEP THERAPY Routine 05/22/2024 6:01 AM LEADERSHIP RECRUITER BLOOD GAS, ARTERIAL Routine 05/22/2024 4 :31 AM LEADERSHIP RECRUITER POCT GLUCOSE DEVICE Routine 05/22/2024 3 :02 AM LEADERSHIP RECRUITER PEP THERAPY Routine 05/22/2024 12:00 AM LEADERSHIP RECRUITER POCT GLUCOSE DEVICE Routine 05/21/2024 10:54 PM LEADERSHIP RECRUITER EGFR Routine 05/21/2024 8:54 PM LEADERSHIP RECRUITER BLOOD GAS, ARTERIAL Routine 05/21/2024 8:54 PM LEADERSHIP RECRUITER BASIC METABOLIC PANEL Routine 05/21/2024 8:54 PM LEADERSHIP RECRUITER CBC WITHOUT DIFFERENTIAL Routine 025 8:54 PM LEADERSHIP RECRUITER MAGNESIUM Routine 05/21/2024 8:54 PM LEADERSHIP RECRUITER PHOSPHORUS Routine 05/21/2024 8:54 PM LEADERSHIP RECRUITER XR CHEST 1 VIEW IP Routine 05/21/2024 8:36 PM LEADERSHIP RECRUITER CRITICAL CARE Routine 05/21/2024 8:00 PM LEADERSHIP RECRUITER Fall, initial encounter POCT GLUCOSE DEVICE Routine 05/21/2024 7 :43 PM LEADERSHIP RECRUITER PEP THERAPY Routine 05/21/2024 6:00 PM LEADERSHIP RECRUITER BLOOD GAS, ARTERIAL STAT 05/21/2024 3 :11 PM LEADERSHIP RECRUITER POCT GLUCOSE DEVICE Routine 05/21/2024 3 :10 PM LEADERSHIP RECRUITER EXTUBATION Routine 05/21/2024 2:27 PM LEADERSHIP RECRUITER PEP THERAPY Routine 05/21/2024 12:00 PM LEADERSHIP RECRUITER POCT GLUCOSE DEVICE Routine 05/21/2024 11:14 AM LEADERSHIP RECRUITER T4, FREE Routine 05/21/2024 9:07 AM LEADERSHIP RECRUITER AMMONIA Routine 05/21/2024 9:07 AM LEADERSHIP RECRUITER THYROID FUNCTION CASCADE Routine 025 9:07 AM LEADERSHIP RECRUITER TRIGLYCERIDES Timed 05/21/2024 9:07 AM LEADERSHIP RECRUITER POCT GLUCOSE DEVICE Routine 05/21/2024 7 :24 AM LEADERSHIP RECRUITER CRITICAL CARE Routine 05/21/2024 7:02 AM LEADERSHIP RECRUITER Fall, initial encounter PEP THERAPY Routine 05/21/2024 6:01 AM LEADERSHIP RECRUITER POCT GLUCOSE DEVICE Routine 05/21/2024 3 :47 AM LEADERSHIP RECRUITER XR CHEST 1 VIEW ED Urgent/IP Urgent 05/21/2024 12:12 AM LEADERSHIP RECRUITER PEP THERAPY Routine 05/21/2024 12:00 AM LEADERSHIP RECRUITER
--- OUTSIDE RECORDS SUMMARY | 2024-08-06 12:34 | XMS_ITS | Encounter Summary ---
Author Organization [employer] Address 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
--- OUTSIDE RECORDS SUMMARY | 2024-08-06 12:34 | XMS_ITS | Encounter Summary ---
Author Organization [facility] Address 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
--- OUTSIDE RECORDS SUMMARY | 2024-08-06 12:35 | XMS_ITS | Data Portability ---
Author Organization [place] - [facility] OFFICE Address [address] [place] [address] Care Team Providers Care Senior Contracts Manager Name Role Phone JAMILA PAVON Primary Care Provider [phone] Assessment Encounter Date Assessment Date Assessment LastModified by Organization Details LastModified Time 10/26/2020 10/26/2020 Discussed with patient findings, diagnosis, and prognosis. Discussed evaluation and treatment options including risks and benefits with patient, and patient expressed understanding. The following interventions were recommended: heart healthy low-fat, low-sodium diet, begin cardiac rehabilitation program,maintain appropriate weight, continue current medications, and medical follow-up as noted. [email or web address] Not available 10/26/2020 14:30:27 11/09/2020 11/09/2020 Discussed [...] Not available 17:10:42 electrocard iogram 2020 021 [email or web address] Not available 14:35:30 Medication Orders rosuvastati n 40 mg tablet 2020 021 [id number], [address], [place], [id number], 12:58:37 lisinopril 5 mg tablet 2020 [facility] #70676, [address], [place], [id number], 12:58:39 spironolact one 25 mg tablet 2020 [facility] #74017, [address], [place], [id number], 12:58:59 aspirin 81 mg tablet,lamont yed release 2020 [facility] #08516, [address] [place] [address], [id number], 14:35:37 clopidogrel 75 mg tablet 2020 [facility] #09502, [address] [place] [address], [id number], 14:35:38 rosuvastati n 20 mg tablet 2020 [facility] #49324, [address], [place], [id number], 14:35:39 metoprolol succinate ER 25 mg tablet,exte nded release 24 hr 2020 [facility] #46069, [address] [place] [address], [id number], 14:35:39 potassium chloride ER 20 mEq tablet,exte nded release 2020 [facility] #75183, [facility] [address], [id number], 14:35:37 furosemide 40 mg tablet 2020 021 [facility]59921, [address], [place], [id number], 14:35:38 Patient TargetsNo targets recorded. Patient Instructions Encounter Date Encounter Id Patient Instructions Last Modified By Organization Details Last Modified Time 10/26/2020 [id number] high cholesterol : care instructions [email or web address] Not available 10/26/2020 14:35:29 When You Want to Lose Weight: Care Instructions [email or web address] Not available 10/26/2020 14:35:30 sleep apnea: car e instructions [email or web address] Not available 10/26/2020 14:35:30 high blood pressure: care instructions [email or web address] Not available 10/26/2020 14:35:30 learning about high blood pressure [email or web address] Not available 10/26/2020 14:35:30 11/09/2020 [id number] high cholesterol : care instructions [email or web address] Not available 11/09/2020 12:58:27 When You Want to Lose Weight: Care Instructions [email or web address] Not available 11/09/2020 12:58:27 sleep apnea: car e instructions [email or web address] Not available 11/09/2020 12:58:27 high blood pressure: care instructions [email or web address] Not available 11/09/2020 12:58:27 learning about high blood pressure [email or web address] Not available 11/09/2020 12:58:27 Reason for Referral None Reported. Results Created Date Observation Date Name Description Value Unit Range Abnormal Flag Note LastModifiedBy Organization Detail LastModifiedTime 10/26/19 21 elect low del castillogr am No observ ation record ed. [email or web address] Sharif Bustamante MD [address], [place], [address], 10/26/2020 14:26:29 10/28/19 21 10/01/2020 US, doppl [...] ation record ed. елена Bustamante MD [address], [place], [address], 12/05/2020 17:10:42 11/17/19 21 10/26/2020 elect rocar diogr am No observ ation record ed. Not Available 11/18 13:56:02 Result Notes Documentation Provider Name and Address Organization Details Recorded Time Lipid Panel, Blood : 10/28/20:Na 137,K 3.9,Cl 102,Co2 30,Glu 94,Bun 18,Cr 0.7,AST 33,ALT 11. 10/28/20:TC 190,TG 79,HDL 87,LDL 83. 10/28/20:WBC 5.4,RBC 3.83,HGB 11.4,HCT 36.7,PLT 108. Dominic Rodriguez [place], [place] - [facility] 11/14/2020 16:16:49 Lipid Panel, Blood : 10/28/20:Na 137,K 3.9,CL 102,CO2 30,Glu 94,Bun 18,Cr 0.7,AST 33,ALT 11. 10/28/20:TC 190,TG 79,HDL 87,LDL pending. Dominic beyer, [facility] 01/24/2021 13:55:17 Problems Name Problem SNOMED Code Status Onset Date Resolution Date Notes Provider Name and Address Organization Details Recorded Time Heart failure with reduced ejection fraction 801506027 Active 2020 Desmond beyer, [place] - [facility] 13:41:26 Essential hypertension 98682648 Active 2020 Desmond beyer, [place] - [facility] 13:48:17 Hyperlipidemia 20412737 Active 2020 Desmond beyer, [place] - [facility] 13:48:29 Obstructive sleep apnea syndrome 66399483 Active 2020 Desmond beyer, [place] - [facility] 13:48:37 Subsequent non-ST segment elevation myocardial infarction 753633790 Active 2020 Desmond beyer, [place] - [facility] 13:59:24 Obesity 714783092 Active 2020 Desmond beyer, [place] - [facility] 14:26:10 Problem Notes None recorded. Procedures Surgical History None recorded. Imaging Results Imaging Date Name Status LastModified by Organization Details LastModified Time 10/25/2020 electrocardiogram completed [email or web address] Sharif Basilio MD [address], [place], [address], 10/26/2020 14:26:29 10/01/2020 US, doppler, venous completed [email or web address] Infor mation not available 10/27/2020 11:43:01 09/30/2020 US, echocardiogram completed Inform ation not available 10/27/2020 12:19:15 10/01/2020 electrocardiogram completed [facility] Informa tion not available 10/27/2020 12:55:58 09/30/2020 XR, chest, 1 view completed [facility] Informa tion not available 10/27/2020 12:59:31 10/03/2020 catheter placement in coronary artery(s) for coronary angiography; with left heart catheterization including intraprocedural injection(s) for left ventriculography (PROC) completed [email or web address] Information not available 03/10/2021 13:24:48 11/07/2020 electrocardiogram completed naomy Basilio MD [address], [place], [address], 12/05/2020 17:10:42 10/26/2020 electrocardiogram completed [email or web address] Informa [...] Not Available Not Available [employer] Gerard 2 Mcgrath active Not Available Not Available Not Available Vitals Date Recorded Body height Body mass index (BMI) Body weight Heart rate Respiratory rate Oxygen saturation Oxygen saturation in Arterial blood by Pulse oximetry Systolic blood pressure Diastolic blood pressure Provider Name and Address Organization Details Last Updated DateTime 1 162.56 cm 42.6 kg/m2 721248. 91 g 70 /min 16 /min 92 % 92 % 114 mm[Hg] 82 mm[Hg] Jamila Britton [facility] 1 13:04:20 Date Recorded Body height Body mass index (BMI) Body weight Heart rate Oxygen saturation Oxygen saturation in Arterial blood by Pulse oximetry Inhaled oxygen flow rate Systolic blood pressure Diastolic blood pressure Provider Name and Address Organization Details Last Updated DateTime 1 162.56 cm 43.1 kg/m2 944462. 68 g 75 /min 97 % 97 % 4 L/min 118 mm[Hg] 84 mm[Hg] DAVID [place] - [facility] 11:48:40 Social History None recorded. Functional Status Question Answer Note LastModified by Organization D etails LastModified Time What is your level of alcohol consumption? Moderate [email or web address] Information not available 10/26/2020 Mental Status None recorded. Family History Nothing Reported Notes:No premature [place]. Medical History Condition Response Hyperlipidemia Y Hypertension Y Gynecological HistoryNo gynecological history recorded. Obstetrics History GPAL:G 0 P 0 0 0 0 Past Encounters Encounter ID Performer Location Encounter Start Date Encounter Closed Date Diagnosis/Indication Diagnosis SNOMED-CT Code Diagnosis ICD10 Code Diagnosis Note [id number] Desmond Padilla MD [place] OFFICE [address] [place] [address] 10/26/2020 12:49:39 10/26/2020 14:36:31 Heart failure with reduced ejection fraction 379147752 I50.21 Has nonischemi c cardiomyop athy, HF-rEF. She was in [facility] 09/30/20 with dyspnea, NSTEMI (peak [...] (RVSP 42 mmHg). Begin cardiac rehab at [place]. Patient instructed to taper alcohol to off. Continue metoprolol and Lasix. Consider lisinopril and eventual spironolac tone. Obtain CMP, Mg, TSH, CBC, FLP. Hyperlipidemia 41860239 E78.5 Needs to keep LDL less than 70, and HDL more than 40. Obtain FLP. Obstructiv e sleep apnea syndrome 29904273 G47.33 She is now compliant with CPAP, with pulm. f/u. Essential hypertension 88921364 I10 Patient's blood pressure is {{well-con trolled* [...] diary. Subsequent non-ST segment elevation myocardial infarction 267090797 I22.2 Stable. Had [facility] 10/03/20: mild CAD (mLAD 40% followed by 50% disease which is diffuse from that point towards the end of the vessel), mild-moder ate LV systolic dysfunctio n (LVEF 40%) with nonischemi c cardiomyop athy. Continue ASA, Plavix, metoprolol , statin. Needs to keep LDL less than 70, and HDL more than 40. Maximal medical therapy. Obesity 632916878 E66.9 20 lb. weight loss recommende d over the next 2 months. [id number] Desmond Padilla MD [place] OFF[facility] [place] [address] 11/09/2020 11:31:16 11/09/2020 13:02:04 Heart failure with reduced ejection fraction 008925510 I50.21 Has nonischemi c cardiomyop athy, HF-rEF. She was in [facility] 09/30/20 with dyspnea, NSTEMI (peak trop I 1.25), and CHF exacerbati on in setting of hypertensi ve urgency, COPD exacerbati on, untreated TRAVIS, left leg cellulitis (treated with doxycyclin e), possible pneumonia, diuresed with Lasix 40 mg bid. Had [facility] 10/03/20: mild CAD (mLAD 40% followed by [...] (RVSP 42 mmHg). Begin cardiac rehab at [place]. Patient instructed to taper alcohol to off. [...] weeks. Subsequent non-ST segment elevation myocardial infarction 983325353 I22.2 Stable. Had [facility] 10/03/20: mild CAD (mLAD 40% followed by [...] more than 40. Maximal medical therapy. Hyperlipidemia 70285807 E78.5 Needs to keep LDL less than 70, and HDL more than 40. Had 10/28/20: LDL 83Increase d to rosuvastat in 40 mg qHS 11/09/20. Obstructiv e sleep apnea syndrome 83105320 G47.33 She is now compliant with CPAP, with pulm. f/u. Essential hypertension 52964626 I10 Patient's blood pressure is {{well-con trolled* [...] sodium or less daily). BP diary. Obesity 636138608 E66.9 20 lb. weight loss recommende d over the next 2 months. Health Concerns Section Related Observation LastModified by Organization Detai ls LastModified Time None Recorded Concern Status LastModified by Organization Details LastModified Time None Recorded Advance Directives Directive None Recorded Payers Insurance Date Sequence Insurance Name Policy Number Policy Garcia Covered Member ID Garcia Member ID Guarantor Name 10/26/2020 1 [place] Ping Montes Christin [id number] Ping Christin 11/06/2020 2 [place] [id number] Ping Montes Christin [id number] Ping Christin Notes Date Note Type [...] follow-up for HCF. She was in [facility] 09/30/20 with dyspnea, NSTEMI (peak trop I 1.25), and CHF exacerbation in setting of hypertensive urgency, COPD exacerbation, untreated TRAVIS, left leg cellulitis (treated with doxycycline), possible pneumonia, diuresed with Lasix 40 mg bid. Had [facility] 10/03/20: mild CAD (mLAD 40% [...] K 3.6, Mg 1.7, Cr 0.8, Had [facility] 10/03/20: mild CAD (mLAD 40% followed by [...] She had negative LE venous Doppler 09/2020. Demsond beyer, [place] - [facility] 10/26/2020 14:36:29 11/09/2020 [...] follow-up for HCF. She was in [facility] 09/30/20 with dyspnea, NSTEMI (peak trop I 1.25), and CHF exacerbation in setting of hypertensive urgency, COPD exacerbation, untreated TRAVIS, left leg cellulitis (treated with doxycycline), possible pneumonia, diuresed with Lasix 40 mg bid. Had [facility] 10/03/20: mild CAD (mLAD 40% followed by [...] 1.4, hgb 11.4, plt 108 lab result [id number] result : hgb 10.7, K 3.6, Mg 1.7, Cr 0.8,PT/INR 09-30-2020 electrocardiogram Had [facility] 10/03/20: mild CAD (mLAD 40% followed by [...] view 09-30-2020 US, echocardiogram 09-30-2020 Desmond Padilla [facility], [place] - [facility] 11/09/2020 12:58:46 OBGyn Episode No OBEpisode recorded.
--- OUTSIDE RECORDS SUMMARY | 2024-08-06 12:35 | XMS_ITS ---
Author Name Auto Generated, Auto Generated Organization [facility] [employer] Address [address] [place] [address] Phone [phone] Care Team Providers Care Dairy Clerk Name Role Phone Camila Spence Unavailable Liseth Suherine Unavailable Meagan Menjivar Unavailable Functional Status No Results Mental Status No Results Allergies and Intolerances Name Onset Date Reaction Severity thiopental (Allergy) SatFeb 06 12:18:00 EST 202 3 penicillin (Allergy) SatFeb 06 12:18:00 EST 202 3 Encounters Program Name Primary Diagnosis Admission Date/Time Dis charge Date/Time [place] [facility] SatJun 16 10:00:00 EDT 2024Jul 07 09:45:[address] [facility] SatAugust 19 13:00:00 EDT 2023Sep 02 11:00:00 EDT 2023 Immunizations Name Dates Status TST-PPD intradermal SatJun 16 01:00:00 EDT 2024 Completed TST-PPD intradermal SatJun 23 01:00:00 EDT 2024 Completed TST-PPD intradermal Johana Jun 18 01:00:00 EDT 2024 Completed TST-PPD intradermal Johana Jun 25 01:00:00 EDT 2024 Completed Medications Medication Directions Start Date End Date Trelegy Ellipta 200 mcg-62.5 mcg-25 mcg powder for inhalation 1 puff BLISTER, WITH INHALATION DEVICE Inhalation 1 Time Daily Indication: Wheezing/COPD Sat Jul 04 07:00:00 ED2024Jul 07 01:00:00 ED2024 bumetanide 1 mg tablet 1.5 tablet TABLET Oral 1 Time Daily Indication: Edema SatJul 04 07:00:00 ED2024Jul 07:00:00 2024 polyethylene glycoL 3350 17 gram/dose oral powder 17 g POWDER (GRAM) Oral PRN 1 Time Daily Indication: constipation SatJul 02 19:06:00 2024Jul 07:00:00 ED2024 Stimulant Laxative Plus 8.6 mg-50 mg tablet 2 tabs TABLET Oral PRN 2 Times Daily Indication: constipation SatJul 02 19:06:00 ED2024Jul 07:00:00 2024 Trelegy Ellipta 100 mcg-62.5 mcg-25 mcg powder for inhalation 1 inhalation BLISTER, WITH INHALATION DEVICE Inhalation 1 Time Daily Indication: COPDPosition inhaler in front of or in mouth. Resident is to inhale deeply when spray is applied or inhale contents of the SPACER, wait 1 minute between administering inhalations. Rinse Mouth and expectorate after steroid use. Rinse Applicator (and spacer) after each use. SatJun 30 11:52:00 ED2024Jul 03 12:27:00 ED2024 acetaminophen 500 mg tablet 1000 mg TABL ET Oral PRN Every 6 Hours Indication: painMax dose 3grams/24 hours SatJun 30 11:54:00 EDT 2024Jul 07 01:00:00 2024 potassium chloride ER 20 mEq tablet,extended release 20 mEq TABLET, EXTENDED RELEASE Oral 2 Times Daily Indication: hypokalemia SatJul 01 20:27:00 EDT 2024Jul 07 01:00:00 ED2024 potassium chloride ER 20 mEq tablet,extended release 40mEq TABLET, EXTENDED RELEASE Oral 1 Time Daily for 5 Days Indication: hypokalemia SatJun 25 13:00:00 ED2024Jun 30 12:59:00 ED2024 metOLazone 2.5 mg tablet 1 tab TABLET Or al 1 Time Daily for 5 Days Indication: edema SatJun 25 13:00:00 ED2024Jun 30 12:59:00 ED2024 Trelegy Ellipta 100 mcg-62.5 mcg-25 mcg powder for inhalation 1 inhalation BLISTER, WITH INHALATION DEVICE Inhalation 1 Time Daily Indication: COPDRemind resident to rinse mouth after use to avoid oral thrush from developing SatJun 22 12:31:00 EDT 2024Jun 30 11:54:00 EDT 2024 albuterol sulfate 0.63 mg/3 mL solution for nebulization as directed VIAL, NEBULIZER (ML) Inhalation 2 Times Daily Indication: COPD SatJun 23 09:00:00 EDT 2024Jul 07 01:00:00 EDT 2024 metoprolol tartrate 25 mg tablet 12.5 mg TABLET Oral 2 Times Daily Indication: HTN SatJun 17 10:41:00 EDT 2024Jul 07 01:00:00 EDT 2024 dilTIAZem 60 mg tablet 30mg TABLET Oral 3 Times Daily Indication: HTN SatJun 17 10:41:00 EDT 2024Jul 07 01:00:00 EDT 2024 cholecalciferol (vitamin D3) 50 mcg (2,000 unit) tablet 2,000U TABLET Oral 1 Time Daily Indication: supplement SatJun 17 10:46:00 EDT 2024Jul 07 01:00:00 EDT 2024 balsalazide 750 mg capsule 3 capsules CA PSULE Oral 3 Times Daily Indication: ulcerative colitis take 3 tablets each time SatJun 17 16:02:00 2024Jul 07 01:00:00 ED2024 ipratropium 0.5 mg-albuteroL 3 mg (2.5 mg base)/3 mL nebulization soln 3 mL AMPUL FOR NEBULIZATION (ML) Inhalation PRN Every 6 Hours Indication: wheezing/sob PRN for Wheezing/SOB SatJun 17 17:00:00 EDT 2024Jul 07 01:00:00 EDT 2024 metoprolol tartrate 25 mg tablet 12.5 mg TABLET Oral 2 Times Daily Indication: HTN SatJun 16 13:00:00 ED2024Jun 17 10:42:00 EDT 2024 dilTIAZem 60 mg tablet 60 mg TABLET Oral 3 Times Daily Indication: HTN SatJun 16 13:00:00 EDT 2024Jun 17 10:43:00 EDT 2024 Trelegy Ellipta 100 mcg-62.5 mcg-25 mcg powder for inhalation 1 inhalation BLISTER, WITH INHALATION DEVICE Inhalation 1 Time Daily Indication: COPD SatJun 16 13:00:00 EDT 2024Jun 22 12:33:00 EDT 2024 potassium chloride ER 20 mEq tablet,extended release 20 mEq TABLET, EXTENDED RELEASE Oral 2 Times Daily Indication: hypokalemia SatJun 16 13:00:00 EDT 2024Jun 25 20:28:00 EDT 2024 famotidine 20 mg tablet 20 mg TABLET Ora l 2 Times Daily Indication: indigestion SatJun 16 13:00:00 EDT 2024Jul 07 01:00:00 EDT 2024 cyanocobalamin (vit B-12) 1,000 mcg tablet 1000 TABLET Oral 1 Time Daily Indication: supplement SatJun 16 13:00:00 EDT 2024Jul 07 01:00:00 EDT 2024 Ozempic 1 mg/dose (4 mg/3 mL) subcutaneous pen injector 1 mg PEN INJECTOR (ML) Subcutaneous 1 Time Weekly Indication: diabetes SatJun 16 13:00:00 EDT 2024Jun 16 18:00:00 EDT 2024 gabapentin 300 mg capsule 300 mg CAPSULE Oral 3 Times Daily Indication: nerve pain SatJun 16 13:00:00 EDT 2024Jul 07 01:00:00 EDT 2024 pramipexole 1 mg tablet 1 mg TABLET Oral 1 Time Daily Indication: Parkinson SatJun 16 13:00:00 EDT 2024Jul 07 01:00:00 EDT 2024 folic acid 1 mg tablet 1 mg TABLET Oral 1 Time Daily Indication: supplement SatJun 16 13:00:00 EDT 2024Jul 07 01:00:00 EDT 2024 rosuvastatin 20 mg tablet 20 mg TABLET O ral 1 Time Daily Indication: HDL SatJun 16 13:00:00 EDT 2024Jul 07 01:00:00 EDT 2024 balsalazide 750 mg capsule 2250 mg CAPSU LE Oral 3 Times Daily Indication: ulcerative colitis take 3 tablets each time SatJun 16 13:00:00 EDT 2024Jun 17 16:03:00 EDT 2024 cholecalciferol (vitamin D3) 25 mcg (1,000 unit) tablet 25 mcg TABLET Oral 1 Time Daily Indication: supplement SatJun 16 13:00:00 ED2024Jun 17 10:49:00 EDT 2024 Stimulant Laxative Plus 8.6 mg-50 mg tablet 2 tabs TABLET Oral 2 Times Daily Indication: constipation SatJun 16 13:00:00 EDT 2024Jul 02 19:07:00 ED2024 rOPINIRole 0.5 mg tablet 0.5 mg TABLET O ral 3 Times Daily Indication: Parkinson's SatJun 16 13:00:00 EDT 2024Jul 07 01:00:00 EDT 2024 sertraline 100 mg tablet 100 mg TABLET O ral 1 Time Daily Indication: depression SatJun 16 13:00:00 EDT 2024Jul 07 01:00:00 ED2024 acetaminophen 500 mg tablet 1000 mg TABL ET Oral PRN Every 6 Hours Indication: pain SatJun 16 13:00:00 2024Jun 30 11:55:00 2024 polyethylene glycoL 3350 17 gram/dose oral powder 17 g POWDER (GRAM) Oral 1 Time Daily Indication: constipation SatJun 16 13:00:00 EDT 2024Jul 02 19:07:00 EDT 2024 furosemide 40 mg tablet 40 mg TABLET Ora l 1 Time Daily Indication: HTN BP and/or Pulse Hold: Systolic Blood Pressure < 110 Hold;. SatJun 16 13:00:00 EDT 2024Jul 03 12:27:00 ED2024 TubersoL 5 tub. unit/0.1 mL intradermal injection solution 0.1 ml VIAL (ML) Intradermal 1 Time Weekly for 2 Weeks Indication: admit 1st injection on admission, then one week after. Read between 48 and 72 hours SatJun 16 13:00:00 EDT 2024Jun 30 12:59:00 EDT 2024 TubersoL 5 tub. unit/0.1 mL intradermal injection solution Read Results VIAL (ML) Other 1 Time Weekly for 2 Weeks Indication: admit Read results between 48-72 hours after 1st and 2nd (1 week apart). Any reading of 10mm or greater results in a positive test, an x-ray will need to be ordered as a follow up. SatJun 18 13:00:00 EDT 2024Jul 02 12:59:00 EDT 2024 loperamide 2 mg capsule 2 capsules CAPSU LE Oral PRN 1 Time Daily Indication: Constipation SatAugust 21 16:37:00 EDT 2023Sep 02 01:00:00 EDT 2023 rosuvastatin 20 mg tablet 0.5 tablets TA BLET Oral 1 Time Daily Indication: hyperlipidemia SatAugust 20 08:00:00 EDT 2023Sep 02 01:00:00 EDT 2023 acetaminophen 325 mg tablet 2 tablets TA BLET Oral PRN Every 4 Hours Indication: Pain. Maximum dose is 3gm in 24 hours. SatAugust 20 13:29:00 EDT 2023Sep 02 01:00:00 EDT 2023 ipratropium 0.5 mg-albuteroL 3 mg (2.5 mg base)/3 mL nebulization soln 3mL AMPUL FOR NEBULIZATION (ML) Nebulization Every 6 Hours for 3 Days Indication: COPD SatAugust 19 18:00:00 EDT 2023August 22 17:59:00 EDT 2023 levoFLOXacin 750 mg tablet 1 TABLET Oral 1 Time Daily for 3 Days Indication: UTI SatAugust 19 18:00:00 EDT 2023August 22 17:59:00 EDT 2023 acetaminophen 325 mg tablet 2 tablets TA BLET Oral PRN Every 4 Hours Indication: Pain SatAugust 19 18:00:00 EDT 2023August 20 13:30:00 EDT 2023 famotidine 20 mg tablet 1 tablet TABLET Oral 2 Times Daily Indication: GERD SatAugust 19 18:00:00 EDT 2023Sep 02 01:00:00 EDT 2023 metoprolol tartrate 25 mg tablet 1 tablet TABLET Oral 2 Times Daily Indication: HTN SatAugust 19 18:00:00 EDT 2023Sep 02 01:00:00 EDT 2023 predniSONE 20 mg tablet 2 tablets TABLET Oral 1 Time Daily for 3 Days Indication: UTI SatAugust 19 18:00:00 EDT 2023August 22 17:59:00 EDT 2023 Entresto 24 mg-26 mg tablet 0.5 TABLET O ral Every 12 Hours Indication: CHF SatAugust 19 18:00:00 EDT 2023August 19 18:45:00 EDT 2023 albuterol sulfate 2.5 mg/3 mL (0.083 %) solution for nebulization 2.5mg VIAL, NEBULIZER (ML) Nebulization PRN 2 Times Daily Indication: SOB, COPD SatAugust 19 18:00:00 EDT 2023Sep 02 01:00:00 EDT 2023 Entresto 24 mg-26 mg tablet 0.5 tablet T ABLET Oral Every 12 Hours Indication: CHF SatAugust 19 18:43:00 EDT 2023Sep 02 01:00:00 EDT 2023 pramipexole 1 mg tablet 1 tablet TABLET Oral 1 Time Daily Indication: RLS SatAugust 19 18:00:00 EDT 2023Sep 02 01:00:00 EDT 2023 Xarelto 20 mg tablet 1 tablet TABLET Ora l 1 Time Daily Indication: CAD, history of stroke SatAugust 19 19:00:00 EDT 2023Sep 02 01:00:00 EDT 2023 Vitamin D3 25 mcg (1,000 unit) capsule 2 capsules CAPSULE Oral 1 Time Daily Indication: Vit. D deficiency SatAugust 19 18:00:00 EDT 2023Sep 02 01:00:00 EDT 2023 loperamide 2 mg capsule 2 capsules CAPSU LE Oral 1 Time Daily Indication: Chron's disease SatAugust 19 18:00:00 EDT 2023August 21 16:38:00 EDT 2023 balsalazide 750 mg capsule 3 capsules CA PSULE Oral 3 Times Daily Indication: IBS SatAugust 19 18:00:00 EDT 2023Sep 02 01:00:00 EDT 2023 rosuvastatin 20 mg tablet 0.5 tablets TA BLET Oral 1 Time Daily Indication: hyperlipidemia SatAugust 19 18:00:00 EDT 2023August 20 08:05:00 EDT 2023 gabapentin 300 mg capsule 1 capsule CAPS ULE Oral 3 Times Daily Indication: RLS SatAugust 19 18:00:00 EDT 2023Sep 02 01:00:00 EDT 2023 sertraline 100 mg tablet 1 tablet TABLET Oral 1 Time Daily Indication: depression SatAugust 19 18:00:00 EDT 2023August 19 20:09:00 EDT 2023 rOPINIRole 1 mg tablet 1 tablet TABLET O ral Every 8 Hours Indication: RLS SatAugust 19 18:00:00 EDT 2023Sep 02 01:00:00 EDT 2023 ipratropium 0.5 mg-albuteroL 3 mg (2.5 mg base)/3 mL nebulization soln 3 mL AMPUL FOR NEBULIZATION (ML) Inhalation PRN Every 6 Hours Indication: Wheezing SatAug 23 19:00:00 EDT 2023Sep 02 01:00:00 EDT 2023 sertraline 100 mg tablet 1 tablet TABLET Oral 1 Time Daily Indication: depression SatAugust 19 20:08:00 EDT 2023Sep 02 01:00:00 EDT 2023 Fluad Quad (65yr up)(PF) 60 mcg (15 mcg x 4)/0.5mL IM syringe 0.5 ml SYRINGE (ML) Intramuscular 1 Time Daily Indication: Vaccine SatFeb 19 16:00:00 EST 2022Feb 19 17:15:00 EST 2022 Fluad Quad (65yr up)(PF) 60 mcg (15 mcg x 4)/0.5mL IM syringe 0.5 ml SYRINGE (ML) Intramuscular 1 Time Daily Indication: Vaccine SatFeb 19 17:14:00 2022Feb 19 17:16:00 EST 2022 Fluad Quad (65yr up)(PF) 60 mcg (15 mcg x 4)/0.5mL IM syringe 0.5 ml SYRINGE (ML) Intramuscular 1 Time Daily for 1 Day Indication: Vaccine SatFeb 19 07:00:00 EST 2022Feb 20 06:59:00 EST 2022 Jardiance 10 mg tablet 1 TABLET TABLET O ral 1 Time Daily Indication: DM SatFeb 12 10:20:00 EST 2022Feb 24 01:00:00 EST 2022 QUEtiapine 25 mg tablet 1 TABLET TABLET Oral 1 Time Daily Indication: Depression Indication: Depression SatFeb 09 21:00:00 EST 2022Feb 13 13:59:00 EST 2022 TubersoL 5 tub. unit/0.1 mL intradermal injection solution 0.1 ml VIAL (ML) Intradermal 1 Time Weekly for 2 Weeks Indication: TB test 1st injection on admission, then one week after. Read between 48 and 72 hours SatFeb 09 09:00:00 EST 2022Feb 23 08:59:00 2022 TubersoL 5 tub. unit/0.1 mL intradermal injection solution Read Results VIAL (ML) Other 1 Time Weekly for 2 Weeks Indication: TB test Read results between 48-72 hours after 1st and 2nd (1 week apart). If positive do chest x-ray. SatFeb 09 09:00:00 2022Feb 23 08:59:00 2022 albuterol sulfate 2.5 mg/3 mL (0.083 %) solution for nebulization 3ML VIAL, NEBULIZER (ML) Inhalation 2 Times Daily Indication: SHORTNESS OF BREATH SatFeb 07 17:07:00 2022Feb 24 01:00:00 2022 cyanocobalamin (vit B-12) 1,000 mcg tablet 1 TABLET TABLET Oral 1 Time Daily Indication: Supplement SatFeb 06 14:00:00 2022Feb 24 01:00:00 2022 doxycycline hyclate 100 mg tablet 1 TABLET TABLET Oral Every 12 Hours for 4 Days Indication: Pneumonia SatFeb 06 14:00:00 2022Feb 10 13:59:00 2022 metoprolol tartrate 50 mg tablet 1 TABLET TABLET Oral Every 12 Hours Indication: Regulate heartrate SatFeb 06 14:00:2022Feb 06 18:32:00 2022 metroNIDAZOLE 250 mg tablet 2 TABLETS TA BLET Oral Every 8 Hours for 4 Days Indication: Pneumonia (2 [id number]) SatFeb 06 14:00:00 2022Feb 10 13:59:00 2022 thiamine HCl (vitamin B1) 100 mg tablet 1 TABLET TABLET Oral 1 Time Daily Indication: Supplement SatFeb 06 14:00:00 2022Feb 24 01:00:00 2022 folic acid 1 mg tablet 1 TABLET TABLET O ral 1 Time Daily Indication: Supplement SatFeb 06 14:00:00 2022Feb 24 01:00:00 2022 QUEtiapine 25 mg tablet 1 TABLET TABLET Oral 1 Time Daily Indication: Depression SatFeb 06 14:00:00 2022Feb 09 11:38:00 2022 albuterol sulfate 2.5 mg/3 mL (0.083 %) solution for nebulization 3ML VIAL, NEBULIZER (ML) Inhalation PRN 2 Times Daily Indication: SHORTNESS OF BREATH SatFeb 06 14:00:00 2022Feb 07 17:07:00 2022 Entresto 24 mg-26 mg tablet 1 TABLET TAB LET Oral 2 Times Daily Indication: CHF SatFeb 06 14:00:00 2022 03 01:00:00 EST 2022 rosuvastatin 20 mg tablet 1 TABLET TABLE T Oral 1 Time Daily Indication: HLD SatFeb 06 14:00:00 2022Feb 24 01:00:00 EST 2022 pramipexole 1 mg tablet 1 TABLET TABLET Oral 1 Time Daily Indication: RLS SatFeb 06 14:00:00 2022Feb 24 01:00:00 EST 2022 balsalazide 750 mg capsule 3 CAPSULES CA PSULE Oral 3 Times Daily Indication: IBS3 CAPSULES= 2250MG SatFeb 06 14:00:00 2022Feb 24 01:00:00 EST 2022 potassium chloride ER 20 mEq tablet,extended release 1 TABLET TABLET, EXTENDED RELEASE Oral 2 Times Daily Indication: Supplement SatFeb 06 14:00:00 2022Feb 24 01:00:00 EST 2022 gabapentin 300 mg capsule 1 CAPSULE CAPS ULE Oral 3 Times Daily Indication: Neuropathy SatFeb 06 14:00:00 2022Feb 24 01:00:00 EST 2022 sertraline 100 mg tablet 1 TABLET TABLET Oral 1 Time Daily Indication: Depression SatFeb 06 14:00:00 2022Feb 24 01:00:00 EST 2022 Jardiance 10 mg tablet 1 TABLET TABLET O ral 1 Time Daily Indication: DM SatFeb 06 14:00:00 2022Feb 12 10:22:00 2022 Xarelto 20 mg tablet 1 TABLET TABLET Ora l 1 Time Daily Indication: Blood thinner SatFeb 06 14:00:00 2022Feb 24 01:00:00 EST 2022 metoprolol tartrate 50 mg tablet 1 TABLET TABLET Oral Every 12 Hours Indication: Afib SatFeb 06 19:00:00 EST 2022Feb 24 01:00:00 EST 2022 Problems Active Concerns * Other acidosis* Code: * Start Date: SatFeb 06 00:00:00 EST 2022 * End Date: * Text: * Alcohol dependence, uncomplicated* Code: * Start Date: SatFeb 06 00:00:00 2022 * End Date: * Text: * Obstructive sleep apnea (adult) (pediatric)* Code: * Start Date: SatFeb 06 00:00:00 2022 * End Date: * Text: * Chronic respiratory failure with hypoxia* Code: * Start Date: SatFeb 06 00:00:00 EST 2022 * End Date: * Text: * Dependence on supplemental oxygen* Code: * Start Date: SatFeb 06 00:00:00 EST 2022 * End Date: * Text: * Restless legs syndrome* Code: * Start Date: SatFeb 06 00:00:00 2022 * End Date: * Text: * Pulmonary hypertension, unspecified* Code: * Start Date: SatFeb 06 00:00:00 EST 2022 * End Date: * Text: * Polyneuropathy, unspecified* Code: * Start Date: SatFeb 06 00:00:00 EST 2022 * End Date: * Text: * Mixed hyperlipidemia* Code: * Start Date: SatFeb 06 00:00:00 EST 2022 * End Date: * Text: * Personal history of nicotine dependence* Code: * Start Date: SatFeb 06 00:00:00 EST 2022 * End Date: * Text: * Dilated cardiomyopathy* Code: * Start Date: SatFeb 06 00:00:00 2022 * End Date: * Text: * Depression, unspecified* Code: * Start Date: SatFeb 06 00:00:00 EST 2022 * End Date: * Text: * 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* Code: * Start Date: SatFeb 06 00:00:00 EST 2022 * End Date: * Text: * Hypotension, unspecified* Code: * Start Date: SatAugust 19 00:00:00 EDT 2023 * End Date: * Text: * Thrombocytopenia, unspecified* Code: * Start Date: SatAugust 19 00:00:00 EDT 2023 * End Date: * Text: * Anemia, unspecified* Code: * Start Date: SatAugust 19 00:00:00 EDT 2023 * End Date: * Text: * Chronic atrial fibrillation, unspecified* Code: * Start Date: SatAugust 19 00:00:00 EDT 2023 * End Date: * Text: * Repeated falls* Code: * Start Date: SatAugust 19 00:00:00 EDT 2023 * End Date: * Text: * Old myocardial infarction* Code: * Start Date: SatAugust 19 00:00:00 EDT 2023 * End Date: * Text: * Presence of right artificial shoulder joint* Code: * Start Date: SatAugust 19 00:00:00 EDT 2023 * End Date: * Text: * Ulcerative colitis, unspecified, without complications* Code: * Start Date: SatAugust 19 00:00:00 EDT 2023 * End Date: * Text: * Cervical disc disorder with radiculopathy, unspecified cervical region* Code: * Start Date: SatAugust 19 00:00:00 EDT 2023 * End Date: * Text: * FPC (current) use of opiate analgesic* Code: * Start Date: SatAugust 19 00:00:00 EDT 2023 * End Date: * Text: * Chronic systolic (congestive) heart failure* Code: * Start Date: SatJun 16 00:00:00 EDT 2024 * End Date: * Text: * Unspecified fracture of the lower end of left radius, subsequent encounter for closed fracture withroutine healing* Code: * Start Date: SatJun 16 00:00:00 EDT 2024 * End Date: * Text: * Presence of other bone and tendon implants* Code: * Start Date: SatJun 16 00:00:00 EDT 2024 * End Date: * Text: * Traumatic hemorrhage of cerebrum, unspecified, with loss of consciousness of unspecified duration, subsequent encounter* Code: * Start Date: SatJun 16 00:00:00 EDT 2024 * End Date: * Text: * Fracture of orbital floor, right side, subsequent encounter for fracture with routine healing* Code: * Start Date: SatJun 16 00:00:00 EDT 2024 * End Date: * Text: * Hypertensive heart and chronic kidney disease with heart failure and stage 1 through stage 4 chronic kidney disease, or unspecified chronic kidney disease * Code: * Start Date: SatJun 16 00:00:00 EDT 2024 * End Date: * Text: * Chronic kidney disease, unspecified* Code: * Start Date: SatJun 16 00:00:00 EDT 2024 * End Date: * Text: * Atherosclerotic heart disease of [place] coronary artery without angina pectoris* Code: * Start Date: SatJun 16 00:00:00 EDT 2024 * End Date: * Text: * Chronic obstructive pulmonary disease, unspecified* Code: * Start Date: SatJun 16 00:00:00 EDT 2024 * End Date: * Text: * Crohn's disease, unspecified, without complications* Code: * Start Date: SatJun 16 00:00:00 EDT 2024 * End Date: * Text: * Vitamin deficiency, unspecified* Code: * Start Date: SatJun 16 00:00:00 EDT 2024 * End Date: * Text: * Constipation, unspecified* Code: * Start Date: SatJun 16 00:00:00 EDT 2024 * End Date: * Text: * Major depressive disorder, single episode, unspecified* Code: * Start Date: SatJun 16 00:00:00 EDT 2024 * End Date: * Text: * Gastro-esophageal reflux disease without esophagitis* Code: * Start Date: SatJun 16 00:00:00 EDT 2024 * End Date: * Text: * Hereditary and idiopathic neuropathy, unspecified* Code: * Start Date: SatJun 16 00:00:00 EDT 2024 * End Date: * Text: * Becky Feng's wishes will be followed (Advanced Directive/Code Status).* Code: * Start Date: SatAug 23 00:00:00 EDT 2023 * End Date: * Text: Becky Feng's wishes will be followed (Advanced Directive/Code Status). * Becky Feng will be involved in goal development to the best of his or her ability.* Code: * Start Date: SatAug 23 00:00:00 EDT 2023 * End Date: * Text: Becky Feng will be involved in goal development to the best of his or her ability. * Becky Feng has family/friends who are supportive.* Code: * Start Date: SatAug 23 00:00:00 EDT 2023 * End Date: * Text: Becky Feng has family/friends who are supportive. * Becky Feng's mobility level is different than prior level due to current medical condition.* Code: * Start Date: SatAug 23 00:00:00 EDT 2023 * End Date: * Text: Becky Feng's mobility level is different than prior level due to current medical condition. * Becky Feng has a dx of depression and is currently on an antidepressant.* Code: * Start Date: SatAug 23 00:00:00 EDT 2023 * End Date: * Text: GIANNAS_Social ServicesRoger Feng has a dx of depression and is currently on an antidepressant. * LSS_Social Services- Ping will be involved in discharge planning.* Code: * Start Date: SatAug 23 00:00:00 EDT 2023 * End Date: * Text: LSS_Social Services- Ping will be involved in discharge planning. * [id number] Ping receives a therapeutic diet. (12)* Code: * Start Date: SatJun 25 00:00:00 EDT 2024 * End Date: * Text: [id number] Ping receives a therapeutic diet. (12) * LSS_COPD Roger Feng has diagnosis of COPD.* Code: * Start Date: SatJun 29 00:00:00 EDT 2024 * End Date: * Text: LSS_COPD Roger Feng has diagnosis of COPD. * LSS_Psychotropic Drug Use - Use of psychotropic drug use places Ping at risk for drug-related side effects.* Code: * Start Date: SatJun 29 00:00:00 EDT 2024 * End Date: * Text: LSS_Psychotropic Drug Use - Use of psychotropic drug use places Ping at risk for drug-related side effects. * LSS_Falls - Ping is at risk for falls/injury as evidenced by: history of falls, cognitive status/behavior, vision status, continence, mobility, balance.* Code: * Start Date: SatJun 29 00:00:00 EDT 2024 * End Date: * Text: LSS_Falls - Ping is at risk for falls/injury as evidenced by: history of falls, cognitive status/behavior, vision status, continence, mobility, balance. * LSS_Skin Integrity - (Potential Alteration of)- Ping is at risk for developing impaired skin integrity.* Code: * Start Date: SatJun 29 00:00:00 EDT 2024 * End Date: * Text: LSS_Skin Integrity - (Potential Alteration of)- Ping is at risk for developing impaired skin integrity. * LSS_ADLs - Ping has ADL selfcare deficit related to decreased mobility and muscle weakness* Code: * Start Date: SatJun 29 00:00:00 EDT 2024 * End Date: * Text: RASHIDA_ADLs - Ping has ADL selfcare deficit related to decreased mobility and muscle weakness * GIANNAS_Urinary Incontinence1 - Ping is occasionally incontinent.* Code: * Start Date: SatJun 29 00:00:00 EDT 2024 * End Date: * Text: GIANNAS_Urinary Incontinence1 - Ping is occasionally incontinent. * GIANNASAmilcarSocial Allegra Feng's wishes will be followed (Advanced Directive/Code Status).* Code: * Start Date: SatJun 29 00:00:00 EDT 2024 * End Date: * Text: GIANNASAmilcarSocial Allegra Feng's wishes will be followed (Advanced Directive/Code Status). * NEGRITOSocial Allegra Feng will be involved in goal development to the best of his or her ability.* Code: * Start Date: SatJun 29 00:00:00 EDT 2024 * End Date: * Text: NEGRITOSocial Allegra Feng will be involved in goal development to the best of his or her ability. * NEGRITOSocial Allegra Feng has family/friends who are supportive.* Code: * Start Date: SatJun 29 00:00:00 EDT 2024 * End Date: * Text: NEGRITOSocial Allegra Feng has family/friends who are supportive. * NEGRITOSocial Allegra Feng's mobility level is different than prior level due to current medical condition.* Code: * Start Date: SatJun 29 00:00:00 EDT 2024 * End Date: * Text: NEGRITOSocial Allegra Feng's mobility level is different than prior level due to current medical condition. * NEGRITOSocial Allegra Feng has a dx of depression and is currently on an antidepressant.* Code: * Start Date: SatJun 29 00:00:00 EDT 2024 * End Date: * Text: [employer] Allegra Feng has a dx of depression and is currently on an antidepressant. * [employer] Allegra Feng will be involved in discharge planning.* Code: * Start Date: SatJun 29 00:00:00 EDT 2024 * End Date: * Text: [employer] Allegra Feng will be involved in discharge planning. Resolved Concerns * Problem Other specified respiratory disorders* Code: * Start Date: SatFeb 06:00:00 EST 2022 * End Date: SatJun 17 00:00:00 EDT 2024 * Problem Emphysema, unspecified* Code: * Start Date: SatFeb 06 00:00:00 EST 2022 * End Date: SatJun 19 00:00:00 EDT 2024 * Problem Hypertensive heart disease with heart failure* Code: * Start Date: SatFeb 06 00:00:00 EST 2022 * End Date: SatJun 19 00:00:00 EDT 2024 * Problem Pneumonia, unspecified organism* Code: * Start Date: SatFeb 06 00:00:00 EST 2022 * End Date: SatJun 17 00:00:00 EDT 2024 * Problem Chronic obstructive pulmonary disease with (acute) lower respiratory infection* Code: * Start Date: SatFeb 06 00:00:00 EST 2022 * End Date: SatJun 16 00:00:00 EDT 2024 * Problem Acute and chronic respiratory failure with hypoxia* Code: * Start Date: SatFeb 06 00:00:00 EST 2022 * End Date: SatJun 17 00:00:00 EDT 2024 * Problem Acute kidney failure, unspecified* Code: * Start Date: SatFeb 06 00:00:00 EST 2022 * End Date: SatJun 17 00:00:00 EDT 2024 * Problem Heart failure, unspecified* Code: * Start Date: SatFeb 06 00:00:00 EST 2022 * End Date: SatJun 17 00:00:00 EDT 2024 * Problem Fall on same level from slipping, tripping and stumbling with subsequent striking against furniture, subsequent encounter* Code: * Start Date: SatAugust 19 00:00:00 EDT 2023 * End Date: SatJun 17 00:00:00 EDT 2024 * Problem Laceration without foreign body of other part of head, subsequent encounter* Code: * Start Date: SatAugust 19 00:00:00 EDT 2023 * End Date: SatJun 17 00:00:00 EDT 2024 * Problem Contusion of left eyelid and periocular area, subsequent encounter* Code: * Start Date: SatAugust 19 00:00:00 EDT 2023 * End Date: SatJun 17 00:00:00 EDT 2024 * Problem Contusion of unspecified part of neck, subsequent encounter* Code: * Start Date: SatAugust 19 00:00:00 EDT 2023 * End Date: SatJun 17 00:00:00 EDT 2024 * Problem Contusion of thorax, unspecified, subsequent encounter* Code: * Start Date: SatAugust 19 00:00:00 EDT 2023 * End Date: SatJun 17 00:00:00 EDT 2024 * Problem Hemorrhage of bilateral orbit* Code: * Start Date: SatAugust 19 00:00:00 EDT 2023 * End Date: SatJun 17 00:00:00 EDT 2024 * Problem Urinary tract infection, site not specified* Code: * Start Date: SatAugust 19 00:00:00 EDT 2023 * End Date: SatJun 17 00:00:00 EDT 2024 * Problem Chronic obstructive pulmonary disease with (acute) exacerbation* Code: * Start Date: SatAugust 19 00:00:00 EDT 2023 * End Date: SatJun 17 00:00:00 EDT 2024 * Problem Presence of right artificial hip joint* Code: * Start Date: SatAugust 19 00:00:00 EDT 2023 * End Date: SatAugust 19 00:00:00 EDT 2023 * Problem Fracture of orbital floor, unspecified side, subsequent encounter for fracture with routinehealing* Code: * Start Date: SatJun 16 00:00:00 EDT 2024 * End Date: SatJun 19 00:00:00 EDT 2024 Vital Signs Vital Sign Measurement Date Systolic Blood Pressure 128.00 mm[Hg] SatJul 07 14:19:03 EDT 2024 Diastolic Blood Pressure 69.00 mm[Hg] SatJul 07 14:19:03 EDT 2024 Heart Rate 95.00 /min SatJul 07 14:19 :03 EDT 2024 Body weight 217.80 [lb_av] SatJul 07 11:08 :50 EDT 2024 Systolic Blood Pressure 123.00 mm[Hg] SatJul 07 09:18:11 EDT 2024 Diastolic Blood Pressure 77.00 mm[Hg] SatJul 07 09:18:11 EDT 2024 Systolic Blood Pressure 123.00 mm[Hg] SatJul 07 09:18:11 EDT 2024 Diastolic Blood Pressure 77.00 mm[Hg] SatJul 07 09:18:11 EDT 2024 Heart Rate 93.00 /min SatJul 07 09:18 :11 EDT 2024 Heart Rate 93.00 /min SatJul 07 09:18 :11 EDT 2024 Pulse Oximetry 95.00 % SatJul 07 08:16 :34 EDT 2024 Systolic Blood Pressure 123.00 mm[Hg] SatJul 07 08:16:22 EDT 2024 Diastolic Blood Pressure 77.00 mm[Hg] SatJul 07 08:16:22 EDT 2024 Heart Rate 93.00 /min SatJul 07 08:16 :22 EDT 2024 Body temperature 98.60 [degF] SatJul 07 08:1 6:22 EDT 2024 Respiratory rate 18.00 /min SatJul 07 08:1 6:22 EDT 2024 Pulse Oximetry 95.00 % SatJul 07 08:16 :22 EDT 2024 Pulse Oximetry 93.00 % SatJul 07 05:21 :36 EDT 2024 Systolic Blood Pressure 98.00 mm[Hg] SatJul 07 00:21:31 EDT 2024 Diastolic Blood Pressure 62.00 mm[Hg] SatJul 07 00:21:31 EDT 2024 Heart Rate 95.00 /min SatJul 07 00:21 :31 EDT 2024 Body temperature 98.20 [degF] SatJul 07 00:2 1:31 EDT 2024 Respiratory rate 18.00 /min SatJul 07 00:2 1:31 EDT 2024 Pulse Oximetry 93.00 % SatJul 07 00:21 :31 EDT 2024 Pulse Oximetry 93.00 % SatJul 06 22:18 :04 EDT 2024 Systolic Blood Pressure 98.00 mm[Hg] SatJul 06 22:15:51 EDT 2024 Diastolic Blood Pressure 62.00 mm[Hg] SatJul 06 22:15:51 EDT 2024 Systolic Blood Pressure 98.00 mm[Hg] SatJul 06 22:15:51 EDT 2024 Diastolic Blood Pressure 62.00 mm[Hg] SatJul 06 22:15:51 EDT 2024 Heart Rate 95.00 /min SatJul 06 22:15 :51 EDT 2024 Heart Rate 95.00 /min SatJul 06 22:15 :51 EDT 2024 Body weight 213.00 [lb_av] Mon Apr 14 18:19 :16 EDT 2024 Systolic Blood Pressure 121.00 mm[Hg] Sat 14 15:36:21 EDT 2024 Diastolic Blood Pressure 86.00 mm[Hg] SatJul 06 15:36:21 EDT 2024 Heart Rate 90.00 /min SatJul 06 15:36 :21 EDT 2024 Systolic Blood Pressure 110.00 mm[Hg] Sat 14 09:29:59 EDT 2024 Diastolic Blood Pressure 76.00 mm[Hg] SatJul 06 09:29:59 EDT 2024 Systolic Blood Pressure 110.00 mm[Hg] SatJul 06 09:29:59 EDT 2024 Diastolic Blood Pressure 76.00 mm[Hg] SatJul 06 09:29:59 EDT 2024 Systolic Blood Pressure 110.00 mm[Hg] SatJul 06 09:29:59 EDT 2024 Diastolic Blood Pressure 76.00 mm[Hg] SatJul 06 09:29:59 EDT 2024 Heart Rate 84.00 /min SatJul 06 09:29 :59 EDT 2024 Heart Rate 84.00 /min SatJul 06 09:29 :59 EDT 2024 Heart Rate 84.00 /min SatJul 06 09:29 :59 EDT 2024 Body temperature 98.70 [degF] SatJul 06 09:2 9:59 EDT 2024 Respiratory rate 20.00 /min SatJul 06 09:2 9:59 EDT 2024 Pulse Oximetry 93.00 % SatJul 06 09:29 :59 EDT 2024 Pulse Oximetry 93.00 % SatJul 06 09:29 :59 EDT 2024 Pulse Oximetry 94.00 % SatJul 06 05:40 :56 EDT 2024 Systolic Blood Pressure 146.00 mm[Hg] SatJul 06 00:41:34 EDT 2024 Diastolic Blood Pressure 87.00 mm[Hg] SatJul 06 00:41:34 EDT 2024 Heart Rate 94.00 /min SatJul 06 00:41 :34 EDT 2024 Body temperature 98.20 [degF] SatJul 06 00:4 1:34 EDT 2024 Respiratory rate 18.00 /min SatJul 06 00:4 1:34 EDT 2024 Pulse Oximetry 94.00 % SatJul 06 00:41 :34 EDT 2024 Systolic Blood Pressure 146.00 mm[Hg] Sun Apr 13 22:01:27 EDT 2024 Diastolic Blood Pressure 87.00 mm[Hg] Sun Jun 13 22:01:27 EDT 2024 Systolic Blood Pressure 146.00 mm[Hg] Sun Jul 05 22:01:27 EDT 2024 Diastolic Blood Pressure 87.00 mm[Hg] Sun Jul 05 22:01:27 EDT 2024 Heart Rate 94.00 /min Sun Jul 05 22:01 :27 EDT 2024 Heart Rate 94.00 /min Sun Jul 05 22:01 :27 EDT 2024 Pulse Oximetry 99.00 % Sun Jul 05 22:01 :27 EDT 2024 Body weight 213.10 [lb_av] Sun Jul 05 17:36 :51 EDT 2024 Systolic Blood Pressure 139.00 mm[Hg] Sun Jul 05 14:40:14 EDT 2024 Diastolic Blood Pressure 74.00 mm[Hg] Sun Jul 05 14:40:14 EDT 2024 Heart Rate 75.00 /min Sun Jul 05 14:40 :14 EDT 2024 Systolic Blood Pressure 121.00 mm[Hg] Sun Jul 05 10:17:11 EDT 2024 Diastolic Blood Pressure 78.00 mm[Hg] Sun Jul 05 10:17:11 EDT 2024 Heart Rate 82.00 /min Sun Jul 05 10:17 :11 EDT 2024 Body temperature 98.30 [degF] Sun Jul 05 10:1 7:11 EDT 2024 Respiratory rate 20.00 /min Sun Jul 05 10:1 7:11 EDT 2024 Pulse Oximetry 97.00 % Sun Jul 05 10:17 :11 EDT 2024 Pulse Oximetry 97.00 % Sun Jul 05 10:17 :11 EDT 2024 Systolic Blood Pressure 121.00 mm[Hg] Sun Jul 05 09:15:28 EDT 2024 Diastolic Blood Pressure 78.00 mm[Hg] Sun Apr 09:15:28 EDT 2024 Systolic Blood Pressure 121.00 mm[Hg] Sun Apr 09:15:28 EDT 2024 Diastolic Blood Pressure 78.00 mm[Hg] Sun Apr 09:15:28 EDT 2024 Heart Rate 82.00 /min Sun Apr 09:15 :28 EDT 2024 Heart Rate 82.00 /min Sun Apr 09:15 :28 EDT 2024 Systolic Blood Pressure 133.00 mm[Hg] Sun Apr 13 01:05:24 EDT 2024 Diastolic Blood Pressure 89.00 mm[Hg] Sun Jun 13 01:05:24 EDT 2024 Heart Rate 94.00 /min Sun Jun 13 01:05 :24 EDT 2024 Body temperature 97.10 [degF] Sun Jun 13 01:0 5:24 EDT 2024 Respiratory rate 18.00 /min Sun Apr 01:0 5:24 EDT 2024 Pulse Oximetry 94.00 % Sun Jul 05 01:05 :24 EDT 2024 Pulse Oximetry 94.00 % Sun Jul 05 01:05 :24 EDT 2024 Pulse Oximetry 94.00 % [place] Apr 01:05 :24 EDT 2024 Systolic Blood Pressure 122.00 mm[Hg] [facility] Apr 12 22:04:55 EDT 2024 Diastolic Blood Pressure 80.00 mm[Hg] [facility] 12 22:04:55 EDT 2024 Systolic Blood Pressure 122.00 mm[Hg] [facility] 12 22:04:55 EDT 2024 Diastolic Blood Pressure 80.00 mm[Hg] [facility] 12 22:04:55 EDT 2024 Heart Rate 94.00 /min [facility] 12 22:04 :55 EDT 2024 Heart Rate 94.00 /min [facility] 12 22:04 :55 EDT 2024 Body weight 212.80 [lb_av] [facility] Apr 12 17:09 :01 EDT 2024 Systolic Blood Pressure 119.00 mm[Hg] [facility] Apr 12 14:27:00 EDT 2024 Diastolic Blood Pressure 83.00 mm[Hg] [facility] Apr 12 14:27:00 EDT 2024 Heart Rate 98.00 /min [facility] 12 14:27 :00 EDT 2024 Systolic Blood Pressure 114.00 mm[Hg] [facility] Apr 12 11:56:23 EDT 2024 Diastolic Blood Pressure 66.00 mm[Hg] [facility] Apr 12 11:56:23 EDT 2024 Heart Rate 95.00 /min [facility] Apr 12 11:56 :23 EDT 2024 Body temperature 98.30 [degF] [facility] Apr 12 11:5 6:23 EDT 2024 Respiratory rate 18.00 /min [facility] Apr 12 11:5 6:23 EDT 2024 Pulse Oximetry 93.00 % [facility] Apr 12 11:56 :23 EDT 2024 Pulse Oximetry 93.00 % [facility] Apr 12 11:56 :23 EDT 2024 Systolic Blood Pressure 104.00 mm[Hg] Sat Jun 12 08:51:15 EDT 2024 Diastolic Blood Pressure 66.00 mm[Hg] Sat Jun 12 08:51:15 EDT 2024 Systolic Blood Pressure 104.00 mm[Hg] Sat Apr 12 08:51:15 EDT 2024 Diastolic Blood Pressure 66.00 mm[Hg] Sat Apr 12 08:51:15 EDT 2024 Heart Rate 95.00 /min Sat 12 08:51 :15 EDT 2024 Heart Rate 95.00 /min SatJul 04 08:51 :15 EDT 2024 Systolic Blood Pressure 114.00 mm[Hg] SatJul 03 23:38:37 EDT 2024 Diastolic Blood Pressure 68.00 mm[Hg] SatJul 03 23:38:37 EDT 2024 Heart Rate 89.00 /min SatJul 03 23:38 :37 EDT 2024 Body temperature 97.80 [degF] SatJul 03 23:3 8:37 EDT 2024 Respiratory rate 18.00 /min SatJul 03 23:3 8:37 EDT 2024 Pulse Oximetry 97.00 % SatJul 03 23:38 :37 EDT 2024 Pulse Oximetry 97.00 % SatJul 03 23:38 :37 EDT 2024 Pulse Oximetry 97.00 % SatJul 03 23:38 :37 EDT 2024 Systolic Blood Pressure 114.00 mm[Hg] SatJul 03 20:22:00 EDT 2024 Diastolic Blood Pressure 68.00 mm[Hg] SatJul 03 20:22:00 EDT 2024 Systolic Blood Pressure 114.00 mm[Hg] SatJul 03 20:22:00 EDT 2024 Diastolic Blood Pressure 68.00 mm[Hg] SatJul 03 20:22:00 EDT 2024 Heart Rate 89.00 /min SatJul 03 20:22 :00 EDT 2024 Heart Rate 89.00 /min SatJul 03 20:22 :00 EDT 2024 Body weight 213.40 [lb_av] SatJul 03 16:44 :08 EDT 2024 Systolic Blood Pressure 95.00 mm[Hg] SatJul 03 16:19:39 EDT 2024 Diastolic Blood Pressure 59.00 mm[Hg] SatJul 03 16:19:39 EDT 2024 Heart Rate 87.00 /min SatJul 03 16:19 :39 EDT 2024 Systolic Blood Pressure 149.00 mm[Hg] SatJul 03 09:00:07 EDT 2024 Diastolic Blood Pressure 88.00 mm[Hg] SatJul 03 09:00:07 EDT 2024 Systolic Blood Pressure 149.00 mm[Hg] SatJul 03 09:00:07 EDT 2024 Diastolic Blood Pressure 88.00 mm[Hg] SatJul 03 09:00:07 EDT 2024 Systolic Blood Pressure 149.00 mm[Hg] SatJul 03 09:00:07 EDT 2024 Diastolic Blood Pressure 88.00 mm[Hg] SatJul 03 09:00:07 EDT 2024 Heart Rate 77.00 /min SatJul 03 09:00 :07 EDT 2024 Heart Rate 77.00 /min SatJul 03 09:00 :07 EDT 2024 Systolic Blood Pressure 149.00 mm[Hg] SatJul 03 08:17:26 EDT 2024 Diastolic Blood Pressure 88.00 mm[Hg] SatJul 03 08:17:26 EDT 2024 Heart Rate 77.00 /min SatJul 03 08:17 :26 EDT 2024 Body temperature 98.20 [degF] SatJul 03 08:1 7:26 EDT 2024 Respiratory rate 20.00 /min SatJul 03 08:1 7:26 EDT 2024 Pulse Oximetry 96.00 % SatJul 03 08:17 :26 EDT 2024 Pulse Oximetry 96.00 % SatJul 03 08:17 :26 EDT 2024 Pulse Oximetry 95.00 % Johana Jul 02 23:24 :56 EDT 2024 Systolic Blood Pressure 111.00 mm[Hg] Johana Jul 02 22:46:18 EDT 2024 Diastolic Blood Pressure 66.00 mm[Hg] SatJul 02 22:46:18 EDT 2024 Heart Rate 99.00 /min SatJul 02 22:46 :18 EDT 2024 Body temperature 98.50 [degF] SatJul 02 22:4 6:18 EDT 2024 Respiratory rate 18.00 /min SatJul 02 22:4 6:18 EDT 2024 Pulse Oximetry 94.00 % SatJul 02 22:46 :18 EDT 2024 Pulse Oximetry 94.00 % Johana Jul 02 22:46 :18 EDT 2024 Systolic Blood Pressure 111.00 mm[Hg] Johana Jul 02 21:02:29 EDT 2024 Diastolic Blood Pressure 66.00 mm[Hg] Johana Jul 02 21:02:29 EDT 2024 Systolic Blood Pressure 111.00 mm[Hg] Johana Jul 02 21:02:29 EDT 2024 Diastolic Blood Pressure 66.00 mm[Hg] Johana Jul 02 21:02:29 EDT 2024 Heart Rate 99.00 /min Johana Jul 02 21:02 :29 EDT 2024 Heart Rate 99.00 /min Johana Jul 02 21:02 :29 EDT 2024 Systolic Blood Pressure 113.00 mm[Hg] Johana Jul 02 16:37:54 EDT 2024 Diastolic Blood Pressure 69.00 mm[Hg] Johana Jul 02 16:37:54 EDT 2024 Heart Rate 87.00 /min Johana Jul 02 16:37 :54 EDT 2024 Body weight 216.80 [lb_av] Johana Jul 02 11:31 :41 EDT 2024 Systolic Blood Pressure 125.00 mm[Hg] Johana Jul 02 09:45:41 EDT 2024 Diastolic Blood Pressure 80.00 mm[Hg] Johana Jul 02 09:45:41 EDT 2024 Systolic Blood Pressure 125.00 mm[Hg] Johana Jul 02 09:45:41 EDT 2024 Diastolic Blood Pressure 80.00 mm[Hg] Johana Jul 02 09:45:41 EDT 2024 Systolic Blood Pressure 125.00 mm[Hg] Johana Jul 02 09:45:41 EDT 2024 Diastolic Blood Pressure 80.00 mm[Hg] Johana Jul 02 09:45:41 EDT 2024 Systolic Blood Pressure 125.00 mm[Hg] Johana Jul 02 09:45:41 EDT 2024 Diastolic Blood Pressure 80.00 mm[Hg] Johana Jul 02 09:45:41 EDT 2024 Heart Rate 91.00 /min Johana Jul 02 09:45 :41 EDT 2024 Heart Rate 91.00 /min Johana Jul 02 09:45 :41 EDT 2024 Heart Rate 91.00 /min Johana Jul 02 09:45 :41 EDT 2024 Body temperature 98.30 [degF] Johana Jul 02 09:4 5:41 EDT 2024 Respiratory rate 20.00 /min Johana Jul 02 09:4 5:41 EDT 2024 Pulse Oximetry 96.00 % Johana Jul 02 09:45 :41 EDT 2024 Pulse Oximetry 96.00 % Johana Jul 02 09:45 :41 EDT 5 Systolic Blood Pressure 111.00 mm[Hg] SatJul 01 23:27:57 EDT 2024 Diastolic Blood Pressure 68.00 mm[Hg] SatJul 01 23:27:57 EDT 2024 Heart Rate 78.00 /min SatJul 01 23:27 :57 EDT 2024 Body temperature 97.90 [degF] SatJul 01 23:2 7:57 EDT 2024 Respiratory rate 22.00 /min SatJul 01 23:2 7:57 EDT 2024 Pulse Oximetry 97.00 % SatJul 01 23:27 :57 EDT 2024 Pulse Oximetry 97.00 % SatJul 01 23:27 :57 EDT 2024 Pulse Oximetry 97.00 % SatJul 01 23:27 :57 EDT 2024 Systolic Blood Pressure 111.00 mm[Hg] SatJul 01 20:54:12 EDT 2024 Diastolic Blood Pressure 68.00 mm[Hg] SatJul 01 20:54:12 EDT 2024 Systolic Blood Pressure 111.00 mm[Hg] SatJul 01 20:54:12 EDT 2024 Diastolic Blood Pressure 68.00 mm[Hg] SatJul 01 20:54:12 EDT 2024 Heart Rate 78.00 /min SatJul 01 20:54 :12 EDT 2024 Heart Rate 78.00 /min SatJul 01 20:54 :12 EDT 2024 Systolic Blood Pressure 121.00 mm[Hg] SatJul 01 14:36:25 EDT 2024 Diastolic Blood Pressure 71.00 mm[Hg] SatJul 01 14:36:25 EDT 2024 Heart Rate 90.00 /min SatJul 01 14:36 :25 EDT 2024 Body weight 214.40 [lb_av] SatJul 01 13:02 :37 EDT 2024 Systolic Blood Pressure 105.00 mm[Hg] SatJul 01 09:47:44 EDT 2024 Diastolic Blood Pressure 68.00 mm[Hg] SatJul 01 09:47:44 EDT 2024 Systolic Blood Pressure 105.00 mm[Hg] SatJul 01 09:47:44 EDT 2024 Diastolic Blood Pressure 68.00 mm[Hg] SatJul 01 09:47:44 EDT 2024 [id number]|2024-08-06 12:35:00|2024-08-06 12:34:00|XMS_ITS|KRISTY MCKOY|External Medical Summaries|[id number]|" Data Portability Created on: August 06, 2024 Ping Waller .[id number] : [id number] Sex: Female Author Organization [employer] [facility], Main Office Address [address] [place] [address] Care Team Providers Care Dairy Clerk Name Role Phone P [facility] OTHER JAMILA PAVON Primary Care Provider Assessment Encounter Date Assessment Date Assessment LastModified by Organization Details LastModified Time 06/25/2024 06/25/2024 Metolazone x 5 days. KCl increase to 40 meq BID x 5 days, then back to 20 meq daily. Labs (CBC, CMP, BNP on 06/29. Not available 06/25/2024 14:49:22 06/29/2024 06/29/2024 Continues on Metolazone through 07/01. Labs (CBC, CMP, BNP) pending from this AM. Not available 06/29/2024 15:41:49 07/01/2024 07/01/2024 Completes Metolazone burst today. Monitor weights/edema/la bs. Not available 07/01/2024 15:13:32 07/03/2024 07/03/2024 Increase Trelegy to 200 mcg dosing. Increase Lasix to Bumex 1.5 mg daily. Labs on Saturday. Not available 07/04/2024 11:12:56 07/06/2024 07/06/2024 Pt will d/c home on 07/07 with C, family oversight, and private duty nursing. New/Adjusted prescriptions have been sent to her pharmacy. Not available 07/06/2024 17:08:51 Plan of Treatment Reminders Order Date Submit Date Provider Last Modified By Organization Details Last Modified Time Details Appointments None recorded. Lab None recorded. Referral None recorded. Procedures None recorded. Surgeries None recorded. Imaging None recorded. Medication Orders metoprolol tartrate [address] [id number], [address], [place], [id number], 17:09:51 diltiazem [address] [facility] #[id number], [address] [place] [address], [id number], 17:09:51 Trelegy Ellipta 200 mcg-62.5 mcg-25 mcg powder for inhalation 2024 [facility] #[id number], [address], [place], [id number], 17:09:49 bumetanide [address] [facility] #[id number], [address] [place] [address], [id number], 17:09:50 potassium chloride ER 20 mEq tablet,exte nded release 2024 [facility] #[id number], [address] [place] [address], [id number], 17:09:49 Patient TargetsNo targets recorded. Patient Instructions Encounter Date Encounter Id Patient Instructions Last Modified By Organization Details Last Modified Time 06/25/2024 [id number] I spent {{ 36#}} minutes providing care to the patient today. More than 50% of that time was spent in discussing the expected course of the disease, discussing prognosis, coordinating care and counseling of the patient/family. Not available 06/25/2024 14:53:37 06/29/2024 [id number] I spent {{ 36#}} minutes providing care to the patient today. More than 50% of that time was spent in discussing the expected course of the disease, discussing prognosis, coordinating care and counseling of the patient/family. Not available 06/29/2024 15:43:29 07/01/2024 [id number] I spent {{ 35#}} minutes providing care to the patient today. More than 50% of that time was spent in discussing the expected course of the disease, discussing prognosis, coordinating care and counseling of the patient/family. Not available 07/01/2024 15:14:33 07/03/2024 [id number] I spent {{ 36#}} minutes providing care to the patient today. More than 50% of that time was spent in discussing the expected course of the disease, discussing prognosis, coordinating care and counseling of the patient/family. Not available 07/04/2024 11:14:28 07/06/2024 [id number] I spent {{ 40#}} minutes providing care to the patient today. More than 50% of that time was spent in discussing the expected course of the disease, discussing prognosis, coordinating care and counseling of the patient/family. The patient will be discharged home with home health orders of home health RN / PT / OT to evaluate and treat. The patient is homebound because of {{gait instability poor balance fall risk* respiratory difficulties cogn itive impairment disori entation severe pain wounds}} and is unable to leave home safely because {{requires use of an assistive device and assistance of another person to leave home requires considerable and taxing effort to leave home* of cognitive impairment}}. The patient requires home health nursing for instruction, observation and assessment; PT for training to restore safe independent functional ambulation in community; and OT for training to improve ability to fulfill ADLs. Please follow-up with your primary care provider within 1 week. Call your primary care provider for instructions or go to the emergency room for new or worsening symptoms. [email or web address] Not available 07/06/2024 17:09:37 Reason for Referral None Reported. Results Created Date Observation Date Name Description Value Unit Range Abnormal Flag Note LastModifiedBy Organization Detail LastModifiedTime Result Notes None recorded. Procedures Surgical History Date Name Laterality Status Provider Name and Address Organization Details Recorded Time hysterectomy completed [facility] 06/17/2024 01:52:21 total replacement of right hip joint completed Aristides [facility] 06/17/2024 01:52:36 Appendectomy completed [facility] 06/17/2024 01:52:41 total shoulder replacement completed Aristides [facility] 06/17/2024 01:53:12 Carpal tunnel surgery completed [facility] 06/17/2024 01:53:23 Imaging Results None recorded. Procedure Notes None recorded. Medical Equipment None Reported. Allergies Allergen ID Allergen Name Allergen Category Reaction Reaction Severity Criticality Documentation Date Start Date Code Code System Note Provider Name and Address Organization Details Recorded Time 02027 Product containin g penicilli n (product) medicatio n Not available Not available Not available 06/17/2024 17170 8001 [facility]OMED [facility] 21708 thiopenta l Not available Not available Not available Not available 06/17/2024 [id number] Rx[facility] 01:45:29 Medications Name Sig Start Date Stop Date Status Note LastModified by Organization Details LastModified Time pramipexole 1 mg tablet Take 1 tablet every day by oral route. active Not Available Not Available No t Available furosemide 40 mg tablet Take 1 tablet every day by oral route. 07/04 completed Not Available Not Available Not Available metolazone 2.5 mg tablet Take 1 tablet every day by oral route for 5 days. 07/03 completed Stop Date: 07/01 Not Available Not Available Not Available albuterol sulfate 0.63 mg/3 mL solution for nebulizatio n Inhale 3 mL twice a day by inhalatio n route. active Not Available Not Available No t Available ipratropium 0.5 mg-albutero l 3 mg (2.5 mg base)/3 mL nebulizatio n soln Inhale 3 mL every 6 hours by nebulizat ion route as needed. active Not Available Not Available No t Available sertraline 100 mg tablet Take 1 tablet every day by oral route. active Not Available Not Available No t Available cyanocobala min (vit B-12) 1,000 mcg tablet Take 1 tablet every day by oral route. active Not Available Not Available No t Available acetaminoph en 500 mg tablet Take 2 tablets every 6 hours by oral route as needed. active Not Available Not Available No t Available famotidine 20 mg tablet Take 1 tablet twice a day by oral route. active Not Available Not Available No t Available ropinirole 0.5 mg tablet Take 1 tablet 3 times a day by oral route. active Not Available Not Available No t Available gabapentin 300 mg capsule Take 1 capsule 3 times a day by oral route. active Not Available Not Available No t Available balsalazide 750 mg capsule Take 3 capsules 3 times a day by oral route. active Not Available Not Available No t Available bumetanide 1 mg tablet TAKE 1 AND 1/2 TABLETS BY MOUTH EVERY DAY 2024 active Not Available Not Available Not Avai lable folic acid 1 mg tablet Take 1 tablet every day by oral route. active Not Available Not Available No t Available polyethylen e glycol 3350 17 gram/dose oral powder Take 17 g every day by oral route as needed. active Not Available Not Available No t Available diltiazem 60 mg tablet TAKE 1 TABLET BY MOUTH THREE TIMES DAILY 2024 active Not Available Not Available Not Avai lable Senna-S 8.6 mg-50 mg tablet Take 2 tablets twice a day by oral route as needed. active Not Available Not Available No t Available rosuvastati n 20 mg tablet Take 1 tablet every day by oral route. active Not Available Not Available No t Available metoprolol tartrate 25 mg tablet TAKE 1/2 TABLET BY MOUTH TWICE DAILY 2024 active Not Available Not Available Not Avai lable cholecalcif radha (vitamin D3) 25 mcg (1,000 unit) tablet Take 1 tablet every day by oral route. 06/22 completed Not Available Not Available Not Available cholecalcif radha (vitamin D3) 50 mcg (2,000 unit) tablet Take 1 tablet every day by oral route. active Not Available Not Available No t Available potassium chloride ER 20 mEq tablet,exte nded release Take 1 tablet twice a day by oral route. 2024 active Not Available Not Available Not Avai lable Trelegy Ellipta 100 mcg-62.5 mcg-25 mcg powder for inhalation Inhale 1 puff every day by inhalatio n route. 07/04 completed Not Available Not Available Not Available Trelegy Ellipta 200 mcg-62.5 mcg-25 mcg powder for inhalation Inhale 1 puff every day by inhalatio n route. 2024 active Not Available Not Available Not Avai lable Vitals Date Recorded Body height Heart rate Body temperature Respiratory rate Oxygen saturation Oxygen saturation in Arterial blood by Pulse oximetry Inhaled oxygen flow rate Body mass index (BMI) Body weight Systolic blood pressure Diastolic blood pressure Provider Name and Address Organization Details Last Updated DateTime 162.56 cm 84 /min 98.7 [degF] 20 /min 90 % 90 % 3 L/min 37.7 kg/m2 08740.1 7 g 128 mm[Hg] 71 mm[Hg] [place] [address] [place], [address] [place], [place] [employer] 14:38:24 Date Recorded Body height Heart rate Body temperature Respiratory rate Oxygen saturation Oxygen saturation in Arterial blood by Pulse oximetry Inhaled oxygen flow rate Body mass index (BMI) Body weight Systolic blood pressure Diastolic blood pressure Provider Name and Address Organization Details Last Updated DateTime 162.56 cm 74 /min 98.3 [degF] 18 /min 96 % 96 % 4 L/min 36.4 kg/m2 50128.8 6 g 117 mm[Hg] 77 mm[Hg] [place] [address] [place], [address] [place], [place] [employer] 09:59:41 Date Recorded Body height Heart rate Body temperature Respiratory rate Oxygen saturation Oxygen saturation in Arterial blood by Pulse oximetry Inhaled oxygen flow rate Body mass index (BMI) Body weight Systolic blood pressure Diastolic blood pressure Provider Name and Address Organization Details Last Updated DateTime 162.56 cm 90 /min 98.5 [degF] 20 /min 92 % 92 % 4 L/min 36.8 kg/m2 89859.2 g 121 mm[Hg] 71 mm[Hg] [place] [address] [place], [address], [facility] 14:57:30 Date Recorded Body height Heart rate Body temperature Respiratory rate Oxygen saturation Oxygen saturation in Arterial blood by Pulse oximetry Inhaled oxygen flow rate Body mass index (BMI) Body weight Systolic blood pressure Diastolic blood pressure Provider Name and Address Organization Details Last Updated DateTime 162.56 cm 99 /min 98.5 [degF] 18 /min 96 % 96 % 4 L/min 37.2 kg/m2 52146.8 3 g 111 mm[Hg] 66 mm[Hg] [place] [address] [place], [address], [facility] 09:51:16 Date Recorded Body height Heart rate Body temperature Respiratory rate Oxygen saturation Oxygen saturation in Arterial blood by Pulse oximetry Inhaled oxygen flow rate Body mass index (BMI) Body weight Systolic blood pressure Diastolic blood pressure Provider Name and Address Organization Details Last Updated DateTime 162.56 cm 84 /min 98.7 [degF] 20 /min 93 % 93 % 4 L/min 36.6 kg/m2 05667.5 3 g 110 mm[Hg] 76 mm[Hg] [place] [address] [place], [address], [facility] 10:53:58 Social History Question Answer Notes LastModified by Organizat [facility] Details LastModified Time Tobacco Smoking Status Former Smoker Aristides beyer, [facility] 06/17/2024 01:56:15 What Is Your Code Status? DNR mvandorn Information not available 06/19/2024 When Did You Quit Smoking? 16+yearssinc elastcigaret te Information not available 06/17/2024 Sex: Unknown Functional Status Question Answer Note LastModified by Organizat ion Details LastModified Time Do you use any illicit or recreational drugs? No Information not available 06/17/2024 What is your level of alcohol consumption? None Information not available 06/17/2024 Mental Status None recorded. Family History Relationship Description Onset Age of this Age Resolved Age Notes LastModified by Organization Details LastModified Time Mother Osteoporosis Not availa ble 06/17/2024 01:53:35 Mother Anemia Not available 01:53:43 Mother Mental disorder Not available 2024 01:53:49 Mother Rheumatoid arthritis Not available 2024 01:53:57 Mother Malignant neoplastic disease Not available 2024 01:54:07 Mother Alzheimer's disease Not available 2024 01:54:16 Unspecified Relation Malignant neoplasm of uterus patito g Not available 06/17/2024 01:54:43 Unspecified Relation Malignant tumor of cervix siblin g Not available 06/17/2024 01:54:57 Unspecified Relation Cerebrovascu lar accident Not available 01:55:13 Unspecified Relation History of cardiovascul ar disease Not available 06/17 01:55:18 Unspecified Relation Glaucoma Not available 06/18/19 01:55:29 Daughter Crohn's disease Not available 2024 01:55:05 Medical History Condition Response Osteoarthritis / DJD Y Urinary Tract Infection (UTI) Y Atrial Fibrillation Y Incontinence -- Urinary Y Chronic Kidney Disease (CKD) Y Congestive Heart Failure (CHF) Y Hyperlipidemia Y Psychiatric -- Depression Y Pulmonary Hypertension Y Myocardial Infarction (VA) Y Neuropathy Y Alcohol Abuse Y Hypertension Y COVID-19 Y Gynecological HistoryNo gynecological history recorded. Obstetrics History GPAL:G 0 P 0 0 0 0 Past Encounters Encounter ID Performer Location Encounter Start Date Encounter Closed Date Diagnosis/Indication Diagnosis SNOMED-CT Code Diagnosis ICD10 Code Diagnosis Note [id number] Meagan Menjivar DO [address] [place] [address] 06/17/2024 13:52:49 06/21/2024 03:24:15 Closed fracture of distal end of left radius 7786616449 6642827 S52.502D s/p ORIF 05/18 per hand/plast ics at [facility] remains NWB LUE with OCL splint in placeconti nue tylenol prn for painfu as scheduled with Dr. Shultz. Atrial fibrillation 4943 6004 I48.91 anticoagul ation has been heldcontin ue metoprolol and diltiazem for rate controlout patient cardiology fu as scheduled with Dr. 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 819476515 I13.0 continue diltiazem, metoprolol , lasixmonit or blood pressureso utpatient f/u with cardiology Coronary arteriosclerosis 97178413 I25.10 details unclear - patient denies recent chest pain and does not take nitro prn as outpatient continue current medication s regimen and f/u with cards as scheduled Chronic ob structive pulmonary disease 30632698 J44.9 on 4 liters/min cheesh-na of supplement al O2 at baselinesh e does not use CPAP at home and has been refusing at rehabShe has her cpap machine at the facility and we will encourage compliance while hereoutpat ient fu with pulmonaryc ontinue trelegy which is newly prescribed - adding back prn duonebs Crohn's disease 14794518 K50.90 continue balsalazid e and cathartics as orderedout patient fu with GI Vitamin deficiency 62445 002 E56.9 continue B12 and vitamin D replacemen t therapy Constipation 46905012 K5 9.00 the patient is on routine senna s and miralaxmon itor clinically and adjust accordingl y Major depr essive disorder 700939077 F32.9 continue sertraline Gastroesop hageal reflux disease without esophagitis 342101249 K21.9 stable - continue pepcid Idiopathic peripheral neuropathy 80735220 G60.9 continue neurontin and prn tylenol Fracture of orbit 856962 07 S02.31XD ENT did ORIF 05/19eye drops have been d/c'doutpa tient f/u with ENT Intraparen chymal hemorrhage of brain 745620828 I61.8 anticoagul ation has been heldNS followed her during her hospitaliz ationshe completed seizure prophylaxi s medscontin ue to monitor neuro statuscont inue therapiesf /u with neurosurge ry as scheduled 06/30 with repeat head imaging Restless legs 45400402 G 25.81 continue ropinirole and pramipexol e Acute urin zuleika tract infection 679837605 N39.0 per urine done on arrival at [facility] - culture grew >100,000 klebsiella sensitivit ies were not ran for 1st generation cephalospo rins which is what the patient was treated with while at [facility] (Ancef x 7 days)she currently has no urinary symptoms or other concerns for infectionw ill monitor clinically Physical deconditioning 0853221173 9102 R68.89 related to advanced age, recent fall, comorbidit iestherapi es are in place, she will return home with family support upon d/c from [id number] Meagan Menjivar, [address] [address] 06/22/2024 13:16:28 06/28/2024 20:30:53 Closed fracture of distal end of left radius 8696519439 9787993 S52.502D s/p ORIF 05/18 per hand/plast ics at [facility].She remains NWB LUE with OCL splint in place.Cont inue Tylenol PRN for pain.F/U as scheduled with Dr. Shultz on 06/23. Fracture of orbit 576720 07 S02.31XD ENT did ORIF on 05/19.Eye drops have been d/c'd.Outp atient f/u with ENT. Intraparen chymal hemorrhage of brain 687157993 I61.8 Anticoagul ation has been held.NS followed her during her hospitaliz ation.Comp leted seizure prophylaxi s meds.Gurpreet nue to monitor neuro status.Con tinue therapies. f/u with neurosurge ry as scheduled 06/30 with repeat head imaging. Atrial fibrillation 4943 6004 I48.91 Anticoagul ation has been held.Gurpreet nue Metoprolol and diltiazem for rate control.Ou tpatient cardiology f/u as scheduled with Dr. Radha Jimenez on 07/22. Congestive heart failure 47661320 I50.9 Continue Lasix and Metoprolol .Monitor edema -- may need additional diuretics. Continue to trend blood pressures, monitor lytes and renal function, and adjust meds as clinically indicated. Chronic ki dney disease 342187538 N18.9 Unclear baseline. Cr appears to be WNL for most of her recent hospitaliz ation.Avoi d nephrotoxi ns and trend labs. Hyperlipidemia 59884257 E78.5 Presumed stable. Continue statin. 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 Continue Diltiazem, Metoprolol , and Lasix.Cont inue to trend blood pressures, monitor lytes and renal function, and adjust meds as clinically indicated. outpatient f/u with cardiology as above. Coronary arteriosclerosis 84143501 I25.10 Details unclear. Patient denies recent chest pain and does not take nitro prn as outpatient .Continue current medication s regimen and f/u with cards as scheduled. Chronic ob structive pulmonary disease 12243200 J44.9 on 4 liters/min cheesh-na of supplement al O2 at baseline.S he does not use CPAP at home and has been refusing at rehab. She has her cpap machine at the facility and we will encourage compliance while here.Outpa tient f/u with pulmonary. Continue Trelegy, which is newly prescribed .Schedule Albuterol Nebs BID -- this is pt's OP orders (she admits to usually only doing once/day). Crohn's disease 10993077 K50.90 Continue Balsalazid e and cathartics as ordered.Ou tpatient f/u with GI. Vitamin deficiency 45591 002 E56.9 Continue B12 and vitamin D replacemen t therapy. Constipation 60593114 K5 9.00 Patient is on routine Senna S and Miralax.Mo nitor clinically and adjust accordingl y. Major depr essive disorder 224697986 F32.9 Stable. Continue Sertraline . Gastroesop hageal reflux disease without esophagitis 692594667 K21.9 Stable. Continue Pepcid. Idiopathic peripheral neuropathy 48906363 G60.9 Stable. Continue Neurontin and PRN Tylenol. Restless legs 23891910 G 25.81 Stable. Continue Ropinirole and Pramipexol e. Acute urin zuleika tract infection 594347791 N39.0 Per urine done on arrival at [facility], culture grew >100,000 klebsiella .Sensitivi ties were not ran for 1st generation cephalospo rins, which is what the patient was treated with while at [facility] (Ancef x 7 days).She currently has no urinary symptoms or other concerns for infection. Monitor clinically . Physical deconditioning 4930579559 9102 R68.89 Related to advanced age, recent fall, comorbidit ies.Therap ies are in place, she will return home with family support upon d/c from . [id number] Meagan Menjivar, [address] [address] 06/25/2024 10:24:52 07/06/2024 11:30:12 Closed fracture of distal end of left radius 0846983607 8963955 S52.502D s/p ORIF 05/18 per hand/plast ics Dr. Margy Walker at [facility].She was initially NWB to LUE with OCL splint in place. Was seen by Dr. Walker on 06/23, OCL splint removed and wrist brace placed in stead, which she is to wear at all times (remove for exercise & shower) x 2 weeks.Cont inue Tylenol PRN for pain.Sutur es removed at 06/23 appt. Incisions healed.F/U with Dr. Walker PRN. Fracture of orbit 932843 07 S02.31XD S/P ORIF on 05/19 per ENT.Eye drops have been d/c'd.Outp atient f/u with ENT. Intraparen chymal hemorrhage of brain 901451155 I61.8 Anticoagul ation has been held.NS followed her during her hospitaliz ation.Comp leted seizure prophylaxi s meds.Gurpreet nue to monitor neuro status.Con tinue therapies. f/u with neurosurge ry as scheduled 06/30 with repeat head imaging. Atrial fibrillation 4943 6004 I48.91 Anticoagul ation has been held.Gurpreet nue Metoprolol and Diltiazem for rate control.Ca rdiology f/u as scheduled with Dr. Radha Jimenez on 07/22. Congestive heart failure 21293667 I50.9 Continue Lasix and Metoprolol .Pt reports weight prior to hospitaliz ation was 198 lbs.Add Metolazone x 5 days.KCl increase to 40 meq BID x 5 days, then back to 20 meq daily.Labs (CBC, CMP, BNP on 06/29.Monito r edema, weights, and labs. Chronic ki dney disease 192127446 N18.9 Unclear baseline. Cr appears to be WNL for most of her recent hospitaliz ation.Avoi d nephrotoxi ns and trend labs. Hyperlipidemia 91583193 E78.5 Presumed stable. Continue statin. 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 Continue Diltiazem, Metoprolol , Lasix, and Potassium. Bursting with Metolazone as above.Cont inue to trend blood pressures, monitor lytes and renal function, and adjust meds as clinically indicated. Outpatient f/u with cardiology as above. Coronary arteriosclerosis 04030073 I25.10 Details unclear. Patient denies recent chest pain and does not take nitro prn as outpatient .Continue current medication s regimen and f/u with cards as scheduled. Chronic ob structive pulmonary disease 06935501 J44.9 on 4 liters/min cheesh-na of supplement al O2 at baseline.S he does not use CPAP at home and has been refusing at rehab as she says it is uncomforta ble due to her recent orbital fracture. She has her cpap machine at the facility and we will encourage compliance while here.Gurpreet nue Trelegy (new) and Albuterol BID routinely. Continue PRN Duonebs, as well.Outpa tient f/u with pulmonary. Crohn's disease 58164419 K50.90 Continue Balsalazid e and cathartics as ordered.Ou tpatient f/u with GI. Vitamin deficiency 93425 002 E56.9 Continue B12 and vitamin D replacemen t therapy. Constipation 24271380 K5 9.00 Patient is on routine Senna S and Miralax.Mo nitor clinically and adjust accordingl y. Major depr essive disorder 818191195 F32.9 Stable. Continue Sertraline . Gastroesop hageal reflux disease without esophagitis 811738532 K21.9 Stable. Continue Pepcid. Idiopathic peripheral neuropathy 81184523 G60.9 Stable. Continue Neurontin and PRN Tylenol. Restless legs 25096202 G 25.81 Stable. Continue Ropinirole and Pramipexol e. Acute urin zuleika tract infection 179220472 N39.0 Per urine done on arrival at [facility], culture grew >100,000 klebsiella .Sensitivi ties were not ran for 1st generation cephalospo rins, which is what the patient was treated with while at [facility] (Ancef x 7 days).She currently has no urinary symptoms or other concerns for infection. Monitor clinically . Physical deconditioning 1840689332 9102 R68.89 Related to advanced age, recent fall, comorbidit ies.Therap ies are in place, she will return home with family support upon d/c from . [id number] Meagan Menjivar [address] [address] 06/29/2024 09:59:14 07/06/2024 11:31:59 Congestive heart failure 75237465 I50.9 Continue Lasix, KCl, and Metoprolol .Pt reports weight prior to hospitaliz ation was 198 lbs. Weight is down 8 lbs in the last 5 days but still [+] 13 lbs.Contin ues on Metolazone through 07/01.Labs (CBC, CMP, BNP) pending from this AM.Monitor edema, weights, and labs. 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 Continue Diltiazem, Metoprolol , Lasix, and Potassium. Bursting with Metolazone as above.Cont inue to trend blood pressures, monitor lytes and renal function, and adjust meds as clinically indicated. Outpatient f/u with cardiology as above. Closed fra cture of distal end of left radius 4578879175 0238632 S52.502D s/p ORIF 05/18 per hand/plast ics Dr. Margy Walker at [facility].She was initially NWB to LUE with OCL splint in place. Was seen by Dr. Walker on 06/23, OCL splint removed and wrist brace placed in stead, which she is to wear at all times (remove for exercise & shower) x 2 weeks.Cont inue Tylenol PRN for pain.Sutur es removed at 06/23 appt. Incisions healed.F/U with Dr. Walker PRN. Fracture of orbit 562001 07 S02.31XD S/P ORIF on 05/19 per ENT.Eye drops have been d/c'd.Outp atient f/u with ENT. Intraparen chymal hemorrhage of brain 397074669 I61.8 Anticoagul ation has been held.NS followed her during her hospitaliz ation.Comp leted seizure prophylaxi s meds.Gurpreet nue to monitor neuro status.Con tinue therapies. f/u with neurosurge ry as scheduled 06/30 with repeat head imaging. Atrial fibrillation 4943 6004 I48.91 Anticoagul ation has been held.Gurpreet edgare Metoprolol and Diltiazem for rate control.Ca rdiology f/u as scheduled with Dr. Radha Jimenez on 07/22. Chronic ki dney disease 985613269 N18.9 Unclear baseline. Cr appears to be WNL for most of her recent hospitaliz ation.Avoi d nephrotoxi ns and trend labs. Hyperlipidemia 32575014 E78.5 Presumed stable. Continue statin. Coronary arteriosclerosis 35126970 I25.10 Details unclear. Patient denies recent chest pain and does not take nitro prn as outpatient .Continue current medication s regimen and f/u with cards as scheduled. Chronic ob structive pulmonary disease 36064236 J44.9 on 4 liters/min cheesh-na of supplement al O2 at baseline.S he does not use CPAP at home and has been refusing at rehab as she says it is uncomforta ble due to her recent orbital fracture. She has her cpap machine at the facility and we will encourage compliance while here.Gurpreet nue Trelegy (new) and Albuterol BID routinely. Continue PRN Duonebs, as well.Outpa tient f/u with pulmonary. Crohn's disease 66703768 K50.90 Continue Balsalazid e and cathartics as ordered.Ou tpatient f/u with GI. Vitamin deficiency 72442 002 E56.9 Continue B12 and vitamin D replacemen t therapy. Constipation 30157873 K5 9.00 Patient is on routine Senna S and Miralax.Mo nitor clinically and adjust accordingl y. Major depr essive disorder 494565517 F32.9 Stable. Continue Sertraline . Gastroesop hageal reflux disease without esophagitis 280319202 K21.9 Stable. Continue Pepcid. Idiopathic peripheral neuropathy 81217765 G60.9
--- OUTSIDE RECORDS SUMMARY | 2024-08-06 12:36 | XMS_ITS | Continuity of Care Document ---
Author Organization [facility] Address [address] [place] [address] Phone Care Team Providers Care Geriatric Social Worker Name Role Phone Guerrero Cho MD Unavailable [...] Copied on Encounter OFFICE/OUTPA TIENT VISIT EST [facility], [address] [place] [address], [address], tel:[phone] [facility] Status post reverse total arthroplasty of right shoulderAfter care following right shoulder joint replacement surgery 9 Marquis Masters. [address] [facility] [address], [place], [place], [id number] . tel: [phone] [facility], [address] [place] [address], [address], tel:[phone] [facility] s/p reverse right shoulder (chief complaint) Status post reverse total arthroplasty of right shoulder 8 Marquis Masters. [address], [place], [place], [id number] . tel: [phone] [facility], [address] [place] [address], [address], tel:[phone] [facility] Other specific arthropathies , not elsewhere classified, right shoulder 8 Marquis Masters. [address] [facility] [address], [place], [place], [id number] . tel: [phone] OFFICE/OUTPA TIENT VISIT EST [facility], [address] [place] [address], [address], [phone] [facility] Complete tear of right rotator cuffPrimary osteoarthriti s of right shoulder 0 8 Marquis Masters. [address], [place], [place], [id number] . tel: [phone] OFFICE/OUTPA TIENT VISIT EST [facility], [address] [place] [address], [address], [place] tel:[phone] [facility] [place] RT SHOULDER INJURY 7\ (chief complaint) Body mass index (BMI) 40.0-44.9, adultComplete tear of right rotator cuff 8 Sangita Abhinav. [address] [place] [address], [id number] . tel: [phone] Referring Provider: Juan David Patiño, [address] [place], [place], [address]. tel:[phone] OFFICE/OUTPA TIENT VISIT [facility], [address] [place] [address], [address], [place] tel:[phone] [facility] History of total right hip arthroplasty 8 Sangita La. [address] [place] [address], [id number] . tel: [phone] Referring Provider: Meagan Wren, PERMANENTLY CLOSED [address] [place], [place], [address]. tel:[phone] [facility], [address] [place] [address], [address], [place] tel:[phone] [facility] History of total right hip arthroplasty 7 Sangita La. [address] [place] [address], [id number] . tel: [phone] [facility], [address] [place] [address], [address], [place] tel:[phone] [facility] [place] R YANIRA 11/08/16 (chief complaint) History of total right hip arthroplasty 7 Michael Lemos. [address] [place] [address] [address], [place], [place], [id number] . tel: [phone] [facility], [address] [place] [address], [address], [phone] [facility] R YANIRA 11/08/16 (chief complaint) History of total right hip arthroplasty Sep-0 7 Michael Lemos. [address] [place] [address] [address], [place], [place], [id number] . tel: [phone] [facility], [address] [place] [address], [address], [place] tel:[phone] [facility] No Information Sangita La. [address] [place] [address], [id number] . tel: [phone] OFFICE/OUTPA TIENT VISIT EST [facility], [address] [place] [address], [address], tel:[phone] [facility] Follow Up of after right hip mri (chief complaint) Primary osteoarthriti s of right hipHip abductor tendinitis, right 7 Sangita La. [address] [place] [address], [id number] . tel: [phone] OFFICE/OUTPA TIENT VISIT [facility], [address] [place] [address], [address], [place] [phone] [facility] R hip (chief complaint) Body mass index (BMI) 38.0-38.9, adultPrimary osteoarthriti s of right hipHip abductor tendinitis, right 7 Sangita La. [address] [place] [address], [id number] . tel: [phone] Referring Provider: Kristel Villegas, [address], [place], [address]. tel:[phone] Family History Family Member Type Diagnosis Age At Onset Brother Problem (finding) Alive and well Immunizations Vaccine Date Status Comments Pneumo (2 yrs or older)(PPV) administered Source: Other Provider Payers Payer name Insurance type Covered constitution party ID Lela gong(s) Medicare E2 OT [id number] [place] Medicare Supplement E2 OT [id number] Social History Type Description Quantity Date [...] post reverse total arthroplasty of right shoulder Apply ice as tolerated. Related to Complete [...] risk home exerc ise program handout provided Weight monitoring Related to Bod y mass index (BMI) 40.0-44.9, adult Activity as tolerated Related to Complete tear [...]
--- OUTSIDE RECORDS SUMMARY | 2024-08-06 12:36 | XMS_ITS | Clinical Summary ---
Author Organization [facility] Address [address] [place] [address] Phone Care Team Providers Care Political Scientist Name Role Phone Juan David Yusuf MD Primary Care Provider [phone]- [phone] Allergies Active Allergy Reactions Criticality Noted Date [...] 6 Tablets 42 Tablet 01/30/2018 3:41 PM RIGGER THIRD 8 Active Active Problems Problem Noted Date [...] on file Legal Sex Female 3:33 AM RIGGER THIRD Gender Identity Not on file Sexual Orientation Not on file Last Filed Vital Signs Vital Sign Reading Time Taken Comments Blood Pressure 123/62 01/30/2018 12:28 PM RIGGER THIRD Pulse 74 01/30/2018 12:28 PM RIGGER THIRD Temperature 36.5 C (97.7 F) 01/30/2018 12:28 PM RIGGER THIRD Respiratory Rate 10 01/30/2018 12:28 PM RIGGER THIRD Oxygen Saturation 93% 01/30/2018 12:28 PM RIGGER THIRD Inhaled Oxygen Concentration - - Weight 116.6 kg (257 lb) 01/28/2018 8:16 AM RIGGER THIRD Height 167.6 cm (5' 6 ) 01/28/2018 8:16 AM RIGGER THIRD Body Mass Index 41.48 01/28/2018 8:16 AM RIGGER THIRD Plan of Treatment Health Maintenance Due Date Last Done Comments DTAP/TDAP/TD VACCINES (1 - Tdap) 12/21/1966 PNEUMOCOCCAL VACCINE 50+ YEARS (1 of 2 - PCV) 12/21/18 69 ZOSTER VACCINE (1 of 2) 12/21/1997 OSTEOPOROSIS SCREENING 12/21/2012 RSV VACCINE (60+ or ) (1 - 1-dose 75+ series) 12/21/2022 INFLUENZA VACCINE (#1) 2023 01/28/2018 Medical Devices Implanted Type Area Street Light Repairer Device Identifier Shelf Expiration Date Model / Serial / Lot Shell Ringlc+ Pc 54mm [id number] - [id number] Implanted:Qty: 1 on 11/08/2016 by Abhinav Quesada MD at [facility] Hip Right: Hip [employer] [id number] 09/27/2026 [id number] / / [id number] Liner Arcomxl Rnglc Sz24 Xl-[id number] - [id number] Implanted:Qty: 1 on 11/08/2016 by Abhinav Quesada MD at [facility] Hip Right: Hip [employer] [id number] 10/01/2020 [id number] / / [id number] Stem Fem Echo Bmtrc Por Red Lat [id number] - [id number] Implanted:Qty: 1 on 11/08/2016 by Abhinav Quesada MD at [facility] Hip Right: Hip [employer] [id number] 04/11/2025 [id number] / / [id number] Head Modular Noskt 36mm -3mm [id number] - [id number] Implanted:Qty: 1 on 11/08/2016 by Abhinav Quesada MD at [facility] Hip Right: Hip [employer] [id number] 09/25/2026 [id number] / / [id number] Rsp Glenoid Head W Retaining Screw Neutral Sz 32mm Implanted:Qty: 1 on 01/27/2018 by Guerrero Cho MD at [facility] Other Right: Shoulder [employer] 12/05/2023 508-32-10 1 / / [id number] Small Socket Insert 32mm Semi Constrained E Plus Implanted:Qty: 1 on 01/27/2018 by Guerrero Cho MD at [facility] Other Right: Shoulder [employer] 11/29/2022 509-03-03 2 / / [id number] Humeral Stem Small Shell [id number] Implanted:Qty: 1 on 01/27/2018 by Guerrero Cho MD at [facility] Other Right: Shoulder [employer] 11/22/2023 533-10-10 8 / / [id number] Description:All DJO Surgical shoulder components are processed on requisition,[id number]. Rsp Glenoid Baseplate Implanted:Qty: 1 on 01/27/2018 by Guerrero Cho MD at [facility] Screw Right: Shoulder [employer] [id number] 10/23/2023 508-32-20 4 / / [id number] Rsp Bone Screw Locking Sz 5.0mm 30mm Long Implanted:Qty: 1 on 01/27/2018 by Guerrero Cho MD at [facility] Screw Right: Shoulder [employer] 06/25/2023 506-03- 0 / / [id number] Rsp Bone Screw Locking Sz 5.0mm 22 Mm Long Implanted:Qty: 1 on 01/27/2018 by Guerrero Cho MD at [facility] Screw Right: Shoulder [employer] 08/17/2023 506-12 2 / / [id number] Bone Screw Rsp5.0x26mm Long Implanted:Qty: 1 on 01/27/2018 by Guerrero Cho MD at [facility] Screw Right: Shoulder [employer] 6 / / Rsp Bone Screw- Locking Implanted:Qty: 1 on 01/27/2018 by Guerrero Cho MD at [facility] Right: Shoulder [employer] 11/01/2023 506-03-11 [id number] Insurance MEDICARE PART A AND B BCBS SUPP RX AETNA Medicare Part D RX [facility] Medicare Part D Advance Directives For more information, please contact: [phone] Documents on File Type Date Recorded 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
[2024-08-06 13:38] LABS: Basophils Percent Auto 0.2 % (0.2-1.2); Eosinophils Absolute Auto 0.1 K/mm3 (0-0.3); Eosinophils Percent Auto 0.9 % (0-4.4); Hemoglobin 11.3 g/dL (12.0-15.0); Immature Granulocyte Absolute 0.04 K/mm3 (0.00-0.031); Immature Granulocyte Percent A 0.5 % (0-0.5); Lymphocytes Absolute Auto 0.83 K/mm3 (0.9-3.2); Lymphocytes Percent Auto 9.6 % (18.3-44.2); Mean Corpuscular HGB Conc 29.7 g/dl (32-36); Mean Corpuscular Hemoglobin 28.5 pg (26-34); Mean Corpuscular Volume 95.7 fl (80-100); Mean Platelet Volume 10.4 fl (7.4-10.4); Monocytes Absolute Auto 0.6 K/mm3 (0.1-0.6); Monocytes Percent Auto 6.5 % (2.6-8.5); Neutrophils Absolute Auto 7.1 K/mm3 (1.3-6.7); Neutrophils Percent Auto 82.3 % (45.5-73.1); Platelet Count Result 184 k/mm3 (150-375); Red Blood Count 3.97 M/mm3 (4.2-5.4); Red Cell Distribution Width 14.2 % (11.5-14.5); White Blood Count 8.6 K/mm3 (4.5-10.0)
[2024-08-06 14:00] LABS: LDL Cholesterol Direct 71 mg/dL
[2024-08-06 14:35] LABS: Alanine Aminotransferase 29 U/L (6-35); Albumin Level 4.2 g/dL (3.5-5.1); Alkaline Phosphatase 69 U/L (38-126); Aspartate Amino Transferase 51 U/L (14-36); Bilirubin,Total 1.2 mg/dL (0.2-1.3); Blood Urea Nitrogen 41 mg/dL (7-17); Calcium 8.9 mg/dL (8.4-10.2); Carbon Dioxide > 40 mmol/L (22-30); Chloride 84 mmol/L (98-107); Cholesterol 164 mg/dL (0-200); Estimated Glomerular Filt Rate 53; Glucose 114 mg/dL (65-110); HDL Direct 63 mg/dL; Potassium 2.8 mmol/L (3.4-5.0); Sodium 140 mmol/L (137-145); Triglycerides 53 mg/dL (<150)
[2024-08-06 14:44] LABS: Hypochromasia 1+; Platelet Estimate Adequate (Adequate)
[2024-08-06 14:45] LABS: Ovalocytes 1+; Schistocytes None Seen
[2024-08-06 16:28] LABS: Hemoglobin A1C 5.1 % (<5.7)
== END 2024-08-06 12:27 | disposition home or self-care (01) ==
PROVIDERS: PCP Family Medicine; Visit Provider Family Medicine
DX: I12.9 Hypertensive chronic kidney disease with stage 1 through stage 4 chronic kidney disease, or unspecified chronic kidney disease (principal); N18.30 Chronic kidney disease, stage 3 unspecified; E53.8 Deficiency of other specified B group vitamins; E78.2 Mixed hyperlipidemia; D64.9 Anemia, unspecified; R73.9 Hyperglycemia, unspecified
CPT/HCPCS: 36415; 80053; 80061; 82607; 83036; 85025

== ENCOUNTER 2024-08-07 13:12 | Outpatient (CLI) | payer MEDICARE, SELFPAY ==
--- OUTSIDE RECORDS SUMMARY | 2024-08-07 13:15 | XMS_ITS | Encounter Summary ---
Author Organization [employer] Address 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
--- OUTSIDE RECORDS SUMMARY | 2024-08-07 13:15 | XMS_ITS | Encounter Summary ---
Author Organization [facility] Address 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
--- OUTSIDE RECORDS SUMMARY | 2024-08-07 13:15 | XMS_ITS ---
Author Name Auto Generated, Auto Generated Organization [facility] Address [address] [place] [address] Phone [phone] Care Team Providers Care Electrolysis Operator Name Role Phone Camila Spence Unavailable [phone] Liseth Suherine Unavailable Meagan Turner Unavailable Functional Status No Results Mental Status No Results Allergies and Intolerances Name Onset Date Reaction Severity thiopental (Allergy) SatFeb 06 12:18:00 EST 202 3 penicillin (Allergy) SatFeb 06 12:18:00 EST 202 3 Encounters Program Name Primary Diagnosis Admission Date/Time Dis charge Date/Time [facility] SatJun 16 10:00:00 EDT 2024Jul 07 09:45:00 EDT 2024 [facility] SatAugust 19 13:00:00 EDT [...] Hours for 4 Days Indication: Pneumonia (2 [id number]) SatFeb 06 14:00:00 2022Feb 10 13:59:00 2022 [...] 2022 * End Date: * Text: * 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 * [id number] Ping receives a therapeutic diet. (12)* Code: * Start Date: SatJun 25 00:00:00 EDT 2024 * End Date: * Text: [id number] Ping receives a therapeutic diet. (12) * [...] and muscle weakness * GIANNAS_Urinary Incontinence1 - Pnig is occasionally incontinent.* Code: * Start Date: [...] :24 EDT 2024 Pulse Oximetry 94.00 % [place] Apr 01:05 :24 EDT 2024 Systolic Blood Pressure 122.00 mm[Hg] [facility] Apr 12 22:04:55 EDT 2024 Diastolic Blood Pressure 80.00 mm[Hg] [facility] 12 22:04:55 EDT 2024 Systolic Blood Pressure 122.00 mm[Hg] [facility] 12 22:04:55 EDT 2024 Diastolic Blood Pressure 80.00 mm[Hg] [facility] 12 22:04:55 EDT 2024 Heart Rate 94.00 /min [facility] 12 22:04 :55 EDT 2024 Heart Rate 94.00 /min [facility] 12 22:04 :55 EDT 2024 Body weight 212.80 [lb_av] [facility] Apr 12 17:09 :01 EDT 2024 Systolic Blood Pressure 119.00 mm[Hg] [facility] Apr 12 14:27:00 EDT 2024 Diastolic Blood Pressure 83.00 mm[Hg] [facility] Apr 12 14:27:00 EDT 2024 Heart Rate 98.00 /min [facility] 12 14:27 :00 EDT 2024 Systolic Blood Pressure 114.00 mm[Hg] [facility] Apr 12 11:56:23 EDT 2024 Diastolic Blood Pressure 66.00 mm[Hg] [facility] Apr 12 11:56:23 EDT 2024 Heart Rate 95.00 /min [facility] Apr 12 11:56 :23 EDT 2024 Body temperature 98.30 [degF] [facility] Apr 12 11:5 6:23 EDT 2024 Respiratory rate 18.00 /min [facility] Apr 12 11:5 6:23 EDT 2024 Pulse Oximetry 93.00 % [facility] Apr 12 11:56 :23 EDT 2024 Pulse Oximetry 93.00 % [facility] Apr 12 11:56 :23 EDT 2024 [...] 68.00 mm[Hg] SatJul 01 09:47:44 EDT 2024 [id number]|2024-08-07 13:15:00|2024-08-07 13:15:00|XMS_ITS|KRISTY MCKOY|External Medical Summaries|[id number]|" Encounter Summary Created on: August 07, 2024 ChristinJose salazarbrendan Montes : 1945 Sex: Female Author Organization [employer] Address 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
--- OUTSIDE RECORDS SUMMARY | 2024-08-07 13:16 | XMS_ITS | Continuity of Care Document ---
Author Organization [facility] Address [address] [place] [address] [address] [place] [address] Phone Care Team Providers Care Gore Stitcher Name Role Phone Guerrero Cho MD Unavailable [...] Copied on Encounter OFFICE/OUTPA TIENT VISIT EST [facility], [address] [place] [address], [address], tel:[phone] [facility] Status post reverse total arthroplasty of right shoulderAfter care following right shoulder joint replacement surgery 9 Marquis Masters. [address] [facility] [address], [place], [place], [id number] . tel: [phone] [facility], [address] [place] [address], [address], tel:[phone] [facility] s/p reverse right shoulder (chief complaint) Status post reverse total arthroplasty of right shoulder 8 Marquis Masters. [address], [place], [place], [id number] . tel: [phone] [facility], [address] [place] [address], [address], tel:[phone] [facility] Other specific arthropathies , not elsewhere classified, right shoulder 8 Marquis Masters. [address] [facility] [address], [place], [place], [id number] . tel: [phone] OFFICE/OUTPA TIENT VISIT EST [facility], [address] [place] [address], [address], [phone] [facility] Complete tear of right rotator cuffPrimary osteoarthriti s of right shoulder 0 8 Marquis Masters. [address], [place], [place], [id number] . tel: [phone] OFFICE/OUTPA TIENT VISIT EST [facility], [address] [place] [address], [address], [place] tel:[phone] [facility] [place] RT SHOULDER INJURY 7\ (chief complaint) Body mass index (BMI) 40.0-44.9, adultComplete tear of right rotator cuff 8 Sangita Abhinav. [address] [place] [address], [id number] . tel: [phone] Referring Provider: Juan David Patiño, [address] [place], [place], [address]. tel:[phone] OFFICE/OUTPA TIENT VISIT [facility], [address] [place] [address], [address], [place] tel:[phone] [facility] History of total right hip arthroplasty 8 Sangita La. [address] [place] [address], [id number] . tel: [phone] Referring Provider: Meagan Wren, PERMANENTLY CLOSED [address] [place], [place], [address]. tel:[phone] [facility], [address] [place] [address], [address], [place] tel:[phone] [facility] History of total right hip arthroplasty 7 Sangita La. [address] [place] [address], [id number] . tel: [phone] [facility], [address] [place] [address], [address], [place] tel:[phone] [facility] [place] R YANIRA 11/08/16 (chief complaint) History of total right hip arthroplasty 7 Michael Lemos. [address] [place] [address] [address], [place], [place], [id number] . tel: [phone] [facility], [address] [place] [address], [address], [phone] [facility] R YANIRA 11/08/16 (chief complaint) History of total right hip arthroplasty Sep-0 7 Michael Lemos. [address] [place] [address] [address], [place], [place], [id number] . tel: [phone] [facility], [address] [place] [address], [address], [place] tel:[phone] [facility] No Information Sangita La. [address] [place] [address], [id number] . tel: [phone] OFFICE/OUTPA TIENT VISIT EST [facility], [address] [place] [address], [address], tel:[phone] [facility] Follow Up of after right hip mri (chief complaint) Primary osteoarthriti s of right hipHip abductor tendinitis, right 7 Sangita La. [address] [place] [address], [id number] . tel: [phone] OFFICE/OUTPA TIENT VISIT [facility], [address] [place] [address], [address], [place] [phone] [facility] R hip (chief complaint) Body mass index (BMI) 38.0-38.9, adultPrimary osteoarthriti s of right hipHip abductor tendinitis, right 7 Sangita La. [address] [place] [address], [id number] . tel: [phone] Referring Provider: Kristel Villegas, [address] [employer], [place], [address]. tel:[phone] Family History Family Member Type Diagnosis Age At Onset Brother Problem (finding) Alive and well Immunizations Vaccine Date Status Comments Pneumo (2 yrs or older)(PPV) administered Source: Other Provider Payers Payer name Insurance type Covered alliance party ID Lela gong(s) Medicare E2 OT [id number] [place] Medicare Supplement E2 OT [id number] Social History Type Description Quantity Date [...] SHOULDER INJURY 7\3 R YANIRA 11/08/16 R YAINRA 11/08/16 Follow Up of after right hip [...]
--- OUTSIDE RECORDS SUMMARY | 2024-08-07 13:17 | XMS_ITS ---
Author Name Auto Generated, Auto Generated Organization [employer] [facility] Address [address] [place] [address] Phone [phone] Care Team Providers Care Traffic Reporter Name Role Phone Camila Spence Unavailable Liseth Suherine Unavailable Meagan Turner Unavailable [phone] Functional Status No Results Mental Status No Results Allergies and Intolerances Name Onset Date Reaction Severity thiopental (Allergy) SatFeb 06 12:18:00 EST 202 3 penicillin (Allergy) SatFeb 06 12:18:00 EST 202 3 Encounters Program Name Primary Diagnosis Admission Date/Time Dis charge Date/Time [facility] Term [facility] Unit SatJun 16 10:00:00 EDT 2024Jul 07 09:45:00 EDT 2024 [facility] Detention-[facility] Term Rehabilitation Unit SatAugust 19 13:00:00 EDT [...] Hours for 4 Days Indication: Pneumonia (2 [id number]) SatFeb 06 14:00:00 2022Feb 10 13:59:00 2022 [...] 2022 * End Date: * Text: * 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 (12)* Code: * Start Date: SatJun 25 00:00:00 EDT 2024 * End Date: * Text: [id number] iPng receives a therapeutic diet. (12) * GIANNASAmilcarSocial Allegra Feng's mobility level is different than prior level due to current medical condition.* Code: * Start Date: SatJun 29 00:00:00 EDT 2024 * End Date: * Text: LSS_Social ServicesRoger Feng's mobility level is different than prior level due to current medical condition. * GIANNASAmilcarSocial ServicesRoger Feng has a dx of depression and is currently on an antidepressant.* Code: * Start Date: SatJun 29 00:00:00 EDT 2024 * End Date: * Text: GIANNASAmilcarSocial ServicesRoger Feng has a dx of depression and is currently on an antidepressant. * LSS_Social Services- Ping will be involved in discharge planning.* Code: * Start Date: SatJun 29 00:00:00 EDT 2024 * End Date: * Text: LSS_Social Services- Ping will be involved in discharge planning. * LSS_Social Services- Ping will be involved in discharge planning.* Code: * Start Date: SatAug 23 00:00:00 EDT 2023 * End Date: * Text: LSS_Social Services- Ping will be involved in discharge planning. * Becky Feng has a dx of depression and is currently on an antidepressant.* Code: * Start Date: SatAug 23:00:00 EDT 2023 * End Date: * Text: Becky Feng has a dx of depression and is currently on an antidepressant. * NEGRITOSocial Allegra Feng's mobility level is different than prior level due to current medical condition.* Code: * Start Date: SatAug 23:00:00 EDT 2023 * End Date: * Text: Becky Feng's mobility level is different than prior level due to current medical condition. * NEGRITOSocial Allegra Feng has family/friends who are supportive.* Code: * Start Date: SatAug 23::00 EDT 2023 * End Date: * Text: NEGRITOSocial Allegra Feng has family/friends who are supportive. * NEGRITOSocial Allegra Feng will be involved in goal development to the best of his or her ability.* Code: * Start Date: SatAug 23::00 EDT 2023 * End Date: * Text: Becky Feng will be involved in goal development to the best of his or her ability. * NEGRITOSocial Allegra Feng has family/friends who are supportive.* Code: * Start Date: SatJun 29 00:00:00 EDT 2024 * End Date: * Text: Becky Feng has family/friends who are supportive. * NEGRITOSocial Allegra Feng will be involved in goal development to the best of his or her ability.* Code: * Start Date: SatJun 29 00:00:00 EDT 2024 * End Date: * Text: NEGRITOSocial Allegra Fneg will be involved in goal development to the best of his or her ability. * NEGRITOSocial Allegra Feng's wishes will be followed (Advanced Directive/Code Status).* Code: * Start Date: SatJun 29 00:00:00 EDT 2024 * End Date: * Text: NEGRITOSocial Allegra Feng's wishes will be followed (Advanced Directive/Code Status). * NEGRITOSocial Services- Ping's wishes will be followed (Advanced Directive/Code Status).* Code: * Start Date: SatAug 23 00:00:00 EDT 2023 * End Date: * Text: GIANNAS_Social Services- Ping's wishes will be followed (Advanced Directive/Code Status). * LSS_Urinary Incontinence1 - Ping is occasionally incontinent.* Code: * Start Date: SatJun 29 00:00:00 EDT 2024 * End Date: * Text: LSS_Urinary Incontinence1 - Ping is occasionally incontinent. * LSS_ADLs - Ping has ADL selfcare deficit related to decreased mobility and muscle weakness* Code: * Start Date: SatJun 29 00:00:00 EDT 2024 * End Date: * Text: LSS_ADLs - Ping has ADL selfcare deficit related to decreased mobility and muscle weakness * LSS_Skin Integrity - (Potential Alteration of)- Ping is at risk for developing impaired skin integrity.* Code: * Start Date: SatJun 29 00:00:00 EDT 2024 * End Date: * Text: LSS_Skin Integrity - (Potential Alteration of)- Ping is at risk for developing impaired skin integrity. * LSS_Falls - Ping is at risk for falls/injury as evidenced by: history of falls, cognitive status/behavior, vision status, continence, mobility, balance.* Code: * Start Date: SatJun 29 00:00:00 EDT 2024 * End Date: * Text: LSS_Falls - Ping is at risk for falls/injury as evidenced by: history of falls, cognitive status/behavior, vision status, continence, mobility, balance. * LSS_Psychotropic Drug Use - Use of psychotropic drug use places Ping at risk for drug-related side effects.* Code: * Start Date: SatJun 29 00:00:00 EDT 2024 * End Date: * Text: LSS_Psychotropic Drug Use - Use of psychotropic drug use places Ping at risk for drug-related side effects. * LSS_COPD - Ping has diagnosis of COPD.* Code: * Start Date: SatJun 29 00:00:00 EDT 2024 * End Date: * Text: GIANNAS_COPD Roger Feng has diagnosis of COPD. Resolved Concerns * Problem Other specified respiratory [...] :24 EDT 2024 Pulse Oximetry 94.00 % [facility] Apr 01:05 :24 EDT 2024 Systolic Blood Pressure 122.00 mm[Hg] [facility] Apr 12 22:04:55 EDT 2024 Diastolic Blood Pressure 80.00 mm[Hg] [facility] 12 22:04:55 EDT 2024 Systolic Blood Pressure 122.00 mm[Hg] [facility] 12 22:04:55 EDT 2024 Diastolic Blood Pressure 80.00 mm[Hg] [facility] 12 22:04:55 EDT 2024 Heart Rate 94.00 /min [facility] 12 22:04 :55 EDT 2024 Heart Rate 94.00 /min [facility] 12 22:04 :55 EDT 2024 Body weight 212.80 [lb_av] [facility] Apr 12 17:09 :01 EDT 2024 Systolic Blood Pressure 119.00 mm[Hg] [facility] Apr 12 14:27:00 EDT 2024 Diastolic Blood Pressure 83.00 mm[Hg] [facility] Apr 12 14:27:00 EDT 2024 Heart Rate 98.00 /min [facility] 12 14:27 :00 EDT 2024 Systolic Blood Pressure 114.00 mm[Hg] [facility] Apr 12 11:56:23 EDT 2024 Diastolic Blood Pressure 66.00 mm[Hg] [facility] Apr 12 11:56:23 EDT 2024 Heart Rate 95.00 /min [facility] Apr 12 11:56 :23 EDT 2024 Body temperature 98.30 [degF] [facility] Apr 12 11:5 6:23 EDT 2024 Respiratory rate 18.00 /min [facility] Apr 12 11:5 6:23 EDT 2024 Pulse Oximetry 93.00 % [facility] Apr 12 11:56 :23 EDT 2024 Pulse Oximetry 93.00 % [facility] Apr 12 11:56 :23 EDT 2024 Systolic [...] 68.00 mm[Hg] SatJul 01 09:47:44 EDT 2024 [id number]|2024-08-07 13:19:00|2024-08-07 13:17:00|XMS_ITS|KRISTY MCKOY|External Medical Summaries|[id number]|" Referral Summary Created on: August 07, 2024 Christin Ping J : 1945 Sex: Female Author Organization [facility] Address [facility] [place] [address] Care Team Providers Care Traffic Reporter Name Role Phone Meagan Yusuf MD Primary Care Provider + Annemarie Lea MD Unavailable [phone] Margy Walker MD PhD Unavailable [phone] Geraldine Barbosa NP Unavailable [phone] Encounters Date Type Department Care Team Description 08/06/2024 2:00 PM CDT Ancillary Procedure [facility] Cardiology at [address] [place] [phone] Nonrheumatic mitral valve regurgitation; Nonrheumatic tricuspid valve regurgitation 07/22/2024 9:30 AM CDT Office Visit [facility] Cardiology at [address] [place] [address] Radha Jimenez MD Nonrheumatic mitral valve regurgitation (Primary Dx); Nonrheumatic tricuspid valve regurgitation; Mixed hyperlipidemia; Labile hypertension; 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; Frequent falls; Persistent atrial fibrillation (HCC); Chronic anticoagulation; Chronic diastolic heart failure (HCC) 06/30/2024 10:00 AM CDT Office Visit [facility] Ophthalmology [address] [place] [address] [place] [phone] Leeann Horvath MD Orbital floor (blow-out) closed fracture (HCC) (Primary Dx); Mixed type age-related cataract, both eyes 06/23/2024 11:59 AM CDT - 06/23/2024 11:59 PM CDT Hospital Encounter [facility] [address] [place] [address] Discharge Disposition: Discharge to home or self care 06/23/2024 11:00 AM CDT Office Visit [facility] Surgery [address] [facility] 6th [place] [address] [place] [phone] Margy Walker MD PhD Fracture (Primary Dx); Other closed intra-articular fracture of distal end of left radius, initial encounter 06/15/2024 Telephone [facility] Surgery [address] [facility] 6th [place] [address] [place] [phone] Erica Velarde 06/09/2024 Telephone [facility] Scheduling [address] [place] [address] Nu Milian MD 05/31/2024 Telephone [facility] Ophthalmology [address] [place], [place] [phone] Leeann Horvath MD 05/28/2024 Documentation [facility] Surgeon [address] [place] [address] Lorena Beck NP 05/27/2024 Telephone [facility] ([facility]) - [facility] ENT [address] [facility] 11th [place] [address] [place] [phone] Sybil Burgess, 05/13/2024 12:53 AM SCRATCHER TENDER - 05/27/2024 7:22 PM SCRATCHER TENDER Hospital Encounter [facility] [address] [place] [address] Edwige Strickland MD Vallar, Kelly Jean, MD Smith, Eunice Hendrix, MD Croft, Irineo, MD Fall, initial encounter (Primary Dx); Closed fracture of right orbital floor, initial encounter (HCC); Frequent falls; Other closed intra-articular fracture of distal end of left radius, initial encounter Discharge Disposition: Discharge to an IP Rehab facility 05/19/2024 7:30 AM SCRATCHER TENDER - 05/19/2024 10:50 AM SCRATCHER TENDER Surgery [facility] Operating Room [address] [place] [address] Annemarie Lea MD OPEN REDUCTION INTERNAL FIXATION - ORBITAL FRACTURE 05/19/2024 7:51 AM SCRATCHER TENDER Anesthesia Event [facility] Operating Room [address] [place] [address] Mag Villatoro MD Ridenour, Rebekah Elizabeth, ALFONSO 05/18/2024 3:50 PM SCRATCHER TENDER - 05/18/2024 6:30 PM SCRATCHER TENDER Surgery [facility] Operating Room [address] [place] [address] Margy Walker MD PhD OPEN REDUCTION INTERNAL FIXATION RADIUS - DISTAL 05/18/2024 3:47 PM SCRATCHER TENDER Anesthesia Event [facility] Operating Room [address] [place] [address] Zack Rizvi MD Ridenour, Rebekah Elizabeth, ALFONSO 05/15/2024 Orders Only [facility] Neurosurgery [address] [facility] 6th [place] [address] [place] [address] Geraldine Barbosa NP Intraparenchymal hematoma of brain due to trauma, with unknown loss of consciousness status, unspecified laterality, subsequent encounter (Primary Dx); Fall, initial encounter 05/14/2024 [facility] ([facility]) - [facility] ENT [address] [facility] Advanced [facility] 11th [place] [address] [place] [address] Sybil Burgess MS 05/14/2024 7:55 AM SCRATCHER TENDER Ancillary Procedure [facility] Vascular Lab IP 1 [facility] [address] [place] [address] 05/13/2024 Ophth Exam [facility] Ophthalmology [address] [place] [address] 1st [place] [address] Gladys Manley MD from Last 3 Months [...] 05/23/2024 Assessment & Plan (05/26/2024 9:50 AM SCRATCHER TENDER): #COPD #TRAVIS, chronic #Chronic hypoxic respiratory failure [...] 05/23/2024 Assessment & Plan (05/27/2024 11:52 AM SCRATCHER TENDER): 3/ tx out ICU, PT/OT - 05/25: awaiting repeat swallow evaluation, calorie counts - 05/26: Continue Tfs at nightly, Calorie counts. Wean O2 back to home 4L. Not medically ready for discharge. 05/27: Patient is medically stable for discharge, SW/CM updated. Discharge pending facility bed availability Treatment note 05/14 [x] Feeding difficulties 05/22/2024 Assessment & Plan (05/27/2024 11:55 AM SCRATCHER TENDER): SBFT placed by ENT 05/21 TFs commenced [...] NPO, resumed tube feeds, ordered for repeat ETHYLBENZENE CONVERTER OPERATOR evaluation. Recommend up in chair for all meals and 1:1 assistance during meals pending ETHYLBENZENE CONVERTER OPERATOR evaluation. Discussed with patient and nurse to inform provider of any change in clinical exam or vital signs. 05/25: repeat Swallow- regular diet, regular thin liquids assistance with meals, calorie counts ordered, cycle tube feeding over PM MBS (05/27): swallow mechanism is normal Respiratory distress 05/20/2024 Assessment & Plan (05/27/2024 11:55 AM SCRATCHER TENDER): Transferred to SICU 05/18 ON after respiratory [...] 05/14/2024 Assessment & Plan (05/15/2024 2:15 PM SCRATCHER TENDER): - Orthostatic vital signs (05/14): negative - [...] 05/14/2024 Assessment & Plan (05/14/2024 12:48 PM SCRATCHER TENDER): - Tylenol 1g q6h - Gabapentin 300mg TID - Robaxin 500mg TID PRN - Oxycodone 5mg q4h PRN Closed fracture of distal end of left radius Assessment & Plan (05/27/2024 11:55 AM SCRATCHER TENDER): - Plastics consult - L hand/wrist xr [...] 05/14/2024 Assessment & Plan (05/25/2024 11:39 AM SCRATCHER TENDER): - Magnesium (05/14): 1.9mg/dL - 05/14: replete Magnesium 2g IV - Magnesium (05/15): 2.0mg/dL - Magnesium (05/20): 2.2mg/dL - Magnesium (05/25): 2.0mg/dL - continue to trend Magnesium Fall, initial encounter 05/13/2024 Assessment & Plan (05/15/2024 10:18 AM SCRATCHER TENDER): Syncopal workup given unclear mechanism (TTE, carotid [...] months Assessment & Plan (05/27/2024 11:52 AM SCRATCHER TENDER): Ophtho c/s ---HOB elevation, open-mouth sneezing, no [...] to be tasked with Dr Lea's team. [phone] Antibiotics Ancef 7day (complete) Intraparenchymal hematoma of brain due to trauma 05/13/2024 Assessment & Plan (05/23/2024 4:06 PM SCRATCHER TENDER): - Neurosurgery consult - Repeat head CT [...] 05/13/2024 Assessment & Plan (05/25/2024 11:36 AM SCRATCHER TENDER): - Hold Xarelto - home diltiazem 180 [...] 05/13/2024 Assessment & Plan (05/24/2024 3:43 PM SCRATCHER TENDER): Grade II diastolic dysfunction -EF 70%, moderate pulmonary hypertension (09/2021) 3: resumed home diltiazem. CTM BP and resume home lasix when appropriate. Restless leg syndrome 05/13/2024 Assessment & Plan (05/13/2024 2:32 PM SCRATCHER TENDER): - Continue home ropinrole and pramipexole, gabapentin Mood disorder 05/13/2024 Assessment & Plan (05/13/2024 2:37 PM SCRATCHER TENDER): Continue home zoloft Heart failure with mildly re duced ejection fraction (HFmrEF) 01/15/2024 Assessment & Plan (05/27/2024 11:57 AM SCRATCHER TENDER): #HTN, chronic #HFrEF, chronic #Severe MR #Severe TI #Severe pulmonary hypertension - TTEs as above - Home O2 4L - Follows with [facility] Cardiology - Home Diltiazem, Entresto, Lasix (1/2 dose) and metoprolol continued Persistent atrial fibrillation 02/20/2022 Noncompliance with medicatio n treatment due to intermittent use of medication 12/18/2021 Morbid (severe) obesity due to excess calories 0 07/05/2021 Labile hypertension 03/23/2021 Hypotension due to drugs 03/23/2021 Coronary artery disease invo lving sycuan coronary artery of sycuan heart without angina pectoris 02/10/2021 Mixed hyperlipidemia 02/10/2021 Chronic obstructive pulmonary disease 02/10/2021 Chronic respiratory failure with hypoxia 021 TRAVIS on CPAP 02/10/2021 Frequent falls 02/10/2021 Resolved Problems Problem Noted Date Diagnosed Date Resolved Date COPD (chronic obstructive pulmonary disease) 05/23/2024 Assessment & Plan (05/13/2024 2:35 PM SCRATCHER TENDER): - home meds: albuterol, ipratopium-albuterol Discharge planning issues 05/13/2024 Assessment & Plan (05/18/2024 2:27 PM SCRATCHER TENDER): - 05/14: orthostatic vital signs pending, syncope workup pending, awaiting PT/OT - 05/15: atrial fibrillation with RVR over PM, ECHO pending. Possible OR on 05/18 05/16 pending OR with Plastics on Saturday and Saturday. Echo completed EF 52% with extensive cardiac anomalies all stable. 05/18: Pending OR with PRS and ENT Treatment plan note [x] Chronic anticoagulation 07/18/2022 04/3 H/O cardiomyopathy 12/18/2021 4 Chronic heart failure [...] on file Legal Sex Female 4:29 PM SCRATCHER TENDER Gender Identity Not on file Sexual Orientation Not on file Last Filed Vital Signs Vital Sign Reading Time Taken Comments Blood Pressure 120/72 07/22/2024 9:18 AM CDT Pulse 81 07/22/2024 9:18 AM CDT Temperature 37.1 C (98.8 F) 05/27/2024 3:28 PM SCRATCHER TENDER Respiratory Rate 20 05/27/2024 11:49 AM SCRATCHER TENDER Oxygen Saturation 92% 07/22/2024 9:18 AM CDT 4L O2 Inhaled Oxygen Concentration - - Weight 102.5 kg (226 lb) 07/22/2024 9:18 AM CDT Height 165.1 cm (5' 5 ) 07/22/2024 9:18 AM CDT Body Mass Index 37.61 07/22/2024 9:18 AM CDT Plan of Treatment Not on file Medical Devices Implanted Type Area Warp Placer Device Identifier Shelf Expiration Date Model / Serial / Lot Implantech Sheeting Silastic Non Reinforced Alliedsil [id number] Silicone -700-40 - [id number] Implanted:Qty: 1 on 05/19/2024 by Annemarie Lea MD at [facility] Other - see comments Right: Face Implantech 07/03/2028- / / Luis Carlos Craniomaxillofacial Craniomaxillofacial Right 3d Large Implant Orbital Medpor Titan 92969 - [id number] Implanted:Qty: 1 on 05/19/2024 by Annemarie Lea MD at [facility] Other - see comments Right: Face Creston Craniomaxillofacial 08/19/2032 92540 / / [place]on Craniomaxillofacial 1.2mm 4mm Self Drill Axial Stability Lower Profile Screw Bone 56-01649 - [id number] Implanted:Qty: 1 on 05/19/2024 by Annemarie Lea MD at [facility] Other - see comments Right: Face Luis Carlos Craniomaxillofacial 56-1290 4 / / Medartis Inc Plt 2.5 Adaptive Ii Trilock Dist Rad Vol L 10h Narrow T2.0 A-4750.101 - [id number] Implanted:Qty: 1 on 05/18/2024 by Margy Walker MD PhD at [facility] Left: Wrist Medartis Inc A-4750. 101 / / Medartis Inc 2.5mm 18mm Lock Cortical Screw Bone A-5750.18 - [id number] Implanted:Qty: 1 on 05/18/2024 by Margy Walker MD PhD at [facility] Left: Wrist [employer] A-5750. 18 / / [employer] 2.5mm 22mm Lock Cortical Screw Bone A-5750.22 - [id number] Implanted:Qty: 2 on 05/18/2024 by Margy Walker MD PhD at [facility] Left: Wrist [employer] A-5750. 22 / / [employer] 2.5mm 20mm Lock Cortical Screw Bone A-5750.20 - [id number] Implanted:Qty: 3 on 05/18/2024 by Margy Walker MD PhD at [facility] Left: Wrist [employer] A-5750. 20 / / Medartis Inc Aptus 2.5mm 14mm Lock Cortical Screw Bone A-5750.14 - [id number] Implanted:Qty: 2 on 05/18/2024 by Margy Walker MD PhD at [facility] Left: Wrist [employer] A-5750. 14 / / [employer] Aptus 2.5mm 14mm Cortical Screw Bone A-5700.14 - [id number] Implanted:Qty: 1 on 05/18/2024 by Margy Walker MD PhD at [facility] Left: Wrist [employer] Inc A-5700. 14 / / Medartis Inc 2.5mm 12mm Lock Cortical Screw Bone A-5750.12 - [id number] Implanted:Qty: 1 on 05/18/2024 by Margy Walker MD PhD at [facility] Left: Wrist [employer] A-5750. 12 / / Explanted Type Area Warp Placer Device Identifier Shelf Expiration Date Model / Serial / Lot Medartis Inc Aptus 2.5mm 16mm Cortical Screw Bone A-5700.16 - [id number] Explanted:Qty: 1 on 05/18/2024 by Margy Walker MD PhD at [facility] Left: Wrist Med[employer]is Inc A-5700 .16 / / Medartis Inc 2.5mm 18mm Lock Cortical Screw Bone A-5750.18 - [id number] Explanted:Qty: 1 on 05/18/2024 at [facility] Left: Wrist Med[employer] Inc A-5750 .18 / / Procedures Procedure Name Priority Date/Time Associated Diagnosis Comments TRANSTHORACIC ECHO (TTE) COMPLETE W DOPPLER/CF WO CONTRAST Routine 08/06/2024 2:36 PM CDT Nonrheumatic mitral valve regurgitation Nonrheumatic tricuspid valve regurgitation XR WRIST LEFT 3 OR MORE VIEWS Schedule Routine, Read Routine (OP Routine) 06/23/2024 12:07 PM CDT Fracture FL MODIFIED BARIUM SWALLOW W VIDEO IP Routine 05/27/2024 10:35 AM SCRATCHER TENDER EGFR Routine 05/26/2024 9:12 PM SCRATCHER TENDER BASIC METABOLIC PANEL Routine 05/26/2024 9:12 PM SCRATCHER TENDER CBC WITHOUT DIFFERENTIAL Routine 025 9:12 PM SCRATCHER TENDER MAGNESIUM Routine 05/26/2024 9:12 PM SCRATCHER TENDER PHOSPHORUS Routine 05/26/2024 9:12 PM SCRATCHER TENDER PEP THERAPY Routine 05/26/2024 12:01 PM SCRATCHER TENDER PEP THERAPY Routine 05/26/2024 6:01 AM SCRATCHER TENDER PEP THERAPY Routine 05/26/2024 12:00 AM SCRATCHER TENDER EGFR Routine 05/25/2024 9:54 PM SCRATCHER TENDER BASIC METABOLIC PANEL Routine 05/25/2024 9:54 PM SCRATCHER TENDER CBC WITHOUT DIFFERENTIAL Routine 025 9:54 PM SCRATCHER TENDER MAGNESIUM Routine 05/25/2024 9:54 PM SCRATCHER TENDER PHOSPHORUS Routine 05/25/2024 9:54 PM SCRATCHER TENDER PEP THERAPY Routine 05/25/2024 6:00 PM SCRATCHER TENDER PEP THERAPY Routine 05/25/2024 12:00 PM SCRATCHER TENDER PEP THERAPY Routine 05/25/2024 6:01 AM SCRATCHER TENDER PEP THERAPY Routine 05/25/2024 12:00 AM SCRATCHER TENDER ECG 12-LEAD STAT 05/24/2024 10:55 PM SCRATCHER TENDER EGFR Routine 05/24/2024 8:54 PM SCRATCHER TENDER BASIC METABOLIC PANEL Routine 05/24/2024 8:54 PM SCRATCHER TENDER CBC WITHOUT DIFFERENTIAL Routine 025 8:54 PM SCRATCHER TENDER MAGNESIUM Routine 05/24/2024 8:54 PM SCRATCHER TENDER PHOSPHORUS Routine 05/24/2024 8:54 PM SCRATCHER TENDER PEP THERAPY Routine 05/24/2024 6:00 PM SCRATCHER TENDER PEP THERAPY Routine 05/24/2024 12:00 PM SCRATCHER TENDER PEP THERAPY Routine 05/24/2024 6:00 AM SCRATCHER TENDER PEP THERAPY Routine 05/24/2024 12:00 AM SCRATCHER TENDER ECG 12-LEAD Routine 05/23/2024 11:24 PM SCRATCHER TENDER EGFR Routine 05/23/2024 8:13 PM SCRATCHER TENDER BASIC METABOLIC PANEL Routine 05/23/2024 8:13 PM SCRATCHER TENDER CBC WITHOUT DIFFERENTIAL Routine 025 8:13 PM SCRATCHER TENDER MAGNESIUM Routine 05/23/2024 8:13 PM SCRATCHER TENDER PHOSPHORUS Routine 05/23/2024 8:13 PM SCRATCHER TENDER PEP THERAPY Routine 05/23/2024 6:00 PM SCRATCHER TENDER PEP THERAPY Routine 05/23/2024 12:00 PM SCRATCHER TENDER CRITICAL CARE Routine 05/23/2024 6:40 AM SCRATCHER TENDER Fall, initial encounter PEP THERAPY Routine 05/23/2024 6:00 AM SCRATCHER TENDER PEP THERAPY Routine 05/23/2024 12:01 AM SCRATCHER TENDER POCT GLUCOSE DEVICE Routine 05/22/2024 11:10 PM SCRATCHER TENDER EGFR Routine 05/22/2024 8:23 PM SCRATCHER TENDER BASIC METABOLIC PANEL Routine 05/22/2024 8:23 PM SCRATCHER TENDER CBC WITHOUT DIFFERENTIAL Routine 025 8:23 PM SCRATCHER TENDER MAGNESIUM Routine 05/22/2024 8:23 PM SCRATCHER TENDER PHOSPHORUS Routine 05/22/2024 8:23 PM SCRATCHER TENDER CRITICAL CARE Routine 05/22/2024 7:32 PM SCRATCHER TENDER Fall, initial encounter POCT GLUCOSE DEVICE Routine 05/22/2024 6:58 PM SCRATCHER TENDER PEP THERAPY Routine 05/22/2024 6:00 PM SCRATCHER TENDER IRON PROFILE W/ IBC STAT 05/22/2024 3:44 PM SCRATCHER TENDER POCT GLUCOSE DEVICE Routine 05/22/2024 3:03 PM SCRATCHER TENDER PEP THERAPY Routine 05/22/2024 12:00 PM SCRATCHER TENDER POCT GLUCOSE DEVICE Routine 05/22/2024 10:55 AM SCRATCHER TENDER POCT GLUCOSE DEVICE Routine 05/22/2024 7:01 AM SCRATCHER TENDER CRITICAL CARE Routine 05/22/2024 6:44 AM SCRATCHER TENDER Fall, initial encounter PEP THERAPY Routine 05/22/2024 6:01 AM SCRATCHER TENDER BLOOD GAS, ARTERIAL Routine 05/22/2024 4:31 AM SCRATCHER TENDER POCT GLUCOSE DEVICE Routine 05/22/2024 3:02 AM SCRATCHER TENDER PEP THERAPY Routine 05/22/2024 12:00 AM SCRATCHER TENDER POCT GLUCOSE DEVICE Routine 05/21/2024 10:54 PM SCRATCHER TENDER EGFR Routine 05/21/2024 8:54 PM SCRATCHER TENDER BLOOD GAS, ARTERIAL Routine 05/21/2024 8:54 PM SCRATCHER TENDER BASIC METABOLIC PANEL Routine 05/21/2024 8:54 PM SCRATCHER TENDER CBC WITHOUT DIFFERENTIAL Routine 025 8:54 PM SCRATCHER TENDER MAGNESIUM Routine 05/21/2024 8:54 PM SCRATCHER TENDER PHOSPHORUS Routine 05/21/2024 8:54 PM SCRATCHER TENDER XR CHEST 1 VIEW IP Routine 05/21/2024 8:36 PM SCRATCHER TENDER CRITICAL CARE Routine 05/21/2024 8:00 PM SCRATCHER TENDER Fall, initial encounter POCT GLUCOSE DEVICE Routine 05/21/2024 7:43 PM SCRATCHER TENDER PEP THERAPY Routine 05/21/2024 6:00 PM SCRATCHER TENDER BLOOD GAS, ARTERIAL STAT 05/21/2024 3:11 PM SCRATCHER TENDER POCT GLUCOSE DEVICE Routine 05/21/2024 3:10 PM SCRATCHER TENDER EXTUBATION Routine 05/21/2024 2:27 PM SCRATCHER TENDER PEP THERAPY Routine 05/21/2024 12:00 PM SCRATCHER TENDER POCT GLUCOSE DEVICE Routine 05/21/2024 11:14 AM SCRATCHER TENDER T4, FREE Routine 05/21/2024 9:07 AM SCRATCHER TENDER AMMONIA Routine 05/21/2024 9:07 AM SCRATCHER TENDER THYROID FUNCTION CASCADE Routine 025 9:07 AM SCRATCHER TENDER TRIGLYCERIDES Timed 05/21/2024 9:07 AM SCRATCHER TENDER POCT GLUCOSE DEVICE Routine 05/21/2024 7:24 AM SCRATCHER TENDER CRITICAL CARE Routine 05/21/2024 7:02 AM SCRATCHER TENDER Fall, initial encounter PEP THERAPY Routine 05/21/2024 6:01 AM SCRATCHER TENDER POCT GLUCOSE DEVICE Routine 05/21/2024 3:47 AM SCRATCHER TENDER XR CHEST 1 VIEW ED Urgent/IP Urgent 05/21/2024 12:12 AM SCRATCHER TENDER PEP THERAPY Routine 05/21/2024 12:00 AM SCRATCHER TENDER POCT GLUCOSE DEVICE Routine 05/20/2024 11:29 PM SCRATCHER TENDER XR ABDOMEN AP 1 VIEW ED Urgent/IP Urgent 05/20/2024 8:05 PM SCRATCHER TENDER EGFR Routine 05/20/2024 7:44 PM SCRATCHER TENDER BASIC METABOLIC PANEL Routine 05/20/2024 7:44 PM SCRATCHER TENDER CBC WITHOUT DIFFERENTIAL Routine 025 7:44 PM SCRATCHER TENDER MAGNESIUM Routine 05/20/2024 7:44 PM SCRATCHER TENDER PHOSPHORUS Routine 05/20/2024 7:44 PM SCRATCHER TENDER POCT GLUCOSE DEVICE Routine 05/20/2024 7:36 PM SCRATCHER TENDER CRITICAL CARE Routine 05/20/2024 6:22 PM SCRATCHER TENDER Fall, initial encounter PEP THERAPY Routine 05/20/2024 6:00 PM SCRATCHER TENDER POCT GLUCOSE DEVICE Routine 05/20/2024 3:33 PM SCRATCHER TENDER PEP THERAPY Routine 05/20/2024 12:00 PM SCRATCHER TENDER POCT GLUCOSE DEVICE Routine 05/20/2024 11:36 AM SCRATCHER TENDER POCT GLUCOSE DEVICE Routine 05/20/2024 7:28 AM SCRATCHER TENDER CRITICAL CARE Routine 05/20/2024 7:27 AM SCRATCHER TENDER Fall, initial encounter XR CHEST
--- OUTSIDE RECORDS SUMMARY | 2024-08-07 13:22 | XMS_ITS ---
"Electronically signed by: Dixon Valencia M.D. Narrative 05/13/2024 5:24 PM RESEARCH ADMINISTRATOR EXAMINATION: XR HAND LEFT 3 OR MORE [...] Urine with Reflex Confirmation (05/13/2024 3:11 PM RESEARCH ADMINISTRATOR) Amphetamine, ur Not Detected CutOff 500ng/mL Comment: Interpretive Data - Amphetamines: Samples containing greater than 500 ng/mL d-methamphetamine or other cross-reacting amphetamine compounds are reported as positive. Amphetamine immunoassays are subject to significant false positive rates due to cross-reactivity of non-amphetamine drugs. Confirmatory testing required for definitive results. Current Interpretive Data was last reviewed 2022. Barbiturates, ur Not Detected CutOff 200ng/mL [facility] Comment: Interpretive Data - Barbiturates: Samples containing greater than 200 ng/mL secobarbital or other cross-reacting barbiturate compounds are reported as positive. False positive and false negative results are possible. Confirmatory testing required for definitive results. Current Interpretive Data was last reviewed 2022. Benzodiazepines, ur Not Detected CutOff 100ng/mL [facility] Comment: Interpretive Data - Benzodiazepines: Samples containing greater than 100 ng/mL nordiazepam or other cross-reacting compounds are reported as positive. False positive and false negative results are possible. Confirmatory testing required for definitive results. Current Interpretive Data was last reviewed 2022. Cannabinoids, ur Not Detected CutOff 50 ng/mL [facility] Comment: Interpretive Data - Cannabinoids: Samples containing greater than 50 ng/mL delta-9 THC -COOH or other cross- reacting compounds are reported as positive. False positive and false negative results are possible. Confirmatory testing required for definitive results. Current Interpretive Data was last reviewed 2022. Cocaine, ur Not Detected CutOff 150ng/mL [facility] Comment: Interpretive Data - Cocaine: Samples containing greater than 150 ng/mL benzoylecgonine or other cross- reacting compounds are reported as positive. False positive and false negative results are possible. Confirmatory testing required for definitive results. Current Interpretive Data was last reviewed 2022. Fentanyl, Ur Not Detected CutOff 5 ng/mL [facility] Comment: Interpretive Data - Fentanyl: Samples containing greater than 5 ng/mL norfentanyl, fentanyl, or other cross-reacting fentanyl compounds are reported as positive. False positive and false negative results are possible. Confirmatory testing required for definitive results. Current Interpretive Data was last reviewed 2023. Methadone, ur Not Detected CutOff 300ng/mL [facility] Comment: Interpretive Data - Methadone: Samples containing greater than 300 ng/mL d,l-methadone or other cross-reacting compounds are reported as positive. False positive and false negative results are possible. Confirmatory testing required for definitive results. Current Interpretive Data was last reviewed 2022. Opiates, ur Not Detected CutOff 300ng/mL [facility] Comment: Interpretive Data - Opiates: Samples containing greater than 300 ng/mL morphine or other cross-reacting compounds are reported as positive. False positive and false negative results are possible. Confirmatory testing required for definitive results. Current Interpretive Data was last reviewed 2022. Oxycodone, ur Not Detected CutOff 100ng/mL [facility] Comment: Interpretive Data - Oxycodone: Samples containing greater than 100 ng/mL oxycodone or other cross-reacting compounds are reported as positive. False positive and false negative results are possible. Confirmatory testing required for definitive results. Current Interpretive Data was last reviewed 2022. Phencyclidine, ur Not Detected CutOff 25 ng/mL [facility] Comment: Interpretive Data - Phencyclidine: Samples containing greater than 25 ng/mL phencyclidine or other cross-reacting compounds are reported as positive. False positive and false negative results are possible. Confirmatory testing required for definitive results. Current Interpretive Data was last reviewed 2022. Urine Creatinine 60 mg/dL [facility] Comment: Interpretive Data Urine Creatinine: < 10 mg/dL is extremely dilute = or > 10 but < 20 mg/dL is dilute = or > 20 mg/dL is normal Current Interpretive Data was last revised on 2017. Urine 05/13/2024 3:11 PM RESEARCH ADMINISTRATOR 05/13/2024 4:54 PM RESEARCH ADMINISTRATOR Narrative [facility] - 05/13/2024 6:24 PM RESEARCH ADMINISTRATOR Drug of Abuse screening is performed by immunoassay for medical purposes only. This is not to be used for Pain Management purposes. If Detected, confirmation testing will be performed for Amphetamines, Cocaine, Fentanyl, Methadone, Opiates, Oxycodone or Phencyclidine. Edwige Strickland MD LAB URINE ORDERABLES Final Result [facility] Department [place] [address] * Critical Result Callback Chemistry (05/13/2024 3:11 PM RESEARCH ADMINISTRATOR) Date Notified [id number] Time Notified 1658 [facility] TestName pCO2 Ronnie [facility] Called/Read Back Damian Stephen [facility] Credentials MD [facility] FR[facility] Called By OCTAVIO FRYE Blood 05/13/2024 3:11 PM RESEARCH ADMINISTRATOR 05/13/2024 4:49 PM RESEARCH ADMINISTRATOR us Eunice Lynn MD LAB BLOOD ORDERABLES Final Re sult [facility] Department [place] [address] * (ABNORMAL) Blood gas, venous (05/13/2024 3:11 PM RESEARCH ADMINISTRATOR) pH, Venous 7.29(L) 7.32 - 7.43 PCO2, Venous 75(C) 40 - 50 mmHg [facility] PO2, Venous 49 mmHg [facility] Comment: Interpretive Data No Reference Range Established Current Interpretive Data was last revised on 2017. HCO3 Venous, Calculated 37(H) 20 - 30 mmol/L [facility] BE, venous 7 mmol/L [facility] Comment: Interpretive Data No Reference Range Established Current Interpretive Data was last revised on 2017. Blood 05/13/2024 3:11 PM RESEARCH ADMINISTRATOR 05/13/2024 4:49 PM RESEARCH ADMINISTRATOR us Enuice Lynn MD LAB BLOOD ORDERABLES Final Re sult [facility] [place] [address] * (ABNORMAL) POC Blood Gas and Chemistries, Venous - (05/13/2024 11:26 AM RESEARCH ADMINISTRATOR) pH, Ronnie POC 7.34 7.32 - 7.43 pCO2, ronnie POC 69(H) 40 - 50 mmHg [facility] pO2, ronnie POC 58 mmHg [facility] Na, POC 144 135 - 145 mmol/L [facility] K POC 4.5 3.3 - 4.9 mmol/L [facility] Comment: Interpretive Data Not all point of care methods assess for hemolysis. Confirm with instrument and retest K+ if not consistent with clinical signs and symptoms. Current Interpretive Data was last revised on 2023. Cl, POC 107 97 - 110 mmol/L [facility] Ionized Ca, POC 5.05 4.50 - 5.10 mg/dL [facility] Glucose, POC 91 70 - 199 mg/dL [facility] Lactate, POC 0.7 0.7 - 2.0 mmol/L [facility] MetHb, Ronnie POC 0.4 0.0 - 1.9 % [facility] O2 Sat, Ronnie POC (Katie) 90 % [facility] Base excess, POC 9.6 mmol/L [facility] Hct, POC 29.0(L) 36.3 - 45.3 % [facility] Total Hb, POC 9.5(L) 11.9 - 15.5 g/dL [facility] Blood 05/13/2024 11:2 6 AM RESEARCH ADMINISTRATOR 05/13/2024 11:26 AM RESEARCH ADMINISTRATOR us Eunice Lynn MD LAB POCT ORDERABLES - DEVICE Final Result [facility] Department [place] [address] * (ABNORMAL) Blood gas, venous (05/13/2024 11:23 AM RESEARCH ADMINISTRATOR) pH, Venous 7.32 7.32 - 7.43 PCO2, Venous 67(H) 40 - 50 mmHg [facility] PO2, Venous 61 mmHg [facility] Comment: Interpretive Data No Reference Range Established Current Interpretive Data was last revised on 2017. HCO3 Venous, Calculated 35(H) 20 - 30 mmol/L [facility] BE, venous 6 mmol/L [facility] Comment: Interpretive Data No Reference Range Established Current Interpretive Data was last revised on 2017. Blood 05/13/2024 11:2 3 AM RESEARCH ADMINISTRATOR 05/13/2024 11:44 AM RESEARCH ADMINISTRATOR us Eunice Lynn MD LAB BLOOD ORDERABLES Final Re sult [facility] Department [place] [address] * [place] CRITICAL CARE ILL/INJURED PATIENT INIT 30-74 MIN (05/13/2024 9:51 AM RESEARCH ADMINISTRATOR) Narrative Eunice Lynn MD - 05/13/2024 9:51 AM RESEARCH ADMINISTRATOR Eunice Lynn MD 05/15/2024 10:07 AM Critical [...] and Chemistries, Venous - (05/13/2024 8:37 AM RESEARCH ADMINISTRATOR) pH, Ronnie POC 7.32 7.32 - 7.43 pCO2, ronnie POC 75(C) 40 - 50 mmHg [facility] pO2, ronnie POC 40 mmHg [facility] Na, POC 144 135 - 145 mmol/L [facility] K POC 4.7 3.3 - 4.9 mmol/L [facility] Comment: Interpretive Data Not all point of care methods assess for hemolysis. Confirm with instrument and retest K+ if not consistent with clinical signs and symptoms. Current Interpretive Data was last revised on 2023. Cl, POC 107 97 - 110 mmol/L [facility] Ionized Ca, POC 5.05 4.50 - 5.10 mg/dL [facility] Glucose, POC 96 70 - 199 mg/dL [facility] Lactate, POC 0.7 0.7 - 2.0 mmol/L [facility] MetHb, Ronnie POC 0.3 0.0 - 1.9 % [facility] O2 Sat, Ronnie POC (Katie) 66 % [facility] Base excess, POC 10.4 mmol/L [facility] Hct, POC 30.0(L) 36.3 - 45.3 % [facility] Total Hb, POC 10.0(L) 11.9 - 15.5 g/dL [facility] Blood 05/13/2024 8:37 AM RESEARCH ADMINISTRATOR 05/13/2024 8:37 AM RESEARCH ADMINISTRATOR Brissa Ko MD LAB POCT ORDERABLES - DEVIC E Final Result [facility] [place] [address] * [place] CRITICAL CARE ILL/INJURED PATIENT INIT 30-74 MIN (05/13/2024 6:57 AM RESEARCH ADMINISTRATOR) Narrative Edwige Strickland MD - 05/13/2024 6:57 AM RESEARCH ADMINISTRATOR Edwige Strickland MD 05/13/2024 6:58 AM Critical [...] and discussed management with the admitting team. us Edwige Strickland MD IN CLINIC/BEDSIDE ORD ERABLES Final Result * Heparin anti factor Xa activity (05/13/2024 6:45 AM RESEARCH ADMINISTRATOR) Anti Factor Xa <0.10 IUnits/mL Comment: Interpretive [...] revised on 2018. Blood 05/13/2024 6:45 AM RESEARCH ADMINISTRATOR 05/13/2024 6:56 AM RESEARCH ADMINISTRATOR us Efren Castellanos MD LAB BLOOD ORDERABLE S Final Result Performing Organization Address City/State/ZIP Co wy Phone Number [facility] Department [place] [address] * CT Head WO Contrast (05/13/2024 5:53 AM RESEARCH ADMINISTRATOR) Anatomical Region Laterality Modality Head and Neck N/A Computed Tomogra phy 05/13/2024 6:11 AM RESEARCH ADMINISTRATOR Impressions 05/13/2024 8:26 AM RESEARCH ADMINISTRATOR 1. Unchanged subcentimeter focus of hyperattenuation within [...] Meagan Garcia M.D. Narrative 05/13/2024 8:26 AM RESEARCH ADMINISTRATOR EXAMINATION: CT head without contrast HISTORY: 78-year-old [...] (ABNORMAL) Blood gas, venous (05/13/2024 3:38 AM RESEARCH ADMINISTRATOR) pH, Venous 7.29(L) 7.32 - 7.43 PCO2, Venous 73(H) 40 - 50 mmHg [facility] PO2, Venous 58 mmHg [facility] Comment: Interpretive Data No Reference Range Established Current Interpretive Data was last revised on 2017. HCO3 Venous, Calculated 36(H) 20 - 30 mmol/L [facility] BE, venous 6 mmol/L [facility] Comment: Interpretive Data No Reference Range Established Current Interpretive Data was last revised on 2017. Blood 05/13/2024 3:38 AM RESEARCH ADMINISTRATOR 05/13/2024 3:44 AM RESEARCH ADMINISTRATOR Edwige Strickland MD LAB BLOOD ORDERABLES Final Result [facility] [place] [address] * XR Outside Reference (05/13/2024 3:26 AM RESEARCH ADMINISTRATOR) Impressions [facility] - 05/13/2024 3:26 AM RESEARCH ADMINISTRATOR These images are for Reference purposes only and have not been reviewed by [facility]. There will be no report generated by a [facility] Radiologist. Narrative [facility] - 05/13/2024 3:26 AM RESEARCH ADMINISTRATOR EXAMINATION: Images For Reference Purposes Only Efren Castellanos MD IMG XR PROCEDURES F inal Result Performing Organization Address [facility] de Phone Number [email or web address] * XR Outside Reference (05/13/2024 3:24 AM RESEARCH ADMINISTRATOR) Impressions [facility] - 05/13/2024 3:24 AM RESEARCH ADMINISTRATOR These images are for Reference purposes only and have not been reviewed by [facility]. There will be no report generated by a [facility] Radiologist. Narrative [facility] - 05/13/2024 3:24 AM RESEARCH ADMINISTRATOR EXAMINATION: Images For Reference Purposes Only Efren Castellanos MD IMG XR PROCEDURES F inal Result Performing Organization Address [facility] de Phone Number [email or web address] * XR Outside Reference (05/13/2024 3:22 AM RESEARCH ADMINISTRATOR) Impressions [facility] - 05/13/2024 3:22 AM RESEARCH ADMINISTRATOR These images are for Reference purposes only and have not been reviewed by [facility]. There will be no report generated by a [facility] Radiologist. Narrative [facility] - 05/13/2024 3:22 AM RESEARCH ADMINISTRATOR EXAMINATION: Images For Reference Purposes Only Efren Castellanos MD IMG XR PROCEDURES F inal Result Performing Organization Address [facility] de Phone Number [email or web address] * XR Outside Reference (05/13/2024 3:20 AM RESEARCH ADMINISTRATOR) Impressions [facility] - 05/13/2024 3:20 AM RESEARCH ADMINISTRATOR These images are for Reference purposes only and have not been reviewed by [facility]. There will be no report generated by a [facility] Radiologist. Narrative [facility] - 05/13/2024 3:20 AM RESEARCH ADMINISTRATOR EXAMINATION: Images For Reference Purposes Only Efren Castellanos MD IMG XR PROCEDURES F inal Result [facility] * Neuro CT Outside Consult (05/13/2024 3:17 AM RESEARCH ADMINISTRATOR) Anatomical Region Laterality Modality N/A Computed Tomogra phy 05/13/2024 5:34 AM RESEARCH ADMINISTRATOR Impressions 05/13/2024 8:26 AM RESEARCH ADMINISTRATOR 1. Focal 8 mm hyperdensity in the [...] images may or may not represent the [place] source data set and thus may contain changes that may lower the accuracy of this second-opinion interpretation. Dictated by: Wilfrid Garcia MD The radiology attending physician has personally reviewed this study, and had reviewed and/or edited this written report and agrees with it. Electronically signed by: Meagan Garcia M.D. Narrative 05/13/2024 8:26 AM RESEARCH ADMINISTRATOR EXAMINATION: RADIOLOGY CONSULTATION ON OUTSIDE IMAGING STUDY STUDY INITIALLY PERFORMED: 05/12/2024 at [facility]. TYPE OF STUDY: Multiple CT images [...] IMAGING STUDY STUDY INITIALLY PERFORMED: 05/12/2024 at [facility]. TYPE OF STUDY: Multiple CT images [...] images may or may not represent the [place] source data set and thus may contain changes that may lower the accuracy of this second-opinion interpretation. Dictated by: Wilfrid Garcia MD The radiology attending physician has personally reviewed this study, and had reviewed and/or edited this written report and agrees with it. Electronically signed by: Meagan Garcia M.D. us Efren Castellanos MD IMG CT PROCEDURES F inal Result * Neuro CT Outside Consult (05/13/2024 3:13 AM RESEARCH ADMINISTRATOR) Anatomical Region Laterality Modality N/A Computed Tomogra phy 05/13/2024 5:34 AM RESEARCH ADMINISTRATOR Impressions 05/13/2024 8:26 AM RESEARCH ADMINISTRATOR 1. Focal 8 mm hyperdensity in the [...] images may or may not represent the [place] source data set and thus may contain changes that may lower the accuracy of this second-opinion interpretation. Dictated by: Wilfrid Garcia MD The radiology attending physician has personally reviewed this study, and had reviewed and/or edited this written report and agrees with it. Electronically signed by: Meagan Garcia M.D. Narrative 05/13/2024 8:26 AM RESEARCH ADMINISTRATOR EXAMINATION: RADIOLOGY CONSULTATION ON OUTSIDE IMAGING STUDY STUDY INITIALLY PERFORMED: 05/12/2024 at [facility]. TYPE OF STUDY: Multiple CT images [...] IMAGING STUDY STUDY INITIALLY PERFORMED: 05/12/2024 at [facility]. TYPE OF STUDY: Multiple CT images [...] images may or may not represent the [place] source data set and thus may contain [...] CT Body Outside Consult (05/13/2024 3:10 AM RESEARCH ADMINISTRATOR) Anatomical Region Laterality Modality Body N/A Computed Tomogra phy [id number]|2024-08-07 13:22:00|2024-08-07 13:21:00|XMS_ITS|BKG DAEMON|External Medical Summaries|[id number]|" Data Portability Created on: August 07, 2024 Ping Waller .[id number] : [id number] Sex: Female Author Organization [place] [facility] OFFICE Address [address] [place] [address] Care Team Providers Care Wire Spiral Binder Name Role Phone JAMILA PAVON Primary Care [...] current medications, and medical follow-up as noted. [email or web address] Not available 10/26/2020 14:30:27 11/09/2020 11/09/2020 Discussed [...] Not available 17:10:42 electrocard iogram 2020 021 [email or web address] Not available 14:35:30 Medication Orders rosuvastati n 40 mg tablet 2020 021 [facility], [address], [place], [id number], 12:58:37 lisinopril 5 mg tablet 2020 [facility]32, [address], [place], [phone], 12:58:39 spironolact one 25 mg tablet 2020 [facility] #32846, [address], [place], [phone], 12:58:59 aspirin 81 mg tablet,lamont yed release 2020 [facility] #53558, [address], [place], [phone], 14:35:37 clopidogrel 75 mg tablet 2020 [facility] #32399, [address], [place], [phone], 14:35:38 rosuvastati n 20 mg tablet 2020 [facility] #08186, [address], [place], [phone], 14:35:39 metoprolol succinate ER 25 mg tablet,exte nded release 24 hr 2020 [facility] #37163, [address], [place], [id number], 14:35:39 potassium chloride ER 20 mEq tablet,exte nded release 2020 [facility], [address], [place], [id number], 14:35:37 furosemide 40 mg tablet 2020 [facility] #05462, [address], [place], [phone], 14:35:38 Patient TargetsNo targets recorded. Patient Instructions Encounter Date Encounter Id Patient Instructions Last Modified By Organization Details Last Modified Time 10/26/2020 [id number] high cholesterol : care instructions [email or web address] Not available 10/26/2020 14:35:29 When You Want to Lose Weight: Care Instructions [email or web address] Not available 10/26/2020 14:35:30 sleep apnea: car e instructions Not available 10/26/2020 14:35:30 high blood pressure: care instructions [email or web address] Not available 10/26/2020 14:35:30 learning about high blood pressure Not available 10/26/2020 14:35:30 11/09/2020 [id number] high cholesterol : care instructions [email or web address] Not available 11/09/2020 12:58:27 When You Want to Lose Weight: Care Instructions [email or web address] Not available 11/09/2020 12:58:27 sleep apnea: car e instructions [email or web address] Not available 11/09/2020 12:58:27 high blood pressure: care instructions [email or web address] Not available 11/09/2020 12:58:27 learning about high blood pressure [email or web address] Not available 11/09/2020 12:58:27 Reason for Referral None Reported. Results Created Date Observation Date Name Description Value Unit Range Abnormal Flag Note LastModifiedBy Organization Detail LastModifiedTime 10/26/19 21 elect rocar diogr am No observ ation record ed. [email or web address] Sharif Bustamante MD [address], [place], [address], 10/26/2020 14:26:29 10/28/19 21 10/01/2020 US, doppl er, venou s No observ ation record ed. Not Available 10/27 11:43:01 10/28/1909/30/2020 US, echoc ardio gram No observ ation record ed. Not Available 10/27 12:19:15 10/28/19 21 10/01/2020 elect rocar diogr am No observ ation record ed. Not Available 10/27 12:55:58 10/28/1909/30/2020 XR, chest , 1 view No observ ation record ed. Not Available 10/27 12:59:31 10/28/1910/03/[address] ment in coron [place] arter y(s) for coron [place] angio graph y; with left heart irais teriz ation inclu ding intra proce dural injec tion( s) for left ventr iculo graph y (PROC ) No observ ation record ed. [email or web address] Not Available 2020 13:24:48 11/08/1911/07/2020 elect rocar diogr am No observ ation record ed. елена Bustamante MD [address], [place], [address], 12/05/2020 17:10:42 11/17/19 21 10/26/2020 elect rocrosaline diogr am No observ ation record ed. [email or web address] Not Available 11/18 13:56:02 Result Notes Documentation Provider Name and Address Organization Details Recorded Time Lipid Panel, Blood : 10/28/20:Na 137,K 3.9,Cl 102,Co2 30,Glu 94,Bun 18,Cr 0.7,AST 33,ALT 11. 10/28/20:TC 190,TG 79,HDL 87,LDL 83. 10/28/20:WBC 5.4,RBC 3.83,HGB 11.4,HCT 36.7,PLT 108. Dominic Rodriguez [facility], [place] [facility] 11/14/2020 16:16:49 Lipid Panel, Blood : 10/28/20:Na 137,K 3.9,CL 102,CO2 30,Glu 94,Bun 18,Cr 0.7,AST 33,ALT 11. 10/28/20:TC 190,TG 79,HDL 87,LDL pending. Dominic beyer, [facility] 01/24/2021 13:55:17 Problems Name Problem SNOMED Code Status Onset Date Resolution Date Notes Provider Name and Address Organization Details Recorded Time Heart failure with reduced ejection fraction 833402665 Active 2020 Desmond beyer, [facility] 13:41:26 Essential hypertension 04476065 Active 2020 Desmond beyer, [facility] 13:48:17 Hyperlipidemia 95911435 Active 2020 Desmond Padilla [facility], [facility] 13:48:29 Obstructive sleep apnea syndrome 19309958 Active 2020 Desmond beyer, [facility] 13:48:37 Subsequent non-ST segment elevation myocardial infarction 147453255 Active 2020 Desmond beyer, [facility] 13:59:24 Obesity 497735588 Active 2020 Desmond Padilla [facility], [facility] 14:26:10 Problem Notes None recorded. Procedures Surgical History None recorded. Imaging Results Imaging Date Name Status LastModified by Organization Details LastModified Time 10/25/2020 electrocardiogram completed Sharif Basilio MD [address], [place], [address], 10/26/2020 14:26:29 10/01/2020 US, doppler, venous completed Infor mation not available 10/27/2020 11:43:01 09/30/2020 US, echocardiogram completed Inform ation not available 10/27/2020 12:19:15 10/01/2020 electrocardiogram completed Informa tion not available 10/27/2020 12:55:58 09/30/2020 XR, chest, 1 view completed [facility] [email or web address] Informa tion not available 10/27/2020 12:59:31 10/03/2020 catheter placement in coronary artery(s) for coronary angiography; with left heart catheterization including intraprocedural injection(s) for left ventriculography (PROC) completed [email or web address] Information not available 03/10/2021 13:24:48 11/07/2020 electrocardiogram completed елена Basilio MD [address] [facility] [address], [place], [address], 12/05/2020 17:10:42 10/26/2020 electrocardiogram [place] [id number] Informa tion not available 11/18/2020 13:56:02 Procedure [...] Not Available Not Available FreeStyle Gerard 2 [place] active Not Available Not Available Not Available Vitals Date Recorded Body height Body mass index (BMI) Body weight Heart rate Respiratory rate Oxygen saturation Oxygen saturation in Arterial blood by Pulse oximetry Systolic blood pressure Diastolic blood pressure Provider Name and Address Organization Details Last Updated DateTime 1 162.56 cm 42.6 kg/m2 325343. 91 g 70 /min 16 /min 92 % 92 % 114 mm[Hg] 82 mm[Hg] Jamila Jarquin [facility] 1 13:04:20 Date Recorded Body height Body mass index (BMI) Body weight Heart rate Oxygen saturation Oxygen saturation in Arterial blood by Pulse oximetry Inhaled oxygen flow rate Systolic blood pressure Diastolic blood pressure Provider Name and Address Organization Details Last Updated DateTime 1 162.56 cm 43.1 kg/m2 434808. 68 g 75 /min 97 % 97 % 4 L/min 118 mm[Hg] 84 mm[Hg] EDWIGE [place] [facility] 1 11:48:40 Social History None recorded. Functional Status Question Answer Note LastModified by Organization D etails LastModified Time What is your level of alcohol consumption? Moderate [email or web address] Information not available 10/26/2020 Mental Status None recorded. Family History Nothing Reported Notes:No premature [facility]. Medical History Condition Response Hyperlipidemia Y Hypertension Y Gynecological HistoryNo gynecological history recorded. Obstetrics History GPAL:G 0 P 0 0 0 0 Past Encounters Encounter ID Performer Location Encounter Start Date Encounter Closed Date Diagnosis/Indication Diagnosis SNOMED-CT Code Diagnosis ICD10 Code Diagnosis Note [id number] Desmond Padilla MD [facility] [address] [place] [address] 10/26/2020 12:49:39 10/26/2020 14:36:31 Heart failure with reduced ejection fraction 258828776 I50.21 Has nonischemi c cardiomyop athy, HF-rEF. She was in [facility] 09/30/20 with dyspnea, NSTEMI (peak [...] (RVSP 42 mmHg). Begin cardiac rehab at [facility]. Patient instructed to taper alcohol to off. Continue metoprolol and Lasix. Consider lisinopril and eventual spironolac tone. Obtain CMP, Mg, TSH, CBC, FLP. Hyperlipidemia 52503831 E78.5 Needs to keep LDL less than 70, and HDL more than 40. Obtain FLP. Obstructiv e sleep apnea syndrome 69673485 G47.33 She is now compliant with CPAP, with pulm. f/u. Essential hypertension 64566916 I10 Patient's blood pressure is {{well-con trolled* [...] diary. Subsequent non-ST segment elevation myocardial infarction 302193467 I22.2 Stable. Had [facility] 10/03/20: mild CAD (mLAD 40% followed by 50% disease which is diffuse from that point towards the end of the vessel), mild-moder ate LV systolic dysfunctio n (LVEF 40%) with nonischemi c cardiomyop athy. Continue ASA, Plavix, metoprolol , statin. Needs to keep LDL less than 70, and HDL more than 40. Maximal medical therapy. Obesity 398944285 E66.9 20 lb. weight loss recommende d over the next 2 months. [id number] Desmond Padilla MD [facility] [address] [place] [address] 11/09/2020 11:31:16 11/09/2020 13:02:04 Heart failure with reduced ejection fraction 938780687 I50.21 Has nonischemi c cardiomyop athy, HF-rEF. She was in [facility] 09/30/20 with dyspnea, NSTEMI (peak trop I 1.25), and CHF exacerbati on in setting of hypertensi ve urgency, COPD exacerbati on, untreated TRAVIS, left leg cellulitis (treated with doxycyclin e), possible pneumonia, diuresed with Lasix 40 mg bid. Had [facility] 10/03/20: mild CAD (mLAD 40% followed by [...] (RVSP 42 mmHg). Begin cardiac rehab at [facility]. Patient instructed to taper alcohol to off. [...] weeks. Subsequent non-ST segment elevation myocardial infarction [id number] I22.2 Stable. Had [facility] 10/03/20: mild CAD (mLAD 40% followed by [...] more than 40. Maximal medical therapy. Hyperlipidemia 80185924 E78.5 Needs to keep LDL less than 70, and HDL more than 40. Had 10/28/20: LDL 83Increase d to rosuvastat in 40 mg qHS 11/09/20. Obstructiv e sleep apnea syndrome 63154806 G47.33 She is now compliant with CPAP, with pulm. f/u. Essential hypertension 71778333 I10 Patient's blood pressure is {{well-con trolled* [...] sodium or less daily). BP diary. Obesity 469181894 E66.9 20 lb. weight loss recommende d [...] 10/26/2020 1 [place] Ping Montes Christin [id number] Ping Christin 11/06/2020 2 [place] ([place] [id number] Ping Simon Christin [id number] Ping Christin Notes Date Note Type [...] follow-up for HCF. She was in [facility] 09/30/20 with dyspnea, NSTEMI (peak [...] K 3.6, Mg 1.7, Cr 0.8, Had [facility] 10/03/20: mild CAD (mLAD 40% followed by [...] negative LE venous Doppler 09/2020. Desmond Padilla [facility] [place] [facility] 10/26/2020 14:36:29 11/09/2020 [...] follow-up for HCF. She was in [facility] 09/30/20 with dyspnea, NSTEMI (peak trop I 1.25), and CHF exacerbation in setting of hypertensive urgency, COPD exacerbation, untreated TRAVIS, left leg cellulitis (treated with doxycycline), possible pneumonia, diuresed with Lasix 40 mg bid. Had [facility] 10/03/20: mild CAD (mLAD 40% followed by [...] 1.4, hgb 11.4, plt 108 lab result [id number] result : hgb 10.7, K 3.6, Mg 1.7, Cr 0.8,PT/INR 09-30-2020 electrocardiogram Had [facility] 10/03/20: mild CAD (mLAD 40% [...] view 09-30-2020 US, echocardiogram 09-30-2020 Desmond Padilla [facility] [place] [facility] 11/09/2020 12:58:46 OBGyn Episode No OBEpisode recorded. "
--- OUTSIDE RECORDS SUMMARY | 2024-08-07 13:22 | XMS_ITS | Clinical Summary ---
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 Gender Identity Not on file Sexual Orientation Not on file Last Filed Vital Signs Vital Sign Reading Time Taken Comments Blood Pressure 123/62 01/30/2018 12:28 PM ASSISTANT INFANT TEACHER Pulse 74 01/30/2018 12:28 PM ASSISTANT INFANT TEACHER Temperature 36.5 C (97.7 F) 01/30/2018 12:28 PM ASSISTANT INFANT TEACHER Respiratory Rate 10 01/30/2018 12:28 PM ASSISTANT INFANT TEACHER Oxygen Saturation 93% 01/30/2018 12:28 PM ASSISTANT INFANT TEACHER Inhaled Oxygen Concentration - - Weight 116.6 kg (257 lb) 01/28/2018 8:16 AM ASSISTANT INFANT TEACHER Height 167.6 cm (5' 6 ) 01/28/2018 8:16 AM ASSISTANT INFANT TEACHER Body Mass Index 41.48 01/28/2018 8:16 AM ASSISTANT INFANT TEACHER Plan of Treatment Health Maintenance Due Date Last Done Comments DTAP/TDAP/TD VACCINES (1 - Tdap) 12/21/1966 PNEUMOCOCCAL VACCINE 50+ YEARS (1 of 2 - PCV) 12/21/18 67 ZOSTER VACCINE (1 of 2) 12/21/1997 OSTEOPOROSIS SCREENING 12/21/2012 RSV VACCINE (60+ or ) (1 - 1-dose 75+ series) 12/21/2022 INFLUENZA VACCINE (#1) 2023 01/28/2018 Medical Devices Implanted Type Area Office Services Clerk Device Identifier Shelf Expiration Date Model / Serial / Lot Shell Ringlc+ Pc 54mm [id number] - [id number] Implanted:Qty: 1 on 11/08/2016 by Abhinav Quesada MD at [facility] Hip Right: Hip [employer] [id number] 09/27/2026 [id number] / / [id number] Liner Arcomxl Rnglc Sz24 [id number] - [id number] Implanted:Qty: 1 on 11/08/2016 by Abhinav Quesada MD at [facility] Hip Right: Hip [employer] [id number] 10/01/2020 [id number] / / [id number] Stem Fem Echo Bmtrc Por Red Lat [id number] - [id number] Implanted:Qty: 1 on 11/08/2016 by Abhinav Quesada MD at [facility] Hip Right: Hip [employer] [id number] 04/11/2025 [id number] / / [id number] Head Modular Noskt 36mm -3mm [id number] - [id number] Implanted:Qty: 1 on 11/08/2016 by Abhinav Quesada MD at [facility] Hip Right: Hip [employer] [id number] 09/25/2026 [id number] / / [id number] Rsp Glenoid Head W Retaining Screw Neutral Sz 32mm Implanted:Qty: 1 on 01/27/2018 by Guerrero Cho MD at [facility] Other Right: Shoulder [employer] 12/05/2023 508-32-10 1 / / [id number] Small Socket Insert 32mm Semi Constrained E Plus Implanted:Qty: 1 on 01/27/2018 by Guerrero Cho MD at [facility] Other Right: Shoulder [employer] 11/29/2022 509-03-03 2 / / [id number] Humeral Stem Small Shell [id number] Implanted:Qty: 1 on 01/27/2018 by Guerrero Cho MD at [facility] Other Right: Shoulder [employer] 11/22/2023 533-10-10 8 / / [id number] Description:All DJO Surgical shoulder components are processed on requisition,[id number]. Rsp Glenoid Baseplate Implanted:Qty: 1 on 01/27/2018 by Guerrero Cho MD at [facility] Screw Right: Shoulder [employer] [id number] 10/23/2023 508-32-20 4 / / [id number] Rsp Bone Screw Locking Sz 5.0mm 30mm Long Implanted:Qty: 1 on 01/27/2018 by Guerrero Cho MD at [facility] Screw Right: Shoulder [employer] 06/25/2023 506-03- 0 / / [id number] Rsp Bone Screw Locking Sz 5.0mm 22 Mm Long Implanted:Qty: 1 on 01/27/2018 by Guerrero Cho MD at [facility] Screw Right: Shoulder [employer] 08/17/2023 506-12 2 / / [id number] Bone Screw Rsp5.0x26mm Long Implanted:Qty: 1 on 01/27/2018 by Guerrero Cho MD at [facility] Screw Right: Shoulder [employer] 6 / / Rsp Bone Screw- Locking Implanted:Qty: 1 on 01/27/2018 by Guerrero Cho MD at [facility] Right: Shoulder [employer] 11/01/2023 506-03-11 [id number] Insurance MEDICARE PART A AND B BCBS SUPP RX [employer] Medicare Part D RX [facility] Medicare Part D Advance Directives For more information, please contact: [phone] Documents on File Type Date Recorded 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
--- OUTSIDE RECORDS SUMMARY | 2024-08-07 13:23 | XMS_ITS | Encounter Summary ---
Author Organization [facility] Address [address] [place] [address] Care Team Providers Care Palm Gatherer Name Role Phone Meagan Yusuf MD Primary Care Provider + Annemarie Lea MD Unavailable [phone] Margy Walker MD PhD Unavailable [phone] Geraldine Barbosa NP Unavailable [phone] Reason for Visit * Cardiology (Routine) - Closed Specialty Diagnoses / Procedures Referred By Contac t Referred To Contact Diagnoses Nonrheumatic mitral valve regurgitation Nonrheumatic tricuspid valve regurgitation Procedures Transthoracic Echo (TTE) Complete W Doppler/CF Cinda Jimenez MD [address] [address] Phone: tel: fax: [facility] Cardiology at [address] [place] [address] Phone: tel: fax: Referral ID Status Reason Start Date Expiration Date Visits Re quested Visits Authorized [id number] Closed 07/22/2024 08/21/2025 1 1 Encounter Details Date Type Department Care Team (Latest Contact Info) Description 08/06/2024 2:00 PM CDT Ancillary Procedure [facility] Cardiology at [address] [address] Nonrheumatic mitral valve regurgitation; Nonrheumatic tricuspid valve regurgitation Social History Tobacco Use Types Packs/Day Years [...] on file Legal Sex Female 4:29 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 Gender Identity Not on file Sexual Orientation Not on file documented as of this encounter Plan of Treatment Not on file documented as of this encounter Procedures Procedure Name Priority Date/Time Associated Diagnosis Comments TRANSTHORACIC ECHO (TTE) COMPLETE W DOPPLER/CF WO CONTRAST Routine 08/06/2024 2:36 PM CDT Nonrheumatic mitral valve regurgitation Nonrheumatic tricuspid valve regurgitation documented in this encounter Results * TRANSTHORACIC ECHO (TTE) COMPLETE W DOPPLER/CF WO CONTRAST (08/06/2024 2:36 PM CDT) EF Mod BP 52 % CONS SCIMAGE Anatomical Region Laterality Modality Ultrasound 08/06/2024 1:53 PM CDT Narrative 08/06/2024 3:20 PM CDT [facility] [address], [address], [place] [address] P:[phone] P:[phone] Echocardiographic Report Patient Name: LORRAINE CUEVA J : 1945 Study Date: 08/06/2024 1:53:54 PM Gender: F Tech: Location: [facility] Ref Provider: CINDA JIMENEZ Height(Cm): 165 BSA: 2.17 Weight(Kg): 102.5 Heart Rate: 75 BP: 120 / 72 Quality: Good Order Provider: CINDA JIMENEZ PROCEDURES: Echocardiographic Report: Transthoracic echocardiogram with complete 2D, M-Mode, and color Doppler examination. With Strain Analysis. INDICATIONS: I34.0 Nonrheumatic mitral (valve) insufficiency and I36.1 Nonrheumatic tricuspid (valve) insufficiency. MEASUREMENTS: 2D/MM Value Range Doppler Value Range EF Mod BP 52 % [ 54 - 74 ] EZRA Vmax 2.44 cm2 [ 2.00 - 4.00 ] EF Teich MM 53 % [ 54 - 74 ] AV Mean PG 4 mmHg LVIDd 2D 4.93 cm [ 3.80 - 5.20 ] AV Peak Kenny 1.37 m/s [ 1.00 - 1.70 ] LVIDd MM 6.03 cm [ 3.80 - 5.20 ] AV Peak PG 8 mmHg LVIDs 2D 3.52 cm [ 2.20 - 3.50 ] AV VTI 29.40 cm LVIDs MM 4.35 cm [ 2.20 - 3.50 ] LVOT Diam 1.96 cm [ 1.70 - 2.10 ] LVPWd 2D 1.15 cm [ 0.60 - 0.90 ] LVOT Peak Kenny 0.99 m/s [ 0.70 - 1.10 ] LVPWd MM 1.13 cm [ 0.60 - 0.90 ] LVOT VTI 19.34 cm IVSd 2D 1.12 cm [ 0.60 - 0.90 ] MV E Peak Kenny 1.07 m/s [ 0.60 - 1.30 ] IVSd MM 1.27 cm [ 0.60 - 0.90 ] MV Decel Time 163 msec [ 104 - 258 ] LA Dimension MM 4.59 cm [ 2.70 - 3.80 ] PV Peak Kenny 0.95 m/s [ 0.40 - 0.80 ] AoR Diam MM 3.05 cm [ 2.70 - 3.70 ] TR Peak Kenny 2.97 m/s [ 1.00 - 2.80 ] LA Volume Index 40 cc/m2 [ 16 - 34 ] TR Peak PG 35 mmHg ACS MM 2.09 cm Lateral E` 0.11 m/s [ 0.10 - 0.15 ] E/E` 10 2D/MM Value Range Doppler Value Range - FINDINGS: Interpretation Site: Exam was interpreted at [facility] [place]. Left Ventricle: Normal left ventricular systolic function. No focal wall motion abnormalities. Normal left ventricular size. Mild concentric left ventricular hypertrophy. Diastolic dysfunction is present. Ejection fraction is measured at 52 %. Global Longitudinal Strain is -16 %. GLS is abnormal. Right Ventricle: Normal right ventricular systolic function. Mild enlargement of right ventricle. Left Atrium: There is mild enlargement of left atrium. Right Atrium: There is mild enlargement of right atrium. Atrial Septum: Normal atrial septum. Mitral Valve: Mild mitral annular calcification. Mild mitral valve regurgitation. There is no hemodynamically significant mitral stenosis by Doppler. Aortic Valve: Normal appearance of the aortic valve. No evidence of hemodynamically significant aortic stenosis by Doppler. Trileaflet aortic valve. No aortic regurgitation. Tricuspid Valve: Normal appearance of the tricuspid valve. Estimated peak RVSP is 50 mmHg. Mild tricuspid regurgitation. Pulmonic Valve: Normal appearance of the pulmonic valve. No evidence of pulmonic regurgitation. Pericardium: Normal pericardium with no significant pericardial effusion. Aorta: Sinus of Valsalva is normal. IVC: Dilated IVC without respiratory collapse consistent with elevated right atrial pressure (>15 mmHg). Pulmonary Artery: Normal pulmonary artery size. CONCLUSIONS: Normal left ventricular systolic function. No focal wall motion abnormalities. Normal left ventricular size. Mild concentric left ventricular hypertrophy. Diastolic dysfunction is present. Ejection fraction is measured at 52 %. Global Longitudinal Strain is -16 %. GLS is abnormal. Normal right ventricular systolic function. Mild enlargement of right ventricle. There is mild enlargement of left atrium. There is mild enlargement of right atrium. Mild mitral valve regurgitation. Estimated peak RVSP is 50 mmHg. Mild tricuspid regurgitation. Atrial fibrillation. Electronically Signed By: Dr. Nedra Burns [facility] 08/06/2024 3:19:51 PM CDT Procedure Note Nedra Burns MD - 08/06/2024 [facility] Medical [facility] Cardiology [address] , [address], [place] [address] P:[phone] P:[phone] Echocardiographic Report Patient Name: LORRAINE CUEVASimon : 1945 Study Date: 08/06/2024 1:53:54 PM Gender: F Tech: Location: [facility] Ref Provider: CINDA JIMENEZ Height(Cm): 165 BSA: 2.17 Weight(Kg): 102.5 Heart Rate: 75 BP: 120 / 72 Quality: Good Order Provider: CINDA JIMENEZ PROCEDURES: Echocardiographic Report: Transthoracic echocardiogram with complete 2D, M-Mode, and color Dopplerexamination. With Strain Analysis. INDICATIONS: I34.0 Nonrheumatic mitral (valve) insufficiency and I36.1 Nonrheumatictricuspid (valve) insufficiency. MEASUREMENTS: 2D/MM Value Range Doppler ValueRange EF Mod BP 52 % [ 54 - 74 ] EZRA Vmax 2.44cm2 [ 2.00 - 4.00 ] EF Teich MM 53 % [ 54 - 74 ] AV Mean PG 4mmHg LVIDd 2D 4.93 cm [ 3.80 - 5.20 ] AV Peak Kenny 1.37m/s [ 1.00 - 1.70 ] LVIDd MM 6.03 cm [ 3.80 - 5.20 ] AV Peak PG 8mmHg LVIDs 2D 3.52 cm [ 2.20 - 3.50 ] AV VTI 29.40cm LVIDs MM 4.35 cm [ 2.20 - 3.50 ] LVOT Diam 1.96 cm[ 1.70 - 2.10 ] LVPWd 2D 1.15 cm [ 0.60 - 0.90 ] LVOT Peak Kenny 0.99m/s [ 0.70 - 1.10 ] LVPWd MM 1.13 cm [ 0.60 - 0.90 ] LVOT VTI 19.34cm IVSd 2D 1.12 cm [ 0.60 - 0.90 ] MV E Peak Kenny 1.07m/s [ 0.60 - 1.30 ] IVSd MM 1.27 cm [ 0.60 - 0.90 ] MV Decel Time 163msec [ 104 - 258 ] LA Dimension MM 4.59 cm [ 2.70 - 3.80 ] PV Peak Kenny 0.95m/s [ 0.40 - 0.80 ] AoR Diam MM 3.05 cm [ 2.70 - 3.70 ] TR Peak Kenny 2.97m/s [ 1.00 - 2.80 ] LA Volume Index 40 cc/m2 [ 16 - 34 ] TR Peak PG 35mmHg ACS MM 2.09 cm Lateral E` 0.11m/s [ 0.10 - 0.15 ] E/E` 10 2D/MM Value Range Doppler ValueRange - FINDINGS: Interpretation Site: Exam was interpreted at [facility]. Left Ventricle: Normal left ventricular systolic function. No focal wall motionabnormalities. Normal left ventricular size. Mild concentric left ventricular hypertrophy.Diastolic dysfunction is present. Ejection fraction is measured at 52 %. GlobalLongitudinal Strain is -16 %. GLS is abnormal. Right Ventricle: Normal right ventricular systolic function. Mild enlargement of rightventricle. Left Atrium: There is mild enlargement of left atrium. Right Atrium: There is mild enlargement of right atrium. Atrial Septum: Normal atrial septum. Mitral Valve: Mild mitral annular calcification. Mild mitral valve regurgitation. Thereis no hemodynamically significant mitral stenosis by Doppler. Aortic Valve: Normal appearance of the aortic valve. No evidence of hemodynamicallysignificant aortic stenosis by Doppler. Trileaflet aortic valve. No aortic regurgitation. Tricuspid Valve: Normal appearance of the tricuspid valve. Estimated peak RVSP is 50 mmHg.Mild tricuspid regurgitation. Pulmonic Valve: Normal appearance of the pulmonic valve. No evidence of pulmonicregurgitation. Pericardium: Normal pericardium with no significant pericardial effusion. Aorta: Sinus of Valsalva is normal. IVC: Dilated IVC without respiratory collapse consistent with elevated rightatrial pressure (>15 mmHg). Pulmonary Artery: Normal pulmonary artery size. CONCLUSIONS: Normal left ventricular systolic function. No focal wall motionabnormalities. Normal left ventricular size. Mild concentric left ventricular hypertrophy.Diastolic dysfunction is present. Ejection fraction is measured at 52 %. GlobalLongitudinal Strain is -16 %. GLS is abnormal. Normal right ventricular systolic function. Mild enlargement of rightventricle. There is mild enlargement of left atrium. There is mild enlargement of right atrium. Mild mitral valve regurgitation. Estimated peak RVSP is 50 mmHg. Mild tricuspid regurgitation. Atrial fibrillation. Electronically Signed By: Dr. Nedra Burns [facility] 08/06/2024 3:19:51 PM CDT [facility] Ludin Jimenez MD CV ECHO PROCEDURES Kylie l Result documented in this encounter Visit Diagnoses Diagnosis Nonrheumatic mitral valve regurgitation Nonrheumatic tricuspid valve regurgitation documented in this encounter Care Teams Palm Gatherer Relationship Specialty Start Date End Date Meagan Yusuf MD PCP - General Family Medicine 05/22/23 Annemarie Lea MD [address] [place] [address] Consulting Physician Otolaryngology 05/27/24 Margy Walker MD PhD [address] [place] [address] Consulting Physician Plastic Surgery 05/27/24 Geraldine Barbosa NP [address] [place] [address] Nurse Practitioner Neurosurgery 05/27/24 documented as of this encounter
[2024-08-07 15:45] LABS: Blood Urea Nitrogen 45 mg/dL (7-17); Calcium 8.9 mg/dL (8.4-10.2); Carbon Dioxide > 40 mmol/L (22-30); Chloride 82 mmol/L (98-107); Estimated Glomerular Filt Rate 45; Glucose 119 mg/dL (65-110); Potassium 2.7 mmol/L (3.4-5.0); Sodium 139 mmol/L (137-145)
== END 2024-08-07 13:13 | disposition home or self-care (01) ==
PROVIDERS: PCP Family Medicine; Visit Provider Family Medicine
DX: E87.6 Hypokalemia (principal)
CPT/HCPCS: 36415; 80048

== ENCOUNTER 2024-08-12 20:44 | Emergency (ER) | payer MEDICARE, SELFPAY ==
--- NOTE | 2024-08-12 20:46 | ECG_ITS ---
Test Date: 2024-08-12 21:02:11 Measurements Intervals [place] Rate: 69 P: 0 WV: 0 QRS: 22 QRSD: 104 T: 33 QT: 437 QTc: 469 Interpretive Statements ATRIAL FIBRILLATION POSSIBLE ANTERIOR MYOCARDIAL INFARCTION , OF INDETERMINATE AGE [30 ms Q WAVE IN V3/V4, OR R < 0.2 mV IN V4] POSSIBLE INFERIOR MYOCARDIAL INFARCTION , PROBABLY OLD [30 ms Q WAVE IN II/aVF] Compared to ECG 06/05/2024 19:05:17 No significant changes Electronically Signed On 08-13-2024 13:59:36 CDT by Alphonso Yost M.D.
[2024-08-12 20:47] VITALS: BP 95/60; RESP 16; TEMP 36.7; O2SAT 88
--- OUTSIDE RECORDS SUMMARY | 2024-08-12 20:47 | XMS_ITS | Encounter Summary ---
Author Organization [employer] Address 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
--- OUTSIDE RECORDS SUMMARY | 2024-08-12 20:47 | XMS_ITS | Encounter Summary ---
Author Organization [employer] Address 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
--- OUTSIDE RECORDS SUMMARY | 2024-08-12 20:47 | XMS_ITS | Encounter Summary ---
Author Organization [facility] Address [address] [place] [address] Care Team Providers Care Preschool Assistant Director Name Role Phone Juan David Yusuf MD Primary Care Provider [phone] Encounter Details Date Type Department Care Team (Late st Contact Info) Description 07/14/1999 Outpatient Historical [facility] Isatu Grant MD Social History Tobacco Use Types Packs/Day Years Used Date Smoking Tobacco: Never Assessed Comments Unknown Sex and Gender Information Value Date Recorded Sex Assigned at Not on file Legal Sex Female 3:33 AM SQL [employer] DEVELOPER Gender Identity Not on file Sexual Orientation Not on file documented as of this encounter Plan of Treatment Not on file documented as of this encounter Visit Diagnoses Not on filedocumented in this encounter Care Teams Preschool Assistant Director Relationship Specialty Start Date End Date Juan David Yusuf MD PCP - General Family Practice 01/14/18 documented as of this encounter
--- OUTSIDE RECORDS SUMMARY | 2024-08-12 20:47 | XMS_ITS | Continuity of Care Document ---
Author Organization [facility] Address [address] [place] [address] [address] [place] [address] Phone Care Team Providers Care Warper Creeler Name Role Phone Guerrero Cho MD Unavailable [...] Copied on Encounter OFFICE/OUTPA TIENT VISIT EST [facility], [address] [place] [address], [address], tel:[phone] [facility] Chaitanya Status post reverse total arthroplasty of right shoulderAfter care following right shoulder joint replacement surgery 9 Marquis Masters. [address] [facility] [address], [place], [place], [id number] . tel: [phone] [facility], [address] [place] [address], [address], tel:[phone] [facility] Chaitanya s/p reverse right shoulder (chief complaint) Status post reverse total arthroplasty of right shoulder 8 Marquis Masters. [address], [place], [place], [id number] . tel: [phone] [facility], [address] [place] [address], [address], tel:[phone] [facility] Other specific arthropathies , not elsewhere classified, right shoulder 8 Marquis Masters. [address] [facility] [address], [place], [place], [id number] . tel: [phone] OFFICE/OUTPA TIENT VISIT EST [facility], [address] [place] [address], [address], [phone] [facility] Complete tear of right rotator cuffPrimary osteoarthriti s of right shoulder 0 8 Marquis Masters. [address], [place], [place], [id number] . tel: [phone] OFFICE/OUTPA TIENT VISIT EST [facility], [address] [place] [address], [address], [place] tel:[phone] [facility] [place] RT SHOULDER INJURY 7\ (chief complaint) Body mass index (BMI) 40.0-44.9, adultComplete tear of right rotator cuff 8 Sangita Abhinav. [address] [place] [address], [id number] . tel: [phone] Referring Provider: Juan David Patiño, [address] [place], [place], [address]. tel:[phone] OFFICE/OUTPA TIENT VISIT [facility], [address] [place] [address], [address], [place] tel:[phone] [facility] History of total right hip arthroplasty 8 Sangita La. [address] [place] [address], [id number] . tel: [phone] Referring Provider: Meagan Wren, PERMANENTLY CLOSED [address] [place], [place], [address]. tel:[phone] [facility], [address] [place] [address], [address], [place] tel:[phone] [facility] History of total right hip arthroplasty 7 Sangita La. [address] [place] [address], [id number] . tel: [phone] [facility], [address] [place] [address], [address], [place] tel:[phone] [facility] [place] R YANIRA 11/08/16 (chief complaint) History of total right hip arthroplasty 7 Michael Lemos. [address] [place] [address] [address], [place], [place], [id number] . tel: [phone] [facility], [address] [place] [address], [address], [phone] [facility] R YANIRA 11/08/16 (chief complaint) History of total right hip arthroplasty Sep-0 7 Michael Lemos. [address] [place] [address] [address], [place], [place], [id number] . tel: [phone] [facility], [address] [place] [address], [address], [place] tel:[phone] [facility] No Information Sangita La. [address] [place] [address], [id number] . tel: [phone] OFFICE/OUTPA TIENT VISIT EST [facility], [address] [place] [address], [address], tel:[phone] [facility] Follow Up of after right hip mri (chief complaint) Primary osteoarthriti s of right hipHip abductor tendinitis, right 7 Sangita La. [address] [place] [address], [id number] . tel: [phone] OFFICE/OUTPA TIENT VISIT [facility], [address] [place] [address], [address], [place] [phone] [facility] R hip (chief complaint) Body mass index (BMI) 38.0-38.9, adultPrimary osteoarthriti s of right hipHip abductor tendinitis, right 7 Sangita La. [address] [place] [address], [id number] . tel: [phone] Referring Provider: Kristel Villegas, [address], [place], [address]. tel:[phone] Family History Family Member Type Diagnosis Age At Onset Brother Problem (finding) Alive and well Immunizations Vaccine Date Status Comments Pneumo (2 yrs or older)(PPV) administered Source: Other Provider Payers Payer name Insurance type Covered libertarian ID Lela gong(s) Medicare E2 [id number] [place] Medicare Supplement E2 OT [id number] Social History Type Description Quantity Date [...]
--- OUTSIDE RECORDS SUMMARY | 2024-08-12 20:48 | XMS_ITS | Clinical Summary ---
Author Organization [facility] Address [address] [place] [id number] Care Team Providers Care Bridge Repairer Name Role Phone Meagan Yusuf MD Primary Care Provider + Annemarie Lea MD Unavailable [phone] Margy Walker MD PhD Unavailable [phone] Geraldine Barbosa NP Unavailable [phone] Allergies Active Allergy Reactions Criticality Noted Date [...] HFrEF (heart failure with reduced ejection fraction) ([facility]) TAKE 1 TABLET BY MOUTH IN [...] 05/23/2024 Assessment & Plan (05/26/2024 9:50 AM AIR CONDITIONING ENGINEER): #COPD #TRAVIS, chronic #Chronic hypoxic respiratory failure [...] 05/23/2024 Assessment & Plan (05/27/2024 11:52 AM AIR CONDITIONING ENGINEER): 3 tx out ICU, PT/OT - 05/25: awaiting repeat swallow evaluation, calorie counts - 05/26: Continue Tfs at nightly, Calorie counts. Wean O2 back to home 4L. Not medically ready for discharge. 05/27: Patient is medically stable for discharge, SW/CM updated. Discharge pending facility bed availability Treatment note 05/14 [x] Feeding difficulties 05/22/2024 Assessment & Plan (05/27/2024 11:55 AM AIR CONDITIONING ENGINEER): SBFT placed by ENT 05/21 TFs commenced [...] NPO, resumed tube feeds, ordered for repeat POLICE INVESTIGATOR evaluation. Recommend up in chair for all meals and 1:1 assistance during meals pending POLICE INVESTIGATOR evaluation. Discussed with patient and nurse to inform provider of any change in clinical exam or vital signs. 05/25: repeat Swallow- regular diet, regular thin liquids assistance with meals, calorie counts ordered, cycle tube feeding over PM MBS (05/27): swallow mechanism is normal Respiratory distress 05/20/2024 Assessment & Plan (05/27/2024 11:55 AM AIR CONDITIONING ENGINEER): Transferred to SICU 05/18 ON after respiratory [...] 05/14/2024 Assessment & Plan (05/15/2024 2:15 PM AIR CONDITIONING ENGINEER): - Orthostatic vital signs (05/14): negative - [...] 05/14/2024 Assessment & Plan (05/14/2024 12:48 PM AIR CONDITIONING ENGINEER): - Tylenol 1g q6h - Gabapentin 300mg TID - Robaxin 500mg TID PRN - Oxycodone 5mg q4h PRN Closed fracture of distal end of left radius Assessment & Plan (05/27/2024 11:55 AM AIR CONDITIONING ENGINEER): - Plastics consult - L hand/wrist xr [...] 05/14/2024 Assessment & Plan (05/25/2024 11:39 AM AIR CONDITIONING ENGINEER): - Magnesium (05/14): 1.9mg/dL - 05/14: replete Magnesium 2g IV - Magnesium (05/15): 2.0mg/dL - Magnesium (05/20): 2.2mg/dL - Magnesium (05/25): 2.0mg/dL - continue to trend Magnesium Fall, initial encounter 05/13/2024 Assessment & Plan (05/15/2024 10:18 AM AIR CONDITIONING ENGINEER): Syncopal workup given unclear mechanism (TTE, carotid [...] months Assessment & Plan (05/27/2024 11:52 AM AIR CONDITIONING ENGINEER): Ophtho c/s ---HOB elevation, open-mouth sneezing, no [...] to be tasked with Dr Lea's team. 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 CTM BP and resume home lasix when appropriate. Restless leg syndrome 05/13/2024 Assessment & Plan (05/13/2024 2:32 PM AIR CONDITIONING ENGINEER): - Continue home ropinrole and pramipexole, gabapentin Mood disorder 05/13/2024 Assessment & Plan (05/13/2024 2:37 PM AIR CONDITIONING ENGINEER): Continue home zoloft Heart failure with mildly re duced ejection fraction (HFmrEF) 01/15/2024 Assessment & Plan (05/27/2024 11:57 AM AIR CONDITIONING ENGINEER): #HTN, chronic #HFrEF, chronic #Severe MR #Severe TI #Severe pulmonary hypertension - TTEs as above - Home O2 4L - Follows with [facility] Cardiology - Home Diltiazem, Entresto, Lasix (1/2 dose) and metoprolol continued Persistent atrial fibrillation 02/20/2022 Noncompliance with medicatio n treatment due to intermittent use of medication 12/18/2021 Morbid (severe) obesity due to excess calories 0 07/05/2021 Labile hypertension 03/23/2021 Hypotension due to drugs 03/23/2021 Coronary artery disease invo lving crow coronary artery 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 02/10/2021 Mixed hyperlipidemia 02/10/2021 Chronic obstructive pulmonary disease 02/10/2021 Chronic respiratory failure with hypoxia 021 TRAVIS on CPAP 02/10/2021 Frequent falls 02/10/2021 Resolved Problems Problem Noted Date Diagnosed Date Resolved Date COPD (chronic obstructive pulmonary disease) 5 05/23/2024 Assessment & Plan (05/13/2024 2:35 PM AIR CONDITIONING ENGINEER): - home meds: albuterol, ipratopium-albuterol Discharge planning issues 05/13/2024 Assessment & Plan (05/18/2024 2:27 PM AIR CONDITIONING ENGINEER): - 05/14: orthostatic vital signs pending, syncope workup pending, awaiting PT/OT - 05/15: atrial fibrillation with RVR over PM, ECHO pending. Possible OR on 05/18 05/16 pending OR with Plastics on Saturday and Saturday. Echo completed EF 52% with extensive cardiac anomalies all stable. 05/18: Pending OR with PRS and ENT Treatment plan note [x] Chronic anticoagulation 07/18/2022 04/3 H/O cardiomyopathy 12/18/2021 Chronic heart failure with p reserved ejection fraction 02/10/2021 01/15/2024 Encounters Date Type Department Care Team Description 08/07/2024 Results Follow-Up [facility] Cardiology [address] [place] [address] Cinda Jimenez MD Transthoracic Echo (TTE) Complete W Doppler/CF 08/06/2024 2:00 PM CDT Ancillary Procedure [facility] Medical [facility] Cardiology at [address] [place] [address] Nonrheumatic mitral valve regurgitation; Nonrheumatic tricuspid valve regurgitation 07/22/2024 9:30 AM CDT Office Visit [facility] Cardiology at [address] [place] [address] Cinda Jimenez MD Nonrheumatic mitral valve regurgitation (Primary Dx); Nonrheumatic tricuspid valve regurgitation; Mixed hyperlipidemia; Labile hypertension; Coronary artery disease involving crow coronary artery 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; Frequent falls; Persistent atrial fibrillation (HCC); Chronic anticoagulation; Chronic diastolic heart failure (HCC) 06/30/2024 10:00 AM CDT Office Visit [facility] [address] [place] [address] [place] [address] Leeann Horvath MD Orbital floor (blow-out) closed fracture (HCC) (Primary Dx); Mixed type age-related cataract, both eyes 06/23/2024 11:59 AM CDT - 06/23/2024 11:59 PM CDT Hospital Encounter [facility] [address] [place] [phone] Discharge Disposition: Discharge to home or self care 06/23/2024 11:00 AM CDT Office Visit [facility] [address] [facility] 6th [place] [address] Margy Walker MD PhD Fracture (Primary Dx); Other closed intra-articular fracture of distal end of left radius, initial encounter 06/15/2024 Telephone [facility] [address] [place] [address] Erica Velarde 06/09/2024 Telephone [facility] Scheduling [address] [place] [address] Nu Milian MD 05/31/2024 Telephone [facility] [address] [place] [address] 1st [place] [address] Leeann Horvath MD 05/28/[address] [facility] Surgeon [address] [place] [address] Lorena Beck NP 05/27/2024 Telephone [facility]) - [facility] ENT [address] [place] [address] [place] [address] Syibl Burgess, 05/19/2024 7:51 AM AIR CONDITIONING ENGINEER Anesthesia Event [facility] Operating Room [address] [place] [address] Mag Villatoro MD Ridenour, Rebekah Elizabeth, NP 05/19/2024 7:30 AM AIR CONDITIONING ENGINEER - 05/19/2024 10:50 AM AIR CONDITIONING ENGINEER Surgery [facility] Operating Room [address] [place] [address] Annemarie Lea MD OPEN REDUCTION INTERNAL FIXATION - ORBITAL FRACTURE 05/18/2024 3:50 PM AIR CONDITIONING ENGINEER - 05/18/2024 6:30 PM AIR CONDITIONING ENGINEER Surgery [facility] Operating Room [address] [place] [address] Margy Walker MD PhD OPEN REDUCTION INTERNAL FIXATION RADIUS - DISTAL 05/18/2024 3:47 PM AIR CONDITIONING ENGINEER Anesthesia Event [facility] Operating Room [address] [place] [address] Zack Rizvi MD Ridenour, Rebekah Elizabeth, NP 05/15/2024 Orders Only [facility] [address] [place] [address] [place] [id number] Geraldine Barbosa NP Intraparenchymal hematoma of brain due to trauma, with unknown loss of consciousness status, unspecified laterality, subsequent encounter (Primary Dx); Fall, initial encounter 05/13/2024 12:53 AM AIR CONDITIONING ENGINEER - 05/27/2024 7:22 PM AIR CONDITIONING ENGINEER Hospital Encounter [facility] [address] [place] [address] Edwige Strickland MD Vallar, MD Shane Hatch, MD Karli Cuenca, MD Irineo Fall, initial encounter (Primary Dx); Closed fracture of right orbital floor, initial encounter (HCC); Frequent falls; Other closed intra-articular fracture of distal end of left radius, initial encounter Discharge Disposition: Discharge to an IP Rehab facility from Last 3 Months Immunizations Immunization Administration Dates Next Due Tdap 05/13/2024 Surgical History Surgery Date Site/Laterality Comments HYSTERECTOMY TOTAL SHOULDER REPLACEMENT Right HIP ARTHROPLASTY Medical History Medical History Date Comments MA, old CHF (congestive heart failure) (HCC) Alcohol [...] on file Legal Sex Female 4:29 PM AIR CONDITIONING ENGINEER Gender Identity Not on file Sexual Orientation Not on file Obstetrics History Last Filed Vital Signs Vital Sign Reading Time Taken Comments Blood Pressure 120/72 07/22/2024 9:18 AM CDT Pulse 81 07/22/2024 9:18 AM CDT Temperature 37.1 C (98.8 F) 05/27/2024 3:28 PM AIR CONDITIONING ENGINEER Respiratory Rate 20 05/27/2024 11:49 AM AIR CONDITIONING ENGINEER Oxygen Saturation 92% 07/22/2024 9:18 AM CDT [...] 05/08/2018, 12/24 Medical Devices Implanted Type Area Instrument Lens Generator Device Identifier Shelf Expiration Date Model / Serial / Lot Implantech Sheeting Silastic Non Reinforced Alliedsil [id number] Silicone 23-700-40 - [id number] Implanted:Qty: 1 on 05/19/2024 by Annemarie Lea MD at [facility] Other - see comments Right: Face Implantech 07/03/2028 23-700- 40 / / Luis Carlos Craniomaxillofacial Craniomaxillofacial Right 3d Large Implant Orbital Medpor Titan 35795 - [id number] Implanted:Qty: 1 on 05/19/2024 by Annemarie Lea MD at [facility] Other - see comments Right: Face [place] Craniomaxillofacial 08/19/2032 56995 / / [place] Craniomaxillofacial 1.2mm 4mm Self Drill Axial Stability Lower Profile Screw Bone 56-54409 - [id number] Implanted:Qty: 1 on 05/19/2024 by Annemarie Lea MD at [facility] Other - see comments Right: Face Luis Carlos Craniomaxillofacial 56-1290 4 / / Medartis Inc Plt 2.5 Adaptive Ii Trilock Dist Rad Vol L 10h Narrow T2.0 A-4750.101 - [id number] Implanted:Qty: 1 on 05/18/2024 by Margy Walker MD PhD at [facility] Left: Wrist Med[employer] Inc A-4750. 101 / / Med[employer] Inc 2.5mm 18mm Lock Cortical Screw Bone A-5750.18 - [id number] Implanted:Qty: 1 on 05/18/2024 by Margy Walker MD PhD at [facility] Left: Wrist [employer] A-5750. 18 / / [employer] 2.5mm 22mm Lock Cortical Screw Bone A-5750.22 - [id number] Implanted:Qty: 2 on 05/18/2024 by Margy Walker MD PhD at [facility] Left: Wrist [employer] A-5750. 22 / / [employer] 2.5mm 20mm Lock Cortical Screw Bone A-5750.20 - [id number] Implanted:Qty: 3 on 05/18/2024 by Margy Walker MD PhD at [facility] Left: Wrist [employer] A-5750. 20 / / [employer] Inc Aptus 2.5mm 14mm Lock Cortical Screw Bone A-5750.14 - [id number] Implanted:Qty: 2 on 05/18/2024 by Margy Walker MD PhD at [facility] Left: Wrist [employer] A-5750. 14 / / [employer] Aptus 2.5mm 14mm Cortical Screw Bone A-5700.14 - [id number] Implanted:Qty: 1 on 05/18/2024 by Margy Walker MD PhD at [facility] Left: Wrist [employer] A-5700. 14 / / [employer] 2.5mm 12mm Lock Cortical Screw Bone A-5750.12 - [id number] Implanted:Qty: 1 on 05/18/2024 by Margy Walker MD PhD at [facility] Left: Wrist [employer] A-5750. 12 / / Explanted Type Area Instrument Lens Generator Device Identifier Shelf Expiration Date Model / Serial / Lot [employer]artis Inc Aptus 2.5mm 16mm Cortical Screw Bone A-5700.16 - [id number] Explanted:Qty: 1 on 05/18/2024 by Margy Walker MD PhD at [facility] Left: Wrist [employer] Inc A-5700 .16 / / Medartis Inc 2.5mm 18mm Lock Cortical Screw Bone A-5750.18 - [id number] Explanted:Qty: 1 on 05/18/2024 at [facility] Left: Wrist [employer] Inc A-5750 .18 [...] W VIDEO IP Routine 05/27/2024 10:35 AM AIR CONDITIONING ENGINEER EGFR Routine 05/26/2024 9:12 PM AIR CONDITIONING ENGINEER BASIC METABOLIC PANEL Routine 05/26/2024 9:12 PM AIR CONDITIONING ENGINEER CBC WITHOUT DIFFERENTIAL Routine 05/26/2024 9:12 PM AIR CONDITIONING ENGINEER MAGNESIUM Routine 05/26/2024 9:12 PM AIR CONDITIONING ENGINEER PHOSPHORUS Routine 05/26/2024 9:12 PM AIR CONDITIONING ENGINEER PEP THERAPY Routine 05/26/2024 12:01 PM AIR CONDITIONING ENGINEER PEP THERAPY Routine 05/26/2024 6:01 AM AIR CONDITIONING ENGINEER PEP THERAPY Routine 05/26/2024 12:00 AM AIR CONDITIONING ENGINEER EGFR Routine 05/25/2024 9:54 PM AIR CONDITIONING ENGINEER BASIC METABOLIC PANEL Routine 05/25/2024 9:54 PM AIR CONDITIONING ENGINEER CBC WITHOUT DIFFERENTIAL Routine 05/25/2024 9:54 PM AIR CONDITIONING ENGINEER MAGNESIUM Routine 05/25/2024 9:54 PM AIR CONDITIONING ENGINEER PHOSPHORUS Routine 05/25/2024 9:54 PM AIR CONDITIONING ENGINEER PEP THERAPY Routine 05/25/2024 6:00 PM AIR CONDITIONING ENGINEER PEP THERAPY Routine 05/25/2024 12:00 PM AIR CONDITIONING ENGINEER PEP THERAPY Routine 05/25/2024 6:01 AM AIR CONDITIONING ENGINEER PEP THERAPY Routine 05/25/2024 12:00 AM AIR CONDITIONING ENGINEER ECG 12-LEAD STAT 05/24/2024 10:55 PM AIR CONDITIONING ENGINEER EGFR Routine 05/24/2024 8:54 PM AIR CONDITIONING ENGINEER BASIC METABOLIC PANEL Routine 05/24/2024 8:54 PM AIR CONDITIONING ENGINEER CBC WITHOUT DIFFERENTIAL Routine 05/24/2024 8:54 PM AIR CONDITIONING ENGINEER MAGNESIUM Routine 05/24/2024 8:54 PM AIR CONDITIONING ENGINEER PHOSPHORUS Routine 05/24/2024 8:54 PM AIR CONDITIONING ENGINEER PEP THERAPY Routine 05/24/2024 6:00 PM AIR CONDITIONING ENGINEER PEP THERAPY Routine 05/24/2024 12:00 PM AIR CONDITIONING ENGINEER PEP THERAPY Routine 05/24/2024 6:00 AM AIR CONDITIONING ENGINEER PEP THERAPY Routine 05/24/2024 12:00 AM AIR CONDITIONING ENGINEER ECG 12-LEAD Routine 05/23/2024 11:24 PM AIR CONDITIONING ENGINEER EGFR Routine 05/23/2024 8:13 PM AIR CONDITIONING ENGINEER BASIC METABOLIC PANEL Routine 05/23/2024 8:13 PM AIR CONDITIONING ENGINEER CBC WITHOUT DIFFERENTIAL Routine 05/23/2024 8:13 PM AIR CONDITIONING ENGINEER MAGNESIUM Routine 05/23/2024 8:13 PM AIR CONDITIONING ENGINEER PHOSPHORUS Routine 05/23/2024 8:13 PM AIR CONDITIONING ENGINEER PEP THERAPY Routine 05/23/2024 6:00 PM AIR CONDITIONING ENGINEER PEP THERAPY Routine 05/23/2024 12:00 PM AIR CONDITIONING ENGINEER CRITICAL CARE Routine 05/23/2024 6:40 AM AIR CONDITIONING ENGINEER Fall, initial encounter PEP THERAPY Routine 05/23/2024 6:00 AM AIR CONDITIONING ENGINEER PEP THERAPY Routine 05/23/2024 12:01 AM AIR CONDITIONING ENGINEER POCT GLUCOSE DEVICE Routine 05/22/2024 11:10 PM AIR CONDITIONING ENGINEER EGFR Routine 05/22/2024 8:23 PM AIR CONDITIONING ENGINEER BASIC METABOLIC PANEL Routine 05/22/2024 8:23 PM AIR CONDITIONING ENGINEER CBC WITHOUT DIFFERENTIAL Routine 05/22/2024 8:23 PM AIR CONDITIONING ENGINEER MAGNESIUM Routine 05/22/2024 8:23 PM AIR CONDITIONING ENGINEER PHOSPHORUS Routine 05/22/2024 8:23 PM AIR CONDITIONING ENGINEER CRITICAL CARE Routine 05/22/2024 7:32 PM AIR CONDITIONING ENGINEER Fall, initial encounter POCT GLUCOSE DEVICE Routine 05/22/2024 6 :58 PM AIR CONDITIONING ENGINEER PEP THERAPY Routine 05/22/2024 6:00 PM AIR CONDITIONING ENGINEER IRON PROFILE W/ IBC STAT 05/22/2024 3 :44 PM AIR CONDITIONING ENGINEER POCT GLUCOSE DEVICE Routine 05/22/2024 3 :03 PM AIR CONDITIONING ENGINEER PEP THERAPY Routine 05/22/2024 12:00 PM AIR CONDITIONING ENGINEER POCT GLUCOSE DEVICE Routine 05/22/2024 10:55 AM AIR CONDITIONING ENGINEER POCT GLUCOSE DEVICE Routine 05/22/2024 7 :01 AM AIR CONDITIONING ENGINEER CRITICAL CARE Routine 05/22/2024 6:44 AM AIR CONDITIONING ENGINEER Fall, initial encounter PEP THERAPY Routine 05/22/2024 6:01 AM AIR CONDITIONING ENGINEER BLOOD GAS, ARTERIAL Routine 05/22/2024 4 :31 AM AIR CONDITIONING ENGINEER POCT GLUCOSE DEVICE Routine 05/22/2024 3 :02 AM AIR CONDITIONING ENGINEER PEP THERAPY Routine 05/22/2024 12:00 AM AIR CONDITIONING ENGINEER POCT GLUCOSE DEVICE Routine 05/21/2024 10:54 PM AIR CONDITIONING ENGINEER EGFR Routine 05/21/2024 8:54 PM AIR CONDITIONING ENGINEER BLOOD GAS, ARTERIAL Routine 05/21/2024 8 :54 PM AIR CONDITIONING ENGINEER BASIC METABOLIC PANEL Routine 05/21/2024 8:54 PM AIR CONDITIONING ENGINEER CBC WITHOUT DIFFERENTIAL Routine 05/21/2024 8:54 PM AIR CONDITIONING ENGINEER MAGNESIUM Routine 05/21/2024 8:54 PM AIR CONDITIONING ENGINEER PHOSPHORUS Routine 05/21/2024 8:54 PM AIR CONDITIONING ENGINEER XR CHEST 1 VIEW IP Routine 05/21/2024 8:36 PM AIR CONDITIONING ENGINEER CRITICAL CARE Routine 05/21/2024 8:00 PM AIR CONDITIONING ENGINEER Fall, initial encounter POCT GLUCOSE DEVICE Routine 05/21/2024 7 :43 PM AIR CONDITIONING ENGINEER PEP THERAPY Routine 05/21/2024 6:00 PM AIR CONDITIONING ENGINEER BLOOD GAS, ARTERIAL STAT 05/21/2024 3:11 PM AIR CONDITIONING ENGINEER POCT GLUCOSE DEVICE Routine 05/21/2024 3 :10 PM AIR CONDITIONING ENGINEER EXTUBATION Routine 05/21/2024 2:27 PM AIR CONDITIONING ENGINEER PEP THERAPY Routine 05/21/2024 12:00 PM AIR CONDITIONING ENGINEER POCT GLUCOSE DEVICE Routine 05/21/2024 11:14 AM AIR CONDITIONING ENGINEER T4, FREE Routine 05/21/2024 9:07 AM AIR CONDITIONING ENGINEER AMMONIA Routine 05/21/2024 9:07 AM AIR CONDITIONING ENGINEER THYROID FUNCTION CASCADE Routine 05/21/2024 9:07 AM AIR CONDITIONING ENGINEER TRIGLYCERIDES Timed 05/21/2024 9:07 AM AIR CONDITIONING ENGINEER POCT GLUCOSE DEVICE Routine 05/21/2024 7 :24 AM AIR CONDITIONING ENGINEER CRITICAL CARE Routine 05/21/2024 7:02 AM AIR CONDITIONING ENGINEER Fall, initial encounter PEP THERAPY Routine 05/21/2024 6:01 AM AIR CONDITIONING ENGINEER POCT GLUCOSE DEVICE Routine 05/21/2024 3 :47 AM AIR CONDITIONING ENGINEER XR CHEST 1 VIEW ED Urgent/IP Urgent 05/21/2024 12:12 AM AIR CONDITIONING ENGINEER PEP THERAPY Routine 05/21/2024 12:00 AM AIR CONDITIONING ENGINEER POCT GLUCOSE DEVICE Routine 05/20/2024 11:29 PM AIR CONDITIONING ENGINEER XR ABDOMEN AP 1 VIEW ED Urgent/IP Urgent 05/20/2024 8:05 PM AIR CONDITIONING ENGINEER EGFR Routine 05/20/2024 7:44 PM AIR CONDITIONING ENGINEER BASIC METABOLIC PANEL Routine 05/20/2024 7:44 PM AIR CONDITIONING ENGINEER CBC WITHOUT DIFFERENTIAL Routine 05/20/2024 7:44 PM AIR CONDITIONING ENGINEER MAGNESIUM Routine 05/20/2024 7:44 PM AIR CONDITIONING ENGINEER PHOSPHORUS Routine 05/20/2024 7:44 PM AIR CONDITIONING ENGINEER POCT GLUCOSE DEVICE Routine 05/20/2024 7 :36 PM AIR CONDITIONING ENGINEER CRITICAL CARE Routine 05/20/2024 6:22 PM AIR CONDITIONING ENGINEER Fall, initial encounter PEP THERAPY Routine 05/20/2024 6:00 PM AIR CONDITIONING ENGINEER POCT GLUCOSE DEVICE Routine 05/20/2024 3 :33 PM AIR CONDITIONING ENGINEER PEP THERAPY Routine 05/20/2024 12:00 PM AIR CONDITIONING ENGINEER POCT GLUCOSE DEVICE Routine 05/20/2024 11:36 AM AIR CONDITIONING ENGINEER POCT GLUCOSE DEVICE Routine 05/20/2024 7 :28 AM AIR CONDITIONING ENGINEER CRITICAL CARE Routine 05/20/2024 7:27 AM AIR CONDITIONING ENGINEER Fall, initial encounter XR CHEST 1 VIEW ED Urgent/IP Urgent 05/20/2024 6:25 AM AIR CONDITIONING ENGINEER PEP THERAPY Routine 05/20/2024 6:01 AM AIR CONDITIONING ENGINEER POCT GLUCOSE DEVICE Routine 05/20/2024 3 :47 AM AIR CONDITIONING ENGINEER BLOOD GAS, ARTERIAL STAT 05/20/2024 3 :01 AM AIR CONDITIONING ENGINEER PEP THERAPY Routine 05/20/2024 12:00 AM AIR CONDITIONING ENGINEER POCT GLUCOSE DEVICE Routine 05/19/2024 11:34 PM AIR CONDITIONING ENGINEER REPOSITION ENDOTRACHEAL TUBE Routine 05/19/2024 10:35 PM AIR CONDITIONING ENGINEER EGFR Routine 05/19/2024 9:35 PM AIR CONDITIONING ENGINEER BLOOD GAS, ARTERIAL Routine 05/19/2024 9 :35 PM AIR CONDITIONING ENGINEER BASIC METABOLIC PANEL Routine 05/19/2024 9:35 PM AIR CONDITIONING ENGINEER CBC WITHOUT DIFFERENTIAL Routine 05/19/2024 9:35 PM AIR CONDITIONING ENGINEER MAGNESIUM Routine 05/19/2024 9:35 PM AIR CONDITIONING ENGINEER PHOSPHORUS Routine 05/19/2024 9:35 PM AIR CONDITIONING ENGINEER CRITICAL CARE Routine 05/19/2024 8:59 PM AIR CONDITIONING ENGINEER Fall, initial encounter POCT GLUCOSE DEVICE Routine 05/19/2024 7 :36 PM AIR CONDITIONING ENGINEER PEP THERAPY Routine 05/19/2024 6:00 PM AIR CONDITIONING ENGINEER POCT GLUCOSE DEVICE Routine 05/19/2024 3 :43 PM AIR CONDITIONING ENGINEER RT COMMUNICATION Routine 05/19/2024 2:30 PM AIR CONDITIONING ENGINEER XR CHEST 1 VIEW ED Urgent/IP Urgent 05/19/2024 2:08 PM AIR CONDITIONING ENGINEER POCT GLUCOSE DEVICE Routine 05/19/2024 12:49 PM AIR CONDITIONING ENGINEER EGFR STAT 05/19/2024 12:45 PM AIR CONDITIONING ENGINEER PHOSPHORUS STAT 05/19/2024 12:45 PM AIR CONDITIONING ENGINEER MAGNESIUM STAT 05/19/2024 12:45 PM AIR CONDITIONING ENGINEER BASIC METABOLIC PANEL STAT 05/19/2024 12:45 PM AIR CONDITIONING ENGINEER CBC WITHOUT DIFFERENTIAL STAT 05/19/2024 12:45 PM AIR CONDITIONING ENGINEER BLOOD GAS, ARTERIAL STAT 05/19/2024 12:45 PM AIR CONDITIONING ENGINEER PEP THERAPY Routine 05/19/2024 12:00 PM AIR CONDITIONING ENGINEER FL FLUOROSCOPY < 1 HOUR IP Routine 05/19/2024 11:22 AM AIR CONDITIONING ENGINEER POC BLOOD GAS AND CHEMISTRIES, ARTERIAL Routine 05/19/2024 10:38 AM AIR CONDITIONING ENGINEER OR AN PROCEDURE PLACEHOLDER Routine 05/19/2024 9:51 AM AIR CONDITIONING ENGINEER OR AN PROCEDURE PLACEHOLDER Routine 05/19/2024 9:46 AM AIR CONDITIONING ENGINEER OR AN ELECTIVE ENDOTRACHEAL AIRWAY Routine 05/19/2024 9:46 AM AIR CONDITIONING ENGINEER POC BLOOD GAS AND CHEMISTRIES, ARTERIAL Routine 05/19/2024 8:35 AM AIR CONDITIONING ENGINEER OPEN REDUCTION INTERNAL FIXATION ORBITAL FRACTURE. 05/19/2024 7:54 AM AIR CONDITIONING ENGINEER Fall, initial encounter Closed fracture of right orbital floor, initial encounter ([facility]) Case Notes 05/18@0831- Mayo Marvin via email make first start - DMF 05/14@0851- Per Dr. Lea via case msg - Outpatient, 2 hours- [id number]- Case msg sent to wrap yarn sorter for ctc and po destination- DMF POCT GLUCOSE DEVICE Routine 05/19/2024 7 :36 AM AIR CONDITIONING ENGINEER CRITICAL CARE Routine 05/19/2024 7:06 AM AIR CONDITIONING ENGINEER Fall, initial encounter PEP THERAPY Routine 05/19/2024 6:01 AM AIR CONDITIONING ENGINEER CRITICAL RESULT CALLBACK CHEMISTRY Timed 05/19/2024 5:18 AM AIR CONDITIONING ENGINEER TYPE AND SCREEN Timed 05/19/2024 5:18 AM AIR CONDITIONING ENGINEER BLOOD GAS, VENOUS Timed 05/19/2024 5:1 8 AM AIR CONDITIONING ENGINEER CRITICAL RESULT CALLBACK CHEMISTRY Timed 05/19/2024 3:41 AM AIR CONDITIONING ENGINEER BLOOD GAS, ARTERIAL Timed 05/19/2024 3 :41 AM AIR CONDITIONING ENGINEER XR CHEST 1 VIEW ED Urgent/IP Urgent 05/19/2024 3:20 AM AIR CONDITIONING ENGINEER CRITICAL CARE Routine 05/19/2024 3:00 AM AIR CONDITIONING ENGINEER POCT GLUCOSE DEVICE Routine 05/19/2024 2 :38 AM AIR CONDITIONING ENGINEER CTA/CTP RAPID STROKE Critical/Life-T hreatening 05/19/2024 2:26 AM AIR CONDITIONING ENGINEER POCT [id number]-[id number],WB - ISTAT Routine 05/19/2024 1:27 AM AIR CONDITIONING ENGINEER ARTERIAL BLOOD GAS W/LACTATE Routine 05/19/2024 1:22 AM AIR CONDITIONING ENGINEER POCT GLUCOSE DEVICE Routine 05/19/2024 1 :15 AM AIR CONDITIONING ENGINEER EGFR Routine 05/19/2024 12:55 AM AIR CONDITIONING ENGINEER POTASSIUM, WHOLE BLOOD STAT 05/19/2024 12:55 AM AIR CONDITIONING ENGINEER BASIC METABOLIC PANEL Routine 05/19/2024 12:55 AM AIR CONDITIONING ENGINEER CBC WITHOUT DIFFERENTIAL Routine 05/19/2024 12:55 AM AIR CONDITIONING ENGINEER MAGNESIUM Routine 05/19/2024 12:55 AM AIR CONDITIONING ENGINEER PHOSPHORUS Routine 05/19/2024 12:55 AM AIR CONDITIONING ENGINEER PEP THERAPY Routine 05/19/2024 12:00 AM AIR CONDITIONING ENGINEER PEP THERAPY Routine 05/18/2024 6:00 PM AIR CONDITIONING ENGINEER OR AN PROCEDURE PLACEHOLDER Routine 05/18/2024 4:41 PM AIR CONDITIONING ENGINEER OR AN ELECTIVE ENDOTRACHEAL AIRWAY Routine 05/18/2024 4:41 PM AIR CONDITIONING ENGINEER OR AN PROCEDURE PLACEHOLDER Routine 05/18/2024 3:47 PM AIR CONDITIONING ENGINEER RELEASE CARPAL TUNNEL 05/18/2024 3:02 PM AIR CONDITIONING ENGINEER Other closed intra-articular fracture of distal end of left radius, initial encounter Case Notes 05/15 per yesenia via case message, ctc is 90 min and post op is surg floor- RC OPEN REDUCTION INTERNAL FIXATION RADIUS - DISTAL 05/18/2024 3:02 PM AIR CONDITIONING ENGINEER Other closed intra-articular fracture of distal end of left radius, initial encounter Case Notes 05/15 per yesenia via case message, ctc is 90 min and post op is surg floor- RC PEP THERAPY Routine 05/18/2024 12:00 PM AIR CONDITIONING ENGINEER PEP THERAPY Routine 05/18/2024 6:01 AM AIR CONDITIONING ENGINEER PEP THERAPY Routine 05/18/2024 12:00 AM AIR CONDITIONING ENGINEER EGFR Routine 05/17/2024 11:56 PM AIR CONDITIONING ENGINEER BASIC METABOLIC PANEL Routine 05/17/2024 11:56 PM AIR CONDITIONING ENGINEER CBC WITHOUT DIFFERENTIAL Routine 05/17/2024 11:56 PM AIR CONDITIONING ENGINEER MAGNESIUM Routine 05/17/2024 11:56 PM AIR CONDITIONING ENGINEER PHOSPHORUS Routine 05/17/2024 11:56 PM AIR CONDITIONING ENGINEER PEP THERAPY Routine 05/17/2024 6:00 PM AIR CONDITIONING ENGINEER PEP THERAPY Routine 05/17/2024 1:43 PM AIR CONDITIONING ENGINEER PEP THERAPY Routine 05/17/2024 1:43 PM AIR CONDITIONING ENGINEER PEP THERAPY Routine 05/17/2024 1:43 PM AIR CONDITIONING ENGINEER PEP THERAPY Routine 05/17/2024 1:43 PM AIR CONDITIONING ENGINEER EGFR Routine 05/16/2024 10:25 PM AIR CONDITIONING ENGINEER BASIC METABOLIC PANEL Routine 05/16/2024 10:25 PM AIR CONDITIONING ENGINEER CBC WITHOUT DIFFERENTIAL Routine 05/16/2024 10:25 PM AIR CONDITIONING ENGINEER MAGNESIUM Routine 05/16/2024 10:25 PM AIR CONDITIONING ENGINEER PHOSPHORUS Routine 05/16/2024 10:25 PM AIR CONDITIONING ENGINEER EGFR Routine 05/15/2024 10:17 PM AIR CONDITIONING ENGINEER BASIC METABOLIC PANEL Routine 05/15/2024 10:17 PM AIR CONDITIONING ENGINEER CBC WITHOUT DIFFERENTIAL Routine 05/15/2024 10:17 PM AIR CONDITIONING ENGINEER MAGNESIUM Routine 05/15/2024 10:17 PM AIR CONDITIONING ENGINEER PHOSPHORUS Routine 05/15/2024 10:17 PM AIR CONDITIONING ENGINEER BLOOD GAS, ARTERIAL STAT 05/15/2024 11:40 AM AIR CONDITIONING ENGINEER TRANSTHORACIC ECHO (TTE) COMPLETE W DOPPLER/CF W CONTRAST Routine 05/15/2024 10:00 AM AIR CONDITIONING ENGINEER EGFR Routine 05/15/2024 8:13 AM AIR CONDITIONING ENGINEER BASIC METABOLIC PANEL Routine 05/15/2024 8:13 AM AIR CONDITIONING ENGINEER CBC WITHOUT DIFFERENTIAL Routine 05/15/2024 8:13 AM AIR CONDITIONING ENGINEER MAGNESIUM Routine 05/15/2024 8:13 AM AIR CONDITIONING ENGINEER PHOSPHORUS Routine 05/15/2024 8:13 AM AIR CONDITIONING ENGINEER ECG 12-LEAD STAT 05/15/2024 7:03 AM AIR CONDITIONING ENGINEER ECG 12-LEAD STAT 05/15/2024 7:02 AM AIR CONDITIONING ENGINEER from Last 3 Months Results * TRANSTHORACIC ECHO (TTE) COMPLETE W DOPPLER/CF WO CONTRAST (08/06/2024 2:36 PM CDT) EF Mod BP 52 % CONS SCIMAGE Anatomical Region Laterality Modality Ultrasound 08/06/2024 1:53 PM CDT Narrative 08/06/2024 3:20 PM CDT [facility] [address], [address], [place] [address] P:[phone] P:[phone] Echocardiographic Report Patient Name: LORRAINE WALLER J : 1945 Study Date: 08/06/2024 1:53:54 [...] FINDINGS: Interpretation Site: Exam was interpreted at [facility]. Left Ventricle: Normal left ventricular systolic function. [...] fibrillation. Electronically Signed By: Dr. Nedra Burns [facility] 08/06/2024 3:19:51 PM CDT Procedure Note Nedra Burns MD - 08/06/2024 [facility] [address], [address] [address] P:[phone] P:[phone] Echocardiographic Report Patient Name: LORRAINE WALLER J : 1945 Study Date: 08/06/2024 1:53:54 [...] FINDINGS: Interpretation Site: Exam was interpreted at [facility]. Left Ventricle: Normal left ventricular systolic function. [...] fibrillation. Electronically Signed By: Dr. Nedra Burns [facility] 08/06/2024 3:19:51 PM CDT [facility] Ludin Jimenez MD CV ECHO PROCEDURES Kylie l Result * XR Wrist Left 3 or More Views (06/23/2024 12:07 PM CDT) Anatomical Region Laterality Modality Upper Extremities, Wrist Left Compute d Radiography 06/23/2024 12:4 7 PM CDT Impressions 06/23/2024 12:47 PM CDT 1. Interval reduction and internal fixation of left intra-articular distal left radius fracture with mild residual articular surface incongruence. 2. Unchanged widening of the scapholunate interval with rotatory subluxation of the scaphoid compatible with underlying ligamentous injury. 3. 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 Electronically signed by: Harish Grigsby M.D. Narrative 06/23/2024 12:47 PM CDT EXAMINATION: XR WRIST LEFT 3 OR MORE VIEWS HISTORY: Left wrist fracture follow-up FINDINGS: 3 view examination of the left wrist is read with comparison to 05/13/2024. Interval reduction and internal fixation of intra-articular distal left radius fracture stabilized by a Huynh plate and screws. Implants are intact. Unchanged mild distal radial articular surface incongruence. Unchanged mild radiocarpal osteoarthritis with negative ulnar variance. Unchanged widening of the scapholunate interval with volar rotatory subluxation of the scaphoid. 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 Procedure Note Darci Grigsby, Harish Lindquist MD - 06/23/2024 EXAMINATION: XR WRIST LEFT 3 OR MORE VIEWS HISTORY: Left wrist fracture follow-up FINDINGS: 3 view examination of the left wrist is read with comparison to 05/13/2024. Interval reduction and internal fixation of intra-articular distal left radius fracture stabilized by a Huynh plate and screws. Implants are intact. Unchanged mild distal radial articular surface incongruence. Unchanged mild radiocarpal osteoarthritis with negative ulnar variance. Unchanged widening of the scapholunate interval with volar rotatory subluxation of the scaphoid. 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 IMPRESSION: 1. Interval reduction and internal fixation of left intra-articular distal left radius fracture with mild residual articular surface incongruence. 2. Unchanged widening of the scapholunate interval with rotatory subluxation of the scaphoid compatible with underlying ligamentous injury. 3. 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 Electronically signed by: Harish Grigsby M.D. Margy Walker MD PhD IMG XR PROCEDURES Final Result * FL Modified Barium Swallow W Video (05/27/2024 10:35 AM AIR CONDITIONING ENGINEER) Anatomical Region Laterality Modality Head and Neck N/A Radio Fluoroscop y 05/27/2024 11:0 1 AM AIR CONDITIONING ENGINEER Impressions 05/27/2024 11:14 AM AIR CONDITIONING ENGINEER The swallowing mechanism is normal; see above [...] Serrano M.D., Ph.D Narrative 05/27/2024 11:14 AM AIR CONDITIONING ENGINEER EXAMINATION: MODIFIED BARIUM SWALLOW HISTORY: Dysphagia. TECHNIQUE: [...] Murtaza Serrano M.D., Ph.D us Debby Gaona FELLING MACHINE OPERATOR IMG FLUOROSCOPY PROCED URES Final Result * eGFR (05/26/2024 9:12 PM AIR CONDITIONING ENGINEER) eGFR 88 >=60 mL/min/1. 73 m2 Comment: [...] last reviewed 2021. Blood 05/26/2024 9:12 PM AIR CONDITIONING ENGINEER 05/26/2024 9:54 PM AIR CONDITIONING ENGINEER us Christiano Ko MD LAB BLOOD ORDERABLES Final Result [facility] Department [place] [address] * (ABNORMAL) CBC without differential (05/26/2024 9:12 PM AIR CONDITIONING ENGINEER) WBC 8.8 3.8 - 9.9 K/cumm Hgb 9.7(L) 11.9 - 15.5 g/dL [facility] Hct 32.8(L) 35.6 - 45.5 % [facility] Plt 209 150 - 400 K/cumm [facility] MPV 11.9 9.1 - 12.3 fL [facility] RBC 3.36(L) 3.90 - 5.20 M/cumm [facility] MCV 97.6(H) 81.3 - 96.4 fL [facility] MCH 28.9 27.1 - 33.3 pg [facility] MCHC 29.6(L) 32.3 - 35.7 g/dL [facility] RDW CV 14.2 11.1 - 14.9 % [facility] RDW SD 50.4(H) 35.7 - 48.1 fL [facility] NRBC abs 0.00 0.00 - 0.01 K/cumm [facility] Blood 05/26/2024 9:12 PM AIR CONDITIONING ENGINEER 05/26/2024 9:54 PM AIR CONDITIONING ENGINEER Christiano Ko MD LAB BLOOD ORDERABLES Final Result [facility] [place] [address] * Phosphorus (05/26/2024 9:12 PM AIR CONDITIONING ENGINEER) Phosphorus, pl 2.8 2.3 - 4.5 mg/dL Blood 05/26/2024 9:12 PM AIR CONDITIONING ENGINEER 05/26/2024 9:54 PM AIR CONDITIONING ENGINEER Christiano Ko MD LAB BLOOD ORDERABLES Final Result [facility] [place] [address] * Magnesium (05/26/2024 9:12 PM AIR CONDITIONING ENGINEER) Magnesium 2.0 1.4 - 2.5 mg/dL Blood 05/26/2024 9:12 PM AIR CONDITIONING ENGINEER 05/26/2024 9:54 PM AIR CONDITIONING ENGINEER Christiano Ko MD LAB BLOOD ORDERABLES Final Result [facility] Department [place] [address] * Basic metabolic panel (05/26/2024 9:12 PM AIR CONDITIONING ENGINEER) [facility] Sodium 143 135 - 145 mmol/L Potassium, pl 4.2 3.3 - 4.9 mmol/L [facility] Chloride 102 97 - 110 mmol/L [facility] CO2 31 22 - 32 mmol/L [facility] Anion gap 10 2 - 15 mmol/L [facility] BUN 21 6 - 25 mg/dL [facility] Creatinine 0.71 0.60 - 1.10 mg/dL [facility] Glucose 165 70 - 199 mg/dL [facility] Comment: Interpretive Data Fasting glucose >/= [...] 2022. Calcium 9.3 8.5 - 10.3 mg/dL [facility] Blood 05/26/2024 9:12 PM AIR CONDITIONING ENGINEER 05/26/2024 9:54 PM AIR CONDITIONING ENGINEER Christiano Ko MD LAB BLOOD ORDERABLES Final Result [facility] Department [place] [address] * eGFR (05/25/2024 9:54 PM AIR CONDITIONING ENGINEER) [facility] eGFR >90 >=60 mL/min/1. 73 m2 [...] last reviewed 2021. Blood 05/25/2024 9:54 PM AIR CONDITIONING ENGINEER 05/25/2024 10:27 PM AIR CONDITIONING ENGINEER us Christiano Ko MD LAB BLOOD ORDERABLES Final Result [facility] Department [place] [address] * (ABNORMAL) CBC without differential (05/25/2024 9:54 PM AIR CONDITIONING ENGINEER) WBC 6.4 3.8 - 9.9 K/cumm Hgb 9.4(L) 11.9 - 15.5 g/dL [facility] Hct 31.2(L) 35.6 - 45.5 % [facility] Plt 170 150 - 400 K/cumm [facility] MPV 11.5 9.1 - 12.3 fL [facility] RBC 3.22(L) 3.90 - 5.20 M/cumm [facility] MCV 96.9(H) 81.3 - 96.4 fL [facility] MCH 29.2 27.1 - 33.3 pg [facility] MCHC 30.1(L) 32.3 - 35.7 g/dL [facility] RDW CV 14.3 11.1 - 14.9 % [facility] RDW SD 50.5(H) 35.7 - 48.1 fL [facility] NRBC abs 0.00 0.00 - 0.01 K/cumm [facility] Blood 05/25/2024 9:54 PM AIR CONDITIONING ENGINEER 05/25/2024 10:27 PM AIR CONDITIONING ENGINEER Christiano Ko MD LAB BLOOD ORDERABLES Final Result Performing Organization Address City/[facility] Co de Phone Number [facility] [place] [address] * Phosphorus (05/25/2024 9:54 PM AIR CONDITIONING ENGINEER) Pathologist [facility] Phosphorus, pl 3.5 2.3 - 4.5 mg/dL Blood 05/25/2024 9:54 PM AIR CONDITIONING ENGINEER 05/25/2024 10:27 PM AIR CONDITIONING ENGINEER Christiano Ko MD LAB BLOOD ORDERABLES Final Result Performing Organization Address [facility] Co de Phone Number [facility] [place] [address] * Magnesium (05/25/2024 9:54 PM AIR CONDITIONING ENGINEER) [facility] Magnesium 2.1 1.4 - 2.5 mg/dL Blood 05/25/2024 9:54 PM AIR CONDITIONING ENGINEER 05/25/2024 10:27 PM AIR CONDITIONING ENGINEER Christiano Ko MD LAB BLOOD ORDERABLES Final Result Performing Organization Address [facility] Co de Phone Number [facility] [place] [address] * (ABNORMAL) Basic metabolic panel (05/25/2024 9:54 PM AIR CONDITIONING ENGINEER) Pathologist [facility] Sodium 145 135 - 145 mmol/L Potassium, pl 4.4 3.3 - 4.9 mmol/L [facility] Chloride 105 97 - 110 mmol/L [facility] CO2 33(H) 22 - 32 mmol/L [facility] Anion gap 7 2 - 15 mmol/L [facility] BUN 13 6 - 25 mg/dL [facility] Creatinine 0.66 0.60 - 1.10 mg/dL [facility] Glucose 112 70 - 199 mg/dL [facility] Comment: Interpretive Data Fasting glucose >/= [...] 2022. Calcium 9.2 8.5 - 10.3 mg/dL [facility] Blood 05/25/2024 9:54 PM AIR CONDITIONING ENGINEER 05/25/2024 10:27 PM AIR CONDITIONING ENGINEER Christiano Ko MD LAB BLOOD ORDERABLES Final Result [facility] Department [place] [address] * ECG 12 lead (05/24/2024 10:55 PM AIR CONDITIONING ENGINEER) Ventricular Rate EKG/Min 99 BPM [facility] QRS-Interval (MSEC) 86 ms [facility] QT-Interval (MSEC) 364 ms [facility] QTc 467 ms [facility] R [place] 91 degrees [facility] T [place] 160 degrees [facility] Diagnosis Atrial fibrillation/fl utter Rightward axis Low voltage QRS Cannot rule out Anterior infarct , age undetermined ST & T wave abnormality, consider lateral ischemia Abnormal ECG When compared with ECG of 23-MAY-2024 23:24, (unconfirmed) T wave inversion no longer evident in Anterior leads Confirmed by GABO PIEDRA M.D ([id number]) on 05/25/2024 3:55:52 PM [facility] 05/24/2024 10:5 5 PM AIR CONDITIONING ENGINEER 05/25/2024 3:55 PM AIR CONDITIONING ENGINEER us Christiano Ko MD ECG ORDERABLES Final Resul t [facility] * eGFR (05/24/2024 8:54 PM AIR CONDITIONING ENGINEER) eGFR 90 >=60 mL/min/1. 73 m2 Comment: [...] last reviewed 2021. Blood 05/24/2024 8:54 PM AIR CONDITIONING ENGINEER 05/24/2024 9:30 PM AIR CONDITIONING ENGINEER us Christiano Ko MD LAB BLOOD ORDERABLES Final Result [facility] [place] [address] * (ABNORMAL) CBC without differential (05/24/2024 8:54 PM AIR CONDITIONING ENGINEER) WBC 7.1 3.8 - 9.9 K/cumm Hgb 9.1(L) 11.9 - 15.5 g/dL [facility] Hct 29.6(L) 35.6 - 45.5 % [facility] Plt 162 150 - 400 K/cumm [facility] MPV 11.4 9.1 - 12.3 fL [facility] RBC 3.10(L) 3.90 - 5.20 M/cumm [facility] MCV 95.5 81.3 - 96.4 fL [facility] MCH 29.4 27.1 - 33.3 pg [facility] MCHC 30.7(L) 32.3 - 35.7 g/dL [facility] RDW CV 14.5 11.1 - 14.9 % [facility] RDW SD 50.9(H) 35.7 - 48.1 fL [facility] NRBC abs 0.00 0.00 - 0.01 K/cumm [facility] Blood 05/24/2024 8:54 PM AIR CONDITIONING ENGINEER 05/24/2024 9:31 PM AIR CONDITIONING ENGINEER Christiano Ko MD LAB BLOOD ORDERABLES Final Result [facility] [place] [address] * Phosphorus (05/24/2024 8:54 PM AIR CONDITIONING ENGINEER) Phosphorus, pl 2.5 2.3 - 4.5 mg/dL Blood 05/24/2024 8:54 PM AIR CONDITIONING ENGINEER 05/24/2024 9:30 PM AIR CONDITIONING ENGINEER Christiano Ko MD LAB BLOOD ORDERABLES Final Result [facility] [place] [address] * Magnesium (05/24/2024 8:54 PM AIR CONDITIONING ENGINEER) Magnesium 2.0 1.4 - 2.5 mg/dL Blood 05/24/2024 8:54 PM AIR CONDITIONING ENGINEER 05/24/2024 9:30 PM AIR CONDITIONING ENGINEER Christiano Ko MD LAB BLOOD ORDERABLES Final Result Performing Organization Address City/[facility]/ZIP Co de Phone Number [facility] Department [place] [address] * (ABNORMAL) Basic metabolic panel (05/24/2024 8:54 PM AIR CONDITIONING ENGINEER) Pathologist [facility] Sodium 146(H) 135 - 145 mmol/L Potassium, pl 4.8 3.3 - 4.9 mmol/L [facility] Chloride 108 97 - 110 mmol/L [facility] CO2 30 22 - 32 mmol/L [facility] Anion gap 8 2 - 15 mmol/L [facility] BUN 19 6 - 25 mg/dL [facility] Creatinine 0.70 0.60 - 1.10 mg/dL [facility] Glucose 104 70 - 199 mg/dL [facility] Comment: Interpretive Data Fasting glucose >/= [...] 2022. Calcium 9.1 8.5 - 10.3 mg/dL [facility] Blood 05/24/2024 8:54 PM AIR CONDITIONING ENGINEER 05/24/2024 9:30 PM AIR CONDITIONING ENGINEER us Christiano Ko MD LAB BLOOD ORDERABLES Final Result Performing Organization Address [facility] Co de Phone Number [facility] Department [place] [address] * ECG 12 lead (05/23/2024 11:24 PM AIR CONDITIONING ENGINEER) Pathologist [facility] Ventricular Rate EKG/Min 88 BPM [facility] QRS-Interval (MSEC) 84 ms [facility] QT-Interval (MSEC) 364 ms [facility] QTc 440 ms [facility] R [place] 96 degrees [facility] T [place] 148 degrees [facility] Diagnosis [...] [facility] 05/23/2024 11:2 4 PM AIR CONDITIONING ENGINEER 05/26/2024 11:12 AM AIR CONDITIONING ENGINEER us Christiano Ko MD ECG ORDERABLES Final Resul t [facility] * eGFR (05/23/2024 8:13 PM AIR CONDITIONING ENGINEER) Pathologist [facility] eGFR 80 >=60 mL/min/1. 73 m2 Comment: [...] last reviewed 2021. Blood 05/23/2024 8:13 PM AIR CONDITIONING ENGINEER 05/23/2024 9:00 PM AIR CONDITIONING ENGINEER us Christiano Ko MD LAB BLOOD ORDERABLES Final Result Performing Organization Address City/[facility] Co de Phone Number [facility] Department [place] [address] * (ABNORMAL) CBC without differential (05/23/2024 8:13 PM AIR CONDITIONING ENGINEER) Pathologist [facility] WBC 7.3 3.8 - 9.9 K/cumm Hgb 8.7(L) 11.9 - 15.5 g/dL [facility] Hct 29.1(L) 35.6 - 45.5 % [facility] Plt 153 150 - 400 K/cumm [facility] MPV 11.5 9.1 - 12.3 fL [facility] RBC 3.00(L) 3.90 - 5.20 M/cumm [facility] MCV 97.0(H) 81.3 - 96.4 fL [facility] MCH 29.0 27.1 - 33.3 pg [facility] MCHC 29.9(L) 32.3 - 35.7 g/dL [facility] RDW CV 14.6 11.1 - 14.9 % [facility] RDW SD 52.3(H) 35.7 - 48.1 fL [facility] NRBC abs 0.00 0.00 - 0.01 K/cumm [facility] Blood 05/23/2024 8:13 PM AIR CONDITIONING ENGINEER 05/23/2024 9:03 PM AIR CONDITIONING ENGINEER us Christiano Ko MD LAB BLOOD ORDERABLES Final Result [facility] [place] [address] * (ABNORMAL) Phosphorus (05/23/2024 8:13 PM AIR CONDITIONING ENGINEER) Pathologist [facility] Phosphorus, pl 2.2(L) 2.3 - 4.5 mg/dL Blood 05/23/2024 8:1 3 PM AIR CONDITIONING ENGINEER 05/23/2024 9:00 PM AIR CONDITIONING ENGINEER Christiano Ko MD LAB BLOOD ORDERABLES Final Result Performing Organization Address City/[facility]/ZIP Co de Phone Number [facility] [place] [address] * Magnesium (05/23/2024 8:13 PM AIR CONDITIONING ENGINEER) [facility] Magnesium 2.0 1.4 - 2.5 mg/dL Blood 05/23/2024 8:13 PM AIR CONDITIONING ENGINEER 05/23/2024 9:00 PM AIR CONDITIONING ENGINEER Christiano Ko MD LAB BLOOD ORDERABLES Final Result Performing Organization Address [facility] de Phone Number [facility] Department [place] [address] * Basic metabolic panel (05/23/2024 8:13 PM AIR CONDITIONING ENGINEER) [facility] Sodium 145 135 - 145 mmol/L Potassium, pl 4.2 3.3 - 4.9 mmol/L [facility] Chloride 106 97 - 110 mmol/L [facility] CO2 32 22 - 32 mmol/L [facility] Anion gap 7 2 - 15 mmol/L [facility] BUN 20 6 - 25 mg/dL [facility] Creatinine 0.77 0.60 - 1.10 mg/dL [facility] Glucose 148 70 - 199 mg/dL [facility] Comment: Interpretive Data Fasting glucose >/= [...] 2022. Calcium 8.6 8.5 - 10.3 mg/dL [facility] Blood 05/23/2024 8:13 PM AIR CONDITIONING ENGINEER 05/23/2024 9:00 PM AIR CONDITIONING ENGINEER Result [facility] Christiano Ko MD LAB BLOOD ORDERABLES Final Result Performing Organization Address City/[facility]/ZIP Co de Phone Number [facility] Department [place] [address] * Critical Care (05/23/2024 6:40 AM AIR CONDITIONING ENGINEER) Narrative Kelvin Delgado MD - 05/23/2024 6:40 AM AIR CONDITIONING ENGINEER Kelvin Delgado MD 05/23/2024 5:18 PM Critical [...] plan with the patient's team and other medical/internal audit consultant staff. This time was in addition to and separate from care provided by other practitioners on this day of service. I spent time reviewing and interpreting data from bedside monitors, laboratory results, and imaging and I spent time documenting in the medical record Olga Meehan FELLING MACHINE OPERATOR IN CLINIC/BEDSIDE O RDERABLES Final Result * POCT glucose (05/22/2024 11:10 PM AIR CONDITIONING ENGINEER) Glucose, POC 98 70 - 199 mg/dL Blood 05/22/2024 11:1 0 PM AIR CONDITIONING ENGINEER 05/22/2024 11:10 PM AIR CONDITIONING ENGINEER Result [facility] Christiano Ko MD LAB POCT ORDERABLES - DEVIC E Final Result Performing Organization Address [facility]/ZIP Co de Phone Number [facility] Department [place] [address] * eGFR (05/22/2024 8:23 PM AIR CONDITIONING ENGINEER) [facility] eGFR 71 >=60 mL/min/1. 73 m2 [...] last reviewed 2021. Blood 05/22/2024 8:23 PM AIR CONDITIONING ENGINEER 05/22/2024 8:36 PM AIR CONDITIONING ENGINEER Christiano Ko MD LAB BLOOD ORDERABLES Final Result [facility] One [facility] Department [place] [address] * (ABNORMAL) CBC without differential (05/22/2024 8:23 PM AIR CONDITIONING ENGINEER) [facility] WBC 7.0 3.8 - 9.9 K/cumm Hgb 8.9(L) 11.9 - 15.5 g/dL [facility] Hct 29.2(L) 35.6 - 45.5 % [facility] Plt 158 150 - 400 K/cumm [facility] MPV 11.0 9.1 - 12.3 fL [facility] RBC 3.03(L) 3.90 - 5.20 M/cumm [facility] MCV 96.4 81.3 - 96.4 fL [facility] MCH 29.4 27.1 - 33.3 pg [facility] MCHC 30.5(L) 32.3 - 35.7 g/dL [facility] RDW CV 14.8 11.1 - 14.9 % [facility] RDW SD 52.5(H) 35.7 - 48.1 fL [facility] NRBC abs 0.00 0.00 - 0.01 K/cumm [facility] Blood 05/22/2024 8:23 PM AIR CONDITIONING ENGINEER 05/22/2024 8:36 PM AIR CONDITIONING ENGINEER Christiano Ko MD LAB BLOOD ORDERABLES Final Result Performing Organization Address City/[facility]/ZIP Co de Phone Number [facility] Department [place] [address] * Phosphorus (05/22/2024 8:23 PM AIR CONDITIONING ENGINEER) Phosphorus, pl 3.0 2.3 - 4.5 mg/dL Blood 05/22/2024 8:23 PM AIR CONDITIONING ENGINEER 05/22/2024 8:36 PM AIR CONDITIONING ENGINEER Christiano Ko MD LAB BLOOD ORDERABLES Final Result Performing Organization Address [facility] Co de Phone Number [facility] Department [place] [address] * Magnesium (05/22/2024 8:23 PM AIR CONDITIONING ENGINEER) Magnesium 2.2 1.4 - 2.5 mg/dL Blood 05/22/2024 8:23 PM AIR CONDITIONING ENGINEER 05/22/2024 8:36 PM AIR CONDITIONING ENGINEER Christiano Ko MD LAB BLOOD ORDERABLES Final Result Performing Organization Address City/[facility]/ZIP Co de Phone Number [facility] [place] [address] * (ABNORMAL) Basic metabolic panel (05/22/2024 8:23 PM AIR CONDITIONING ENGINEER) Sodium 146(H) 135 - 145 mmol/L Potassium, pl 4.1 3.3 - 4.9 mmol/L [facility] Chloride 106 97 - 110 mmol/L [facility] CO2 33(H) 22 - 32 mmol/L [facility] Anion gap 7 2 - 15 mmol/L [facility] BUN 26(H) 6 - 25 mg/dL [facility] Creatinine 0.85 0.60 - 1.10 mg/dL [facility] Glucose 122 70 - 199 mg/dL [facility] Comment: Interpretive Data Fasting glucose >/= [...] 2022. Calcium 8.2(L) 8.5 - 10.3 mg/dL [facility] Blood 05/22/2024 8:23 PM AIR CONDITIONING ENGINEER 05/22/2024 8:36 PM AIR CONDITIONING ENGINEER Christiano Ko MD LAB BLOOD ORDERABLES Final Result [facility] One [facility] Department [place] [address] * Critical Care (05/22/2024 7:32 PM AIR CONDITIONING ENGINEER) Narrative Murtaza Garcia MD - 05/22/2024 7:32 PM AIR CONDITIONING ENGINEER Murtaza Garcia MD 05/23/2024 6:19 AM Critical [...] plan with the patient's team and other medical/internal audit consultant staff. This time was in addition to and separate from care provided by other practitioners on this day of service. us Preston [facility]A [facility] DE ORDERABLES Final Result * POCT glucose (05/22/2024 6:58 PM AIR CONDITIONING ENGINEER) Glucose, POC 115 70 - 199 mg/dL Blood 05/22/2024 6:58 PM AIR CONDITIONING ENGINEER 05/22/2024 6:58 PM AIR CONDITIONING ENGINEER Christiano Ko MD LAB POCT ORDERABLES - DEVIC E Final Result Performing Organization Address City/[facility]/ZIP Co de Phone Number [facility] Department [place] [address] * (ABNORMAL) Iron profile w/ IBC (05/22/2024 3:44 PM AIR CONDITIONING ENGINEER) [facility] Iron 29(L) 35 - 145 mcg/dL TIBC 258 250 - 400 mcg/dL [facility] Transferrin saturation 11(L) 20 - 50 % [facility] Blood 05/22/2024 3:44 PM AIR CONDITIONING ENGINEER 05/22/2024 4:15 PM AIR CONDITIONING ENGINEER Earnestine Kelly MD LAB BLOOD ORDERABLES Kylie l Result [facility] [place] [address] * POCT glucose (05/22/2024 3:03 PM AIR CONDITIONING ENGINEER) Glucose, POC 111 70 - 199 mg/dL Blood 05/22/2024 3:03 PM AIR CONDITIONING ENGINEER 05/22/2024 3:03 PM AIR CONDITIONING ENGINEER us Christiano Ko MD LAB POCT ORDERABLES - DEVIC E Final Result Performing Organization Address [facility] de Phone Number [facility] [place] [address] * POCT glucose (05/22/2024 10:55 AM AIR CONDITIONING ENGINEER) Glucose, POC 130 70 - 199 mg/dL Blood 05/22/2024 10:5 5 AM AIR CONDITIONING ENGINEER 05/22/2024 10:55 AM AIR CONDITIONING ENGINEER us Christiano Ko MD LAB POCT ORDERABLES - DEVIC E Final Result Performing Organization Address [facility] de Phone Number [facility] [place] [address] * POCT glucose (05/22/2024 7:01 AM AIR CONDITIONING ENGINEER) Glucose, POC 128 70 - 199 mg/dL Blood 05/22/2024 7:01 AM AIR CONDITIONING ENGINEER 05/22/2024 7:01 AM AIR CONDITIONING ENGINEER us Christiano Ko MD LAB POCT ORDERABLES - DEVIC E Final Result Performing Organization Address [facility] [place] [address] * Critical Care (05/22/2024 6:44 AM AIR CONDITIONING ENGINEER) Narrative Earnestine Kelly MD - 05/22/2024 6:44 AM AIR CONDITIONING ENGINEER Earnestine Kelly MD 05/22/2024 6:05 PM Critical [...] plan with the ICU team and other medical/internal audit consultant staff, making frequent assessments and decisions [...] (ABNORMAL) Blood gas, arterial (05/22/2024 4:31 AM AIR CONDITIONING ENGINEER) pH, Art 7.44 7.35 - 7.45 PCO2, Arterial 49(H) 35 - 45 mmHg [facility] PO2, Arterial 136(H) 83 - 108 mmHg [facility] HCO3 Art (Calculated) 34(H) 20 - 30 mmol/L [facility] BE, art 8 mmol/L [facility] Comment: Interpretive Data No Reference Range Established Current Interpretive Data was last revised on 2017 O2 Sat Art (Measured) 100(H) 90 - 95 % [facility] Blood 05/22/2024 4:31 AM AIR CONDITIONING ENGINEER 05/22/2024 4:37 AM AIR CONDITIONING ENGINEER Lynsey Otoole NP LAB BLOOD ORDER TEDDY Final Result [facility] One [facility] [place] [address] * POCT glucose (05/22/2024 3:02 AM AIR CONDITIONING ENGINEER) Glucose, POC 149 70 - 199 mg/dL Blood 05/22/2024 3:02 AM AIR CONDITIONING ENGINEER 05/22/2024 3:02 AM AIR CONDITIONING ENGINEER Christiano Ko MD LAB POCT ORDERABLES - DEVIC E Final Result Performing Organization Address City/State/[facility] Co de Phone Number [facility] [place] [address] * POCT glucose (05/21/2024 10:54 PM AIR CONDITIONING ENGINEER) Glucose, POC 122 70 - 199 mg/dL Blood 05/21/2024 10:5 4 PM AIR CONDITIONING ENGINEER 05/21/2024 10:54 PM AIR CONDITIONING ENGINEER Christiano Ko MD LAB POCT ORDERABLES - DEVIC E Final Result Performing Organization Address City/[facility] Co de Phone Number [facility] [place] [address] * eGFR (05/21/2024 8:54 PM AIR CONDITIONING ENGINEER) eGFR 71 >=60 mL/min/1. 73 m2 Comment: [...] last reviewed 2021. Blood 05/21/2024 8:54 PM AIR CONDITIONING ENGINEER 05/21/2024 9:16 PM AIR CONDITIONING ENGINEER us Christiano Ko MD LAB BLOOD ORDERABLES Final Result Performing Organization Address City/[facility]/ZIP Co de Phone Number [facility] Department [place] [address] * (ABNORMAL) CBC without differential (05/21/2024 8:54 PM AIR CONDITIONING ENGINEER) WBC 6.7 3.8 - 9.9 K/cumm Hgb 9.5(L) 11.9 - 15.5 g/dL [facility] Hct 29.7(L) 35.6 - 45.5 % [facility] Plt 145(L) 150 - 400 K/cumm [facility] MPV 10.9 9.1 - 12.3 fL [facility] RBC 3.14(L) 3.90 - 5.20 M/cumm [facility] MCV 94.6 81.3 - 96.4 fL [facility] MCH 30.3 27.1 - 33.3 pg [facility] MCHC 32.0(L) 32.3 - 35.7 g/dL [facility] RDW CV 14.8 11.1 - 14.9 % [facility] RDW SD 51.6(H) 35.7 - 48.1 fL [facility] NRBC abs 0.00 0.00 - 0.01 K/cumm [facility] Blood 05/21/2024 8:54 PM AIR CONDITIONING ENGINEER 05/21/2024 9:16 PM AIR CONDITIONING ENGINEER us Christiano Ko MD LAB BLOOD ORDERABLES Final Result [facility] [place] [address] * Phosphorus (05/21/2024 8:54 PM AIR CONDITIONING ENGINEER) Phosphorus, pl 2.5 2.3 - 4.5 mg/dL Blood 05/21/2024 8:54 PM AIR CONDITIONING ENGINEER 05/21/2024 9:16 PM AIR CONDITIONING ENGINEER Christiano Ko MD LAB BLOOD ORDERABLES Final Result Performing Organization Address [facility] Co de Phone Number [facility] [place] [address] * Magnesium (05/21/2024 8:54 PM AIR CONDITIONING ENGINEER) [facility] Magnesium 1.9 1.4 - 2.5 mg/dL Blood 05/21/2024 8:54 PM AIR CONDITIONING ENGINEER 05/21/2024 9:16 PM AIR CONDITIONING ENGINEER Christiano Ko MD LAB BLOOD ORDERABLES Final Result Performing Organization Address [facility] [place] [address] * (ABNORMAL) Blood gas, arterial (05/21/2024 8:54 PM AIR CONDITIONING ENGINEER) [facility] pH, Art 7.45 7.35 - 7.45 PCO2, Arterial 52(H) 35 - 45 mmHg [facility] PO2, Arterial 63(L) 83 - 108 mmHg [facility] HCO3 Art (Calculated) 37(H) 20 - 30 mmol/L [facility] BE, art 10 mmol/L [facility] Comment: Interpretive Data No Reference Range Established Current Interpretive Data was last revised on 2017 O2 Sat Art (Measured) 92 90 - 95 % [facility] Blood 05/21/2024 8:54 PM AIR CONDITIONING ENGINEER 05/21/2024 9:09 PM AIR CONDITIONING ENGINEER Christiano Ko MD LAB BLOOD ORDERABLES Final Result Performing Organization Address [facility] de Phone Number [facility] [place] [address] * (ABNORMAL) Basic metabolic panel (05/21/2024 8:54 PM AIR CONDITIONING ENGINEER) Sodium 143 135 - 145 mmol/L Potassium, pl 3.5 3.3 - 4.9 mmol/L [facility] Chloride 101 97 - 110 mmol/L [facility] CO2 35(H) 22 - 32 mmol/L [facility] Anion gap 7 2 - 15 mmol/L [facility] BUN 19 6 - 25 mg/dL [facility] Creatinine 0.85 0.60 - 1.10 mg/dL [facility] Glucose 125 70 - 199 mg/dL [facility] Comment: Interpretive Data Fasting glucose >/= [...] 2022. Calcium 8.7 8.5 - 10.3 mg/dL [facility] Blood 05/21/2024 8:54 PM AIR CONDITIONING ENGINEER 05/21/2024 9:16 PM AIR CONDITIONING ENGINEER Christiano Ko MD LAB BLOOD ORDERABLES Final Result [facility] One [facility] Department [place] [address] * XR Chest 1 View (05/21/2024 8:36 PM AIR CONDITIONING ENGINEER) Anatomical Region Laterality Modality Body, Chest N/A Computed Radiogr aphy 05/22/2024 9:45 AM AIR CONDITIONING ENGINEER Impressions 05/22/2024 10:11 AM AIR CONDITIONING ENGINEER Comparison is made to radiograph dated 05/20/2024. [...] David Hogan M.D. Narrative 05/22/2024 10:11 AM AIR CONDITIONING ENGINEER EXAMINATION: 1 view chest radiograph Procedure Note [...] Result * Critical Care (05/21/2024 8:00 PM AIR CONDITIONING ENGINEER) Narrative Renay Weber MD - 05/21/2024 8:00 PM AIR CONDITIONING ENGINEER Renay Weber MD 05/28/2024 11:57 PM Critical [...] plan with the ICU team and other medical/internal audit consultant staff, making frequent assessments and decisions [...] spent time documenting in the medical record Lysney Otoole FELLING MACHINE OPERATOR IN CLINIC/[facility] DE ORDERABLES Final Result * POCT glucose (05/21/2024 7:43 PM AIR CONDITIONING ENGINEER) Glucose, POC 150 70 - 199 mg/dL Blood 05/21/2024 7:43 PM AIR CONDITIONING ENGINEER 05/21/2024 7:43 PM AIR CONDITIONING ENGINEER Result [facility] Christiano Ko MD LAB POCT ORDERABLES - DEVIC E Final Result [facility] One [facility] Department [place] [address] * (ABNORMAL) Blood gas, arterial (05/21/2024 3:11 PM AIR CONDITIONING ENGINEER) pH, Art 7.44 7.35 - 7.45 PCO2, Arterial 50(H) 35 - 45 mmHg [facility] PO2, Arterial 157(H) 83 - 108 mmHg [facility] HCO3 Art (Calculated) 35(H) 20 - 30 mmol/L [facility] BE, art 8 mmol/L [facility] Comment: Interpretive Data No Reference Range Established Current Interpretive Data was last revised on 2017 O2 Sat Art (Measured) 100(H) 90 - 95 % [facility] Blood 05/21/2024 3:11 PM AIR CONDITIONING ENGINEER 05/21/2024 3:16 PM AIR CONDITIONING ENGINEER Result [facility] Sebastian HINOJOSA LAB BLOOD ORDERABLES Fi nal Result Performing Organization Address City/[facility] Co de Phone Number [facility] [place] [address] * POCT glucose (05/21/2024 3:10 PM AIR CONDITIONING ENGINEER) Glucose, POC 135 70 - 199 mg/dL Blood 05/21/2024 3:10 PM AIR CONDITIONING ENGINEER 05/21/2024 3:10 PM AIR CONDITIONING ENGINEER Christiano Ko MD LAB POCT ORDERABLES - DEVIC E Final Result Performing Organization Address [facility] [place] [address] * POCT glucose (05/21/2024 11:14 AM AIR CONDITIONING ENGINEER) Glucose, POC 122 70 - 199 mg/dL Blood 05/21/2024 11:1 4 AM AIR CONDITIONING ENGINEER 05/21/2024 11:14 AM AIR CONDITIONING ENGINEER Christiano Ko MD LAB POCT ORDERABLES - DEVIC E Final Result Performing Organization Address [facility] Co de Phone Number [facility] [place] [address] * (ABNORMAL) Thyroid Function [place] (05/21/2024 9:07 AM AIR CONDITIONING ENGINEER) TSH 5.20(H) 0.30 - 4.20 mcIUnit/mL Blood 05/21/2024 9:07 AM AIR CONDITIONING ENGINEER 05/21/2024 9:28 AM AIR CONDITIONING ENGINEER us Sebastian HINOJOSA LAB BLOOD ORDERABLES Fi nal Result Performing Organization Address City/[facility] Co de Phone Number [facility] [place] [address] * Triglycerides (05/21/2024 9:07 AM AIR CONDITIONING ENGINEER) Triglycerides 139 <=149 mg/dL Comment: Interpretive Data [...] revised on 2017. Blood 05/21/2024 9:07 AM AIR CONDITIONING ENGINEER 05/21/2024 9:28 AM AIR CONDITIONING ENGINEER Narrative [facility] - 05/21/2024 9:56 AM AIR CONDITIONING ENGINEER While on propofol infusion. us Preston HINOJOSA LAB BLOOD ORDER TEDDY Final Result Performing Organization Address City/[facility]/ZIP Co de Phone Number [facility] Department [place] [address] * T4, free (05/21/2024 9:07 AM AIR CONDITIONING ENGINEER) Free T4 1.35 0.90 - 1.70 ng/dL Blood 05/21/2024 9:07 AM AIR CONDITIONING ENGINEER 05/21/2024 9:28 AM AIR CONDITIONING ENGINEER Narrative [facility] 05/21/2024 10:34 AM AIR CONDITIONING ENGINEER This test was reflexed from a TSH result. us Sebastian HINOJOSA LAB BLOOD ORDERABLES Ed ited Result - Final Performing Organization Address City/[facility]/ZIP Co de Phone Number [facility] Department [place] [address] * Ammonia (05/21/2024 9:07 AM AIR CONDITIONING ENGINEER) Ammonia 27 <=50 mcmol/L Blood 05/21/2024 9:07 AM AIR CONDITIONING ENGINEER 05/21/2024 9:29 AM AIR CONDITIONING ENGINEER us Sebastian HINOJOSA LAB BLOOD ORDERABLES Fi nal Result Performing Organization Address [facility] de Phone Number [facility] Department [place] [address] * POCT glucose (05/21/2024 7:24 AM AIR CONDITIONING ENGINEER) Glucose, POC 138 70 - 199 mg/dL Blood 05/21/2024 7:24 AM AIR CONDITIONING ENGINEER 05/21/2024 7:24 AM AIR CONDITIONING ENGINEER Christiano Ko MD LAB POCT ORDERABLES - DEVIC E Final Result Performing Organization Address [facility] de Phone Number [facility] Department [place] [address] * Critical Care (05/21/2024 7:02 AM AIR CONDITIONING ENGINEER) Narrative Earnestine Kelly MD - 05/21/2024 7:02 AM AIR CONDITIONING ENGINEER Earnestine Kelly MD 05/22/2024 3:03 PM Critical [...] plan with the ICU team and other medical/internal audit consultant staff, making frequent assessments and decisions [...] Result * POCT glucose (05/21/2024 3:47 AM AIR CONDITIONING ENGINEER) Glucose, POC 161 70 - 199 mg/dL Blood 05/21/2024 3:47 AM AIR CONDITIONING ENGINEER 05/21/2024 3:47 AM AIR CONDITIONING ENGINEER us Christiano Ko MD LAB POCT ORDERABLES - DEVIC E Final Result [facility] One [facility] Department [place] [address] * XR Chest 1 View (05/21/2024 12:12 AM AIR CONDITIONING ENGINEER) Anatomical Region Laterality Modality Body, Chest N/A Computed Radiogr aphy 05/21/2024 8:02 AM AIR CONDITIONING ENGINEER Impressions 05/21/2024 8:02 AM AIR CONDITIONING ENGINEER Comparison is made to radiograph of 05/20/2024 [...] Nestor Seth M.D. Narrative 05/21/2024 8:02 AM AIR CONDITIONING ENGINEER EXAMINATION: 1 view chest radiograph Procedure Note [...] Result * POCT glucose (05/20/2024 11:29 PM AIR CONDITIONING ENGINEER) Glucose, POC 140 70 - 199 mg/dL Blood 05/20/2024 11:2 9 PM AIR CONDITIONING ENGINEER 05/20/2024 11:29 PM AIR CONDITIONING ENGINEER Christiano Ko MD LAB POCT ORDERABLES - DEVIC E Final Result [facility] One [facility] Department [place] [address] * XR Abdomen 1 View AP (05/20/2024 8:05 PM AIR CONDITIONING ENGINEER) Anatomical Region Laterality Modality Body, Abdomen N/A Computed Radiogr aphy 05/21/2024 8:36 AM AIR CONDITIONING ENGINEER Impressions 05/21/2024 8:36 AM AIR CONDITIONING ENGINEER An enteric tube tip terminates in the distal gastric body, with the stylette in place. Relative paucity of bowel gas in the imaged upper abdomen. Dictated by: Kvng Pan MD The radiology attending physician has personally reviewed this study, and had reviewed and/or edited this written report and agrees with it. Electronically signed by: Renetta Farr M.D. Narrative 05/21/2024 8:36 AM AIR CONDITIONING ENGINEER EXAMINATION: Abdomen, one view. HISTORY: Check tube [...] it. Electronically signed by: Renetta Farr M.D. us Yesenia HINOJOSA IMG XR PROCEDURES F inal Result * eGFR (05/20/2024 7:44 PM AIR CONDITIONING ENGINEER) eGFR 75 >=60 mL/min/1. 73 m2 Comment: [...] last reviewed 2021. Blood 05/20/2024 7:44 PM AIR CONDITIONING ENGINEER 05/20/2024 8:03 PM AIR CONDITIONING ENGINEER us Christiano Ko MD LAB BLOOD ORDERABLES Final Result [facility] One [facility] Department [place] [address] * (ABNORMAL) CBC without differential (05/20/2024 7:44 PM AIR CONDITIONING ENGINEER) [facility] WBC 7.1 3.8 - 9.9 K/cumm Hgb 9.9(L) 11.9 - 15.5 g/dL [facility] Hct 31.5(L) 35.6 - 45.5 % [facility] Plt 157 150 - 400 K/cumm [facility] MPV 10.6 9.1 - 12.3 fL [facility] RBC 3.40(L) 3.90 - 5.20 M/cumm [facility] MCV 92.6 81.3 - 96.4 fL [facility] MCH 29.1 27.1 - 33.3 pg [facility] MCHC 31.4(L) 32.3 - 35.7 g/dL [facility] RDW CV 14.7 11.1 - 14.9 % [facility] RDW SD 50.2(H) 35.7 - 48.1 fL [facility] NRBC abs 0.00 0.00 - 0.01 K/cumm [facility] Blood 05/20/2024 7:44 PM AIR CONDITIONING ENGINEER 05/20/2024 7:56 PM AIR CONDITIONING ENGINEER Christiano Ko MD LAB BLOOD ORDERABLES Final Result Performing Organization Address [facility] Co de Phone Number [facility] [place] [address] * Phosphorus (05/20/2024 7:44 PM AIR CONDITIONING ENGINEER) [facility] Phosphorus, pl 3.9 2.3 - 4.5 mg/dL Blood 05/20/2024 7:44 PM AIR CONDITIONING ENGINEER 05/20/2024 7:56 PM AIR CONDITIONING ENGINEER Christiano Ko MD LAB BLOOD ORDERABLES Final Result Performing Organization Address [facility]/ZIP Co de Phone Number [facility] [place] [address] * Magnesium (05/20/2024 7:44 PM AIR CONDITIONING ENGINEER) Magnesium 2.3 1.4 - 2.5 mg/dL Blood 05/20/2024 7:44 PM AIR CONDITIONING ENGINEER 05/20/2024 7:56 PM AIR CONDITIONING ENGINEER Christiano Ko MD LAB BLOOD ORDERABLES Final Result Performing Organization Address City/[facility]/ZIP Co de Phone Number [facility] Department [place] [address] * (ABNORMAL) Basic metabolic panel (05/20/2024 7:44 PM AIR CONDITIONING ENGINEER) Pathologist [facility] Sodium 142 135 - 145 mmol/L Potassium, pl 4.0 3.3 - 4.9 mmol/L [facility] Chloride 98 97 - 110 mmol/L [facility] CO2 36(H) 22 - 32 mmol/L [facility] Anion gap 8 2 - 15 mmol/L [facility] BUN 18 6 - 25 mg/dL [facility] Creatinine 0.81 0.60 - 1.10 mg/dL [facility] Glucose 139 70 - 199 mg/dL [facility] Comment: Interpretive Data Fasting glucose >/= [...] 2022. Calcium 8.7 8.5 - 10.3 mg/dL [facility] Blood 05/20/2024 7:44 PM AIR CONDITIONING ENGINEER 05/20/2024 7:56 PM AIR CONDITIONING ENGINEER Christiano Ko MD LAB BLOOD ORDERABLES Final Result Performing Organization Address City/[facility]/ZIP Co de Phone Number [facility] Department [place] [address] * POCT glucose (05/20/2024 7:36 PM AIR CONDITIONING ENGINEER) Glucose, POC 149 70 - 199 mg/dL Blood 05/20/2024 7:36 PM AIR CONDITIONING ENGINEER 05/20/2024 7:36 PM AIR CONDITIONING ENGINEER us Christiano Ko MD LAB POCT ORDERABLES - DEVIC E Final Result [facility] Department [place] [address] * Critical Care (05/20/2024 6:22 PM AIR CONDITIONING ENGINEER) Narrative Renay Weber MD - 05/20/2024 6:22 PM AIR CONDITIONING ENGINEER Renay Weber MD 05/28/2024 11:45 PM Critical [...] plan with the ICU team and other medical/internal audit consultant staff, making frequent assessments and decisions [...] Result * POCT glucose (05/20/2024 3:33 PM AIR CONDITIONING ENGINEER) Glucose, POC 156 70 - 199 mg/dL Blood 05/20/2024 3:3 3 PM AIR CONDITIONING ENGINEER 05/20/2024 3:33 PM AIR CONDITIONING ENGINEER Christiano Ko MD LAB POCT ORDERABLES - DEVIC E Final Result Performing Organization Address [facility] Co de Phone Number [facility] [place] [address] * POCT glucose (05/20/2024 11:36 AM AIR CONDITIONING ENGINEER) Glucose, POC 166 70 - 199 mg/dL Blood 05/20/2024 11:3 6 AM AIR CONDITIONING ENGINEER 05/20/2024 11:36 AM AIR CONDITIONING ENGINEER Christiano Ko MD LAB POCT ORDERABLES - DEVIC E Final Result Performing Organization Address [facility] de Phone Number [facility] [place] [address] * POCT glucose (05/20/2024 7:28 AM AIR CONDITIONING ENGINEER) Glucose, POC 167 70 - 199 mg/dL Blood 05/20/2024 7:28 AM AIR CONDITIONING ENGINEER 05/20/2024 7:28 AM AIR CONDITIONING ENGINEER Christiano Ko MD LAB POCT ORDERABLES - DEVIC E Final Result Performing Organization Address [facility] [place] [address] * Critical Care (05/20/2024 7:27 AM AIR CONDITIONING ENGINEER) Narrative Earnestine Kelly MD - 05/20/2024 7:27 AM AIR CONDITIONING ENGINEER Earnestine Kelly MD 05/22/2024 3:02 PM Critical [...] plan with the ICU team and other medical/internal audit consultant staff, making frequent assessments and decisions [...] XR Chest 1 View (05/20/2024 6:25 AM AIR CONDITIONING ENGINEER) Anatomical Region Laterality Modality Body, Chest N/A Computed Radiogr aphy 05/20/2024 9:29 AM AIR CONDITIONING ENGINEER Impressions 05/20/2024 9:29 AM AIR CONDITIONING ENGINEER The current study is compared with the prior radiograph dated 05/19/2024. The endotracheal tube tip is 1.5 cm above the janis. Stable small left pleural effusion with underlying left lower lobe collapse. Small right pleural effusion with mild atelectasis is unchanged. Stable mild pulmonary edema. No pneumothorax. Stable cardiomegaly. Electronically signed by: Matt Willis MD, PHD Narrative 05/20/2024 9:29 AM AIR CONDITIONING ENGINEER EXAMINATION: 1 view chest radiograph Procedure Note [...] Result * POCT glucose (05/20/2024 3:47 AM AIR CONDITIONING ENGINEER) [facility] Glucose, POC 157 70 - 199 mg/dL Blood 05/20/2024 3:47 AM AIR CONDITIONING ENGINEER 05/20/2024 3:47 AM AIR CONDITIONING ENGINEER Christiano Ko MD LAB POCT ORDERABLES - DEVIC E Final Result Performing Organization Address [facility] de Phone Number [facility] [place] [address] * (ABNORMAL) Blood gas, arterial (05/20/2024 3:01 AM AIR CONDITIONING ENGINEER) [facility] pH, Art 7.48(H) 7.35 - 7.45 PCO2, Arterial 48(H) 35 - 45 mmHg [facility] PO2, Arterial 100 83 - 108 mmHg [facility] HCO3 Art (Calculated) 37(H) 20 - 30 mmol/L [facility] BE, art 11 mmol/L [facility] Comment: Interpretive Data No Reference Range Established Current Interpretive Data was last revised on 2017 O2 Sat Art (Measured) 98(H) 90 - 95 % [facility] Blood 05/20/2024 3:01 AM AIR CONDITIONING ENGINEER 05/20/2024 3:12 AM AIR CONDITIONING ENGINEER Yesenia HINOJOSA LAB BLOOD ORDERABLE S Final Result Performing Organization Address [facility] Co de Phone Number [facility] [place] [address] * POCT glucose (05/19/2024 11:34 PM AIR CONDITIONING ENGINEER) Glucose, POC 152 70 - 199 mg/dL Blood 05/19/2024 11:3 4 PM AIR CONDITIONING ENGINEER 05/19/2024 11:34 PM AIR CONDITIONING ENGINEER Christiano Ko MD LAB POCT ORDERABLES - DEVIC E Final Result Performing Organization Address City/[facility]/ZIP Co de Phone Number [facility] Department [place] [address] * eGFR (05/19/2024 9:35 PM AIR CONDITIONING ENGINEER) [facility] eGFR 79 >=60 mL/min/1. 73 m2 [...] last reviewed 2021. Blood 05/19/2024 9:35 PM AIR CONDITIONING ENGINEER 05/19/2024 9:49 PM AIR CONDITIONING ENGINEER Christiano Ko MD LAB BLOOD ORDERABLES Final Result Performing Organization Address City/[facility]/ZIP Co de Phone Number [facility] [place] [address] * (ABNORMAL) CBC without differential (05/19/2024 9:35 PM AIR CONDITIONING ENGINEER) [facility] WBC 5.7 3.8 - 9.9 K/cumm Hgb 9.4(L) 11.9 - 15.5 g/dL [facility] Hct 30.1(L) 35.6 - 45.5 % [facility] Plt 146(L) 150 - 400 K/cumm [facility] MPV 10.2 9.1 - 12.3 fL [facility] RBC 3.21(L) 3.90 - 5.20 M/cumm [facility] MCV 93.8 81.3 - 96.4 fL [facility] Comment:MCV delta due to tasha gical procedure. MCH 29.3 27.1 - 33.3 pg [facility] MCHC 31.2(L) 32.3 - 35.7 g/dL [facility] RDW CV 14.5 11.1 - 14.9 % [facility] RDW SD 49.4(H) 35.7 - 48.1 fL [facility] NRBC abs 0.00 0.00 - 0.01 K/cumm [facility] Blood 05/19/2024 9:35 PM AIR CONDITIONING ENGINEER 05/19/2024 9:50 PM AIR CONDITIONING ENGINEER Christiano Ko MD LAB BLOOD ORDERABLES Final Result Performing Organization Address City/[facility] Co de Phone Number [facility] Department [place] [address] * Phosphorus (05/19/2024 9:35 PM AIR CONDITIONING ENGINEER) [facility] Phosphorus, pl 3.4 2.3 - 4.5 mg/dL Blood 05/19/2024 9:35 PM AIR CONDITIONING ENGINEER 05/19/2024 9:47 PM AIR CONDITIONING ENGINEER Christiano Ko MD LAB BLOOD ORDERABLES Final Result Performing Organization Address [facility] Co de Phone Number [facility] Department [place] [address] * Magnesium (05/19/2024 9:35 PM AIR CONDITIONING ENGINEER) [facility] Magnesium 2.2 1.4 - 2.5 mg/dL Blood 05/19/2024 9:35 PM AIR CONDITIONING ENGINEER 05/19/2024 9:47 PM AIR CONDITIONING ENGINEER us Christiano Ko MD LAB BLOOD ORDERABLES Final Result Performing Organization Address [facility] de Phone Number [facility] [place] [address] * (ABNORMAL) Blood gas, arterial (05/19/2024 9:35 PM AIR CONDITIONING ENGINEER) [facility] pH, Art 7.48(H) 7.35 - 7.45 PCO2, Arterial 50(H) 35 - 45 mmHg [facility] PO2, Arterial 64(L) 83 - 108 mmHg [facility] HCO3 Art (Calculated) 38(H) 20 - 30 mmol/L [facility] BE, art 12 mmol/L [facility] Comment: Interpretive Data No Reference Range Established Current Interpretive Data was last revised on 2017 O2 Sat Art (Measured) 94 90 - 95 % [facility] Blood 05/19/2024 9:35 PM AIR CONDITIONING ENGINEER 05/19/2024 9:45 PM AIR CONDITIONING ENGINEER us Preston HINOJOSA LAB BLOOD ORDER TEDDY Final Result Performing Organization Address [facility] de Phone Number [facility] [place] [address] * (ABNORMAL) Basic metabolic panel (05/19/2024 9:35 PM AIR CONDITIONING ENGINEER) [facility] Sodium 144 135 - 145 mmol/L Potassium, pl 4.2 3.3 - 4.9 mmol/L [facility] Chloride 99 97 - 110 mmol/L [facility] CO2 38(H) 22 - 32 mmol/L [facility] Anion gap 7 2 - 15 mmol/L [facility] BUN 15 6 - 25 mg/dL [facility] Creatinine 0.78 0.60 - 1.10 mg/dL [facility] Glucose 143 70 - 199 mg/dL [facility] Comment: Interpretive Data Fasting glucose >/= [...] 2022. Calcium 8.9 8.5 - 10.3 mg/dL [facility] Blood 05/19/2024 9:35 PM AIR CONDITIONING ENGINEER 05/19/2024 9:47 PM AIR CONDITIONING ENGINEER Christiano Ko MD LAB BLOOD ORDERABLES Final Result [facility] One [facility] Department [place] [address] * Critical Care (05/19/2024 8:59 PM AIR CONDITIONING ENGINEER) Narrative Renay Weber MD - 05/19/2024 8:59 PM AIR CONDITIONING ENGINEER Renay Weber MD 05/28/2024 11:45 PM Critical [...] plan with the ICU team and other medical/internal audit consultant staff, making frequent assessments and decisions [...] Result * POCT glucose (05/19/2024 7:36 PM AIR CONDITIONING ENGINEER) Glucose, POC 153 70 - 199 mg/dL Blood 05/19/2024 7:36 PM AIR CONDITIONING ENGINEER 05/19/2024 7:36 PM AIR CONDITIONING ENGINEER Christiano Ko MD LAB POCT ORDERABLES - DEVIC E Final Result Performing Organization Address [facility] Co de Phone Number [facility] [place] [address] * POCT glucose (05/19/2024 3:43 PM AIR CONDITIONING ENGINEER) Glucose, POC 140 70 - 199 mg/dL Blood 05/19/2024 3:43 PM AIR CONDITIONING ENGINEER 05/19/2024 3:43 PM AIR CONDITIONING ENGINEER Christiano Ko MD LAB POCT ORDERABLES - DEVIC E Final Result Performing Organization Address [facility] Co de Phone Number [facility] [place] [address] * XR Chest 1 View (05/19/2024 2:08 PM AIR CONDITIONING ENGINEER) Anatomical Region Laterality Modality Body, Chest N/A Computed Radiogr aphy 05/19/2024 2:31 PM AIR CONDITIONING ENGINEER Impressions 05/19/2024 3:25 PM AIR CONDITIONING ENGINEER Comparison is made to radiograph dated 05/19/2024. [...] Rajiv Redman M.D. Narrative 05/19/2024 3:25 PM AIR CONDITIONING ENGINEER EXAMINATION: 1 view chest radiograph Procedure Note [...] Result * POCT glucose (05/19/2024 12:49 PM AIR CONDITIONING ENGINEER) Glucose, POC 140 70 - 199 mg/dL Blood 05/19/2024 12:4 9 PM AIR CONDITIONING ENGINEER 05/19/2024 12:49 PM AIR CONDITIONING ENGINEER us Christiano Ko MD LAB POCT ORDERABLES - DEVIC E Final Result [facility] [place] [address] * eGFR (05/19/2024 12:45 PM AIR CONDITIONING ENGINEER) [facility] eGFR 85 >=60 mL/min/1. 73 m2 [...] reviewed 2021. Blood 05/19/2024 12:4 5 PM AIR CONDITIONING ENGINEER 05/19/2024 12:54 PM AIR CONDITIONING ENGINEER us Preston HINOJOSA LAB BLOOD ORDER TEDDY Final Result [facility] One [facility] Department [place] [address] * (ABNORMAL) CBC without differential (05/19/2024 12:45 PM AIR CONDITIONING ENGINEER) [facility] WBC 7.1 3.8 - 9.9 K/cumm Hgb 8.9(L) 11.9 - 15.5 g/dL [facility] Hct 29.2(L) 35.6 - 45.5 % [facility] Plt 136(L) 150 - 400 K/cumm [facility] MPV 10.3 9.1 - 12.3 fL [facility] RBC 2.94(L) 3.90 - 5.20 M/cumm [facility] MCV 99.3(H) 81.3 - 96.4 fL [facility] MCH 30.3 27.1 - 33.3 pg [facility] MCHC 30.5(L) 32.3 - 35.7 g/dL [facility] RDW CV 14.5 11.1 - 14.9 % [facility] RDW SD 51.8(H) 35.7 - 48.1 fL [facility] NRBC abs 0.00 0.00 - 0.01 K/cumm [facility] Blood 05/19/2024 12:4 5 PM AIR CONDITIONING ENGINEER 05/19/2024 12:54 PM AIR CONDITIONING ENGINEER Preston HINJOOSA LAB BLOOD ORDER TEDDY Final Result [facility] [place] [address] * Phosphorus (05/19/2024 12:45 PM AIR CONDITIONING ENGINEER) Phosphorus, pl 2.4 2.3 - 4.5 mg/dL Blood 05/19/2024 12:4 5 PM AIR CONDITIONING ENGINEER 05/19/2024 12:54 PM AIR CONDITIONING ENGINEER Preston HINOJOSA LAB BLOOD ORDER TEDDY Final Result Performing Organization Address City/[facility] Co de Phone Number [facility] [place] [address] * Magnesium (05/19/2024 12:45 PM AIR CONDITIONING ENGINEER) Magnesium 2.2 1.4 - 2.5 mg/dL Blood 05/19/2024 12:4 5 PM AIR CONDITIONING ENGINEER 05/19/2024 12:54 PM AIR CONDITIONING ENGINEER Preston HINOJOSA LAB BLOOD ORDER TEDDY Final Result [facility] Department [place] [address] * (ABNORMAL) Blood gas, arterial (05/19/2024 12:45 PM AIR CONDITIONING ENGINEER) pH, Art 7.43 7.35 - 7.45 PCO2, Arterial 52(H) 35 - 45 mmHg [facility] PO2, Arterial 147(H) 83 - 108 mmHg [facility] HCO3 Art (Calculated) 36(H) 20 - 30 mmol/L [facility] BE, art 9 mmol/L [facility] Comment: Interpretive Data No Reference Range Established Current Interpretive Data was last revised on 2017 O2 Sat Art (Measured) 100(H) 90 - 95 % [facility] Blood 05/19/2024 12:4 5 PM AIR CONDITIONING ENGINEER 05/19/2024 12:50 PM AIR CONDITIONING ENGINEER us Preston HINOJOSA LAB BLOOD ORDER TEDDY Final Result [facility] One [facility] Department [place] [address] * (ABNORMAL) Basic metabolic panel (05/19/2024 12:45 PM AIR CONDITIONING ENGINEER) Pathologist [facility] Sodium 142 135 - 145 mmol/L Potassium, pl 4.2 3.3 - 4.9 mmol/L [facility] Chloride 99 97 - 110 mmol/L [facility] CO2 35(H) 22 - 32 mmol/L [facility] Anion gap 8 2 - 15 mmol/L [facility] BUN 14 6 - 25 mg/dL [facility] Creatinine 0.73 0.60 - 1.10 mg/dL [facility] Glucose 134 70 - 199 mg/dL [facility] Comment: Interpretive Data Fasting glucose >/= [...] classification and Diagnosis of Diabetes Diabetes Care 2022; 46: S19-S40. Current interpretive data was last revised 2022. Calcium 8.6 8.5 - 10.3 mg/dL [facility] Blood 05/19/2024 12:4 5 PM AIR CONDITIONING ENGINEER 05/19/2024 12:54 PM AIR CONDITIONING ENGINEER us Preston HINOJOSA LAB BLOOD ORDER TEDDY Final Result [facility] One [facility] Department [place] [address] * [place] Fluoroscopy < 1 Hour (05/19/2024 11:22 AM AIR CONDITIONING ENGINEER) Narrative [facility] - 05/19/2024 11:23 AM AIR CONDITIONING ENGINEER The images from this study are not interpreted by Radiology. Please refer to the physician's procedure / OR operative note. us Annemarie Lea MD IMG FLUOROSCOPY PROCEDURES Final Result Performing Organization Address [facility]/ZIP Co de Phone Number [email or web address] * (ABNORMAL) POC Blood Gas and Chemistries, Arterial - (05/19/2024 10:38 AM AIR CONDITIONING ENGINEER) pH, Art POC 7.50(H) 7.35 - 7.45 pCO2, Art POC 51(H) 35 - 45 mmHg [facility] pO2, Art POC 68(L) 83 - 108 mmHg [facility] Na, POC 140 135 - 145 mmol/L [facility] K POC 4.1 3.3 - 4.9 mmol/L [facility] Comment: Interpretive Data Not all point of care methods assess for hemolysis. Confirm with instrument and retest K+ if not consistent with clinical signs and symptoms. Current Interpretive Data was last revised on 2023. Cl, POC 99 97 - 110 mmol/L [facility] Ionized Ca, POC 4.69 4.50 - 5.10 mg/dL [facility] Glucose, POC 141 70 - 199 mg/dL [facility] Lactate, POC 1.0 0.7 - 2.0 mmol/L [facility] SO2 (chiquita) arterial 98(H) 90 - 95 % [facility] Base excess, POC 14.9 mmol/L [facility] Hct, POC 28.0(L) 36.3 - 45.3 % [facility] Total Hb, POC 9.2(L) 11.9 - 15.5 g/dL [facility] Blood 05/19/2024 10:3 8 AM AIR CONDITIONING ENGINEER 05/19/2024 10:38 AM AIR CONDITIONING ENGINEER us Christiano Ko MD LAB POCT ORDERABLES - DEVIC E Final Result [facility] One [facility] Department [place] [address] * OR AN PROCEDURE PLACEHOLDER (05/19/2024 9:51 AM AIR CONDITIONING ENGINEER) Narrative Flako Parekh CRNA - 05/19/2024 9:51 AM AIR CONDITIONING ENGINEER Flako Parekh CRNA 05/19/2024 9:52 AM Arterial Line Patient location: OR End time: 05/19/2024 8:30 AM Indication: continuous blood pressure monitoring and blood sampling needed Staff: Supervising provider: Mag Villatoro MD Placed by: TRIMMER SORTER: Flako Parekh CRNA Procedure prep: Prep solution: chlorhexadine/alcohol Prep: provider hat/mask, sterile gloves and sterile drape Skin infiltrated with lidocaine 1%: yes Arterial line: Catheter size: 3 Uzbek Catheter length: 8 cm Catheter type: wire-guided catheter Seldinger technique: yes Laterality: right Site: radial artery Line secured: tape and Tegaderm Results: good waveform and good blood return Number of attempts: 1 Assessment: Events: patient tolerated procedure well with no complications Additional comments: Vygon kit used. CHG-impregnated dressing in use. Ultrasound-guided placement. Result [facility] us Mag Villatoro MD ANESTHESIA ORDERABLES Final R esult * OR AN ELECTIVE ENDOTRACHEAL AIRWAY, OR AN PROCEDURE PLACEHOLDER (05/19/2024 9:46 AM AIR CONDITIONING ENGINEER) Narrative Flako Parekh CRNA - 05/19/2024 9:46 AM AIR CONDITIONING ENGINEER Flako Parekh CRNA 05/19/2024 9:51 AM Airway Patient location: OR Urgency: elective Date/time: 05/19/2024 8:13 AM Indications for airway management: anesthesia Difficult airway: no Staff: Supervising provider: Mag Villatoro MD Placed by: TRIMMER SORTER: Flako Parekh CRNA Emergent airway documentation: Risks [...] and Chemistries, Arterial - (05/19/2024 8:35 AM AIR CONDITIONING ENGINEER) pH, Art POC 7.41 7.35 - 7.45 pCO2, Art POC 65(H) 35 - 45 mmHg [facility] pO2, Art POC 128(H) 83 - [address] [facility] Na, POC 141 135 - 145 mmol/L [facility] K POC 4.4 3.3 - 4.9 mmol/L [facility] Comment: Interpretive Data Not all point of care methods assess for hemolysis. Confirm with instrument and retest K+ if not consistent with clinical signs and symptoms. Current Interpretive Data was last revised on 2023. Cl, POC 101 97 - 110 mmol/L [facility] Ionized Ca, POC 4.78 4.50 - 5.10 mg/dL [facility] Glucose, POC 97 70 - 199 mg/dL [facility] Lactate, POC 0.8 0.7 - 2.0 mmol/L [facility] SO2 (chiquita) arterial 100(H) 90 - 95 % [facility] Base excess, POC 14.4 mmol/L [facility] HCO3, Art POC 41(H) 20 - 30 mmol/L [facility] Hct, POC 29.0(L) 36.3 - 45.3 % [facility] Total Hb, POC 9.6(L) 11.9 - 15.5 g/dL [facility] Blood 05/19/2024 8:35 AM AIR CONDITIONING ENGINEER 05/19/2024 8:35 AM AIR CONDITIONING ENGINEER us Christiano Ko MD LAB POCT ORDERABLES - DEVIC E Final Result Performing Organization Address [facility] Co de Phone Number [facility] Department [place] [address] * POCT glucose (05/19/2024 7:36 AM AIR CONDITIONING ENGINEER) [facility] Glucose, POC 101 70 - 199 mg/dL Blood 05/19/2024 7:36 AM AIR CONDITIONING ENGINEER 05/19/2024 7:36 AM AIR CONDITIONING ENGINEER us Christiano Ko MD LAB POCT ORDERABLES - DEVIC E Final Result Performing Organization Address City/[facility] Co de Phone Number [facility] Department [place] [address] * Critical Care (05/19/2024 7:06 AM AIR CONDITIONING ENGINEER) Narrative Earnestine Kelly MD - 05/19/2024 7:06 AM AIR CONDITIONING ENGINEER Earnestine Kelly MD 05/22/2024 3:02 PM Critical [...] plan with the ICU team and other medical/internal audit consultant staff, making frequent assessments and decisions [...] spent time documenting in the medical record Preston HINOJOSA [facility]/BEDSI DE ORDERABLES Final Result * Critical Result Callback Chemistry (05/19/2024 5:18 AM AIR CONDITIONING ENGINEER) Date Notified [id number] Time Notified [address] [facility] TestName Layla [facility] Called/Read Back Funmilayo [facility] Credentials RENETTA FRYE Called By octavio FRYE Blood 05/19/2024 5:18 AM AIR CONDITIONING ENGINEER 05/19/2024 5:25 AM AIR CONDITIONING ENGINEER us Charisse Dunham NP LAB BLOOD ORDER TEDDY Final Result [facility] One [facility] Department of Laboratories [place], [place] [id number] * Type and screen (05/19/2024 5:18 AM AIR CONDITIONING ENGINEER) [place], indirect Negative ABO Rh A Positive [facility] Blood 05/19/2024 5:18 AM AIR CONDITIONING ENGINEER 05/19/2024 5:26 AM AIR CONDITIONING ENGINEER [facility]ative [facility] - 05/19/2024 6:12 AM AIR CONDITIONING ENGINEER Has the patient had Daratumumab or Isatuximab in the past 6 months?->Unknown us Mag Villatoro MD LAB BLOOD BANK TEST ORDERABLE S Final Result Performing Organization Address [facility] Co de Phone Number [facility] [place] [address] * (ABNORMAL) Blood gas, venous (05/19/2024 5:18 AM AIR CONDITIONING ENGINEER) pH, Venous 7.30(L) 7.32 - 7.43 PCO2, Venous 79(C) 40 - 50 mmHg [facility] Comment:Reviewed PO2, Venous 41 mmHg [facility] Comment: Interpretive Data No Reference Range Established Current Interpretive Data was last revised on 2017. HCO3 Venous, Calculated 40(H) 20 - 30 mmol/L [facility] BE, venous 10 mmol/L [facility] Comment: Interpretive Data No Reference Range Established Current Interpretive Data was last revised on 2017. Blood 05/19/2024 5:18 AM AIR CONDITIONING ENGINEER 05/19/2024 5:25 AM AIR CONDITIONING ENGINEER us Charisse Dunham NP LAB BLOOD ORDER TEDDY Final Result Performing Organization Address [facility] Co de Phone Number [facility] [place] [address] * Critical Result Callback Chemistry (05/19/2024 3:41 AM AIR CONDITIONING ENGINEER) Date Notified [id number] Time Notified [address] [facility] TestName pCO2 Art [facility] Called/Read Back Funmilayo [facility] Credentials RN [facility] Called By MARC FRYE Blood 05/19/2024 3:41 AM AIR CONDITIONING ENGINEER 05/19/2024 3:47 AM AIR CONDITIONING ENGINEER us Charisse Dunham NP LAB BLOOD ORDER TEDDY Final Result Performing Organization Address [facility] Co de Phone Number [facility] [facility] [place] [address] * (ABNORMAL) Blood gas, arterial (05/19/2024 3:41 AM AIR CONDITIONING ENGINEER) pH, Art 7.27(L) 7.35 - 7.45 PCO2, Arterial 83(C) 35 - 45 mmHg [facility] Comment:reviewed PO2, Arterial 157(H) 83 - 108 mmHg [facility] HCO3 Art (Calculated) 40(H) 20 - 30 mmol/L [facility] BE, art 9 mmol/L [facility] Comment: Interpretive Data No Reference Range Established Current Interpretive Data was last revised on 2017 O2 Sat Art (Measured) 99(H) 90 - 95 % [facility] Blood 05/19/2024 3:41 AM AIR CONDITIONING ENGINEER 05/19/2024 3:47 AM AIR CONDITIONING ENGINEER us Charisse Dunham NP LAB BLOOD ORDER TEDDY Final Result Performing Organization Address [facility] de Phone Number [facility] Department [place] [address] * XR Chest 1 View (05/19/2024 3:20 AM AIR CONDITIONING ENGINEER) Anatomical Region Laterality Modality Body, Chest N/A Computed Radiogr aphy 05/19/2024 9:14 AM AIR CONDITIONING ENGINEER Impressions 05/19/2024 9:50 AM AIR CONDITIONING ENGINEER Retrocardiac opacity in keeping with left lower [...] and agrees with it. Electronically signed by: aHrish Bangura M.D. Narrative 05/19/2024 9:50 AM AIR CONDITIONING ENGINEER EXAMINATION: XR CHEST 1 VIEW HISTORY: altered [...] signed by: Harish Bangura M.D. Charisse Dunham NP IMG XR PROCEDUR ES Final Result * Critical Care (05/19/2024 3:00 AM AIR CONDITIONING ENGINEER) Narrative Renay Weber MD - 05/19/2024 3:00 AM AIR CONDITIONING ENGINEER Renay Weber MD 05/20/2024 2:54 AM Critical [...] plan with the ICU team and other medical/internal audit consultant staff, making frequent assessments and decisions [...] in the medical record us Charisse Dunham FELLING MACHINE OPERATOR IN CLINIC/BEDSI DE ORDERABLES Final Result * POCT glucose (05/19/2024 2:38 AM AIR CONDITIONING ENGINEER) [facility] Signature Glucose, POC 122 70 - 199 mg/dL Blood 05/19/2024 2:38 AM AIR CONDITIONING ENGINEER 05/19/2024 2:38 AM AIR CONDITIONING ENGINEER us Christiano Ko MD LAB POCT ORDERABLES - DEVIC E Final Result [facility] One [facility] Department [place] [address] * CTA/CTP Rapid Stroke (C) (05/19/2024 2:26 AM AIR CONDITIONING ENGINEER) Anatomical Region Laterality Modality Head and Neck N/A Computed Tomogra phy 05/19/2024 2:49 AM AIR CONDITIONING ENGINEER Impressions 05/19/2024 8:55 AM AIR CONDITIONING ENGINEER 1. No CT evidence of stroke. 2. [...] Dianna Johnson M.D. Narrative 05/19/2024 8:55 AM AIR CONDITIONING ENGINEER EXAMINATION: 1. Computed tomography angiography (CTA) of [...] separate workstation for processing by RAPID software (mPATH) to produce automated calculations of the estimated [...] Artery: no occlusion or significant stenosis L GLUCOSE AND SYRUP WEIGHER: no occlusion or significant stenosis R GLUCOSE AND SYRUP WEIGHER: no occlusion or significant stenosis No cerebral [...] separate workstation for processing by RAPID software (mPATH) to produce automated calculations of the estimated [...] Artery: no occlusion or significant stenosis L GLUCOSE AND SYRUP WEIGHER: no occlusion or significant stenosis R GLUCOSE AND SYRUP WEIGHER: no occlusion or significant stenosis No cerebral [...] it. Electronically signed by: Dianna Johnson M.D. us Christiano Ko MD IMG CT PROCEDURES Final Res ult * (ABNORMAL) POCT [id number], WB - ISTAT (05/19/2024 1:27 AM AIR CONDITIONING ENGINEER) Na POC 140 135 - 145 mmol/L K POC 4.5 3.3 - 4.9 mmol/L [facility] Comment: Interpretive Data This method is not able to assess for hemolysis, which may falsely increase potassium concentrations. If further testing is needed to evaluate this result, consider in-laboratory plasma potassium. Current Interpretive Data was last revised on 2021. Glucose POC i-STAT 123 70 - 199 mg/dL [facility] Hct, POC 31.0(L) 35.6 - 45.5 % [facility] Blood 05/19/2024 1:27 AM AIR CONDITIONING ENGINEER 05/19/2024 1:27 AM AIR CONDITIONING ENGINEER us Christiano Ko MD LAB POCT ORDERABLES - DEVIC E Final Result [facility] One [facility] Department [place] [address] * (ABNORMAL) Arterial Blood gas w/Lactate POCT (05/19/2024 1:22 AM AIR CONDITIONING ENGINEER) Lactate POC i-STAT <0.5(L) 0.7 - 2.0 mmol/L pH POC 7.29(L) 7.35 - 7.45 [facility] pCO2, Art POC 81(C) 35 - 45 mmHg [facility] PO2 POC 88 80 - 105 mmHg [facility] CO2, total POC 41(H) 20 - 30 mmol/L [facility] HCO3, POC 39(H) 21 - 30 mmol/L [facility] BE POC 12(H) -2 - 3 mmol/L [facility] O2 sat POC 95 95 - 98 % [facility] Blood 05/19/2024 1:22 AM AIR CONDITIONING ENGINEER 05/19/2024 1:22 AM AIR CONDITIONING ENGINEER Christiano Ko MD LAB BLOOD ORDERABLES Final Result Performing Organization Address [facility] de Phone Number [facility] [place] [address] * POCT glucose (05/19/2024 1:15 AM AIR CONDITIONING ENGINEER) Glucose, POC 134 70 - 199 mg/dL Blood 05/19/2024 1:15 AM AIR CONDITIONING ENGINEER 05/19/2024 1:15 AM AIR CONDITIONING ENGINEER Christiano Ko MD LAB POCT ORDERABLES - DEVIC E Final Result Performing Organization Address [facility] de Phone Number [facility] [place] [address] * Potassium, whole blood (05/19/2024 12:55 AM AIR CONDITIONING ENGINEER) Pathologist [facility] Potassium, bld 4.6 3.3 - 4.9 mmol/L Blood 05/19/2024 12:5 5 AM AIR CONDITIONING ENGINEER 05/19/2024 1:10 AM AIR CONDITIONING ENGINEER Christiano Ko MD LAB BLOOD ORDERABLES Final Result Performing Organization Address [facility] de Phone Number [facility] [place] [address] * eGFR (05/19/2024 12:55 AM AIR CONDITIONING ENGINEER) eGFR 75 >=60 mL/min/1. 73 m2 Comment: [...] reviewed 2021. Blood 05/19/2024 12:5 5 AM AIR CONDITIONING ENGINEER 05/19/2024 1:24 AM AIR CONDITIONING ENGINEER Christiano Ko MD LAB BLOOD ORDERABLES Final Result [facility] One [facility] Department [place] [address] * (ABNORMAL) CBC without differential (05/19/2024 12:55 AM AIR CONDITIONING ENGINEER) WBC 5.7 3.8 - 9.9 K/cumm Hgb 9.1(L) 11.9 - 15.5 g/dL [facility] Hct 30.2(L) 35.6 - 45.5 % [facility] Plt 136(L) 150 - 400 K/cumm [facility] MPV 10.9 9.1 - 12.3 fL [facility] RBC 3.06(L) 3.90 - 5.20 M/cumm [facility] MCV 98.7(H) 81.3 - 96.4 fL [facility] MCH 29.7 27.1 - 33.3 pg [facility] MCHC 30.1(L) 32.3 - 35.7 g/dL [facility] RDW CV 14.5 11.1 - 14.9 % [facility] RDW SD 52.2(H) 35.7 - 48.1 fL [facility] NRBC abs 0.00 0.00 - 0.01 K/cumm [facility] Blood 05/19/2024 12:5 5 AM AIR CONDITIONING ENGINEER 05/19/2024 1:25 AM AIR CONDITIONING ENGINEER us Christiano Ko MD LAB BLOOD ORDERABLES Final Result Performing Organization Address City/[facility] [place] [address] * Phosphorus (05/19/2024 12:55 AM AIR CONDITIONING ENGINEER) Pathologist [facility] Phosphorus, pl 4.1 2.3 - 4.5 mg/dL Blood 05/19/2024 12:5 5 AM AIR CONDITIONING ENGINEER 05/19/2024 1:24 AM AIR CONDITIONING ENGINEER us Christiano Ko MD LAB BLOOD ORDERABLES Final Result Performing Organization Address [facility] [place] [address] * Magnesium (05/19/2024 12:55 AM AIR CONDITIONING ENGINEER) [facility] Magnesium 1.8 1.4 - 2.5 mg/dL Blood 05/19/2024 12:5 5 AM AIR CONDITIONING ENGINEER 05/19/2024 1:24 AM AIR CONDITIONING ENGINEER us Christiano Ko MD LAB BLOOD ORDERABLES Final Result Performing Organization Address [facility] Co de Phone Number [facility] [address] * (ABNORMAL) Basic metabolic panel (05/19/2024 12:55 AM AIR CONDITIONING ENGINEER) Sodium 145 135 - 145 mmol/L Potassium, pl 4.8 3.3 - 4.9 mmol/L [facility] Chloride 104 97 - 110 mmol/L [facility] CO2 39(H) 22 - 32 mmol/L [facility] Anion gap 2 2 - 15 mmol/L [facility] BUN 17 6 - 25 mg/dL [facility] Creatinine 0.81 0.60 - 1.10 mg/dL [facility] Glucose 126 70 - 199 mg/dL [facility] Comment: Interpretive Data Fasting glucose >/= [...] 2022. Calcium 8.8 8.5 - 10.3 mg/dL [facility] Blood 05/19/2024 12:5 5 AM AIR CONDITIONING ENGINEER 05/19/2024 1:24 AM AIR CONDITIONING ENGINEER Christiano Ko MD LAB BLOOD ORDERABLES Final Result [facility] One [facility] Department [place] [address] * OR AN ELECTIVE ENDOTRACHEAL AIRWAY, OR AN PROCEDURE PLACEHOLDER (05/18/2024 4:41 PM AIR CONDITIONING ENGINEER) Narrative Dar Long CRNA - 05/18/2024 4:41 PM AIR CONDITIONING ENGINEER Dar Long CRNA 05/18/2024 4:45 PM Airway Patient location: OR Urgency: elective Date/time: 05/18/2024 4:05 PM Indications for airway management: anesthesia and airway protection Difficult airway: no Staff: Placed by: Anesthesiologist: Kvng Verma MD TRIMMER SORTER: Dar Long CRNA Emergent airway documentation: Risks [...] ORDERABLE S Edited Result - Final * OR AN PROCEDURE PLACEHOLDER (05/18/2024 3:47 PM AIR CONDITIONING ENGINEER) Narrative Kvng Verma MD - 05/18/2024 3:47 PM AIR CONDITIONING ENGINEER Kvng Verma MD 05/20/2024 9:44 AM Peripheral [...] Final Result * eGFR (05/17/2024 11:56 PM AIR CONDITIONING ENGINEER) eGFR 73 >=60 mL/min/1. 73 m2 Comment: [...] reviewed 2021. Blood 05/17/2024 11:5 6 PM AIR CONDITIONING ENGINEER 05/18/2024 12:45 AM AIR CONDITIONING ENGINEER Christiano Ko MD LAB BLOOD ORDERABLES Final Result [facility] One [facility] Department [place] [address] * (ABNORMAL) CBC without differential (05/17/2024 11:56 PM AIR CONDITIONING ENGINEER) WBC 5.3 3.8 - 9.9 K/cumm Hgb 9.5(L) 11.9 - 15.5 g/dL [facility] Hct 31.7(L) 35.6 - 45.5 % [facility] Plt 147(L) 150 - 400 K/cumm [facility] MPV 11.0 9.1 - 12.3 fL [facility] RBC 3.23(L) 3.90 - 5.20 M/cumm [facility] MCV 98.1(H) 81.3 - 96.4 fL [facility] MCH 29.4 27.1 - 33.3 pg [facility] MCHC 30.0(L) 32.3 - 35.7 g/dL [facility] RDW CV 14.6 11.1 - 14.9 % [facility] RDW SD 52.7(H) 35.7 - 48.1 fL [facility] NRBC abs 0.00 0.00 - 0.01 K/cumm [facility] Blood 05/17/2024 11:5 6 PM AIR CONDITIONING ENGINEER 05/18/2024 12:45 AM AIR CONDITIONING ENGINEER Christiano Ko MD LAB BLOOD ORDERABLES Final Result Performing Organization Address City/[facility]/ZIP Co de Phone Number [facility] [place] [address] * Phosphorus (05/17/2024 11:56 PM AIR CONDITIONING ENGINEER) Pathologist [facility] Phosphorus, pl 3.9 2.3 - 4.5 mg/dL Blood 05/17/2024 11:5 6 PM AIR CONDITIONING ENGINEER 05/18/2024 12:45 AM AIR CONDITIONING ENGINEER Christiano Ko MD LAB BLOOD ORDERABLES Final Result Performing Organization Address [facility] Co de Phone Number [facility] [place] [address] * Magnesium (05/17/2024 11:56 PM AIR CONDITIONING ENGINEER) [facility] Magnesium 1.9 1.4 - 2.5 mg/dL Blood 05/17/2024 11:5 6 PM AIR CONDITIONING ENGINEER 05/18/2024 12:45 AM AIR CONDITIONING ENGINEER Christiano Ko MD LAB BLOOD ORDERABLES Final Result Performing Organization Address City/[facility] [place] [address] * (ABNORMAL) Basic metabolic panel (05/17/2024 11:56 PM AIR CONDITIONING ENGINEER) Pathologist [facility] Sodium 146(H) 135 - 145 mmol/L Potassium, pl 5.0(H) 3.3 - 4.9 mmol/L [facility] Chloride 102 97 - 110 mmol/L [facility] CO2 37(H) 22 - 32 mmol/L [facility] Anion gap 7 2 - 15 mmol/L [facility] BUN 22 6 - 25 mg/dL [facility] Creatinine 0.83 0.60 - 1.10 mg/dL [facility] Glucose 101 70 - 199 mg/dL [facility] Comment: Interpretive Data Fasting glucose >/= [...] 2022. Calcium 9.3 8.5 - 10.3 mg/dL [facility] Blood 05/17/2024 11:5 6 PM AIR CONDITIONING ENGINEER 05/18/2024 12:45 AM AIR CONDITIONING ENGINEER Christiano Ko MD LAB BLOOD ORDERABLES Final Result [facility] One [facility] Department [place] [address] * eGFR (05/16/2024 10:25 PM AIR CONDITIONING ENGINEER) eGFR 61 >=60 mL/min/1. 73 m2 Comment: [...] reviewed 2021. Blood 05/16/2024 10:2 5 PM AIR CONDITIONING ENGINEER 05/16/2024 10:50 PM AIR CONDITIONING ENGINEER us Christiano Ko MD LAB BLOOD ORDERABLES Final Result [facility] One [facility] Department [place] [address] * (ABNORMAL) CBC without differential (05/16/2024 10:25 PM AIR CONDITIONING ENGINEER) WBC 4.8 3.8 - 9.9 K/cumm Hgb 9.0(L) 11.9 - 15.5 g/dL [facility] Hct 30.0(L) 35.6 - 45.5 % [facility] Plt 134(L) 150 - 400 K/cumm [facility] MPV 10.6 9.1 - 12.3 fL [facility] RBC 3.01(L) 3.90 - 5.20 M/cumm [facility] MCV 99.7(H) 81.3 - 96.4 fL [facility] MCH 29.9 27.1 - 33.3 pg [facility] MCHC 30.0(L) 32.3 - 35.7 g/dL [facility] RDW CV 14.6 11.1 - 14.9 % [facility] RDW SD 53.5(H) 35.7 - 48.1 fL [facility] NRBC abs 0.00 0.00 - 0.01 K/cumm [facility] Blood 05/16/2024 10:2 5 PM AIR CONDITIONING ENGINEER 05/16/2024 10:50 PM AIR CONDITIONING ENGINEER us Christiano Ko MD LAB BLOOD ORDERABLES Final Result [facility] [place] [address] * Phosphorus (05/16/2024 10:25 PM AIR CONDITIONING ENGINEER) [facility] Phosphorus, pl 3.9 2.3 - 4.5 mg/dL Blood 05/16/2024 10:2 5 PM AIR CONDITIONING ENGINEER 05/16/2024 10:50 PM AIR CONDITIONING ENGINEER Christiano Ko MD LAB BLOOD ORDERABLES Final Result Performing Organization Address City/[facility]/ZIP Co de Phone Number [facility] [place] [address] * Magnesium (05/16/2024 10:25 PM AIR CONDITIONING ENGINEER) [facility] Magnesium 1.8 1.4 - 2.5 mg/dL Blood 05/16/2024 10:2 5 PM AIR CONDITIONING ENGINEER 05/16/2024 10:50 PM AIR CONDITIONING ENGINEER Christiano Ko MD LAB BLOOD ORDERABLES Final Result Performing Organization Address [facility] Co de Phone Number [facility] Department [place] [address] * (ABNORMAL) Basic metabolic panel (05/16/2024 10:25 PM AIR CONDITIONING ENGINEER) [facility] Sodium 146(H) 135 - 145 mmol/L Potassium, pl 4.7 3.3 - 4.9 mmol/L [facility] Chloride 103 97 - 110 mmol/L [facility] CO2 39(H) 22 - 32 mmol/L [facility] Anion gap 4 2 - 15 mmol/L [facility] BUN 23 6 - 25 mg/dL [facility] Creatinine 0.96 0.60 - 1.10 mg/dL [facility] Glucose 98 70 - 199 mg/dL [facility] Comment: Interpretive Data Fasting glucose >/= [...] 2022. Calcium 9.0 8.5 - 10.3 mg/dL [facility] Blood 05/16/2024 10:2 5 PM AIR CONDITIONING ENGINEER 05/16/2024 10:50 PM AIR CONDITIONING ENGINEER us Christiano Ko MD LAB BLOOD ORDERABLES Final Result [facility] One [facility] Department [place] [address] * eGFR (05/15/2024 10:17 PM AIR CONDITIONING ENGINEER) eGFR 65 >=60 mL/min/1. 73 m2 Comment: [...] reviewed 2021. Blood 05/15/2024 10:1 7 PM AIR CONDITIONING ENGINEER 05/15/2024 10:31 PM AIR CONDITIONING ENGINEER us Christiano Ko MD LAB BLOOD ORDERABLES Final Result Performing Organization Address [facility] de Phone Number [facility] [place] [address] * (ABNORMAL) CBC without differential (05/15/2024 10:17 PM AIR CONDITIONING ENGINEER) [facility] WBC 6.5 3.8 - 9.9 K/cumm Hgb 9.3(L) 11.9 - 15.5 g/dL [facility] Hct 30.3(L) 35.6 - 45.5 % [facility] Plt 142(L) 150 - 400 K/cumm [facility] MPV 10.9 9.1 - 12.3 fL [facility] RBC 3.16(L) 3.90 - 5.20 M/cumm [facility] MCV 95.9 81.3 - 96.4 fL [facility] MCH 29.4 27.1 - 33.3 pg [facility] MCHC 30.7(L) 32.3 - 35.7 g/dL [facility] RDW CV 14.6 11.1 - 14.9 % [facility] RDW SD 51.8(H) 35.7 - 48.1 fL [facility] NRBC abs 0.00 0.00 - 0.01 K/cumm [facility] Blood 05/15/2024 10:1 7 PM AIR CONDITIONING ENGINEER 05/15/2024 10:31 PM AIR CONDITIONING ENGINEER Christiano Ko MD LAB BLOOD ORDERABLES Final Result Performing Organization Address [facility] Co de Phone Number [facility] Department [place] [address] * Phosphorus (05/15/2024 10:17 PM AIR CONDITIONING ENGINEER) [facility] Phosphorus, pl 3.7 2.3 - 4.5 mg/dL Blood 05/15/2024 10:1 7 PM AIR CONDITIONING ENGINEER 05/15/2024 10:31 PM AIR CONDITIONING ENGINEER Christiano Ko MD LAB BLOOD ORDERABLES Final Result Performing Organization Address City/[facility]/ZIP Co de Phone Number [facility] One [facility] [place] [address] * Magnesium (05/15/2024 10:17 PM AIR CONDITIONING ENGINEER) [facility] Magnesium 2.0 1.4 - 2.5 mg/dL Blood 05/15/2024 10:1 7 PM AIR CONDITIONING ENGINEER 05/15/2024 10:31 PM AIR CONDITIONING ENGINEER Christiano Ko MD LAB BLOOD ORDERABLES Final Result Performing Organization Address [facility] Co de Phone Number [facility] [place] [address] * (ABNORMAL) Basic metabolic panel (05/15/2024 10:17 PM AIR CONDITIONING ENGINEER) [facility] Sodium 145 135 - 145 mmol/L Potassium, pl 4.7 3.3 - 4.9 mmol/L [facility] Chloride 102 97 - 110 mmol/L [facility] CO2 37(H) 22 - 32 mmol/L [facility] Anion gap 6 2 - 15 mmol/L [facility] BUN 26(H) 6 - 25 mg/dL [facility] Creatinine 0.91 0.60 - 1.10 mg/dL [facility] Glucose 110 70 - 199 mg/dL [facility] Comment: Interpretive Data Fasting glucose >/= [...] 2022. Calcium 9.1 8.5 - 10.3 mg/dL [facility] Blood 05/15/2024 10:1 7 PM AIR CONDITIONING ENGINEER 05/15/2024 10:31 PM AIR CONDITIONING ENGINEER Christiano Ko MD LAB BLOOD ORDERABLES Final Result Performing Organization Address [facility] Phone Number [facility] [place] [address] * (ABNORMAL) Blood gas, arterial (05/15/2024 11:40 AM AIR CONDITIONING ENGINEER) pH, Art 7.32(L) 7.35 - 7.45 PCO2, Arterial 70(H) 35 - 45 mmHg [facility] PO2, Arterial 99 83 - 108 mmHg [facility] HCO3 Art (Calculated) 38(H) 20 - 30 mmol/L [facility] BE, art 8 mmol/L [facility] Comment: Interpretive Data No Reference Range Established Current Interpretive Data was last revised on 2017 O2 Sat Art (Measured) 98(H) 90 - 95 % [facility] Blood 05/15/2024 11:4 0 AM AIR CONDITIONING ENGINEER 05/15/2024 11:50 AM AIR CONDITIONING ENGINEER Debby Gaona NP LAB BLOOD ORDERABLES F inal Result Performing Organization Address [facility] de Phone Number [facility] Department [place] [address] * TRANSTHORACIC ECHO (TTE) COMPLETE W DOPPLER/CF W CONTRAST (05/15/2024 10:00 AM AIR CONDITIONING ENGINEER) Anatomical Region Laterality Modality Ultrasound 05/15/2024 8:59 AM AIR CONDITIONING ENGINEER Narrative 05/15/2024 1:40 PM AIR [address]ER [facility] [place] [address] Transthoracic Echocardiographic Report Patient Name: LORRAINE WALLER Simon : 1945 (78y 4m) Gender: F Study Date: 05/15/2024 08:59:48 Ht(Inch): 65 Wt(Lb): 210.98 BSA: 2.09 Computing Systems Mechanic: Heber Mathur RDCS Location: [id number] Order Provider: CHRISTIANO KO Heart Rate: 83 BMI: 35.11 BP: 114 / 73 Quality: The study images were of technically good quality. Ref Provider: CHRISTIANO KO PROCEDURES: Echocardiographic Report: ([id number], [id number]) Transthoracic complete echo with strain imaging and [...] Signed By: Murtaza Pedersen MD 05/15/2024 13:39:37 AIR CONDITIONING ENGINEER Electronically Signed By: Murtaza Pedersen MD 05/15/2024 13:39:37 AIR CONDITIONING ENGINEER Procedure Note Murtaza Pedersen MD - 05/15/2024 [facility] [place] [address] Transthoracic Echocardiographic Report Patient Name: LORRAINE WALLER J : 1945 (78y 4m) Gender: F Study Date: 05/15/2024 08:59:48 Ht(Inch): 65 Wt(Lb): 210.98 BSA: 2.09 Computing Systems Mechanic: Heber Mathur [facility] Location: [id number] Order Provider:CHRISTIANO KO Heart Rate: 83 BMI: 35.11 BP: 114 / 73 Quality: The study images were oftechnically good quality. Ref Provider: CHRISTIANO KO PROCEDURES: Echocardiographic Report: ([id number], [id number]) Transthoracic complete echo withstrain imaging and contrast, [...] LA Length 4C 6.46 cm MV Decel [id number] msec [ 104.00 - 258.00 ] LA [...] Signed By: Murtaza Pedersen MD 05/15/2024 13:39:37 AIR CONDITIONING ENGINEER Electronically Signed By: Murtaza Pedersen MD 05/15/2024 13:39:37 AIR CONDITIONING ENGINEER us Christiano Ko MD CV ECHO PROCEDURES Final Re sult * eGFR (05/15/2024 8:13 AM AIR CONDITIONING ENGINEER) eGFR 80 >=60 mL/min/1. 73 m2 Comment: [...] last reviewed 2021. Blood 05/15/2024 8:13 AM AIR CONDITIONING ENGINEER 05/15/2024 8:32 AM AIR CONDITIONING ENGINEER us Christiano Ko MD LAB BLOOD ORDERABLES Final Result [facility] One [facility] Department [place] [address] * (ABNORMAL) CBC without differential (05/15/2024 8:13 AM AIR CONDITIONING ENGINEER) WBC 4.7 3.8 - 9.9 K/cumm Hgb 9.5(L) 11.9 - 15.5 g/dL [facility] Hct 31.3(L) 35.6 - 45.5 % [facility] Plt 119(L) 150 - 400 K/cumm [facility] MPV 10.8 9.1 - 12.3 fL [facility] RBC 3.21(L) 3.90 - 5.20 M/cumm [facility] MCV 97.5(H) 81.3 - 96.4 fL [facility] MCH 29.6 27.1 - 33.3 pg [facility] MCHC 30.4(L) 32.3 - 35.7 g/dL [facility] RDW CV 14.3 11.1 - 14.9 % [facility] RDW SD 51.6(H) 35.7 - 48.1 fL [facility] NRBC abs 0.00 0.00 - 0.01 K/cumm [facility] Blood 05/15/2024 8:13 AM AIR CONDITIONING ENGINEER 05/15/2024 8:33 AM AIR CONDITIONING ENGINEER Christiano Ko MD LAB BLOOD ORDERABLES Final Result Performing Organization Address [facility] Co de Phone Number [facility] [place] [address] * Phosphorus (05/15/2024 8:13 AM AIR CONDITIONING ENGINEER) [facility] Phosphorus, pl 3.4 2.3 - 4.5 mg/dL Blood 05/15/2024 8:13 AM AIR CONDITIONING ENGINEER 05/15/2024 8:32 AM AIR CONDITIONING ENGINEER us Christiano Ko MD LAB BLOOD ORDERABLES Final Result Performing Organization Address [facility] de Phone Number [facility] [place] [address] * Magnesium (05/15/2024 8:13 AM AIR CONDITIONING ENGINEER) [facility] Magnesium 2.0 1.4 - 2.5 mg/dL Blood 05/15/2024 8:13 AM AIR CONDITIONING ENGINEER 05/15/2024 8:32 AM AIR CONDITIONING ENGINEER Christiano Ko MD LAB BLOOD ORDERABLES Final Result Performing Organization Address [facility] [place] [address] * (ABNORMAL) Basic metabolic panel (05/15/2024 8:13 AM AIR CONDITIONING ENGINEER) [facility] Sodium 146(H) 135 - 145 mmol/L Potassium, pl 4.8 3.3 - 4.9 mmol/L [facility] Chloride 104 97 - 110 mmol/L [facility] CO2 36(H) 22 - 32 mmol/L [facility] Anion gap 6 2 - 15 mmol/L [facility] BUN 19 6 - 25 mg/dL [facility] Creatinine 0.77 0.60 - 1.10 mg/dL [facility] Glucose 114 70 - 199 mg/dL [facility] Comment: Interpretive Data Fasting glucose >/= [...] 2022. Calcium 9.2 8.5 - 10.3 mg/dL [facility] Blood 05/15/2024 8:13 AM AIR CONDITIONING ENGINEER 05/15/2024 8:32 AM AIR CONDITIONING ENGINEER us Christiano Ko MD LAB BLOOD ORDERABLES Final Result Performing Organization Address City/[facility]/ZIP Co de Phone Number [facility] One [facility] Department [place] [address] * ECG 12 lead (05/15/2024 7:03 AM AIR CONDITIONING ENGINEER) [facility] Signature Ventricular Rate EKG/Min 89 BPM [facility] QRS-Interval (MSEC) 88 ms [facility] QT-Interval (MSEC) 478 ms [facility] QTc 581 ms [facility] R [place] 97 degrees [facility] T [place] 33 degrees [facility] Diagnosis Atrial fibrillation Rightward axis Low voltage QRS Abnormal ECG Confirmed by Radha BROWN, [facility] ([id number]) on 05/15/2024 8:45:18 AM [facility] 05/15/2024 7:03 AM AIR CONDITIONING ENGINEER 05/15/2024 8:45 AM AIR CONDITIONING ENGINEER us Debby Gaona FELLING MACHINE OPERATOR ECG ORDERABLES Final Result Performing Organization Address City/[facility]/ZIP Co de Phone Number [facility] * ECG 12 lead (05/15/2024 7:02 AM AIR CONDITIONING ENGINEER) Ventricular Rate EKG/Min 100 BPM [facility] Atrial Rate 62 BPM [facility] OR-Interval (MSEC) 144 ms [facility] QRS-Interval (MSEC) 76 ms [facility] QT-Interval (MSEC) 456 ms [facility] QTc 588 ms [facility] R [place] 102 degrees [facility] T [place] 156 degrees [facility] Diagnosis Atrial fibrillation/flu tter Poor R-wave progression in the precordial leads Low voltage QRS Anterolateral infarct (cited on or before 13-MAY-2024) T wave abnormality, consider inferior ischemia Prolonged QT Abnormal ECG When compared with ECG of 13-MAY-2024 21:31, Sinus rhythm has replaced Atrial fibrillation Serial changes of evolving Anterior infarct Present Serial changes of evolving Anterolateral infarct Present Confirmed by GABO PIEDRA M.D ([id number]) on 05/25/2024 3:18:42 PM [facility] 05/15/2024 7:02 AM AIR CONDITIONING ENGINEER 05/25/2024 3:18 PM AIR CONDITIONING ENGINEER us Christiano Ko MD ECG ORDERABLES Final Resul t [facility] from Last 3 Months [place] [address] MEDICARE [facility] MEDICARE SUPPLEMENT MEDICARE [facility] MEDICARE SUPPLEMENT Advance Directives For more information, please contact: [phone] * Full Code (Latest Code Status on File) Date Activated Date Inactivated Comments 05/13/2024 8:42 PM 05/27/2024 11:27 PM Care Teams Bridge Repairer Relationship Specialty Start Date End Date Meagan Yusuf MD PCP - General Family Medicine 05/22/23 Annemarie Lea MD [address] [place] [address] Consulting Physician Otolaryngology 05/27/24 Margy Walker MD PhD [address] [place] [address] Consulting Physician Plastic Surgery 05/27/24 Geraldine Barbosa NP [address] [place] [address] Nurse Practitioner Neurosurgery 05/27/24
--- OUTSIDE RECORDS SUMMARY | 2024-08-12 20:48 | XMS_ITS | Data Portability ---
Author Organization [place] - [facility] OFFICE Address [address] [place] [address] Care Team Providers Care State Fire Marshal Name Role Phone JAMILA PAVON Primary Care [...] current medications, and medical follow-up as noted. Not available 10/26/2020 14:30:27 11/09/2020 11/09/2020 Discussed [...] Not available 17:10:42 electrocard iogram 2020 021 [email or web address] Not available 14:35:30 Medication Orders rosuvastati n 40 mg tablet 2020 021 [facility][id number], [address], [place], [id number], 12:58:37 lisinopril 5 mg tablet 2020 [facility]02445, [address], [place], [id number], 12:58:39 spironolact one 25 mg tablet 2020 [facility] #58401, [address], [place], [id number], 12:58:59 aspirin 81 mg tablet,lamont yed release 2020 [facility]10118, [address] [place] [address], [id number], 14:35:37 clopidogrel 75 mg tablet 2020 [facility] #51860, [address] [place] [address], [id number], 14:35:38 rosuvastati n 20 mg tablet 2020 [facility] #84242, [address], [place], [id number], 14:35:39 metoprolol succinate ER 25 mg tablet,exte nded release 24 hr 2020 [facility] #47874, [address] [place] [address], [id number], 14:35:39 potassium chloride ER 20 mEq tablet,exte nded release 2020 [facility] #54046, [facility] [address], [id number], 14:35:37 furosemide 40 mg tablet 2020 021 [facility]08477, [address] [place], [place], [id number], 14:35:38 Patient TargetsNo targets recorded. Patient Instructions Encounter Date Encounter Id Patient Instructions Last Modified By Organization Details Last Modified Time 10/26/2020 [id number] high cholesterol : care instructions [email or web address] Not available 10/26/2020 14:35:29 When You Want to Lose Weight: Care Instructions [email or web address] Not available 10/26/2020 14:35:30 sleep apnea: car e instructions [email or web address] Not available 10/26/2020 14:35:30 high blood pressure: care instructions [email or web address] Not available 10/26/2020 14:35:30 learning about high blood pressure [email or web address] Not available 10/26/2020 14:35:30 11/09/2020 [id number] high cholesterol : care instructions [email or web address] Not available 11/09/2020 12:58:27 When You Want to Lose Weight: Care Instructions [email or web address] Not available 11/09/2020 12:58:27 sleep apnea: car e instructions [email or web address] Not available 11/09/2020 12:58:27 high blood pressure: care instructions [email or web address] Not available 11/09/2020 12:58:27 learning about high blood pressure [email or web address] Not available 11/09/2020 12:58:27 Reason for Referral None Reported. Results Created Date Observation Date Name Description Value Unit Range Abnormal Flag Note LastModifiedBy Organization Detail LastModifiedTime 10/26/19 21 elect low del castillogr am No observ ation record ed. [email or web address] Sharif Bustamante MD [address], [place], [address], 10/26/2020 14:26:29 10/28/19 21 10/01/2020 US, doppl [...] ation record ed. елена Bustamante MD [address], [place], [address], 12/05/2020 17:10:42 11/17/19 21 10/26/2020 elect rocar diogr am No observ ation record ed. Not Available 11/18 13:56:02 Result Notes Documentation Provider Name and Address Organization Details Recorded Time Lipid Panel, Blood : 10/28/20:Na 137,K 3.9,Cl 102,Co2 30,Glu 94,Bun 18,Cr 0.7,AST 33,ALT 11. 10/28/20:TC 190,TG 79,HDL 87,LDL 83. 10/28/20:WBC 5.4,RBC 3.83,HGB 11.4,HCT 36.7,PLT 108. Dominic Rodriguez [place], [place] - [facility] 11/14/2020 16:16:49 Lipid Panel, Blood : 10/28/20:Na 137,K 3.9,CL 102,CO2 30,Glu 94,Bun 18,Cr 0.7,AST 33,ALT 11. 10/28/20:TC 190,TG 79,HDL 87,LDL pending. Dominic beyer, [facility] 01/24/2021 13:55:17 Problems Name Problem SNOMED Code Status Onset Date Resolution Date Notes Provider Name and Address Organization Details Recorded Time Heart failure with reduced ejection fraction 338582658 Active 2020 Desmond [place]yer, [place] - [facility] 13:41:26 Essential hypertension 13450825 Active 2020 Des[place] - [facility] 13:48:17 Hyperlipidemia 59193549 Active 2020 Des[place] - [facility] 13:48:29 Obstructive sleep apnea syndrome 85619080 Active 2020 Des[place] - [facility] 13:48:37 Subsequent non-ST segment elevation myocardial infarction 939938331 Active 2020 Des[place] - [facility] 13:59:24 Obesity 054316601 Active 2020 Desmond [place]yer[place] - [facility] 14:26:10 Problem Notes None recorded. Procedures Surgical History None recorded. Imaging Results Imaging Date Name Status LastModified by Organization Details LastModified Time 10/25/2020 electrocardiogram completed [email or web address] Sharif Basilio MD [address], [place], [address], 10/26/2020 14:26:29 10/01/2020 US, doppler, venous completed [facility] Infor mation not available 10/27/2020 11:43:01 09/30/2020 US, echocardiogram completed Inform ation not available 10/27/2020 12:19:15 10/01/2020 electrocardiogram completed [facility] Informa tion not available 10/27/2020 12:55:58 09/30/2020 XR, chest, 1 view completed peoples Informa tion not available 10/27/2020 12:59:31 10/03/2020 catheter placement in coronary artery(s) for coronary angiography; with left heart catheterization including intraprocedural injection(s) for left ventriculography (PROC) completed [email or web address] Information not available 03/10/2021 13:24:48 11/07/2020 electrocardiogram completed naomy Basilio MD [address], [place], [address], 12/05/2020 17:10:42 10/26/2020 electrocardiogram completed [email or web address] Informa [...] Not Available Not Available [employer] Gerard 2 Dinosaur active Not Available Not Available Not Available Vitals Date Recorded Body height Body mass index (BMI) Body weight Heart rate Respiratory rate Oxygen saturation Oxygen saturation in Arterial blood by Pulse oximetry Systolic blood pressure Diastolic blood pressure Provider Name and Address Organization Details Last Updated DateTime 1 162.56 cm 42.6 kg/m2 842558. 91 g 70 /min 16 /min 92 % 92 % 114 mm[Hg] 82 mm[Hg] Jamila Britton [facility] 1 13:04:20 Date Recorded Body height Body mass index (BMI) Body weight Heart rate Oxygen saturation Oxygen saturation in Arterial blood by Pulse oximetry Inhaled oxygen flow rate Systolic blood pressure Diastolic blood pressure Provider Name and Address Organization Details Last Updated DateTime 1 162.56 cm 43.1 kg/m2 719344. 68 g 75 /min 97 % 97 % 4 L/min 118 mm[Hg] 84 mm[Hg] DAVID K[place] - [facility] 11:48:40 Social History None recorded. Functional Status Question Answer Note LastModified by Organization D etails LastModified Time What is your level of alcohol consumption? Moderate [email or web address] Information not available 10/26/2020 Mental Status None recorded. Family History Nothing Reported Notes:No premature [place]. Medical History Condition Response Hyperlipidemia Y Hypertension Y Gynecological HistoryNo gynecological history recorded. Obstetrics History GPAL:G 0 P 0 0 0 0 Past Encounters Encounter ID Performer Location Encounter Start Date Encounter Closed Date Diagnosis/Indication Diagnosis SNOMED-CT Code Diagnosis ICD10 Code Diagnosis Note [id number] Desmond Padilla MD [facility] OFF[facility] [address] [place] [address] 10/26/2020 12:49:39 10/26/2020 14:36:31 Heart failure with reduced ejection fraction 773679315 I50.21 Has nonischemi c cardiomyop athy, HF-rEF. She was in [facility] 09/30/20 with dyspnea, NSTEMI (peak trop I [...] (RVSP 42 mmHg). Begin cardiac rehab at [facility]. Patient instructed to taper alcohol to off. Continue metoprolol and Lasix. Consider lisinopril and eventual spironolac tone. Obtain CMP, Mg, TSH, CBC, FLP. Hyperlipidemia 18329274 E78.5 Needs to keep LDL less than 70, and HDL more than 40. Obtain FLP. Obstructiv e sleep apnea syndrome 19583317 G47.33 She is now compliant with CPAP, with pulm. f/u. Essential hypertension 26552787 I10 Patient's blood pressure is {{well-con trolled* [...] diary. Subsequent non-ST segment elevation myocardial infarction 232237115 I22.2 Stable. Had [facility] 10/03/20: mild CAD (mLAD 40% followed by 50% disease which is diffuse from that point towards the end of the vessel), mild-moder ate LV systolic dysfunctio n (LVEF 40%) with nonischemi c cardiomyop athy. Continue ASA, Plavix, metoprolol , statin. Needs to keep LDL less than 70, and HDL more than 40. Maximal medical therapy. Obesity 858693103 E66.9 20 lb. weight loss recommende d over the next 2 months. [id number] Desmond Padilla MD [facility] [place] [address] 11/09/2020 11:31:16 11/09/2020 13:02:04 Heart failure with reduced ejection fraction 111077235 I50.21 Has nonischemi c cardiomyop athy, HF-rEF. She was in [facility] 09/30/20 with dyspnea, NSTEMI (peak trop I 1.25), and CHF exacerbati on in setting of hypertensi ve urgency, COPD exacerbati on, untreated TRAVIS, left leg cellulitis (treated with doxycyclin e), possible pneumonia, diuresed with Lasix 40 mg bid. Had [facility] 10/03/20: mild CAD (mLAD 40% followed [...] (RVSP 42 mmHg). Begin cardiac rehab at [facility]. Patient instructed to taper alcohol to off. [...] weeks. Subsequent non-ST segment elevation myocardial infarction 517344801 I22.2 Stable. Had [facility] 10/03/20: mild CAD (mLAD 40% followed [...] more than 40. Maximal medical therapy. Hyperlipidemia 59468665 E78.5 Needs to keep LDL less than 70, and HDL more than 40. Had 10/28/20: LDL 83Increase d to rosuvastat in 40 mg qHS 11/09/20. Obstructiv e sleep apnea syndrome 94417159 G47.33 She is now compliant with CPAP, with pulm. f/u. Essential hypertension 97150898 I10 Patient's blood pressure is {{well-con trolled* [...] sodium or less daily). BP diary. Obesity 201631593 E66.9 20 lb. weight loss recommende d [...] 10/26/2020 1 [place] Ping Montes Christin [id number] Ping Christin 11/06/2020 2 [place] ([place] [id number] Ping Montes Christin [id number] Ping Christin Notes Date Note Type [...] hospital follow-up for HCF. She was in [facility] 09/30/20 with dyspnea, NSTEMI (peak trop I [...] K 3.6, Mg 1.7, Cr 0.8, Had [facility] 10/03/20: mild CAD (mLAD 40% followed [...] had negative LE venous Doppler 09/2020. Desmond beyer, [place] - [facility] 10/26/2020 14:36:29 11/09/2020 [...] hospital follow-up for HCF. She was in [facility] 09/30/20 with dyspnea, NSTEMI (peak trop I 1.25), and CHF exacerbation in setting of hypertensive urgency, COPD exacerbation, untreated TRAVIS, left leg cellulitis (treated with doxycycline), possible pneumonia, diuresed with Lasix 40 mg bid. Had [facility] 10/03/20: mild CAD (mLAD 40% followed [...] 1.4, hgb 11.4, plt 108 lab result [id number] result : hgb 10.7, K 3.6, Mg 1.7, Cr 0.8,PT/INR 09-30-2020 electrocardiogram Had [facility] 10/03/20: mild CAD (mLAD 40% followed [...] view 09-30-2020 US, echocardiogram 09-30-2020 Desmond Padilla [facility], [place] - [facility] 11/09/2020 12:58:46 OBGyn Episode No OBEpisode recorded.
--- OUTSIDE RECORDS SUMMARY | 2024-08-12 20:48 | XMS_ITS | Referral Summary ---
Author Organization [facility] Address [address] [place] [id number] Care Team Providers Care Therapist Physical Name Role Phone Meagan Yusuf MD Primary Care Provider + Annemarie Lea MD Unavailable [phone] Margy Walker MD PhD Unavailable [phone] Geraldine Barbosa NP Unavailable [phone] Encounters Date Type Department Care Team Description 08/07/2024 Results Follow-Up [facility] Medical [facility] Cardiology [address] [facility] [address] [place] [address] Cinda Jimenez MD Transthoracic Echo (TTE) Complete W Doppler/CF 08/06/2024 2:00 PM CDT Ancillary Procedure 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; Frequent falls; Persistent atrial fibrillation (HCC); Chronic anticoagulation; Chronic diastolic heart failure (HCC) 06/30/2024 10:00 AM CDT Office Visit [facility] Ophthalmology [address] [place] [address] [place] [phone] Leeann Horvath MD Orbital floor (blow-out) closed fracture (HCC) (Primary Dx); Mixed type age-related cataract, both eyes 06/23/2024 11:59 AM CDT - 06/23/2024 11:59 PM CDT Hospital Encounter [facility] [address] [place] [id number] Discharge Disposition: Discharge to home or self care 06/23/2024 11:00 AM CDT Office Visit [facility] Surgery [address] [facility] 6th [place] [address] [place] [phone] Margy Walker MD PhD Fracture (Primary Dx); Other closed intra-articular fracture of distal end of left radius, initial encounter 06/15/2024 Telephone [facility] Surgery [address] [facility] 6th [place] [address] [place] [phone] Erica Velarde 06/09/2024 Telephone [facility] Scheduling [address] [place] [address] Nu Milian MD 05/31/2024 Telephone [facility] Ophthalmology [address] [place], [place] [phone] Leeann Horvath MD 05/28/2024 Documentation [facility] Surgeon [address] [place] [address] Lorena Beck NP 05/27/2024 Telephone [facility] ([employer] - [facility] ENT [address] [facility] 11th [place] [address] [place] [phone] Sybil Burgess, 05/13/2024 12:53 AM TACK CUTTER - 05/27/2024 7:22 PM TACK CUTTER Hospital Encounter [facility] [address] [place] [phone] Edwige Strickland MD Vallar, Kelly Jean, MD Smith, Miya Alys, MD Croft, Irineo, MD Fall, initial encounter (Primary Dx); Closed fracture of right orbital floor, initial encounter (HCC); Frequent falls; Other closed intra-articular fracture of distal end of left radius, initial encounter Discharge Disposition: Discharge to an Rehab facility 05/19/2024 7:30 AM TACK CUTTER - 05/19/2024 10:50 AM TACK CUTTER Surgery [facility] Operating Room [address] [place] [address] Annemarie Lea MD OPEN REDUCTION INTERNAL FIXATION - ORBITAL FRACTURE 05/19/2024 7:51 AM TACK CUTTER Anesthesia Event [facility] Operating Room [address] [place] [address] Mag Villatoro MD Ridenour, Rebekah Elizabeth, NP 05/18/2024 3:50 PM TACK CUTTER - 05/18/2024 6:30 PM TACK CUTTER Surgery [facility] Operating Room [address] [place] [address] Margy Walker MD PhD OPEN REDUCTION INTERNAL FIXATION RADIUS - DISTAL 05/18/2024 3:47 PM TACK CUTTER Anesthesia Event [facility] Operating Room [address] [place] [address] Zack Rizvi MD Ridenour, Rebekah Elizabeth, NP 05/15/2024 Orders Only [facility] Neurosurgery [address] [facility] 6th [place] [address] [place] [address] Geraldine Barbosa NP Intraparenchymal hematoma of brain due to trauma, with unknown loss of consciousness status, unspecified laterality, subsequent encounter (Primary Dx); Fall, initial encounter from Last 3 Months Allergies Active Allergy [...] 05/23/2024 Assessment & Plan (05/26/2024 9:50 AM TACK CUTTER): #COPD #TRAVIS, chronic #Chronic hypoxic respiratory failure [...] 05/23/2024 Assessment & Plan (05/27/2024 11:52 AM TACK CUTTER): 3 tx out ICU, PT/OT - 05/25: awaiting repeat swallow evaluation, calorie counts - 05/26: Continue Tfs at nightly, Calorie counts. Wean O2 back to home 4L. Not medically ready for discharge. 05/27: Patient is medically stable for discharge, SW/CM updated. Discharge pending facility bed availability Treatment note 05/14 [x] Feeding difficulties 05/22/2024 Assessment & Plan (05/27/2024 11:55 AM TACK CUTTER): SBFT placed by ENT 05/21 TFs commenced [...] NPO, resumed tube feeds, ordered for repeat AGRONOMY INTERNSHIP evaluation. Recommend up in chair for all meals and 1:1 assistance during meals pending AGRONOMY INTERNSHIP evaluation. Discussed with patient and nurse to inform provider of any change in clinical exam or vital signs. 05/25: repeat Swallow- regular diet, regular thin liquids assistance with meals, calorie counts ordered, cycle tube feeding over PM MBS (05/27): swallow mechanism is normal Respiratory distress 05/20/2024 Assessment & Plan (05/27/2024 11:55 AM TACK CUTTER): Transferred to SICU 05/18 ON after respiratory [...] 05/14/2024 Assessment & Plan (05/15/2024 2:15 PM TACK CUTTER): - Orthostatic vital signs (05/14): negative - [...] 05/14/2024 Assessment & Plan (05/14/2024 12:48 PM TACK CUTTER): - Tylenol 1g q6h - Gabapentin 300mg TID - Robaxin 500mg TID PRN - Oxycodone 5mg q4h PRN Closed fracture of distal end of left radius Assessment & Plan (05/27/2024 11:55 AM TACK CUTTER): - Plastics consult - L hand/wrist xr [...] 05/14/2024 Assessment & Plan (05/25/2024 11:39 AM TACK CUTTER): - Magnesium (05/14): 1.9mg/dL - 05/14: replete Magnesium 2g IV - Magnesium (05/15): 2.0mg/dL - Magnesium (05/20): 2.2mg/dL - Magnesium (05/25): 2.0mg/dL - continue to trend Magnesium Fall, initial encounter 05/13/2024 Assessment & Plan (05/15/2024 10:18 AM TACK CUTTER): Syncopal workup given unclear mechanism (TTE, carotid [...] months Assessment & Plan (05/27/2024 11:52 AM TACK CUTTER): Ophtho c/s ---HOB elevation, open-mouth sneezing, no [...] to be tasked with Dr Lea's team. [phone] Antibiotics Ancef 7day (complete) Intraparenchymal hematoma of brain due to trauma 05/13/2024 Assessment & Plan (05/23/2024 4:06 PM TACK CUTTER): - Neurosurgery consult - Repeat head CT [...] 05/13/2024 Assessment & Plan (05/25/2024 11:36 AM TACK CUTTER): - Hold Xarelto - home diltiazem 180 [...] 05/13/2024 Assessment & Plan (05/24/2024 3:43 PM TACK CUTTER): Grade II diastolic dysfunction -EF 70%, moderate pulmonary hypertension (09/2021) 3/2: resumed home diltiazem. CTM BP and resume home lasix when appropriate. Restless leg syndrome 05/13/2024 Assessment & Plan (05/13/2024 2:32 PM TACK CUTTER): - Continue home ropinrole and pramipexole, gabapentin Mood disorder 05/13/2024 Assessment & Plan (05/13/2024 2:37 PM TACK CUTTER): Continue home zoloft Heart failure with mildly re duced ejection fraction (HFmrEF) 01/15/2024 Assessment & Plan (05/27/2024 11:57 AM TACK CUTTER): #HTN, chronic #HFrEF, chronic #Severe MR #Severe TI #Severe pulmonary hypertension - TTEs as above - Home O2 4L - Follows with [facility] Cardiology - Home Diltiazem, Entresto, Lasix (1/2 dose) and metoprolol continued Persistent atrial fibrillation 02/20/2022 Noncompliance with medicatio n treatment due to intermittent use of medication 12/18/2021 Morbid (severe) obesity due to excess calories 0 07/05/2021 Labile hypertension 03/23/2021 Hypotension due to drugs 03/23/2021 Coronary artery disease invo lving tetlin coronary artery of tetlin heart without angina pectoris 02/10/2021 Mixed hyperlipidemia 02/10/2021 Chronic obstructive pulmonary disease 02/10/2021 Chronic respiratory failure with hypoxia 021 TRAVIS on CPAP 02/10/2021 Frequent falls 02/10/2021 Resolved Problems Problem Noted Date Diagnosed Date Resolved Date COPD (chronic obstructive pulmonary disease) 5 05/23/2024 Assessment & Plan (05/13/2024 2:35 PM TACK CUTTER): - home meds: albuterol, ipratopium-albuterol Discharge planning issues 05/13/2024 Assessment & Plan (05/18/2024 2:27 PM TACK CUTTER): - 05/14: orthostatic vital signs pending, syncope [...] on file Legal Sex Female 4:29 PM TACK CUTTER Gender Identity Not on file Sexual Orientation Not on file Last Filed Vital Signs Vital Sign Reading Time Taken Comments Blood Pressure 120/72 07/22/2024 9:18 AM CDT Pulse 81 07/22/2024 9:18 AM CDT Temperature 37.1 C (98.8 F) 05/27/2024 3:28 PM TACK CUTTER Respiratory Rate 20 05/27/2024 11:49 AM TACK CUTTER Oxygen Saturation 92% 07/22/2024 9:18 AM CDT 4L O2 Inhaled Oxygen Concentration - - Weight 102.5 kg (226 lb) 07/22/2024 9:18 AM CDT Height 165.1 cm (5' 5 ) 07/22/2024 9:18 AM CDT Body Mass Index 37.61 07/22/2024 9:18 AM CDT Plan of Treatment Not on file Medical Devices Implanted Type Area Silviculture Professor Device Identifier Shelf Expiration Date Model / Serial / Lot Implantech Sheeting Silastic Non Reinforced Alliedsil [id number] Silicone 23-700-40 - [id number] Implanted:Qty: 1 on 05/19/2024 by Annemarie Lea MD at [facility] Other - see comments Right: Face Implantech 07/03/2028 23-700- 40 / / Yermo Craniomaxillofacial Craniomaxillofacial Right 3d Large Implant Orbital Medpor Titan [id number] - [id number] Implanted:Qty: 1 on 05/19/2024 by Annemarie Lea MD at [facility] Other - see comments Right: Face Luis Carlos Craniomaxillofacial 08/19/2032 [id number] / / Yermo Craniomaxillofacial 1.2mm 4mm Self Drill Axial Stability Lower Profile Screw Bone 56-39451 - [id number] Implanted:Qty: 1 on 05/19/2024 by Annemarie Lea MD at [facility] Other - see comments Right: Face Yermo Craniomaxillofacial 56-1290 4 / / Medartis Inc Plt 2.5 Adaptive Ii Trilock Dist Rad Vol L 10h Narrow T2.0 A-4750.101 - [id number] Implanted:Qty: 1 on 05/18/2024 by Margy Walker MD PhD at [facility] Left: Wrist Medartis Inc A-4750. 101 / / Medartis Inc 2.5mm 18mm Lock Cortical Screw Bone A-5750.18 - [id number] Implanted:Qty: 1 on 05/18/2024 by Margy Walker MD PhD at [facility] Left: Wrist [employer] A-5750. 18 / / [employer] 2.5mm 22mm Lock Cortical Screw Bone A-5750.22 - [id number] Implanted:Qty: 2 on 05/18/2024 by Margy Walker MD PhD at [facility] Left: Wrist [employer] A-5750. 22 / / [employer] 2.5mm 20mm Lock Cortical Screw Bone A-5750.20 - [id number] Implanted:Qty: 3 on 05/18/2024 by Margy Walker MD PhD at [facility] Left: Wrist [employer] Inc A-5750. 20 / / Medartis Inc Aptus 2.5mm 14mm Lock Cortical Screw Bone A-5750.14 - [id number] Implanted:Qty: 2 on 05/18/2024 by Margy Walker MD PhD at [facility] Left: Wrist [employer] Inc A-5750. 14 / / [employer]is Inc Aptus 2.5mm 14mm Cortical Screw Bone A-5700.14 - [id number] Implanted:Qty: 1 on 05/18/2024 by Margy Walker MD PhD at [facility] Left: Wrist [employer] Inc A-5700. 14 / / Med[employer]is Inc 2.5mm 12mm Lock Cortical Screw Bone A-5750.12 - [id number] Implanted:Qty: 1 on 05/18/2024 by Margy Walker MD PhD at [facility] Left: Wrist [employer] Inc A-5750. 12 / / Explanted Type Area Silviculture Professor Device Identifier Shelf Expiration Date Model / Serial / Lot Medartis Inc Aptus 2.5mm 16mm Cortical Screw Bone A-5700.16 - [id number] Explanted:Qty: 1 on 05/18/2024 by Margy Walker MD PhD at [facility] Left: Wrist [employer] Inc A-5700 .16 / / Medartis Inc 2.5mm 18mm Lock Cortical Screw Bone A-5750.18 - [id number] Explanted:Qty: 1 on 05/18/2024 at [facility] Left: Wrist [employer] Inc A-5750 .18 [...] W VIDEO IP Routine 05/27/2024 10:35 AM TACK CUTTER EGFR Routine 05/26/2024 9:12 PM TACK CUTTER BASIC METABOLIC PANEL Routine 05/26/2024 9:12 PM TACK CUTTER CBC WITHOUT DIFFERENTIAL Routine 05/26/2024 9:12 PM TACK CUTTER MAGNESIUM Routine 05/26/2024 9:12 PM TACK CUTTER PHOSPHORUS Routine 05/26/2024 9:12 PM TACK CUTTER PEP THERAPY Routine 05/26/2024 12:01 PM TACK CUTTER PEP THERAPY Routine 05/26/2024 6:01 AM TACK CUTTER PEP THERAPY Routine 05/26/2024 12:00 AM TACK CUTTER EGFR Routine 05/25/2024 9:54 PM TACK CUTTER BASIC METABOLIC PANEL Routine 05/25/2024 9:54 PM TACK CUTTER CBC WITHOUT DIFFERENTIAL Routine 05/25/2024 9:54 PM TACK CUTTER MAGNESIUM Routine 05/25/2024 9:54 PM TACK CUTTER PHOSPHORUS Routine 05/25/2024 9:54 PM TACK CUTTER PEP THERAPY Routine 05/25/2024 6:00 PM TACK CUTTER PEP THERAPY Routine 05/25/2024 12:00 PM TACK CUTTER PEP THERAPY Routine 05/25/2024 6:01 AM TACK CUTTER PEP THERAPY Routine 05/25/2024 12:00 AM TACK CUTTER ECG 12-LEAD STAT 05/24/2024 10:55 PM TACK CUTTER EGFR Routine 05/24/2024 8:54 PM TACK CUTTER BASIC METABOLIC PANEL Routine 05/24/2024 8:54 PM TACK CUTTER CBC WITHOUT DIFFERENTIAL Routine 05/24/2024 8:54 PM TACK CUTTER MAGNESIUM Routine 05/24/2024 8:54 PM TACK CUTTER PHOSPHORUS Routine 05/24/2024 8:54 PM TACK CUTTER PEP THERAPY Routine 05/24/2024 6:00 PM TACK CUTTER PEP THERAPY Routine 05/24/2024 12:00 PM TACK CUTTER PEP THERAPY Routine 05/24/2024 6:00 AM TACK CUTTER PEP THERAPY Routine 05/24/2024 12:00 AM TACK CUTTER ECG 12-LEAD Routine 05/23/2024 11:24 PM TACK CUTTER EGFR Routine 05/23/2024 8:13 PM TACK CUTTER BASIC METABOLIC PANEL Routine 05/23/2024 8:13 PM TACK CUTTER CBC WITHOUT DIFFERENTIAL Routine 05/23/2024 8:13 PM TACK CUTTER MAGNESIUM Routine 05/23/2024 8:13 PM TACK CUTTER PHOSPHORUS Routine 05/23/2024 8:13 PM TACK CUTTER PEP THERAPY Routine 05/23/2024 6:00 PM TACK CUTTER PEP THERAPY Routine 05/23/2024 12:00 PM TACK CUTTER CRITICAL CARE Routine 05/23/2024 6:40 AM TACK CUTTER Fall, initial encounter PEP THERAPY Routine 05/23/2024 6:00 AM TACK CUTTER PEP THERAPY Routine 05/23/2024 12:01 AM TACK CUTTER POCT GLUCOSE DEVICE Routine 05/22/2024 11:10 PM TACK CUTTER EGFR Routine 05/22/2024 8:23 PM TACK CUTTER BASIC METABOLIC PANEL Routine 05/22/2024 8:23 PM TACK CUTTER CBC WITHOUT DIFFERENTIAL Routine 05/22/2024 8:23 PM TACK CUTTER MAGNESIUM Routine 05/22/2024 8:23 PM TACK CUTTER PHOSPHORUS Routine 05/22/2024 8:23 PM TACK CUTTER CRITICAL CARE Routine 05/22/2024 7:32 PM TACK CUTTER Fall, initial encounter POCT GLUCOSE DEVICE Routine 05/22/2024 6 :58 PM TACK CUTTER PEP THERAPY Routine 05/22/2024 6:00 PM TACK CUTTER IRON PROFILE W/ IBC STAT 05/22/2024 3 :44 PM TACK CUTTER POCT GLUCOSE DEVICE Routine 05/22/2024 3 :03 PM TACK CUTTER PEP THERAPY Routine 05/22/2024 12:00 PM TACK CUTTER POCT GLUCOSE DEVICE Routine 05/22/2024 10:55 AM TACK CUTTER POCT GLUCOSE DEVICE Routine 05/22/2024 7 :01 AM TACK CUTTER CRITICAL CARE Routine 05/22/2024 6:44 AM TACK CUTTER Fall, initial encounter PEP THERAPY Routine 05/22/2024 6:01 AM TACK CUTTER BLOOD GAS, ARTERIAL Routine 05/22/2024 4 :31 AM TACK CUTTER POCT GLUCOSE DEVICE Routine 05/22/2024 3 :02 AM TACK CUTTER PEP THERAPY Routine 05/22/2024 12:00 AM TACK CUTTER POCT GLUCOSE DEVICE Routine 05/21/2024 10:54 PM TACK CUTTER EGFR Routine 05/21/2024 8:54 PM TACK CUTTER BLOOD GAS, ARTERIAL Routine 05/21/2024 8 :54 PM TACK CUTTER BASIC METABOLIC PANEL Routine 05/21/2024 8:54 PM TACK CUTTER CBC WITHOUT DIFFERENTIAL Routine 05/21/2024 8:54 PM TACK CUTTER MAGNESIUM Routine 05/21/2024 8:54 PM TACK CUTTER PHOSPHORUS Routine 05/21/2024 8:54 PM TACK CUTTER XR CHEST 1 VIEW IP Routine 05/21/2024 8:36 PM TACK CUTTER CRITICAL CARE Routine 05/21/2024 8:00 PM TACK CUTTER Fall, initial encounter POCT GLUCOSE DEVICE Routine 05/21/2024 7 :43 PM TACK CUTTER PEP THERAPY Routine 05/21/2024 6:00 PM TACK CUTTER BLOOD GAS, ARTERIAL STAT 05/21/2024 3 :11 PM TACK CUTTER POCT GLUCOSE DEVICE Routine 05/21/2024 3 :10 PM TACK CUTTER EXTUBATION Routine 05/21/2024 2:27 PM TACK CUTTER PEP THERAPY Routine 05/21/2024 12:00 PM TACK CUTTER POCT GLUCOSE DEVICE Routine 05/21/2024 11:14 AM TACK CUTTER T4, FREE Routine 05/21/2024 9:07 AM TACK CUTTER AMMONIA Routine 05/21/2024 9:07 AM TACK CUTTER THYROID FUNCTION CASCADE Routine 05/21/2024 9:07 AM TACK CUTTER TRIGLYCERIDES Timed 05/21/2024 9:07 AM TACK CUTTER POCT GLUCOSE DEVICE Routine 05/21/2024 7 :24 AM TACK CUTTER CRITICAL CARE Routine 05/21/2024 7:02 AM TACK CUTTER Fall, initial encounter PEP THERAPY Routine 05/21/2024 6:01 AM TACK CUTTER POCT GLUCOSE DEVICE Routine 05/21/2024 3 :47 AM TACK CUTTER XR CHEST 1 VIEW ED Urgent/IP Urgent 05/21/2024 12:12 AM TACK CUTTER PEP THERAPY Routine 05/21/2024 12:00 AM TACK CUTTER POCT GLUCOSE DEVICE Routine 05/20/2024 11:29 PM TACK CUTTER XR ABDOMEN AP 1 VIEW ED Urgent/IP Urgent 05/20/2024 8:05 PM TACK CUTTER EGFR Routine 05/20/2024 7:44 PM TACK CUTTER BASIC METABOLIC PANEL Routine 05/20/2024 7:44 PM TACK CUTTER CBC WITHOUT DIFFERENTIAL Routine 05/20/2024 7:44 PM TACK CUTTER MAGNESIUM Routine 05/20/2024 7:44 PM TACK CUTTER PHOSPHORUS Routine 05/20/2024 7:44 PM TACK CUTTER POCT GLUCOSE DEVICE Routine 05/20/2024 7 :36 PM TACK CUTTER CRITICAL CARE Routine 05/20/2024 6:22 PM TACK CUTTER Fall, initial encounter PEP THERAPY Routine 05/20/2024 6:00 PM TACK CUTTER POCT GLUCOSE DEVICE Routine 05/20/2024 3 :33 PM TACK CUTTER PEP THERAPY Routine 05/20/2024 12:00 PM TACK CUTTER POCT GLUCOSE DEVICE Routine 05/20/2024 11:36 AM TACK CUTTER POCT GLUCOSE DEVICE Routine 05/20/2024 7 :28 AM TACK CUTTER CRITICAL CARE Routine 05/20/2024 7:27 AM TACK CUTTER Fall, initial encounter XR CHEST 1 VIEW ED Urgent/IP Urgent 05/20/2024 6:25 AM TACK CUTTER PEP THERAPY Routine 05/20/2024 6:01 AM TACK CUTTER POCT GLUCOSE DEVICE Routine 05/20/2024 3 :47 AM TACK CUTTER BLOOD GAS, ARTERIAL STAT 05/20/2024 3 :01 AM TACK CUTTER PEP THERAPY Routine 05/20/2024 12:00 AM TACK CUTTER POCT GLUCOSE DEVICE Routine 05/19/2024 11:34 PM TACK CUTTER REPOSITION ENDOTRACHEAL TUBE Routine 05/19/2024 10:35 PM TACK CUTTER EGFR Routine 05/19/2024 9:35 PM TACK CUTTER BLOOD GAS, ARTERIAL Routine 05/19/2024 9 :35 PM TACK CUTTER BASIC METABOLIC PANEL Routine 05/19/2024 9:35 PM TACK CUTTER CBC WITHOUT DIFFERENTIAL Routine 05/19/2024 9:35 PM TACK CUTTER MAGNESIUM Routine 05/19/2024 9:35 PM TACK CUTTER PHOSPHORUS Routine 05/19/2024 9:35 PM TACK CUTTER CRITICAL CARE Routine 05/19/2024 8:59 PM TACK CUTTER Fall, initial encounter POCT GLUCOSE DEVICE Routine 05/19/2024 7 :36 PM TACK CUTTER PEP THERAPY Routine 05/19/2024 6:00 PM TACK CUTTER POCT GLUCOSE DEVICE Routine 05/19/2024 3 :43 PM TACK CUTTER RT COMMUNICATION Routine 05/19/2024 2:30 PM TACK CUTTER XR CHEST 1 VIEW ED Urgent/IP Urgent 05/19/2024 2:08 PM TACK CUTTER POCT GLUCOSE DEVICE Routine 05/19/2024 12:49 PM TACK CUTTER EGFR STAT 05/19/2024 12:45 PM TACK CUTTER PHOSPHORUS STAT 05/19/2024 12:45 PM TACK CUTTER MAGNESIUM STAT 05/19/2024 12:45 PM TACK CUTTER BASIC METABOLIC PANEL STAT 05/19/2024 12:45 PM TACK CUTTER CBC WITHOUT DIFFERENTIAL STAT 05/19/2024 12:45 PM TACK CUTTER BLOOD GAS, ARTERIAL STAT 05/19/2024 12:45 PM TACK CUTTER PEP THERAPY Routine 05/19/2024 12:00 PM TACK CUTTER FL FLUOROSCOPY < 1 HOUR IP Routine 05/19/2024 11:22 AM TACK CUTTER POC BLOOD GAS AND CHEMISTRIES, ARTERIAL Routine 05/19/2024 10:38 AM TACK CUTTER IA AN PROCEDURE PLACEHOLDER Routine 05/19/2024 9:51 AM TACK CUTTER IA AN PROCEDURE PLACEHOLDER Routine 05/19/2024 9:46 AM TACK CUTTER IA AN ELECTIVE ENDOTRACHEAL AIRWAY Routine 05/19/2024 9:46 AM TACK CUTTER POC BLOOD GAS AND CHEMISTRIES, ARTERIAL Routine 05/19/2024 8:35 AM TACK CUTTER OPEN REDUCTION INTERNAL FIXATION ORBITAL FRACTURE. 05/19/2024 7:54 AM TACK CUTTER Fall, initial encounter Closed fracture of right orbital floor, initial encounter ([facility]) Case Notes [email or web address]- Per Shavonne via email make first start - DMF [email or web address]- Per Dr. Lea via case msg - Outpatient, 2 hours- [email or web address]- Case msg sent to construction scheduler for ctc and po destination- DMF POCT GLUCOSE DEVICE Routine 05/19/2024 7 :36 AM TACK CUTTER CRITICAL CARE Routine 05/19/2024 7:06 AM TACK CUTTER Fall, initial encounter PEP THERAPY Routine 05/19/2024 6:01 AM TACK CUTTER CRITICAL RESULT CALLBACK CHEMISTRY Timed 05/19/2024 5:18 AM TACK CUTTER TYPE AND SCREEN Timed 05/19/2024 5:18 AM TACK CUTTER BLOOD GAS, VENOUS Timed 05/19/2024 5:1 8 AM TACK CUTTER CRITICAL RESULT CALLBACK CHEMISTRY Timed 05/19/2024 3:41 AM TACK CUTTER BLOOD GAS, ARTERIAL Timed 05/19/2024 3 :41 AM TACK CUTTER XR CHEST 1 VIEW ED Urgent/IP Urgent 05/19/2024 3:20 AM TACK CUTTER CRITICAL CARE Routine 05/19/2024 3:00 AM TACK CUTTER POCT GLUCOSE DEVICE Routine 05/19/2024 2 :38 AM TACK CUTTER CTA/CTP RAPID STROKE Critical/Life-T hreatening 05/19/2024 2:26 AM TACK CUTTER POCT [id number],WB - ISTAT Routine 05/19/2024 1:27 AM TACK CUTTER ARTERIAL BLOOD GAS W/LACTATE Routine 05/19/2024 1:22 AM TACK CUTTER POCT GLUCOSE DEVICE Routine 05/19/2024 1 :15 AM TACK CUTTER EGFR Routine 05/19/2024 12:55 AM TACK CUTTER POTASSIUM, WHOLE BLOOD STAT 05/19/2024 12:55 AM TACK CUTTER BASIC METABOLIC PANEL Routine 05/19/2024 12:55 AM TACK CUTTER CBC WITHOUT DIFFERENTIAL Routine 05/19/2024 12:55 AM TACK CUTTER MAGNESIUM Routine 05/19/2024 12:55 AM TACK CUTTER PHOSPHORUS Routine 05/19/2024 12:55 AM TACK CUTTER PEP THERAPY Routine 05/19/2024 12:00 AM TACK CUTTER PEP THERAPY Routine 05/18/2024 6:00 PM TACK CUTTER IA AN PROCEDURE PLACEHOLDER Routine 05/18/2024 4:41 PM TACK CUTTER IA AN ELECTIVE ENDOTRACHEAL AIRWAY Routine 05/18/2024 4:41 PM TACK CUTTER IA AN PROCEDURE PLACEHOLDER Routine 05/18/2024 3:47 PM TACK CUTTER RELEASE CARPAL TUNNEL 05/18/2024 3:02 PM TACK CUTTER Other closed intra-articular fracture of distal end of left radius, initial encounter Case Notes 05/15 per yesenia via case message, ctc is 90 min and post op is surg floor- RC OPEN REDUCTION INTERNAL FIXATION RADIUS - DISTAL 05/18/2024 3:02 PM TACK CUTTER Other closed intra-articular fracture of distal end of left radius, initial encounter Case Notes 05/15 per yesenia via case message, ctc is 90 min and post op is surg floor- RC PEP THERAPY Routine 05/18/2024 12:00 PM TACK CUTTER PEP THERAPY Routine 05/18/2024 6:01 AM TACK CUTTER PEP THERAPY Routine 05/18/2024 12:00 AM TACK CUTTER EGFR Routine 05/17/2024 11:56 PM TACK CUTTER BASIC METABOLIC PANEL Routine 05/17/2024 11:56 PM TACK CUTTER CBC WITHOUT DIFFERENTIAL Routine 05/17/2024 11:56 PM TACK CUTTER MAGNESIUM Routine 05/17/2024 11:56 PM TACK CUTTER PHOSPHORUS Routine 05/17/2024 11:56 PM TACK CUTTER PEP THERAPY Routine 05/17/2024 6:00 PM TACK CUTTER PEP THERAPY Routine 05/17/2024 1:43 PM TACK CUTTER PEP THERAPY Routine 05/17/2024 1:43 PM TACK CUTTER PEP THERAPY Routine 05/17/2024 1:43 PM TACK CUTTER PEP THERAPY Routine 05/17/2024 1:43 PM TACK CUTTER EGFR Routine 05/16/2024 10:25 PM TACK CUTTER BASIC METABOLIC PANEL Routine 05/16/2024 10:25 PM TACK CUTTER CBC WITHOUT DIFFERENTIAL Routine 05/16/2024 10:25 PM TACK CUTTER MAGNESIUM Routine 05/16/2024 10:25 PM TACK CUTTER PHOSPHORUS Routine 05/16/2024 10:25 PM TACK CUTTER EGFR Routine 05/15/2024 10:17 PM TACK CUTTER BASIC METABOLIC PANEL Routine 05/15/2024 10:17 PM TACK CUTTER CBC WITHOUT DIFFERENTIAL Routine 05/15/2024 10:17 PM TACK CUTTER MAGNESIUM Routine 05/15/2024 10:17 PM TACK CUTTER PHOSPHORUS Routine 05/15/2024 10:17 PM TACK C[facility]TER BLOOD GAS, ARTERIAL STAT 05/15/2024 11:40 AM TACK CUTTER TRANSTHORACIC ECHO (TTE) COMPLETE W DOPPLER/CF W CONTRAST Routine 05/15/2024 10:00 AM TACK CUTTER EGFR Routine 05/15/2024 8:13 AM TACK CUTTER BASIC METABOLIC PANEL Routine 05/15/2024 8:13 AM TACK CUTTER CBC WITHOUT DIFFERENTIAL Routine 05/15/2024 8:13 AM TACK CUTTER MAGNESIUM Routine 05/15/2024 8:13 AM TACK CUTTER PHOSPHORUS Routine 05/15/2024 8:13 AM TACK CUTTER ECG 12-LEAD STAT 05/15/2024 7:03 AM TACK CUTTER ECG 12-LEAD STAT 05/15/2024 7:02 AM TACK CUTTER from Last 3 Months Results * TRANSTHORACIC ECHO (TTE) COMPLETE W DOPPLER/CF WO CONTRAST (08/06/2024 2:36 PM CDT) EF Mod BP 52 % CONS SCIMAGE Anatomical Region Laterality Modality Ultrasound 08/06/2024 1:53 PM CDT Narrative 08/06/2024 3:[address] [facility] [address], [address], [place] [address] P:[phone] P:[phone] Echocardiographic Report Patient Name: LORRAINE WALLER J : 1945 Study Date: 08/06/2024 1:53:54 PM Gender: F Tech: SW Location: EDW Ref Provider: CINDA JIMENEZ Height(Cm): [...] FINDINGS: Interpretation Site: Exam was interpreted at [facility]. Left Ventricle: Normal left ventricular systolic [...] fibrillation. Electronically Signed By: Dr. Nedra Burns [facility] 08/06/2024 3:19:51 PM CDT Procedure Note Nedra Burns MD - 08/06/2024 [facility] Cardiology [address], [address], [place] [address] P:[phone] P:[phone] Echocardiographic Report Patient Name: LORRAINE WALLER J [...] FINDINGS: Interpretation Site: Exam was interpreted at [facility]. Left Ventricle: Normal left ventricular systolic [...] fibrillation. Electronically Signed By: Dr. Nedra Burns [facility] 08/06/2024 3:19:51 PM CDT [facility] Ludin Jimenez MD CV ECHO PROCEDURES Kylie [...] Barium Swallow W Video (05/27/2024 10:35 AM TACK CUTTER) Anatomical Region Laterality Modality Head and Neck N/A Radio Fluoroscop y 05/27/2024 11:0 1 AM TACK CUTTER Impressions 05/27/2024 11:14 AM TACK CUTTER The swallowing mechanism is normal; see above [...] Serrano M.D., Ph.D Narrative 05/27/2024 11:14 AM TACK CUTTER EXAMINATION: MODIFIED BARIUM SWALLOW HISTORY: Dysphagia. TECHNIQUE: [...] Electronically signed by: Murtaza Serrano M.D., Ph.D Debby Gaona ENTERPRISE APPLICATION ANALYST IMG FLUOROSCOPY PROCED URES Final Result * eGFR (05/26/2024 9:12 PM TACK CUTTER) eGFR 88 >=60 mL/min/1. 73 m2 Comment: [...] last reviewed 2021. Blood 05/26/2024 9:12 PM TACK CUTTER 05/26/2024 9:54 PM TACK CUTTER us Christiano Ko MD LAB BLOOD ORDERABLES Final Result Performing Organization Address [facility]/ZIP Co de Phone Number [facility] Department [place] [address] * (ABNORMAL) CBC without differential (05/26/2024 9:12 PM TACK CUTTER) WBC 8.8 3.8 - 9.9 K/cumm Hgb 9.7(L) 11.9 - 15.5 g/dL [facility] Hct 32.8(L) 35.6 - 45.5 % [facility] Plt 209 150 - 400 K/cumm [facility] MPV 11.9 9.1 - 12.3 fL [facility] RBC 3.36(L) 3.90 - 5.20 M/cumm [facility] MCV 97.6(H) 81.3 - 96.4 fL [facility] MCH 28.9 27.1 - 33.3 pg [facility] MCHC 29.6(L) 32.3 - 35.7 g/dL [facility] RDW CV 14.2 11.1 - 14.9 % [facility] RDW SD 50.4(H) 35.7 - 48.1 fL [facility] NRBC abs 0.00 0.00 - 0.01 K/cumm [facility] Blood 05/26/2024 9:12 PM TACK CUTTER 05/26/2024 9:54 PM TACK CUTTER us Christiano Ko MD LAB BLOOD ORDERABLES Final Result Performing Organization Address City/[facility]/ZIP Co de Phone Number [facility] Department [place] [address] * Phosphorus (05/26/2024 9:12 PM TACK CUTTER) Pathologist [facility] Phosphorus, pl 2.8 2.3 - 4.5 mg/dL Blood 05/26/2024 9:12 PM TACK CUTTER 05/26/2024 9:54 PM TACK CUTTER Christiano Ko MD LAB BLOOD ORDERABLES Final Result Performing Organization Address City/[facility] Co de Phone Number [facility] [place] [address] * Magnesium (05/26/2024 9:12 PM TACK CUTTER) Pathologist [facility] Magnesium 2.0 1.4 - 2.5 mg/dL Blood 05/26/2024 9:12 PM TACK CUTTER 05/26/2024 9:54 PM TACK CUTTER Christiano Ko MD LAB BLOOD ORDERABLES Final Result Performing Organization Address [facility]/RUST de Phone Number [facility] [place] [address] * Basic metabolic panel (05/26/2024 9:12 PM TACK CUTTER) Pathologist [facility] Sodium 143 135 - 145 mmol/L Potassium, pl 4.2 3.3 - 4.9 mmol/L [facility] Chloride 102 97 - 110 mmol/L [facility] CO2 31 22 - 32 mmol/L [facility] Anion gap 10 2 - 15 mmol/L [facility] BUN 21 6 - 25 mg/dL [facility] Creatinine 0.71 0.60 - 1.10 mg/dL [facility] Glucose 165 70 - 199 mg/dL [facility] Comment: Interpretive Data Fasting glucose >/= 126 [...] 2022. Calcium 9.3 8.5 - 10.3 mg/dL [facility] Blood 05/26/2024 9:12 PM TACK CUTTER 05/26/2024 9:54 PM TACK CUTTER Christiano Ko MD LAB BLOOD ORDERABLES Final Result Performing Organization Address City/[facility]/ZIP Co de Phone Number [facility] Department [place] [address] * eGFR (05/25/2024 9:54 PM TACK CUTTER) [facility] eGFR >90 >=60 mL/min/1. 73 m2 Comment: [...] last reviewed 2021. Blood 05/25/2024 9:54 PM TACK CUTTER 05/25/2024 10:27 PM TACK CUTTER Christiano Ko MD LAB BLOOD ORDERABLES Final Result Performing Organization Address City/[facility]/ZIP Co de Phone Number [facility] Department [place] [address] * (ABNORMAL) CBC without differential (05/25/2024 9:54 PM TACK CUTTER) [facility] WBC 6.4 3.8 - 9.9 K/cumm Hgb 9.4(L) 11.9 - 15.5 g/dL [facility] Hct 31.2(L) 35.6 - 45.5 % [facility] Plt 170 150 - 400 K/cumm [facility] MPV 11.5 9.1 - 12.3 fL [facility] RBC 3.22(L) 3.90 - 5.20 M/cumm [facility] MCV 96.9(H) 81.3 - 96.4 fL [facility] MCH 29.2 27.1 - 33.3 pg [facility] MCHC 30.1(L) 32.3 - 35.7 g/dL [facility] RDW CV 14.3 11.1 - 14.9 % [facility] RDW SD 50.5(H) 35.7 - 48.1 fL [facility] NRBC abs 0.00 0.00 - 0.01 K/cumm [facility] Blood 05/25/2024 9:54 PM TACK CUTTER 05/25/2024 10:27 PM TACK CUTTER Christiano Ko MD LAB BLOOD ORDERABLES Final Result Performing Organization Address City/[facility]/ZIP Co de Phone Number [facility] Department [place] [address] * Phosphorus (05/25/2024 9:54 PM TACK CUTTER) [facility] Phosphorus, pl 3.5 2.3 - 4.5 mg/dL Blood 05/25/2024 9:54 PM TACK CUTTER 05/25/2024 10:27 PM TACK CUTTER Christiano Ko MD LAB BLOOD ORDERABLES Final Result Performing Organization Address [facility] Co de Phone Number [facility] Department [place] [address] * Magnesium (05/25/2024 9:54 PM TACK CUTTER) [facility] Magnesium 2.1 1.4 - 2.5 mg/dL Blood 05/25/2024 9:54 PM TACK CUTTER 05/25/2024 10:27 PM TACK CUTTER Christiano Ko MD LAB BLOOD ORDERABLES Final Result [facility] [place] [address] * (ABNORMAL) Basic metabolic panel (05/25/2024 9:54 PM TACK CUTTER) [facility] Sodium 145 135 - 145 mmol/L Potassium, pl 4.4 3.3 - 4.9 mmol/L [facility] Chloride 105 97 - 110 mmol/L [facility] CO2 33(H) 22 - 32 mmol/L [facility] Anion gap 7 2 - 15 mmol/L [facility] BUN 13 6 - 25 mg/dL [facility] Creatinine 0.66 0.60 - 1.10 mg/dL [facility] Glucose 112 70 - 199 mg/dL [facility] Comment: Interpretive Data Fasting glucose >/= 126 [...] 2022. Calcium 9.2 8.5 - 10.3 mg/dL [facility] Blood 05/25/2024 9:54 PM TACK CUTTER 05/25/2024 10:27 PM TACK CUTTER Christiano Ko MD LAB BLOOD ORDERABLES Final Result Performing Organization Address City/[facility]/ZIP Co de Phone Number [facility] Department of [employer] [address] [place] [address] * ECG 12 lead (05/24/2024 10:55 PM TACK CUTTER) Pathologist [facility] Ventricular Rate EKG/Min 99 BPM [facility] QRS-Interval (MSEC) 86 ms [facility] QT-Interval (MSEC) 364 ms [facility] QTc 467 ms [facility] R [place] 91 degrees [facility] T [place] 160 degrees [facility] Diagnosis Atrial fibrillation/fl utter Rightward axis Low voltage QRS Cannot rule out Anterior infarct , age undetermined ST & T wave abnormality, consider lateral ischemia Abnormal ECG When compared with ECG of 23-MAY-2024 23:24, (unconfirmed) T wave inversion no longer evident in Anterior leads Confirmed by GABO PIEDRA M.D ([id number]) on 05/25/2024 3:55:52 PM [facility] 05/24/2024 10:5 5 PM TACK CUTTER 05/25/2024 3:55 PM TACK CUTTER us Christiano Ko MD ECG ORDERABLES Final Resul t [facility] * eGFR (05/24/2024 8:54 PM TACK CUTTER) Pathologist [facility] eGFR 90 >=60 mL/min/1. 73 m2 Comment: [...] data was last reviewed 2021. Blood 05/24/2024 8:5 4 PM TACK CUTTER 05/24/2024 9:30 PM TACK CUTTER us Christiano Ko MD LAB BLOOD ORDERABLES Final Result Performing Organization Address [facility]/ZIP Co de Phone Number [facility] Department [place] [address] * (ABNORMAL) CBC without differential (05/24/2024 8:54 PM TACK CUTTER) Pathologist [facility] WBC 7.1 3.8 - 9.9 K/cumm Hgb 9.1(L) 11.9 - 15.5 g/dL [facility] Hct 29.6(L) 35.6 - 45.5 % [facility] Plt 162 150 - 400 K/cumm [facility] MPV 11.4 9.1 - 12.3 fL [facility] RBC 3.10(L) 3.90 - 5.20 M/cumm [facility] MCV 95.5 81.3 - 96.4 fL [facility] MCH 29.4 27.1 - 33.3 pg [facility] MCHC 30.7(L) 32.3 - 35.7 g/dL [facility] RDW CV 14.5 11.1 - 14.9 % [facility] RDW SD 50.9(H) 35.7 - 48.1 fL [facility] NRBC abs 0.00 0.00 - 0.01 K/cumm [facility] Blood 05/24/2024 8:54 PM TACK CUTTER 05/24/2024 9:31 PM TACK CUTTER us Christiano Ko MD LAB BLOOD ORDERABLES Final Result Performing Organization Address [facility]/ZIP Co de Phone Number [facility] Department [place] [address] * Phosphorus (05/24/2024 8:54 PM TACK CUTTER) Pathologist [facility] Phosphorus, pl 2.5 2.3 - 4.5 mg/dL Blood 05/24/2024 8:54 PM TACK CUTTER 05/24/2024 9:30 PM TACK CUTTER Christiano Ko MD LAB BLOOD ORDERABLES Final Result Performing Organization Address City/[facility] Co de Phone Number [facility] [place] [address] * Magnesium (05/24/2024 8:54 PM TACK CUTTER) [facility] Magnesium 2.0 1.4 - 2.5 mg/dL Blood 05/24/2024 8:54 PM TACK CUTTER 05/24/2024 9:30 PM TACK CUTTER Christiano Ko MD LAB BLOOD ORDERABLES Final Result Performing Organization Address [facility]/[place] de Phone Number [facility] [place] [address] * (ABNORMAL) Basic metabolic panel (05/24/2024 8:54 PM TACK CUTTER) [facility] Sodium 146(H) 135 - 145 mmol/L Potassium, pl 4.8 3.3 - 4.9 mmol/L [facility] Chloride 108 97 - 110 mmol/L [facility] CO2 30 22 - 32 mmol/L [facility] Anion gap 8 2 - 15 mmol/L [facility] BUN 19 6 - 25 mg/dL [facility] Creatinine 0.70 0.60 - 1.10 mg/dL [facility] Glucose 104 70 - 199 mg/dL [facility] Comment: Interpretive Data Fasting glucose >/= 126 [...] 2022. Calcium 9.1 8.5 - 10.3 mg/dL [facility] Blood 05/24/2024 8:54 PM TACK CUTTER 05/24/2024 9:30 PM TACK CUTTER Christiano Ko MD LAB BLOOD ORDERABLES Final Result Performing Organization Address City/[facility]/ZIP Co de Phone Number [facility] Department [place] [address] * ECG 12 lead (05/23/2024 11:24 PM TACK CUTTER) Ventricular Rate EKG/Min 88 BPM [facility] QRS-Interval (MSEC) 84 ms [facility] QT-Interval (MSEC) 364 ms [facility] QTc 440 ms [facility] R [place] 96 degrees [facility] T [place] 148 degrees [facility] Diagnosis Atrial fibrillation/flu tter Rightward axis Low voltage QRS ST & T wave abnormality, consider anterolateral ischemia Abnormal ECG When compared with ECG of 15-MAY-2024 07:03, ST now depressed in Lateral leads Nonspecific T wave abnormality, improved in Inferior leads T wave inversion now evident in Anterolateral leads QT has shortened Confirmed by GABO PIEDRA M.D ([id number]) on 05/26/2024 11:12:20 AM [facility] 05/23/2024 11:2 4 PM TACK CUTTER 05/26/2024 11:12 AM TACK CUTTER us Christiano Ko MD ECG ORDERABLES Final Resul t [facility] * eGFR (05/23/2024 8:13 PM TACK CUTTER) eGFR 80 >=60 mL/min/1. 73 m2 Comment: [...] last reviewed 2021. Blood 05/23/2024 8:13 PM TACK CUTTER 05/23/2024 9:00 PM TACK CUTTER us Christiano Ko MD LAB BLOOD ORDERABLES Final Result [facility] Department [place] [address] * (ABNORMAL) CBC without differential (05/23/2024 8:13 PM TACK CUTTER) WBC 7.3 3.8 - 9.9 K/cumm Hgb 8.7(L) 11.9 - 15.5 g/dL [facility] Hct 29.1(L) 35.6 - 45.5 % [facility] Plt 153 150 - 400 K/cumm [facility] MPV 11.5 9.1 - 12.3 fL [facility] RBC 3.00(L) 3.90 - 5.20 M/cumm [facility] MCV 97.0(H) 81.3 - 96.4 fL [facility] MCH 29.0 27.1 - 33.3 pg [facility] MCHC 29.9(L) 32.3 - 35.7 g/dL [facility] RDW CV 14.6 11.1 - 14.9 % [facility] RDW SD 52.3(H) 35.7 - 48.1 fL [facility] NRBC abs 0.00 0.00 - 0.01 K/cumm [facility] Blood 05/23/2024 8:13 PM TACK CUTTER 05/23/2024 9:03 PM TACK CUTTER Christiano Ko MD LAB BLOOD ORDERABLES Final Result Performing Organization Address [facility] Co de Phone Number [facility] [place] [address] * (ABNORMAL) Phosphorus (05/23/2024 8:13 PM TACK CUTTER) [facility] Phosphorus, pl 2.2(L) 2.3 - 4.5 mg/dL Blood 05/23/2024 8:13 PM TACK CUTTER 05/23/2024 9:00 PM TACK CUTTER Christiano Ko MD LAB BLOOD ORDERABLES Final Result Performing Organization Address [facility]/[place]UST de Phone Number [facility] Department [place] [address] * Magnesium (05/23/2024 8:13 PM TACK CUTTER) [facility] Magnesium 2.0 1.4 - 2.5 mg/dL Blood 05/23/2024 8:13 PM TACK CUTTER 05/23/2024 9:00 PM TACK CUTTER Christiano Ko MD LAB BLOOD ORDERABLES Final Result Performing Organization Address [facility]/[place] de Phone Number [facility] [place] [address] * Basic metabolic panel (05/23/2024 8:13 PM TACK CUTTER) [facility] Sodium 145 135 - 145 mmol/L Potassium, pl 4.2 3.3 - 4.9 mmol/L [facility] Chloride 106 97 - 110 mmol/L [facility] CO2 32 22 - 32 mmol/L [facility] Anion gap 7 2 - 15 mmol/L [facility] BUN 20 6 - 25 mg/dL [facility] Creatinine 0.77 0.60 - 1.10 mg/dL [facility] Glucose 148 70 - 199 mg/dL [facility] Comment: Interpretive Data Fasting glucose >/= 126 [...] 2022. Calcium 8.6 8.5 - 10.3 mg/dL [facility] Blood 05/23/2024 8:13 PM TACK CUTTER 05/23/2024 9:00 PM TACK CUTTER Christiano Ko MD LAB BLOOD ORDERABLES Final Result [facility] Department [place] [address] * Critical Care (05/23/2024 6:40 AM TACK CUTTER) Narrative Kelvin Delgado MD - 05/23/2024 6:40 AM TACK CUTTER Kelvin Delgado MD 05/23/2024 5:18 PM Critical [...] plan with the patient's team and other medical/financial analysis consultant staff. This time was in addition to and separate from care provided by other practitioners on this day of service. I spent time reviewing and interpreting data from bedside monitors, laboratory results, and imaging and I spent time documenting in the medical record us Olga Meehan ENTERPRISE APPLICATION ANALYST IN CLINIC/BEDSIDE O RDERABLES Final Result * POCT glucose (05/22/2024 11:10 PM TACK CUTTER) Glucose, POC 98 70 - 199 mg/dL Blood 05/22/2024 11:1 0 PM TACK CUTTER 05/22/2024 11:10 PM TACK CUTTER Christiano Ko MD LAB POCT ORDERABLES - DEVIC E Final Result [facility] [place] [place] [address] * eGFR (05/22/2024 8:23 PM TACK CUTTER) eGFR 71 >=60 mL/min/1. 73 m2 Comment: [...] last reviewed 2021. Blood 05/22/2024 8:23 PM TACK CUTTER 05/22/2024 8:36 PM TACK CUTTER Christiano Ko MD LAB BLOOD ORDERABLES Final Result [place] [facility] [place] [address] * (ABNORMAL) CBC without differential (05/22/2024 8:23 PM TACK CUTTER) [facility] WBC 7.0 3.8 - 9.9 K/cumm Hgb 8.9(L) 11.9 - 15.5 g/dL [facility] Hct 29.2(L) 35.6 - 45.5 % [facility] Plt 158 150 - 400 K/cumm [facility] MPV 11.0 9.1 - 12.3 fL [facility] RBC 3.03(L) 3.90 - 5.20 M/cumm [facility] MCV 96.4 81.3 - 96.4 fL [facility] MCH 29.4 27.1 - 33.3 pg [facility] MCHC 30.5(L) 32.3 - 35.7 g/dL [facility] RDW CV 14.8 11.1 - 14.9 % [facility] RDW SD 52.5(H) 35.7 - 48.1 fL [facility] NRBC abs 0.00 0.00 - 0.01 K/cumm [facility] Blood 05/22/2024 8:23 PM TACK CUTTER 05/22/2024 8:36 PM TACK CUTTER us Christiano Ko MD LAB BLOOD ORDERABLES Final Result Performing Organization Address City/[facility]/ZIP Co de Phone Number [facility] [employer] [address] [place] [address] * Phosphorus (05/22/2024 8:23 PM TACK CUTTER) [facility] Phosphorus, pl 3.0 2.3 - 4.5 mg/dL Blood 05/22/2024 8:23 PM TACK CUTTER 05/22/2024 8:36 PM TACK CUTTER Christiano Ko MD LAB BLOOD ORDERABLES Final Result [facility] [place] [address] * Magnesium (05/22/2024 8:23 PM TACK CUTTER) Pathologist [facility] Magnesium 2.2 1.4 - 2.5 mg/dL Blood 05/22/2024 8:23 PM TACK CUTTER 05/22/2024 8:36 PM TACK CUTTER Christiano Ko MD LAB BLOOD ORDERABLES Final Result [facility] Department [place] [address] * (ABNORMAL) Basic metabolic panel (05/22/2024 8:23 PM TACK CUTTER) Pathologist [facility] Sodium 146(H) 135 - 145 mmol/L Potassium, pl 4.1 3.3 - 4.9 mmol/L [facility] Chloride 106 97 - 110 mmol/L [facility] CO2 33(H) 22 - 32 mmol/L [facility] Anion gap 7 2 - 15 mmol/L [facility] BUN 26(H) 6 - 25 mg/dL [facility] Creatinine 0.85 0.60 - 1.10 mg/dL [facility] Glucose 122 70 - 199 mg/dL [facility] Comment: Interpretive Data Fasting glucose >/= 126 [...] 2022. Calcium 8.2(L) 8.5 - 10.3 mg/dL [facility] Blood 05/22/2024 8:23 PM TACK CUTTER 05/22/2024 8:36 PM TACK CUTTER Christiano Ko MD LAB BLOOD ORDERABLES Final Result [facility] [facility] [place] [address] * Critical Care (05/22/2024 7:32 PM TACK CUTTER) Narrative Murtaza Garcia MD - 05/22/2024 7:32 PM TACK CUTTER Murtaza Garcia MD 05/23/2024 6:19 AM Critical [...] plan with the patient's team and other medical/financial analysis consultant staff. This time was in addition to and separate from care provided by other practitioners on this day of service. Preston HINOJOSA IN CLINIC/BEDSI DE ORDERABLES Final Result * POCT glucose (05/22/2024 6:58 PM TACK CUTTER) Glucose, POC 115 70 - 199 mg/dL Blood 05/22/2024 6:58 PM TACK CUTTER 05/22/2024 6:58 PM TACK CUTTER Christiano Ko MD LAB POCT ORDERABLES - DEVIC E Final Result [facility] Department [place] [address] * (ABNORMAL) Iron profile w/ IBC (05/22/2024 3:44 PM TACK CUTTER) Iron 29(L) 35 - 145 mcg/dL TIBC 258 250 - 400 mcg/dL [facility] Transferrin saturation 11(L) 20 - 50 % [facility] Blood 05/22/2024 3:44 PM TACK CUTTER 05/22/2024 4:15 PM TACK CUTTER Earnestine Kelly MD LAB BLOOD ORDERABLES Kylie l Result Performing Organization Address [facility]/[place] de Phone Number [facility] [place] [address] * POCT glucose (05/22/2024 3:03 PM TACK CUTTER) Glucose, POC 111 70 - 199 mg/dL Blood 05/22/2024 3:03 PM TACK CUTTER 05/22/2024 3:03 PM TACK CUTTER Christiano Ko MD LAB POCT ORDERABLES - DEVIC E Final Result Performing Organization Address [facility] Phone Number [facility] Department [place] [address] * POCT glucose (05/22/2024 10:55 AM TACK CUTTER) Glucose, POC 130 70 - 199 mg/dL Blood 05/22/2024 10:5 5 AM TACK CUTTER 05/22/2024 10:55 AM TACK CUTTER Christiano Ko MD LAB POCT ORDERABLES - DEVIC E Final Result Performing Organization Address [facility]/[place] de Phone Number [facility] [place] [address] * POCT glucose (05/22/2024 7:01 AM TACK CUTTER) Glucose, POC 128 70 - 199 mg/dL Blood 05/22/2024 7:01 AM TACK CUTTER 05/22/2024 7:01 AM TACK CUTTER Christiano Ko MD LAB POCT ORDERABLES - DEVIC E Final Result [facility] [facility] [place] [address] * Critical Care (05/22/2024 6:44 AM TACK CUTTER) Narrative Earnestine Kelly MD - 05/22/2024 6:44 AM TACK CUTTER Earnestine Kelly MD 05/22/2024 6:05 PM Critical [...] plan with the ICU team and other medical/financial analysis consultant staff, making frequent assessments and decisions [...] (ABNORMAL) Blood gas, arterial (05/22/2024 4:31 AM TACK CUTTER) pH, Art 7.44 7.35 - 7.45 PCO2, Arterial 49(H) 35 - 45 mmHg [facility] PO2, Arterial 136(H) 83 - 108 mmHg [facility] HCO3 Art (Calculated) 34(H) 20 - 30 mmol/L [facility] BE, art 8 mmol/L [facility] Comment: Interpretive Data No Reference Range Established Current Interpretive Data was last revised on 2017 O2 Sat Art (Measured) 100(H) 90 - 95 % [facility] Blood 05/22/2024 4:31 AM TACK CUTTER 05/22/2024 4:37 AM TACK CUTTER Lynsey Otoole NP LAB BLOOD ORDER TEDDY Final Result Performing Organization Address [facility]/[place] de Phone Number [facility] [employer] [address] [place] [address] * POCT glucose (05/22/2024 3:02 AM TACK CUTTER) Glucose, POC 149 70 - 199 mg/dL Blood 05/22/2024 3:02 AM TACK CUTTER 05/22/2024 3:02 AM TACK CUTTER Christiano Ko MD LAB POCT ORDERABLES - DEVIC E Final Result Performing Organization Address [facility] de Phone Number [facility] [employer] [address] [place] [address] * POCT glucose (05/21/2024 10:54 PM TACK CUTTER) [facility] Glucose, POC 122 70 - 199 mg/dL Blood 05/21/2024 10:5 4 PM TACK CUTTER 05/21/2024 10:54 PM TACK CUTTER Christiano Ko MD LAB POCT ORDERABLES - DEVIC E Final Result Performing Organization Address [facility] de Phone Number [facility] [employer] [address] [place] [address] * eGFR (05/21/2024 8:54 PM TACK CUTTER) eGFR 71 >=60 mL/min/1. 73 m2 Comment: [...] last reviewed 2021. Blood 05/21/2024 8:54 PM TACK CUTTER 05/21/2024 9:16 PM TACK CUTTER us Christiano Ko MD LAB BLOOD ORDERABLES Final Result [facility] [place] [address] * (ABNORMAL) CBC without differential (05/21/2024 8:54 PM TACK CUTTER) WBC 6.7 3.8 - 9.9 K/cumm Hgb 9.5(L) 11.9 - 15.5 g/dL [facility] Hct 29.7(L) 35.6 - 45.5 % [facility] Plt 145(L) 150 - 400 K/cumm [facility] MPV 10.9 9.1 - 12.3 fL [facility] RBC 3.14(L) 3.90 - 5.20 M/cumm [facility] MCV 94.6 81.3 - 96.4 fL [facility] MCH 30.3 27.1 - 33.3 pg [facility] MCHC 32.0(L) 32.3 - 35.7 g/dL [facility] RDW CV 14.8 11.1 - 14.9 % [facility] RDW SD 51.6(H) 35.7 - 48.1 fL [facility] NRBC abs 0.00 0.00 - 0.01 K/cumm [facility] Blood 05/21/2024 8:54 PM TACK CUTTER 05/21/2024 9:16 PM TACK CUTTER Christiano Ko MD LAB BLOOD ORDERABLES Final Result Performing Organization Address [facility] Co de Phone Number [facility] [place] [address] * Phosphorus (05/21/2024 8:54 PM TACK CUTTER) Pathologist [facility] Phosphorus, pl 2.5 2.3 - 4.5 mg/dL Blood 05/21/2024 8:54 PM TACK CUTTER 05/21/2024 9:16 PM TACK CUTTER Christiano Ko MD LAB BLOOD ORDERABLES Final Result Performing Organization Address [facility]/[place] de Phone Number [facility] [place] [address] * Magnesium (05/21/2024 8:54 PM TACK CUTTER) [facility] Magnesium 1.9 1.4 - 2.5 mg/dL Blood 05/21/2024 8:54 PM TACK CUTTER 05/21/2024 9:16 PM TACK CUTTER Christiano Ko MD LAB BLOOD ORDERABLES Final Result Performing Organization Address [facility]/[place] [address] * (ABNORMAL) Blood gas, arterial (05/21/2024 8:54 PM TACK CUTTER) pH, Art 7.45 7.35 - 7.45 PCO2, Arterial 52(H) 35 - 45 mmHg [facility] PO2, Arterial 63(L) 83 - 108 mmHg [facility] HCO3 Art (Calculated) 37(H) 20 - 30 mmol/L [facility] BE, art 10 mmol/L [facility] Comment: Interpretive Data No Reference Range Established Current Interpretive Data was last revised on 2017 O2 Sat Art (Measured) 92 90 - 95 % [facility] Blood 05/21/2024 8:54 PM TACK CUTTER 05/21/2024 9:09 PM TACK CUTTER Christiano Ko MD LAB BLOOD ORDERABLES Final Result Performing Organization Address City/[facility]/ZIP Co de Phone Number [facility] [place] [address] * (ABNORMAL) Basic metabolic panel (05/21/2024 8:54 PM TACK CUTTER) Sodium 143 135 - 145 mmol/L Potassium, pl 3.5 3.3 - 4.9 mmol/L [facility] Chloride 101 97 - 110 mmol/L [facility] CO2 35(H) 22 - 32 mmol/L [facility] Anion gap 7 2 - 15 mmol/L [facility] BUN 19 6 - 25 mg/dL [facility] Creatinine 0.85 0.60 - 1.10 mg/dL [facility] Glucose 125 70 - 199 mg/dL [facility] Comment: Interpretive Data Fasting glucose >/= 126 [...] 2022. Calcium 8.7 8.5 - 10.3 mg/dL [facility] Blood 05/21/2024 8:54 PM TACK CUTTER 05/21/2024 9:16 PM TACK CUTTER Christiano Ko MD LAB BLOOD ORDERABLES Final Result Performing Organization Address [facility] Co de Phone Number [facility] Department [place] [address] * XR Chest 1 View (05/21/2024 8:36 PM TACK CUTTER) Anatomical Region Laterality Modality Body, Chest N/A Computed Radiogr aphy 05/22/2024 9:45 AM TACK CUTTER Impressions 05/22/2024 10:11 AM TACK CUTTER Comparison is made to radiograph dated 05/20/2024. [...] David Hogan M.D. Narrative 05/22/2024 10:11 AM TACK CUTTER EXAMINATION: 1 view chest radiograph Procedure Note [...] Result * Critical Care (05/21/2024 8:00 PM TACK CUTTER) Narrative Renay Weber MD - 05/21/2024 8:00 PM TACK CUTTER Renay Weber MD 05/28/2024 11:57 PM Critical [...] plan with the ICU team and other medical/financial analysis consultant staff, making frequent assessments and decisions [...] in the medical record us Lynsey Otoole ENTERPRISE APPLICATION ANALYST IN CLINIC/BEDSI DE ORDERABLES Final Result * POCT glucose (05/21/2024 7:43 PM TACK CUTTER) Glucose, POC 150 70 - 199 mg/dL Blood 05/21/2024 7:43 PM TACK CUTTER 05/21/2024 7:43 PM TACK CUTTER us Christiano Ko MD LAB POCT ORDERABLES - DEVIC E Final Result [facility] Department [place] [address] * (ABNORMAL) Blood gas, arterial (05/21/2024 3:11 PM TACK CUTTER) pH, Art 7.44 7.35 - 7.45 PCO2, Arterial 50(H) 35 - 45 mmHg [facility] PO2, Arterial 157(H) 83 - 108 mmHg [facility] HCO3 Art (Calculated) 35(H) 20 - 30 mmol/L [facility] BE, art 8 mmol/L [facility] Comment: Interpretive Data No Reference Range Established Current Interpretive Data was last revised on 2017 O2 Sat Art (Measured) 100(H) 90 - 95 % [facility] Blood 05/21/2024 3:11 PM TACK CUTTER 05/21/2024 3:16 PM TACK CUTTER Sebastian HINOJOSA LAB BLOOD ORDERABLES Fi nal Result Performing Organization Address [facility] Co de Phone Number [facility] [place] [address] * POCT glucose (05/21/2024 3:10 PM TACK CUTTER) Glucose, POC 135 70 - 199 mg/dL Blood 05/21/2024 3:10 PM TACK CUTTER 05/21/2024 3:10 PM TACK CUTTER Christiano Ko MD LAB POCT ORDERABLES - DEVIC E Final Result Performing Organization Address [facility] Co de Phone Number [facility] Department [place] [address] * POCT glucose (05/21/2024 11:14 AM TACK CUTTER) Glucose, POC 122 70 - 199 mg/dL Blood 05/21/2024 11:1 4 AM TACK CUTTER 05/21/2024 11:14 AM TACK CUTTER Christiano Ko MD LAB POCT ORDERABLES - DEVIC E Final Result Performing Organization Address [facility] Co de Phone Number [facility] [place] [address] * (ABNORMAL) Thyroid Function Jeff Davis (05/21/2024 9:07 AM TACK CUTTER) TSH 5.20(H) 0.30 - 4.20 mcIUnit/mL Blood 05/21/2024 9:07 AM TACK CUTTER 05/21/2024 9:28 AM TACK CUTTER Sebastian HINOJOSA LAB BLOOD ORDERABLES Fi nal Result Performing Organization Address [facility]/ZIP Co de Phone Number [facility] [place] [address] * Triglycerides (05/21/2024 9:07 AM TACK CUTTER) Triglycerides 139 <=149 mg/dL Comment: Interpretive Data [...] revised on 2017. Blood 05/21/2024 9:07 AM TACK CUTTER 05/21/2024 9:28 AM TACK CUTTER Narrative [facility] - 05/21/2024 9:56 AM TACK CUTTER While on propofol infusion. Preston HINOJOSA LAB BLOOD ORDER TEDDY Final Result Performing Organization Address City/[facility]/ZIP Co de Phone Number [facility] [place] [address] * T4, free (05/21/2024 9:07 AM TACK CUTTER) Free T4 1.35 0.90 - 1.70 ng/dL Blood 05/21/2024 9:07 AM TACK CUTTER 05/21/2024 9:28 AM TACK CUTTER N[facility]ative [facility] - 05/21/2024 10:34 AM TACK CUTTER This test was reflexed from a TSH result. Sebastian HINOJOSA LAB BLOOD ORDERABLES Ed ited Result - Final Performing Organization Address [facility] Co de Phone Number [facility] Department [place] [address] * Ammonia (05/21/2024 9:07 AM TACK CUTTER) Ammonia 27 <=50 mcmol/L Blood 05/21/2024 9:07 AM TACK CUTTER 05/21/2024 9:29 AM TACK CUTTER us Sebastian HINOJOSA LAB BLOOD ORDERABLES Fi nal Result Performing Organization Address [facility] Co de Phone Number [facility] Department of [employer] [address] [place] [address] * POCT glucose (05/21/2024 7:24 AM TACK CUTTER) Glucose, POC 138 70 - 199 mg/dL Blood 05/21/2024 7:24 AM TACK CUTTER 05/21/2024 7:24 AM TACK CUTTER Christiano Ko MD LAB POCT ORDERABLES - DEVIC E Final Result Performing Organization Address [facility] Co de Phone Number [facility] [employer] [address] [place] [address] * Critical Care (05/21/2024 7:02 AM TACK CUTTER) Narrative Earnestine Kelly MD - 05/21/2024 7:02 AM TACK CUTTER Earnestine Kelly MD 05/22/2024 3:03 PM Critical [...] plan with the ICU team and other medical/financial analysis consultant staff, making frequent assessments and decisions [...] Result * POCT glucose (05/21/2024 3:47 AM TACK CUTTER) Glucose, POC 161 70 - 199 mg/dL Blood 05/21/2024 3:47 AM TACK CUTTER 05/21/2024 3:47 AM TACK CUTTER us Christiano Ko MD LAB POCT ORDERABLES - DEVIC E Final Result [facility] Department [place] [address] * XR Chest 1 View (05/21/2024 12:12 AM TACK CUTTER) Anatomical Region Laterality Modality Body, Chest N/A Computed Radiogr aphy 05/21/2024 8:02 AM TACK CUTTER Impressions 05/21/2024 8:02 AM TACK CUTTER Comparison is made to radiograph of 05/20/2024 [...] Nestor Seth M.D. Narrative 05/21/2024 8:02 AM TACK CUTTER EXAMINATION: 1 view chest radiograph Procedure Note [...] Result * POCT glucose (05/20/2024 11:29 PM TACK CUTTER) Glucose, POC 140 70 - 199 mg/dL Blood 05/20/2024 11:2 9 PM TACK CUTTER 05/20/2024 11:29 PM TACK CUTTER Christiano Ko MD LAB POCT ORDERABLES - DEVIC E Final Result [facility] Department [place] [address] * XR Abdomen 1 View AP (05/20/2024 8:05 PM TACK CUTTER) Anatomical Region Laterality Modality Body, Abdomen N/A Computed Radiogr aphy 05/21/2024 8:36 AM TACK CUTTER Impressions 05/21/2024 8:36 AM TACK CUTTER An enteric tube tip terminates in the distal gastric body, with the stylette in place. Relative paucity of bowel gas in the imaged upper abdomen. Dictated by: Kvng Pan MD The radiology attending physician has personally reviewed this study, and had reviewed and/or edited this written report and agrees with it. Electronically signed by: Renetta Farr M.D. Narrative 05/21/2024 8:36 AM TACK CUTTER EXAMINATION: Abdomen, one view. HISTORY: Check tube [...] inal Result * eGFR (05/20/2024 7:44 PM TACK CUTTER) eGFR 75 >=60 mL/min/1. 73 m2 Comment: [...] last reviewed 2021. Blood 05/20/2024 7:44 PM TACK CUTTER 05/20/2024 8:03 PM TACK CUTTER Christiano Ko MD LAB BLOOD ORDERABLES Final Result [facility] Department of [employer] [address] [place] [address] * (ABNORMAL) CBC without differential (05/20/2024 7:44 PM TACK CUTTER) WBC 7.1 3.8 - 9.9 K/cumm Hgb 9.9(L) 11.9 - 15.5 g/dL [facility] Hct 31.5(L) 35.6 - 45.5 % [facility] Plt 157 150 - 400 K/cumm [facility] MPV 10.6 9.1 - 12.3 fL [facility] RBC 3.40(L) 3.90 - 5.20 M/cumm [facility] MCV 92.6 81.3 - 96.4 fL [facility] MCH 29.1 27.1 - 33.3 pg [facility] MCHC 31.4(L) 32.3 - 35.7 g/dL [facility] RDW CV 14.7 11.1 - 14.9 % [facility] RDW SD 50.2(H) 35.7 - 48.1 fL [facility] NRBC abs 0.00 0.00 - 0.01 K/cumm [facility] Blood 05/20/2024 7:44 PM TACK CUTTER 05/20/2024 7:56 PM TACK CUTTER us Christiano Ko MD LAB BLOOD ORDERABLES Final Result Performing Organization Address City/[facility]/ZIP Co de Phone Number [facility] Department [place] [address] * Phosphorus (05/20/2024 7:44 PM TACK CUTTER) [facility] Phosphorus, pl 3.9 2.3 - 4.5 mg/dL Blood 05/20/2024 7:44 PM TACK CUTTER 05/20/2024 7:56 PM TACK CUTTER Christiano Ko MD LAB BLOOD ORDERABLES Final Result Performing Organization Address City/[facility] Co de Phone Number [facility] [place] [address] * Magnesium (05/20/2024 7:44 PM TACK CUTTER) [facility] Magnesium 2.3 1.4 - 2.5 mg/dL Blood 05/20/2024 7:44 PM TACK CUTTER 05/20/2024 7:56 PM TACK CUTTER Christiano Ko MD LAB BLOOD ORDERABLES Final Result Performing Organization Address [facility]/[place] de Phone Number [facility] [place] [address] * (ABNORMAL) Basic metabolic panel (05/20/2024 7:44 PM TACK CUTTER) [facility] Sodium 142 135 - 145 mmol/L Potassium, pl 4.0 3.3 - 4.9 mmol/L [facility] Chloride 98 97 - 110 mmol/L [facility] CO2 36(H) 22 - 32 mmol/L [facility] Anion gap 8 2 - 15 mmol/L [facility] BUN 18 6 - 25 mg/dL [facility] Creatinine 0.81 0.60 - 1.10 mg/dL [facility] Glucose 139 70 - 199 mg/dL [facility] Comment: Interpretive Data Fasting glucose >/= 126 [...] 2022. Calcium 8.7 8.5 - 10.3 mg/dL [facility] Blood 05/20/2024 7:44 PM TACK CUTTER 05/20/2024 7:56 PM TACK CUTTER us Christiano Ko MD LAB BLOOD ORDERABLES Final Result Performing Organization Address City/[facility]/ZIP Co de Phone Number [facility] Department [place] [address] * POCT glucose (05/20/2024 7:36 PM TACK CUTTER) [facility] Signature Glucose, POC 149 70 - 199 mg/dL Blood 05/20/2024 7:36 PM TACK CUTTER 05/20/2024 7:36 PM TACK CUTTER us Christiano Ko MD LAB POCT ORDERABLES - DEVIC E Final Result Performing Organization Address City/[facility] Co de Phone Number [facility] Department [place] [address] * Critical Care (05/20/2024 6:22 PM TACK CUTTER) Narrative Renay Weber MD - 05/20/2024 6:22 PM TACK CUTTER Renay Weber MD 05/28/2024 11:45 PM Critical [...] plan with the ICU team and other medical/financial analysis consultant staff, making frequent assessments and decisions [...] Result * POCT glucose (05/20/2024 3:33 PM TACK CUTTER) Glucose, POC 156 70 - 199 mg/dL Blood 05/20/2024 3:33 PM TACK CUTTER 05/20/2024 3:33 PM TACK CUTTER us Christiano Ko MD LAB POCT ORDERABLES - DEVIC E Final Result Performing Organization Address City/[facility]/ZIP Co de Phone Number [facility] Department of [employer] [address] [place] [address] * POCT glucose (05/20/2024 11:36 AM TACK CUTTER) Glucose, POC 166 70 - 199 mg/dL Blood 05/20/2024 11:3 6 AM TACK CUTTER 05/20/2024 11:36 AM TACK CUTTER Christiano Ko MD LAB POCT ORDERABLES - DEVIC E Final Result [facility] [employer] [address] [place] [address] * POCT glucose (05/20/2024 7:28 AM TACK CUTTER) Glucose, POC 167 70 - 199 mg/dL Blood 05/20/2024 7:28 AM TACK CUTTER 05/20/2024 7:28 AM TACK CUTTER us Christiano Ko MD LAB POCT ORDERABLES - DEVIC E Final Result [facility] [place] [address] * Critical Care (05/20/2024 7:27 AM TACK CUTTER) Narrative Earnestine Kelly MD - 05/20/2024 7:27 AM TACK CUTTER Earnestine Kelly MD 05/22/2024 3:02 PM Critical [...] plan with the ICU team and other medical/financial analysis consultant staff, making frequent assessments and decisions [...] XR Chest 1 View (05/20/2024 6:25 AM TACK CUTTER) Anatomical Region Laterality Modality Body, Chest N/A Computed Radiogr aphy 05/20/2024 9:29 AM TACK CUTTER Impressions 05/20/2024 9:29 AM TACK CUTTER The current study is compared with the prior radiograph dated 05/19/2024. The endotracheal tube tip is 1.5 cm above the janis. Stable small left pleural effusion with underlying left lower lobe collapse. Small right pleural effusion with mild atelectasis is unchanged. Stable mild pulmonary edema. No pneumothorax. Stable cardiomegaly. Electronically signed by: Matt Willis MD, PHD Narrative 05/20/2024 9:29 AM TACK CUTTER EXAMINATION: 1 view chest radiograph Procedure Note [...] Result * POCT glucose (05/20/2024 3:47 AM TACK CUTTER) [facility] Glucose, POC 157 70 - 199 mg/dL Blood 05/20/2024 3:47 AM TACK CUTTER 05/20/2024 3:47 AM TACK CUTTER Christiano Ko MD LAB POCT ORDERABLES - DEVIC E Final Result [facility] Department [place] [address] * (ABNORMAL) Blood gas, arterial (05/20/2024 3:01 AM TACK CUTTER) [facility] pH, Art 7.48(H) 7.35 - 7.45 PCO2, Arterial 48(H) 35 - 45 mmHg [facility] PO2, Arterial 100 83 - 108 mmHg [facility] HCO3 Art (Calculated) 37(H) 20 - 30 mmol/L [facility] BE, art 11 mmol/L [facility] Comment: Interpretive Data No Reference Range Established Current Interpretive Data was last revised on 2017 O2 Sat Art (Measured) 98(H) 90 - 95 % [facility] Blood 05/20/2024 3:01 AM TACK CUTTER 05/20/2024 3:12 AM TACK CUTTER us Yesenia HINOJOSA LAB BLOOD ORDERABLE S Final Result Performing Organization Address City/[facility] Co de Phone Number [facility] Department [place] [address] * POCT glucose (05/19/2024 11:34 PM TACK CUTTER) Glucose, POC 152 70 - 199 mg/dL Blood 05/19/2024 11:3 4 PM TACK CUTTER 05/19/2024 11:34 PM TACK CUTTER us Christiano Ko MD LAB POCT ORDERABLES - DEVIC E Final Result Performing Organization Address [facility]/[place] de Phone Number [facility] Department [place] [address] * eGFR (05/19/2024 9:35 PM TACK CUTTER) eGFR 79 >=60 mL/min/1. 73 m2 Comment: [...] last reviewed 2021. Blood 05/19/2024 9:35 PM TACK CUTTER 05/19/2024 9:49 PM TACK CUTTER Christiano Ko MD LAB BLOOD ORDERABLES Final Result Performing Organization Address [facility] Co de Phone Number [facility] of [employer] [address] [place] [address] * (ABNORMAL) CBC without differential (05/19/2024 9:35 PM TACK CUTTER) WBC 5.7 3.8 - 9.9 K/cumm Hgb 9.4(L) 11.9 - 15.5 g/dL [facility] Hct 30.1(L) 35.6 - 45.5 % [facility] Plt 146(L) 150 - 400 K/cumm [facility] MPV 10.2 9.1 - 12.3 fL [facility] RBC 3.21(L) 3.90 - 5.20 M/cumm [facility] MCV 93.8 81.3 - 96.4 fL [facility] Comment:MCV delta due to tasha gical procedure. MCH 29.3 27.1 - 33.3 pg [facility] MCHC 31.2(L) 32.3 - 35.7 g/dL [facility] RDW CV 14.5 11.1 - 14.9 % [facility] RDW SD 49.4(H) 35.7 - 48.1 fL [facility] NRBC abs 0.00 0.00 - 0.01 K/cumm [facility] Blood 05/19/2024 9:35 PM TACK CUTTER 05/19/2024 9:50 PM TACK CUTTER Christiano Ko MD LAB BLOOD ORDERABLES Final Result Performing Organization Address [facility]/ZIP Co de Phone Number [facility] of [employer] [address] [place] [address] * Phosphorus (05/19/2024 9:35 PM TACK CUTTER) Pathologist [facility] Phosphorus, pl 3.4 2.3 - 4.5 mg/dL Blood 05/19/2024 9:35 PM TACK CUTTER 05/19/2024 9:47 PM TACK CUTTER Christiano Ko MD LAB BLOOD ORDERABLES Final Result Performing Organization Address City/[facility]/ZIP Co de Phone Number [facility] Department [place] [address] * Magnesium (05/19/2024 9:35 PM TACK CUTTER) [facility] Magnesium 2.2 1.4 - 2.5 mg/dL Blood 05/19/2024 9:35 PM TACK CUTTER 05/19/2024 9:47 PM TACK CUTTER Christiano Ko MD LAB BLOOD ORDERABLES Final Result Performing Organization Address [facility]/[place] de Phone Number [facility] Department [place] [address] * (ABNORMAL) Blood gas, arterial (05/19/2024 9:35 PM TACK CUTTER) [facility] pH, Art 7.48(H) 7.35 - 7.45 PCO2, Arterial 50(H) 35 - 45 mmHg [facility] PO2, Arterial 64(L) 83 - 108 mmHg [facility] HCO3 Art (Calculated) 38(H) 20 - 30 mmol/L [facility] BE, art 12 mmol/L [facility] Comment: Interpretive Data No Reference Range Established Current Interpretive Data was last revised on 2017 O2 Sat Art (Measured) 94 90 - 95 % [facility] Blood 05/19/2024 9:35 PM TACK CUTTER 05/19/2024 9:45 PM TACK CUTTER Preston HINOJOSA LAB BLOOD ORDER TEDDY Final Result [facility] [place] [address] * (ABNORMAL) Basic metabolic panel (05/19/2024 9:35 PM TACK CUTTER) Sodium 144 135 - 145 mmol/L Potassium, pl 4.2 3.3 - 4.9 mmol/L [facility] Chloride 99 97 - 110 mmol/L [facility] CO2 38(H) 22 - 32 mmol/L [facility] Anion gap 7 2 - 15 mmol/L [facility] BUN 15 6 - 25 mg/dL [facility] Creatinine 0.78 0.60 - 1.10 mg/dL [facility] Glucose 143 70 - 199 mg/dL [facility] Comment: Interpretive Data Fasting glucose >/= 126 [...] 2022. Calcium 8.9 8.5 - 10.3 mg/dL [facility] Blood 05/19/2024 9:35 PM TACK CUTTER 05/19/2024 9:47 PM TACK CUTTER Christiano Ko MD LAB BLOOD ORDERABLES Final Result Performing Organization Address [facility]/ZIP Co de Phone Number [facility] [place] [address] * Critical Care (05/19/2024 8:59 PM TACK CUTTER) Narrative Renay Weber MD - 05/19/2024 8:59 PM TACK CUTTER Renay Weber MD 05/28/2024 11:45 PM Critical Care Performed by: eYsenia Mora PA Authorized by: Yesenia Mora PA [...] plan with the ICU team and other medical/financial analysis consultant staff, making frequent assessments and decisions [...] spent time documenting in the medical record Yesenia HINOJOSA IN CLINIC/BEDSIDE O RDERABLES Final Result * POCT glucose (05/19/2024 7:36 PM TACK CUTTER) Glucose, POC 153 70 - 199 mg/dL Blood 05/19/2024 7:36 PM TACK CUTTER 05/19/2024 7:36 PM TACK CUTTER Christiano Ko MD LAB POCT ORDERABLES - DEVIC E Final Result [facility] [place] [address] * POCT glucose (05/19/2024 3:43 PM TACK CUTTER) Glucose, POC 140 70 - 199 mg/dL Blood 05/19/2024 3:43 PM TACK CUTTER 05/19/2024 3:43 PM TACK CUTTER Christiano Ko MD LAB POCT ORDERABLES - DEVIC E Final Result [facility] Department [place] [address] * XR Chest 1 View (05/19/2024 2:08 PM TACK CUTTER) Anatomical Region Laterality Modality Body, Chest N/A Computed Radiogr aphy 05/19/2024 2:31 PM TACK CUTTER Impressions 05/19/2024 3:25 PM TACK CUTTER Comparison is made to radiograph dated 05/19/2024. [...] Rajiv Redman M.D. Narrative 05/19/2024 3:25 PM TACK CUTTER EXAMINATION: 1 view chest radiograph Procedure Note [...] Result * POCT glucose (05/19/2024 12:49 PM TACK CUTTER) Glucose, POC 140 70 - 199 mg/dL Blood 05/19/2024 12:4 9 PM TACK CUTTER 05/19/2024 12:49 PM TACK CUTTER us Christiano Ko MD LAB POCT ORDERABLES - DEVIC E Final Result Performing Organization Address [facility]/ZIP Co de Phone Number [facility] Department [place] [address] * eGFR (05/19/2024 12:45 PM TACK CUTTER) eGFR 85 >=60 mL/min/1. 73 m2 Comment: [...] reviewed 2021. Blood 05/19/2024 12:4 5 PM TACK CUTTER 05/19/2024 12:54 PM TACK CUTTER us Preston HINOJOSA LAB BLOOD ORDER TEDDY Final Result Performing Organization Address City/[facility]/ZIP Co de Phone Number [facility] Department [place] [address] * (ABNORMAL) CBC without differential (05/19/2024 12:45 PM TACK CUTTER) Pathologist [facility] WBC 7.1 3.8 - 9.9 K/cumm Hgb 8.9(L) 11.9 - 15.5 g/dL [facility] Hct 29.2(L) 35.6 - 45.5 % [facility] Plt 136(L) 150 - 400 K/cumm [facility] MPV 10.3 9.1 - 12.3 fL [facility] RBC 2.94(L) 3.90 - 5.20 M/cumm [facility] MCV 99.3(H) 81.3 - 96.4 fL [facility] MCH 30.3 27.1 - 33.3 pg [facility] MCHC 30.5(L) 32.3 - 35.7 g/dL [facility] RDW CV 14.5 11.1 - 14.9 % [facility] RDW SD 51.8(H) 35.7 - 48.1 fL [facility] NRBC abs 0.00 0.00 - 0.01 K/cumm [facility] Blood 05/19/2024 12:4 5 PM TACK CUTTER 05/19/2024 12:54 PM TACK CUTTER Preston HINOJOSA LAB BLOOD ORDER TEDDY Final Result Performing Organization Address City/[facility] Co de Phone Number [facility] Department of [employer] [address] [place] [address] * Phosphorus (05/19/2024 12:45 PM TACK CUTTER) Pathologist [facility] Phosphorus, pl 2.4 2.3 - 4.5 mg/dL Blood 05/19/2024 12:4 5 PM TACK CUTTER 05/19/2024 12:54 PM TACK CUTTER Preston HINOJOSA LAB BLOOD ORDER TEDDY Final Result Performing Organization Address City/[facility]/ZIP Co de Phone Number [facility] Department [place] [address] * Magnesium (05/19/2024 12:45 PM TACK CUTTER) [facility] Magnesium 2.2 1.4 - 2.5 mg/dL Blood 05/19/2024 12:4 5 PM TACK CUTTER 05/19/2024 12:54 PM TACK CUTTER Preston HINOJOSA LAB BLOOD ORDER TEDDY Final Result Performing Organization Address [facility] Co de Phone Number [facility] [place] [address] * (ABNORMAL) Blood gas, arterial (05/19/2024 12:45 PM TACK CUTTER) [facility] pH, Art 7.43 7.35 - 7.45 PCO2, Arterial 52(H) 35 - 45 mmHg [facility] PO2, Arterial 147(H) 83 - 108 mmHg [facility] HCO3 Art (Calculated) 36(H) 20 - 30 mmol/L [facility] BE, art 9 mmol/L [facility] Comment: Interpretive Data No Reference Range Established Current Interpretive Data was last revised on 2017 O2 Sat Art (Measured) 100(H) 90 - 95 % [facility] Blood 05/19/2024 12:4 5 PM TACK CUTTER 05/19/2024 12:50 PM TACK CUTTER Preston HINOJOSA LAB BLOOD ORDER TEDDY Final Result Performing Organization Address [facility] Co de Phone Number [facility] [place] [address] * (ABNORMAL) Basic metabolic panel (05/19/2024 12:45 PM TACK CUTTER) [facility] Sodium 142 135 - 145 mmol/L Potassium, pl 4.2 3.3 - 4.9 mmol/L [facility] Chloride 99 97 - 110 mmol/L [facility] CO2 35(H) 22 - 32 mmol/L [facility] Anion gap 8 2 - 15 mmol/L [facility] BUN 14 6 - 25 mg/dL [facility] Creatinine 0.73 0.60 - 1.10 mg/dL [facility] Glucose 134 70 - 199 mg/dL [facility] Comment: Interpretive Data Fasting glucose >/= 126 [...] 2022. Calcium 8.6 8.5 - 10.3 mg/dL [facility] Blood 05/19/2024 12:4 5 PM TACK CUTTER 05/19/2024 12:54 PM TACK CUTTER us Preston HINOJOSA LAB BLOOD ORDER TEDDY Final Result [facility] Department [place] [address] * [place] Fluoroscopy < 1 Hour (05/19/2024 11:22 AM TACK CUTTER) Narrative [facility] - 05/19/2024 11:23 AM TACK CUTTER The images from this study are not interpreted by Radiology. Please refer to the physician's procedure / OR operative note. us Annemarie Lea MD IMG FLUOROSCOPY PROCEDURES Final Result [email or web address] * (ABNORMAL) POC Blood Gas and Chemistries, Arterial - (05/19/2024 10:38 AM TACK CUTTER) pH, Art POC 7.50(H) 7.35 - 7.45 pCO2, Art POC 51(H) 35 - 45 mmHg [facility] pO2, Art POC 68(L) 83 - 108 mmHg [facility] Na, POC 140 135 - 145 mmol/L [facility] K POC 4.1 3.3 - 4.9 mmol/L [facility] Comment: Interpretive Data Not all point of care methods assess for hemolysis. Confirm with instrument and retest K+ if not consistent with clinical signs and symptoms. Current Interpretive Data was last revised on 2023. Cl, POC 99 97 - 110 mmol/L [facility] Ionized Ca, POC 4.69 4.50 - 5.10 mg/dL [facility] Glucose, POC 141 70 - 199 mg/dL [facility] Lactate, POC 1.0 0.7 - 2.0 mmol/L [facility] SO2 (chiquita) arterial 98(H) 90 - 95 % [facility] Base excess, POC 14.9 mmol/L [facility] Hct, POC 28.0(L) 36.3 - 45.3 % [facility] Total Hb, POC 9.2(L) 11.9 - 15.5 g/dL [facility] Blood 05/19/2024 10:3 8 AM TACK CUTTER 05/19/2024 10:38 AM TACK CUTTER Christiano Ko MD LAB POCT ORDERABLES - DEVIC E Final Result [facility] Department [place] [address] * [place] AN PROCEDURE PLACEHOLDER (05/19/2024 9:51 AM TACK CUTTER) Narrative Flako Parekh CRNA - 05/19/2024 9:51 AM TACK CUTTER Flako Parekh CRNA 05/19/2024 9:52 AM Arterial Line Patient location: OR End time: 05/19/2024 8:30 AM Indication: continuous blood pressure monitoring and blood sampling needed Staff: Supervising provider: Mag Villatoro MD Placed by: EEG TECHNOLOGIST: Flako Parekh CRNA Procedure prep: Prep solution: chlorhexadine/alcohol Prep: provider hat/mask, sterile gloves and sterile drape Skin infiltrated with lidocaine 1%: yes Arterial line: Catheter size: 3 Greek Catheter length: 8 cm Catheter type: wire-guided catheter Seldinger technique: yes Laterality: right Site: radial artery Line secured: tape and Tegaderm Results: good waveform and good blood return Number of attempts: 1 Assessment: Events: patient tolerated procedure well with no complications Additional comments: Vygon kit used. CHG-impregnated dressing in use. Ultrasound-guided placement. us Mag Villatoro MD ANESTHESIA ORDERABLES Final R esult * IA AN ELECTIVE ENDOTRACHEAL AIRWAY, IA AN PROCEDURE PLACEHOLDER (05/19/2024 9:46 AM TACK CUTTER) Narrative Flako Parekh CRNA - 05/19/2024 9:46 AM TACK CUTTER Flako Parekh CRNA 05/19/2024 9:51 AM Airway Patient location: OR Urgency: elective Date/time: 05/19/2024 8:13 AM Indications for airway management: anesthesia Difficult airway: no Staff: Supervising provider: Mag Villatoro MD Placed by: EEG TECHNOLOGIST: Flako Parekh CRNA Emergent airway documentation: Risks [...] and Chemistries, Arterial - (05/19/2024 8:35 AM TACK CUTTER) pH, Art POC 7.41 7.35 - 7.45 pCO2, Art POC 65(H) 35 - 45 mmHg [facility] pO2, Art POC 128(H) 83 - 108 mmHg [facility] Na, POC 141 135 - 145 mmol/L [facility] K POC 4.4 3.3 - 4.9 mmol/L [facility] Comment: Interpretive Data Not all point of care methods assess for hemolysis. Confirm with instrument and retest K+ if not consistent with clinical signs and symptoms. Current Interpretive Data was last revised on 2023. Cl, POC 101 97 - 110 mmol/L [facility] Ionized Ca, POC 4.78 4.50 - 5.10 mg/dL [facility] Glucose, POC 97 70 - 199 mg/dL [facility] Lactate, POC 0.8 0.7 - 2.0 mmol/L [facility] SO2 (chiquita) arterial 100(H) 90 - 95 % [facility] Base excess, POC 14.4 mmol/L [facility] HCO3, Art POC 41(H) 20 - 30 mmol/L [facility] Hct, POC 29.0(L) 36.3 - 45.3 % [facility] Total Hb, POC 9.6(L) 11.9 - 15.5 g/dL [facility] Blood 05/19/2024 8:35 AM TACK CUTTER 05/19/2024 8:35 AM TACK CUTTER us Christiano Ko MD LAB POCT ORDERABLES - DEVIC E Final Result [facility] Department of Laboratories [place], [place] [id number] * POCT glucose (05/19/2024 7:36 AM TACK CUTTER) Glucose, POC 101 70 - 199 mg/dL Blood 05/19/2024 7:36 AM TACK CUTTER 05/19/2024 7:36 AM TACK CUTTER us Christiano Ko MD LAB POCT ORDERABLES - DEVIC E Final Result [facility] [place] [address] * Critical Care (05/19/2024 7:06 AM TACK CUTTER) Narrative Earnestine Kelly MD - 05/19/2024 7:06 AM TACK CUTTER Earnestine Kelly MD 05/22/2024 3:02 PM Critical [...] plan with the ICU team and other medical/financial analysis consultant staff, making frequent assessments and decisions [...] Critical Result Callback Chemistry (05/19/2024 5:18 AM TACK CUTTER) Date Notified [id number] Time Notified 539 [facility] HAMPTON TestName Layla HAMPTON Called/Read Back Funmilayo HAMPTON Credentials RENETTA HAMPTON Called By LAYTON HAMPTON Blood 05/19/2024 5:18 AM TACK CUTTER 05/19/2024 5:25 AM TACK CUTTER Charisse Dunham NP LAB BLOOD ORDER TEDDY Final Result Performing Organization Address City/[facility] Co de Phone Number [facility] Department [place] [address] * Type and screen (05/19/2024 5:18 AM TACK CUTTER) [place], indirect Negative ABO Rh A Positive [facility] Blood 05/19/2024 5:18 AM TACK CUTTER 05/19/2024 5:26 AM TACK CUTTER Narrative [facility] - 05/19/2024 6:12 AM TACK CUTTER Has the patient had Daratumumab or Isatuximab in the past 6 months?->Unknown Result [facility] Mag Villatoro MD LAB BLOOD BANK TEST ORDERABLE S Final Result Performing Organization Address [facility] Co de Phone Number [facility] Department [place] [address] * (ABNORMAL) Blood gas, venous (05/19/2024 5:18 AM TACK CUTTER) pH, Venous 7.30(L) 7.32 - 7.43 PCO2, Venous 79(C) 40 - 50 mmHg [facility] Comment:Reviewed PO2, Venous 41 mmHg [facility] Comment: Interpretive Data No Reference Range Established Current Interpretive Data was last revised on 2017. HCO3 Venous, Calculated 40(H) 20 - 30 mmol/L [facility] BE, venous 10 mmol/L [facility] Comment: Interpretive Data No Reference Range Established Current Interpretive Data was last revised on 2017. Blood 05/19/2024 5:18 AM TACK CUTTER 05/19/2024 5:25 AM TACK CUTTER Result [facility] Charisse Dunham NP LAB BLOOD ORDER TEDDY Final Result Performing Organization Address City/[facility] Co de Phone Number [facility] [place] [address] * Critical Result Callback Chemistry (05/19/2024 3:41 AM TACK CUTTER) Date Notified [id number] Time Notified 401 [facility] TestName pCO2 Art [facility] Called/Read Back Funmilayo FRYE Credentials RN [facility] FRYE Called By MARC [facility]RAY[facility]OR [facility] Blood 05/19/2024 3:41 AM TACK CUTTER 05/19/2024 3:47 AM TACK CUTTER us Charisse Dunham NP LAB BLOOD ORDER ETDDY Final Result Performing Organization Address [facility] [place] [address] * (ABNORMAL) Blood gas, arterial (05/19/2024 3:41 AM TACK CUTTER) pH, Art 7.27(L) 7.35 - 7.45 PCO2, Arterial 83(C) 35 - 45 mmHg [facility] Comment:reviewed PO2, Arterial 157(H) 83 - 108 mmHg [facility] HCO3 Art (Calculated) 40(H) 20 - 30 mmol/L [facility] BE, art 9 mmol/L [facility] Comment: Interpretive Data No Reference Range Established Current Interpretive Data was last revised on 2017 O2 Sat Art (Measured) 99(H) 90 - 95 % [facility] Blood 05/19/2024 3:41 AM TACK CUTTER 05/19/2024 3:47 AM TACK CUTTER Charisse Dunham NP LAB BLOOD ORDER TEDDY Final Result Performing Organization Address City/[facility] Co de Phone Number [facility] [place] [address] * XR Chest 1 View (05/19/2024 3:20 AM TACK CUTTER) Anatomical Region Laterality Modality Body, Chest N/A Computed Radiogr aphy 05/19/2024 9:14 AM TACK CUTTER Impressions 05/19/2024 9:50 AM TACK CUTTER Retrocardiac opacity in keeping with left lower [...] Harish Bangura M.D. Narrative 05/19/2024 9:50 AM TACK CUTTER EXAMINATION: XR CHEST 1 VIEW HISTORY: altered [...] by: Harish Bangura M.D. us Charisse Dunham ENTERPRISE APPLICATION ANALYST IMG XR PROCEDUR ES Final Result * Critical Care (05/19/2024 3:00 AM TACK CUTTER) Narrative Renay Weber MD - 05/19/2024 3:00 AM TACK CUTTER Renay Weber MD 05/20/2024 2:54 AM Critical Care Performed by: HeCharisse Rios NP Authorized by: Charisse Dunham NP CRITICAL [...] plan with the ICU team and other medical/financial analysis consultant staff, making frequent assessments and decisions [...] Result * POCT glucose (05/19/2024 2:38 AM TACK CUTTER) [facility] Signature Glucose, POC 122 70 - 199 mg/dL Blood 05/19/2024 2:38 AM TACK CUTTER 05/19/2024 2:38 AM TACK CUTTER us Christiano Ko MD LAB POCT ORDERABLES - DEVIC E Final Result [facility] Department [place] [address] * CTA/CTP Rapid Stroke (C) (05/19/2024 2:26 AM TACK CUTTER) Anatomical Region Laterality Modality Head and Neck N/A Computed Tomogra phy 05/19/2024 2:49 AM TACK CUTTER Impressions 05/19/2024 8:55 AM TACK CUTTER 1. No CT evidence of stroke. 2. [...] Dianna Johnson M.D. Narrative 05/19/2024 8:55 AM TACK CUTTER EXAMINATION: 1. Computed tomography angiography (CTA) of [...] separate workstation for processing by RAPID software (iSchemaView) to produce automated calculations of the estimated [...] Artery: no occlusion or significant stenosis L MANAGER TRANSFUSION: no occlusion or significant stenosis R MANAGER TRANSFUSION: no occlusion or significant stenosis No cerebral [...] separate workstation for processing by RAPID software (Auterra) to produce automated calculations of the estimated [...] Artery: no occlusion or significant stenosis L MANAGER TRANSFUSION: no occlusion or significant stenosis R MANAGER TRANSFUSION: no occlusion or significant stenosis No cerebral [...] PROCEDURES Final Res ult * (ABNORMAL) POCT [id number]-HCT, WB - ISTAT (05/19/2024 1:27 AM TACK CUTTER) Pathologist [facility] Na POC 140 135 - 145 mmol/L K POC 4.5 3.3 - 4.9 mmol/L [facility] Comment: Interpretive Data This method is not able to assess for hemolysis, which may falsely increase potassium concentrations. If further testing is needed to evaluate this result, consider in-laboratory plasma potassium. Current Interpretive Data was last revised on 2021. Glucose POC i-STAT 123 70 - 199 mg/dL [facility] Hct, POC 31.0(L) 35.6 - 45.5 % [facility] Blood 05/19/2024 1:27 AM TACK CUTTER 05/19/2024 1:27 AM TACK CUTTER Christiano Ko MD LAB POCT ORDERABLES - DEVIC E Final Result [facility] Department [place] [address] * (ABNORMAL) Arterial Blood gas w/Lactate POCT (05/19/2024 1:22 AM TACK CUTTER) Lactate POC i-STAT <0.5(L) 0.7 - 2.0 mmol/L pH POC 7.29(L) 7.35 - 7.[address] [facility] pCO2, Art POC 81(C) 35 - 45 mmHg [facility] PO2 POC 88 80 - 105 mmHg [facility] CO2, total POC 41(H) 20 - 30 mmol/L [facility] HCO3, POC 39(H) 21 - 30 mmol/L [facility] POC 12(H) -2 - 3 mmol/L [facility] O2 sat POC 95 95 - 98 % [facility] Blood 05/19/2024 1:22 AM TACK CUTTER 05/19/2024 1:22 AM TACK CUTTER Christiano Ko MD LAB BLOOD ORDERABLES Final Result Performing Organization Address [facility]/ZIP Co de Phone Number [facility] Department [place] [address] * POCT glucose (05/19/2024 1:15 AM TACK CUTTER) [facility] Glucose, POC 134 70 - 199 mg/dL Blood 05/19/2024 1:15 AM TACK CUTTER 05/19/2024 1:15 AM TACK CUTTER Christiano Ko MD LAB POCT ORDERABLES - DEVIC E Final Result [facility] Department [place] [address] * Potassium, whole blood (05/19/2024 12:55 AM TACK CUTTER) [facility] Potassium, bld 4.6 3.3 - 4.9 mmol/L Blood 05/19/2024 12:5 5 AM TACK CUTTER 05/19/2024 1:10 AM TACK CUTTER Christiano Ko MD LAB BLOOD ORDERABLES Final Result Performing Organization Address [facility] Co de Phone Number [facility] [place] [address] * eGFR (05/19/2024 12:55 AM TACK CUTTER) [facility] eGFR 75 >=60 mL/min/1. 73 m2 Comment: [...] reviewed 2021. Blood 05/19/2024 12:5 5 AM TACK CUTTER 05/19/2024 1:24 AM TACK CUTTER Christiano Ko MD LAB BLOOD ORDERABLES Final Result Performing Organization Address [facility] Co de Phone Number [facility] [place] [address] * (ABNORMAL) CBC without differential (05/19/2024 12:55 AM TACK CUTTER) [facility] WBC 5.7 3.8 - 9.9 K/cumm Hgb 9.1(L) 11.9 - 15.5 g/dL [facility] Hct 30.2(L) 35.6 - 45.5 % [facility] Plt 136(L) 150 - 400 K/cumm [facility] MPV 10.9 9.1 - 12.3 fL [facility] RBC 3.06(L) 3.90 - 5.20 M/cumm [facility] MCV 98.7(H) 81.3 - 96.4 fL [facility] MCH 29.7 27.1 - 33.3 pg [facility] MCHC 30.1(L) 32.3 - 35.7 g/dL [facility] RDW CV 14.5 11.1 - 14.9 % [facility] RDW SD 52.2(H) 35.7 - 48.1 fL [facility] NRBC abs 0.00 0.00 - 0.01 K/cumm [facility] Blood 05/19/2024 12:5 5 AM TACK CUTTER 05/19/2024 1:25 AM TACK CUTTER Christiano Ko MD LAB BLOOD ORDERABLES Final Result Performing Organization Address City/[facility]/ZIP Co de Phone Number [facility] Department [place] [address] * Phosphorus (05/19/2024 12:55 AM TACK CUTTER) Phosphorus, pl 4.1 2.3 - 4.5 mg/dL Blood 05/19/2024 12:5 5 AM TACK CUTTER 05/19/2024 1:24 AM TACK CUTTER Christiano Ko MD LAB BLOOD ORDERABLES Final Result [facility] [place] [address] * Magnesium (05/19/2024 12:55 AM TACK CUTTER) Magnesium 1.8 1.4 - 2.5 mg/dL Blood 05/19/2024 12:5 5 AM TACK CUTTER 05/19/2024 1:24 AM TACK CUTTER Christiano Ko MD LAB BLOOD ORDERABLES Final Result Performing Organization Address City/[facility]/ZIP Co de Phone Number [facility] [place] [address] * (ABNORMAL) Basic metabolic panel (05/19/2024 12:55 AM TACK CUTTER) Sodium 145 135 - 145 mmol/L Potassium, pl 4.8 3.3 - 4.9 mmol/L [facility] Chloride 104 97 - 110 mmol/L [facility] CO2 39(H) 22 - 32 mmol/L [facility] Anion gap 2 2 - 15 mmol/L [facility] BUN 17 6 - 25 mg/dL [facility] Creatinine 0.81 0.60 - 1.10 mg/dL [facility] Glucose 126 70 - 199 mg/dL [facility] Comment: Interpretive Data Fasting glucose >/= 126 [...] 2022. Calcium 8.8 8.5 - 10.3 mg/dL [facility] Blood 05/19/2024 12:5 5 AM TACK CUTTER 05/19/2024 1:24 AM TACK CUTTER Christiano Ko MD LAB BLOOD ORDERABLES Final Result Performing Organization Address [facility] Co de Phone Number [facility] [place] [address] * IA AN ELECTIVE ENDOTRACHEAL AIRWAY, IA AN PROCEDURE PLACEHOLDER (05/18/2024 4:41 PM TACK CUTTER) Narrative Dar Long CRNA - 05/18/2024 4:41 PM TACK CUTTER Dar Long CRNA 05/18/2024 4:45 PM Airway Patient location: OR Urgency: elective Date/time: 05/18/2024 4:05 PM Indications for airway management: anesthesia and airway protection Difficult airway: no Staff: Placed by: Anesthesiologist: Kvng Verma MD EEG TECHNOLOGIST: Dar Long CRNA Emergent airway documentation: Risks [...] IA AN PROCEDURE PLACEHOLDER (05/18/2024 3:47 PM TACK CUTTER) Narrative Kvng Verma MD - 05/18/2024 3:47 PM TACK CUTTER Kvng Verma MD 05/20/2024 9:44 AM Peripheral [...] Final Result * eGFR (05/17/2024 11:56 PM TACK CUTTER) eGFR 73 >=60 mL/min/1. 73 m2 Comment: [...] reviewed 2021. Blood 05/17/2024 11:5 6 PM TACK CUTTER 05/18/2024 12:45 AM TACK CUTTER us Christiano Ko MD LAB BLOOD ORDERABLES Final Result [facility] Department [place] [address] * (ABNORMAL) CBC without differential (05/17/2024 11:56 PM TACK CUTTER) WBC 5.3 3.8 - 9.9 K/cumm Hgb 9.5(L) 11.9 - 15.5 g/dL [facility] Hct 31.7(L) 35.6 - 45.5 % [facility] Plt 147(L) 150 - 400 K/cumm [facility] MPV 11.0 9.1 - 12.3 fL [facility] RBC 3.23(L) 3.90 - 5.20 M/cumm [facility] MCV 98.1(H) 81.3 - 96.4 fL [facility] MCH 29.4 27.1 - 33.3 pg [facility] MCHC 30.0(L) 32.3 - 35.7 g/dL [facility] RDW CV 14.6 11.1 - 14.9 % [facility] RDW SD 52.7(H) 35.7 - 48.1 fL [facility] NRBC abs 0.00 0.00 - 0.01 K/cumm [facility] Blood 05/17/2024 11:5 6 PM TACK CUTTER 05/18/2024 12:45 AM TACK CUTTER us Christiano Ko MD LAB BLOOD ORDERABLES Final Result [facility] Department of [place] [employer] [address] [place] [address] * Phosphorus (05/17/2024 11:56 PM TACK CUTTER) Phosphorus, pl 3.9 2.3 - 4.5 mg/dL Blood 05/17/2024 11:5 6 PM TACK CUTTER 05/18/2024 12:45 AM TACK CUTTER Christiano Ko MD LAB BLOOD ORDERABLES Final Result [facility] Department of [employer] [address] [place] [address] * Magnesium (05/17/2024 11:56 PM TACK CUTTER) Magnesium 1.9 1.4 - 2.5 mg/dL Blood 05/17/2024 11:5 6 PM TACK CUTTER 05/18/2024 12:45 AM TACK CUTTER Christiano Ko MD LAB BLOOD ORDERABLES Final Result [facility] Department [place] [address] * (ABNORMAL) Basic metabolic panel (05/17/2024 11:56 PM TACK CUTTER) Pathologist [facility] Sodium 146(H) 135 - 145 mmol/L Potassium, pl 5.0(H) 3.3 - 4.9 mmol/L [facility] Chloride 102 97 - 110 mmol/L [facility] CO2 37(H) 22 - 32 mmol/L [facility] Anion gap 7 2 - 15 mmol/L [facility] BUN 22 6 - 25 mg/dL [facility] Creatinine 0.83 0.60 - 1.10 mg/dL [facility] Glucose 101 70 - 199 mg/dL [facility] Comment: Interpretive Data Fasting glucose >/= 126 [...] 2022. Calcium 9.3 8.5 - 10.3 mg/dL [facility] Blood 05/17/2024 11:5 6 PM TACK CUTTER 05/18/2024 12:45 AM TACK CUTTER Christiano Ko MD LAB BLOOD ORDERABLES Final Result Performing Organization Address [facility]/ZIP Co de Phone Number [facility] [place] [address] * eGFR (05/16/2024 10:25 PM TACK CUTTER) [facility] eGFR 61 >=60 mL/min/1. 73 m2 Comment: [...] reviewed 2021. Blood 05/16/2024 10:2 5 PM TACK CUTTER 05/16/2024 10:50 PM TACK CUTTER Christiano Ko MD LAB BLOOD ORDERABLES Final Result [facility] [place] [address] * (ABNORMAL) CBC without differential (05/16/2024 10:25 PM TACK CUTTER) [facility] WBC 4.8 3.8 - 9.9 K/cumm Hgb 9.0(L) 11.9 - 15.5 g/dL [facility] Hct 30.0(L) 35.6 - 45.5 % [facility] Plt 134(L) 150 - 400 K/cumm [facility] MPV 10.6 9.1 - 12.3 fL [facility] RBC 3.01(L) 3.90 - 5.20 M/cumm [facility] MCV 99.7(H) 81.3 - 96.4 fL [facility] MCH 29.9 27.1 - 33.3 pg [facility] MCHC 30.0(L) 32.3 - 35.7 g/dL [facility] RDW CV 14.6 11.1 - 14.9 % [facility] RDW SD 53.5(H) 35.7 - 48.1 fL [facility] NRBC abs 0.00 0.00 - 0.01 K/cumm [facility] Blood 05/16/2024 10:2 5 PM TACK CUTTER 05/16/2024 10:50 PM TACK CUTTER Christiano Ko MD LAB BLOOD ORDERABLES Final Result Performing Organization Address City/[facility]/ZIP Co de Phone Number [facility] Department [place] [address] * Phosphorus (05/16/2024 10:25 PM TACK CUTTER) Pathologist [facility] Phosphorus, pl 3.9 2.3 - 4.5 mg/dL Blood 05/16/2024 10:2 5 PM TACK CUTTER 05/16/2024 10:50 PM TACK CUTTER Christiano Ko MD LAB BLOOD ORDERABLES Final Result Performing Organization Address [facility] Co de Phone Number [facility] Department [place] [address] * Magnesium (05/16/2024 10:25 PM TACK CUTTER) Magnesium 1.8 1.4 - 2.5 mg/dL Blood 05/16/2024 10:2 5 PM TACK CUTTER 05/16/2024 10:50 PM TACK CUTTER Christiano Ko MD LAB BLOOD ORDERABLES Final Result Performing Organization Address City/[facility] Co de Phone Number [facility] Department [place] [address] * (ABNORMAL) Basic metabolic panel (05/16/2024 10:25 PM TACK CUTTER) Sodium 146(H) 135 - 145 mmol/L Potassium, pl 4.7 3.3 - 4.9 mmol/L [facility] Chloride 103 97 - 110 mmol/L [facility] CO2 39(H) 22 - 32 mmol/L [facility] Anion gap 4 2 - 15 mmol/L [facility] BUN 23 6 - 25 mg/dL [facility] Creatinine 0.96 0.60 - 1.10 mg/dL [facility] Glucose 98 70 - 199 mg/dL [facility] Comment: Interpretive Data Fasting glucose >/= 126 [...] 2022. Calcium 9.0 8.5 - 10.3 mg/dL [facility] Blood 05/16/2024 10:2 5 PM TACK CUTTER 05/16/2024 10:50 PM TACK CUTTER Christiano Ko MD LAB BLOOD ORDERABLES Final Result [facility] Department [place] [address] * eGFR (05/15/2024 10:17 PM TACK CUTTER) eGFR 65 >=60 mL/min/1. 73 m2 Comment: [...] reviewed 2021. Blood 05/15/2024 10:1 7 PM TACK CUTTER 05/15/2024 10:31 PM TACK CUTTER Christiano Ko MD LAB BLOOD ORDERABLES Final Result [facility] Department [place] [address] * (ABNORMAL) CBC without differential (05/15/2024 10:17 PM TACK CUTTER) WBC 6.5 3.8 - 9.9 K/cumm Hgb 9.3(L) 11.9 - 15.5 g/dL [facility] Hct 30.3(L) 35.6 - 45.5 % [facility] Plt 142(L) 150 - 400 K/cumm [facility] MPV 10.9 9.1 - 12.3 fL [facility] RBC 3.16(L) 3.90 - 5.20 M/cumm [facility] MCV 95.9 81.3 - 96.4 fL [facility] MCH 29.4 27.1 - 33.3 pg [facility] MCHC 30.7(L) 32.3 - 35.7 g/dL [facility] RDW CV 14.6 11.1 - 14.9 % [facility] RDW SD 51.8(H) 35.7 - 48.1 fL [facility] NRBC abs 0.00 0.00 - 0.01 K/cumm [facility] Blood 05/15/2024 10:1 7 PM TACK CUTTER 05/15/2024 10:31 PM TACK CUTTER us Christiaon Ko MD LAB BLOOD ORDERABLES Final Result Performing Organization Address City/[facility]/ZIP Co de Phone Number [facility] [employer] [address] [place] [address] * Phosphorus (05/15/2024 10:17 PM TACK CUTTER) Pathologist [facility] Phosphorus, pl 3.7 2.3 - 4.5 mg/dL Blood 05/15/2024 10:1 7 PM TACK CUTTER 05/15/2024 10:31 PM TACK CUTTER us Christiano Ko MD LAB BLOOD ORDERABLES Final Result Performing Organization Address [facility] Co de Phone Number [facility] [employer] [address] [place] [address] * Magnesium (05/15/2024 10:17 PM TACK CUTTER) [facility] Magnesium 2.0 1.4 - 2.5 mg/dL Blood 05/15/2024 10:1 7 PM TACK CUTTER 05/15/2024 10:31 PM TACK CUTTER us Christiano Ko MD LAB BLOOD ORDERABLES Final Result Performing Organization Address [facility] [place] [address] * (ABNORMAL) Basic metabolic panel (05/15/2024 10:17 PM TACK CUTTER) Sodium 145 135 - 145 mmol/L Potassium, pl 4.7 3.3 - 4.9 mmol/L [facility] Chloride 102 97 - 110 mmol/L [facility] CO2 37(H) 22 - 32 mmol/L [facility] Anion gap 6 2 - 15 mmol/L [facility] BUN 26(H) 6 - 25 mg/dL [facility] Creatinine 0.91 0.60 - 1.10 mg/dL [facility] Glucose 110 70 - 199 mg/dL [facility] Comment: Interpretive Data Fasting glucose >/= 126 [...] 2022. Calcium 9.1 8.5 - 10.3 mg/dL [facility] Blood 05/15/2024 10:1 7 PM TACK CUTTER 05/15/2024 10:31 PM TACK CUTTER Christiano Ko MD LAB BLOOD ORDERABLES Final Result Performing Organization Address [facility]/[place] de Phone Number [facility] Department [place] [address] * (ABNORMAL) Blood gas, arterial (05/15/2024 11:40 AM TACK CUTTER) pH, Art 7.32(L) 7.35 - 7.45 PCO2, Arterial 70(H) 35 - 45 mmHg [facility] PO2, Arterial 99 83 - 108 mmHg [facility] HCO3 Art (Calculated) 38(H) 20 - 30 mmol/L [facility] BE, art 8 mmol/L [facility] Comment: Interpretive Data No Reference Range Established Current Interpretive Data was last revised on 2017 O2 Sat Art (Measured) 98(H) 90 - 95 % [facility] Blood 05/15/2024 11:4 0 AM TACK CUTTER 05/15/2024 11:50 AM TACK CUTTER us Debby Gaona NP LAB BLOOD ORDERABLES F inal Result Performing Organization Address [facility] Co de Phone Number [facility] [place] [address] * TRANSTHORACIC ECHO (TTE) COMPLETE W DOPPLER/CF W CONTRAST (05/15/2024 10:00 AM TACK CUTTER) Anatomical Region Laterality Modality Ultrasound 05/15/2024 8:59 AM TACK CUTTER Narrative 05/15/2024 1:40 PM TACK CUTTER [facility] [place] [address] Transthoracic Echocardiographic Report Patient Name: LORRAINE WALLER J : 1945 (78y 4m) Gender: F Study Date: 05/15/2024 08:59:48 Ht(Inch): 65 Wt(Lb): 210.98 BSA: 2.09 Offset Printing Operator: Heber Mathur RDCS Location: [id number] Order Provider: CHRISTIANO KO Heart Rate: 83 BMI: 35.11 BP: 114 / 73 Quality: The study images were of technically good quality. Ref Provider: CHRISTIANO KO PROCEDURES: Echocardiographic Report: ([id number]) Transthoracic complete echo with strain imaging and [...] Signed By: Murtaza Pedersen MD 05/15/2024 13:39:37 TACK CUTTER Electronically Signed By: Murtaza Pedersen MD 05/15/2024 13:39:37 TACK CUTTER Procedure Note Murtaza Pedersen MD - 05/15/2024 [facility] [place] [address] Transthoracic Echocardiographic Report Patient Name: LORRAINE WALLER J : 1945 (78y 4m) Gender: F Study Date: 05/15/2024 08:59:48 Ht(Inch): 65 Wt(Lb): 210.98 BSA: 2.09 Offset Printing Operator: Heber Mathur RDCS Location: [id number] Order Provider:CHRISTIANO KO Heart Rate: 83 BMI: 35.11 BP: 114 / 73 Quality: The study images were oftechnically good quality. Ref Provider: CHRISTIANO KO PROCEDURES: Echocardiographic Report: ([id number], [id number]) Transthoracic complete echo withstrain imaging and contrast, [...] LA Length 4C 6.46 cm MV Decel Erum584.79 msec [ 104.00 - 258.00 ] LA [...] Signed By: Murtaza Pedersen MD 05/15/2024 13:39:37 TACK CUTTER Electronically Signed By: Murtaza Pedersen MD 05/15/2024 13:39:37 TACK CUTTER Christiano Ko MD CV ECHO PROCEDURES Final Re sult * eGFR (05/15/2024 8:13 AM TACK CUTTER) eGFR 80 >=60 mL/min/1. 73 m2 Comment: [...] last reviewed 2021. Blood 05/15/2024 8:13 AM TACK CUTTER 05/15/2024 8:32 AM TACK CUTTER Christiano Ko MD LAB BLOOD ORDERABLES Final Result [facility] [place] [address] * (ABNORMAL) CBC without differential (05/15/2024 8:13 AM TACK CUTTER) WBC 4.7 3.8 - 9.9 K/cumm Hgb 9.5(L) 11.9 - 15.5 g/dL [facility] Hct 31.3(L) 35.6 - 45.5 % [facility] Plt 119(L) 150 - 400 K/cumm [facility] MPV 10.8 9.1 - 12.3 fL [facility] RBC 3.21(L) 3.90 - 5.20 M/cumm [facility] MCV 97.5(H) 81.3 - 96.4 fL [facility] MCH 29.6 27.1 - 33.3 pg [facility] MCHC 30.4(L) 32.3 - 35.7 g/dL [facility] RDW CV 14.3 11.1 - 14.9 % [facility] RDW SD 51.6(H) 35.7 - 48.1 fL [facility] NRBC abs 0.00 0.00 - 0.01 K/cumm [facility] Blood 05/15/2024 8:13 AM TACK CUTTER 05/15/2024 8:33 AM TACK CUTTER Christiano Ko MD LAB BLOOD ORDERABLES Final Result Performing Organization Address City/[facility]/ZIP Co de Phone Number [facility] [place] [address] * Phosphorus (05/15/2024 8:13 AM TACK CUTTER) Phosphorus, pl 3.4 2.3 - 4.5 mg/dL Blood 05/15/2024 8:13 AM TACK CUTTER 05/15/2024 8:32 AM TACK CUTTER Christiano Ko MD LAB BLOOD ORDERABLES Final Result [facility] [place] [address] * Magnesium (05/15/2024 8:13 AM TACK CUTTER) Magnesium 2.0 1.4 - 2.5 mg/dL Blood 05/15/2024 8:13 AM TACK CUTTER 05/15/2024 8:32 AM TACK CUTTER us Christiano Ko MD LAB BLOOD ORDERABLES Final Result [facility] [employer] [address] [place] [address] * (ABNORMAL) Basic metabolic panel (05/15/2024 8:13 AM TACK CUTTER) Sodium 146(H) 135 - 145 mmol/L Potassium, pl 4.8 3.3 - 4.9 mmol/L [facility] Chloride 104 97 - 110 mmol/L [facility] CO2 36(H) 22 - 32 mmol/L [facility] Anion gap 6 2 - 15 mmol/L [facility] BUN 19 6 - 25 mg/dL [facility] Creatinine 0.77 0.60 - 1.10 mg/dL [facility] Glucose 114 70 - 199 mg/dL [facility] Comment: Interpretive Data Fasting glucose >/= 126 [...] 2022. Calcium 9.2 8.5 - 10.3 mg/dL [facility] Blood 05/15/2024 8:13 AM TACK CUTTER 05/15/2024 8:32 AM TACK CUTTER Christiano Ko MD LAB BLOOD ORDERABLES Final Result Performing Organization Address City/[facility]/ZIP Co de Phone Number [place] [facility] [place] [address] * ECG 12 lead (05/15/2024 7:03 AM TACK CUTTER) Ventricular Rate EKG/Min 89 BPM [facility] QRS-Interval (MSEC) 88 ms [facility] QT-Interval (MSEC) [address] [facility] QTc [address] [facility] R [place] [address] [facility] T [place] [address] [facility] Diagnosis Atrial fibrillation Rightward axis Low voltage QRS Abnormal ECG Confirmed by Willow Garcia MD ([id number]) on 05/15/2024 8:45:18 AM [facility] 05/15/2024 7:03 AM TACK CUTTER 05/15/2024 8:45 AM TACK CUTTER us Debby Gaona ENTERPRISE APPLICATION ANALYST ECG ORDERABLES Final Result [facility] * ECG 12 lead (05/15/2024 7:02 AM TACK CUTTER) Ventricular Rate EKG/Min [address] [facility] Atrial Rate 62 BPM [facility] IA-Interval (MSEC) [address] [facility] QRS-Interval (MSEC) [address] [facility] QT-Interval (MSEC) 456 ms [facility] QTc [address] [facility] R [place] [address] [facility] T [place] [address] [facility] Diagnosis Atrial fibrillation/flu tter Poor R-wave [...] infarct Present Confirmed by GABO PIEDRA M.D ([id number]) on 05/25/2024 3:18:42 PM [facility] 05/15/2024 7:02 AM TACK CUTTER 05/25/2024 3:18 PM TACK CUTTER us Christiano Ko MD ECG ORDERABLES Final Resul t [facility] from Last 3 Months Insurance MEDICARE Member Subscriber Plan / Payer (Ef fective 2012-Present) Name:Lorraine Waller Member ID:[id number] Relation to Subscriber:Self Name:Lorraine Waller Subscriber ID:[id number] Payer ID:[id number] Group ID:Not on file Type:MEDICARE TRADITIONAL Address: [place] [phone] MEDICARE BLUE CROSS MEDICARE SUPPLEMENT MEDICARE [facility] MEDICARE SUPPLEMENT Advance Directives For more information, please contact: [phone] * Full Code (Latest Code Status on File) Date Activated Date Inactivated Comments 05/13/2024 8:42 PM 05/27/2024 11:27 PM Care Teams Therapist Physical Relationship Specialty Start Date End Date Meagan Yusuf MD PCP - General Family Medicine 05/22/23 Annemarie Lea MD [address] [place] [address] Consulting Physician Otolaryngology 05/27/24 Margy Walker MD PhD [address] [place] [address] Consulting Physician Plastic Surgery 05/27/24 Geraldine Barbosa NP [address] [place] [address] Nurse Practitioner Neurosurgery 05/27/24
--- OUTSIDE RECORDS SUMMARY | 2024-08-12 20:49 | XMS_ITS | Clinical Summary ---
Author Organization [facility] Address [address] [place] [address] Phone Care Team Providers Care Testing Shaking Shipping Name Role Phone Juan David Yusuf MD Primary Care Provider [phone]- [phone] Allergies Active Allergy Reactions Criticality Noted Date [...] 6 Tablets 42 Tablet 01/30/2018 3:41 PM STUDENT MINISTRY PASTOR 8 Active Active Problems Problem Noted Date [...] on file Legal Sex Female 3:33 AM STUDENT MINISTRY PASTOR Gender Identity Not on file Sexual Orientation Not on file Last Filed Vital Signs Vital Sign Reading Time Taken Comments Blood Pressure 123/62 01/30/2018 12:28 PM STUDENT MINISTRY PASTOR Pulse 74 01/30/2018 12:28 PM STUDENT MINISTRY PASTOR Temperature 36.5 C (97.7 F) 01/30/2018 12:28 PM STUDENT MINISTRY PASTOR Respiratory Rate 10 01/30/2018 12:28 PM STUDENT MINISTRY PASTOR Oxygen Saturation 93% 01/30/2018 12:28 PM STUDENT MINISTRY PASTOR Inhaled Oxygen Concentration - - Weight 116.6 kg (257 lb) 01/28/2018 8:16 AM STUDENT MINISTRY PASTOR Height 167.6 cm (5' 6 ) 01/28/2018 8:16 AM STUDENT MINISTRY PASTOR Body Mass Index 41.48 01/28/2018 8:16 AM STUDENT MINISTRY PASTOR Plan of Treatment Health Maintenance Due Date Last Done Comments DTAP/TDAP/TD VACCINES (1 - Tdap) 12/21/1966 PNEUMOCOCCAL VACCINE 50+ YEARS (1 of 2 - PCV) 12/21/18 67 ZOSTER VACCINE (1 of 2) 12/21/1997 OSTEOPOROSIS SCREENING 12/21/2012 RSV VACCINE (60+ or ) (1 - 1-dose 75+ series) 12/21/2022 INFLUENZA VACCINE (#1) 2023 01/28/2018 Medical Devices Implanted Type Area Litigation Claim Representative Device Identifier Shelf Expiration Date Model / Serial / Lot Shell Ringlc+ Pc 54mm [id number] - [id number] Implanted:Qty: 1 on 11/08/2016 by Abhinav Quesada MD at [facility] Hip Right: Hip [employer] [id number] 09/27/2026 [id number] / / [id number] Liner Arcomxl Rnglc Sz24 [id number] - [id number] Implanted:Qty: 1 on 11/08/2016 by Abhinav Quesada MD at [facility] Hip Right: Hip [employer] [id number] 10/01/2020 [id number] / / [id number] Stem Fem Echo Bmtrc Por Red Lat [id number] - [id number] Implanted:Qty: 1 on 11/08/2016 by Abhinav Quesada MD at [facility] Hip Right: Hip [employer] [id number] 04/11/2025 [id number] / / [id number] Head Modular Noskt 36mm -3mm [id number] - [id number] Implanted:Qty: 1 on 11/08/2016 by Abhinav Quesada MD at [facility] Hip Right: Hip [employer] [id number] 09/25/2026 [id number] / / [id number] Rsp Glenoid Head W Retaining Screw Neutral Sz 32mm Implanted:Qty: 1 on 01/27/2018 by Guerrero Cho MD at [facility] Other Right: Shoulder [employer] 12/05/2023 508-32-10 1 / / [id number] Small Socket Insert 32mm Semi Constrained E Plus Implanted:Qty: 1 on 01/27/2018 by Guerrero Cho MD at [facility] Other Right: Shoulder [employer] 11/29/2022 509-03-03 2 / / [id number] Humeral Stem Small Shell [id number] Implanted:Qty: 1 on 01/27/2018 by Guerrero Cho MD at [facility] Other Right: Shoulder [employer] 11/22/2023 533-10-10 8 / / [id number] Description:All [employer] Surgical shoulder components are processed on requisition,[id number]. Rsp Glenoid Baseplate Implanted:Qty: 1 on 01/27/2018 by Guerrero Cho MD at [facility] Screw Right: Shoulder [employer] [id number] 10/23/2023 508-32-20 4 / / [id number] Rsp Bone Screw Locking Sz 5.0mm 30mm Long Implanted:Qty: 1 on 01/27/2018 by Guerrero Cho MD at [facility] Screw Right: Shoulder [employer] 06/25/2023 506-03- 0 / / [id number] Rsp Bone Screw Locking Sz 5.0mm 22 Mm Long Implanted:Qty: 1 on 01/27/2018 by Guerrero Cho MD at [facility] Screw Right: Shoulder [employer] 08/17/2023 506-12 2 / / [id number] Bone Screw Rsp5.0x26mm Long Implanted:Qty: 1 on 01/27/2018 by Guerrero Cho MD at [facility] Screw Right: Shoulder [employer] 6 / / Rsp Bone Screw- Locking Implanted:Qty: 1 on 01/27/2018 by Guerrero Cho MD at [facility] Right: Shoulder [employer] 11/01/2023 506-03-11 [id number] Insurance MEDICARE PART A AND B BCBS SUPP RX [employer] Medicare Part D RX [facility] Medicare Part D Advance Directives For more information, please contact: [phone] Documents on File Type Date Recorded Patient Instructional Services Librarian Expl anation Advance Directive POA 02/04/2018 1:58 [...] 6:44 AM 11/08/2016 7:30 AM Care Teams Testing Shaking Shipping Relationship Specialty Start Date End Date Juan David Yusuf MD PCP - General Family Practice 01/14/18
--- OUTSIDE RECORDS SUMMARY | 2024-08-12 20:49 | XMS_ITS | Data Portability ---
Author Organization [place] [facility], Main Office Address [address] [place] [address] Care Team Providers Care Hydrodynamics Teacher Name Role Phone P [facility] FAX OTHER JAMILA PAVON Primary Care Provider [phone] Assessment Encounter Date Assessment Date Assessment LastModified [...] Pt will d/c home on 07/07 with [facility], family oversight, and private duty nursing. New/Adjusted prescriptions have been sent to her pharmacy. Not available 07/06/2024 17:08:51 Plan of Treatment Reminders Order Date Submit Date Provider Last Modified By Organization Details Last Modified Time Details Appointments None recorded. Lab None recorded. Referral None recorded. Procedures None recorded. Surgeries None recorded. Imaging None recorded. Medication Orders metoprolol tartrate 25 mg tablet 2024 [facility] [employer] [facility] #85948, [address] [place], [place], [id number], 17:09:51 diltiazem 60 mg tablet 2024 [facility] [employer] [facility] #59576, [address], [place], [id number], 17:09:51 Trelegy Ellipta 200 mcg-62.5 mcg-25 mcg powder for inhalation 2024 [facility] [employer] [facility] #64130, [address] [place] [address], [id number], 17:09:49 bumetanide 1 mg tablet 2024 [facility] [employer] [facility] #18147, [address] [place] [address], [id number], 17:09:50 potassium chloride ER 20 mEq tablet,exte nded release 2024 [facility] [employer] [facility] #35130, [address] [place] [address], [id number], 17:09:49 Patient TargetsNo targets recorded. Patient Instructions Encounter Date Encounter Id Patient Instructions Last Modified By Organization Details Last Modified Time 06/25/2024 [id number] I spent {{ 36#}} minutes providing care to the patient today. More than 50% of that time was spent in discussing the expected course of the disease, discussing prognosis, coordinating care and counseling of the patient/family. Not available 06/25/2024 14:53:37 06/29/2024 [id number] I spent {{ 36#}} minutes providing care to the patient today. More than 50% of that time was spent in discussing the expected course of the disease, discussing prognosis, coordinating care and counseling of the patient/family. Not available 06/29/2024 15:43:29 07/01/2024 [id number] I spent {{ 35#}} minutes providing care to the patient today. More than 50% of that time was spent in discussing the expected course of the disease, discussing prognosis, coordinating care and counseling of the patient/family. [email or web address] Not available 07/01/2024 15:14:33 07/03/2024 [id number] I spent {{ 36#}} minutes providing care to the patient today. More than 50% of that time was spent in discussing the expected course of the disease, discussing prognosis, coordinating care and counseling of the patient/family. Not available 07/04/2024 11:14:28 07/06/2024 [id number] I spent {{ 40#}} minutes providing care [...] emergency room for new or worsening symptoms. Not available 07/06/2024 17:09:37 Reason for Referral None Reported. Results Created Date Observation Date Name Description Value Unit Range Abnormal Flag Note LastModifiedBy Organization Detail LastModifiedTime Result Notes None recorded. Procedures Surgical History Date Name Laterality Status Provider Name and Address Organization Details Recorded Time hysterectomy completed Aristides Duran [facility] 06/17/2024 01:52:21 total replacement of right hip joint completed Aristides Lawrence [facility] 06/17/2024 01:52:36 Appendectomy completed Aristides ISLAS [facility] 06/17/2024 01:52:41 total shoulder replacement completed Aristides Lawrence [facility] 06/17/2024 01:53:12 Carpal tunnel surgery completed Aristides Lawrence [facility] 06/17/2024 01:53:23 Imaging Results None recorded. Procedure Notes None recorded. Medical Equipment None Reported. Allergies Allergen ID Allergen Name Allergen Category Reaction Reaction Severity Criticality Documentation Date Start Date Code Code System Note Provider Name and Address Organization Details Recorded Time 41591 Product containin g penicilli n (product) medicatio n Not available Not available Not available 06/17/2024 86469 8001 SNOMED Aristides beyer [facility] 01:45:24 44522 thiopenta l Not available Not available Not available Not available 06/17/2024 56523 [facility] Medications Name Sig Start Date Stop [...] and Address Organization Details Last Updated DateTime 5 162.56 cm 84 /min 98.7 [degF] 20 /min 90 % 90 % 3 L/min 37.7 kg/m2 66879.1 7 g 128 mm[Hg] 71 mm[Hg] [place] [address] [place], [address], [place] [employer] 5 14:38:24 Date Recorded Body height Heart rate Body temperature Respiratory rate Oxygen saturation Oxygen saturation in Arterial blood by Pulse oximetry Inhaled oxygen flow rate Body mass index (BMI) Body weight Systolic blood pressure Diastolic blood pressure Provider Name and Address Organization Details Last Updated DateTime 5 162.56 cm 74 /min 98.3 [degF] 18 /min 96 % 96 % 4 L/min 36.4 kg/m2 24656.8 6 g 117 mm[Hg] 77 mm[Hg] [place] [address] [place], [address], [place] [employer] [facility] [employer] 5 09:59:41 Date Recorded Body height Heart rate Body temperature Respiratory rate Oxygen saturation Oxygen saturation in Arterial blood by Pulse oximetry Inhaled oxygen flow rate Body mass index (BMI) Body weight Systolic blood pressure Diastolic blood pressure Provider Name and Address Organization Details Last Updated DateTime 5 162.56 cm 90 /min 98.5 [degF] 20 /min 92 % 92 % 4 L/min 36.8 kg/m2 50684.2 g 121 mm[Hg] 71 mm[Hg] [place] [address] [place], [address], [place] [employer] 5 14:57:30 Date Recorded Body height Heart rate Body temperature Respiratory rate Oxygen saturation Oxygen saturation in Arterial blood by Pulse oximetry Inhaled oxygen flow rate Body mass index (BMI) Body weight Systolic blood pressure Diastolic blood pressure Provider Name and Address Organization Details Last Updated DateTime 162.56 cm 99 /min 98.5 [degF] 18 /min 96 % 96 % 4 L/min 37.2 kg/m2 16353.8 3 g 111 mm[Hg] 66 mm[Hg] [place] [address] [place], [address], [facility] 09:51:16 Date Recorded Body height [...] % 93 % 4 L/min 36.6 kg/m2 85055.5 3 g 110 mm[Hg] 76 mm[Hg] [place] [address] [place], [address], [facility] 10:53:58 Social History Question Answer Notes LastModified by [employer] Details LastModified Time Tobacco Smoking Status [facility] 01:56:15 What Is Your Code Status? DNR mvandorn Information not available 06/19/2024 When Did You Quit Smoking? 16+yearssinc elastcigaret te Information not available 06/17/2024 Sex: Unknown Functional Status Question Answer Note LastModified by [employer] Details LastModified Time Do you use any [...] Unspecified Relation Malignant neoplasm of uterus patito russell Not available 06/17/2024 01:54:43 Unspecified Relation Malignant tumor of cervix patito g Not available 06/17/2024 01:54:57 Unspecified Relation Cerebrovascu lar accident Not available 01:55:13 Unspecified Relation History of cardiovascul ar disease Not available 06/17 01:55:18 Unspecified Relation Glaucoma Not available 06/18/19 01:55:29 Daughter Crohn's disease Not available 2024 01:55:05 Medical History Condition Response Osteoarthritis / DJD Y Urinary Tract Infection (UTI) Y Atrial Fibrillation Y Incontinence -- Urinary Y Pulmonary Hypertension Y Chronic Kidney Disease (CKD) Y Myocardial Infarction (ME) Y Alcohol Abuse Y Psychiatric -- Depression Y COVID-19 Y Congestive Heart Failure (CHF) Y Hyperlipidemia Y Neuropathy Y Hypertension Y Gynecological HistoryNo gynecological history recorded. Obstetrics History GPAL:G 0 P 0 0 0 0 Past Encounters Encounter ID Performer Location Encounter Start Date Encounter Closed Date Diagnosis/Indication Diagnosis SNOMED-CT Code Diagnosis ICD10 Code Diagnosis Note [id number] [address] [address] 06/17/2024 13:52:49 06/21/2024 03:24:15 Closed fracture of distal end of left radius [id number] 6438134 S52.502D s/p ORIF 05/18 per hand/plast ics at [facility] remains NWB LUE with OCL splint in placeconti nue tylenol prn for painfu as scheduled with Dr. Shultz. Atrial fibrillation 4943 6004 I48.91 anticoagul ation has been heldcontin ue metoprolol and diltiazem for rate controlout patient cardiology fu as scheduled with Dr. 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 767754300 I13.0 continue diltiazem, metoprolol , lasixmonit or blood pressureso utpatient f/u with cardiology Coronary arteriosclerosis 21761540 I25.10 details unclear - patient denies recent chest pain and does not take nitro prn as outpatient continue current medication s regimen and f/u with cards as scheduled Chronic ob structive pulmonary disease 32509482 J44.9 on 4 liters/min sleetmute of supplement al O2 at baselinesh e does not use CPAP at home and has been refusing at rehabShe has her cpap machine at the facility and we will encourage compliance while hereoutpat ient fu with pulmonaryc ontinue trelegy which is newly prescribed - adding back prn duonebs Crohn's disease 48284491 K50.90 continue balsalazid e and cathartics as orderedout patient fu with GI Vitamin deficiency 38152 002 E56.9 continue B12 and vitamin D replacemen t therapy Constipation 75166202 K5 9.00 the patient is on routine senna s and miralaxmon itor clinically and adjust accordingl y Major depr essive disorder 381600927 F32.9 continue sertraline Gastroesop hageal reflux disease without esophagitis 568133650 K21.9 stable - continue pepcid Idiopathic peripheral neuropathy 60942757 G60.9 continue neurontin and prn tylenol Fracture of orbit 898542 07 S02.31XD ENT did ORIF 05/19eye drops have been d/c'doutpa tient f/u with ENT Intraparen chymal hemorrhage of brain 520473986 I61.8 anticoagul ation has been heldNS followed her during her hospitaliz ationshe completed seizure prophylaxi s medscontin ue to monitor neuro statuscont inue therapiesf /u with neurosurge ry as scheduled 06/30 with repeat head imaging Restless legs 83199730 G 25.81 continue ropinirole and pramipexol e Acute urin zuleika tract infection 167144041 N39.0 per urine done on arrival at [facility] - culture grew >100,000 klebsiella sensitivit ies were not ran for 1st generation cephalospo rins which is what the patient was treated with while at [facility] (Ancef x 7 days)she currently has no urinary symptoms or other concerns for infectionw ill monitor clinically Physical deconditioning 6476739209 9102 R68.89 related to advanced age, recent fall, comorbidit iestherapi es are in place, she will return home with family support upon d/c from [id number] Meagan Menjivar, [facility] [address] [place] [address] 06/22/2024 13:16:28 06/28/2024 20:30:53 Closed fracture of distal end of left radius 3889096435 4929959 S52.502D s/p ORIF 05/18 per hand/plast ics at [facility].She remains NWB LUE with OCL splint in place.Cont inue Tylenol PRN for pain.F/U as scheduled with Dr. Shultz on 06/23. Fracture of orbit 535437 07 S02.31XD ENT did ORIF on 05/19.Eye drops have been d/c'd.Outp atient f/u with ENT. Intraparen chymal hemorrhage of brain 267613839 I61.8 Anticoagul ation has been held.NS followed [...] Radha Jimenez on 07/22. Congestive heart failure 25906945 I50.9 Continue Lasix and Metoprolol .Monitor edema -- may need additional diuretics. Continue to trend blood pressures, monitor lytes and renal function, and adjust meds as clinically indicated. Chronic ki dney disease 569339542 N18.9 Unclear baseline. Cr appears to be WNL for most of her recent hospitaliz ation.Avoi d nephrotoxi ns and trend labs. Hyperlipidemia 52948553 E78.5 Presumed stable. Continue statin. 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 Continue Diltiazem, Metoprolol , and Lasix.Cont inue to trend blood pressures, monitor lytes and renal function, and adjust meds as clinically indicated. outpatient f/u with cardiology as above. Coronary arteriosclerosis 66911379 I25.10 Details unclear. Patient denies recent chest pain and does not take nitro prn as outpatient .Continue current medication s regimen and f/u with cards as scheduled. Chronic ob structive pulmonary disease 05143432 J44.9 on 4 liters/min sleetmute of supplement al O2 at baseline.S he does not use CPAP at home and has been refusing at rehab. She has her cpap machine at the facility and we will encourage compliance while here.Outpa tient f/u with pulmonary. Continue Trelegy, which is newly prescribed .Schedule Albuterol Nebs BID -- this is pt's OP orders (she admits to usually only doing once/day). Crohn's disease 87989972 K50.90 Continue Balsalazid e and cathartics as ordered.Ou tpatient f/u with GI. Vitamin deficiency 02513 002 E56.9 Continue B12 and vitamin D replacemen t therapy. Constipation 17256305 K5 9.00 Patient is on routine Senna S and Miralax.Mo nitor clinically and adjust accordingl y. Major depr essive disorder 105456491 F32.9 Stable. Continue Sertraline . Gastroesop hageal reflux disease without esophagitis 771345950 K21.9 Stable. Continue Pepcid. Idiopathic peripheral neuropathy 12971273 G60.9 Stable. Continue Neurontin and PRN Tylenol. Restless legs 97235713 G 25.81 Stable. Continue Ropinirole and Pramipexol e. Acute urin zuleika tract infection 976519542 N39.0 Per urine done on arrival at [facility], culture grew >100,000 klebsiella .Sensitivi ties were not ran for 1st generation cephalospo rins, which is what the patient was treated with while at [facility] (Ancef x 7 days).She currently has no urinary symptoms or other concerns for infection. Monitor clinically . Physical deconditioning 2253524767 9102 R68.89 Related to advanced age, recent fall, comorbidit ies.Therap ies are in place, she will return home with family support upon d/c from . [id number] Meagan MenjivarDO [address] [address] 06/25/2024 10:24:52 07/06/2024 11:30:12 Closed fracture of distal end of left radius 5513172520 0622551 S52.502D s/p ORIF 05/18 per hand/plast ics Dr. Margy Walker at [facility].She was initially NWB to LUE with OCL splint in place. Was seen by Dr. Walker on 06/23, OCL splint removed and wrist brace placed in stead, which she is to wear at all times (remove for exercise & shower) x 2 weeks.Cont inue Tylenol PRN for pain.Sutur es removed at 06/23 appt. Incisions healed.F/U with Dr. Walker PRN. Fracture of orbit 932535 07 S02.31XD S/P ORIF on 05/19 per ENT.Eye drops have been d/c'd.Outp atient f/u with ENT. Intraparen chymal hemorrhage of brain 733984059 I61.8 Anticoagul ation has been held.NS followed [...] Radha Jimenez on 07/22. Congestive heart failure 96419713 I50.9 Continue Lasix and Metoprolol .Pt reports weight prior to hospitaliz ation was 198 lbs.Add Metolazone x 5 days.KCl increase to 40 meq BID x 5 days, then back to 20 meq daily.Labs (CBC, CMP, BNP on 4/7.Monito r edema, weights, and labs. Chronic ki dney disease 393403886 N18.9 Unclear baseline. Cr appears to be WNL for most of her recent hospitaliz ation.Avoi d nephrotoxi ns and trend labs. Hyperlipidemia 27000464 E78.5 Presumed stable. Continue statin. 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 Continue Diltiazem, Metoprolol , Lasix, and Potassium. Bursting with Metolazone as above.Cont inue to trend blood pressures, monitor lytes and renal function, and adjust meds as clinically indicated. Outpatient f/u with cardiology as above. Coronary arteriosclerosis 53913728 I25.10 Details unclear. Patient denies recent chest pain and does not take nitro prn as outpatient .Continue current medication s regimen and f/u with cards as scheduled. Chronic ob structive pulmonary disease 75165377 J44.9 on 4 liters/min sleetmute of supplement al O2 at baseline.S he [...] well.Outpa tient f/u with pulmonary. Crohn's disease 58022382 K50.90 Continue Balsalazid e and cathartics as ordered.Ou tpatient f/u with GI. Vitamin deficiency 64774 002 E56.9 Continue B12 and vitamin D replacemen t therapy. Constipation 37324209 K5 9.00 Patient is on routine Senna S and Miralax.Mo nitor clinically and adjust accordingl y. Major depr essive disorder 429385046 F32.9 Stable. Continue Sertraline . Gastroesop hageal reflux disease without esophagitis 886821155 K21.9 Stable. Continue Pepcid. Idiopathic peripheral neuropathy 66358236 G60.9 Stable. Continue Neurontin and PRN Tylenol. Restless legs 67033384 G 25.81 Stable. Continue Ropinirole and Pramipexol e. Acute urin zuleika tract infection 858506175 N39.0 Per urine done on arrival at [facility], culture grew >100,000 klebsiella .Sensitivi ties were not ran for 1st generation cephalospo rins, which is what the patient was treated with while at [facility] (Ancef x 7 days).She currently has no urinary symptoms or other concerns for infection. Monitor clinically . Physical deconditioning 1023891497 9102 R68.89 Related to advanced age, recent fall, comorbidit ies.Therap ies are in place, she will return home with family support upon d/c from . [id number] Meagan Menjivar, [facility] [address] [place] [address] 06/29/2024 09:59:14 07/06/2024 11:31:59 Congestive heart failure 56613084 I50.9 Continue Lasix, KCl, and Metoprolol .Pt reports weight prior to hospitaliz ation was 198 lbs. Weight is down 8 lbs in the last 5 days but still [+] 13 lbs.Contin ues on Metolazone through 07/01.Labs (CBC, CMP, BNP) pending from this AM.Monitor edema, weights, and labs. 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 Continue Diltiazem, Metoprolol , Lasix, and Potassium. Bursting with Metolazone as above.Cont inue to trend blood pressures, monitor lytes and renal function, and adjust meds as clinically indicated. Outpatient f/u with cardiology as above. Closed fra cture of distal end of left radius 3976867346 7615346 S52.502D s/p ORIF 05/18 per hand/plast ics Dr. Margy Walker at [facility].She was initially NWB to LUE with OCL splint in place. Was seen by Dr. Walker on 06/23, OCL splint removed and wrist brace placed in stead, which she is to wear at all times (remove for exercise & shower) x 2 weeks.Cont inue Tylenol PRN for pain.Sutur es removed at 06/23 appt. Incisions healed.F/U with Dr. Walker PRN. Fracture of orbit 965189 07 S02.31XD S/P ORIF on 05/19 per ENT.Eye drops have been d/c'd.Outp atient f/u with ENT. Intraparen chymal hemorrhage of brain 800221761 I61.8 Anticoagul ation has been held.NS followed her during her hospitaliz ation.Comp leted seizure prophylaxi s meds.Gurpreet edgare to monitor neuro status.Con tinue therapies. f/u with neurosurge ry as scheduled 06/30 with repeat head imaging. Atrial fibrillation 4943 6004 I48.91 Anticoagul ation has been held.Gurpreet nue Metoprolol and Diltiazem for rate control.Ca rdiology f/u as scheduled with Dr. Radha Jimenez on 07/22. Chronic ki dney disease 797476295 N18.9 Unclear baseline. Cr appears to be WNL for most of her recent hospitaliz ation.Avoi d nephrotoxi ns and trend labs. Hyperlipidemia 01489940 E78.5 Presumed stable. Continue statin. Coronary arteriosclerosis 54557971 I25.10 Details unclear. Patient denies recent chest pain and does not take nitro prn as outpatient .Continue current medication s regimen and f/u with cards as scheduled. Chronic ob structive pulmonary disease 26513000 J44.9 on 4 liters/min sleetmute of supplement al O2 at baseline.S he [...] well.Outpa tient f/u with pulmonary. Crohn's disease 36421104 K50.90 Continue Balsalazid e and cathartics as ordered.Ou tpatient f/u with GI. Vitamin deficiency 61336 002 E56.9 Continue B12 and vitamin D replacemen t therapy. Constipation 10777852 K5 9.00 Patient is on routine Senna S and Miralax.Mo nitor clinically and adjust accordingl y. Major depr essive disorder 895613319 F32.9 Stable. Continue Sertraline . Gastroesop hageal reflux disease without esophagitis 289585998 K21.9 Stable. Continue Pepcid. Idiopathic peripheral neuropathy 32589435 G60.9 Stable. Continue Neurontin and PRN Tylenol. Restless legs 09375227 G 25.81 Stable. Continue Ropinirole and Pramipexol e. Acute urin zuleika tract infection 035786415 N39.0 Per urine done on arrival at [facility], culture grew >100,000 klebsiella .Sensitivi ties were not ran for 1st generation cephalospo rins, which is what the patient was treated with while at [facility] (Ancef x 7 days).She currently has no urinary symptoms or other concerns for infection. Monitor clinically . Physical deconditioning 7651179620 9102 R68.89 Related to advanced age, recent fall, comorbidit ies.Therap ies are in place, she will return home with family support upon d/c from . [id number] Meagan Menjivar DO [address] [address] 07/01/2024 12:56:01 07/06/2024 11:33:06 Congestive heart failure 45228729 I50.9 Continue Lasix, KCl, and Metoprolol .Pt reports weight prior to hospitaliz ation was 198 lbs. Weight is down 5 lbs with Metolazone burst. Completes today.Franca tor weights/ed sandra/labs. 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 Continue Diltiazem, Metoprolol , Lasix, and Potassium. Bursting with Metolazone as above.Cont inue to trend blood pressures, monitor lytes and renal function, and adjust meds as clinically indicated. Outpatient f/u with cardiology as above. Closed fra cture of distal end of left radius 8753025288 6468431 S52.502D s/p ORIF 05/18 per hand/plast ics Dr. Margy Walker at [facility].She was initially NWB to LUE with OCL splint in place. Was seen by Dr. Walker on 06/23, OCL splint removed and wrist brace placed in stead, which she is to wear at all times (remove for exercise & shower) x 2 weeks.Cont inue Tylenol PRN for pain.Sutur es removed at 06/23 appt. Incisions healed.F/U with Dr. Walker PRN. Fracture of orbit 277689 07 S02.31XD S/P ORIF on 05/19 per ENT.Eye drops have been d/c'd.Outp atient f/u with ENT. Intraparen chymal hemorrhage of brain 979623272 I61.8 Anticoagul ation has been held.NS followed her during her hospitaliz ation.Comp leted seizure prophylaxi s meds.Gurpreet nue to monitor neuro status.Con tinue therapies. f/u with neurosurge ry as scheduled 06/30 with repeat head imaging. Atrial fibrillation 4943 6004 I48.91 Anticoagul ation has been held.Gurpreet nue Metoprolol and Diltiazem for rate control.Ca rdiology f/u as scheduled with Dr. Radah Jimenez on 07/22. Chronic ki dney disease 716882961 N18.9 Unclear baseline. Cr appears to be WNL for most of her recent hospitaliz ation.Avoi d nephrotoxi ns and trend labs. Hyperlipidemia 87271999 E78.5 Presumed stable. Continue statin. Coronary arteriosclerosis 81321461 I25.10 Details unclear. Patient denies recent chest pain and does not take nitro prn as outpatient .Continue current medication s regimen and f/u with cards as scheduled. Chronic ob structive pulmonary disease 62948233 J44.9 on 4 liters/min sleetmute of supplement al O2 at baseline.S he [...] well.Outpa tient f/u with pulmonary. Crohn's disease 78851343 K50.90 Continue Balsalazid e and cathartics as ordered.Ou tpatient f/u with GI. Vitamin deficiency 94847 002 E56.9 Continue B12 and vitamin D replacemen t therapy. Constipation 83321284 K5 9.00 Patient is on routine Senna S and Miralax.Mo nitor clinically and adjust accordingl y. Major depr essive disorder [id number] F32.9 Stable. Continue Sertraline . Gastroesop hageal reflux disease without esophagitis 944460860 K21.9 Stable. Continue Pepcid. Idiopathic peripheral neuropathy 25382633 G60.9 Stable. Continue Neurontin and PRN Tylenol. Restless legs 97098821 G 25.81 Stable. Continue Ropinirole and Pramipexol e. Acute urin zuleika tract infection 521935714 N39.0 Per urine done on arrival at [facility], culture grew >100,000 klebsiella .Sensitivi ties were not ran for 1st generation cephalospo rins, which is what the patient was treated with while at [facility] (Ancef x 7 days).She currently has no urinary symptoms or other concerns for infection. Monitor clinically . Physical deconditioning [id number] 9102 R68.89 Related to advanced age, recent fall, comorbidit ies.Therap ies are in place, she will return home with family support upon d/c from . Chronic hy poxemic respiratory failure 155319540 J96.11 SEE ABOVE... [id number] Meagan Menjivar, DO [address] [address] 07/03/2024 09:50:27 07/06/2024 11:34:03 Congestive heart failure 08280873 I50.9 Improved with Metolazone burst (down 8 lbs) but has begun gaining weight and worsening edema since completed. Pt reports weight prior to hospitaliz ation was 198 lbs.Contin ue KCl and Metoprolol .Increase Lasix to Bumex 1.5 mg daily.Labs on Saturday.Sat itor weights/ed sandra/labs. Chronic ob structive pulmonary disease 04416157 J44.9 on 4 liters/min sleetmute of supplement al O2 at baseline.S he does not use CPAP at home and has been refusing at rehab as she says it is uncomforta ble due to her recent orbital fracture. She has her cpap machine at the facility and we will encourage compliance while here.Gurpreet nue Trelegy (new -- increasing to stronger dose today) and Albuterol BID routinely. Continue PRN Duonebs, as well.Outpa tient f/u with pulmonary. Chronic hy poxemic respiratory failure 757986951 J96.11 SEE ABOVE... 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 Continue Diltiazem, Metoprolol , and Potassium. Changing Lasix to Bumex as above.Rece ived Metolazone burst from 06/26 to 07/01.Contin ue to trend blood pressures, monitor lytes and renal function, and adjust meds as clinically indicated. Outpatient f/u with cardiology as above. Closed fra cture of distal end of left radius [id number] S52.502D s/p ORIF 05/18 per hand/plast ics Dr. Margy Walker at [facility].She was initially NWB to LUE with OCL splint in place. Was seen by Dr. Walker on 06/23, OCL splint removed and wrist brace placed in stead, which she is to wear at all times (remove for exercise & shower) x 2 weeks (07/07).Con tinue Tylenol PRN for pain.Sutur es removed at 06/23 appt. Incisions healed.F/U with Dr. Walker PRN. Fracture of orbit 158363 07 S02.31XD S/P ORIF on 05/19 per ENT.Eye drops have been d/c'd.Outp atient f/u with ENT. Intraparen chymal hemorrhage of brain 862679200 I61.8 Anticoagul ation has been held.NS followed [...] Jimenez on 07/22. Chronic ki dney disease 331199684 N18.9 Unclear baseline. Cr appears to be WNL for most of her recent hospitaliz ation.Avoi d nephrotoxi ns and trend labs. Hyperlipidemia 03596460 E78.5 Presumed stable. Continue statin. Coronary arteriosclerosis 47592883 I25.10 Details unclear. Patient denies recent chest pain and does not take nitro prn as outpatient .Continue current medication s regimen and f/u with cards as scheduled. Crohn's disease 83932845 K50.90 Continue Balsalazid e and cathartics as ordered.Ou tpatient f/u with GI. Vitamin deficiency 11220 002 E56.9 Continue B12 and vitamin D replacemen t therapy. Constipation 13418207 K5 9.00 Patient is on routine Senna S and Miralax.Mo nitor clinically and adjust accordingl y. Major depr essive disorder 290408898 F32.9 Stable. Continue Sertraline . Gastroesop hageal reflux disease without esophagitis 471945146 K21.9 Stable. Continue Pepcid. Idiopathic peripheral neuropathy 21392219 G60.9 Stable. Continue Neurontin and PRN Tylenol. Restless legs 90558443 G 25.81 Stable. Continue Ropinirole and Pramipexol e. Acute urin zuleika tract infection 614814938 N39.0 Per urine done on arrival at [facility], culture grew >100,000 klebsiella .Sensitivi ties were not ran for 1st generation cephalospo rins, which is what the patient was treated with while at [facility] (Ancef x 7 days).She currently has no urinary symptoms or other concerns for infection. Monitor clinically . Physical deconditioning 4940622948 9102 R68.89 Related to advanced age, recent fall, comorbidit ies.Therap ies are in place, she will return home with family support upon d/c from . [id number] Meagan Menjivar, [address] [address] 07/06/2024 10:53:33 07/08/2024 09:19:36 Congestive heart failure 27598160 I50.9 Pt reports weight prior to hospitaliz ation was 198 lbs. Improved with Metolazone burst (down 8 lbs) but immediatel y began gaining the weight and edema back once completed. Have escalated Lasix to Bumex with improvemen t. Continue KCl and Metoprolol , as well.Monit or weights/ed sandra/labs as OP.Cardiol ogy f/u with Dr. Radha Jimenez on 07/22. Chronic ob structive pulmonary disease 33352777 J44.9 on 4 liters/min sleetmute of supplement al O2 at baseline.S he does not use CPAP at home and has been refusing at rehab as she says it is uncomforta ble due to her recent orbital fracture. She has her cpap machine at the facility and we will encourage compliance while here. She has recently been intermitte ntly using.Cont inue Trelegy (new -- increased to stronger dose here) and Albuterol nebs BID routinely. Continue PRN Duonebs, as well.Outpa tient f/u with pulmonary. Chronic hy poxemic respiratory failure 910051955 J96.11 SEE ABOVE... Hypertensi ve heart and renal disease with (congestive) heart failure 305985194 I13.0 Stable. Continue Diltiazem, Metoprolol , Bumex, and Potassium. Received Metolazone burst from 06/26 to 07/01.Contin ue to trend blood pressures, monitor lytes and renal function, and adjust meds as clinically indicated. Cardiology f/u with Dr. Radha Jimenez on 07/22. Closed fra cture of distal end of left radius [id number] 3759692 S52.502D s/p ORIF 05/18 per hand/plast ics Dr. Margy Walker at [facility].She was initially NWB to LUE with OCL splint in place. Was seen by Dr. Walker on 06/23, OCL splint removed and wrist brace placed in stead, which she is to wear at all times (remove for exercise & shower) x 2 weeks (07/07).Con tinue Tylenol PRN for pain.Sutur es removed at 06/23 appt. Incisions healed.F/U with Dr. Walker PRN. Fracture of orbit 224345 07 S02.31XD S/P ORIF on 05/19 per ENT.Eye drops have been d/c'd.Outp atient f/u with ENT. Intraparen chymal hemorrhage of brain 297650005 I61.8 Anticoagul ation has been stopped.NS followed her during her hospitaliz ation.Comp leted seizure prophylaxi s meds.Gurpreet nue to monitor neuro status.Con tinue therapies. f/u with neurosurge ry on 06/30 with repeat head imaging, returned with NNO. F/U as directed. Atrial fibrillation 4943 6004 I48.91 Anticoagul ation has been stopped.Co ntinue Metoprolol and Diltiazem for rate control.Ca rdiology f/u with Dr. Radha Jimenez on 07/22. Chronic ki dney disease 399500881 N18.9 Unclear baseline. Cr appears to be WNL for most of her recent hospitaliz ation.Avoi d nephrotoxi ns and trend labs. Hyperlipidemia 69823992 E78.5 Presumed stable. Continue statin. Coronary arteriosclerosis 54658711 I25.10 Details unclear. Patient denies recent chest pain and does not take nitro prn as outpatient .Continue current medication s regimen and f/u with cards on 07/22. Crohn's disease 01969863 K50.90 Continue Balsalazid e and cathartics as ordered.Ou tpatient f/u with GI. Vitamin deficiency 93685 002 E56.9 Continue B12 and vitamin D replacemen t therapy. Constipation 89004428 K5 9.00 Patient is on routine Senna S and Miralax.Mo nitor clinically and adjust accordingl y. Major depr essive disorder 109072494 F32.9 Stable. Continue Sertraline . Gastroesop hageal reflux disease without esophagitis 652550350 K21.9 Stable. Continue Pepcid. Idiopathic peripheral neuropathy 70511968 G60.9 Stable. Continue Neurontin and PRN Tylenol. Restless legs 64300464 G 25.81 Stable. Continue Ropinirole and Pramipexol e. Acute urin zuleika tract infection 205039730 N39.0 Per urine done on arrival at [facility], culture grew >100,000 klebsiella .Sensitivi ties were not ran for 1st generation cephalospo rins, which is what the patient was treated with while at [facility] (Ancef x 7 days).She currently has no urinary symptoms or other concerns for infection. Monitor clinically . Health Concerns Section Related Observation LastModified by Organization Detai ls LastModified Time None Recorded Concern Status LastModified by Organization Details LastModified Time None Recorded Advance Directives Directive None Recorded Payers Encounter Date Sequence Insurance Name Policy Number Policy Garcia Covered Member ID Garcia Member ID Guarantor Name 06/25/2024 2 [place] [id number] Ping Waller [id number] Ping Waller 06/25/2024 1 [place] Ping Waller [id number] Ping Waller 06/29/2024 2 [place] [id number] Ping Montes Christin [id number] Ping J Christin 06/29/2024 1 [place] Ping Montes Christin [id number] 3 Ping J Christin 07/01/2024 2 [place] [id number] Ping Montes Christin [id number] Ping J Christin 07/01/2024 1 [place] Ping Montes Christin [id number] 3 Ping J Christin 07/03/2024 2 [place] [id number] Ping Montes Christin [id number] Ping J Christin 07/03/2024 1 [place] Ping Montes Christin [id number] 3 Ping J Christin 07/06/2024 2 [place] [id number] Ping Montes Christin [id number] Ping J Christin 07/06/2024 1 [place] Ping Montes Christin [id number] 3 Ping J Christin Notes Date Note Type Note Provider Name and Address Organization Details Recorded Time 06/25/2024 text/html F/U recurrent fa lls with head strike, left IPH, right orbital blowout fx s/p ORIF, and left distal radius fracture s/p ORIF, hypercarbia in setting of chronic respiratory failure on long-term oxygen supplementation, dysphagia, hypomagnesemia, diastolic CHF, Afib with RVR, COVID-19, deconditioning, and chronic medical conditions.---06/17/24T he patient is sitting up in her W/C, she has a close friend visiting her today, Ping is doing well, a good historian. She lives alone in a home in [place] - her daughter and son live on the same street. She is MOD IND with a walker/rollator at baseline. She can drive short distances still but prefers not to. She is on 4 liters of supplemental O2 at all times - has a CPAP but does not use typically due to it being uncomfortable and gives her claustrophobia. She reports she tried using CPAP during her acute rehab stay x 1 night but did not tolerate. She plans to return home with family assist and hired caregiver support at d/c from . Pain is controlled. She does have an intermittent baseline cough and her friend reports that she often has a wheeze when she breaths. The patient states that she typically uses her nebulizer twice daily at home.---06/22/24Ping is doing well today, her only concern is her BLE edema which she notes is actually improved this morning but was severe last night. We discuss her need to elevate her BLE when at rest and nursing is to apply compression. She is noted to have wheezing on exam. She has not been requesting PRN nebs but notes she does these daily as OP, but is supposed to take them BID. She is agreeable to having these scheduled. Labwork from this AM pending. VSS. Staff is without concerns today. Per 06/22 therapy notes: gait training with margareth walker from bed side commode to breakfast table 55 ft with WC follow CGA with min cues for AD placement . supine---06/25/24Ping is in her w/c in her room, self-propelling about. She is doing well, her only concerns continues to be her BLE edema. She does not feel it is worse or better since my last visit and is mainly to her BLE and some to her left hand. She was seen by ortho with her cast changed to a splint. She removes the splint to show me her incisions. Sutures were removed at her f/u appt and incisions are healing well with no concerns for infection. Respiratory status is stable today and she is without concerns. VSS. Staff is without concerns today. Per yesterday's therapy notes: Pt ambulated 80 ft with a FWW, requiring CGA. Patient requires cueing for diaphragmatic breathing techniques. Pt performs sit to stand and pivot transfers requiring CGA cueing for hand placement, safety and sequencing. Emy Su, ALFONSO [address] [facility], [place], [address], [facility] 06/25/2024 14:53:49 06/29/2024 text/html F/U recurrent fa lls with head strike, left IPH, right orbital blowout fx s/p ORIF, and left distal radius fracture s/p ORIF, hypercarbia in setting of chronic respiratory failure on long-term oxygen supplementation, dysphagia, hypomagnesemia, diastolic CHF, Afib with RVR, COVID-19, deconditioning, and chronic medical conditions.---06/17/24T he patient is sitting up in her W/C, she has a close friend visiting her today, Ping is doing well, a good historian. She lives alone in a home in [place] - her daughter and son live on the same street. She is MOD IND with a walker/rollator at baseline. She can drive short distances still but prefers not to. She is on 4 liters of supplemental O2 at all times - has a CPAP but does not use typically due to it being uncomfortable and gives her claustrophobia. She reports she tried using CPAP during her acute rehab stay x 1 night but did not tolerate. She plans to return home with family assist and hired caregiver support at d/c from . Pain is controlled. She does have an intermittent baseline cough and her friend reports that she often has a wheeze when she breaths. The patient states that she typically uses her nebulizer twice daily at home.---06/22/24Ping is doing well today, her only concern is her BLE edema which she notes is actually improved this morning but was severe last night. We discuss her need to elevate her BLE when at rest and nursing is to apply compression. She is noted to have wheezing on exam. She has not been requesting PRN nebs but notes she does these daily as OP, but is supposed to take them BID. She is agreeable to having these scheduled. Labwork from this AM pending. VSS. Staff is without concerns today. Per 06/22 therapy notes: gait training with margareth walker from bed side commode to breakfast table 55 ft with WC follow CGA with min cues for AD placement . supine---06/25/24Ping is in her w/c in her room, self-propelling about. She is doing well, her only concerns continues to be her BLE edema. She does not feel it is worse or better since my last visit and is mainly to her BLE and some to her left hand. She was seen by ortho with her cast changed to a splint. She removes the splint to show me her incisions. Sutures were removed at her f/u appt and incisions are healing well with no concerns for infection. Respiratory status is stable today and she is without concerns. VSS. Staff is without concerns today. Per yesterday's therapy notes: Pt ambulated 80 ft with a FWW, requiring CGA. Patient requires cueing for diaphragmatic breathing techniques. Pt performs sit to stand and pivot transfers requiring CGA cueing for hand placement, safety and sequencing. ---06/29/24M margot is doing fairly well today, without concerns to report or pain. She reports she thinks her BLE edema has improved but is not near baseline. She continues to deny respiratory concerns. It should be noted she is sitting in a room with the air on, temperature reading 62 degrees, and the window open. I ask her if she is cold and she says, yes! I prompt her that the windows are open and she is surprised/unaware of this. She also is not aware that the heat is not on. I correct these for her and turn the heat on to warm the room up to her desired 74 degrees. VSS. Staff is without concerns at present. Per today's therapy notes: Conducted gait training with FWW 100 ft CGA cues for posture and wider KARINE. Emy Su, PNEUMATIC TOOL REPAIRER [address] [facility], [place], [address], [facility] 06/29/2024 15:44:08 07/01/2024 text/html F/U recurrent fa lls with head strike, left IPH, right orbital blowout fx s/p ORIF, and left distal radius fracture s/p ORIF, hypercarbia in setting of chronic respiratory failure on long-term oxygen supplementation, dysphagia, hypomagnesemia, diastolic CHF, Afib with RVR, COVID-19, deconditioning, and chronic medical conditions.---06/17/24T he patient is sitting up in her W/C, she has a close friend visiting her today, Ping is doing well, a good historian. She lives alone in a home in [place] - her daughter and son live on the same street. She is MOD IND with a walker/rollator at baseline. She can drive short distances still but prefers not to. She is on 4 liters of supplemental O2 at all times - has a CPAP but does not use typically due to it being uncomfortable and gives her claustrophobia. She reports she tried using CPAP during her acute rehab stay x 1 night but did not tolerate. She plans to return home with family assist and hired caregiver support at d/c from . Pain is controlled. She does have an intermittent baseline cough and her friend reports that she often has a wheeze when she breaths. The patient states that she typically uses her nebulizer twice daily at home.---06/22/24Ping is doing well today, her only concern is her BLE edema which she notes is actually improved this morning but was severe last night. We discuss her need to elevate her BLE when at rest and nursing is to apply compression. She is noted to have wheezing on exam. She has not been requesting PRN nebs but notes she does these daily as OP, but is supposed to take them BID. She is agreeable to having these scheduled. Labwork from this AM pending. VSS. Staff is without concerns today. Per 06/22 therapy notes: gait training with margareth walker from bed side commode to breakfast table 55 ft with WC follow CGA with min cues for AD placement . supine---06/25/24Ping is in her w/c in her room, self-propelling about. She is doing well, her only concerns continues to be her BLE edema. She does not feel it is worse or better since my last visit and is mainly to her BLE and some to her left hand. She was seen by ortho with her cast changed to a splint. She removes the splint to show me her incisions. Sutures were removed at her f/u appt and incisions are healing well with no concerns for infection. Respiratory status is stable today and she is without concerns. VSS. Staff is without concerns today. Per yesterday's therapy notes: Pt ambulated 80 ft with a FWW, requiring CGA. Patient requires cueing for diaphragmatic breathing techniques. Pt performs sit to stand and pivot transfers requiring CGA cueing for hand placement, safety and sequencing. ---06/29/24M margot is doing fairly well today, without concerns to report or pain. She reports she thinks her BLE edema has improved but is not near baseline. She continues to deny respiratory concerns. It should be noted she is sitting in a room with the air on, temperature reading 62 degrees, and the window open. I ask her if she is cold and she says, yes! I prompt her that the windows are open and she is surprised/unaware of this. She also is not aware that the heat is not on. I correct these for her and turn the heat on to warm the room up to her desired 74 degrees. VSS. Staff is without concerns at present. Per today's therapy notes: Conducted gait training with FWW 100 ft CGA cues for posture and wider KARINE. ---07/01/24Ping is doing well, resting in bed, actually wearing her CPAP machine (!) but, while it is noted that the oxygen tubing is attached, the hose connecting to the machine has become unplugged. I assist her in plugging it back in. We discuss her BLE edema. It is improved from previous exams. Is noted to have bilateral splotches of faint pink on her shins but they are not warm or tender. Will monitor. Weight came down nicely, did increase a few pounds yesterday but still remains net down about 5 lbs with Metolazone burst, which she completes today. Will continue to monitor, may need to repeat burst depending on lab results. Her lungs sound clearer today and this is the first visit where I have not auscultated wheezing, possibly due to wearing CPAP (which I tell her) vs. starting Trelegy inhaler this morning. VSS. Staff is without concerns. Per therapy notes: Conducted gait training with FWW 60ft CGA cues for turing AD pt was very impulsive. Emy Su, ALFONSO [address] [facility], [place], [address], [facility] 07/01/2024 15:15:41 07/03/2024 text/html F/U recurrent fa lls with head strike, left IPH, right orbital blowout fx s/p ORIF, and left distal radius fracture s/p ORIF, hypercarbia in setting of chronic respiratory failure on long-term oxygen supplementation, dysphagia, hypomagnesemia, diastolic CHF, Afib with RVR, COVID-19, deconditioning, and chronic medical conditions.---06/17/24T he patient is sitting up in her W/C, she has a close friend visiting her today, Ping is doing well, a good historian. She lives alone in a home in [place] - her daughter and son live on the same street. She is MOD IND with a walker/rollator at baseline. She can drive short distances still but prefers not to. She is on 4 liters of supplemental O2 at all times - has a CPAP but does not use typically due to it being uncomfortable and gives her claustrophobia. She reports she tried using CPAP during her acute rehab stay x 1 night but did not tolerate. She plans to return home with family assist and hired caregiver support at d/c from . Pain is controlled. She does have an intermittent baseline cough and her friend reports that she often has a wheeze when she breaths. The patient states that she typically uses her nebulizer twice daily at home.---06/22/24Ping is doing well today, her only concern is her BLE edema which she notes is actually improved this morning but was severe last night. We discuss her need to elevate her BLE when at rest and nursing is to apply compression. She is noted to have wheezing on exam. She has not been requesting PRN nebs but notes she does these daily as OP, but is supposed to take them BID. She is agreeable to having these scheduled. Labwork from this AM pending. VSS. Staff is without concerns today. Per 06/22 therapy notes: gait training with margareth walker from bed side commode to breakfast table 55 ft with WC follow CGA with min cues for AD placement . supine---06/25/24Ping is in her w/c in her room, self-propelling about. She is doing well, her only concerns continues to be her BLE edema. She does not feel it is worse or better since my last visit and is mainly to her BLE and some to her left hand. She was seen by ortho with her cast changed to a splint. She removes the splint to show me her incisions. Sutures were removed at her f/u appt and incisions are healing well with no concerns for infection. Respiratory status is stable today and she is without concerns. VSS. Staff is without concerns today. Per yesterday's therapy notes: Pt ambulated 80 ft with a FWW, requiring CGA. Patient requires cueing for diaphragmatic breathing techniques. Pt performs sit to stand and pivot transfers requiring CGA cueing for hand placement, safety and sequencing. ---06/29/24 margot is doing fairly well today, without concerns to report or pain. She reports she thinks her BLE edema has improved but is not near baseline. She continues to deny respiratory concerns. It should be noted she is sitting in a room with the air on, temperature reading 62 degrees, and the window open. I ask her if she is cold and she says, yes! I prompt her that the windows are open and she is surprised/unaware of this. She also is not aware that the heat is not on. I correct these for her and turn the heat on to warm the room up to her desired 74 degrees. VSS. Staff is without concerns at present. Per today's therapy notes: Conducted gait training with FWW 100 ft CGA cues for posture and wider KARINE. ---07/01/24Martrish is doing well, resting in bed, actually wearing her CPAP machine (!) but, while it is noted that the oxygen tubing is attached, the hose connecting to the machine has become unplugged. I assist her in plugging it back in. We discuss her BLE edema. It is improved from previous exams. Is noted to have bilateral splotches of faint pink on her shins but they are not warm or tender. Will monitor. Weight came down nicely, did increase a few pounds yesterday but still remains net down about 5 lbs with Metolazone burst, which she completes today. Will continue to monitor, may need to repeat burst depending on lab results. Her lungs sound clearer today and this is the first visit where I have not auscultated wheezing, possibly due to wearing CPAP (which I tell her) vs. starting Trelegy inhaler this morning. VSS. Staff is without concerns. Per therapy notes: Conducted gait training with FWW 60ft CGA cues for turing AD pt was very impulsive. ---07/03/24M margot is self-propelling down the hallway in her w/c, heading to a therapy session. She is without pain to report or concerns. She notes she feels her edema had improved with Metolazone burst but has been gradually worsening once it stopped. She denies respiratory symptoms but is noted to have expiratory wheezing as usual. She is in agreement to trialling stronger dose of Tregely. She continues on routine nebs, as well. She is also in agreement to escalating her daily diuretics. She believes she will discharge sometime next week so would like to do this today rather than waiting. VSS. Staff is without concerns today. Per 07/02 therapy notes: Conducted gait training with FWW 75 ft SBA cues for energy conservation. Emy Su, PNEUMATIC TOOL REPAIRER [id number] [place], [id number], [employer] 07/04/2024 11:15:18 07/06/2024 text/html 78 yo F PMH HFrE F pulm HTN, COPD, 4L O2 at baseline, Afib on xarelto admitted to [facility] for post acute rehab subsequent to an inpatient stay at [facility] hospital 05/13-05/27/24 and an acute rehab stay at [facility] 05/27-06/16/24 following a fall with head strike. She fell from a stool at her kitchen countertop on the am of 05/12. She was initially taken to [facility] and then transferred to [facility] due to her injuries. Injuries#Orbital Blowout Fx#L IPH#L distal radius fractureSurgeries05/18 ORIF L radius w PRS ([place])05/19 R ORIF Orbital FloorHospital Course:Closed fracture of distal end of left radius- Plastics consult- L hand/wrist xr (05/14): Comminuted intra-articular fracture of the left distal radius with mild articular surface depression, Apparent widening of the left scapholunate interval may be seen in setting of ligamentous injury.- NWB LUE- LUE with sugartong splint05/18 ORIF L radius w PRS (Kells)- Follow up outpatient with PRS (Denise)Intraparenchyma l hematoma of brain due to trauma- Neurosurgery consult- Repeat head CT (05/13): Unchanged subcentimeter focus of hyperattenuation within splenium of the left corpus callosum, which is favored to represent a intraparenchymal hemorrhage in setting of trauma. No new intracranial hemorrhage.- Keppra 500 mg BID x 7 days, completed 05/20- Brain MRI (05/14): 1 mm left cerebral convexity subdural hemorrhage, no midline shift- Hold all AC and antiplatelet until follow up- f/u 06/30 with MRI of brainOrbital floor (blow-out) closed fractureOphtho c/s---HOB elevation, open-mouth sneezing, no nose-blowing- May use cool compress / ice pack on periorbital region x 5-10 minutes q30 minutes- Eye dilation (05/15)- ENT c/s--- Elevate HOB--- No nose blowing, open mouth sneezing--- Decadron 8mg IV x1 + Medrol dose pack--- OR on 05/19 for ORIF -> remaining intubated subsequently per their request, ok to extubate from their standpoint 05/21 w/ mustache dressing for CPAP- Decadron q 8 while hospitalized. Tobradex R eye q 6- Follow up with Dr Lea's team. [phone] sAncef 7day (complete)* Fall, initial encounterSyncopal workup given unclear mechanism (TTE, carotid duplexes, OSVS)- Hgb 9.7 on arrival, monitor on CBC (9.9 in January)- CXR negative for acute injury- CT CAP negativeHypercarbia#CO PD#TRAVIS, chronic#Chronic hypoxic respiratory failure- On 4L NC at baseline, not CPAP compliant per chart review and has been rec to repeat sleep study- See above for PAP plans #TRAVIS, chronic- CPAP @ night w/ mustache dressing as described above.- Spot dose lasix as indicated- maintain SpO2 > 88%- pulm hygiene/PT/OT/ISFeedin g difficultiesSBFT placed by ENT 05/21TFs commenced 05/21, advancing as tolerated05/24: On regular PO diet today. Informed by [...] NPO, resumed tube feeds, ordered for repeat CONDENSER SETTER evaluation. Recommend up in chair for all meals and 1:1 assistance during meals pending CONDENSER SETTER evaluation. Discussed with patient and nurse to inform provider of any change in clinical exam or vital signs.05/25: repeat Swallow- regular diet, regular thin liquids assistance with meals, calorie counts ordered, cycle tube feeding over PMMBS (05/27): swallow mechanism is normalRespiratory distressTransferred to SICU 05/18 ON after respiratory distress w/ PCO2 in 80sNow intubated sp OR w/ ENT 05/19, ok to extubate from their perspective 05/21 amExtubated 05/21Back on CPAP w/ mustache dressing per ENT05/24: CXR: Small bilateral pleural effusion associated with atelectasis, no significant change. Decreased pulmonary edema. Resume home lasix when appropriate.Hypomagnes emia- Magnesium (05/14): 1.9mg/dL- 05/14: replete Magnesium 2g IV- Magnesium (05/15): 2.0mg/dL- Magnesium (05/20): 2.2mg/dL- Magnesium (05/25): 2.0mg/dL- continue to trend MagnesiumSyncope- Orthostatic vital signs (05/14): negative- ECHO (05/15): Mildly dilated left ventricle based [...] systolic pressure, no tricuspid stenosis, no pericardial effusion- carotid duplex (05/14): right internal carotid artery disease is consistent with a less than 50% stenosis, left internal carotid artery disease is consistent with a less than 50% stenosis, Atherosclerotic changes of the bilateral common carotid artery without hemodynamically significant Doppler findings, normal, antegrade flow is noted in bilateral vertebral arteriesMood disorderContinue home zoloftRestless leg syndrome- Continue home ropinrole and pramipexole, gabapentinChronic diastolic heart failureGrade II diastolic dysfunction-EF 70%, moderate pulmonary hypertension (09/2021)05/24: resumed home diltiazem. CTM BP and resume home lasix when appropriate.Atrial fibrillation- Hold Xarelto- home diltiazem 180 mg daily, metprolol 25 mg bid, entresto 24-26mg BID, rosuvastatin- Hold home lasix- Last TTE in system with grade II diastolic dysfunction , EF 70%, moderate pulmonary hypertension (09/2021)- 05/15: developed atrial fibrillation with RVR over PM--> received Metoprolol 5mg IV x2, repeat EKG obtained- 05/18: Resumed diltiazem 30 mg TID- 05/24: Resumed diltiazem 30mg TIDSevere pulmonary hypertension- TTEs as above- Home O2 4L- Follows with [facility]iology- Home Diltiazem, Entresto, Lasix (1/2 dose) and metoprolol continued She was transferred to [facility] 05/27. Her stay there was complicated by Covid - she required transfer to the ER at [facility] 06/05 with CTA of the chest negative for PE or pneumonia. It is unclear if she was treated with antivirals as no d/c summary from her stay at [facility] has been provided, only a few progress notes and NO labs or imaging results sent from her stay at [facility]. The patient did not have an increase in her O2 needs due to covid. She reports mild symptoms and denies other complications during her acute rehab stay. New Medications: trelegyDose adjusted: metoprolol, diltiazem, kclDiscontinued medications: oxycodone, nebs, entresto Code status is DNRdaumeghan Joi, is MPOA, son, Gato, is FPOAPCP Meagan Madelin---06/17/24 patient is sitting up in her W/C, she has a close friend visiting her today, Ping is doing well, a good historian. She lives alone in a home in [place] - her daughter and son live on the same street. She is MOD IND with a walker/rollator at baseline. She can drive short distances still but prefers not to. She is on 4 liters of supplemental O2 at all times - has a CPAP but does not use typically due to it being uncomfortable and gives her claustrophobia. She reports she tried using CPAP during her acute rehab stay x 1 night but did not tolerate. She plans to return home with family assist and hired caregiver support at d/c from . Pain is controlled. She does have an intermittent baseline cough and her friend reports that she often has a wheeze when she breaths. The patient states that she typically uses her nebulizer twice daily at home.---06/22/24Ping is doing well today, her only concern is her BLE edema which she notes is actually improved this morning but was severe last night. We discuss her need to elevate her BLE when at rest and nursing is to apply compression. She is noted to have wheezing on exam. She has not been requesting PRN nebs but notes she does these daily as OP, but is supposed to take them BID. She is agreeable to having these scheduled. Labwork from this AM pending. VSS. Staff is without concerns today. Per 06/22 therapy notes: gait training with margareth walker from bed side commode to breakfast table 55 ft with WC follow CGA with min cues for AD placement . supine---06/25/24Martrish is in her w/c in her room, self-propelling about. She is doing well, her only concerns continues to be her BLE edema. She does not feel it is worse or better since my last visit and is mainly to her BLE and some to her left hand. She was seen by ortho with her cast changed to a splint. She removes the splint to show me her incisions. Sutures were removed at her f/u appt and incisions are healing well with no concerns for infection. Respiratory status is stable today and she is without concerns. VSS. Staff is without concerns today. Per yesterday's therapy notes: Pt ambulated 80 ft with a FWW, requiring CGA. Patient requires cueing for diaphragmatic breathing techniques. Pt performs sit to stand and pivot transfers requiring CGA cueing for hand placement, safety and sequencing. ---06/29/24M margot is doing fairly well today, without concerns to report or pain. She reports she thinks her BLE edema has improved but is not near baseline. She continues to deny respiratory concerns. It should be noted she is sitting in a room with the air on, temperature reading 62 degrees, and the window open. I ask her if she is cold and she says, yes! I prompt her that the windows are open and she is surprised/unaware of this. She also is not aware that the heat is not on. I correct these for her and turn the heat on to warm the room up to her desired 74 degrees. VSS. Staff is without concerns at present. Per today's therapy notes: Conducted gait training with FWW 100 ft CGA cues for posture and wider KARINE. ---07/01/24Martrish is doing well, resting in bed, actually wearing her CPAP machine (!) but, while it is noted that the oxygen tubing is attached, the hose connecting to the machine has become unplugged. I assist her in plugging it back in. We discuss her BLE edema. It is improved from previous exams. Is noted to have bilateral splotches of faint pink on her shins but they are not warm or tender. Will monitor. Weight came down nicely, did increase a few pounds yesterday but still remains net down about 5 lbs with Metolazone burst, which she completes today. Will continue to monitor, may need to repeat burst depending on lab results. Her lungs sound clearer today and this is the first visit where I have not auscultated wheezing, possibly due to wearing CPAP (which I tell her) vs. starting Trelegy inhaler this morning. VSS. Staff is without concerns. Per therapy notes: Conducted gait training with FWW 60ft CGA cues for turing AD pt was very impulsive. ---07/03/24M margot is self-propelling down the hallway in her w/c, heading to a therapy session. She is without pain to report or concerns. She notes she feels her edema had improved with Metolazone burst but has been gradually worsening once it stopped. She denies respiratory symptoms but is noted to have expiratory wheezing as usual. She is in agreement to trialling stronger dose of Tregely. She continues on routine nebs, as well. She is also in agreement to escalating her daily diuretics. She believes she will discharge sometime next week so would like to do this today rather than waiting. VSS. Staff is without concerns today. Per 07/02 therapy notes: Conducted gait training with FWW 75 ft SBA cues for energy conservation. ---Ping saenz seated in her w/c in her room, in good spirits, looking forward to discharging home tomorrow. She will have [facility] as well as private-duty nursing to help me at night. She is without concerns regarding her discharge. No wheezing is noted on exam today, she notes she has just completed her morning nebulizer and feels they are helping. VSS. Staff is without concerns today. Per today's therapy notes: Conducted gait training with 4 WW 60 ft x1 and 100 ft x1 SBA cues for floor clearance and saftey Emy Su, ALFONSO [address] [place], [id number], [facility] 07/06/2024 17:10:14 OBGyn Episode No OBEpisode recorded.
--- OUTSIDE RECORDS SUMMARY | 2024-08-12 20:49 | XMS_ITS ---
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 Phone Camila Spence Unavailable [phone] Liseth Suherine Unavailable Meagan Turner Unavailable [phone] Functional Status No Results Mental Status No Results Allergies and Intolerances Name Onset Date Reaction Severity thiopental (Allergy) SatFeb 06 12:18:00 EST 202 3 penicillin (Allergy) SatFeb 06 12:18:00 EST 202 3 Encounters Program Name Primary Diagnosis Admission Date/Time Dis charge Date/Time [facility] SatAugust 19 13:00:00 EDT 2023Sep 02 11:00:00 EDT 2023 [facility] SatJun 16 10:00:00 EDT 2024Jul 07 09:45:00 EDT 2024 Immunizations Name Dates Status TST-PPD intradermal SatJun [...] Time Daily Indication: Edema SatJul 04 07:00:00 2024Jul 07:00:00 2024 polyethylene glycoL 3350 17 gram/dose oral powder 17 g POWDER (GRAM) Oral PRN 1 Time Daily Indication: constipation SatJul 02 19:06:00 2024Jul 07:00:00 ED2024 Stimulant Laxative Plus 8.6 mg-50 mg tablet 2 tabs TABLET Oral PRN 2 Times Daily Indication: constipation SatJul 02 19:06:00 2024Jul 07:00:00 2024 Trelegy Ellipta 100 mcg-62.5 mcg-25 [...] painMax dose 3grams/24 hours SatJun 30 11:54:00 ED2024Jul 07 01:00:00 2024 potassium chloride ER 20 [...] Daily Indication: supplement SatJun 16 13:00:00 EDT 2024Jun 17 10:49:00 EDT 2024 Stimulant Laxative Plus 8.6 mg-50 mg tablet 2 tabs TABLET Oral 2 Times Daily Indication: constipation SatJun 16 13:00:00 EDT 2024Jul 02 19:07:00 EDT 2024 rOPINIRole 0.5 mg tablet 0.5 mg TABLET O ral 3 Times Daily Indication: Parkinson's SatJun 16 13:00:00 EDT 2024Jul 07 01:00:00 EDT 2024 sertraline 100 mg tablet 100 mg TABLET O ral 1 Time Daily Indication: depression SatJun 16 13:00:00 EDT 2024Jul 07 01:00:00 EDT 2024 acetaminophen 500 mg tablet 1000 mg TABL ET Oral PRN Every 6 Hours Indication: pain SatJun 16 13:00:00 EDT 2024Jun 30 11:55:00 EDT 2024 polyethylene glycoL 3350 17 gram/dose oral powder 17 g POWDER (GRAM) Oral 1 Time Daily Indication: constipation SatJun 16 13:00:00 EDT 2024Jul 02 19:07:00 EDT 2024 furosemide 40 mg tablet 40 mg TABLET Ora l 1 Time Daily Indication: HTN BP and/or Pulse Hold: Systolic Blood Pressure < 110 Hold;. SatJun 16 13:00:00 EDT 2024Jul 03 12:27:00 EDT 2024 TubersoL 5 tub. 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 * LSSAmilcarSocial ServicesRoger Feng has a dx of depression and is currently on an antidepressant.* Code: * Start Date: SatJun 29 00:00:00 EDT 2024 * End Date: * Text: LSS_Social ServicesRoger Feng has a dx of depression and is currently on an antidepressant. * LSS_Social ServicesRoger Feng's mobility level is different than prior level due to current medical condition.* Code: * Start Date: SatJun 29 00:00:00 EDT 2024 * End Date: * Text: LSS_Social ServicesRoger Feng's mobility level is different than prior level due to current medical condition. * LSS_Urinary Incontinence1 - Ping is occasionally incontinent.* Code: * Start Date: SatJun 29 00:00:00 EDT 2024 * End Date: * Text: LSS_Urinary Incontinence1 - Ping is occasionally incontinent. * LSS_ADLs Roger Feng has ADL selfcare deficit related to decreased [...] risk for drug-related side effects. * LSS_COPD Roger Feng has diagnosis of COPD.* Code: * Start Date: SatJun 29 00:00:00 EDT 2024 * End Date: * Text: LSS_COPD Roger Feng has diagnosis of COPD. * [id number] Ping receives a therapeutic diet. (12)* Code: * Start Date: SatJun 25 00:00:00 EDT 2024 * End Date: * Text: [id number] Ping receives a therapeutic diet. (12) * LSS_Social ServicesRoger Feng will be involved in discharge planning.* Code: * Start Date: SatAug 23 00:00:00 EDT 2023 * End Date: * Text: S_Social ServicesRoger Feng will be involved in discharge planning. * GIANNASAmilcarSocial ServicesRoger Feng has a dx of depression and is currently on an antidepressant.* Code: * Start Date: SatAug 23 00:00:00 EDT 2023 * End Date: * Text: GIANNAS_Social ServicesRoger Feng has a dx of depression and is currently on an antidepressant. * LSS_Social Services- Ping's mobility level is different than prior level [...] Status).* Code: * Start Date: SatAug 23 00::00 EDT 2023 * End Date: * Text: NEGRITOSocial Allegra Feng's wishes will be followed (Advanced Directive/Code Status). * NEGRITOSocial Allegra Feng has family/friends who [...] wishes will be followed (Advanced Directive/Code Status). Resolved Concerns * Problem Other specified respiratory disorders* Code: * Start Date: SatFeb 06 00:00:00 [...] EDT 2024 Heart Rate 94.00 /min Sun Apr 22:01 :27 EDT 2024 Pulse Oximetry 99.00 [...] 2024 Heart Rate 82.00 /min Sun Apr 13 09:15 :28 EDT 2024 Heart Rate 82.00 /min Sun Apr 09:15 :28 EDT 2024 Systolic Blood Pressure 133.00 mm[Hg] Sun Apr 01:05:24 EDT 2024 Diastolic Blood Pressure 89.00 mm[Hg] Sun Jun 13 01:05:24 EDT 2024 Heart Rate 94.00 /min Sun Jun 13 01:05 :24 EDT 2024 Body temperature 97.10 [degF] Sun Jul 05 01:0 5:24 EDT 2024 Respiratory rate 18.00 /min Sun Apr 01:0 5:24 EDT 2024 Pulse Oximetry 94.00 % Sun Jul 05 01:05 :24 EDT 2024 Pulse Oximetry 94.00 % Sun Jul 05 01:05 :24 EDT 2024 Pulse Oximetry 94.00 % Sun Apr 01:05 :24 EDT 2024 Systolic Blood Pressure 122.00 mm[Hg] Sat Apr 12 22:04:55 EDT 2024 Diastolic Blood Pressure 80.00 mm[Hg] [facility] Apr 12 22:04:55 EDT 2024 Systolic Blood Pressure 122.00 mm[Hg] [facility] Apr 12 22:04:55 EDT 2024 Diastolic Blood Pressure 80.00 mm[Hg] [facility] Apr 12 22:04:55 EDT 2024 Heart Rate 94.00 /min Sat Apr 12 22:04 :55 EDT 2024 Heart Rate 94.00 /min [facility] Apr 12 22:04 :55 EDT 2024 Body weight 212.80 [lb_av] Sat Apr 12 17:09 :01 EDT 2024 Systolic Blood Pressure 119.00 mm[Hg] Sat Apr 12 14:27:00 EDT 2024 Diastolic Blood Pressure 83.00 mm[Hg] [facility] Apr 12 14:27:00 EDT 2024 Heart Rate 98.00 /min Sat Apr 12 14:27 :00 EDT 2024 Systolic Blood Pressure 114.00 mm[Hg] Sat Apr 12 11:56:23 EDT 2024 Diastolic Blood Pressure 66.00 mm[Hg] Sat Apr 12 11:56:23 EDT 2024 Heart Rate 95.00 /min Sat Apr 12 11:56 :23 EDT 2024 Body temperature 98.30 [degF] Sat Apr 12 11:5 6:23 EDT 2024 Respiratory rate 18.00 /min Sat Apr 12 11:5 6:23 EDT 2024 Pulse Oximetry 93.00 % Sat Apr 12 11:56 :23 EDT 2024 Pulse Oximetry 93.00 % [facility] Apr 12 11:56 :23 EDT 2024 Systolic Blood Pressure 104.00 mm[Hg] Sat 12 08:51:15 EDT 2024 Diastolic Blood Pressure 66.00 mm[Hg] Sat Jun 12 08:51:15 EDT 2024 Systolic Blood Pressure 104.00 mm[Hg] Sat Apr 12 08:51:15 EDT 2024 Diastolic Blood Pressure 66.00 mm[Hg] Sat Apr 12 08:51:15 EDT 2024 Heart Rate 95.00 /min Sat 12 08:51 :15 EDT 2024 Heart Rate 95.00 /min Sat 12 08:51 :15 EDT 2024 Systolic Blood Pressure [...] :26 EDT 2024 Pulse Oximetry 95.00 % SatJul 02 23:24 :56 EDT 2024 Systolic Blood Pressure 111.00 mm[Hg] SatJul 02 22:46:18 EDT 2024 Diastolic Blood Pressure 66.00 mm[Hg] SatJul 02 22:46:18 EDT 2024 Heart Rate 99.00 /min SatJul 02 22:46 :18 EDT 2024 Body temperature 98.50 [degF] SatJul 02 22:4 6:18 EDT 2024 Respiratory rate 18.00 /min SatJul 02 22:4 6:18 EDT 2024 Pulse Oximetry 94.00 % SatJul 02 22:46 :18 EDT 2024 Pulse Oximetry 94.00 % SatJul 02 22:46 :18 EDT 2024 Systolic Blood Pressure 111.00 mm[Hg] Johana Apr 10 21:02:29 EDT 2024 Diastolic Blood Pressure 66.00 [...] EDT 2024 Pulse Oximetry 96.00 % Johana Apr 10 09:45 :41 EDT 2024 Pulse Oximetry 96.00 [...] 68.00 mm[Hg] SatJul 01 09:47:44 EDT 2024 Heart Rate 80.00 /min SatJul 01 09:47 :44 EDT 2024 Heart Rate 80.00 /min SatJul 01 09:47 :44 EDT 2024 Systolic Blood Pressure 105.00 mm[Hg] SatJul 01 08:35:51 EDT 2024 Diastolic Blood Pressure 68.00 mm[Hg] SatJul 01 08:35:51 EDT 2024 Heart Rate 80.00 /min SatJul 01 08:35 :51 EDT 2024 Body temperature 98.50 [degF] SatJul 01 08:3 5:51 EDT 2024 Respiratory rate 20.00 /min SatJul 01 08:3 5:51 EDT 2024 Pulse Oximetry 92.00 % SatJul 01 08:35 :51 EDT 2024 Pulse Oximetry 92.00 % SatJul 01 08:35 :51 EDT 2024 Pulse Oximetry 94.00 % SatJul 01 02:40 :12 EDT 2024 Systolic Blood Pressure 109.00 mm[Hg] SatJun 30 20:37:15 EDT 2024 Diastolic Blood Pressure 72.00 mm[Hg] SatJun 30 20:37:15 EDT 2024 Systolic Blood Pressure 109.00 mm[Hg] SatJun 30 20:37:15 EDT 2024 Diastolic Blood Pressure 72.00 mm[Hg] SatJun 30 20:37:15 EDT 2024 Systolic Blood Pressure 109.00 mm[Hg] SatJun 30 20:37:15 EDT 2024 Diastolic Blood Pressure 72.00 mm[Hg] SatJun 30 20:37:15 EDT 2024 Heart Rate 82.00 /min SatJun 30 20:37 :15 EDT 2024 Heart Rate 82.00 /min SatJun 30 20:37 :15 EDT 2024 Heart Rate 82.00 /min SatJun 30 20:37 :15 EDT 2024 Body temperature 97.80 [degF] SatJun 30 20:3 7:15 EDT 2024 Respiratory rate 20.00 /min SatJun 30 20:3 7:15 EDT 2024 Pulse Oximetry 95.00 % SatJun 30 20:37 :15 EDT 2024 Pulse Oximetry 95.00 % SatJun 30 20:37 :15 EDT 2024 Systolic Blood Pressure 105.00 mm[Hg] SatJun 30 14:30:25 EDT 2024 Diastolic Blood Pressure 68.00 mm[Hg] SatJun 30 14:30:25 EDT 2024 Heart Rate 102.00 /min SatJun 30 14:30 :25 EDT 2024 Systolic Blood Pressure 120.00 mm[Hg] SatJun 30 11:13:48 EDT 2024 Diastolic Blood Pressure 73.00 mm[Hg] SatJun 30 11:13:48 EDT 2024 Body weight 214.60 [lb_av] SatJun 30 11:13 :48 EDT 2024 Heart Rate 72.00 /min SatJun 30 11:13 :48 EDT 2024 Body temperature 98.20 [degF] SatJun 30 11:1 3:48 EDT 2024 Respiratory rate 20.00 /min SatJun 30 11:1 3:48 EDT 2024 Pulse Oximetry 93.00 % SatJun 30 11:13 :48 EDT 2024 Pulse Oximetry 93.00 % SatJun 30 11:13 :48 EDT 2024 Systolic Blood Pressure 120.00 mm[Hg] SatJun 30 09:08:10 EDT 2024 Diastolic Blood Pressure 73.00 mm[Hg] SatJun 30 09:08:10 EDT 2024 Systolic Blood Pressure 120.00 mm[Hg] SatJun 30 09:08:10 EDT 2024 Diastolic Blood Pressure 73.00 mm[Hg] SatJun 30 09:08:10 EDT 2024 Systolic Blood Pressure 120.00 mm[Hg] SatJun 30 09:08:10 EDT 2024 Diastolic Blood Pressure 73.00 mm[Hg] SatJun 30 09:08:10 EDT 2024 Heart Rate 72.00 /min SatJun 30 09:08 :10 EDT 2024 Heart Rate 72.00 /min SatJun 30 09:08 :10 EDT 2024 Pulse Oximetry 96.00 % SatJun 30 00:52 :05 EDT 2024 Systolic Blood Pressure 128.00 mm[Hg] SatJun 29 22:31:36 EDT 2024 Diastolic Blood Pressure 79.00 mm[Hg] SatJun 29 22:31:36 EDT 2024 Systolic Blood Pressure 128.00 mm[Hg] SatJun 29 22:31:36 EDT 2024 Diastolic Blood Pressure 79.00 mm[Hg] SatJun 29 22:31:36 EDT 2024 Systolic Blood Pressure 128.00 mm[Hg] SatJun 29 22:31:36 EDT 2024 Diastolic Blood Pressure 79.00 mm[Hg] SatJun 29 22:31:36 EDT 2024 Heart Rate 86.00 /min SatJun 29 22:31 :36 EDT 2024 Heart Rate 86.00 /min SatJun 29 22:31 :36 EDT 2024 Heart Rate 86.00 /min SatJun 29 22:31 :36 EDT 2024 Body temperature 98.40 [degF] SatJun 29 22:3 1:36 EDT 2024 Respiratory rate 18.00 /min SatJun 29 22:3 1:36 EDT 2024 Pulse Oximetry 96.00 % SatJun 29 22:31 :36 EDT 2024 Body weight 219.00 [lb_av] SatJun 29 18:33 :50 EDT 2024 Pulse Oximetry 95.00 % SatJun 29 18:33 :33 EDT 2024 Pulse Oximetry 95.00 % SatJun 29 18:33 :33 EDT 2024 Systolic Blood Pressure 128.00 mm[Hg] SatJun 29 14:21:33 EDT 2024 Diastolic Blood Pressure 80.00 mm[Hg] SatJun 29 14:21:33 EDT 2024 Heart Rate 74.00 /min SatJun 29 14:21 :33 EDT 2024 Systolic Blood Pressure 117.00 mm[Hg] SatJun 29 11:55:35 EDT 2024 Diastolic Blood Pressure 77.00 mm[Hg] SatJun 29 11:55:35 EDT 2024 Heart Rate 77.00 /min SatJun 29 11:55 :35 EDT 2024 Body temperature 98.20 [degF] SatJun 29 11:5 5:35 EDT 2024 Respiratory rate 18.00 /min SatJun 29 11:5 5:35 EDT 2024 Pulse Oximetry 95.00 % SatJun 29 11:55 :35 EDT 2024 Systolic Blood Pressure 117.00 mm[Hg] SatJun 29 09:34:48 EDT 2024 Diastolic Blood Pressure 77.00 mm[Hg] SatJun 29 09:34:48 EDT 2024 Systolic Blood Pressure 117.00 mm[Hg] SatJun 29 09:34:48 EDT 2024 Diastolic Blood Pressure 77.00 mm[Hg] SatJun 29 09:34:48 EDT 2024 Systolic Blood Pressure 117.00 mm[Hg] SatJun 29 09:34:48 EDT 2024 Diastolic Blood Pressure 77.00 mm[Hg] SatJun 29 09:34:48 EDT 2024 Heart Rate 74.00 /min Mon Jun 29 09:34 :48 EDT 2024 Heart Rate 74.00 /min Mon Jun 29 09:34 :48 EDT 2024 Systolic Blood Pressure 117.00 mm[Hg] Sun Jun 28 23:37:51 EDT 2024 Diastolic Blood Pressure 66.00 mm[Hg] Sun Jun 28 23:37:51 EDT 2024 Heart Rate 96.00 /min Sun Jun 28 23:37 :51 EDT 2024 Body temperature 98.30 [degF] Sun Jun 28 23:3 7:51 EDT 2024 Respiratory rate 18.00 /min Sun Jun 28 23:3 7:51 EDT 2024 Pulse Oximetry 96.00 % Sun Jun 28 23:37 :51 EDT 2024 Pulse Oximetry 96.00 % Sun Jun 28 23:37 :51 EDT 2024 Pulse Oximetry 96.00 % Sun Jun 28 23:37 :51 EDT 2024 Systolic Blood Pressure 117.00 mm[Hg] Sun Jun 28 20:34:09 EDT 2024 Diastolic Blood Pressure 66.00 mm[Hg] Sun Jun 28 20:34:09 EDT 2024 Systolic Blood Pressure 117.00 mm[Hg] Sun Jun 28 20:34:09 EDT 2024 Diastolic Blood Pressure 66.00 mm[Hg] Sun Jun 28 20:34:09 EDT 2024 Heart Rate 93.00 /min Sun Jun 28 20:34 :09 EDT 2024 Heart Rate 93.00 /min Sun Jun 28 20:34 :09 EDT 2024 Systolic Blood Pressure 108.00 mm[Hg] Sun Jun 28 15:14:24 EDT 2024 Diastolic Blood Pressure 71.00 mm[Hg] Sun Jun 28 15:14:24 EDT 2024 Heart Rate 85.00 /min Sun Jun 28 15:14 :24 EDT 2024 Body weight 220.20 [lb_av] Sun Jun 28 13:04 :37 EDT 2024 Systolic Blood Pressure 131.00 mm[Hg] Sun Jun 28 10:12:35 EDT 2024 Diastolic Blood Pressure 71.00 mm[Hg] Sun Jun 28 10:12:35 EDT 2024 Heart Rate 92.00 /min Sun Jun 28 10:12 :35 EDT 2024 Body temperature 97.80 [degF] Sun Jun 28 10:1 2:35 EDT 2024 Respiratory rate 20.00 /min Sun Jun 28 10:1 2:35 EDT 2024 Pulse Oximetry 94.00 % Sun Jun 28 10:12 :35 EDT 2024 Pulse Oximetry 94.00 % Sun Jun 28 10:12 :35 EDT 2024 Systolic Blood Pressure 131.00 mm[Hg] Sun Jun 28 09:50:30 EDT 2024 Diastolic Blood Pressure 71.00 mm[Hg] Sun Jun 28 09:50:30 EDT 2024 Systolic Blood Pressure 131.00 mm[Hg] Sun Jun 28 09:50:30 EDT 2024 Diastolic Blood Pressure 71.00 mm[Hg] Sun Jun 28 09:50:30 EDT 2024 Systolic Blood Pressure 131.00 mm[Hg] Sun Jun 28 09:50:30 EDT 2024 Diastolic Blood Pressure 71.00 mm[Hg] Sun Jun 28 09:50:30 EDT 2024 Heart Rate 92.00 /min Sun Jun 28 09:50 :30 EDT 2024 Heart Rate 92.00 /min Sun Jun 28 09:50 :30 EDT 2024 Systolic Blood Pressure 97.00 mm[Hg] Sat Jun 27 23:24:56 EDT 2024 Diastolic Blood Pressure 65.00 mm[Hg] Sat Jun 27 23:24:56 EDT 2024 Heart Rate 102.00 /min Sat Jun 27 23:24 :56 EDT 2024 Body temperature 97.80 [degF] Sat Jun 27 23:2 4:56 EDT 2024 Respiratory rate 18.00 /min Sat Jun 27 23:2 4:56 EDT 2024 Pulse Oximetry 96.00 % Sat Jun 27 23:24 :56 EDT 2024 Pulse Oximetry 96.00 % Sat Jun 27 23:24 :56 EDT 2024 Pulse Oximetry 96.00 % Sat Jun 27 23:24 :56 EDT 2024 Systolic Blood Pressure 97.00 mm[Hg] Sat Jun 05 21:14:47 EDT 2024 Diastolic Blood Pressure 65.00 mm[Hg] Sat Jun 05 21:14:47 EDT 5 Systolic Blood Pressure 97.00 mm[Hg] Sat Jun 05 21:14:47 EDT 5 Diastolic Blood Pressure 65.00 mm[Hg] Sat Jun 05 21:14:47 EDT 5 Heart Rate 102.00 /min Sat Jun 05 21:14 :47 EDT 5 Heart Rate 102.00 /min Sat Jun 05 21:14 :47 EDT 5 Systolic Blood Pressure 105.00 mm[Hg] Sat Apr 05 15:30:10 EDT 5 Diastolic Blood Pressure 63.00 mm[Hg] Sat Jun 05 15:30:10 EDT 5 Heart Rate 65.00 /min Sat Jun 05 15:30 :10 EDT 5 Body weight 219.20 [lb_av] Sat Jun 05 10:10 :33 EDT 2024 Systolic Blood Pressure 134.00 mm[Hg] Sat Jun 05 09:22:55 EDT 5 Diastolic Blood Pressure 91.00 mm[Hg] Sat Jun 05 09:22:55 EDT 5 Systolic Blood Pressure 134.00 mm[Hg] Sat Jun 05 09:22:55 EDT 5 Diastolic Blood Pressure 91.00 mm[Hg] Sat Jun 05 09:22:55 EDT 5 Systolic Blood Pressure 134.00 mm[Hg] Sat Jun 05 09:22:55 EDT 5 Diastolic Blood Pressure 91.00 mm[Hg] Sat Jun 05 09:22:55 EDT 5 Heart Rate 93.00 /min Sat Jun 05 09:22 :55 EDT 5 Heart Rate 93.00 /min Sat Jun 05 09:22 :55 EDT 5 Systolic Blood Pressure 134.00 mm[Hg] Sat Jun 05 09:03:42 EDT 5 Diastolic Blood Pressure 91.00 mm[Hg] Sat Jun 05 09:03:42 EDT 5 Heart Rate 93.00 /min Sat Jun 05 09:03 :42 EDT 5 Body temperature 98.20 [degF] Sat Jun 05 09:0 3:42 EDT 2024 Respiratory rate 20.00 /min Sat Jun 05 09:0 3:42 EDT 2024 Pulse Oximetry 96.00 % Sat Jun 05 09:03 :42 EDT 2024 Pulse Oximetry 96.00 % Sat Jun 05 09:03 :42 EDT 5 Systolic Blood Pressure 118.00 mm[Hg] Sat Jun 27 00:34:04 EDT 2024 Diastolic Blood Pressure 58.00 mm[Hg] Sat Jun 27 00:34:04 EDT 2024 Heart Rate 88.00 /min Sat Jun 27 00:34 :04 EDT 2024 Body temperature 98.20 [degF] Sat Jun 27 00:3 4:04 EDT 2024 Respiratory rate 18.00 /min Sat Jun 27 00:3 4:04 EDT 2024 Pulse Oximetry 94.00 % Sat Jun 27 00:34 :04 EDT 2024 Pulse Oximetry 94.00 % Sat Jun 27 00:34 :04 EDT 2024 Pulse Oximetry 94.00 % Sat Jun 27 00:34 :04 EDT 2024 Systolic Blood Pressure 118.00 mm[Hg] SatJun 26 21:41:54 EDT 2024 Diastolic Blood Pressure 58.00 mm[Hg] SatJun 26 21:41:54 EDT 2024 Systolic Blood Pressure 118.00 mm[Hg] SatJun 26 21:41:54 EDT 2024 Diastolic Blood Pressure 58.00 mm[Hg] SatJun 26 21:41:54 EDT 2024 Heart Rate 88.00 /min SatJun 26 21:41 :54 EDT 2024 Heart Rate 88.00 /min SatJun 26 21:41 :54 EDT 2024 Systolic Blood Pressure 131.00 mm[Hg] SatJun 26 15:16:34 EDT 2024 Diastolic Blood Pressure 92.00 mm[Hg] SatJun 26 15:16:34 EDT 2024 Heart Rate 88.00 /min SatJun 26 15:16 :34 EDT 2024 Body weight 216.60 [lb_av] SatJun 26 13:06 :18 EDT 2024 Systolic Blood Pressure 143.00 mm[Hg] SatJun 26 09:49:20 EDT 2024 Diastolic Blood Pressure 83.00 mm[Hg] SatJun 26 09:49:20 EDT 2024 Systolic Blood Pressure 143.00 mm[Hg] SatJun 26 09:49:20 EDT 2024 Diastolic Blood Pressure 83.00 mm[Hg] SatJun 26 09:49:20 EDT 2024 Systolic Blood Pressure 143.00 mm[Hg] SatJun 26 09:49:20 EDT 2024 Diastolic Blood Pressure 83.00 mm[Hg] SatJun 26 09:49:20 EDT 2024 Systolic Blood Pressure 143.00 mm[Hg] SatJun 26 09:49:20 EDT 2024 Diastolic Blood Pressure 83.00 mm[Hg] SatJun 26 09:49:20 EDT 2024 Heart Rate 100.00 /min SatJun 26 09:49 :20 EDT 2024 Heart Rate 100.00 /min SatJun 26 09:49 :20 EDT 2024 Heart Rate 100.00 /min SatJun 26 09:49 :20 EDT 2024 Body temperature 98.20 [degF] SatJun 26 09:4 9:20 EDT 2024 Respiratory rate 18.00 /min SatJun 26 09:4 9:20 EDT 2024 Pulse Oximetry 94.00 % SatJun 26 09:49 :20 EDT 2024 Pulse Oximetry 94.00 % SatJun 26 09:49 :20 EDT 2024 Pulse Oximetry 92.00 % SatJun 26 06:15 :11 EDT 2024 Systolic Blood Pressure 103.00 mm[Hg] SatJun 26 00:42:14 EDT 2024 Diastolic Blood Pressure 68.00 mm[Hg] SatJun 26 00:42:14 EDT 2024 Heart Rate 76.00 /min SatJun 26 00:42 :14 EDT 2024 Body temperature 98.00 [degF] SatJun 26 00:4 2:14 EDT 2024 Respiratory rate 20.00 /min SatJun 26 00:4 2:14 EDT 2024 Pulse Oximetry 98.00 % SatJun 26 00:42 :14 EDT 2024 Pulse Oximetry 98.00 % SatJun 26 00:42 :14 EDT 2024 Systolic Blood Pressure 103.00 mm[Hg] SatJun 25 22:13:40 EDT 2024 Diastolic Blood Pressure 68.00 mm[Hg] SatJun 25 22:13:40 EDT 2024 Systolic Blood Pressure 103.00 mm[Hg] SatJun 25 22:13:40 EDT 2024 Diastolic Blood Pressure 68.00 mm[Hg] SatJun 25 22:13:40 EDT 2024 Heart Rate 76.00 /min SatJun 25 22:13 :40 EDT 2024 Heart Rate 76.00 /min SatJun 25 22:13 :40 EDT 2024 Systolic Blood Pressure 128.00 mm[Hg] SatJun 25 14:20:14 EDT 2024 Diastolic Blood Pressure 71.00 mm[Hg] Johana Jun 25 14:20:14 EDT 2024 Heart Rate 84.00 /min Johana Jun 25 14:20 :14 EDT 2024 Body weight 219.40 [lb_av] Johana Jun 25 12:57 :15 EDT 2024 Systolic Blood Pressure 127.00 mm[Hg] Johana Jun 25 08:58:17 EDT 2024 Diastolic Blood Pressure 76.00 mm[Hg] Johana Jun 25 08:58:17 EDT 2024 Heart Rate 78.00 /min Johana Jun 25 08:58 :17 EDT 2024 Body temperature 98.70 [degF] Johana Jun 25 08:5 8:17 EDT 2024 Respiratory rate 20.00 /min Johana Jun 25 08:5 8:17 EDT 2024 Pulse Oximetry 90.00 % Johana Jun 25 08:58 :17 EDT 2024 Systolic Blood Pressure 127.00 mm[Hg] Johana Jun 25 08:57:22 EDT 2024 Diastolic Blood Pressure 76.00 mm[Hg] Johana Jun 25 08:57:22 EDT 2024 Systolic Blood Pressure 127.00 mm[Hg] Johana Jun 25 08:57:22 EDT 2024 Diastolic Blood Pressure 76.00 mm[Hg] Johana Jun 25 08:57:22 EDT 2024 Systolic Blood Pressure 127.00 mm[Hg] Johana Jun 25 08:57:22 EDT 2024 Diastolic Blood Pressure 76.00 mm[Hg] Johana Jun 25 08:57:22 EDT 2024 Heart Rate 78.00 /min Johana Jun 25 08:57 :22 EDT 2024 Heart Rate 78.00 /min Johana Jun 25 08:57 :22 EDT 2024 Pulse Oximetry 90.00 % Johana Jun 25 08:50 :08 EDT 2024 Pulse Oximetry 95.00 % SatJun 24 23:22 :04 EDT 2024 Systolic Blood Pressure 119.00 mm[Hg] SatJun 24 20:08:36 EDT 2024 Diastolic Blood Pressure 63.00 mm[Hg] SatJun 24 20:08:36 EDT 2024 Systolic Blood Pressure 119.00 mm[Hg] SatJun 24 20:08:36 EDT 2024 Diastolic Blood Pressure 63.00 mm[Hg] SatJun 24 20:08:36 EDT 2024 Systolic Blood Pressure 119.00 mm[Hg] SatJun 24 20:08:36 EDT 2024 Diastolic Blood Pressure 63.00 mm[Hg] SatJun 24 20:08:36 EDT 2024 Heart Rate 77.00 /min SatJun 24 20:08 :36 EDT 2024 Heart Rate 77.00 /min SatJun 24 20:08 :36 EDT 2024 Heart Rate 77.00 /min SatJun 24 20:08 :36 EDT 2024 Body temperature 98.40 [degF] SatJun 24 20:0 8:36 EDT 2024 Respiratory rate 18.00 /min SatJun 24 20:0 8:36 EDT 2024 Pulse Oximetry 95.00 % SatJun 24 20:08 :36 EDT 2024 Pulse Oximetry 95.00 % SatJun 24 20:08 :36 EDT 2024 Systolic Blood Pressure 134.00 mm[Hg] SatJun 24 14:53:14 EDT 2024 Diastolic Blood Pressure 69.00 mm[Hg] SatJun 24 14:53:14 EDT 2024 Heart Rate 87.00 /min SatJun 24 14:53 :14 EDT 2024 Body weight 219.00 [lb_av] SatJun 24 10:09 :15 EDT 2024 Systolic Blood Pressure 131.00 mm[Hg] SatJun 24 09:15:46 EDT 2024 Diastolic Blood Pressure 51.00 mm[Hg] SatJun 24 09:15:46 EDT 2024 Systolic Blood Pressure 131.00 mm[Hg] SatJun 24 09:15:46 EDT 2024 Diastolic Blood Pressure 51.00 mm[Hg] SatJun 24 09:15:46 EDT 2024 Systolic Blood Pressure 131.00 mm[Hg] SatJun 24 09:15:46 EDT 2024 Diastolic Blood Pressure 51.00 mm[Hg] SatJun 24 09:15:46 EDT 2024 Heart Rate 73.00 /min SatJun 24 09:15 :46 EDT 2024 Heart Rate 73.00 /min SatJun 24 09:15 :46 EDT 2024 Systolic Blood Pressure 131.00 mm[Hg] SatJun 24 08:26:19 EDT 2024 Diastolic Blood Pressure 51.00 mm[Hg] SatJun 24 08:26:19 EDT 2024 Heart Rate 73.00 /min SatJun 24 08:26 :19 EDT 2024 Body temperature 98.30 [degF] SatJun 24 08:2 6:19 EDT 2024 Respiratory rate 18.00 /min SatJun 24 08:2 6:19 EDT 2024 Pulse Oximetry 94.00 % SatJun 24 08:26 :19 EDT 2024 Pulse Oximetry 94.00 % SatJun 24 08:26 :19 EDT 2024 Systolic Blood Pressure 144.00 mm[Hg] SatJun 23 23:34:01 EDT 2024 Diastolic Blood Pressure 82.00 mm[Hg] SatJun 23 23:34:01 EDT 2024 Heart Rate 96.00 /min SatJun 23 23:34 :01 EDT 2024 Body temperature 98.20 [degF] SatJun 23 23:3 4:01 EDT 2024 Respiratory rate 18.00 /min SatJun 23 23:3 4:01 EDT 2024 Pulse Oximetry 96.00 % SatJun 23 23:34 :01 EDT 2024 Pulse Oximetry 96.00 % SatJun 23 23:34 :01 EDT 2024 Pulse Oximetry 96.00 % SatJun 23 23:34 :01 EDT 2024 Systolic Blood Pressure 144.00 mm[Hg] SatJun 23 22:04:17 EDT 2024 Diastolic Blood Pressure 82.00 mm[Hg] SatJun 23 22:04:17 EDT 2024 Systolic Blood Pressure 144.00 mm[Hg] SatJun 23 22:04:17 EDT 2024 Diastolic Blood Pressure 82.00 mm[Hg] SatJun 23 22:04:17 EDT 2024 Heart Rate 82.00 /min SatJun 23 22:04 :17 EDT 2024 Heart Rate 82.00 /min SatJun 23 22:04 :17 EDT 2024 Systolic Blood Pressure 128.00 mm[Hg] SatJun 23 15:46:50 EDT 2024 Diastolic Blood Pressure 72.00 mm[Hg] SatJun 23 15:46:50 EDT 2024 Heart Rate 74.00 /min SatJun 23 15:46 :50 EDT 2024 Body weight 215.40 [lb_av] SatJun 23 10:51 :00 EDT 2024 Systolic Blood Pressure 132.00 mm[Hg] SatJun 23 09:17:03 EDT 2024 Diastolic Blood Pressure 76.00 mm[Hg] SatJun 23 09:17:03 EDT 2024 Systolic Blood Pressure 132.00 mm[Hg] SatJun 23 09:17:03 EDT 2024 Diastolic Blood Pressure 76.00 mm[Hg] SatJun 23 09:17:03 EDT 2024 Systolic Blood Pressure 132.00 mm[Hg] SatJun 23 09:17:03 EDT 2024 Diastolic Blood Pressure 76.00 mm[Hg] SatJun 23 09:17:03 EDT 2024 Heart Rate 93.00 /min SatJun 23 09:17 :03 EDT 2024 Heart Rate 93.00 /min SatJun 23 09:17 :03 EDT 2024 Systolic Blood Pressure 132.00 mm[Hg] SatJun 23 08:28:32 EDT 2024 Diastolic Blood Pressure 76.00 mm[Hg] SatJun 23 08:28:32 EDT 2024 Heart Rate 93.00 /min SatJun 23 08:28 :32 EDT 2024 Body temperature 98.20 [degF] SatJun 23 08:2 8:32 EDT 2024 Respiratory rate 18.00 /min SatJun 23 08:2 8:32 EDT 2024 Pulse Oximetry 95.00 % SatJun 23 08:28 :32 EDT 2024 Pulse Oximetry 95.00 % SatJun 23 08:28 :32 EDT 2024 Pulse Oximetry 92.00 % SatJun 23 05:33 :34 EDT 2024 Systolic Blood Pressure 126.00 mm[Hg] SatJun 23 00:41:08 EDT 2024 Diastolic Blood Pressure 69.00 mm[Hg] SatJun 23 00:41:08 EDT 2024 Heart Rate 73.00 /min SatJun 23 00:41 :08 EDT 2024 Body temperature 98.30 [degF] SatJun 23 00:4 1:08 EDT 2024 Respiratory rate 18.00 /min SatJun 23 00:4 1:08 EDT 2024 Pulse Oximetry 97.00 % SatJun 23 00:41 :08 EDT 2024 Systolic Blood Pressure 126.00 mm[Hg] SatJun 22 21:40:42 EDT 2024 Diastolic Blood Pressure 69.00 mm[Hg] SatJun 22 21:40:42 EDT 2024 Systolic Blood Pressure 126.00 mm[Hg] SatJun 22 21:40:42 EDT 5 Diastolic Blood Pressure 69.00 mm[Hg] SatJun 22 21:40:42 EDT 5 Heart Rate 73.00 /min SatJun 22 21:40 :42 EDT 5 Heart Rate 73.00 /min SatJun 22 21:40 :42 EDT 5 Pulse Oximetry 97.00 % SatJun 22 21:40 :42 EDT 5 Systolic Blood Pressure 121.00 mm[Hg] SatJun 22 15:20:29 EDT 2025 Diastolic Blood Pressure 68.00 mm[Hg] SatJun 22 15:20:29 EDT 5 Heart Rate 75.00 /min SatJun 22 15:20 :29 EDT 5 Systolic Blood Pressure 120.00 mm[Hg] SatJun 22 09:31:26 EDT 5 Diastolic Blood Pressure 82.00 mm[Hg] SatJun 22 09:31:26 EDT 5 Systolic Blood Pressure 120.00 mm[Hg] SatJun 22 09:31:26 EDT 5 Diastolic Blood Pressure 82.00 mm[Hg] SatJun 22 09:31:26 EDT 5 Systolic Blood Pressure 120.00 mm[Hg] SatJun 22 09:31:26 EDT 5 Diastolic Blood Pressure 82.00 mm[Hg] SatJun 22 09:31:26 EDT 5 Systolic Blood Pressure 120.00 mm[Hg] SatJun 22 09:31:26 EDT 5 Diastolic Blood Pressure 82.00 mm[Hg] SatJun 22 09:31:26 EDT 5 Heart Rate 71.00 /min SatJun 22 09:31 :26 EDT 5 Heart Rate 71.00 /min SatJun 22 09:31 :26 EDT 5 Heart Rate 71.00 /min SatJun 22 09:31 :26 EDT 5 Body temperature 98.20 [degF] SatJun 22 09:3 1:26 EDT 5 Respiratory rate 20.00 /min SatJun 22 09:3 1:26 EDT 5 Pulse Oximetry 96.00 % SatJun 22 09:31 :26 EDT 2024 Pulse Oximetry 96.00 % SatJun 22 09:31 :26 EDT 2024 Pulse Oximetry 92.00 % SatJun 22 06:45 :36 EDT 2024 Systolic Blood Pressure 129.00 mm[Hg] SatJun 22 00:00:14 EDT 2024 Diastolic Blood Pressure 78.00 mm[Hg] SatJun 22 00:00:14 EDT 2024 Heart Rate 84.00 /min SatJun 22 00:00 :14 EDT 2024 Body temperature 98.20 [degF] SatJun 22 00:0 0:14 EDT 2024 Respiratory rate 18.00 /min SatJun 22 00:0 0:14 EDT 2024 Pulse Oximetry 95.00 % SatJun 22 00:00 :14 EDT 2024 Systolic Blood Pressure 146.00 mm[Hg] Sun May 30 22:01:53 EDT 2024 Diastolic Blood Pressure 86.00 mm[Hg] Sat 30 22:01:53 EDT 2024 Systolic Blood Pressure 146.00 mm[Hg] Sat 30 22:01:53 EDT 2024 Diastolic Blood Pressure 86.00 mm[Hg] Sat 30 22:01:53 EDT 2024 Heart Rate 84.00 /min Sat 30 22:01 :53 EDT 2024 Heart Rate 84.00 /min SatJun 21 22:01 :53 EDT 2024 Pulse Oximetry 95.00 % Sat 30 22:01 :53 EDT 2024 Systolic Blood Pressure 130.00 mm[Hg] Sat 30 15:07:33 EDT 2024 Diastolic Blood Pressure 91.00 mm[Hg] Sat 30 15:07:33 EDT 2024 Heart Rate 85.00 /min Sat 30 15:07 :33 EDT 2024 Body weight 214.20 [lb_av] Sat 30 12:51 :03 EDT 2024 Systolic Blood Pressure 106.00 mm[Hg] SatJun 21 09:29:04 EDT 2024 Diastolic Blood Pressure 64.00 mm[Hg] SatJun 21 09:29:04 EDT 2024 Heart Rate 73.00 /min Sat 30 09:29 :04 EDT 2024 Body temperature 98.30 [degF] SatJun 21 09:2 9:04 EDT 2024 Respiratory rate 20.00 /min Sat 30 09:2 9:04 EDT 2024 Pulse Oximetry 94.00 % Sat 30 09:29 :04 EDT 2024 Pulse Oximetry 94.00 % Sun Mar 30 09:29 :04 EDT 2024 Systolic Blood Pressure 106.00 mm[Hg] Sun Mar 30 09:15:29 EDT 5 Diastolic Blood Pressure 64.00 mm[Hg] Sun Mar 30 09:15:29 EDT 5 Systolic Blood Pressure 106.00 mm[Hg] Sun Mar 30 09:15:29 EDT 5 Diastolic Blood Pressure 64.00 mm[Hg] Sun Mar 30 09:15:29 EDT 5 Systolic Blood Pressure 106.00 mm[Hg] Sun Mar 30 09:15:29 EDT 2024 Diastolic Blood Pressure 64.00 mm[Hg] Sun Mar 30 09:15:29 EDT 2024 Heart Rate 73.00 /min Sun Mar 30 09:15 :29 EDT 5 Heart Rate 73.00 /min Sun Mar 30 09:15 :29 EDT 2024 Pulse Oximetry 93.00 % Sun Mar 30 04:39 :52 EDT 2024 Systolic Blood Pressure 133.00 mm[Hg] Sat Mar 29 23:58:36 EDT 2024 Diastolic Blood Pressure 80.00 mm[Hg] Sat Mar 29 23:58:36 EDT 2024 Heart Rate 102.00 /min Sat Mar 29 23:58 :36 EDT 2024 Body temperature 98.30 [degF] Sat Mar 29 23:5 8:36 EDT 2024 Respiratory rate 16.00 /min Sat Mar 29 23:5 8:36 EDT 2024 Pulse Oximetry 91.00 % Sat Mar 29 23:58 :36 EDT 2024 Pulse Oximetry 91.00 % Sat Mar 29 23:58 :36 EDT 2024 Systolic Blood Pressure 133.00 mm[Hg] Sat Mar 29 21:57:12 EDT 2024 Diastolic Blood Pressure 80.00 mm[Hg] Sat Mar 29 21:57:12 EDT 2024 Systolic Blood Pressure 133.00 mm[Hg] Sat Mar 29 21:57:12 EDT 2024 Diastolic Blood Pressure 80.00 mm[Hg] Sat Mar 29 21:57:12 EDT 2024 Heart Rate 102.00 /min Sat Mar 29 21:57 :12 EDT 2024 Heart Rate 102.00 /min Sat Mar 29 21:57 :12 EDT 2024 Systolic Blood Pressure 105.00 mm[Hg] Sat Mar 29 14:50:50 EDT 2024 Diastolic Blood Pressure 71.00 mm[Hg] Sat Mar 29 14:50:50 EDT 2024 Heart Rate 73.00 /min Sat Mar 29 14:50 :50 EDT 2025 Systolic Blood Pressure 122.00 mm[Hg] Sat May 29 10:51:53 EDT 2024 Diastolic Blood Pressure 83.00 mm[Hg] Sat Jun 20 10:51:53 EDT 2024 Body weight 212.20 [lb_av] Sat May 29 10:51 :53 EDT 2024 Heart Rate 94.00 /min Sat Jun 20 10:51 :53 EDT 2024 Body temperature 98.50 [degF] Sat Jun 20 10:5 1:53 EDT 2024 Respiratory rate 20.00 /min Sat Jun 20 10:5 1:53 EDT 2024 Pulse Oximetry 95.00 % Sat Jun 20 10:51 :53 EDT 2024 Pulse Oximetry 95.00 % Sat Jun 20 10:51 :53 EDT 2024 Systolic Blood Pressure 122.00 mm[Hg] Sat May 29 08:45:14 EDT 2024 Diastolic Blood Pressure 83.00 mm[Hg] Sat May 29 08:45:14 EDT 2024 Systolic Blood Pressure 122.00 mm[Hg] Sat Jun 20 08:45:14 EDT 2024 Diastolic Blood Pressure 83.00 mm[Hg] Sat Jun 20 08:45:14 EDT 2024 Systolic Blood Pressure 122.00 mm[Hg] Sat Jun 20 08:45:14 EDT 2024 Diastolic Blood Pressure 83.00 mm[Hg] Sat Jun 20 08:45:14 EDT 2024 Heart Rate 94.00 /min Sat Jun 20 08:45 :14 EDT 2024 Heart Rate 94.00 /min Sat Jun 20 08:45 :14 EDT 2024 Systolic Blood Pressure 100.00 mm[Hg] Sat May 29 00:18:31 EDT 2024 Diastolic Blood Pressure 58.00 mm[Hg] Sat Jun 20 00:18:31 EDT 2024 Heart Rate 86.00 /min Sat Jun 20 00:18 :31 EDT 2024 Body temperature 98.20 [degF] Sat Jun 20 00:1 8:31 EDT 2024 Respiratory rate 20.00 /min Sat Jun 20 00:1 8:31 EDT 2024 Pulse Oximetry 95.00 % Sat Jun 20 00:18 :31 EDT 2024 Pulse Oximetry 95.00 % Sat Jun 20 00:18 :31 EDT 2024 Systolic Blood Pressure 100.00 mm[Hg] Fri Jun 19 21:22:03 EDT 2025 Diastolic Blood Pressure 58.00 mm[Hg] SatJun 19 21:22:03 EDT 5 Systolic Blood Pressure 100.00 mm[Hg] SatJun 19 21:22:03 EDT 2024 Diastolic Blood Pressure 58.00 mm[Hg] SatJun 19 21:22:03 EDT 2024 Heart Rate 86.00 /min SatJun 19 21:22 :03 EDT 2024 Heart Rate 86.00 /min SatJun 19 21:22 :03 EDT 2024 Pulse Oximetry 95.00 % SatJun 19 21:22 :03 EDT 2024 Body Height 65.00 [in_i] SatJun 19 16:40 :08 EDT 2024 Systolic Blood Pressure 127.00 mm[Hg] SatJun 19 15:16:00 EDT 2024 Diastolic Blood Pressure 84.00 mm[Hg] SatJun 19 15:16:00 EDT 2024 Heart Rate 104.00 /min SatJun 19 15:16 :00 EDT 2024 Body weight 211.80 [lb_av] SatJun 19 12:57 :46 EDT 5 Systolic Blood Pressure 130.00 mm[Hg] SatJun 19 09:29:25 EDT 5 Diastolic Blood Pressure 79.00 mm[Hg] SatJun 19 09:29:25 EDT 5 Systolic Blood Pressure 130.00 mm[Hg] SatJun 19 09:29:25 EDT 5 Diastolic Blood Pressure 79.00 mm[Hg] SatJun 19 09:29:25 EDT 5 Systolic Blood Pressure 130.00 mm[Hg] SatJun 19 09:29:25 EDT 5 Diastolic Blood Pressure 79.00 mm[Hg] SatJun 19 09:29:25 EDT 5 Heart Rate 94.00 /min SatJun 19 09:29 :25 EDT 5 Heart Rate 94.00 /min SatJun 19 09:29 :25 EDT 5 Systolic Blood Pressure 130.00 mm[Hg] SatJun 19 08:29:50 EDT 2024 Diastolic Blood Pressure 79.00 mm[Hg] SatJun 19 08:29:50 EDT 5 Heart Rate 94.00 /min SatJun 19 08:29 :50 EDT 2024 Body temperature 97.90 [degF] SatJun 19 08:2 9:50 EDT 5 Respiratory rate 20.00 /min SatJun 19 08:2 9:50 EDT 2024 Pulse Oximetry 91.00 % SatJun 19 08:29 :50 EDT 2024 Pulse Oximetry 91.00 % SatJun 19 08:29 :50 EDT 2024 Pulse Oximetry 96.00 % SatJun 19 04:00 :09 EDT 2024 Systolic Blood Pressure 127.00 mm[Hg] SatJun 19 00:46:34 EDT 2024 Diastolic Blood Pressure 75.00 mm[Hg] SatJun 19 00:46:34 EDT 2024 Heart Rate 73.00 /min SatJun 19 00:46 :34 EDT 2024 Body temperature 98.00 [degF] SatJun 19 00:4 6:34 EDT 2024 Respiratory rate 20.00 /min SatJun 19 00:4 6:34 EDT 2024 Pulse Oximetry 98.00 % SatJun 19 00:46 :34 EDT 2024 Pulse Oximetry 98.00 % SatJun 19 00:46 :34 EDT 2024 Systolic Blood Pressure 127.00 mm[Hg] SatJun 18 22:07:32 EDT 2024 Diastolic Blood Pressure 75.00 mm[Hg] SatJun 18 22:07:32 EDT 2024 Systolic Blood Pressure 127.00 mm[Hg] SatJun 18 22:07:32 EDT 2024 Diastolic Blood Pressure 75.00 mm[Hg] SatJun 18 22:07:32 EDT 2024 Heart Rate 73.00 /min SatJun 18 22:07 :32 EDT 2024 Heart Rate 73.00 /min SatJun 18 22:07 :32 EDT 2024 Systolic Blood Pressure 109.00 mm[Hg] SatJun 18 15:42:35 EDT 2024 Diastolic Blood Pressure 82.00 mm[Hg] Johana Jun 18 15:42:35 EDT 2024 Heart Rate 94.00 /min SatJun 18 15:42 :35 EDT 2024 Body weight 212.60 [lb_av] SatJun 18 12:40 :31 EDT 2024 Systolic Blood Pressure 117.00 mm[Hg] SatJun 18 10:26:48 EDT 2024 Diastolic Blood Pressure 51.00 mm[Hg] SatJun 18 10:26:48 EDT 2024 Heart Rate 94.00 /min SatJun 18 10:26 :48 EDT 2024 Body temperature 97.90 [degF] Johana Jun 18 10:2 6:48 EDT 2024 Respiratory rate 20.00 /min SatJun 18 10:2 6:48 EDT 2024 Pulse Oximetry 92.00 % SatJun 18 10:26 :48 EDT 2024 Pulse Oximetry 92.00 % SatJun 18 10:26 :48 EDT 2024 Systolic Blood Pressure 117.00 mm[Hg] Johana Jun 18 09:47:03 EDT 2024 Diastolic Blood Pressure 51.00 mm[Hg] Johana Jun 18 09:47:03 EDT 2024 Systolic Blood Pressure 117.00 mm[Hg] Johana Jun 18 09:47:03 EDT 2024 Diastolic Blood Pressure 51.00 mm[Hg] Johana Jun 18 09:47:03 EDT 2024 Systolic Blood Pressure 117.00 mm[Hg] Johana Jun 18 09:47:03 EDT 2024 Diastolic Blood Pressure 51.00 mm[Hg] Johana Jun 18 09:47:03 EDT 2024 Heart Rate 94.00 /min Johana Jun 18 09:47 :03 EDT 2024 Heart Rate 94.00 /min Johana Jun 18 09:47 :03 EDT 2024 Pulse Oximetry 100.00 % SatJun 17 23:02 :24 EDT 2024 Systolic Blood Pressure 135.00 mm[Hg] SatJun 17 22:17:36 EDT 2024 Diastolic Blood Pressure 95.00 mm[Hg] SatJun 17 22:17:36 EDT 2024 Heart Rate 94.00 /min SatJun 17 22:17 :36 EDT 2024 Body temperature 98.20 [degF] SatJun 17 22:1 7:36 EDT 2024 Respiratory rate 19.00 /min SatJun 17 22:1 7:36 EDT 2024 Pulse Oximetry 100.00 % SatJun 17 22:17 :36 EDT 2024 Systolic Blood Pressure 135.00 mm[Hg] SatJun 17 20:56:20 EDT 2024 Diastolic Blood Pressure 95.00 mm[Hg] SatJun 17 20:56:20 EDT 2024 Systolic Blood Pressure 135.00 mm[Hg] SatJun 17 20:56:20 EDT 2024 Diastolic Blood Pressure 95.00 mm[Hg] SatJun 17 20:56:20 EDT 2024 Heart Rate 94.00 /min SatJun 17 20:56 :20 EDT 2024 Heart Rate 94.00 /min SatJun 17 20:56 :20 EDT 2024 Body weight 211.40 [lb_av] SatJun 17 17:41 :43 EDT 2024 Systolic Blood Pressure 137.00 mm[Hg] SatJun 17 15:55:21 EDT 2024 Diastolic Blood Pressure 85.00 mm[Hg] SatJun 17 15:55:21 EDT 2024 Heart Rate 72.00 /min SatJun 17 15:55 :21 EDT 2024 Body Height 64.00 [in_i] SatJun 17 14:51 :18 EDT 2024 Systolic Blood Pressure 91.00 mm[Hg] SatJun 17 13:47:06 EDT 2024 Diastolic Blood Pressure 56.00 mm[Hg] SatJun 17 13:47:06 EDT 2024 Heart Rate 92.00 /min SatJun 17 13:47 :06 EDT 2024 Body temperature 98.30 [degF] SatJun 17 13:4 7:06 EDT 2024 Respiratory rate 18.00 /min SatJun 17 13:4 7:06 EDT 2024 Pulse Oximetry 99.00 % SatJun 17 13:47 :06 EDT 2024 Systolic Blood Pressure 91.00 mm[Hg] SatJun 17 10:21:07 EDT 2024 Diastolic Blood Pressure 56.00 mm[Hg] SatJun 17 10:21:07 EDT 2024 Systolic Blood Pressure 91.00 mm[Hg] SatJun 17 10:21:07 EDT 2024 Diastolic Blood Pressure 56.00 mm[Hg] SatJun 17 10:21:07 EDT 2024 Systolic Blood Pressure 91.00 mm[Hg] SatJun 17 10:21:07 EDT 2024 Diastolic Blood Pressure 56.00 mm[Hg] SatJun 17 10:21:07 EDT 2024 Systolic Blood Pressure 127.00 mm[Hg] SatJun 16 23:31:08 EDT 2024 Diastolic Blood Pressure 75.00 mm[Hg] SatJun 16 23:31:08 EDT 2024 Heart Rate 69.00 /min SatJun 16 23:31 :08 EDT 2024 Body temperature 98.50 [degF] SatJun 16 23:3 1:08 EDT 2024 Respiratory rate 18.00 /min SatJun 16 23:3 1:08 EDT 2024 Pulse Oximetry 95.00 % SatJun 16 23:31 :08 EDT 2024 Systolic Blood Pressure 127.00 mm[Hg] SatJun 16 21:50:09 EDT 2024 Diastolic Blood Pressure 75.00 mm[Hg] SatJun 16 21:50:09 EDT 2024 Systolic Blood Pressure 106.00 mm[Hg] SatJun 16 17:19:13 EDT 2024 Diastolic Blood Pressure 66.00 mm[Hg] SatJun 16 17:19:13 EDT 2024 Heart Rate 89.00 /min SatJun 16 17:19 :13 EDT 2024 Body weight 212.20 [lb_av] SatJun 16 17:19 :13 EDT 2024 Body temperature 97.10 [degF] SatJun 16 17:1 9:13 EDT 2024 Respiratory rate 20.00 /min SatJun 16 17:1 9:13 EDT 2024 Pulse Oximetry 97.00 % SatJun 16 17:19 :13 EDT 2024 Body weight 212.20 [lb_av] SatJun 16 16:58 :00 EDT 2024 Body weight 200.00 [lb_av] SatSep 02 15:11 :41 EDT 2023 Systolic Blood Pressure 113.00 mm[Hg] SatSep 02 10:36:25 EDT 2023 Diastolic Blood Pressure 73.00 mm[Hg] SatSep 02 10:36:25 EDT 2023 Heart Rate 90.00 /min SatSep 02 10:36 :25 EDT 2023 Body temperature 97.60 [degF] SatSep 02 10:3 6:25 EDT 2023 Respiratory rate 20.00 /min SatSep 02 10:3 6:25 EDT 2023 Pulse Oximetry 95.00 % SatSep 02 10:36 :25 EDT 2023 Systolic Blood Pressure 113.00 mm[Hg] SatSep 02 09:36:54 EDT 2023 Diastolic Blood Pressure 73.00 mm[Hg] SatSep 02 09:36:54 EDT 2023 Systolic Blood Pressure 113.00 mm[Hg] SatSep 02 09:36:54 EDT 2023 Diastolic Blood Pressure 73.00 mm[Hg] SatSep 02 09:36:54 EDT 2023 Heart Rate 90.00 /min Tue Clemente 11 09:36 :54 EDT 4 Systolic Blood Pressure 122.00 mm[Hg] Pavithra Clemente 10 22:45:16 EDT 4 Diastolic Blood Pressure 83.00 mm[Hg] Pavithra Clemente 10 22:45:16 EDT 2023 Heart Rate 89.00 /min Pavithra Clemente 10 22:45 :16 EDT 2023 Body temperature 98.50 [degF] Pavithra Clemente 10 22:4 5:16 EDT 2023 Respiratory rate 20.00 /min Pavithra Clemente 10 22:4 5:16 EDT 2023 Pulse Oximetry 96.00 % Pavithra Clemente 10 22:45 :16 EDT 2023 Systolic Blood Pressure 122.00 mm[Hg] Pavithra Clemente 10 20:42:01 EDT 2023 Diastolic Blood Pressure 83.00 mm[Hg] Pvaithra Clemente 10 20:42:01 EDT 2023 Systolic Blood Pressure 122.00 mm[Hg] Pavithra Clemente 10 20:42:01 EDT 2023 Diastolic Blood Pressure 83.00 mm[Hg] Pavithra Clemente 10 20:42:01 EDT 2023 Heart Rate 89.00 /min Pavithra Clemente 10 20:42 :01 EDT 2023 Body weight 199.80 [lb_av] Pavithra Clemente 10 13:25 :25 EDT 4 Systolic Blood Pressure 143.00 mm[Hg] Pavithra Clemente 10 10:33:02 EDT 2023 Diastolic Blood Pressure 87.00 mm[Hg] Pavithra Clemente 10 10:33:02 EDT 2023 Systolic Blood Pressure 143.00 mm[Hg] Pavithra Clemente 10 10:33:02 EDT 2023 Diastolic Blood Pressure 87.00 mm[Hg] Pavithra Clemente 10 10:33:02 EDT 2023 Systolic Blood Pressure 143.00 mm[Hg] Pavithra Clemente 10 10:33:02 EDT 2023 Diastolic Blood Pressure 87.00 mm[Hg] Pavithra Clemente 10 10:33:02 EDT 2023 Heart Rate 60.00 /min Pavithra Clemente 10 10:33 :02 EDT 2023 Heart Rate 60.00 /min Pavithra Clemente 10 10:33 :02 EDT 2023 Body temperature 98.80 [degF] Pavithra Clemente 10 10:3 3:02 EDT 2023 Respiratory rate 20.00 /min Pavithra Clemente 10 10:3 3:02 EDT 2023 Pulse Oximetry 97.00 % Pavithra Clemente 10 10:33 :02 EDT 2023 Systolic Blood Pressure 101.00 mm[Hg] SatAug 31 22:44:55 EDT 4 Diastolic Blood Pressure 84.00 mm[Hg] SatAug 31 22:44:55 EDT 4 Heart Rate 92.00 /min SatAug 31 22:44 :55 EDT 2023 Body temperature 98.70 [degF] SatAug 31 22:4 4:55 EDT 2023 Respiratory rate 18.00 /min SatAug 31 22:4 4:55 EDT 2023 Pulse Oximetry 95.00 % SatAug 31 22:44 :55 EDT 2023 Systolic Blood Pressure 101.00 mm[Hg] SatAug 31 20:38:45 EDT 2023 Diastolic Blood Pressure 84.00 mm[Hg] SatAug 31 20:38:45 EDT 2023 Systolic Blood Pressure 101.00 mm[Hg] SatAug 31 20:38:45 EDT 2023 Diastolic Blood Pressure 84.00 mm[Hg] SatAug 31 20:38:45 EDT 2023 Heart Rate 92.00 /min SatAug 31 20:38 :45 EDT 2023 Body weight 200.00 [lb_av] SatAug 31 12:48 :50 EDT 4 Systolic Blood Pressure 136.00 mm[Hg] SatAug 31 09:10:45 EDT 2023 Diastolic Blood Pressure 85.00 mm[Hg] SatAug 31 09:10:45 EDT 2023 Systolic Blood Pressure 136.00 mm[Hg] SatAug 31 09:10:45 EDT 2023 Diastolic Blood Pressure 85.00 mm[Hg] SatAug 31 09:10:45 EDT 2023 Systolic Blood Pressure 136.00 mm[Hg] SatAug 31 09:10:45 EDT 2023 Diastolic Blood Pressure 85.00 mm[Hg] SatAug 31 09:10:45 EDT 4 Heart Rate 89.00 /min SatAug 31 09:10 :45 EDT 4 Heart Rate 89.00 /min SatAug 31 09:10 :45 EDT 4 Body temperature 98.00 [degF] SatAug 31 09:1 0:45 EDT 2023 Respiratory rate 20.00 /min SatAug 31 09:1 0:45 EDT 2023 Pulse Oximetry 99.00 % SatAug 31 09:10 :45 EDT 2023 Systolic Blood Pressure 108.00 mm[Hg] Sat 08 23:19:57 EDT 2024 Diastolic Blood Pressure 64.00 mm[Hg] Sat Aug 08 23:19:57 EDT 4 Heart Rate 93.00 /min Sat Aug 08 23:19 :57 EDT 4 Body temperature 98.70 [degF] Sat Clemente 08 23:1 9:57 EDT 4 Respiratory rate 18.00 /min Sat Aug 08 23:1 9:57 EDT 4 Pulse Oximetry 90.00 % Sat Clemente 08 23:19 :57 EDT 4 Systolic Blood Pressure 108.00 mm[Hg] Sat Clemente 08 21:03:18 EDT 4 Diastolic Blood Pressure 64.00 mm[Hg] Sat Clemente 08 21:03:18 EDT 4 Systolic Blood Pressure 108.00 mm[Hg] Sat Clemente 08 21:03:18 EDT 2023 Diastolic Blood Pressure 64.00 mm[Hg] Sat Clemente 08 21:03:18 EDT 2023 Heart Rate 93.00 /min Sat Clemente 08 21:03 :18 EDT 4 Body weight 201.00 [lb_av] Sat Aug 08 11:57 :53 EDT 2023 Systolic Blood Pressure 125.00 mm[Hg] Sat Aug 08 08:12:00 EDT 4 Diastolic Blood Pressure 83.00 mm[Hg] Sat Aug 08 08:12:00 EDT 4 Systolic Blood Pressure 125.00 mm[Hg] Sat Aug 08 08:12:00 EDT 2023 Diastolic Blood Pressure 83.00 mm[Hg] [facility] Aug 08 08:12:00 EDT 4 Systolic Blood Pressure 125.00 mm[Hg] [facility] Aug 08 08:12:00 EDT 4 Diastolic Blood Pressure 83.00 mm[Hg] Sat Aug 08 08:12:00 EDT 4 Heart Rate 86.00 /min Sat Aug 08 08:12 :00 EDT 4 Heart Rate 86.00 /min [facility] Aug 08 08:12 :00 EDT 4 Body temperature 98.50 [degF] Sat Aug 08 08:1 2:00 EDT 4 Respiratory rate 20.00 /min Sat Aug 08 08:1 2:00 EDT 4 Pulse Oximetry 95.00 % [facility] Aug 08 08:12 :00 EDT 4 Systolic Blood Pressure 120.00 mm[Hg] Fri Aug 29 21:22:08 EDT 2023 Diastolic Blood Pressure 72.00 mm[Hg] Fri Aug 29 21:22:08 EDT 2023 Systolic Blood Pressure 120.00 mm[Hg] SatAug 29 21:22:08 EDT 2023 Diastolic Blood Pressure 72.00 mm[Hg] SatAug 29 21:22:08 EDT 2023 Heart Rate 78.00 /min SatAug 29 21:22 :08 EDT 2023 Systolic Blood Pressure 120.00 mm[Hg] SatAug 29 20:14:06 EDT 2023 Diastolic Blood Pressure 72.00 mm[Hg] SatAug 29 20:14:06 EDT 2023 Heart Rate 78.00 /min SatAug 29 20:14 :06 EDT 2023 Body temperature 98.20 [degF] SatAug 29 20:1 4:06 EDT 2023 Respiratory rate 20.00 /min SatAug 29 20:1 4:06 EDT 2023 Pulse Oximetry 4.00 % SatAug 29 20:14 :06 EDT 2023 Body weight 203.80 [lb_av] SatAug 29 13:04 :39 EDT 2023 Systolic Blood Pressure 125.00 mm[Hg] SatAug 29 09:56:29 EDT 2023 Diastolic Blood Pressure 86.00 mm[Hg] SatAug 29 09:56:29 EDT 2023 Systolic Blood Pressure 125.00 mm[Hg] SatAug 29 09:56:29 EDT 2023 Diastolic Blood Pressure 86.00 mm[Hg] SatAug 29 09:56:29 EDT 2023 Systolic Blood Pressure 125.00 mm[Hg] SatAug 29 09:56:29 EDT 2023 Diastolic Blood Pressure 86.00 mm[Hg] SatAug 29 09:56:29 EDT 2023 Heart Rate 75.00 /min SatAug 29 09:56 :29 EDT 2023 Heart Rate 75.00 /min SatAug 29 09:56 :29 EDT 2023 Body temperature 98.00 [degF] SatAug 29 09:5 6:29 EDT 2023 Respiratory rate 20.00 /min SatAug 29 09:5 6:29 EDT 2023 Pulse Oximetry 92.00 % SatAug 29 09:56 :29 EDT 2023 Systolic Blood Pressure 111.00 mm[Hg] SatAug 28 20:12:28 EDT 2023 Diastolic Blood Pressure 73.00 mm[Hg] SatAug 28 20:12:28 EDT 2023 Systolic Blood Pressure 111.00 mm[Hg] Johana Clemente 06 20:12:28 EDT 2023 Diastolic Blood Pressure 73.00 mm[Hg] Sat 06 20:12:28 EDT 2023 Systolic Blood Pressure 111.00 mm[Hg] Sat 06 20:12:28 EDT 2023 Diastolic Blood Pressure 73.00 mm[Hg] Johanaaug 06 20:12:28 EDT 2023 Heart Rate 98.00 /min Sat 06 20:12 :28 EDT 2023 Heart Rate 98.00 /min Johanaaug 06 20:12 :28 EDT 2023 Body temperature 98.50 [degF] Sat 06 20:1 2:28 EDT 2023 Respiratory rate 16.00 /min SatAug 28 20:1 2:28 EDT 2023 Pulse Oximetry 92.00 % SatAug 28 20:12 :28 EDT 2023 Body weight 205.00 [lb_av] SatAug 28 12:39 :09 EDT 2023 Systolic Blood Pressure 116.00 mm[Hg] SatAug 28 09:23:53 EDT 2023 Diastolic Blood Pressure 81.00 mm[Hg] Johanaaug 06 09:23:53 EDT 2023 Heart Rate 90.00 /min Johana Aug 28 09:23 :53 EDT 2023 Body temperature 96.80 [degF] Johanaaug 06 09:2 3:53 EDT 2023 Respiratory rate 20.00 /min Sat 06 09:2 3:53 EDT 2023 Pulse Oximetry 94.00 % Sat 06 09:23 :53 EDT 2023 Systolic Blood Pressure 116.00 mm[Hg] Sat 06 09:22:03 EDT 2023 Diastolic Blood Pressure 81.00 mm[Hg] Sat 06 09:22:03 EDT 2023 Systolic Blood Pressure 116.00 mm[Hg] Sat 06 09:22:03 EDT 2023 Diastolic Blood Pressure 81.00 mm[Hg] Sat 06 09:22:03 EDT 2023 Heart Rate 90.00 /min Sat 06 09:22 :03 EDT 2023 Systolic Blood Pressure 128.00 mm[Hg] SatAug 27 20:14:00 EDT 2023 Diastolic Blood Pressure 88.00 mm[Hg] SatAug 27 20:14:00 EDT 2024 Systolic Blood Pressure 128.00 mm[Hg] SatAug 27 20:14:00 EDT 2023 Diastolic Blood Pressure 88.00 mm[Hg] SatAug 27 20:14:00 EDT 2023 Systolic Blood Pressure 128.00 mm[Hg] SatAug 27 20:14:00 EDT 2023 Diastolic Blood Pressure 88.00 mm[Hg] SatAug 27 20:14:00 EDT 2023 Heart Rate 77.00 /min SatAug 27 20:14 :00 EDT 2023 Heart Rate 77.00 /min SatAug 27 20:14 :00 EDT 2023 Body temperature 98.70 [degF] SatAug 27 20:1 4:00 EDT 2023 Respiratory rate 16.00 /min SatAug 27 20:1 4:00 EDT 2023 Pulse Oximetry 97.00 % SatAug 27 20:14 :00 EDT 2023 Body weight 206.80 [lb_av] SatAug 27 10:14 :29 EDT 2023 Systolic Blood Pressure 152.00 mm[Hg] SatAug 27 09:20:19 EDT 2023 Diastolic Blood Pressure 92.00 mm[Hg] SatAug 27 09:20:19 EDT 2023 Systolic Blood Pressure 152.00 mm[Hg] SatAug 27 09:20:19 EDT 2023 Diastolic Blood Pressure 92.00 mm[Hg] SatAug 27 09:20:19 EDT 2023 Systolic Blood Pressure 152.00 mm[Hg] SatAug 27 09:20:19 EDT 2023 Diastolic Blood Pressure 92.00 mm[Hg] SatAug 27 09:20:19 EDT 2023 Heart Rate 84.00 /min SatAug 27 09:20 :19 EDT 2023 Heart Rate 84.00 /min SatAug 27 09:20 :19 EDT 2023 Body temperature 98.50 [degF] SatAug 27 09:2 0:19 EDT 2023 Respiratory rate 20.00 /min SatAug 27 09:2 0:19 EDT 2023 Pulse Oximetry 96.00 % SatAug 27 09:20 :19 EDT 2023 Systolic Blood Pressure 166.00 mm[Hg] SatAug 26 23:41:44 EDT 2023 Diastolic Blood Pressure 93.00 mm[Hg] SatAug 26 23:41:44 EDT 2023 Heart Rate 96.00 /min SatAug 26 23:41 :44 EDT 2024 Body temperature 97.30 [degF] SatAug 26 23:4 1:44 EDT 4 Respiratory rate 20.00 /min SatAug 26 23:4 1:44 EDT 4 Pulse Oximetry 95.00 % SatAug 26 23:41 :44 EDT 4 Systolic Blood Pressure 166.00 mm[Hg] SatAug 26 20:32:59 EDT 4 Diastolic Blood Pressure 93.00 mm[Hg] SatAug 26 20:32:59 EDT 2023 Systolic Blood Pressure 166.00 mm[Hg] SatAug 26 20:32:59 EDT 2023 Diastolic Blood Pressure 93.00 mm[Hg] SatAug 26 20:32:59 EDT 2023 Heart Rate 96.00 /min SatAug 26 20:32 :59 EDT 4 Body weight 206.80 [lb_av] SatAug 26 12:50 :14 EDT 2023 Systolic Blood Pressure 129.00 mm[Hg] SatAug 26 08:49:53 EDT 2023 Diastolic Blood Pressure 88.00 mm[Hg] SatAug 26 08:49:53 EDT 4 Heart Rate 76.00 /min SatAug 26 08:49 :53 EDT 4 Body temperature 98.40 [degF] SatAug 26 08:4 9:53 EDT 4 Respiratory rate 20.00 /min SatAug 26 08:4 9:53 EDT 4 Pulse Oximetry 95.00 % SatAug 26 08:49 :53 EDT 2023 Systolic Blood Pressure 129.00 mm[Hg] SatAug 26 08:49:13 EDT 2023 Diastolic Blood Pressure 88.00 mm[Hg] SatAug 26 08:49:13 EDT 4 Systolic Blood Pressure 129.00 mm[Hg] SatAug 26 08:49:13 EDT 2023 Diastolic Blood Pressure 88.00 mm[Hg] SatAug 26 08:49:13 EDT 2023 Heart Rate 76.00 /min SatAug 26 08:49 :13 EDT 2023 Systolic Blood Pressure 93.00 mm[Hg] SatAug 25 21:40:31 EDT 2023 Diastolic Blood Pressure 65.00 mm[Hg] SatAug 25 21:40:31 EDT 2023 Heart Rate 81.00 /min SatAug 25 21:40 :31 EDT 2024 Body temperature 98.10 [degF] SatAug 25 21:4 0:31 EDT 4 Respiratory rate 16.00 /min SatAug 25 21:4 0:31 EDT 4 Pulse Oximetry 97.00 % SatAug 25 21:40 :31 EDT 4 Systolic Blood Pressure 93.00 mm[Hg] SatAug 25 20:08:08 EDT 4 Diastolic Blood Pressure 59.00 mm[Hg] SatAug 25 20:08:08 EDT 4 Systolic Blood Pressure 93.00 mm[Hg] SatAug 25 20:08:08 EDT 4 Diastolic Blood Pressure 59.00 mm[Hg] SatAug 25 20:08:08 EDT 4 Heart Rate 81.00 /min SatAug 25 20:08 :08 EDT 4 Body weight 203.40 [lb_av] SatAug 25 14:14 :42 EDT 4 Systolic Blood Pressure 120.00 mm[Hg] SatAug 25 10:45:18 EDT 2023 Diastolic Blood Pressure 65.00 mm[Hg] SatAug 25 10:45:18 EDT 4 Heart Rate 63.00 /min SatAug 25 10:45 :18 EDT 4 Body temperature 97.80 [degF] SatAug 25 10:4 5:18 EDT 4 Respiratory rate 16.00 /min SatAug 25 10:4 5:18 EDT 4 Pulse Oximetry 94.00 % SatAug 25 10:45 :18 EDT 4 Systolic Blood Pressure 120.00 mm[Hg] SatAug 25 09:16:01 EDT 4 Diastolic Blood Pressure 65.00 mm[Hg] SatAug 25 09:16:01 EDT 4 Systolic Blood Pressure 120.00 mm[Hg] SatAug 25 09:16:01 EDT 4 Diastolic Blood Pressure 65.00 mm[Hg] SatAug 25 09:16:01 EDT 2023 Heart Rate 63.00 /min SatAug 25 09:16 :01 EDT 2023 Systolic Blood Pressure 114.00 mm[Hg] [place] Aug 24 21:03:02 EDT 2023 Diastolic Blood Pressure 56.00 mm[Hg] Sun Aug 24 21:03:02 EDT 2023 Systolic Blood Pressure 114.00 mm[Hg] Sun Aug 24 21:03:02 EDT 2023 Diastolic Blood Pressure 56.00 mm[Hg] [place] 02 21:03:02 EDT 2023 Systolic Blood Pressure 114.00 mm[Hg] [place] 02 21:03:02 EDT 2023 Diastolic Blood Pressure 56.00 mm[Hg] [place] 02 21:03:02 EDT 2023 Heart Rate 84.00 /min Sun Aug 02 21:03 :02 EDT 2023 Heart Rate 84.00 /min Sun Aug 02 21:03 :02 EDT 2023 Body temperature 97.50 [degF] Sun Aug 02 21:0 3:02 EDT 2023 Respiratory rate 18.00 /min Sun Aug 02 21:0 3:02 EDT 2023 Pulse Oximetry 95.00 % [place] 02 21:03 :02 EDT 2023 Body weight 200.80 [lb_av] Sun Aug 02 16:12 :17 EDT 2023 Systolic Blood Pressure 110.00 mm[Hg] Sun Aug 02 09:49:44 EDT 4 Diastolic Blood Pressure 56.00 mm[Hg] Sun Aug 02 09:49:44 EDT 2023 Systolic Blood Pressure 110.00 mm[Hg] Sun Aug 24 09:49:44 EDT 2023 Diastolic Blood Pressure 56.00 mm[Hg] Sun Aug 02 09:49:44 EDT 4 Systolic Blood Pressure 110.00 mm[Hg] Sun Aug 02 09:49:44 EDT 4 Diastolic Blood Pressure 56.00 mm[Hg] Sun Aug 02 09:49:44 EDT 4 Heart Rate 89.00 /min Sun Aug 02 09:49 :44 EDT 2023 Heart Rate 89.00 /min Sun Aug 02 09:49 :44 EDT 4 Body temperature 98.10 [degF] Sun Aug 02 09:4 9:44 EDT 4 Respiratory rate 20.00 /min Sun Aug 02 09:4 9:44 EDT 4 Pulse Oximetry 94.00 % [place] 02 09:49 :44 EDT 2023 Systolic Blood Pressure 102.00 mm[Hg] Sat [place] 01 20:32:26 EDT 2023 Diastolic Blood Pressure 66.00 mm[Hg] Sat [place] 01 20:32:26 EDT 2023 Systolic Blood Pressure 102.00 mm[Hg] Sat [place] 01 20:32:26 EDT 2023 Diastolic Blood Pressure 66.00 mm[Hg] Sat [place] 01 20:32:26 EDT 2023 Heart Rate 78.00 /min [facility] Aug 23 20:32 :26 EDT 4 Systolic Blood Pressure 119.00 mm[Hg] [facility] Aug 23 19:37:36 EDT 2023 Diastolic Blood Pressure 72.00 mm[Hg] [facility] Aug 23 19:37:36 EDT 2023 Heart Rate 81.00 /min [facility] Aug 23 19:37 :36 EDT 4 Body temperature 97.70 [degF] [facility] Aug 23 19:3 7:36 EDT 2023 Respiratory rate 18.00 /min [facility] Aug 23 19:3 7:36 EDT 2023 Pulse Oximetry 92.00 % [facility] Aug 23 19:37 :36 EDT 2023 Body weight 198.80 [lb_av] [facility] Aug 23 17:53 :45 EDT 2023 Systolic Blood Pressure 113.00 mm[Hg] [facility] Aug 23 08:59:28 EDT 2023 Diastolic Blood Pressure 82.00 mm[Hg] [facility] Aug 23 08:59:28 EDT 2023 Systolic Blood Pressure 113.00 mm[Hg] [facility] Aug 23 08:59:28 EDT 2023 Diastolic Blood Pressure 82.00 mm[Hg] [facility] Aug 23 08:59:28 EDT 4 Systolic Blood Pressure 113.00 mm[Hg] [facility] Aug 23 08:59:28 EDT 2023 Diastolic Blood Pressure 82.00 mm[Hg] [facility] Aug 23 08:59:28 EDT 4 Heart Rate 80.00 /min [facility] Aug 23 08:59 :28 EDT 2023 Heart Rate 80.00 /min [facility] Aug 23 08:59 :28 EDT 2023 Body temperature 98.30 [degF] [facility] Aug 23 08:5 9:28 EDT 2023 Respiratory rate 22.00 /min [facility] Aug 23 08:5 9:28 EDT 2023 Pulse Oximetry 92.00 % [facility] Aug 23 08:59 :28 EDT 2023 Systolic Blood Pressure 113.00 mm[Hg] SatAugust 22 22:32:16 EDT 2023 Diastolic Blood Pressure 61.00 mm[Hg] SatAugust 22 22:32:16 EDT 2023 Heart Rate 62.00 /min SatAugust 22 22:32 :16 EDT 2023 Body temperature 98.50 [degF] SatAugust 22 22:3 2:16 EDT 2023 Respiratory rate 18.00 /min SatAugust 22 22:3 2:16 EDT 2023 Pulse Oximetry 93.00 % SatAugust 22 22:32 :16 EDT 2023 Systolic Blood Pressure 113.00 mm[Hg] SatAugust 22 20:54:59 EDT 2023 Diastolic Blood Pressure 60.00 mm[Hg] SatAugust 22 20:54:59 EDT 2023 Systolic Blood Pressure 113.00 mm[Hg] SatAugust 22 20:54:59 EDT 2023 Diastolic Blood Pressure 60.00 mm[Hg] SatAugust 22 20:54:59 EDT 2023 Heart Rate 62.00 /min SatAugust 22 20:54 :59 EDT 2023 Body weight 199.80 [lb_av] SatAugust 22 15:32 :48 EDT 2023 Systolic Blood Pressure 122.00 mm[Hg] SatAugust 22 12:03:47 EDT 2023 Diastolic Blood Pressure 77.00 mm[Hg] SatAugust 22 12:03:47 EDT 2023 Heart Rate 94.00 /min SatAugust 22 12:03 :47 EDT 2023 Body temperature 98.50 [degF] SatAugust 22 12:0 3:47 EDT 2023 Respiratory rate 18.00 /min SatAugust 22 12:0 3:47 EDT 2023 Pulse Oximetry 95.00 % SatAugust 22 12:03 :47 EDT 2023 Systolic Blood Pressure 122.00 mm[Hg] SatAugust 22 09:33:53 EDT 2023 Diastolic Blood Pressure 77.00 mm[Hg] SatAugust 22 09:33:53 EDT 2023 Systolic Blood Pressure 122.00 mm[Hg] SatAugust 22 09:33:53 EDT 2023 Diastolic Blood Pressure 77.00 mm[Hg] SatAugust 22 09:33:53 EDT 2023 Heart Rate 94.00 /min SatAugust 22 09:33 :53 EDT 2023 Systolic Blood Pressure 114.00 mm[Hg] SatAugust 21 22:06:19 EDT 2023 Diastolic Blood Pressure 73.00 mm[Hg] SatAugust 21 22:06:19 EDT 2023 Heart Rate 109.00 /min SatAugust 21 22:06 :19 EDT 2023 Body temperature 98.70 [degF] SatAugust 21 22:0 6:19 EDT 2023 Respiratory rate 17.00 /min SatAugust 21 22:0 6:19 EDT 2023 Pulse Oximetry 96.00 % SatAugust 21 22:06 :19 EDT 2023 Systolic Blood Pressure 136.00 mm[Hg] SatAugust 21 20:59:04 EDT 2023 Diastolic Blood Pressure 79.00 mm[Hg] SatAugust 21 20:59:04 EDT 2023 Systolic Blood Pressure 136.00 mm[Hg] SatAugust 21 20:59:04 EDT 2023 Diastolic Blood Pressure 79.00 mm[Hg] SatAugust 21 20:59:04 EDT 2023 Heart Rate 78.00 /min SatAugust 21 20:59 :04 EDT 2023 Body weight 199.60 [lb_av] SatAugust 21 13:09 :22 EDT 2023 Systolic Blood Pressure 134.00 mm[Hg] SatAugust 21 08:59:17 EDT 2023 Diastolic Blood Pressure 94.00 mm[Hg] SatAugust 21 08:59:17 EDT 2023 Systolic Blood Pressure 134.00 mm[Hg] SatAugust 21 08:59:17 EDT 2023 Diastolic Blood Pressure 94.00 mm[Hg] SatAugust 21 08:59:17 EDT 2023 Systolic Blood Pressure 134.00 mm[Hg] SatAugust 21 08:59:17 EDT 2023 Diastolic Blood Pressure 94.00 mm[Hg] SatAugust 21 08:59:17 EDT 2023 Heart Rate 80.00 /min SatAugust 21 08:59 :17 EDT 2023 Heart Rate 80.00 /min SatAugust 21 08:59 :17 EDT 2023 Body temperature 97.80 [degF] SatAugust 21 08:5 9:17 EDT 2023 Respiratory rate 20.00 /min SatAugust 21 08:5 9:17 EDT 2023 Pulse Oximetry 92.00 % SatAugust 21 08:59 :17 EDT 2023 Systolic Blood Pressure 120.00 mm[Hg] SatAugust 20 21:27:10 EDT 2023 Diastolic Blood Pressure 99.00 mm[Hg] SatAugust 20 21:27:10 EDT 2023 Systolic Blood Pressure 120.00 mm[Hg] SatAugust 20 21:27:10 EDT 2023 Diastolic Blood Pressure 99.00 mm[Hg] SatAugust 20 21:27:10 EDT 2023 Heart Rate 126.00 /min SatAugust 20 21:27 :10 EDT 2023 Systolic Blood Pressure 120.00 mm[Hg] SatAugust 20 20:33:21 EDT 2023 Diastolic Blood Pressure 99.00 mm[Hg] SatAugust 20 20:33:21 EDT 2023 Heart Rate 126.00 /min SatAugust 20 20:33 :21 EDT 2023 Body temperature 98.50 [degF] SatAugust 20 20:3 3:21 EDT 2023 Respiratory rate 16.00 /min SatAugust 20 20:3 3:21 EDT 2023 Pulse Oximetry 92.00 % SatAugust 20 20:33 :21 EDT 2023 Body weight 202.80 [lb_av] SatAugust 20 17:43 :47 EDT 2023 Systolic Blood Pressure 118.00 mm[Hg] SatAugust 20 09:29:30 EDT 2023 Diastolic Blood Pressure 85.00 mm[Hg] SatAugust 20 09:29:30 EDT 2023 Systolic Blood Pressure 118.00 mm[Hg] SatAugust 20 09:29:30 EDT 2023 Diastolic Blood Pressure 85.00 mm[Hg] SatAugust 20 09:29:30 EDT 2023 Heart Rate 85.00 /min SatAugust 20 09:29 :30 EDT 2023 Systolic Blood Pressure 118.00 mm[Hg] SatAugust 20 08:41:12 EDT 2023 Diastolic Blood Pressure 85.00 mm[Hg] SatAugust 20 08:41:12 EDT 2023 Heart Rate 85.00 /min SatAugust 20 08:41 :12 EDT 2023 Body temperature 98.40 [degF] SatAugust 20 08:4 1:12 EDT 2023 Respiratory rate 20.00 /min SatAugust 20 08:4 1:12 EDT 2023 Pulse Oximetry 98.00 % SatAugust 20 08:41 :12 EDT 2023 Systolic Blood Pressure 118.00 mm[Hg] SatAugust 19 23:01:34 EDT 2023 Diastolic Blood Pressure 82.00 mm[Hg] SatAugust 19 23:01:34 EDT 2023 Heart Rate 125.00 /min SatAugust 19:01 :34 EDT 2023 Systolic Blood Pressure 118.00 mm[Hg] SatAugust 19 19:38:00 EDT 2023 Diastolic Blood Pressure 82.00 mm[Hg] SatAugust 19 19:38:00 EDT 2023 Heart Rate 126.00 /min SatAugust 19 19:38 :00 EDT 2023 Body temperature 98.50 [degF] SatAugust 19 19:3 8:00 EDT 2023 Respiratory rate 20.00 /min SatAugust 19 19:3 8:00 EDT 2023 Pulse Oximetry 92.00 % SatAugust 19 19:38 :00 EDT 2023 Reason for Referral Past Medical History Resolved Concerns * Problem Other specified respiratory disorders* Code: * Start Date: SatFeb 06 00:00:00 [...]
--- OUTSIDE RECORDS SUMMARY | 2024-08-12 20:49 | XMS_ITS | Encounter Summary ---
Author Organization [facility] Healthcare Address [address] [place] [address] Care Team Providers Care Commercial Pest Control Representative Name Role Phone Meagan Yusuf MD Primary Care Provider + Annemarie Lea MD Unavailable [phone] Margy Walker MD PhD Unavailable [phone] Geraldine Barbosa NP Unavailable [phone] Encounter Details Date Type Department Care Team (Latest Contact Info) Description 08/07/2024 Results Follow-Up [facility] Cardiology [address] [place] [address] Radha Jimenez MD [address] [address] Transthoracic Echo (TTE) Complete W Doppler/CF Social History Tobacco Use Types Packs/Day Years [...] on file 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 Gender Identity Not on file Sexual Orientation Not on file documented as of this encounter Plan of Treatment Not on file documented as of this encounter Visit Diagnoses Not on filedocumented in this encounter Care Teams Commercial Pest Control Representative Relationship Specialty Start Date End Date Meagan Yusuf MD PCP - General Family Medicine 05/22/23 Annemarie Lea MD [address] [place] [address] Consulting Physician Otolaryngology 05/27/24 Margy Walker MD PhD [address] [place] [address] Consulting Physician Plastic Surgery 05/27/24 Geraldine Barbosa NP [address] [place] [address] Nurse Practitioner Neurosurgery 05/27/24 documented as of this encounter
[2024-08-12 21:14] LABS: Basophils Percent Auto 0.3 % (0.2-1.2); Eosinophils Absolute Auto 0.1 K/mm3 (0-0.3); Eosinophils Percent Auto 1.8 % (0-4.4); Hematocrit 39.4 % (37.0-47.0); Hemoglobin 11.3 g/dL (12.0-15.0); Immature Granulocyte Absolute 0.02 K/mm3 (0.00-0.031); Immature Granulocyte Percent A 0.3 % (0-0.5); Lymphocytes Absolute Auto 0.93 K/mm3 (0.9-3.2); Lymphocytes Percent Auto 13.2 % (18.3-44.2); Mean Corpuscular HGB Conc 28.7 g/dl (32-36); Mean Corpuscular Hemoglobin 27.2 pg (26-34); Mean Corpuscular Volume 94.9 fl (80-100); Mean Platelet Volume 10.2 fl (7.4-10.4); Monocytes Absolute Auto 0.5 K/mm3 (0.1-0.6); Monocytes Percent Auto 7.5 % (2.6-8.5); Neutrophils Absolute Auto 5.4 K/mm3 (1.3-6.7); Neutrophils Percent Auto 76.9 % (45.5-73.1); Platelet Count Result 199 k/mm3 (150-375); Red Blood Count 4.15 M/mm3 (4.2-5.4); Red Cell Distribution Width 14.2 % (11.5-14.5)
[2024-08-12 21:15] VITALS: BP 107/65
[2024-08-12 21:25] LABS: Alanine Aminotransferase 20 U/L (6-35); Albumin Level 4.1 g/dL (3.5-5.1); Alkaline Phosphatase 63 U/L (38-126); Aspartate Amino Transferase 34 U/L (14-36); Bilirubin,Total 1.2 mg/dL (0.2-1.3); Blood Urea Nitrogen 49 mg/dL (7-17); Calcium 8.7 mg/dL (8.4-10.2); Carbon Dioxide > 40 mmol/L (22-30); Chloride 82 mmol/L (98-107); Estimated CRCL calculation 45 ml/min; Estimated Glomerular Filt Rate 50; Glucose 119 mg/dL (65-110); Potassium 3.2 mmol/L (3.4-5.0); Sodium 139 mmol/L (137-145)
[2024-08-12 21:38] LABS: Platelet Estimate Adequate (Adequate)
[2024-08-12 21:39] LABS: Band Neutrophils Percent 0 % (0-6); Hypochromasia 1+; Schistocytes None Seen
[2024-08-13] VITALS (8 sets, daily range): BP systolic 100–126; BP diastolic 71–94; PULSE 63–79; RESP 16–22; O2SAT 99–100
[2024-08-13 00:23] LABS: Magnesium 1.9 mg/dL (1.6-2.3)
[2024-08-13] MEDS: POTASSIUM CHLORIDE 20 MEQ ER TABLET 40 MEQ PO (00:26)
--- NOTE | 2024-08-13 00:28 | ED_ITS ---
HPI - Recheck/Abnormal Lab/Rx General Chief Complaint: Recheck/Abnormal Lab/Rx Stated Complaint: abnormal labs, low K Time Seen by Provider: 08/13/24 00:09 Source: patient Mode of arrival: ambulatory Limitations: no limitations History of Present Illness HPI narrative: Patient presents to the emergency department for abnormal outpatient blood work. Reports her potassium has been running low, she was urged to be seen in the ER as increasing her oral dose did not seem to be helping. She is not having any symptoms. Related Data Home Medications ?Medication ?Instructions ?Recorded ?Confirmed ?Last Taken ?Type acetaminophen 500 mg capsule 1,000 mg PO Q6H 05/27/24 07/15/24 Unknown History cholecalciferol (vitamin D3) 25 2,000 unit PO DAILY 05/27/24 07/15/24 Unknown History mcg (1,000 unit) tablet polyethylene glycol 3350 17 17 g PO DAILY 05/27/24 07/15/24 Unknown History gram/dose oral powder ropinirole 0.5 mg tablet 0.5 mg PO TID 05/27/24 07/15/24 Unknown History albuterol sulfate 2.5 mg/3 mL 2.5 mg inhalation Q4-6H PRN 07/20/24 07/20/24 Unknown History (0.083 %) solution for nebulization Allergies Allergy/AdvReac Type Severity Reaction Status Date / Time Penicillins Allergy Mild Rash Verified 08/12/24 20:46 thiopental (From Pentothal) AdvReac Intermediate Nausea and Verified 08/12/24 20:46 Vomiting Review of Systems 2 Review of Systems: All systems reviewed & are unremarkable except as noted in HPI and below [facility] Past Medical History Medical History Hemarthrosis of knee, left Degenerative joint disease of knee Patellar bursitis of left knee Left knee pain Acute hypoxic respiratory failure Atrial fibrillation with RVR Pulmonary edema Prepatellar bursitis, left knee UTI (urinary tract infection) Hematoma and contusion Periorbital hematoma of both eyes Hypotension Contusion of face Acute kidney injury superimposed on CKD Acute on chronic respiratory failure with hypoxia and hypercapnia Alcohol dependence Left shoulder pain Azotemia Acute exacerbation of CHF (congestive heart failure) Hypertensive urgency NSTEMI (non-ST elevated myocardial infarction) Hyperglycemia Elevated troponin level CHF exacerbation Chronic respiratory failure with hypoxia Pulmonary hypertension Restless leg syndrome Ulcerative colitis 2018 colonoscopy negative (cologuard +). COVID-19 Peripheral neuropathy Lung nodules 09/2018: stable R apex nodule/ multiple other nodules/emphysema LDCT: stable Alcohol abuse Cervical disc disorder with radiculopathy of cervicothoracic region Murmur, cardiac Nicotine dependence, unspecified, in remission 40 pack year/ quit 2009 LDCT emphysema, multiple nodules Postmenopausal Chronic depression Continuous leakage of urine Mixed hyperlipidemia Primary osteoarthritis of right hip Pulmonary HTN RLS (restless legs syndrome) Oxygen dependent Surgical History Surgical History History of hysterectomy History of total right hip arthroplasty History of total replacement of right shoulder joint History of appendectomy History of carpal tunnel surgery of left wrist (03/02/20) Family History Family History Mother Family history of osteoporosis Family history of mental disorder Family history of anemia Family history of arthritis Family history of malignant neoplasm Family history of Alzheimer's disease Patient's mother is Sibling Family history of malignant neoplasm of uterus Family history of malignant neoplasm of cervix Patient's sister is Daughter Crohn disease Other Cerebrovascular accident Family history of cardiovascular disease Family history of glaucoma Social History Social History (Updated 07/20/24 @ 14:04 by Thomas Hanley APRN) Social History: Surrogate decision maker: Shantal Pond, daughter. Code status: Full code. Smoking packs per day: 1 Smoking cigarettes per day: 20.0 Years smoked: 50 Smoking pack-years: 50.00 Smoking status: Former smoker Tobacco type: cigarettes Second hand tobacco smoke exposure: Yes Smoking end date: 03/25/11 Alcohol intake: never Substance use: never Substance use type: does not use Do You Feel Safe in your Home?: Yes Lack of Transportation: YES Lack of Food: Never True Current Housing: I Have Housing Concerned About Future Housing: No Difficulty Paying Gas/Electric Bills: No Difficulty Paying for Meds: No Currently Unemployed: No Education: High School Diploma/GED Difficulty w/ Childcare or Family Care: No Living arrangements: alone Additional living arrangements comments: The patient lives in her own home in [place]. Additional occupation/education comments: Retired. Spiritual care concerns: No Exam 2 Narrative: GENERAL: Well-appearing, well-nourished, and in no acute distress. HEAD: Normocephalic, atraumatic. EYES: EOMI. CHEST: Clear to auscultation. No respiratory distress. No wheezes rales or rhonchi HEART: Regular rate and rhythm. No murmur heard. Normal peripheral pulses. ABDOMEN: Soft, nontender, nondistended, normal active bowel sounds. EXTREMITIES: Normal range of motion. No edema. SKIN: Warm, dry, no rash. NEURO: No focal deficits. Alert and oriented x3. PSYCH: Normal mood and affect Course Course Emergency Course: Patient and family updated on workup and agree with plan of care Vital Signs Vital signs: Vital Signs Temperature 98.1 F 08/12/24 20:47 Respiratory Rate 16 08/12/24 20:47 Blood Pressure 95/60 L 08/12/24 20:47 Pulse Oximetry 88 L 08/12/24 20:47 Oxygen Delivery Room Air 08/12/24 20:47 Temperature 98.1 F 08/12/24 20:47 Pulse Rate 63 08/13/24 00:04 Respiratory Rate 16 08/13/24 00:04 Blood Pressure 120/91 H 08/13/24 00:04 Pulse Oximetry 99 08/13/24 00:04 Oxygen Delivery Room Air 08/12/24 20:47 Oxygen Flow Rate 4 08/13/24 00:04 MDM - Recheck/Abnormal Lab/Rx MDM Narrative Medical decision making narrative: Patient presents to the emergency department for abnormal outpatient blood work. Patient's potassium had been running in the 2.7-2.8 range. Today it is 3.2. Given an oral dose of potassium here. Magnesium is low normal. Magnesium was also replaced. Patient and family updated on workup and agree with plan of care. She is to follow up with primary provider. She was given warnings to return to the ER Differential Diagnosis Differential diagnosis: Likely other (Dehydration, electrolyte derangement, medication side effect) Lab Data Attestation: I reviewed the patient's lab results. 08/12/24 21:07 08/12/24 21:07 Labs: Lab Results 08/12/24 Range/Units 21:07 WBC 7.0 (4.5-10.0) K/mm3 RBC 4.15 L (4.2-5.4) M/mm3 Hgb 11.3 L (12.0-15.0) g/dL Hct 39.4 (37.0-47.0) % MCV 94.9 (80-100) fl MCH 27.2 (26-34) pg MCHC 28.7 L (32-36) g/dl RDW 14.2 (11.5-14.5) % Plt Count 199 (150-375) k/mm3 MPV 10.2 (7.4-10.4) fl Immature Gran % (Auto) 0.3 (0-0.5) % Neut % (Auto) 76.9 H (45.5-73.1) % Lymph % (Auto) 13.2 L (18.3-44.2) % Pitkin % (Auto) 7.5 (2.6-8.5) % Eos % (Auto) 1.8 (0-4.4) % Baso % (Auto) 0.3 (0.2-1.2) % Lymph # (Auto) 0.93 (0.9-3.2) K/mm3 Pitkin # (Auto) 0.5 (0.1-0.6) K/mm3 Eos # (Auto) 0.1 (0-0.3) K/mm3 Baso # (Auto) 0.0 (0.0-0.1) K/mm3 Abs Immat Gran (auto) 0.02 (0.00-0.031) K/mm3 Absolute Neuts (auto) 5.4 (1.3-6.7) K/mm3 Absolute Nucleated RBC 0.000 (0.0-0.012) K/mm3 Band Neutrophils % 0 (0-6) % Nucleated RBC % 0.0 (0.0-0.2) % Platelet Estimate Adequate (Adequate) Hypochromasia 1+ Schistocytes None seen Sodium 139 (137-145) mmol/L Potassium 3.2 L (3.4-5.0) mmol/L Chloride 82 L (98-107) mmol/L Carbon Dioxide > 40 H (22-30) mmol/L Anion Gap (4-12) mmol/L BUN 49 H (7-17) mg/dL Creatinine 1.07 H (0.7-1.0) mg/dL Estim Creat Clear Calc 45 ml/min Estimated GFR 50 L (59 - ) Glucose 119 H (65-110) mg/dL Calcium 8.7 (8.4-10.2) mg/dL Magnesium 1.9 (1.6-2.3) mg/dL Total Bilirubin 1.2 (0.2-1.3) mg/dL AST 34 (14-36) U/L ALT 20 (6-35) U/L Alkaline Phosphatase 63 (38-126) U/L Total Protein 8.0 (6.3-8.2) g/dL Albumin 4.1 (3.5-5.1) g/dL Critical Care Time Critical Care Time Critical Care Time: No Discharge Plan Discharge Clinical Impression: Hypokalemia Patient Disposition: Home Condition: Stable Instructions: Hypokalemia (ED) Additional Instructions: Return to the emergency department if you experience fever, chest pain, shortness of breath, abdominal pain with nausea and vomiting, weakness, numbness, or any other symptoms that are concerning to you. Continue potassium supplementation as prescribed Follow up with primary care doctor Patient Language: Sami Prescriptions: No Action albuterol sulfate 2.5 mg /3 mL (0.083 %) solution for nebulization 2.5 mg inhalation Q4-6H PRN metoprolol tartrate 25 mg tablet 25 mg PO Q12HR Qty: 180 3RF bumetanide 1 mg tablet 1.5 mg PO DAILY Qty: 90 3RF famotidine 20 mg Tablet 20 mg PO Q12HR Qty: 30 0RF cyanocobalamin (vitamin B-12) [Vitamin B-12] 1,000 mcg tablet 1,000 mcg PO QAM 90 Days Qty: 90 3RF pramipexole 1 mg tablet 1 mg PO HS Qty: 90 3RF folic acid 1 mg tablet 1 mg PO DAILY Qty: 90 3RF rosuvastatin 20 mg tablet 20 mg PO DAILY Qty: 90 1RF balsalazide 750 mg capsule See Rx Instructions .ROUTE .COMPLEX Qty: 270 1RF Dose Instruction: TAKE 3 CAPSULES BY MOUTH THREE TIMES DAILY Rx Instructions: TAKE 3 CAPSULES BY MOUTH THREE TIMES DAILY sertraline 100 mg tablet See Rx Instructions .ROUTE .COMPLEX Qty: 90 0RF Dose Instruction: TAKE 1 TABLET(100 MG) BY MOUTH EVERY MORNING Rx Instructions: TAKE 1 TABLET(100 MG) BY MOUTH EVERY MORNING gabapentin 300 mg capsule See Rx Instructions .ROUTE .COMPLEX Qty: 90 0RF Dose Instruction: TAKE 1 CAPSULE BY MOUTH THREE TIMES DAILY Rx Instructions: TAKE 1 CAPSULE BY MOUTH THREE TIMES DAILY acetaminophen 500 mg capsule 1,000 mg PO Q6H cholecalciferol (vitamin D3) 25 mcg (1,000 unit) tablet 2,000 unit PO DAILY polyethylene glycol 3350 17 gram/dose powder 17 g PO DAILY ropinirole 0.5 mg tablet 0.5 mg PO TID diltiazem HCl 60 mg Tablet 30 mg PO TID Qty: 90 0RF potassium chloride [K-Tab] 20 mEq Tablet Extended Release 20 meq PO BID Qty: 0 0RF Trelegy Ellipta 100-62.5-25 mcg Blister With Device 1 inh inhalation DAILYRT Qty: 0 0RF Follow-up/Referrals: Meagan Yusuf MD [Primary Care Provider] -
[2024-08-13] MEDS: MAGNESIUM SULF 1 GM/D5W 100 ML 1 GM/100 ML BAG IVPB (00:29)
--- OUTSIDE RECORDS SUMMARY | 2024-08-13 00:59 | XMS_ITS | Encounter Summary ---
Author Organization [facility] Address 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
--- OUTSIDE RECORDS SUMMARY | 2024-08-13 00:59 | XMS_ITS | Referral Summary ---
Author Organization [facility] Address [address] [place] [id number] Care Team Providers Care Manager Ship Name Role Phone Meagan Yusuf MD Primary Care Provider + Annemarie Lea MD Unavailable [phone] Margy Walker MD PhD Unavailable [phone] Geraldine Barbosa NP Unavailable [phone] Encounters Date Type Department Care Team Description 08/07/2024 Results Follow-Up [facility] Medical [facility] Cardiology [address] [facility] [address] [place] [address] Cinda Jimenez MD Transthoracic Echo (TTE) Complete W Doppler/CF 08/06/2024 2:00 PM CDT Ancillary Procedure [facility] Medical [facility] Cardiology at [address] [place] [address] Nonrheumatic mitral valve regurgitation; Nonrheumatic tricuspid valve regurgitation 07/22/2024 9:30 AM CDT Office Visit [facility] Cardiology at [address] [place] [address] Cinda Jimenez MD Nonrheumatic mitral valve regurgitation (Primary Dx); Nonrheumatic tricuspid valve regurgitation; Mixed hyperlipidemia; Labile hypertension; 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 [address] [place] [address] [place] [phone] Leeann Horvath MD Orbital floor (blow-out) closed fracture (HCC) (Primary Dx); Mixed type age-related cataract, both eyes 06/23/2024 11:59 AM CDT - 06/23/2024 11:59 PM CDT Hospital Encounter [facility] [address] [place] [id number] Discharge Disposition: Discharge to home or self care 06/23/2024 11:00 AM CDT Office Visit [facility] [address] [facility] 6th [place] [address] [place] [phone] Margy Walker MD PhD Fracture (Primary Dx); Other closed intra-articular fracture of distal end of left radius, initial encounter 06/15/[address] [facility] [address] [facility] 6th [place] [address] [place] [phone] Erica Velarde 06/09/[address] [facility] Scheduling [address] [place] [address] Nu Milian MD 05/31/[address] [facility] [address] [place], [place] [phone] Leeann Horvath MD 05/28/2024 Documentation [facility] Surgeon [address] [place] [address] Lorena Beck NP 05/27/[address] [facility] ([facility]) - [facility] [address] [facility] 11th [place] [address] [place] [phone] Sybil Burgess, 05/13/2024 12:53 AM DIVISION TRAFFIC SUPERINTENDENT - 05/27/2024 7:22 PM DIVISION TRAFFIC SUPERINTENDENT Hospital Encounter [facility] [address] [place] [phone] Edwige Strickland MD Vallar, Kelly Jean, MD Smith, Miya Alys, MD Croft, Irineo, MD Fall, initial encounter (Primary Dx); Closed fracture of right orbital floor, initial encounter (HCC); Frequent falls; Other closed intra-articular fracture of distal end of left radius, initial encounter Discharge Disposition: Discharge to an Rehab facility 05/19/2024 7:30 AM DIVISION TRAFFIC SUPERINTENDENT - 05/19/2024 10:50 AM DIVISION TRAFFIC SUPERINTENDENT Surgery [facility] Operating Room 1 [place] [address] Annemarie Lea MD OPEN REDUCTION INTERNAL FIXATION - ORBITAL FRACTURE 05/19/2024 7:51 AM DIVISION TRAFFIC SUPERINTENDENT Anesthesia Event [facility] Operating Room [address] [place] [address] Mag Villatoro MD Ridenour, Rebekah Elizabeth, ALFONSO 05/18/2024 3:50 PM DIVISION TRAFFIC SUPERINTENDENT - 05/18/2024 6:30 PM DIVISION TRAFFIC SUPERINTENDENT Surgery [facility] Operating Room [address] [place] [address] Margy Walker MD PhD OPEN REDUCTION INTERNAL FIXATION RADIUS - DISTAL 05/18/2024 3:47 PM DIVISION TRAFFIC SUPERINTENDENT Anesthesia Event [facility] Operating Room [address] [place] [address] Zack Rizvi MD Ridenour, Malorie Gibbons, ALFONSO from Last 3 Months Allergies Active Allergy [...] 05/23/2024 Assessment & Plan (05/26/2024 9:50 AM DIVISION TRAFFIC SUPERINTENDENT): #COPD #TRAVIS, chronic #Chronic hypoxic respiratory failure [...] 05/23/2024 Assessment & Plan (05/27/2024 11:52 AM DIVISION TRAFFIC SUPERINTENDENT): 3 tx out ICU, PT/OT - 05/25: awaiting repeat swallow evaluation, calorie counts - 05/26: Continue Tfs at nightly, Calorie counts. Wean O2 back to home 4L. Not medically ready for discharge. 05/27: Patient is medically stable for discharge, SW/CM updated. Discharge pending facility bed availability Treatment note 05/14 [x] Feeding difficulties 05/22/2024 Assessment & Plan (05/27/2024 11:55 AM DIVISION TRAFFIC SUPERINTENDENT): SBFT placed by ENT 05/21 TFs commenced [...] NPO, resumed tube feeds, ordered for repeat FURNACE UTILITY OPERATOR evaluation. Recommend up in chair for all meals and 1:1 assistance during meals pending FURNACE UTILITY OPERATOR evaluation. Discussed with patient and nurse to inform provider of any change in clinical exam or vital signs. 05/25: repeat Swallow- regular diet, regular thin liquids assistance with meals, calorie counts ordered, cycle tube feeding over PM MBS (05/27): swallow mechanism is normal Respiratory distress 05/20/2024 Assessment & Plan (05/27/2024 11:55 AM DIVISION TRAFFIC SUPERINTENDENT): Transferred to SICU 05/18 ON after respiratory [...] 05/14/2024 Assessment & Plan (05/15/2024 2:15 PM DIVISION TRAFFIC SUPERINTENDENT): - Orthostatic vital signs (05/14): negative - [...] 05/14/2024 Assessment & Plan (05/14/2024 12:48 PM DIVISION TRAFFIC SUPERINTENDENT): - Tylenol 1g q6h - Gabapentin 300mg TID - Robaxin 500mg TID PRN - Oxycodone 5mg q4h PRN Closed fracture of distal end of left radius Assessment & Plan (05/27/2024 11:55 AM DIVISION TRAFFIC SUPERINTENDENT): - Plastics consult - L hand/wrist xr [...] 05/14/2024 Assessment & Plan (05/25/2024 11:39 AM DIVISION TRAFFIC SUPERINTENDENT): - Magnesium (05/14): 1.9mg/dL - 2/20: replete Magnesium 2g IV - Magnesium (05/15): 2.0mg/dL - Magnesium (05/20): 2.2mg/dL - Magnesium (05/25): 2.0mg/dL - continue to trend Magnesium Fall, initial encounter 05/13/2024 Assessment & Plan (05/15/2024 10:18 AM DIVISION TRAFFIC SUPERINTENDENT): Syncopal workup given unclear mechanism (TTE, carotid [...] months Assessment & Plan (05/27/2024 11:52 AM DIVISION TRAFFIC SUPERINTENDENT): Ophtho c/s ---HOB elevation, open-mouth sneezing, no [...] to be tasked with Dr Lea's team. 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 05/13/2024 Assessment & Plan (05/23/2024 4:06 PM DIVISION TRAFFIC SUPERINTENDENT): - Neurosurgery consult - Repeat head CT [...] 05/13/2024 Assessment & Plan (05/25/2024 11:36 AM DIVISION TRAFFIC SUPERINTENDENT): - Hold Xarelto - home diltiazem 180 mg daily, metprolol 25 mg bid, entresto 24-26mg BID, rosuvastatin - Hold home lasix - Last TTE in system with grade II diastolic dysfunction , EF 70%, moderate pulmonary hypertension (09/2021) - 05/15: developed atrial fibrillation with RVR over PM--> received Metoprolol 5mg IV x2, repeat EKG obtained - 05/18: Resumed diltiazem 30 mg TID - 3: Resumed diltiazem 30mg TID Chronic diastolic heart failure 05/13/2024 Assessment & Plan (05/24/2024 3:43 PM DIVISION TRAFFIC SUPERINTENDENT): Grade II diastolic dysfunction -EF 70%, moderate pulmonary hypertension (09/2021) 3/: resumed home diltiazem. CTM BP and resume home lasix when appropriate. Restless leg syndrome 05/13/2024 Assessment & Plan (05/13/2024 2:32 PM DIVISION TRAFFIC SUPERINTENDENT): - Continue home ropinrole and pramipexole, gabapentin Mood disorder 05/13/2024 Assessment & Plan (05/13/2024 2:37 PM DIVISION TRAFFIC SUPERINTENDENT): Continue home zoloft Heart failure with mildly re duced ejection fraction (HFmrEF) 01/15/2024 Assessment & Plan (05/27/2024 11:57 AM DIVISION TRAFFIC SUPERINTENDENT): #HTN, chronic #HFrEF, chronic #Severe MR #Severe TI #Severe pulmonary hypertension - TTEs as above - Home O2 4L - Follows with [facility] Cardiology - Home Diltiazem, Entresto, Lasix (1/2 dose) and metoprolol continued Persistent atrial fibrillation 02/20/2022 Noncompliance with medicatio n treatment due to intermittent use of medication 12/18/2021 Morbid (severe) obesity due to excess calories 0 07/05/2021 Labile hypertension 03/23/2021 Hypotension due to drugs 03/23/2021 Coronary artery disease invo lving twenty-nine palms coronary artery of twenty-nine palms heart without angina pectoris 02/10/2021 Mixed hyperlipidemia 02/10/2021 Chronic obstructive pulmonary disease 02/10/2021 Chronic respiratory failure with hypoxia 021 TRAVIS on CPAP 02/10/2021 Frequent falls 02/10/2021 Resolved Problems Problem Noted Date Diagnosed Date Resolved Date COPD (chronic obstructive pulmonary disease) 5 05/23/2024 Assessment & Plan (05/13/2024 2:35 PM DIVISION TRAFFIC SUPERINTENDENT): - home meds: albuterol, ipratopium-albuterol Discharge planning issues 05/13/2024 Assessment & Plan (05/18/2024 2:27 PM DIVISION TRAFFIC SUPERINTENDENT): - 05/14: orthostatic vital signs pending, syncope workup pending, awaiting PT/OT - 05/15: atrial fibrillation with RVR over PM, ECHO pending. Possible OR on 05/18 05/16 pending OR with Plastics on Saturday and Saturday. Echo completed EF 52% with extensive cardiac anomalies all stable. 05/18: Pending OR with PRS and ENT Treatment plan note [x] Chronic anticoagulation 07/18/2022/3 H/O cardiomyopathy 12/18/2021 Chronic heart failure with [...] on file Legal Sex Female 4:29 PM DIVISION TRAFFIC SUPERINTENDENT Gender Identity Not on file Sexual Orientation Not on file Last Filed Vital Signs Vital Sign Reading Time Taken Comments Blood Pressure 120/72 07/22/2024 9:18 AM CDT Pulse 81 07/22/2024 9:18 AM CDT Temperature 37.1 C (98.8 F) 05/27/2024 3:28 PM DIVISION TRAFFIC SUPERINTENDENT Respiratory Rate 20 05/27/2024 11:49 AM DIVISION TRAFFIC SUPERINTENDENT Oxygen Saturation 92% 07/22/2024 9:18 AM CDT 4L O2 Inhaled Oxygen Concentration - - Weight 102.5 kg (226 lb) 07/22/2024 9:18 AM CDT Height 165.1 cm (5' 5 ) 07/22/2024 9:18 AM CDT Body Mass Index 37.61 07/22/2024 9:18 AM CDT Plan of Treatment Not on file Medical Devices Implanted Type Area Disintegrator Device Identifier Shelf Expiration Date Model / Serial / Lot Implantech Sheeting Silastic Non Reinforced Alliedsil [id number] Silicone - - [id number] Implanted:Qty: 1 on 05/19/2024 by Annemarie Lea MD at [facility] Other - see comments Right: Face Implantech 07/03/2028- / / [place] Craniomaxillofacial Craniomaxillofacial Right 3d Large Implant Orbital Medpor Titan [id number] - [id number] Implanted:Qty: 1 on 05/19/2024 by Annemarie Lea MD at [facility] Other - see comments Right: Face Luis Carlos Craniomaxillofacial 08/19/2032 [id number] / / [place] Craniomaxillofacial 1.2mm 4mm Self Drill Axial Stability Lower Profile Screw Bone [id number] - [id number] Implanted:Qty: 1 on 05/19/2024 by Annemarie Lea MD at [facility] Other - see comments Right: Face [place] Craniomaxillofacial 56-1290 4 / / Medart[employer] Plt 2.5 Adaptive Ii Trilock Dist Rad Vol L 10h Narrow T2.0 A-4750.101 - [id number] Implanted:Qty: 1 on 05/18/2024 by Margy Walker MD PhD at [facility] Left: Wrist [employer] A-4750. 101 / / [employer] 2.5mm 18mm Lock Cortical Screw Bone A-5750.18 - [id number] Implanted:Qty: 1 on 05/18/2024 by Margy Walker MD PhD at [facility] Left: Wrist [employer] A-5750. 18 / / [employer] 2.5mm 22mm Lock Cortical Screw Bone A-5750.22 - [id number] Implanted:Qty: 2 on 05/18/2024 by Margy Walker MD PhD at [facility] Left: Wrist [employer] A-5750. 22 / / [employer] 2.5mm 20mm Lock Cortical Screw Bone A-5750.20 - [id number] Implanted:Qty: 3 on 05/18/2024 by Margy Walker MD PhD at [facility] Left: Wrist [employer] A-5750. 20 / / [employer] Aptus 2.5mm 14mm Lock Cortical Screw Bone A-5750.14 - [id number] Implanted:Qty: 2 on 05/18/2024 by Margy Walker MD PhD at [facility] Left: Wrist [employer] A-5750. 14 / / [employer] Aptus 2.5mm 14mm Cortical Screw Bone A-5700.14 - [id number] Implanted:Qty: 1 on 05/18/2024 by Margy Walker MD PhD at [facility] Left: Wrist [employer] A-5700. 14 / / [employer] 2.5mm 12mm Lock Cortical Screw Bone A-5750.12 - [id number] Implanted:Qty: 1 on 05/18/2024 by Margy Walker MD PhD at [facility] Left: Wrist [employer] A-5750. 12 / / Explanted Type Area Disintegrator Device Identifier Shelf Expiration Date Model / Serial / Lot [employer] Aptus 2.5mm 16mm Cortical Screw Bone A-5700.16 - [id number] Explanted:Qty: 1 on 05/18/2024 by Margy Walker MD PhD at [facility] Left: Wrist [employer] A-5700 .16 / / [employer] 2.5mm 18mm Lock Cortical Screw Bone A-5750.18 - [id number] Explanted:Qty: 1 on 05/18/2024 at [facility] Left: Wrist [employer] A-5750 .18 / [...] W VIDEO IP Routine 05/27/2024 10:35 AM DIVISION TRAFFIC SUPERINTENDENT EGFR Routine 05/26/2024 9:12 PM DIVISION TRAFFIC SUPERINTENDENT BASIC METABOLIC PANEL Routine 05/26/2024 9:12 PM DIVISION TRAFFIC SUPERINTENDENT CBC WITHOUT DIFFERENTIAL Routine 05/26/2024 9:12 PM DIVISION TRAFFIC SUPERINTENDENT MAGNESIUM Routine 05/26/2024 9:12 PM DIVISION TRAFFIC SUPERINTENDENT PHOSPHORUS Routine 05/26/2024 9:12 PM DIVISION TRAFFIC SUPERINTENDENT PEP THERAPY Routine 05/26/2024 12:01 PM DIVISION TRAFFIC SUPERINTENDENT PEP THERAPY Routine 05/26/2024 6:01 AM DIVISION TRAFFIC SUPERINTENDENT PEP THERAPY Routine 05/26/2024 12:00 AM DIVISION TRAFFIC SUPERINTENDENT EGFR Routine 05/25/2024 9:54 PM DIVISION TRAFFIC SUPERINTENDENT BASIC METABOLIC PANEL Routine 05/25/2024 9:54 PM DIVISION TRAFFIC SUPERINTENDENT CBC WITHOUT DIFFERENTIAL Routine 05/25/2024 9:54 PM DIVISION TRAFFIC SUPERINTENDENT MAGNESIUM Routine 05/25/2024 9:54 PM DIVISION TRAFFIC SUPERINTENDENT PHOSPHORUS Routine 05/25/2024 9:54 PM DIVISION TRAFFIC SUPERINTENDENT PEP THERAPY Routine 05/25/2024 6:00 PM DIVISION TRAFFIC SUPERINTENDENT PEP THERAPY Routine 05/25/2024 12:00 PM DIVISION TRAFFIC SUPERINTENDENT PEP THERAPY Routine 05/25/2024 6:01 AM DIVISION TRAFFIC SUPERINTENDENT PEP THERAPY Routine 05/25/2024 12:00 AM DIVISION TRAFFIC SUPERINTENDENT ECG 12-LEAD STAT 05/24/2024 10:55 PM DIVISION TRAFFIC SUPERINTENDENT EGFR Routine 05/24/2024 8:54 PM DIVISION TRAFFIC SUPERINTENDENT BASIC METABOLIC PANEL Routine 05/24/2024 8:54 PM DIVISION TRAFFIC SUPERINTENDENT CBC WITHOUT DIFFERENTIAL Routine 05/24/2024 8:54 PM DIVISION TRAFFIC SUPERINTENDENT MAGNESIUM Routine 05/24/2024 8:54 PM DIVISION TRAFFIC SUPERINTENDENT PHOSPHORUS Routine 05/24/2024 8:54 PM DIVISION TRAFFIC SUPERINTENDENT PEP THERAPY Routine 05/24/2024 6:00 PM DIVISION TRAFFIC SUPERINTENDENT PEP THERAPY Routine 05/24/2024 12:00 PM DIVISION TRAFFIC SUPERINTENDENT PEP THERAPY Routine 05/24/2024 6:00 AM DIVISION TRAFFIC SUPERINTENDENT PEP THERAPY Routine 05/24/2024 12:00 AM DIVISION TRAFFIC SUPERINTENDENT ECG 12-LEAD Routine 05/23/2024 11:24 PM DIVISION TRAFFIC SUPERINTENDENT EGFR Routine 05/23/2024 8:13 PM DIVISION TRAFFIC SUPERINTENDENT BASIC METABOLIC PANEL Routine 05/23/2024 8:13 PM DIVISION TRAFFIC SUPERINTENDENT CBC WITHOUT DIFFERENTIAL Routine 05/23/2024 8:13 PM DIVISION TRAFFIC SUPERINTENDENT MAGNESIUM Routine 05/23/2024 8:13 PM DIVISION TRAFFIC SUPERINTENDENT PHOSPHORUS Routine 05/23/2024 8:13 PM DIVISION TRAFFIC SUPERINTENDENT PEP THERAPY Routine 05/23/2024 6:00 PM DIVISION TRAFFIC SUPERINTENDENT PEP THERAPY Routine 05/23/2024 12:00 PM DIVISION TRAFFIC SUPERINTENDENT CRITICAL CARE Routine 05/23/2024 6:40 AM DIVISION TRAFFIC SUPERINTENDENT Fall, initial encounter PEP THERAPY Routine 05/23/2024 6:00 AM DIVISION TRAFFIC SUPERINTENDENT PEP THERAPY Routine 05/23/2024 12:01 AM DIVISION TRAFFIC SUPERINTENDENT POCT GLUCOSE DEVICE Routine 05/22/2024 11:10 PM DIVISION TRAFFIC SUPERINTENDENT EGFR Routine 05/22/2024 8:23 PM DIVISION TRAFFIC SUPERINTENDENT BASIC METABOLIC PANEL Routine 05/22/2024 8:23 PM DIVISION TRAFFIC SUPERINTENDENT CBC WITHOUT DIFFERENTIAL Routine 05/22/2024 8:23 PM DIVISION TRAFFIC SUPERINTENDENT MAGNESIUM Routine 05/22/2024 8:23 PM DIVISION TRAFFIC SUPERINTENDENT PHOSPHORUS Routine 05/22/2024 8:23 PM DIVISION TRAFFIC SUPERINTENDENT CRITICAL CARE Routine 05/22/2024 7:32 PM DIVISION TRAFFIC SUPERINTENDENT Fall, initial encounter POCT GLUCOSE DEVICE Routine 05/22/2024 6 :58 PM DIVISION TRAFFIC SUPERINTENDENT PEP THERAPY Routine 05/22/2024 6:00 PM DIVISION TRAFFIC SUPERINTENDENT IRON PROFILE W/ IBC STAT 05/22/2024 3 :44 PM DIVISION TRAFFIC SUPERINTENDENT POCT GLUCOSE DEVICE Routine 05/22/2024 3 :03 PM DIVISION TRAFFIC SUPERINTENDENT PEP THERAPY Routine 05/22/2024 12:00 PM DIVISION TRAFFIC SUPERINTENDENT POCT GLUCOSE DEVICE Routine 05/22/2024 10:55 AM DIVISION TRAFFIC SUPERINTENDENT POCT GLUCOSE DEVICE Routine 05/22/2024 7 :01 AM DIVISION TRAFFIC SUPERINTENDENT CRITICAL CARE Routine 05/22/2024 6:44 AM DIVISION TRAFFIC SUPERINTENDENT Fall, initial encounter PEP THERAPY Routine 05/22/2024 6:01 AM DIVISION TRAFFIC SUPERINTENDENT BLOOD GAS, ARTERIAL Routine 05/22/2024 4 :31 AM DIVISION TRAFFIC SUPERINTENDENT POCT GLUCOSE DEVICE Routine 05/22/2024 3 :02 AM DIVISION TRAFFIC SUPERINTENDENT PEP THERAPY Routine 05/22/2024 12:00 AM DIVISION TRAFFIC SUPERINTENDENT POCT GLUCOSE DEVICE Routine 05/21/2024 10:54 PM DIVISION TRAFFIC SUPERINTENDENT EGFR Routine 05/21/2024 8:54 PM DIVISION TRAFFIC SUPERINTENDENT BLOOD GAS, ARTERIAL Routine 05/21/2024 8 :54 PM DIVISION TRAFFIC SUPERINTENDENT BASIC METABOLIC PANEL Routine 05/21/2024 8:54 PM DIVISION TRAFFIC SUPERINTENDENT CBC WITHOUT DIFFERENTIAL Routine 05/21/2024 8:54 PM DIVISION TRAFFIC SUPERINTENDENT MAGNESIUM Routine 05/21/2024 8:54 PM DIVISION TRAFFIC SUPERINTENDENT PHOSPHORUS Routine 05/21/2024 8:54 PM DIVISION TRAFFIC SUPERINTENDENT XR CHEST 1 VIEW IP Routine 05/21/2024 8:36 PM DIVISION TRAFFIC SUPERINTENDENT CRITICAL CARE Routine 05/21/2024 8:00 PM DIVISION TRAFFIC SUPERINTENDENT Fall, initial encounter POCT GLUCOSE DEVICE Routine 05/21/2024 7 :43 PM DIVISION TRAFFIC SUPERINTENDENT PEP THERAPY Routine 05/21/2024 6:00 PM DIVISION TRAFFIC SUPERINTENDENT BLOOD GAS, ARTERIAL STAT 05/21/2024 3 :11 PM DIVISION TRAFFIC SUPERINTENDENT POCT GLUCOSE DEVICE Routine 05/21/2024 3 :10 PM DIVISION TRAFFIC SUPERINTENDENT EXTUBATION Routine 05/21/2024 2:27 PM DIVISION TRAFFIC SUPERINTENDENT PEP THERAPY Routine 05/21/2024 12:00 PM DIVISION TRAFFIC SUPERINTENDENT POCT GLUCOSE DEVICE Routine 05/21/2024 11:14 AM DIVISION TRAFFIC SUPERINTENDENT T4, FREE Routine 05/21/2024 9:07 AM DIVISION TRAFFIC SUPERINTENDENT AMMONIA Routine 05/21/2024 9:07 AM DIVISION TRAFFIC SUPERINTENDENT THYROID FUNCTION CASCADE Routine 05/21/2024 9:07 AM DIVISION TRAFFIC SUPERINTENDENT TRIGLYCERIDES Timed 05/21/2024 9:07 AM DIVISION TRAFFIC SUPERINTENDENT POCT GLUCOSE DEVICE Routine 05/21/2024 7 :24 AM DIVISION TRAFFIC SUPERINTENDENT CRITICAL CARE Routine 05/21/2024 7:02 AM DIVISION TRAFFIC SUPERINTENDENT Fall, initial encounter PEP THERAPY Routine 05/21/2024 6:01 AM DIVISION TRAFFIC SUPERINTENDENT POCT GLUCOSE DEVICE Routine 05/21/2024 3 :47 AM DIVISION TRAFFIC SUPERINTENDENT XR CHEST 1 VIEW ED Urgent/IP Urgent 05/21/2024 12:12 AM DIVISION TRAFFIC SUPERINTENDENT PEP THERAPY Routine 05/21/2024 12:00 AM DIVISION TRAFFIC SUPERINTENDENT POCT GLUCOSE DEVICE Routine 05/20/2024 11:29 PM DIVISION TRAFFIC SUPERINTENDENT XR ABDOMEN AP 1 VIEW ED Urgent/IP Urgent 05/20/2024 8:05 PM DIVISION TRAFFIC SUPERINTENDENT EGFR Routine 05/20/2024 7:44 PM DIVISION TRAFFIC SUPERINTENDENT BASIC METABOLIC PANEL Routine 05/20/2024 7:44 PM DIVISION TRAFFIC SUPERINTENDENT CBC WITHOUT DIFFERENTIAL Routine 05/20/2024 7:44 PM DIVISION TRAFFIC SUPERINTENDENT MAGNESIUM Routine 05/20/2024 7:44 PM DIVISION TRAFFIC SUPERINTENDENT PHOSPHORUS Routine 05/20/2024 7:44 PM DIVISION TRAFFIC SUPERINTENDENT POCT GLUCOSE DEVICE Routine 05/20/2024 7 :36 PM DIVISION TRAFFIC SUPERINTENDENT CRITICAL CARE Routine 05/20/2024 6:22 PM DIVISION TRAFFIC SUPERINTENDENT Fall, initial encounter PEP THERAPY Routine 05/20/2024 6:00 PM DIVISION TRAFFIC SUPERINTENDENT POCT GLUCOSE DEVICE Routine 05/20/2024 3 :33 PM DIVISION TRAFFIC SUPERINTENDENT PEP THERAPY Routine 05/20/2024 12:00 PM DIVISION TRAFFIC SUPERINTENDENT POCT GLUCOSE DEVICE Routine 05/20/2024 11:36 AM DIVISION TRAFFIC SUPERINTENDENT POCT GLUCOSE DEVICE Routine 05/20/2024 7 :28 AM DIVISION TRAFFIC SUPERINTENDENT CRITICAL CARE Routine 05/20/2024 7:27 AM DIVISION TRAFFIC SUPERINTENDENT Fall, initial encounter XR CHEST 1 VIEW ED Urgent/IP Urgent 05/20/2024 6:25 AM DIVISION TRAFFIC SUPERINTENDENT PEP THERAPY Routine 05/20/2024 6:01 AM DIVISION TRAFFIC SUPERINTENDENT POCT GLUCOSE DEVICE Routine 05/20/2024 3 :47 AM DIVISION TRAFFIC SUPERINTENDENT BLOOD GAS, ARTERIAL STAT 05/20/2024 3 :01 AM DIVISION TRAFFIC SUPERINTENDENT PEP THERAPY Routine 05/20/2024 12:00 AM DIVISION TRAFFIC SUPERINTENDENT POCT GLUCOSE DEVICE Routine 05/19/2024 11:34 PM DIVISION TRAFFIC SUPERINTENDENT REPOSITION ENDOTRACHEAL TUBE Routine 05/19/2024 10:35 PM DIVISION TRAFFIC SUPERINTENDENT EGFR Routine 05/19/2024 9:35 PM DIVISION TRAFFIC SUPERINTENDENT BLOOD GAS, ARTERIAL Routine 05/19/2024 9 :35 PM DIVISION TRAFFIC SUPERINTENDENT BASIC METABOLIC PANEL Routine 05/19/2024 9:35 PM DIVISION TRAFFIC SUPERINTENDENT CBC WITHOUT DIFFERENTIAL Routine 05/19/2024 9:35 PM DIVISION TRAFFIC SUPERINTENDENT MAGNESIUM Routine 05/19/2024 9:35 PM DIVISION TRAFFIC SUPERINTENDENT PHOSPHORUS Routine 05/19/2024 9:35 PM DIVISION TRAFFIC SUPERINTENDENT CRITICAL CARE Routine 05/19/2024 8:59 PM DIVISION TRAFFIC SUPERINTENDENT Fall, initial encounter POCT GLUCOSE DEVICE Routine 05/19/2024 7 :36 PM DIVISION TRAFFIC SUPERINTENDENT PEP THERAPY Routine 05/19/2024 6:00 PM DIVISION TRAFFIC SUPERINTENDENT POCT GLUCOSE DEVICE Routine 05/19/2024 3 :43 PM DIVISION TRAFFIC SUPERINTENDENT RT COMMUNICATION Routine 05/19/2024 2:30 PM DIVISION TRAFFIC SUPERINTENDENT XR CHEST 1 VIEW ED Urgent/IP Urgent 05/19/2024 2:08 PM DIVISION TRAFFIC SUPERINTENDENT POCT GLUCOSE DEVICE Routine 05/19/2024 12:49 PM DIVISION TRAFFIC SUPERINTENDENT EGFR STAT 05/19/2024 12:45 PM DIVISION TRAFFIC SUPERINTENDENT PHOSPHORUS STAT 05/19/2024 12:45 PM DIVISION TRAFFIC SUPERINTENDENT MAGNESIUM STAT 05/19/2024 12:45 PM DIVISION TRAFFIC SUPERINTENDENT BASIC METABOLIC PANEL STAT 05/19/2024 12:45 PM DIVISION TRAFFIC SUPERINTENDENT CBC WITHOUT DIFFERENTIAL STAT 05/19/2024 12:45 PM DIVISION TRAFFIC SUPERINTENDENT BLOOD GAS, ARTERIAL STAT 05/19/2024 12:45 PM DIVISION TRAFFIC SUPERINTENDENT PEP THERAPY Routine 05/19/2024 12:00 PM DIVISION TRAFFIC SUPERINTENDENT FL FLUOROSCOPY < 1 HOUR IP Routine 05/19/2024 11:22 AM DIVISION TRAFFIC SUPERINTENDENT POC BLOOD GAS AND CHEMISTRIES, ARTERIAL Routine 05/19/2024 10:38 AM DIVISION TRAFFIC SUPERINTENDENT OR AN PROCEDURE PLACEHOLDER Routine 05/19/2024 9:51 AM DIVISION TRAFFIC SUPERINTENDENT OR AN PROCEDURE PLACEHOLDER Routine 05/19/2024 9:46 AM DIVISION TRAFFIC SUPERINTENDENT OR AN ELECTIVE ENDOTRACHEAL AIRWAY Routine 05/19/2024 9:46 AM DIVISION TRAFFIC SUPERINTENDENT POC BLOOD GAS AND CHEMISTRIES, ARTERIAL Routine 05/19/2024 8:35 AM DIVISION TRAFFIC SUPERINTENDENT OPEN REDUCTION INTERNAL FIXATION ORBITAL FRACTURE. 05/19/2024 7:54 AM DIVISION TRAFFIC SUPERINTENDENT Fall, initial encounter Closed fracture of right orbital floor, initial encounter ([facility]) Case Notes [id number]/18@0831- Per Shavonne via email make first start - DMF [id number]- Per Dr. Lea via case msg - Outpatient, 2 hours- [id number]- Case msg sent to fiber optic central office installer for ctc and po destination- DMF POCT GLUCOSE DEVICE Routine 05/19/2024 7 :36 AM DIVISION TRAFFIC SUPERINTENDENT CRITICAL CARE Routine 05/19/2024 7:06 AM DIVISION TRAFFIC SUPERINTENDENT Fall, initial encounter PEP THERAPY Routine 05/19/2024 6:01 AM DIVISION TRAFFIC SUPERINTENDENT CRITICAL RESULT CALLBACK CHEMISTRY Timed 05/19/2024 5:18 AM DIVISION TRAFFIC SUPERINTENDENT TYPE AND SCREEN Timed 05/19/2024 5:18 AM DIVISION TRAFFIC SUPERINTENDENT BLOOD GAS, VENOUS Timed 05/19/2024 5:1 8 AM DIVISION TRAFFIC SUPERINTENDENT CRITICAL RESULT CALLBACK CHEMISTRY Timed 05/19/2024 3:41 AM DIVISION TRAFFIC SUPERINTENDENT BLOOD GAS, ARTERIAL Timed 05/19/2024 3 :41 AM DIVISION TRAFFIC SUPERINTENDENT XR CHEST 1 VIEW ED Urgent/IP Urgent 05/19/2024 3:20 AM DIVISION TRAFFIC SUPERINTENDENT CRITICAL CARE Routine 05/19/2024 3:00 AM DIVISION TRAFFIC SUPERINTENDENT POCT GLUCOSE DEVICE Routine 05/19/2024 2 :38 AM DIVISION TRAFFIC SUPERINTENDENT CTA/CTP RAPID STROKE Critical/Life-T hreatening 05/19/2024 2:26 AM DIVISION TRAFFIC SUPERINTENDENT POCT BH-I-WQA-GLU-HCT,WB - ISTAT Routine 05/19/2024 1:27 AM DIVISION TRAFFIC SUPERINTENDENT ARTERIAL BLOOD GAS W/LACTATE Routine 05/19/2024 1:22 AM DIVISION TRAFFIC SUPERINTENDENT POCT GLUCOSE DEVICE Routine 05/19/2024 1 :15 AM DIVISION TRAFFIC SUPERINTENDENT EGFR Routine 05/19/2024 12:55 AM DIVISION TRAFFIC SUPERINTENDENT POTASSIUM, WHOLE BLOOD STAT 05/19/2024 12:55 AM DIVISION TRAFFIC SUPERINTENDENT BASIC METABOLIC PANEL Routine 05/19/2024 12:55 AM DIVISION TRAFFIC SUPERINTENDENT CBC WITHOUT DIFFERENTIAL Routine 05/19/2024 12:55 AM DIVISION TRAFFIC SUPERINTENDENT MAGNESIUM Routine 05/19/2024 12:55 AM DIVISION TRAFFIC SUPERINTENDENT PHOSPHORUS Routine 05/19/2024 12:55 AM DIVISION TRAFFIC SUPERINTENDENT PEP THERAPY Routine 05/19/2024 12:00 AM DIVISION TRAFFIC SUPERINTENDENT PEP THERAPY Routine 05/18/2024 6:00 PM DIVISION TRAFFIC SUPERINTENDENT OR AN PROCEDURE PLACEHOLDER Routine 05/18/2024 4:41 PM DIVISION TRAFFIC SUPERINTENDENT OR AN ELECTIVE ENDOTRACHEAL AIRWAY Routine 05/18/2024 4:41 PM DIVISION TRAFFIC SUPERINTENDENT OR AN PROCEDURE PLACEHOLDER Routine 05/18/2024 3:47 PM DIVISION TRAFFIC SUPERINTENDENT RELEASE CARPAL TUNNEL 05/18/2024 3:02 PM DIVISION TRAFFIC SUPERINTENDENT Other closed intra-articular fracture of distal end of left radius, initial encounter Case Notes 05/15 per yesenia via case message, ctc is 90 min and post op is surg floor- RC OPEN REDUCTION INTERNAL FIXATION RADIUS - DISTAL 05/18/2024 3:02 PM DIVISION TRAFFIC SUPERINTENDENT Other closed intra-articular fracture of distal end of left radius, initial encounter Case Notes 05/15 per yesenia via case message, ctc is 90 min and post op is surg floor- RC PEP THERAPY Routine 05/18/2024 12:00 PM DIVISION TRA[employer]IC SUPERINTENDENT PEP THERAPY Routine 05/18/2024 6:01 AM DIVISION TRAFFIC SUPERINTENDENT PEP THERAPY Routine 05/18/2024 12:00 AM DIVISION TRAFFIC SUPERINTENDENT EGFR Routine 05/17/2024 11:56 PM DIVISION TRAFFIC SUPERINTENDENT BASIC METABOLIC PANEL Routine 05/17/2024 11:56 PM DIVISION TRAFFIC SUPERINTENDENT CBC WITHOUT DIFFERENTIAL Routine 05/17/2024 11:56 PM DIVISION TRAFFIC SUPERINTENDENT MAGNESIUM Routine 05/17/2024 11:56 PM DIVISION TRAFFIC SUPERINTENDENT PHOSPHORUS Routine 05/17/2024 11:56 PM DIVISION TRAFFIC SUPERINTENDENT PEP THERAPY Routine 05/17/2024 6:00 PM DIVISION TRAFFIC SUPERINTENDENT PEP THERAPY Routine 05/17/2024 1:43 PM DIVISION TRAFFIC SUPERINTENDENT PEP THERAPY Routine 05/17/2024 1:43 PM DIVISION TRAFFIC SUPERINTENDENT PEP THERAPY Routine 05/17/2024 1:43 PM DIVISION TRAFFIC SUPERINTENDENT PEP THERAPY Routine 05/17/2024 1:43 PM DIVISION TRAFFIC SUPERINTENDENT EGFR Routine 05/16/2024 10:25 PM DIVISION TRAFFIC SUPERINTENDENT BASIC METABOLIC PANEL Routine 05/16/2024 10:25 PM DIVISION TRAFFIC SUPERINTENDENT CBC WITHOUT DIFFERENTIAL Routine 05/16/2024 10:25 PM DIVISION TRAFFIC SUPERINTENDENT MAGNESIUM Routine 05/16/2024 10:25 PM DIVISION TRAFFIC SUPERINTENDENT PHOSPHORUS Routine 05/16/2024 10:25 PM DIVISION TRAFFIC SUPERINTENDENT from Last 3 Months Results * TRANSTHORACIC ECHO (TTE) COMPLETE W DOPPLER/CF WO CONTRAST (08/06/2024 2:36 PM CDT) EF Mod BP 52 % CONS SCIMAGE Anatomical Region Laterality Modality Ultrasound 08/06/2024 1:53 PM CDT Narrative 08/06/2024 3:20 PM CDT [facility] [address], [address], [place] [address] P:[phone] P:[phone] Echocardiographic Report Patient Name: HAMMAD LORRAINE, J : 1945 Study Date: 08/06/2024 1:53:54 [...] FINDINGS: Interpretation Site: Exam was interpreted at [facility]. Left Ventricle: Normal left ventricular [...] fibrillation. Electronically Signed By: Dr. Nedra Burns [facility] 08/06/2024 3:19:51 PM CDT Procedure Note Nedra Burns MD - 08/06/2024 [facility] [address], [address], [place] [address] P:[phone] P:[phone] Echocardiographic Report Patient Name: LORRAINE WALLER J [...] FINDINGS: Interpretation Site: Exam was interpreted at [facility]. Left Ventricle: Normal left ventricular [...] fibrillation. Electronically Signed By: Dr. Nedra Burns [facility] 08/06/2024 3:19:51 PM CDT [facility] Ludin Jimenez MD CV ECHO PROCEDURES Kylie [...] Barium Swallow W Video (05/27/2024 10:35 AM DIVISION TRAFFIC SUPERINTENDENT) Anatomical Region Laterality Modality Head and Neck N/A Radio Fluoroscop y 05/27/2024 11:0 1 AM DIVISION TRAFFIC SUPERINTENDENT Impressions 05/27/2024 11:14 AM DIVISION TRAFFIC SUPERINTENDENT The swallowing mechanism is normal; see above [...] Serrano M.D., Ph.D Narrative 05/27/2024 11:14 AM DIVISION TRAFFIC SUPERINTENDENT EXAMINATION: MODIFIED BARIUM SWALLOW HISTORY: Dysphagia. TECHNIQUE: [...] by: Murtaza Serrano M.D., Ph.D Debby Gaona NP IMG FLUOROSCOPY PROCED URES Final Result * eGFR (05/26/2024 9:12 PM DIVISION TRAFFIC SUPERINTENDENT) eGFR 88 >=60 mL/min/1. 73 m2 Comment: [...] last reviewed 2021. Blood 05/26/2024 9:12 PM DIVISION TRAFFIC SUPERINTENDENT 05/26/2024 9:54 PM DIVISION TRAFFIC SUPERINTENDENT Brissa Ko MD LAB BLOOD ORDERABLES Final Result Performing Organization Address City/[facility]/ZIP Co de Phone Number [facility] [place] [address] * (ABNORMAL) CBC without differential (05/26/2024 9:12 PM DIVISION TRAFFIC SUPERINTENDENT) WBC 8.8 3.8 - 9.9 K/cumm Hgb 9.7(L) 11.9 - 15.5 g/dL [facility] Hct 32.8(L) 35.6 - 45.5 % [facility] Plt 209 150 - 400 K/cumm [facility] MPV 11.9 9.1 - 12.3 fL [facility] RBC 3.36(L) 3.90 - 5.20 M/cumm [facility] MCV 97.6(H) 81.3 - 96.4 fL [facility] MCH 28.9 27.1 - 33.3 pg [facility] MCHC 29.6(L) 32.3 - 35.7 g/dL [facility] RDW CV 14.2 11.1 - 14.9 % [facility] RDW SD 50.4(H) 35.7 - 48.1 fL [facility] NRBC abs 0.00 0.00 - 0.01 K/cumm [facility] Blood 05/26/2024 9:12 PM DIVISION TRAFFIC SUPERINTENDENT 05/26/2024 9:54 PM DIVISION TRAFFIC SUPERINTENDENT us Brissa Ko MD LAB BLOOD ORDERABLES Final Result Performing Organization Address City/[facility]/ZIP Co de Phone Number [facility] [place] [address] * Phosphorus (05/26/2024 9:12 PM DIVISION TRAFFIC SUPERINTENDENT) [facility] Phosphorus, pl 2.8 2.3 - 4.5 mg/dL Blood 05/26/2024 9:12 PM DIVISION TRAFFIC SUPERINTENDENT 05/26/2024 9:54 PM DIVISION TRAFFIC SUPERINTENDENT Brissa Ko MD LAB BLOOD ORDERABLES Final Result Performing Organization Address City/[facility]/ZIP Co de Phone Number [facility] [place] [address] * Magnesium (05/26/2024 9:12 PM DIVISION TRAFFIC SUPERINTENDENT) [facility] Magnesium 2.0 1.4 - 2.5 mg/dL Blood 05/26/2024 9:12 PM DIVISION TRAFFIC SUPERINTENDENT 05/26/2024 9:54 PM DIVISION TRAFFIC SUPERINTENDENT Brissa Ko MD LAB BLOOD ORDERABLES Final Result Performing Organization Address [facility] de Phone Number [facility] [place] [address] * Basic metabolic panel (05/26/2024 9:12 PM DIVISION TRAFFIC SUPERINTENDENT) [facility] Sodium 143 135 - 145 mmol/L Potassium, pl 4.2 3.3 - 4.9 mmol/L [facility] Chloride 102 97 - 110 mmol/L [facility] CO2 31 22 - 32 mmol/L [facility] Anion gap 10 2 - 15 mmol/L [facility] BUN 21 6 - 25 mg/dL [facility] Creatinine 0.71 0.60 - 1.10 mg/dL [facility] Glucose 165 70 - 199 mg/dL [facility] Comment: Interpretive Data Fasting glucose >/= 126 [...] 2022. Calcium 9.3 8.5 - 10.3 mg/dL [facility] Blood 05/26/2024 9:12 PM DIVISION TRAFFIC SUPERINTENDENT 05/26/2024 9:54 PM DIVISION TRAFFIC SUPERINTENDENT Brissa Ko MD LAB BLOOD ORDERABLES Final Result Performing Organization Address City/[facility]/ZIP Co de Phone Number [facility] [email or web address] [address] * eGFR (05/25/2024 9:54 PM DIVISION TRAFFIC SUPERINTENDENT) eGFR >90 >=60 mL/min/1. 73 m2 Comment: [...] last reviewed 2021. Blood 05/25/2024 9:54 PM DIVISION TRAFFIC SUPERINTENDENT 05/25/2024 10:27 PM DIVISION TRAFFIC SUPERINTENDENT us Brissa Ko MD LAB BLOOD ORDERABLES Final Result Performing Organization Address City/[facility]/ZIP Co de Phone Number [facility] [place] [address] * (ABNORMAL) CBC without differential (05/25/2024 9:54 PM DIVISION TRAFFIC SUPERINTENDENT) [facility] WBC 6.4 3.8 - 9.9 K/cumm Hgb 9.4(L) 11.9 - 15.5 g/dL [facility] Hct 31.2(L) 35.6 - 45.5 % [facility] Plt 170 150 - 400 K/cumm [facility] MPV 11.5 9.1 - 12.3 fL [facility] RBC 3.22(L) 3.90 - 5.20 M/cumm [facility] MCV 96.9(H) 81.3 - 96.4 fL [facility] MCH 29.2 27.1 - 33.3 pg [facility] MCHC 30.1(L) 32.3 - 35.7 g/dL [facility] RDW CV 14.3 11.1 - 14.9 % [facility] RDW SD 50.5(H) 35.7 - 48.1 fL [facility] NRBC abs 0.00 0.00 - 0.01 K/cumm [facility] Blood 05/25/2024 9:54 PM DIVISION TRAFFIC SUPERINTENDENT 05/25/2024 10:27 PM DIVISION TRAFFIC SUPERINTENDENT us Brissa Ko MD LAB BLOOD ORDERABLES Final Result Performing Organization Address City/[facility]/ZIP Co de Phone Number [facility] [place] [address] * Phosphorus (05/25/2024 9:54 PM DIVISION TRAFFIC SUPERINTENDENT) [facility] Phosphorus, pl 3.5 2.3 - 4.5 mg/dL Blood 05/25/2024 9:54 PM DIVISION TRAFFIC SUPERINTENDENT 05/25/2024 10:27 PM DIVISION TRAFFIC SUPERINTENDENT Brissa Ko MD LAB BLOOD ORDERABLES Final Result [facility] [place] [address] * Magnesium (05/25/2024 9:54 PM DIVISION TRAFFIC SUPERINTENDENT) Pathologist [facility] Magnesium 2.1 1.4 - 2.5 mg/dL Blood 05/25/2024 9:54 PM DIVISION TRAFFIC SUPERINTENDENT 05/25/2024 10:27 PM DIVISION TRAFFIC SUPERINTENDENT Brissa Ko MD LAB BLOOD ORDERABLES Final Result [facility] [place] [address] * (ABNORMAL) Basic metabolic panel (05/25/2024 9:54 PM DIVISION TRAFFIC SUPERINTENDENT) Pathologist [facility] Sodium 145 135 - 145 mmol/L Potassium, pl 4.4 3.3 - 4.9 mmol/L [facility] Chloride 105 97 - 110 mmol/L [facility] CO2 33(H) 22 - 32 mmol/L [facility] Anion gap 7 2 - 15 mmol/L [facility] BUN 13 6 - 25 mg/dL [facility] Creatinine 0.66 0.60 - 1.10 mg/dL [facility] Glucose 112 70 - 199 mg/dL [facility] Comment: Interpretive Data Fasting glucose >/= 126 [...] 2022. Calcium 9.2 8.5 - 10.3 mg/dL [facility] Blood 05/25/2024 9:54 PM DIVISION TRAFFIC SUPERINTENDENT 05/25/2024 10:27 PM DIVISION TRAFFIC SUPERINTENDENT Brissa Ko MD LAB BLOOD ORDERABLES Final Result [facility] [place] [address] * ECG 12 lead (05/24/2024 10:55 PM DIVISION TRAFFIC SUPERINTENDENT) Ventricular Rate EKG/Min 99 BPM [facility] QRS-Interval (MSEC) 86 ms [facility] QT-Interval (MSEC) 364 ms [facility] QTc 467 ms [facility] R [place] 91 degrees [facility] T [place] 160 degrees [facility] Diagnosis Atrial fibrillation/fl utter Rightward axis Low voltage QRS Cannot rule out Anterior infarct , age undetermined ST & T wave abnormality, consider lateral ischemia Abnormal ECG When compared with ECG of 23-MAY-2024 23:24, (unconfirmed) T wave inversion no longer evident in Anterior leads Confirmed by GABO PIEDRA M.D ([id number]) on 05/25/2024 3:55:52 PM [facility] 05/24/2024 10:5 5 PM DIVISION TRAFFIC SUPERINTENDENT 05/25/2024 3:55 PM DIVISION TRAFFIC SUPERINTENDENT us Brissa Ko MD ECG ORDERABLES Final Resul t [facility] * eGFR (05/24/2024 8:54 PM DIVISION TRAFFIC SUPERINTENDENT) eGFR 90 >=60 mL/min/1. 73 m2 Comment: [...] last reviewed 2021. Blood 05/24/2024 8:54 PM DIVISION TRAFFIC SUPERINTENDENT 05/24/2024 9:30 PM DIVISION TRAFFIC SUPERINTENDENT Brissa Ko MD LAB BLOOD ORDERABLES Final Result Performing Organization Address City/[facility]/ZIP Co de Phone Number [facility] [place] [address] * (ABNORMAL) CBC without differential (05/24/2024 8:54 PM DIVISION TRAFFIC SUPERINTENDENT) Pathologist [facility] WBC 7.1 3.8 - 9.9 K/cumm Hgb 9.1(L) 11.9 - 15.5 g/dL [facility] Hct 29.6(L) 35.6 - 45.5 % [facility] Plt 162 150 - 400 K/cumm [facility] MPV 11.4 9.1 - 12.3 fL [facility] RBC 3.10(L) 3.90 - 5.20 M/cumm [facility] MCV 95.5 81.3 - 96.4 fL [facility] MCH 29.4 27.1 - 33.3 pg [facility] MCHC 30.7(L) 32.3 - 35.7 g/dL [facility] RDW CV 14.5 11.1 - 14.9 % [facility] RDW SD 50.9(H) 35.7 - 48.1 fL [facility] NRBC abs 0.00 0.00 - 0.01 K/cumm [facility] Blood 05/24/2024 8:54 PM DIVISION TRAFFIC SUPERINTENDENT 05/24/2024 9:31 PM DIVISION TRAFFIC SUPERINTENDENT Brissa Ko MD LAB BLOOD ORDERABLES Final Result Performing Organization Address City/[facility]/ZIP Co de Phone Number [facility] [place] [address] * Phosphorus (05/24/2024 8:54 PM DIVISION TRAFFIC SUPERINTENDENT) [facility] Phosphorus, pl 2.5 2.3 - 4.5 mg/dL Blood 05/24/2024 8:54 PM DIVISION TRAFFIC SUPERINTENDENT 05/24/2024 9:30 PM DIVISION TRAFFIC SUPERINTENDENT Brissa Ko MD LAB BLOOD ORDERABLES Final Result Performing Organization Address City/[facility]/ZIP Co de Phone Number [facility] [place] [address] * Magnesium (05/24/2024 8:54 PM DIVISION TRAFFIC SUPERINTENDENT) [facility] Magnesium 2.0 1.4 - 2.5 mg/dL Blood 05/24/2024 8:54 PM DIVISION TRAFFIC SUPERINTENDENT 05/24/2024 9:30 PM DIVISION TRAFFIC SUPERINTENDENT Brissa Ko MD LAB BLOOD ORDERABLES Final Result Performing Organization Address [facility] de Phone Number [facility] [place] [address] * (ABNORMAL) Basic metabolic panel (05/24/2024 8:54 PM DIVISION TRAFFIC SUPERINTENDENT) [facility] Sodium 146(H) 135 - 145 mmol/L Potassium, pl 4.8 3.3 - 4.9 mmol/L [facility] Chloride 108 97 - 110 mmol/L [facility] CO2 30 22 - 32 mmol/L [facility] Anion gap 8 2 - 15 mmol/L [facility] BUN 19 6 - 25 mg/dL [facility] Creatinine 0.70 0.60 - 1.10 mg/dL [facility] Glucose 104 70 - 199 mg/dL [facility] Comment: Interpretive Data Fasting glucose >/= 126 [...] 2022. Calcium 9.1 8.5 - 10.3 mg/dL [facility] Blood 05/24/2024 8:54 PM DIVISION TRAFFIC SUPERINTENDENT 05/24/2024 9:30 PM DIVISION TRAFFIC SUPERINTENDENT us Brissa Ko MD LAB BLOOD ORDERABLES Final Result Performing Organization Address City/[facility]/ZIP Co de Phone Number [facility] [place] [address] * ECG 12 lead (05/23/2024 11:24 PM DIVISION TRAFFIC SUPERINTENDENT) Ventricular Rate EKG/Min 88 BPM [facility] QRS-Interval (MSEC) 84 ms [facility] QT-Interval (MSEC) 364 ms [facility] QTc 440 ms [facility] R [place] 96 degrees [facility] T [place] 148 degrees [facility] Diagnosis Atrial fibrillation/flu tter Rightward axis Low voltage QRS ST & T wave abnormality, consider anterolateral ischemia Abnormal ECG When compared with ECG of 15-MAY-2024 07:03, ST now depressed in Lateral leads Nonspecific T wave abnormality, improved in Inferior leads T wave inversion now evident in Anterolateral leads QT has shortened Confirmed by GABO PIEDRA M.D ([id number]) on 05/26/2024 11:12:20 AM [facility] 05/23/2024 11:2 4 PM DIVISION TRAFFIC SUPERINTENDENT 05/26/2024 11:12 AM DIVISION TRAFFIC SUPERINTENDENT us Brissa Ko MD ECG ORDERABLES Final Resul t Performing Organization Address City/[facility]/ZIP Co de Phone Number [facility] * eGFR (05/23/2024 8:13 PM DIVISION TRAFFIC SUPERINTENDENT) eGFR 80 >=60 mL/min/1. 73 m2 Comment: [...] last reviewed 2021. Blood 05/23/2024 8:13 PM DIVISION TRAFFIC SUPERINTENDENT 05/23/2024 9:00 PM DIVISION TRAFFIC SUPERINTENDENT Brissa Ko MD LAB BLOOD ORDERABLES Final Result [facility] [place] [address] * (ABNORMAL) CBC without differential (05/23/2024 8:13 PM DIVISION TRAFFIC SUPERINTENDENT) WBC 7.3 3.8 - 9.9 K/cumm Hgb 8.7(L) 11.9 - 15.5 g/dL [facility] Hct 29.1(L) 35.6 - 45.5 % [facility] Plt 153 150 - 400 K/cumm [facility] MPV 11.5 9.1 - 12.3 fL [facility] RBC 3.00(L) 3.90 - 5.20 M/cumm [facility] MCV 97.0(H) 81.3 - 96.4 fL [facility] MCH 29.0 27.1 - 33.3 pg [facility] MCHC 29.9(L) 32.3 - 35.7 g/dL [facility] RDW CV 14.6 11.1 - 14.9 % [facility] RDW SD 52.3(H) 35.7 - 48.1 fL [facility] NRBC abs 0.00 0.00 - 0.01 K/cumm [facility] Blood 05/23/2024 8:13 PM DIVISION TRAFFIC SUPERINTENDENT 05/23/2024 9:03 PM DIVISION TRAFFIC SUPERINTENDENT Brissa Ko MD LAB BLOOD ORDERABLES Final Result [facility] Department [place] [address] * (ABNORMAL) Phosphorus (05/23/2024 8:13 PM DIVISION TRAFFIC SUPERINTENDENT) Pathologist [facility] Phosphorus, pl 2.2(L) 2.3 - 4.5 mg/dL Blood 05/23/2024 8:13 PM DIVISION TRAFFIC SUPERINTENDENT 05/23/2024 9:00 PM DIVISION TRAFFIC SUPERINTENDENT Brissa Ko MD LAB BLOOD ORDERABLES Final Result Performing Organization Address City/[facility]/ZIP Co de Phone Number [facility] [place] [address] * Magnesium (05/23/2024 8:13 PM DIVISION TRAFFIC SUPERINTENDENT) Pathologist [facility] Magnesium 2.0 1.4 - 2.5 mg/dL Blood 05/23/2024 8:13 PM DIVISION TRAFFIC SUPERINTENDENT 05/23/2024 9:00 PM DIVISION TRAFFIC SUPERINTENDENT Brissa Ko MD LAB BLOOD ORDERABLES Final Result Performing Organization Address City/[facility]/ZIP Co de Phone Number [facility] [place] [address] * Basic metabolic panel (05/23/2024 8:13 PM DIVISION TRAFFIC SUPERINTENDENT) Pathologist [facility] Sodium 145 135 - 145 mmol/L Potassium, pl 4.2 3.3 - 4.9 mmol/L [facility] Chloride 106 97 - 110 mmol/L [facility] CO2 32 22 - 32 mmol/L [facility] Anion gap 7 2 - 15 mmol/L [facility] BUN 20 6 - 25 mg/dL [facility] Creatinine 0.77 0.60 - 1.10 mg/dL [facility] Glucose 148 70 - 199 mg/dL [facility] Comment: Interpretive Data Fasting glucose >/= 126 [...] 2022. Calcium 8.6 8.5 - 10.3 mg/dL [facility] Blood 05/23/2024 8:13 PM DIVISION TRAFFIC SUPERINTENDENT 05/23/2024 9:00 PM DIVISION TRAFFIC SUPERINTENDENT rBissa oK MD LAB BLOOD ORDERABLES Final Result [facility] [place] [address] * Critical Care (05/23/2024 6:40 AM DIVISION TRAFFIC SUPERINTENDENT) Narrative Kelvin Delgado MD - 05/23/2024 6:40 AM DIVISION TRAFFIC SUPERINTENDENT Kelvin Delgado MD 05/23/2024 5:18 PM Critical [...] plan with the patient's team and other medical/personnel consultant staff. This time was in addition to and separate from care provided by other practitioners on this day of service. I spent time reviewing and interpreting data from bedside monitors, laboratory results, and imaging and I spent time documenting in the medical record us Olga Meehan AUDITING MANAGER IN CLINIC/BEDSIDE O RDERABLES Final Result * POCT glucose (05/22/2024 11:10 PM DIVISION TRAFFIC SUPERINTENDENT) Glucose, POC 98 70 - 199 mg/dL Blood 05/22/2024 11:1 0 PM DIVISION TRAFFIC SUPERINTENDENT 05/22/2024 11:10 PM DIVISION TRAFFIC SUPERINTENDENT us Brissa Ko MD LAB POCT ORDERABLES - DEVIC E Final Result [facility] [place] [address] * eGFR (05/22/2024 8:23 PM DIVISION TRAFFIC SUPERINTENDENT) eGFR 71 >=60 mL/min/1. 73 m2 Comment: [...] last reviewed 2021. Blood 05/22/2024 8:23 PM DIVISION TRAFFIC SUPERINTENDENT 05/22/2024 8:36 PM DIVISION TRAFFIC SUPERINTENDENT us Brissa Ko MD LAB BLOOD ORDERABLES Final Result Performing Organization Address [facility] de Phone Number [facility] Department [place] [address] * (ABNORMAL) CBC without differential (05/22/2024 8:23 PM [employer]) Pathologist [facility] WBC 7.0 3.8 - 9.9 K/cumm Hgb 8.9(L) 11.9 - 15.5 g/dL [facility] Hct 29.2(L) 35.6 - 45.5 % [facility] Plt 158 150 - 400 K/cumm [facility] MPV 11.0 9.1 - 12.3 fL [facility] RBC 3.03(L) 3.90 - 5.20 M/cumm [facility] [facility] MCV 96.4 81.3 - 96.4 fL [facility] MCH 29.4 27.1 - 33.3 pg [facility] MCHC 30.5(L) 32.3 - 35.7 g/dL [facility] RDW CV 14.8 11.1 - 14.9 % [facility] RDW SD 52.5(H) 35.7 - 48.1 fL [facility] NRBC abs 0.00 0.00 - 0.01 K/cumm [facility] Blood 05/22/2024 8:23 PM DIVISION TRAFFIC SUPERINTENDENT 05/22/2024 8:36 PM DIVISION TRAFFIC SUPERINTENDENT Brissa Ko MD LAB BLOOD ORDERABLES Final Result Performing Organization Address [facility] Co de Phone Number [facility] [place] [address] * Phosphorus (05/22/2024 8:23 PM DIVISION TRAFFIC SUPERINTENDENT) Pathologist [facility] Phosphorus, pl 3.0 2.3 - 4.5 mg/dL Blood 05/22/2024 8:23 PM DIVISION TRAFFIC SUPERINTENDENT 05/22/2024 8:36 PM DIVISION TRAFFIC SUPERINTENDENT Brissa Ko MD LAB BLOOD ORDERABLES Final Result [facility] [place] [address] * Magnesium (05/22/2024 8:23 PM DIVISION TRAFFIC SUPERINTENDENT) [facility] Magnesium 2.2 1.4 - 2.5 mg/dL Blood 05/22/2024 8:23 PM DIVISION TRAFFIC SUPERINTENDENT 05/22/2024 8:36 PM DIVISION TRAFFIC SUPERINTENDENT Brissa Ko MD LAB BLOOD ORDERABLES Final Result Performing Organization Address [facility] Co de Phone Number [facility] Department [place] [address] * (ABNORMAL) Basic metabolic panel (05/22/2024 8:23 PM DIVISION TRAFFIC SUPERINTENDENT) [facility] Sodium 146(H) 135 - 145 mmol/L Potassium, pl 4.1 3.3 - 4.9 mmol/L [facility] Chloride 106 97 - 110 mmol/L [facility] CO2 33(H) 22 - 32 mmol/L [facility] Anion gap 7 2 - 15 mmol/L [facility] BUN 26(H) 6 - 25 mg/dL [facility] Creatinine 0.85 0.60 - 1.10 mg/dL [facility] Glucose 122 70 - 199 mg/dL [facility] Comment: Interpretive Data Fasting glucose >/= 126 [...] 2022. Calcium 8.2(L) 8.5 - 10.3 mg/dL [facility] Blood 05/22/2024 8:23 PM DIVISION TRAFFIC SUPERINTENDENT 05/22/2024 8:36 PM DIVISION TRAFFIC SUPERINTENDENT us Brissa Ko MD LAB BLOOD ORDERABLES Final Result [facility] [place] [address] * Critical Care (05/22/2024 7:32 PM DIVISION TRAFFIC SUPERINTENDENT) Narrative Murtaza Garcia MD - 05/22/2024 7:32 PM DIVISION TRAFFIC SUPERINTENDENT Murtaza Garcia MD 05/23/2024 6:19 AM Critical [...] plan with the patient's team and other medical/personnel consultant staff. This time was in addition to and separate from care provided by other practitioners on this day of service. us Preston HINOJOSA IN CLINIC/BEDSI DE ORDERABLES Final Result * POCT glucose (05/22/2024 6:58 PM DIVISION TRAFFIC SUPERINTENDENT) Glucose, POC 115 70 - 199 mg/dL Blood 05/22/2024 6:58 PM DIVISION TRAFFIC SUPERINTENDENT 05/22/2024 6:58 PM DIVISION TRAFFIC SUPERINTENDENT us Brissa Ko MD LAB POCT ORDERABLES - DEVIC E Final Result [facility] [place] [address] * (ABNORMAL) Iron profile w/ IBC (05/22/2024 3:44 PM DIVISION TRAFFIC SUPERINTENDENT) Iron 29(L) 35 - 145 mcg/dL TIBC 258 250 - 400 mcg/dL [facility] Transferrin saturation 11(L) 20 - 50 % [facility] Blood 05/22/2024 3:44 PM DIVISION TRAFFIC SUPERINTENDENT 05/22/2024 4:15 PM DIVISION TRAFFIC SUPERINTENDENT Earnestine Kelly MD LAB BLOOD ORDERABLES Kylie l Result [facility] [place] [address] * POCT glucose (05/22/2024 3:03 PM DIVISION TRAFFIC SUPERINTENDENT) Glucose, POC 111 70 - 199 mg/dL Blood 05/22/2024 3:03 PM DIVISION TRAFFIC SUPERINTENDENT 05/22/2024 3:03 PM DIVISION TRAFFIC SUPERINTENDENT Brissa Ko MD LAB POCT ORDERABLES - DEVIC E Final Result Performing Organization Address City/[facility]/ZIP Co de Phone Number [facility] [place] [address] * POCT glucose (05/22/2024 10:55 AM DIVISION TRAFFIC SUPERINTENDENT) Glucose, POC 130 70 - 199 mg/dL Blood 05/22/2024 10:5 5 AM DIVISION TRAFFIC SUPERINTENDENT 05/22/2024 10:55 AM DIVISION TRAFFIC SUPERINTENDENT Brissa Ko MD LAB POCT ORDERABLES - DEVIC E Final Result Performing Organization Address City/[facility] Co de Phone Number [facility] [place] [address] * POCT glucose (05/22/2024 7:01 AM DIVISION TRAFFIC SUPERINTENDENT) Glucose, POC 128 70 - 199 mg/dL Blood 05/22/2024 7:01 AM DIVISION TRAFFIC SUPERINTENDENT 05/22/2024 7:01 AM DIVISION TRAFFIC SUPERINTENDENT us Brissa Ko MD LAB POCT ORDERABLES - DEVIC E Final Result [facility] [place] [address] * Critical Care (05/22/2024 6:44 AM DIVISION TRAFFIC SUPERINTENDENT) Narrative Earnestine Kelly MD - 05/22/2024 6:44 AM DIVISION TRAFFIC SUPERINTENDENT Earnestine Kelly MD 05/22/2024 6:05 PM Critical [...] plan with the ICU team and other medical/personnel consultant staff, making frequent assessments and decisions [...] (ABNORMAL) Blood gas, arterial (05/22/2024 4:31 AM DIVISION TRAFFIC SUPERINTENDENT) pH, Art 7.44 7.35 - 7.45 PCO2, Arterial 49(H) 35 - 45 mmHg [facility] PO2, Arterial 136(H) 83 - 108 mmHg [facility] HCO3 Art (Calculated) 34(H) 20 - 30 mmol/L [facility] BE, art 8 mmol/L [facility] Comment: Interpretive Data No Reference Range Established Current Interpretive Data was last revised on 2017 O2 Sat Art (Measured) 100(H) 90 - 95 % [facility] Blood 05/22/2024 4:31 AM DIVISION TRAFFIC SUPERINTENDENT 05/22/2024 4:37 AM DIVISION TRAFFIC SUPERINTENDENT Lynsey Otoole NP LAB BLOOD ORDER TEDDY Final Result Performing Organization Address City/[facility] Co de Phone Number [facility] [place] [address] * POCT glucose (05/22/2024 3:02 AM DIVISION TRAFFIC SUPERINTENDENT) Glucose, POC 149 70 - 199 mg/dL Blood 05/22/2024 3:02 AM DIVISION TRAFFIC SUPERINTENDENT 05/22/2024 3:02 AM DIVISION TRAFFIC SUPERINTENDENT Brissa Ko MD LAB POCT ORDERABLES - DEVIC E Final Result Performing Organization Address [facility] de Phone Number [facility] [place] [address] * POCT glucose (05/21/2024 10:54 PM DIVISION TRAFFIC SUPERINTENDENT) Glucose, POC 122 70 - 199 mg/dL Blood 05/21/2024 10:5 4 PM DIVISION TRAFFIC SUPERINTENDENT 05/21/2024 10:54 PM DIVISION TRAFFIC SUPERINTENDENT Brissa Ko MD LAB POCT ORDERABLES - DEVIC E Final Result Performing Organization Address [facility] Co de Phone Number [facility] [place] [address] * eGFR (05/21/2024 8:54 PM DIVISION TRAFFIC SUPERINTENDENT) eGFR 71 >=60 mL/min/1. 73 m2 Comment: [...] last reviewed 2021. Blood 05/21/2024 8:54 PM DIVISION TRAFFIC SUPERINTENDENT 05/21/2024 9:16 PM DIVISION TRAFFIC SUPERINTENDENT Brissa Ko MD LAB BLOOD ORDERABLES Final Result [facility] Department [place] [address] * (ABNORMAL) CBC without differential (05/21/2024 8:54 PM DIVISION TRAFFIC SUPERINTENDENT) WBC 6.7 3.8 - 9.9 K/cumm Hgb 9.5(L) 11.9 - 15.5 g/dL [facility] Hct 29.7(L) 35.6 - 45.5 % [facility] Plt 145(L) 150 - 400 K/cumm [facility] MPV 10.9 9.1 - 12.3 fL [facility] RBC 3.14(L) 3.90 - 5.20 M/cumm [facility] MCV 94.6 81.3 - 96.4 fL [facility] MCH 30.3 27.1 - 33.3 pg [facility] MCHC 32.0(L) 32.3 - 35.7 g/dL [facility] RDW CV 14.8 11.1 - 14.9 % [facility] RDW SD 51.6(H) 35.7 - 48.1 fL [facility] NRBC abs 0.00 0.00 - 0.01 K/cumm [facility] Blood 05/21/2024 8:54 PM DIVISION TRAFFIC SUPERINTENDENT 05/21/2024 9:16 PM DIVISION TRAFFIC SUPERINTENDENT Brissa Ko MD LAB BLOOD ORDERABLES Final Result Performing Organization Address City/[facility] Co de Phone Number [facility] [place] [address] * Phosphorus (05/21/2024 8:54 PM DIVISION TRAFFIC SUPERINTENDENT) [facility] Phosphorus, pl 2.5 2.3 - 4.5 mg/dL Blood 05/21/2024 8:54 PM DIVISION TRAFFIC SUPERINTENDENT 05/21/2024 9:16 PM DIVISION TRAFFIC SUPERINTENDENT Brissa Ko MD LAB BLOOD ORDERABLES Final Result Performing Organization Address [facility] Co de Phone Number [facility] [place] [address] * Magnesium (05/21/2024 8:54 PM DIVISION TRAFFIC SUPERINTENDENT) [facility] Magnesium 1.9 1.4 - 2.5 mg/dL Blood 05/21/2024 8:54 PM DIVISION TRAFFIC SUPERINTENDENT 05/21/2024 9:16 PM DIVISION TRAFFIC SUPERINTENDENT Brissa Ko MD LAB BLOOD ORDERABLES Final Result Performing Organization Address [facility] Co de Phone Number [facility] [place] [address] * (ABNORMAL) Blood gas, arterial (05/21/2024 8:54 PM DIVISION TRAFFIC SUPERINTENDENT) Pathologist [facility] pH, Art 7.45 7.35 - 7.45 PCO2, Arterial 52(H) 35 - 45 mmHg [facility] PO2, Arterial 63(L) 83 - 108 mmHg [facility] HCO3 Art (Calculated) 37(H) 20 - 30 mmol/L [facility] BE, art 10 mmol/L [facility] Comment: Interpretive Data No Reference Range Established Current Interpretive Data was last revised on 2017 O2 Sat Art (Measured) 92 90 - 95 % [facility] Blood 05/21/2024 8:54 PM DIVISION TRAFFIC SUPERINTENDENT 05/21/2024 9:09 PM DIVISION TRAFFIC SUPERINTENDENT Brissa Ko MD LAB BLOOD ORDERABLES Final Result [facility] [place] [address] * (ABNORMAL) Basic metabolic panel (05/21/2024 8:54 PM DIVISION TRAFFIC SUPERINTENDENT) Sodium 143 135 - 145 mmol/L Potassium, pl 3.5 3.3 - 4.9 mmol/L [facility] Chloride 101 97 - 110 mmol/L [facility] CO2 35(H) 22 - 32 mmol/L [facility] Anion gap 7 2 - 15 mmol/L [facility] BUN 19 6 - 25 mg/dL [facility] Creatinine 0.85 0.60 - 1.10 mg/dL [facility] Glucose 125 70 - 199 mg/dL [facility] Comment: Interpretive Data Fasting glucose >/= 126 [...] 2022. Calcium 8.7 8.5 - 10.3 mg/dL [facility] Blood 05/21/2024 8:54 PM DIVISION TRAFFIC SUPERINTENDENT 05/21/2024 9:16 PM DIVISION TRAFFIC SUPERINTENDENT us Brissa Ko MD LAB BLOOD ORDERABLES Final Result [facility] [place] [address] * XR Chest 1 View (05/21/2024 8:36 PM DIVISION TRAFFIC SUPERINTENDENT) Anatomical Region Laterality Modality Body, Chest N/A Computed Radiogr aphy 05/22/2024 9:45 AM DIVISION TRAFFIC SUPERINTENDENT Impressions 05/22/2024 10:11 AM DIVISION TRAFFIC SUPERINTENDENT Comparison is made to radiograph dated 05/20/2024. [...] David Hogan M.D. Narrative 05/22/2024 10:11 AM DIVISION TRAFFIC SUPERINTENDENT EXAMINATION: 1 view chest radiograph Procedure Note [...] Electronically signed by: Juan David Hogan M.D. us Yesenia HINOJOSA IMG XR PROCEDURES F inal Result * Critical Care (05/21/2024 8:00 PM DIVISION TRAFFIC SUPERINTENDENT) Narrative Renay Weber MD - 05/21/2024 8:00 PM DIVISION TRAFFIC SUPERINTENDENT Renay Weber MD 05/28/2024 11:57 PM Critical [...] plan with the ICU team and other medical/personnel consultant staff, making frequent assessments and decisions [...] in the medical record us Lynsey Otoole NP IN CLINIC/BEDSI DE ORDERABLES Final Result * POCT glucose (05/21/2024 7:43 PM DIVISION TRAFFIC SUPERINTENDENT) Glucose, POC 150 70 - 199 mg/dL Blood 05/21/2024 7:43 PM DIVISION TRAFFIC SUPERINTENDENT 05/21/2024 7:43 PM DIVISION TRAFFIC SUPERINTENDENT us Brissa Ko MD LAB POCT ORDERABLES - DEVIC E Final Result [facility] [place] [address] * (ABNORMAL) Blood gas, arterial (05/21/2024 3:11 PM DIVISION TRAFFIC SUPERINTENDENT) pH, Art 7.44 7.35 - 7.45 PCO2, Arterial 50(H) 35 - 45 mmHg [facility] PO2, Arterial 157(H) 83 - 108 mmHg [facility] HCO3 Art (Calculated) 35(H) 20 - 30 mmol/L [facility] BE, art 8 mmol/L [facility] Comment: Interpretive Data No Reference Range Established Current Interpretive Data was last revised on 2017 O2 Sat Art (Measured) 100(H) 90 - 95 % [facility] Blood 05/21/2024 3:11 PM DIVISION TRAFFIC SUPERINTENDENT 05/21/2024 3:16 PM DIVISION TRAFFIC SUPERINTENDENT us Sebastian HINOJOSA LAB BLOOD ORDERABLES Fi nal Result Performing Organization Address [facility]/ZIP Co de Phone Number [facility] [place] [address] * POCT glucose (05/21/2024 3:10 PM DIVISION TRAFFIC SUPERINTENDENT) Glucose, POC 135 70 - 199 mg/dL Blood 05/21/2024 3:10 PM DIVISION TRAFFIC SUPERINTENDENT 05/21/2024 3:10 PM DIVISION TRAFFIC SUPERINTENDENT Brissa Ko MD LAB POCT ORDERABLES - DEVIC E Final Result [facility] [place] [address] * POCT glucose (05/21/2024 11:14 AM DIVISION TRAFFIC SUPERINTENDENT) Glucose, POC 122 70 - 199 mg/dL Blood 05/21/2024 11:1 4 AM DIVISION TRAFFIC SUPERINTENDENT 05/21/2024 11:14 AM DIVISION TRAFFIC SUPERINTENDENT Brissa Ko MD LAB POCT ORDERABLES - DEVIC E Final Result Performing Organization Address [facility] de Phone Number [facility] [place] [address] * (ABNORMAL) Thyroid Function [place] (05/21/2024 9:07 AM DIVISION TRAFFIC SUPERINTENDENT) TSH 5.20(H) 0.30 - 4.20 mcIUnit/mL Blood 05/21/2024 9:07 AM DIVISION TRAFFIC SUPERINTENDENT 05/21/2024 9:28 AM DIVISION TRAFFIC SUPERINTENDENT Sebastian HINOJOSA LAB BLOOD ORDERABLES Fi nal Result Performing Organization Address [facility] de Phone Number [facility] [place] [address] * Triglycerides (05/21/2024 9:07 AM DIVISION TRAFFIC SUPERINTENDENT) Triglycerides 139 <=149 mg/dL Comment: Interpretive Data [...] revised on 2017. Blood 05/21/2024 9:07 AM DIVISION TRAFFIC SUPERINTENDENT 05/21/2024 9:28 AM DIVISION TRAFFIC SUPERINTENDENT Narrative [facility] - 05/21/2024 9:56 AM DIVISION TRAFFIC SUPERINTENDENT While on propofol infusion. Preston HINOJOSA LAB BLOOD ORDER TEDDY Final Result Performing Organization Address [facility] Co de Phone Number [facility] [place] [address] * T4, free (05/21/2024 9:07 AM DIVISION TRAFFIC SUPERINTENDENT) Free T4 1.35 0.90 - 1.70 ng/dL Blood 05/21/2024 9:07 AM DIVISION TRAFFIC SUPERINTENDENT 05/21/2024 9:28 AM DIVISION TRAFFIC SUPERINTENDENT Narrative [facility] - 05/21/2024 10:34 AM DIVISION TRAFFIC SUPERINTENDENT This test was reflexed from a TSH result. Sebastian HINOJOSA LAB BLOOD ORDERABLES Ed ited Result - Final Performing Organization Address City/[facility]/[place] [address] * Ammonia (05/21/2024 9:07 AM DIVISION TRAFFIC SUPERINTENDENT) Ammonia 27 <=50 mcmol/L Blood 05/21/2024 9:07 AM DIVISION TRAFFIC SUPERINTENDENT 05/21/2024 9:29 AM DIVISION TRAFFIC SUPERINTENDENT Sebastian HINOJOSA LAB BLOOD ORDERABLES Fi nal Result Performing Organization Address [facility]/ZIP Co de Phone Number [facility] [place] [address] * POCT glucose (05/21/2024 7:24 AM DIVISION TRAFFIC SUPERINTENDENT) Glucose, POC 138 70 - 199 mg/dL Blood 05/21/2024 7:24 AM DIVISION TRAFFIC SUPERINTENDENT 05/21/2024 7:24 AM DIVISION TRAFFIC SUPERINTENDENT Brissa Ko MD LAB POCT ORDERABLES - DEVIC E Final Result Performing Organization Address City/[facility]/ZIP Co de Phone Number [facility] [place] [address] * Critical Care (05/21/2024 7:02 AM DIVISION TRAFFIC SUPERINTENDENT) Narrative Novoselova, Earnestine, MD - 05/21/2024 7:02 AM DIVISION TRAFFIC SUPERINTENDENT Earnestine Kelly MD 05/22/2024 3:03 PM Critical [...] plan with the ICU team and other medical/personnel consultant staff, making frequent assessments and decisions [...] Result * POCT glucose (05/21/2024 3:47 AM DIVISION TRAFFIC SUPERINTENDENT) Glucose, POC 161 70 - 199 mg/dL Blood 05/21/2024 3:47 AM DIVISION TRAFFIC SUPERINTENDENT 05/21/2024 3:47 AM DIVISION TRAFFIC SUPERINTENDENT us Brissa Ko MD LAB POCT ORDERABLES - DEVIC E Final Result [facility] [place] [address] * XR Chest 1 View (05/21/2024 12:12 AM DIVISION TRAFFIC SUPERINTENDENT) Anatomical Region Laterality Modality Body, Chest N/A Computed Radiogr aphy 05/21/2024 8:02 AM DIVISION TRAFFIC SUPERINTENDENT Impressions 05/21/2024 8:02 AM DIVISION TRAFFIC SUPERINTENDENT Comparison is made to radiograph of 05/20/2024 [...] Nestor Seth M.D. Narrative 05/21/2024 8:02 AM DIVISION TRAFFIC SUPERINTENDENT EXAMINATION: 1 view chest radiograph Procedure Note [...] Result * POCT glucose (05/20/2024 11:29 PM DIVISION TRAFFIC SUPERINTENDENT) Glucose, POC 140 70 - 199 mg/dL Blood 05/20/2024 11:2 9 PM DIVISION TRAFFIC SUPERINTENDENT 05/20/2024 11:29 PM DIVISION TRAFFIC SUPERINTENDENT Brissa Ko MD LAB POCT ORDERABLES - DEVIC E Final Result [facility] [place] [address] * XR Abdomen 1 View AP (05/20/2024 8:05 PM DIVISION TRAFFIC SUPERINTENDENT) Anatomical Region Laterality Modality Body, Abdomen N/A Computed Radiogr aphy 05/21/2024 8:36 AM DIVISION TRAFFIC SUPERINTENDENT Impressions 05/21/2024 8:36 AM DIVISION TRAFFIC SUPERINTENDENT An enteric tube tip terminates in the distal gastric body, with the stylette in place. Relative paucity of bowel gas in the imaged upper abdomen. Dictated by: Kvng Pan MD The radiology attending physician has personally reviewed this study, and had reviewed and/or edited this written report and agrees with it. Electronically signed by: Renetta Farr M.D. Narrative 05/21/2024 8:36 AM DIVISION TRAFFIC SUPERINTENDENT EXAMINATION: Abdomen, one view. HISTORY: Check tube [...] inal Result * eGFR (05/20/2024 7:44 PM DIVISION TRAFFIC SUPERINTENDENT) eGFR 75 >=60 mL/min/1. 73 m2 Comment: [...] last reviewed 2021. Blood 05/20/2024 7:44 PM DIVISION TRAFFIC SUPERINTENDENT 05/20/2024 8:03 PM DIVISION TRAFFIC SUPERINTENDENT us Brissa Ko MD LAB BLOOD ORDERABLES Final Result [facility] [place] [address] * (ABNORMAL) CBC without differential (05/20/2024 7:44 PM DIVISION TRAFFIC SUPERINTENDENT) WBC 7.1 3.8 - 9.9 K/cumm Hgb 9.9(L) 11.9 - 15.5 g/dL [facility] Hct 31.5(L) 35.6 - 45.5 % [facility] Plt 157 150 - 400 K/cumm [facility] MPV 10.6 9.1 - 12.3 fL [facility] RBC 3.40(L) 3.90 - 5.20 M/cumm [facility] MCV 92.6 81.3 - 96.4 fL [facility] MCH 29.1 27.1 - 33.3 pg [facility] MCHC 31.4(L) 32.3 - 35.7 g/dL [facility] RDW CV 14.7 11.1 - 14.9 % [facility] RDW SD 50.2(H) 35.7 - 48.1 fL [facility] NRBC abs 0.00 0.00 - 0.01 K/cumm [facility] Blood 05/20/2024 7:44 PM DIVISION TRAFFIC SUPERINTENDENT 05/20/2024 7:56 PM DIVISION TRAFFIC SUPERINTENDENT Brissa Ko MD LAB BLOOD ORDERABLES Final Result [facility] [place] [address] * Phosphorus (05/20/2024 7:44 PM DIVISION TRAFFIC SUPERINTENDENT) [facility] Phosphorus, pl 3.9 2.3 - 4.5 mg/dL Blood 05/20/2024 7:44 PM DIVISION TRAFFIC SUPERINTENDENT 05/20/2024 7:56 PM DIVISION TRAFFIC SUPERINTENDENT Brissa Ko MD LAB BLOOD ORDERABLES Final Result Performing Organization Address [facility] Co de Phone Number [facility] [place] [address] * Magnesium (05/20/2024 7:44 PM DIVISION TRAFFIC SUPERINTENDENT) [facility] Magnesium 2.3 1.4 - 2.5 mg/dL Blood 05/20/2024 7:44 PM DIVISION TRAFFIC SUPERINTENDENT 05/20/2024 7:56 PM DIVISION TRAFFIC SUPERINTENDENT Brissa Ko MD LAB BLOOD ORDERABLES Final Result Performing Organization Address City/[facility] Co de Phone Number [facility] [place] [address] * (ABNORMAL) Basic metabolic panel (05/20/2024 7:44 PM DIVISION TRAFFIC SUPERINTENDENT) [facility] Sodium 142 135 - 145 mmol/L Potassium, pl 4.0 3.3 - 4.9 mmol/L [facility] Chloride 98 97 - 110 mmol/L [facility] CO2 36(H) 22 - 32 mmol/L [facility] Anion gap 8 2 - 15 mmol/L [facility] BUN 18 6 - 25 mg/dL [facility] Creatinine 0.81 0.60 - 1.10 mg/dL [facility] Glucose 139 70 - 199 mg/dL [facility] Comment: Interpretive Data Fasting glucose >/= 126 [...] 2022. Calcium 8.7 8.5 - 10.3 mg/dL [facility] Blood 05/20/2024 7:44 PM DIVISION TRAFFIC SUPERINTENDENT 05/20/2024 7:56 PM DIVISION TRAFFIC SUPERINTENDENT Brissa Ko MD LAB BLOOD ORDERABLES Final Result Performing Organization Address City/[facility]/ZIP Co de Phone Number [facility] [place] [address] * POCT glucose (05/20/2024 7:36 PM DIVISION TRAFFIC SUPERINTENDENT) [facility] Glucose, POC 149 70 - 199 mg/dL Blood 05/20/2024 7:36 PM DIVISION TRAFFIC SUPERINTENDENT 05/20/2024 7:36 PM DIVISION TRAFFIC SUPERINTENDENT us Brissa Ko MD LAB POCT ORDERABLES - DEVIC E Final Result Performing Organization Address City/[facility]/ZIP Co de Phone Number [facility] [place] [address] * Critical Care (05/20/2024 6:22 PM DIVISION TRAFFIC SUPERINTENDENT) Narrative Renay Weber MD - 05/20/2024 6:22 PM DIVISION TRAFFIC SUPERINTENDENT Renay Weber MD 05/28/2024 11:45 PM Critical [...] plan with the ICU team and other medical/personnel consultant staff, making frequent assessments and decisions [...] Result * POCT glucose (05/20/2024 3:33 PM DIVISION TRAFFIC SUPERINTENDENT) Glucose, POC 156 70 - 199 mg/dL Blood 05/20/2024 3:33 PM DIVISION TRAFFIC SUPERINTENDENT 05/20/2024 3:33 PM DIVISION TRAFFIC SUPERINTENDENT Brissa Ko MD LAB POCT ORDERABLES - DEVIC E Final Result Performing Organization Address [facility] Co de Phone Number [facility] [place] [address] * POCT glucose (05/20/2024 11:36 AM DIVISION TRAFFIC SUPERINTENDENT) Glucose, POC 166 70 - 199 mg/dL Blood 05/20/2024 11:3 6 AM DIVISION TRAFFIC SUPERINTENDENT 05/20/2024 11:36 AM DIVISION TRAFFIC SUPERINTENDENT Brissa Ko MD LAB POCT ORDERABLES - DEVIC E Final Result Performing Organization Address [facility] Co de Phone Number [facility] Department [place] [address] * POCT glucose (05/20/2024 7:28 AM DIVISION TRAFFIC SUPERINTENDENT) Glucose, POC 167 70 - 199 mg/dL Blood 05/20/2024 7:28 AM DIVISION TRAFFIC SUPERINTENDENT 05/20/2024 7:28 AM DIVISION TRAFFIC SUPERINTENDENT us Brissa Ko MD LAB POCT ORDERABLES - DEVIC E Final Result Performing Organization Address City/State/[facility] Co wv Phone Number [facility] [place] [address] * Critical Care (05/20/2024 7:27 AM DIVISION TRAFFIC SUPERINTENDENT) Narrative Earnestine Kelly MD - 05/20/2024 7:27 AM DIVISION TRAFFIC SUPERINTENDENT Earnestine Kelly MD 05/22/2024 3:02 PM Critical [...] plan with the ICU team and other medical/personnel consultant staff, making frequent assessments and decisions [...] XR Chest 1 View (05/20/2024 6:25 AM DIVISION TRAFFIC SUPERINTENDENT) Anatomical Region Laterality Modality Body, Chest N/A Computed Radiogr aphy 05/20/2024 9:29 AM DIVISION TRAFFIC SUPERINTENDENT Impressions 05/20/2024 9:29 AM DIVISION TRAFFIC SUPERINTENDENT The current study is compared with the prior radiograph dated 05/19/2024. The endotracheal tube tip is 1.5 cm above the janis. Stable small left pleural effusion with underlying left lower lobe collapse. Small right pleural effusion with mild atelectasis is unchanged. Stable mild pulmonary edema. No pneumothorax. Stable cardiomegaly. Electronically signed by: Matt Willis MD, PHD Narrative 05/20/2024 9:29 AM DIVISION TRAFFIC SUPERINTENDENT EXAMINATION: 1 view chest radiograph Procedure Note [...] Result * POCT glucose (05/20/2024 3:47 AM DIVISION TRAFFIC SUPERINTENDENT) Glucose, POC 157 70 - 199 mg/dL Blood 05/20/2024 3:47 AM DIVISION TRAFFIC SUPERINTENDENT 05/20/2024 3:47 AM DIVISION TRAFFIC SUPERINTENDENT us Brissa Ko MD LAB POCT ORDERABLES - DEVIC E Final Result [facility] Department of Laboratories [place], [place] [id number] * (ABNORMAL) Blood gas, arterial (05/20/2024 3:01 AM DIVISION TRAFFIC SUPERINTENDENT) pH, Art 7.48(H) 7.35 - 7.45 PCO2, Arterial 48(H) 35 - 45 mmHg [facility] PO2, Arterial 100 83 - 108 mmHg [facility] HCO3 Art (Calculated) 37(H) 20 - 30 mmol/L [facility] BE, art 11 mmol/L [facility] Comment: Interpretive Data No Reference Range Established Current Interpretive Data was last revised on 2017 O2 Sat Art (Measured) 98(H) 90 - 95 % [facility] Blood 05/20/2024 3:01 AM DIVISION TRAFFIC SUPERINTENDENT 05/20/2024 3:12 AM DIVISION TRAFFIC SUPERINTENDENT us Yesenia HINOJOSA LAB BLOOD ORDERABLE S Final Result Performing Organization Address City/[facility]/ZIP Co de Phone Number [facility] Department [place] [address] * POCT glucose (05/19/2024 11:34 PM DIVISION TRAFFIC SUPERINTENDENT) Glucose, POC 152 70 - 199 mg/dL Blood 05/19/2024 11:3 4 PM DIVISION TRAFFIC SUPERINTENDENT 05/19/2024 11:34 PM DIVISION TRAFFIC SUPERINTENDENT us Brissa Ko MD LAB POCT ORDERABLES - DEVIC E Final Result Performing Organization Address City/[facility]/ZIP Co de Phone Number [facility] Department [place] [address] * eGFR (05/19/2024 9:35 PM DIVISION TRAFFIC SUPERINTENDENT) eGFR 79 >=60 mL/min/1. 73 m2 Comment: [...] last reviewed 2021. Blood 05/19/2024 9:35 PM DIVISION TRAFFIC SUPERINTENDENT 05/19/2024 9:49 PM DIVISION TRAFFIC SUPERINTENDENT us Brissa Ko MD LAB BLOOD ORDERABLES Final Result [facility] Department [place] [address] * (ABNORMAL) CBC without differential (05/19/2024 9:35 PM DIVISION TRAFFIC SUPERINTENDENT) WBC 5.7 3.8 - 9.9 K/cumm Hgb 9.4(L) 11.9 - 15.5 g/dL [facility] Hct 30.1(L) 35.6 - 45.5 % [facility] Plt 146(L) 150 - 400 K/cumm [facility] MPV 10.2 9.1 - 12.3 fL [facility] RBC 3.21(L) 3.90 - 5.20 M/cumm [facility] MCV 93.8 81.3 - 96.4 fL [facility] Comment:MCV delta due to tasha gical procedure. MCH 29.3 27.1 - 33.3 pg [facility] MCHC 31.2(L) 32.3 - 35.7 g/dL [facility] RDW CV 14.5 11.1 - 14.9 % [facility] RDW SD 49.4(H) 35.7 - 48.1 fL [facility] NRBC abs 0.00 0.00 - 0.01 K/cumm [facility] Blood 05/19/2024 9:35 PM DIVISION TRAFFIC SUPERINTENDENT 05/19/2024 9:50 PM DIVISION TRAFFIC SUPERINTENDENT Brissa Ko MD LAB BLOOD ORDERABLES Final Result Performing Organization Address City/[facility]/ZIP Co de Phone Number [facility] [place] [address] * Phosphorus (05/19/2024 9:35 PM DIVISION TRAFFIC SUPERINTENDENT) Pathologist [facility] Phosphorus, pl 3.4 2.3 - 4.5 mg/dL Blood 05/19/2024 9:35 PM DIVISION TRAFFIC SUPERINTENDENT 05/19/2024 9:47 PM DIVISION TRAFFIC SUPERINTENDENT us Brissa Ko MD LAB BLOOD ORDERABLES Final Result Performing Organization Address [facility] Co de Phone Number [facility] [place] [address] * Magnesium (05/19/2024 9:35 PM DIVISION TRAFFIC SUPERINTENDENT) [facility] Magnesium 2.2 1.4 - 2.5 mg/dL Blood 05/19/2024 9:35 PM DIVISION TRAFFIC SUPERINTENDENT 05/19/2024 9:47 PM DIVISION TRAFFIC SUPERINTENDENT us Brissa Ko MD LAB BLOOD ORDERABLES Final Result Performing Organization Address [facility] Co de Phone Number [facility] [place] [address] * (ABNORMAL) Blood gas, arterial (05/19/2024 9:35 PM DIVISION TRAFFIC SUPERINTENDENT) [facility] pH, Art 7.48(H) 7.35 - 7.45 PCO2, Arterial 50(H) 35 - 45 mmHg [facility] PO2, Arterial 64(L) 83 - 108 mmHg [facility] HCO3 Art (Calculated) 38(H) 20 - 30 mmol/L [facility] BE, art 12 mmol/L [facility] Comment: Interpretive Data No Reference Range Established Current Interpretive Data was last revised on 2017 O2 Sat Art (Measured) 94 90 - 95 % [facility] Blood 05/19/2024 9:35 PM DIVISION TRAFFIC SUPERINTENDENT 05/19/2024 9:45 PM DIVISION TRAFFIC SUPERINTENDENT us Preston HINOJOSA LAB BLOOD ORDER TEDDY Final Result Performing Organization Address City/[facility]/ZIP Co de Phone Number [facility] Department [place] [address] * (ABNORMAL) Basic metabolic panel (05/19/2024 9:35 PM DIVISION TRAFFIC SUPERINTENDENT) [facility] Sodium 144 135 - 145 mmol/L Potassium, pl 4.2 3.3 - 4.9 mmol/L [facility] Chloride 99 97 - 110 mmol/L [facility] CO2 38(H) 22 - 32 mmol/L [facility] Anion gap 7 2 - 15 mmol/L [facility] BUN 15 6 - 25 mg/dL [facility] Creatinine 0.78 0.60 - 1.10 mg/dL [facility] Glucose 143 70 - 199 mg/dL [facility] Comment: Interpretive Data Fasting glucose >/= 126 [...] 2022. Calcium 8.9 8.5 - 10.3 mg/dL [facility] Blood 05/19/2024 9:35 PM DIVISION TRAFFIC SUPERINTENDENT 05/19/2024 9:47 PM DIVISION TRAFFIC SUPERINTENDENT us Brissa Ko MD LAB BLOOD ORDERABLES Final Result Performing Organization Address [facility]/ZIP Co de Phone Number [facility] Department [place] [address] * Critical Care (05/19/2024 8:59 PM DIVISION TRAFFIC SUPERINTENDENT) Narrative Renay Weber MD - 05/19/2024 8:59 PM DIVISION TRAFFIC SUPERINTENDENT Renay Weber MD 05/28/2024 11:45 PM Critical [...] plan with the ICU team and other medical/personnel consultant staff, making frequent assessments and decisions [...] Result * POCT glucose (05/19/2024 7:36 PM DIVISION TRAFFIC SUPERINTENDENT) Glucose, POC 153 70 - 199 mg/dL Blood 05/19/2024 7:36 PM DIVISION TRAFFIC SUPERINTENDENT 05/19/2024 7:36 PM DIVISION TRAFFIC SUPERINTENDENT us Brissa Ko MD LAB POCT ORDERABLES - DEVIC E Final Result [facility] [place] [address] * POCT glucose (05/19/2024 3:43 PM DIVISION TRAFFIC SUPERINTENDENT) Glucose, POC 140 70 - 199 mg/dL Blood 05/19/2024 3:43 PM DIVISION TRAFFIC SUPERINTENDENT 05/19/2024 3:43 PM DIVISION TRAFFIC SUPERINTENDENT Brissa Ko MD LAB POCT ORDERABLES - DEVIC E Final Result [facility] Department [place] [address] * XR Chest 1 View (05/19/2024 2:08 PM DIVISION TRAFFIC SUPERINTENDENT) Anatomical Region Laterality Modality Body, Chest N/A Computed Radiogr aphy 05/19/2024 2:31 PM DIVISION TRAFFIC SUPERINTENDENT Impressions 05/19/2024 3:25 PM DIVISION TRAFFIC SUPERINTENDENT Comparison is made to radiograph dated 05/19/2024. [...] Rajiv Redman M.D. Narrative 05/19/2024 3:25 PM DIVISION TRAFFIC SUPERINTENDENT EXAMINATION: 1 view chest radiograph Procedure Note [...] Result * POCT glucose (05/19/2024 12:49 PM DIVISION TRAFFIC SUPERINTENDENT) Glucose, POC 140 70 - 199 mg/dL Blood 05/19/2024 12:4 9 PM DIVISION TRAFFIC SUPERINTENDENT 05/19/2024 12:49 PM DIVISION TRAFFIC SUPERINTENDENT us Brissa Ko MD LAB POCT ORDERABLES - DEVIC E Final Result [facility] [place] [address] * eGFR (05/19/2024 12:45 PM DIVISION TRAFFIC SUPERINTENDENT) eGFR 85 >=60 mL/min/1. 73 m2 Comment: [...] reviewed 2021. Blood 05/19/2024 12:4 5 PM DIVISION TRAFFIC SUPERINTENDENT 05/19/2024 12:54 PM DIVISION TRAFFIC SUPERINTENDENT us Preston HINOJOSA LAB BLOOD ORDER TEDDY Final Result [facility] Department [place] [address] * (ABNORMAL) CBC without differential (05/19/2024 12:45 PM DIVISION TRAFFIC SUPERINTENDENT) Pathologist [facility] WBC 7.1 3.8 - 9.9 K/cumm Hgb 8.9(L) 11.9 - 15.5 g/dL [facility] Hct 29.2(L) 35.6 - 45.5 % [facility] Plt 136(L) 150 - 400 K/cumm [facility] MPV 10.3 9.1 - 12.3 fL [facility] RBC 2.94(L) 3.90 - 5.20 M/cumm [facility] MCV 99.3(H) 81.3 - 96.4 fL [facility] MCH 30.3 27.1 - 33.3 pg [facility] MCHC 30.5(L) 32.3 - 35.7 g/dL [facility] RDW CV 14.5 11.1 - 14.9 % [facility] RDW SD 51.8(H) 35.7 - 48.1 fL [facility] NRBC abs 0.00 0.00 - 0.01 K/cumm [facility] Blood 05/19/2024 12:4 5 PM DIVISION TRAFFIC SUPERINTENDENT 05/19/2024 12:54 PM DIVISION TRAFFIC SUPERINTENDENT Preston HINOJOSA LAB BLOOD ORDER TEDDY Final Result [facility] Department [place] [address] * Phosphorus (05/19/2024 12:45 PM DIVISION TRAFFIC SUPERINTENDENT) Pathologist [facility] Phosphorus, pl 2.4 2.3 - 4.5 mg/dL Blood 05/19/2024 12:4 5 PM DIVISION TRAFFIC SUPERINTENDENT 05/19/2024 12:54 PM DIVISION TRAFFIC SUPERINTENDENT Preston HIONJOSA LAB BLOOD ORDER TEDDY Final Result [facility] Department [place] [address] * Magnesium (05/19/2024 12:45 PM DIVISION TRAFFIC SUPERINTENDENT) [facility] Magnesium 2.2 1.4 - 2.5 mg/dL Blood 05/19/2024 12:4 5 PM DIVISION TRAFFIC SUPERINTENDENT 05/19/2024 12:54 PM DIVISION TRAFFIC SUPERINTENDENT Preston HINOJOSA LAB BLOOD ORDER TEDDY Final Result Performing Organization Address [facility] Co de Phone Number [facility] Department [place] [address] * (ABNORMAL) Blood gas, arterial (05/19/2024 12:45 PM DIVISION TRAFFIC SUPERINTENDENT) [facility] pH, Art 7.43 7.35 - 7.45 PCO2, Arterial 52(H) 35 - 45 mmHg [facility] PO2, Arterial 147(H) 83 - 108 mmHg [facility] HCO3 Art (Calculated) 36(H) 20 - 30 mmol/L [facility] BE, art 9 mmol/L [facility] Comment: Interpretive Data No Reference Range Established Current Interpretive Data was last revised on 2017 O2 Sat Art (Measured) 100(H) 90 - 95 % [facility] Blood 05/19/2024 12:4 5 PM DIVISION TRAFFIC SUPERINTENDENT 05/19/2024 12:50 PM DIVISION TRAFFIC SUPERINTENDENT Preston HINOJOSA LAB BLOOD ORDER TEDDY Final Result Performing Organization Address City/[facility] Co de Phone Number [facility] Department [place] [address] * (ABNORMAL) Basic metabolic panel (05/19/2024 12:45 PM DIVISION TRAFFIC SUPERINTENDENT) [facility] Sodium 142 135 - 145 mmol/L Potassium, pl 4.2 3.3 - 4.9 mmol/L [facility] Chloride 99 97 - 110 mmol/L [facility] CO2 35(H) 22 - 32 mmol/L [facility] Anion gap 8 2 - 15 mmol/L [facility] BUN 14 6 - 25 mg/dL [facility] Creatinine 0.73 0.60 - 1.10 mg/dL [facility] Glucose 134 70 - 199 mg/dL [facility] Comment: Interpretive Data Fasting glucose >/= 126 [...] 2022. Calcium 8.6 8.5 - 10.3 mg/dL [facility] Blood 05/19/2024 12:4 5 PM DIVISION TRAFFIC SUPERINTENDENT 05/19/2024 12:54 PM DIVISION TRAFFIC SUPERINTENDENT us Preston HINOJOSA LAB BLOOD ORDER TEDDY Final Result Performing Organization Address City/[facility]/ZIP Co de Phone Number [facility] [place] [address] * [place] Fluoroscopy < 1 Hour (05/19/2024 11:22 AM DIVISION TRAFFIC SUPERINTENDENT) Narrative [facility] - 05/19/2024 11:23 AM DIVISION TRAFFIC SUPERINTENDENT The images from this study are not interpreted by Radiology. Please refer to the physician's procedure / OR operative note. us Annemarie Lea MD IMG FLUOROSCOPY PROCEDURES Final Result [facility] * (ABNORMAL) POC Blood Gas and Chemistries, Arterial - (05/19/2024 10:38 AM DIVISION TRAFFIC SUPERINTENDENT) pH, Art POC 7.50(H) 7.35 - 7.45 pCO2, Art POC 51(H) 35 - 45 mmHg [facility] pO2, Art POC 68(L) 83 - 108 mmHg [facility] Na, POC 140 135 - 145 mmol/L [facility] K POC 4.1 3.3 - 4.9 mmol/L [facility] Comment: Interpretive Data Not all point of care methods assess for hemolysis. Confirm with instrument and retest K+ if not consistent with clinical signs and symptoms. Current Interpretive Data was last revised on 2023. Cl, POC 99 97 - 110 mmol/L [facility] Ionized Ca, POC 4.69 4.50 - 5.10 mg/dL [facility] Glucose, POC 141 70 - 199 mg/dL [facility] Lactate, POC 1.0 0.7 - 2.0 mmol/L [facility] SO2 (chiquita) arterial 98(H) 90 - 95 % [facility] Base excess, POC 14.9 mmol/L [facility] Hct, POC 28.0(L) 36.3 - 45.3 % [facility] Total Hb, POC 9.2(L) 11.9 - 15.5 g/dL [facility] Blood 05/19/2024 10:3 8 AM DIVISION TRAFFIC SUPERINTENDENT 05/19/2024 10:38 AM DIVISION TRAFFIC SUPERINTENDENT Brissa Ko MD LAB POCT ORDERABLES - DEVIC E Final Result [facility] [place] [address] * OR AN PROCEDURE PLACEHOLDER (05/19/2024 9:51 AM DIVISION TRAFFIC SUPERINTENDENT) Narrative Flako Parekh CRNA - 05/19/2024 9:51 AM DIVISION TRAFFIC SUPERINTENDENT Flako Parekh CRNA 05/19/2024 9:52 AM Arterial Line Patient location: OR End time: 05/19/2024 8:30 AM Indication: continuous blood pressure monitoring and blood sampling needed Staff: Supervising provider: Mag Villatoro MD Placed by: VB NET PROGRAMMER: Flako Parekh CRNA Procedure prep: Prep solution: chlorhexadine/alcohol Prep: provider hat/mask, sterile gloves and sterile drape Skin infiltrated with lidocaine 1%: yes Arterial line: Catheter size: 3 Chinese Catheter length: 8 cm Catheter type: wire-guided [...] OR AN PROCEDURE PLACEHOLDER (05/19/2024 9:46 AM DIVISION TRAFFIC SUPERINTENDENT) Narrative Falko Parekh CRNA - 05/19/2024 9:46 AM DIVISION TRAFFIC SUPERINTENDENT Flako Parekh CRNA 05/19/2024 9:51 AM Airway Patient location: OR Urgency: elective Date/time: 05/19/2024 8:13 AM Indications for airway management: anesthesia Difficult airway: no Staff: Supervising provider: Mag Villatoro MD Placed by: VB NET PROGRAMMER: Flako Parekh CRNA Emergent airway documentation: Risks [...] and Chemistries, Arterial - (05/19/2024 8:35 AM DIVISION TRAFFIC SUPERINTENDENT) pH, Art POC 7.41 7.35 - 7.45 pCO2, Art POC 65(H) 35 - 45 mmHg [facility] pO2, Art POC 128(H) 83 - 108 mmHg [facility] Na, POC 141 135 - 145 mmol/L [facility] K POC 4.4 3.3 - 4.9 mmol/L [facility] Comment: Interpretive Data Not all point of care methods assess for hemolysis. Confirm with instrument and retest K+ if not consistent with clinical signs and symptoms. Current Interpretive Data was last revised on 2023. Cl, POC 101 97 - 110 mmol/L [facility] Ionized Ca, POC 4.78 4.50 - 5.10 mg/dL [facility] Glucose, POC 97 70 - 199 mg/dL [facility] Lactate, POC 0.8 0.7 - 2.0 mmol/L [facility] SO2 (chiquita) arterial 100(H) 90 - 95 % [facility] Base excess, POC 14.4 mmol/L [facility] HCO3, Art POC 41(H) 20 - 30 mmol/L [facility] Hct, POC 29.0(L) 36.3 - 45.3 % [facility] Total Hb, POC 9.6(L) 11.9 - 15.5 g/dL [facility] Blood 05/19/2024 8:35 AM DIVISION TRAFFIC SUPERINTENDENT 05/19/2024 8:35 AM DIVISION TRAFFIC SUPERINTENDENT Brissa Ko MD LAB POCT ORDERABLES - DEVIC E Final Result [facility] [place] [address] * POCT glucose (05/19/2024 7:36 AM DIVISION TRAFFIC SUPERINTENDENT) Glucose, POC 101 70 - 199 mg/dL Blood 05/19/2024 7:36 AM DIVISION TRAFFIC SUPERINTENDENT 05/19/2024 7:36 AM DIVISION TRAFFIC SUPERINTENDENT us Brissa Ko MD LAB POCT ORDERABLES - DEVIC E Final Result [facility] [place] [address] * Critical Care (05/19/2024 7:06 AM DIVISION TRAFFIC SUPERINTENDENT) Narrative Earnestine Kelly MD - 05/19/2024 7:06 AM DIVISION TRAFFIC SUPERINTENDENT Earnestine Kelly MD 05/22/2024 3:02 PM Critical [...] plan with the ICU team and other medical/personnel consultant staff, making frequent assessments and decisions [...] Critical Result Callback Chemistry (05/19/2024 5:18 AM DIVISION TRAFFIC SUPERINTENDENT) Date Notified [id number] Time Notified 539 [facility] TestName pCO2 Chao [facility] Called/Read Back Funmilayo [facility] Credentials RN [facility] Called By octavio [facility] Blood 05/19/2024 5:18 AM DIVISION TRAFFIC SUPERINTENDENT 05/19/2024 5:25 AM DIVISION TRAFFIC SUPERINTENDENT Charisse Dnuham NP LAB BLOOD ORDER TEDDY Final Result Performing Organization Address City/[facility] Co de Phone Number [facility] [place] [address] * Type and screen (05/19/2024 5:18 AM DIVISION TRAFFIC SUPERINTENDENT) [place], indirect Negative ABO Rh A Positive [facility] Blood 05/19/2024 5:18 AM DIVISION TRAFFIC SUPERINTENDENT 05/19/2024 5:26 AM DIVISION TRAFFIC SUPERINTENDENT Narrative [facility] - 05/19/2024 6:12 AM DIVISION TRAFFIC SUPERINTENDENT Has the patient had Daratumumab or Isatuximab in the past 6 months?->Unknown us Mag Villatoro MD LAB BLOOD BANK TEST ORDERABLE S Final Result Performing Organization Address City/[facility] Co de Phone Number [facility] [place] [address] * (ABNORMAL) Blood gas, venous (05/19/2024 5:18 AM DIVISION TRAFFIC SUPERINTENDENT) pH, Venous 7.30(L) 7.32 - 7.43 PCO2, Venous 79(C) 40 - 50 mmHg [facility] Comment:Reviewed PO2, Venous 41 mmHg [facility] Comment: Interpretive Data No Reference Range Established Current Interpretive Data was last revised on 2017. HCO3 Venous, Calculated 40(H) 20 - 30 mmol/L [facility] BE, venous 10 mmol/L [facility] Comment: Interpretive Data No Reference Range Established Current Interpretive Data was last revised on 2017. Blood 05/19/2024 5:18 AM DIVISION TRAFFIC SUPERINTENDENT 05/19/2024 5:25 AM DIVISION TRAFFIC SUPERINTENDENT Charisse Dunham NP LAB BLOOD ORDER TEDDY Final Result Performing Organization Address City/[facility] Co de Phone Number [facility] [place] [address] * Critical Result Callback Chemistry (05/19/2024 3:41 AM DIVISION TRAFFIC SUPERINTENDENT) Date Notified [id number] Time Notified 401 [facility] TestName pCO2 Art [facility] Called/Read Back Funmilayo [facility] Credentials RN [facility] Called By MARC [facility] Blood 05/19/2024 3:41 AM DIVISION TRAFFIC SUPERINTENDENT 05/19/2024 3:47 AM DIVISION TRAFFIC SUPERINTENDENT us Charisse Dunham NP LAB BLOOD ORDER TEDDY Final Result Performing Organization Address [facility] de Phone Number [facility] Laboratories [place] [address] * (ABNORMAL) Blood gas, arterial (05/19/2024 3:41 AM DIVISION TRAFFIC SUPERINTENDENT) pH, Art 7.27(L) 7.35 - 7.45 PCO2, Arterial 83(C) 35 - 45 mmHg [facility] Comment:reviewed PO2, Arterial 157(H) 83 - 108 mmHg [facility] HCO3 Art (Calculated) 40(H) 20 - 30 mmol/L [facility] BE, art 9 mmol/L [facility] Comment: Interpretive Data No Reference Range Established Current Interpretive Data was last revised on 2017 O2 Sat Art (Measured) 99(H) 90 - 95 % [facility] Blood 05/19/2024 3:41 AM DIVISION TRAFFIC SUPERINTENDENT 05/19/2024 3:47 AM DIVISION TRAFFIC SUPERINTENDENT Charisse Dunham NP LAB BLOOD ORDER TEDDY Final Result Performing Organization Address City/[facility] Co de Phone Number [facility] [place] [address] * XR Chest 1 View (05/19/2024 3:20 AM DIVISION TRAFFIC SUPERINTENDENT) Anatomical Region Laterality Modality Body, Chest N/A Computed Radiogr aphy 05/19/2024 9:14 AM DIVISION TRAFFIC SUPERINTENDENT Impressions 05/19/2024 9:50 AM DIVISION TRAFFIC SUPERINTENDENT Retrocardiac opacity in keeping with left lower [...] Harish Bangura M.D. Narrative 05/19/2024 9:50 AM DIVISION TRAFFIC SUPERINTENDENT EXAMINATION: XR CHEST 1 VIEW HISTORY: altered [...] signed by: Harish Bangura M.D. Charisse Dunham AUDITING MANAGER IMG XR PROCEDUR ES Final Result * Critical Care (05/19/2024 3:00 AM DIVISION TRAFFIC SUPERINTENDENT) Narrative Renay Weber MD - 05/19/2024 3:00 AM DIVISION TRAFFIC SUPERINTENDENT Renay Weber MD 05/20/2024 2:54 AM Critical [...] plan with the ICU team and other medical/personnel consultant staff, making frequent assessments and decisions [...] Result * POCT glucose (05/19/2024 2:38 AM DIVISION TRAFFIC SUPERINTENDENT) Glucose, POC 122 70 - 199 mg/dL Blood 05/19/2024 2:38 AM DIVISION TRAFFIC SUPERINTENDENT 05/19/2024 2:38 AM DIVISION TRAFFIC SUPERINTENDENT us Brissa Ko MD LAB POCT ORDERABLES - DEVIC E Final Result [facility] [place] [address] * CTA/CTP Rapid Stroke (C) (05/19/2024 2:26 AM DIVISION TRAFFIC SUPERINTENDENT) Anatomical Region Laterality Modality Head and Neck N/A Computed Tomogra phy 05/19/2024 2:49 AM DIVISION TRAFFIC SUPERINTENDENT Impressions 05/19/2024 8:55 AM DIVISION TRAFFIC SUPERINTENDENT 1. No CT evidence of stroke. 2. [...] Dianna Johnson M.D. Narrative 05/19/2024 8:55 AM DIVISION TRAFFIC SUPERINTENDENT EXAMINATION: 1. Computed tomography angiography (CTA) of [...] separate workstation for processing by RAPID software ([place]) to produce automated calculations of the estimated [...] Artery: no occlusion or significant stenosis L CLINICAL DATA ASSOCIATE: no occlusion or significant stenosis R CLINICAL DATA ASSOCIATE: no occlusion or significant stenosis No cerebral [...] separate workstation for processing by RAPID software ([place]) to produce automated calculations of the estimated [...] Artery: no occlusion or significant stenosis L CLINICAL DATA ASSOCIATE: no occlusion or significant stenosis R CLINICAL DATA ASSOCIATE: no occlusion or significant stenosis No cerebral [...] Electronically signed by: Dianna Johnson M.D. us Brissa Ko MD IMG CT PROCEDURES Final Res ult * (ABNORMAL) POCT OM-[id number]-HCT, WB - ISTAT (05/19/2024 1:27 AM DIVISION TRAFFIC SUPERINTENDENT) Na POC 140 135 - 145 mmol/L K POC 4.5 3.3 - 4.9 mmol/L [facility] Comment: Interpretive Data This method is not able to assess for hemolysis, which may falsely increase potassium concentrations. If further testing is needed to evaluate this result, consider in-laboratory plasma potassium. Current Interpretive Data was last revised on 2021. Glucose POC i-STAT 123 70 - 199 mg/dL [facility] Hct, POC 31.0(L) 35.6 - 45.5 % [facility] Blood 05/19/2024 1:27 AM DIVISION TRAFFIC SUPERINTENDENT 05/19/2024 1:27 AM DIVISION TRAFFIC SUPERINTENDENT Brissa Ko MD LAB POCT ORDERABLES - DEVIC E Final Result [facility] [place] [address] * (ABNORMAL) Arterial Blood gas w/Lactate POCT (05/19/2024 1:22 AM DIVISION TRAFFIC SUPERINTENDENT) [facility] Signature Lactate POC i-STAT <0.5(L) 0.7 - 2.0 mmol/L pH POC 7.29(L) 7.35 - 7.45 [facility] pCO2, Art POC 81(C) 35 - 45 mmHg [facility] PO2 POC 88 80 - 105 mmHg [facility] CO2, total POC 41(H) 20 - 30 mmol/L [facility] HCO3, POC 39(H) 21 - 30 mmol/L [facility] POC 12(H) -2 - 3 mmol/L [facility] O2 sat POC 95 95 - 98 % [facility] Blood 05/19/2024 1:22 AM DIVISION TRAFFIC SUPERINTENDENT 05/19/2024 1:22 AM DIVISION TRAFFIC SUPERINTENDENT us Brissa Ko MD LAB BLOOD ORDERABLES Final Result [facility] [place] [address] * POCT glucose (05/19/2024 1:15 AM DIVISION TRAFFIC SUPERINTENDENT) [facility] Signature Glucose, POC 134 70 - 199 mg/dL Blood 05/19/2024 1:15 AM DIVISION TRAFFIC SUPERINTENDENT 05/19/2024 1:15 AM DIVISION TRAFFIC SUPERINTENDENT Brissa Ko MD LAB POCT ORDERABLES - DEVIC E Final Result [facility] [place] [address] * Potassium, whole blood (05/19/2024 12:55 AM DIVISION TRAFFIC SUPERINTENDENT) [facility] Potassium, bld 4.6 3.3 - 4.9 mmol/L Blood 05/19/2024 12:5 5 AM DIVISION TRAFFIC SUPERINTENDENT 05/19/2024 1:10 AM DIVISION TRAFFIC SUPERINTENDENT Brissa Ko MD LAB BLOOD ORDERABLES Final Result Performing Organization Address [facility] Co de Phone Number [facility] Department [place] [address] * eGFR (05/19/2024 12:55 AM DIVISION TRAFFIC SUPERINTENDENT) Pathologist [facility] eGFR 75 >=60 mL/min/1. 73 m2 Comment: [...] reviewed 2021. Blood 05/19/2024 12:5 5 AM DIVISION TRAFFIC SUPERINTENDENT 05/19/2024 1:24 AM DIVISION TRAFFIC SUPERINTENDENT Brissa Ko MD LAB BLOOD ORDERABLES Final Result Performing Organization Address City/[facility]/ZIP Co de Phone Number [facility] Department [place] [address] * (ABNORMAL) CBC without differential (05/19/2024 12:55 AM DIVISION TRAFFIC SUPERINTENDENT) [facility] WBC 5.7 3.8 - 9.9 K/cumm Hgb 9.1(L) 11.9 - 15.5 g/dL [facility] Hct 30.2(L) 35.6 - 45.5 % [facility] Plt 136(L) 150 - 400 K/cumm [facility] MPV 10.9 9.1 - 12.3 fL [facility] RBC 3.06(L) 3.90 - 5.20 M/cumm [facility] MCV 98.7(H) 81.3 - 96.4 fL [facility] MCH 29.7 27.1 - 33.3 pg [facility] MCHC 30.1(L) 32.3 - 35.7 g/dL [facility] RDW CV 14.5 11.1 - 14.9 % [facility] RDW SD 52.2(H) 35.7 - 48.1 fL [facility] NRBC abs 0.00 0.00 - 0.01 K/cumm [facility] Blood 05/19/2024 12:5 5 AM DIVISION TRAFFIC SUPERINTENDENT 05/19/2024 1:25 AM DIVISION TRAFFIC SUPERINTENDENT Brissa Ko MD LAB BLOOD ORDERABLES Final Result [facility] [place] [address] * Phosphorus (05/19/2024 12:55 AM DIVISION TRAFFIC SUPERINTENDENT) Pathologist [facility] Phosphorus, pl 4.1 2.3 - 4.5 mg/dL Blood 05/19/2024 12:5 5 AM DIVISION TRAFFIC SUPERINTENDENT 05/19/2024 1:24 AM DIVISION TRAFFIC SUPERINTENDENT Brissa Ko MD LAB BLOOD ORDERABLES Final Result [facility] [place] [address] * Magnesium (05/19/2024 12:55 AM DIVISION TRAFFIC SUPERINTENDENT) Magnesium 1.8 1.4 - 2.5 mg/dL Blood 05/19/2024 12:5 5 AM DIVISION TRAFFIC SUPERINTENDENT 05/19/2024 1:24 AM DIVISION TRAFFIC SUPERINTENDENT Brissa Ko MD LAB BLOOD ORDERABLES Final Result Performing Organization Address City/[facility]/ZIP Co de Phone Number [facility] Department [place] [address] * (ABNORMAL) Basic metabolic panel (05/19/2024 12:55 AM DIVISION TRAFFIC SUPERINTENDENT) Sodium 145 135 - 145 mmol/L Potassium, pl 4.8 3.3 - 4.9 mmol/L [facility] Chloride 104 97 - 110 mmol/L [facility] CO2 39(H) 22 - 32 mmol/L [facility] Anion gap 2 2 - 15 mmol/L [facility] BUN 17 6 - 25 mg/dL [facility] Creatinine 0.81 0.60 - 1.10 mg/dL [facility] Glucose 126 70 - 199 mg/dL [facility] Comment: Interpretive Data Fasting glucose >/= 126 [...] 2022. Calcium 8.8 8.5 - 10.3 mg/dL [facility] Blood 05/19/2024 12:5 5 AM DIVISION TRAFFIC SUPERINTENDENT 05/19/2024 1:24 AM DIVISION TRAFFIC SUPERINTENDENT Brissa Ko MD LAB BLOOD ORDERABLES Final Result Performing Organization Address [facility] Co de Phone Number [facility] Department [place] [address] * OR AN ELECTIVE ENDOTRACHEAL AIRWAY, OR AN PROCEDURE PLACEHOLDER (05/18/2024 4:41 PM DIVISION TRAFFIC SUPERINTENDENT) Narrative LiesDar salazar CRNA - 05/18/2024 4:41 PM DIVISION TRAFFIC SUPERINTENDENT Dar Long CRNA 05/18/2024 4:45 PM Airway Patient location: OR Urgency: elective Date/time: 05/18/2024 4:05 PM Indications for airway management: anesthesia and airway protection Difficult airway: no Staff: Placed by: Anesthesiologist: Kvng Verma MD VB NET PROGRAMMER: Dar Long CRNA Emergent airway documentation: Risks [...] OR AN PROCEDURE PLACEHOLDER (05/18/2024 3:47 PM DIVISION TRAFFIC SUPERINTENDENT) Narrative Kvng Verma MD - 05/18/2024 3:47 PM DIVISION TRAFFIC SUPERINTENDENT Kvng Verma MD 05/20/2024 9:44 AM Peripheral [...] Final Result * eGFR (05/17/2024 11:56 PM DIVISION TRAFFIC SUPERINTENDENT) eGFR 73 >=60 mL/min/1. 73 m2 Comment: [...] reviewed 2021. Blood 05/17/2024 11:5 6 PM DIVISION TRAFFIC SUPERINTENDENT 05/18/2024 12:45 AM DIVISION TRAFFIC SUPERINTENDENT us Brissa Ko MD LAB BLOOD ORDERABLES Final Result [facility] Department of Laboratories [place], [place] [id number] * (ABNORMAL) CBC without differential (05/17/2024 11:56 PM DIVISION TRAFFIC SUPERINTENDENT) [facility] WBC 5.3 3.8 - 9.9 K/cumm Hgb 9.5(L) 11.9 - 15.5 g/dL [facility] Hct 31.7(L) 35.6 - 45.5 % [facility] Plt 147(L) 150 - 400 K/cumm [facility] MPV 11.0 9.1 - 12.3 fL [facility] RBC 3.23(L) 3.90 - 5.20 M/cumm [facility] MCV 98.1(H) 81.3 - 96.4 fL [facility] MCH 29.4 27.1 - 33.3 pg [facility] MCHC 30.0(L) 32.3 - 35.7 g/dL [facility] RDW CV 14.6 11.1 - 14.9 % [facility] RDW SD 52.7(H) 35.7 - 48.1 fL [facility] NRBC abs 0.00 0.00 - 0.01 K/cumm [facility] Blood 05/17/2024 11:5 6 PM DIVISION TRAFFIC SUPERINTENDENT 05/18/2024 12:45 AM DIVISION TRAFFIC SUPERINTENDENT Brissa Ko MD LAB BLOOD ORDERABLES Final Result Performing Organization Address [facility] Co de Phone Number [facility] [place] [address] * Phosphorus (05/17/2024 11:56 PM DIVISION TRAFFIC SUPERINTENDENT) [facility] Phosphorus, pl 3.9 2.3 - 4.5 mg/dL Blood 05/17/2024 11:5 6 PM DIVISION TRAFFIC SUPERINTENDENT 05/18/2024 12:45 AM DIVISION TRAFFIC SUPERINTENDENT Brissa Ko MD LAB BLOOD ORDERABLES Final Result Performing Organization Address City/[facility] Co de Phone Number [facility] [place] [address] * Magnesium (05/17/2024 11:56 PM DIVISION TRAFFIC SUPERINTENDENT) Magnesium 1.9 1.4 - 2.5 mg/dL Blood 05/17/2024 11:5 6 PM DIVISION TRAFFIC SUPERINTENDENT 05/18/2024 12:45 AM DIVISION TRAFFIC SUPERINTENDENT Brissa Ko MD LAB BLOOD ORDERABLES Final Result Performing Organization Address [facility]/ZIP Co de Phone Number [facility] [place] [address] * (ABNORMAL) Basic metabolic panel (05/17/2024 11:56 PM DIVISION TRAFFIC SUPERINTENDENT) Pathologist [facility] Sodium 146(H) 135 - 145 mmol/L Potassium, pl 5.0(H) 3.3 - 4.9 mmol/L [facility] Chloride 102 97 - 110 mmol/L [facility] CO2 37(H) 22 - 32 mmol/L [facility] Anion gap 7 2 - 15 mmol/L [facility] BUN 22 6 - 25 mg/dL [facility] Creatinine 0.83 0.60 - 1.10 mg/dL [facility] Glucose 101 70 - 199 mg/dL [facility] Comment: Interpretive Data Fasting glucose >/= 126 [...] 2022. Calcium 9.3 8.5 - 10.3 mg/dL [facility] Blood 05/17/2024 11:5 6 PM DIVISION TRAFFIC SUPERINTENDENT 05/18/2024 12:45 AM DIVISION TRAFFIC SUPERINTENDENT Brissa Ko MD LAB BLOOD ORDERABLES Final Result Performing Organization Address [facility]/State/ZIP Co de Phone Number [facility] Department [place] [address] * eGFR (05/16/2024 10:25 PM DIVISION TRAFFIC SUPERINTENDENT) [facility] eGFR 61 >=60 mL/min/1. 73 m2 Comment: [...] reviewed 2021. Blood 05/16/2024 10:2 5 PM DIVISION TRAFFIC SUPERINTENDENT 05/16/2024 10:50 PM DIVISION TRAFFIC SUPERINTENDENT Brissa Ko MD LAB BLOOD ORDERABLES Final Result [facility] Department [place] [address] * (ABNORMAL) CBC without differential (05/16/2024 10:25 PM DIVISION TRAFFIC SUPERINTENDENT) [facility] WBC 4.8 3.8 - 9.9 K/cumm Hgb 9.0(L) 11.9 - 15.5 g/dL [facility] Hct 30.0(L) 35.6 - 45.5 % [facility] Plt 134(L) 150 - 400 K/cumm [facility] MPV 10.6 9.1 - 12.3 fL [facility] RBC 3.01(L) 3.90 - 5.20 M/cumm [facility] MCV 99.7(H) 81.3 - 96.4 fL [facility] MCH 29.9 27.1 - 33.3 pg [facility] MCHC 30.0(L) 32.3 - 35.7 g/dL [facility] RDW CV 14.6 11.1 - 14.9 % [facility] RDW SD 53.5(H) 35.7 - 48.1 fL [facility] NRBC abs 0.00 0.00 - 0.01 K/cumm [facility] Blood 05/16/2024 10:2 5 PM DIVISION TRAFFIC SUPERINTENDENT 05/16/2024 10:50 PM DIVISION TRAFFIC SUPERINTENDENT Brissa Ko MD LAB BLOOD ORDERABLES Final Result Performing Organization Address [facility] Co de Phone Number [facility] [place] [address] * Phosphorus (05/16/2024 10:25 PM DIVISION TRAFFIC SUPERINTENDENT) Phosphorus, pl 3.9 2.3 - 4.5 mg/dL Blood 05/16/2024 10:2 5 PM DIVISION TRAFFIC SUPERINTENDENT 05/16/2024 10:50 PM DIVISION TRAFFIC SUPERINTENDENT Brissa Ko MD LAB BLOOD ORDERABLES Final Result Performing Organization Address City/[facility] Co de Phone Number [facility] [place] [address] * Magnesium (05/16/2024 10:25 PM DIVISION TRAFFIC SUPERINTENDENT) Magnesium 1.8 1.4 - 2.5 mg/dL Blood 05/16/2024 10:2 5 PM DIVISION TRAFFIC SUPERINTENDENT 05/16/2024 10:50 PM DIVISION TRAFFIC SUPERINTENDENT Brissa Ko MD LAB BLOOD ORDERABLES Final Result Performing Organization Address City/[facility] Co de Phone Number [facility] [place] [address] * (ABNORMAL) Basic metabolic panel (05/16/2024 10:25 PM DIVISION TRAFFIC SUPERINTENDENT) Sodium 146(H) 135 - 145 mmol/L Potassium, pl 4.7 3.3 - 4.9 mmol/L [facility] Chloride 103 97 - 110 mmol/L [facility] CO2 39(H) 22 - 32 mmol/L [facility] Anion gap 4 2 - 15 mmol/L [facility] BUN 23 6 - 25 mg/dL [facility] Creatinine 0.96 0.60 - 1.10 mg/dL [facility] Glucose 98 70 - 199 mg/dL [facility] Comment: Interpretive Data Fasting glucose >/= 126 [...] 2022. Calcium 9.0 8.5 - 10.3 mg/dL [facility] Blood 05/16/2024 10:2 5 PM DIVISION TRAFFIC SUPERINTENDENT 05/16/2024 10:50 PM DIVISION TRAFFIC SUPERINTENDENT Brissa Ko MD LAB BLOOD ORDERABLES Final Result [facility] [place] [address] from Last 3 Months Insurance MEDICARE [facility]ICARE [facility] MEDICARE SUPPLEMENT MEDICARE BLUE CROSS MEDICARE SUPPLEMENT Advance Directives For more information, please contact: [phone] * Full Code (Latest Code Status on File) Date Activated Date Inactivated Comments 05/13/2024 8:42 PM 05/27/2024 11:27 PM Care Teams Manager Ship Relationship Specialty Start Date End Date Meagan Yusuf MD PCP - General Family Medicine 05/22/23 Annemarie Lea MD [address] [place] [address] Consulting Physician Otolaryngology 05/27/24 Margy Walker MD PhD [address] [place] [address] Consulting Physician Plastic Surgery 05/27/24 Geraldine Barbosa NP [address] [place] [address] Nurse Practitioner Neurosurgery 05/27/24
--- OUTSIDE RECORDS SUMMARY | 2024-08-13 00:59 | XMS_ITS ---
Author Name Auto Generated, Auto Generated Organization [employer] [employer] [facility] Address [address] [place] [address] Phone [phone] Care Team Providers Care Guard Range Name Role Phone Camila Spence Unavailable Liseth Suherine Unavailable Meagan Turner Unavailable Functional Status No Results Mental Status No Results Allergies and Intolerances Name Onset Date Reaction Severity thiopental (Allergy) SatFeb 06 12:18:00 EST 202 3 penicillin (Allergy) SatFeb 06 12:18:00 EST 202 3 Encounters Program Name Primary Diagnosis Admission Date/Time Dis charge Date/Time [facility] Care [facility] SatJun 16 10:00:00 EDT 2024Jul 07 09:45:00 EDT 2024 [facility] [place] [facility] SatAugust 19 13:00:00 EDT [...] Hours for 4 Days Indication: Pneumonia (2 [id number]) SatFeb 06 14:00:00 2022Feb 10 13:59:00 2022 [...] * End Date: * Text: * terminal carman (current) use of anticoagulants* Code: * Start [...] 2023 * End Date: * Text: * terminal carman (current) use of opiate analgesic* Code: * [...] * Text: * Atherosclerotic heart disease of [place] coronary artery without angina pectoris* Code: * [...] 2024 * End Date: * Text: * [id number] Ping receives a therapeutic diet. (12)* Code: * Start Date: SatJun 25 00:00:00 EDT 2024 * End Date: * Text: [id number] Ping receives a therapeutic diet. (12) * LSS_COPD Roger Feng has diagnosis of COPD.* Code: * Start Date: SatJun 29 00:00:00 EDT 2024 * End Date: * Text: GIANNAS_COPD Roger Feng has diagnosis of COPD. * [...] skin integrity.* Code: * Start Date: SatJun 29:00:00 EDT 2024 * End Date: * Text: LSS_Skin Integrity - (Potential Alteration of)- Ping is at risk for developing impaired skin integrity. * LSS_ADLs - Ping has ADL selfcare deficit related to decreased mobility and muscle weakness* Code: * Start Date: SatJun 29:00:00 EDT 2024 * End Date: * Text: LSS_ADLs - Ping has ADL selfcare deficit related to decreased mobility and muscle weakness * LSS_Urinary Incontinence1 - Ping is occasionally incontinent.* Code: * Start Date: SatJun 29:00:00 EDT 2024 * End Date: * Text: LSS_Urinary Incontinence1 - Ping is occasionally incontinent. * LSS_Social ServicesRoger Feng's wishes will be followed (Advanced Directive/Code Status).* Code: * Start Date: SatJun 29::00 EDT 2024 * End Date: * Text: LSS_Social ServicesRoger Feng's wishes will be followed (Advanced Directive/Code Status). * GIANNASAmilcarSocial ServicesRoger Feng will be involved in goal development to the best of his or her ability.* Code: * Start Date: SatJun 29::00 EDT 2024 * End Date: * Text: GIANNASAmilcarSocial ServicesRoger Feng will be involved in goal development to the best of his or her ability. * GIANNASAmilcarSocial Allegra Feng has family/friends who are supportive.* Code: * Start Date: SatJun 29::00 EDT 2024 * End Date: * Text: GIANNASAmilcarSocial ServicesRoger Feng has family/friends who are supportive. * LSSAmilcarSocial ServicesRoger Feng will be involved in discharge planning.* Code: * Start Date: SatJun 29:00:00 EDT 2024 * End Date: * Text: GIANNASAmilcarSocial ServicesRoger Feng will be involved in discharge planning. * NEGRITOSocial Allegra Feng has a dx of depression and is currently on an antidepressant.* Code: * Start Date: SatJun 29:00:00 EDT 2024 * End Date: * Text: NEGRITOSocial Allegra Feng has a dx of depression and is currently on an antidepressant. * NEGRITOSocial Allegra Feng's mobility level is different than prior level due to current medical condition.* Code: * Start Date: SatJun 29 00:00:00 EDT 2024 * End Date: * Text: Becky Feng's mobility level is different than prior level due to current medical condition. * NEGRITOSocial Allegra Feng will be involved in discharge planning.* Code: * Start Date: SatAug 23:00:00 EDT 2023 * End Date: * Text: NEGRITOSocial Allegra Feng will be involved in discharge planning. * Becky Feng has a dx of depression and is currently on an antidepressant.* Code: * Start Date: SatAug 23::00 EDT 2023 * End Date: * Text: Becky Feng has a dx of depression and is currently on an antidepressant. * NEGRITOSocial Allegra Feng's mobility level is different than prior level due to current medical condition.* Code: * Start Date: SatAug 23::00 EDT 2023 * End Date: * Text: Becky Feng's mobility level is different than prior level due to current medical condition. * Becky Feng has family/friends who are supportive.* Code: * Start Date: SatAug 23:00:00 EDT 2023 * End Date: * Text: NEGRITOSocial Allegra Feng has family/friends who are supportive. * NEGRITOSocial Allegra Feng will be involved in goal development to the best of his or her ability.* Code: * Start Date: SatAug 23:00:00 EDT 2023 * End Date: * Text: NEGRITOSocial Allegra Feng will be involved in goal development to the best of his or her ability. * NEGRITOSocial Allegra Feng's wishes will be followed (Advanced Directive/Code Status).* Code: * Start Date: SatAug 23:00:00 EDT [...] EDT 2024 Diastolic Blood Pressure 80.00 mm[Hg] [facility] Apr 12 22:04:55 EDT 2024 Systolic Blood Pressure 122.00 mm[Hg] [facility] Apr 12 22:04:55 EDT 2024 Diastolic Blood Pressure 80.00 mm[Hg] [facility] Apr 12 22:04:55 EDT 2024 Heart Rate 94.00 /min Sat Apr 12 22:04 :55 EDT 2024 Heart Rate 94.00 /min [facility] Apr 12 22:04 :55 EDT 2024 Body weight 212.80 [lb_av] Sat Apr 12 17:09 :01 EDT 2024 Systolic Blood Pressure 119.00 mm[Hg] Sat Apr 12 14:27:00 EDT 2024 Diastolic Blood Pressure 83.00 mm[Hg] [facility] Apr 12 14:27:00 EDT 2024 [...] :23 EDT 2024 Pulse Oximetry 93.00 % [facility] Apr 12 11:56 :23 EDT [...] :17 EDT 2024 Body temperature 98.70 [degF] Ojhana Jun 25 08:5 8:17 EDT 2024 Respiratory [...] mm[Hg] Sat Mar 29 23:58:36 EDT 2024 Pulse Oximetry 91.00 % Sat Mar 29 23:58 :36 EDT 2024 Heart Rate 102.00 /min Sat [...] 75.00 mm[Hg] SatJun 19 00:46:34 EDT 2024 Body temperature 98.00 [degF] SatJun 19 00:4 6:34 EDT 2024 Respiratory rate 20.00 /min SatJun 19 00:4 6:34 EDT 2024 Heart Rate 73.00 /min SatJun 19 00:46 :34 EDT 2024 Pulse [...] mm[Hg] Pavithra Clemente 10 20:42:01 EDT 2023 Systolic Blood [...] EDT 2023 Diastolic Blood Pressure 83.00 mm[Hg] [facility] Aug 08 08:12:00 EDT 4 Systolic Blood Pressure 125.00 mm[Hg] [facility] Aug 08 08:12:00 EDT 4 Diastolic Blood Pressure 83.00 mm[Hg] Sat Aug 08 08:12:00 EDT 4 Heart Rate 86.00 /min Sat Aug 08 08:12 :00 EDT 4 Heart Rate 86.00 /min [facility] Aug 08 08:12 :00 EDT 4 Body temperature 98.50 [degF] Sat Aug 08 08:1 2:00 EDT 4 Respiratory rate 20.00 /min Sat Aug 08 08:1 2:00 EDT 4 Pulse Oximetry 95.00 % [facility] Aug 08 08:12 :00 EDT [...] 20:32:26 EDT 2023 Heart Rate 78.00 /min [facility] Aug 23 20:32 :26 EDT 4 Systolic Blood Pressure 119.00 mm[Hg] [facility] Aug 23 19:37:36 EDT 2023 Diastolic Blood Pressure 72.00 mm[Hg] [facility] Aug 23 19:37:36 EDT 2023 Heart Rate 81.00 /min [facility] Aug 23 19:37 :36 EDT 4 Body temperature 97.70 [degF] [facility] Aug 23 19:3 7:36 EDT 2023 Respiratory rate 18.00 /min [facility] Aug 23 19:3 7:36 EDT 2023 Pulse Oximetry 92.00 % [facility] Aug 23 19:37 :36 EDT 2023 Body weight 198.80 [lb_av] [facility] Aug 23 17:53 :45 EDT 2023 Systolic Blood Pressure 113.00 mm[Hg] [facility] Aug 23 08:59:28 EDT 2023 Diastolic Blood Pressure 82.00 mm[Hg] [facility] Aug 23 08:59:28 EDT 2023 Systolic Blood Pressure 113.00 mm[Hg] [facility] Aug 23 08:59:28 EDT 2023 Diastolic Blood Pressure 82.00 mm[Hg] [facility] Aug 23 08:59:28 EDT 4 Systolic Blood Pressure 113.00 mm[Hg] [facility] Aug 23 08:59:28 EDT 2023 Diastolic Blood Pressure 82.00 mm[Hg] [facility] Aug 23 08:59:28 EDT 4 Heart Rate 80.00 /min [facility] Aug 23 08:59 :28 EDT 2023 Heart Rate 80.00 /min [facility] Aug 23 08:59 :28 EDT 2023 Body temperature 98.30 [degF] [facility] Aug 23 08:5 9:28 EDT 2023 Respiratory rate 22.00 /min [facility] Aug 23 08:5 9:28 EDT 2023 Pulse Oximetry 92.00 % [facility] Aug 23 08:59 :28 EDT [...]
--- OUTSIDE RECORDS SUMMARY | 2024-08-13 00:59 | XMS_ITS | Encounter Summary ---
Author Organization [employer] Address 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
--- OUTSIDE RECORDS SUMMARY | 2024-08-13 00:59 | XMS_ITS | Encounter Summary ---
Author Organization [employer] Address 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
--- OUTSIDE RECORDS SUMMARY | 2024-08-13 01:00 | XMS_ITS | Clinical Summary ---
Author Organization [facility] Address [address] [place] [phone] Care Team Providers Care Automatic Coin Machine Mechanic Name Role Phone Meagan Yusuf MD Primary Care Provider + Annemarie Lea MD Unavailable [phone] Margy Walker MD PhD Unavailable [phone] Geraldine Barbosa NP Unavailable [phone] Allergies Active Allergy Reactions Criticality Noted Date [...] HFrEF (heart failure with reduced ejection fraction) (FORMERLY [facility]) TAKE 1 TABLET BY MOUTH IN THE [...] 05/23/2024 Assessment & Plan (05/26/2024 9:50 AM PIPE TESTING TECHNICIAN): #COPD #TRAVIS, chronic #Chronic hypoxic respiratory failure [...] 05/23/2024 Assessment & Plan (05/27/2024 11:52 AM PIPE TESTING TECHNICIAN): 3 tx out ICU, PT/OT - 05/25: awaiting repeat swallow evaluation, calorie counts - 05/26: Continue Tfs at nightly, Calorie counts. Wean O2 back to home 4L. Not medically ready for discharge. 05/27: Patient is medically stable for discharge, SW/CM updated. Discharge pending facility bed availability Treatment note 05/14 [x] Feeding difficulties 05/22/2024 Assessment & Plan (05/27/2024 11:55 AM PIPE TESTING TECHNICIAN): SBFT placed by ENT 05/21 TFs commenced [...] NPO, resumed tube feeds, ordered for repeat CPO evaluation. Recommend up in chair for all meals and 1:1 assistance during meals pending CPO evaluation. Discussed with patient and nurse to inform provider of any change in clinical exam or vital signs. 05/25: repeat Swallow- regular diet, regular thin liquids assistance with meals, calorie counts ordered, cycle tube feeding over PM MBS (05/27): swallow mechanism is normal Respiratory distress 05/20/2024 Assessment & Plan (05/27/2024 11:55 AM PIPE TESTING TECHNICIAN): Transferred to SICU 05/18 ON after respiratory [...] 05/14/2024 Assessment & Plan (05/15/2024 2:15 PM PIPE TESTING TECHNICIAN): - Orthostatic vital signs (05/14): negative - [...] 05/14/2024 Assessment & Plan (05/14/2024 12:48 PM PIPE TESTING TECHNICIAN): - Tylenol 1g q6h - Gabapentin 300mg TID - Robaxin 500mg TID PRN - Oxycodone 5mg q4h PRN Closed fracture of distal end of left radius Assessment & Plan (05/27/2024 11:55 AM PIPE TESTING TECHNICIAN): - Plastics consult - L hand/wrist xr [...] 05/14/2024 Assessment & Plan (05/25/2024 11:39 AM PIPE TESTING TECHNICIAN): - Magnesium (05/14): 1.9mg/dL - 05/14: replete Magnesium 2g IV - Magnesium (05/15): 2.0mg/dL - Magnesium (05/20): 2.2mg/dL - Magnesium (05/25): 2.0mg/dL - continue to trend Magnesium Fall, initial encounter 05/13/2024 Assessment & Plan (05/15/2024 10:18 AM PIPE TESTING TECHNICIAN): Syncopal workup given unclear mechanism (TTE, carotid [...] months Assessment & Plan (05/27/2024 11:52 AM PIPE TESTING TECHNICIAN): Ophtho c/s ---HOB elevation, open-mouth sneezing, no [...] to be tasked with Dr Lea's team. 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 CTM BP and resume home lasix when appropriate. Restless leg syndrome 05/13/2024 Assessment & Plan (05/13/2024 2:32 PM PIPE TESTING TECHNICIAN): - Continue home ropinrole and pramipexole, gabapentin Mood disorder 05/13/2024 Assessment & Plan (05/13/2024 2:37 PM PIPE TESTING TECHNICIAN): Continue home zoloft Heart failure with mildly re duced ejection fraction (HFmrEF) 01/15/2024 Assessment & Plan (05/27/2024 11:57 AM PIPE TESTING TECHNICIAN): #HTN, chronic #HFrEF, chronic #Severe MR #Severe TI #Severe pulmonary hypertension - TTEs as above - Home O2 4L - Follows with [facility] Cardiology - Home Diltiazem, Entresto, Lasix (1/2 dose) and metoprolol continued Persistent atrial fibrillation 02/20/2022 Noncompliance with medicatio n treatment due to intermittent use of medication 12/18/2021 Morbid (severe) obesity due to excess calories 0 07/05/2021 Labile hypertension 03/23/2021 Hypotension due to drugs 03/23/2021 Coronary artery disease invo lving sk[place]omish coronary artery of skok[place]ish heart without angina pectoris 02/10/2021 Mixed hyperlipidemia 02/10/2021 Chronic obstructive pulmonary disease 02/10/2021 Chronic respiratory failure with hypoxia 021 TRAVIS on CPAP 02/10/2021 Frequent falls 02/10/2021 Resolved Problems Problem Noted Date Diagnosed Date Resolved Date COPD (chronic obstructive pulmonary disease) 5 05/23/2024 Assessment & Plan (05/13/2024 2:35 PM PIPE TESTING TECHNICIAN): - home meds: albuterol, ipratopium-albuterol Discharge planning issues 05/13/2024 Assessment & Plan (05/18/2024 2:27 PM PIPE TESTING TECHNICIAN): - 05/14: orthostatic vital signs pending, syncope [...] Department Care Team Description 08/07/2024 Results Follow-Up [facility] Cardiology [address] [place] [address] Cinda Jimenez MD Transthoracic Echo (TTE) Complete W Doppler/CF 08/06/2024 2:00 PM CDT Ancillary Procedure [facility] Medical [facility] Cardiology at [address] [place] [address] Nonrheumatic mitral valve regurgitation; Nonrheumatic tricuspid valve regurgitation 07/22/2024 9:30 AM CDT Office Visit [facility] Cardiology at [address] [place] [address] Cinda Jimenez MD Nonrheumatic mitral valve regurgitation (Primary Dx); Nonrheumatic tricuspid valve regurgitation; Mixed hyperlipidemia; Labile hypertension; Coronary artery disease involving skokomish coronary artery of skokomish heart without angina pectoris; Frequent falls; Persistent atrial fibrillation (HCC); Chronic anticoagulation; Chronic diastolic heart failure (HCC) 06/30/2024 10:00 AM CDT Office Visit [facility] Ophthalmology [address] [place] [address] [place] [address] Leeann Horvath MD Orbital floor (blow-out) closed fracture (HCC) (Primary Dx); Mixed type age-related cataract, both eyes 06/23/2024 11:59 AM CDT - 06/23/2024 11:59 PM CDT Hospital Encounter [facility] [address] [place] [phone] Discharge Disposition: Discharge to home or self care 06/23/2024 11:00 AM CDT Office Visit [facility] Surgery [address] [facility] 6th [place] [address] Margy Walker MD PhD Fracture (Primary Dx); Other closed intra-articular fracture of distal end of left radius, initial encounter 06/15/2024 Telephone [facility] Surgery [address] [facility] 6th [place] [address] Erica Velarde 06/09/2024 Telephone [facility] Scheduling [address] [place] [address] Nu Milian MD 05/31/2024 Telephone [facility] Ophthalmology [address] [place] [address] 1st [place] [address] Leeann Horvath MD 05/28/2024 Documentation [facility] Surgeon [address] [place] [address] Lorena Beck NP 05/27/2024 Telephone [facility] Advanced Medicine ([facility]) - [facility] ENT [address] [facility] Advanced [facility] 11th [place] [address] [place] [address] Sybil Burgess, 05/19/2024 7:51 AM PIPE TESTING TECHNICIAN Anesthesia Event [facility] Operating Room [address] [place] [address] Mag Villatoro MD Ridenour, Rebekah Elizabeth, ALFONSO 05/19/2024 7:30 AM PIPE TESTING TECHNICIAN - 05/19/2024 10:50 AM PIPE TESTING TECHNICIAN Surgery [facility] Operating Room [address] [place] [address] Annemarie Lea MD OPEN REDUCTION INTERNAL FIXATION - ORBITAL FRACTURE 05/18/2024 3:50 PM PIPE TESTING TECHNICIAN - 05/18/2024 6:30 PM PIPE TESTING TECHNICIAN Surgery [facility] Operating Room [address] [place] [address] Margy Walker MD PhD OPEN REDUCTION INTERNAL FIXATION RADIUS - DISTAL 05/18/2024 3:47 PM PIPE TESTING TECHNICIAN Anesthesia Event [facility] Operating Room [address] [place] [address] Zack Rizvi MD Ridenour, Rebekah Elizabeth, ALFONSO 05/13/2024 12:53 AM PIPE TESTING TECHNICIAN - 05/27/2024 7:22 PM PIPE TESTING TECHNICIAN Hospital [address] [address] Edwige Strickland MD Vallar, Kelly Jean, MD Smith, Eunice Ruma, MD Croft, Irineo, MD Fall, initial encounter [...] ARTHROPLASTY Medical History Medical History Date Comments [place], old CHF (congestive heart failure) (HCC) Alcohol [...] on file Legal Sex Female 4:29 PM PIPE TESTING TECHNICIAN Gender Identity Not on file Sexual Orientation Not on file Obstetrics History Last Filed Vital Signs Vital Sign Reading Time Taken Comments Blood Pressure 120/72 07/22/2024 9:18 AM CDT Pulse 81 07/22/2024 9:18 AM CDT Temperature 37.1 C (98.8 F) 05/27/2024 3:28 PM PIPE TESTING TECHNICIAN Respiratory Rate 20 05/27/2024 11:49 AM PIPE TESTING TECHNICIAN Oxygen Saturation 92% 07/22/2024 9:18 AM CDT [...] 05/08/2018, 12/24 Medical Devices Implanted Type Area Scraper Burrer Device Identifier Shelf Expiration Date Model / Serial / Lot Implantech Sheeting Silastic Non Reinforced Alliedsil [id number] Silicone 23-700-40 - [id number] Implanted:Qty: 1 on 05/19/2024 by Annemarie Lea MD at [facility] Other - see comments Right: Face Implantech 07/03/2028-700- 40 / / Luis Carlos Craniomaxillofacial Craniomaxillofacial Right 3d Large Implant Orbital Medpor Titan [id number] - [id number] Implanted:Qty: 1 on 05/19/2024 by Annemarie Lea MD at [facility] Other - see comments Right: Face Sidney Craniomaxillofacial 08/19/2032 10784 / / Sidney Craniomaxillofacial 1.2mm 4mm Self Drill Axial Stability Lower Profile Screw Bone 56-15991 - [id number] Implanted:Qty: 1 on 05/19/2024 by Annemarie Lea MD at [facility] Other - see comments Right: Face Luis Carlos Craniomaxillofacial 56-1290 4 / / Medartis Inc Plt 2.5 Adaptive Ii Trilock Dist Rad Vol L 10h Narrow T2.0 A-4750.101 - [id number] Implanted:Qty: 1 on 05/18/2024 by Margy Walker MD PhD at [facility] Left: Wrist Medartis Inc A-4750. 101 / / Medartis Inc 2.5mm 18mm Lock Cortical Screw Bone A-5750.18 - [id number] Implanted:Qty: 1 on 05/18/2024 by Margy Walker MD PhD at [facility] Left: Wrist [employer] Inc A-5750. 18 / / Med[employer]is Inc 2.5mm 22mm Lock Cortical Screw Bone A-5750.22 - [id number] Implanted:Qty: 2 on 05/18/2024 by Margy Walker MD PhD at [facility] Left: Wrist [employer] Inc A-5750. 22 / / [employer] Inc 2.5mm 20mm Lock Cortical Screw Bone A-5750.20 - [id number] Implanted:Qty: 3 on 05/18/2024 by Margy Walker MD PhD at [facility] Left: Wrist [employer] Inc A-5750. 20 / / Medartis Inc Aptus 2.5mm 14mm Lock Cortical Screw Bone A-5750.14 - [id number] Implanted:Qty: 2 on 05/18/2024 by Margy Walker MD PhD at [facility] Left: Wrist [employer] Inc A-5750. 14 / / Medartis Inc Aptus 2.5mm 14mm Cortical Screw Bone A-5700.14 - [id number] Implanted:Qty: 1 on 05/18/2024 by Margy Walker MD PhD at [facility] Left: Wrist [employer] Inc A-5700. 14 / / Medartis Inc 2.5mm 12mm Lock Cortical Screw Bone A-5750.12 - [id number] Implanted:Qty: 1 on 05/18/2024 by Margy Walker MD PhD at [facility] Left: Wrist [employer] Inc A-5750. 12 / / Explanted Type Area Scraper Burrer Device Identifier Shelf Expiration Date Model / Serial / Lot Medartis Inc Aptus 2.5mm 16mm Cortical Screw Bone A-5700.16 - [id number] Explanted:Qty: 1 on 05/18/2024 by Margy Walker MD PhD at [facility] Left: Wrist [employer] A-5700 .16 / / Medartis Inc 2.5mm 18mm Lock Cortical Screw Bone A-5750.18 - [id number] Explanted:Qty: 1 on 05/18/2024 at [facility] Left: Wrist Medartis Inc A-5750 .18 / [...] W VIDEO IP Routine 05/27/2024 10:35 AM PIPE TESTING TECHNICIAN EGFR Routine 05/26/2024 9:12 PM PIPE TESTING TECHNICIAN BASIC METABOLIC PANEL Routine 05/26/2024 9:12 PM PIPE TESTING TECHNICIAN CBC WITHOUT DIFFERENTIAL Routine 05/26/2024 9:12 PM PIPE TESTING TECHNICIAN MAGNESIUM Routine 05/26/2024 9:12 PM PIPE TESTING TECHNICIAN PHOSPHORUS Routine 05/26/2024 9:12 PM PIPE TESTING TECHNICIAN PEP THERAPY Routine 05/26/2024 12:01 PM PIPE TESTING TECHNICIAN PEP THERAPY Routine 05/26/2024 6:01 AM PIPE TESTING TECHNICIAN PEP THERAPY Routine 05/26/2024 12:00 AM PIPE TESTING TECHNICIAN EGFR Routine 05/25/2024 9:54 PM PIPE TESTING TECHNICIAN BASIC METABOLIC PANEL Routine 05/25/2024 9:54 PM PIPE TESTING TECHNICIAN CBC WITHOUT DIFFERENTIAL Routine 05/25/2024 9:54 PM PIPE TESTING TECHNICIAN MAGNESIUM Routine 05/25/2024 9:54 PM PIPE TESTING TECHNICIAN PHOSPHORUS Routine 05/25/2024 9:54 PM PIPE TESTING TECHNICIAN PEP THERAPY Routine 05/25/2024 6:00 PM PIPE TESTING TECHNICIAN PEP THERAPY Routine 05/25/2024 12:00 PM PIPE TESTING TECHNICIAN PEP THERAPY Routine 05/25/2024 6:01 AM PIPE TESTING TECHNICIAN PEP THERAPY Routine 05/25/2024 12:00 AM PIPE TESTING TECHNICIAN ECG 12-LEAD STAT 05/24/2024 10:55 PM PIPE TESTING TECHNICIAN EGFR Routine 05/24/2024 8:54 PM PIPE TESTING TECHNICIAN BASIC METABOLIC PANEL Routine 05/24/2024 8:54 PM PIPE TESTING TECHNICIAN CBC WITHOUT DIFFERENTIAL Routine 05/24/2024 8:54 PM PIPE TESTING TECHNICIAN MAGNESIUM Routine 05/24/2024 8:54 PM PIPE TESTING TECHNICIAN PHOSPHORUS Routine 05/24/2024 8:54 PM PIPE TESTING TECHNICIAN PEP THERAPY Routine 05/24/2024 6:00 PM PIPE TESTING TECHNICIAN PEP THERAPY Routine 05/24/2024 12:00 PM PIPE TESTING TECHNICIAN PEP THERAPY Routine 05/24/2024 6:00 AM PIPE TESTING TECHNICIAN PEP THERAPY Routine 05/24/2024 12:00 AM PIPE TESTING TECHNICIAN ECG 12-LEAD Routine 05/23/2024 11:24 PM PIPE TESTING TECHNICIAN EGFR Routine 05/23/2024 8:13 PM PIPE TESTING TECHNICIAN BASIC METABOLIC PANEL Routine 05/23/2024 8:13 PM PIPE TESTING TECHNICIAN CBC WITHOUT DIFFERENTIAL Routine 05/23/2024 8:13 PM PIPE TESTING TECHNICIAN MAGNESIUM Routine 05/23/2024 8:13 PM PIPE TESTING TECHNICIAN PHOSPHORUS Routine 05/23/2024 8:13 PM PIPE TESTING TECHNICIAN PEP THERAPY Routine 05/23/2024 6:00 PM PIPE TESTING TECHNICIAN PEP THERAPY Routine 05/23/2024 12:00 PM PIPE TESTING TECHNICIAN CRITICAL CARE Routine 05/23/2024 6:40 AM PIPE TESTING TECHNICIAN Fall, initial encounter PEP THERAPY Routine 05/23/2024 6:00 AM PIPE TESTING TECHNICIAN PEP THERAPY Routine 05/23/2024 12:01 AM PIPE TESTING TECHNICIAN POCT GLUCOSE DEVICE Routine 05/22/2024 11:10 PM PIPE TESTING TECHNICIAN EGFR Routine 05/22/2024 8:23 PM PIPE TESTING TECHNICIAN BASIC METABOLIC PANEL Routine 05/22/2024 8:23 PM PIPE TESTING TECHNICIAN CBC WITHOUT DIFFERENTIAL Routine 05/22/2024 8:23 PM PIPE TESTING TECHNICIAN MAGNESIUM Routine 05/22/2024 8:23 PM PIPE TESTING TECHNICIAN PHOSPHORUS Routine 05/22/2024 8:23 PM PIPE TESTING TECHNICIAN CRITICAL CARE Routine 05/22/2024 7:32 PM PIPE TESTING TECHNICIAN Fall, initial encounter POCT GLUCOSE DEVICE Routine 05/22/2024 6 :58 PM PIPE TESTING TECHNICIAN PEP THERAPY Routine 05/22/2024 6:00 PM PIPE TESTING TECHNICIAN IRON PROFILE W/ IBC STAT 05/22/2024 3 :44 PM PIPE TESTING TECHNICIAN POCT GLUCOSE DEVICE Routine 05/22/2024 3 :03 PM PIPE TESTING TECHNICIAN PEP THERAPY Routine 05/22/2024 12:00 PM PIPE TESTING TECHNICIAN POCT GLUCOSE DEVICE Routine 05/22/2024 10:55 AM PIPE TESTING TECHNICIAN POCT GLUCOSE DEVICE Routine 05/22/2024 7 :01 AM PIPE TESTING TECHNICIAN CRITICAL CARE Routine 05/22/2024 6:44 AM PIPE TESTING TECHNICIAN Fall, initial encounter PEP THERAPY Routine 05/22/2024 6:01 AM PIPE TESTING TECHNICIAN BLOOD GAS, ARTERIAL Routine 05/22/2024 4 :31 AM PIPE TESTING TECHNICIAN POCT GLUCOSE DEVICE Routine 05/22/2024 3 :02 AM PIPE TESTING TECHNICIAN PEP THERAPY Routine 05/22/2024 12:00 AM PIPE TESTING TECHNICIAN POCT GLUCOSE DEVICE Routine 05/21/2024 10:54 PM PIPE TESTING TECHNICIAN EGFR Routine 05/21/2024 8:54 PM PIPE TESTING TECHNICIAN BLOOD GAS, ARTERIAL Routine 05/21/2024 8 :54 PM PIPE TESTING TECHNICIAN BASIC METABOLIC PANEL Routine 05/21/2024 8:54 PM PIPE TESTING TECHNICIAN CBC WITHOUT DIFFERENTIAL Routine 05/21/2024 8:54 PM PIPE TESTING TECHNICIAN MAGNESIUM Routine 05/21/2024 8:54 PM PIPE TESTING TECHNICIAN PHOSPHORUS Routine 05/21/2024 8:54 PM PIPE TESTING TECHNICIAN XR CHEST 1 VIEW IP Routine 05/21/2024 8:36 PM PIPE TESTING TECHNICIAN CRITICAL CARE Routine 05/21/2024 8:00 PM PIPE TESTING TECHNICIAN Fall, initial encounter POCT GLUCOSE DEVICE Routine 05/21/2024 7 :43 PM PIPE TESTING TECHNICIAN PEP THERAPY Routine 05/21/2024 6:00 PM PIPE TESTING TECHNICIAN BLOOD GAS, ARTERIAL STAT 05/21/2024 3 :11 PM PIPE TESTING TECHNICIAN POCT GLUCOSE DEVICE Routine 05/21/2024 3 :10 PM PIPE TESTING TECHNICIAN EXTUBATION Routine 05/21/2024 2:27 PM PIPE TESTING TECHNICIAN PEP THERAPY Routine 05/21/2024 12:00 PM PIPE TESTING TECHNICIAN POCT GLUCOSE DEVICE Routine 05/21/2024 11:14 AM PIPE TESTING TECHNICIAN T4, FREE Routine 05/21/2024 9:07 AM PIPE TESTING TECHNICIAN AMMONIA Routine 05/21/2024 9:07 AM PIPE TESTING TECHNICIAN THYROID FUNCTION CASCADE Routine 05/21/2024 9:07 AM PIPE TESTING TECHNICIAN TRIGLYCERIDES Timed 05/21/2024 9:07 AM PIPE TESTING TECHNICIAN POCT GLUCOSE DEVICE Routine 05/21/2024 7 :24 AM PIPE TESTING TECHNICIAN CRITICAL CARE Routine 05/21/2024 7:02 AM PIPE TESTING TECHNICIAN Fall, initial encounter PEP THERAPY Routine 05/21/2024 6:01 AM PIPE TESTING TECHNICIAN POCT GLUCOSE DEVICE Routine 05/21/2024 3 :47 AM PIPE TESTING TECHNICIAN XR CHEST 1 VIEW ED Urgent/IP Urgent 05/21/2024 12:12 AM PIPE TESTING TECHNICIAN PEP THERAPY Routine 05/21/2024 12:00 AM PIPE TESTING TECHNICIAN POCT GLUCOSE DEVICE Routine 05/20/2024 11:29 PM PIPE TESTING TECHNICIAN XR ABDOMEN AP 1 VIEW ED Urgent/IP Urgent 05/20/2024 8:05 PM PIPE TESTING TECHNICIAN EGFR Routine 05/20/2024 7:44 PM PIPE TESTING TECHNICIAN BASIC METABOLIC PANEL Routine 05/20/2024 7:44 PM PIPE TESTING TECHNICIAN CBC WITHOUT DIFFERENTIAL Routine 05/20/2024 7:44 PM PIPE TESTING TECHNICIAN MAGNESIUM Routine 05/20/2024 7:44 PM PIPE TESTING TECHNICIAN PHOSPHORUS Routine 05/20/2024 7:44 PM PIPE TESTING TECHNICIAN POCT GLUCOSE DEVICE Routine 05/20/2024 7 :36 PM PIPE TESTING TECHNICIAN CRITICAL CARE Routine 05/20/2024 6:22 PM PIPE TESTING TECHNICIAN Fall, initial encounter PEP THERAPY Routine 05/20/2024 6:00 PM PIPE TESTING TECHNICIAN POCT GLUCOSE DEVICE Routine 05/20/2024 3 :33 PM PIPE TESTING TECHNICIAN PEP THERAPY Routine 05/20/2024 12:00 PM PIPE TESTING TECHNICIAN POCT GLUCOSE DEVICE Routine 05/20/2024 11:36 AM PIPE TESTING TECHNICIAN POCT GLUCOSE DEVICE Routine 05/20/2024 7 :28 AM PIPE TESTING TECHNICIAN CRITICAL CARE Routine 05/20/2024 7:27 AM PIPE TESTING TECHNICIAN Fall, initial encounter XR CHEST 1 VIEW ED Urgent/IP Urgent 05/20/2024 6:25 AM PIPE TESTING TECHNICIAN PEP THERAPY Routine 05/20/2024 6:01 AM PIPE TESTING TECHNICIAN POCT GLUCOSE DEVICE Routine 05/20/2024 3 :47 AM PIPE TESTING TECHNICIAN BLOOD GAS, ARTERIAL STAT 05/20/2024 3 :01 AM PIPE TESTING TECHNICIAN PEP THERAPY Routine 05/20/2024 12:00 AM PIPE TESTING TECHNICIAN POCT GLUCOSE DEVICE Routine 05/19/2024 11:34 PM PIPE TESTING TECHNICIAN REPOSITION ENDOTRACHEAL TUBE Routine 05/19/2024 10:35 PM PIPE TESTING TECHNICIAN EGFR Routine 05/19/2024 9:35 PM PIPE TESTING TECHNICIAN BLOOD GAS, ARTERIAL Routine 05/19/2024 9 :35 PM PIPE TESTING TECHNICIAN BASIC METABOLIC PANEL Routine 05/19/2024 9:35 PM PIPE TESTING TECHNICIAN CBC WITHOUT DIFFERENTIAL Routine 05/19/2024 9:35 PM PIPE TESTING TECHNICIAN MAGNESIUM Routine 05/19/2024 9:35 PM PIPE TESTING TECHNICIAN PHOSPHORUS Routine 05/19/2024 9:35 PM PIPE TESTING TECHNICIAN CRITICAL CARE Routine 05/19/2024 8:59 PM PIPE TESTING TECHNICIAN Fall, initial encounter POCT GLUCOSE DEVICE Routine 05/19/2024 7 :36 PM PIPE TESTING TECHNICIAN PEP THERAPY Routine 05/19/2024 6:00 PM PIPE TESTING TECHNICIAN POCT GLUCOSE DEVICE Routine 05/19/2024 3 :43 PM PIPE TESTING TECHNICIAN RT COMMUNICATION Routine 05/19/2024 2:30 PM PIPE TESTING TECHNICIAN XR CHEST 1 VIEW ED Urgent/IP Urgent 05/19/2024 2:08 PM PIPE TESTING TECHNICIAN POCT GLUCOSE DEVICE Routine 05/19/2024 12:49 PM PIPE TESTING TECHNICIAN EGFR STAT 05/19/2024 12:45 PM PIPE TESTING TECHNICIAN PHOSPHORUS STAT 05/19/2024 12:45 PM PIPE TESTING TECHNICIAN MAGNESIUM STAT 05/19/2024 12:45 PM PIPE TESTING TECHNICIAN BASIC METABOLIC PANEL STAT 05/19/2024 12:45 PM PIPE TESTING TECHNICIAN CBC WITHOUT DIFFERENTIAL STAT 05/19/2024 12:45 PM PIPE TESTING TECHNICIAN BLOOD GAS, ARTERIAL STAT 05/19/2024 12:45 PM PIPE TESTING TECHNICIAN PEP THERAPY Routine 05/19/2024 12:00 PM PIPE TESTING TECHNICIAN FL FLUOROSCOPY < 1 HOUR IP Routine 05/19/2024 11:22 AM PIPE TESTING TECHNICIAN POC BLOOD GAS AND CHEMISTRIES, ARTERIAL Routine 05/19/2024 10:38 AM PIPE TESTING TECHNICIAN NE AN PROCEDURE PLACEHOLDER Routine 05/19/2024 9:51 AM PIPE TESTING TECHNICIAN NE AN PROCEDURE PLACEHOLDER Routine 05/19/2024 9:46 AM PIPE TESTING TECHNICIAN NE AN ELECTIVE ENDOTRACHEAL AIRWAY Routine 05/19/2024 9:46 AM PIPE TESTING TECHNICIAN POC BLOOD GAS AND CHEMISTRIES, ARTERIAL Routine 05/19/2024 8:35 AM PIPE TESTING TECHNICIAN OPEN REDUCTION INTERNAL FIXATION ORBITAL FRACTURE. 05/19/2024 7:54 AM PIPE TESTING TECHNICIAN Fall, initial encounter Closed fracture of right orbital floor, initial encounter (HCC) Case Notes [id number]- Per Shavonne via email make first start - DMF [email or web address]- Per Dr. Lea via case msg - Outpatient, 2 hours- [id number]- Case msg sent to insurance agent for ctc and po destination- DMF POCT GLUCOSE DEVICE Routine 05/19/2024 7 :36 AM PIPE TESTING TECHNICIAN CRITICAL CARE Routine 05/19/2024 7:06 AM PIPE TESTING TECHNICIAN Fall, initial encounter PEP THERAPY Routine 05/19/2024 6:01 AM PIPE TESTING TECHNICIAN CRITICAL RESULT CALLBACK CHEMISTRY Timed 05/19/2024 5:18 AM PIPE TESTING TECHNICIAN TYPE AND SCREEN Timed 05/19/2024 5:18 AM PIPE TESTING TECHNICIAN BLOOD GAS, VENOUS Timed 05/19/2024 5:1 8 AM PIPE TESTING TECHNICIAN CRITICAL RESULT CALLBACK CHEMISTRY Timed 05/19/2024 3:41 AM PIPE TESTING TECHNICIAN BLOOD GAS, ARTERIAL Timed 05/19/2024 3 :41 AM PIPE TESTING TECHNICIAN XR CHEST 1 VIEW ED Urgent/IP Urgent 05/19/2024 3:20 AM PIPE TESTING TECHNICIAN CRITICAL CARE Routine 05/19/2024 3:00 AM PIPE TESTING TECHNICIAN POCT GLUCOSE DEVICE Routine 05/19/2024 2 :38 AM PIPE TESTING TECHNICIAN CTA/CTP RAPID STROKE Critical/Life-T hreatening 05/19/2024 2:26 AM PIPE TESTING TECHNICIAN POCT [id number] - ISTAT Routine 05/19/2024 1:27 AM PIPE TESTING TECHNICIAN ARTERIAL BLOOD GAS W/LACTATE Routine 05/19/2024 1:22 AM PIPE TESTING TECHNICIAN POCT GLUCOSE DEVICE Routine 05/19/2024 1 :15 AM PIPE TESTING TECHNICIAN EGFR Routine 05/19/2024 12:55 AM PIPE TESTING TECHNICIAN POTASSIUM, WHOLE BLOOD STAT 05/19/2024 12:55 AM PIPE TESTING TECHNICIAN BASIC METABOLIC PANEL Routine 05/19/2024 12:55 AM PIPE TESTING TECHNICIAN CBC WITHOUT DIFFERENTIAL Routine 05/19/2024 12:55 AM PIPE TESTING TECHNICIAN MAGNESIUM Routine 05/19/2024 12:55 AM PIPE TESTING TECHNICIAN PHOSPHORUS Routine 05/19/2024 12:55 AM PIPE TESTING TECHNICIAN PEP THERAPY Routine 05/19/2024 12:00 AM PIPE TESTING TECHNICIAN PEP THERAPY Routine 05/18/2024 6:00 PM PIPE TESTING TECHNICIAN NE AN PROCEDURE PLACEHOLDER Routine 05/18/2024 4:41 PM PIPE TESTING TECHNICIAN NE AN ELECTIVE ENDOTRACHEAL AIRWAY Routine 05/18/2024 4:41 PM PIPE TESTING TECHNICIAN NE AN PROCEDURE PLACEHOLDER Routine 05/18/2024 3:47 PM PIPE TESTING TECHNICIAN RELEASE CARPAL TUNNEL 05/18/2024 3:02 PM PIPE TESTING TECHNICIAN Other closed intra-articular fracture of distal end of left radius, initial encounter Case Notes 05/15 per [place] via case message, ctc is 90 min and post op is surg floor- RC OPEN REDUCTION INTERNAL FIXATION RADIUS - DISTAL 05/18/2024 3:02 PM PIPE TESTING TECHNICIAN Other closed intra-articular fracture of distal end of left radius, initial encounter Case Notes 05/15 per [place] via case message, ctc is 90 min and post op is surg floor- PEP THERAPY Routine 05/18/2024 12:00 PM PIPE TESTING TECHNICIAN PEP THERAPY Routine 05/18/2024 6:01 AM PIPE TESTING TECHNICIAN PEP THERAPY Routine 05/18/2024 12:00 AM PIPE TESTING TECHNICIAN EGFR Routine 05/17/2024 11:56 PM PIPE TESTING TECHNICIAN BASIC METABOLIC PANEL Routine 05/17/2024 11:56 PM PIPE TESTING TECHNICIAN CBC WITHOUT DIFFERENTIAL Routine 05/17/2024 11:56 PM PIPE TESTING TECHNICIAN MAGNESIUM Routine 05/17/2024 11:56 PM PIPE TESTING TECHNICIAN PHOSPHORUS Routine 05/17/2024 11:56 PM PIPE TESTING TECHNICIAN PEP THERAPY Routine 05/17/2024 6:00 PM PIPE TESTING TECHNICIAN PEP THERAPY Routine 05/17/2024 1:43 PM PIPE TESTING TECHNICIAN PEP THERAPY Routine 05/17/2024 1:43 PM PIPE TESTING TECHNICIAN PEP THERAPY Routine 05/17/2024 1:43 PM PIPE TESTING TECHNICIAN PEP THERAPY Routine 05/17/2024 1:43 PM PIPE TESTING TECHNICIAN EGFR Routine 05/16/2024 10:25 PM PIPE TESTING TECHNICIAN BASIC METABOLIC PANEL Routine 05/16/2024 10:25 PM PIPE TESTING TECHNICIAN CBC WITHOUT DIFFERENTIAL Routine 05/16/2024 10:25 PM PIPE TESTING TECHNICIAN MAGNESIUM Routine 05/16/2024 10:25 PM PIPE TESTING TECHNICIAN PHOSPHORUS Routine 05/16/2024 10:25 PM PIPE TESTING TECHNICIAN from Last 3 Months Results * TRANSTHORACIC ECHO (TTE) COMPLETE W DOPPLER/CF WO CONTRAST (08/06/2024 2:36 PM CDT) EF Mod BP 52 % CONS SCIMAGE Anatomical Region Laterality Modality Ultrasound 08/06/2024 1:53 PM CDT Narrative 08/06/2024 3:20 PM CDT [facility] [address], [address], [place] [address] P:[phone] P:[phone] Echocardiographic Report Patient Name: LORRAINE WALLER J [...] FINDINGS: Interpretation Site: Exam was interpreted at [facility]. Left Ventricle: Normal left ventricular systolic [...] fibrillation. Electronically Signed By: Dr. Nedra Burns [facility] 08/06/2024 3:19:51 PM CDT Procedure Note Nedra Burns MD - 08/06/2024 [facility] [address], [address], [place] [address] P:[phone] P:[phone] Echocardiographic Report Patient Name: LORRAINE WALLER J [...] FINDINGS: Interpretation Site: Exam was interpreted at [facility]. Left Ventricle: Normal left ventricular systolic [...] fibrillation. Electronically Signed By: Dr. Nedra Burns [facility] 08/06/2024 3:19:51 PM CDT [facility] Ludin Jimenez MD CV ECHO PROCEDURES Kylie [...] osteoarthritis. Electronically signed by: Harish Grigsby M.D. us Margy Walker MD PhD IMG XR PROCEDURES Final Result * FL Modified Barium Swallow W Video (05/27/2024 10:35 AM PIPE TESTING TECHNICIAN) Anatomical Region Laterality Modality Head and Neck N/A Radio Fluoroscop y 05/27/2024 11:0 1 AM PIPE TESTING TECHNICIAN Impressions 05/27/2024 11:14 AM PIPE TESTING TECHNICIAN The swallowing mechanism is normal; see above [...] Serrano M.D., Ph.D Narrative 05/27/2024 11:14 AM PIPE TESTING TECHNICIAN EXAMINATION: MODIFIED BARIUM SWALLOW HISTORY: Dysphagia. TECHNIQUE: [...] Murtaza Serrano M.D., Ph.D us Debby Gaona NP IMG FLUOROSCOPY PROCED URES Final Result * eGFR (05/26/2024 9:12 PM PIPE TESTING TECHNICIAN) eGFR 88 >=60 mL/min/1. 73 m2 Comment: [...] last reviewed 2021. Blood 05/26/2024 9:12 PM PIPE TESTING TECHNICIAN 05/26/2024 9:54 PM PIPE TESTING TECHNICIAN us Brissa Ko MD LAB BLOOD ORDERABLES Final Result [facility] Department of Laboratories [place], [place] [address] * (ABNORMAL) CBC without differential (05/26/2024 9:12 PM PIPE TESTING TECHNICIAN) [facility] WBC 8.8 3.8 - 9.9 K/cumm Hgb 9.7(L) 11.9 - 15.5 g/dL [facility] Hct 32.8(L) 35.6 - 45.5 % [facility] Plt 209 150 - 400 K/cumm [facility] MPV 11.9 9.1 - 12.3 fL [facility] RBC 3.36(L) 3.90 - 5.20 M/cumm [facility] MCV 97.6(H) 81.3 - 96.4 fL [facility] MCH 28.9 27.1 - 33.3 pg [facility] MCHC 29.6(L) 32.3 - 35.7 g/dL [facility] RDW CV 14.2 11.1 - 14.9 % [facility] RDW SD 50.4(H) 35.7 - 48.1 fL [facility] NRBC abs 0.00 0.00 - 0.01 K/cumm [facility] Blood 05/26/2024 9:12 PM PIPE TESTING TECHNICIAN 05/26/2024 9:54 PM PIPE TESTING TECHNICIAN Brissa Ko MD LAB BLOOD ORDERABLES Final Result [facility] Department [place] [place] [address] * Phosphorus (05/26/2024 9:12 PM PIPE TESTING TECHNICIAN) [facility] Phosphorus, pl 2.8 2.3 - 4.5 mg/dL Blood 05/26/2024 9:12 PM PIPE TESTING TECHNICIAN 05/26/2024 9:54 PM PIPE TESTING TECHNICIAN Brissa Ko MD LAB BLOOD ORDERABLES Final Result Performing Organization Address City/[facility] [address]/ZIP Co de Phone Number [facility] Department [place] [address] * Magnesium (05/26/2024 9:12 PM PIPE TESTING TECHNICIAN) Magnesium 2.0 1.4 - 2.5 mg/dL Blood 05/26/2024 9:12 PM PIPE TESTING TECHNICIAN 05/26/2024 9:54 PM PIPE TESTING TECHNICIAN Brissa Ko MD LAB BLOOD ORDERABLES Final Result [facility] Department [place] [address] * Basic metabolic panel (05/26/2024 9:12 PM PIPE TESTING TECHNICIAN) Pathologist [facility] Sodium 143 135 - 145 mmol/L Potassium, pl 4.2 3.3 - 4.9 mmol/L [facility] Chloride 102 97 - 110 mmol/L [facility] CO2 31 22 - 32 mmol/L [facility] Anion gap 10 2 - 15 mmol/L [facility] BUN 21 6 - 25 mg/dL [facility] Creatinine 0.71 0.60 - 1.10 mg/dL [facility] Glucose 165 70 - 199 mg/dL [facility] Comment: Interpretive Data Fasting glucose >/= [...] 2022. Calcium 9.3 8.5 - 10.3 mg/dL [facility] Blood 05/26/2024 9:12 PM PIPE TESTING TECHNICIAN 05/26/2024 9:54 PM PIPE TESTING TECHNICIAN us Brissa Ko MD LAB BLOOD ORDERABLES Final Result [facility] Department [place] [address] * eGFR (05/25/2024 9:54 PM PIPE TESTING TECHNICIAN) [facility] eGFR >90 >=60 mL/min/1. 73 m2 [...] last reviewed 2021. Blood 05/25/2024 9:54 PM PIPE TESTING TECHNICIAN 05/25/2024 10:27 PM PIPE TESTING TECHNICIAN Brissa Ko MD LAB BLOOD ORDERABLES Final Result [facility] Department [place] [address] * (ABNORMAL) CBC without differential (05/25/2024 9:54 PM PIPE TESTING TECHNICIAN) [facility] WBC 6.4 3.8 - 9.9 K/cumm Hgb 9.4(L) 11.9 - 15.5 g/dL [facility] Hct 31.2(L) 35.6 - 45.5 % [facility] Plt 170 150 - 400 K/cumm [facility] MPV 11.5 9.1 - 12.3 fL [facility] RBC 3.22(L) 3.90 - 5.20 M/cumm [facility] MCV 96.9(H) 81.3 - 96.4 fL [facility] MCH 29.2 27.1 - 33.3 pg [facility] MCHC 30.1(L) 32.3 - 35.7 g/dL [facility] RDW CV 14.3 11.1 - 14.9 % [facility] RDW SD 50.5(H) 35.7 - 48.1 fL [facility] NRBC abs 0.00 0.00 - 0.01 K/cumm [facility] Blood 05/25/2024 9:54 PM PIPE TESTING TECHNICIAN 05/25/2024 10:27 PM PIPE TESTING TECHNICIAN Brissa Ko MD LAB BLOOD ORDERABLES Final Result Performing Organization Address City/[facility] [address]/[facility] Co de Phone Number [facility] Department [place] [address] * Phosphorus (05/25/2024 9:54 PM PIPE TESTING TECHNICIAN) Phosphorus, pl 3.5 2.3 - 4.5 mg/dL Blood 05/25/2024 9:54 PM PIPE TESTING TECHNICIAN 05/25/2024 10:27 PM PIPE TESTING TECHNICIAN Brissa Ko MD LAB BLOOD ORDERABLES Final Result Performing Organization Address [facility] Co de Phone Number [facility] Department [place] [address] * Magnesium (05/25/2024 9:54 PM PIPE TESTING TECHNICIAN) Magnesium 2.1 1.4 - 2.5 mg/dL Blood 05/25/2024 9:54 PM PIPE TESTING TECHNICIAN 05/25/2024 10:27 PM PIPE TESTING TECHNICIAN Brissa Ko MD LAB BLOOD ORDERABLES Final Result Performing Organization Address City/[facility] [address] [facility] Co de Phone Number [facility] Department [place] [address] * (ABNORMAL) Basic metabolic panel (05/25/2024 9:54 PM PIPE TESTING TECHNICIAN) Pathologist [facility] Sodium 145 135 - 145 mmol/L Potassium, pl 4.4 3.3 - 4.9 mmol/L [facility] Chloride 105 97 - 110 mmol/L [facility] CO2 33(H) 22 - 32 mmol/L [facility] Anion gap 7 2 - 15 mmol/L [facility] BUN 13 6 - 25 mg/dL [facility] Creatinine 0.66 0.60 - 1.10 mg/dL [facility] Glucose 112 70 - 199 mg/dL [facility] Comment: Interpretive Data Fasting glucose >/= [...] 2022. Calcium 9.2 8.5 - 10.3 mg/dL [facility] Blood 05/25/2024 9:54 PM PIPE TESTING TECHNICIAN 05/25/2024 10:27 PM PIPE TESTING TECHNICIAN Brissa Ko MD LAB BLOOD ORDERABLES Final Result [facility] Department [place] [address] * ECG 12 lead (05/24/2024 10:55 PM PIPE TESTING TECHNICIAN) Pathologist [facility] Ventricular Rate EKG/Min 99 BPM [facility] QRS-Interval (MSEC) 86 ms [facility] QT-Interval (MSEC) 364 ms [facility] QTc 467 ms [facility] R [place] 91 degrees [facility] T [place] 160 degrees [facility] Diagnosis Atrial fibrillation/fl utter Rightward axis Low voltage QRS Cannot rule out Anterior infarct , age undetermined ST & T wave abnormality, consider lateral ischemia Abnormal ECG When compared with ECG of 23-MAY-2024 23:24, (unconfirmed) T wave inversion no longer evident in Anterior leads Confirmed by GABO PIEDRA M.D ([id number]) on 05/25/2024 3:55:52 PM [facility] 05/24/2024 10:5 5 PM PIPE TESTING TECHNICIAN 05/25/2024 3:55 PM PIPE TESTING TECHNICIAN us Brissa Ko MD ECG ORDERABLES Final Resul t [facility] * eGFR (05/24/2024 8:54 PM PIPE TESTING TECHNICIAN) eGFR 90 >=60 mL/min/1. 73 m2 Comment: [...] last reviewed 2021. Blood 05/24/2024 8:54 PM PIPE TESTING TECHNICIAN 05/24/2024 9:30 PM PIPE TESTING TECHNICIAN us Brissa Ko MD LAB BLOOD ORDERABLES Final Result [facility] Department [place] [address] * (ABNORMAL) CBC without differential (05/24/2024 8:54 PM PIPE TESTING TECHNICIAN) [facility] WBC 7.1 3.8 - 9.9 K/cumm Hgb 9.1(L) 11.9 - 15.5 g/dL [facility] Hct 29.6(L) 35.6 - 45.5 % [facility] Plt 162 150 - 400 K/cumm [facility] MPV 11.4 9.1 - 12.3 fL [facility] RBC 3.10(L) 3.90 - 5.20 M/cumm [facility] MCV 95.5 81.3 - 96.4 fL [facility] MCH 29.4 27.1 - 33.3 pg [facility] MCHC 30.7(L) 32.3 - 35.7 g/dL [facility] RDW CV 14.5 11.1 - 14.9 % [facility] RDW SD 50.9(H) 35.7 - 48.1 fL [facility] NRBC abs 0.00 0.00 - 0.01 K/cumm [facility] Blood 05/24/2024 8:54 PM PIPE TESTING TECHNICIAN 05/24/2024 9:31 PM PIPE TESTING TECHNICIAN us Brissa Ko MD LAB BLOOD ORDERABLES Final Result [facility] Department [place] [place] [address] * Phosphorus (05/24/2024 8:54 PM PIPE TESTING TECHNICIAN) [facility] Phosphorus, pl 2.5 2.3 - 4.5 mg/dL Blood 05/24/2024 8:54 PM PIPE TESTING TECHNICIAN 05/24/2024 9:30 PM PIPE TESTING TECHNICIAN Brissa Ko MD LAB BLOOD ORDERABLES Final Result Performing Organization Address City/[facility] [address]/ZIP Co de Phone Number [facility] Department [place] [address] * Magnesium (05/24/2024 8:54 PM PIPE TESTING TECHNICIAN) [facility] Magnesium 2.0 1.4 - 2.5 mg/dL Blood 05/24/2024 8:54 PM PIPE TESTING TECHNICIAN 05/24/2024 9:30 PM PIPE TESTING TECHNICIAN Brissa Ko MD LAB BLOOD ORDERABLES Final Result [facility] Department [place] [address] * (ABNORMAL) Basic metabolic panel (05/24/2024 8:54 PM PIPE TESTING TECHNICIAN) [facility] Sodium 146(H) 135 - 145 mmol/L Potassium, pl 4.8 3.3 - 4.9 mmol/L [facility] Chloride 108 97 - 110 mmol/L [facility] CO2 30 22 - 32 mmol/L [facility] Anion gap 8 2 - 15 mmol/L [facility] BUN 19 6 - 25 mg/dL [facility] Creatinine 0.70 0.60 - 1.10 mg/dL [facility] Glucose 104 70 - 199 mg/dL [facility] Comment: Interpretive Data Fasting glucose >/= [...] 2022. Calcium 9.1 8.5 - 10.3 mg/dL [facility] Blood 05/24/2024 8:54 PM PIPE TESTING TECHNICIAN 05/24/2024 9:30 PM PIPE TESTING TECHNICIAN Brissa Ko MD LAB BLOOD ORDERABLES Final Result Performing Organization Address City/[facility]/ZIP Co de Phone Number [facility] Department [place] [address] * ECG 12 lead (05/23/2024 11:24 PM PIPE TESTING TECHNICIAN) Ventricular Rate EKG/Min 88 BPM [facility] QRS-Interval (MSEC) 84 ms [facility] QT-Interval (MSEC) 364 ms [facility] QTc 440 ms [facility] R [place] 96 degrees [facility] T [place] 148 degrees [facility] Diagnosis Atrial fibrillation/flu tter Rightward axis Low voltage QRS ST & T wave abnormality, consider anterolateral ischemia Abnormal ECG When compared with ECG of 15-MAY-2024 07:03, ST now depressed in Lateral leads Nonspecific T wave abnormality, improved in Inferior leads T wave inversion now evident in Anterolateral leads QT has shortened Confirmed by GABO PIEDRA M.D ([id number]) on 05/26/2024 11:12:20 AM [facility] 05/23/2024 11:2 4 PM PIPE TESTING TECHNICIAN 05/26/2024 11:12 AM PIPE TESTING TECHNICIAN us Brissa Ko MD ECG ORDERABLES Final Resul t [facility] * eGFR (05/23/2024 8:13 PM PIPE TESTING TECHNICIAN) Pathologist [facility] eGFR 80 >=60 mL/min/1. 73 m2 Comment: [...] last reviewed 2021. Blood 05/23/2024 8:13 PM PIPE TESTING TECHNICIAN 05/23/2024 9:00 PM PIPE TESTING TECHNICIAN Brissa Ko MD LAB BLOOD ORDERABLES Final Result Performing Organization Address City/[facility] Co de Phone Number [facility] [place] [address] * (ABNORMAL) CBC without differential (05/23/2024 8:13 PM PIPE TESTING TECHNICIAN) [facility] WBC 7.3 3.8 - 9.9 K/cumm Hgb 8.7(L) 11.9 - 15.5 g/dL [facility] Hct 29.1(L) 35.6 - 45.5 % [facility] Plt 153 150 - 400 K/cumm [facility] MPV 11.5 9.1 - 12.3 fL [facility] RBC 3.00(L) 3.90 - 5.20 M/cumm [facility] MCV 97.0(H) 81.3 - 96.4 fL [facility] MCH 29.0 27.1 - 33.3 pg [facility] MCHC 29.9(L) 32.3 - 35.7 g/dL [facility] RDW CV 14.6 11.1 - 14.9 % [facility] RDW SD 52.3(H) 35.7 - 48.1 fL [facility] NRBC abs 0.00 0.00 - 0.01 K/cumm [facility] Blood 05/23/2024 8:13 PM PIPE TESTING TECHNICIAN 05/23/2024 9:03 PM PIPE TESTING TECHNICIAN Brissa Ko MD LAB BLOOD ORDERABLES Final Result Performing Organization Address City/[facility] [address]/ZIP Co de Phone Number [facility] [place] [address] * (ABNORMAL) Phosphorus (05/23/2024 8:13 PM PIPE TESTING TECHNICIAN) [facility] Phosphorus, pl 2.2(L) 2.3 - 4.5 mg/dL Blood 05/23/2024 8:13 PM PIPE TESTING TECHNICIAN 05/23/2024 9:00 PM PIPE TESTING TECHNICIAN Brissa Ko MD LAB BLOOD ORDERABLES Final Result Performing Organization Address City/[facility] [address]/ZIP Co de Phone Number [facility] Department [place] [address] * Magnesium (05/23/2024 8:13 PM PIPE TESTING TECHNICIAN) [facility] Magnesium 2.0 1.4 - 2.5 mg/dL Blood 05/23/2024 8:13 PM PIPE TESTING TECHNICIAN 05/23/2024 9:00 PM PIPE TESTING TECHNICIAN Brissa Ko MD LAB BLOOD ORDERABLES Final Result Performing Organization Address [facility] de Phone Number [facility] [place] [address] * Basic metabolic panel (05/23/2024 8:13 PM PIPE TESTING TECHNICIAN) [facility] Sodium 145 135 - 145 mmol/L Potassium, pl 4.2 3.3 - 4.9 mmol/L [facility] Chloride 106 97 - 110 mmol/L [facility] CO2 32 22 - 32 mmol/L [facility] Anion gap 7 2 - 15 mmol/L [facility] BUN 20 6 - 25 mg/dL [facility] Creatinine 0.77 0.60 - 1.10 mg/dL [facility] Glucose 148 70 - 199 mg/dL [facility] Comment: Interpretive Data Fasting glucose >/= [...] 2022. Calcium 8.6 8.5 - 10.3 mg/dL [facility] Blood 05/23/2024 8:13 PM PIPE TESTING TECHNICIAN 05/23/2024 9:00 PM PIPE TESTING TECHNICIAN Brissa Ko MD LAB BLOOD ORDERABLES Final Result [facility] Department [place] [address] * Critical Care (05/23/2024 6:40 AM PIPE TESTING TECHNICIAN) Narrative Kelvin Delgado MD - 05/23/2024 6:40 AM PIPE TESTING TECHNICIAN Kelvin Delgado MD 05/23/2024 5:18 PM Critical [...] plan with the patient's team and other medical/application consultant staff. This time was in addition to and separate from care provided by other practitioners on this day of service. I spent time reviewing and interpreting data from bedside monitors, laboratory results, and imaging and I spent time documenting in the medical record us Olga Meehan ROBOTICS ENGINEER IN CLINIC/BEDSIDE O RDERABLES Final Result * POCT glucose (05/22/2024 11:10 PM PIPE TESTING TECHNICIAN) Glucose, POC 98 70 - 199 mg/dL Blood 05/22/2024 11:1 0 PM PIPE TESTING TECHNICIAN 05/22/2024 11:10 PM PIPE TESTING TECHNICIAN Brissa Ko MD LAB POCT ORDERABLES - DEVIC E Final Result Performing Organization Address [facility] Co de Phone Number [facility] Department [place] [address] * eGFR (05/22/2024 8:23 PM PIPE TESTING TECHNICIAN) Pathologist [facility] eGFR 71 >=60 mL/min/1. 73 m2 Comment: [...] last reviewed 2021. Blood 05/22/2024 8:23 PM PIPE TESTING TECHNICIAN 05/22/2024 8:36 PM PIPE TESTING TECHNICIAN Brissa Ko MD LAB BLOOD ORDERABLES Final Result Performing Organization Address [facility] de Phone Number [facility] Department [place] [address] * (ABNORMAL) CBC without differential (05/22/2024 8:23 PM PIPE TESTING TECHNICIAN) [facility] WBC 7.0 3.8 - 9.9 K/cumm Hgb 8.9(L) 11.9 - 15.5 g/dL [facility] Hct 29.2(L) 35.6 - 45.5 % [facility] Plt 158 150 - 400 K/cumm [facility] MPV 11.0 9.1 - 12.3 fL [facility] RBC 3.03(L) 3.90 - 5.20 M/cumm [facility] MCV 96.4 81.3 - 96.4 fL [facility] MCH 29.4 27.1 - 33.3 pg [facility] MCHC 30.5(L) 32.3 - 35.7 g/dL [facility] RDW CV 14.8 11.1 - 14.9 % [facility] RDW SD 52.5(H) 35.7 - 48.1 fL [facility] NRBC abs 0.00 0.00 - 0.01 K/cumm [facility] Blood 05/22/2024 8:23 PM PIPE TESTING TECHNICIAN 05/22/2024 8:36 PM PIPE TESTING TECHNICIAN Brissa Ko MD LAB BLOOD ORDERABLES Final Result Performing Organization Address [facility] de Phone Number [facility] Department [place] [address] * Phosphorus (05/22/2024 8:23 PM PIPE TESTING TECHNICIAN) Phosphorus, pl 3.0 2.3 - 4.5 mg/dL Blood 05/22/2024 8:23 PM PIPE TESTING TECHNICIAN 05/22/2024 8:36 PM PIPE TESTING TECHNICIAN Brissa Ko MD LAB BLOOD ORDERABLES Final Result Performing Organization Address City/[facility] [address]/[facility] de Phone Number [facility] Department [place] [address] * Magnesium (05/22/2024 8:23 PM PIPE TESTING TECHNICIAN) Magnesium 2.2 1.4 - 2.5 mg/dL Blood 05/22/2024 8:23 PM PIPE TESTING TECHNICIAN 05/22/2024 8:36 PM PIPE TESTING TECHNICIAN Brissa Ko MD LAB BLOOD ORDERABLES Final Result Performing Organization Address City/[facility] [address]/[facility] Co de Phone Number [facility] Department [place] [address] * (ABNORMAL) Basic metabolic panel (05/22/2024 8:23 PM PIPE TESTING TECHNICIAN) Sodium 146(H) 135 - 145 mmol/L Potassium, pl 4.1 3.3 - 4.9 mmol/L [facility] Chloride 106 97 - 110 mmol/L [facility] CO2 33(H) 22 - 32 mmol/L [facility] Anion gap 7 2 - 15 mmol/L [facility] BUN 26(H) 6 - 25 mg/dL [facility] Creatinine 0.85 0.60 - 1.10 mg/dL [facility] Glucose 122 70 - 199 mg/dL [facility] Comment: Interpretive Data Fasting glucose >/= [...] 2022. Calcium 8.2(L) 8.5 - 10.3 mg/dL [facility] Blood 05/22/2024 8:23 PM PIPE TESTING TECHNICIAN 05/22/2024 8:36 PM PIPE TESTING TECHNICIAN us Brissa Ko MD LAB BLOOD ORDERABLES Final Result [facility] Department [place] [address] * Critical Care (05/22/2024 7:32 PM PIPE TESTING TECHNICIAN) Narrative Murtaza Garcia MD - 05/22/2024 7:32 PM PIPE TESTING TECHNICIAN Murtaza Garcia MD 05/23/2024 6:19 AM Critical [...] plan with the patient's team and other medical/application consultant staff. This time was in addition to and separate from care provided by other practitioners on this day of service. us Preston HINOJOSA IN CLINIC/BEDSI DE ORDERABLES Final Result * POCT glucose (05/22/2024 6:58 PM PIPE TESTING TECHNICIAN) Glucose, POC 115 70 - 199 mg/dL Blood 05/22/2024 6:58 PM PIPE TESTING TECHNICIAN 05/22/2024 6:58 PM PIPE TESTING TECHNICIAN Brissa Ko MD LAB POCT ORDERABLES - DEVIC E Final Result Performing Organization Address City/[facility] [address]/ZIP Co de Phone Number [facility] Department [place] [place] [address] * (ABNORMAL) Iron profile w/ IBC (05/22/2024 3:44 PM PIPE TESTING TECHNICIAN) [facility] Iron 29(L) 35 - 145 mcg/dL TIBC 258 250 - 400 mcg/dL [facility] Transferrin saturation 11(L) 20 - 50 % [facility] Blood 05/22/2024 3:44 PM PIPE TESTING TECHNICIAN 05/22/2024 4:15 PM PIPE TESTING TECHNICIAN Earnestine Kelly MD LAB BLOOD ORDERABLES Kylie l Result [facility] Department [place] [address] * POCT glucose (05/22/2024 3:03 PM PIPE TESTING TECHNICIAN) Glucose, POC 111 70 - 199 mg/dL Blood 05/22/2024 3:03 PM PIPE TESTING TECHNICIAN 05/22/2024 3:03 PM PIPE TESTING TECHNICIAN Brissa Ko MD LAB POCT ORDERABLES - DEVIC E Final Result Performing Organization Address [facility] [address] [facility] Co de Phone Number [facility] [place] [address] * POCT glucose (05/22/2024 10:55 AM PIPE TESTING TECHNICIAN) Glucose, POC 130 70 - 199 mg/dL Blood 05/22/2024 10:5 5 AM PIPE TESTING TECHNICIAN 05/22/2024 10:55 AM PIPE TESTING TECHNICIAN us Brissa Ko MD LAB POCT ORDERABLES - DEVIC E Final Result Performing Organization Address City/[facility] [address]/[facility] [place] [address] * POCT glucose (05/22/2024 7:01 AM PIPE TESTING TECHNICIAN) Glucose, POC 128 70 - 199 mg/dL Blood 05/22/2024 7:01 AM PIPE TESTING TECHNICIAN 05/22/2024 7:01 AM PIPE TESTING TECHNICIAN Brissa Ko MD LAB POCT ORDERABLES - DEVIC E Final Result Performing Organization Address City/[facility] [address]/[facility] [place] [address] * Critical Care (05/22/2024 6:44 AM PIPE TESTING TECHNICIAN) Narrative Earnestine Kelly MD - 05/22/2024 6:44 AM PIPE TESTING TECHNICIAN Earnestine Kelly MD 05/22/2024 6:05 PM Critical [...] plan with the ICU team and other medical/application consultant staff, making frequent assessments and decisions [...] (ABNORMAL) Blood gas, arterial (05/22/2024 4:31 AM PIPE TESTING TECHNICIAN) pH, Art 7.44 7.35 - 7.45 PCO2, Arterial 49(H) 35 - 45 mmHg [facility] PO2, Arterial 136(H) 83 - 108 mmHg [facility] HCO3 Art (Calculated) 34(H) 20 - 30 mmol/L [facility] BE, art 8 mmol/L [facility] Comment: Interpretive Data No Reference Range Established Current Interpretive Data was last revised on 2017 O2 Sat Art (Measured) 100(H) 90 - 95 % [facility] Blood 05/22/2024 4:31 AM PIPE TESTING TECHNICIAN 05/22/2024 4:37 AM PIPE TESTING TECHNICIAN Lynsey Otoole ROBOTICS ENGINEER LAB BLOOD ORDER TEDDY Final Result [facility] [place] [address] * POCT glucose (05/22/2024 3:02 AM PIPE TESTING TECHNICIAN) Glucose, POC 149 70 - 199 mg/dL Blood 05/22/2024 3:02 AM PIPE TESTING TECHNICIAN 05/22/2024 3:02 AM PIPE TESTING TECHNICIAN Brissa Ko MD LAB POCT ORDERABLES - DEVIC E Final Result Performing Organization Address [facility] [address]/[facility] Co de Phone Number [facility] Department [place] [address] * POCT glucose (05/21/2024 10:54 PM PIPE TESTING TECHNICIAN) Glucose, POC 122 70 - 199 mg/dL Blood 05/21/2024 10:5 4 PM PIPE TESTING TECHNICIAN 05/21/2024 10:54 PM PIPE TESTING TECHNICIAN Brissa Ko MD LAB POCT ORDERABLES - DEVIC E Final Result Performing Organization Address [facility] [address]/[facility] de Phone Number [facility] [place] [address] * eGFR (05/21/2024 8:54 PM PIPE TESTING TECHNICIAN) eGFR 71 >=60 mL/min/1. 73 m2 Comment: [...] last reviewed 2021. Blood 05/21/2024 8:54 PM PIPE TESTING TECHNICIAN 05/21/2024 9:16 PM PIPE TESTING TECHNICIAN Brissa Ko MD LAB BLOOD ORDERABLES Final Result Performing Organization Address [facility] [address]/[facility] Co de Phone Number [facility] [place] [address] * (ABNORMAL) CBC without differential (05/21/2024 8:54 PM PIPE TESTING TECHNICIAN) [facility] WBC 6.7 3.8 - 9.9 K/cumm Hgb 9.5(L) 11.9 - 15.5 g/dL [facility] Hct 29.7(L) 35.6 - 45.5 % [facility] Plt 145(L) 150 - 400 K/cumm [facility] MPV 10.9 9.1 - 12.3 fL [facility] RBC 3.14(L) 3.90 - 5.20 M/cumm [facility] MCV 94.6 81.3 - 96.4 fL [facility] MCH 30.3 27.1 - 33.3 pg [facility] MCHC 32.0(L) 32.3 - 35.7 g/dL [facility] RDW CV 14.8 11.1 - 14.9 % [facility] RDW SD 51.6(H) 35.7 - 48.1 fL [facility] NRBC abs 0.00 0.00 - 0.01 K/cumm [facility] Blood 05/21/2024 8:54 PM PIPE TESTING TECHNICIAN 05/21/2024 9:16 PM PIPE TESTING TECHNICIAN Brissa Ko MD LAB BLOOD ORDERABLES Final Result Performing Organization Address City/[facility] [address]/[facility] Co de Phone Number [facility] [place] [address] * Phosphorus (05/21/2024 8:54 PM PIPE TESTING TECHNICIAN) Pathologist [facility] Phosphorus, pl 2.5 2.3 - 4.5 mg/dL Blood 05/21/2024 8:54 PM PIPE TESTING TECHNICIAN 05/21/2024 9:16 PM PIPE TESTING TECHNICIAN Brissa Ko MD LAB BLOOD ORDERABLES Final Result Performing Organization Address [facility] [address]/[facility] de Phone Number [facility] [place] [address] * Magnesium (05/21/2024 8:54 PM PIPE TESTING TECHNICIAN) [facility] Magnesium 1.9 1.4 - 2.5 mg/dL Blood 05/21/2024 8:54 PM PIPE TESTING TECHNICIAN 05/21/2024 9:16 PM PIPE TESTING TECHNICIAN Brissa Ko MD LAB BLOOD ORDERABLES Final Result Performing Organization Address [facility] de Phone Number [facility] [place] [address] * (ABNORMAL) Blood gas, arterial (05/21/2024 8:54 PM PIPE TESTING TECHNICIAN) [facility] pH, Art 7.45 7.35 - 7.45 PCO2, Arterial 52(H) 35 - 45 mmHg [facility] PO2, Arterial 63(L) 83 - 108 mmHg [facility] HCO3 Art (Calculated) 37(H) 20 - 30 mmol/L [facility] BE, art 10 mmol/L [facility] Comment: Interpretive Data No Reference Range Established Current Interpretive Data was last revised on 2017 O2 Sat Art (Measured) 92 90 - 95 % [facility] Blood 05/21/2024 8:54 PM PIPE TESTING TECHNICIAN 05/21/2024 9:09 PM PIPE TESTING TECHNICIAN Brissa Ko MD LAB BLOOD ORDERABLES Final Result Performing Organization Address [facility] [address]/[facility] de Phone Number [facility] [place] [address] * (ABNORMAL) Basic metabolic panel (05/21/2024 8:54 PM PIPE TESTING TECHNICIAN) Sodium 143 135 - 145 mmol/L Potassium, pl 3.5 3.3 - 4.9 mmol/L [facility] Chloride 101 97 - 110 mmol/L [facility] CO2 35(H) 22 - 32 mmol/L [facility] Anion gap 7 2 - 15 mmol/L [facility] BUN 19 6 - 25 mg/dL [facility] Creatinine 0.85 0.60 - 1.10 mg/dL [facility] Glucose 125 70 - 199 mg/dL [facility] Comment: Interpretive Data Fasting glucose >/= [...] 2022. Calcium 8.7 8.5 - 10.3 mg/dL [facility] Blood 05/21/2024 8:54 PM PIPE TESTING TECHNICIAN 05/21/2024 9:16 PM PIPE TESTING TECHNICIAN Brissa Ko MD LAB BLOOD ORDERABLES Final Result [facility] Department [place] [address] * XR Chest 1 View (05/21/2024 8:36 PM PIPE TESTING TECHNICIAN) Anatomical Region Laterality Modality Body, Chest N/A Computed Radiogr aphy 05/22/2024 9:45 AM PIPE TESTING TECHNICIAN Impressions 05/22/2024 10:11 AM PIPE TESTING TECHNICIAN Comparison is made to radiograph dated 05/20/2024. [...] David Hogan M.D. Narrative 05/22/2024 10:11 AM PIPE TESTING TECHNICIAN EXAMINATION: 1 view chest radiograph Procedure Note [...] Result * Critical Care (05/21/2024 8:00 PM PIPE TESTING TECHNICIAN) Narrative Renay Weber MD - 05/21/2024 8:00 PM PIPE TESTING TECHNICIAN Renay Weber MD 05/28/2024 11:57 PM Critical [...] plan with the ICU team and other medical/application consultant staff, making frequent assessments and decisions [...] in the medical record us Lynsey Otoole ROBOTICS ENGINEER IN CLINIC/BEDSI DE ORDERABLES Final Result * POCT glucose (05/21/2024 7:43 PM PIPE TESTING TECHNICIAN) Glucose, POC 150 70 - 199 mg/dL Blood 05/21/2024 7:43 PM PIPE TESTING TECHNICIAN 05/21/2024 7:43 PM PIPE TESTING TECHNICIAN us Brissa Ko MD LAB POCT ORDERABLES - DEVIC E Final Result [facility] Department [place] [address] * (ABNORMAL) Blood gas, arterial (05/21/2024 3:11 PM PIPE TESTING TECHNICIAN) pH, Art 7.44 7.35 - 7.45 PCO2, Arterial 50(H) 35 - 45 mmHg [facility] PO2, Arterial 157(H) 83 - 108 mmHg [facility] HCO3 Art (Calculated) 35(H) 20 - 30 mmol/L [facility] BE, art 8 mmol/L [facility] Comment: Interpretive Data No Reference Range Established Current Interpretive Data was last revised on 2017 O2 Sat Art (Measured) 100(H) 90 - 95 % [facility] Blood 05/21/2024 3:11 PM PIPE TESTING TECHNICIAN 05/21/2024 3:16 PM PIPE TESTING TECHNICIAN Sebastian HINOJOSA LAB BLOOD ORDERABLES Fi nal Result Performing Organization Address [facility] [address] [facility] de Phone Number [facility] [place] [address] * POCT glucose (05/21/2024 3:10 PM PIPE TESTING TECHNICIAN) Glucose, POC 135 70 - 199 mg/dL Blood 05/21/2024 3:10 PM PIPE TESTING TECHNICIAN 05/21/2024 3:10 PM PIPE TESTING TECHNICIAN Brissa Ko MD LAB POCT ORDERABLES - DEVIC E Final Result Performing Organization Address [facility] Phone Number [facility] [place] [address] * POCT glucose (05/21/2024 11:14 AM PIPE TESTING TECHNICIAN) Glucose, POC 122 70 - 199 mg/dL Blood 05/21/2024 11:1 4 AM PIPE TESTING TECHNICIAN 05/21/2024 11:14 AM PIPE TESTING TECHNICIAN Brissa Ko MD LAB POCT ORDERABLES - DEVIC E Final Result Performing Organization Address [facility] Phone Number [facility] [place] [address] * (ABNORMAL) Thyroid Function [place] (05/21/2024 9:07 AM PIPE TESTING TECHNICIAN) TSH 5.20(H) 0.30 - 4.20 mcIUnit/mL Blood 05/21/2024 9:07 AM PIPE TESTING TECHNICIAN 05/21/2024 9:28 AM PIPE TESTING TECHNICIAN Sebastian HINOJOSA LAB BLOOD ORDERABLES Fi nal Result Performing Organization Address [facility] [address]/ZIP Co de Phone Number [facility] Department [place] [address] * Triglycerides (05/21/2024 9:07 AM PIPE TESTING TECHNICIAN) Triglycerides 139 <=149 mg/dL Comment: Interpretive Data [...] revised on 2017. Blood 05/21/2024 9:07 AM PIPE TESTING TECHNICIAN 05/21/2024 9:28 AM PIPE TESTING TECHNICIAN Narrative [facility] 05/21/2024 9:56 AM PIPE TESTING TECHNICIAN While on propofol infusion. us Preston HINOJOSA LAB BLOOD ORDER TEDDY Final Result Performing Organization Address [facility] de Phone Number [facility] Department [place] [address] * T4, free (05/21/2024 9:07 AM PIPE TESTING TECHNICIAN) Free T4 1.35 0.90 - 1.70 ng/dL Blood 05/21/2024 9:07 AM PIPE TESTING TECHNICIAN 05/21/2024 9:28 AM PIPE TESTING TECHNICIAN Narrative [facility] 05/21/2024 10:34 AM PIPE TESTING TECHNICIAN This test was reflexed from a TSH result. us Sebastian HINOJOSA LAB BLOOD ORDERABLES Ed ited Result - Final Performing Organization Address [facility] [address]/[facility] Co de Phone Number [facility] Department [place] [address] * Ammonia (05/21/2024 9:07 AM PIPE TESTING TECHNICIAN) Ammonia 27 <=50 mcmol/L Blood 05/21/2024 9:07 AM PIPE TESTING TECHNICIAN 05/21/2024 9:29 AM PIPE TESTING TECHNICIAN us Sebastian HINOJOSA LAB BLOOD ORDERABLES Fi nal Result Performing Organization Address [facility] [address]/[facility] [place] [address] * POCT glucose (05/21/2024 7:24 AM PIPE TESTING TECHNICIAN) Glucose, POC 138 70 - 199 mg/dL Blood 05/21/2024 7:24 AM PIPE TESTING TECHNICIAN 05/21/2024 7:24 AM PIPE TESTING TECHNICIAN us Brissa Ko MD LAB POCT ORDERABLES - DEVIC E Final Result Performing Organization Address [facility] [address]/[facility] de Phone Number [facility] [address] * Critical Care (05/21/2024 7:02 AM PIPE TESTING TECHNICIAN) Narrative Earnestine Kelly MD - 05/21/2024 7:02 AM PIPE TESTING TECHNICIAN Earnestine Kelly MD 05/22/2024 3:03 PM Critical [...] plan with the ICU team and other medical/application consultant staff, making frequent assessments and decisions [...] Result * POCT glucose (05/21/2024 3:47 AM PIPE TESTING TECHNICIAN) Glucose, POC 161 70 - 199 mg/dL Blood 05/21/2024 3:47 AM PIPE TESTING TECHNICIAN 05/21/2024 3:47 AM PIPE TESTING TECHNICIAN us Brissa Ko MD LAB POCT ORDERABLES - DEVIC E Final Result [facility] [place] [address] * XR Chest 1 View (05/21/2024 12:12 AM PIPE TESTING TECHNICIAN) Anatomical Region Laterality Modality Body, Chest N/A Computed Radiogr aphy 05/21/2024 8:02 AM PIPE TESTING TECHNICIAN Impressions 05/21/2024 8:02 AM PIPE TESTING TECHNICIAN Comparison is made to radiograph of 05/20/2024 [...] Nestor Seth M.D. Narrative 05/21/2024 8:02 AM PIPE TESTING TECHNICIAN EXAMINATION: 1 view chest radiograph Procedure Note [...] underpenetration. Electronically signed by: Nestor Seth M.D. us Yesenia HINOJOSA IMG XR PROCEDURES F inal Result * POCT glucose (05/20/2024 11:29 PM PIPE TESTING TECHNICIAN) Glucose, POC 140 70 - 199 mg/dL Blood 05/20/2024 11:2 9 PM PIPE TESTING TECHNICIAN 05/20/2024 11:29 PM PIPE TESTING TECHNICIAN us Brissa Ko MD LAB POCT ORDERABLES - DEVIC E Final Result [facility] Department [place] [address] * XR Abdomen 1 View AP (05/20/2024 8:05 PM PIPE TESTING TECHNICIAN) Anatomical Region Laterality Modality Body, Abdomen N/A Computed Radiogr aphy 05/21/2024 8:36 AM PIPE TESTING TECHNICIAN Impressions 05/21/2024 8:36 AM PIPE TESTING TECHNICIAN An enteric tube tip terminates in the distal gastric body, with the stylette in place. Relative paucity of bowel gas in the imaged upper abdomen. Dictated by: Kvng Pan MD The radiology attending physician has personally reviewed this study, and had reviewed and/or edited this written report and agrees with it. Electronically signed by: Renetta Farr M.D. Narrative 05/21/2024 8:36 AM PIPE TESTING TECHNICIAN EXAMINATION: Abdomen, one view. HISTORY: Check tube [...] inal Result * eGFR (05/20/2024 7:44 PM PIPE TESTING TECHNICIAN) eGFR 75 >=60 mL/min/1. 73 m2 Comment: [...] last reviewed 2021. Blood 05/20/2024 7:44 PM PIPE TESTING TECHNICIAN 05/20/2024 8:03 PM PIPE TESTING TECHNICIAN us Brissa Ko MD LAB BLOOD ORDERABLES Final Result [facility] Department [place] [address] * (ABNORMAL) CBC without differential (05/20/2024 7:44 PM PIPE TESTING TECHNICIAN) [facility] WBC 7.1 3.8 - 9.9 K/cumm Hgb 9.9(L) 11.9 - 15.5 g/dL [facility] Hct 31.5(L) 35.6 - 45.5 % [facility] Plt 157 150 - 400 K/cumm [facility] MPV 10.6 9.1 - 12.3 fL [facility] RBC 3.40(L) 3.90 - 5.20 M/cumm [facility] MCV 92.6 81.3 - 96.4 fL [facility] MCH 29.1 27.1 - 33.3 pg [facility] MCHC 31.4(L) 32.3 - 35.7 g/dL [facility] RDW CV 14.7 11.1 - 14.9 % [facility] RDW SD 50.2(H) 35.7 - 48.1 fL [facility] NRBC abs 0.00 0.00 - 0.01 K/cumm [facility] Blood 05/20/2024 7:44 PM PIPE TESTING TECHNICIAN 05/20/2024 7:56 PM PIPE TESTING TECHNICIAN Brissa Ko MD LAB BLOOD ORDERABLES Final Result Performing Organization Address City/[facility] [address]/ZIP Co de Phone Number [facility] Department [place] [address] * Phosphorus (05/20/2024 7:44 PM PIPE TESTING TECHNICIAN) [facility] Phosphorus, pl 3.9 2.3 - 4.5 mg/dL Blood 05/20/2024 7:44 PM PIPE TESTING TECHNICIAN 05/20/2024 7:56 PM PIPE TESTING TECHNICIAN Brissa Ko MD LAB BLOOD ORDERABLES Final Result [facility] Department [place] [address] * Magnesium (05/20/2024 7:44 PM PIPE TESTING TECHNICIAN) Pathologist [facility] Magnesium 2.3 1.4 - 2.5 mg/dL Blood 05/20/2024 7:44 PM PIPE TESTING TECHNICIAN 05/20/2024 7:56 PM PIPE TESTING TECHNICIAN Brissa Ko MD LAB BLOOD ORDERABLES Final Result [facility] [place] [address] * (ABNORMAL) Basic metabolic panel (05/20/2024 7:44 PM PIPE TESTING TECHNICIAN) [facility] Sodium 142 135 - 145 mmol/L Potassium, pl 4.0 3.3 - 4.9 mmol/L [facility] Chloride 98 97 - 110 mmol/L [facility] CO2 36(H) 22 - 32 mmol/L [facility] Anion gap 8 2 - 15 mmol/L [facility] BUN 18 6 - 25 mg/dL [facility] Creatinine 0.81 0.60 - 1.10 mg/dL [facility] Glucose 139 70 - 199 mg/dL [facility] Comment: Interpretive Data Fasting glucose >/= [...] 2022. Calcium 8.7 8.5 - 10.3 mg/dL [facility] Blood 05/20/2024 7:44 PM PIPE TESTING TECHNICIAN 05/20/2024 7:56 PM PIPE TESTING TECHNICIAN us Brissa Ko MD LAB BLOOD ORDERABLES Final Result Performing Organization Address [facility] [address]/[facility] Co de Phone Number [facility] FRYE [facility]ev[facility] [place] [address] * POCT glucose (05/20/2024 7:36 PM PIPE TESTING TECHNICIAN) Glucose, POC 149 70 - 199 mg/dL Blood 05/20/2024 7:36 PM PIPE TESTING TECHNICIAN 05/20/2024 7:36 PM PIPE TESTING TECHNICIAN Brissa Ko MD LAB POCT ORDERABLES - DEVIC E Final Result Performing Organization Address [facility] [address]/[facility] Co de Phone Number [facility] Department [place] [address] * Critical Care (05/20/2024 6:22 PM PIPE TESTING TECHNICIAN) Narrative Renay Weber MD - 05/20/2024 6:22 PM PIPE TESTING TECHNICIAN Renay Weber MD 05/28/2024 11:45 PM Critical [...] plan with the ICU team and other medical/application consultant staff, making frequent assessments and decisions [...] Result * POCT glucose (05/20/2024 3:33 PM PIPE TESTING TECHNICIAN) Glucose, POC 156 70 - 199 mg/dL Blood 05/20/2024 3:33 PM PIPE TESTING TECHNICIAN 05/20/2024 3:33 PM PIPE TESTING TECHNICIAN us Brissa Ko MD LAB POCT ORDERABLES - DEVIC E Final Result Performing Organization Address City/[facility] [address]/[facility] [place] [address] * POCT glucose (05/20/2024 11:36 AM PIPE TESTING TECHNICIAN) Glucose, POC 166 70 - 199 mg/dL Blood 05/20/2024 11:3 6 AM PIPE TESTING TECHNICIAN 05/20/2024 11:36 AM PIPE TESTING TECHNICIAN Brissa Ko MD LAB POCT ORDERABLES - DEVIC E Final Result Performing Organization Address City/[facility] [address]/[facility] Co de Phone Number [facility] [place] [address] * POCT glucose (05/20/2024 7:28 AM PIPE TESTING TECHNICIAN) Glucose, POC 167 70 - 199 mg/dL Blood 05/20/2024 7:28 AM PIPE TESTING TECHNICIAN 05/20/2024 7:28 AM PIPE TESTING TECHNICIAN Brissa Ko MD LAB POCT ORDERABLES - DEVIC E Final Result Performing Organization Address City/[facility] [address]/[facility] [place] [address] * Critical Care (05/20/2024 7:27 AM PIPE TESTING TECHNICIAN) Narrative Earnestine Kelly MD - 05/20/2024 7:27 AM PIPE TESTING TECHNICIAN Earnestine Kelly MD 05/22/2024 3:02 PM Critical [...] plan with the ICU team and other medical/application consultant staff, making frequent assessments and decisions [...] XR Chest 1 View (05/20/2024 6:25 AM PIPE TESTING TECHNICIAN) Anatomical Region Laterality Modality Body, Chest N/A Computed Radiogr aphy 05/20/2024 9:29 AM PIPE TESTING TECHNICIAN Impressions 05/20/2024 9:29 AM PIPE TESTING TECHNICIAN The current study is compared with the prior radiograph dated 05/19/2024. The endotracheal tube tip is 1.5 cm above the janis. Stable small left pleural effusion with underlying left lower lobe collapse. Small right pleural effusion with mild atelectasis is unchanged. Stable mild pulmonary edema. No pneumothorax. Stable cardiomegaly. Electronically signed by: Matt Willis MD, PHD Narrative 05/20/2024 9:29 AM PIPE TESTING TECHNICIAN EXAMINATION: 1 view chest radiograph Procedure Note [...] Result * POCT glucose (05/20/2024 3:47 AM PIPE TESTING TECHNICIAN) Glucose, POC 157 70 - 199 mg/dL Blood 05/20/2024 3:47 AM PIPE TESTING TECHNICIAN 05/20/2024 3:47 AM PIPE TESTING TECHNICIAN Brissa Ko MD LAB POCT ORDERABLES - DEVIC E Final Result Performing Organization Address [facility] de Phone Number [facility] Department [place] [address] * (ABNORMAL) Blood gas, arterial (05/20/2024 3:01 AM PIPE TESTING TECHNICIAN) Pathologist [facility] pH, Art 7.48(H) 7.35 - 7.45 PCO2, Arterial 48(H) 35 - 45 mmHg [facility] PO2, Arterial 100 83 - 108 mmHg [facility] HCO3 Art (Calculated) 37(H) 20 - 30 mmol/L [facility] BE, art 11 mmol/L [facility] Comment: Interpretive Data No Reference Range Established Current Interpretive Data was last revised on 2017 O2 Sat Art (Measured) 98(H) 90 - 95 % [facility] Blood 05/20/2024 3:01 AM PIPE TESTING TECHNICIAN 05/20/2024 3:12 AM PIPE TESTING TECHNICIAN Result [facility] Yesenia HINOJOSA LAB BLOOD ORDERABLE S Final Result Performing Organization Address [facility] [address]/[facility] de Phone Number [facility] [place] [address] * POCT glucose (05/19/2024 11:34 PM PIPE TESTING TECHNICIAN) Pathologist [facility] Glucose, POC 152 70 - 199 mg/dL Blood 05/19/2024 11:3 4 PM PIPE TESTING TECHNICIAN 05/19/2024 11:34 PM PIPE TESTING TECHNICIAN Brissa Ko MD LAB POCT ORDERABLES - [place] [address] * eGFR (05/19/2024 9:35 PM PIPE TESTING TECHNICIAN) [facility] eGFR 79 >=60 mL/min/1. 73 m2 [...] last reviewed 2021. Blood 05/19/2024 9:35 PM PIPE TESTING TECHNICIAN 05/19/2024 9:49 PM PIPE TESTING TECHNICIAN us Brissa Ko MD LAB BLOOD ORDERABLES Final Result [facility] [place] [address] * (ABNORMAL) CBC without differential (05/19/2024 9:35 PM PIPE TESTING TECHNICIAN) Pathologist [facility] WBC 5.7 3.8 - 9.9 K/cumm Hgb 9.4(L) 11.9 - 15.5 g/dL [facility] Hct 30.1(L) 35.6 - 45.5 % [facility] Plt 146(L) 150 - 400 K/cumm [facility] MPV 10.2 9.1 - 12.3 fL [facility] RBC 3.21(L) 3.90 - 5.20 M/cumm [facility] MCV 93.8 81.3 - 96.4 fL [facility] Comment:MCV delta due to tasha gical procedure. MCH 29.3 27.1 - 33.3 pg [facility] MCHC 31.2(L) 32.3 - 35.7 g/dL [facility] RDW CV 14.5 11.1 - 14.9 % [facility] RDW SD 49.4(H) 35.7 - 48.1 fL [facility] NRBC abs 0.00 0.00 - 0.01 K/cumm [facility] Blood 05/19/2024 9:35 PM PIPE TESTING TECHNICIAN 05/19/2024 9:50 PM PIPE TESTING TECHNICIAN us Brissa Ko MD LAB BLOOD ORDERABLES Final Result Performing Organization Address City/[facility] [address]/ZIP Co de Phone Number [facility] Department [place] [address] * Phosphorus (05/19/2024 9:35 PM PIPE TESTING TECHNICIAN) Pathologist [facility] [place] Phosphorus, pl 3.4 2.3 - 4.5 mg/dL Blood 05/19/2024 9:35 PM PIPE TESTING TECHNICIAN 05/19/2024 9:47 PM PIPE TESTING TECHNICIAN Brissa Ko MD LAB BLOOD ORDERABLES Final Result Performing Organization Address [facility] [address] [facility]/ZIP Co de Phone Number [facility] Department [place] [address] * Magnesium (05/19/2024 9:35 PM PIPE TESTING TECHNICIAN) [facility] Magnesium 2.2 1.4 - 2.5 mg/dL Blood 05/19/2024 9:35 PM PIPE TESTING TECHNICIAN 05/19/2024 9:47 PM PIPE TESTING TECHNICIAN Brissa Ko MD LAB BLOOD ORDERABLES Final Result [facility] [place] [address] * (ABNORMAL) Blood gas, arterial (05/19/2024 9:35 PM PIPE TESTING TECHNICIAN) [facility] pH, Art 7.48(H) 7.35 - 7.45 PCO2, Arterial 50(H) 35 - 45 mmHg [facility] PO2, Arterial 64(L) 83 - 108 mmHg [facility] HCO3 Art (Calculated) 38(H) 20 - 30 mmol/L [facility] BE, art 12 mmol/L [facility] Comment: Interpretive Data No Reference Range Established Current Interpretive Data was last revised on 2017 O2 Sat Art (Measured) 94 90 - 95 % [facility] Blood 05/19/2024 9:35 PM PIPE TESTING TECHNICIAN 05/19/2024 9:45 PM PIPE TESTING TECHNICIAN Preston HINOJOSA LAB BLOOD ORDER TEDDY Final Result [facility] Department [place] [address] * (ABNORMAL) Basic metabolic panel (05/19/2024 9:35 PM PIPE TESTING TECHNICIAN) [facility] Sodium 144 135 - 145 mmol/L Potassium, pl 4.2 3.3 - 4.9 mmol/L [facility] Chloride 99 97 - 110 mmol/L [facility] CO2 38(H) 22 - 32 mmol/L [facility] Anion gap 7 2 - 15 mmol/L [facility] BUN 15 6 - 25 mg/dL [facility] Creatinine 0.78 0.60 - 1.10 mg/dL [facility] Glucose 143 70 - 199 mg/dL [facility] Comment: Interpretive Data Fasting glucose >/= [...] 2022. Calcium 8.9 8.5 - 10.3 mg/dL [facility] Blood 05/19/2024 9:35 PM PIPE TESTING TECHNICIAN 05/19/2024 9:47 PM PIPE TESTING TECHNICIAN Brissa Ko MD LAB BLOOD ORDERABLES Final Result [facility] Department [place] [address] * Critical Care (05/19/2024 8:59 PM PIPE TESTING TECHNICIAN) Narrative Renay Weber MD - 05/19/2024 8:59 PM PIPE TESTING TECHNICIAN Renay Weber MD 05/28/2024 11:45 PM Critical [...] plan with the ICU team and other medical/application consultant staff, making frequent assessments and decisions [...] Result * POCT glucose (05/19/2024 7:36 PM PIPE TESTING TECHNICIAN) Glucose, POC 153 70 - 199 mg/dL Blood 05/19/2024 7:36 PM PIPE TESTING TECHNICIAN 05/19/2024 7:36 PM PIPE TESTING TECHNICIAN Brissa Ko MD LAB POCT ORDERABLES - DEVIC E Final Result Performing Organization Address City/[facility] [address]/[facility] Co de Phone Number [facility] Department [place] [place] [address] * POCT glucose (05/19/2024 3:43 PM PIPE TESTING TECHNICIAN) Glucose, POC 140 70 - 199 mg/dL Blood 05/19/2024 3:43 PM PIPE TESTING TECHNICIAN 05/19/2024 3:43 PM PIPE TESTING TECHNICIAN Brissa Ko MD LAB POCT ORDERABLES - DEVIC E Final Result Performing Organization Address [facility] [address]/ZIP Co de Phone Number [facility] Department [place] [place] [address] * XR Chest 1 View (05/19/2024 2:08 PM PIPE TESTING TECHNICIAN) Anatomical Region Laterality Modality Body, Chest N/A Computed Radiogr aphy 05/19/2024 2:31 PM PIPE TESTING TECHNICIAN Impressions 05/19/2024 3:25 PM PIPE TESTING TECHNICIAN Comparison is made to radiograph dated 05/19/2024. [...] Rajiv Redman M.D. Narrative 05/19/2024 3:25 PM PIPE TESTING TECHNICIAN EXAMINATION: 1 view chest radiograph Procedure Note [...] Result * POCT glucose (05/19/2024 12:49 PM PIPE TESTING TECHNICIAN) Glucose, POC 140 70 - 199 mg/dL Blood 05/19/2024 12:4 9 PM PIPE TESTING TECHNICIAN 05/19/2024 12:49 PM PIPE TESTING TECHNICIAN us Brissa Ko MD LAB POCT ORDERABLES - DEVIC E Final Result [facility] [place] [address] * eGFR (05/19/2024 12:45 PM PIPE TESTING TECHNICIAN) [facility] eGFR 85 >=60 mL/min/1. 73 m2 [...] reviewed 2021. Blood 05/19/2024 12:4 5 PM PIPE TESTING TECHNICIAN 05/19/2024 12:54 PM PIPE TESTING TECHNICIAN us Preston HINOJOSA LAB BLOOD ORDER TEDDY Final Result [facility] Department [place] [address] * (ABNORMAL) CBC without differential (05/19/2024 12:45 PM PIPE TESTING TECHNICIAN) [facility] WBC 7.1 3.8 - 9.9 K/cumm Hgb 8.9(L) 11.9 - 15.5 g/dL [facility] Hct 29.2(L) 35.6 - 45.5 % [facility] Plt 136(L) 150 - 400 K/cumm [facility] MPV 10.3 9.1 - 12.3 fL [facility] RBC 2.94(L) 3.90 - 5.20 M/cumm [facility] MCV 99.3(H) 81.3 - 96.4 fL [facility] MCH 30.3 27.1 - 33.3 pg [facility] MCHC 30.5(L) 32.3 - 35.7 g/dL [facility] RDW CV 14.5 11.1 - 14.9 % [facility] RDW SD 51.8(H) 35.7 - 48.1 fL [facility] NRBC abs 0.00 0.00 - 0.01 K/cumm [facility] Blood 05/19/2024 12:4 5 PM PIPE TESTING TECHNICIAN 05/19/2024 12:54 PM PIPE TESTING TECHNICIAN Preston HINOJOSA LAB BLOOD ORDER TEDDY Final Result Performing Organization Address [facility] [address]/[facility] de Phone Number [facility] [place] [address] * Phosphorus (05/19/2024 12:45 PM PIPE TESTING TECHNICIAN) Phosphorus, pl 2.4 2.3 - 4.5 mg/dL Blood 05/19/2024 12:4 5 PM PIPE TESTING TECHNICIAN 05/19/2024 12:54 PM PIPE TESTING TECHNICIAN Preston HINOJOSA LAB BLOOD ORDER TEDDY Final Result Performing Organization Address [facility] [address]/[facility] de Phone Number [facility] Department [place] [address] * Magnesium (05/19/2024 12:45 PM PIPE TESTING TECHNICIAN) Magnesium 2.2 1.4 - 2.5 mg/dL Blood 05/19/2024 12:4 5 PM PIPE TESTING TECHNICIAN 05/19/2024 12:54 PM PIPE TESTING TECHNICIAN Preston HINOJOSA LAB BLOOD ORDER TEDDY Final Result Performing Organization Address City/[facility] [address]/[facility] de Phone Number [facility] Department [place] [address] * (ABNORMAL) Blood gas, arterial (05/19/2024 12:45 PM PIPE TESTING TECHNICIAN) [facility] pH, Art 7.43 7.35 - 7.45 PCO2, Arterial 52(H) 35 - 45 mmHg [facility] PO2, Arterial 147(H) 83 - 108 mmHg [facility] HCO3 Art (Calculated) 36(H) 20 - 30 mmol/L [facility] BE, art 9 mmol/L [facility] Comment: Interpretive Data No Reference Range Established Current Interpretive Data was last revised on 2017 O2 Sat Art (Measured) 100(H) 90 - 95 % [facility] Blood 05/19/2024 12:4 5 PM PIPE TESTING TECHNICIAN 05/19/2024 12:50 PM PIPE TESTING TECHNICIAN Preston HINOJOSA LAB BLOOD ORDER TEDDY Final Result Performing Organization Address [facility]/State/[facility] Co de Phone Number [facility] Department [place] [address] * (ABNORMAL) Basic metabolic panel (05/19/2024 12:45 PM PIPE TESTING TECHNICIAN) [facility] Sodium 142 135 - 145 mmol/L Potassium, pl 4.2 3.3 - 4.9 mmol/L [facility] Chloride 99 97 - 110 mmol/L [facility] CO2 35(H) 22 - 32 mmol/L [facility] Anion gap 8 2 - 15 mmol/L [facility] BUN 14 6 - 25 mg/dL [facility] Creatinine 0.73 0.60 - 1.10 mg/dL [facility] Glucose 134 70 - 199 mg/dL [facility] Comment: Interpretive Data Fasting glucose >/= [...] 2022. Calcium 8.6 8.5 - 10.3 mg/dL [facility] Blood 05/19/2024 12:4 5 PM PIPE TESTING TECHNICIAN 05/19/2024 12:54 PM PIPE TESTING TECHNICIAN us Preston HINOJOSA LAB BLOOD ORDER TEDDY Final Result [facility] Department [place] [address] * FL Fluoroscopy < 1 Hour (05/19/2024 11:22 AM PIPE TESTING TECHNICIAN) Narrative [email or web address] - 05/19/2024 11:23 AM PIPE TESTING TECHNICIAN The images from this study are not interpreted by Radiology. Please refer to the physician's procedure / OR operative note. us Annemarie Lea MD IMG FLUOROSCOPY PROCEDURES Final Result Performing Organization Address City/[facility] [address]/ZIP Co de Phone Number [email or web address] * (ABNORMAL) POC Blood Gas and Chemistries, Arterial - (05/19/2024 10:38 AM PIPE TESTING TECHNICIAN) pH, Art POC 7.50(H) 7.35 - 7.45 pCO2, Art POC 51(H) 35 - 45 mmHg [facility] pO2, Art POC 68(L) 83 - 108 mmHg [facility] Na, POC 140 135 - 145 mmol/L [facility] K POC 4.1 3.3 - 4.9 mmol/L [facility] Comment: Interpretive Data Not all point of care methods assess for hemolysis. Confirm with instrument and retest K+ if not consistent with clinical signs and symptoms. Current Interpretive Data was last revised on 2023. Cl, POC 99 97 - 110 mmol/L [facility] Ionized Ca, POC 4.69 4.50 - 5.10 mg/dL [facility] Glucose, POC 141 70 - 199 mg/dL [facility] Lactate, POC 1.0 0.7 - 2.0 mmol/L [facility] SO2 (chiquita) arterial 98(H) 90 - 95 % [facility] Base excess, POC 14.9 mmol/L [facility] Hct, POC 28.0(L) 36.3 - 45.3 % [facility] Total Hb, POC 9.2(L) 11.9 - 15.5 g/dL [facility] Blood 05/19/2024 10:3 8 AM PIPE TESTING TECHNICIAN 05/19/2024 10:38 AM PIPE TESTING TECHNICIAN us Brissa Ko MD LAB POCT ORDERABLES - DEVIC E Final Result [facility] [place] [address] * NE AN PROCEDURE PLACEHOLDER (05/19/2024 9:51 AM PIPE TESTING TECHNICIAN) Narrative Flako Parekh CRNA - 05/19/2024 9:51 AM PIPE TESTING TECHNICIAN Flako Parekh CRNA 05/19/2024 9:52 AM Arterial Line Patient location: OR End time: 05/19/2024 8:30 AM Indication: continuous blood pressure monitoring and blood sampling needed Staff: Supervising provider: Mag Villatoro MD Placed by: LEAD QA ANALYST: Flako Parekh CRNA Procedure prep: Prep solution: chlorhexadine/alcohol Prep: provider hat/mask, sterile gloves and sterile drape Skin infiltrated with lidocaine 1%: yes Arterial line: Catheter size: 3 Setswana Catheter length: 8 cm Catheter type: wire-guided catheter Seldinger technique: yes Laterality: right Site: radial artery Line secured: tape and Tegaderm Results: good waveform and good blood return Number of attempts: 1 Assessment: Events: patient tolerated procedure well with no complications Additional comments: Vygon kit used. CHG-impregnated dressing in use. Ultrasound-guided placement. us Mag Villatoro MD ANESTHESIA ORDERABLES Final R esult * NE AN ELECTIVE ENDOTRACHEAL AIRWAY, NE AN PROCEDURE PLACEHOLDER (05/19/2024 9:46 AM PIPE TESTING TECHNICIAN) Narrative Flako Parekh CRNA - 05/19/2024 9:46 AM PIPE TESTING TECHNICIAN Flako Parekh CRNA 05/19/2024 9:51 AM Airway Patient location: OR Urgency: elective Date/time: 05/19/2024 8:13 AM Indications for airway management: anesthesia Difficult airway: no Staff: Supervising provider: Mag Villatoro MD Placed by: LEAD QA ANALYST: Flako Parekh CRNA Emergent airway documentation: Risks [...] and Chemistries, Arterial - (05/19/2024 8:35 AM PIPE TESTING TECHNICIAN) pH, Art POC 7.41 7.35 - 7.45 pCO2, Art POC 65(H) 35 - 45 mmHg [facility] pO2, Art POC 128(H) 83 - 108 mmHg [facility] Na, POC 141 135 - 145 mmol/L [facility] K POC 4.4 3.3 - 4.9 mmol/L [facility] Comment: Interpretive Data Not all point of care methods assess for hemolysis. Confirm with instrument and retest K+ if not consistent with clinical signs and symptoms. Current Interpretive Data was last revised on 2023. Cl, POC 101 97 - 110 mmol/L [facility] Ionized Ca, POC 4.78 4.50 - 5.10 mg/dL [facility] Glucose, POC 97 70 - 199 mg/dL [facility] Lactate, POC 0.8 0.7 - 2.0 mmol/L [facility] SO2 (chiquita) arterial 100(H) 90 - 95 % [facility] Base excess, POC 14.4 mmol/L [facility] HCO3, Art POC 41(H) 20 - 30 mmol/L [facility] Hct, POC 29.0(L) 36.3 - 45.3 % [facility] Total Hb, POC 9.6(L) 11.9 - 15.5 g/dL [facility] Blood 05/19/2024 8:35 AM PIPE TESTING TECHNICIAN 05/19/2024 8:35 AM PIPE TESTING TECHNICIAN us Brissa Ko MD LAB POCT ORDERABLES - DEVIC E Final Result [facility] Department [place] [place] [address] * POCT glucose (05/19/2024 7:36 AM PIPE TESTING TECHNICIAN) [facility] Glucose, POC 101 70 - 199 mg/dL Blood 05/19/2024 7:36 AM PIPE TESTING TECHNICIAN 05/19/2024 7:36 AM PIPE TESTING TECHNICIAN us Brissa Ko MD LAB POCT ORDERABLES - DEVIC E Final Result [facility] Department [place] [address] * Critical Care (05/19/2024 7:06 AM PIPE TESTING TECHNICIAN) Narrative Earnestine Kelly MD - 05/19/2024 7:06 AM PIPE TESTING TECHNICIAN Earnestine Kelly MD 05/22/2024 3:02 PM Critical [...] plan with the ICU team and other medical/application consultant staff, making frequent assessments and decisions [...] Critical Result Callback Chemistry (05/19/2024 5:18 AM PIPE TESTING TECHNICIAN) Pathologist [facility] [place] Date Notified [id number] Time Notified [facility] TestName Layla FRYE Called/Read Back Funmilyao [facility] Credentials RENETTA FRYE Called By octavio FRYE Blood 05/19/2024 5:18 AM PIPE TESTING TECHNICIAN 05/19/2024 5:25 AM PIPE TESTING TECHNICIAN us Charisse Duhnam NP LAB BLOOD ORDER TEDDY Final Result [facility] [place] [address] * Type and screen (05/19/2024 5:18 AM PIPE TESTING TECHNICIAN) Pathologist [facility] [place], indirect Negative ABO Rh A Positive [facility] Blood 05/19/2024 5:18 AM PIPE TESTING TECHNICIAN 05/19/2024 5:26 AM PIPE TESTING TECHNICIAN Narrative [facility] - 05/19/2024 6:12 AM PIPE TESTING TECHNICIAN Has the patient had Daratumumab or Isatuximab in the past 6 months?->Unknown Mag Villatoro MD LAB BLOOD BANK TEST ORDERABLE S Final Result Performing Organization Address City/[facility] [address]/[facility] Co de Phone Number [facility] Department [place] [address] * (ABNORMAL) Blood gas, venous (05/19/2024 5:18 AM PIPE TESTING TECHNICIAN) [facility] pH, Venous 7.30(L) 7.32 - 7.43 PCO2, Venous 79(C) 40 - 50 mmHg [facility] Comment:Reviewed PO2, Venous 41 mmHg [facility] Comment: Interpretive Data No Reference Range Established Current Interpretive Data was last revised on 2017. HCO3 Venous, Calculated 40(H) 20 - 30 mmol/L [facility] BE, venous 10 mmol/L [facility] Comment: Interpretive Data No Reference Range Established Current Interpretive Data was last revised on 2017. Blood 05/19/2024 5:18 AM PIPE TESTING TECHNICIAN 05/19/2024 5:25 AM PIPE TESTING TECHNICIAN Charisse Dunham NP LAB BLOOD ORDER TEDDY Final Result Performing Organization Address [facility] [address]/[facility] Co de Phone Number [facility] Department [place] [address] * Critical Result Callback Chemistry (05/19/2024 3:41 AM PIPE TESTING TECHNICIAN) [facility] Date Notified [id number] Time Notified [facility] TestName pCO2 Art [facility] Called/Read Back Funmilayo [facility] Credentials RN [facility] Called By JLS [facility] Blood 05/19/2024 3:41 AM PIPE TESTING TECHNICIAN 05/19/2024 3:47 AM PIPE TESTING TECHNICIAN us Charisse Dunham NP LAB BLOOD ORDER TEDDY Final Result Performing Organization Address [facility] [address]/[facility] de Phone Number [facility] [place] [address] * (ABNORMAL) Blood gas, arterial (05/19/2024 3:41 AM PIPE TESTING TECHNICIAN) pH, Art 7.27(L) 7.35 - 7.45 PCO2, Arterial 83(C) 35 - 45 mmHg [facility] Comment:reviewed PO2, Arterial 157(H) 83 - 108 mmHg [facility] HCO3 Art (Calculated) 40(H) 20 - 30 mmol/L [facility] BE, art 9 mmol/L [facility] Comment: Interpretive Data No Reference Range Established Current Interpretive Data was last revised on 2017 O2 Sat Art (Measured) 99(H) 90 - 95 % [facility] Blood 05/19/2024 3:41 AM PIPE TESTING TECHNICIAN 05/19/2024 3:47 AM PIPE TESTING TECHNICIAN us Charisse Dunham NP LAB BLOOD ORDER TEDDY Final Result Performing Organization Address [facility] [address]/[facility] de Phone Number [facility] [place] [address] * XR Chest 1 View (05/19/2024 3:20 AM PIPE TESTING TECHNICIAN) Anatomical Region Laterality Modality Body, Chest N/A Computed Radiogr aphy 05/19/2024 9:14 AM PIPE TESTING TECHNICIAN Impressions 05/19/2024 9:50 AM PIPE TESTING TECHNICIAN Retrocardiac opacity in keeping with left lower [...] Harish Bangura M.D. Narrative 05/19/2024 9:50 AM PIPE TESTING TECHNICIAN EXAMINATION: XR CHEST 1 VIEW HISTORY: altered [...] Result * Critical Care (05/19/2024 3:00 AM PIPE TESTING TECHNICIAN) Narrative Renay Weber MD - 05/19/2024 3:00 AM PIPE TESTING TECHNICIAN Renay Weber MD 05/20/2024 2:54 AM Critical [...] plan with the ICU team and other medical/application consultant staff, making frequent assessments and decisions [...] Result * POCT glucose (05/19/2024 2:38 AM PIPE TESTING TECHNICIAN) Glucose, POC 122 70 - 199 mg/dL Blood 05/19/2024 2:38 AM PIPE TESTING TECHNICIAN 05/19/2024 2:38 AM PIPE TESTING TECHNICIAN us Brissa Ko MD LAB POCT ORDERABLES - DEVIC E Final Result [facility] Department [place] [address] * CTA/CTP Rapid Stroke (C) (05/19/2024 2:26 AM PIPE TESTING TECHNICIAN) Anatomical Region Laterality Modality Head and Neck N/A Computed Tomogra phy 05/19/2024 2:49 AM PIPE TESTING TECHNICIAN Impressions 05/19/2024 8:55 AM PIPE TESTING TECHNICIAN 1. No CT evidence of stroke. 2. [...] were communicated to Dr. Brower by Dr. Cahs at 7:42 AM on 05/19/2024. Dictated by: Lorena Cash MD The radiology attending physician has personally reviewed this study, and had reviewed and/or edited this written report and agrees with it. Electronically signed by: Dianna Johnson M.D. Narrative 05/19/2024 8:55 AM PIPE TESTING TECHNICIAN EXAMINATION: 1. Computed tomography angiography (CTA) of [...] separate workstation for processing by [employer] software ([email or web address]) to produce automated calculations of the estimated [...] Artery: no occlusion or significant stenosis L PHOTOENGRAVING PROOFER: no occlusion or significant stenosis R PHOTOENGRAVING PROOFER: no occlusion or significant stenosis No cerebral [...] separate workstation for processing by [employer] software ([email or web address]) to produce automated calculations of the estimated [...] Artery: no occlusion or significant stenosis L PHOTOENGRAVING PROOFER: no occlusion or significant stenosis R PHOTOENGRAVING PROOFER: no occlusion or significant stenosis No cerebral [...] it. Electronically signed by: Dianna Johnson M.D. Brissa Ko MD IMG CT PROCEDURES Final Res ult * (ABNORMAL) POCT [id number], WB - ISTAT (05/19/2024 1:27 AM PIPE TESTING TECHNICIAN) Pathologist [facility] [place] Na POC 140 135 - 145 mmol/L K POC 4.5 3.3 - 4.9 mmol/L [facility] Comment: Interpretive Data This method is not able to assess for hemolysis, which may falsely increase potassium concentrations. If further testing is needed to evaluate this result, consider in-laboratory plasma potassium. Current Interpretive Data was last revised on 2021. Glucose POC i-STAT 123 70 - 199 mg/dL [facility] Hct, POC 31.0(L) 35.6 - 45.5 % [facility] Blood 05/19/2024 1:27 AM PIPE TESTING TECHNICIAN 05/19/2024 1:27 AM PIPE TESTING TECHNICIAN us Brissa Ko MD LAB POCT ORDERABLES - DEVIC E Final Result [facility] Department [place] [address] * (ABNORMAL) Arterial Blood gas w/Lactate POCT (05/19/2024 1:22 AM PIPE TESTING TECHNICIAN) [facility] Lactate POC i-STAT <0.5(L) 0.7 - 2.0 mmol/L pH POC 7.29(L) 7.35 - 7.45 [facility] pCO2, Art POC 81(C) 35 - 45 mmHg [facility] PO2 POC 88 80 - 105 mmHg [facility] CO2, total POC 41(H) 20 - 30 mmol/L [facility] HCO3, POC 39(H) 21 - 30 mmol/L [facility] BE POC 12(H) -2 - 3 mmol/L [facility] O2 sat POC 95 95 - 98 % [facility] Blood 05/19/2024 1:22 AM PIPE TESTING TECHNICIAN 05/19/2024 1:22 AM PIPE TESTING TECHNICIAN Brissa Ko MD LAB BLOOD ORDERABLES Final Result Performing Organization Address [facility] [address] [facility] Co de Phone Number [facility] [place] [address] * POCT glucose (05/19/2024 1:15 AM PIPE TESTING TECHNICIAN) [facility] Glucose, POC 134 70 - 199 mg/dL Blood 05/19/2024 1:15 AM PIPE TESTING TECHNICIAN 05/19/2024 1:15 AM PIPE TESTING TECHNICIAN Brissa Ko MD LAB POCT ORDERABLES - DEVIC E Final Result Performing Organization Address [facility] de Phone Number [facility] [place] [address] * Potassium, whole blood (05/19/2024 12:55 AM PIPE TESTING TECHNICIAN) [facility] Potassium, bld 4.6 3.3 - 4.9 mmol/L Blood 05/19/2024 12:5 5 AM PIPE TESTING TECHNICIAN 05/19/2024 1:10 AM PIPE TESTING TECHNICIAN Brissa Ko MD LAB BLOOD ORDERABLES Final Result Performing Organization Address [facility] [address] [facility] Co de Phone Number [facility] [place] [address] * eGFR (05/19/2024 12:55 AM PIPE TESTING TECHNICIAN) [facility] eGFR 75 >=60 mL/min/1. 73 m2 Comment: [...] reviewed 2021. Blood 05/19/2024 12:5 5 AM PIPE TESTING TECHNICIAN 05/19/2024 1:24 AM PIPE TESTING TECHNICIAN Brissa Ko MD LAB BLOOD ORDERABLES Final Result [facility] Department [place] [address] * (ABNORMAL) CBC without differential (05/19/2024 12:55 AM PIPE TESTING TECHNICIAN) WBC 5.7 3.8 - 9.9 K/cumm Hgb 9.1(L) 11.9 - 15.5 g/dL [facility] Hct 30.2(L) 35.6 - 45.5 % [facility] Plt 136(L) 150 - 400 K/cumm [facility] MPV 10.9 9.1 - 12.3 fL [facility] RBC 3.06(L) 3.90 - 5.20 M/cumm [facility] MCV 98.7(H) 81.3 - 96.4 fL [facility] MCH 29.7 27.1 - 33.3 pg [facility] MCHC 30.1(L) 32.3 - 35.7 g/dL [facility] RDW CV 14.5 11.1 - 14.9 % [facility] RDW SD 52.2(H) 35.7 - 48.1 fL [facility] NRBC abs 0.00 0.00 - 0.01 K/cumm [facility] Blood 05/19/2024 12:5 5 AM PIPE TESTING TECHNICIAN 05/19/2024 1:25 AM PIPE TESTING TECHNICIAN Brissa Ko MD LAB BLOOD ORDERABLES Final Result Performing Organization Address [facility] Co de Phone Number [facility] [place] [address] * Phosphorus (05/19/2024 12:55 AM PIPE TESTING TECHNICIAN) [facility] Phosphorus, pl 4.1 2.3 - 4.5 mg/dL Blood 05/19/2024 12:5 5 AM PIPE TESTING TECHNICIAN 05/19/2024 1:24 AM PIPE TESTING TECHNICIAN Brissa Ko MD LAB BLOOD ORDERABLES Final Result Performing Organization Address [facility] [address]/[facility] de Phone Number [facility] [place] [address] * Magnesium (05/19/2024 12:55 AM PIPE TESTING TECHNICIAN) [facility] Magnesium 1.8 1.4 - 2.5 mg/dL Blood 05/19/2024 12:5 5 AM PIPE TESTING TECHNICIAN 05/19/2024 1:24 AM PIPE TESTING TECHNICIAN Brissa Ko MD LAB BLOOD ORDERABLES Final Result Performing Organization Address [facility] [address]/[facility] Co de Phone Number [facility] [place] [address] * (ABNORMAL) Basic metabolic panel (05/19/2024 12:55 AM PIPE TESTING TECHNICIAN) [facility] Sodium 145 135 - 145 mmol/L Potassium, pl 4.8 3.3 - 4.9 mmol/L [facility] Chloride 104 97 - 110 mmol/L [facility] CO2 39(H) 22 - 32 mmol/L [facility] Anion gap 2 2 - 15 mmol/L [facility] BUN 17 6 - 25 mg/dL [facility] Creatinine 0.81 0.60 - 1.10 mg/dL [facility] Glucose 126 70 - 199 mg/dL [facility] Comment: Interpretive Data Fasting glucose >/= [...] 2022. Calcium 8.8 8.5 - 10.3 mg/dL [facility] Blood 05/19/2024 12:5 5 AM PIPE TESTING TECHNICIAN 05/19/2024 1:24 AM PIPE TESTING TECHNICIAN Brissa Ko MD LAB BLOOD ORDERABLES Final Result [facility] [place] [address] * NE AN ELECTIVE ENDOTRACHEAL AIRWAY, NE AN PROCEDURE PLACEHOLDER (05/18/2024 4:41 PM PIPE TESTING TECHNICIAN) Narrative Dar Long CRNA - 05/18/2024 4:41 PM PIPE TESTING TECHNICIAN Dar Long CRNA 05/18/2024 4:45 PM Airway Patient location: OR Urgency: elective Date/time: 05/18/2024 4:05 PM Indications for airway management: anesthesia and airway protection Difficult airway: no Staff: Placed by: Anesthesiologist: Kvng Verma MD LEAD QA ANALYST: Dar Long CRNA Emergent airway documentation: Risks [...] ORDERABLE S Edited Result - Final * NE AN PROCEDURE PLACEHOLDER (05/18/2024 3:47 PM PIPE TESTING TECHNICIAN) Narrative Kvng Verma MD - 05/18/2024 3:47 PM PIPE TESTING TECHNICIAN Kvng Verma MD 05/20/2024 9:44 AM Peripheral [...] Final Result * eGFR (05/17/2024 11:56 PM PIPE TESTING TECHNICIAN) eGFR 73 >=60 mL/min/1. 73 m2 Comment: [...] reviewed 2021. Blood 05/17/2024 11:5 6 PM PIPE TESTING TECHNICIAN 05/18/2024 12:45 AM PIPE TESTING TECHNICIAN Brissa Ko MD LAB BLOOD ORDERABLES Final Result [facility] [place] [address] * (ABNORMAL) CBC without differential (05/17/2024 11:56 PM PIPE TESTING TECHNICIAN) Pathologist [facility] WBC 5.3 3.8 - 9.9 K/cumm Hgb 9.5(L) 11.9 - 15.5 g/dL [facility] Hct 31.7(L) 35.6 - 45.5 % [facility] Plt 147(L) 150 - 400 K/cumm [facility] MPV 11.0 9.1 - 12.3 fL [facility] RBC 3.23(L) 3.90 - 5.20 M/cumm [facility] MCV 98.1(H) 81.3 - 96.4 fL [facility] MCH 29.4 27.1 - 33.3 pg [facility] MCHC 30.0(L) 32.3 - 35.7 g/dL [facility] RDW CV 14.6 11.1 - 14.9 % [facility] RDW SD 52.7(H) 35.7 - 48.1 fL [facility] NRBC abs 0.00 0.00 - 0.01 K/cumm [facility] Blood 05/17/2024 11:5 6 PM PIPE TESTING TECHNICIAN 05/18/2024 12:45 AM PIPE TESTING TECHNICIAN Brissa Ko MD LAB BLOOD ORDERABLES Final Result Performing Organization Address City/[facility] [address] [facility] [place] [address] * Phosphorus (05/17/2024 11:56 PM PIPE TESTING TECHNICIAN) Pathologist [facility] Phosphorus, pl 3.9 2.3 - 4.5 mg/dL Blood 05/17/2024 11:5 6 PM PIPE TESTING TECHNICIAN 05/18/2024 12:45 AM PIPE TESTING TECHNICIAN Brissa Ko MD LAB BLOOD ORDERABLES Final Result Performing Organization Address [facility] [address] [facility] Co de Phone Number [facility] [place] [address] * Magnesium (05/17/2024 11:56 PM PIPE TESTING TECHNICIAN) [facility] Magnesium 1.9 1.4 - 2.5 mg/dL Blood 05/17/2024 11:5 6 PM PIPE TESTING TECHNICIAN 05/18/2024 12:45 AM PIPE TESTING TECHNICIAN Brissa Ko MD LAB BLOOD ORDERABLES Final Result Performing Organization Address [facility] [address]/[facility] de Phone Number [facility] [place] [address] * (ABNORMAL) Basic metabolic panel (05/17/2024 11:56 PM PIPE TESTING TECHNICIAN) Pathologist [facility] Sodium 146(H) 135 - 145 mmol/L Potassium, pl 5.0(H) 3.3 - 4.9 mmol/L [facility] Chloride 102 97 - 110 mmol/L [facility] CO2 37(H) 22 - 32 mmol/L [facility] Anion gap 7 2 - 15 mmol/L [facility] BUN 22 6 - 25 mg/dL [facility] Creatinine 0.83 0.60 - 1.10 mg/dL [facility] Glucose 101 70 - 199 mg/dL [facility] Comment: Interpretive Data Fasting glucose >/= [...] 2022. Calcium 9.3 8.5 - 10.3 mg/dL [facility] Blood 05/17/2024 11:5 6 PM PIPE TESTING TECHNICIAN 05/18/2024 12:45 AM PIPE TESTING TECHNICIAN Brissa Ko MD LAB BLOOD ORDERABLES Final Result [facility] [place] [address] * eGFR (05/16/2024 10:25 PM PIPE TESTING TECHNICIAN) Pathologist [facility] eGFR 61 >=60 mL/min/1. 73 m2 Comment: [...] reviewed 2021. Blood 05/16/2024 10:2 5 PM PIPE TESTING TECHNICIAN 05/16/2024 10:50 PM PIPE TESTING TECHNICIAN us Brissa Ko MD LAB BLOOD ORDERABLES Final Result [facility] [place] [address] * (ABNORMAL) CBC without differential (05/16/2024 10:25 PM PIPE TESTING TECHNICIAN) WBC 4.8 3.8 - 9.9 K/cumm Hgb 9.0(L) 11.9 - 15.5 g/dL [facility] Hct 30.0(L) 35.6 - 45.5 % [facility] Plt 134(L) 150 - 400 K/cumm [facility] MPV 10.6 9.1 - 12.3 fL [facility] RBC 3.01(L) 3.90 - 5.20 M/cumm [facility] MCV 99.7(H) 81.3 - 96.4 fL [facility] MCH 29.9 27.1 - 33.3 pg [facility] MCHC 30.0(L) 32.3 - 35.7 g/dL [facility] RDW CV 14.6 11.1 - 14.9 % [facility] RDW SD 53.5(H) 35.7 - 48.1 fL [facility] NRBC abs 0.00 0.00 - 0.01 K/cumm [facility] Blood 05/16/2024 10:2 5 PM PIPE TESTING TECHNICIAN 05/16/2024 10:50 PM PIPE TESTING TECHNICIAN us Brissa Ko MD LAB BLOOD ORDERABLES Final Result Performing Organization Address City/[facility] [address] [facility]/ZIP Co de Phone Number [facility] [place] [address] * Phosphorus (05/16/2024 10:25 PM PIPE TESTING TECHNICIAN) Pathologist [facility] Phosphorus, pl 3.9 2.3 - 4.5 mg/dL Blood 05/16/2024 10:2 5 PM PIPE TESTING TECHNICIAN 05/16/2024 10:50 PM PIPE TESTING TECHNICIAN Brissa Ko MD LAB BLOOD ORDERABLES Final Result Performing Organization Address [facility] [address]/[facility] Co de Phone Number [facility] [place] [address] * Magnesium (05/16/2024 10:25 PM PIPE TESTING TECHNICIAN) [facility] Magnesium 1.8 1.4 - 2.5 mg/dL Blood 05/16/2024 10:2 5 PM PIPE TESTING TECHNICIAN 05/16/2024 10:50 PM PIPE TESTING TECHNICIAN Brissa Ko MD LAB BLOOD ORDERABLES Final Result Performing Organization Address City/[facility] [address]/[facility] Co de Phone Number [facility] [place] [address] * (ABNORMAL) Basic metabolic panel (05/16/2024 10:25 PM PIPE TESTING TECHNICIAN) Pathologist [facility] Sodium 146(H) 135 - 145 mmol/L Potassium, pl 4.7 3.3 - 4.9 mmol/L [facility] Chloride 103 97 - 110 mmol/L [facility] CO2 39(H) 22 - 32 mmol/L [facility] Anion gap 4 2 - 15 mmol/L [facility] BUN 23 6 - 25 mg/dL [facility] Creatinine 0.96 0.60 - 1.10 mg/dL [facility] Glucose 98 70 - 199 mg/dL [facility] Comment: Interpretive Data Fasting glucose >/= [...] 2022. Calcium 9.0 8.5 - 10.3 mg/dL [facility] Blood 05/16/2024 10:2 5 PM PIPE TESTING TECHNICIAN 05/16/2024 10:50 PM PIPE TESTING TECHNICIAN us Brissa Ko MD LAB BLOOD ORDERABLES Final Result [facility] [place] [address] from Last 3 Months Insurance MEDICARE MEDICARE [facility] MEDICARE SUPPLEMENT MEDICARE [facility] MEDICARE SUPPLEMENT Advance Directives For more information, please contact: [phone] * Full Code (Latest Code Status on File) Date Activated Date Inactivated Comments 05/13/2024 8:42 PM 05/27/2024 11:27 PM Care Teams Automatic Coin Machine Mechanic Relationship Specialty Start Date End Date Meagan Yusuf MD PCP - General Family Medicine 05/22/23 Annemarie Lea MD [address] [place] [address] Consulting Physician Otolaryngology 05/27/24 Margy Walker MD PhD [address] [place] [address] Consulting Physician Plastic Surgery 05/27/24 Geraldine Barbosa NP [address] [place], [place] [id number] Nurse Practitioner Neurosurgery 05/27/24
--- OUTSIDE RECORDS SUMMARY | 2024-08-13 01:00 | XMS_ITS | Encounter Summary ---
Author Organization [facility] Address [address] [place] [address] Care Team Providers Care Host Name Role Phone Meagan Yusuf MD Primary Care Provider + Annemarie Lea MD Unavailable [phone] Margy Walker MD PhD Unavailable [phone] Geraldine Barbosa NP Unavailable [phone] Encounter Details Date Type Department Care Team (Latest Contact Info) Description 08/07/2024 Results Follow-Up [facility] Cardiology [address] [place] [address] aRdha Jimenez MD [address] [address] Transthoracic Echo (TTE) Complete W [...] on file Legal Sex Female 4:29 PM POULTRY SERVICE TECHNICIAN Gender Identity Not on file Sexual Orientation Not on file documented as of this encounter Plan of Treatment Not on file documented as of this encounter Visit Diagnoses Not on filedocumented in this encounter Care Teams Host Relationship Specialty Start Date End Date Meagan Yusuf MD PCP - General Family Medicine 05/22/23 Annemarie Lea MD [address] [place] [address] Consulting Physician Otolaryngology 05/27/24 Margy Walker MD PhD [address] [place] [address] Consulting Physician Plastic Surgery 05/27/24 Geraldine Barbosa NP [address] [place] [address] Nurse Practitioner Neurosurgery 05/27/24 documented as of this encounter
--- OUTSIDE RECORDS SUMMARY | 2024-08-13 01:00 | XMS_ITS | Clinical Summary ---
Author Organization [facility] Address [address] [place] [address] Phone Care Team Providers Care Coat Presser Name Role Phone Juan David Yusuf MD Primary Care Provider [phone] Allergies Active Allergy Reactions Criticality Noted Date [...] 6 Tablets 42 Tablet 01/30/2018 3:41 PM VICE PRESIDENT [employer] 8 Active Active Problems Problem Noted Date [...] on file Legal Sex Female 3:33 AM VICE PRESIDENT [employer] Gender Identity Not on file Sexual Orientation Not on file Last Filed Vital Signs Vital Sign Reading Time Taken Comments Blood Pressure 123/62 01/30/2018 12:28 PM VICE PRESIDENT [employer] Pulse 74 01/30/2018 12:28 PM VICE PRESIDENT [employer] Temperature 36.5 C (97.7 F) 01/30/2018 12:28 PM VICE PRESIDENT [employer] Respiratory Rate 10 01/30/2018 12:28 PM VICE PRESIDENT [employer] Oxygen Saturation 93% 01/30/2018 12:28 PM VICE PRESIDENT [employer] Inhaled Oxygen Concentration - - Weight 116.6 kg (257 lb) 01/28/2018 8:16 AM VICE PRESIDENT [employer] Height 167.6 cm (5' 6 ) 01/28/2018 8:16 AM VICE PRESIDENT [employer] Body Mass Index 41.48 01/28/2018 8:16 AM VICE PRESIDENT [employer] Plan of Treatment Health Maintenance Due Date Last Done Comments DTAP/TDAP/TD VACCINES (1 - Tdap) 12/21/1966 PNEUMOCOCCAL VACCINE 50+ YEARS (1 of 2 - PCV) 12/21/18 67 ZOSTER VACCINE (1 of 2) 12/21/1997 OSTEOPOROSIS SCREENING 12/21/2012 RSV VACCINE (60+ or ) (1 - 1-dose 75+ series) 12/21/2022 INFLUENZA VACCINE (#1) 2023 01/28/2018 Medical Devices Implanted Type Area Director Card Device Identifier Shelf Expiration Date Model / Serial / Lot Shell Ringlc+ Pc 54mm [id number] - [id number] Implanted:Qty: 1 on 11/08/2016 by Abhinav Quesada MD at [facility] Hip Right: Hip [employer] [id number] 09/27/2026 [id number] / / [id number] Liner Arcomxl Rnglc Sz24 Xl-[id number] - [id number] Implanted:Qty: 1 on 11/08/2016 by Abhinav Quesada MD at [facility] Hip Right: Hip [employer] [id number] 10/01/2020 [id number] / / [id number] Stem Fem Echo Bmtrc Por Red Lat [id number] - [id number] Implanted:Qty: 1 on 11/08/2016 by Abhinav Quesada MD at [facility] Hip Right: Hip [employer] [id number] 04/11/2025 [id number] / / [id number] Head Modular Noskt 36mm -3mm [id number] - [id number] Implanted:Qty: 1 on 11/08/2016 by Abhinav Quesada MD at [facility] Hip Right: Hip [employer] [id number] 09/25/2026 [id number] / / [id number] Rsp Glenoid Head W Retaining Screw Neutral Sz 32mm Implanted:Qty: 1 on 01/27/2018 by Guerrero Cho MD at [facility] Other Right: Shoulder [employer] 12/05/2023 508-32-10 1 / / [id number] Small Socket Insert 32mm Semi Constrained E Plus Implanted:Qty: 1 on 01/27/2018 by Guerrero Cho MD at [facility] Other Right: Shoulder [employer] 11/29/2022 509-03-03 2 / / [id number] Humeral Stem Small Shell [id number] Implanted:Qty: 1 on 01/27/2018 by Guerrero Cho MD at [facility] Other Right: Shoulder [employer] 11/22/2023 533-10-10 8 / / [id number] Description:All [employer] Surgical shoulder components are processed on requisition,[id number]. Rsp Glenoid Baseplate Implanted:Qty: 1 on 01/27/2018 by Guerrero Cho MD at [facility] Screw Right: Shoulder [employer] [id number] 10/23/2023 508-32-20 4 / / [id number] Rsp Bone Screw Locking Sz 5.0mm 30mm Long Implanted:Qty: 1 on 01/27/2018 by Guerrero Cho MD at [facility] Screw Right: Shoulder [employer] 06/25/2023 506-03- 0 / / [id number] Rsp Bone Screw Locking Sz 5.0mm 22 Mm Long Implanted:Qty: 1 on 01/27/2018 by Guerrero Cho MD at [facility] Screw Right: Shoulder [employer] 08/17/2023 506-12 2 / / [id number] Bone Screw Rsp5.0x26mm Long Implanted:Qty: 1 on 01/27/2018 by Guerrero Cho MD at [facility] Screw Right: Shoulder [employer] 6 / / Rsp Bone Screw- Locking Implanted:Qty: 1 on 01/27/2018 by Guerrero Cho MD at [facility] Right: Shoulder [employer] 11/01/2023 506-03-11 [id number] Insurance MEDICARE PART A AND B BCBS SUPP RX [employer] Medicare Part D RX [facility] Medicare Part D Advance Directives For more information, please contact: [phone] Documents on File Type Date Recorded Patient Air Quality Engineer Expl anation Advance Directive POA 02/04/2018 1:58 [...] 6:44 AM 11/08/2016 7:30 AM Care Teams Coat Presser Relationship Specialty Start Date End Date Juan David Yusuf MD PCP - General Family Practice 01/14/18
--- OUTSIDE RECORDS SUMMARY | 2024-08-13 01:00 | XMS_ITS | Continuity of Care Document ---
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 [address], [place], [place], [id number] . tel: [phone] [facility], [address] [place] [address], [address], tel:[phone] [facility] Chaitanya s/p reverse right shoulder (chief complaint) Status post reverse total arthroplasty of right shoulder 8 Marquis Masters. [address], [place], [place], [id number] . tel: [phone] [facility], [address] [place] [address], [address], tel:[phone] [facility] Other specific arthropathies , not elsewhere classified, right shoulder 8 Marquis Masters. [address] [facility] [address], [place], [place], [id number] . tel: [phone] OFFICE/OUTPA TIENT VISIT EST [facility], [address] [place] [address], [address], [phone] [facility] Complete tear of right rotator cuffPrimary osteoarthriti s of right shoulder 0 8 Marquis Masters. [address], [place], [place], [id number] . tel: [phone] OFFICE/OUTPA TIENT VISIT EST [facility], [address] [place] [address], [address], [place] tel:[phone] [facility] [place] RT SHOULDER INJURY 7\ (chief complaint) Body mass index (BMI) 40.0-44.9, adultComplete tear of right rotator cuff 8 Sangita Abhinav. [address] [place] [address], [id number] . tel: [phone] Referring Provider: Juan David Patiño, [address] [place], [place], [address]. tel:[phone] OFFICE/OUTPA TIENT VISIT [facility], [address] [place] [address], [address], [place] tel:[phone] [facility] History of total right hip arthroplasty 8 Sangita La. [address] [place] [address], [id number] . tel: [phone] Referring Provider: Meagan Wren, PERMANENTLY CLOSED [address] [place], [place], [address]. tel:[phone] [facility], [address] [place] [address], [address], [place] tel:[phone] [facility] History of total right hip arthroplasty 7 Sangita La. [address] [place] [address], [id number] . tel: [phone] [facility], [address] [place] [address], [address], [place] tel:[phone] [facility] [place] R YANIRA 11/08/16 (chief complaint) History of total right hip arthroplasty 7 Michael Lemos. [address] [place] [address] [address], [place], [place], [id number] . tel: [phone] [facility], [address] [place] [address], [address], [phone] [facility] R YANIRA 11/08/16 (chief complaint) History of total right hip arthroplasty Sep-0 7 Michael Lemos. [address] [place] [address] [address], [place], [place], [id number] . tel: [phone] [facility], [address] [place] [address], [address], [place] tel:[phone] [facility] No Information Sangita La. [address] [place] [address], [id number] . tel: [phone] OFFICE/OUTPA TIENT VISIT EST [facility], [address] [place] [address], [address], tel:[phone] [facility] Follow Up of after right hip mri (chief complaint) Primary osteoarthriti s of right hipHip abductor tendinitis, right 7 Sangita La. [address] [place] [address], [id number] . tel: [phone] OFFICE/OUTPA TIENT VISIT [facility], [address] [place] [address], [address], [place] [phone] [facility] R hip (chief complaint) Body mass index (BMI) 38.0-38.9, adultPrimary osteoarthriti s of right hipHip abductor tendinitis, right 7 Sangita La. [address] [place] [address], [id number] . tel: [phone] Referring Provider: Kristel Villegas, [address], [place], [address]. tel:[phone] Family History Family Member Type Diagnosis Age At Onset Brother Problem (finding) Alive and well Immunizations Vaccine Date Status Comments Pneumo (2 yrs or older)(PPV) administered Source: Other Provider Payers Payer name Insurance type Covered republican ID Lela gong(s) Medicare E2 OT [id number] [place] Medicare Supplement E2 [id number] Social History Type Description Quantity Date [...]
--- OUTSIDE RECORDS SUMMARY | 2024-08-13 01:00 | XMS_ITS ---
Author Name Auto Generated, Auto Generated Organization [facility] Address [address] [place] [address] Phone [phone] Care Team Providers Care Turbine Inspector Name Role Phone Camila Spence Unavailable Liseth Suherine Unavailable Meagan Turner Unavailable Functional Status No Results Mental Status No Results Allergies and Intolerances Name Onset Date Reaction Severity thiopental (Allergy) SatFeb 06 12:18:00 EST 202 3 penicillin (Allergy) SatFeb 06 12:18:00 EST 202 3 Encounters Program Name Primary Diagnosis Admission Date/Time Dis charge Date/Time [facility] SatJun 16 10:00:00 EDT 2024Jul 07 09:45:00 EDT 2024 [facility] SatAugust 19 13:00:00 [...] Hours for 4 Days Indication: Pneumonia (2 [id number]) SatFeb 06 14:00:00 2022Feb 10 13:59:00 2022 [...] 2022 * End Date: * Text: * [employer] (current) use of anticoagulants* Code: * Start [...] 2023 * End Date: * Text: * [facility] (current) use of opiate analgesic* Code: * [...] * Text: * Atherosclerotic heart disease of [place] coronary artery without angina pectoris* Code: * [...] will be involved in discharge planning. * [id number] Ping receives a therapeutic diet. (12)* Code: * Start Date: SatJun 25 00:00:00 EDT 2024 * End Date: * Text: [id number] Ping receives a therapeutic diet. (12) * [...] * End Date: * Text: NEGRITOSocial Allegra Fegn has family/friends who are supportive. * NEGRITOSocial [...] EDT 2024 Diastolic Blood Pressure 80.00 mm[Hg] Rust Apr 12 22:04:55 EDT 2024 Systolic Blood Pressure 122.00 mm[Hg] Rust Apr 12 22:04:55 EDT 2024 Diastolic Blood Pressure 80.00 mm[Hg] Rust Apr 12 22:04:55 EDT 2024 Heart Rate 94.00 /min Sat Apr 12 22:04 :55 EDT 2024 Heart Rate 94.00 /min Rust Apr 12 22:04 :55 EDT 2024 Body weight 212.80 [lb_av] Sat Apr 12 17:09 :01 EDT 2024 Systolic Blood Pressure 119.00 mm[Hg] Sat Apr 12 14:27:00 EDT 2024 Diastolic Blood Pressure 83.00 mm[Hg] Rust Apr 12 14:27:00 EDT 2024 Heart Rate [...] :23 EDT 2024 Pulse Oximetry 93.00 % Rust Apr 12 11:56 :23 EDT 2024 Systolic [...] EDT 2023 Diastolic Blood Pressure 83.00 mm[Hg] Rust Aug 08 08:12:00 EDT 4 Systolic Blood Pressure 125.00 mm[Hg] Rust Aug 08 08:12:00 EDT 4 Diastolic Blood Pressure 83.00 mm[Hg] Sat Aug 08 08:12:00 EDT 4 Heart Rate 86.00 /min Sat Aug 08 08:12 :00 EDT 4 Heart Rate 86.00 /min Rust Aug 08 08:12 :00 EDT 4 Body temperature 98.50 [degF] Sat Aug 08 08:1 2:00 EDT 4 Respiratory rate 20.00 /min Sat Aug 08 08:1 2:00 EDT 4 Pulse Oximetry 95.00 % Rust Aug 08 08:12 :00 EDT 4 Systolic [...] 20:32:26 EDT 2023 Heart Rate 78.00 /min Rust Aug 23 20:32 :26 EDT 4 Systolic Blood Pressure 119.00 mm[Hg] Rust Aug 23 19:37:36 EDT 2023 Diastolic Blood Pressure 72.00 mm[Hg] Rust Aug 23 19:37:36 EDT 2023 Heart Rate 81.00 /min Rust Aug 23 19:37 :36 EDT 4 Body temperature 97.70 [degF] Rust Aug 23 19:3 7:36 EDT 2023 Respiratory rate 18.00 /min Rust Aug 23 19:3 7:36 EDT 2023 Pulse Oximetry 92.00 % Rust Aug 23 19:37 :36 EDT 2023 Body weight 198.80 [lb_av] Rust Aug 23 17:53 :45 EDT 2023 Systolic Blood Pressure 113.00 mm[Hg] Rust Aug 23 08:59:28 EDT 2023 Diastolic Blood Pressure 82.00 mm[Hg] Rust Aug 23 08:59:28 EDT 2023 Systolic Blood Pressure 113.00 mm[Hg] Rust Aug 23 08:59:28 EDT 2023 Diastolic Blood Pressure 82.00 mm[Hg] Rust Aug 23 08:59:28 EDT 4 Systolic Blood Pressure 113.00 mm[Hg] Rust Aug 23 08:59:28 EDT 2023 Diastolic Blood Pressure 82.00 mm[Hg] Rust Aug 23 08:59:28 EDT 4 Heart Rate 80.00 /min Rust Aug 23 08:59 :28 EDT 2023 Heart Rate 80.00 /min Rust Aug 23 08:59 :28 EDT 2023 Body temperature 98.30 [degF] Rust Aug 23 08:5 9:28 EDT 2023 Respiratory rate 22.00 /min Rust Aug 23 08:5 9:28 EDT 2023 Pulse Oximetry 92.00 % Rust Aug 23 08:59 :28 EDT 2023 Systolic [...]
== END 2024-08-13 02:25 | disposition home or self-care (01) ==
LOC: ANHED 08-13 00:56
PROVIDERS: Emergency Medicine; Emergency Provider Physician Assistant; PCP Family Medicine
DX: E87.6 Hypokalemia (principal); I48.91 Unspecified atrial fibrillation; I50.9 Heart failure, unspecified; I25.2 Old myocardial infarction; I27.20 Pulmonary hypertension, unspecified; N18.9 Chronic kidney disease, unspecified; J96.11 Chronic respiratory failure with hypoxia; Z99.81 Dependence on supplemental oxygen; E78.2 Mixed hyperlipidemia; K51.90 Ulcerative colitis, unspecified, without complications; G25.81 Restless legs syndrome; M17.9 Osteoarthritis of knee, unspecified; F32.A Depression, unspecified; Z96.641 Presence of right artificial hip joint; Z96.611 Presence of right artificial shoulder joint; Z87.891 Personal history of nicotine dependence; Z87.440 Personal history of urinary (tract) infections; Z90.710 Acquired absence of both cervix and uterus; Z79.899 Other long term (current) drug therapy
CPT/HCPCS: 36415; 80053; 83735; 85025; 93005; 96365; 99284; A9270; J3475

== ENCOUNTER 2024-08-18 09:40 | Outpatient (CLI) | payer MEDICARE, SELFPAY ==
--- OUTSIDE RECORDS SUMMARY | 2024-08-18 09:45 | XMS_ITS | Clinical Summary ---
Author Organization [facility] Address [address] [place] [address] Care Team Providers Care Diamond Powder Mixer Name Role Phone Meagan Yusuf MD Primary Care Provider + Annemarie Lea MD Unavailable [phone] Margy Walker MD PhD Unavailable [phone] Geraldine Barbosa NP Unavailable [phone] Allergies Active Allergy Reactions Criticality Noted Date [...] 05/23/2024 Assessment & Plan (05/26/2024 9:50 AM PERSONNEL ANALYST): #COPD #TRAVIS, chronic #Chronic hypoxic respiratory failure [...] 05/23/2024 Assessment & Plan (05/27/2024 11:52 AM PERSONNEL ANALYST): 3 tx out ICU, PT/OT - 05/25: awaiting repeat swallow evaluation, calorie counts - 05/26: Continue Tfs at nightly, Calorie counts. Wean O2 back to home 4L. Not medically ready for discharge. 05/27: Patient is medically stable for discharge, SW/CM updated. Discharge pending facility bed availability Treatment note 05/14 [x] Feeding difficulties 05/22/2024 Assessment & Plan (05/27/2024 11:55 AM PERSONNEL ANALYST): SBFT placed by ENT 05/21 TFs commenced [...] NPO, resumed tube feeds, ordered for repeat BAKERY CLERK evaluation. Recommend up in chair for all meals and 1:1 assistance during meals pending BAKERY CLERK evaluation. Discussed with patient and nurse to inform provider of any change in clinical exam or vital signs. 05/25: repeat Swallow- regular diet, regular thin liquids assistance with meals, calorie counts ordered, cycle tube feeding over PM MBS (05/27): swallow mechanism is normal Respiratory distress 05/20/2024 Assessment & Plan (05/27/2024 11:55 AM PERSONNEL ANALYST): Transferred to SICU 05/18 ON after respiratory [...] 05/14/2024 Assessment & Plan (05/15/2024 2:15 PM PERSONNEL ANALYST): - Orthostatic vital signs (05/14): negative - [...] 05/14/2024 Assessment & Plan (05/14/2024 12:48 PM PERSONNEL ANALYST): - Tylenol 1g q6h - Gabapentin 300mg TID - Robaxin 500mg TID PRN - Oxycodone 5mg q4h PRN Closed fracture of distal end of left radius Assessment & Plan (05/27/2024 11:55 AM PERSONNEL ANALYST): - Plastics consult - L hand/wrist xr [...] 05/14/2024 Assessment & Plan (05/25/2024 11:39 AM PERSONNEL ANALYST): - Magnesium (05/14): 1.9mg/dL - 05/14: replete Magnesium 2g IV - Magnesium (05/15): 2.0mg/dL - Magnesium (05/20): 2.2mg/dL - Magnesium (05/25): 2.0mg/dL - continue to trend Magnesium Fall, initial encounter 05/13/2024 Assessment & Plan (05/15/2024 10:18 AM PERSONNEL ANALYST): Syncopal workup given unclear mechanism (TTE, carotid [...] months Assessment & Plan (05/27/2024 11:52 AM PERSONNEL ANALYST): Ophtho c/s ---HOB elevation, open-mouth sneezing, no [...] to be tasked with Dr Lea's team. 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 CTM BP and resume home lasix when appropriate. Restless leg syndrome 05/13/2024 Assessment & Plan (05/13/2024 2:32 PM PERSONNEL ANALYST): - Continue home ropinrole and pramipexole, gabapentin Mood disorder 05/13/2024 Assessment & Plan (05/13/2024 2:37 PM PERSONNEL ANALYST): Continue home zoloft Heart failure with mildly re duced ejection fraction (HFmrEF) 01/15/2024 Assessment & Plan (05/27/2024 11:57 AM PERSONNEL ANALYST): #HTN, chronic #HFrEF, chronic #Severe MR #Severe TI #Severe pulmonary hypertension - TTEs as above - Home O2 4L - Follows with [facility] Cardiology - Home Diltiazem, Entresto, Lasix (1/2 dose) and metoprolol continued Persistent atrial fibrillation 02/20/2022 Noncompliance with medicatio n treatment due to intermittent use of medication 12/18/2021 Morbid (severe) obesity due to excess calories 0 07/05/2021 Labile hypertension 03/23/2021 Hypotension due to drugs 03/23/2021 Coronary artery disease invo lving [place] coronary artery of [place] heart without angina pectoris 02/10/2021 Mixed hyperlipidemia 02/10/2021 Chronic obstructive pulmonary disease 02/10/2021 Chronic respiratory failure with hypoxia 021 TRAVIS on CPAP 02/10/2021 Frequent falls 02/10/2021 Resolved Problems Problem Noted Date Diagnosed Date Resolved Date COPD (chronic obstructive pulmonary disease) 5 05/23/2024 Assessment & Plan (05/13/2024 2:35 PM PERSONNEL ANALYST): - home meds: albuterol, ipratopium-albuterol Discharge planning issues 05/13/2024 Assessment & Plan (05/18/2024 2:27 PM PERSONNEL ANALYST): - 05/14: orthostatic vital signs pending, syncope [...] Department Care Team Description 08/07/2024 Results Follow-Up [facility] Cardiology [address] [place] [address] Cinda Jimenez MD Transthoracic Echo (TTE) Complete W Doppler/CF 08/06/2024 2:00 PM CDT Ancillary Procedure [facility] Medical [facility] Cardiology at [address] [place] [address] Nonrheumatic mitral valve regurgitation; Nonrheumatic tricuspid valve regurgitation 07/22/2024 9:30 AM CDT Office Visit [facility] Cardiology at [address] [place] [address] Cinda Jimenez MD Nonrheumatic mitral valve regurgitation (Primary Dx); Nonrheumatic tricuspid valve regurgitation; Mixed hyperlipidemia; Labile hypertension; Coronary artery disease involving [place] coronary artery of [place] heart without angina pectoris; Frequent falls; Persistent atrial fibrillation (HCC); Chronic anticoagulation; Chronic diastolic heart failure (HCC) 06/30/2024 10:00 AM CDT Office Visit [facility] Ophthalmology [address] [place] [address] [place] [address] Leeann Horvath MD Orbital floor (blow-out) closed fracture (HCC) (Primary Dx); Mixed type age-related cataract, both eyes 06/23/2024 11:59 AM CDT - 06/23/2024 11:59 PM CDT Hospital Encounter [facility] [address] [place] [phone] Discharge Disposition: Discharge to home or self care 06/23/2024 11:00 AM CDT Office Visit [facility] Surgery [address] [facility] 6th [place] [address] Margy Walker MD PhD Fracture (Primary Dx); Other closed intra-articular fracture of distal end of left radius, initial encounter 06/15/2024 Telephone [facility] Surgery [address] [facility] 6th [place] [address] Erica Velarde 06/09/2024 Telephone [facility] Scheduling [address] [place] [address] Nu Milian MD 05/31/2024 Telephone [facility] Ophthalmology [address] [place] [address] 1st [place] [address] Leeann Horvath MD 05/28/2024 Documentation [facility] Surgeon [address] [place] [address] Lorena Beck NP 05/27/2024 Telephone [facility] ([facility]) - [facility] ENT [address] [facility] 11th [place] [address] [place] [address] Sybil Burgess, 05/13/2024 12:53 AM PERSONNEL ANALYST - 05/27/2024 7:22 PM PERSONNEL ANALYST Hospital Encounter [address] [address] Edwige Strickland MD Vallar, Kelly Jean, MD [...] ARTHROPLASTY Medical History Medical History Date Comments [place], old CHF (congestive heart failure) (HCC) Alcohol [...] on file Legal Sex Female 4:29 PM PERSONNEL ANALYST Gender Identity Not on file Sexual Orientation Not on file Obstetrics History Last Filed Vital Signs Vital Sign Reading Time Taken Comments Blood Pressure 120/72 07/22/2024 9:18 AM CDT Pulse 81 07/22/2024 9:18 AM CDT Temperature 37.1 C (98.8 F) 05/27/2024 3:28 PM PERSONNEL ANALYST Respiratory Rate 20 05/27/2024 11:49 AM PERSONNEL ANALYST Oxygen Saturation 92% 07/22/2024 9:18 AM CDT [...] 05/08/2018, 12/24 Medical Devices Implanted Type Area Benefits Administrator Device Identifier Shelf Expiration Date Model / Serial / Lot Implantech Sheeting Silastic Non Reinforced Alliedsil [id number] Silicone 23-700-40 - [id number] Implanted:Qty: 1 on 05/19/2024 by Annemarie Lea MD at [facility] Other - see comments Right: Face Implantech 07/03/2028 23-700- 40 / / [place] Craniomaxillofacial Craniomaxillofacial Right 3d Large Implant Orbital Medpor Titan [id number] - [id number] Implanted:Qty: 1 on 05/19/2024 by Annemarie Lea MD at [facility] Other - see comments Right: Face [place] Craniomaxillofacial 08/19/2032 [id number] / / [place] Craniomaxillofacial 1.2mm 4mm Self Drill Axial Stability Lower Profile Screw Bone 56-01197 - [id number] Implanted:Qty: 1 on 05/19/2024 by Annemarie Lea MD at [facility] Other - see comments Right: Face [place] Craniomaxillofacial 56-1290 4 / / Medartis Inc Plt 2.5 Adaptive Ii Trilock Dist Rad Vol L 10h Narrow T2.0 A-4750.101 - [id number] Implanted:Qty: 1 on 05/18/2024 by Margy Walker MD PhD at [facility] Left: Wrist [employer] Inc A-4750. 101 / / [employer] 2.5mm 18mm Lock Cortical Screw Bone A-5750.18 - [id number] Implanted:Qty: 1 on 05/18/2024 by Margy Walker MD PhD at [facility] Left: Wrist [employer] A-5750. 18 / / [employer] 2.5mm 22mm Lock Cortical Screw Bone A-5750.22 - [id number] Implanted:Qty: 2 on 05/18/2024 by Margy Walker MD PhD at [facility] Left: Wrist [employer] A-5750. 22 / / [employer] 2.5mm 20mm Lock Cortical Screw Bone A-5750.20 - [id number] Implanted:Qty: 3 on 05/18/2024 by Margy Walker MD PhD at [facility] Left: Wrist [employer] A-5750. 20 / / [employer] Inc Aptus 2.5mm 14mm Lock Cortical Screw Bone A-5750.14 - [id number] Implanted:Qty: 2 on 05/18/2024 by Margy Walker MD PhD at [facility] Left: Wrist [employer] A-5750. 14 / / [employer] Aptus 2.5mm 14mm Cortical Screw Bone A-5700.14 - [id number] Implanted:Qty: 1 on 05/18/2024 by Margy Walker MD PhD at [facility] Left: Wrist [employer] A-5700. 14 / / [employer] 2.5mm 12mm Lock Cortical Screw Bone A-5750.12 - [id number] Implanted:Qty: 1 on 05/18/2024 by Margy Walker MD PhD at [facility] Left: Wrist [employer] A-5750. 12 / / Explanted Type Area Benefits Administrator Device Identifier Shelf Expiration Date Model / Serial / Lot [employer] Inc Aptus 2.5mm 16mm Cortical Screw Bone A-5700.16 - [id number] Explanted:Qty: 1 on 05/18/2024 by Margy Walker MD PhD at [facility] Left: Wrist [employer] A-5700 .16 / / [employer] Inc 2.5mm 18mm Lock Cortical Screw Bone A-5750.18 - [id number] Explanted:Qty: 1 on 05/18/2024 at [facility] Left: Wrist [employer] A-5750 .18 / [...] W VIDEO IP Routine 05/27/2024 10:35 AM PERSONNEL ANALYST EGFR Routine 05/26/2024 9:12 PM PERSONNEL ANALYST BASIC METABOLIC PANEL Routine 05/26/2024 9:12 PM PERSONNEL ANALYST CBC WITHOUT DIFFERENTIAL Routine 05/26/2024 9:12 PM PERSONNEL ANALYST MAGNESIUM Routine 05/26/2024 9:12 PM PERSONNEL ANALYST PHOSPHORUS Routine 05/26/2024 9:12 PM PERSONNEL ANALYST PEP THERAPY Routine 05/26/2024 12:01 PM PERSONNEL ANALYST PEP THERAPY Routine 05/26/2024 6:01 AM PERSONNEL ANALYST PEP THERAPY Routine 05/26/2024 12:00 AM PERSONNEL ANALYST EGFR Routine 05/25/2024 9:54 PM PERSONNEL ANALYST BASIC METABOLIC PANEL Routine 05/25/2024 9:54 PM PERSONNEL ANALYST CBC WITHOUT DIFFERENTIAL Routine 05/25/2024 9:54 PM PERSONNEL ANALYST MAGNESIUM Routine 05/25/2024 9:54 PM PERSONNEL ANALYST PHOSPHORUS Routine 05/25/2024 9:54 PM PERSONNEL ANALYST PEP THERAPY Routine 05/25/2024 6:00 PM PERSONNEL ANALYST PEP THERAPY Routine 05/25/2024 12:00 PM PERSONNEL ANALYST PEP THERAPY Routine 05/25/2024 6:01 AM PERSONNEL ANALYST PEP THERAPY Routine 05/25/2024 12:00 AM PERSONNEL ANALYST ECG 12-LEAD STAT 05/24/2024 10:55 PM PERSONNEL ANALYST EGFR Routine 05/24/2024 8:54 PM PERSONNEL ANALYST BASIC METABOLIC PANEL Routine 05/24/2024 8:54 PM PERSONNEL ANALYST CBC WITHOUT DIFFERENTIAL Routine 05/24/2024 8:54 PM PERSONNEL ANALYST MAGNESIUM Routine 05/24/2024 8:54 PM PERSONNEL ANALYST PHOSPHORUS Routine 05/24/2024 8:54 PM PERSONNEL ANALYST PEP THERAPY Routine 05/24/2024 6:00 PM PERSONNEL ANALYST PEP THERAPY Routine 05/24/2024 12:00 PM PERSONNEL ANALYST PEP THERAPY Routine 05/24/2024 6:00 AM PERSONNEL ANALYST PEP THERAPY Routine 05/24/2024 12:00 AM PERSONNEL ANALYST ECG 12-LEAD Routine 05/23/2024 11:24 PM PERSONNEL ANALYST EGFR Routine 05/23/2024 8:13 PM PERSONNEL ANALYST BASIC METABOLIC PANEL Routine 05/23/2024 8:13 PM PERSONNEL ANALYST CBC WITHOUT DIFFERENTIAL Routine 05/23/2024 8:13 PM PERSONNEL ANALYST MAGNESIUM Routine 05/23/2024 8:13 PM PERSONNEL ANALYST PHOSPHORUS Routine 05/23/2024 8:13 PM PERSONNEL ANALYST PEP THERAPY Routine 05/23/2024 6:00 PM PERSONNEL ANALYST PEP THERAPY Routine 05/23/2024 12:00 PM PERSONNEL ANALYST CRITICAL CARE Routine 05/23/2024 6:40 AM PERSONNEL ANALYST Fall, initial encounter PEP THERAPY Routine 05/23/2024 6:00 AM PERSONNEL ANALYST PEP THERAPY Routine 05/23/2024 12:01 AM PERSONNEL ANALYST POCT GLUCOSE DEVICE Routine 05/22/2024 11:10 PM PERSONNEL ANALYST EGFR Routine 05/22/2024 8:23 PM PERSONNEL ANALYST BASIC METABOLIC PANEL Routine 05/22/2024 8:23 PM PERSONNEL ANALYST CBC WITHOUT DIFFERENTIAL Routine 05/22/2024 8:23 PM PERSONNEL ANALYST MAGNESIUM Routine 05/22/2024 8:23 PM PERSONNEL ANALYST PHOSPHORUS Routine 05/22/2024 8:23 PM PERSONNEL ANALYST CRITICAL CARE Routine 05/22/2024 7:32 PM PERSONNEL ANALYST Fall, initial encounter POCT GLUCOSE DEVICE Routine 05/22/2024 6 :58 PM PERSONNEL ANALYST PEP THERAPY Routine 05/22/2024 6:00 PM PERSONNEL ANALYST IRON PROFILE W/ IBC STAT 05/22/2024 3 :44 PM PERSONNEL ANALYST POCT GLUCOSE DEVICE Routine 05/22/2024 3 :03 PM PERSONNEL ANALYST PEP THERAPY Routine 05/22/2024 12:00 PM PERSONNEL ANALYST POCT GLUCOSE DEVICE Routine 05/22/2024 10:55 AM PERSONNEL ANALYST POCT GLUCOSE DEVICE Routine 05/22/2024 7 :01 AM PERSONNEL ANALYST CRITICAL CARE Routine 05/22/2024 6:44 AM PERSONNEL ANALYST Fall, initial encounter PEP THERAPY Routine 05/22/2024 6:01 AM PERSONNEL ANALYST BLOOD GAS, ARTERIAL Routine 05/22/2024 4 :31 AM PERSONNEL ANALYST POCT GLUCOSE DEVICE Routine 05/22/2024 3 :02 AM PERSONNEL ANALYST PEP THERAPY Routine 05/22/2024 12:00 AM PERSONNEL ANALYST POCT GLUCOSE DEVICE Routine 05/21/2024 10:54 PM PERSONNEL ANALYST EGFR Routine 05/21/2024 8:54 PM PERSONNEL ANALYST BLOOD GAS, ARTERIAL Routine 05/21/2024 8 :54 PM PERSONNEL ANALYST BASIC METABOLIC PANEL Routine 05/21/2024 8:54 PM PERSONNEL ANALYST CBC WITHOUT DIFFERENTIAL Routine 05/21/2024 8:54 PM PERSONNEL ANALYST MAGNESIUM Routine 05/21/2024 8:54 PM PERSONNEL ANALYST PHOSPHORUS Routine 05/21/2024 8:54 PM PERSONNEL ANALYST XR CHEST 1 VIEW IP Routine 05/21/2024 8:36 PM PERSONNEL ANALYST CRITICAL CARE Routine 05/21/2024 8:00 PM PERSONNEL ANALYST Fall, initial encounter POCT GLUCOSE DEVICE Routine 05/21/2024 7 :43 PM PERSONNEL ANALYST PEP THERAPY Routine 05/21/2024 6:00 PM PERSONNEL ANALYST BLOOD GAS, ARTERIAL STAT 05/21/2024 3 :11 PM PERSONNEL ANALYST POCT GLUCOSE DEVICE Routine 05/21/2024 3 :10 PM PERSONNEL ANALYST EXTUBATION Routine 05/21/2024 2:27 PM PERSONNEL ANALYST PEP THERAPY Routine 05/21/2024 12:00 PM PERSONNEL ANALYST POCT GLUCOSE DEVICE Routine 05/21/2024 11:14 AM PERSONNEL ANALYST T4, FREE Routine 05/21/2024 9:07 AM PERSONNEL ANALYST AMMONIA Routine 05/21/2024 9:07 AM PERSONNEL ANALYST THYROID FUNCTION CASCADE Routine 05/21/2024 9:07 AM PERSONNEL ANALYST TRIGLYCERIDES Timed 05/21/2024 9:07 AM PERSONNEL ANALYST POCT GLUCOSE DEVICE Routine 05/21/2024 7 :24 AM PERSONNEL ANALYST CRITICAL CARE Routine 05/21/2024 7:02 AM PERSONNEL ANALYST Fall, initial encounter PEP THERAPY Routine 05/21/2024 6:01 AM PERSONNEL ANALYST POCT GLUCOSE DEVICE Routine 05/21/2024 3 :47 AM PERSONNEL ANALYST XR CHEST 1 VIEW ED Urgent/IP Urgent 05/21/2024 12:12 AM PERSONNEL ANALYST PEP THERAPY Routine 05/21/2024 12:00 AM PERSONNEL ANALYST from Last 3 Months Results * TRANSTHORACIC ECHO (TTE) COMPLETE W DOPPLER/CF WO CONTRAST (08/06/2024 2:36 PM CDT) EF Mod BP 52 % CONS SCIMAGE Anatomical Region Laterality Modality Ultrasound 08/06/2024 1:53 PM CDT Narrative 08/06/2024 3:20 PM CDT [facility] Cardiology [address], [address], [place] [address] P:[phone] P:[phone] Echocardiographic Report Patient Name: LORRAINE WALLER J [...] FINDINGS: Interpretation Site: Exam was interpreted at [facility]. Left Ventricle: Normal left ventricular systolic function. [...] fibrillation. Electronically Signed By: Dr. Nedra Burns [facility] 08/06/2024 3:19:51 PM CDT Procedure Note Nedra Burns MD - 08/06/2024 [facility] Cardiology [address], [address], [place] [address] P:[phone] P:[phone] Echocardiographic Report Patient Name: LORRAINE WALLER J [...] FINDINGS: Interpretation Site: Exam was interpreted at [facility]. Left Ventricle: Normal left ventricular systolic function. [...] fibrillation. Electronically Signed By: Dr. Nedra Burns [facility] 08/06/2024 3:19:51 PM CDT [facility] Ludin Jimenez MD CV ECHO PROCEDURES [...] Barium Swallow W Video (05/27/2024 10:35 AM PERSONNEL ANALYST) Anatomical Region Laterality Modality Head and Neck N/A Radio Fluoroscop y 05/27/2024 11:0 1 AM PERSONNEL ANALYST Impressions 05/27/2024 11:14 AM PERSONNEL ANALYST The swallowing mechanism is normal; see above [...] Serrano M.D., Ph.D Narrative 05/27/2024 11:14 AM PERSONNEL ANALYST EXAMINATION: MODIFIED BARIUM SWALLOW HISTORY: Dysphagia. TECHNIQUE: [...] Final Result * eGFR (05/26/2024 9:12 PM PERSONNEL ANALYST) eGFR 88 >=60 mL/min/1. 73 m2 Comment: [...] last reviewed 2021. Blood 05/26/2024 9:12 PM PERSONNEL ANALYST 05/26/2024 9:54 PM PERSONNEL ANALYST us Brissa Ko MD LAB BLOOD ORDERABLES Final Result Performing Organization Address City/[facility] Co de Phone Number [facility] Department [place] [address] * (ABNORMAL) CBC without differential (05/26/2024 9:12 PM PERSONNEL ANALYST) WBC 8.8 3.8 - 9.9 K/cumm Hgb 9.7(L) 11.9 - 15.5 g/dL [facility] Hct 32.8(L) 35.6 - 45.5 % [facility] Plt 209 150 - 400 K/cumm [facility] MPV 11.9 9.1 - 12.3 fL [facility] RBC 3.36(L) 3.90 - 5.20 M/cumm [facility] MCV 97.6(H) 81.3 - 96.4 fL [facility] MCH 28.9 27.1 - 33.3 pg [facility] MCHC 29.6(L) 32.3 - 35.7 g/dL [facility] RDW CV 14.2 11.1 - 14.9 % [facility] RDW SD 50.4(H) 35.7 - 48.1 fL [facility] NRBC abs 0.00 0.00 - 0.01 K/cumm [facility] Blood 05/26/2024 9:12 PM PERSONNEL ANALYST 05/26/2024 9:54 PM PERSONNEL ANALYST us Brissa Ko MD LAB BLOOD ORDERABLES Final Result Performing Organization Address City/State/[facility] Co de Phone Number [facility] [place] [address] * Phosphorus (05/26/2024 9:12 PM PERSONNEL ANALYST) [facility] Phosphorus, pl 2.8 2.3 - 4.5 mg/dL Blood 05/26/2024 9:12 PM PERSONNEL ANALYST 05/26/2024 9:54 PM PERSONNEL ANALYST Brissa Ko MD LAB BLOOD ORDERABLES Final Result Performing Organization Address [facility] Co de Phone Number [facility] [address] * Magnesium (05/26/2024 9:12 PM PERSONNEL ANALYST) [facility] Magnesium 2.0 1.4 - 2.5 mg/dL Blood 05/26/2024 9:12 PM PERSONNEL ANALYST 05/26/2024 9:54 PM PERSONNEL ANALYST Brissa Ko MD LAB BLOOD ORDERABLES Final Result Performing Organization Address [facility] Co de Phone Number [facility] [place] [address] * Basic metabolic panel (05/26/2024 9:12 PM PERSONNEL ANALYST) [facility] Sodium 143 135 - 145 mmol/L Potassium, pl 4.2 3.3 - 4.9 mmol/L [facility] Chloride 102 97 - 110 mmol/L [facility] CO2 31 22 - 32 mmol/L [facility] Anion gap 10 2 - 15 mmol/L [facility] BUN 21 6 - 25 mg/dL [facility] Creatinine 0.71 0.60 - 1.10 mg/dL [facility] Glucose 165 70 - 199 mg/dL [facility] Comment: Interpretive Data Fasting glucose >/= [...] 2022. Calcium 9.3 8.5 - 10.3 mg/dL [facility] Blood 05/26/2024 9:12 PM PERSONNEL ANALYST 05/26/2024 9:54 PM PERSONNEL ANALYST us Brissa Ko MD LAB BLOOD ORDERABLES Final Result [facility] Department [place] [address] * eGFR (05/25/2024 9:54 PM PERSONNEL ANALYST) eGFR >90 >=60 mL/min/1. 73 m2 Comment: [...] last reviewed 2021. Blood 05/25/2024 9:54 PM PERSONNEL ANALYST 05/25/2024 10:27 PM PERSONNEL ANALYST us Brissa Ko MD LAB BLOOD ORDERABLES Final Result Performing Organization Address [facility] Co de Phone Number [facility] Department [place] [address] * (ABNORMAL) CBC without differential (05/25/2024 9:54 PM PERSONNEL ANALYST) Pathologist [facility] WBC 6.4 3.8 - 9.9 K/cumm Hgb 9.4(L) 11.9 - 15.5 g/dL [facility] Hct 31.2(L) 35.6 - 45.5 % [facility] Plt 170 150 - 400 K/cumm [facility] MPV 11.5 9.1 - 12.3 fL [facility] RBC 3.22(L) 3.90 - 5.20 M/cumm [facility] MCV 96.9(H) 81.3 - 96.4 fL [facility] MCH 29.2 27.1 - 33.3 pg [facility] MCHC 30.1(L) 32.3 - 35.7 g/dL [facility] RDW CV 14.3 11.1 - 14.9 % [facility] RDW SD 50.5(H) 35.7 - 48.1 fL [facility] NRBC abs 0.00 0.00 - 0.01 K/cumm [facility] Blood 05/25/2024 9:54 PM PERSONNEL ANALYST 05/25/2024 10:27 PM PERSONNEL ANALYST us Brissa Ko MD LAB BLOOD ORDERABLES Final Result Performing Organization Address [facility] Co de Phone Number [facility] Department [place] [address] * Phosphorus (05/25/2024 9:54 PM PERSONNEL ANALYST) Pathologist [facility] Phosphorus, pl 3.5 2.3 - 4.5 mg/dL Blood 05/25/2024 9:54 PM PERSONNEL ANALYST 05/25/2024 10:27 PM PERSONNEL ANALYST Brissa Ko MD LAB BLOOD ORDERABLES Final Result [facility] [place] [address] * Magnesium (05/25/2024 9:54 PM PERSONNEL ANALYST) [facility] Magnesium 2.1 1.4 - 2.5 mg/dL Blood 05/25/2024 9:54 PM PERSONNEL ANALYST 05/25/2024 10:27 PM PERSONNEL ANALYST Brissa Ko MD LAB BLOOD ORDERABLES Final Result Performing Organization Address [facility] de Phone Number [facility] [place] [address] * (ABNORMAL) Basic metabolic panel (05/25/2024 9:54 PM PERSONNEL ANALYST) [facility] Sodium 145 135 - 145 mmol/L Potassium, pl 4.4 3.3 - 4.9 mmol/L [facility] Chloride 105 97 - 110 mmol/L [facility] CO2 33(H) 22 - 32 mmol/L [facility] Anion gap 7 2 - 15 mmol/L [facility] BUN 13 6 - 25 mg/dL [facility] Creatinine 0.66 0.60 - 1.10 mg/dL [facility] Glucose 112 70 - 199 mg/dL [facility] Comment: Interpretive Data Fasting glucose >/= [...] 2022. Calcium 9.2 8.5 - 10.3 mg/dL [facility] Blood 05/25/2024 9:54 PM PERSONNEL ANALYST 05/25/2024 10:27 PM PERSONNEL ANALYST us Brissa Ko MD LAB BLOOD ORDERABLES Final Result [facility] Department [place] [address] * ECG 12 lead (05/24/2024 10:55 PM PERSONNEL ANALYST) Ventricular Rate EKG/Min 99 BPM [facility] QRS-Interval (MSEC) 86 ms [facility] QT-Interval (MSEC) 364 ms [facility] QTc 467 ms [facility] R [place] 91 degrees [facility] T [place] 160 degrees [facility] Diagnosis Atrial fibrillation/fl utter Rightward axis Low voltage QRS Cannot rule out Anterior infarct , age undetermined ST & T wave abnormality, consider lateral ischemia Abnormal ECG When compared with ECG of 23-MAY-2024 23:24, (unconfirmed) T wave inversion no longer evident in Anterior leads Confirmed by GABO PIEDRA M.D ([id number]) on 05/25/2024 3:55:52 PM [facility] 05/24/2024 10:5 5 PM PERSONNEL ANALYST 05/25/2024 3:55 PM PERSONNEL ANALYST us Brissa Ko MD ECG ORDERABLES Final Resul t [facility] * eGFR (05/24/2024 8:54 PM PERSONNEL ANALYST) eGFR 90 >=60 mL/min/1. 73 m2 Comment: [...] last reviewed 2021. Blood 05/24/2024 8:54 PM PERSONNEL ANALYST 05/24/2024 9:30 PM PERSONNEL ANALYST us Brissa Ko MD LAB BLOOD ORDERABLES Final Result [facility] Department [place] [address] * (ABNORMAL) CBC without differential (05/24/2024 8:54 PM PERSONNEL ANALYST) WBC 7.1 3.8 - 9.9 K/cumm Hgb 9.1(L) 11.9 - 15.5 g/dL [facility] Hct 29.6(L) 35.6 - 45.5 % [facility] Plt 162 150 - 400 K/cumm [facility] MPV 11.4 9.1 - 12.3 fL [facility] RBC 3.10(L) 3.90 - 5.20 M/cumm [facility] MCV 95.5 81.3 - 96.4 fL [facility] MCH 29.4 27.1 - 33.3 pg [facility] MCHC 30.7(L) 32.3 - 35.7 g/dL [facility] RDW CV 14.5 11.1 - 14.9 % [facility] RDW SD 50.9(H) 35.7 - 48.1 fL [facility] NRBC abs 0.00 0.00 - 0.01 K/cumm [facility] Blood 05/24/2024 8:54 PM PERSONNEL ANALYST 05/24/2024 9:31 PM PERSONNEL ANALYST Brissa Ko MD LAB BLOOD ORDERABLES Final Result [facility] [place] [address] * Phosphorus (05/24/2024 8:54 PM PERSONNEL ANALYST) [facility] Phosphorus, pl 2.5 2.3 - 4.5 mg/dL Blood 05/24/2024 8:54 PM PERSONNEL ANALYST 05/24/2024 9:30 PM PERSONNEL ANALYST Brissa Ko MD LAB BLOOD ORDERABLES Final Result Performing Organization Address [facility] Co de Phone Number [facility] [place] [address] * Magnesium (05/24/2024 8:54 PM PERSONNEL ANALYST) [facility] Magnesium 2.0 1.4 - 2.5 mg/dL Blood 05/24/2024 8:54 PM PERSONNEL ANALYST 05/24/2024 9:30 PM PERSONNEL ANALYST Brissa Ko MD LAB BLOOD ORDERABLES Final Result Performing Organization Address [facility] de Phone Number [facility] Department [place] [address] * (ABNORMAL) Basic metabolic panel (05/24/2024 8:54 PM PERSONNEL ANALYST) [facility] Sodium 146(H) 135 - 145 mmol/L Potassium, pl 4.8 3.3 - 4.9 mmol/L [facility] Chloride 108 97 - 110 mmol/L [facility] CO2 30 22 - 32 mmol/L [facility] Anion gap 8 2 - 15 mmol/L [facility] BUN 19 6 - 25 mg/dL [facility] Creatinine 0.70 0.60 - 1.10 mg/dL [facility] Glucose 104 70 - 199 mg/dL [facility] Comment: Interpretive Data Fasting glucose >/= [...] 2022. Calcium 9.1 8.5 - 10.3 mg/dL [facility] Blood 05/24/2024 8:54 PM PERSONNEL ANALYST 05/24/2024 9:30 PM PERSONNEL ANALYST us Brissa Ko MD LAB BLOOD ORDERABLES Final Result [facility] Department [place] [address] * ECG 12 lead (05/23/2024 11:24 PM PERSONNEL ANALYST) Ventricular Rate EKG/Min 88 BPM [facility] QRS-Interval (MSEC) 84 ms [facility] QT-Interval (MSEC) 364 ms [facility] QTc 440 ms [facility] R [place] 96 degrees [facility] T [place] 148 degrees [facility] Diagnosis Atrial fibrillation/flu tter Rightward axis Low voltage QRS ST & T wave abnormality, consider anterolateral ischemia Abnormal ECG When compared with ECG of 15-MAY-2024 07:03, ST now depressed in Lateral leads Nonspecific T wave abnormality, improved in Inferior leads T wave inversion now evident in Anterolateral leads QT has shortened Confirmed by GABO PIEDRA M.D ([id number]) on 05/26/2024 11:12:20 AM [facility] 05/23/2024 11:2 4 PM PERSONNEL ANALYST 05/26/2024 11:12 AM PERSONNEL ANALYST us Brissa Ko MD ECG ORDERABLES Final Resul t [facility] * eGFR (05/23/2024 8:13 PM PERSONNEL ANALYST) [facility] eGFR 80 >=60 mL/min/1. 73 m2 Comment: [...] last reviewed 2021. Blood 05/23/2024 8:13 PM PERSONNEL ANALYST 05/23/2024 9:00 PM PERSONNEL ANALYST Brissa Ko MD LAB BLOOD ORDERABLES Final Result [facility] Department [place] [address] * (ABNORMAL) CBC without differential (05/23/2024 8:13 PM PERSONNEL ANALYST) [facility] WBC 7.3 3.8 - 9.9 K/cumm Hgb 8.7(L) 11.9 - 15.5 g/dL [facility] Hct 29.1(L) 35.6 - 45.5 % [facility] Plt 153 150 - 400 K/cumm [facility] MPV 11.5 9.1 - 12.3 fL [facility] RBC 3.00(L) 3.90 - 5.20 M/cumm [facility] MCV 97.0(H) 81.3 - 96.4 fL [facility] MCH 29.0 27.1 - 33.3 pg [facility] MCHC 29.9(L) 32.3 - 35.7 g/dL [facility] RDW CV 14.6 11.1 - 14.9 % [facility] RDW SD 52.3(H) 35.7 - 48.1 fL [facility] NRBC abs 0.00 0.00 - 0.01 K/cumm [facility] Blood 05/23/2024 8:13 PM PERSONNEL ANALYST 05/23/2024 9:03 PM PERSONNEL ANALYST us Brissa Ko MD LAB BLOOD ORDERABLES Final Result [facility] [place] [address] * (ABNORMAL) Phosphorus (05/23/2024 8:13 PM PERSONNEL ANALYST) Phosphorus, pl 2.2(L) 2.3 - 4.5 mg/dL Blood 05/23/2024 8:13 PM PERSONNEL ANALYST 05/23/2024 9:00 PM PERSONNEL ANALYST us Brissa Ko MD LAB BLOOD ORDERABLES Final Result Performing Organization Address [facility] Co de Phone Number [facility] [place] [address] * Magnesium (05/23/2024 8:13 PM PERSONNEL ANALYST) Magnesium 2.0 1.4 - 2.5 mg/dL Blood 05/23/2024 8:13 PM PERSONNEL ANALYST 05/23/2024 9:00 PM PERSONNEL ANALYST Brissa Ko MD LAB BLOOD ORDERABLES Final Result Performing Organization Address [facility] Co de Phone Number [facility] [place] [address] * Basic metabolic panel (05/23/2024 8:13 PM PERSONNEL ANALYST) Sodium 145 135 - 145 mmol/L Potassium, pl 4.2 3.3 - 4.9 mmol/L [facility] Chloride 106 97 - 110 mmol/L [facility] CO2 32 22 - 32 mmol/L [facility] Anion gap 7 2 - 15 mmol/L [facility] BUN 20 6 - 25 mg/dL [facility] Creatinine 0.77 0.60 - 1.10 mg/dL [facility] Glucose 148 70 - 199 mg/dL [facility] Comment: Interpretive Data Fasting glucose >/= [...] 2022. Calcium 8.6 8.5 - 10.3 mg/dL [facility] Blood 05/23/2024 8:13 PM PERSONNEL ANALYST 05/23/2024 9:00 PM PERSONNEL ANALYST Brissa Ko MD LAB BLOOD ORDERABLES Final Result [facility] Department [place] [address] * Critical Care (05/23/2024 6:40 AM PERSONNEL ANALYST) Narrative Kelvin Delgado MD - 05/23/2024 6:40 AM PERSONNEL ANALYST Kelvin Delgado MD 05/23/2024 5:18 PM Critical [...] plan with the patient's team and other medical/senior recruitment consultant staff. This time was in addition to and separate from care provided by other practitioners on this day of service. I spent time reviewing and interpreting data from bedside monitors, laboratory results, and imaging and I spent time documenting in the medical record us Olga Meehan ASSEMBLY INSPECTOR IN CLINIC/BEDSIDE O RDERABLES Final Result * POCT glucose (05/22/2024 11:10 PM PERSONNEL ANALYST) Glucose, POC 98 70 - 199 mg/dL Blood 05/22/2024 11:1 0 PM PERSONNEL ANALYST 05/22/2024 11:10 PM PERSONNEL ANALYST us Brissa Ko MD LAB POCT ORDERABLES - DEVIC E Final Result [facility] Department [place] [address] * eGFR (05/22/2024 8:23 PM PERSONNEL ANALYST) eGFR 71 >=60 mL/min/1. 73 m2 Comment: [...] last reviewed 2021. Blood 05/22/2024 8:23 PM PERSONNEL ANALYST 05/22/2024 8:36 PM PERSONNEL ANALYST us Brissa Ko MD LAB BLOOD ORDERABLES Final Result [facility] Department [place] [address] * (ABNORMAL) CBC without differential (05/22/2024 8:23 PM PERSONNEL ANALYST) Pathologist [facility] WBC 7.0 3.8 - 9.9 K/cumm Hgb 8.9(L) 11.9 - 15.5 g/dL [facility] Hct 29.2(L) 35.6 - 45.5 % [facility] Plt 158 150 - 400 K/cumm [facility] MPV 11.0 9.1 - 12.3 fL [facility] RBC 3.03(L) 3.90 - 5.20 M/cumm [facility] MCV 96.4 81.3 - 96.4 fL [facility] MCH 29.4 27.1 - 33.3 pg [facility] MCHC 30.5(L) 32.3 - 35.7 g/dL [facility] RDW CV 14.8 11.1 - 14.9 % [facility] RDW SD 52.5(H) 35.7 - 48.1 fL [facility] NRBC abs 0.00 0.00 - 0.01 K/cumm [facility] Blood 05/22/2024 8:23 PM PERSONNEL ANALYST 05/22/2024 8:36 PM PERSONNEL ANALYST us Brissa Ko MD LAB BLOOD ORDERABLES Final Result [facility] [place] [address] * Phosphorus (05/22/2024 8:23 PM PERSONNEL ANALYST) Pathologist [facility] Phosphorus, pl 3.0 2.3 - 4.5 mg/dL Blood 05/22/2024 8:23 PM PERSONNEL ANALYST 05/22/2024 8:36 PM PERSONNEL ANALYST Brissa Ko MD LAB BLOOD ORDERABLES Final Result Performing Organization Address [facility] Co de Phone Number [facility] [place] [address] * Magnesium (05/22/2024 8:23 PM PERSONNEL ANALYST) [facility] Magnesium 2.2 1.4 - 2.5 mg/dL Blood 05/22/2024 8:23 PM PERSONNEL ANALYST 05/22/2024 8:36 PM PERSONNEL ANALYST Brissa Ko MD LAB BLOOD ORDERABLES Final Result Performing Organization Address [facility] de Phone Number [facility] [place] [address] * (ABNORMAL) Basic metabolic panel (05/22/2024 8:23 PM PERSONNEL ANALYST) Pathologist [facility] Sodium 146(H) 135 - 145 mmol/L Potassium, pl 4.1 3.3 - 4.9 mmol/L [facility] Chloride 106 97 - 110 mmol/L [facility] CO2 33(H) 22 - 32 mmol/L [facility] Anion gap 7 2 - 15 mmol/L [facility] BUN 26(H) 6 - 25 mg/dL [facility] Creatinine 0.85 0.60 - 1.10 mg/dL [facility] Glucose 122 70 - 199 mg/dL [facility] Comment: Interpretive Data Fasting glucose >/= [...] 2022. Calcium 8.2(L) 8.5 - 10.3 mg/dL [facility] Blood 05/22/2024 8:23 PM PERSONNEL ANALYST 05/22/2024 8:36 PM PERSONNEL ANALYST Brissa Ko MD LAB BLOOD ORDERABLES Final Result [facility] Department [place] [address] * Critical Care (05/22/2024 7:32 PM PERSONNEL ANALYST) Narrative Murtaza Garcia MD - 05/22/2024 7:32 PM PERSONNEL ANALYST Murtaza Garcia MD 05/23/2024 6:19 AM Critical [...] plan with the patient's team and other medical/senior recruitment consultant staff. This time was in addition to and separate from care provided by other practitioners on this day of service. Preston HINOJOSA IN CLINIC/BEDSI DE ORDERABLES Final Result * POCT glucose (05/22/2024 6:58 PM PERSONNEL ANALYST) Glucose, POC 115 70 - 199 mg/dL Blood 05/22/2024 6:58 PM PERSONNEL ANALYST 05/22/2024 6:58 PM PERSONNEL ANALYST Brissa Ko MD LAB POCT ORDERABLES - DEVIC E Final Result [facility] Department [place] [address] * (ABNORMAL) Iron profile w/ IBC (05/22/2024 3:44 PM PERSONNEL ANALYST) [facility] Iron 29(L) 35 - 145 mcg/dL TIBC 258 250 - 400 mcg/dL [facility] Transferrin saturation 11(L) 20 - 50 % [facility] Blood 05/22/2024 3:44 PM PERSONNEL ANALYST 05/22/2024 4:15 PM PERSONNEL ANALYST Earnestine Kelly MD LAB BLOOD [place] [address] * POCT glucose (05/22/2024 3:03 PM PERSONNEL ANALYST) [facility] Glucose, POC 111 70 - 199 mg/dL Blood 05/22/2024 3:03 PM PERSONNEL ANALYST 05/22/2024 3:03 PM PERSONNEL ANALYST Brissa Ko MD LAB POCT ORDERABLES - DEVIC E Final Result Performing Organization Address City/[facility]/ZIP Co de Phone Number [facility] [place] [address] * POCT glucose (05/22/2024 10:55 AM PERSONNEL ANALYST) [facility] Glucose, POC 130 70 - 199 mg/dL Blood 05/22/2024 10:5 5 AM PERSONNEL ANALYST 05/22/2024 10:55 AM PERSONNEL ANALYST Brissa Ko MD LAB POCT ORDERABLES - DEVIC E Final Result Performing Organization Address [facility]/ZIP Co de Phone Number [facility] [place] [address] * POCT glucose (05/22/2024 7:01 AM PERSONNEL ANALYST) Glucose, POC 128 70 - 199 mg/dL Blood 05/22/2024 7:01 AM PERSONNEL ANALYST 05/22/2024 7:01 AM PERSONNEL ANALYST Brissa Ko MD LAB POCT ORDERABLES - DEVIC E Final Result [facility] Department [place] [address] * Critical Care (05/22/2024 6:44 AM PERSONNEL ANALYST) Narrative Earnestine Kelly MD - 05/22/2024 6:44 AM PERSONNEL ANALYST Earnestine Kelly MD 05/22/2024 6:05 PM Critical [...] plan with the ICU team and other medical/senior recruitment consultant staff, making frequent assessments and decisions [...] (ABNORMAL) Blood gas, arterial (05/22/2024 4:31 AM PERSONNEL ANALYST) Pathologist [facility] pH, Art 7.44 7.35 - 7.45 PCO2, Arterial 49(H) 35 - 45 mmHg [facility] PO2, Arterial 136(H) 83 - 108 mmHg [facility] HCO3 Art (Calculated) 34(H) 20 - 30 mmol/L [facility] BE, art 8 mmol/L [facility] Comment: Interpretive Data No Reference Range Established Current Interpretive Data was last revised on 2017 O2 Sat Art (Measured) 100(H) 90 - 95 % [facility] Blood 05/22/2024 4:31 AM PERSONNEL ANALYST 05/22/2024 4:37 AM PERSONNEL ANALYST Lynsey Otoole NP LAB BLOOD ORDER TEDDY Final Result Performing Organization Address [facility] Co de Phone Number [facility] [place] [employer] [place] [address] * POCT glucose (05/22/2024 3:02 AM PERSONNEL ANALYST) Glucose, POC 149 70 - 199 mg/dL Blood 05/22/2024 3:02 AM PERSONNEL ANALYST 05/22/2024 3:02 AM PERSONNEL ANALYST us Brissa Ko MD LAB POCT ORDERABLES - DEVIC E Final Result Performing Organization Address [facility] Co de Phone Number [facility] [place] [address] * POCT glucose (05/21/2024 10:54 PM PERSONNEL ANALYST) Glucose, POC 122 70 - 199 mg/dL Blood 05/21/2024 10:5 4 PM PERSONNEL ANALYST 05/21/2024 10:54 PM PERSONNEL ANALYST us Brissa Ko MD LAB POCT ORDERABLES - DEVIC E Final Result Performing Organization Address [facility] Co de Phone Number [facility] [place] [address] * eGFR (05/21/2024 8:54 PM PERSONNEL ANALYST) Pathologist [facility] eGFR 71 >=60 mL/min/1. 73 m2 Comment: [...] last reviewed 2021. Blood 05/21/2024 8:54 PM PERSONNEL ANALYST 05/21/2024 9:16 PM PERSONNEL ANALYST Brissa Ko MD LAB BLOOD ORDERABLES Final Result [facility] Department [place] [address] * (ABNORMAL) CBC without differential (05/21/2024 8:54 PM PERSONNEL ANALYST) [facility] WBC 6.7 3.8 - 9.9 K/cumm Hgb 9.5(L) 11.9 - 15.5 g/dL [facility] Hct 29.7(L) 35.6 - 45.5 % [facility] Plt 145(L) 150 - 400 K/cumm [facility] MPV 10.9 9.1 - 12.3 fL [facility] RBC 3.14(L) 3.90 - 5.20 M/cumm [facility] MCV 94.6 81.3 - 96.4 fL [facility] MCH 30.3 27.1 - 33.3 pg [facility] MCHC 32.0(L) 32.3 - 35.7 g/dL [facility] RDW CV 14.8 11.1 - 14.9 % [facility] RDW SD 51.6(H) 35.7 - 48.1 fL [facility] NRBC abs 0.00 0.00 - 0.01 K/cumm [facility] Blood 05/21/2024 8:54 PM PERSONNEL ANALYST 05/21/2024 9:16 PM PERSONNEL ANALYST Brissa Ko MD LAB BLOOD ORDERABLES Final Result [facility] [place] [place] [address] * Phosphorus (05/21/2024 8:54 PM PERSONNEL ANALYST) Pathologist [facility] Phosphorus, pl 2.5 2.3 - 4.5 mg/dL Blood 05/21/2024 8:54 PM PERSONNEL ANALYST 05/21/2024 9:16 PM PERSONNEL ANALYST Brissa Ko MD LAB BLOOD ORDERABLES Final Result Performing Organization Address [facility] Co de Phone Number [facility] Department [place] [employer] [place] [address] * Magnesium (05/21/2024 8:54 PM PERSONNEL ANALYST) [facility] Magnesium 1.9 1.4 - 2.5 mg/dL Blood 05/21/2024 8:54 PM PERSONNEL ANALYST 05/21/2024 9:16 PM PERSONNEL ANALYST Brissa Ko MD LAB BLOOD ORDERABLES Final Result Performing Organization Address [facility] Co de Phone Number [facility] [place] [address] * (ABNORMAL) Blood gas, arterial (05/21/2024 8:54 PM PERSONNEL ANALYST) pH, Art 7.45 7.35 - 7.45 PCO2, Arterial 52(H) 35 - 45 mmHg [facility] PO2, Arterial 63(L) 83 - 108 mmHg [facility] HCO3 Art (Calculated) 37(H) 20 - 30 mmol/L [facility] BE, art 10 mmol/L [facility] Comment: Interpretive Data No Reference Range Established Current Interpretive Data was last revised on 2017 O2 Sat Art (Measured) 92 90 - 95 % [facility] Blood 05/21/2024 8:54 PM PERSONNEL ANALYST 05/21/2024 9:09 PM PERSONNEL ANALYST Brissa Ko MD LAB BLOOD ORDERABLES Final Result [facility] Department [place] [address] * (ABNORMAL) Basic metabolic panel (05/21/2024 8:54 PM PERSONNEL ANALYST) [facility] Sodium 143 135 - 145 mmol/L Potassium, pl 3.5 3.3 - 4.9 mmol/L [facility] Chloride 101 97 - 110 mmol/L [facility] CO2 35(H) 22 - 32 mmol/L [facility] Anion gap 7 2 - 15 mmol/L [facility] BUN 19 6 - 25 mg/dL [facility] Creatinine 0.85 0.60 - 1.10 mg/dL [facility] Glucose 125 70 - 199 mg/dL [facility] Comment: Interpretive Data Fasting glucose >/= [...] 2022. Calcium 8.7 8.5 - 10.3 mg/dL [facility] Blood 05/21/2024 8:54 PM PERSONNEL ANALYST 05/21/2024 9:16 PM PERSONNEL ANALYST us Brissa Ko MD LAB BLOOD ORDERABLES Final Result [facility] Department [place] [address] * XR Chest 1 View (05/21/2024 8:36 PM PERSONNEL ANALYST) Anatomical Region Laterality Modality Body, Chest N/A Computed Radiogr aphy 05/22/2024 9:45 AM PERSONNEL ANALYST Impressions 05/22/2024 10:11 AM PERSONNEL ANALYST Comparison is made to radiograph dated 05/20/2024. [...] David Hogan M.D. Narrative 05/22/2024 10:11 AM PERSONNEL ANALYST EXAMINATION: 1 view chest radiograph Procedure Note [...] Result * Critical Care (05/21/2024 8:00 PM PERSONNEL ANALYST) Narrative Renay Weber MD - 05/21/2024 8:00 PM PERSONNEL ANALYST Renay Weber MD 05/28/2024 11:57 PM Critical [...] plan with the ICU team and other medical/senior recruitment consultant staff, making frequent assessments and decisions [...] Result * POCT glucose (05/21/2024 7:43 PM PERSONNEL ANALYST) Glucose, POC 150 70 - 199 mg/dL Blood 05/21/2024 7:43 PM PERSONNEL ANALYST 05/21/2024 7:43 PM PERSONNEL ANALYST Brissa Ko MD LAB POCT ORDERABLES - DEVIC E Final Result [facility] [place] [address] * (ABNORMAL) Blood gas, arterial (05/21/2024 3:11 PM PERSONNEL ANALYST) pH, Art 7.44 7.35 - 7.45 PCO2, Arterial 50(H) 35 - 45 mmHg [facility] PO2, Arterial 157(H) 83 - 108 mmHg [facility] HCO3 Art (Calculated) 35(H) 20 - 30 mmol/L [facility] BE, art 8 mmol/L [facility] Comment: Interpretive Data No Reference Range Established Current Interpretive Data was last revised on 2017 O2 Sat Art (Measured) 100(H) 90 - 95 % [facility] Blood 05/21/2024 3:11 PM PERSONNEL ANALYST 05/21/2024 3:16 PM PERSONNEL ANALYST us Sebastian HINOJOSA LAB BLOOD ORDERABLES Fi nal Result Performing Organization Address [facility] Co de Phone Number [facility] [place] [place] [address] * POCT glucose (05/21/2024 3:10 PM PERSONNEL ANALYST) Glucose, POC 135 70 - 199 mg/dL Blood 05/21/2024 3:10 PM PERSONNEL ANALYST 05/21/2024 3:10 PM PERSONNEL ANALYST Brissa Ko MD LAB POCT ORDERABLES - DEVIC E Final Result Performing Organization Address [facility] Co de Phone Number [facility] [place] [place] [address] * POCT glucose (05/21/2024 11:14 AM PERSONNEL ANALYST) Glucose, POC 122 70 - 199 mg/dL Blood 05/21/2024 11:1 4 AM PERSONNEL ANALYST 05/21/2024 11:14 AM PERSONNEL ANALYST Brissa Ko MD LAB POCT ORDERABLES - DEVIC E Final Result Performing Organization Address [facility] Co de Phone Number [facility] [place] [address] * (ABNORMAL) Thyroid Function [place] (05/21/2024 9:07 AM PERSONNEL ANALYST) TSH 5.20(H) 0.30 - 4.20 mcIUnit/mL Blood 05/21/2024 9:07 AM PERSONNEL ANALYST 05/21/2024 9:28 AM PERSONNEL ANALYST Sebastian HINOJOSA LAB BLOOD ORDERABLES Fi nal Result Performing Organization Address [facility] de Phone Number [facility] [place] [address] * Triglycerides (05/21/2024 9:07 AM PERSONNEL ANALYST) Triglycerides 139 <=149 mg/dL Comment: Interpretive Data [...] revised on 2017. Blood 05/21/2024 9:07 AM PERSONNEL ANALYST 05/21/2024 9:28 AM PERSONNEL ANALYST Narrative [facility] - 05/21/2024 9:56 AM PERSONNEL ANALYST While on propofol infusion. Preston HINOJOSA LAB BLOOD ORDER TEDDY Final Result Performing Organization Address [facility] de Phone Number [facility] [place] [address] * T4, free (05/21/2024 9:07 AM PERSONNEL ANALYST) Free T4 1.35 0.90 - 1.70 ng/dL Blood 05/21/2024 9:07 AM PERSONNEL ANALYST 05/21/2024 9:28 AM PERSONNEL ANALYST Narrative [facility] - 05/21/2024 10:34 AM PERSONNEL ANALYST This test was reflexed from a TSH result. Sebastian HINOJOSA LAB BLOOD ORDERABLES Ed ited Result - Final Performing Organization Address [facility] de Phone Number [facility] [place] [address] * Ammonia (05/21/2024 9:07 AM PERSONNEL ANALYST) Ammonia 27 <=50 mcmol/L Blood 05/21/2024 9:07 AM PERSONNEL ANALYST 05/21/2024 9:29 AM PERSONNEL ANALYST Sebastian HINOJOSA LAB BLOOD ORDERABLES Fi nal Result Performing Organization Address [facility] de Phone Number [facility] Department [place] [address] * POCT glucose (05/21/2024 7:24 AM PERSONNEL ANALYST) Glucose, POC 138 70 - 199 mg/dL Blood 05/21/2024 7:24 AM PERSONNEL ANALYST 05/21/2024 7:24 AM PERSONNEL ANALYST Brissa Ko MD LAB POCT ORDERABLES - DEVIC E Final Result Performing Organization Address [facility] Co de Phone Number [facility] Department [place] [address] * Critical Care (05/21/2024 7:02 AM PERSONNEL ANALYST) Narrative Earnestine Kelly MD - 05/21/2024 7:02 AM PERSONNEL ANALYST Earnestine Kelly MD 05/22/2024 3:03 PM Critical [...] plan with the ICU team and other medical/senior recruitment consultant staff, making frequent assessments and decisions [...] Result * POCT glucose (05/21/2024 3:47 AM PERSONNEL ANALYST) Glucose, POC 161 70 - 199 mg/dL Blood 05/21/2024 3:47 AM PERSONNEL ANALYST 05/21/2024 3:47 AM PERSONNEL ANALYST us Brissa Ko MD LAB POCT ORDERABLES - DEVIC E Final Result [facility] Department [place] [address] * XR Chest 1 View (05/21/2024 12:12 AM PERSONNEL ANALYST) Anatomical Region Laterality Modality Body, Chest N/A Computed Radiogr aphy 05/21/2024 8:02 AM PERSONNEL ANALYST Impressions 05/21/2024 8:02 AM PERSONNEL ANALYST Comparison is made to radiograph of 05/20/2024 [...] Nestor Seth M.D. Narrative 05/21/2024 8:02 AM PERSONNEL ANALYST EXAMINATION: 1 view chest radiograph Procedure Note [...] [facility] IMG XR PROCEDURES F inal Result from Last 3 Months Insurance MEDICARE MEDICARE [facility] MEDICARE SUPPLEMENT MEDICARE [facility] MEDICARE SUPPLEMENT Advance Directives For more information, please contact: [phone] * Full Code (Latest Code Status on File) Date Activated Date Inactivated Comments 05/13/2024 8:42 PM 05/27/2024 11:27 PM Care Teams Diamond Powder Mixer Relationship Specialty Start Date End Date Meagan Yusuf MD PCP - General Family Medicine 05/22/23 Annemarie Lea MD [address] [place] [address] Consulting Physician Otolaryngology 05/27/24 Margy Walker MD PhD [address] [place] [address] Consulting Physician Plastic Surgery 05/27/24 Geraldine Barbosa NP [address] [place] [address] Nurse Practitioner Neurosurgery 05/27/24
--- OUTSIDE RECORDS SUMMARY | 2024-08-18 09:45 | XMS_ITS | Encounter Summary ---
Author Organization [email or web address] Address [address] [place] [address] Care Team Providers Care Informatics Developer Name Role Phone Juan David Yusuf MD Primary Care Provider [phone] Encounter Details Date Type Department Care Team (Late st Contact Info) Description 04/01/1999 Outpatient Historical [facility] Isatu Grant MD Social History Tobacco Use Types Packs/Day Years Used Date Smoking Tobacco: Never Assessed Comments Unknown Sex and Gender Information Value Date Recorded Sex Assigned at Not on file Legal Sex Female 3:33 AM PRIVATE INQUIRY AGENT Gender Identity Not on file Sexual Orientation Not on file documented as of this encounter Plan of Treatment Not on file documented as of this encounter Visit Diagnoses Not on filedocumented in this encounter Care Teams Informatics Developer Relationship Specialty Start Date End Date Juan David Yusuf MD PCP - General Family Practice 01/14/18 documented as of this encounter
--- OUTSIDE RECORDS SUMMARY | 2024-08-18 09:45 | XMS_ITS | Continuity of Care Document ---
Author Organization [facility] Address [address] [place] [address] [address] [place] [address] Phone Care Team Providers Care Foreman/Project Manager Name Role Phone Guerrero Cho MD [...] Copied on Encounter OFFICE/OUTPA TIENT VISIT EST [facility], [address] [place] [address], [address], tel:[phone] [facility] Chaitanya Status post reverse total arthroplasty of right shoulderAfter care following right shoulder joint replacement surgery 9 Marquis Masters. [address] [facility] [address], [place], [place], [id number] . tel: [phone] [facility], [address] [place] [address], [address], tel:[phone] [facility] Chaitanya s/p reverse right shoulder (chief complaint) Status post reverse total arthroplasty of right shoulder 8 Marquis Masters. [address], [place], [place], [id number] . tel: [phone] [facility], [address] [place] [address], [address], tel:[phone] [facility] Other specific arthropathies , not elsewhere classified, right shoulder 8 Marquis Masters. [address] [facility] [address], [place], [place], [id number] . tel: [phone] OFFICE/OUTPA TIENT VISIT EST [facility], [address] [place] [address], [address], [phone] [facility] Complete tear of right rotator cuffPrimary osteoarthriti s of right shoulder 0 8 Marquis Masters. [address], [place], [place], [id number] . tel: [phone] OFFICE/OUTPA TIENT VISIT EST [facility], [address] [place] [address], [address], [place] tel:[phone] [facility] [place] RT SHOULDER INJURY 7\ (chief complaint) Body mass index (BMI) 40.0-44.9, adultComplete tear of right rotator cuff 8 Sangita Abhinav. [address] [place] [address], [id number] . tel: [phone] Referring Provider: Juan David Patiño, [address] [place], [place], [address]. tel:[phone] OFFICE/OUTPA TIENT VISIT [facility], [address] [place] [address], [address], [place] tel:[phone] [facility] History of total right hip arthroplasty 8 Sangita La. [address] [place] [address], [id number] . tel: [phone] Referring Provider: Meagan Wren, PERMANENTLY CLOSED [address] [place], [place], [address]. tel:[phone] [facility], [address] [place] [address], [address], [place] tel:[phone] [facility] History of total right hip arthroplasty 7 Sangita La. [address] [place] [address], [id number] . tel: [phone] [facility], [address] [place] [address], [address], [place] tel:[phone] [facility] [place] R YANIRA 11/08/16 (chief complaint) History of total right hip arthroplasty 7 Michael Lemos. [address] [place] [address] [address], [place], [place], [id number] . tel: [phone] [facility], [address] [place] [address], [address], [phone] [facility] R YANIRA 11/08/16 (chief complaint) History of total right hip arthroplasty Sep-0 7 Michael Lemos. [address] [place] [address] [address], [place], [place], [id number] . tel: [phone] [facility], [address] [place] [address], [address], [place] tel:[phone] [facility] No Information Sangita La. [address] [place] [address], [id number] . tel: [phone] OFFICE/OUTPA TIENT VISIT EST [facility], [address] [place] [address], [address], tel:[phone] [facility] Follow Up of after right hip mri (chief complaint) Primary osteoarthriti s of right hipHip abductor tendinitis, right 7 Sangita La. [address] [place] [address], [id number] . tel: [phone] OFFICE/OUTPA TIENT VISIT [facility], [address] [place] [address], [address], [place] [phone] [facility] R hip (chief complaint) Body mass index (BMI) 38.0-38.9, adultPrimary osteoarthriti s of right hipHip abductor tendinitis, right 7 Sangita La. [address] [place] [address], [id number] . tel: [phone] Referring Provider: Kristel Villegas, [address] [employer], [place], [address]. tel:[phone] Family History Family Member Type Diagnosis Age At Onset Brother Problem (finding) Alive and well Immunizations Vaccine Date Status Comments Pneumo (2 yrs or older)(PPV) administered Source: Other Provider Payers Payer name Insurance type Covered green party ID Lela gong(s) Medicare E2 [id number] [place] Medicare Supplement E2 OT [id number] Social History Type Description Quantity Date [...] risk home exerc ise program handout provided Activity as tolerated Related to Complete [...]
--- OUTSIDE RECORDS SUMMARY | 2024-08-18 09:45 | XMS_ITS | Encounter Summary ---
Author Organization [employer] Address 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
--- OUTSIDE RECORDS SUMMARY | 2024-08-18 09:45 | XMS_ITS | Referral Summary ---
Author Organization [facility] Address [address] [place] [phone] Care Team Providers Care Photovoltaic Technician Name Role Phone Meagan Yusuf MD Primary Care Provider + Annemarie Lea MD Unavailable [phone] Margy Walker MD PhD Unavailable [phone] Geraldine Barbosa NP Unavailable [phone] Encounters Date Type Department Care Team Description 08/07/2024 Results Follow-Up [facility] Medical [facility] Cardiology [address] [facility] [address] [place] [address] Cinda Jimenez MD Transthoracic Echo (TTE) Complete W Doppler/CF 08/06/2024 2:00 PM CDT Ancillary Procedure [facility] Medical [facility] Cardiology at [address] [place] [address] Nonrheumatic mitral valve regurgitation; Nonrheumatic tricuspid valve regurgitation 07/22/2024 9:30 AM CDT Office Visit [facility] Cardiology at [address] [place] [address] Cinda Jimenez MD Nonrheumatic mitral valve regurgitation (Primary Dx); Nonrheumatic tricuspid valve regurgitation; Mixed hyperlipidemia; Labile hypertension; Coronary artery disease involving sh[place]f ira coronary artery of sh[place] ira heart without angina pectoris; Frequent falls; Persistent atrial fibrillation (HCC); Chronic anticoagulation; Chronic diastolic heart failure (HCC) 06/30/2024 10:00 AM CDT Office Visit [facility] Ophthalmology [address] [place] [address] [place] [phone] Leeann Horvath MD Orbital floor (blow-out) closed fracture (HCC) (Primary Dx); Mixed type age-related cataract, both eyes 06/23/2024 11:59 AM CDT - 06/23/2024 11:59 PM CDT Hospital Encounter [facility] [address] [place] [address] Discharge Disposition: Discharge to home or self care 06/23/2024 11:00 AM CDT Office Visit [facility] Surgery [address] [facility] Advanced Medicine 6th [place] [address] [place] [phone] Margy Walker MD PhD Fracture (Primary Dx); Other closed intra-articular fracture of distal end of left radius, initial encounter 06/15/2024 Telephone [facility] Surgery [address] [facility] Advanced Medicine 6th [place] [address] [place] [phone] Erica Velarde 06/09/2024 Telephone [facility] Scheduling [address] [place] [address] Nu Milian MD 05/31/2024 Telephone [facility] Ophthalmology [address] [place], [place] [phone] Leeann Horvath MD 05/28/2024 Documentation [facility] Surgeon [address] [place] [address] Lorena Beck NP 05/27/2024 Telephone [facility] Advanced Medicine ([facility]) - [facility] ENT [address] [facility] Advanced Medicine 11th [place] [address] [place] [phone] Sybil Burgess, 05/13/2024 12:53 AM [facility] - 05/27/2024 7:22 PM [facility] Hospital Encounter [facility] 1 [place] [phone] Edwige Strickland MD Vallar, Kelly Jean, MD Smith, Miya Alys, MD Croft, Irineo, MD Fall, initial encounter (Primary Dx); Closed fracture of right orbital floor, initial encounter (HCC); Frequent falls; Other closed intra-articular fracture of distal end of left radius, initial encounter Discharge Disposition: Discharge to an Rehab facility from Last 3 Months Allergies Active Allergy [...] 05/23/2024 Assessment & Plan (05/26/2024 9:50 AM [facility]): #COPD #TRAVIS, chronic #Chronic hypoxic respiratory failure [...] 05/23/2024 Assessment & Plan (05/27/2024 11:52 AM [facility]): 3/ tx out ICU, PT/OT - 05/25: awaiting repeat swallow evaluation, calorie counts - 05/26: Continue Tfs at nightly, Calorie counts. Wean O2 back to home 4L. Not medically ready for discharge. 05/27: Patient is medically stable for discharge, SW/CM updated. Discharge pending facility bed availability Treatment note 05/14 [x] Feeding difficulties 05/22/2024 Assessment & Plan (05/27/2024 11:55 AM [facility]): SBFT placed by ENT 05/21 TFs commenced [...] NPO, resumed tube feeds, ordered for repeat NATURAL GAS ENGINEER evaluation. Recommend up in chair for all meals and 1:1 assistance during meals pending NATURAL GAS ENGINEER evaluation. Discussed with patient and nurse to inform provider of any change in clinical exam or vital signs. 05/25: repeat Swallow- regular diet, regular thin liquids assistance with meals, calorie counts ordered, cycle tube feeding over PM MBS (05/27): swallow mechanism is normal Respiratory distress 05/20/2024 Assessment & Plan (05/27/2024 11:55 AM [facility]): Transferred to SICU 05/18 ON after respiratory [...] 05/14/2024 Assessment & Plan (05/15/2024 2:15 PM [facility]): - Orthostatic vital signs (05/14): negative - [...] 05/14/2024 Assessment & Plan (05/14/2024 12:48 PM [facility]): - Tylenol 1g q6h - Gabapentin 300mg TID - Robaxin 500mg TID PRN - Oxycodone 5mg q4h PRN Closed fracture of distal end of left radius Assessment & Plan (05/27/2024 11:55 AM [facility]): - Plastics consult - L hand/wrist xr [...] 05/14/2024 Assessment & Plan (05/25/2024 11:39 AM [facility]): - Magnesium (05/14): 1.9mg/dL - 05/14: replete Magnesium 2g IV - Magnesium (05/15): 2.0mg/dL - Magnesium (05/20): 2.2mg/dL - Magnesium (05/25): 2.0mg/dL - continue to trend Magnesium Fall, initial encounter 05/13/2024 Assessment & Plan (05/15/2024 10:18 AM [facility]): Syncopal workup given unclear mechanism (TTE, carotid [...] months Assessment & Plan (05/27/2024 11:52 AM [facility]): Ophtho c/s ---HOB elevation, open-mouth sneezing, no [...] to be tasked with Dr Lea's team. [phone] Antibiotics Ancef 7day (complete) Intraparenchymal hematoma of brain due to trauma 05/13/2024 Assessment & Plan (05/23/2024 4:06 PM [facility]): - Neurosurgery consult - Repeat head CT [...] 05/13/2024 Assessment & Plan (05/25/2024 11:36 AM [facility]): - Hold Xarelto - home diltiazem 180 [...] 05/13/2024 Assessment & Plan (05/24/2024 3:43 PM [facility]): Grade II diastolic dysfunction -EF 70%, moderate pulmonary hypertension (09/2021) 3: resumed home diltiazem. CTM BP and resume home lasix when appropriate. Restless leg syndrome 05/13/2024 Assessment & Plan (05/13/2024 2:32 PM [facility]): - Continue home ropinrole and pramipexole, gabapentin Mood disorder 05/13/2024 Assessment & Plan (05/13/2024 2:37 PM [facility]): Continue home zoloft Heart failure with mildly re duced ejection fraction (HFmrEF) 01/15/2024 Assessment & Plan (05/27/2024 11:57 AM [facility]): #HTN, chronic #HFrEF, chronic #Severe MR #Severe TI #Severe pulmonary hypertension - TTEs as above - Home O2 4L - Follows with [facility] Cardiology - Home Diltiazem, Entresto, Lasix (1/2 dose) and metoprolol continued Persistent atrial fibrillation 02/20/2022 Noncompliance with medicatio n treatment due to intermittent use of medication 12/18/2021 Morbid (severe) obesity due to excess calories 0 07/05/2021 Labile hypertension 03/23/2021 Hypotension due to drugs 03/23/2021 Coronary artery disease invo lving shishmaref ira coronary artery of shishmaref ira heart without angina pectoris 02/10/2021 Mixed hyperlipidemia 02/10/2021 Chronic obstructive pulmonary disease 02/10/2021 Chronic respiratory failure with hypoxia 021 TRAVIS on CPAP 02/10/2021 Frequent falls 02/10/2021 Resolved Problems Problem Noted Date Diagnosed Date Resolved Date COPD (chronic obstructive pulmonary disease) 05/23/2024 Assessment & Plan (05/13/2024 2:35 PM [facility]): - home meds: albuterol, ipratopium-albuterol Discharge planning issues 05/13/2024 Assessment & Plan (05/18/2024 2:27 PM [facility]): - 05/14: orthostatic vital signs pending, syncope [...] on file Legal Sex Female 4:29 PM [facility] Gender Identity Not on file Sexual Orientation Not on file Last Filed Vital Signs Vital Sign Reading Time Taken Comments Blood Pressure 120/72 07/22/2024 9:18 AM CDT Pulse 81 07/22/2024 9:18 AM CDT Temperature 37.1 C (98.8 F) 05/27/2024 3:28 PM [facility] Respiratory Rate 20 05/27/2024 11:49 AM [facility] Oxygen Saturation 92% 07/22/2024 9:18 AM CDT 4L O2 Inhaled Oxygen Concentration - - Weight 102.5 kg (226 lb) 07/22/2024 9:18 AM CDT Height 165.1 cm (5' 5 ) 07/22/2024 9:18 AM CDT Body Mass Index 37.61 07/22/2024 9:18 AM CDT Plan of Treatment Not on file Medical Devices Implanted Type Area Pile Driving Setter Device Identifier Shelf Expiration Date Model / Serial / Lot Implantech Sheeting Silastic Non Reinforced Alliedsil [id number] Silicone -700-40 - [id number] Implanted:Qty: 1 on 05/19/2024 by Annemarie Lea MD at [facility] Other - see comments Right: Face Implantech 07/03/2028- / / Horatio Craniomaxillofacial Craniomaxillofacial Right 3d Large Implant Orbital Medpor Titan 90428 - [id number] Implanted:Qty: 1 on 05/19/2024 by Annemarie Lea MD at [facility] Other - see comments Right: Face Luis Carlos Craniomaxillofacial 08/19/2032 [id number] / / Horatio Craniomaxillofacial 1.2mm 4mm Self Drill Axial Stability Lower Profile Screw Bone [id number] - [id number] Implanted:Qty: 1 on 05/19/2024 by Annemarie Lea MD at [facility] Other - see comments Right: Face Horatio Craniomaxillofacial 56-1290 4 / / Medartis Inc Plt 2.5 Adaptive Ii Trilock Dist Rad Vol L 10h Narrow T2.0 A-4750.101 - [id number] Implanted:Qty: 1 on 05/18/2024 by Margy Walker MD PhD at [facility] Left: Wrist Medartis Inc A-4750. 101 / / Medartis Inc 2.5mm 18mm Lock Cortical Screw Bone A-5750.18 - [id number] Implanted:Qty: 1 on 05/18/2024 by Margy Walker MD PhD at [facility] Left: Wrist [employer] Inc A-5750. 18 / / Medartis Inc 2.5mm 22mm Lock Cortical Screw Bone A-5750.22 - [id number] Implanted:Qty: 2 on 05/18/2024 by Margy Walker MD PhD at [facility] Left: Wrist [employer] A-5750. 22 / / [employer] 2.5mm 20mm Lock Cortical Screw Bone A-5750.20 - [id number] Implanted:Qty: 3 on 05/18/2024 by Margy Walker MD PhD at [facility] Left: Wrist [employer] Inc A-5750. 20 / / Medartis Inc Aptus 2.5mm 14mm Lock Cortical Screw Bone A-5750.14 - [id number] Implanted:Qty: 2 on 05/18/2024 by Margy Walker MD PhD at [facility] Left: Wrist [employer] Inc A-5750. 14 / / Medartis Inc Aptus 2.5mm 14mm Cortical Screw Bone A-5700.14 - [id number] Implanted:Qty: 1 on 05/18/2024 by Margy Walker MD PhD at [facility] Left: Wrist [employer]art[employer] Inc A-5700. 14 / / Medartis Inc 2.5mm 12mm Lock Cortical Screw Bone A-5750.12 - [id number] Implanted:Qty: 1 on 05/18/2024 by Margy Walker MD PhD at [facility] Left: Wrist [employer] Inc A-5750. 12 / / Explanted Type Area Pile Driving Setter Device Identifier Shelf Expiration Date Model / Serial / Lot Medartis Inc Aptus 2.5mm 16mm Cortical Screw Bone A-5700.16 - [id number] Explanted:Qty: 1 on 05/18/2024 by Margy Walker MD PhD at [facility] Left: Wrist [employer]art[employer] Inc A-5700 .16 / / Medartis Inc 2.5mm 18mm Lock Cortical Screw Bone A-5750.18 - [id number] Explanted:Qty: 1 on 05/18/2024 at [facility] Left: Wrist Medart[employer] Inc A-5750 .18 [...] W VIDEO IP Routine 05/27/2024 10:35 AM [facility] EGFR Routine 05/26/2024 9:12 PM [facility] BASIC METABOLIC PANEL Routine 05/26/2024 9:12 PM [facility] CBC WITHOUT DIFFERENTIAL Routine 05/26/2024 9:12 PM [facility] MAGNESIUM Routine 05/26/2024 9:12 PM [facility] PHOSPHORUS Routine 05/26/2024 9:12 PM [facility] PEP THERAPY Routine 05/26/2024 12:01 PM [facility] PEP THERAPY Routine 05/26/2024 6:01 AM [facility] PEP THERAPY Routine 05/26/2024 12:00 AM [facility] EGFR Routine 05/25/2024 9:54 PM [facility] BASIC METABOLIC PANEL Routine 05/25/2024 9:54 PM [facility] CBC WITHOUT DIFFERENTIAL Routine 05/25/2024 9:54 PM [facility] MAGNESIUM Routine 05/25/2024 9:54 PM [facility] PHOSPHORUS Routine 05/25/2024 9:54 PM [facility] PEP THERAPY Routine 05/25/2024 6:00 PM [facility] PEP THERAPY Routine 05/25/2024 12:00 PM [facility] PEP THERAPY Routine 05/25/2024 6:01 AM [facility] PEP THERAPY Routine 05/25/2024 12:00 AM [facility] ECG 12-LEAD STAT 05/24/2024 10:55 PM [facility] EGFR Routine 05/24/2024 8:54 PM [facility] BASIC METABOLIC PANEL Routine 05/24/2024 8:54 PM [facility] CBC WITHOUT DIFFERENTIAL Routine 05/24/2024 8:54 PM [facility] MAGNESIUM Routine 05/24/2024 8:54 PM [facility] PHOSPHORUS Routine 05/24/2024 8:54 PM [facility] PEP THERAPY Routine 05/24/2024 6:00 PM [facility] PEP THERAPY Routine 05/24/2024 12:00 PM [facility] PEP THERAPY Routine 05/24/2024 6:00 AM [facility] PEP THERAPY Routine 05/24/2024 12:00 AM [facility] ECG 12-LEAD Routine 05/23/2024 11:24 PM [facility] EGFR Routine 05/23/2024 8:13 PM [facility] BASIC METABOLIC PANEL Routine 05/23/2024 8:13 PM [facility] CBC WITHOUT DIFFERENTIAL Routine 05/23/2024 8:13 PM [facility] MAGNESIUM Routine 05/23/2024 8:13 PM [facility] PHOSPHORUS Routine 05/23/2024 8:13 PM [facility] PEP THERAPY Routine 05/23/2024 6:00 PM [facility] PEP THERAPY Routine 05/23/2024 12:00 PM [facility] CRITICAL CARE Routine 05/23/2024 6:40 AM [facility] Fall, initial encounter PEP THERAPY Routine 05/23/2024 6:00 AM [facility] PEP THERAPY Routine 05/23/2024 12:01 AM [facility] POCT GLUCOSE DEVICE Routine 05/22/2024 11:10 PM [facility] EGFR Routine 05/22/2024 8:23 PM [facility] BASIC METABOLIC PANEL Routine 05/22/2024 8:23 PM [facility] CBC WITHOUT DIFFERENTIAL Routine 05/22/2024 8:23 PM [facility] MAGNESIUM Routine 05/22/2024 8:23 PM [facility] PHOSPHORUS Routine 05/22/2024 8:23 PM [facility] CRITICAL CARE Routine 05/22/2024 7:32 PM [facility] Fall, initial encounter POCT GLUCOSE DEVICE Routine 05/22/2024 6 :58 PM [facility] PEP THERAPY Routine 05/22/2024 6:00 PM [facility] IRON PROFILE W/ IBC STAT 05/22/2024 3 :44 PM [facility] POCT GLUCOSE DEVICE Routine 05/22/2024 3 :03 PM [facility] PEP THERAPY Routine 05/22/2024 12:00 PM [facility] POCT GLUCOSE DEVICE Routine 05/22/2024 10:55 AM [facility] POCT GLUCOSE DEVICE Routine 05/22/2024 7 :01 AM [facility] CRITICAL CARE Routine 05/22/2024 6:44 AM [facility] Fall, initial encounter PEP THERAPY Routine 05/22/2024 6:01 AM [facility] BLOOD GAS, ARTERIAL Routine 05/22/2024 4 :31 AM [facility] POCT GLUCOSE DEVICE Routine 05/22/2024 3 :02 AM [facility] PEP THERAPY Routine 05/22/2024 12:00 AM [facility] POCT GLUCOSE DEVICE Routine 05/21/2024 10:54 PM [facility] EGFR Routine 05/21/2024 8:54 PM [facility] BLOOD GAS, ARTERIAL Routine 05/21/2024 8 :54 PM [facility] BASIC METABOLIC PANEL Routine 05/21/2024 8:54 PM [facility] CBC WITHOUT DIFFERENTIAL Routine 05/21/2024 8:54 PM [facility] MAGNESIUM Routine 05/21/2024 8:54 PM [facility] PHOSPHORUS Routine 05/21/2024 8:54 PM [facility] XR CHEST 1 VIEW IP Routine 05/21/2024 8:36 PM [facility] CRITICAL CARE Routine 05/21/2024 8:00 PM [facility] Fall, initial encounter POCT GLUCOSE DEVICE Routine 05/21/2024 7 :43 PM [facility] PEP THERAPY Routine 05/21/2024 6:00 PM [facility] BLOOD GAS, ARTERIAL STAT 05/21/2024 3 :11 PM [facility] POCT GLUCOSE DEVICE Routine 05/21/2024 3 :10 PM [facility] EXTUBATION Routine 05/21/2024 2:27 PM [facility] PEP THERAPY Routine 05/21/2024 12:00 PM [facility] POCT GLUCOSE DEVICE Routine 05/21/2024 11:14 AM [facility] T4, FREE Routine 05/21/2024 9:07 AM [facility] AMMONIA Routine 05/21/2024 9:07 AM [facility] THYROID FUNCTION CASCADE Routine 05/21/2024 9:07 AM [facility] TRIGLYCERIDES Timed 05/21/2024 9:07 AM [facility] POCT GLUCOSE DEVICE Routine 05/21/2024 7 :24 AM [facility] CRITICAL CARE Routine 05/21/2024 7:02 AM [facility] Fall, initial encounter PEP THERAPY Routine 05/21/2024 6:01 AM [facility] POCT GLUCOSE DEVICE Routine 05/21/2024 3 :47 AM [facility] XR CHEST 1 VIEW ED Urgent/IP Urgent 05/21/2024 12:12 AM [facility] PEP THERAPY Routine 05/21/2024 12:00 AM [facility] from Last 3 Months Results * TRANSTHORACIC ECHO (TTE) COMPLETE W DOPPLER/CF WO CONTRAST (08/06/2024 2:36 PM CDT) EF Mod BP 52 % CONS SCIMAGE Anatomical Region Laterality Modality Ultrasound 08/06/2024 1:5 3 PM CDT Narrative 08/06/2024 3:20 PM CDT [facility] Cardiology [address], [address], [place] [address] P:[phone] P:[phone] Echocardiographic Report Patient Name: LORRAINE WALLER J [...] FINDINGS: Interpretation Site: Exam was interpreted at [facility]. 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 Procedure Note Harish Blair MD - 06/23/2024 EXAMINATION: XR WRIST LEFT [...] and 1st MCP osteoarthritis. Electronically signed by: Alcides Bejarano Grigsby, M.D. us Margy Walker MD PhD IMG XR PROCEDURES Final Result * FL Modified Barium Swallow W Video (05/27/2024 10:35 AM [facility]) Anatomical Region Laterality Modality Head and Neck N/A Radio Fluoroscop y 05/27/2024 11:0 1 AM [facility] Impressions 05/27/2024 11:14 AM [facility] The swallowing mechanism is normal; see above [...] Serrano M.D., Ph.D Narrative 05/27/2024 11:14 AM [facility] EXAMINATION: MODIFIED BARIUM SWALLOW HISTORY: Dysphagia. TECHNIQUE: [...] by: Murtaza Serrano M.D., Ph.D Debby Gaona TEXTILE CHEMIST IMG FLUOROSCOPY PROCED URES Final Result * eGFR (05/26/2024 9:12 PM [facility]) [facility] eGFR 88 >=60 mL/min/1. 73 m2 Comment: [...] last reviewed 2021. Blood 05/26/2024 9:12 PM [facility] 05/26/2024 9:54 PM [facility] us Brissa Ko MD LAB BLOOD ORDERABLES Final Result [facility] Department of Laboratories [place], [place] [phone] * (ABNORMAL) CBC without differential (05/26/2024 9:12 PM [facility]) [facility] WBC 8.8 3.8 - 9.9 K/cumm Hgb 9.7(L) 11.9 - 15.5 g/dL [facility] Hct 32.8(L) 35.6 - 45.5 % [facility] Plt 209 150 - 400 K/cumm [facility] MPV 11.9 9.1 - 12.3 fL [facility] RBC 3.36(L) 3.90 - 5.20 M/cumm [facility] MCV 97.6(H) 81.3 - 96.4 fL [facility] MCH 28.9 27.1 - 33.3 pg [facility] MCHC 29.6(L) 32.3 - 35.7 g/dL [facility] RDW CV 14.2 11.1 - 14.9 % [facility] RDW SD 50.4(H) 35.7 - 48.1 fL [facility] NRBC abs 0.00 0.00 - 0.01 K/cumm [facility] Blood 05/26/2024 9:12 PM [facility] 05/26/2024 9:54 PM [facility] Brissa Ko MD LAB BLOOD ORDERABLES Final Result Performing Organization Address City/[facility]/ZIP Co de Phone Number [facility] [place] [address] * Phosphorus (05/26/2024 9:12 PM [facility]) Phosphorus, pl 2.8 2.3 - 4.5 mg/dL Blood 05/26/2024 9:12 PM [facility] 05/26/2024 9:54 PM [facility] Brissa Ko MD LAB BLOOD ORDERABLES Final Result Performing Organization Address [facility] Co de Phone Number [facility] [place] [address] * Magnesium (05/26/2024 9:12 PM [facility]) Magnesium 2.0 1.4 - 2.5 mg/dL Blood 05/26/2024 9:12 PM [facility] 05/26/2024 9:54 PM [facility] Brissa Ko MD LAB BLOOD ORDERABLES Final Result Performing Organization Address City/[facility]/ZIP Co de Phone Number [facility] [place] [address] * Basic metabolic panel (05/26/2024 9:12 PM [facility]) Sodium 143 135 - 145 mmol/L Potassium, pl 4.2 3.3 - 4.9 mmol/L [facility] Chloride 102 97 - 110 mmol/L [facility] CO2 31 22 - 32 mmol/L [facility] Anion gap 10 2 - 15 mmol/L [facility] BUN 21 6 - 25 mg/dL [facility] Creatinine 0.71 0.60 - 1.10 mg/dL [facility] Glucose 165 70 - 199 mg/dL [facility] Comment: Interpretive Data Fasting glucose >/= 126 [...] 2022. Calcium 9.3 8.5 - 10.3 mg/dL [facility] Blood 05/26/2024 9:12 PM [facility] 05/26/2024 9:54 PM [facility] Brissa Ko MD LAB BLOOD ORDERABLES Final Result [facility] [place] [address] * eGFR (05/25/2024 9:54 PM [facility]) Pathologist [facility] eGFR >90 >=60 mL/min/1. 73 m2 Comment: [...] last reviewed 2021. Blood 05/25/2024 9:54 PM [facility] 05/25/2024 10:27 PM [facility] Brissa Ko MD LAB BLOOD ORDERABLES Final Result [facility] [place] [address] * (ABNORMAL) CBC without differential (05/25/2024 9:54 PM [facility]) WBC 6.4 3.8 - 9.9 K/cumm Hgb 9.4(L) 11.9 - 15.5 g/dL [facility] Hct 31.2(L) 35.6 - 45.5 % [facility] Plt 170 150 - 400 K/cumm [facility] MPV 11.5 9.1 - 12.3 fL [facility] RBC 3.22(L) 3.90 - 5.20 M/cumm [facility] MCV 96.9(H) 81.3 - 96.4 fL [facility] MCH 29.2 27.1 - 33.3 pg [facility] MCHC 30.1(L) 32.3 - 35.7 g/dL [facility] RDW CV 14.3 11.1 - 14.9 % [facility] RDW SD 50.5(H) 35.7 - 48.1 fL [facility] NRBC abs 0.00 0.00 - 0.01 K/cumm [facility] Blood 05/25/2024 9:54 PM [facility] 05/25/2024 10:27 PM [facility] Brissa Ko MD LAB BLOOD ORDERABLES Final Result Performing Organization Address City/[facility]/ZIP Co de Phone Number [facility] [place] [employer] [place] [address] * Phosphorus (05/25/2024 9:54 PM [facility]) [facility] Phosphorus, pl 3.5 2.3 - 4.5 mg/dL Blood 05/25/2024 9:54 PM [facility] 05/25/2024 10:27 PM [facility] Brissa Ko MD LAB BLOOD ORDERABLES Final Result Performing Organization Address [facility] Co de Phone Number [facility] [place] [address] * Magnesium (05/25/2024 9:54 PM [facility]) [facility] Magnesium 2.1 1.4 - 2.5 mg/dL Blood 05/25/2024 9:54 PM [facility] 05/25/2024 10:27 PM [facility] Brissa Ko MD LAB BLOOD ORDERABLES Final Result Performing Organization Address [facility] [place] [address] * (ABNORMAL) Basic metabolic panel (05/25/2024 9:54 PM [facility]) [facility] Sodium 145 135 - 145 mmol/L Potassium, pl 4.4 3.3 - 4.9 mmol/L [facility] Chloride 105 97 - 110 mmol/L [facility] CO2 33(H) 22 - 32 mmol/L [facility] Anion gap 7 2 - 15 mmol/L [facility] BUN 13 6 - 25 mg/dL [facility] Creatinine 0.66 0.60 - 1.10 mg/dL [facility] Glucose 112 70 - 199 mg/dL [facility] Comment: Interpretive Data Fasting glucose >/= 126 [...] 2022. Calcium 9.2 8.5 - 10.3 mg/dL [facility] Blood 05/25/2024 9:54 PM [facility] 05/25/2024 10:27 PM [facility] Brissa Ko MD LAB BLOOD ORDERABLES Final Result [facility] Department of Laboratories [place], [place] [id number] * ECG 12 lead (05/24/2024 10:55 PM [facility]) Ventricular Rate EKG/Min 99 BPM [facility] QRS-Interval (MSEC) 86 ms [facility] QT-Interval (MSEC) 364 ms [facility] QTc 467 ms [facility] R Stanford 91 degrees [facility] T Stanford 160 degrees [facility] Diagnosis Atrial fibrillation/fl utter Rightward axis Low voltage QRS Cannot rule out Anterior infarct , age undetermined ST & T wave abnormality, consider lateral ischemia Abnormal ECG When compared with ECG of 23-MAY-2024 23:24, (unconfirmed) T wave inversion no longer evident in Anterior leads Confirmed by GABO PIEDRA M.D ([id number]) on 05/25/2024 3:55:52 PM [facility] 05/24/2024 10:5 5 PM [facility] 05/25/2024 3:55 PM [facility] Brissa Ko MD ECG ORDERABLES Final Resul t [facility] * eGFR (05/24/2024 8:54 PM [facility]) Pathologist [facility] [place] eGFR 90 >=60 mL/min/1. 73 m2 Comment: [...] last reviewed 2021. Blood 05/24/2024 8:54 PM [facility] 05/24/2024 9:30 PM [facility] Brissa Ko MD LAB BLOOD ORDERABLES Final Result Performing Organization Address City/[facility] Co de Phone Number [facility] [place] [address] * (ABNORMAL) CBC without differential (05/24/2024 8:54 PM [facility]) Pathologist [facility] [place] WBC 7.1 3.8 - 9.9 K/cumm Hgb 9.1(L) 11.9 - 15.5 g/dL [facility] Hct 29.6(L) 35.6 - 45.5 % [facility] Plt 162 150 - 400 K/cumm [facility] MPV 11.4 9.1 - 12.3 fL [facility] RBC 3.10(L) 3.90 - 5.20 M/cumm [facility] MCV 95.5 81.3 - 96.4 fL [facility] MCH 29.4 27.1 - 33.3 pg [facility] MCHC 30.7(L) 32.3 - 35.7 g/dL [facility] RDW CV 14.5 11.1 - 14.9 % [facility] RDW SD 50.9(H) 35.7 - 48.1 fL [facility] NRBC abs 0.00 0.00 - 0.01 K/cumm [facility] Blood 05/24/2024 8:54 PM [facility] 05/24/2024 9:31 PM [facility] Brissa Ko MD LAB BLOOD ORDERABLES Final Result Performing Organization Address City/[facility] Co de Phone Number [facility] [place] [address] * Phosphorus (05/24/2024 8:54 PM [facility]) Phosphorus, pl 2.5 2.3 - 4.5 mg/dL Blood 05/24/2024 8:54 PM [facility] 05/24/2024 9:30 PM [facility] Brissa Ko MD LAB BLOOD ORDERABLES Final Result Performing Organization Address [facility] Co de Phone Number [facility] [place] [address] * Magnesium (05/24/2024 8:54 PM [facility]) Magnesium 2.0 1.4 - 2.5 mg/dL Blood 05/24/2024 8:54 PM [facility] 05/24/2024 9:30 PM [facility] Brissa Ko MD LAB BLOOD ORDERABLES Final Result Performing Organization Address City/[facility] Co de Phone Number [facility] [place] [address] * (ABNORMAL) Basic metabolic panel (05/24/2024 8:54 PM [facility]) Pathologist [facility] [place] Sodium 146(H) 135 - 145 mmol/L Potassium, pl 4.8 3.3 - 4.9 mmol/L [facility] Chloride 108 97 - 110 mmol/L [facility] CO2 30 22 - 32 mmol/L [facility] Anion gap 8 2 - 15 mmol/L [facility] BUN 19 6 - 25 mg/dL [facility] Creatinine 0.70 0.60 - 1.10 mg/dL [facility] Glucose 104 70 - 199 mg/dL [facility] Comment: Interpretive Data Fasting glucose >/= 126 [...] 2022. Calcium 9.1 8.5 - 10.3 mg/dL [facility] Blood 05/24/2024 8:54 PM [facility] 05/24/2024 9:30 PM [facility] Brissa Ko MD LAB BLOOD ORDERABLES Final Result [facility] [place] [address] * ECG 12 lead (05/23/2024 11:24 PM [facility]) Pathologist [facility] [place] Ventricular Rate EKG/Min 88 BPM [facility] QRS-Interval (MSEC) 84 ms [facility] QT-Interval (MSEC) 364 ms [facility] QTc 440 ms [facility] R Stanford 96 degrees [facility] T Stanford 148 degrees [facility] Diagnosis Atrial fibrillation/flu tter Rightward axis Low voltage QRS ST & T wave abnormality, consider anterolateral ischemia Abnormal ECG When compared with ECG of 15-MAY-2024 07:03, ST now depressed in Lateral leads Nonspecific T wave abnormality, improved in Inferior leads T wave inversion now evident in Anterolateral leads QT has shortened Confirmed by GABO PIEDRA M.D ([id number]) on 05/26/2024 11:12:20 AM [facility] 05/23/2024 11:2 4 PM [facility] 05/26/2024 11:12 AM [facility] us Brissa Ko MD ECG ORDERABLES Final Resul t [facility] [employer] [facility] * eGFR (05/23/2024 8:13 PM [facility]) eGFR 80 >=60 mL/min/1. 73 m2 Comment: [...] last reviewed 2021. Blood 05/23/2024 8:13 PM [facility] 05/23/2024 9:00 PM [facility] us Brissa Ko MD LAB BLOOD ORDERABLES Final Result [facility] [place] [address] * (ABNORMAL) CBC without differential (05/23/2024 8:13 PM [facility]) [facility] WBC 7.3 3.8 - 9.9 K/cumm Hgb 8.7(L) 11.9 - 15.5 g/dL [facility] Hct 29.1(L) 35.6 - 45.5 % [facility] Plt 153 150 - 400 K/cumm [facility] MPV 11.5 9.1 - 12.3 fL [facility] RBC 3.00(L) 3.90 - 5.20 M/cumm [facility] MCV 97.0(H) 81.3 - 96.4 fL [facility] MCH 29.0 27.1 - 33.3 pg [facility] MCHC 29.9(L) 32.3 - 35.7 g/dL [facility] RDW CV 14.6 11.1 - 14.9 % [facility] RDW SD 52.3(H) 35.7 - 48.1 fL [facility] NRBC abs 0.00 0.00 - 0.01 K/cumm [facility] Blood 05/23/2024 8:13 PM [facility] 05/23/2024 9:03 PM [facility] Brissa Ko MD LAB BLOOD ORDERABLES Final Result Performing Organization Address City/[facility]/ZIP Co de Phone Number [facility] [employer] [place] [address] * (ABNORMAL) Phosphorus (05/23/2024 8:13 PM [facility]) [facility] Phosphorus, pl 2.2(L) 2.3 - 4.5 mg/dL Blood 05/23/2024 8:13 PM [facility] 05/23/2024 9:00 PM [facility] Brissa Ko MD LAB BLOOD ORDERABLES Final Result Performing Organization Address City/[facility]/ZIP Co de Phone Number [facility] [place] [employer] [place] [place] [address] * Magnesium (05/23/2024 8:13 PM [facility]) Magnesium 2.0 1.4 - 2.5 mg/dL Blood 05/23/2024 8:13 PM [facility] 05/23/2024 9:00 PM [facility] Brissa Ko MD LAB BLOOD ORDERABLES Final Result [facility] [place] [address] * Basic metabolic panel (05/23/2024 8:13 PM [facility]) Pathologist [facility] [place] Sodium 145 135 - 145 mmol/L Potassium, pl 4.2 3.3 - 4.9 mmol/L [facility] Chloride 106 97 - 110 mmol/L [facility] CO2 32 22 - 32 mmol/L [facility] Anion gap 7 2 - 15 mmol/L [facility] BUN 20 6 - 25 mg/dL [facility] Creatinine 0.77 0.60 - 1.10 mg/dL [facility] Glucose 148 70 - 199 mg/dL [facility] Comment: Interpretive Data Fasting glucose >/= 126 [...] 2022. Calcium 8.6 8.5 - 10.3 mg/dL [facility] Blood 05/23/2024 8:13 PM [facility] 05/23/2024 9:00 PM [facility] Brissa Ko MD LAB BLOOD ORDERABLES Final Result [facility] [place] [address] * Critical Care (05/23/2024 6:40 AM [facility]) Narrative Kelvin Delgado MD - 05/23/2024 6:40 AM [facility] Kelvin Delgado MD 05/23/2024 5:18 PM Critical Care Performed by: Olga Meehan NP Authorized by: lOga Meehan NP CRITICAL CARE: Team: SICU BLUE [...] plan with the patient's team and other medical/process improvement consultant staff. This time was in addition to and separate from care provided by other practitioners on this day of service. I spent time reviewing and interpreting data from bedside monitors, laboratory results, and imaging and I spent time documenting in the medical record us Olga Meehan TEXTILE CHEMIST IN CLINIC/BEDSIDE O RDERABLES Final Result * POCT glucose (05/22/2024 11:10 PM [facility]) [facility] Glucose, POC 98 70 - 199 mg/dL Blood 05/22/2024 11:1 0 PM [facility] 05/22/2024 11:10 PM [facility] us Brissa Ko MD LAB POCT ORDERABLES - DEVIC E Final Result [facility] [place] [address] * eGFR (05/22/2024 8:23 PM [facility]) [facility] eGFR 71 >=60 mL/min/1. 73 m2 [...] last reviewed 2021. Blood 05/22/2024 8:23 PM [facility] 05/22/2024 8:36 PM [facility] Brissa Ko MD LAB BLOOD ORDERABLES Final Result [facility] [place] [address] * (ABNORMAL) CBC without differential (05/22/2024 8:23 PM [facility]) WBC 7.0 3.8 - 9.9 K/cumm Hgb 8.9(L) 11.9 - 15.5 g/dL [facility] Hct 29.2(L) 35.6 - 45.5 % [facility] Plt 158 150 - 400 K/cumm [facility] MPV 11.0 9.1 - 12.3 fL [facility] RBC 3.03(L) 3.90 - 5.20 M/cumm [facility] MCV 96.4 81.3 - 96.4 fL [facility] MCH 29.4 27.1 - 33.3 pg [facility] MCHC 30.5(L) 32.3 - 35.7 g/dL [facility] RDW CV 14.8 11.1 - 14.9 % [facility] RDW SD 52.5(H) 35.7 - 48.1 fL [facility] NRBC abs 0.00 0.00 - 0.01 K/cumm [facility] Blood 05/22/2024 8:23 PM [facility] 05/22/2024 8:36 PM [facility] Brissa Ko MD LAB BLOOD ORDERABLES Final Result Performing Organization Address [facility] de Phone Number [facility] [place] [address] * Phosphorus (05/22/2024 8:23 PM [facility]) [facility] Phosphorus, pl 3.0 2.3 - 4.5 mg/dL Blood 05/22/2024 8:23 PM [facility] 05/22/2024 8:36 PM [facility] Brissa Ko MD LAB BLOOD ORDERABLES Final Result Performing Organization Address [facility] de Phone Number [facility] [place] [address] * Magnesium (05/22/2024 8:23 PM [facility]) [facility] Magnesium 2.2 1.4 - 2.5 mg/dL Blood 05/22/2024 8:23 PM [facility] 05/22/2024 8:36 PM [facility] Brissa Ko MD LAB BLOOD ORDERABLES Final Result Performing Organization Address [facility] de Phone Number [facility] [place] [address] * (ABNORMAL) Basic metabolic panel (05/22/2024 8:23 PM [facility]) [facility] Sodium 146(H) 135 - 145 mmol/L Potassium, pl 4.1 3.3 - 4.9 mmol/L [facility] Chloride 106 97 - 110 mmol/L [facility] CO2 33(H) 22 - 32 mmol/L [facility] Anion gap 7 2 - 15 mmol/L [facility] BUN 26(H) 6 - 25 mg/dL [facility] Creatinine 0.85 0.60 - 1.10 mg/dL [facility] Glucose 122 70 - 199 mg/dL [facility] Comment: Interpretive Data Fasting glucose >/= 126 [...] 2022. Calcium 8.2(L) 8.5 - 10.3 mg/dL [facility] Blood 05/22/2024 8:23 PM [facility] 05/22/2024 8:36 PM [facility] Brissa Ko MD LAB BLOOD ORDERABLES Final Result [facility] [place] [address] * Critical Care (05/22/2024 7:32 PM [facility]) Narrative Murtaza Garcia MD - 05/22/2024 7:32 PM [facility] Murtaza Garcia MD 05/23/2024 6:19 AM Critical [...] plan with the patient's team and other medical/process improvement consultant staff. This time was in addition to and separate from care provided by other practitioners on this day of service. us Preston HINOJOSA IN CLINIC/BEDSI DE ORDERABLES Final Result * POCT glucose (05/22/2024 6:58 PM [facility]) Glucose, POC 115 70 - 199 mg/dL Blood 05/22/2024 6:58 PM [facility] 05/22/2024 6:58 PM [facility] us Brissa Ko MD LAB POCT ORDERABLES - DEVIC E Final Result [facility] [employer] [place] [address] * (ABNORMAL) Iron profile w/ IBC (05/22/2024 3:44 PM [facility]) [facility] Iron 29(L) 35 - 145 mcg/dL TIBC 258 250 - 400 mcg/dL [facility] Transferrin saturation 11(L) 20 - 50 % [facility] Blood 05/22/2024 3:44 PM [facility] 05/22/2024 4:15 PM [facility] Earnestine Kelly MD LAB BLOOD ORDERABLES Kylie l Result Performing Organization Address City/[facility]/ZIP Co de Phone Number [facility] [place] [employer] [place] [address] * POCT glucose (05/22/2024 3:03 PM [facility]) Glucose, POC 111 70 - 199 mg/dL Blood 05/22/2024 3:03 PM [facility] 05/22/2024 3:03 PM [facility] Brissa Ko MD LAB POCT ORDERABLES - DEVIC E Final Result [facility] [place] [address] * POCT glucose (05/22/2024 10:55 AM [facility]) Glucose, POC 130 70 - 199 mg/dL Blood 05/22/2024 10:5 5 AM [facility] 05/22/2024 10:55 AM [facility] Brissa Ko MD LAB POCT ORDERABLES - DEVIC E Final Result Performing Organization Address [facility] de Phone Number [facility] [place] [address] * POCT glucose (05/22/2024 7:01 AM [facility]) Glucose, POC 128 70 - 199 mg/dL Blood 05/22/2024 7:01 AM [facility] 05/22/2024 7:01 AM [facility] Brissa Ko MD LAB POCT ORDERABLES - DEVIC E Final Result Performing Organization Address [facility] [place] [address] * Critical Care (05/22/2024 6:44 AM [facility]) Narrative Earnestine Kelly MD - 05/22/2024 6:44 AM [facility] Earnestine Kelly MD 05/22/2024 6:05 PM Critical [...] plan with the ICU team and other medical/process improvement consultant staff, making frequent assessments and decisions [...] (ABNORMAL) Blood gas, arterial (05/22/2024 4:31 AM [facility]) pH, Art 7.44 7.35 - 7.45 PCO2, Arterial 49(H) 35 - 45 mmHg [facility] PO2, Arterial 136(H) 83 - 108 mmHg [facility] HCO3 Art (Calculated) 34(H) 20 - 30 mmol/L [facility] BE, art 8 mmol/L [facility] Comment: Interpretive Data No Reference Range Established Current Interpretive Data was last revised on 2017 O2 Sat Art (Measured) 100(H) 90 - 95 % [facility] Blood 05/22/2024 4:31 AM [facility] 05/22/2024 4:37 AM [facility] Result [facility] Lynsey Otoole NP LAB BLOOD ORDER TEDDY Final Result Performing Organization Address City/[facility]/ZIP Co de Phone Number [facility] Department [place] [employer] [place] [address] * POCT glucose (05/22/2024 3:02 AM [facility]) Glucose, POC 149 70 - 199 mg/dL Blood 05/22/2024 3:02 AM [facility] 05/22/2024 3:02 AM [facility] Brissa Ko MD LAB POCT ORDERABLES - DEVIC E Final Result [facility] [place] [address] * POCT glucose (05/21/2024 10:54 PM [facility]) Glucose, POC 122 70 - 199 mg/dL Blood 05/21/2024 10:5 4 PM [facility] 05/21/2024 10:54 PM [facility] Brissa Ko MD LAB POCT ORDERABLES - DEVIC E Final Result Performing Organization Address City/[facility] Co de Phone Number [facility] [place] [address] * eGFR (05/21/2024 8:54 PM [facility]) Pathologist [facility] [place] eGFR 71 [...] last reviewed 2021. Blood 05/21/2024 8:54 PM [facility] 05/21/2024 9:16 PM [facility] Brissa Ko MD LAB BLOOD ORDERABLES Final Result Performing Organization Address City/[facility]/ZIP Co de Phone Number [facility] [place] [address] * (ABNORMAL) CBC without differential (05/21/2024 8:54 PM [facility]) [facility] WBC 6.7 3.8 - 9.9 K/cumm Hgb 9.5(L) 11.9 - 15.5 g/dL [facility] Hct 29.7(L) 35.6 - 45.5 % [facility] Plt 145(L) 150 - 400 K/cumm [facility] MPV 10.9 9.1 - 12.3 fL [facility] RBC 3.14(L) 3.90 - 5.20 M/cumm [facility] MCV 94.6 81.3 - 96.4 fL [facility] MCH 30.3 27.1 - 33.3 pg [facility] MCHC 32.0(L) 32.3 - 35.7 g/dL [facility] RDW CV 14.8 11.1 - 14.9 % [facility] RDW SD 51.6(H) 35.7 - 48.1 fL [facility] NRBC abs 0.00 0.00 - 0.01 K/cumm [facility] Blood 05/21/2024 8:54 PM [facility] 05/21/2024 9:16 PM [facility] Brissa Ko MD LAB BLOOD ORDERABLES Final Result Performing Organization Address [facility] de Phone Number [facility] [place] [employer] [place] [address] * Phosphorus (05/21/2024 8:54 PM [facility]) [facility] Phosphorus, pl 2.5 2.3 - 4.5 mg/dL Blood 05/21/2024 8:54 PM [facility] 05/21/2024 9:16 PM [facility] Brissa Ko MD LAB BLOOD ORDERABLES Final Result Performing Organization Address [facility] Co de Phone Number [facility] Department [place] [employer] [place] [address] * Magnesium (05/21/2024 8:54 PM [facility]) [facility] Magnesium 1.9 1.4 - 2.5 mg/dL Blood 05/21/2024 8:54 PM [facility] 05/21/2024 9:16 PM [facility] Brissa Ko MD LAB BLOOD ORDERABLES Final Result Performing Organization Address [facility] de Phone Number [facility] [place] [address] * (ABNORMAL) Blood gas, arterial (05/21/2024 8:54 PM [facility]) [facility] pH, Art 7.45 7.35 - 7.45 PCO2, Arterial 52(H) 35 - 45 mmHg [facility] PO2, Arterial 63(L) 83 - 108 mmHg [facility] HCO3 Art (Calculated) 37(H) 20 - 30 mmol/L [facility] BE, art 10 mmol/L [facility] Comment: Interpretive Data No Reference Range Established Current Interpretive Data was last revised on 2017 O2 Sat Art (Measured) 92 90 - 95 % [facility] Blood 05/21/2024 8:54 PM [facility] 05/21/2024 9:09 PM [facility] Brissa Ko MD LAB BLOOD ORDERABLES Final Result Performing Organization Address [facility] de Phone Number [facility] [place] [address] * (ABNORMAL) Basic metabolic panel (05/21/2024 8:54 PM [facility]) [facility] Sodium 143 135 - 145 mmol/L Potassium, pl 3.5 3.3 - 4.9 mmol/L [facility] Chloride 101 97 - 110 mmol/L [facility] CO2 35(H) 22 - 32 mmol/L [facility] Anion gap 7 2 - 15 mmol/L [facility] BUN 19 6 - 25 mg/dL [facility] Creatinine 0.85 0.60 - 1.10 mg/dL [facility] Glucose 125 70 - 199 mg/dL [facility] Comment: Interpretive Data Fasting glucose >/= 126 [...] 2022. Calcium 8.7 8.5 - 10.3 mg/dL [facility] Blood 05/21/2024 8:54 PM [facility] 05/21/2024 9:16 PM [facility] Brissa Ko MD LAB BLOOD ORDERABLES Final Result [facility] [place] [address] * XR Chest 1 View (05/21/2024 8:36 PM [facility]) Anatomical Region Laterality Modality Body, Chest N/A Computed Radiogr aphy 05/22/2024 9:45 AM [facility] Impressions 05/22/2024 10:11 AM [facility] Comparison is made to radiograph dated 05/20/2024. [...] David Hogan M.D. Narrative 05/22/2024 10:11 AM [facility] EXAMINATION: 1 view chest radiograph Procedure Note [...] Result * Critical Care (05/21/2024 8:00 PM [facility]) Narrative Renay Weber MD - 05/21/2024 8:00 PM [facility] Renay Weber MD 05/28/2024 11:57 PM Critical [...] plan with the ICU team and other medical/process improvement consultant staff, making frequent assessments and decisions [...] Result * POCT glucose (05/21/2024 7:43 PM [facility]) Glucose, POC 150 70 - 199 mg/dL Blood 05/21/2024 7:43 PM [facility] 05/21/2024 7:43 PM [facility] Brissa Ko MD LAB POCT ORDERABLES - DEVIC E Final Result Performing Organization Address City/[facility]/ZIP Co de Phone Number [facility] [place] [address] * (ABNORMAL) Blood gas, arterial (05/21/2024 3:11 PM [facility]) pH, Art 7.44 7.35 - 7.45 PCO2, Arterial 50(H) 35 - 45 mmHg [facility] PO2, Arterial 157(H) 83 - 108 mmHg [facility] HCO3 Art (Calculated) 35(H) 20 - 30 mmol/L [facility] BE, art 8 mmol/L [facility] Comment: Interpretive Data No Reference Range Established Current Interpretive Data was last revised on 2017 O2 Sat Art (Measured) 100(H) 90 - 95 % [facility] Blood 05/21/2024 3:11 PM [facility] 05/21/2024 3:16 PM [facility] Sebastian HINOJOSA LAB BLOOD ORDERABLES Fi nal Result [facility] [place] [address] * POCT glucose (05/21/2024 3:10 PM [facility]) Glucose, POC 135 70 - 199 mg/dL Blood 05/21/2024 3:10 PM [facility] 05/21/2024 3:10 PM [facility] Brissa Ko MD LAB POCT ORDERABLES - DEVIC E Final Result Performing Organization Address [facility] [place] de Phone Number [facility] [place] [address] * POCT glucose (05/21/2024 11:14 AM [facility]) Glucose, POC 122 70 - 199 mg/dL Blood 05/21/2024 11:1 4 AM [facility] 05/21/2024 11:14 AM [facility] Brissa Ko MD LAB POCT ORDERABLES - DEVIC E Final Result Performing Organization Address [place] Healthcare/[facility] [place] de Phone Number [facility] [place] [address] * (ABNORMAL) Thyroid Function [place] (05/21/2024 9:07 AM [place]) Pathologist [facility] [place] TSH 5.20(H) 0.30 - 4.20 mcIUnit/mL Blood 05/21/2024 9:07 AM [place] 05/21/2024 9:28 AM [place] Result [facility] Sebastian HINOJOSA LAB BLOOD ORDERABLES Fi nal Result Performing Organization Address [facility] [place] de Phone Number [facility] [place] [address] * Triglycerides (05/21/2024 9:07 AM [place]) Triglycerides 139 <=149 mg/dL Comment: Interpretive Data [...] revised on 2017. Blood 05/21/2024 9:07 AM [place] 05/21/2024 9:28 AM [place] Narrative [facility] 05/21/2024 9:56 AM [place] While on propofol infusion. Preston HINOJOSA LAB BLOOD ORDER TEDDY Final Result Performing Organization Address [facility] [place] de Phone Number [facility] [place] [address] * T4, free (05/21/2024 9:07 AM [place]) Free T4 1.35 0.90 - 1.70 ng/dL Blood 05/21/2024 9:07 AM [place] 05/21/2024 9:28 AM [place] Narrative [facility] 05/21/2024 10:34 AM [place] This test was reflexed from a TSH result. Sebastian HINOJOSA LAB BLOOD ORDERABLES Ed ited Result - Final Performing Organization Address [facility] Co de Phone Number [facility] [place] [address] * Ammonia (05/21/2024 9:07 AM [place]) Ammonia 27 <=50 mcmol/L Blood 05/21/2024 9:07 AM [place] 05/21/2024 9:29 AM [place] Sebastian HINOJOSA LAB BLOOD ORDERABLES Fi nal Result [facility] [place] [address] * POCT glucose (05/21/2024 7:24 AM [place]) Glucose, POC 138 70 - 199 mg/dL Blood 05/21/2024 7:24 AM [place] 05/21/2024 7:24 AM [place] us Brissa Ko MD LAB POCT ORDERABLES - DEVIC E Final Result Performing Organization Address [facility] Co de Phone Number [facility] [place] [address] * Critical Care (05/21/2024 7:02 AM [place]) Narrative Earnestine Kelly MD - 05/21/2024 7:02 AM [place] Earnestine Kelly MD 05/22/2024 3:03 PM Critical [...] plan with the ICU team and other medical/process improvement consultant staff, making frequent assessments and decisions [...] monitors, laboratory results, and imaging us Sebastian Annette Mains And Service Supervisor PA IN CLINIC/BEDSIDE ORDER TEDDY Final Result * POCT glucose (05/21/2024 3:47 AM [place]) Glucose, POC 161 70 - 199 mg/dL Blood 05/21/2024 3:47 AM [place] 05/21/2024 3:47 AM [place] Brissa Ko MD LAB POCT ORDERABLES - DEVIC E Final Result [facility] [place] [address] * XR Chest 1 View (05/21/2024 12:12 AM [place]) Anatomical Region Laterality Modality Body, Chest N/A Computed Radiogr aphy 05/21/2024 8:02 AM [place] Impressions 05/21/2024 8:02 AM [place] Comparison is made to radiograph of 05/20/2024 [...] Nestor Seth M.D. Narrative 05/21/2024 8:02 AM [place] EXAMINATION: 1 view chest radiograph Procedure Note [...] from Last 3 Months Insurance MEDICARE MEDICARE [facility] MEDICARE SUPPLEMENT MEDICARE [facility] MEDICARE SUPPLEMENT Advance Directives For more information, please contact: [phone] * Full Code (Latest Code Status on File) Date Activated Date Inactivated Comments 05/13/2024 8:42 PM 05/27/2024 11:27 PM Care Teams Photovoltaic Technician Relationship Specialty Start Date End Date Meagan Yusuf MD PCP - General Family Medicine 05/22/23 Annemarie Lea MD [address] [place] [address] Consulting Physician Otolaryngology 05/27/24 Margy Walker MD PhD [address] [place] [address] Consulting Physician Plastic Surgery 05/27/24 Geraldine Barbosa NP [address] [place] [address] Nurse Practitioner Neurosurgery 05/27/24
--- OUTSIDE RECORDS SUMMARY | 2024-08-18 09:45 | XMS_ITS | Encounter Summary ---
Author Organization [employer] Address 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
--- OUTSIDE RECORDS SUMMARY | 2024-08-18 09:45 | XMS_ITS ---
Author Name Auto Generated, Auto Generated Organization [employer] Address [address] [place] [address] Phone [phone] Care Team Providers Care Superintendent Board Mill Name Role Phone Camila Spence Unavailable Liseth Suherine Unavailable Meagan Turner Unavailable Functional Status No Results Mental Status No Results Allergies and Intolerances Name Onset Date Reaction Severity thiopental (Allergy) SatFeb 06 12:18:00 EST 202 3 penicillin (Allergy) SatFeb 06 12:18:00 EST 202 3 Encounters Program Name Primary Diagnosis Admission Date/Time Dis charge Date/Time Residential Care [facility] SatAugust 19 13:00:00 EDT 2023Sep 02 11:00:00 EDT 2023 [facility] SatJun 16 10:00:00 EDT [...] Hours for 4 Days Indication: Pneumonia (2 [id number]) SatFeb 06 14:00:00 2022Feb 10 13:59:00 2022 [...] 2022 * End Date: * Text: * 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 * [id number] Ping receives a therapeutic diet. (12)* Code: * Start Date: SatJun 25 00:00:00 EDT 2024 * End Date: * Text: [id number] Ping receives a therapeutic diet. (12) * LSS_COPD - Ping has diagnosis of COPD.* Code: * Start Date: SatJun 29 00:00:00 EDT 2024 * End Date: * Text: LSS_COPD - Ping has diagnosis of COPD. * LSS_Psychotropic Drug [...] Incontinence1 - Ping is occasionally incontinent. * GIANNASAmlicarSocial Allegra Feng will be involved in discharge [...] his or her ability. * GIANNASAmilcarSocial Allegra Feng's wishes will be followed (Advanced Directive/Code Status).* Code: * Start Date: SatJun 29 00:00:00 EDT 2024 * End Date: * Text: GIANNASAmilcarSocial Allegra Feng's wishes will be followed (Advanced Directive/Code Status). * GIANNASAmilcarSocial Allegra Feng's wishes will be [...] /min SatJul 07 08:16 :22 EDT 2024 Pulse Oximetry 95.00 % SatJul 07 08:16 :22 EDT 2024 Respiratory rate 18.00 /min SatJul 07 08:1 6:22 EDT 2024 Body temperature 98.60 [degF] SatJul 07 08:1 6:22 EDT 2024 Pulse Oximetry 93.00 % SatJul 07 05:21 :36 EDT 2024 Systolic Blood Pressure 98.00 mm[Hg] SatJul 07 00:21:31 EDT 2024 Diastolic Blood Pressure 62.00 mm[Hg] SatJul 07 00:21:31 EDT 2024 Heart Rate 95.00 /min SatJul 07 00:21 :31 EDT 2024 Pulse Oximetry 93.00 % SatJul 07 00:21 :31 EDT 2024 Respiratory rate 18.00 /min SatJul 07 00:2 1:31 EDT 2024 Body temperature 98.20 [degF] SatJul 07 00:2 1:31 EDT 2024 Pulse [...] 2024 Diastolic Blood Pressure 86.00 mm[Hg] Sat 14 15:36:21 EDT 2024 Heart Rate 90.00 /min SatJul 06 15:36 :21 EDT 2024 Systolic Blood Pressure 110.00 mm[Hg] Sat 14 09:29:59 EDT 2024 Diastolic Blood Pressure 76.00 mm[Hg] Sat 14 09:29:59 EDT 2024 Systolic Blood Pressure 110.00 [...] [degF] SatJul 06 09:2 9:59 EDT 2024 Pulse Oximetry 93.00 % SatJul 06 09:29 :59 EDT 2024 Respiratory rate 20.00 /min SatJul [...] [degF] SatJul 06 00:4 1:34 EDT 2024 Pulse Oximetry 94.00 % SatJul 06 00:41 :34 EDT 2024 Respiratory rate 18.00 /min SatJul 06 00:4 1:34 EDT 2024 Systolic Blood Pressure 146.00 mm[Hg] [...] Sun Jul 05 10:17 :11 EDT 2024 Respiratory rate 20.00 /min Sun [...] Sun Apr 13 09:15 :28 EDT 2024 Systolic Blood Pressure 133.00 mm[Hg] Sun Apr 01:05:24 EDT 2024 Diastolic Blood Pressure 89.00 mm[Hg] Sun Jun 13 01:05:24 EDT 2024 Heart Rate 94.00 /min Sun Jun 13 01:05 :24 EDT 2024 Body temperature 97.10 [degF] Sun Jun 13 01:0 5:24 EDT 2024 Pulse Oximetry 94.00 % Sun Jun 13 01:05 :24 EDT 2024 Respiratory rate 18.00 /min Sun Jul 05 01:0 5:24 EDT 2024 Pulse Oximetry 94.00 % Sun Jul 05 01:05 :24 EDT 2024 Pulse Oximetry 94.00 % Sun Apr 01:05 :24 EDT 2024 Systolic Blood Pressure 122.00 mm[Hg] Sat Apr 12 22:04:55 EDT 2024 Diastolic Blood Pressure 80.00 mm[Hg] [facility] Apr 12 22:04:55 EDT 2024 Systolic Blood Pressure 122.00 mm[Hg] [facility] Apr 12 22:04:55 EDT 2024 Diastolic Blood Pressure 80.00 mm[Hg] [facility] Apr 12 22:04:55 EDT 2024 Heart Rate 94.00 /min [facility] Apr 12 22:04 :55 EDT 2024 Heart Rate 94.00 /min [facility] Apr 12 22:04 :55 EDT 2024 Body weight 212.80 [lb_av] [facility] Apr 12 17:09 :01 EDT 2024 Systolic Blood Pressure 119.00 mm[Hg] Sat Apr 12 14:27:00 EDT 2024 Diastolic Blood Pressure 83.00 mm[Hg] [facility] Apr 12 14:27:00 EDT 2024 Heart Rate 98.00 /min [facility] Apr 12 14:27 :00 EDT 2024 Systolic Blood Pressure 114.00 mm[Hg] Sat Apr 12 11:56:23 EDT 2024 Diastolic Blood Pressure 66.00 mm[Hg] Sat Apr 12 11:56:23 EDT 2024 Heart Rate 95.00 /min Sat Apr 12 11:56 :23 EDT 2024 Body temperature 98.30 [degF] Sat Apr 12 11:5 6:23 EDT 2024 Pulse Oximetry 93.00 % [facility] Apr 12 11:56 :23 EDT 2024 Respiratory rate 18.00 /min Sat Apr 12 11:5 6:23 EDT 2024 Pulse Oximetry 93.00 % [facility] Apr 12 11:56 :23 EDT 2024 Systolic Blood Pressure 104.00 mm[Hg] Sat 12 08:51:15 EDT 2024 Diastolic Blood Pressure 66.00 mm[Hg] Sat Jun 12 08:51:15 EDT 2024 Systolic Blood Pressure 104.00 mm[Hg] Sat Apr 12 08:51:15 EDT 2024 Diastolic Blood Pressure 66.00 mm[Hg] Sat Jun 12 08:51:15 EDT 2024 Heart Rate 95.00 /min Sat 12 08:51 :15 EDT 2024 Heart Rate 95.00 /min SatJul 04 08:51 :15 EDT 2024 Systolic Blood Pressure 114.00 mm[Hg] SatJul 03 23:38:37 EDT 2024 Diastolic Blood Pressure 68.00 mm[Hg] SatJul 03 23:38:37 EDT 2024 Heart Rate 89.00 /min SatJul 03 23:38 :37 EDT 2024 Pulse Oximetry 97.00 % SatJul 03 23:38 :37 EDT 2024 Respiratory rate 18.00 /min SatJul 03 23:3 8:37 EDT 2024 Body temperature 97.80 [degF] SatJul 03 23:3 8:37 EDT 2024 Pulse [...] /min SatJul 03 08:17 :26 EDT 2024 Pulse Oximetry 96.00 % SatJul 03 08:17 :26 EDT 2024 Respiratory rate 20.00 /min SatJul 03 08:1 7:26 EDT 2024 Body temperature 98.20 [degF] SatJul 03 08:1 7:26 EDT 2024 Pulse Oximetry 96.00 % SatJul 03 08:17 :26 EDT 2024 Pulse Oximetry 95.00 % Johana Jul 02 23:24 :56 EDT 2024 Systolic Blood Pressure 111.00 mm[Hg] Johana Jul 02 22:46:18 EDT 2024 Diastolic Blood Pressure 66.00 mm[Hg] Johana Jul 02 22:46:18 EDT 2024 Heart Rate 99.00 /min SatJul 02 22:46 :18 EDT 2024 Body temperature 98.50 [degF] Johana Jul 02 22:4 6:18 EDT 2024 Pulse Oximetry 94.00 % SatJul 02 22:46 :18 EDT 2024 Respiratory rate 18.00 /min Johana Jul 02 22:4 6:18 EDT 2024 Pulse Oximetry 94.00 % SatJul 02 22:46 :18 EDT 2024 Systolic Blood Pressure 111.00 mm[Hg] Johana Apr 10 21:02:29 EDT 2024 Diastolic Blood Pressure 66.00 mm[Hg] Johana Jul 02 21:02:29 EDT 2024 Systolic Blood Pressure 111.00 mm[Hg] Johana Jul 02 21:02:29 EDT 2024 Diastolic Blood Pressure 66.00 mm[Hg] Johana Jul 02 21:02:29 EDT 2024 Heart Rate 99.00 /min Johnaa Jul 02 21:02 :29 EDT 2024 Heart [...] :41 EDT 2024 Heart Rate 91.00 /min Joahna Jul 02 09:45 :41 EDT 2024 Heart Rate 91.00 /min Johana Jul 02 09:45 :41 EDT 2024 Pulse Oximetry 96.00 % Johana Jul 02 09:45 :41 EDT 2024 Respiratory rate 20.00 /min Johana Jul 02 09:4 5:41 EDT 2024 Body temperature 98.30 [degF] Johana Jul 02 09:4 5:41 EDT 5 Pulse Oximetry 96.00 % Johana Jul 02 09:45 :41 EDT 5 Systolic Blood Pressure 111.00 mm[Hg] SatJul 01 23:27:57 EDT 2024 Diastolic Blood Pressure 68.00 mm[Hg] SatJul 01 23:27:57 EDT 2024 Heart Rate 78.00 /min SatJul 01 23:27 :57 EDT 2024 Pulse Oximetry 97.00 % SatJul 01 23:27 :57 EDT 2024 Respiratory rate 22.00 /min SatJul 01 23:2 7:57 EDT 2024 Body temperature 97.90 [degF] SatJul 01 23:2 7:57 EDT 2024 Pulse [...] /min SatJul 01 08:35 :51 EDT 2024 Pulse Oximetry 92.00 % SatJul 01 08:35 :51 EDT 2024 Respiratory rate 20.00 /min SatJul 01 08:3 5:51 EDT 2024 Body temperature 98.50 [degF] SatJul 01 08:3 5:51 EDT 2024 Pulse [...] /min SatJun 30 20:37 :15 EDT 2024 Pulse Oximetry 95.00 % SatJun 30 20:37 :15 EDT 2024 Respiratory rate 20.00 /min SatJun 30 20:3 7:15 EDT 2024 Body temperature 97.80 [degF] SatJun 30 20:3 7:15 EDT 2024 Pulse [...] /min SatJun 30 11:13 :48 EDT 2024 Pulse Oximetry 93.00 % SatJun 30 11:13 :48 EDT 2024 Respiratory rate 20.00 /min SatJun 30 11:1 3:48 EDT 2024 Body temperature 98.20 [degF] SatJun 30 11:1 3:48 EDT 2024 Pulse [...] 86.00 /min SatJun 29 22:31 :36 EDT 202 Heart Rate 86.00 /min SatJun 29 22:31 :36 EDT 2024 Heart Rate 86.00 /min SatJun 29 22:31 :36 EDT 2024 Pulse Oximetry 96.00 % SatJun 29 22:31 :36 EDT 2024 Respiratory rate 18.00 /min SatJun 29 22:3 1:36 EDT 2024 Body temperature 98.40 [degF] SatJun 29 22:3 1:36 EDT 2024 Body weight 219.00 [lb_av] SatJun [...] /min SatJun 29 11:55 :35 EDT 2024 Pulse Oximetry 95.00 % SatJun 29 11:55 :35 EDT 2024 Respiratory rate 18.00 /min SatJun 29 11:5 5:35 EDT 2024 Body temperature 98.20 [degF] SatJun 29 11:5 5:35 EDT 2024 Systolic Blood Pressure 117.00 mm[Hg] [...] Sun Jun 28 23:37 :51 EDT 2024 Respiratory rate 18.00 /min Sun Jun 28 23:3 7:51 EDT 2024 Body temperature 98.30 [degF] Sun [...] Sun Jun 28 10:12 :35 EDT 2024 Respiratory rate 20.00 /min Sun Jun 28 10:1 2:35 EDT 2024 Body temperature 97.80 [degF] Sun [...] :56 EDT 2024 Pulse Oximetry 96.00 % [facility] Jun 27 23:24 :56 EDT 2024 Respiratory rate 18.00 /min Sat Jun 27 23:2 4:56 EDT 2024 Body temperature 97.80 [degF] Sat [...] 5 Systolic Blood Pressure 105.00 mm[Hg] Sat Jun 05 15:30:10 EDT 5 Diastolic Blood Pressure 63.00 mm[Hg] Sat Jun 05 15:30:10 EDT 5 Heart Rate 65.00 /min Sat Jun 05 15:30 :10 EDT 2024 Body weight 219.20 [lb_av] Sat Jun 05 [...] Sat Jun 05 09:03 :42 EDT 5 Pulse Oximetry 96.00 % Sat Jun 27 09:03 :42 EDT 2024 Respiratory rate 20.00 /min Sat Jun 27 09:0 3:42 EDT 2024 Body temperature 98.20 [degF] Sat Jun 05 09:0 3:42 EDT 2024 Pulse Oximetry 96.00 % Sat Jun 05 09:03 :42 EDT 2024 Systolic Blood Pressure 118.00 mm[Hg] Sat Jun 27 00:34:04 EDT 2024 Diastolic Blood Pressure 58.00 mm[Hg] Sat Jun 27 00:34:04 EDT 2024 Heart Rate 88.00 /min Sat Jun 27 00:34 :04 EDT 2024 Pulse Oximetry 94.00 % Sat Jun 27 00:34 :04 EDT 2024 Respiratory rate 18.00 /min Sat Jun 27 00:3 4:04 EDT 2024 Body temperature 98.20 [degF] Sat [...] /min SatJun 26 09:49 :20 EDT 2024 Pulse Oximetry 94.00 % SatJun 26 09:49 :20 EDT 2024 Respiratory rate 18.00 /min SatJun 26 09:4 9:20 EDT 2024 Body temperature 98.20 [degF] SatJun 26 09:4 9:20 EDT 2024 Pulse Oximetry 94.00 % SatJun 26 09:49 :20 EDT 2024 Pulse Oximetry 92.00 % SatJun 26 06:15 :11 EDT 2024 Systolic Blood Pressure 103.00 mm[Hg] SatJun 26 00:42:14 EDT 2024 Diastolic Blood Pressure 68.00 mm[Hg] SatJun 26 00:42:14 EDT 2024 Heart Rate 76.00 /min SatJun 26 00:42 :14 EDT 2024 Pulse Oximetry 98.00 % SatJun 26 00:42 :14 EDT 2024 Respiratory rate 20.00 /min SatJun 26 00:4 2:14 EDT 2024 Body temperature 98.00 [degF] SatJun 26 00:4 2:14 EDT 2024 Pulse [...] EDT 2024 Systolic Blood Pressure 117.00 mm[Hg] Johnaa Jun 18 09:47:03 EDT 2024 Diastolic Blood [...] 2023 Diastolic Blood Pressure 83.00 mm[Hg] [facility] Aug 08 08:12:00 EDT 4 Systolic Blood Pressure 125.00 mm[Hg] [facility] Aug 08 08:12:00 EDT 4 Diastolic Blood Pressure 83.00 mm[Hg] Sat Aug 08 08:12:00 EDT 4 Heart Rate 86.00 /min Sat Aug 08 08:12 :00 EDT 4 Heart Rate 86.00 /min [facility] Aug 08 08:12 :00 EDT 4 Body temperature 98.50 [degF] Sat Aug 08 08:1 2:00 EDT 4 Respiratory rate 20.00 /min Sat Aug 08 08:1 2:00 EDT 4 Pulse Oximetry 95.00 % [facility] Aug 08 08:12 :00 EDT 4 Systolic [...] EDT 2023 Heart Rate 78.00 /min [facility] Aug 23 20:32 :26 EDT 4 Systolic Blood Pressure 119.00 mm[Hg] [facility] Aug 23 19:37:36 EDT 2023 Diastolic Blood Pressure 72.00 mm[Hg] [facility] Aug 23 19:37:36 EDT 2023 Heart Rate 81.00 /min [facility] Aug 23 19:37 :36 EDT 4 Body temperature 97.70 [degF] [facility] Aug 23 19:3 7:36 EDT 2023 Respiratory rate 18.00 /min [facility] Aug 23 19:3 7:36 EDT 2023 Pulse Oximetry 92.00 % [facility] Aug 23 19:37 :36 EDT 2023 Body weight 198.80 [lb_av] [facility] Aug 23 17:53 :45 EDT 2023 Systolic Blood Pressure 113.00 mm[Hg] [facility] Aug 23 08:59:28 EDT 2023 Diastolic Blood Pressure 82.00 mm[Hg] [facility] Aug 23 08:59:28 EDT 2023 Systolic Blood Pressure 113.00 mm[Hg] [facility] Aug 23 08:59:28 EDT 2023 Diastolic Blood Pressure 82.00 mm[Hg] [facility] Aug 23 08:59:28 EDT 2023 Systolic Blood Pressure 113.00 mm[Hg] [facility] Aug 23 08:59:28 EDT 2023 Diastolic Blood Pressure 82.00 mm[Hg] [facility] Aug 23 08:59:28 EDT 2023 Heart Rate 80.00 /min [facility] Aug 23 08:59 :28 EDT 2023 Heart Rate 80.00 /min [facility] Aug 23 08:59 :28 EDT 2023 Body temperature 98.30 [degF] [facility] Aug 23 08:5 9:28 EDT 2023 Respiratory rate 22.00 /min [facility] Aug 23 08:5 9:28 EDT 2023 Pulse Oximetry 92.00 % [facility] Aug 23 08:59 :28 EDT 2023 Systolic Blood Pressure 113.00 mm[Hg] SatAugust 22 22:32:16 EDT 2023 Diastolic Blood Pressure 61.00 mm[Hg] SatAugust 22 22:32:16 EDT 2023 Pulse Oximetry 93.00 % SatAugust 22 22:32 :16 EDT 2023 Heart Rate 62.00 /min SatAugust 22 22:32 :16 EDT 2023 Respiratory rate 18.00 /min SatAugust 22 22:3 2:16 EDT 2023 Body temperature 98.50 [degF] SatAugust 22 22:3 2:16 EDT 2023 Systolic Blood Pressure 113.00 mm[Hg] [...] 77.00 mm[Hg] SatAugust 22 12:03:47 EDT 2023 Pulse Oximetry 95.00 % SatAugust 22 12:03 :47 EDT 2023 Heart Rate 94.00 /min SatAugust 22 12:03 :47 EDT 2023 Respiratory rate 18.00 /min SatAugust 22 12:0 3:47 EDT 2023 Body temperature 98.50 [degF] SatAugust 22 12:0 3:47 EDT 2023 Systolic Blood Pressure 122.00 mm[Hg] [...] 73.00 mm[Hg] SatAugust 21 22:06:19 EDT 2023 Pulse Oximetry 96.00 % SatAugust 21:06 :19 EDT 2023 Heart Rate 109.00 /min SatAugust 21 22:06 :19 EDT 2023 Respiratory rate 17.00 /min SatAugust 21 22:0 6:19 EDT 2023 Body temperature 98.70 [degF] SatAugust 21 22:0 6:19 EDT 2023 Systolic Blood Pressure 136.00 mm[Hg] [...] /min SatAugust 21 08:59 :17 EDT 2023 Pulse Oximetry 92.00 % SatAugust 21 08:59 :17 EDT 2023 Heart Rate 80.00 /min SatAugust 21 08:59 :17 EDT 2023 Respiratory rate 20.00 /min SatAugust 21 08:5 9:17 EDT 2023 Body temperature 97.80 [degF] SatAugust 21 08:5 9:17 EDT 2023 Systolic Blood Pressure 120.00 mm[Hg] [...] 99.00 mm[Hg] SatAugust 20 20:33:21 EDT 2023 Pulse Oximetry 92.00 % SatAugust 20 20:33 :21 EDT 2023 Heart Rate 126.00 /min SatAugust 20 20:33 :21 EDT 2023 Respiratory rate 16.00 /min SatAugust 20 20:3 3:21 EDT 2023 Body temperature 98.50 [degF] SatAugust 20 20:3 3:21 EDT 2023 Body weight 202.80 [lb_av] SatAugust [...] 85.00 mm[Hg] SatAugust 20 08:41:12 EDT 2023 Pulse Oximetry 98.00 % SatAugust 20 08:41 :12 EDT 2023 Heart Rate 85.00 /min SatAugust 20 08:41 :12 EDT 2023 Respiratory rate 20.00 /min SatAugust 20 08:4 1:12 EDT 2023 Body temperature 98.40 [degF] SatAugust 20 08:4 1:12 EDT 2023 Systolic Blood Pressure 118.00 mm[Hg] SatAugust 19 23:01:34 EDT 2023 Diastolic Blood Pressure 82.00 mm[Hg] SatAugust 19 23:01:34 EDT 2023 Heart Rate 125.00 /min SatAugust 19:01 :34 EDT 2023 Systolic Blood Pressure 118.00 mm[Hg] SatAugust 19 19:38:00 EDT 2023 Diastolic Blood Pressure 82.00 mm[Hg] SatAugust 19 19:38:00 EDT 2023 Heart Rate 126.00 /min SatAugust 19 19:38 :00 EDT 2023 Respiratory rate 20.00 /min SatAugust 19 19:3 8:00 EDT 2023 Pulse Oximetry 92.00 % SatAugust 19 19:38 :00 EDT 2023 Body temperature 98.50 [degF] SatAugust 19 19:3 8:00 EDT 2023 Reason for Referral Past Medical [...]
--- OUTSIDE RECORDS SUMMARY | 2024-08-18 09:45 | XMS_ITS | Patient Health Record ---
Author Organization [employer] Address [address] [place]. [address] [place] [id number] Care Team Providers Care Machine Skiver Name Role Phone Juanita BROWN, Strang Primary Care Provider Unavailabl e Reason For Referral No Information Plan Of Treatment No Information Insurance Providers Payer Name Payer Address Payer Phone Subscriber Number Group Number Insured Name Patient Relationship to Insured Coverage Start Date Coverage End Date [facility] [employer] E2 [address] [address] [place] [phone] [id number] Ping Waller Self - patient is the insured
--- OUTSIDE RECORDS SUMMARY | 2024-08-18 09:46 | XMS_ITS | Data Portability ---
Author Organization [place] - [facility] OFFICE Address [address] [place] [address] Care Team Providers Care Supply Chain Technician Name Role Phone JUAN DAVID PAVON Primary Care Provider Assessment Encounter Date [...] current medications, and medical follow-up as noted. [email or web address] Not available 10/26/2020 14:30:27 11/09/2020 11/09/2020 Discussed [...] Not available 17:10:42 electrocard iogram 2020 021 Not available 14:35:30 Medication Orders rosuvastati n 40 mg tablet 2020 021 [facility]60360, [address], [place], [id number], 12:58:37 lisinopril 5 mg tablet 2020 [facility] #93636, [address], [place], [id number], 12:58:39 spironolact one 25 mg tablet 2020 [facility] #94243, [address], [place], [id number], 12:58:59 aspirin 81 mg tablet,lamont yed release 2020 [facility] #76460, [address] [place] [address], [id number], 14:35:37 clopidogrel 75 mg tablet 2020 [facility] #42159, [address] [place] [address], [id number], 14:35:38 rosuvastati n 20 mg tablet 2020 [facility] #34544, [address], [place], [id number], 14:35:39 metoprolol succinate ER 25 mg tablet,exte nded release 24 hr 2020 [facility] #03446, [address] [place] [address], [id number], 14:35:39 potassium chloride ER 20 mEq tablet,exte nded release 2020 [facility] #45925, [facility] [address], [place], [id number], 14:35:37 furosemide 40 mg tablet 2020 021 [facility]46987, [address], [place], [id number], 14:35:38 Patient TargetsNo targets recorded. Patient Instructions Encounter Date Encounter Id Patient Instructions Last Modified By Organization Details Last Modified Time 10/26/2020 [id number] high cholesterol : care instructions [email or web address] Not available 10/26/2020 14:35:29 When You Want to Lose Weight: Care Instructions Not available 10/26/2020 14:35:30 sleep apnea: car e instructions [email or web address] Not available 10/26/2020 14:35:30 high blood pressure: care instructions Not available 10/26/2020 14:35:30 learning about high blood pressure [email or web address] Not available 10/26/2020 14:35:30 11/09/2020 [id number] high cholesterol : care instructions [email or web address] Not available 11/09/2020 12:58:27 When You Want to Lose Weight: Care Instructions [email or web address] Not available 11/09/2020 12:58:27 sleep apnea: car e instructions [email or web address] Not available 11/09/2020 12:58:27 high blood pressure: care instructions [email or web address] Not available 11/09/2020 12:58:27 learning about high blood pressure [email or web address] Not available 11/09/2020 12:58:27 Reason for Referral None Reported. Results Created Date Observation Date Name Description Value Unit Range Abnormal Flag Note LastModifiedBy Organization Detail LastModifiedTime 10/26/19 21 elect low del castillogr am No observ ation record ed. [email or web address] Sharif Bustamante MD [address] [facility] [address], [place], [address], 10/26/2020 14:26:29 10/28/19 21 10/01/2020 US, doppl [...] ation record ed. елена Bustamante MD [address] [facility] [address], [place], [address], 12/05/2020 17:10:42 11/17/19 21 10/26/2020 elect rocar diogr am No observ ation record ed. Not Available 11/18 13:56:02 Result Notes Documentation Provider Name and Address Organization Details Recorded Time Lipid Panel, Blood : 10/28/20:Na 137,K 3.9,Cl 102,Co2 30,Glu 94,Bun 18,Cr 0.7,AST 33,ALT 11. 10/28/20:TC 190,TG 79,HDL 87,LDL 83. 10/28/20:WBC 5.4,RBC 3.83,HGB 11.4,HCT 36.7,PLT 108. Dominic Rodriguez [place], [place] - [facility] 11/14/2020 16:16:49 Lipid Panel, Blood : 10/28/20:Na 137,K 3.9,CL 102,CO2 30,Glu 94,Bun 18,Cr 0.7,AST 33,ALT 11. 10/28/20:TC 190,TG 79,HDL 87,LDL pending. Dominic Rodriguez [facility] 01/24/2021 13:55:17 Problems Name Problem SNOMED Code Status Onset Date Resolution Date Notes Provider Name and Address Organization Details Recorded Time Heart failure with reduced ejection fraction 268794698 [facility] 13:41:26 Essential hypertension 84789598 Active [facility] 13:48:17 Hyperlipidemia 14428137 Active 2020 Desmond Padilla [facility] 13:48:29 Obstructive sleep apnea syndrome 95050396 [facility] 13:48:37 Subsequent non-ST segment elevation myocardial infarction 370107922 Active 2020 Desmond beyer [facility] 13:59:24 Obesity 207568961 [facility] 14:26:10 Problem Notes None recorded. Medical Equipment None Reported. [...] Not Available Not Available [employer] [facility] [address] [place] active Not Available Not Available Not Available Vitals Date Recorded Body height Body mass index (BMI) Body weight Heart rate Respiratory rate Oxygen saturation Oxygen saturation in Arterial blood by Pulse oximetry Systolic And Diastolic Provider Name and Address Organization Details Last Updated DateTime 1 162.56 cm 42.6 kg/m2 267512. 91 g 70 /min 16 /min 92 % 92 % 114/82 mm[Hg] Juan David Jarquin [facility] 1 13:04:20 Date Recorded Body height Body mass index (BMI) Body weight Heart rate Oxygen saturation Oxygen saturation in Arterial blood by Pulse oximetry Inhaled oxygen flow rate Systolic And Diastolic Provider Name and Address Organization Details Last Updated DateTime 1 162.56 cm 43.1 kg/m2 929183. 68 g 75 /min 97 % 97 % 4 L/min 118/84 mm[Hg] DAVID KINGSTON [facility] 1 11:48:40 Social History None recorded. Functional Status Question Answer Note LastModified by Organization D etails LastModified Time What is your level of alcohol consumption? Moderate [email or web address] Information not available 10/26/2020 Mental Status None recorded. Family History Nothing Reported Notes:No premature [place]. Medical History Condition Response Hyperlipidemia Y Hypertension Y Gynecological HistoryNo gynecological history recorded. Obstetrics History GPAL:G 0 P 0 0 0 0 Past Encounters Encounter ID Performer Location Encounter Start Date Encounter Closed Date Diagnosis/Indication Diagnosis SNOMED-CT Code Diagnosis ICD10 Code Diagnosis Note [id number] Desmond Padilla MD [place] OFFICE [facility] [place] [address] 10/26/2020 12:49:39 10/26/2020 14:36:31 Heart failure with reduced ejection fraction 206831919 I50.21 Has nonischemi c cardiomyop athy, HF-rEF. She was in [facility] 09/30/20 with dyspnea, NSTEMI (peak [...] (RVSP 42 mmHg). Begin cardiac rehab at [place]. Patient instructed to taper alcohol to off. Continue metoprolol and Lasix. Consider lisinopril and eventual spironolac tone. Obtain CMP, Mg, TSH, CBC, FLP. Hyperlipidemia 99203170 E78.5 Needs to keep LDL less than 70, and HDL more than 40. Obtain FLP. Obstructiv e sleep apnea syndrome 48392775 G47.33 She is now compliant with CPAP, with pulm. f/u. Essential hypertension 83653758 I10 Patient's blood pressure is well-contr olled on present medical therapy. Patient is tolerating , without difficulty , the current medication s. I have not made changes to the current regimen. Patient was advised to eat a low-sodium diet (2 grams sodium or less daily). BP diary. Subsequent non-ST segment elevation myocardial infarction 867762848 I22.2 Stable. Had [facility] 10/03/20: mild CAD (mLAD 40% followed by 50% disease which is diffuse from that point towards the end of the vessel), mild-moder ate LV systolic dysfunctio n (LVEF 40%) with nonischemi c cardiomyop athy. Continue ASA, Plavix, metoprolol , statin. Needs to keep LDL less than 70, and HDL more than 40. Maximal medical therapy. Obesity 671436400 E66.9 20 lb. weight loss recommende d over the next 2 months. [id number] Desmond Padilla MD [place] OFFICE [facility] [place] [address] 11/09/2020 11:31:16 11/09/2020 13:02:04 Heart failure with reduced ejection fraction 235766310 I50.21 Has nonischemi c cardiomyop athy, HF-rEF. She was in [facility] 09/30/20 with dyspnea, NSTEMI (peak trop I 1.25), and CHF exacerbati on in setting of hypertensi ve urgency, COPD exacerbati on, untreated TRAVIS, left leg cellulitis (treated with doxycyclin e), possible pneumonia, diuresed with Lasix 40 mg bid. Had [facility] 10/03/20: mild CAD (mLAD 40% followed by [...] (RVSP 42 mmHg). Begin cardiac rehab at [place]. Patient instructed to taper alcohol to off. [...] weeks. Subsequent non-ST segment elevation myocardial infarction 540552987 I22.2 Stable. Had [facility] 10/03/20: mild CAD (mLAD 40% [...] more than 40. Maximal medical therapy. Hyperlipidemia 24097211 E78.5 Needs to keep LDL less than 70, and HDL more than 40. Had 10/28/20: LDL 83Increase d to rosuvastat in 40 mg qHS 11/09/20. Obstructiv e sleep apnea syndrome 26967128 G47.33 She is now compliant with CPAP, with pulm. f/u. Essential hypertension 38973969 I10 Patient's blood pressure is well-contr olled on present medical therapy. Patient is tolerating , without difficulty , the current medication s. I have not made changes to the current regimen. Patient is advised to maintain a blood pressure diary. Patient was advised to eat a low-sodium diet (2 grams sodium or less daily). BP diary. Obesity 835362408 E66.9 20 lb. weight loss recommende d [...] Guarantor Name 10/26/2020 1 [place] Ping Taer [id number] Ping Waller 11/06/2020 2 [place] ([place] [id number] Ping Waller [id number] Ping Christin Notes Date Note Type [...] hospital follow-up for HCF. She was in [facility] 09/30/20 with dyspnea, NSTEMI (peak [...] She had negative LE venous Doppler 09/2020. Patient reports feeling well overall. Patient is active, but is not exercising regularly. No chest pain. No arm pain. No neck pain. No nausea and vomiting. No diaphoresis. No shortness of breath at rest. No dyspnea on exertion. Dyspnea on exertion reported. Dyspnea on exertion reported, improving. No fatigue.No orthopnea. No PND. No leg swelling. Leg swelling reported. Leg swelling reported, intermittent. No palpitation. No dizziness. Dizziness reported. Dizziness reported, postural. No syncope . No pre-syncope. No claudication. No major bleeding events. No side effects from medications. Complete ROS negative except as stated in the HPI and ROS. Had [facility] 10/03/20: mild CAD (mLAD 40% followed by [...] K 3.6, Mg 1.7, Cr 0.8, Had [facility] 10/03/20: mild CAD (mLAD 40% followed by [...] had negative LE venous Doppler 09/2020. Desmond beyer [place] - [facility] 10/26/2020 14:36:29 11/09/2020 [...] hospital follow-up for HCF. She was in [facility] 09/30/20 with dyspnea, NSTEMI (peak trop I 1.25), and CHF exacerbation in setting of hypertensive urgency, COPD exacerbation, untreated TRAVIS, left leg cellulitis (treated with doxycycline), possible pneumonia, diuresed with Lasix 40 mg bid. Had [facility] 10/03/20: mild CAD (mLAD 40% followed by [...] venous Doppler 09/2020. Reports home BP 120/80. Patient reports feeling well overall. Patient is active, but is not exercising regularly. No chest pain. No arm pain. No neck pain. No nausea and vomiting. No diaphoresis. No shortness of breath at rest. No dyspnea on exertion. Dyspnea on exertion reported. Dyspnea on exertion reported, improving. No fatigue.No orthopnea. No PND. No leg swelling. Leg swelling reported. Leg swelling reported, intermittent, left leg, stable. No palpitation. No dizziness. Dizziness reported. Dizziness reported, postural. No syncope . No pre-syncope. No claudication. No major bleeding events. No side effects from medications. Complete ROS negative except as stated in the HPI and ROS. Had [facility] 10/03/20: mild CAD (mLAD 40% followed by [...] 1.4, hgb 11.4, plt 108 lab result [id number] result : hgb 10.7, K 3.6, Mg [...] view 09-30-2020 US, echocardiogram 09-30-2020 Desmond Padilla [place], [place] - [facility] 11/09/2020 12:58:46 OBGyn Episode No OBEpisode recorded.
--- OUTSIDE RECORDS SUMMARY | 2024-08-18 09:46 | XMS_ITS | Encounter Summary ---
Author Organization [facility] Healthcare Address [address] [place] [address] Care Team Providers Care Aircraft Maintenance Director Name Role Phone Meagan Yusuf MD Primary Care Provider + Annemarie Lea MD Unavailable [phone] Margy Walker MD PhD Unavailable [phone] Geraldine Barbosa NP Unavailable [phone] Encounter Details Date Type Department Care Team (Latest Contact Info) Description 08/07/2024 Results Follow-Up [facility] Medical Group Cardiology [address] [place] [address] Radha Jimenez MD [address] [address] Transthoracic Echo (TTE) Complete W [...] on file Legal Sex Female 4:29 PM MANAGER CLINICAL PHARMACY Gender Identity Not on file Sexual Orientation Not on file documented as of this encounter Plan of Treatment Not on file documented as of this encounter Visit Diagnoses Not on filedocumented in this encounter Care Teams Aircraft Maintenance Director Relationship Specialty Start Date End Date Meagan Yusuf MD PCP - General Family Medicine 05/22/23 Annemarie Lea MD [address] [place] [address] Consulting Physician Otolaryngology 05/27/24 Margy Walker MD PhD [address] [place] [address] Consulting Physician Plastic Surgery 05/27/24 Geraldine Barbosa NP [address] [place] [address] Nurse Practitioner Neurosurgery 05/27/24 documented as of this encounter
--- OUTSIDE RECORDS SUMMARY | 2024-08-18 09:46 | XMS_ITS | Clinical Summary ---
Author Organization [facility] Address [address] [place] [address] Phone Care Team Providers Care Army Ranger Name Role Phone Juan David Yusuf MD Primary Care Provider [phone] Allergies Active Allergy Reactions Criticality Noted Date [...] 6 Tablets 42 Tablet 01/30/2018 3:41 PM EQUIPMENT OPERATOR WAREHOUSE 8 Active Active Problems Problem Noted Date [...] on file Legal Sex Female 3:33 AM EQUIPMENT OPERATOR WAREHOUSE Gender Identity Not on file Sexual Orientation Not on file Last Filed Vital Signs Vital Sign Reading Time Taken Comments Blood Pressure 123/62 01/30/2018 12:28 PM EQUIPMENT OPERATOR WAREHOUSE Pulse 74 01/30/2018 12:28 PM EQUIPMENT OPERATOR WAREHOUSE Temperature 36.5 C (97.7 F) 01/30/2018 12:28 PM EQUIPMENT OPERATOR WAREHOUSE Respiratory Rate 10 01/30/2018 12:28 PM EQUIPMENT OPERATOR WAREHOUSE Oxygen Saturation 93% 01/30/2018 12:28 PM EQUIPMENT OPERATOR WAREHOUSE Inhaled Oxygen Concentration - - Weight 116.6 kg (257 lb) 01/28/2018 8:16 AM EQUIPMENT OPERATOR WAREHOUSE Height 167.6 cm (5' 6 ) 01/28/2018 8:16 AM EQUIPMENT OPERATOR WAREHOUSE Body Mass Index 41.48 01/28/2018 8:16 AM EQUIPMENT OPERATOR WAREHOUSE Plan of Treatment Health Maintenance Due Date Last Done Comments DTAP/TDAP/TD VACCINES (1 - Tdap) 12/21/1966 PNEUMOCOCCAL VACCINE 50+ YEARS (1 of 2 - PCV) 12/21/18 67 ZOSTER VACCINE (1 of 2) 12/21/1997 OSTEOPOROSIS SCREENING 12/21/2012 RSV VACCINE (60+ or ) (1 - 1-dose 75+ series) 12/21/2022 INFLUENZA VACCINE (#1) 2023 01/28/2018 Medical Devices Implanted Type Area Permanent Waver Device Identifier Shelf Expiration Date Model / Serial / Lot Shell Ringlc+ Pc 54mm [id number] - [id number] Implanted:Qty: 1 on 11/08/2016 by Abhinav Quesada MD at [facility] Hip Right: Hip [employer] [id number] 09/27/2026 [id number] / / [id number] Liner Arcomxl Rnglc Sz24 [id number] - [id number] Implanted:Qty: 1 on 11/08/2016 by Abhinav Quesada MD at [facility] Hip Right: Hip [employer] [id number] 10/01/2020 [id number] / / [id number] Stem Fem Echo Bmtrc Por Red Lat [id number] - [id number] Implanted:Qty: 1 on 11/08/2016 by Abhinav Quesada MD at [facility] Hip Right: Hip [employer] [id number] 04/11/2025 [id number] / / [id number] Head Modular Noskt 36mm -3mm [id number] - [id number] Implanted:Qty: 1 on 11/08/2016 by Abhinav Quesada MD at [facility] Hip Right: Hip [employer] [id number] 09/25/2026 [id number] / / [id number] Rsp Glenoid Head W Retaining Screw Neutral Sz 32mm Implanted:Qty: 1 on 01/27/2018 by Guerrero Cho MD at [facility] Other Right: Shoulder [employer] 12/05/2023 508-32-10 1 / / [id number] Small Socket Insert 32mm Semi Constrained E Plus Implanted:Qty: 1 on 01/27/2018 by Guerrero Cho MD at [facility] Other Right: Shoulder [employer] 11/29/2022 509-03-03 2 / / [id number] Humeral Stem Small Shell [id number] Implanted:Qty: 1 on 01/27/2018 by Guerrero Cho MD at [facility] Other Right: Shoulder [employer] 11/22/2023 533-10-10 8 / / [id number] Description:All [employer] Surgical shoulder components are processed on requisition,[id number]. Rsp Glenoid Baseplate Implanted:Qty: 1 on 01/27/2018 by Guerrero Cho MD at [facility] Screw Right: Shoulder [employer] [id number] 10/23/2023 508-32-20 4 / / [id number] Rsp Bone Screw Locking Sz 5.0mm 30mm Long Implanted:Qty: 1 on 01/27/2018 by Guerrero Cho MD at [facility] Screw Right: Shoulder [employer] 06/25/2023 506-03- 0 / / [id number] Rsp Bone Screw Locking Sz 5.0mm 22 Mm Long Implanted:Qty: 1 on 01/27/2018 by Guerrero Cho MD at [facility] Screw Right: Shoulder [employer] 08/17/2023 506-12 2 / / [id number] Bone Screw Rsp5.0x26mm Long Implanted:Qty: 1 on 01/27/2018 by Guerrero Cho MD at [facility] Screw Right: Shoulder [employer] 6 / / Rsp Bone Screw- Locking Implanted:Qty: 1 on 01/27/2018 by Guerrero Cho MD at [facility] Right: Shoulder [employer] 11/01/2023 506-03-11 [id number] Insurance MEDICARE PART A AND B BCBS SUPP RX A[employer] Medicare Part D RX [facility] Medicare Part D Advance Directives For more information, please contact: [phone] Documents on File Type Date Recorded Patient Locomotive Operator Expl anation Advance Directive POA 02/04/2018 1:58 [...] 6:44 AM 11/08/2016 7:30 AM Care Teams Army Ranger Relationship Specialty Start Date End Date Juan David Yusuf MD PCP - General Family Practice 01/14/18
--- OUTSIDE RECORDS SUMMARY | 2024-08-18 09:46 | XMS_ITS | Data Portability ---
Author Organization [place] - [facility], Main Office Address [address] [place] [address] Care Team Providers Care Health Information Manager Name Role Phone P [facility] FAX OTHER JAMILA YUSUF Primary Care Provider [phone] Assessment Encounter Date Assessment Date Assessment LastModified [...] Pt will d/c home on 07/[address] [facility], family oversight, and private duty [...] Orders metoprolol tartrate 25 mg tablet 2024 [facility] #[id number], [address], [place], [id number], 17:09:51 diltiazem 60 mg tablet 2024 [facility] #71796, [address], [place], [id number], 17:09:51 Trelegy Ellipta 200 mcg-62.5 mcg-25 mcg powder for inhalation 2024 [facility] #85575, [address] [place] [address], [id number], 17:09:49 bumetanide 1 mg tablet 2024 [facility] #75432, [address] [place] [address], [id number], 17:09:50 potassium chloride ER 20 mEq tablet,exte nded release 2024 [id number], [address] [place] [address], [id number], 17:09:49 Patient TargetsNo targets recorded. Patient Instructions Encounter Date Encounter Id Patient Instructions Last Modified By Organization Details Last Modified Time 06/25/2024 [id number] I spent 36 minutes providing care to the patient today. More than 50% of that time was spent in discussing the expected course of the disease, discussing prognosis, coordinating care and counseling of the patient/family. Not available 06/25/2024 14:53:37 06/29/2024 [id number] I spent 36 minutes providing care to the patient today. More than 50% of that time was spent in discussing the expected course of the disease, discussing prognosis, coordinating care and counseling of the patient/family. Not available 06/29/2024 15:43:29 07/01/2024 [id number] I spent 35 minutes providing care to the patient today. More than 50% of that time was spent in discussing the expected course of the disease, discussing prognosis, coordinating care and counseling of the patient/family. Not available 07/01/2024 15:14:33 07/03/2024 [id number] I spent 36 minutes providing care to the patient today. More than 50% of that time was spent in discussing the expected course of the disease, discussing prognosis, coordinating care and counseling of the patient/family. Not available 07/04/2024 11:14:28 07/06/2024 [id number] I spent 40 minutes providing care to the patient today. More than 50% of that time was spent in discussing the expected course of the disease, discussing prognosis, coordinating care and counseling of the patient/family. The patient will be discharged home with home health orders of home health RN / PT / OT to evaluate and treat. The patient is homebound because of fall risk and is unable to leave home safely because requires considerable and taxing effort to leave home. The patient requires home health nursing for [...] Organization Details Recorded Time hysterectomy completed Aristides [facility] 06/17/2024 01:52:21 total replacement of right hip joint completed Aristides [facility] 06/17/2024 01:52:36 Appendectomy completed Aristides [facility] 06/17/2024 01:52:41 total shoulder replacement completed Aristides [facility] 06/17/2024 01:53:12 Carpal tunnel surgery completed Aristides Lawrence [facility] 06/17/2024 01:53:23 Imaging Results None recorded. Procedure Notes None recorded. Medical Equipment None Reported. Allergies Allergen ID Allergen Name Allergen Category Reaction Reaction Severity Criticality Documentation Date Start Date Code Code System Note Provider Name and Address Organization Details Recorded Time 57840 Product containin g penicilli n (product) medicatio n Not available Not available Not available 06/17/2024 03983 8001 [facility]ED [facility] 01:[facility]24 95298 thiopenta l Not available Not available Not available Not available 06/17/2024 69837 Rx[facility] 01:45[facility]29 Medications Name Sig Start Date [...] Body mass index (BMI) Body weight Systolic And Diastolic Provider Name and Address Organization Details Last Updated DateTime 5 162.56 cm 84 /min 98.7 [degF] 20 /min 90 % 90 % 3 L/min 37.7 kg/m2 91352.1 7 g 128/71 mm[Hg] [place] [address] [place], [address], [place] [facility] 5 14:38:24 Date Recorded Body height Heart rate Body temperature Respiratory rate Oxygen saturation Oxygen saturation in Arterial blood by Pulse oximetry Inhaled oxygen flow rate Body mass index (BMI) Body weight Systolic And Diastolic Provider Name and Address Organization Details Last Updated DateTime 5 162.56 cm 74 /min 98.3 [degF] 18 /min 96 % 96 % 4 L/min 36.4 kg/m2 50261.8 6 g 117/77 mm[Hg] [place] [address] [place], [address], [place] [facility] 5 09:59:41 Date Recorded Body height Heart rate Body temperature Respiratory rate Oxygen saturation Oxygen saturation in Arterial blood by Pulse oximetry Inhaled oxygen flow rate Body mass index (BMI) Body weight Systolic And Diastolic Provider Name and Address Organization Details Last Updated DateTime 5 162.56 cm 90 /min 98.5 [degF] 20 /min 92 % 92 % 4 L/min 36.8 kg/m2 13522.2 g 121/71 mm[Hg] [place] [address] [place], [address], [place] [facility] 5 14:57:30 Date Recorded Body height Heart rate Body temperature Respiratory rate Oxygen saturation Oxygen saturation in Arterial blood by Pulse oximetry Inhaled oxygen flow rate Body mass index (BMI) Body weight Systolic And Diastolic Provider Name and Address Organization Details Last Updated DateTime 5 162.56 cm 99 /min 98.5 [degF] 18 /min 96 % 96 % 4 L/min 37.2 kg/m2 91916.8 3 g 111/66 mm[Hg] [place] [address] [facility] [place], [address], [place] [facility] 09:51:16 Date Recorded Body height Heart rate Body temperature Respiratory rate Oxygen saturation Oxygen saturation in Arterial blood by Pulse oximetry Inhaled oxygen flow rate Body mass index (BMI) Body weight Systolic And Diastolic Provider Name and Address Organization Details Last Updated DateTime 162.56 cm 84 /min 98.7 [degF] 20 /min 93 % 93 % 4 L/min 36.6 kg/m2 66772.5 3 g 110/76 mm[Hg] Emy Su, ALFONSO [address] [facility], [place], [address], [place] - [facility] 10:53:58 Social History Question Answer Notes LastModified by [employer] Details LastModified Time Tobacco Smoking Status Former Smoker Aristides Melinda beyer, [place] - [facility] 06/17/2024 01:56:15 What Is Your Code Status? DNR mvandorn Information not available 06/19/2024 When Did You Quit Smoking? 16+yearssinc elastcigaret te Information not available 06/17/2024 Sex: Unknown Functional Status Question Answer Note LastModified by [employer] Details LastModified Time Do you use any [...] 01:54:16 Unspecified Relation Malignant neoplasm of uterus siblin g Not available 06/17/2024 01:54:43 Unspecified Relation Malignant tumor of cervix siblin g hen35 Not available 06/17/2024 01:54:57 Unspecified Relation Cerebrovascu lar accident Not available 01:55:13 Unspecified Relation History of cardiovascul ar disease Not available 06/17 01:55:18 Unspecified Relation Glaucoma Not available 06/18/19 01:55:29 Daughter Crohn's disease Not available 2024 01:55:05 Medical History Condition Response Osteoarthritis / DJD Y Urinary Tract Infection (UTI) Y Atrial Fibrillation Y Incontinence -- Urinary Y Congestive Heart Failure (CHF) Y Chronic Kidney Disease (CKD) Y Hyperlipidemia Y Psychiatric -- Depression Y Pulmonary Hypertension Y Myocardial Infarction (RI) Y Neuropathy Y Alcohol Abuse Y Hypertension Y COVID-19 Y Gynecological HistoryNo gynecological history recorded. Obstetrics History GPAL:G 0 P 0 0 0 0 Past Encounters Encounter ID Performer Location Encounter Start Date Encounter Closed Date Diagnosis/Indication Diagnosis SNOMED-CT Code Diagnosis ICD10 Code Diagnosis Note [id number] Meagan Menjivar [address] [address] 06/17/2024 13:52:49 06/21/2024 03:24:15 Closed fracture of distal end of left radius 0427827488 4512551 S52.502D s/p ORIF 05/18 per hand/plast ics at [facility] remains NWB LUE with OCL splint in placeconti nue tylenol prn for painfu as scheduled with Dr. Shultz. Atrial fibrillation 4943 6004 I48.91 anticoagul ation has been heldcontin ue metoprolol and diltiazem for rate controlout patient cardiology fu as scheduled with Dr. 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 182670523 I13.0 continue diltiazem, metoprolol , lasixmonit or blood pressureso utpatient f/u with cardiology Coronary arteriosclerosis 36361427 I25.10 details unclear - patient denies recent chest pain and does not take nitro prn as outpatient continue current medication s regimen and f/u with cards as scheduled Chronic ob structive pulmonary disease 04902998 J44.9 on 4 liters/min catawba of supplement al O2 at baselinesh e does not use CPAP at home and has been refusing at rehabShe has her cpap machine at the facility and we will encourage compliance while hereoutpat ient fu with pulmonaryc ontinue trelegy which is newly prescribed - adding back prn duonebs Crohn's disease 14084941 K50.90 continue balsalazid e and cathartics as orderedout patient fu with GI Vitamin deficiency 15710 002 E56.9 continue B12 and vitamin D replacemen t therapy Constipation 37899476 K5 9.00 the patient is on routine senna s and miralaxmon itor clinically and adjust accordingl y Major depr essive disorder 797463864 F32.9 continue sertraline Gastroesop hageal reflux disease without esophagitis 812826237 K21.9 stable - continue pepcid Idiopathic peripheral neuropathy 02874852 G60.9 continue neurontin and prn tylenol Fracture of orbit 380806 07 S02.31XD ENT did ORIF 05/19eye drops have been d/c'doutpa tient f/u with ENT Intraparen chymal hemorrhage of brain 390316028 I61.8 anticoagul ation has been heldNS followed her during her hospitaliz ationshe completed seizure prophylaxi s medscontin ue to monitor neuro statuscont inue therapiesf /u with neurosurge ry as scheduled 06/30 with repeat head imaging Restless legs 21544825 G 25.81 continue ropinirole and pramipexol e Acute urin zuleika tract infection 661989607 N39.0 per urine done on arrival at [facility] - culture grew >100,000 klebsiella sensitivit ies were not ran for 1st generation cephalospo rins which is what the patient was treated with while at [facility] (Ancef x 7 days)she currently has no urinary symptoms or other concerns for infectionw ill monitor clinically Physical deconditioning 7732484625 9102 R68.89 related to advanced age, recent fall, comorbidit iestherapi es are in place, she will return home with family support upon d/c from [id number] Meagan Menjivar DO [place] [address] [place] [address] 06/22/2024 13:16:28 06/28/2024 20:30:53 Closed fracture of distal end of left radius 9163446879 2490992 S52.502D s/p ORIF 05/18 per hand/plast ics at [facility].She remains NWB LUE with OCL splint in place.Cont inue Tylenol PRN for pain.F/U as scheduled with Dr. Shultz on 06/23. Fracture of orbit 198059 07 S02.31XD ENT did ORIF on 05/19.Eye drops have been d/c'd.Outp atient f/u with ENT. Intraparen chymal hemorrhage of brain 274145024 I61.8 Anticoagul ation has been held.NS followed [...] Radha Jimenez on 07/22. Congestive heart failure 25324236 I50.9 Continue Lasix and Metoprolol .Monitor edema -- may need additional diuretics. Continue to trend blood pressures, monitor lytes and renal function, and adjust meds as clinically indicated. Chronic ki dney disease 918363640 N18.9 Unclear baseline. Cr appears to be WNL for most of her recent hospitaliz ation.Avoi d nephrotoxi ns and trend labs. Hyperlipidemia 78516642 E78.5 Presumed stable. Continue statin. 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 Continue Diltiazem, Metoprolol , and Lasix.Cont inue to trend blood pressures, monitor lytes and renal function, and adjust meds as clinically indicated. outpatient f/u with cardiology as above. Coronary arteriosclerosis 50507484 I25.10 Details unclear. Patient denies recent chest pain and does not take nitro prn as outpatient .Continue current medication s regimen and f/u with cards as scheduled. Chronic ob structive pulmonary disease 36957205 J44.9 on 4 liters/min catawba of supplement al O2 at baseline.S he does not use CPAP at home and has been refusing at rehab. She has her cpap machine at the facility and we will encourage compliance while here.Outpa tient f/u with pulmonary. Continue Trelegy, which is newly prescribed .Schedule Albuterol Nebs BID -- this is pt's OP orders (she admits to usually only doing once/day). Crohn's disease 56410193 K50.90 Continue Balsalazid e and cathartics as ordered.Ou tpatient f/u with GI. Vitamin deficiency 93240 002 E56.9 Continue B12 and vitamin D replacemen t therapy. Constipation 53166974 K5 9.00 Patient is on routine Senna S and Miralax.Mo nitor clinically and adjust accordingl y. Major depr essive disorder 001692023 F32.9 Stable. Continue Sertraline . Gastroesop hageal reflux disease without esophagitis 344817328 K21.9 Stable. Continue Pepcid. Idiopathic peripheral neuropathy 51647646 G60.9 Stable. Continue Neurontin and PRN Tylenol. Restless legs 19612088 G 25.81 Stable. Continue Ropinirole and Pramipexol e. Acute urin zuleika tract infection 933173821 N39.0 Per urine done on arrival at [facility], culture grew >100,000 klebsiella .Sensitivi ties were not ran for 1st generation cephalospo rins, which is what the patient was treated with while at [facility] (Ancef x 7 days).She currently has no urinary symptoms or other concerns for infection. Monitor clinically . Physical deconditioning 7103163359 9102 R68.89 Related to advanced age, recent fall, comorbidit ies.Therap ies are in place, she will return home with family support upon d/c from . [id number] Meagan Menjivar DO [address] [address] 06/25/2024 10:24:52 07/06/2024 11:30:12 Closed fracture of distal end of left radius 7799256787 9543035 S52.502D s/p ORIF 05/18 per hand/plast ics Dr. Margy Walker at [facility].She was initially NWB to LUE with OCL splint in place. Was seen by Dr. Walker on 06/23, OCL splint removed and wrist brace placed in stead, which she is to wear at all times (remove for exercise & shower) x 2 weeks.Cont inue Tylenol PRN for pain.Sutur es removed at 06/23 appt. Incisions healed.F/U with Dr. Walker PRN. Fracture of orbit 301026 07 S02.31XD S/P ORIF on 05/19 per ENT.Eye drops have been d/c'd.Outp atient f/u with ENT. Intraparen chymal hemorrhage of brain 127469984 I61.8 Anticoagul ation has been held.NS followed [...] Radha Jimenez on 07/22. Congestive heart failure 17170058 I50.9 Continue Lasix and Metoprolol .Pt reports weight prior to hospitaliz ation was 198 lbs.Add Metolazone x 5 days.KCl increase to 40 meq BID x 5 days, then back to 20 meq daily.Labs (CBC, CMP, BNP on 06/29.Monito r edema, weights, and labs. Chronic ki dney disease 119710107 N18.9 Unclear baseline. Cr appears to be WNL for most of her recent hospitaliz ation.Avoi d nephrotoxi ns and trend labs. Hyperlipidemia 82341491 E78.5 Presumed stable. Continue statin. 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 Continue Diltiazem, Metoprolol , Lasix, and Potassium. Bursting with Metolazone as above.Cont inue to trend blood pressures, monitor lytes and renal function, and adjust meds as clinically indicated. Outpatient f/u with cardiology as above. Coronary arteriosclerosis 36679724 I25.10 Details unclear. Patient denies recent chest pain and does not take nitro prn as outpatient .Continue current medication s regimen and f/u with cards as scheduled. Chronic ob structive pulmonary disease 37035240 J44.9 on 4 liters/min catawba of supplement al O2 at baseline.S he [...] well.Outpa tient f/u with pulmonary. Crohn's disease 24683869 K50.90 Continue Balsalazid e and cathartics as ordered.Ou tpatient f/u with GI. Vitamin deficiency 83054 002 E56.9 Continue B12 and vitamin D replacemen t therapy. Constipation 86171638 K5 9.00 Patient is on routine Senna S and Miralax.Mo nitor clinically and adjust accordingl y. Major depr essive disorder 509805746 F32.9 Stable. Continue Sertraline . Gastroesop hageal reflux disease without esophagitis 135383122 K21.9 Stable. Continue Pepcid. Idiopathic peripheral neuropathy 78745883 G60.9 Stable. Continue Neurontin and PRN Tylenol. Restless legs 32278439 G 25.81 Stable. Continue Ropinirole and Pramipexol e. Acute urin zuleika tract infection 745086852 N39.0 Per urine done on arrival at [facility], culture grew >100,000 klebsiella .Sensitivi ties were not ran for 1st generation cephalospo rins, which is what the patient was treated with while at [facility] (Ancef x 7 days).She currently has no urinary symptoms or other concerns for infection. Monitor clinically . Physical deconditioning 0293803649 9102 R68.89 Related to advanced age, recent fall, comorbidit ies.Therap ies are in place, she will return home with family support upon d/c from . [id number] Meagan Tiara, DO [address] [address] 06/29/2024 09:59:14 07/06/2024 11:31:59 Congestive heart failure 26287921 I50.9 Continue Lasix, KCl, and Metoprolol .Pt reports weight prior to hospitaliz ation was 198 lbs. Weight is down 8 lbs in the last 5 days but still [+] 13 lbs.Contin ues on Metolazone through 07/01.Labs (CBC, CMP, BNP) pending from this AM.Monitor edema, weights, and labs. 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 Continue Diltiazem, Metoprolol , Lasix, and Potassium. Bursting with Metolazone as above.Cont inue to trend blood pressures, monitor lytes and renal function, and adjust meds as clinically indicated. Outpatient f/u with cardiology as above. Closed fra cture of distal end of left radius 7877254041 2659548 S52.502D s/p ORIF 05/18 per hand/plast ics Dr. Margy Walker at [facility].She was initially NWB to LUE with OCL splint in place. Was seen by Dr. Walker on 06/23, OCL splint removed and wrist brace placed in stead, which she is to wear at all times (remove for exercise & shower) x 2 weeks.Cont inue Tylenol PRN for pain.Sutur es removed at 06/23 appt. Incisions healed.F/U with Dr. Walker PRN. Fracture of orbit 872318 07 S02.31XD S/P ORIF on 05/19 per ENT.Eye drops have been d/c'd.Outp atient f/u with ENT. Intraparen chymal hemorrhage of brain 201025051 I61.8 Anticoagul ation has been held.NS followed [...] Jimenez on 07/22. Chronic ki dney disease 226274331 N18.9 Unclear baseline. Cr appears to be WNL for most of her recent hospitaliz ation.Avoi d nephrotoxi ns and trend labs. Hyperlipidemia 16612624 E78.5 Presumed stable. Continue statin. Coronary arteriosclerosis 50485085 I25.10 Details unclear. Patient denies recent chest pain and does not take nitro prn as outpatient .Continue current medication s regimen and f/u with cards as scheduled. Chronic ob structive pulmonary disease 11091882 J44.9 on 4 liters/min catawba of supplement al O2 at baseline.S he [...] well.Outpa tient f/u with pulmonary. Crohn's disease 99635905 K50.90 Continue Balsalazid e and cathartics as ordered.Ou tpatient f/u with GI. Vitamin deficiency 15006 002 E56.9 Continue B12 and vitamin D replacemen t therapy. Constipation 29585778 K5 9.00 Patient is on routine Senna S and Miralax.Mo nitor clinically and adjust accordingl y. Major depr essive disorder 999064077 F32.9 Stable. Continue Sertraline . Gastroesop hageal reflux disease without esophagitis 293260073 K21.9 Stable. Continue Pepcid. Idiopathic peripheral neuropathy 51833390 G60.9 Stable. Continue Neurontin and PRN Tylenol. Restless legs 99588270 G 25.81 Stable. Continue Ropinirole and Pramipexol e. Acute urin zuleika tract infection 238344733 N39.0 Per urine done on arrival at [facility], culture grew >100,000 klebsiella .Sensitivi ties were not ran for 1st generation cephalospo rins, which is what the patient was treated with while at [facility] (Ancef x 7 days).She currently has no urinary symptoms or other concerns for infection. Monitor clinically . Physical deconditioning 5452991828 9102 R68.89 Related to advanced age, recent fall, comorbidit ies.Therap ies are in place, she will return home with family support upon d/c from [place]. [id number] Meagan Tiara, [place] [address] [facility] [place] [address] 07/01/2024 12:56:01 07/06/2024 11:33:06 Congestive heart failure 72099581 I50.9 Continue Lasix, KCl, and Metoprolol .Pt reports weight prior to hospitaliz ation was 198 lbs. Weight is down 5 lbs with Metolazone burst. Completes today.Franca tor weights/ed sandra/labs. 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 Continue Diltiazem, Metoprolol , Lasix, and Potassium. Bursting with Metolazone as above.Cont inue to trend blood pressures, monitor lytes and renal function, and adjust meds as clinically indicated. Outpatient f/u with cardiology as above. Closed fra cture of distal end of left radius 7663298365 7792914 S52.502D s/p ORIF 05/18 per hand/plast ics Dr. Margy Walker at [facility].She was initially NWB to LUE with OCL splint in place. Was seen by Dr. Walker on 06/23, OCL splint removed and wrist brace placed in stead, which she is to wear at all times (remove for exercise & shower) x 2 weeks.Cont inue Tylenol PRN for pain.Sutur es removed at 06/23 appt. Incisions healed.F/U with Dr. Walker PRN. Fracture of orbit 825709 07 S02.31XD S/P ORIF on 05/19 per ENT.Eye drops have been d/c'd.Outp atient f/u with ENT. Intraparen chymal hemorrhage of brain 913932823 I61.8 Anticoagul ation has been held.NS followed [...] Jimenez on 07/22. Chronic ki dney disease 541205879 N18.9 Unclear baseline. Cr appears to be WNL for most of her recent hospitaliz ation.Avoi d nephrotoxi ns and trend labs. Hyperlipidemia 25561460 E78.5 Presumed stable. Continue statin. Coronary arteriosclerosis 11175787 I25.10 Details unclear. Patient denies recent chest pain and does not take nitro prn as outpatient .Continue current medication s regimen and f/u with cards as scheduled. Chronic ob structive pulmonary disease 61277215 J44.9 on 4 liters/min catawba of supplement al O2 at baseline.S he [...] well.Outpa tient f/u with pulmonary. Crohn's disease 63315691 K50.90 Continue Balsalazid e and cathartics as ordered.Ou tpatient f/u with GI. Vitamin deficiency 46936 002 E56.9 Continue B12 and vitamin D replacemen t therapy. Constipation 52510767 K5 9.00 Patient is on routine Senna S and Miralax.Mo nitor clinically and adjust accordingl y. Major depr essive disorder 235054291 F32.9 Stable. Continue Sertraline . Gastroesop hageal reflux disease without esophagitis 512712655 K21.9 Stable. Continue Pepcid. Idiopathic peripheral neuropathy 34111479 G60.9 Stable. Continue Neurontin and PRN Tylenol. Restless legs 31007782 G 25.81 Stable. Continue Ropinirole and Pramipexol e. Acute urin zuleika tract infection 958149883 N39.0 Per urine done on arrival at [facility], culture grew >100,000 klebsiella .Sensitivi ties were not ran for 1st generation cephalospo rins, which is what the patient was treated with while at [facility] (Ancef x 7 days).She currently has no urinary symptoms or other concerns for infection. Monitor clinically . Physical deconditioning [id number] 9102 R68.89 Related to advanced age, recent fall, comorbidit ies.Therap ies are in place, she will return home with family support upon d/c from [place]. Chronic hy poxemic respiratory failure [id number] J96.11 SEE ABOVE... [id number] Meagan Menjivar, [address] [address] 07/03/2024 09:50:27 07/06/2024 11:34:03 Congestive heart failure [id number] I50.9 Improved with Metolazone burst (down 8 lbs) but has begun gaining weight and worsening edema since completed. Pt reports weight prior to hospitaliz ation was 198 lbs.Contin ue KCl and Metoprolol .Increase Lasix to Bumex 1.5 mg daily.Labs on Saturday.Sat weights/ed sandra/labs. Chronic ob structive pulmonary disease 20392165 J44.9 on 4 liters/min catawba of supplement al O2 at baseline.S he [...] with pulmonary. Chronic hy poxemic respiratory failure 226034778 J96.11 SEE ABOVE... 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 Continue Diltiazem, Metoprolol , and Potassium. Changing Lasix to Bumex as above.Rece ived Metolazone burst from 06/26 to 07/01.Contin ue to trend blood pressures, monitor lytes and renal function, and adjust meds as clinically indicated. Outpatient f/u with cardiology as above. Closed fra cture of distal end of left radius [id number] S52.502D s/p ORIF 05/18 per hand/plast ics Dr. Margy Walker at [facility].She was initially NWB to LUE with OCL splint in place. Was seen by Dr. Walker on 06/23, OCL splint removed and wrist brace placed in stead, which she is to wear at all times (remove for exercise & shower) x 2 weeks (07/07).Con tinue Tylenol PRN for pain.Sutur es removed at 06/23 appt. Incisions healed.F/U with Dr. Walker PRN. Fracture of orbit 092299 07 S02.31XD S/P ORIF on 05/19 per ENT.Eye drops have been d/c'd.Outp atient f/u with ENT. Intraparen chymal hemorrhage of brain 438455518 I61.8 Anticoagul ation has been held.NS followed [...] Jimenez on 07/22. Chronic ki dney disease 603088569 N18.9 Unclear baseline. Cr appears to be WNL for most of her recent hospitaliz ation.Avoi d nephrotoxi ns and trend labs. Hyperlipidemia 21727303 E78.5 Presumed stable. Continue statin. Coronary arteriosclerosis 76117894 I25.10 Details unclear. Patient denies recent chest pain and does not take nitro prn as outpatient .Continue current medication s regimen and f/u with cards as scheduled. Crohn's disease 93646844 K50.90 Continue Balsalazid e and cathartics as ordered.Ou tpatient f/u with GI. Vitamin deficiency 62879 002 E56.9 Continue B12 and vitamin D replacemen t therapy. Constipation 94360322 K5 9.00 Patient is on routine Senna S and Miralax.Mo nitor clinically and adjust accordingl y. Major depr essive disorder 955523797 F32.9 Stable. Continue Sertraline . Gastroesop hageal reflux disease without esophagitis 668442075 K21.9 Stable. Continue Pepcid. Idiopathic peripheral neuropathy 50299393 G60.9 Stable. Continue Neurontin and PRN Tylenol. Restless legs 79750067 G 25.81 Stable. Continue Ropinirole and Pramipexol e. Acute urin zuleika tract infection 058516714 N39.0 Per urine done on arrival at [facility], culture grew >100,000 klebsiella .Sensitivi ties were not ran for 1st generation cephalospo rins, which is what the patient was treated with while at [facility] (Ancef x 7 days).She currently has no urinary symptoms or other concerns for infection. Monitor clinically . Physical deconditioning [id number] 9102 R68.89 Related to advanced age, recent fall, comorbidit ies.Therap ies are in place, she will return home with family support upon d/c from . [id number] Meagan Menjivar, DO [address] [address] 07/06/2024 10:53:33 07/08/2024 09:19:36 Congestive heart failure 69817066 I50.9 Pt reports weight prior to hospitaliz ation was 198 lbs. Improved with Metolazone burst (down 8 lbs) but immediatel y began gaining the weight and edema back once completed. Have escalated Lasix to Bumex with improvemen t. Continue KCl and Metoprolol , as well.Monit or weights/ed sandra/labs as OP.Cardiol ogy f/u with Dr. Radha Jimenez on 07/22. Chronic ob structive pulmonary disease 15177681 J44.9 on 4 liters/min catawba of supplement al O2 at baseline.S he [...] with pulmonary. Chronic hy poxemic respiratory failure 924497618 J96.11 SEE ABOVE... 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 Continue Diltiazem, Metoprolol , Bumex, and Potassium. Received Metolazone burst from 06/26 to 07/01.Contin ue to trend blood pressures, monitor lytes and renal function, and adjust meds as clinically indicated. Cardiology f/u with Dr. Radha Jimenez on 07/22. Closed fra cture of distal end of left radius [id number] 5947016 S52.502D s/p ORIF 05/18 per hand/plast ics Dr. Margy Walker at [facility].She was initially NWB to LUE with OCL splint in place. Was seen by Dr. Walker on 06/23, OCL splint removed and wrist brace placed in stead, which she is to wear at all times (remove for exercise & shower) x 2 weeks (07/07).Con tinue Tylenol PRN for pain.Sutur es removed at 06/23 appt. Incisions healed.F/U with Dr. Walker PRN. Fracture of orbit 111526 07 S02.31XD S/P ORIF on 05/19 per ENT.Eye drops have been d/c'd.Outp atient f/u with ENT. Intraparen chymal hemorrhage of brain 631138792 I61.8 Anticoagul ation has been stopped.NS followed [...] Jimenez on 07/22. Chronic ki dney disease 967014259 N18.9 Unclear baseline. Cr appears to be WNL for most of her recent hospitaliz ation.Avoi d nephrotoxi ns and trend labs. Hyperlipidemia 95194454 E78.5 Presumed stable. Continue statin. Coronary arteriosclerosis 64685858 I25.10 Details unclear. Patient denies recent chest pain and does not take nitro prn as outpatient .Continue current medication s regimen and f/u with cards on 07/22. Crohn's disease 13550189 K50.90 Continue Balsalazid e and cathartics as ordered.Ou tpatient f/u with GI. Vitamin deficiency 81812 002 E56.9 Continue B12 and vitamin D replacemen t therapy. Constipation 65718807 K5 9.00 Patient is on routine Senna S and Miralax.Mo nitor clinically and adjust accordingl y. Major depr essive disorder 113451835 F32.9 Stable. Continue Sertraline . Gastroesop hageal reflux disease without esophagitis 527503158 K21.9 Stable. Continue Pepcid. Idiopathic peripheral neuropathy 81261458 G60.9 Stable. Continue Neurontin and PRN Tylenol. Restless legs 02313378 G 25.81 Stable. Continue Ropinirole and Pramipexol e. Acute urin zuleika tract infection 013574957 N39.0 Per urine done on arrival at [facility], culture grew >100,000 klebsiella .Sensitivi ties were not ran for 1st generation cephalospo rins, which is what the patient was treated with while at [facility] (Ancef x 7 days).She currently has [...] ID Garcia Member ID Guarantor Name 06/25/2024 1 [place] Ping Waller [id number] 3 Ping Montes Christin 06/25/2024 2 [place] [id number] Ping Waller [id number] Ping Montes Christin 06/29/2024 1 [place] Ping Waller [id number] 3 Ping Montes Christin 06/29/2024 2 [place] [id number] Ping Waller [id number] Ping Montes Christin 07/01/2024 1 [place] Ping Taer [id number] 3 Ping Taer 07/01/2024 2 [place] [id number] Ping Taer [id number] Ping Taer 07/03/2024 1 [place] Ping Taer [id number] 3 Ping Taer 07/03/2024 2 [place] [id number] Ping Waller [id number] Ping Montes Christin 07/06/2024 1 [place] Ping Taer [id number] 3 Ping Montes Christin 07/06/2024 2 [place] [id number] Ping Taer [id number] Ping Waller Notes Date Note Type Note Provider Name [...] She lives alone in a home in [place] - her daughter and son live on [...] placement, safety and sequencing. Emy Su, [place] [address] [place], [address], [facility] [place] [facility] 06/25/2024 14:53:49 06/29/2024 text/html F/U [...] She lives alone in a home in [place] - her daughter and son live on [...] for posture and wider KARINE. Emy Su, ALFONSO [address] [facility], [place], [address], [facility] 06/29/2024 15:44:08 07/01/2024 text/html F/U [...] She lives alone in a home in [place] - her daughter and son live on [...] AD pt was very impulsive. Emy Su, GENERAL LABOR FORKLIFT OPERATOR [address] [facility], [place], [address], [facility] [place] [facility] 07/01/2024 15:15:41 07/03/2024 text/html F/U [...] She lives alone in a home in [place] - her daughter and son live on [...] SBA cues for energy conservation. Emy Su, GENERAL LABOR FORKLIFT OPERATOR [address] [place], [address], [place] [facility] 07/04/2024 11:15:18 07/06/2024 text/html 78 yo F PMH HFrE F pulm HTN, COPD, 4L O2 at baseline, Afib on xarelto admitted to [facility] post acute rehab subsequent to an inpatient stay at [facility] hospital 05/13-05/27/24 and an acute rehab stay at [facility] 05/27-06/16/24 following a fall with head strike. She fell from a stool at her kitchen countertop on the am of 05/12. She was initially taken to [facility] and then transferred to [facility] due to her injuries. Injuries#Orbital Blowout Fx#L IPH#L distal radius fractureSurgeries05/18 ORIF L radius w PRS (Denise)05/19 R ORIF Orbital FloorHospital Course:Closed fracture of distal end of left radius- Plastics consult- L hand/wrist xr (05/14): Comminuted intra-articular fracture of the left distal radius with mild articular surface depression, Apparent widening of the left scapholunate interval may be seen in setting of ligamentous injury.- NWB LUE- LUE with sugartong splint05/18 ORIF L radius w PRS (Denise)- Follow up outpatient with PRS (Denise)Intraparenchyma l [...] 6- Follow up with Dr Lea's team. [phone] sAncef 7day (complete)* Fall, initial encounterSyncopal workup [...] by ENT 05/21TFs commenced 05/21, advancing as tolerated3: On regular PO diet today. Informed by [...] NPO, resumed tube feeds, ordered for repeat SERVICE DELIVERY CONSULTANT evaluation. Recommend up in chair for all meals and 1:1 assistance during meals pending SERVICE DELIVERY CONSULTANT evaluation. Discussed with patient and nurse to [...] as above- Home O2 4L- [facility]s with [facility] Cardiology- Home Diltiazem, Entresto, Lasix (1/2 dose) and metoprolol continued She was transferred to [facility] 05/27. Her stay there was complicated by Covid - she required transfer to the ER at [facility] 06/05 with CTA of the chest negative for PE or pneumonia. It is unclear if she was treated with antivirals as no d/c summary from her stay at [facility] has been provided, only a few progress notes and NO labs or imaging results sent from her stay at [facility]. The patient did not have an increase in her O2 needs due to covid. She reports mild symptoms and denies other complications during her acute rehab stay. New Medications: trelegyDose adjusted: metoprolol, diltiazem, kclDiscontinued medications: oxycodone, nebs, entresto Code status is Adalid Velasquezistin, is MPOA, son, Gato, is FPOAPCP Meagan Yusuf---06/17[birth year]e patient is sitting up in her W/C, she has a close friend visiting her today, Ping is doing well, a good historian. She lives alone in a home in [place] - her daughter and son live on [...] ft SBA cues for energy conservation. ---Ping ia seated in her w/c in her room, in good spirits, looking forward to discharging home tomorrow. She will have [facility] as well as private-duty nursing [...] x1 SBA cues for floor clearance and gabi Su, ALFONSO [address] [facility], [place], [address], [facility] [place] [facility] 07/06/2024 17:10:14 OBGyn Episode No OBEpisode recorded.
--- OUTSIDE RECORDS SUMMARY | 2024-08-18 09:46 | XMS_ITS ---
Author Name Auto Generated, Auto Generated Organization [employer] [facility] ices Address [address] [place] [address] Phone [phone] Care Team Providers Care [employer] Name Role Phone Camila Spence Unavailable Emy Su Unavailable Meagan Turner Unavailable Functional Status Mental Status Allergies and Intolerances Encounters Immunizations Medications Problems Vital Signs Reason for Referral Past Medical History
[2024-08-18 10:46] LABS: Blood Urea Nitrogen 57 mg/dL (7-17); Calcium 9.1 mg/dL (8.4-10.2); Carbon Dioxide > 40 mmol/L (22-30); Chloride 85 mmol/L (98-107); Estimated Glomerular Filt Rate 49; Glucose 109 mg/dL (65-110); Potassium 3.6 mmol/L (3.4-5.0); Sodium 137 mmol/L (137-145)
== END 2024-08-18 09:41 | disposition home or self-care (01) ==
PROVIDERS: PCP Family Medicine; Visit Provider Family Medicine
DX: E87.6 Hypokalemia (principal)
CPT/HCPCS: 36415; 80048

== ENCOUNTER 2024-10-27 09:45 | Outpatient (CLI) | payer MEDICARE, SELFPAY ==
--- OUTSIDE RECORDS SUMMARY | 2024-10-27 10:11 | XMS_ITS ---
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 Name Role Phone Camila Spence Unavailable [phone] Georges Emy Unavailable Meagan Turner Unavailable Functional Status No Results Mental Status No Results Allergies and Intolerances Name Onset Date Reaction Severity thiopental (Allergy) SatFeb 06 12:18:00 EST 202 3 penicillin (Allergy) SatFeb 06 12:18:00 EST 202 3 Encounters Program Name Primary Diagnosis Admission Date/Time Dis charge Date/Time [facility] SatJun 16 10:00:00 EDT [...] Daily Indication: Wheezing/COPD Sat Jul 04 07:00:00 EDT 2024Jul 07 01:00:00 EDT 2024 bumetanide 1 mg tablet 1.5 tablet TABLET Oral 1 Time Daily Indication: Edema Sat Jul 04 07:00:00 EDT 2024Jul 07 01:00:00 ED2024 polyethylene glycoL 3350 17 gram/dose oral powder 17 g POWDER (GRAM) Oral PRN 1 Time Daily Indication: constipation SatJul 02 19:06:00 EDT 2024Jul 07 01:00:00 ED2024 Stimulant Laxative Plus 8.6 mg-50 mg tablet 2 tabs TABLET Oral PRN 2 Times Daily Indication: constipation SatJul 02 19:06:00 EDT 2024Jul 07 01:00:00 ED2024 Trelegy Ellipta 100 mcg-62.5 mcg-25 mcg [...] spacer) after each use. SatJun 30 11:52:00 EDT 2024Jul 03 12:27:00 ED2024 acetaminophen 500 mg tablet 1000 mg TABL ET Oral PRN Every 6 Hours Indication: painMax dose 3grams/24 hours SatJun 30 11:54:00 ED2024Jul 07 01:00:00 ED2024 potassium chloride ER 20 mEq tablet,extended release 20 mEq TABLET, EXTENDED RELEASE Oral 2 Times Daily Indication: hypokalemia SatJul 01 20:27:00 ED2024Jul 07 01:00:00 ED2024 potassium chloride ER 20 mEq tablet,extended release 40mEq TABLET, EXTENDED RELEASE Oral 1 Time Daily for 5 Days Indication: hypokalemia SatJun 25 13:00:00 EDT 2024Jun 30 12:59:00 ED2024 metOLazone 2.5 mg tablet 1 tab TABLET Or al 1 Time Daily for 5 Days Indication: edema SatJun 25 13:00:00 EDT 2024Jun 30 12:59:00 ED2024 Trelegy Ellipta 100 mcg-62.5 [...] 3 tablets each time SatJun 17 16:02:00 EDT 2024Jul 07 01:00:00 EDT 2024 ipratropium 0.5 mg-albuteroL 3 mg (2.5 mg base)/3 mL nebulization soln 3 mL AMPUL FOR NEBULIZATION (ML) Inhalation PRN Every 6 Hours Indication: wheezing/sob PRN for Wheezing/SOB SatJun 17 17:00:00 EDT 2024Jul 07 01:00:00 EDT 2024 metoprolol tartrate 25 mg tablet 12.5 mg TABLET Oral 2 Times Daily Indication: HTN SatJun 16 13:00:00 EDT 2024Jun 17 10:42:00 EDT 2024 dilTIAZem 60 mg [...] Time Daily Indication: Vaccine SatFeb 19 16:00:00 2022Feb 19 17:15:00 2022 Fluad Quad (65yr up)(PF) 60 mcg (15 mcg x 4)/0.5mL IM syringe 0.5 ml SYRINGE (ML) Intramuscular 1 Time Daily Indication: Vaccine SatFeb 19 17:14:00 2022Feb 19 17:16:00 2022 Fluad Quad (65yr up)(PF) 60 mcg (15 mcg x 4)/0.5mL IM syringe 0.5 ml SYRINGE (ML) Intramuscular 1 Time Daily for 1 Day Indication: Vaccine SatFeb 19 07:00:00 2022Feb 20 06:59:00 2022 Jardiance 10 mg tablet 1 TABLET TABLET O ral 1 Time Daily Indication: DM SatFeb 12 10:20:00 2022Feb 24 01:00:00 2022 QUEtiapine 25 mg tablet 1 TABLET TABLET Oral 1 Time Daily Indication: Depression Indication: Depression SatFeb 09 21:00:00 2022Feb 13 13:59:00 2022 TubersoL 5 tub. unit/0.1 mL intradermal injection solution 0.1 ml VIAL (ML) Intradermal 1 Time Weekly for 2 Weeks Indication: TB test 1st injection on admission, then one week after. Read between 48 and 72 hours SatFeb 09 09:00:00 2022Feb 23 08:59:00 2022 TubersoL 5 tub. unit/0.1 mL intradermal injection solution Read Results VIAL (ML) Other 1 Time Weekly for 2 Weeks Indication: TB test Read results between 48-72 hours after 1st and 2nd (1 week apart). If positive do chest x-ray. SatFeb 09 09:00:00 2022Feb 23 08:59:00 EST 2022 albuterol sulfate 2.5 mg/3 mL (0.083 %) solution for nebulization 3ML VIAL, NEBULIZER (ML) Inhalation 2 Times Daily Indication: SHORTNESS OF BREATH SatFeb 07 17:07:00 EST 2022Feb 24 01:00:00 EST 2022 cyanocobalamin (vit B-12) 1,000 mcg tablet 1 TABLET TABLET Oral 1 Time Daily Indication: Supplement SatFeb 06 14:00:2022Feb 24 01:00:00 EST 2022 doxycycline hyclate 100 mg tablet 1 TABLET TABLET Oral Every 12 Hours for 4 Days Indication: Pneumonia SatFeb 06 14:00:00 2022Feb 10 13:59:00 2022 metoprolol tartrate 50 mg tablet 1 TABLET TABLET Oral Every 12 Hours Indication: Regulate heartrate SatFeb 06 14:00:00 2022Feb 06 18:32:00 EST 2022 metroNIDAZOLE 250 mg tablet 2 TABLETS TA BLET Oral Every 8 Hours for 4 Days Indication: Pneumonia (2 [id number]) SatFeb 06 14:00:00 2022Feb 10 13:59:00 EST 2022 thiamine HCl (vitamin B1) 100 mg tablet 1 TABLET TABLET Oral 1 Time Daily Indication: Supplement SatFeb 06 14:00:00 2022Feb 24 01:00:00 EST 2022 folic acid 1 mg tablet 1 TABLET TABLET O ral 1 Time Daily Indication: Supplement SatFeb 06 14:00:00 2022Feb 24 01:00:00 2022 QUEtiapine 25 mg tablet 1 TABLET TABLET Oral 1 Time Daily Indication: Depression SatFeb 06 14:00:00 EST 2022Feb 09 11:38:00 EST 2022 albuterol sulfate 2.5 mg/3 mL (0.083 %) solution for nebulization 3ML VIAL, NEBULIZER (ML) Inhalation PRN 2 Times Daily Indication: SHORTNESS OF BREATH SatFeb 06 14:00:00 2022Feb 07 17:07:00 EST 2022 Entresto 24 mg-26 mg tablet 1 [...] Neuropathy SatFeb 06 14:00:00 2022Feb 24 01:00:00 2022 sertraline 100 mg tablet 1 TABLET [...] 12 Hours Indication: Afib SatFeb 06 19:00:00 2022Feb 24 01:00:00 EST 2022 Problems Active Concerns * Other acidosis* Code: * Start Date: SatFeb 06 00:00:00 2022 * End Date: * Text: * Other specified respiratory disorders* Code: * Start Date: SatFeb 06 00:00:00 EST 2022 * End Date: SatJun 17 00:00:00 EDT 2024 * Text: * Alcohol dependence, uncomplicated* Code: * Start Date: SatFeb 06 00:00:00 EST 2022 * End Date: * Text: * Obstructive sleep apnea (adult) (pediatric)* Code: * Start Date: SatFeb 06 00:00:00 EST 2022 * End Date: * Text: * Emphysema, unspecified* Code: * Start Date: SatFeb 06 00:00:00 EST 2022 * End Date: SatJun 19 00:00:00 EDT 2024 * Text: * Chronic respiratory failure with hypoxia* Code: * Start Date: SatFeb 06 00:00:00 EST 2022 * End Date: * Text: * Dependence on supplemental oxygen* Code: * Start Date: SatFeb 06 00:00:00 EST 2022 * End Date: * Text: * Restless legs syndrome* Code: * Start Date: SatFeb 06 00:00:00 EST 2022 * End Date: * Text: * Hypertensive heart disease with heart failure* Code: * Start Date: SatFeb 06 00:00:00 EST 2022 * End Date: SatJun 19 00:00:00 EDT 2024 * Text: * Pulmonary hypertension, unspecified* Code: * Start Date: SatFeb 06 00:00:00 EST 2022 * End Date: * Text: * Polyneuropathy, unspecified* Code: * Start Date: SatFeb 06 00:00:00 EST 2022 * End Date: * Text: * Pneumonia, unspecified organism* Code: * Start Date: SatFeb 06 00:00:00 EST 2022 * End Date: SatJun 17 00:00:00 EDT 2024 * Text: * Chronic obstructive pulmonary disease with (acute) lower respiratory infection * Code: * Start Date: SatFeb 06 00:00:00 EST 2022 * End Date: SatJun 16 00:00:00 EDT 2024 * Text: * Acute and chronic respiratory failure with hypoxia* Code: * Start Date: SatFeb 06 00:00:00 EST 2022 * End Date: SatJun 17 00:00:00 EDT 2024 * Text: * Mixed hyperlipidemia* Code: * Start Date: SatFeb 06 00:00:00 EST 2022 * End Date: * Text: * Personal history of nicotine dependence* Code: * Start Date: SatFeb 06 00:00:00 EST 2022 * End Date: * Text: * Dilated cardiomyopathy* Code: * Start Date: SatFeb 06 00:00:00 EST 2022 * End Date: * Text: * Acute kidney failure, unspecified* Code: * Start Date: SatFeb 06 00:00:00 EST 2022 * End Date: SatJun 17 00:00:00 EDT 2024 * Text: * Heart failure, unspecified* Code: * Start Date: SatFeb 06 00:00:00 EST 2022 * End Date: SatJun 17 00:00:00 EDT 2024 * Text: * Depression, unspecified* Code: * Start Date: SatFeb 06 00:00:00 EST 2022 * End Date: * Text: * 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* Code: * Start Date: SatFeb 06 00:00:00 EST 2022 * End Date: * Text: * Hypotension, unspecified* Code: * Start Date: SatAugust 19 00:00:00 EDT 2023 * End Date: * Text: * Fall on same level from slipping, tripping and stumbling with subsequent striking against furniture, subsequent encounter* Code: * Start Date: SatAugust 19 00:00:00 EDT 2023 * End Date: SatJun 17 00:00:00 EDT 2024 * Text: * Laceration without foreign body of other part of head, subsequent encounter* Code: * Start Date: SatAugust 19 00:00:00 EDT 2023 * End Date: SatJun 17 00:00:00 EDT 2024 * Text: * Contusion of left eyelid and periocular area, subsequent encounter* Code: * Start Date: SatAugust 19 00:00:00 EDT 2023 * End Date: SatJun 17 00:00:00 EDT 2024 * Text: * Contusion of unspecified part of neck, subsequent encounter* Code: * Start Date: SatAugust 19 00:00:00 EDT 2023 * End Date: SatJun 17 00:00:00 EDT 2024 * Text: * Contusion of thorax, unspecified, subsequent encounter* Code: * Start Date: SatAugust 19 00:00:00 EDT 2023 * End Date: SatJun 17 00:00:00 EDT 2024 * Text: * Hemorrhage of bilateral orbit* Code: * Start Date: SatAugust 19 00:00:00 EDT 2023 * End Date: SatJun 17 00:00:00 EDT 2024 * Text: * Thrombocytopenia, unspecified* Code: * Start Date: SatAugust 19 00:00:00 EDT 2023 * End Date: * Text: * Anemia, unspecified* Code: * Start Date: SatAugust 19 00:00:00 EDT 2023 * End Date: * Text: * Chronic atrial fibrillation, unspecified* Code: * Start Date: SatAugust 19 00:00:00 EDT 2023 * End Date: * Text: * Urinary tract infection, site not specified* Code: * Start Date: SatAugust 19 00:00:00 EDT 2023 * End Date: SatJun 17 00:00:00 EDT 2024 * Text: * Chronic obstructive pulmonary disease with (acute) exacerbation* Code: * Start Date: SatAugust 19 00:00:00 EDT 2023 * End Date: SatJun 17 00:00:00 EDT 2024 * Text: * Repeated falls* Code: * [...] 2023 * End Date: * Text: * senior care (current) use of opiate analgesic* Code: * [...] * Text: * Fracture of orbital floor, unspecified side, subsequent encounter for fracture with routine healing* Code: * Start Date: SatJun 16 00:00:00 EDT 2024 * End Date: SatJun 19 00:00:00 EDT 2024 * Text: * Fracture of orbital floor, [...] * Text: * Atherosclerotic heart disease of [place] coronary artery without angina pectoris* Code: * [...] 2024 * End Date: * Text: * [id number] Ping receives a therapeutic diet. (12)* Code: * Start Date: SatJun 25 00:00:00 EDT 2024 * End Date: * Text: [id number] Ping receives a therapeutic diet. (12) * [...] * End Date: * Text: [facility]_Falls - Pnig is at risk for falls/injury as evidenced [...] - Ping is occasionally incontinent. * [facility]Social Services- Ping's wishes will be followed (Advanced Directive/Code Status).* Code: * Start Date: SatJun 29 00:00:00 EDT 2024 * End Date: * Text: Bekcy Feng's wishes will be followed (Advanced Directive/Code [...] and is currently on an antidepressant. * Becky Feng will be involved in discharge planning.* Code: * Start Date: SatJun 29 00:00:00 EDT 2024 * End Date: * Text: Becky Feng will be involved in discharge planning. Vital Signs Vital Sign Measurement Date Systolic Blood Pressure 128.00 mm[Hg] SatJul 07 14:19:03 ED2024 Diastolic Blood Pressure 69.00 mm[Hg] SatJul 07 14:19:03 ED2024 Heart Rate 95.00 /min SatJul 07 14:19 :03 2024 Body weight 217.80 [lb_av] SatJul 07 11:08 :50 EDT 2024 Systolic Blood Pressure 123.00 mm[Hg] SatJul 07 09:18:11 ED2024 Diastolic Blood Pressure 77.00 mm[Hg] SatJul 07 [...] 77.00 mm[Hg] SatJul 07 08:16:22 EDT 2024 Pulse Oximetry 95.00 % SatJul 07 08:16 :22 EDT 2024 Heart Rate 93.00 /min SatJul 07 08:16 :22 EDT 2024 Body temperature 98.60 [degF] SatJul 07 08:1 6:22 EDT 2024 Respiratory rate 18.00 /min SatJul 07 08:1 6:22 EDT 2024 Pulse Oximetry 93.00 % SatJul 07 05:21 :36 EDT 2024 Systolic Blood Pressure 98.00 mm[Hg] SatJul 07 00:21:31 EDT 2024 Diastolic Blood Pressure 62.00 mm[Hg] SatJul 07 00:21:31 EDT 2024 Pulse Oximetry 93.00 % SatJul 07 00:21 :31 EDT 2024 Heart Rate 95.00 /min SatJul [...] :51 EDT 2024 Body weight 213.00 [lb_av] SatJul 06 18:19 :16 EDT 2024 Systolic Blood Pressure [...] 76.00 mm[Hg] SatJul 06 09:29:59 EDT 2024 Pulse Oximetry 93.00 % SatJul 06 09:29 :59 EDT 2024 Pulse Oximetry 93.00 % SatJul 06 09:29 :59 EDT 2024 Heart Rate 84.00 /min SatJul 06 09:29 :59 EDT 2024 Heart Rate 84.00 /min SatJul 06 09:29 :59 EDT 2024 Heart Rate 84.00 /min SatJul 06 09:29 :59 EDT 2024 Body temperature 98.70 [degF] SatJul 06 09:2 9:59 EDT 2024 Respiratory rate 20.00 /min SatJul 06 09:2 9:59 EDT 2024 Pulse Oximetry 94.00 % SatJul 06 05:40 :56 EDT 2024 Systolic Blood Pressure 146.00 mm[Hg] SatJul 06 00:41:34 EDT 2024 Diastolic Blood Pressure 87.00 mm[Hg] SatJul 06 00:41:34 EDT 2024 Pulse Oximetry 94.00 % SatJul 06 00:41 :34 EDT 2024 Heart Rate 94.00 /min SatJul 06 00:41 :34 EDT 2024 Body temperature 98.20 [degF] SatJul 06 00:4 1:34 EDT 2024 Respiratory rate 18.00 /min SatJul 06 00:4 1:34 EDT 2024 Systolic Blood Pressure 146.00 mm[Hg] Sun Jul 05 22:01:27 EDT 2024 Diastolic Blood Pressure 87.00 mm[Hg] Sun Jul 05 22:01:27 EDT 2024 Systolic Blood Pressure 146.00 mm[Hg] Sun Jul 05 22:01:27 EDT 2024 Diastolic Blood Pressure 87.00 mm[Hg] Sun Jul 05 22:01:27 EDT 2024 Pulse Oximetry 99.00 % Sun [...] mm[Hg] Sun Jul 05 10:17:11 EDT 2024 Pulse Oximetry 97.00 % SatJul 05 10:17 :11 EDT 2024 Pulse Oximetry 97.00 % Sun Jul 05 10:17 :11 EDT 2024 Heart Rate 82.00 /min Sun Jul 05 10:17 :11 EDT 2024 Body temperature 98.30 [degF] Sun Jul 05 10:1 7:11 EDT 2024 Respiratory rate 20.00 /min Sun Jul 05 10:1 7:11 EDT 2024 Systolic Blood Pressure 121.00 mm[Hg] Sun Jul 05 09:15:28 EDT 2024 Diastolic Blood Pressure 78.00 mm[Hg] Sun Jul 05 09:15:28 EDT 2024 Systolic Blood Pressure 121.00 mm[Hg] Sun Jul 05 09:15:28 EDT 2024 Diastolic Blood Pressure 78.00 mm[Hg] Sun Jul 05 09:15:28 EDT 2024 Heart Rate 82.00 /min Sun Apr 13 09:15 :28 EDT 2024 Heart Rate 82.00 /min Sun Jul 05 09:15 :28 EDT 2024 Systolic Blood Pressure 133.00 mm[Hg] Sun Jul 05 01:05:24 EDT 2024 Diastolic Blood Pressure 89.00 mm[Hg] Sun Jul 05 01:05:24 EDT 2024 Pulse Oximetry 94.00 % Sun Jul 05 01:05 :24 EDT 2024 Pulse Oximetry 94.00 % Sun Jul 05 01:05 :24 EDT 2024 Pulse Oximetry 94.00 % Sun Jul 05 01:05 :24 EDT 2024 Heart Rate 94.00 /min Sun Jul 05 01:05 :24 EDT 2024 Body temperature 97.10 [degF] Sun Jul 05 01:0 5:24 EDT 2024 Respiratory rate 18.00 /min Sun Jul 05 01:0 5:24 EDT 2024 Systolic Blood Pressure 122.00 mm[Hg] [facility] Apr 12 22:04:55 EDT 2024 Diastolic Blood Pressure 80.00 mm[Hg] [facility] 12 22:04:55 EDT 2024 Systolic Blood Pressure 122.00 mm[Hg] [facility] Apr 12 22:04:55 EDT 2024 Diastolic Blood Pressure 80.00 mm[Hg] [facility] Apr 12 22:04:55 EDT 2024 Heart Rate 94.00 /min [facility] Apr 12 22:04 :55 EDT 2024 Heart Rate 94.00 /min [facility] 12 22:04 :55 EDT 2024 Body weight 212.80 [lb_av] [facility] Apr 12 17:09 :01 EDT 2024 Systolic Blood Pressure 119.00 mm[Hg] Sat Apr 12 14:27:00 EDT 2024 Diastolic Blood Pressure 83.00 mm[Hg] [facility] Apr 12 14:27:00 EDT 2024 Heart Rate 98.00 /min [facility] Apr 12 14:27 :00 EDT 2024 Systolic Blood Pressure 114.00 mm[Hg] Sat Apr 12 11:56:23 EDT 2024 Diastolic Blood Pressure 66.00 mm[Hg] [facility] Apr 12 11:56:23 EDT 2024 Pulse Oximetry 93.00 % Sat Apr 12 11:56 :23 EDT 2024 Pulse Oximetry 93.00 % [facility] Apr 12 11:56 :23 EDT 2024 Heart Rate 95.00 /min [facility] Apr 12 11:56 :23 EDT 2024 Body temperature 98.30 [degF] [facility] Apr 12 11:5 6:23 EDT 2024 Respiratory rate 18.00 /min [facility] Apr 12 11:5 6:23 EDT 2024 Systolic Blood Pressure 104.00 mm[Hg] [facility] Apr 12 08:51:15 EDT 2024 Diastolic Blood Pressure 66.00 mm[Hg] [facility] Apr 12 08:51:15 EDT 2024 Systolic Blood Pressure 104.00 mm[Hg] [facility] Apr 12 08:51:15 EDT 2024 Diastolic Blood Pressure 66.00 mm[Hg] [facility] Apr 12 08:51:15 EDT 2024 Heart Rate 95.00 /min [facility] Apr 12 08:51 :15 EDT 2024 Heart Rate 95.00 /min [facility] Jun 12 08:51 :15 EDT 2024 Systolic Blood Pressure 114.00 mm[Hg] SatJul 03 23:38:37 EDT 2024 Diastolic Blood Pressure 68.00 mm[Hg] SatJul 03 23:38:37 EDT 2024 Pulse Oximetry 97.00 % SatJul 03 23:38 :37 EDT 2024 Pulse Oximetry 97.00 % SatJul 03 23:38 :37 EDT 2024 Pulse Oximetry 97.00 % SatJul 03 23:38 :37 EDT 2024 Heart Rate 89.00 /min SatJul 03 23:38 :37 EDT 2024 Body temperature 97.80 [degF] SatJul 03 23:3 8:37 EDT 2024 Respiratory rate 18.00 /min SatJul 03 23:3 8:37 EDT 2024 Systolic Blood Pressure 114.00 mm[Hg] [...] 88.00 mm[Hg] SatJul 03 08:17:26 EDT 2024 Pulse Oximetry 96.00 % SatJul 03 08:17 :26 EDT 2024 Pulse Oximetry 96.00 % SatJul 03 08:17 :26 EDT 2024 Body temperature 98.20 [degF] SatJul 03 08:1 7:26 EDT 2024 Respiratory rate 20.00 /min SatJul 03 08:1 7:26 EDT 2024 Heart Rate 77.00 /min SatJul 03 08:17 :26 EDT 2024 Pulse Oximetry 95.00 % Johana Jul 02 23:24 :56 EDT 2024 Systolic Blood Pressure 111.00 mm[Hg] SatJul 02 22:46:18 EDT 2024 Diastolic Blood Pressure 66.00 mm[Hg] SatJul 02 22:46:18 EDT 2024 Pulse Oximetry 94.00 % SatJul 02 22:46 :18 EDT 2024 Pulse Oximetry 94.00 % SatJul 02 22:46 :18 EDT 2024 Heart Rate 99.00 /min SatJul 02 22:46 :18 EDT 2024 Body temperature 98.50 [degF] Johana Jul 02 22:4 6:18 EDT 2024 Respiratory rate 18.00 /min Johana Jul 02 22:4 6:18 EDT 2024 Systolic Blood Pressure 111.00 mm[Hg] Johana Jun 10 21:02:29 EDT 2024 Diastolic Blood Pressure [...] 2024 Diastolic Blood Pressure 80.00 mm[Hg] Johana Jun 10 09:45:41 EDT 2024 Systolic Blood Pressure 125.00 mm[Hg] Johana Jun 10 09:45:41 EDT 2024 Diastolic Blood Pressure 80.00 mm[Hg] Johana Jul 02 09:45:41 EDT 2024 Systolic Blood Pressure 125.00 mm[Hg] Johana Jun 10 09:45:41 EDT 2024 Diastolic Blood Pressure 80.00 mm[Hg] Johana Jun 10 09:45:41 EDT 2024 Pulse Oximetry 96.00 % Johana Jul 02 09:45 :41 EDT 2024 Pulse Oximetry 96.00 % Johana Jul 02 09:45 :41 EDT 2024 Heart Rate 91.00 /min Johana Jun 10 09:45 :41 EDT 2025 Heart Rate 91.00 /min Johana Jul 02 09:45 :41 EDT 2024 Heart Rate 91.00 /min Johana Jul 02 09:45 :41 EDT 2024 Body temperature 98.30 [degF] Johana Jul 02 09:4 5:41 EDT 2024 Respiratory rate 20.00 /min Johana Jul 02 09:4 5:41 EDT 2024 Systolic Blood Pressure 111.00 mm[Hg] SatJul 01 23:27:57 EDT 2024 Diastolic Blood Pressure 68.00 mm[Hg] SatJul 01 23:27:57 EDT 2024 Pulse Oximetry 97.00 % SatJul 01 23:27 :57 EDT 2024 Pulse Oximetry 97.00 % SatJul 01 23:27 :57 EDT 2024 Pulse Oximetry 97.00 % SatJul 01 23:27 :57 EDT 2024 Heart Rate 78.00 /min SatJul 01 23:27 :57 EDT 2024 Body temperature 97.90 [degF] SatJul 01 23:2 7:57 EDT 2024 Respiratory rate 22.00 /min SatJul 01 23:2 7:57 EDT 2024 Systolic Blood Pressure 111.00 mm[Hg] [...] 68.00 mm[Hg] SatJul 01 08:35:51 EDT 2024 Pulse Oximetry 92.00 % SatJul 01 08:35 :51 EDT 2024 Pulse Oximetry 92.00 % SatJul 01 08:35 :51 EDT 2024 Heart Rate 80.00 /min SatJul 01 08:35 :51 EDT 2024 Body temperature 98.50 [degF] SatJul 01 08:3 5:51 EDT 2024 Respiratory rate 20.00 /min SatJul 01 08:3 5:51 EDT 2024 Pulse Oximetry 94.00 % SatJul [...] 72.00 mm[Hg] SatJun 30 20:37:15 EDT 2024 Pulse Oximetry 95.00 % SatJun 30 20:37 :15 EDT 2024 Pulse Oximetry 95.00 % SatJun 30 20:37 :15 EDT 2024 Heart Rate 82.00 /min SatJun 30 20:37 :15 EDT 2024 Heart Rate 82.00 /min SatJun 30 20:37 :15 EDT 2024 Heart Rate 82.00 /min SatJun 30 20:37 :15 EDT 2024 Body temperature 97.80 [degF] SatJun 30 20:3 7:15 EDT 2024 Respiratory rate 20.00 /min SatJun 30 20:3 7:15 EDT 2024 Systolic Blood Pressure 105.00 mm[Hg] SatJun 30 14:30:25 EDT 2024 Diastolic Blood Pressure 68.00 mm[Hg] SatJun 30 14:30:25 EDT 2024 Heart Rate 102.00 /min SatJun 30 14:30 :25 EDT 2024 Systolic Blood Pressure 120.00 mm[Hg] SatJun 30 11:13:48 EDT 2024 Diastolic Blood Pressure 73.00 mm[Hg] SatJun 30 11:13:48 EDT 2024 Pulse Oximetry 93.00 % SatJun 30 11:13 :48 EDT 2024 Pulse Oximetry 93.00 % SatJun 30 11:13 :48 EDT 2024 Body weight 214.60 [lb_av] SatJun 30 11:13 :48 EDT 2024 Heart Rate 72.00 /min SatJun 30 11:13 :48 EDT 2024 Body temperature 98.20 [degF] SatJun 30 11:1 3:48 EDT 2024 Respiratory rate 20.00 /min SatJun 30 11:1 3:48 EDT 2024 Systolic Blood Pressure 120.00 mm[Hg] SatJun 30 09:08:10 EDT 2024 Diastolic Blood Pressure 73.00 mm[Hg] SatJun 30 09:08:10 EDT 2024 Systolic Blood Pressure 120.00 mm[Hg] SatJun 30 09:08:10 EDT 202 Diastolic Blood Pressure 73.00 mm[Hg] SatJun 30 [...] 79.00 mm[Hg] SatJun 29 22:31:36 EDT 2024 Pulse Oximetry 96.00 % SatJun 29 22:31 :36 EDT 2024 Heart [...] 77.00 mm[Hg] SatJun 29 11:55:35 EDT 2024 Pulse Oximetry 95.00 % SatJun 29 11:55 :35 EDT 2024 Heart Rate 77.00 /min SatJun 29 11:55 :35 EDT 2024 Body temperature 98.20 [degF] SatJun 29 11:5 5:35 EDT 2024 Respiratory rate 18.00 /min SatJun 29 11:5 5:35 EDT 2024 Systolic [...] mm[Hg] Sun Jun 28 23:37:51 EDT 2024 Pulse Oximetry 96.00 % Sun Jun 28 23:37 :51 EDT 2024 Pulse Oximetry 96.00 % Sun Jun 28 23:37 :51 EDT 2024 Pulse Oximetry 96.00 % Sun Jun 28 23:37 :51 EDT 2024 Heart Rate 96.00 /min Sun Jun 28 23:37 :51 EDT 2024 Body temperature 98.30 [degF] Sun Jun 28 23:3 7:51 EDT 2024 Respiratory rate 18.00 /min Sun Jun 28 23:3 7:51 EDT 2024 Systolic Blood Pressure 117.00 mm[Hg] [...] mm[Hg] Sun Jun 28 10:12:35 EDT 2024 Pulse Oximetry 94.00 % Sun Jun 28 10:12 :35 EDT 2024 Pulse Oximetry 94.00 % Sun Jun 28 10:12 :35 EDT 2024 Heart Rate 92.00 /min Sun Jun 28 10:12 :35 EDT 2024 Body temperature 97.80 [degF] Sun Jun 28 10:1 2:35 EDT 2024 Respiratory rate 20.00 /min Sun Jun 28 10:1 2:35 EDT 2024 Systolic Blood Pressure 131.00 mm[Hg] [...] mm[Hg] Sat Jun 27 23:24:56 EDT 2024 Pulse Oximetry 96.00 % Sat Jun 27 23:24 :56 EDT 2024 Pulse Oximetry 96.00 % Sat Jun 27 23:24 :56 EDT 2024 Pulse Oximetry 96.00 % Sat Jun 27 23:24 :56 EDT 2024 Heart Rate 102.00 /min Sat Jun 27 23:24 :56 EDT 2024 Body temperature 97.80 [degF] Sat Jun 27 23:2 4:56 EDT 2024 Respiratory rate 18.00 /min Sat Jun 05 23:2 4:56 EDT 5 Systolic Blood Pressure 97.00 mm[Hg] [...] 105.00 mm[Hg] Sat Jun 05 15:30:10 EDT 2024 Diastolic Blood Pressure 63.00 mm[Hg] Sat Jun 05 15:30:10 EDT 2024 Heart Rate 65.00 /min Sat Jun 05 15:30 :10 EDT 2024 Body weight 219.20 [lb_av] Sat Jun 05 10:10 :33 EDT 2024 Systolic Blood Pressure 134.00 mm[Hg] Sat Jun 05 09:22:55 EDT 2024 Diastolic Blood Pressure 91.00 mm[Hg] Sat Jun 05 09:22:55 EDT 5 Systolic Blood Pressure 134.00 mm[Hg] Sat Jun 05 09:22:55 EDT 2024 Diastolic Blood Pressure 91.00 mm[Hg] Sat Jun 05 09:22:55 EDT 2024 Systolic Blood Pressure 134.00 mm[Hg] Sat Jun 05 09:22:55 EDT 2024 Diastolic Blood Pressure 91.00 mm[Hg] Sat Jun 05 09:22:55 EDT 2024 Heart Rate 93.00 /min Sat Jun 05 09:22 :55 EDT 2024 Heart Rate 93.00 /min Sat Jun 05 09:22 :55 EDT 5 Systolic Blood Pressure 134.00 mm[Hg] Sat Jun 05 09:03:42 EDT 2024 Diastolic Blood Pressure 91.00 mm[Hg] Sat Jun 05 09:03:42 EDT 2024 Pulse Oximetry 96.00 % Sat Jun 05 09:03 :42 EDT 2024 Pulse Oximetry 96.00 % Sat Jun 05 09:03 :42 EDT 2024 Heart Rate 93.00 /min Sat Jun 05 09:03 :42 EDT 2024 Body temperature 98.20 [degF] Sat Jun 27 09:0 3:42 EDT 2024 Respiratory rate 20.00 /min Sat Jun 27 09:0 3:42 EDT 2024 Systolic Blood Pressure 118.00 mm[Hg] Sat Jun 27 00:34:04 EDT 2024 Diastolic Blood Pressure 58.00 mm[Hg] Sat Jun 27 00:34:04 EDT 2024 Pulse Oximetry 94.00 % [facility] Jun 27 00:34 :04 EDT 2024 Pulse Oximetry 94.00 % [facility] Jun 27 00:34 :04 EDT 2024 Pulse Oximetry 94.00 % [facility] Jun 27 00:34 :04 EDT 2024 Heart Rate 88.00 /min [facility] Jun 27 00:34 :04 EDT 2024 Body temperature 98.20 [degF] [facility] Jun 27 00:3 4:04 EDT 2024 Respiratory rate 18.00 /min [facility] Jun 27 00:3 4:04 EDT 2024 Systolic Blood Pressure 118.00 mm[Hg] [...] 83.00 mm[Hg] SatJun 26 09:49:20 EDT 2024 Pulse Oximetry 94.00 % SatJun 26 09:49 :20 EDT 2024 Pulse Oximetry 94.00 % SatJun 26 09:49 :20 EDT 2024 Heart Rate 100.00 /min SatJun 26 09:49 :20 EDT 2024 Heart Rate 100.00 /min SatJun 26 09:49 :20 EDT 2024 Heart Rate 100.00 /min SatJun 26 09:49 :20 EDT 2024 Body temperature 98.20 [degF] SatJun 26 09:4 9:20 EDT 2024 Respiratory rate 18.00 /min SatJun 26 09:4 9:20 EDT 2024 Pulse Oximetry 92.00 % SatJun 26 06:15 :11 EDT 2024 Systolic Blood Pressure 103.00 mm[Hg] SatJun 26 00:42:14 EDT 2024 Diastolic Blood Pressure 68.00 mm[Hg] SatJun 26 00:42:14 EDT 2024 Pulse Oximetry 98.00 % SatJun 26 00:42 :14 EDT 2024 Pulse Oximetry 98.00 % SatJun 26 00:42 :14 EDT 2024 Heart Rate 76.00 /min SatJun 26 00:42 :14 EDT 2024 Body temperature 98.00 [degF] SatJun 26 00:4 2:14 EDT 2024 Respiratory rate 20.00 /min SatJun 26 00:4 2:14 EDT 2024 Systolic Blood Pressure 103.00 mm[Hg] SatJun 25 22:13:40 EDT 2024 Diastolic Blood Pressure 68.00 mm[Hg] SatJun 25 22:13:40 EDT 2024 Systolic Blood Pressure 103.00 mm[Hg] SatJun 25 22:13:40 EDT 2024 Diastolic Blood Pressure 68.00 mm[Hg] SatJun 25 22:13:40 EDT 2024 Heart Rate 76.00 /min SatJun 25 22:13 :40 EDT 2024 Heart Rate 76.00 /min Johana Jun 25 22:13 :40 EDT 2024 Systolic Blood Pressure 128.00 mm[Hg] Johana Jun 25 14:20:14 EDT 2024 Diastolic Blood Pressure 71.00 mm[Hg] Johana Jun 25 14:20:14 EDT 2024 Heart Rate 84.00 /min Johana Jun 25 14:20 :14 EDT 2024 Body weight 219.40 [lb_av] Johana Jun 25 12:57 :15 EDT 2024 Systolic Blood Pressure 127.00 mm[Hg] Johana Jun 25 08:58:17 EDT 2024 Diastolic Blood Pressure 76.00 mm[Hg] Johana Jun 25 08:58:17 EDT 2024 Pulse Oximetry 90.00 % Johana Jun 25 08:58 :17 EDT 2024 Heart Rate 78.00 /min Johana Jun 25 08:58 :17 EDT 2024 Body temperature 98.70 [degF] Johana Jun 25 08:5 8:17 EDT 2024 Respiratory rate 20.00 /min Johana Jun 25 08:5 8:17 EDT 2024 Systolic Blood Pressure 127.00 mm[Hg] [...] 63.00 mm[Hg] SatJun 24 20:08:36 EDT 2024 Pulse Oximetry 95.00 % SatJun 24 20:08 :36 EDT 2024 Pulse Oximetry 95.00 % SatJun 24 20:08 :36 EDT 2024 Heart Rate 77.00 /min SatJun 24 20:08 :36 EDT 2024 Heart Rate 77.00 /min SatJun 24 20:08 :36 EDT 2024 Heart Rate 77.00 /min SatJun 24 20:08 :36 EDT 2024 Body temperature 98.40 [degF] SatJun 24 20:0 8:36 EDT 2024 Respiratory rate 18.00 /min SatJun 24 20:0 8:36 EDT 2024 Systolic Blood Pressure 134.00 mm[Hg] [...] 51.00 mm[Hg] SatJun 24 08:26:19 EDT 2024 Pulse Oximetry 94.00 % SatJun 24 08:26 :19 EDT 2024 Pulse Oximetry 94.00 % SatJun 24 08:26 :19 EDT 2024 Heart Rate 73.00 /min SatJun 24 08:26 :19 EDT 2024 Body temperature 98.30 [degF] SatJun 24 08:2 6:19 EDT 2024 Respiratory rate 18.00 /min SatJun 24 08:2 6:19 EDT 2024 Systolic Blood Pressure 144.00 mm[Hg] SatJun 23 23:34:01 EDT 2024 Diastolic Blood Pressure 82.00 mm[Hg] SatJun 23 23:34:01 EDT 2024 Pulse Oximetry 96.00 % SatJun 23 23:34 :01 EDT 2024 Pulse Oximetry 96.00 % SatJun 23 23:34 :01 EDT 2024 Pulse Oximetry 96.00 % SatJun 23 23:34 :01 EDT 2024 Heart Rate 96.00 /min SatJun 23 23:34 :01 EDT 2024 Body temperature 98.20 [degF] SatJun 23 23:3 4:01 EDT 2024 Respiratory rate 18.00 /min SatJun 23 23:3 4:01 EDT 2024 Systolic Blood Pressure 144.00 mm[Hg] [...] 76.00 mm[Hg] SatJun 23 08:28:32 EDT 2024 Pulse Oximetry 95.00 % SatJun 23 08:28 :32 EDT 2024 Pulse Oximetry 95.00 % SatJun 23 08:28 :32 EDT 2024 Heart Rate 93.00 /min SatJun 23 08:28 :32 EDT 2024 Body temperature 98.20 [degF] SatJun 23 08:2 8:32 EDT 2024 Respiratory rate 18.00 /min SatJun 23 08:2 8:32 EDT 2024 Pulse Oximetry 92.00 % SatJun 23 05:33 :34 EDT 2024 Systolic Blood Pressure 126.00 mm[Hg] SatJun 23 00:41:08 EDT 2024 Diastolic Blood Pressure 69.00 mm[Hg] SatJun 23 00:41:08 EDT 2024 Pulse Oximetry 97.00 % SatJun 23 00:41 :08 EDT 2024 Heart Rate 73.00 /min SatJun 23 00:41 :08 EDT 2024 Body temperature 98.30 [degF] SatJun 23 00:4 1:08 EDT 2024 Respiratory rate 18.00 /min SatJun 23 00:4 1:08 EDT 2024 Systolic Blood Pressure 126.00 mm[Hg] SatJun 22 21:40:42 EDT 5 Diastolic Blood Pressure 69.00 mm[Hg] SatJun 22 21:40:42 EDT 5 Systolic Blood Pressure 126.00 mm[Hg] SatJun 22 21:40:42 EDT 5 Diastolic Blood Pressure 69.00 mm[Hg] SatJun 22 21:40:42 EDT 2024 Pulse Oximetry 97.00 % SatJun 22 21:40 :42 EDT 2024 Heart Rate 73.00 /min SatJun 22 21:40 :42 EDT 2024 Heart Rate 73.00 /min SatJun 22 21:40 :42 EDT 5 Systolic Blood Pressure 121.00 mm[Hg] SatJun 22 15:20:29 EDT 2024 Diastolic Blood Pressure 68.00 mm[Hg] SatJun 22 15:20:29 EDT 2024 Heart Rate 75.00 /min SatJun 22 15:20 [...] 82.00 mm[Hg] SatJun 22 09:31:26 EDT 5 Pulse Oximetry 96.00 % SatJun 22 09:31 :26 EDT 2024 Pulse Oximetry 96.00 % SatJun 22:31 :26 EDT 5 Heart Rate 71.00 /min SatJun 22:31 :26 EDT 5 Heart Rate 71.00 /min SatJun 22:31 :26 EDT 2024 Heart Rate 71.00 /min SatJun 22 09:31 :26 EDT 5 Body temperature 98.20 [degF] SatJun 22 09:3 1:26 EDT 2025 Respiratory rate 20.00 /min SatJun 22 09:3 1:26 EDT 2024 Pulse Oximetry 92.00 % SatJun 22 06:45 :36 EDT 2024 Systolic Blood Pressure 129.00 mm[Hg] SatJun 22 00:00:14 EDT 2024 Diastolic Blood Pressure 78.00 mm[Hg] SatJun 22 00:00:14 EDT 2024 Pulse Oximetry 95.00 % SatJun 22 00:00 :14 EDT 2024 Heart Rate 84.00 /min SatJun 22 00:00 :14 EDT 2024 Body temperature 98.20 [degF] SatJun 22 00:0 0:14 EDT 2024 Respiratory rate 18.00 /min SatJun 22 00:0 0:14 EDT 2024 Systolic Blood Pressure 146.00 mm[Hg] SatJun 21 22:01:53 EDT 2024 Diastolic Blood Pressure 86.00 mm[Hg] Sat 30 22:01:53 EDT 2024 Systolic Blood Pressure 146.00 mm[Hg] Sat 30 22:01:53 EDT 2024 Diastolic Blood Pressure 86.00 mm[Hg] Sat 30 22:01:53 EDT 2024 Pulse Oximetry 95.00 % Sat 30 22:01 :53 EDT 2024 Heart Rate 84.00 /min Sat 30 22:01 :53 EDT 2024 Heart Rate 84.00 /min Sat 30 22:01 :53 EDT 2024 Systolic Blood Pressure 130.00 mm[Hg] Sat 30 15:07:33 EDT 2024 Diastolic Blood Pressure 91.00 mm[Hg] Sat 30 15:07:33 EDT 2024 Heart Rate 85.00 /min Sat 30 15:07 :33 EDT 2024 Body weight 214.20 [lb_av] Sat 30 12:51 :03 EDT 2024 Systolic Blood Pressure 106.00 mm[Hg] Sun Mar 30 09:29:04 EDT 2024 Diastolic Blood Pressure 64.00 mm[Hg] Sat 30 09:29:04 EDT 2024 Pulse Oximetry 94.00 % Sat 30 09:29 :04 EDT 2024 Pulse Oximetry 94.00 % Sat 30 09:29 :04 EDT 2024 Heart Rate 73.00 /min Sat 30 09:29 :04 EDT 2024 Body temperature 98.30 [degF] Sun Mar 30 09:2 9:04 EDT 5 Respiratory rate 20.00 /min Sun Mar 30 09:2 9:04 EDT 2024 Systolic Blood Pressure 106.00 mm[Hg] Sun Mar 30 09:15:29 EDT 2024 Diastolic Blood Pressure 64.00 mm[Hg] Sun Mar 30 09:15:29 EDT 2024 Systolic Blood Pressure 106.00 mm[Hg] Sun Mar 30 09:15:29 EDT 2024 Diastolic Blood Pressure 64.00 mm[Hg] Sun Mar 30 09:15:29 EDT 2024 Systolic Blood Pressure 106.00 mm[Hg] Sun Mar 30 09:15:29 EDT 2024 Diastolic Blood Pressure 64.00 mm[Hg] Sun Mar 30 09:15:29 EDT 2024 Heart Rate 73.00 /min Sun Mar 30 09:15 :29 EDT 2024 Heart Rate 73.00 /min Sun [...] Sat Mar 29 23:5 8:36 EDT 2024 Systolic Blood Pressure 133.00 mm[Hg] [...] 105.00 mm[Hg] Sat Mar 29 14:50:50 EDT 5 Diastolic Blood Pressure 71.00 mm[Hg] Sat Mar 29 14:50:50 EDT 5 Heart Rate 73.00 /min Sat May 29 14:50 :50 EDT 5 Systolic Blood Pressure 122.00 mm[Hg] Sat May 29 10:51:53 EDT 5 Diastolic Blood Pressure 83.00 mm[Hg] Sat Mar 29 10:51:53 EDT 2024 Pulse Oximetry 95.00 % Sat Jun 20 10:51 :53 EDT 2024 Pulse Oximetry 95.00 % Sat Jun 20 10:51 :53 EDT 2024 Body weight 212.20 [lb_av] Sat Mar 29 10:51 :53 EDT 2024 Heart Rate 94.00 /min Sat Jun 20 10:51 :53 EDT 2024 Body temperature 98.50 [degF] Sat Jun 20 10:5 1:53 EDT 2024 Respiratory rate 20.00 /min Sat Jun 20 10:5 1:53 EDT 2024 Systolic Blood Pressure 122.00 mm[Hg] Sat May 29 08:45:14 EDT 2024 Diastolic Blood Pressure 83.00 mm[Hg] Sat Jun 20 08:45:14 EDT 2024 Systolic Blood Pressure 122.00 mm[Hg] Sat Mar 08:45:14 EDT 2024 Diastolic Blood Pressure 83.00 mm[Hg] Sat Mar 08:45:14 EDT 2024 Systolic Blood Pressure 122.00 mm[Hg] Sat Jun 20 08:45:14 EDT 2024 Diastolic Blood Pressure 83.00 mm[Hg] Sat Mar 08:45:14 EDT 2024 Heart Rate 94.00 /min Sat Jun 20 08:45 :14 EDT 2024 Heart Rate 94.00 /min Sat Mar 08:45 :14 EDT 2024 Systolic Blood Pressure 100.00 mm[Hg] Sat Mar 29 00:18:31 EDT 2024 Diastolic Blood Pressure 58.00 mm[Hg] Sat Mar 29 00:18:31 EDT 2024 Pulse Oximetry 95.00 % Sat May 29 00:18 :31 EDT 2024 Pulse Oximetry 95.00 % Sat Mar 29 00:18 :31 EDT 2024 Heart Rate 86.00 /min Sat Mar 29 00:18 :31 EDT 2024 Body temperature 98.20 [degF] Sat Mar 29 00:1 8:31 EDT 5 Respiratory rate 20.00 /min Sat 29 00:1 8:31 EDT 5 Systolic Blood Pressure 100.00 mm[Hg] SatJun 19 21:22:03 EDT 2024 Diastolic Blood Pressure 58.00 mm[Hg] SatJun 19 21:22:03 EDT 5 Systolic Blood Pressure 100.00 mm[Hg] SatJun 19 21:22:03 EDT 2024 Diastolic Blood Pressure 58.00 mm[Hg] SatJun 19 21:22:03 EDT 2024 Pulse Oximetry 95.00 % SatJun 19 21:22 :03 EDT 2024 Heart Rate 86.00 /min SatJun 19 21:22 :03 EDT 2024 Heart Rate 86.00 /min SatJun 19 21:22 :03 EDT 2024 Body Height 65.00 [in_i] SatJun 19 16:40 :08 EDT 2024 Systolic Blood Pressure 127.00 mm[Hg] SatJun 19 15:16:00 EDT 2024 Diastolic Blood Pressure 84.00 mm[Hg] SatJun 19 15:16:00 EDT 2024 Heart Rate 104.00 /min SatJun 19 15:16 :00 EDT 5 Body weight 211.80 [lb_av] SatJun 19 12:57 :46 EDT 2024 Systolic Blood Pressure 130.00 mm[Hg] SatJun 19 09:29:25 EDT 2024 Diastolic Blood Pressure 79.00 mm[Hg] SatJun 19 09:29:25 EDT 2024 Systolic Blood Pressure 130.00 mm[Hg] SatJun 19 09:29:25 EDT 2024 Diastolic Blood Pressure 79.00 mm[Hg] SatJun 19 09:29:25 EDT 5 Systolic Blood Pressure 130.00 mm[Hg] SatJun 19 09:29:25 EDT 5 Diastolic Blood Pressure 79.00 mm[Hg] SatJun 19 09:29:25 EDT 5 Heart Rate 94.00 /min SatJun 19 09:29 :25 EDT 2024 Heart Rate 94.00 /min SatJun 19 09:29 :25 EDT 2024 Systolic Blood Pressure 130.00 mm[Hg] SatJun 19 08:29:50 EDT 2024 Diastolic Blood Pressure 79.00 mm[Hg] SatJun 19 08:29:50 EDT 2024 Pulse Oximetry 91.00 % SatJun 19 08:29 :50 EDT 2024 Pulse Oximetry 91.00 % SatJun 19 08:29 :50 EDT 2024 Heart Rate 94.00 /min SatJun 19 08:29 :50 EDT 2024 Body temperature 97.90 [degF] SatJun 19 08:2 9:50 EDT 2024 Respiratory rate 20.00 /min SatJun 19 08:2 9:50 EDT 2024 Pulse Oximetry 96.00 % SatJun 19 04:00 :09 EDT 2024 Systolic Blood Pressure 127.00 mm[Hg] SatJun 19 00:46:34 EDT 2024 Diastolic Blood Pressure 75.00 mm[Hg] SatJun 19 00:46:34 EDT 2024 Pulse Oximetry 98.00 % SatJun 19 00:46 :34 EDT 2024 Pulse Oximetry 98.00 % SatJun 19 00:46 :34 EDT 2024 Heart Rate 73.00 /min SatJun 19 00:46 :34 EDT 2024 Body temperature 98.00 [degF] SatJun 19 00:4 6:34 EDT 2024 Respiratory rate 20.00 /min SatJun 19 00:4 6:34 EDT 2024 Systolic Blood Pressure 127.00 mm[Hg] SatJun 18 22:07:32 EDT 2024 Diastolic Blood Pressure 75.00 mm[Hg] SatJun 18 22:07:32 EDT 2024 Systolic Blood Pressure 127.00 mm[Hg] SatJun 18 22:07:32 EDT 2024 Diastolic Blood Pressure 75.00 mm[Hg] Johana Jun 18 22:07:32 EDT 2024 Heart Rate 73.00 /min SatJun 18 22:07 :32 EDT 2024 Heart Rate 73.00 /min Johana Jun 18 22:07 :32 EDT 2024 Systolic Blood Pressure 109.00 mm[Hg] SatJun 18 15:42:35 EDT 2024 Diastolic Blood Pressure 82.00 mm[Hg] Johana Jun 18 15:42:35 EDT 2024 Heart Rate 94.00 /min SatJun 18 15:42 :35 EDT 2024 Body weight 212.60 [lb_av] SatJun 18 12:40 :31 EDT 2024 Systolic Blood Pressure 117.00 mm[Hg] Johana Jun 18 10:26:48 EDT 2024 Diastolic Blood Pressure 51.00 mm[Hg] SatJun 18 10:26:48 EDT 2024 Pulse Oximetry 92.00 % SatJun 18 10:26 :48 EDT 2024 Pulse Oximetry 92.00 % SatJun 18 10:26 :48 EDT 2024 Heart Rate 94.00 /min SatJun 18 10:26 :48 EDT 2024 Body temperature 97.90 [degF] Johana Jun 18 10:2 6:48 EDT 2024 Respiratory rate 20.00 /min SatJun 18 10:2 6:48 EDT 2024 Systolic Blood Pressure 117.00 mm[Hg] Johana Jun 18 09:47:03 EDT 2024 Diastolic Blood Pressure 51.00 mm[Hg] Ojhana Jun 18 09:47:03 EDT 2024 Systolic Blood Pressure 117.00 mm[Hg] Johana Jun 18 09:47:03 EDT 2024 Diastolic Blood Pressure 51.00 mm[Hg] Johana Jun 18 09:47:03 EDT 2024 Systolic Blood Pressure 117.00 mm[Hg] Johana Jun 18 09:47:03 EDT 2024 Diastolic Blood Pressure 51.00 mm[Hg] Johana Jun 18 09:47:03 EDT 2024 Heart Rate 94.00 /min SatJun 18 09:47 :03 EDT 2024 Heart Rate 94.00 /min Johana Jun 18 09:47 :03 EDT 2024 Pulse Oximetry 100.00 % SatJun 17 23:02 :24 EDT 2024 Systolic Blood Pressure 135.00 mm[Hg] SatJun 17 22:17:36 EDT 2024 Diastolic Blood Pressure 95.00 mm[Hg] SatJun 17 22:17:36 EDT 2024 Pulse Oximetry 100.00 % SatJun 17 22:17 :36 EDT 2024 Heart Rate 94.00 /min SatJun 17 22:17 :36 EDT 2024 Body temperature 98.20 [degF] SatJun 17 22:1 7:36 EDT 2024 Respiratory rate 19.00 /min SatJun 17 22:1 7:36 EDT 2024 Systolic Blood Pressure 135.00 mm[Hg] [...] 56.00 mm[Hg] SatJun 17 13:47:06 EDT 2024 Pulse Oximetry 99.00 % SatJun 17 13:47 :06 EDT 2024 Heart Rate 92.00 /min SatJun 17 13:47 :06 EDT 2024 Body temperature 98.30 [degF] SatJun 17 13:4 7:06 EDT 2024 Respiratory rate 18.00 /min SatJun 17 13:4 7:06 EDT 2024 Systolic Blood Pressure 91.00 mm[Hg] [...] 75.00 mm[Hg] SatJun 16 23:31:08 EDT 2024 Pulse Oximetry 95.00 % SatJun 16 23:31 :08 EDT 2024 Heart Rate 69.00 /min SatJun 16 23:31 :08 EDT 2024 Body temperature 98.50 [degF] SatJun 16 23:3 1:08 EDT 2024 Respiratory rate 18.00 /min SatJun 16 23:3 1:08 EDT 2024 Systolic Blood Pressure 127.00 mm[Hg] SatJun 16 21:50:09 EDT 2024 Diastolic Blood Pressure 75.00 mm[Hg] SatJun 16 21:50:09 EDT 2024 Systolic Blood Pressure 106.00 mm[Hg] SatJun 16 17:19:13 EDT 2024 Diastolic Blood Pressure 66.00 mm[Hg] SatJun 16 17:19:13 EDT 2024 Pulse Oximetry 97.00 % SatJun 16 17:19 :13 EDT 2024 Heart Rate 89.00 /min SatJun 16 17:19 :13 EDT 2024 Body weight 212.20 [lb_av] SatJun 16 17:19 :13 EDT 2024 Body temperature 97.10 [degF] SatJun 16 17:1 9:13 EDT 2024 Respiratory rate 20.00 /min SatJun 16 17:1 9:13 EDT 2024 Body weight 212.20 [lb_av] SatJun 16 16:58 :00 EDT 2024 Reason for Referral Past Medical History
--- OUTSIDE RECORDS SUMMARY | 2024-10-27 10:11 | XMS_ITS | Referral Summary ---
Author Organization [facility] Address [address] [place] [id number] Care Team Providers Care Perinatal Breastfeeding Assistant Name Role Phone Meagan Yusuf MD Primary Care Provider + Annemarie Lea MD Unavailable [phone] Margy Walker MD PhD Unavailable [phone] Geraldine Barbosa NP Unavailable [phone] Encounters Date Type Department Care Team Description 09/01/2024 11:00 AM CDT Office Visit [facility] [address] [place] [address] Allie Contreras NP Persistent atrial fibrillation (HCC) (Primary Dx); Frequent falls; Intraparenchymal hematoma of brain, with unknown loss of consciousness status, unspecified laterality, subsequent encounter; Nonrheumatic mitral valve regurgitation; Nonrheumatic tricuspid valve regurgitation; Chronic HFrEF (heart failure with reduced ejection fraction) (HCC) 08/18/2024 Orders Only [facility] Health Information Management [address] [place] [id number] Scanning, Provider 08/07/2024 Results Follow-Up [facility] [address] [place] [address] [address] [place] [address] Cinda Jimenez MD Transthoracic Echo (TTE) Complete W Doppler/CF 08/06/2024 2:00 PM CDT Ancillary Procedure [facility] at [address] [place] [address] Nonrheumatic mitral valve regurgitation; Nonrheumatic tricuspid valve regurgitation from Last 3 Months Allergies Active Allergy [...] 3 (three) times a day 4 Active cyanocobalamin (Vitamin B-12) 1,000 mcg [...] ns:constipation Take 17 g by mouth daily Active senna-docusate (PERICOLACE) 8.6-50 mg Take 2 tablets by mouth 2 (two) times a day Active bumetanide (BUMEX) 2 mg tablet Take 1 tablet (2 mg total) by mouth daily 30 tablet 3 Active metOLazone (ZAROXOLYN) 2.5 mg tablet Take 1 tablet (2.5 mg total) by mouth daily 30 tablet 11 5 07/23/19 26 Active fluticasone-ume clidin-vilanter (TRELEGY ELLIPTA) 200-62.5-25 mcg inhaler Inhale 1 puff every day by inhalation route. Active Active Problems Problem Noted Date Diagnosed [...] 05/23/2024 Assessment & Plan (05/26/2024 9:50 AM EFFICIENCY MANAGER): #COPD #TRAVIS, chronic #Chronic hypoxic respiratory failure [...] 05/23/2024 Assessment & Plan (05/27/2024 11:52 AM EFFICIENCY MANAGER): 05/23 tx out ICU, PT/OT - 05/25: awaiting repeat swallow evaluation, calorie counts - 05/26: Continue Tfs at nightly, Calorie counts. Wean O2 back to home 4L. Not medically ready for discharge. 05/27: Patient is medically stable for discharge, SW/CM updated. Discharge pending facility bed availability Treatment note 05/14 [x] Feeding difficulties 05/22/2024 Assessment & Plan (05/27/2024 11:55 AM EFFICIENCY MANAGER): SBFT placed by ENT 05/21 TFs commenced [...] NPO, resumed tube feeds, ordered for repeat SAP INTEGRATION ARCHITECT evaluation. Recommend up in chair for all meals and 1:1 assistance during meals pending SAP INTEGRATION ARCHITECT evaluation. Discussed with patient and nurse to inform provider of any change in clinical exam or vital signs. 05/25: repeat Swallow- regular diet, regular thin liquids assistance with meals, calorie counts ordered, cycle tube feeding over PM MBS (05/27): swallow mechanism is normal Respiratory distress 05/20/2024 Assessment & Plan (05/27/2024 11:55 AM EFFICIENCY MANAGER): Transferred to SICU 05/18 ON after respiratory [...] 05/14/2024 Assessment & Plan (05/15/2024 2:15 PM EFFICIENCY MANAGER): - Orthostatic vital signs (05/14): negative - [...] 05/14/2024 Assessment & Plan (05/14/2024 12:48 PM EFFICIENCY MANAGER): - Tylenol 1g q6h - Gabapentin 300mg TID - Robaxin 500mg TID PRN - Oxycodone 5mg q4h PRN Closed fracture of distal end of left radius Assessment & Plan (05/27/2024 11:55 AM EFFICIENCY MANAGER): - Plastics consult - L hand/wrist xr (05/14): Comminuted intra-articular fracture of the left distal radius with mild articular surface depression, Apparent widening of the left scapholunate interval may be seen in setting of ligamentous injury. - NWB LUE, elevate LUE - LUE sugartong splint 05/18 ORIF L radius w PRS ([place]ells) - PT/OT - Follow up outpatient with PRS (Kells) Hypomagnesemia 05/14/2024 Assessment & Plan (05/25/2024 11:39 AM EFFICIENCY MANAGER): - Magnesium (05/14): 1.9mg/dL - 05/14: replete Magnesium 2g IV - Magnesium (05/15): 2.0mg/dL - Magnesium (05/20): 2.2mg/dL - Magnesium (05/25): 2.0mg/dL - continue to trend Magnesium Fall, initial encounter 05/13/2024 Assessment & Plan (05/15/2024 10:18 AM EFFICIENCY MANAGER): Syncopal workup given unclear mechanism (TTE, carotid [...] months Assessment & Plan (05/27/2024 11:52 AM EFFICIENCY MANAGER): Ophtho c/s ---HOB elevation, open-mouth sneezing, no [...] to be tasked with Dr Lea's team. [phone] Antibiotics Ancef 7day (complete) Intraparenchymal hematoma of brain due to trauma 05/13/2024 Assessment & Plan (05/23/2024 4:06 PM EFFICIENCY MANAGER): - Neurosurgery consult - Repeat head CT [...] 05/13/2024 Assessment & Plan (05/25/2024 11:36 AM EFFICIENCY MANAGER): - Hold Xarelto - home diltiazem 180 [...] 05/13/2024 Assessment & Plan (05/24/2024 3:43 PM EFFICIENCY MANAGER): Grade II diastolic dysfunction -EF 70%, moderate pulmonary hypertension (09/2021) 3/: resumed home diltiazem. CTM BP and resume home lasix when appropriate. Restless leg syndrome 05/13/2024 Assessment & Plan (05/13/2024 2:32 PM EFFICIENCY MANAGER): - Continue home ropinrole and pramipexole, gabapentin Mood disorder 05/13/2024 Assessment & Plan (05/13/2024 2:37 PM EFFICIENCY MANAGER): Continue home zoloft Heart failure with mildly re duced ejection fraction (HFmrEF) 01/15/2024 Assessment & Plan (05/27/2024 11:57 AM EFFICIENCY MANAGER): #HTN, chronic #HFrEF, chronic #Severe MR #Severe TI #Severe pulmonary hypertension - TTEs as above - Home O2 4L - Follows with 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 02/10/2021 Mixed hyperlipidemia 02/10/2021 Chronic obstructive pulmonary disease 02/10/2021 Chronic respiratory failure with hypoxia 021 TRAVIS on CPAP 02/10/2021 Frequent falls 02/10/2021 Resolved Problems Problem Noted Date Diagnosed Date Resolved Date COPD (chronic obstructive pulmonary disease) 05/23/2024 Assessment & Plan (05/13/2024 2:35 PM EFFICIENCY MANAGER): - home meds: albuterol, ipratopium-albuterol Discharge planning issues 05/13/2024 Assessment & Plan (05/18/2024 2:27 PM EFFICIENCY MANAGER): - 05/14: orthostatic vital signs pending, syncope [...] on file Legal Sex Female 4:29 PM EFFICIENCY MANAGER Gender Identity Not on file Sexual Orientation Not on file Last Filed Vital Signs Vital Sign Reading Time Taken Comments Blood Pressure 104/74 09/01/2024 11:18 AM CDT Pulse 74 09/01/2024 11:18 AM CDT Temperature 37.1 C (98.8 F) 05/27/2024 3:28 PM EFFICIENCY MANAGER Respiratory Rate 20 05/27/2024 11:49 AM EFFICIENCY MANAGER Oxygen Saturation 99% 09/01/2024 11:18 AM CDT Inhaled Oxygen Concentration - - Weight 92.1 kg (203 lb) 09/01/2024 11:18 AM CDT Height 165.1 cm (5' 5) 09/01/2024 11:18 AM CDT Body Mass Index 33.78 09/01/2024 11:18 AM CDT Plan of Treatment Not on file Medical Devices Implanted Type Area Tar Boiler Device Identifier Shelf Expiration Date Model / Serial / Lot Implantech Sheeting Silastic Non Reinforced Alliedsil [id number] Silicone - - [id number] Implanted:Qty: 1 on 05/19/2024 by Annemarie Lea MD at [facility] Other - see comments Right: Face Implantech 07/03/2028 / / [place] Craniomaxillofacial Craniomaxillofacial Right 3d Large Implant Orbital Medpor Titan [id number] - [id number] Implanted:Qty: 1 on 05/19/2024 by Annemarie Lea MD at [facility] Other - see comments Right: Face [place] Craniomaxillofacial 08/19/2032 [id number] / / [place] Craniomaxillofacial 1.2mm 4mm Self Drill Axial Stability Lower Profile Screw Bone 56-98247 - [id number] Implanted:Qty: 1 on 05/19/2024 by Annemarie Lea MD at [facility] Other - see comments Right: Face [place] Craniomaxillofacial 56-1290 4 / / Medartis Inc Plt 2.5 Adaptive Ii Trilock Dist Rad Vol L 10h Narrow T2.0 A-4750.101 - [id number] Implanted:Qty: 1 on 05/18/2024 by Margy Walker MD PhD at [facility] Left: Wrist [employer] Inc A-4750. 101 / / [employer] 2.5mm 18mm Lock Cortical Screw Bone A-5750.18 - [id number] Implanted:Qty: 1 on 05/18/2024 by Margy Walker MD PhD at [facility] Left: Wrist [employer] A-5750. 18 / / [employer] 2.5mm 22mm Lock Cortical Screw Bone A-5750.22 - [id number] Implanted:Qty: 2 on 05/18/2024 by Margy Walker MD PhD at [facility] Left: Wrist [employer] A-5750. 22 / / [employer] 2.5mm 20mm Lock Cortical Screw Bone A-5750.20 - [id number] Implanted:Qty: 3 on 05/18/2024 by Margy Walker MD PhD at [facility] Left: Wrist [employer] A-5750. 20 / / [employer] Aptus 2.5mm 14mm Lock Cortical Screw Bone A-5750.14 - [id number] Implanted:Qty: 2 on 05/18/2024 by Margy Walker MD PhD at [facility] Left: Wrist [employer] A-5750. 14 / / [employer] Aptus 2.5mm 14mm Cortical Screw Bone A-5700.14 - [id number] Implanted:Qty: 1 on 05/18/2024 by Margy Walker MD PhD at [facility] Left: Wrist [employer] A-5700. 14 / / [employer] 2.5mm 12mm Lock Cortical Screw Bone A-5750.12 - [id number] Implanted:Qty: 1 on 05/18/2024 by Margy Walker MD PhD at [facility] Left: Wrist [employer] A-5750. 12 / / Explanted Type Area Tar Boiler Device Identifier Shelf Expiration Date Model / Serial / Lot [employer] Inc Aptus 2.5mm 16mm Cortical Screw Bone A-5700.16 - [id number] Explanted:Qty: 1 on 05/18/2024 by Margy Walker MD PhD at [facility] Left: Wrist [employer] A-5700 .16 / / [employer] 2.5mm 18mm Lock Cortical Screw Bone A-5750.18 - [id number] Explanted:Qty: 1 on 05/18/[address] [facility] Left: Wrist [employer] Inc A-5750 .18 / / Procedures Procedure Name Priority Date/Time Associated Diagnosis Comments SCAN - LABS 08/18/2024 TRANSTHORACIC ECHO (TTE) COMPLETE W DOPPLER/CF WO CONTRAST Routine 08/06/2024 2:36 PM CDT Nonrheumatic mitral valve regurgitation Nonrheumatic tricuspid valve regurgitation from Last 3 Months Results * SCAN - LABS (08/18/2024) us Provider Scanning Final Result * TRANSTHORACIC ECHO (TTE) COMPLETE W DOPPLER/CF WO CONTRAST (08/06/2024 2:36 PM CDT) EF Mod BP 52 % CONS SCIMAGE Anatomical Region Laterality Modality Ultrasound 08/06/2024 1:53 PM CDT Narrative 08/06/2024 3:[address] [facility] [address], [address], [place] [address] P:[phone] P:[phone] Echocardiographic Report Patient Name: LORRAINE CUEVA J [...] FINDINGS: Interpretation Site: Exam was interpreted at [facility]. Left Ventricle: Normal left ventricular systolic [...] fibrillation. Electronically Signed By: Dr. Nedra Burns [facility] 08/06/2024 3:19:51 PM CDT Procedure Note Nedra Burns MD - 08/06/2024 [facility] [address], [address], [place] [address] P:[phone] P:[phone] Echocardiographic Report Patient Name: LORRAINE CUEVA J [...] FINDINGS: Interpretation Site: Exam was interpreted at [facility]. Left Ventricle: Normal left ventricular systolic [...] fibrillation. Electronically Signed By: Dr. Nedra Burns [facility] 08/06/2024 3:19:51 PM CDT [facility] Ludin Jimenez MD CV ECHO PROCEDURES Kylie l Result from Last 3 Months Insurance MEDICARE MEDICARE [facility] MEDICARE SUPPLEMENT MEDICARE [facility] MEDICARE SUPPLEMENT Advance Directives For more information, please contact: [phone] * Full Code (Latest Code Status on File) Date Activated Date Inactivated Comments 05/13/2024 8:42 PM 05/27/2024 11:27 PM Care Teams Perinatal Breastfeeding Assistant Relationship Specialty Start Date End Date Meagan Yusuf MD PCP - General Family Medicine 05/22/23 Annemarie Lea MD [address] [place] [address] Consulting Physician Otolaryngology 05/27/24 Margy Walker MD PhD [address] [place] [address] Consulting Physician Plastic Surgery 05/27/24 Geraldine Barbosa NP [address] [place] [address] Nurse Practitioner Neurosurgery 05/27/24
--- OUTSIDE RECORDS SUMMARY | 2024-10-27 10:11 | XMS_ITS | Encounter Summary ---
Author Organization [facility] Address [address] [place] [address] Care Team Providers Care Health Information Tech Name Role Phone Juan David Yusuf MD Primary Care Provider [phone] Encounter Details Date Type Department Care Team (Late st Contact Info) Description 07/14/1999 Outpatient Historical [facility] Isatu Grant MD Social History Tobacco Use Types Packs/Day Years Used Date Smoking Tobacco: Never Assessed Comments Unknown Sex and Gender Information Value Date Recorded Sex Assigned at Not on file Legal Sex Female 3:33 AM SENIOR LINUX ENGINEER Gender Identity Not on file Sexual Orientation Not on file documented as of this encounter Plan of Treatment Not on file documented as of this encounter Visit Diagnoses Not on filedocumented in this encounter Care Teams Health Information Tech Relationship Specialty Start Date End Date Juan David Yusuf MD PCP - General Family Practice 01/14/18 documented as of this encounter
--- OUTSIDE RECORDS SUMMARY | 2024-10-27 10:11 | XMS_ITS | Clinical Summary ---
Author Organization [facility] Address [address] [place] [address] Care Team Providers Care Coin Teller Name Role Phone Meagan Yusuf MD Primary Care Provider + Annemarie Lea MD Unavailable [phone] Margy Walker MD PhD Unavailable [phone] Geraldine Barbosa NP Unavailable [phone] Allergies Active Allergy Reactions Criticality Noted Date [...] 2 (two) times a day 5 Active bumetanide (BUMEX) 2 mg tablet Take 1 tablet (2 mg total) by mouth daily 30 tablet 3 5 Active metOLazone (ZAROXOLYN) 2.5 mg tablet Take 1 tablet (2.5 mg total) by mouth daily 30 tablet 11 5 07/23/19 26 Active fluticasone-ume clidin-vilanter (TRELEGY ELLIPTA) 200-62.5-25 mcg inhaler Inhale 1 puff every day by inhalation route. 5 Active Active Problems Problem Noted Date Diagnosed [...] 05/23/2024 Assessment & Plan (05/26/2024 9:50 AM MARKETING SERVICES VICE PRESIDENT): #COPD #TRAVIS, chronic #Chronic hypoxic respiratory failure [...] 05/23/2024 Assessment & Plan (05/27/2024 11:52 AM MARKETING SERVICES VICE PRESIDENT): 3/ tx out ICU, PT/OT - 05/25: awaiting repeat swallow evaluation, calorie counts - 05/26: Continue Tfs at nightly, Calorie counts. Wean O2 back to home 4L. Not medically ready for discharge. 05/27: Patient is medically stable for discharge, SW/CM updated. Discharge pending facility bed availability Treatment note 05/14 [x] Feeding difficulties 05/22/2024 Assessment & Plan (05/27/2024 11:55 AM MARKETING SERVICES VICE PRESIDENT): SBFT placed by ENT 05/21 TFs commenced [...] NPO, resumed tube feeds, ordered for repeat BLAST SETTER evaluation. Recommend up in chair for all meals and 1:1 assistance during meals pending BLAST SETTER evaluation. Discussed with patient and nurse to inform provider of any change in clinical exam or vital signs. 05/25: repeat Swallow- regular diet, regular thin liquids assistance with meals, calorie counts ordered, cycle tube feeding over PM MBS (05/27): swallow mechanism is normal Respiratory distress 05/20/2024 Assessment & Plan (05/27/2024 11:55 AM MARKETING SERVICES VICE PRESIDENT): Transferred to SICU 05/18 ON after respiratory [...] 05/14/2024 Assessment & Plan (05/15/2024 2:15 PM MARKETING SERVICES VICE PRESIDENT): - Orthostatic vital signs (05/14): negative - [...] 05/14/2024 Assessment & Plan (05/14/2024 12:48 PM MARKETING SERVICES VICE PRESIDENT): - Tylenol 1g q6h - Gabapentin 300mg TID - Robaxin 500mg TID PRN - Oxycodone 5mg q4h PRN Closed fracture of distal end of left radius Assessment & Plan (05/27/2024 11:55 AM MARKETING SERVICES VICE PRESIDENT): - Plastics consult - L hand/wrist xr [...] 05/14/2024 Assessment & Plan (05/25/2024 11:39 AM MARKETING SERVICES VICE PRESIDENT): - Magnesium (05/14): 1.9mg/dL - 05/14: replete Magnesium 2g IV - Magnesium (05/15): 2.0mg/dL - Magnesium (05/20): 2.2mg/dL - Magnesium (05/25): 2.0mg/dL - continue to trend Magnesium Fall, initial encounter 05/13/2024 Assessment & Plan (05/15/2024 10:18 AM MARKETING SERVICES VICE PRESIDENT): Syncopal workup given unclear mechanism (TTE, carotid [...] months Assessment & Plan (05/27/2024 11:52 AM MARKETING SERVICES VICE PRESIDENT): Ophtho c/s ---HOB elevation, open-mouth sneezing, no [...] to be tasked with Dr Lea's team. [phone] Antibiotics Ancef 7day (complete) Intraparenchymal hematoma of brain due to trauma 05/13/2024 Assessment & Plan (05/23/2024 4:06 PM MARKETING SERVICES VICE PRESIDENT): - Neurosurgery consult - Repeat head CT [...] 05/13/2024 Assessment & Plan (05/25/2024 11:36 AM MARKETING SERVICES VICE PRESIDENT): - Hold Xarelto - home diltiazem 180 [...] 05/13/2024 Assessment & Plan (05/24/2024 3:43 PM MARKETING SERVICES VICE PRESIDENT): Grade II diastolic dysfunction -EF 70%, moderate pulmonary hypertension (09/2021) 3: resumed home diltiazem. CTM BP and resume home lasix when appropriate. Restless leg syndrome 05/13/2024 Assessment & Plan (05/13/2024 2:32 PM MARKETING SERVICES VICE PRESIDENT): - Continue home ropinrole and pramipexole, gabapentin Mood disorder 05/13/2024 Assessment & Plan (05/13/2024 2:37 PM MARKETING SERVICES VICE PRESIDENT): Continue home zoloft Heart failure with mildly re duced ejection fraction (HFmrEF) 01/15/2024 Assessment & Plan (05/27/2024 11:57 AM MARKETING SERVICES VICE PRESIDENT): #HTN, chronic #HFrEF, chronic #Severe MR #Severe TI #Severe pulmonary hypertension - TTEs as above - Home O2 4L - Follows with [facility] Cardiology - Home Diltiazem, Entresto, Lasix (1/2 dose) and metoprolol continued Persistent atrial fibrillation 02/20/2022 Noncompliance with medicatio n treatment due to intermittent use of medication 12/18/2021 Morbid (severe) obesity due to excess calories 0 07/05/2021 Labile hypertension 03/23/2021 Hypotension due to drugs 03/23/2021 Coronary artery disease invo lving k[place] coronary artery of [place] heart without angina pectoris 02/10/2021 Mixed hyperlipidemia 02/10/2021 Chronic obstructive pulmonary disease 02/10/2021 Chronic respiratory failure with hypoxia 021 TRAVIS on CPAP 02/10/2021 Frequent falls 02/10/2021 Resolved Problems Problem Noted Date Diagnosed Date Resolved Date COPD (chronic obstructive pulmonary disease) 05/23/2024 Assessment & Plan (05/13/2024 2:35 PM MARKETING SERVICES VICE PRESIDENT): - home meds: albuterol, ipratopium-albuterol Discharge planning issues 05/13/2024 Assessment & Plan (05/18/2024 2:27 PM MARKETING SERVICES VICE PRESIDENT): - 05/14: orthostatic vital signs pending, syncope [...] Description 09/01/2024 11:00 AM CDT Office Visit [facility] Cardiology [address] [facility] [address] [place] [id number] Allie Contreras NP Persistent atrial fibrillation (HCC) (Primary Dx); Frequent falls; Intraparenchymal hematoma of brain, with unknown loss of consciousness status, unspecified laterality, subsequent encounter; Nonrheumatic mitral valve regurgitation; Nonrheumatic tricuspid valve regurgitation; Chronic HFrEF (heart failure with reduced ejection fraction) (HCC) 08/18/2024 Orders Only [facility] Health Information Management [address] [place] [address] Scanning, Provider 08/07/2024 Results Follow-Up [facility] Cardiology [address] [place] [address] Cinda Jimenez MD Transthoracic Echo (TTE) Complete W Doppler/CF 08/06/2024 2:00 PM CDT Ancillary Procedure [facility] Cardiology at [address] [place] [address] Nonrheumatic mitral valve regurgitation; Nonrheumatic tricuspid valve regurgitation from Last 3 Months Immunizations Immunization Administration [...] on file Legal Sex Female 4:29 PM MARKETING SERVICES VICE PRESIDENT Gender Identity Not on file Sexual Orientation Not on file Obstetrics History Last Filed Vital Signs Vital Sign Reading Time Taken Comments Blood Pressure 104/74 09/01/2024 11:18 AM CDT Pulse 74 09/01/2024 11:18 AM CDT Temperature 37.1 C (98.8 F) 05/27/2024 3:28 PM MARKETING SERVICES VICE PRESIDENT Respiratory Rate 20 05/27/2024 11:49 AM MARKETING SERVICES VICE PRESIDENT Oxygen Saturation 99% 09/01/2024 11:18 AM CDT Inhaled Oxygen Concentration - - Weight 92.1 kg (203 lb) 09/01/2024 11:18 AM CDT Height 165.1 cm (5' 5) 09/01/2024 11:18 AM CDT Body Mass Index 33.78 09/01/2024 11:18 AM CDT Plan of Treatment Health Maintenance Due Date Last Done Comments Depression Screening 1945 Hepatitis C Screening 1945 Osteoporosis Screening-Bone Density Scan 1945 Hepatitis B Screening 12/21/1965 Well Visit 65+ 12/21/2012 Zoster Vaccine (2 of 3) 04/04/2015 02/07/2015 Covid-19 Vaccine (3 - 2023-2 5 season) 2023 06/15/2020, 05/24/2020 Influenza Vaccine (#1) 2024 , 03/05/2019, 01/28/2018, Additional history exists Fall Risk Assessment 05/27/2025 05/27/2024 DTaP/Tdap/Td Vaccine (3 - Td or Tdap) 05/13/2034 05/13/2024, 12/15/2019 Pneumococcal vaccine 65+ Completed 05/08/2018, 12/24 Medical Devices Implanted Type Area Director Data Processing Device Identifier Shelf Expiration Date Model / Serial / Lot Implantech Sheeting Silastic Non Reinforced Alliedsil [id number] Silicone 23-700-40 - [id number] Implanted:Qty: 1 on 05/19/2024 by Annemarie Lea MD at [facility] Other - see comments Right: Face Implantech 07/03/2028-700- 40 / / [place] Craniomaxillofacial Craniomaxillofacial Right 3d Large Implant Orbital Medpor Titan [id number] - [id number] Implanted:Qty: 1 on 05/19/2024 by Annemarie Lea MD at [facility] Other - see comments Right: Face [place] Craniomaxillofacial 08/19/2032 [id number] / / Luis Carlos Craniomaxillofacial 1.2mm 4mm Self Drill Axial Stability Lower Profile Screw Bone 56-68716 - [id number] Implanted:Qty: 1 on 05/19/2024 by Annemarie Lea MD at [facility] Other - see comments Right: Face [place] Craniomaxillofacial 56-1290 4 / / Medartis Inc Plt 2.5 Adaptive Ii Trilock Dist Rad Vol L 10h Narrow T2.0 A-4750.101 - [id number] Implanted:Qty: 1 on 05/18/2024 by Margy Walker MD PhD at [facility] Left: Wrist Medartis Inc A-4750. 101 / / Medartis Inc 2.5mm 18mm Lock Cortical Screw Bone A-5750.18 - [id number] Implanted:Qty: 1 on 05/18/2024 by Margy Walker MD PhD at [facility] Left: Wrist [employer] Inc A-5750. 18 / / Medartis Inc 2.5mm 22mm Lock Cortical Screw Bone A-5750.22 - [id number] Implanted:Qty: 2 on 05/18/2024 by Margy Walker MD PhD at [facility] Left: Wrist Medart[employer] Inc A-5750. 22 / / Medartis Inc 2.5mm 20mm Lock Cortical Screw Bone A-5750.20 - [id number] Implanted:Qty: 3 on 05/18/2024 by Margy Walker MD PhD at [facility] Left: Wrist Medartis Inc A-5750. 20 / / Medartis Inc Aptus 2.5mm 14mm Lock Cortical Screw Bone A-5750.14 - [id number] Implanted:Qty: 2 on 05/18/2024 by Margy Walker MD PhD at [facility] Left: Wrist Medartis Inc A-5750. 14 / / Medartis Inc Aptus 2.5mm 14mm Cortical Screw Bone A-5700.14 - [id number] Implanted:Qty: 1 on 05/18/2024 by Margy Walker MD PhD at [facility] Left: Wrist Medartis Inc A-5700. 14 / / Medartis Inc 2.5mm 12mm Lock Cortical Screw Bone A-5750.12 - [id number] Implanted:Qty: 1 on 05/18/2024 by Margy Walker MD PhD at [facility] Left: Wrist Medart[employer] Inc A-5750. 12 / / Explanted Type Area Director Data Processing Device Identifier Shelf Expiration Date Model / Serial / Lot Medartis Inc Aptus 2.5mm 16mm Cortical Screw Bone A-5700.16 - [id number] Explanted:Qty: 1 on 05/18/2024 by Margy Walker MD PhD at [facility] Left: Wrist Medartis Inc A-5700 .16 / / Medartis Inc 2.5mm 18mm Lock Cortical Screw Bone A-5750.18 - [id number] Explanted:Qty: 1 on 05/18/2024 at [facility] Left: Wrist Medartis Inc A-5750 .18 [...] PM CDT Narrative 08/06/2024 3:20 PM CDT [facility] Cardiology [address], [address], [place] [address] P:[phone] P:[phone] Echocardiographic Report Patient Name: LORRAINE CUEVA J [...] FINDINGS: Interpretation Site: Exam was interpreted at [facility]. Left Ventricle: Normal left ventricular systolic [...] fibrillation. Electronically Signed By: Dr. Nedra Burns [facility] 08/06/2024 3:19:51 PM CDT Procedure Note Nedra Burns MD - 08/06/2024 [facility] Cardiology [address], [address], [place] [address] P:[phone] P:[phone] Echocardiographic Report Patient Name: LORRAINE CUEVA J [...] FINDINGS: Interpretation Site: Exam was interpreted at [facility]. Left Ventricle: Normal left ventricular systolic [...] fibrillation. Electronically Signed By: Dr. Nedra Burns [facility] 08/06/2024 3:19:51 PM CDT [facility] Ludin Jimenez MD CV ECHO PROCEDURES Kylie l Result from Last 3 Months Insurance MEDICARE MEDICARE [facility] MEDICARE SUPPLEMENT MEDICARE [facility] MEDICARE SUPPLEMENT Advance Directives For more information, please contact: [phone] * Full Code (Latest Code Status on File) Date Activated Date Inactivated Comments 05/13/2024 8:42 PM 05/27/2024 11:27 PM Care Teams Coin Teller Relationship Specialty Start Date End Date Meagan Yusuf MD PCP - General Family Medicine 05/22/23 Annemarie Lea MD [address] [place] [address] Consulting Physician Otolaryngology 05/27/24 Margy Walker MD PhD [address] [place] [address] Consulting Physician Plastic Surgery 05/27/24 Geraldine Barbosa NP [address] [place] [address] Nurse Practitioner Neurosurgery 05/27/24
--- OUTSIDE RECORDS SUMMARY | 2024-10-27 10:11 | XMS_ITS | Encounter Summary ---
Author Organization [employer] Address [address] [place] [address] Care Team Providers Care Tape Fastener Machine Operator Name Role Phone Juan David Yusuf MD Primary Care Provider [phone] Encounter Details Date Type Department Care Team (Late st Contact Info) Description 02/02/1999 Outpatient Historical [facility] Isatu Grant MD Social History Tobacco Use Types Packs/Day Years Used Date Smoking Tobacco: Never Assessed Comments Unknown Sex and Gender Information Value Date Recorded Sex Assigned at Not on file Legal Sex Female 3:33 AM REGIONAL PRODUCTION MANAGER Gender Identity Not on file Sexual Orientation Not on file documented as of this encounter Plan of Treatment Not on file documented as of this encounter Visit Diagnoses Not on filedocumented in this encounter Care Teams Tape Fastener Machine Operator Relationship Specialty Start Date End Date Juan David Yusuf MD PCP - General Family Practice 01/14/18 documented as of this encounter
--- OUTSIDE RECORDS SUMMARY | 2024-10-27 10:11 | XMS_ITS | Encounter Summary ---
Author Organization [facility] Healthcare Address [address] [place] [address] Care Team Providers Care Html Web Developer Name Role Phone Meagan Yusuf MD Primary Care Provider + Annemarie Lea MD Unavailable [phone] Margy Walker MD PhD Unavailable [phone] Geraldine Barbosa U.S. REPRESENTATIVE Unavailable [phone] Encounter Details Date Type Department Care Team (Late st Contact Info) Description 11/02/2023 Orders Only [facility] Information Management [address] [place] [address] Scanning, Provider Social History Tobacco Use Types Packs/Day Years Used Date Smoking Tobacco: Former Cigarettes Q uit: 2010 Smokeless Tobacco: Never Comments Unknown Sex and Gender Information Value Date Recorded Sex Assigned at Not on file Legal Sex Female 4:29 PM CAMERA PROTOTYPING ENGINEER Gender Identity Not on file Sexual Orientation Not on file documented as of this encounter Plan of Treatment Not on file documented as of this encounter Procedures Procedure Name Priority Date/Time Associated Diagnosis Comments SCAN - LABS 11/02/2023 documented in this encounter Results * SCAN - LABS (11/02/2023) us Provider Scanning Final Result documented in this encounter Visit Diagnoses Not on filedocumented in this encounter Care Teams Html Web Developer Relationship Specialty Start Date End Date Meagan Yusuf MD PCP - General Family Medicine 05/22/23 Annemarie Lea MD [address] [place] [address] Consulting Physician Otolaryngology 05/27/24 Margy Walker MD PhD [address] [place] [address] Consulting Physician Plastic Surgery 05/27/24 Geraldine Barbosa NP [address] [place], [place] [id number] Nurse Practitioner Neurosurgery 05/27/24 documented as of this encounter
--- OUTSIDE RECORDS SUMMARY | 2024-10-27 10:11 | XMS_ITS | Encounter Summary ---
Author Organization [employer] Address 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
--- OUTSIDE RECORDS SUMMARY | 2024-10-27 10:11 | XMS_ITS | Encounter Summary ---
Author Organization [facility] Healthcare Address [address] [place] [address] Care Team Providers Care Valve Tester Name Role Phone Meagan Yusuf MD Primary Care Provider + Annemarie Lea MD Unavailable [phone] Margy Walker MD PhD Unavailable [phone] Geraldine Barbosa NP Unavailable [phone] Encounter Details Date Type Department Care Team (Late st Contact Info) Description 11/01/2023 Orders Only [facility] Health Information Management [address] [place] [address] Scanning, Provider Social History Tobacco Use Types Packs/Day Years Used Date Smoking Tobacco: Former Cigarettes Q uit: 2010 Smokeless Tobacco: Never Comments Unknown Sex and Gender Information Value Date Recorded Sex Assigned at Not on file Legal Sex Female 4:29 PM 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 Gender Identity Not on file Sexual Orientation Not on file documented as of this encounter Plan of Treatment Not on file documented as of this encounter Procedures Procedure Name Priority Date/Time Associated Diagnosis Comments SCAN - RADIOLOGY/IMAGING 11/01/2023 documented in this encounter Results * SCAN - RADIOLOGY/IMAGING (11/01/2023) Anatomical Region Laterality Modality Other us Provider Scanning Edited Result - Final documented in this encounter Visit Diagnoses Not on filedocumented in this encounter Care Teams Valve Tester Relationship Specialty Start Date End Date Meagan Yusuf MD PCP - General Family Medicine 05/22/23 Annemarie Lea MD [address] [place], [place] [id number] Consulting Physician Otolaryngology 05/27/24 Margy Walker MD PhD [address] [place], [place] [phone] Consulting Physician Plastic Surgery 05/27/24 Geraldine Barbosa NP [address] [place], [place] [id number] Nurse Practitioner Neurosurgery 05/27/24 documented as of this encounter
--- OUTSIDE RECORDS SUMMARY | 2024-10-27 10:12 | XMS_ITS | Clinical Summary ---
Author Organization [facility] Address [address] [place] [address] Phone Care Team Providers Care Nuclear Power Reactor Operator Name Role Phone Juan David Yusuf MD Primary Care Provider [phone] Allergies Active Allergy Reactions Criticality Noted Date [...] 6 Tablets 42 Tablet 01/30/2018 3:41 PM AUTOMOTIVE DESIGNER 8 Active Active Problems Problem Noted Date [...] on file Legal Sex Female 3:33 AM AUTOMOTIVE DESIGNER Gender Identity Not on file Sexual Orientation Not on file Last Filed Vital Signs Vital Sign Reading Time Taken Comments Blood Pressure 123/62 01/30/2018 12:28 PM AUTOMOTIVE DESIGNER Pulse 74 01/30/2018 12:28 PM AUTOMOTIVE DESIGNER Temperature 36.5 C (97.7 F) 01/30/2018 12:28 PM AUTOMOTIVE DESIGNER Respiratory Rate 10 01/30/2018 12:28 PM AUTOMOTIVE DESIGNER Oxygen Saturation 93% 01/30/2018 12:28 PM AUTOMOTIVE DESIGNER Inhaled Oxygen Concentration - - Weight 116.6 kg (257 lb) 01/28/2018 8:16 AM AUTOMOTIVE DESIGNER Height 167.6 cm (5' 6) 01/28/2018 8:16 AM AUTOMOTIVE DESIGNER Body Mass Index 41.48 01/28/2018 8:16 AM AUTOMOTIVE DESIGNER Plan of Treatment Health Maintenance Due Date Last Done Comments DTAP/TDAP/TD VACCINES (1 - Tdap) 12/21/1966 PNEUMOCOCCAL VACCINE 50+ YEARS (1 of 2 - PCV) 12/21/18 67 ZOSTER VACCINE (1 of 2) 12/21/1997 OSTEOPOROSIS SCREENING 12/21/2012 RSV VACCINE (60+ or ) (1 - 1-dose 75+ series) 12/21/2022 INFLUENZA VACCINE (#1) 2024 01/28/2018 Medical Devices Implanted Type Area Floral Decorator Device Identifier Shelf Expiration Date Model / Serial / Lot Shell Ringlc+ Pc 54mm [id number] - [id number] Implanted:Qty: 1 on 11/08/2016 by Abhinav Quesada MD at [facility] Hip Right: Hip [employer] [id number] 09/27/2026 [id number] / / [id number] Liner Arcomxl Rnglc Sz24 Xl-[id number] - [id number] Implanted:Qty: 1 on 11/08/2016 by Abhinav Quesada MD at [facility] Hip Right: Hip [employer] [id number] 10/01/2020 XL-[id number] / / [id number] Stem Fem Echo Bmtrc Por Red Lat [id number] - [id number] Implanted:Qty: 1 on 11/08/2016 by Abhinav Quesada MD at [facility] Hip Right: Hip [employer] [id number] 04/11/2025 [id number] / / [id number] Head Modular Noskt 36mm -3mm [id number] - [id number] Implanted:Qty: 1 on 11/08/2016 by Abhinav Quesada MD at [facility] Hip Right: Hip [employer] [id number] 09/25/2026 11-156090 / / [id number] Rsp Glenoid Head W Retaining Screw Neutral Sz 32mm Implanted:Qty: 1 on 01/27/2018 by Guerrero Cho MD at [facility] Other Right: Shoulder [employer] 12/05/2023 508-32-10 1 / / [id number] Small Socket Insert 32mm Semi Constrained E Plus Implanted:Qty: 1 on 01/27/2018 by Guerrero Cho MD at [facility] Other Right: Shoulder [employer] 11/29/2022 509-03-03 2 / / [id number] Humeral Stem Small Shell [id number] Implanted:Qty: 1 on 01/27/2018 by Guerrero Cho MD at [facility] Other Right: Shoulder [employer] 11/22/2023 533-10-10 8 / / [id number] Description:All DJ[employer] Surgical shoulder components are processed on requisition,[id number]. Rsp Glenoid Baseplate Implanted:Qty: 1 on 01/27/2018 by Guerrero Cho MD at [facility] Screw Right: Shoulder [employer] [id number] 10/23/2023 508-32-20 4 / / [id number] Rsp Bone Screw Locking Sz 5.0mm 30mm Long Implanted:Qty: 1 on 01/27/2018 by Guerrero Cho MD at [facility] Screw Right: Shoulder [employer] 06/25/2023 506-03- 0 / / [id number] Rsp Bone Screw Locking Sz 5.0mm 22 Mm Long Implanted:Qty: 1 on 01/27/2018 by Guerrero Cho MD at [facility] Screw Right: Shoulder [employer] 08/17/2023 506-12 2 / / [id number] Bone Screw Rsp5.0x26mm Long Implanted:Qty: 1 on 01/27/2018 by Guerrero Cho MD at [facility] Screw Right: Shoulder [employer] 6 / / Rsp Bone Screw- Locking Implanted:Qty: 1 on 01/27/2018 by Guerrero Cho MD at [facility] Right: Shoulder [employer] 11/01/2023 506-03-11 [id number] Insurance MEDICARE PART A AND B BCBS SUPP RX AET[employer] Medicare Part D RX [facility] Medicare Part D Advance Directives For more information, please contact: [phone] Documents on File Type Date Recorded Patient Human Services Program Specialist Expl anation Advance Directive POA 02/04/2018 1:58 [...] 6:44 AM 11/08/2016 7:30 AM Care Teams Nuclear Power Reactor Operator Relationship Specialty Start Date End Date Juan David Yusuf MD PCP - General Family Practice 01/14/18
--- OUTSIDE RECORDS SUMMARY | 2024-10-27 10:12 | XMS_ITS | Patient Health Record ---
Author Organization [employer] Address [address] [place]. [address] [place] [address] Care Team Providers Care Worm Farm Laborer Name Role Phone Juanita BROWN, Stevenson Primary Care Provider Unavailabl e Reason For Referral No Information Plan Of Treatment No Information Insurance Providers Payer Name Payer Address Payer Phone Subscriber Number Group Number Insured Name Patient Relationship to Insured Coverage Start Date Coverage End Date [facility] Choice Plus [id number] [address] [address] [place] [address] [id number] Ping Waller Self - patient is the insured
--- OUTSIDE RECORDS SUMMARY | 2024-10-27 10:12 | XMS_ITS | Encounter Summary ---
Author Organization [facility] Healthcare Address [address] [place] [address] Care Team Providers Care Packing Line Worker Name Role Phone Meagan Yusuf MD Primary Care Provider + Annemarie Lea MD Unavailable [phone] Margy Walker MD PhD Unavailable [phone] Geraldine Barbosa NP Unavailable [phone] Encounter Details Date Type Department Care Team (Late st Contact Info) Description 08/18/2024 Orders Only [facility] Health Information Management [address] [place] [address] Scanning, Provider Social History Tobacco Use [...] on file Legal Sex Female 4:29 PM ALLOPATHIC DOCTOR Gender Identity Not on file Sexual Orientation Not on file documented as of this encounter Plan of Treatment Not on file documented as of this encounter Procedures Procedure Name Priority Date/Time Associated Diagnosis Comments SCAN - LABS 08/18/2024 documented in this encounter Results * SCAN - LABS (08/18/2024) us Provider Scanning Final Result documented in this encounter Visit Diagnoses Not on filedocumented in this encounter Care Teams Packing Line Worker Relationship Specialty Start Date End Date Meagan Yusuf MD PCP - General Family Medicine 05/22/23 Annemarie Lea MD [address] [place] [address] Consulting Physician Otolaryngology 05/27/24 Maryg Walker MD PhD [address] [place] [address] Consulting Physician Plastic Surgery 05/27/24 Geraldine Barbosa NP [address] [place] [address] Nurse Practitioner Neurosurgery 05/27/24 documented as of this encounter
--- OUTSIDE RECORDS SUMMARY | 2024-10-27 10:12 | XMS_ITS ---
Author Name Auto Generated, Auto Generated Organization [facility] Address [address] [place] [address] Phone [phone] Care Team Providers Care Precision Structural Metal Fitter Name Role Phone Camila Spence Unavailable [phone] Georges Emy Unavailable Meagan Turner Unavailable Functional Status No Results Mental Status No Results Allergies and Intolerances Name Onset Date Reaction Severity thiopental (Allergy) SatFeb 06 12:18:00 EST 202 3 penicillin (Allergy) SatFeb 06 12:18:00 EST 202 3 Encounters Program Name Primary Diagnosis Admission Date/Time Dis charge Date/Time [facility] Facility [facility] Unit SatJun 16 10:00:00 EDT [...] Hours for 4 Days Indication: Pneumonia (2 [id number]) SatFeb 06 14:00:00 2022Feb 10 13:59:00 EST [...] 2022 * End Date: * Text: * 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 (12)* Code: * Start Date: SatJun 25 00:00:00 EDT 2024 * End Date: * Text: [id number] Ping receives a therapeutic diet. (12) * [...] EDT 2024 Systolic Blood Pressure 122.00 mm[Hg] [facility] Apr 12 22:04:55 EDT 2024 Diastolic Blood Pressure 80.00 mm[Hg] [facility] 12 22:04:55 EDT 2024 Systolic Blood Pressure 122.00 mm[Hg] [facility] Apr 12 22:04:55 EDT 2024 Diastolic Blood Pressure 80.00 mm[Hg] [facility] Apr 12 22:04:55 EDT 2024 Heart Rate 94.00 /min [facility] Apr 12 22:04 :55 EDT 2024 Heart Rate 94.00 /min [facility] 12 22:04 :55 EDT 2024 Body weight 212.80 [lb_av] [facility] Apr 12 17:09 :01 EDT 2024 Systolic Blood Pressure 119.00 mm[Hg] Sat Apr 12 14:27:00 EDT 2024 Diastolic Blood Pressure 83.00 mm[Hg] [facility] Apr 12 14:27:00 EDT 2024 Heart Rate 98.00 /min [facility] Apr 12 14:27 :00 EDT 2024 Systolic Blood Pressure 114.00 mm[Hg] Sat Apr 12 11:56:23 EDT 2024 Diastolic Blood Pressure 66.00 mm[Hg] [facility] Apr 12 11:56:23 EDT 2024 Pulse Oximetry 93.00 % Sat Apr 12 11:56 :23 EDT 2024 Pulse Oximetry 93.00 % [facility] Apr 12 11:56 :23 EDT 2024 Heart Rate 95.00 /min [facility] Apr 12 11:56 :23 EDT 2024 Body temperature 98.30 [degF] [facility] Apr 12 11:5 6:23 EDT 2024 Respiratory rate 18.00 /min [facility] Apr 12 11:5 6:23 EDT 2024 Systolic Blood Pressure 104.00 mm[Hg] [facility] Apr 12 08:51:15 EDT 2024 Diastolic Blood Pressure 66.00 mm[Hg] [facility] Apr 12 08:51:15 EDT 2024 Systolic Blood Pressure 104.00 mm[Hg] [facility] Apr 12 08:51:15 EDT 2024 Diastolic Blood Pressure 66.00 mm[Hg] [facility] Apr 12 08:51:15 EDT 2024 Heart Rate 95.00 /min [facility] Apr 12 08:51 :15 EDT 2024 Heart Rate 95.00 /min [facility] Jun 12 08:51 :15 EDT 2024 [...] 00:34:04 EDT 2024 Pulse Oximetry 94.00 % [facility] Jun 27 00:34 :04 EDT 2024 Pulse Oximetry 94.00 % [facility] Jun 27 00:34 :04 EDT 2024 Pulse Oximetry 94.00 % [facility] Jun 27 00:34 :04 EDT 2024 Heart Rate 88.00 /min [facility] Jun 27 00:34 :04 EDT 2024 Body temperature 98.20 [degF] [facility] Jun 27 00:3 4:04 EDT 2024 Respiratory rate 18.00 /min [facility] Jun 27 00:3 4:04 EDT 2024 [...] EDT 2024 Systolic Blood Pressure 127.00 mm[Hg] [place] Jun 25 08:57:22 EDT 2024 Diastolic Blood [...]
[2024-10-27 10:41] LABS: Hematocrit 38.7 % (37.0-47.0); Hemoglobin 12.1 g/dL (12.0-15.0); Immature Granulocyte Percent A 0.3 % (0-0.5); Lymphocytes Absolute Auto 0.93 K/mm3 (0.9-3.2); Mean Corpuscular HGB Conc 31.3 g/dl (32-36); Mean Corpuscular Hemoglobin 28.9 pg (26-34); Mean Corpuscular Volume 92.4 fl (80-100); Nucleated Red Blood Cells Absolute Auto 0.000 K/mm3 (0.0-0.012); Nucleated Red Blood Cells Perc 0.0 % (0.0-0.2); Platelet Count Result 198 k/mm3 (150-375); Red Blood Count 4.19 M/mm3 (4.2-5.4); White Blood Count 6.1 K/mm3 (4.5-10.0)
[2024-10-27 11:34] LABS: Alanine Aminotransferase 17 U/L (6-35); Albumin Level 4.3 g/dL (3.5-5.1); Alkaline Phosphatase 65 U/L (38-126); Aspartate Amino Transferase 41 U/L (14-36); Bilirubin,Total 2.0 mg/dL (0.2-1.3); Blood Urea Nitrogen 58 mg/dL (7-17); Calcium 9.5 mg/dL (8.4-10.2); Carbon Dioxide > 40 mmol/L (22-30); Chloride 82 mmol/L (98-107); Cholesterol 191 mg/dL (0-200); Estimated Glomerular Filt Rate 46; Glucose 107 mg/dL (65-110); HDL Direct 55 mg/dL; Potassium 2.7 mmol/L (3.4-5.0); Sodium 134 mmol/L (137-145); Total Protein 7.9 g/dL (6.3-8.2); Triglycerides 83 mg/dL (<150)
[2024-10-27 11:37] LABS: Ferritin 42.90 ng/mL (11.1-264)
[2024-10-27 12:04] LABS: Thyroid Stimulating Hormone 2.150 uIU/mL (0.465-4.680)
[2024-10-27 12:14] LABS: Vitamin B12 > 1000.0 pg/mL (239-931)
== END 2024-10-27 09:46 | disposition home or self-care (01) ==
PROVIDERS: PCP Family Medicine; Visit Provider Family Medicine
DX: I50.22 Chronic systolic (congestive) heart failure (principal); K51.90 Ulcerative colitis, unspecified, without complications; J43.9 Emphysema, unspecified
CPT/HCPCS: 36415; 80053; 80061; 82607; 82728; 84443; 85025

== ENCOUNTER 2024-10-29 10:29 | Outpatient (CLI) | payer MEDICARE, SELFPAY ==
--- OUTSIDE RECORDS SUMMARY | 2024-10-29 10:35 | XMS_ITS | Encounter Summary ---
Author Organization [facility] Healthcare Address [address] [place] [address] Care Team Providers Care Fisheries Inspector Name Role Phone Meagan Yusuf MD Primary Care Provider + Annemarie Lea MD Unavailable [phone] Margy Walker MD PhD Unavailable [phone] Geraldine Barbosa NP Unavailable [phone] Encounter Details Date Type Department Care Team (Late st Contact Info) Description 11/01/2023 Orders Only [facility] Health Information Management [address] [place] [address] Scanning, Provider Social History Tobacco Use Types Packs/Day Years Used Date Smoking Tobacco: Former Cigarettes Q uit: 2010 Smokeless Tobacco: Never Comments Unknown Sex and Gender Information Value Date Recorded Sex Assigned at Not on file 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
--- OUTSIDE RECORDS SUMMARY | 2024-10-29 10:35 | XMS_ITS | Clinical Summary ---
Author Organization [facility] Address [address] [place] [address] Phone Care Team Providers Care Proof Passer Name Role Phone Juan David Yusuf MD Primary Care Provider [phone] Allergies Active Allergy Reactions Criticality Noted Date [...] 6 Tablets 42 Tablet 01/30/2018 3:41 PM DISPLAY FABRICATION SUPERVISOR 8 Active Active Problems Problem Noted Date [...] on file Legal Sex Female 3:33 AM DISPLAY FABRICATION SUPERVISOR Gender Identity Not on file Sexual Orientation Not on file Last Filed Vital Signs Vital Sign Reading Time Taken Comments Blood Pressure 123/62 01/30/2018 12:28 PM DISPLAY FABRICATION SUPERVISOR Pulse 74 01/30/2018 12:28 PM DISPLAY FABRICATION SUPERVISOR Temperature 36.5 C (97.7 F) 01/30/2018 12:28 PM DISPLAY FABRICATION SUPERVISOR Respiratory Rate 10 01/30/2018 12:28 PM DISPLAY FABRICATION SUPERVISOR Oxygen Saturation 93% 01/30/2018 12:28 PM DISPLAY FABRICATION SUPERVISOR Inhaled Oxygen Concentration - - Weight 116.6 kg (257 lb) 01/28/2018 8:16 AM DISPLAY FABRICATION SUPERVISOR Height 167.6 cm (5' 6) 01/28/2018 8:16 AM DISPLAY FABRICATION SUPERVISOR Body Mass Index 41.48 01/28/2018 8:16 AM DISPLAY FABRICATION SUPERVISOR Plan of Treatment Health Maintenance Due Date Last Done Comments DTAP/TDAP/TD VACCINES (1 - Tdap) 12/21/1966 PNEUMOCOCCAL VACCINE 50+ YEARS (1 of 2 - PCV) 12/21/18 67 ZOSTER VACCINE (1 of 2) 12/21/1997 OSTEOPOROSIS SCREENING 12/21/2012 RSV VACCINE (60+ or ) (1 - 1-dose 75+ series) 12/21/2022 INFLUENZA VACCINE (#1) 2024 01/28/2018 Medical Devices Implanted Type Area Duck Bill Operator Device Identifier Shelf Expiration Date Model / Serial / Lot Shell Ringlc+ Pc 54mm [id number] - [id number] Implanted:Qty: 1 on 11/08/2016 by Abhinav Quesada MD at [facility] Hip Right: Hip [employer] [id number] 09/27/2026 [id number] / / [id number] Liner Arcomxl Rnglc Sz24 [id number] - [id number] Implanted:Qty: 1 on 11/08/2016 by Abhinav Quesada MD at [facility] Hip Right: Hip [employer] [id number] 10/01/2020 [id number] / / [id number] Stem Fem Echo Bmtrc Por Red Lat [id number] - [id number] Implanted:Qty: 1 on 11/08/2016 by Abhinav Quesada MD at [facility] Hip Right: Hip [employer] [id number] 04/11/2025 [id number] / / [id number] Head Modular Noskt 36mm -3mm [id number] - [id number] Implanted:Qty: 1 on 11/08/2016 by Abhinav Quesada MD at [facility] Hip Right: Hip [employer] [id number] 09/25/2026 [id number] / / [id number] Rsp Glenoid Head W Retaining Screw Neutral Sz 32mm Implanted:Qty: 1 on 01/27/2018 by Guerrero Cho MD at [facility] Other Right: Shoulder [employer] 12/05/2023 508-32-10 1 / / [id number] Small Socket Insert 32mm Semi Constrained E Plus Implanted:Qty: 1 on 01/27/2018 by Guerrero Cho MD at [facility] Other Right: Shoulder [employer] 11/29/2022 509-03-03 2 / / [id number] Humeral Stem Small Shell [id number] Implanted:Qty: 1 on 01/27/2018 by Guerrero Cho MD at [facility] Other Right: Shoulder [employer] 11/22/2023 533-10-10 8 / / [id number] Description:All [employer] Surgical shoulder components are processed on requisition,[id number]. Rsp Glenoid Baseplate Implanted:Qty: 1 on 01/27/2018 by Guerrero Cho MD at [facility] Screw Right: Shoulder [employer] [id number] 10/23/2023 508-32-20 4 / / [id number] Rsp Bone Screw Locking Sz 5.0mm 30mm Long Implanted:Qty: 1 on 01/27/2018 by Guerrero Cho MD at [facility] Screw Right: Shoulder [employer] 06/25/2023 506-03- 0 / / [id number] Rsp Bone Screw Locking Sz 5.0mm 22 Mm Long Implanted:Qty: 1 on 01/27/2018 by Guerrero Cho MD at [facility] Screw Right: Shoulder [employer] 08/17/2023 506-12 2 / / [id number] Bone Screw Rsp5.0x26mm Long Implanted:Qty: 1 on 01/27/2018 by Guerrero Cho MD at [facility] Screw Right: Shoulder [employer] 6 / / Rsp Bone Screw- Locking Implanted:Qty: 1 on 01/27/2018 by Guerrero Cho MD at [facility] Right: Shoulder [employer] 11/01/2023 506-03-11 [id number] Insurance MEDICARE PART A AND B BCBS SUPP RX AETNA Medicare Part D RX [facility] Medicare Part D Advance Directives For more information, please contact: [phone] Documents on File Type Date Recorded 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
--- OUTSIDE RECORDS SUMMARY | 2024-10-29 10:35 | XMS_ITS | Encounter Summary ---
Author Organization [facility] Address 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
--- OUTSIDE RECORDS SUMMARY | 2024-10-29 10:35 | XMS_ITS | Encounter Summary ---
Author Organization [facility] Healthcare Address [address] [place] [address] Care Team Providers Care Escalation Engineer Name Role Phone Meagan Yusuf MD Primary Care Provider + Annemarie Lea MD Unavailable [phone] Margy Walker MD PhD Unavailable [phone] Geraldine Barbosa WATER LEAK REPAIRER Unavailable [phone] Encounter Details Date Type Department Care Team (Late st Contact Info) Description 11/02/2023 Orders Only [facility] Health Information Management [address] [place] [address] Scanning, Provider Social History Tobacco Use Types Packs/Day Years Used Date Smoking Tobacco: Former Cigarettes Q uit: 2010 Smokeless Tobacco: Never Comments Unknown Sex and Gender Information Value Date Recorded Sex Assigned at Not on file 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
--- OUTSIDE RECORDS SUMMARY | 2024-10-29 10:35 | XMS_ITS | Encounter Summary ---
Author Organization [facility] Address 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
--- OUTSIDE RECORDS SUMMARY | 2024-10-29 10:35 | XMS_ITS | Patient Health Record ---
Author Organization [facility] Address [address] [place]. [address] [place] [address] Care Team Providers Care Photographic Intelligence Officer Name Role Phone Juanita BROWN, [place] Primary Care Provider Unavailabl e Reason For Referral No Information Plan Of Treatment No Information Insurance Providers Payer Name Payer Address Payer Phone Subscriber Number Group Number Insured Name Patient Relationship to Insured Coverage Start Date Coverage End Date [facility] Choice Plus [id number] [address] [address] [place] [phone] [id number] Ping Waller Self - patient is the insured
--- OUTSIDE RECORDS SUMMARY | 2024-10-29 10:35 | XMS_ITS | Clinical Summary ---
Author Organization [facility] Address [address] [place] [address] Care Team Providers Care Vertical Contour Band Saw Operator Name Role Phone Meagan Yusuf MD Primary Care Provider + Annemarie Lea MD Unavailable [phone] Margy Walker MD PhD Unavailable [phone] Geraldine Barbosa NP Unavailable [phone] Allergies Active Allergy Reactions Criticality Noted Date [...] (three) times a day 11/15/19 24 Active cyanocobalamin (Vitamin B-12) 1,000 mcg [...] daily 45 tablet 1 01/15/20 24 Active acetaminophen 500 mg capsule Take 2 capsules (1,000 mg total) by mouth every 6 (six) hours 05/28/19 25 Active polyethylene glycol (MIRALAX) 17 gram/dose bulk powderIndicati ons:constipati on Take 17 g by mouth daily 05/28/19 25 Active senna-docusate (PERICOLACE) 8.6-50 mg Take 2 tablets by mouth 2 (two) times a day 05/28/19 25 Active metOLazone (ZAROXOLYN) 2.5 mg tablet Take 1 tablet (2.5 mg total) by mouth daily 30 tablet 11 07/23/19 25 026 Active fluticasone-um eclidin-vilant er (TRELEGY ELLIPTA) 200-62.5-25 mcg inhaler Inhale 1 puff every day by inhalation route. 07/07/19 25 Active bumetanide (BUMEX) 2 mg tablet TAKE 1 TABLET(2 MG) BY MOUTH DAILY 30 tablet 5 10/29/19 25 Active bumetanide (BUMEX) 2 mg tablet Take 1 tablet (2 mg total) by mouth daily 30 tablet 3 07/23/19 25 025 Discontinued Active Problems Problem Noted Date Diagnosed Date [...] 05/23/2024 Assessment & Plan (05/26/2024 9:50 AM DIMMER BOARD OPERATOR): #COPD #TRAVIS, chronic #Chronic hypoxic respiratory [...] 05/23/2024 Assessment & Plan (05/27/2024 11:52 AM DIMMER BOARD OPERATOR): 05/23 tx out ICU, PT/OT - 05/25: awaiting repeat swallow evaluation, calorie counts - 05/26: Continue Tfs at nightly, Calorie counts. Wean O2 back to home 4L. Not medically ready for discharge. 05/27: Patient is medically stable for discharge, SW/CM updated. Discharge pending facility bed availability Treatment note 05/14 [x] Feeding difficulties 05/22/2024 Assessment & Plan (05/27/2024 11:55 AM DIMMER BOARD OPERATOR): SBFT placed by ENT 05/21 TFs [...] NPO, resumed tube feeds, ordered for repeat OCCUPATIONAL SAFETY AND HEALTH MANAGER evaluation. Recommend up in chair for all meals and 1:1 assistance during meals pending OCCUPATIONAL SAFETY AND HEALTH MANAGER evaluation. Discussed with patient and nurse to inform provider of any change in clinical exam or vital signs. 05/25: repeat Swallow- regular diet, regular thin liquids assistance with meals, calorie counts ordered, cycle tube feeding over PM MBS (05/27): swallow mechanism is normal Respiratory distress 05/20/2024 Assessment & Plan (05/27/2024 11:55 AM DIMMER BOARD OPERATOR): Transferred to SICU 05/18 ON after [...] 05/14/2024 Assessment & Plan (05/15/2024 2:15 PM DIMMER BOARD OPERATOR): - Orthostatic vital signs (05/14): negative [...] 05/14/2024 Assessment & Plan (05/14/2024 12:48 PM DIMMER BOARD OPERATOR): - Tylenol 1g q6h - Gabapentin 300mg TID - Robaxin 500mg TID PRN - Oxycodone 5mg q4h PRN Closed fracture of distal end of left radius Assessment & Plan (05/27/2024 11:55 AM DIMMER BOARD OPERATOR): - Plastics consult - L hand/wrist [...] 05/14/2024 Assessment & Plan (05/25/2024 11:39 AM DIMMER BOARD OPERATOR): - Magnesium (05/14): 1.9mg/dL - 05/14: replete Magnesium 2g IV - Magnesium (05/15): 2.0mg/dL - Magnesium (05/20): 2.2mg/dL - Magnesium (05/25): 2.0mg/dL - continue to trend Magnesium Fall, initial encounter 05/13/2024 Assessment & Plan (05/15/2024 10:18 AM DIMMER BOARD OPERATOR): Syncopal workup given unclear mechanism (TTE, [...] months Assessment & Plan (05/27/2024 11:52 AM DIMMER BOARD OPERATOR): Ophtho c/s ---HOB elevation, open-mouth sneezing, [...] to be tasked with Dr Lea's team. [phone] Antibiotics Ancef 7day (complete) Intraparenchymal hematoma of brain due to trauma 05/13/2024 Assessment & Plan (05/23/2024 4:06 PM DIMMER BOARD OPERATOR): - Neurosurgery consult - Repeat head [...] 05/13/2024 Assessment & Plan (05/25/2024 11:36 AM DIMMER BOARD OPERATOR): - Hold Xarelto - home diltiazem [...] 05/13/2024 Assessment & Plan (05/24/2024 3:43 PM DIMMER BOARD OPERATOR): Grade II diastolic dysfunction -EF 70%, moderate pulmonary hypertension (09/2021) 3: resumed home diltiazem. CTM BP and resume home lasix when appropriate. Restless leg syndrome 05/13/2024 Assessment & Plan (05/13/2024 2:32 PM DIMMER BOARD OPERATOR): - Continue home ropinrole and pramipexole, gabapentin Mood disorder 05/13/2024 Assessment & Plan (05/13/2024 2:37 PM DIMMER BOARD OPERATOR): Continue home zoloft Heart failure with mildly re duced ejection fraction (HFmrEF) 01/15/2024 Assessment & Plan (05/27/2024 11:57 AM DIMMER BOARD OPERATOR): #HTN, chronic #HFrEF, chronic #Severe MR #Severe TI #Severe pulmonary hypertension - TTEs as above - Home O2 4L - Follows with [facility] - Home Diltiazem, Entresto, Lasix (1/2 dose) and metoprolol continued Persistent atrial fibrillation 02/20/2022 Noncompliance with medicatio n treatment due to intermittent use of medication 12/18/2021 Morbid (severe) obesity due to excess calories 0 07/05/2021 Labile hypertension 03/23/2021 Hypotension due to drugs 03/23/2021 Coronary artery disease invo lving [place] coronary artery of [place] heart without angina pectoris 02/10/2021 Mixed hyperlipidemia 02/10/2021 Chronic obstructive pulmonary disease 02/10/2021 Chronic respiratory failure with hypoxia 021 TRAVIS on CPAP 02/10/2021 Frequent falls 02/10/2021 Resolved Problems Problem Noted Date Diagnosed Date Resolved Date COPD (chronic obstructive pulmonary disease) 05/23/2024 Assessment & Plan (05/13/2024 2:35 PM DIMMER BOARD OPERATOR): - home meds: albuterol, ipratopium-albuterol Discharge planning issues 05/13/2024 Assessment & Plan (05/18/2024 2:27 PM DIMMER BOARD OPERATOR): - 05/14: orthostatic vital signs pending, [...] Description 09/01/2024 11:00 AM CDT Office Visit [facility] Cardiology [address] [facility] [address] [place] [address] Allie Contreras NP Persistent atrial fibrillation (HCC) (Primary Dx); Frequent falls; Intraparenchymal hematoma of brain, with unknown loss of consciousness status, unspecified laterality, subsequent encounter; Nonrheumatic mitral valve regurgitation; Nonrheumatic tricuspid valve regurgitation; Chronic HFrEF (heart failure with reduced ejection fraction) (HCC) 08/18/2024 Orders Only [facility] Health Information Management [address] [place] [address] Scanning, Provider 08/07/2024 Results Follow-Up [facility] Cardiology [address] [place] [address] Cinda Jimenez MD Transthoracic Echo (TTE) Complete W Doppler/CF 08/06/2024 2:00 PM CDT Ancillary Procedure [facility] at [address] [place] [address] Nonrheumatic mitral valve regurgitation; Nonrheumatic tricuspid valve [...] on file Legal Sex Female 4:29 PM DIMMER BOARD OPERATOR Gender Identity Not on file Sexual Orientation Not on file Obstetrics History Last Filed Vital Signs Vital Sign Reading Time Taken Comments Blood Pressure 104/74 09/01/2024 11:18 AM CDT Pulse 74 09/01/2024 11:18 AM CDT Temperature 37.1 C (98.8 F) 05/27/2024 3:28 PM DIMMER BOARD OPERATOR Respiratory Rate 20 05/27/2024 11:49 AM DIMMER BOARD OPERATOR Oxygen Saturation 99% 09/01/2024 11:18 AM CDT [...] 2023 06/15/2020, 05/24/2020 Influenza Vaccine (#1) 2024 0, 03/05/2019, 01/28/2018, Additional history exists Fall Risk Assessment 05/27/2025 05/27/2024 DTaP/Tdap/Td Vaccine (3 - Td or Tdap) 05/13/2034 05/13/2024, 12/15/2019 Pneumococcal vaccine 65+ Completed 05/08/2018, 12/24 Medical Devices Implanted Type Area Automatic Casting Machine Operator Device Identifier Shelf Expiration Date Model / Serial / Lot Implantech Sheeting Silastic Non Reinforced Alliedsil [id number] Silicone 23-700-40 - [id number] Implanted:Qty: 1 on 05/19/2024 by Annemarie Lea MD at [facility] Other - see comments Right: Face Implantech 07/03/2028 23-700- 40 / / [place] Craniomaxillofacial Craniomaxillofacial Right 3d Large Implant Orbital Medpor Titan [id number] - [id number] Implanted:Qty: 1 on 05/19/2024 by Annemarie Lea MD at [facility] Other - see comments Right: Face Luis Carlos Craniomaxillofacial 08/19/2032 [id number] / / Luis Carlos Craniomaxillofacial 1.2mm 4mm Self Drill Axial Stability Lower Profile Screw Bone [id number] - [id number] Implanted:Qty: 1 on 05/19/2024 by Annemarie Lea MD at [facility] Other - see comments Right: Face [place] Craniomaxillofacial 56-9880 4 / / Medartis Inc Plt 2.5 Adaptive Ii Trilock Dist Rad Vol L 10h Narrow T2.0 A-4750.101 - [id number] Implanted:Qty: 1 on 05/18/2024 by Margy Walker MD PhD at [facility] Left: Wrist Medartis Inc A-4750. 101 / / Medartis Inc 2.5mm 18mm Lock Cortical Screw Bone A-5750.18 - [id number] Implanted:Qty: 1 on 05/18/2024 by Margy Walker MD PhD at [facility] Left: Wrist [employer] Inc A-5750. 18 / / Medartis Inc 2.5mm 22mm Lock Cortical Screw Bone A-5750.22 - [id number] Implanted:Qty: 2 on 05/18/2024 by Margy Walker MD PhD at [facility] Left: Wrist [employer] Inc A-5750. 22 / / Medartis Inc 2.5mm 20mm Lock Cortical Screw Bone A-5750.20 - [id number] Implanted:Qty: 3 on 05/18/2024 by Margy Walker MD PhD at [facility] Left: Wrist [employer]artis Inc A-5750. 20 / / Medartis Inc Aptus 2.5mm 14mm Lock Cortical Screw Bone A-5750.14 - [id number] Implanted:Qty: 2 on 05/18/2024 by Margy Walker MD PhD at [facility] Left: Wrist [employer]artis Inc A-5750. 14 / / Medartis Inc Aptus 2.5mm 14mm Cortical Screw Bone A-5700.14 - [id number] Implanted:Qty: 1 on 05/18/2024 by Margy Walker MD PhD at [facility] Left: Wrist Medartis Inc A-5700. 14 / / Medartis Inc 2.5mm 12mm Lock Cortical Screw Bone A-5750.12 - [id number] Implanted:Qty: 1 on 05/18/2024 by Margy Walker MD PhD at [facility] Left: Wrist [employer]artis Inc A-5750. 12 / / Explanted Type Area Automatic Casting Machine Operator Device Identifier Shelf Expiration Date Model / Serial / Lot Medartis Inc Aptus 2.5mm 16mm Cortical Screw Bone A-5700.16 - [id number] Explanted:Qty: 1 on 05/18/2024 by Margy Walker MD PhD at [facility] Left: Wrist Medartis Inc A-5700 .16 / / Medartis Inc 2.5mm 18mm Lock Cortical Screw Bone A-5750.18 - [id number] Explanted:Qty: 1 on 05/18/2024 at [facility] Left: Wrist Medartis Inc A-5750 .18 [...] PM CDT Narrative 08/06/2024 3:20 PM CDT [facility] [address], [address], [place] [address] P:[phone] P:[phone] Echocardiographic Report Patient Name: LORRAINE CUEVA J [...] FINDINGS: Interpretation Site: Exam was interpreted at [facility] [place]. Left Ventricle: Normal left ventricular systolic [...] fibrillation. Electronically Signed By: Dr. Nedra Burns [facility] 08/06/2024 3:19:51 PM CDT Procedure Note Nedra Burns MD - 08/06/2024 [facility] [address], [address], [place] [address] P:[phone] P:[phone] Echocardiographic Report Patient Name: LORRAINE CUEVA J [...] fibrillation. Electronically Signed By: Dr. Nedra Burns [facility] 08/06/2024 3:19:51 PM CDT [facility] Ludin Jimenez MD CV ECHO PROCEDURES Kylie l Result from Last 3 Months Insurance MEDICARE MEDICARE [facility] MEDICARE SUPPLEMENT MEDICARE [facility] Address: [address] [address] [facility] MEDICARE SUPPLEMENT Advance Directives For more information, please contact: [phone] * Full Code (Latest Code Status on File) Date Activated Date Inactivated Comments 05/13/2024 8:42 PM 05/27/2024 11:27 PM Care Teams Vertical Contour Band Saw Operator Relationship Specialty Start Date End Date Meagan Yusuf MD PCP - General Family Medicine 05/22/23 Annemarie Lea MD [address] [place] [address] Consulting Physician Otolaryngology 05/27/24 Margy Walker MD PhD [address] [place] [address] Consulting Physician Plastic Surgery 05/27/24 Geraldine Barbosa NP [address] [place] [address] Nurse Practitioner Neurosurgery 05/27/24
--- OUTSIDE RECORDS SUMMARY | 2024-10-29 10:35 | XMS_ITS | Encounter Summary ---
Author Organization [employer] Address [address] [place] [address] Care Team Providers Care Suction Operator Name Role Phone Juan David Yusuf MD Primary Care Provider [phone] Encounter Details Date Type Department Care Team (Late st Contact Info) Description 04/01/1999 Outpatient Historical [facility] Isatu Grant MD Social History Tobacco Use Types Packs/Day Years Used Date Smoking Tobacco: Never Assessed Comments Unknown Sex and Gender Information Value Date Recorded Sex Assigned at Not on file Legal Sex Female 3:33 AM DESIGNER ARCHITECT Gender Identity Not on file Sexual Orientation Not on file documented as of this encounter Plan of Treatment Not on file documented as of this encounter Visit Diagnoses Not on filedocumented in this encounter Care Teams Suction Operator Relationship Specialty Start Date End Date Juan David Yusuf MD PCP - General Family Practice 01/14/18 documented as of this encounter
--- OUTSIDE RECORDS SUMMARY | 2024-10-29 10:35 | XMS_ITS ---
Author Name Auto Generated, Auto Generated Organization [employer] [employer] Address [address] [place] [address] Phone [phone] Care Team Providers Care Supervisor Industrial Garment Name Role Phone Camila Spence Unavailable Georges Emy Unavailable Meagan Turner Unavailable Functional Status No Results Mental Status No Results Allergies and Intolerances Name Onset Date Reaction Severity thiopental (Allergy) SatFeb 06 12:18:00 EST 202 3 penicillin (Allergy) SatFeb 06 12:18:00 EST 202 3 Encounters Program Name Primary Diagnosis Admission Date/Time Dis charge Date/Time Detention Care Facility [facility]-Term[facility] Term Rehabilitation Unit SatJun 16 10:00:00 EDT [...] Hours for 4 Days Indication: Pneumonia (2 [id number]) SatFeb 06 14:00:00 2022Feb 10 13:59:00 EST [...] 2022 * End Date: * Text: * salvage determiner (current) use of anticoagulants* Code: * Start [...] 2023 * End Date: * Text: * jail (current) use of opiate analgesic* Code: * [...] * Text: * Atherosclerotic heart disease of [place] coronary artery without angina pectoris* Code: * [...] 2024 * End Date: * Text: * [id number] Ping receives a therapeutic diet. (12)* Code: * Start Date: SatJun 25 00:00:00 EDT 2024 * End Date: * Text: [id number] Ping receives a therapeutic diet. (12) * [...] EDT 2024 Systolic Blood Pressure 122.00 mm[Hg] [facility] Apr 12 22:04:55 EDT 2024 Diastolic Blood Pressure 80.00 mm[Hg] [facility] 12 22:04:55 EDT 2024 Systolic Blood Pressure 122.00 mm[Hg] [facility] Apr 12 22:04:55 EDT 2024 Diastolic Blood Pressure 80.00 mm[Hg] [facility] Apr 12 22:04:55 EDT 2024 Heart Rate 94.00 /min [facility] Apr 12 22:04 :55 EDT 2024 Heart Rate 94.00 /min [facility] 12 22:04 :55 EDT 2024 Body weight 212.80 [lb_av] [facility] Apr 12 17:09 :01 EDT 2024 Systolic Blood Pressure 119.00 mm[Hg] Sat Apr 12 14:27:00 EDT 2024 Diastolic Blood Pressure 83.00 mm[Hg] [facility] Apr 12 14:27:00 EDT 2024 Heart Rate 98.00 /min [facility] Apr 12 14:27 :00 EDT 2024 Systolic Blood Pressure 114.00 mm[Hg] Sat Apr 12 11:56:23 EDT 2024 Diastolic Blood Pressure 66.00 mm[Hg] [facility] Apr 12 11:56:23 EDT 2024 Pulse Oximetry 93.00 % Sat Apr 12 11:56 :23 EDT 2024 Pulse Oximetry 93.00 % [facility] Apr 12 11:56 :23 EDT 2024 Heart Rate 95.00 /min [facility] Apr 12 11:56 :23 EDT 2024 Body temperature 98.30 [degF] [facility] Apr 12 11:5 6:23 EDT 2024 Respiratory rate 18.00 /min [facility] Apr 12 11:5 6:23 EDT 2024 Systolic Blood Pressure 104.00 mm[Hg] [facility] Apr 12 08:51:15 EDT 2024 Diastolic Blood Pressure 66.00 mm[Hg] [facility] Apr 12 08:51:15 EDT 2024 Systolic Blood Pressure 104.00 mm[Hg] [facility] Apr 12 08:51:15 EDT 2024 Diastolic Blood Pressure 66.00 mm[Hg] [facility] Apr 12 08:51:15 EDT 2024 Heart Rate 95.00 /min [facility] Apr 12 08:51 :15 EDT 2024 Heart Rate 95.00 /min [facility] Jun 12 08:51 :15 EDT 2024 Systolic [...] 00:34:04 EDT 2024 Pulse Oximetry 94.00 % [facility] Jun 27 00:34 :04 EDT 2024 Pulse Oximetry 94.00 % [facility] Jun 27 00:34 :04 EDT 2024 Pulse Oximetry 94.00 % [facility] Jun 27 00:34 :04 EDT 2024 Heart Rate 88.00 /min [facility] Jun 27 00:34 :04 EDT 2024 Body temperature 98.20 [degF] [facility] Jun 27 00:3 4:04 EDT 2024 Respiratory rate 18.00 /min [facility] Jun 27 00:3 4:04 EDT 2024 Systolic [...]
--- OUTSIDE RECORDS SUMMARY | 2024-10-29 10:35 | XMS_ITS ---
Author Name Auto Generated, Auto Generated Organization [employer] [facility] [employer] Address [address] [place] [address] Phone [phone] Care Team Providers Care National Service Officer Name Role Phone Camila Spence Unavailable [phone] Georges Emy Unavailable Meagan Turner Unavailable Functional Status No Results Mental Status No Results Allergies and Intolerances Name Onset Date Reaction Severity thiopental (Allergy) SatFeb 06 12:18:00 EST 202 3 penicillin (Allergy) SatFeb 06 12:18:00 EST 202 3 Encounters Program Name Primary Diagnosis Admission Date/Time Dis charge Date/Time [facility] Care Facility [facility] SatJun 16 10:00:00 EDT [...] Hours for 4 Days Indication: Pneumonia (2 [id number]) SatFeb 06 14:00:00 2022Feb 10 13:59:00 EST [...] * End Date: * Text: * terminal manager (current) use of anticoagulants* Code: * Start [...] 2023 * End Date: * Text: * [facility] (current) use of opiate analgesic* Code: * [...] * Text: * Atherosclerotic heart disease of [place] coronary artery without angina pectoris* Code: * [...] 2024 * End Date: * Text: * [id number] Ping receives a therapeutic diet. (12)* Code: * Start Date: SatJun 25 00:00:00 EDT 2024 * End Date: * Text: [id number] Ping receives a therapeutic diet. (12) * [...] EDT 2024 Systolic Blood Pressure 122.00 mm[Hg] [facility] Apr 12 22:04:55 EDT 2024 Diastolic Blood Pressure 80.00 mm[Hg] [facility] 12 22:04:55 EDT 2024 Systolic Blood Pressure 122.00 mm[Hg] [facility] Apr 12 22:04:55 EDT 2024 Diastolic Blood Pressure 80.00 mm[Hg] [facility] Apr 12 22:04:55 EDT 2024 Heart Rate 94.00 /min [facility] Apr 12 22:04 :55 EDT 2024 Heart Rate 94.00 /min [facility] 12 22:04 :55 EDT 2024 Body weight 212.80 [lb_av] [facility] Apr 12 17:09 :01 EDT 2024 Systolic Blood Pressure 119.00 mm[Hg] Sat Apr 12 14:27:00 EDT 2024 Diastolic Blood Pressure 83.00 mm[Hg] [facility] Apr 12 14:27:00 EDT 2024 Heart Rate 98.00 /min [facility] Apr 12 14:27 :00 EDT 2024 Systolic Blood Pressure 114.00 mm[Hg] Sat Apr 12 11:56:23 EDT 2024 Diastolic Blood Pressure 66.00 mm[Hg] [facility] Apr 12 11:56:23 EDT 2024 Pulse Oximetry 93.00 % Sat Apr 12 11:56 :23 EDT 2024 Pulse Oximetry 93.00 % [facility] Apr 12 11:56 :23 EDT 2024 Heart Rate 95.00 /min [facility] Apr 12 11:56 :23 EDT 2024 Body temperature 98.30 [degF] [facility] Apr 12 11:5 6:23 EDT 2024 Respiratory rate 18.00 /min [facility] Apr 12 11:5 6:23 EDT 2024 Systolic Blood Pressure 104.00 mm[Hg] [facility] Apr 12 08:51:15 EDT 2024 Diastolic Blood Pressure 66.00 mm[Hg] [facility] Apr 12 08:51:15 EDT 2024 Systolic Blood Pressure 104.00 mm[Hg] [facility] Apr 12 08:51:15 EDT 2024 Diastolic Blood Pressure 66.00 mm[Hg] [facility] Apr 12 08:51:15 EDT 2024 Heart Rate 95.00 /min [facility] Apr 12 08:51 :15 EDT 2024 Heart Rate 95.00 /min [facility] Jun 12 08:51 :15 EDT 2024 [...] 00:34:04 EDT 2024 Pulse Oximetry 94.00 % [facility] Jun 27 00:34 :04 EDT 2024 Pulse Oximetry 94.00 % [facility] Jun 27 00:34 :04 EDT 2024 Pulse Oximetry 94.00 % [facility] Jun 27 00:34 :04 EDT 2024 Heart Rate 88.00 /min [facility] Jun 27 00:34 :04 EDT 2024 Body temperature 98.20 [degF] [facility] Jun 27 00:3 4:04 EDT 2024 Respiratory rate 18.00 /min [facility] Jun 27 00:3 4:04 EDT 2024 [...] :03 EDT 2024 Heart Rate 94.00 /min [facility] Jun 18 09:47 :03 EDT 2024 Pulse [...]
--- OUTSIDE RECORDS SUMMARY | 2024-10-29 10:35 | XMS_ITS | Encounter Summary ---
Author Organization [facility] Healthcare Address [address] [place] [address] Care Team Providers Care Template Inspector Name Role Phone Meagan uYsuf MD Primary Care Provider + Annemarie Lea MD Unavailable [phone] Margy Walker MD PhD Unavailable [phone] Geraldine Barbosa NP Unavailable [phone] Encounter Details Date Type Department Care Team (Late st Contact Info) Description 08/18/2024 Orders Only [facility] Health Information Management [address] [place] [id number] Scanning, Provider Social History Tobacco Use [...] on file Legal Sex Female 4:29 PM 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
[2024-10-29 11:29] LABS: Blood Urea Nitrogen 55 mg/dL (7-17); Calcium 9.4 mg/dL (8.4-10.2); Chloride 84 mmol/L (98-107); Estimated Glomerular Filt Rate 43; Glucose 119 mg/dL (65-110); Potassium 3.3 mmol/L (3.4-5.0); Sodium 137 mmol/L (137-145)
[2024-10-29 11:30] LABS: Carbon Dioxide > 40 mmol/L (22-30)
== END 2024-10-29 10:30 | disposition home or self-care (01) ==
LOC: ANHLAB 10:32
PROVIDERS: PCP Family Medicine; Visit Provider Family Medicine
DX: E87.6 Hypokalemia (principal)
CPT/HCPCS: 36415; 80048

== ENCOUNTER 2024-11-27 12:51 | Outpatient (CLI) | payer MEDICARE, SELFPAY ==
--- OUTSIDE RECORDS SUMMARY | 2024-11-27 12:59 | XMS_ITS | Encounter Summary ---
Author Organization [employer] Address 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
--- OUTSIDE RECORDS SUMMARY | 2024-11-27 12:59 | XMS_ITS | Encounter Summary ---
Author Organization [employer] Address [address] [place] [address] Care Team Providers Care Warehouse Worker Name Role Phone Juan David Yusuf MD Primary Care Provider [phone] Encounter Details Date Type Department Care Team (Late st Contact Info) Description 07/14/1999 Outpatient Historical [facility] Isatu Grant MD Social History Tobacco Use Types Packs/Day Years Used Date Smoking Tobacco: Never Assessed Comments Unknown Sex and Gender Information Value Date Recorded Sex Assigned at Not on file Legal Sex Female 3:33 AM RECREATION WORKER Gender Identity Not on file Sexual Orientation Not on file documented as of this encounter Plan of Treatment Not on file documented as of this encounter Visit Diagnoses Not on filedocumented in this encounter Care Teams Warehouse Worker Relationship Specialty Start Date End Date Juan David Yusuf MD PCP - General Family Practice 01/14/18 documented as of this encounter
--- OUTSIDE RECORDS SUMMARY | 2024-11-27 12:59 | XMS_ITS | Clinical Summary ---
Author Organization [facility] Address [address] [place] [address] Care Team Providers Care Online Advertising Manager Name Role Phone Meagan Yusuf MD Primary Care Provider + Annemarie Lea MD Unavailable [phone] Margy Walker MD PhD Unavailable [phone] Geraldine Barbosa NP Unavailable [phone] Allergies Active Allergy Reactions Criticality Noted Date [...] 2 (two) times a day 5 Active metOLazone (ZAROXOLYN) 2.5 mg tablet Take 1 tablet (2.5 mg total) by mouth daily 30 tablet 11 5 07/23/19 26 Active fluticasone-ume clidin-vilanter (TRELEGY ELLIPTA) 200-62.5-25 mcg inhaler Inhale 1 puff every day by inhalation route. 5 Active bumetanide (BUMEX) 2 mg tablet TAKE 1 TABLET(2 MG) BY MOUTH DAILY 30 tablet 5 5 Active Active Problems Problem Noted Date [...] 05/23/2024 Assessment & Plan (05/26/2024 9:50 AM PIANO TUNER): #COPD #TRAVIS, chronic #Chronic hypoxic respiratory failure [...] 05/23/2024 Assessment & Plan (05/27/2024 11:52 AM PIANO TUNER): 3/ tx out ICU, PT/OT - 05/25: awaiting repeat swallow evaluation, calorie counts - 05/26: Continue Tfs at nightly, Calorie counts. Wean O2 back to home 4L. Not medically ready for discharge. 05/27: Patient is medically stable for discharge, SW/CM updated. Discharge pending facility bed availability Treatment note 05/14 [x] Feeding difficulties 05/22/2024 Assessment & Plan (05/27/2024 11:55 AM PIANO TUNER): SBFT placed by ENT 05/21 TFs commenced [...] NPO, resumed tube feeds, ordered for repeat WINDOW SHADE CLOTH SEWER evaluation. Recommend up in chair for all meals and 1:1 assistance during meals pending WINDOW SHADE CLOTH SEWER evaluation. Discussed with patient and nurse to inform provider of any change in clinical exam or vital signs. 05/25: repeat Swallow- regular diet, regular thin liquids assistance with meals, calorie counts ordered, cycle tube feeding over PM MBS (05/27): swallow mechanism is normal Respiratory distress 05/20/2024 Assessment & Plan (05/27/2024 11:55 AM PIANO TUNER): Transferred to SICU 05/18 ON after respiratory [...] 05/14/2024 Assessment & Plan (05/15/2024 2:15 PM PIANO TUNER): - Orthostatic vital signs (05/14): negative - [...] 05/14/2024 Assessment & Plan (05/14/2024 12:48 PM PIANO TUNER): - Tylenol 1g q6h - Gabapentin 300mg TID - Robaxin 500mg TID PRN - Oxycodone 5mg q4h PRN Closed fracture of distal end of left radius Assessment & Plan (05/27/2024 11:55 AM PIANO TUNER): - Plastics consult - L hand/wrist xr [...] 05/14/2024 Assessment & Plan (05/25/2024 11:39 AM PIANO TUNER): - Magnesium (05/14): 1.9mg/dL - 05/14: replete Magnesium 2g IV - Magnesium (05/15): 2.0mg/dL - Magnesium (05/20): 2.2mg/dL - Magnesium (05/25): 2.0mg/dL - continue to trend Magnesium Fall, initial encounter 05/13/2024 Assessment & Plan (05/15/2024 10:18 AM PIANO TUNER): Syncopal workup given unclear mechanism (TTE, carotid [...] months Assessment & Plan (05/27/2024 11:52 AM PIANO TUNER): Ophtho c/s ---HOB elevation, open-mouth sneezing, no [...] to be tasked with Dr Lea's team. [phone] Antibiotics Ancef 7day (complete) Intraparenchymal hematoma of brain due to trauma 05/13/2024 Assessment & Plan (05/23/2024 4:06 PM PIANO TUNER): - Neurosurgery consult - Repeat head CT [...] 05/13/2024 Assessment & Plan (05/25/2024 11:36 AM PIANO TUNER): - Hold Xarelto - home diltiazem 180 [...] 05/13/2024 Assessment & Plan (05/24/2024 3:43 PM PIANO TUNER): Grade II diastolic dysfunction -EF 70%, moderate pulmonary hypertension (09/2021) 3: resumed home diltiazem. CTM BP and resume home lasix when appropriate. Restless leg syndrome 05/13/2024 Assessment & Plan (05/13/2024 2:32 PM PIANO TUNER): - Continue home ropinrole and pramipexole, gabapentin Mood disorder 05/13/2024 Assessment & Plan (05/13/2024 2:37 PM PIANO TUNER): Continue home zoloft Heart failure with mildly re duced ejection fraction (HFmrEF) 01/15/2024 Assessment & Plan (05/27/2024 11:57 AM PIANO TUNER): #HTN, chronic #HFrEF, chronic #Severe MR #Severe TI #Severe pulmonary hypertension - TTEs as above - Home O2 4L - Follows with [facility] Cardiology - Home Diltiazem, Entresto, Lasix (1/2 dose) and metoprolol continued Persistent atrial fibrillation 02/20/2022 Noncompliance with medicatio n treatment due to intermittent use of medication 12/18/2021 Morbid (severe) obesity due to excess calories 0 07/05/2021 Labile hypertension 03/23/2021 Hypotension due to drugs 03/23/2021 Coronary artery disease invo lving [place] coronary artery of [place] heart without angina pectoris 02/10/2021 Mixed hyperlipidemia 02/10/2021 Chronic obstructive pulmonary disease 02/10/2021 Chronic respiratory failure with hypoxia 021 TRAVIS on CPAP 02/10/2021 Frequent falls 02/10/2021 Resolved Problems Problem Noted Date Diagnosed Date Resolved Date COPD (chronic obstructive pulmonary disease) 5 05/23/2024 Assessment & Plan (05/13/2024 2:35 PM PIANO TUNER): - home meds: albuterol, ipratopium-albuterol Discharge planning issues 05/13/2024 Assessment & Plan (05/18/2024 2:27 PM PIANO TUNER): - 05/14: orthostatic vital signs pending, syncope workup pending, awaiting PT/OT - 05/15: atrial fibrillation with RVR over PM, ECHO pending. Possible OR on 05/18 05/16 pending OR with Plastics on Saturday and Saturday. Echo completed EF 52% with extensive cardiac anomalies all stable. 05/18: Pending OR with PRS and ENT Treatment plan note [x] Chronic anticoagulation 07/18/20223 H/O cardiomyopathy 12/18/2021 4 Chronic heart failure with p reserved ejection fraction 02/10/2021 01/15/2024 Encounters Date Type Department Care Team Description 09/01/2024 11:00 AM CDT Office Visit [facility] Medical Group Cardiology [address] [place] [address] Allie Contreras NP Persistent atrial fibrillation (HCC) (Primary Dx); Frequent falls; Intraparenchymal hematoma of brain, with unknown loss of consciousness status, unspecified laterality, subsequent encounter; Nonrheumatic mitral valve regurgitation; Nonrheumatic tricuspid valve regurgitation; Chronic HFrEF (heart failure with reduced ejection fraction) (HCC) from Last 3 Months Immunizations Immunization Administration Dates Next Due Tdap 05/13/2024 Surgical History Surgery Date Site/Laterality Comments HYSTERECTOMY TOTAL SHOULDER REPLACEMENT Right HIP ARTHROPLASTY Medical History Medical History Date Comments [place], old CHF (congestive heart failure) (HCC) Alcohol [...] on file Legal Sex Female 4:29 PM PIANO TUNER Gender Identity Not on file Sexual Orientation Not on file Obstetrics History Last Filed Vital Signs Vital Sign Reading Time Taken Comments Blood Pressure 104/74 09/01/2024 11:18 AM CDT Pulse 74 09/01/2024 11:18 AM CDT Temperature 37.1 C (98.8 F) 05/27/2024 3:28 PM PIANO TUNER Respiratory Rate 20 05/27/2024 11:49 AM PIANO TUNER Oxygen Saturation 99% 09/01/2024 11:18 AM CDT [...] 05/08/2018, 12/24 Medical Devices Implanted Type Area Fundraising Specialist Device Identifier Shelf Expiration Date Model / Serial / Lot Implantech Sheeting Silastic Non Reinforced Alliedsil [id number] Silicone 23-700-40 - [id number] Implanted:Qty: 1 on 05/19/2024 by Annemarie Lea MD at [facility] Other - see comments Right: Face Implantech 07/03/2028-700- 40 / / Luis Carlos Craniomaxillofacial Craniomaxillofacial Right 3d Large Implant Orbital Medpor Titan 39635 - [id number] Implanted:Qty: 1 on 05/19/2024 by Annemarie Lea MD at [facility] Other - see comments Right: Face Luis Carlos Craniomaxillofacial 08/19/2032 68869 / / Melvin Craniomaxillofacial 1.2mm 4mm Self Drill Axial Stability Lower Profile Screw Bone 56-95089 - [id number] Implanted:Qty: 1 on 05/19/2024 by Annemarie Lea MD at [facility] Other - see comments Right: Face Melvin Craniomaxillofacial 56-1290 4 / / Medartis Inc Plt 2.5 Adaptive Ii Trilock Dist Rad Vol L 10h Narrow T2.0 A-4750.101 - [id number] Implanted:Qty: 1 on 05/18/2024 by Margy Walker MD PhD at [facility] Left: Wrist Medartis Inc A-4750. 101 / / Medartis Inc 2.5mm 18mm Lock Cortical Screw Bone A-5750.18 - [id number] Implanted:Qty: 1 on 05/18/2024 by Margy Walker MD PhD at [facility] Left: Wrist Medartis Inc A-5750. 18 / / Medartis Inc 2.5mm 22mm Lock Cortical Screw Bone A-5750.22 - [id number] Implanted:Qty: 2 on 05/18/2024 by Margy Walker MD PhD at [facility] Left: Wrist Medartis Inc A-5750. 22 / / Medartis Inc 2.5mm 20mm Lock Cortical Screw Bone A-5750.20 - [id number] Implanted:Qty: 3 on 05/18/2024 by Margy Walker MD PhD at [facility] Left: Wrist Medartis Inc A-5750. 20 / / Medartis Inc Aptus 2.5mm 14mm Lock Cortical Screw Bone A-5750.14 - [id number] Implanted:Qty: 2 on 05/18/2024 by Margy Walker MD PhD at [facility] Left: Wrist Medartis Inc A-5750. 14 / / Medartis Inc Aptus 2.5mm 14mm Cortical Screw Bone A-5700.14 - [id number] Implanted:Qty: 1 on 05/18/2024 by Margy Walker MD PhD at [facility] Left: Wrist Medartis Inc A-5700. 14 / / Medartis Inc 2.5mm 12mm Lock Cortical Screw Bone A-5750.12 - [id number] Implanted:Qty: 1 on 05/18/2024 by Margy Walker MD PhD at [facility] Left: Wrist Medartis Inc A-5750. 12 / / Explanted Type Area Fundraising Specialist Device Identifier Shelf Expiration Date Model / Serial / Lot Medartis Inc Aptus 2.5mm 16mm Cortical Screw Bone A-5700.16 - [id number] Explanted:Qty: 1 on 05/18/2024 by Margy Walker MD PhD at [facility] Left: Wrist Medartis Inc A-5700 .16 / / Medartis Inc 2.5mm 18mm Lock Cortical Screw Bone A-5750.18 - [id number] Explanted:Qty: 1 on 05/18/2024 at [facility] Left: Wrist Medartis Inc A-5750 .18 / / Insurance MEDICARE MEDICARE [facility] MEDICARE SUPPLEMENT MEDICARE BLUE CROSS MEDICARE SUPPLEMENT Advance Directives For more information, please contact: [phone] * Full Code (Latest Code Status on File) Date Activated Date Inactivated Comments 05/13/2024 8:42 PM 05/27/2024 11:27 PM Care Teams Online Advertising Manager Relationship Specialty Start Date End Date Meagan Yusuf MD PCP - General Family Medicine 05/22/23 Annemarie Lea MD [address] [place] [address] Consulting Physician Otolaryngology 05/27/24 Margy Walker MD PhD [address] [place] [address] Consulting Physician Plastic Surgery 05/27/24 Geraldine Barbosa NP [address] [place] [address] Nurse Practitioner Neurosurgery 05/27/24
--- OUTSIDE RECORDS SUMMARY | 2024-11-27 12:59 | XMS_ITS | Encounter Summary ---
Author Organization [employer] Address [address] [place] [address] Care Team Providers Care Offshore Wind Operations Manager Name Role Phone Juan David Yusuf MD Primary Care Provider [phone] Encounter Details Date Type Department Care Team (Late st Contact Info) Description 02/02/1999 Outpatient Historical [facility] Isatu Grant MD Social History Tobacco Use Types Packs/Day Years Used Date Smoking Tobacco: Never Assessed Comments Unknown Sex and Gender Information Value Date Recorded Sex Assigned at Not on file Legal Sex Female 3:33 AM LINING MECHANIC Gender Identity Not on file Sexual Orientation Not on file documented as of this encounter Plan of Treatment Not on file documented as of this encounter Visit Diagnoses Not on filedocumented in this encounter Care Teams Offshore Wind Operations Manager Relationship Specialty Start Date End Date Juan David Yusuf MD PCP - General Family Practice 01/14/18 documented as of this encounter
--- OUTSIDE RECORDS SUMMARY | 2024-11-27 12:59 | XMS_ITS | Clinical Summary ---
Author Organization [facility] Address [address] [place] [address] Phone Care Team Providers Care Office Administration Instructor Name Role Phone Juan David Yusuf MD Primary Care Provider [phone]- [phone] Allergies Active Allergy Reactions Criticality Noted Date [...] 6 Tablets 42 Tablet 01/30/2018 3:41 PM RECREATION ACTIVITIES COORDINATOR 8 Active Active Problems Problem Noted Date [...] file Legal Sex Female 3:33 AM RECREATION ACTIVITIES COORDINATOR Gender Identity Not on file Sexual Orientation Not on file Last Filed Vital Signs Vital Sign Reading Time Taken Comments Blood Pressure 123/62 01/30/2018 12:28 PM RECREATION ACTIVITIES COORDINATOR Pulse 74 01/30/2018 12:28 PM RECREATION ACTIVITIES COORDINATOR Temperature 36.5 C (97.7 F) 01/30/2018 12:28 PM RECREATION ACTIVITIES COORDINATOR Respiratory Rate 10 01/30/2018 12:28 PM RECREATION ACTIVITIES COORDINATOR Oxygen Saturation 93% 01/30/2018 12:28 PM RECREATION ACTIVITIES COORDINATOR Inhaled Oxygen Concentration - - Weight 116.6 kg (257 lb) 01/28/2018 8:16 AM RECREATION ACTIVITIES COORDINATOR Height 167.6 cm (5' 6) 01/28/2018 8:16 AM RECREATION ACTIVITIES COORDINATOR Body Mass Index 41.48 01/28/2018 8:16 AM RECREATION ACTIVITIES COORDINATOR Plan of Treatment Health Maintenance Due Date Last Done Comments DTAP/TDAP/TD VACCINES (1 - Tdap) 12/21/1966 PNEUMOCOCCAL VACCINE 50+ YEARS (1 of 2 - PCV) 12/21/18 69 ZOSTER VACCINE (1 of 2) 12/21/1997 OSTEOPOROSIS SCREENING 12/21/2012 RSV VACCINE (60+ or ) (1 - 1-dose 75+ series) 12/21/2022 INFLUENZA VACCINE (#1) 2024 01/28/2018 Medical Devices Implanted Type Area Public Relations Account Executive Device Identifier Shelf Expiration Date Model / Serial / Lot Shell Ringlc+ Pc 54mm [id number] - [id number] Implanted:Qty: 1 on 11/08/2016 by Abhinav Quesada MD at [facility] Hip Right: Hip BIOMET INC [id number] 09/27/2026 [id number] / / [id number] Liner Arcomxl Rnglc Sz24 Xl-094514 - [id number] Implanted:Qty: 1 on 11/08/2016 by Abhinav Quesada MD at [facility] Hip Right: Hip BIOMET INC [id number] 10/01/2020 XL-523268 / / [id number] Stem Fem Echo Bmtrc Por Red Lat 943324 - [id number] Implanted:Qty: 1 on 11/08/2016 by Abhinav Quesada MD at [facility] Hip Right: Hip BIOMET INC [id number] 04/11/2025 [id number] / / [id number] Head Modular Noskt 36mm -3mm [id number] - [id number] Implanted:Qty: 1 on 11/08/2016 by Abhinav Quesada MD at [facility] Hip Right: Hip BIOMET INC [id number] 09/25/2026 11-111493 / / [id number] Rsp Glenoid Head W Retaining Screw Neutral Sz 32mm Implanted:Qty: 1 on 01/27/2018 by Guerrero Cho MD at [facility] Other Right: Shoulder DJO INC 12/05/2023 508-32-10 1 / / [id number] Small Socket Insert 32mm Semi Constrained E Plus Implanted:Qty: 1 on 01/27/2018 by Guerrero Cho MD at [facility] Other Right: Shoulder [employer] INC 11/29/2022 509-03-03 2 / / [id number] Humeral Stem Small Shell [id number] Implanted:Qty: 1 on 01/27/2018 by Guerrero Cho MD at [facility] Other Right: Shoulder [employer]O INC 11/22/2023 533-10-10 8 / / [id number] Description:All DJO Surgical shoulder components are processed on requisition,[id number]. Rsp Glenoid Baseplate Implanted:Qty: 1 on 01/27/2018 by Guerrero Cho MD at [facility] Screw Right: Shoulder [employer]O INC [id number] 10/23/2023 508-32-20 4 / / [id number] Rsp Bone Screw Locking Sz 5.0mm 30mm Long Implanted:Qty: 1 on 01/27/2018 by Guerrero Cho MD at [facility] Screw Right: Shoulder [employer]O INC 06/25/2023 506-03- 0 / / [id number] Rsp Bone Screw Locking Sz 5.0mm 22 Mm Long Implanted:Qty: 1 on 01/27/2018 by Guerrero Cho MD at [facility] Screw Right: Shoulder [employer] INC 08/17/2023 506-12 2 / / [id number] Bone Screw Rsp5.0x26mm Long Implanted:Qty: 1 on 01/27/2018 by Guerrero Cho MD at [facility] Screw Right: Shoulder DJO INC 6 / / Rsp Bone Screw- Locking Implanted:Qty: 1 on 01/27/2018 by Guerrero Cho MD at [facility] Right: Shoulder [employer] INC 11/01/2023 506-03-11 [id number] Insurance MEDICARE PART A AND B BCBS SUPP RX AET[employer] Medicare Part D RX [facility] Medicare Part D Advance Directives For more information, please contact: [phone] Documents on File Type Date Recorded Patient Camelid Fiber Sorter Expl anation Advance Directive POA 02/04/2018 1:58 [...] 6:44 AM 11/08/2016 7:30 AM Care Teams Office Administration Instructor Relationship Specialty Start Date End Date Juan David Yusuf MD PCP - General Family Practice 01/14/18
--- OUTSIDE RECORDS SUMMARY | 2024-11-27 12:59 | XMS_ITS | Patient Health Record ---
Author Organization [employer] Address [address] [facility] [place] [address] Care Team Providers Care Groundskeeping Maintenance Name Role Phone Juanita BROWN, [place] Primary Care Provider Unavailabl e Reason For Referral No Information Plan Of Treatment No Information Insurance Providers Payer Name Payer Address Payer Phone Subscriber Number Group Number Insured Name Patient Relationship to Insured Coverage Start Date Coverage End Date [facility] Choice Plus [id number] [address] [address] [place] [address] [id number] Ping Waller Self - patient is the insured
--- OUTSIDE RECORDS SUMMARY | 2024-11-27 12:59 | XMS_ITS | Encounter Summary ---
Author Organization [facility] Address [address] [place] [address] Care Team Providers Care Melter Supervisor Oxygen Furnace Name Role Phone Meagan Yusuf MD Primary Care Provider + Annemarie Lea MD Unavailable [phone] Margy Walker MD PhD Unavailable [phone] Geraldine Barbosa NP Unavailable [phone] Encounter Details Date Type Department Care Team (Late st Contact Info) Description 08/18/2024 Orders Only [facility] Health Information Management [address] [place] [address] Scanning, Provider Social History Tobacco Use [...] on file Legal Sex Female 4:29 PM PAD HAND Gender Identity Not on file Sexual Orientation [...] on filedocumented in this encounter Care Teams Melter Supervisor Oxygen Furnace Relationship Specialty Start Date End Date Meagan Yusuf MD PCP - General Family Medicine 05/22/23 Annemarie Lea MD [address] [place] [address] Consulting Physician Otolaryngology 05/27/24 Margy Walker MD PhD [address] [place] [address] Consulting Physician Plastic Surgery 05/27/24 Geraldine Barbosa NP [address] [place] [address] Nurse Practitioner Neurosurgery 05/27/24 documented as of this encounter
[2024-11-27 13:00] VITALS: PULSE 76; O2SAT 92
[2024-11-27 13:10] VITALS: PULSE 89; O2SAT 87
[2024-11-27 13:15] VITALS: PULSE 90; O2SAT 88
[2024-11-27 13:20] VITALS: PULSE 92; O2SAT 91
[2024-11-27 13:35] VITALS: PULSE 79; O2SAT 93
[2024-11-27 13:48] LABS: Alveolar/Arterial O2 Gradient 28.1 mmHg; Fractional Inspired Oxygen 21 %; HCO3 ABG 37.9 mEq/l (22.0-26.0); Modified Allen's Test Pass; Oxygen Content ABG 15.9 %vol (16.0-22.0); Oxygen Saturation ABG 91.8 % (95.0-100.0); PCO2 ABG 52.3 mmHg (35.0-45.0); PO2 ABG 59.0 mmHg (80.0-100.0); PO2 FiO2 Ratio Arterial Blood 2.81 %
--- NOTE | 2024-11-27 14:49 | HOMEO2EVAL ---
Evaluation was performed at [facility] Home Oxygen Evaluation RC: Home Oxygen (O2) Evaluation Start: 11/27/24 14:43 Freq: Status: Active Protocol: RPE Activity Type Activity Date Activity User E-sign Co-sign Detail Recorded Client Recorded Date Recorded By Document 11/27/24 13:00 PK [email or web address]_012 11/27/24 14:48 PK Document 11/27/24 13:10 PK RT_012 11/27/24 14:48 PK Document 11/27/24 13:15 [facility] [email or web address] 11/27/24 14:48 [facility] Document 11/27/24 13:20 [facility] [email or web address] 11/27/24 14:48 [facility] Document 11/27/24 13:35 [facility] [email or web address]_012 11/27/24 14:48 [facility] 11/27/24 11/27/24 11/27/24 13:00 13:10 13:15 Home O2 Evaluation [Oxygen] -Test Phase Resting Exercise Exercise -Oxygen Delivery Room Air Room Air Nasal Cannula -Oxygen Flow Rate (L/min) 1 -Fraction of Inspired Oxygen (%) [Pulse Oximetry] -Pulse Oximetry (90-100 %) 92 87 L 88 L [Pulse Rate] -Pulse Rate (60-100 beats/min) 76 89 90 [Evaluation] -Activity Tolerance Good Good [Charges] -Evaluation Charges O2 Evaluation by Pulmonary 11/27/24 11/27/24 13:20 13:35 Home O2 Evaluation [Oxygen] -Test Phase Exercise Resting -Oxygen Delivery Nasal Cannula Room Air -Oxygen Flow Rate (L/min) -Fraction of Inspired Oxygen (%) 2 [Pulse Oximetry] -Pulse Oximetry (90-100 %) 91 93 [Pulse Rate] -Pulse Rate (60-100 beats/min) 92 79 [Evaluation] -Activity Tolerance [Charges] -Evaluation Charges
--- NOTE | 2024-11-27 15:12 | P.PCNPFT_ITS ---
PFT Procedure Performed PFT Procedure Performed Spirometry with Pre/Post Bronchodilator Plethysmography (Lung Vol) Diffusing Cap (DLCO) Flow Vol Loop PFT Interpretation This is a pulmonary function test with pre and post-bronchodilator spirometry, plethysmography, diffusing capacity, and rest room air arterial blood gas. The test was performed and results interpreted in accordance with the 2019 and 2005 ATS/ERS Task Force guidelines respectively using the Global Lung Function Initiative-2012 reference equations. Patient demonstrated good effort and cooperation. Reproducibility criteria were met. The quality of the pre bronchodilator spirometry maneuver was Grade A and post bronchodilator spirometr y maneuver was Grade A. Findings: Spirometry: The contour the expiratory flow tracing is notched in 3 of 3 pre bronchodilator efforts and 2 of 3 post bronchodilator efforts. There is decreased maximal expiratory airflow at low lung volumes with a concave expiratory flow tracing. The contour the inspiratory flow tracing is normal. The pre bronchodilator FVC is 1.42 L, 51% predicted. The pre bronchodilator FEV1 is 0.86 L, 41% predicted. The pre bronchodilator FEV1: FVC ratio 61%. The post bronchodilator FVC is 1.37 L, representing a 3% decrease. The post bronchodilator FEV1 is 0.89 L, representing a 4% increase. The post bronchodilator FEV1: FVC ratio 65%. Plethysmography: The total lung capacity is 4.00 L, 77% predicted. The functional residual capacity is 2.83 L, 95% predicted. The residual volume is 2.48 L, 105% predicted. The residual volume: Total lung capacity ratio is 62%. Diffusing capacity: The diffusing capacity unadjusted for hemoglobin and carboxyhemoglobin is 9.3, 46% predicted. The diffusing capacity adjusted for alveolar volume is 3.65, 88% predicted. Resting room air arterial blood gas: PH 7.48, PaCO2 52.3, PaO2 59 In comparison to previous pulmonary function testing on 04/25/2021, the notched expiratory flow tracing was previously present in 1 of 3 pre bronchodilator efforts and 1 of 3 post bronchodilator efforts. There is no lo nger a positive bronchodilator response. The post bronchodilator FVC has decreased from 1.94 L to 1.37. The post bronchodilator FEV1 is decreased from 1.31 L to 0.89 L. The total lung capacity has decreased from 4.78 L to 4.00 L. The functional residual capacity is decreased from 3.30 L to 2.83 L. The residual volume is decreased from 2.95 L to 2.48 L. The residual volume:Total lung capacity ratio is unchanged from 62% to 62%. The diffusing capacity unadjusted for hemoglobin and carboxyhemoglobin is decreased from 12.7 to 9.3. The diffusing capacity adjusted for alveolar volume is unchanged from 3.85 to 3.65. Impression: The notched pattern has been described with coughing or tracheobronchomalacia. There is a combined obstructive and restrictive ventilatory abnormality. There are no guidelines to assign the severity of obstruction and restriction with a combined abnormality. In my opinion, given the moderately concave expiratory flow tracing, decreased FEV1: FVC ratio and mild restrictive abnormality I would state there is a moderately severe obstructive abnormality and a mild restrictive abnormality resulting in a severe decrease in the FEV1. There is no significant improvement after inhaling a single dose of albuterol. The diffusing capacity unadjusted for hemoglobin and carboxyhemoglobin is moderately decreased and normalizes when adjusted for alveolar volume. The rest room air arterial blood gas demonstrates a compensated metabolic alkalosis with PaO2 below the lower limit of normal for the patient's age. In comparison to previous pulmonary function testing on 04/25/2021, the notched expiratory flow tracing persists. There is no longer positive bronchodilator response. There has been a greater than anticipated time dependent decrease in the FVC, FEV1, total lung capacity, functional residual capacity, residual volume and diffusing capacity unadjusted for hemoglobin and carboxyhemoglobin. There has been no significant change in the residual volume: Total lung capacity ratio or diffusing capacity adjusted for alveolar volume. Clinical correlation is recommended.
== END 2024-11-27 12:52 | disposition home or self-care (01) ==
PROVIDERS: PCP Family Medicine; Visit Provider Internal Medicine Critical Care Medicine
DX: J43.9 Emphysema, unspecified (principal); Z99.81 Dependence on supplemental oxygen; R94.2 Abnormal results of pulmonary function studies
CPT/HCPCS: 36600; 82805; 85018; 94060; 94618; 94726; 94729

== ENCOUNTER 2024-12-25 13:04 | Emergency (ER) | payer MEDICARE, SELFPAY ==
--- OUTSIDE RECORDS SUMMARY | 2018-05-13 08:55 | XMS_ITS | Continuity of Care Document ---
Author Organization [facility] Address [address] [place] [address] Phone Care Team Providers Care Chief Construction Inspector Name Role Phone Guerrero Cho MD Unavailable [...] Copied on Encounter OFFICE/OUTPA TIENT VISIT EST [facility], [address] [place] [address], [address], tel:[phone] [facility] Status post reverse total arthroplasty of right shoulderAfter care following right shoulder joint replacement surgery 9 Marquis Masters. [address] [facility] [address] [address], [place], [place], [id number] . tel: [phone] [facility], [address] [place] [address], [address], tel:[phone] [facility] s/p reverse right shoulder (chief complaint) Status post reverse total arthroplasty of right shoulder 8 Marquis Masters. [address], [place], [place], [id number] . tel: [phone] [facility], [address] [place] [address], [address], tel:[phone] [facility] Other specific arthropathies , not elsewhere classified, right shoulder 8 Marquis Masters. [address] [facility] [address], [place], [place], [id number] . tel: [phone] OFFICE/OUTPA TIENT VISIT EST [facility], [address] [place] [address], [address], [phone] [facility] Complete tear of right rotator cuffPrimary osteoarthriti s of right shoulder 0 8 Marquis Masters. [address], [place], [place], [id number] . tel: [phone] OFFICE/OUTPA TIENT VISIT EST [facility], [address] [place] [address], [address], [place] tel:[phone] [facility] [place] RT SHOULDER INJURY 7\ (chief complaint) Body mass index (BMI) 40.0-44.9, adultComplete tear of right rotator cuff 8 Sangita Abhinav. [address] [place] [address], [id number] . tel: [phone] Referring Provider: Juan David Patiño, [address], [place], [address]. tel:[phone] OFFICE/OUTPA TIENT VISIT [facility], [address] [place] [address], [address], [place] tel:[phone] [facility] History of total right hip arthroplasty 8 Sangita La. [address] [place] [address], [id number] . tel: [phone] Referring Provider: Meagan Wren, PERMANENTLY CLOSED [address], [place], [address]. tel:[phone] [facility], [address] [place] [address], [address], [place] tel:[phone] [facility] History of total right hip arthroplasty 7 Sangita La. [address] [place] [address], [id number] . tel: [phone] [facility], [address] [place] [address], [address], [place] tel:[phone] [facility] [place] R YANIRA 11/08/16 (chief complaint) History of total right hip arthroplasty 7 Michael Lemos. [address] [place] [address] [address], [place], [place], [id number] . tel: [phone] [facility], [address] [place] [address], [address], [phone] [facility] R YANIRA 11/08/16 (chief complaint) History of total right hip arthroplasty Sep-0 7 Michael Lemos. [address] [place] [address] [address], [place], [place], [id number] . tel: [phone] [facility], [address] [place] [address], [address], [place] tel:[phone] [facility] No Information Sangita La. [address] [place] [address], [id number] . tel: [phone] OFFICE/OUTPA TIENT VISIT EST [facility], [address] [place] [address], [address], tel:[phone] [facility] Follow Up of after right hip mri (chief complaint) Primary osteoarthriti s of right hipHip abductor tendinitis, right 7 Sangita La. [address] [place] [address], [id number] . tel: [phone] OFFICE/OUTPA TIENT VISIT [facility], [address] [place] [address], [address], [place] [phone] [facility] R hip (chief complaint) Body mass index (BMI) 38.0-38.9, adultPrimary osteoarthriti s of right hipHip abductor tendinitis, right 7 Sangita La. [address] [place] [address], [id number] . tel: [phone] Referring Provider: Kristel Villegas, [address], [place], [address]. tel:[phone] Family History Family Member Type Diagnosis Age At Onset Brother Problem (finding) Alive and well Immunizations Vaccine Date Status Comments Pneumo (2 yrs or older)(PPV) administered Source: Other Provider Payers Payer name Insurance type Covered green party ID Lela gong(s) Medicare E2 OT [id number] [place] Medicare Supplement E2 OT [id number] Social History Type Description Quantity Date [...] safety checklis t for fall hazards provided Weight monitoring Related to Bod y mass index (BMI) 40.0-44.9, adult Immobilize as directed. Related to Complete tear of right rotator cuff Apply ice as tolerated. Related to Complete tear of right rotator cuff Activity as tolerated Related to Complete tear of right rotator cuff Activity as tolerated Related to History of [...] to History of total right hip arthroplasty activity as tolerated Related to Primary osteoarthritis of right hip apply heating pad or ice as tolerated [...]
--- OUTSIDE RECORDS SUMMARY | 2018-05-13 08:55 | XMS_ITS | Continuity of Care Document ---
Author Organization [facility] Address [address] [place] [address] Phone Care Team Providers Care Nuclear Operations Specialist Name Role Phone Guerrero Cho MD Unavailable [...] Copied on Encounter OFFICE/OUTPA TIENT VISIT EST [facility], [address] [place] [address], [address], tel:[phone] [facility] Status post reverse total arthroplasty of right shoulderAfter care following right shoulder joint replacement surgery 9 Marquis Masters. [address] [facility], [place], [place], [id number] . tel: [phone] [facility], [address] [place] [address], [address], tel:[phone] [facility] s/p reverse right shoulder (chief complaint) Status post reverse total arthroplasty of right shoulder 8 Marquis Masters. [address], [place], [place], [id number] . tel: [phone] [facility], [address] [place] [address], [address], tel:[phone] [facility] Other specific arthropathies , not elsewhere classified, right shoulder 8 Marquis Masters. [address] [facility], [place], [place], [id number] . tel: [phone] OFFICE/OUTPA TIENT VISIT EST [facility], [address] [place] [address], [address], [phone] [facility] Complete tear of right rotator cuffPrimary osteoarthriti s of right shoulder 0 8 Marquis Masters. [address], [place], [place], [id number] . tel: [phone] OFFICE/OUTPA TIENT VISIT EST [facility], [address] [place] [address], [address], [place] tel:[phone] [facility] [place] RT SHOULDER INJURY 7\ (chief complaint) Body mass index (BMI) 40.0-44.9, adultComplete tear of right rotator cuff 8 Sangita Abhinav. [address] [place] [address], [id number] . tel: [phone] Referring Provider: Juan David Patiño, [address], [place], [address]. tel:[phone] OFFICE/OUTPA TIENT VISIT [facility], [address] [place] [address], [address], [place] tel:[phone] [facility] History of total right hip arthroplasty 8 Sangita La. [address] [place] [address], [id number] . tel: [phone] Referring Provider: Meagan Wren, PERMANENTLY CLOSED [address] [place], [place], [address]. tel:[phone] [facility], [address] [place] [address], [address], [place] tel:[phone] [facility] History of total right hip arthroplasty 7 Sangita La. [address] [place] [address], [id number] . tel: [phone] [facility], [address] [place] [address], [address], [place] tel:[phone] [facility] [place] R YANIRA 11/08/16 (chief complaint) History of total right hip arthroplasty 7 Michael Lemos. [address] [place] [address] [address], [place], [place], [id number] . tel: [phone] [facility], [address] [place] [address], [address], [phone] [facility] R YANIRA 11/08/16 (chief complaint) History of total right hip arthroplasty Sep-0 7 Michael Lemos. [address] [place] [address] [address], [place], [place], [id number] . tel: [phone] [facility], [address] [place] [address], [address], [place] tel:[phone] [facility] No Information Sangita La. [address] [place] [address], [id number] . tel: [phone] OFFICE/OUTPA TIENT VISIT EST [facility], [address] [place] [address], [address], tel:[phone] [facility] Follow Up of after right hip mri (chief complaint) Primary osteoarthriti s of right hipHip abductor tendinitis, right 7 Sangita La. [address] [place] [address], [id number] . tel: [phone] OFFICE/OUTPA TIENT VISIT [facility], [address] [place] [address], [address], [place] [phone] [facility] R hip (chief complaint) Body mass index (BMI) 38.0-38.9, adultPrimary osteoarthriti s of right hipHip abductor tendinitis, right 7 Sangita La. [address] [place] [address], [id number] . tel: [phone] Referring Provider: Kristel Villegas, [address], [place], [address]. tel:[phone] Family History Family Member Type Diagnosis Age At Onset Brother Problem (finding) Alive and well Immunizations Vaccine Date Status Comments Pneumo (2 yrs or older)(PPV) administered Source: Other Provider Payers Payer name Insurance type Covered green party ID Lela gong(s) Medicare E2 OT [id number] [place] Medicare Supplement E2 OT [id number] 7 Social History Type Description Quantity Date [...]
--- NOTE | ~2024-12-25 | CT_ITS ---
EXAMINATION: CT brain wo con DATE: 12/25/2024 14:16 INDICATION: Fall. TECHNIQUE: Computed tomography (CT) of the head was performed without intravenous contrast. The mA was adjusted according to patient size. Iterative reconstruction technique was employed. The dose-length product was 681.00 mGy-cm. COMPARISON: Head CT 05/12/2024, brain MRI 01/30/2023 FINDINGS: There is mild motion artifact. There are scattered areas of low attenuation in the cerebral white matter, which is within normal limits for the patient's age. There is no intracranial hemorrhage, acute infarction, or abnormal intracranial mass lesion. The ventricles are normal in size. The orbits are normal. There is right frontal scalp soft tissue swelling. There is mucosal thickening in the paranasal sinuses. There is a reconstruction plate involving the medial wall and floor of right orbit. The mastoid air cells are normal. IMPRESSION: 1. Normal aging brain. Reviewed, dictated and finalized at location E. IMPRESSION: 1. Normal aging brain.
--- NOTE | ~2024-12-25 | XR_ITS ---
EXAMINATION: XR chest 2V, 12/25/2024 14:10 CDT HISTORY: fall HIT TO HEAD WITH LOC COMPARISON: No comparisons available. Technique: 2 views obtained. Findings: Small basilar infiltrates. Moderate pulmonary venous congestion. No pneumothorax. Moderate cardiomegaly. Mediastinal and hilar contours are within normal limits. Bony thorax no acute abnormality. Impression: CHF Reviewed, dictated and finalized at location P. Impression: CHF
--- NOTE | ~2024-12-25 | CT_ITS ---
EXAMINATION: CT facial & cervical spine wo DATE: 12/25/2024 14:16 INDICATION: Fall. Head injury. TECHNIQUE: Computed tomography (CT) of the maxillofacial region and cervical spine was performed without intravenous contrast. Automated exposure control and iterative reconstruction technique were employed. The dose-length product was 483.47 mGy-cm. COMPARISON: None FINDINGS: MAXILLOFACIAL CT: There are old blowout fractures of the medial wall and floor of right orbit with a reconstruction plate. There is right frontal scalp soft tissue swelling. There is mucosal thickening in the nasal sinuses. The mastoid air cells are normal. There is rightward deviation of superior nasal septum and leftward deviation of the inferior nasal septum. CERVICAL SPINE CT: There is kyphosis of cervical spine. There is 9 degrees levocurvature of lumbar spine. There is 2 mm anterolisthesis of C3 on C4. Vertebral body heights are normal. There are fractures of the left C1 lateral mass and left anterior arch. There are fractures of the bilateral C1 laminae. There is a fracture of left occipital condyle. There is mildly decreased disc height at C2-C3, moderately decreased disc height at C3-C4, and severely decreased disc height from C4-C5 through C7-T1. There is multilevel severe facet joint osteoarthritis and uncovertebral joint osteophytes. There is mild neural foraminal stenosis at multiple levels on either side. On the left, there is moderate neural foraminal stenosis at C5-C6. There is mild central canal stenosis at C3-C4, C4-C5, C5-C6, C6-C7, and C7-T1. IMPRESSION: 1. Comminuted fracture of C1. 2. Fracture of the left occipital condyle. I discussed these fractures with Annemarie Dudley. 3. Severe cervical spondylosis. Reviewed, dictated and finalized at location E. IMPRESSION: 1. Comminuted fracture of C1. 2. Fracture of the left occipital condyle. I discussed these fractures with Becca Dudley. 3. Severe cervical spondylosis.
--- OUTSIDE RECORDS SUMMARY | 2024-12-25 13:07 | XMS_ITS | Clinical Summary ---
Author Organization [facility] Address [address] [place] [address] Care Team Providers Care Sagger Preparer Name Role Phone Meagan Yusuf MD Primary Care Provider + Annemarie Lea MD Unavailable [phone] Margy Walker MD PhD Unavailable [phone] Geraldine Barbosa NP Unavailable [phone] Allergies Active Allergy Reactions Criticality Noted Date [...] 05/23/2024 Assessment & Plan (05/26/2024 9:50 AM LABORATORY ANALYST): #COPD #TRAVIS, chronic #Chronic hypoxic respiratory [...] 05/23/2024 Assessment & Plan (05/27/2024 11:52 AM LABORATORY ANALYST): 3/ tx out ICU, PT/OT - 05/25: awaiting repeat swallow evaluation, calorie counts - 05/26: Continue Tfs at nightly, Calorie counts. Wean O2 back to home 4L. Not medically ready for discharge. 05/27: Patient is medically stable for discharge, SW/CM updated. Discharge pending facility bed availability Treatment note 05/14 [x] Feeding difficulties 05/22/2024 Assessment & Plan (05/27/2024 11:55 AM LABORATORY ANALYST): SBFT placed by ENT 05/21 TFs [...] NPO, resumed tube feeds, ordered for repeat CAD ADMINISTRATOR evaluation. Recommend up in chair for all meals and 1:1 assistance during meals pending CAD ADMINISTRATOR evaluation. Discussed with patient and nurse to inform provider of any change in clinical exam or vital signs. 05/25: repeat Swallow- regular diet, regular thin liquids assistance with meals, calorie counts ordered, cycle tube feeding over PM MBS (05/27): swallow mechanism is normal Respiratory distress 05/20/2024 Assessment & Plan (05/27/2024 11:55 AM LABORATORY ANALYST): Transferred to SICU 05/18 ON after [...] 05/14/2024 Assessment & Plan (05/15/2024 2:15 PM LABORATORY ANALYST): - Orthostatic vital signs (05/14): negative [...] 05/14/2024 Assessment & Plan (05/14/2024 12:48 PM LABORATORY ANALYST): - Tylenol 1g q6h - Gabapentin 300mg TID - Robaxin 500mg TID PRN - Oxycodone 5mg q4h PRN Closed fracture of distal end of left radius Assessment & Plan (05/27/2024 11:55 AM LABORATORY ANALYST): - Plastics consult - L hand/wrist [...] 05/14/2024 Assessment & Plan (05/25/2024 11:39 AM LABORATORY ANALYST): - Magnesium (05/14): 1.9mg/dL - 05/14: replete Magnesium 2g IV - Magnesium (05/15): 2.0mg/dL - Magnesium (05/20): 2.2mg/dL - Magnesium (05/25): 2.0mg/dL - continue to trend Magnesium Fall, initial encounter 05/13/2024 Assessment & Plan (05/15/2024 10:18 AM LABORATORY ANALYST): Syncopal workup given unclear mechanism (TTE, [...] months Assessment & Plan (05/27/2024 11:52 AM LABORATORY ANALYST): Ophtho c/s ---HOB elevation, open-mouth sneezing, [...] to be tasked with Dr Lea's team. 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 CTM BP and resume home lasix when appropriate. Restless leg syndrome 05/13/2024 Assessment & Plan (05/13/2024 2:32 PM LABORATORY ANALYST): - Continue home ropinrole and pramipexole, gabapentin Mood disorder 05/13/2024 Assessment & Plan (05/13/2024 2:37 PM LABORATORY ANALYST): Continue home zoloft Heart failure with mildly re duced ejection fraction (HFmrEF) 01/15/2024 Assessment & Plan (05/27/2024 11:57 AM LABORATORY ANALYST): #HTN, chronic #HFrEF, chronic #Severe MR #Severe TI #Severe pulmonary hypertension - TTEs as above - Home O2 4L - Follows with [facility] Cardiology - Home Diltiazem, Entresto, Lasix (1/2 dose) and metoprolol continued Persistent atrial fibrillation 02/20/2022 Noncompliance with medicatio n treatment due to intermittent use of medication 12/18/2021 Morbid (severe) obesity due to excess calories 0 07/05/2021 Labile hypertension 03/23/2021 Hypotension due to drugs 03/23/2021 Coronary artery disease invo lving [place] coronary artery of [place] heart without angina pectoris 02/10/2021 Mixed hyperlipidemia 02/10/2021 Chronic obstructive pulmonary disease 02/10/2021 Chronic respiratory failure with hypoxia 021 TRAVIS on CPAP 02/10/2021 Frequent falls 02/10/2021 Resolved Problems Problem Noted Date Diagnosed Date Resolved Date COPD (chronic obstructive pulmonary disease) 5 05/23/2024 Assessment & Plan (05/13/2024 2:35 PM LABORATORY ANALYST): - home meds: albuterol, ipratopium-albuterol Discharge planning issues 05/13/2024 Assessment & Plan (05/18/2024 2:27 PM LABORATORY ANALYST): - 05/14: orthostatic vital signs pending, [...] Encounters Date Type Department Care Team Description 12/14/2024 Telephone [facility] Medicine Otolaryngology [address] [place] [address] Sybil Burgess MS from Last 3 Months Immunizations Immunization Administration Dates Next Due Tdap 05/13/2024 Surgical History Surgery Date Site/Laterality Comments HYSTERECTOMY TOTAL SHOULDER REPLACEMENT Right HIP ARTHROPLASTY Medical History Medical History Date Comments [place], old CHF (congestive heart failure) (HCC) Alcohol [...] on file Legal Sex Female 4:29 PM LABORATORY ANALYST Gender Identity Not on file Sexual Orientation Not on file Obstetrics History Last Filed Vital Signs Vital Sign Reading Time Taken Comments Blood Pressure 104/74 09/01/2024 11:18 AM CDT Pulse 74 09/01/2024 11:18 AM CDT Temperature 37.1 C (98.8 F) 05/27/2024 3:28 PM LABORATORY ANALYST Respiratory Rate 20 05/27/2024 11:49 AM LABORATORY ANALYST Oxygen Saturation 99% 09/01/2024 11:18 AM CDT [...] 3) 04/04/2015 02/07/2015 Covid-19 Vaccine (3 - 2024-2 6 season) 2024 06/15/2020, 05/24/2020 Influenza Vaccine (#1) 2024 , 03/05/2019, 01/28/2018, Additional history exists Fall Risk Assessment 05/27/2025 05/27/2024 DTaP/Tdap/Td Vaccine (3 - Td or Tdap) 05/13/2034 05/13/2024, 12/15/2019 Pneumococcal vaccine 65+ Completed 05/08/2018, 12/24 Medical Devices Implanted Type Area Property Assistant Device Identifier Shelf Expiration Date Model / Serial / Lot Implantech Sheeting Silastic Non Reinforced Alliedsil [id number] Silicone 23-700-40 - [id number] Implanted:Qty: 1 on 05/19/2024 by Annemarie Lea MD at [facility] Other - see comments Right: Face Implantech 07/03/2028 23-700- 40 / / Luis Carlos Craniomaxillofacial Craniomaxillofacial Right 3d Large Implant Orbital Medpor Titan [id number] - [id number] Implanted:Qty: 1 on 05/19/2024 by Annemarie Lea MD at [facility] Other - see comments Right: Face [place] Craniomaxillofacial 08/19/2032 [id number] / / Luis Carlos Craniomaxillofacial 1.2mm 4mm Self Drill Axial Stability Lower Profile Screw Bone [id number] - [id number] Implanted:Qty: 1 on 05/19/2024 by Annemarie Lea MD at [facility] Other - see comments Right: Face Luis Carlos Craniomaxillofacial 56-1290 4 / / Medartis Inc Plt 2.5 Adaptive Ii Trilock Dist Rad Vol L 10h Narrow T2.0 A-4750.101 - [id number] Implanted:Qty: 1 on 05/18/2024 by Margy Walker MD PhD at [facility] Left: Wrist Medartis Inc A-4750. 101 / / Medartis Inc 2.5mm 18mm Lock Cortical Screw Bone A-5750.18 - [id number] Implanted:Qty: 1 on 05/18/2024 by Margy Walker MD PhD at [facility] Left: Wrist Medartis Inc A-5750. 18 / / Medartis Inc 2.5mm 22mm Lock Cortical Screw Bone A-5750.22 - [id number] Implanted:Qty: 2 on 05/18/2024 by Margy Walker MD PhD at [facility] Left: Wrist Medartis Inc A-5750. 22 / / Medartis Inc 2.5mm 20mm Lock Cortical Screw Bone A-5750.20 - [id number] Implanted:Qty: 3 on 05/18/2024 by Margy Walker MD PhD at [facility] Left: Wrist Medartis Inc A-5750. 20 / / Medartis Inc Aptus 2.5mm 14mm Lock Cortical Screw Bone A-5750.14 - [id number] Implanted:Qty: 2 on 05/18/2024 by Margy Walker MD PhD at [facility] Left: Wrist Medartis Inc A-5750. 14 / / Medartis Inc Aptus 2.5mm 14mm Cortical Screw Bone A-5700.14 - [id number] Implanted:Qty: 1 on 05/18/2024 by Margy Walker MD PhD at [facility] Left: Wrist Medartis Inc A-5700. 14 / / Medartis Inc 2.5mm 12mm Lock Cortical Screw Bone A-5750.12 - [id number] Implanted:Qty: 1 on 05/18/2024 by Margy Walker MD PhD at [facility] Left: Wrist Medartis Inc A-5750. 12 / / Explanted Type Area Property Assistant Device Identifier Shelf Expiration Date Model / Serial / Lot Medartis Inc Aptus 2.5mm 16mm Cortical Screw Bone A-5700.16 - [id number] Explanted:Qty: 1 on 05/18/2024 by Margy Walker MD PhD at [facility] Left: Wrist Medartis Inc A-5700 .16 / / Medartis Inc 2.5mm 18mm Lock Cortical Screw Bone A-5750.18 - [id number] Explanted:Qty: 1 on 05/18/2024 at [facility] Left: Wrist Medartis Inc A-5750 .18 / / Insurance MEDICARE MEDICARE [facility] MEDICARE SUPPLEMENT MEDICARE [facility] MEDICARE SUPPLEMENT Advance Directives For more information, please contact: [phone] * Full Code (Latest Code Status on File) Date Activated Date Inactivated Comments 05/13/2024 8:42 PM 05/27/2024 11:27 PM Care Teams Sagger Preparer Relationship Specialty Start Date End Date Meagan Yusuf MD PCP - General Family Medicine 05/22/23 Annemarie Lea MD [address] [place] [address] Consulting Physician Otolaryngology 05/27/24 Margy Walker MD PhD [address] [place] [address] Consulting Physician Plastic Surgery 05/27/24 Geraldine Barbosa NP [address] [place], [place] [id number] Nurse Practitioner Neurosurgery 05/27/24
--- OUTSIDE RECORDS SUMMARY | 2024-12-25 13:07 | XMS_ITS | Encounter Summary ---
Author Organization [employer] Address [address] [place] [address] Care Team Providers Care Housekeeping Room Attendant Name Role Phone Juan David Yusuf MD Primary Care Provider [phone] Encounter Details Date Type Department Care Team (Late st Contact Info) Description 07/14/1999 Outpatient Historical [facility] Isatu Grant MD Social History Tobacco Use Types Packs/Day Years Used Date Smoking Tobacco: Never Assessed Comments Unknown Sex and Gender Information Value Date Recorded Sex Assigned at Not on file Legal Sex Female 3:33 AM GRINDER OPERATOR Gender Identity Not on file Sexual Orientation Not on file documented as of this encounter Plan of Treatment Not on file documented as of this encounter Visit Diagnoses Not on filedocumented in this encounter Care Teams Housekeeping Room Attendant Relationship Specialty Start Date End Date Juan David Yusuf MD PCP - General Family Practice 01/14/18 documented as of this encounter
--- OUTSIDE RECORDS SUMMARY | 2024-12-25 13:07 | XMS_ITS | Encounter Summary ---
Author Organization [facility] Address [address] [place] [address] Care Team Providers Care Reading Coach Name Role Phone Meagan Yusuf MD Primary Care Provider + Meagan Yusuf MD Primary Care Provider + Annemarie Lea MD Unavailable [phone] Margy Walker MD PhD Unavailable [phone] Geraldine Barbosa NP Unavailable [phone] Encounter Details Date Type Department Care Team (Late st Contact Info) Description 01/31/2023 Orders Only [facility] Health Information Management [address] [place] [address] Scanning, Provider Social History Tobacco Use Types Packs/Day Years Used Date Smoking Tobacco: Former Cigarettes Q uit: 2010 Smokeless Tobacco: Never Personal Safety Answer Date Recorded Have you ever been in or are you currently in a harmful physical or emotional relationship or is someone making you feel afraid or unsafe? Denies 05/18/2024 Comments Unknown Sex and Gender Information Value Date Recorded Sex Assigned at Not on file Legal Sex Female 4:29 PM PHYTOPATHOLOGIST Gender Identity Not on file Sexual Orientation Not on file documented as of this encounter Plan of Treatment Not on file documented as of this encounter Procedures Procedure Name Priority Date/Time Associated Diagnosis Comments SCAN - RADIOLOGY/IMAGING 01/31/2023 documented in this encounter Results * SCAN - RADIOLOGY/IMAGING (01/31/2023) Anatomical Region Laterality Modality Other us Provider Scanning Final Result documented in this encounter Visit Diagnoses Not on filedocumented in this encounter Care Teams Reading Coach Relationship Specialty Start Date End Date Meagan Yusuf MD PCP - General Family Medicine 11/04/17 05/21/23 Meagan Yusuf MD PCP - General Family Medicine 05/22/23 Annemarie Lea MD [address] [place] [address] Consulting Physician Otolaryngology 05/27/24 Margy Walker MD PhD [address] [place] [address] Consulting Physician Plastic Surgery 05/27/24 Geraldine Barbosa NP [address] [place] [address] Nurse Practitioner Neurosurgery 05/27/24 documented as of this encounter
--- OUTSIDE RECORDS SUMMARY | 2024-12-25 13:07 | XMS_ITS | Encounter Summary ---
Author Organization [employer] Address [address] [place] [address] Care Team Providers Care Machine Tack Puller Name Role Phone Juan David Yusuf MD Primary Care Provider [phone] Encounter Details Date Type Department Care Team (Late st Contact Info) Description 02/02/1999 Outpatient Historical [facility] Isatu Grant MD Social History Tobacco Use Types Packs/Day Years Used Date Smoking Tobacco: Never Assessed Comments Unknown Sex and Gender Information Value Date Recorded Sex Assigned at Not on file Legal Sex Female 3:33 AM MOLDING ASSOCIATE Gender Identity Not on file Sexual Orientation Not on file documented as of this encounter Plan of Treatment Not on file documented as of this encounter Visit Diagnoses Not on filedocumented in this encounter Care Teams Machine Tack Puller Relationship Specialty Start Date End Date Juan David Yusuf MD PCP - General Family Practice 01/14/18 documented as of this encounter
--- OUTSIDE RECORDS SUMMARY | 2024-12-25 13:07 | XMS_ITS | Encounter Summary ---
Author Organization [employer] Address [address] [place] [address] Care Team Providers Care Credit Negotiator Name Role Phone Juan David Yusuf MD Primary Care Provider [phone] Encounter Details Date Type Department Care Team (Late st Contact Info) Description 04/01/1999 Outpatient Historical [facility] Isatu Grant MD Social History Tobacco Use Types Packs/Day Years Used Date Smoking Tobacco: Never Assessed Comments Unknown Sex and Gender Information Value Date Recorded Sex Assigned at Not on file Legal Sex Female 3:33 AM CARE ATTENDANT Gender Identity Not on file Sexual Orientation Not on file documented as of this encounter Plan of Treatment Not on file documented as of this encounter Visit Diagnoses Not on filedocumented in this encounter Care Teams Credit Negotiator Relationship Specialty Start Date End Date Juan David Yusuf MD PCP - General Family Practice 01/14/18 documented as of this encounter
--- OUTSIDE RECORDS SUMMARY | 2024-12-25 13:07 | XMS_ITS | Clinical Summary ---
Author Organization [facility] Address [address] [place] [address] Phone Care Team Providers Care Mineral Technologist Name Role Phone Juan David Yusuf MD Primary Care Provider [phone] Allergies Active Allergy Reactions Criticality Noted Date [...] 6 Tablets 42 Tablet 01/30/2018 3:41 PM RESIDENT DIRECTOR 8 Active Active Problems Problem Noted Date [...] on file Legal Sex Female 3:33 AM RESIDENT DIRECTOR Gender Identity Not on file Sexual Orientation Not on file Last Filed Vital Signs Vital Sign Reading Time Taken Comments Blood Pressure 123/62 01/30/2018 12:28 PM RESIDENT DIRECTOR Pulse 74 01/30/2018 12:28 PM RESIDENT DIRECTOR Temperature 36.5 C (97.7 F) 01/30/2018 12:28 PM RESIDENT DIRECTOR Respiratory Rate 10 01/30/2018 12:28 PM RESIDENT DIRECTOR Oxygen Saturation 93% 01/30/2018 12:28 PM RESIDENT DIRECTOR Inhaled Oxygen Concentration - - Weight 116.6 kg (257 lb) 01/28/2018 8:16 AM RESIDENT DIRECTOR Height 167.6 cm (5' 6) 01/28/2018 8:16 AM RESIDENT DIRECTOR Body Mass Index 41.48 01/28/2018 8:16 AM RESIDENT DIRECTOR Plan of Treatment Health Maintenance Due Date Last Done Comments DTAP/TDAP/TD VACCINES (1 - Tdap) 12/21/1966 PNEUMOCOCCAL VACCINE 50+ YEARS (1 of 2 - PCV) 12/21/18 67 ZOSTER VACCINE (1 of 2) 12/21/1997 OSTEOPOROSIS SCREENING 12/21/2012 RSV VACCINE (60+ or ) (1 - 1-dose 75+ series) 12/21/2022 INFLUENZA VACCINE (#1) 2024 01/28/2018 Medical Devices Implanted Type Area Senior Principal Device Identifier Shelf Expiration Date Model / Serial / Lot Shell Ringlc+ Pc 54mm [id number] - [id number] Implanted:Qty: 1 on 11/08/2016 by Abhinav Quesada MD at [facility] Hip Right: Hip BIOM[employer] INC [id number] 09/27/2026 [id number] / / [id number] Liner Arcomxl Rnglc Sz24 Xl-[id number] - [id number] Implanted:Qty: 1 on 11/08/2016 by Abhinav Quesada MD at [facility] Hip Right: Hip [employer] [id number] 10/01/2020 XL-[id number] / / [id number] Stem Fem Echo Bmtrc Por Red Lat [id number] - [id number] Implanted:Qty: 1 on 11/08/2016 by Abhinav Quesada MD at [facility] Hip Right: Hip [employer] [id number] 04/11/2025 [id number] / / [id number] Head Modular Noskt 36mm -3mm [id number] - [id number] Implanted:Qty: 1 on 11/08/2016 by Abhinav Quesada MD at [facility] Hip Right: Hip [employer] [id number] 09/25/2026 [id number] / / [id number] Rsp Glenoid Head W Retaining Screw Neutral Sz 32mm Implanted:Qty: 1 on 01/27/2018 by Guerrero Cho MD at [facility] Other Right: Shoulder [employer] 12/05/2023 508-32-10 1 / / [id number] Small Socket Insert 32mm Semi Constrained E Plus Implanted:Qty: 1 on 01/27/2018 by Guerrero Cho MD at [facility] Other Right: Shoulder [employer] 11/29/2022 509-03-03 2 / / [id number] Humeral Stem Small Shell [id number] Implanted:Qty: 1 on 01/27/2018 by Guerrero Cho MD at [facility] Other Right: Shoulder [employer] 11/22/2023 533-10-10 8 / / [id number] Description:All DJO Surgical shoulder components are processed on requisition,[id number]. Rsp Glenoid Baseplate Implanted:Qty: 1 on 01/27/2018 by Guerrero Cho MD at [facility] Screw Right: Shoulder [employer] [id number] 10/23/2023 508-32-20 4 / / [id number] Rsp Bone Screw Locking Sz 5.0mm 30mm Long Implanted:Qty: 1 on 01/27/2018 by Guerrero Cho MD at [facility] Screw Right: Shoulder [employer] 06/25/2023 506-03- 0 / / [id number] Rsp Bone Screw Locking Sz 5.0mm 22 Mm Long Implanted:Qty: 1 on 01/27/2018 by Guerrero Cho MD at [facility] Screw Right: Shoulder [employer] 08/17/2023 506-12 2 / / [id number] Bone Screw Rsp5.0x26mm Long Implanted:Qty: 1 on 01/27/2018 by Guerrero Cho MD at [facility] Screw Right: Shoulder [employer] 6 / / Rsp Bone Screw- Locking Implanted:Qty: 1 on 01/27/2018 by Guerrero Cho MD at [facility] Right: Shoulder [employer] 11/01/2023 506-03-11 [id number] Insurance MEDICARE PART A AND B BCBS SUPP RX [employer] Medicare Part D RX [facility] Medicare Part D Advance Directives For more information, please contact: [phone] Documents on File Type Date Recorded Patient Cloth Handler Expl anation Advance Directive POA 02/04/2018 1:58 [...] 6:44 AM 11/08/2016 7:30 AM Care Teams Mineral Technologist Relationship Specialty Start Date End Date Juan David Yusuf MD PCP - General Family Practice 01/14/18
--- OUTSIDE RECORDS SUMMARY | 2024-12-25 13:07 | XMS_ITS | Encounter Summary ---
Author Organization [facility] Healthcare Address [address] [place] [address] Care Team Providers Care Fingerprint Clerk Name Role Phone Meagan Yusuf MD Primary Care Provider + Annemarie Lea MD Unavailable [phone] Margy Walker MD PhD Unavailable [phone] Geraldine Barbosa NP Unavailable [phone] Encounter Details Date Type Department Care Team (Late st Contact Info) Description 08/18/2024 [place] Only [facility] [place] [address] [place] [id number] Scanning, Provider Social History Tobacco Use [...] on file Legal Sex Female 4:29 PM COMMUNITY INTEGRATION SPECIALIST Gender Identity Not on file Sexual [...] on filedocumented in this encounter Care Teams Fingerprint Clerk Relationship Specialty Start Date End Date Meagan Yusuf MD PCP - General Family Medicine 05/22/23 Annemarie Lea MD [address] [place] [address] Consulting Physician Otolaryngology 05/27/24 Margy Walker MD PhD [address] [place] [address] Consulting Physician Plastic Surgery 05/27/24 Geraldine Barbosa NP [address] [place] [address] Nurse Practitioner Neurosurgery 05/27/24 documented as of this encounter
--- OUTSIDE RECORDS SUMMARY | 2024-12-25 13:07 | XMS_ITS | Patient Health Record ---
Author Organization [facility] Address [address] [facility] [facility] [address] [place]. [address] [place] [id number] Care Team Providers Care Fax Machine Repairer Name Role Phone Juanita BROWN, Bradley Primary Care Provider Unavailabl e Reason For Referral No Information Plan Of Treatment No Information Insurance Providers Payer Name Payer Address Payer Phone Subscriber Number Group Number Insured Name Patient Relationship to Insured Coverage Start Date Coverage End Date [facility] [employer] E2 [address] [address] [place] [phone] [id number] Ping Waller Self - patient is the insured
[2024-12-25 13:15] VITALS: BP 131/84; PULSE 106; RESP 14; TEMP 36.8; O2SAT 96
[2024-12-25 13:25] VITALS: BP 131/84; PULSE 90; RESP 14; TEMP 37; O2SAT 97
--- NOTE | 2024-12-25 13:41 | ECG_ITS ---
Test Date: 2024-12-25 14:29:19 Measurements Intervals [place] Rate: 83 P: 0 MI: 0 QRS: 107 QRSD: 100 T: -12 QT: 343 QTc: 404 Interpretive Statements ATRIAL FIBRILLATION RIGHT AXIS DEVIATION LOW QRS VOLTAGE IN PRECORDIAL LEADS POSSIBLE ANTERIOR MYOCARDIAL INFARCTION , PROBABLY OLD BORDERLINE ST-T WAVE ABNORMALITY- ANTEROLAT/INF LEADS BASELINE ARTIFACT- II, III ABNORMAL ECG Compared to ECG 08/12/2024 21:02:11 NO SIGNIFICANT CHANGE Electronically Signed On 12-25-2024 15:36:56 CDT by Brian Anderson D.O.
--- NOTE | 2024-12-25 13:45 | ED.HEATRA ---
HPI - Head Injury General Chief complaint: Head Injury <ZOHREH Whelan Last Filed: 12/25/24 16:07> Stated complaint: fall, head injury <ZOHREH Whelan Last Filed: 12/25/24 16:07> Time Seen by Provider: 12/25/24 13:14 <ZOHREH Whelan Last Filed: 12/25/24 16:07> Source: patient <ZOHREH Whelan Last Filed: 12/25/24 16:07> Mode of arrival: wheelchair <ZOHREH Whelan Last Filed: 12/25/24 16:07> Limitations: other (poor historian) <ZOHREH Whelan Last Filed: 12/25/24 16:07> History of Present Illness HPI Narrative: This is a 79 year old female that presents to the ER for a fall with head injury. Patient believes she fell asleep on the toilet. Fell off and hit her head. She reports she falls asleep very easily. Denies vision changes, vomiting, numbness, weakness. No other injuries or focal areas of pain. <Annemarie Dudley PA-C - Last Filed: 12/25/24 16:07> Related Data Home medications: Home Medications ?Medication ?Instructions ?Recorded ?Confirmed ?Last Taken ?Type acetaminophen 500 mg capsule 1,000 mg PO Q6H 05/27/24 08/18/24 Unknown History cholecalciferol (vitamin D3) 25 2,000 unit PO DAILY 05/27/24 08/18/24 Unknown History mcg (1,000 unit) tablet polyethylene glycol 3350 17 17 g PO DAILY 05/27/24 08/18/24 Unknown History gram/dose oral powder albuterol sulfate 2.5 mg/3 mL 2.5 mg inhalation Q4-6H PRN 07/20/24 08/18/24 Unknown History (0.083 %) solution for nebulization metolazone 2.5 mg tablet 2.5 mg PO DAILY 12/10/24 Unknown History <ZOHREH Whelan Last Filed: 12/25/24 16:07> Allergies/Adverse reactions: Allergies Allergy/AdvReac Type Severity Reaction Status Date / Time Penicillins Allergy Mild Rash Verified 12/25/24 13:27 thiopental (From Pentothal) AdvReac Intermediate Nausea and Verified 12/25/24 13:27 Vomiting <Annemarie Dudley PA-C - Last Filed: 12/25/24 16:07> Review of Systems Review of Systems: All systems reviewed & are unremarkable except as noted in HPI and below <Annemarie Dudley PA-C - Last Filed: 12/25/24 16:07> [facility] Past Medical History Medical History: Medical History COVID-19 Acute on chronic respiratory failure with hypoxia and hypercapnia Orbital floor (blow-out) closed fracture Intraparenchymal hematoma of brain due to trauma Closed fracture of distal end of left radius Hemarthrosis of knee, left Degenerative joint disease of knee Patellar bursitis of left knee Left knee pain Acute hypoxic respiratory failure Atrial fibrillation with RVR Has-bled: high risk Prepatellar bursitis, left knee UTI (urinary tract infection) Hematoma and contusion Periorbital hematoma of both eyes Hypotension Contusion of face Acute kidney injury superimposed on CKD Acute on chronic respiratory failure with hypoxia and hypercapnia Alcohol dependence Left shoulder pain Azotemia Acute exacerbation of CHF (congestive heart failure) Hypertensive urgency NSTEMI (non-ST elevated myocardial infarction) Hyperglycemia Elevated troponin level CHF exacerbation Chronic respiratory failure with hypoxia Pulmonary hypertension Restless leg syndrome Ulcerative colitis 2018 colonoscopy negative (cologuard +). COVID-19 Peripheral neuropathy Lung nodules 09/2018: stable R apex nodule/ multiple other nodules/emphysema LDCT: stable Alcohol abuse Cervical disc disorder with radiculopathy of cervicothoracic region Murmur, cardiac Nicotine dependence, unspecified, in remission 40 pack year/ quit 2009 LDCT emphysema, multiple nodules Postmenopausal Chronic depression Continuous leakage of urine Mixed hyperlipidemia Primary osteoarthritis of right hip Pulmonary HTN RLS (restless legs syndrome) Oxygen dependent <Annemarie Dudley PA-C - Last Filed: 12/25/24 16:07> Surgical History Surgical History: Surgical History History of hysterectomy History of total right hip arthroplasty History of total replacement of right shoulder joint History of appendectomy History of carpal tunnel surgery of left wrist (03/02/20) <Annemarie Dudley PA-C - Last Filed: 12/25/24 16:07> Family History Family History: Family History Mother Family history of osteoporosis Family history of mental disorder Family history of anemia Family history of arthritis Family history of malignant neoplasm Family history of Alzheimer's disease Patient's mother is Sibling Family history of malignant neoplasm of uterus Family history of malignant neoplasm of cervix Patient's sister is Daughter Crohn disease Other Cerebrovascular accident Family history of cardiovascular disease Family history of glaucoma <Annemarie Dudley PA-C - Last Filed: 12/25/24 16:07> Social History Social History: Social History Social History: Surrogate decision maker: Shantal Pond, daughter. Code status: Full code. Smoking packs per day: 1 Smoking cigarettes per day: 20.0 Years smoked: 50 Smoking pack-years: 50.00 Smoking status: Former smoker Tobacco type: cigarettes Second hand tobacco smoke exposure: Yes Smoking end date: 03/25/11 Alcohol intake: never Substance use: never Substance use type: does not use Do You Feel Safe in your Home?: Yes Lack of Transportation: YES Lack of Food: Never True Current Housing: I Have Housing Concerned About Future Housing: No Difficulty Paying Gas/Electric Bills: No Difficulty Paying for Meds: No Currently Unemployed: No Education: High School Diploma/GED Difficulty w/ Childcare or Family Care: No Living arrangements: alone Additional living arrangements comments: The patient lives in her own home in [place]. Additional occupation/education comments: Retired. Spiritual care concerns: No <Annemarie Dudley PA-C - Last Filed: 12/25/24 16:07> Exam Narrative: GENERAL: Well-appearing, well-nourished, and in no acute distress. HEAD: Normocephalic. Contusion of the right forehead EYES: PERRLA and EOMI. ENT: Nares clear, no rhinorrhea or epistaxis. Mucous membranes moist. Oropharynx without tonsillar hypertrophy exudate or other lesions. Bilateral TMs pearly neely non-bulging NECK: Supple. No adenopathy or masses. C collar in place CHEST: Clear to auscultation. No respiratory distress. No wheezes rales or rhonchi HEART: Regular rate and rhythm. No murmur heard. Normal peripheral pulses. EXTREMITIES: Normal range of motion. No edema or obvious deformity. Strength equal in bilateral upper and lower extremities (5/5) SKIN: Warm, dry, no rash. NEURO: No focal deficits. Alert and oriented x3. CN II-XII grossly intact PSYCH: Normal mood and affect <Annemarie Dudley PA-C - Last Filed: 12/25/24 16:07> Course Course Emergency Course: Patient and family updated on workup and need for transfer for higher level of care <Annemarie Dudley PA-C - Last Filed: 12/25/24 16:07> RAILROAD DISPATCHER/PA Physician Supervision This visit was performed by both a physician and an APC. I performed all aspects of the MDM as documented. <Naveen Rodriguez MD - Last Filed: 12/25/24 21:40> Consultations Consultation #1: Spoke with Dr. Delgado about patient and workup who accepts patient as transfer to [facility] <Annemarie Dudley PA-C - Last Filed: 12/25/24 16:07> Date: 12/25/24 <Annemarie Dudley PA-C - Last Filed: 12/25/24 16:07> Vital Signs Vital signs: Vital Signs Temperature 98.2 F 12/25/24 13:15 Pulse Rate 106 H 12/25/24 13:15 Respiratory Rate 14 12/25/24 13:15 Blood Pressure 131/84 12/25/24 13:15 Pulse Oximetry 96 12/25/24 13:15 Oxygen Delivery Nasal Cannula 12/25/24 13:15 Oxygen Flow Rate 3 12/25/24 13:15 Temperature 98.6 F 12/25/24 13:25 Pulse Rate 88 12/25/24 16:19 Respiratory Rate 14 12/25/24 16:19 Blood Pressure 139/92 H 12/25/24 16:19 Pulse Oximetry 100 12/25/24 16:19 Oxygen Delivery Nasal Cannula 12/25/24 13:15 Oxygen Flow Rate 3 12/25/24 13:15 <Annemarie Dudley PA-C - Last Filed: 12/25/24 16:07> Vital Signs Temperature 98.2 F 12/25/24 13:15 Pulse Rate 106 H 12/25/24 13:15 Respiratory Rate 14 12/25/24 13:15 Blood Pressure 131/84 12/25/24 13:15 Pulse Oximetry 96 12/25/24 13:15 Oxygen Delivery Nasal Cannula 12/25/24 13:15 Oxygen Flow Rate 3 12/25/24 13:15 Temperature 98.6 F 12/25/24 13:25 Pulse Rate 88 12/25/24 16:19 Respiratory Rate 14 12/25/24 16:19 Blood Pressure 139/92 H 12/25/24 16:19 Pulse Oximetry 100 12/25/24 16:19 Oxygen Delivery Nasal Cannula 12/25/24 13:15 Oxygen Flow Rate 3 12/25/24 13:15 <Naveen Rodriguez MD - Last Filed: 12/25/24 21:40> MDM - Head Injury MDM Narrative Medical decision making narrative: Patient presents the emergency department after a fall today with head injury. Reporting neck pain. She is neurologically intact. Her vitals are stable. Cbc without leukocytosis. Metabolic panel with mild hypokalemia. EKG without acute ST changes, baseline troponin is negative. CT brain without acute findings. CT cervical spine showing comminuted fracture of C1, fracture of the left occipital condyle. Patient and family updated on workup and need for transfer for higher level of care. Spoke with Dr. Delgado about patient and workup who accepts patient as transfer to [facility] <Annemarie Dudley PA-C - Last Filed: 12/25/24 16:07> Differential Diagnosis Differential diagnosis: Likely concussion without loss of consciousness, closed head injury, subdural hematoma, concussion with loss of consciousness and other (Cervical spine fracture) <Annemarie Dudley PA-C - Last Filed: 12/25/24 16:07> Lab Data Attestation: I reviewed the patient's lab results. <Annemarie Dudley PA-C - Last Filed: 12/25/24 16:07> Result diagrams: 12/25/24 13:48 12/25/24 13:48 <Annemarie Dudley PA-C - Last Filed: 12/25/24 16:07> Labs: Lab Results 12/25/24 12/25/24 Range/Units 13:48 13:48 WBC 7.2 (4.5-10.0) K/mm3 RBC 4.17 L (4.2-5.4) M/mm3 Hgb 12.3 (12.0-15.0) g/dL Hct 39.3 (37.0-47.0) % MCV 94.2 (80-100) fl MCH 29.5 (26-34) pg MCHC 31.3 L (32-36) g/dl RDW 13.7 (11.5-14.5) % Plt Count 160 (150-375) k/mm3 MPV 10.2 (7.4-10.4) fl Immature Gran % (Auto) 0.4 (0-0.5) % Neut % (Auto) 81.0 H (45.5-73.1) % Lymph % (Auto) 11.3 L (18.3-44.2) % [place] % (Auto) 5.3 (2.6-8.5) % Eos % (Auto) 1.7 (0-4.4) % Baso % (Auto) 0.3 (0.2-1.2) % Lymph # (Auto) 0.81 L (0.9-3.2) K/mm3 [place] # (Auto) 0.4 (0.1-0.6) K/mm3 Eos # (Auto) 0.1 (0-0.3) K/mm3 Baso # (Auto) 0.0 (0.0-0.1) K/mm3 Abs Immat Gran (auto) 0.03 (0.00-0.031) K/mm3 Absolute Neuts (auto) 5.8 (1.3-6.7) K/mm3 Absolute Nucleated RBC 0.000 (0.0-0.012) K/mm3 Nucleated RBC % 0.0 (0.0-0.2) % Sodium 139 (137-145) mmol/L Potassium 3.0 L (3.4-5.0) mmol/L Chloride 88 L (98-107) mmol/L Carbon Dioxide > 40 H (22-30) mmol/L Anion Gap (4-12) mmol/L BUN 38 H D (7-17) mg/dL Creatinine 0.83 (0.7-1.0) mg/dL Estim Creat Clear Calc 56 ml/min Estimated GFR > 60 (59 - ) Glucose 118 H (65-110) mg/dL Calcium 9.2 (8.4-10.2) mg/dL Magnesium 1.7 Cancelled (1.6-2.3) mg/dL Total Bilirubin 1.9 H (0.2-1.3) mg/dL AST 41 H (14-36) U/L ALT 22 (6-35) U/L Alkaline Phosphatase 58 (38-126) U/L Troponin I < 0.012 (0.000-0.034) ng/mL Total Protein 7.5 (6.3-8.2) g/dL Albumin 4.1 (3.5-5.1) g/dL <Annemarie Dudley PA-C - Last Filed: 12/25/24 16:07> Lab Results 12/25/24 12/25/24 Range/Units 13:48 13:48 WBC 7.2 (4.5-10.0) K/mm3 RBC 4.17 L (4.2-5.4) M/mm3 Hgb 12.3 (12.0-15.0) g/dL Hct 39.3 (37.0-47.0) % MCV 94.2 (80-100) fl MCH 29.5 (26-34) pg MCHC 31.3 L (32-36) g/dl RDW 13.7 (11.5-14.5) % Plt Count 160 (150-375) k/mm3 MPV 10.2 (7.4-10.4) fl Immature Gran % (Auto) 0.4 (0-0.5) % Neut % (Auto) 81.0 H (45.5-73.1) % Lymph % (Auto) 11.3 L (18.3-44.2) % [place] % (Auto) 5.3 (2.6-8.5) % Eos % (Auto) 1.7 (0-4.4) % Baso % (Auto) 0.3 (0.2-1.2) % Lymph # (Auto) 0.81 L (0.9-3.2) K/mm3 [place] # (Auto) 0.4 (0.1-0.6) K/mm3 Eos # (Auto) 0.1 (0-0.3) K/mm3 Baso # (Auto) 0.0 (0.0-0.1) K/mm3 Abs Immat Gran (auto) 0.03 (0.00-0.031) K/mm3 Absolute Neuts (auto) 5.8 (1.3-6.7) K/mm3 Absolute Nucleated RBC 0.000 (0.0-0.012) K/mm3 Nucleated RBC % 0.0 (0.0-0.2) % Sodium 139 (137-145) mmol/L Potassium 3.0 L (3.4-5.0) mmol/L Chloride 88 L (98-107) mmol/L Carbon Dioxide > 40 H (22-30) mmol/L Anion Gap (4-12) mmol/L BUN 38 H D (7-17) mg/dL Creatinine 0.83 (0.7-1.0) mg/dL Estim Creat Clear Calc 56 ml/min Estimated GFR > 60 (59 - ) Glucose 118 H (65-110) mg/dL Calcium 9.2 (8.4-10.2) mg/dL Magnesium 1.7 Cancelled (1.6-2.3) mg/dL Total Bilirubin 1.9 H (0.2-1.3) mg/dL AST 41 H (14-36) U/L ALT 22 (6-35) U/L Alkaline Phosphatase 58 (38-126) U/L Troponin I < 0.012 (0.000-0.034) ng/mL Total Protein 7.5 (6.3-8.2) g/dL Albumin 4.1 (3.5-5.1) g/dL <Naveen Rodriguez MD - Last Filed: 12/25/24 21:40> Imaging Data Radiologist's impression: ITS Impressions Head CT 12/25/24 14:19 IMPRESSION: 1. Normal aging brain. ADDENDUM: 12/25/24 [id number] There is a comminuted fracture of C1. There is a fracture of the left occipital condyle. Head/Cervical Spine/Facial Bones CT 12/25/24 14:23 IMPRESSION: 1. Comminuted fracture of C1. 2. Fracture of the left occipital condyle. I discussed these fractures with Annemarie Dudley. 3. Severe cervical spondylosis. Chest X-Ray 12/25/24 14:36 Impression: CHF <ZOHREH Whelan Last Filed: 12/25/24 16:07> ECG Data EKG #1: ECG completion date: 12/25/24 <ZOHREH Whelan Last Filed: 12/25/24 16:07> EKG Interpretation: normal rate, atrial fibrillation, no ST changes and normal QT <ZOHREH Whelan Last Filed: 12/25/24 16:07> Critical Care Time Critical Care Time Critical Care Time: No <ZOHREH Whelan Last Filed: 12/25/24 16:07> Discharge Plan Discharge Clinical Impression: Closed cervical spine fracture Qualifiers: Encounter type: initial encounter Cervical vertebra fracture level: C1 Fracture morphology: unspecified fracture morphology Fracture alignment: displaced Qualified Code(s): S12.000A - Unspecified displaced fracture of first cervical vertebra, initial encounter for closed fracture <Annemarie Dudley PA-C - Last Filed: 12/25/24 16:07> Patient Disposition: Acute Care Hospital <ZOHREH Whelan Last Filed: 12/25/24 16:07> Condition: Serious <ZOHREH Whelan Last Filed: 12/25/24 16:07> Patient Language: Moldovan <ZOHREH Whelan Last Filed: 12/25/24 16:07> Prescriptions: No Action albuterol sulfate 2.5 mg /3 mL (0.083 %) solution for nebulization 2.5 mg inhalation Q4-6H PRN metoprolol tartrate 25 mg tablet 25 mg PO Q12HR Qty: 180 3RF (DME) portable oxygen See Rx Instructions .Route .MEDSUPPLY Qty: 1 0RF Rx Instructions: portable oxygen capable of continuous flow 4 liters by nasal cannula famotidine 20 mg Tablet 20 mg PO Q12HR Qty: 30 0RF cyanocobalamin (vitamin B-12) [Vitamin B-12] 1,000 mcg tablet 1,000 mcg PO QAM 90 Days Qty: 90 3RF pramipexole 1 mg tablet 1 mg PO HS Qty: 90 3RF folic acid 1 mg tablet 1 mg PO DAILY Qty: 90 3RF sertraline 100 mg tablet See Rx Instructions .ROUTE .COMPLEX Qty: 90 0RF Dose Instruction: TAKE 1 TABLET(100 MG) BY MOUTH EVERY MORNING Rx Instructions: TAKE 1 TABLET(100 MG) BY MOUTH EVERY MORNING gabapentin 300 mg capsule See Rx Instructions .ROUTE .COMPLEX Qty: 90 5RF Dose Instruction: TAKE 1 CAPSULE BY MOUTH THREE TIMES DAILY Rx Instructions: TAKE 1 CAPSULE BY MOUTH THREE TIMES DAILY ropinirole 0.5 mg tablet 0.5 mg PO TID Qty: 270 1RF potassium chloride [K-Tab] 20 mEq tablet extended release 20 meq PO TID Qty: 270 3RF rosuvastatin 20 mg tablet 20 mg PO DAILY Qty: 90 1RF balsalazide 750 mg capsule See Rx Instructions .ROUTE .COMPLEX Qty: 810 1RF Dose Instruction: TAKE 3 CAPSULES BY MOUTH THREE TIMES DAILY Rx Instructions: TAKE 3 CAPSULES BY MOUTH THREE TIMES DAILY bumetanide 1 mg tablet 2 mg PO DAILY Qty: 180 2RF metolazone 2.5 mg tablet 2.5 mg PO DAILY diltiazem HCl 60 mg tablet 30 mg PO TID Qty: 90 0RF acetaminophen 500 mg capsule 1,000 mg PO Q6H cholecalciferol (vitamin D3) 25 mcg (1,000 unit) tablet 2,000 unit PO DAILY polyethylene glycol 3350 17 gram/dose powder 17 g PO DAILY Trelegy Ellipta 100-62.5-25 mcg Blister With Device 1 inh inhalation DAILYRT Qty: 0 0RF <Annemarie Dudley PA-C - Last Filed: 12/25/24 16:07> Follow-up/Referrals: Meagan Yusuf MD [Primary Care Provider, Family Practice] <Annemarie Dudley PA-C - Last Filed: 12/25/24 16:07>
[2024-12-25 14:03] LABS: Hematocrit 39.3 % (37.0-47.0); Hemoglobin 12.3 g/dL (12.0-15.0); Immature Granulocyte Percent A 0.4 % (0-0.5); Lymphocytes Absolute Auto 0.81 K/mm3 (0.9-3.2); Mean Corpuscular HGB Conc 31.3 g/dl (32-36); Mean Corpuscular Hemoglobin 29.5 pg (26-34); Mean Corpuscular Volume 94.2 fl (80-100); Nucleated Red Blood Cells Absolute Auto 0.000 K/mm3 (0.0-0.012); Nucleated Red Blood Cells Perc 0.0 % (0.0-0.2); Platelet Count Result 160 k/mm3 (150-375); Red Blood Count 4.17 M/mm3 (4.2-5.4); White Blood Count 7.2 K/mm3 (4.5-10.0)
[2024-12-25 14:18] LABS: Alanine Aminotransferase 22 U/L (6-35); Albumin Level 4.1 g/dL (3.5-5.1); Alkaline Phosphatase 58 U/L (38-126); Aspartate Amino Transferase 41 U/L (14-36); Bilirubin,Total 1.9 mg/dL (0.2-1.3); Blood Urea Nitrogen 38 mg/dL (7-17); Calcium 9.2 mg/dL (8.4-10.2); Chloride 88 mmol/L (98-107); Estimated CRCL calculation 56 ml/min; Estimated Glomerular Filt Rate > 60; Glucose 118 mg/dL (65-110); Magnesium 1.7 mg/dL (1.6-2.3); Potassium 3.0 mmol/L (3.4-5.0); Sodium 139 mmol/L (137-145); Total Protein 7.5 g/dL (6.3-8.2)
--- NOTE | 2024-12-25 14:19 | PC.NURSE ---
ekg not obtained at this time due to pt being in CT scan and XRAY.
[2024-12-25 14:23] LABS: Carbon Dioxide > 40 mmol/L (22-30)
[2024-12-25 14:30] LABS: Troponin I < 0.012 ng/mL (0.000-0.034)
--- OUTSIDE RECORDS SUMMARY | 2024-12-25 14:54 | XMS_ITS | Data Portability ---
Author Organization [place] - [facility] OFFICE Address [address] [place] [address] Care Team Providers Care Demand Planner Name Role Phone JUAN DAVID PAVON Primary [...] current medications, and medical follow-up as noted. [email or web address] Not available 10/26/2020 14:30:27 11/09/2020 11/09/2020 Discussed [...] Not available 17:10:42 electrocard iogram 2020 021 [email or web address] Not available 14:35:30 Medication Orders rosuvastati n 40 mg tablet 2020 021 [facility]98416, [address], [place], [id number], 12:58:37 lisinopril 5 mg tablet 2020 [facility] #49571, [address], [place], [id number], 12:58:39 spironolact one 25 mg tablet 2020 [facility] #59331, [address], [place], [id number], 12:58:59 aspirin 81 mg tablet,lamont yed release 2020 [facility] #22948, [address] [place] [address], [id number], 14:35:37 clopidogrel 75 mg tablet 2020 [facility] #38268, [address], [place], [id number], 14:35:38 rosuvastati n 20 mg tablet 2020 [facility] #50280, [address], [place], [id number], 14:35:39 metoprolol succinate ER 25 mg tablet,exte nded release 24 hr 2020 [facility] #87204, [address], [place], [id number], 14:35:39 potassium chloride ER 20 mEq tablet,exte nded release 2020 [facility] #73475, [address], [place], [id number], 14:35:37 furosemide 40 mg tablet 2020 021 [facility] #88425, [address], [place], [id number], 14:35:38 Patient TargetsNo targets recorded. Patient Instructions Encounter Date Encounter Id Patient Instructions Last Modified By Organization Details Last Modified Time 10/26/2020 [id number] high cholesterol : care instructions [email or web address] Not available 10/26/2020 14:35:29 When You Want to Lose Weight: Care Instructions [email or web address] Not available 10/26/2020 14:35:30 sleep apnea: car e instructions [email or web address] Not available 10/26/2020 14:35:30 high blood pressure: care instructions [email or web address] Not available 10/26/2020 14:35:30 learning about high blood pressure [email or web address] Not available 10/26/2020 14:35:30 11/09/2020 [id number] high cholesterol : care instructions [email or web address] Not available 11/09/2020 12:58:27 When You Want to Lose Weight: Care Instructions [email or web address] Not available 11/09/2020 12:58:27 sleep apnea: car e instructions [email or web address] Not available 11/09/2020 12:58:27 high blood pressure: care instructions [email or web address] Not available 11/09/2020 12:58:27 learning about high blood pressure [email or web address] Not available 11/09/2020 12:58:27 Reason for Referral None Reported. Results Created Date Observation Date Name Description Value Unit Range Abnormal Flag Note LastModifiedBy Organization Detail LastModifiedTime 10/26/19 21 elect rocar diogr am No observ ation record ed. [email or web address] Sharif Bustamante MD [address] [facility] [address], [place], [address], 10/26/2020 14:26:29 10/28/19 21 10/01/2020 US, doppl er, venou s No observ ation record ed. Not Available 10/27 11:43:01 10/28/19 21 09/30/2020 [...] [facility] [address], [place], [address], 12/05/2020 17:10:42 11/17/19 21 10/26/2020 elect rocar diogr am No observ ation record ed. Not Available 11/18 13:56:02 Result Notes Documentation Provider Name and Address Organization Details Recorded Time Lipid Panel, Blood : 10/28/20:Na 137,K 3.9,Cl 102,Co2 30,Glu 94,Bun 18,Cr 0.7,AST 33,ALT 11. 10/28/20:TC 190,TG 79,HDL 87,LDL 83. 10/28/20:WBC 5.4,RBC 3.83,HGB 11.4,HCT 36.7,PLT 108. Dominic Rodriguez [place], [place] - [facility] 11/14/2020 16:16:49 Lipid Panel, Blood : 10/28/20:Na 137,K 3.9,CL 102,CO2 30,Glu 94,Bun 18,Cr 0.7,AST 33,ALT 11. 10/28/20:TC 190,TG 79,HDL 87,LDL pending. Dominic Rodriguez kayleen [facility] 01/24/2021 13:55:17 Problems Name Problem SNOMED Code Status Onset Date Resolution Date Notes Provider Name and Address Organization Details Recorded Time Heart failure with reduced ejection fraction 743821586 Active 2020 Desmond Dotymarlene beyer [facility] 13:41:26 Essential hypertension 45503111 Active 2020 [facility] 13:48:17 Hyperlipidemia 13029859 [facility] 13:48:29 Obstructive sleep apnea syndrome 01857907 Active 2020 Desmond Brioneshmmarlene beyer [facility] 13:48:37 Subsequent non-ST segment elevation myocardial infarction 250335791 Active 2020 Desmond Dotymarlene beyer [facility] 13:59:24 Obesity 834622111 Active 2020 [facility] 14:26:10 Problem Notes None recorded. Medical Equipment [...] Not Available Not Available [employer] Ger[facility] [address] [place] active Not Available Not Available Not Available Vitals Date Recorded Body height Body mass index (BMI) Body weight Heart rate Respiratory rate Oxygen saturation Oxygen saturation in Arterial blood by Pulse oximetry Systolic And Diastolic Provider Name and Address Organization Details Last Updated DateTime 1 162.56 cm 42.6 kg/m2 898924. 91 g 70 /min 16 /min 92 % 92 % 114/82 mm[Hg] Juan David Jarquin [facility] 1 13:04:20 Date Recorded Body height Body mass index (BMI) Body weight Heart rate Oxygen saturation Oxygen saturation in Arterial blood by Pulse oximetry Inhaled oxygen flow rate Systolic And Diastolic Provider Name and Address Organization Details Last Updated DateTime 1 162.56 cm 43.1 kg/m2 384518. 68 g 75 /min 97 % 97 % 4 L/min 118/84 mm[Hg] DAVID KINGSTON [facility] 1 11:48:40 Social History None recorded. Functional Status Question Answer Note LastModified by Organization D etails LastModified Time What is your level of alcohol consumption? Moderate [email or web address] Information not available 10/26/2020 Mental Status None recorded. Family History Nothing Reported Notes:No premature [place]. Medical History Condition Response Hyperlipidemia Y Hypertension Y Gynecological HistoryNo gynecological history recorded. Obstetrics History GPAL:G 0 P 0 0 0 0 Past Encounters Encounter ID Performer Location Encounter Start Date Encounter Closed Date Diagnosis/Indication Diagnosis SNOMED-CT Code Diagnosis ICD10 Code Diagnosis IMO Codes Diagnosis Note [id number] Desmond Padilla MD [place] OFFICE [facility] [place] [address] 10/26/2020 12:49:39 10/26/2020 14:36:31 Heart failure with reduced ejection fraction 699470445 I50.21 Has nonischemi c cardiomyop athy, HF-rEF. She was in [facility] 09/30/20 with dyspnea, NSTEMI (peak trop I [...] (RVSP 42 mmHg). Begin cardiac rehab at [place]. Patient instructed to taper alcohol to off. Continue metoprolol and Lasix. Consider lisinopril and eventual spironolac tone. Obtain CMP, Mg, TSH, CBC, FLP. Hyperlipidemia 74884755 E78.5 Needs to keep LDL less than 70, and HDL more than 40. Obtain FLP. Obstructiv e sleep apnea syndrome 94884276 G47.33 She is now compliant with CPAP, with pulm. f/u. Essential hypertension 59139358 I10 Patient's blood pressure is well-contr olled on present medical therapy. Patient is tolerating , without difficulty , the current medication s. I have not made changes to the current regimen. Patient was advised to eat a low-sodium diet (2 grams sodium or less daily). BP diary. Subsequent non-ST segment elevation myocardial infarction 015730923 I22.2 Stable. Had [facility] 10/03/20: mild CAD (mLAD 40% followed by 50% disease which is diffuse from that point towards the end of the vessel), mild-moder ate LV systolic dysfunctio n (LVEF 40%) with nonischemi c cardiomyop athy. Continue ASA, Plavix, metoprolol , statin. Needs to keep LDL less than 70, and HDL more than 40. Maximal medical therapy. Obesity 807213270 E66.9 20 lb. weight loss recommende d over the next 2 months. [id number] Desmond Padilla MD [place] OFFICE [address] [place] [address] 11/09/2020 11:31:16 11/09/2020 13:02:04 Heart failure with reduced ejection fraction 924840307 I50.21 Has nonischemi c cardiomyop athy, HF-rEF. She was in [facility] 09/30/20 with dyspnea, NSTEMI (peak trop I 1.25), and CHF exacerbati on in setting of hypertensi ve urgency, COPD exacerbati on, untreated TRAVIS, left leg cellulitis (treated with doxycyclin e), possible pneumonia, diuresed with Lasix 40 mg bid. Had [facility] 10/03/20: mild CAD (mLAD 40% followed [...] (RVSP 42 mmHg). Begin cardiac rehab at [place]. Patient instructed to taper alcohol to off. [...] weeks. Subsequent non-ST segment elevation myocardial infarction 718387528 I22.2 Stable. Had [facility] 10/03/20: mild CAD [...] more than 40. Maximal medical therapy. Hyperlipidemia 24117561 E78.5 Needs to keep LDL less than 70, and HDL more than 40. Had 10/28/20: LDL 83Increase d to rosuvastat in 40 mg qHS 11/09/20. Obstructiv e sleep apnea syndrome 79311130 G47.33 She is now compliant with CPAP, with pulm. f/u. Essential hypertension 40100004 I10 Patient's blood pressure is well-contr olled on present medical therapy. Patient is tolerating , without difficulty , the current medication s. I have not made changes to the current regimen. Patient is advised to maintain a blood pressure diary. Patient was advised to eat a low-sodium diet (2 grams sodium or less daily). BP diary. Obesity 934446349 E66.9 20 lb. weight loss recommende d [...] 10/26/2020 1 [place] Ping Montes Christin [id number] 3 Ping Christin 11/06/2020 2 [place] [id number] Ping Montes Christin [id number] Ping Christin Notes Date Note Type [...] hospital follow-up for HCF. She was in [facility] 09/30/20 with dyspnea, NSTEMI (peak trop I [...] diaphoresis. No shortness of breath at rest. Dyspnea on exertion reported, improving. No fatigue.No orthopnea. No PND. Leg swelling reported, intermittent. No palpitation. Dizziness reported, postural. No syncope . No pre-syncope. No claudication. No major bleeding events. No side effects from medications. Complete ROS negative except as stated in the HPI and ROS. Had [facility] 10/03/20: mild CAD (mLAD 40% followed [...] K 3.6, Mg 1.7, Cr 0.8, Had [facility] 10/03/20: mild CAD (mLAD 40% followed [...] negative LE venous Doppler 09/2020. Desmond Padilla [place], [place] - [facility] 10/26/2020 14:36:29 [...] hospital follow-up for HCF. She was in [facility] 09/30/20 with dyspnea, NSTEMI (peak trop I 1.25), and CHF exacerbation in setting of hypertensive urgency, COPD exacerbation, untreated TRAVIS, left leg cellulitis (treated with doxycycline), possible pneumonia, diuresed with Lasix 40 mg bid. Had [facility] 10/03/20: mild CAD (mLAD 40% followed [...] diaphoresis. No shortness of breath at rest. Dyspnea on exertion reported, improving. No fatigue.No orthopnea. No PND. Leg swelling reported, intermittent, left leg, stable. No palpitation. Dizziness reported, postural. No syncope . No pre-syncope. No claudication. No major bleeding events. No side effects from medications. Complete ROS negative except as stated in the HPI and ROS. Had [facility] 10/03/20: mild CAD (mLAD 40% followed [...] 1.4, hgb 11.4, plt 108 lab result [id number] result : hgb 10.7, K 3.6, Mg [...] view 09-30-2020 US, echocardiogram 09-30-[address] [facility], [place] - [facility] 11/09/2020 12:58:46 OBGyn Episode No OBEpisode recorded.
--- OUTSIDE RECORDS SUMMARY | 2024-12-25 14:54 | XMS_ITS | Encounter Summary ---
Author Organization [facility] Healthcare Address [address] [place] [address] Care Team Providers Care Major Gifts Director Name Role Phone Meagan Yusuf MD Primary Care Provider + Annemarie Lea MD Unavailable [phone] Margy Walker MD PhD Unavailable [phone] Geraldine Barbosa NP Unavailable [phone] Encounter Details Date Type Department Care Team (Late st Contact Info) Description 12/25/[address] 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 Gender Identity Not on file Sexual Orientation Not on file documented as of this encounter Plan of Treatment Not on file documented as of this encounter Visit Diagnoses Not on filedocumented in this encounter Care Teams Major Gifts Director Relationship Specialty Start Date End Date Meagan Yusuf MD PCP - General Family Medicine 05/22/23 Annemarie Lea MD [address] [place] [address] Consulting Physician Otolaryngology 05/27/24 Margy Walker MD PhD [address] [place] [address] Consulting Physician Plastic Surgery 05/27/24 Geraldine Barbosa NP [address] [place] [address] Nurse Practitioner Neurosurgery 05/27/24 documented as of this encounter
--- OUTSIDE RECORDS SUMMARY | 2024-12-25 14:54 | XMS_ITS | Encounter Summary ---
Author Organization [facility] Address 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
--- OUTSIDE RECORDS SUMMARY | 2024-12-25 14:54 | XMS_ITS | Clinical Summary ---
Author Organization [facility] Address [address] [place] [address] Care Team Providers Care Juice Standardizer Name Role Phone Meagan Yusuf MD Primary Care Provider + Annemarie Lea MD Unavailable [phone] Margy Walker MD PhD Unavailable [phone] Geraldine Barbosa NP Unavailable [phone] Allergies Active Allergy Reactions Criticality Noted Date [...] Assessment & Plan (05/26/2024 9:50 AM MARKETING MGR): #COPD #TRAVIS, chronic #Chronic hypoxic respiratory failure [...] Assessment & Plan (05/27/2024 11:52 AM MARKETING MGR): 3/ tx out ICU, PT/OT - 05/25: awaiting repeat swallow evaluation, calorie counts - 05/26: Continue Tfs at nightly, Calorie counts. Wean O2 back to home 4L. Not medically ready for discharge. 05/27: Patient is medically stable for discharge, SW/CM updated. Discharge pending facility bed availability Treatment note 05/14 [x] Feeding difficulties 05/22/2024 Assessment & Plan (05/27/2024 11:55 AM MARKETING MGR): SBFT placed by ENT 05/21 TFs commenced [...] NPO, resumed tube feeds, ordered for repeat B2B SALES REPRESENTATIVE evaluation. Recommend up in chair for all meals and 1:1 assistance during meals pending B2B SALES REPRESENTATIVE evaluation. Discussed with patient and nurse to inform provider of any change in clinical exam or vital signs. 05/25: repeat Swallow- regular diet, regular thin liquids assistance with meals, calorie counts ordered, cycle tube feeding over PM MBS (05/27): swallow mechanism is normal Respiratory distress 05/20/2024 Assessment & Plan (05/27/2024 11:55 AM MARKETING MGR): Transferred to SICU 05/18 ON after respiratory [...] Assessment & Plan (05/15/2024 2:15 PM MARKETING MGR): - Orthostatic vital signs (05/14): negative - [...] Assessment & Plan (05/14/2024 12:48 PM MARKETING MGR): - Tylenol 1g q6h - Gabapentin 300mg TID - Robaxin 500mg TID PRN - Oxycodone 5mg q4h PRN Closed fracture of distal end of left radius Assessment & Plan (05/27/2024 11:55 AM MARKETING MGR): - Plastics consult - L hand/wrist xr [...] Assessment & Plan (05/25/2024 11:39 AM MARKETING MGR): - Magnesium (05/14): 1.9mg/dL - 05/14: replete Magnesium 2g IV - Magnesium (05/15): 2.0mg/dL - Magnesium (05/20): 2.2mg/dL - Magnesium (05/25): 2.0mg/dL - continue to trend Magnesium Fall, initial encounter 05/13/2024 Assessment & Plan (05/15/2024 10:18 AM MARKETING MGR): Syncopal workup given unclear mechanism (TTE, carotid [...] Assessment & Plan (05/27/2024 11:52 AM MARKETING MGR): Ophtho c/s ---HOB elevation, open-mouth sneezing, no [...] to be tasked with Dr Lea's team. 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 CTM BP and resume home lasix when appropriate. Restless leg syndrome 05/13/2024 Assessment & Plan (05/13/2024 2:32 PM MARKETING MGR): - Continue home ropinrole and pramipexole, gabapentin Mood disorder 05/13/2024 Assessment & Plan (05/13/2024 2:37 PM MARKETING MGR): Continue home zoloft Heart failure with mildly re duced ejection fraction (HFmrEF) 01/15/2024 Assessment & Plan (05/27/2024 11:57 AM MARKETING MGR): #HTN, chronic #HFrEF, chronic #Severe MR #Severe TI #Severe pulmonary hypertension - TTEs as above - Home O2 4L - Follows with [facility] Cardiology - Home Diltiazem, Entresto, Lasix (1/2 dose) and metoprolol continued Persistent atrial fibrillation 02/20/2022 Noncompliance with medicatio n treatment due to intermittent use of medication 12/18/2021 Morbid (severe) obesity due to excess calories 0 07/05/2021 Labile hypertension 03/23/2021 Hypotension due to drugs 03/23/2021 Coronary artery disease invo lving [place] coronary artery of [place] heart without angina pectoris 02/10/2021 Mixed hyperlipidemia 02/10/2021 Chronic obstructive pulmonary disease 02/10/2021 Chronic respiratory failure with hypoxia 021 TRAVSI on CPAP 02/10/2021 Frequent falls 02/10/2021 Resolved Problems Problem Noted Date Diagnosed Date Resolved Date COPD (chronic obstructive pulmonary disease) 5 05/23/2024 Assessment & Plan (05/13/2024 2:35 PM MARKETING MGR): - home meds: albuterol, ipratopium-albuterol Discharge planning issues 05/13/2024 Assessment & Plan (05/18/2024 2:27 PM MARKETING MGR): - 05/14: orthostatic vital signs pending, syncope [...] Encounters Date Type Department Care Team Description 12/25/2024 Emergency [facility] Emergency Department [address] [place] [address] 12/14/2024 Telephone [facility] Medicine Otolaryngology [facility] [place] [address] Sybil Burgess MS from Last 3 Months Immunizations Immunization Administration Dates Next Due Tdap 05/13/2024 Surgical History Surgery Date Site/Laterality Comments HYSTERECTOMY TOTAL SHOULDER REPLACEMENT Right HIP ARTHROPLASTY Medical History Medical History Date Comments [place], old CHF (congestive heart failure) (HCC) Alcohol [...] file Legal Sex Female 4:29 PM MARKETING MGR Gender Identity Not on file Sexual Orientation Not on file Obstetrics History Last Filed Vital Signs Vital Sign Reading Time Taken Comments Blood Pressure 104/74 09/01/2024 11:18 AM CDT Pulse 74 09/01/2024 11:18 AM CDT Temperature 37.1 C (98.8 F) 05/27/2024 3:28 PM MARKETING MGR Respiratory Rate 20 05/27/2024 11:49 AM MARKETING MGR Oxygen Saturation 99% 09/01/2024 11:18 AM CDT [...] 05/08/2018, 12/24 Medical Devices Implanted Type Area Soiled Linen Distributor Device Identifier Shelf Expiration Date Model / Serial / Lot Implantech Sheeting Silastic Non Reinforced Alliedsil [id number] Silicone -700- - [id number] Implanted:Qty: 1 on 05/19/2024 by Annemarie Lea MD at [facility] Other - see comments Right: Face Implantech 07/03/2028700- 40 / / Murdo Craniomaxillofacial Craniomaxillofacial Right 3d Large Implant Orbital Medpor Titan [id number] - [id number] Implanted:Qty: 1 on 05/19/2024 by Annemarie Lea MD at [facility] Other - see comments Right: Face Luis Carlos Craniomaxillofacial 08/19/2032 37167 / / Murdo Craniomaxillofacial 1.2mm 4mm Self Drill Axial Stability Lower Profile Screw Bone 56-06777 - [id number] Implanted:Qty: 1 on 05/19/2024 by Annemarie Lea MD at [facility] Other - see comments Right: Face Murdo Craniomaxillofacial 56-1290 4 / / Medartis Inc Plt 2.5 Adaptive Ii Trilock Dist Rad Vol L 10h Narrow T2.0 A-4750.101 - [id number] Implanted:Qty: 1 on 05/18/2024 by Margy Walker MD PhD at [facility] Left: Wrist Medartis Inc A-4750. 101 / / Medartis Inc 2.5mm 18mm Lock Cortical Screw Bone A-5750.18 - [id number] Implanted:Qty: 1 on 05/18/2024 by Margy Walker MD PhD at [facility] Left: Wrist [employer] Inc A-5750. 18 / / Medartis Inc 2.5mm 22mm Lock Cortical Screw Bone A-5750.22 - [id number] Implanted:Qty: 2 on 05/18/2024 by Margy Walker MD PhD at [facility] Left: Wrist [employer] A-5750. 22 / / [employer] Inc 2.5mm 20mm Lock Cortical Screw Bone A-5750.20 - [id number] Implanted:Qty: 3 on 05/18/2024 by Margy Walker MD PhD at [facility] Left: Wrist [employer] A-5750. 20 / / Medartis Inc Aptus 2.5mm 14mm Lock Cortical Screw Bone A-5750.14 - [id number] Implanted:Qty: 2 on 05/18/2024 by Margy Walker MD PhD at [facility] Left: Wrist [employer] Inc A-5750. 14 / / Med[employer]is Inc Aptus 2.5mm 14mm Cortical Screw Bone A-5700.14 - [id number] Implanted:Qty: 1 on 05/18/2024 by Margy Walker MD PhD at [facility] Left: Wrist [employer]is Inc A-5700. 14 / / Medartis Inc 2.5mm 12mm Lock Cortical Screw Bone A-5750.12 - [id number] Implanted:Qty: 1 on 05/18/2024 by Margy Walker MD PhD at [facility] Left: Wrist [employer] A-5750. 12 / / Explanted Type Area Soiled Linen Distributor Device Identifier Shelf Expiration Date Model / Serial / Lot Medartis Inc Aptus 2.5mm 16mm Cortical Screw Bone A-5700.16 - [id number] Explanted:Qty: 1 on 05/18/2024 by Margy Walker MD PhD at [facility] Left: Wrist [employer]artis Inc A-5700 .16 / / Medartis Inc 2.5mm 18mm Lock Cortical Screw Bone A-5750.18 - [id number] Explanted:Qty: 1 on 05/18/2024 at [facility] Left: Wrist Medartis Inc A-5750 .18 / / Insurance MEDICARE MEDICARE [facility] MEDICARE SUPPLEMENT MEDICARE [facility] MEDICARE SUPPLEMENT Advance Directives For more information, please contact: [phone] * Full Code (Latest Code Status on File) Date Activated Date Inactivated Comments 05/13/2024 8:42 PM 05/27/2024 11:27 PM Care Teams Juice Standardizer Relationship Specialty Start Date End Date Meagan Yusuf MD PCP - General Family Medicine 05/22/23 Annemarie Lea MD [address] [place] [address] Consulting Physician Otolaryngology 05/27/24 Margy Walker MD PhD [address] [place] [address] Consulting Physician Plastic Surgery 05/27/24 Geraldine Barbosa, ALFONSO [address] [place] [address] Nurse Practitioner Neurosurgery 05/27/24
--- OUTSIDE RECORDS SUMMARY | 2024-12-25 14:54 | XMS_ITS | Encounter Summary ---
Author Organization [facility] Healthcare Address [address] [place] [address] Care Team Providers Care Key Account Representative Name Role Phone Meagan Yusuf MD Primary Care Provider + Annemarie Lea MD Unavailable [phone] Margy Walker MD PhD Unavailable [phone] Geraldine Barbosa NP Unavailable [phone] Encounter Details Date Type Department Care Team (Late st Contact Info) Description 08/18/2024 Orders Only [facility] [place] [facility] Information Management [address] [place] [id number] Scanning, Provider Social History Tobacco Use [...] on file 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
--- OUTSIDE RECORDS SUMMARY | 2024-12-25 14:54 | XMS_ITS | Encounter Summary ---
Author Organization [facility] Healthcare Address [address] [place] [address] Care Team Providers Care Railroad Repairer Name Role Phone Meagan Yusuf MD Primary Care Provider + Meagan Yusuf MD Primary Care Provider + Annemarie Lea MD Unavailable [phone] Margy Wlaker MD PhD Unavailable [phone] Geraldine Barbosa NP Unavailable [phone] Encounter Details Date Type Department Care Team (Late st Contact Info) Description 01/31/2023 Orders Only [facility] [place] Information Management [address] [place] [id number] Scanning, Provider Social History Tobacco Use [...] on file Legal 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 Gender Identity Not on file Sexual [...] on filedocumented in this encounter Care Teams Railroad Repairer Relationship Specialty Start Date End Date Meagan Yusuf MD PCP - General Family Medicine 11/04/17 05/21/23 Meagan Yusuf MD PCP - General Family Medicine 05/22/23 Annemarie Lea MD [address] [place] [address] Consulting Physician Otolaryngology 05/27/24 Margy Walker MD PhD [address] [place] [address] Consulting Physician Plastic Surgery 05/27/24 Geraldine Barbosa NP [address] [place] [address] Nurse Practitioner Neurosurgery 05/27/24 documented as of this encounter
--- OUTSIDE RECORDS SUMMARY | 2024-12-25 14:54 | XMS_ITS | Encounter Summary ---
Author Organization [facility] Address 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
--- OUTSIDE RECORDS SUMMARY | 2024-12-25 14:54 | XMS_ITS | Data Portability ---
Author Organization [facility], Main Office Address [address] [place] [address] Care Team Providers Care Biological Technical Officer Name Role Phone P [facility] OTHER JAMILA YUSUF Primary Care Provider Assessment Encounter Date Assessment [...] Pt will d/c home on 07/07 with [facility], family oversight, and private duty [...] Orders metoprolol tartrate 25 mg tablet 2024 [id number], [address] [place], [place], [id number], 17:09:51 diltiazem 60 mg tablet 2024 [facility]02063, [address], [place], [id number], 17:09:51 Trelegy Ellipta 200 mcg-62.5 mcg-25 mcg powder for inhalation 2024 [facility] #31634, [address] [place] [address], [id number], 17:09:49 bumetanide 1 mg tablet 2024 [facility] #76722, [address] [place] [address], [id number], 17:09:50 potassium chloride ER 20 mEq tablet,exte nded release 2024 [facility] #57991, [address] [place] [address], [id number], 17:09:49 Patient TargetsNo targets recorded. Patient Instructions Encounter Date Encounter Id Patient Instructions Last Modified By Organization Details Last Modified Time 06/25/2024 [id number] I spent 36 minutes providing care to the patient today. More than 50% of that time was spent in discussing the expected course of the disease, discussing prognosis, coordinating care and counseling of the patient/family. Not available 06/25/2024 14:53:37 06/29/2024 [id number] I spent 36 minutes providing care to the patient today. More than 50% of that time was spent in discussing the expected course of the disease, discussing prognosis, coordinating care and counseling of the patient/family. Not available 06/29/2024 15:43:29 07/01/2024 [id number] I spent 35 minutes providing care to the patient today. More than 50% of that time was spent in discussing the expected course of the disease, discussing prognosis, coordinating care and counseling of the patient/family. Not available 07/01/2024 15:14:33 07/03/2024 [id number] I spent 36 minutes providing care to the patient today. More than 50% of that time was spent in discussing the expected course of the disease, discussing prognosis, coordinating care and counseling of the patient/family. Not available 07/04/2024 11:14:28 07/06/2024 [id number] I spent 40 minutes providing care to [...] emergency room for new or worsening symptoms. [email or web address] Not available 07/06/2024 17:09:37 Reason for Referral None Reported. Results Created Date Observation Date Name Description Value Unit Range Abnormal Flag Note LastModifiedBy Organization Detail LastModifiedTime Result Notes None recorded. Procedures Surgical History Date Name Laterality Status Provider Name and Address Organization Details Recorded Time [facility] 01:52:21 total replacement of right hip joint completed Aristides Dickinson [facility] 06/17/2024 01:52:36 Append[facility] 01:52:41 total shoulder replacement completed Aristides Lawrence [facility] 06/17/2024 01:53:12 Carpal tunnel surgery completed Aristides Lawrence [facility] 06/17/2024 01:53:23 Imaging Results None recorded. Procedure Notes None recorded. Medical Equipment None Reported. Allergies Allergen ID Allergen Name Allergen Category Reaction Reaction Severity Criticality Documentation Date Start Date Code Code System Note Provider Name and Address Organization Details Recorded Time 57308 Product containin g penicilli n (product) medicatio n Not available Not available Not available 06/17/2024 20873 8001 [facility] 24264 thiopenta l Not available Not available Not available Not available 06/17/2024 40946 Rx[facility] 01:[facility]29 Medications Name Sig Start [...] Not Available Not Available No t Available Senna-S 8.6 mg-50 mg tablet Take 2 [...] % 90 % 3 L/min 37.7 kg/m2 13126.1 7 g 128/71 mm[[place]] [place] [address] [place], [address], [facility] 5 14:38:24 Date Recorded Body height Heart rate Body temperature Respiratory rate Oxygen saturation Oxygen saturation in Arterial blood by Pulse oximetry Inhaled oxygen flow rate Body mass index (BMI) Body weight Systolic And Diastolic Provider Name and Address Organization Details Last Updated DateTime 5 162.56 cm 74 /min 98.3 [degF] 18 /min 96 % 96 % 4 L/min 36.4 kg/m2 95505.8 6 g 117/77 mm[Hg] [place] [address] [place], [address], [facility] [facility] 5 09:59:41 Date Recorded Body height Heart rate Body temperature Respiratory rate Oxygen saturation Oxygen saturation in Arterial blood by Pulse oximetry Inhaled oxygen flow rate Body mass index (BMI) Body weight Systolic And Diastolic Provider Name and Address Organization Details Last Updated DateTime 5 162.56 cm 90 /min 98.5 [degF] 20 /min 92 % 92 % 4 L/min 36.8 kg/m2 53841.2 g 121/71 mm[Hg] [place] [address] [place], [address], [facility] [facility] 5 14:57:30 Date Recorded Body height Heart rate Body temperature Respiratory rate Oxygen saturation Oxygen saturation in Arterial blood by Pulse oximetry Inhaled oxygen flow rate Body mass index (BMI) Body weight Systolic And Diastolic Provider Name and Address Organization Details Last Updated DateTime 5 162.56 cm 99 /min 98.5 [degF] 18 /min 96 % 96 % 4 L/min 37.2 kg/m2 69748.8 3 g 111/66 mm[Hg] [place] [address] [place], [address], [place] [facility] 09:51:16 Date Recorded Body height Heart rate Body temperature Respiratory rate Oxygen saturation Oxygen saturation in Arterial blood by Pulse oximetry Inhaled oxygen flow rate Body mass index (BMI) Body weight Systolic And Diastolic Provider Name and Address Organization Details Last Updated DateTime 162.56 cm 84 /min 98.7 [degF] 20 /min 93 % 93 % 4 L/min 36.6 kg/m2 43464.5 3 g 110/76 mm[Hg] Emy Su, ALFONSO [address] [place], [address], [place] [facility] 10:53:58 Social History Question Answer Notes LastModified by [email or web address] Details LastModified Time Tobacco Smoking Status Former Smoker Aristides Melinda beyer, [place] [facility] 06/17/2024 01:56:15 What Is Your Code Status? DNR [email or web address] Information not available 06/19/2024 When Did You Quit Smoking? 16+yearssinc elastcigaret te Information not available 06/17/2024 Sex: Unknown Functional Status Question Answer Note LastModified by Organizat [employer] Details LastModified Time Do you use any [...] Not available 06/17/2024 01:54:43 Unspecified Relation Malignant neoplasm of cervix uteri siblin g Not available 06/17/2024 01:54:57 Unspecified [...] Chronic Kidney Disease (CKD) Y Myocardial Infarction ([place]) Y Alcohol Abuse Y Psychiatric -- Depression Y COVID-19 Y Congestive Heart Failure (CHF) Y Hyperlipidemia Y Neuropathy Y Hypertension Y Gynecological HistoryNo gynecological history recorded. Obstetrics History GPAL:G 0 P 0 0 0 0 Past Encounters Encounter ID Performer Location Encounter Start Date Encounter Closed Date Diagnosis/Indication Diagnosis SNOMED-CT Code Diagnosis ICD10 Code Diagnosis IMO Codes Diagnosis Note [id number] Meagan Menjivar [address] [address] 06/17/2024 13:52:49 06/21/2024 03:24:15 Closed fracture of distal end of left radius 1104768747 1989731 S52.502D s/p ORIF 05/18 per hand/plast ics at [facility] remains NWB LUE with OCL splint in placeconti nue tylenol prn for painfu as scheduled with Dr. Shultz. Atrial fibrillation 4943 6004 I48.91 anticoagul ation has been heldcontin ue metoprolol and diltiazem for rate controlout patient cardiology fu as scheduled with Dr. 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 088502494 I13.0 continue diltiazem, metoprolol , lasixmonit or blood pressureso utpatient f/u with cardiology Coronary arteriosclerosis 72962068 I25.10 details unclear - patient denies recent chest pain and does not take nitro prn as outpatient continue current medication s regimen and f/u with cards as scheduled Chronic ob structive pulmonary disease 27380818 J44.9 on 4 liters/min [place] of supplement al O2 at baselinesh e does not use CPAP at home and has been refusing at rehabShe has her cpap machine at the facility and we will encourage compliance while hereoutpat ient fu with pulmonaryc ontinue trelegy which is newly prescribed - adding back prn duonebs Crohn's disease 37170274 K50.90 continue balsalazid e and cathartics as orderedout patient fu with GI Vitamin deficiency 19542 002 E56.9 continue B12 and vitamin D replacemen t therapy Constipation 91353414 K5 9.00 the patient is on routine senna s and miralaxmon itor clinically and adjust accordingl y Major depr essive disorder 875787739 F32.9 continue sertraline Gastroesop hageal reflux disease without esophagitis 243354400 K21.9 stable - continue pepcid Idiopathic peripheral neuropathy 54108338 G60.9 continue neurontin and prn tylenol Fracture of orbit 446084 07 S02.31XD ENT did ORIF 05/19eye drops have been d/c'doutpa tient f/u with ENT Intraparen chymal hemorrhage of brain 689063264 I61.8 anticoagul ation has been heldNS followed her during her hospitaliz ationshe completed seizure prophylaxi s medscontin ue to monitor neuro statuscont inue therapiesf /u with neurosurge ry as scheduled 06/30 with repeat head imaging Restless l egs syndrome 27625834 G25.81 continue ropinirole and pramipexol e Acute urin zuleika tract infection 791021758 N39.0 per urine done on arrival at [facility] - culture grew >100,000 klebsiella sensitivit ies were not ran for 1st generation cephalospo rins which is what the patient was treated with while at [facility] (Ancef x 7 days)she currently has no urinary symptoms or other concerns for infectionw ill monitor clinically Physical deconditioning 0158533838 9102 R68.89 related to advanced age, recent fall, comorbidit iestherapi es are in place, she will return home with family support upon d/c from [id number] Meagan Menjivar DO [facility] [address] [place] [address] 06/22/2024 13:16:28 06/28/2024 20:30:53 Closed fracture of distal end of left radius 0495850318 4781388 S52.502D s/p ORIF 05/18 per hand/plast ics at [facility].She remains NWB LUE with OCL splint in place.Cont inue Tylenol PRN for pain.F/U as scheduled with Dr. Shultz on 06/23. Fracture of orbit 484627 07 S02.31XD ENT did ORIF on 05/19.Eye drops have been d/c'd.Outp atient f/u with ENT. Intraparen chymal hemorrhage of brain 418017651 I61.8 Anticoagul ation has been held.NS followed [...] Radha Jimenez on 07/22. Congestive heart failure 78063066 I50.9 Continue Lasix and Metoprolol .Monitor edema -- may need additional diuretics. Continue to trend blood pressures, monitor lytes and renal function, and adjust meds as clinically indicated. Chronic ki dney disease 973929665 N18.9 Unclear baseline. Cr appears to be WNL for most of her recent hospitaliz ation.Avoi d nephrotoxi ns and trend labs. Hyperlipidemia 83239771 E78.5 Presumed stable. Continue statin. 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 Continue Diltiazem, Metoprolol , and Lasix.Cont inue to trend blood pressures, monitor lytes and renal function, and adjust meds as clinically indicated. outpatient f/u with cardiology as above. Coronary arteriosclerosis 99595717 I25.10 Details unclear. Patient denies recent chest pain and does not take nitro prn as outpatient .Continue current medication s regimen and f/u with cards as scheduled. Chronic ob structive pulmonary disease 10165240 J44.9 on 4 liters/min [place] of supplement al O2 at baseline.S he does not use CPAP at home and has been refusing at rehab. She has her cpap machine at the facility and we will encourage compliance while here.Outpa tient f/u with pulmonary. Continue Trelegy, which is newly prescribed .Schedule Albuterol Nebs BID -- this is pt's OP orders (she admits to usually only doing once/day). Crohn's disease 39831432 K50.90 Continue Balsalazid e and cathartics as ordered.Ou tpatient f/u with GI. Vitamin deficiency 89881 002 E56.9 Continue B12 and vitamin D replacemen t therapy. Constipation 44182522 K5 9.00 Patient is on routine Senna S and Miralax.Mo nitor clinically and adjust accordingl y. Major depr essive disorder 710697109 F32.9 Stable. Continue Sertraline . Gastroesop hageal reflux disease without esophagitis 543838125 K21.9 Stable. Continue Pepcid. Idiopathic peripheral neuropathy 90892218 G60.9 Stable. Continue Neurontin and PRN Tylenol. Restless l egs syndrome 91767239 G25.81 Stable. Continue Ropinirole and Pramipexol e. Acute urin zuleika tract infection 718338749 N39.0 Per urine done on arrival at [facility], culture grew >100,000 klebsiella .Sensitivi ties were not ran for 1st generation cephalospo rins, which is what the patient was treated with while at [facility] (Ancef x 7 days).She currently has no urinary symptoms or other concerns for infection. Monitor clinically . Physical deconditioning 8470030720 9102 R68.89 Related to advanced age, recent fall, comorbidit ies.Therap ies are in place, she will return home with family support upon d/c from . [id number] Meagan Menjivar DO [address] [address] 06/25/2024 10:24:52 07/06/2024 11:30:12 Closed fracture of distal end of left radius 8936830513 3332790 S52.502D s/p ORIF 05/18 per hand/plast ics Dr. Margy Walker at [facility].She was initially NWB to LUE with OCL splint in place. Was seen by Dr. Walker on 06/23, OCL splint removed and wrist brace placed in stead, which she is to wear at all times (remove for exercise & shower) x 2 weeks.Cont inue Tylenol PRN for pain.Sutur es removed at 06/23 appt. Incisions healed.F/U with Dr. Walker PRN. Fracture of orbit 376201 07 S02.31XD S/P ORIF on 05/19 per ENT.Eye drops have been d/c'd.Outp atient f/u with ENT. Intraparen chymal hemorrhage of brain 274443434 I61.8 Anticoagul ation has been held.NS followed [...] Radha Jimenez on 07/22. Congestive heart failure 34048916 I50.9 Continue Lasix and Metoprolol .Pt reports weight prior to hospitaliz ation was 198 lbs.Add Metolazone x 5 days.KCl increase to 40 meq BID x 5 days, then back to 20 meq daily.Labs (CBC, CMP, BNP on 06/29.Monito r edema, weights, and labs. Chronic ki dney disease 062017127 N18.9 Unclear baseline. Cr appears to be WNL for most of her recent hospitaliz ation.Avoi d nephrotoxi ns and trend labs. Hyperlipidemia 57468465 E78.5 Presumed stable. Continue statin. 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 Continue Diltiazem, Metoprolol , Lasix, and Potassium. Bursting with Metolazone as above.Cont inue to trend blood pressures, monitor lytes and renal function, and adjust meds as clinically indicated. Outpatient f/u with cardiology as above. Coronary arteriosclerosis 40914675 I25.10 Details unclear. Patient denies recent chest pain and does not take nitro prn as outpatient .Continue current medication s regimen and f/u with cards as scheduled. Chronic ob structive pulmonary disease 94223818 J44.9 on 4 liters/min [place] of supplement al O2 at baseline.S he [...] well.Outpa tient f/u with pulmonary. Crohn's disease 46612720 K50.90 Continue Balsalazid e and cathartics as ordered.Ou tpatient f/u with GI. Vitamin deficiency 64512 002 E56.9 Continue B12 and vitamin D replacemen t therapy. Constipation 86886303 K5 9.00 Patient is on routine Senna S and Miralax.Mo nitor clinically and adjust accordingl y. Major depr essive disorder 835639154 F32.9 Stable. Continue Sertraline . Gastroesop hageal reflux disease without esophagitis 844308219 K21.9 Stable. Continue Pepcid. Idiopathic peripheral neuropathy 57226269 G60.9 Stable. Continue Neurontin and PRN Tylenol. Restless l egs syndrome 13547554 G25.81 Stable. Continue Ropinirole and Pramipexol e. Acute urin zuleika tract infection 658116679 N39.0 Per urine done on arrival at [facility], culture grew >100,000 klebsiella .Sensitivi ties were not ran for 1st generation cephalospo rins, which is what the patient was treated with while at [facility] (Ancef x 7 days).She currently has no urinary symptoms or other concerns for infection. Monitor clinically . Physical deconditioning 9948209958 9102 R68.89 Related to advanced age, recent fall, comorbidit ies.Therap ies are in place, she will return home with family support upon d/c from . [id number] Meagan Menjivar, DO [address] [address] 06/29/2024 09:59:14 07/06/2024 11:31:59 Congestive heart failure 32017342 I50.9 Continue Lasix, KCl, and Metoprolol .Pt reports weight prior to hospitaliz ation was 198 lbs. Weight is down 8 lbs in the last 5 days but still [+] 13 lbs.Contin ues on Metolazone through 07/01.Labs (CBC, CMP, BNP) pending from this AM.Monitor edema, weights, and labs. 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 Continue Diltiazem, Metoprolol , Lasix, and Potassium. Bursting with Metolazone as above.Cont inue to trend blood pressures, monitor lytes and renal function, and adjust meds as clinically indicated. Outpatient f/u with cardiology as above. Closed fra cture of distal end of left radius 7566862371 4069896 S52.502D s/p ORIF 05/18 per hand/plast ics Dr. Margy Walker at [facility].She was initially NWB to LUE with OCL splint in place. Was seen by Dr. Walker on 06/23, OCL splint removed and wrist brace placed in stead, which she is to wear at all times (remove for exercise & shower) x 2 weeks.Cont inue Tylenol PRN for pain.Sutur es removed at 06/23 appt. Incisions healed.F/U with Dr. Walker PRN. Fracture of orbit 179613 07 S02.31XD S/P ORIF on 05/19 per ENT.Eye drops have been d/c'd.Outp atient f/u with ENT. Intraparen chymal hemorrhage of brain 591366665 I61.8 Anticoagul ation has been held.NS followed her during her hospitaliz ation.Comp leted seizure prophylaxi s meds.Gurpreet nue to monitor neuro status.Con tinue therapies. f/u with neurosurge ry as scheduled 4/8 with repeat head imaging. Atrial fibrillation 4943 6004 I48.91 Anticoagul ation has been held.Gurpreet nue Metoprolol and Diltiazem for rate control.Ca rdiology f/u as scheduled with Dr. Radha Jimenez on 07/22. Chronic ki dney disease 915302749 N18.9 Unclear baseline. Cr appears to be WNL for most of her recent hospitaliz ation.Avoi d nephrotoxi ns and trend labs. Hyperlipidemia 06056207 E78.5 Presumed stable. Continue statin. Coronary arteriosclerosis 22946210 I25.10 Details unclear. Patient denies recent chest pain and does not take nitro prn as outpatient .Continue current medication s regimen and f/u with cards as scheduled. Chronic ob structive pulmonary disease 46163203 J44.9 on 4 liters/min [place] of supplement al O2 at baseline.S he [...] well.Outpa tient f/u with pulmonary. Crohn's disease 98876934 K50.90 Continue Balsalazid e and cathartics as ordered.Ou tpatient f/u with GI. Vitamin deficiency 86190 002 E56.9 Continue B12 and vitamin D replacemen t therapy. Constipation 50227277 K5 9.00 Patient is on routine Senna S and Miralax.Mo nitor clinically and adjust accordingl y. Major depr essive disorder 820155147 F32.9 Stable. Continue Sertraline . Gastroesop hageal reflux disease without esophagitis 822702342 K21.9 Stable. Continue Pepcid. Idiopathic peripheral neuropathy 66630510 G60.9 Stable. Continue Neurontin and PRN Tylenol. Restless l egs syndrome 36694058 G25.81 Stable. Continue Ropinirole and Pramipexol e. Acute urin zuleika tract infection 171354346 N39.0 Per urine done on arrival at [facility], culture grew >100,000 klebsiella .Sensitivi ties were not ran for 1st generation cephalospo rins, which is what the patient was treated with while at [facility] (Ancef x 7 days).She currently has no urinary symptoms or other concerns for infection. Monitor clinically . Physical deconditioning 1681190786 9102 R68.89 Related to advanced age, recent fall, comorbidit ies.Therap ies are in place, she will return home with family support upon d/c from . [id number] Meagan Jenisai, DO [address] [address] 07/01/2024 12:56:01 07/06/2024 11:33:06 Congestive heart failure 25237527 I50.9 Continue Lasix, KCl, and Metoprolol .Pt reports weight prior to hospitaliz ation was 198 lbs. Weight is down 5 lbs with Metolazone burst. Completes today.Franca tor weights/ed sandra/labs. Hypertensi ve heart and renal disease with (congestive) heart failure 445424576 I13.0 Stable. Continue Diltiazem, Metoprolol , Lasix, and Potassium. Bursting with Metolazone as above.Cont inue to trend blood pressures, monitor lytes and renal function, and adjust meds as clinically indicated. Outpatient f/u with cardiology as above. Closed fra cture of distal end of left radius 0610837513 9355933 S52.502D s/p ORIF 05/18 per hand/plast ics Dr. Margy Walker at [facility].She was initially NWB to LUE with OCL splint in place. Was seen by Dr. Walker on 06/23, OCL splint removed and wrist brace placed in stead, which she is to wear at all times (remove for exercise & shower) x 2 weeks.Cont inue Tylenol PRN for pain.Sutur es removed at 06/23 appt. Incisions healed.F/U with Dr. Walker PRN. Fracture of orbit 294741 07 S02.31XD S/P ORIF on 05/19 per ENT.Eye drops have been d/c'd.Outp atient f/u with ENT. Intraparen chymal hemorrhage of brain 370098781 I61.8 Anticoagul ation has been held.NS followed her during her hospitaliz ation.Comp leted seizure prophylaxi s meds.Gurpreet nue to monitor neuro status.Con tinue therapies. f/u with neurosurge ry as scheduled 06/30 with repeat head imaging. Atrial fibrillation 4943 6004 I48.91 Anticoagul ation has been held.Gurpreet edgare Metoprolol and Diltiazem for rate control.Ca rdiology f/u as scheduled with Dr. aRdha Jimenez on 07/22. Chronic ki dney disease 659168486 N18.9 Unclear baseline. Cr appears to be WNL for most of her recent hospitaliz ation.Avoi d nephrotoxi ns and trend labs. Hyperlipidemia 42890997 E78.5 Presumed stable. Continue statin. Coronary arteriosclerosis 74145294 I25.10 Details unclear. Patient denies recent chest pain and does not take nitro prn as outpatient .Continue current medication s regimen and f/u with cards as scheduled. Chronic ob structive pulmonary disease 50096308 J44.9 on 4 liters/min [place] of supplement al O2 at baseline.S he does not use CPAP at home and has been refusing at rehab as she says it is uncomforta ble due to her recent orbital fracture. She has her cpap machine at the facility and we will encourage compliance while here.Gurpreet ori Trelegy (new) and Albuterol BID routinely. Continue PRN Duonebs, as well.Outpa tient f/u with pulmonary. Crohn's disease 42522382 K50.90 Continue Balsalazid e and cathartics as ordered.Ou tpatient f/u with GI. Vitamin deficiency 51167 002 E56.9 Continue B12 and vitamin D replacemen t therapy. Constipation 21093477 K5 9.00 Patient is on routine Senna S and Miralax.Mo nitor clinically and adjust accordingl y. Major depr essive disorder 451205493 F32.9 Stable. Continue Sertraline . Gastroesop hageal reflux disease without esophagitis 181046616 K21.9 Stable. Continue Pepcid. Idiopathic peripheral neuropathy 48945748 G60.9 Stable. Continue Neurontin and PRN Tylenol. Restless l egs syndrome 73949341 G25.81 Stable. Continue Ropinirole and Pramipexol e. Acute urin zuleika tract infection 990769601 N39.0 Per urine done on arrival at [facility], culture grew >100,000 klebsiella .Sensitivi ties were not ran for 1st generation cephalospo rins, which is what the patient was treated with while at [facility] (Ancef x 7 days).She currently has no urinary symptoms or other concerns for infection. Monitor clinically . Physical deconditioning [id number] 9102 R68.89 Related to advanced age, recent fall, comorbidit ies.Therap ies are in place, she will return home with family support upon d/c from [place]. Chronic hy poxemic respiratory failure [id number] J96.11 [id number] SEE ABOVE... [id number] Meagan Menjivar, [facility] [address] [place] [address] 07/03/2024 09:50:27 07/06/2024 11:34:03 Congestive heart failure [id number] I50.9 Improved with Metolazone burst (down 8 lbs) but has begun gaining weight and worsening edema since completed. Pt reports weight prior to hospitaliz ation was 198 lbs.Contin ue KCl and Metoprolol .Increase Lasix to Bumex 1.5 mg daily.Labs on Saturday.Satr weights/ed sandra/labs. Chronic ob structive pulmonary disease 68697546 J44.9 on 4 liters/min [place] of supplement al O2 at baseline.S he [...] with pulmonary. Chronic hy poxemic respiratory failure 215356518 J96.11 [id number] SEE ABOVE... 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 Continue Diltiazem, Metoprolol , and Potassium. Changing Lasix to Bumex as above.Rece ived Metolazone burst from 06/26 to 07/01.Contin ue to trend blood pressures, monitor lytes and renal function, and adjust meds as clinically indicated. Outpatient f/u with cardiology as above. Closed fra cture of distal end of left radius [id number] 6514429 S52.502D s/p ORIF 05/18 per hand/plast ics Dr. Margy Walker at [facility].She was initially NWB to LUE with OCL splint in place. Was seen by Dr. Walker on 06/23, OCL splint removed and wrist brace placed in stead, which she is to wear at all times (remove for exercise & shower) x 2 weeks (07/07).Con tinue Tylenol PRN for pain.Sutur es removed at 06/23 appt. Incisions healed.F/U with Dr. Walker PRN. Fracture of orbit 540217 07 S02.31XD S/P ORIF on 05/19 per ENT.Eye drops have been d/c'd.Outp atient f/u with ENT. Intraparen chymal hemorrhage of brain [id number] I61.8 Anticoagul ation has been held.NS followed [...] Jimenez on 07/22. Chronic ki dney disease 506000155 N18.9 Unclear baseline. Cr appears to be WNL for most of her recent hospitaliz ation.Avoi d nephrotoxi ns and trend labs. Hyperlipidemia 51530309 E78.5 Presumed stable. Continue statin. Coronary arteriosclerosis 01073632 I25.10 Details unclear. Patient denies recent chest pain and does not take nitro prn as outpatient .Continue current medication s regimen and f/u with cards as scheduled. Crohn's disease 11580651 K50.90 Continue Balsalazid e and cathartics as ordered.Ou tpatient f/u with GI. Vitamin deficiency 84870 002 E56.9 Continue B12 and vitamin D replacemen t therapy. Constipation 19599405 K5 9.00 Patient is on routine Senna S and Miralax.Mo nitor clinically and adjust accordingl y. Major depr essive disorder 109209674 F32.9 Stable. Continue Sertraline . Gastroesop hageal reflux disease without esophagitis 822481761 K21.9 Stable. Continue Pepcid. Idiopathic peripheral neuropathy 38302945 G60.9 Stable. Continue Neurontin and PRN Tylenol. Restless l egs syndrome 77318183 G25.81 Stable. Continue Ropinirole and Pramipexol e. Acute urin zuleika tract infection 413104600 N39.0 Per urine done on arrival at [facility], culture grew >100,000 klebsiella .Sensitivi ties were not ran for 1st generation cephalospo rins, which is what the patient was treated with while at [facility] (Ancef x 7 days).She currently has no urinary symptoms or other concerns for infection. Monitor clinically . Physical deconditioning [id number] 9102 R68.89 Related to advanced age, recent fall, comorbidit ies.Therap ies are in place, she will return home with family support upon d/c from . [id number] Meagan Menjivar DO [address] [address] 07/06/2024 10:53:33 07/08/2024 09:19:36 Congestive heart failure 47256570 I50.9 Pt reports weight prior to hospitaliz ation was 198 lbs. Improved with Metolazone burst (down 8 lbs) but immediatel y began gaining the weight and edema back once completed. Have escalated Lasix to Bumex with improvemen t. Continue KCl and Metoprolol , as well.Monit or weights/ed sandra/labs as OP.Cardiol ogy f/u with Dr. Radha Jimenez on 07/22. Chronic ob structive pulmonary disease 49294051 J44.9 on 4 liters/min [place] of supplement al O2 at baseline.S he [...] with pulmonary. Chronic hy poxemic respiratory failure 596152172 J96.11 [id number] SEE ABOVE... Hypertensi ve heart and renal disease with (congestive) heart failure 002669158 I13.0 Stable. Continue Diltiazem, Metoprolol , Bumex, and Potassium. Received Metolazone burst from 06/26 to 07/01.Contin ue to trend blood pressures, monitor lytes and renal function, and adjust meds as clinically indicated. Cardiology f/u with Dr. Radha Jimenez on 07/22. Closed fra cture of distal end of left radius [id number] 8509035 S52.502D s/p ORIF 05/18 per hand/plast ics Dr. Margy Walker at [facility].She was initially NWB to LUE with OCL splint in place. Was seen by Dr. Walker on 06/23, OCL splint removed and wrist brace placed in stead, which she is to wear at all times (remove for exercise & shower) x 2 weeks (07/07).Con tinue Tylenol PRN for pain.Sutur es removed at 06/23 appt. Incisions healed.F/U with Dr. Walker PRN. Fracture of orbit 460407 07 S02.31XD S/P ORIF on 05/19 per ENT.Eye drops have been d/c'd.Outp atient f/u with ENT. Intraparen chymal hemorrhage of brain 032832218 I61.8 Anticoagul ation has been stopped.NS followed [...] Jimenez on 07/22. Chronic ki dney disease 399040056 N18.9 Unclear baseline. Cr appears to be WNL for most of her recent hospitaliz ation.Avoi d nephrotoxi ns and trend labs. Hyperlipidemia 73432828 E78.5 Presumed stable. Continue statin. Coronary arteriosclerosis 91864508 I25.10 Details unclear. Patient denies recent chest pain and does not take nitro prn as outpatient .Continue current medication s regimen and f/u with cards on 07/22. Crohn's disease 01490477 K50.90 Continue Balsalazid e and cathartics as ordered.Ou tpatient f/u with GI. Vitamin deficiency 37307 002 E56.9 Continue B12 and vitamin D replacemen t therapy. Constipation 70132761 K5 9.00 Patient is on routine Senna S and Miralax.Mo nitor clinically and adjust accordingl y. Major depr essive disorder 807013888 F32.9 Stable. Continue Sertraline . Gastroesop hageal reflux disease without esophagitis 093037971 K21.9 Stable. Continue Pepcid. Idiopathic peripheral neuropathy 05303229 G60.9 Stable. Continue Neurontin and PRN Tylenol. Restless l egs syndrome 04099419 G25.81 Stable. Continue Ropinirole and Pramipexol e. Acute urin zuleika tract infection 849450104 N39.0 Per urine done on arrival at [facility], culture grew >100,000 klebsiella .Sensitivi ties were not ran for 1st generation cephalospo rins, which is what the patient was treated with while at [facility] (Ancef x 7 days).She currently has no [...] ID Garcia Member ID Guarantor Name 06/25/2024 [place] Ping Waller [id number] Ping Montes Christin 07/08/2024 2 [place] [id number] Ping Waller [id number] Ping Montes Christin 07/06/2024 1 [place] Ping Montes Christin [id number] 3 Ping Montes Christin Notes Date Note Type Note Provider Name and Address Organization Details Recorded Time 06/25/2024 text/html F/U recurrent falls with head strike, left IPH, right orbital [...] She lives alone in a home in [place] - her daughter and son live on [...] hand placement, safety and sequencing. Emy Su, ADVANCED QUALITY ENGINEER [address] [facility], [place], [address], [facility] 06/25/2024 14:53:49 06/29/2024 text/html F/U recurrent falls with head strike, left IPH, right orbital [...] She lives alone in a home in [place] - her daughter and son live on [...] CGA cueing for hand placement, safety and sequencing.---06/29/24M margot is doing fairly well today, without [...] posture and wider KARINE. Emy Su, ALFONSO [address] [facility], [place], [address], [facility] 06/29/2024 15:44:08 07/01/2024 text/html F/U recurrent falls with head strike, left IPH, right orbital [...] She lives alone in a home in [place] - her daughter and son live on [...] CGA cueing for hand placement, safety and sequencing.---06/29/24M margot is doing fairly well today, without [...] ft CGA cues for posture and wider KARINE.---07/01/24Martrish is doing well, resting in bed, actually [...] AD pt was very impulsive. Emy Su, ADVANCED QUALITY ENGINEER [address] [facility], [place], [address], [facility] 07/01/2024 15:15:41 07/03/2024 text/html F/U recurrent falls with head strike, left IPH, right orbital [...] She lives alone in a home in [place] - her daughter and son live on [...] CGA cueing for hand placement, safety and sequencing.---06/29/24M margot is doing fairly well today, without [...] ft CGA cues for posture and wider KARINE.---07/01/24Martrish is doing well, resting in bed, actually [...] cues for turing AD pt was very impulsive.---07/03/24M margot is self-propelling down the hallway in [...] SBA cues for energy conservation. Emy Su, ADVANCED QUALITY ENGINEER [address] [place], [address], [facility] 07/04/2024 11:15:18 07/06/2024 text/html 78 yo F PMH HFrEF pulm HTN, COPD, 4L O2 at baseline, Afib on xarelto admitted to [facility] [place] for post acute rehab subsequent to an inpatient stay at [facility] hospital 05/13-05/27/24 and an acute rehab stay at [facility] 05/27-06/16/24 following a fall with head strike. She fell from a stool at her kitchen countertop on the am of 05/12. She was initially taken to [facility] and then transferred to [facility] due to her injuries. Injuries#Orbital Blowout Fx#L [...] PRS ([facility])- Follow up outpatient with PRS ([place])Intraparenchyma l hematoma of brain due to trauma- [...] 6- Follow up with Dr Lea's team. [phone] sAncef 7day (complete)* Fall, initial encounterSyncopal workup [...] NPO, resumed tube feeds, ordered for repeat WET PROCESS OPERATOR evaluation. Recommend up in chair for all meals and 1:1 assistance during meals pending WET PROCESS OPERATOR evaluation. Discussed with patient and nurse [...] 05/21Back on CPAP w/ mustache dressing per ENT3: CXR: Small bilateral pleural effusion associated with [...] as above- Home O2 4L- Follows with [facility] Cardiology- Home Diltiazem, Entresto, Lasix (1/2 dose) and metoprolol continued She was transferred to [facility] 05/27. Her stay there was complicated by Covid - she required transfer to the ER at [facility] 06/05 with CTA of the chest negative for PE or pneumonia. It is unclear if she was treated with antivirals as no d/c summary from her stay at [facility] has been provided, only a few progress notes and NO labs or imaging results sent from her stay at [facility]. The patient did not have an increase in her O2 needs due to covid. She reports mild symptoms and denies other complications during her acute rehab stay. New Medications: trelegyDose adjusted: metoprolol, diltiazem, kclDiscontinued medications: oxycodone, nebs, entresto Code status is DNRdaughter, Joi, is MPOA, son, Gato, is FPOAPCP Meagan Yusuf---06/17/24 patient is sitting up in her W/C, she has a close friend visiting her today, Ping is doing well, a good historian. She lives alone in a home in [place] - her daughter and son live on [...] CGA cueing for hand placement, safety and sequencing.---06/29/24M margot is doing fairly well today, without [...] ft CGA cues for posture and wider KARINE.---07/01/24Martrish is doing well, resting in bed, actually [...] cues for turing AD pt was very impulsive.---07/03/24M margot is self-propelling down the hallway in [...] FWW 75 ft SBA cues for energy conservation.---Martrish ia seated in her w/c in her room, in good spirits, looking forward to discharging home tomorrow. She will have [facility] as well as private-duty nursing [...] for floor clearance and saftey Emy Su, ADVANCED QUALITY ENGINEER [address] [place], [address], [facility] 07/06/2024 17:10:14 OBGyn Episode No OBEpisode recorded.
--- OUTSIDE RECORDS SUMMARY | 2024-12-25 14:54 | XMS_ITS | Clinical Summary ---
Author Organization [facility] Address [address] [place] [address] Phone Care Team Providers Care Supply Specialist Name Role Phone Juan David Yusuf MD Primary Care Provider [phone]- [phone] Allergies Active Allergy Reactions Criticality Noted Date [...] 6 Tablets 42 Tablet 01/30/2018 3:41 PM [employer] 8 Active Active Problems Problem Noted Date [...] on file Legal Sex Female 3:33 AM [employer] Gender Identity Not on file Sexual Orientation Not on file Last Filed Vital Signs Vital Sign Reading Time Taken Comments Blood Pressure 123/62 01/30/2018 12:28 PM [employer] Pulse 74 01/30/2018 12:28 PM [employer] Temperature 36.5 C (97.7 F) 01/30/2018 12:28 PM [employer] Respiratory Rate 10 01/30/2018 12:28 PM [employer] Oxygen Saturation 93% 01/30/2018 12:28 PM [employer] Inhaled Oxygen Concentration - - Weight 116.6 kg (257 lb) 01/28/2018 8:16 AM [employer] Height 167.6 cm (5' 6) 01/28/2018 8:16 AM [employer] Body Mass Index 41.48 01/28/2018 8:16 AM [employer] Plan of Treatment Health Maintenance Due Date Last Done Comments DTAP/TDAP/TD VACCINES (1 - Tdap) 12/21/1966 PNEUMOCOCCAL VACCINE 50+ YEARS (1 of 2 - PCV) 12/21/18 67 ZOSTER VACCINE (1 of 2) 12/21/1997 OSTEOPOROSIS SCREENING 12/21/2012 RSV VACCINE (60+ or ) (1 - 1-dose 75+ series) 12/21/2022 INFLUENZA VACCINE (#1) 2024 01/28/2018 Medical Devices Implanted Type Area Roll Capper Device Identifier Shelf Expiration Date Model / Serial / Lot Shell Ringlc+ Pc 54mm [id number] - [id number] Implanted:Qty: 1 on 11/08/2016 by Abhinav Quesada MD at [facility] Hip Right: Hip [employer] [id number] 09/27/2026 [id number] / / [id number] Liner Arcomxl Rnglc Sz24 Xl-[id number] - [id number] Implanted:Qty: 1 on 11/08/2016 by Abhinav Quesada MD at [facility] Hip Right: Hip [employer] [id number] 10/01/2020 [id number] / / [id number] Stem Fem Echo Bmtrc Por Red Lat [id number] - [id number] Implanted:Qty: 1 on 11/08/2016 by Abhinav Quesada MD at [facility] Hip Right: Hip [employer] [id number] 04/11/2025 [id number] / / [id number] Head Modular Noskt 36mm -3mm [id number] - [id number] Implanted:Qty: 1 on 11/08/2016 by Abhinav Quesada MD at [facility] Hip Right: Hip [employer] [id number] 09/25/2026 [id number] / / [id number] Rsp Glenoid Head W Retaining Screw Neutral Sz 32mm Implanted:Qty: 1 on 01/27/2018 by Guerrero Cho MD at [facility] Other Right: Shoulder [employer] 12/05/2023 508-32-10 1 / / [id number] Small Socket Insert 32mm Semi Constrained E Plus Implanted:Qty: 1 on 01/27/2018 by Guerrero Cho MD at [facility] Other Right: Shoulder [employer] 11/29/2022 509-03-03 2 / / [id number] Humeral Stem Small Shell [id number] Implanted:Qty: 1 on 01/27/2018 by Guerrero Cho MD at [facility] Other Right: Shoulder [employer] 11/22/2023 533-10-10 8 / / [id number] Description:All DJO Surgical shoulder components are processed on requisition,[id number]. Rsp Glenoid Baseplate Implanted:Qty: 1 on 01/27/2018 by Guerrero Cho MD at [facility] Screw Right: Shoulder [employer] [id number] 10/23/2023 508-32-20 4 / / [id number] Rsp Bone Screw Locking Sz 5.0mm 30mm Long Implanted:Qty: 1 on 01/27/2018 by Guerrero Cho MD at [facility] Screw Right: Shoulder [employer] 06/25/2023 506-03- 0 / / [id number] Rsp Bone Screw Locking Sz 5.0mm 22 Mm Long Implanted:Qty: 1 on 01/27/2018 by Guerrero Cho MD at [facility] Screw Right: Shoulder [employer] 08/17/2023 506-12 2 / / [id number] Bone Screw Rsp5.0x26mm Long Implanted:Qty: 1 on 01/27/2018 by Guerrero Cho MD at [facility] Screw Right: Shoulder [employer] 6 / / Rsp Bone Screw- Locking Implanted:Qty: 1 on 01/27/2018 by Guerrero Cho MD at [facility] Right: Shoulder [employer] 11/01/2023 506-03-11 [id number] Insurance MEDICARE PART A AND B BCBS SUPP RX [employer] Medicare Part D RX [facility] Medicare Part D Advance Directives For more information, please contact: [phone] Documents on File Type Date Recorded Patient Tipple Engineer Expl anation Advance Directive POA 02/04/2018 [...] 6:44 AM 11/08/2016 7:30 AM Care Teams Supply Specialist Relationship Specialty Start Date End Date Juan David Yusuf MD PCP - General Family Practice 01/14/18
--- OUTSIDE RECORDS SUMMARY | 2024-12-25 14:54 | XMS_ITS | Encounter Summary ---
Author Organization [email or web address] Address [address] [place] [address] Care Team Providers Care In Store Demonstrator Name Role Phone Juan David Yusuf MD Primary Care Provider +1- [phone] Encounter Details Date Type Department Care Team (Late st Contact Info) Description 04/01/1999 Outpatient Historical [facility] Isatu Grant MD Social History Tobacco Use Types Packs/Day Years Used Date Smoking Tobacco: Never Assessed Comments Unknown Sex and Gender Information Value Date Recorded Sex Assigned at Not on file Legal Sex Female 3:33 AM HOISTMAN Gender Identity Not on file Sexual Orientation Not on file documented as of this encounter Plan of Treatment Not on file documented as of this encounter Visit Diagnoses Not on filedocumented in this encounter Care Teams In Store Demonstrator Relationship Specialty Start Date End Date Juan David Yusuf MD PCP - General Family Practice 01/14/18 documented as of this encounter
[2024-12-25] MEDS: MORPHINE SULFATE (*CRX) 4 MG/ML INJ 2 MG IV PUSH (16:00)
[2024-12-25] MEDS: ONDANSETRON INJ 4 MG/2 ML VIAL IV PUSH (16:01)
[2024-12-25 16:19] VITALS: BP 139/92; PULSE 88; RESP 14; O2SAT 100
== END 2024-12-25 16:24 | disposition short-term general hospital (02) ==
PROVIDERS: Emergency Provider Physician Assistant; PCP Family Medicine
DX: S12.040A Displaced lateral mass fracture of first cervical vertebra, initial encounter for closed fracture (principal); S02.113A Unspecified occipital condyle fracture, initial encounter for closed fracture; S12.090A Other displaced fracture of first cervical vertebra, initial encounter for closed fracture; J96.12 Chronic respiratory failure with hypercapnia; J96.11 Chronic respiratory failure with hypoxia; Z99.81 Dependence on supplemental oxygen; I48.91 Unspecified atrial fibrillation; I50.9 Heart failure, unspecified; I25.2 Old myocardial infarction; I27.20 Pulmonary hypertension, unspecified; E78.2 Mixed hyperlipidemia; G62.9 Polyneuropathy, unspecified; G25.81 Restless legs syndrome; M16.11 Unilateral primary osteoarthritis, right hip; F32.A Depression, unspecified; Z96.641 Presence of right artificial hip joint; Z96.611 Presence of right artificial shoulder joint; Z87.891 Personal history of nicotine dependence; Z87.440 Personal history of urinary (tract) infections; Z86.16 Personal history of COVID-19; Z90.710 Acquired absence of both cervix and uterus; Z79.01 Long term (current) use of anticoagulants; M47.812 Spondylosis without myelopathy or radiculopathy, cervical region; R94.31 Abnormal electrocardiogram [ECG] [EKG]; W18.11XA Fall from or off toilet without subsequent striking against object, initial encounter
CPT/HCPCS: 36415; 70450; 70486; 71046; 72125; 80053; 83735; 84484; 85025; 93005; 96374; 96375; 99284; 99285; J2270; J2405; L0140

== ENCOUNTER 2025-03-15 14:07 | Outpatient (CLI) | payer MEDICARE, SELFPAY ==
--- OUTSIDE RECORDS SUMMARY | 2018-05-13 07:55 | XMS_ITS | Continuity of Care Document ---
Author Organization [facility] Address [address] [place] [address] Phone Care Team Providers Care Edge Glue Machine Tender Name Role Phone Guerrero Cho MD Unavailable Unavailable Allergies, Adverse Reactions, Alerts Substance Reaction Status Criticality THIOPENTAL SODIUM Active No Informa tion Penicillins Rash Active No Information Medications Medication Instructions Dosage Effective Dates (start - stop) Status Comments clopidogrel 75 mg tablet take 1 tablet by oral route every day 75 MG - Active Aspirin Low Dose 81 mg tablet,delayed release take 1 tablet by oral route every day 81 MG - Active Spiriva with HandiHaler 18 mcg and inhalation capsules inhale 1 capsule by inhalation route every day using 2 inhalations via handihaler - Active sertraline 50 mg tablet take 3 tablet by oral route every day 150 MG - Active pramipexole 0.75 mg tablet take 1 tablet by oral route 3 times every day 0.75 MG - Active Apriso 0.375 gram capsule,extended release take 4 capsule by oral route every day in the morning 1500 MG - Active melatonin 10 mg tablet - Active Gralise 300 mg tablet,extended release - Active furosemide 40 mg tablet take 1 tablet by oral route every day 40 MG - Active Advair Diskus 250 mcg-50 mcg/dose powder for inhalation inhale 1 puff by inhalation route 2 times every day in the morning and evening approximately 12 hours apart 1.00 puff - Active Vitamin D3 1,000 unit tablet - Active albuterol sulfate 2.5 mg/3 mL (0.083 %) solution for nebulization inhale 3 milliliter by nebulization route 3 times every day 2.5 MG - Active Non-Aspirin Extra Strength 500 mg capsule take 2 capsule by oral route every 6 hours as needed - Active Procedures Procedure Date OFFICE/OUTPATIENT VISIT EST POSTOP FOLLOW-UP VISIT OFFICE/OUTPATIENT VISIT EST OFFICE/OUTPATIENT VISIT EST OFFICE/OUTPATIENT VISIT EST POSTOP FOLLOW-UP VISIT POSTOP FOLLOW-UP VISIT POSTOP FOLLOW-UP VISIT OFFICE/OUTPATIENT VISIT EST OFFICE/OUTPATIENT VISIT NEW Advance Directives Directive Yes / No Effective Date File Name No Information Encounters Encounter Description Practice Location Reason(s) For Visit Diagnoses Date Provider Providers Copied on Encounter OFFICE/OUTPA TIENT VISIT EST [facility], [address] [place] [address], [address], tel:[phone] [facility] Status post reverse total arthroplasty of right shoulderAfter care following right shoulder joint replacement surgery 9 Marquis Masters. [address], [place], [place], [id number] . tel: [phone] [facility], [address] [place] [address], [address], tel:[phone] [facility] s/p reverse right shoulder (chief complaint) Status post reverse total arthroplasty of right shoulder 8 Marquis Masters. [address], [place], [place], [id number] . tel: [phone] [facility], [address] [place] [address], [address], tel:[phone] [facility] Other specific arthropathies , not elsewhere classified, right shoulder 8 Marquis Masters. [address], [place], [place], [id number] . tel: [phone] OFFICE/OUTPA TIENT VISIT EST [facility], [address] [place] [address], [address], [phone] [facility] Complete tear of right rotator cuffPrimary osteoarthriti s of right shoulder 0 8 Marquis Masters. [address], [place], [place], [id number] . tel: [phone] OFFICE/OUTPA TIENT VISIT EST [facility], [address] [place] [address], [address], [place] tel:[phone] [facility] [place] RT SHOULDER INJURY 7\ (chief complaint) Body mass index (BMI) 40.0-44.9, adultComplete tear of right rotator cuff 8 Sangita Abhinav. [address] [place] [address], [id number] . tel: [phone] Referring Provider: Juan David Patiño, [address], [place], [address]. tel:[phone] OFFICE/OUTPA TIENT VISIT [facility], [address] [place] [address], [address], [place] tel:[phone] [facility] History of total right hip arthroplasty 8 Sangita La. [address] [place] [address], [id number] . tel: [phone] Referring Provider: Meagan Wren, PERMANENTLY CLOSED [address] [place], [place], [address]. tel:[phone] [facility], [address] [place] [address], [address], [place] tel:[phone] [facility] History of total right hip arthroplasty 7 Sangita La. [address] [place] [address], [id number] . tel: [phone] [facility], [address] [place] [address], [address], [place] tel:[phone] [facility] [place] R YANIRA 11/08/16 (chief complaint) History of total right hip arthroplasty 7 Michael Lemos. [address] [place] [address] [address], [place], [place], [id number] . tel: [phone] [facility], [address] [place] [address], [address], [phone] [facility] R YANIRA 11/08/16 (chief complaint) History of total right hip arthroplasty Sep-0 7 Michael Lemos. [address] [place] [address] [address], [place], [place], [id number] . tel: [phone] [facility], [address] [place] [address], [address], [place] tel:[phone] [facility] No Information Sangita La. [address] [place] [address], [id number] . tel: [phone] OFFICE/OUTPA TIENT VISIT EST [facility], [address] [place] [address], [address], tel:[phone] [facility] Follow Up of after right hip mri (chief complaint) Primary osteoarthriti s of right hipHip abductor tendinitis, right 7 Sangita La. [address] [place] [address], [id number] . tel: [phone] OFFICE/OUTPA TIENT VISIT [facility], [address] [place] [address], [address], [place] [phone] [facility] R hip (chief complaint) Body mass index (BMI) 38.0-38.9, adultPrimary osteoarthriti s of right hipHip abductor tendinitis, right 7 Sangita La. [address] [place] [address], [id number] . tel: [phone] Referring Provider: Kristel Villegas, [address], [place], [address]. tel:[phone] Family History Family Member Type Diagnosis Age At Onset Brother Problem (finding) Alive and well Immunizations Vaccine Date Status Comments Pneumo (2 yrs or older)(PPV) administered Source: Other Provider Payers Payer name Insurance type Covered libertarian ID Lela gong(s) Medicare E2 OT [id number] [place] Medicare Supplement E2 OT [id number] Social History Type Description Quantity Date Captured Comments Alcohol Use Details Unknown Caffeine Use Details Unknown Tobacco Use Status Smoking Status No Information Sex Female Chief Complaint And Reason For Visit No Information Reason For Referral Reason For Referral No Information Plan Of Treatment Date Type Action Status Referral Ordered: RADEX BAR COMPL MINIMUM 2 VIEWS LT ordered Referral Ordered: CT UXTR C-MATRL RT shoulder Appointment date/timeframe: 10/16/2017 ordered Referral Ordered: RADEX BAR COMPL MINIMUM 2 VIEWS RT ordered Referral Ordered: X-RAY EXAM HIP UNI W PELVIS 2-3 VIEWS RT ordered Referral Ordered: MRI ANY JT LXTR C-MATRL RT hip Appointment date/timeframe: 09/12/2016 ordered History Of Present Illness Encounter Date Complaint History Of Prese nt Illness s/p reverse right shoulder RT SHOULDER INJURY 7\3 R YANIRA 11/08/16 R YANIRA 11/08/16 Follow Up of after right hip mri R hip Functional Status Date Functional Assessmen t No Information Instructions Date Instruction Additional Infor dennis watch for signs of i nfection - increased pain, fever and redness Related to Status post reverse total arthroplasty of right shoulder increase activity as instructed Related to Status post reverse total arthroplasty of right shoulder Immobilize as directed. Related to Complete tear of right rotator cuff Apply ice as tolerated. Related to Complete tear of right rotator cuff Immobilize as directed. Related to Complete tear of right rotator cuff Apply ice as tolerated. Related to Complete tear of right rotator cuff Home safety checklis t for fall hazards provided Fall risk home exerc ise program handout provided Fall risk home exerc ise program handout provided Home safety checklis t for fall hazards provided Activity as tolerated Related to Complete tear of right rotator cuff Apply ice as tolerated. Related to Complete tear of right rotator cuff Immobilize as directed. Related to Complete tear of right rotator cuff Weight monitoring Related to Bod y mass index (BMI) 40.0-44.9, adult Take medications as ordered Rela yobani to History of total right hip arthroplasty Activity as tolerated Related to History of total right hip arthroplasty Take medications as ordered Rela yobani to History of total right hip arthroplasty Activity as tolerated Related to History of total right hip arthroplasty Activity as tolerated Related to History of total right hip arthroplasty Take antibiotics as directed for dental work. Related to History of total right hip arthroplasty Activity as tolerated Related to History of total right hip arthroplasty Take medications as ordered Rela yobani to History of total right hip arthroplasty apply heating pad or ice as tolerated Related to Primary osteoarthritis of right hip activity as tolerated Related to Primary osteoarthritis of right hip Fall risk home exerc ise program handout provided Giving encouragement to exercise Related to Body mass index (BMI) 38.0-38.9, adult Assessments Type Assessment Date assessment Status post reverse total arthro plasty of right shoulder assessment Aftercare following right should er joint replacement surgery Patient Care Teams Name Effective Dates (start - stop) Status Members No Information
--- NOTE | ~2025-03-15 | US_ITS ---
EXAMINATION:US venous doppler LE LT INDICATION:Left lower extremity swelling TECHNIQUE: Multiple grayscale, color flow and Doppler images of the left lower extremity deep venous systems were obtained and reviewed. COMPARISON:Ultrasound dated 04/25/2021 FINDINGS: The common femoral, superficial femoral and popliteal veins demonstrate normal respiratory variation, augmentation and compressibility. Color flow is also seen within the posterior tibial, peroneal, greater saphenous and profunda veins. IMPRESSION: 1: No lower extremity deep venous thrombosis. Reviewed, dictated and finalized at location O. N TRIMMER
[2025-03-15 14:45] LABS: Hematocrit 38.2 % (37.0-47.0); Hemoglobin 11.8 g/dL (12.0-15.0); Immature Granulocyte Percent A 0.3 % (0-0.5); Lymphocytes Absolute Auto 0.81 K/mm3 (0.9-3.2); Mean Corpuscular HGB Conc 30.9 g/dl (32-36); Mean Corpuscular Hemoglobin 29.9 pg (26-34); Mean Corpuscular Volume 97.0 fl (80-100); Nucleated Red Blood Cells Absolute Auto 0.000 K/mm3 (0.0-0.012); Nucleated Red Blood Cells Perc 0.0 % (0.0-0.2); Platelet Count Result 178 k/mm3 (150-375); Red Blood Count 3.94 M/mm3 (4.2-5.4); White Blood Count 7.2 K/mm3 (4.5-10.0)
[2025-03-15 15:09] LABS: Alanine Aminotransferase 27 U/L (6-35); Albumin Level 4.1 g/dL (3.5-5.1); Alkaline Phosphatase 67 U/L (38-126); Aspartate Amino Transferase 62 U/L (14-36); Bilirubin,Total 2.1 mg/dL (0.2-1.3); Blood Urea Nitrogen 33 mg/dL (7-17); Calcium 9.1 mg/dL (8.4-10.2); Chloride 83 mmol/L (98-107); Estimated Glomerular Filt Rate 55; Glucose 99 mg/dL (65-110); Potassium 3.1 mmol/L (3.4-5.0); Sodium 138 mmol/L (137-145); Total Protein 7.5 g/dL (6.3-8.2)
[2025-03-15 15:51] LABS: Carbon Dioxide > 40 mmol/L (22-30)
--- OUTSIDE RECORDS SUMMARY | 2025-03-15 15:54 | XMS_ITS ---
Author Name Auto Generated, Auto Generated Organization [employer] [facility] ices Address [address] [place] [address] Care Team Providers Care Lead Designer Name Role Phone Meagan Garcia Primary Physician [phone] Emy Su Nurse Practitioner Camila Spence Fixed Assets Accountant [phone] Allergies and Intolerances Name Onset Reaction Severity thiopental 2023-02-06 17:18:00 penicillin 2023-02-06 17:18:00 Care Team Name Role NPI Start Date Meagan Garcia Primary Physician [phone] 2024-05-24 5 00:00:00 Emy Su Nurse Practitioner [phone] 2024 00:00:00 Camila Spence Fixed Assets Accountant [phone] 2024-06-16 00:0 0:00 Encounters Admissions Program Name Primary Diagnosis Admission Date Discharg e Date [facility] 2024-06-16 14:00:00 2024-07-07 13:45:00 Goals Goal Date Ping will demonstrate compliance with cardiac diet. 2024-06-25 00:00:00 Ping will maintain optimal respiratory status thru next review. 2024-06-29 00:00:00 Ping will be free from s/s of drug-related: hypotension, gait disturbance, cognitive impairment, behavioral impairment, ADL decline, decline in appetite, abnormal involuntary movement thru next review. 2024-06-29 00:00:00 Ping will receive the leas t dosage of the prescribed psychotropic drug(s) to ensure maximum functional ability both mentally and physically thru next review. 2024-06-29 00:00:00 Ping will not sustain a fa ll related injury by utilizing fall precautions through next review. 2024-06-29 00:00:00 Ping will have no alterati on in skin integrity thru next review. 2024-06-29 00:00:00 Ping will have increase in ADL independence by participating in therapy thru next review. 2024-06-29 00:00:00 Ping will achieve maximum control of the bladder and will reduce the number of incontinent episodes through next review. 2024-06-29 00:00:00 Ping is DNR. 2024-06-29 00:00:00 Ping will attend his or he r own person centered care plan meeting as tolerated. 2024-06-29 00:00:00 Ping will be involved in the discharge planning process. 2024-06-29 00:00:00 Ping will remain as independent as ezekiel yarbrough. 2024-06-29 00:00:00 Assist family/friends with continuing [facility] caregiver role. 2024-06-29 00:00:00 Continue the relationship between Ping and support system. 2024-06-29 00:00:00 Ping will continue ordered therapy to attempt to return to prior level. 2024-06-29 00:00:00 Ping's mood will remain stable. 06-29 00:00:00 Ping will discharge back to home in [facility] community. 2024-06-29 00:00:00 Past Medical History Active Concerns Problem Code Start Date End Date Other acidosis Other acidosis 2023-02-06 00:00:00 Other specified respiratory disorders Other specified respiratory disorders 2023-02-06 00:00:00 2024-06-17 00:00:00 Alcohol dependence, uncomplicated Alcohol dependence, uncomplicated 2023-02-06 00:00:00 Obstructive sleep apnea (adult) (pediatric) Obstructive sleep apnea (adult) (pediatric) 2023-02-06 00:00:00 Emphysema, unspecified Emphysema, unspecified 14-02-15 00:00:00 2024-06-19 00:00:00 Chronic respiratory failure with hypoxia Chronic respiratory failure with hypoxia 2023-02-06 00:00:00 Dependence on supplemental oxygen Dependence on supplemental oxygen 2023-02-06 00:00:00 Restless legs syndrome Restless legs syndrome 14-02-15 00:00:00 Hypertensive heart disease with heart failure Hypertensive heart disease with heart failure 2023-02-06 00:00:00 2024-06-19 00:00:00 Pulmonary hypertension, unspecified Pulmonary hypertension, unspecified 2023-02-06 00:00:00 Polyneuropathy, unspecified Polyneuropathy, unspecified 2023-02-06 00:00:00 Pneumonia, unspecified organism Pneumonia, unspecified organism 2023-02-06 00:00:00 2024-06-17 00:00:00 Chronic obstructive pulmonary disease with (acute) lower respiratory infection Chronic obstructive pulmonary disease with (acute) lower respiratory infection 2023-02-06 00:00:00 2024-06-16 00:00:00 Acute and chronic respiratory failure with hypoxia Acute and chronic respiratory failure with hypoxia 2023-02-06 00:00:00 2024-06-17 00:00:00 Mixed hyperlipidemia Mixed hyperlipidemia 2022-03 00:00:00 Personal history of nicotine dependence Personal history of nicotine dependence 2023-02-06 00:00:00 Dilated cardiomyopathy Dilated cardiomyopathy 14-02-15 00:00:00 Acute kidney failure, unspecified Acute kidney failure, unspecified 2023-02-06 00:00:00 2024-06-17 00:00:00 Heart failure, unspecified Heart failure, unspec ified 2023-02-06 00:00:00 2024-06-17 00:00:00 Depression, unspecified Depression, unspecified 2023-02-06 00:00:00 shelter (current) use of anticoagulants shelter (current) use of anticoagulants 2023-02-06 00:00:00 Hypotension, unspecified Hypotension, unspecifie d 2023-08-20 00:00:00 Fall on same level from slipping, tripping and stumbling with subsequent striking against furniture, subsequent encounter Fall on same level from slipping, tripping and stumbling with subsequent striking against furniture, subsequent encounter 2023-08-20 00:00:00 2024-06-17 00:00:00 Laceration without foreign body of other part of head, subsequent encounter Laceration without foreign body of other part of head, subsequent encounter 2023-08-20 00:00:00 2024-06-17 00:00:00 Contusion of left eyelid and periocular area, subsequent encounter Contusion of left eyelid and periocular area, subsequent encounter 2023-08-20 00:00:00 2024-06-17 00:00:00 Contusion of unspecified part of neck, subsequent encounter Contusion of unspecified part of neck, subsequent encounter 2023-08-20 00:00:00 2024-06-17 00:00:00 Contusion of thorax, unspecified, subsequent encounter Contusion of thorax, unspecified, subsequent encounter 2023-08-20 00:00:00 2024-06-17 00:00:00 Hemorrhage of bilateral orbit Hemorrhage of bilateral orbit 2023-08-20 00:00:00 2024-06-17 00:00:00 Thrombocytopenia, unspecified Thrombocytopenia, unspecified 2023-08-20 00:00:00 Anemia, unspecified Anemia, unspecified 00:00:00 Chronic atrial fibrillation, unspecified Chronic atrial fibrillation, unspecified 2023-08-20 00:00:00 Urinary tract infection, site not specified Urinary tract infection, site not specified 2023-08-20 00:00:00 2024-06-17 00:00:00 Chronic obstructive pulmonary disease with (acute) exacerbation Chronic obstructive pulmonary disease with (acute) exacerbation 2023-08-20 00:00:00 2024-06-17 00:00:00 Repeated falls Repeated falls 2023-08-20 00:00:00 Old myocardial infarction Old myocardial infarct ion 2023-08-20 00:00:00 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 2023-08-20 00:00:00 2023-08-20 00:00:00 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 2023-08-20 00:00:00 Ulcerative colitis, unspecified, without complications Ulcerative colitis, unspecified, without complications 2023-08-20 00:00:00 Cervical disc disorder with radiculopathy, unspecified cervical region Cervical disc disorder with radiculopathy, unspecified cervical region 2023-08-20 00:00:00 shelter (current) use of 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 2023-02-12 00:00:00 LSS_Social ServicesRoger Feng will be involved in goal development to the best of his or her ability. 2023-02-12 00:00:00 LSS_Social ServicesRoger Feng has family/friends who are supportive. 2023-02-12 00:00:00 LSS_Social ServicesRoger Feng's mobility level is different than prior level due to current medical condition. 2023-02-12 00:00:00 LSS_Social ServicesRoger Feng has a dx of depression and is currently on an antidepressant. 2023-02-12 00:00:00 LSS_Social ServicesRoger Feng will be involved in discharge planning. 2023-02-12 00:00:00 LSS_Social ServicesRoger Feng's wishes will be followed (Advanced Directive/Code Status). 2023-08-24 00:00:00 LSS_Social ServicesRoger Feng will be involved in goal development to the best of his or her ability. 2023-08-24 00:00:00 LSS_Social ServicesRoger Feng has family/friends who are supportive. 2023-08-24 00:00:00 LSS_Social ServicesRoger Feng's mobility level is different than prior level due to current medical condition. 2023-08-24 00:00:00 LSS_Social ServicesRoger Feng has a dx of depression and is currently on an antidepressant. 2023-08-24 00:00:00 LSS_Social ServicesRoger Feng will be involved in discharge planning. 2023-08-24 00:00:00 Immunizations Name Date Status TST-PPD intradermal 2024-06-16 05:00:00 Complete d TST-PPD intradermal 2024-06-23 05:00:00 Complete d TST-PPD intradermal 2024-06-18 05:00:00 Complete d TST-PPD intradermal 2024-06-25 05:00:00 Complete d Medications Medication Instructions Start Date End Date metoprolol tartrate 25 mg tablet 12.5 mg TABLET Oral 2 Times Daily Indication: HTN 2024-06-16 17:00:00 2024-06-17 14:42:00 dilTIAZem 60 mg tablet 60 mg TABLET Oral 3 Times Daily Indication: HTN 2024-06-16 17:00:00 2024-06-17 14:43:00 Trelegy Ellipta 100 mcg-62.5 mcg-25 mcg powder for inhalation 1 inhalation BLISTER, WITH INHALATION DEVICE Inhalation 1 Time Daily Indication: COPD 2024-06-16 17:00:00 2024-06-22 16:33:00 potassium chloride ER 20 mEq tablet,extended release 20 mEq TABLET, EXTENDED RELEASE Oral 2 Times Daily Indication: hypokalemia 2024-06-16 17:00:00 2024-06-26 00:28:00 famotidine 20 mg tablet 20 mg TABLET Ora l 2 Times Daily Indication: indigestion 2024-06-16 17:00:00 2024-07-07 05:00:00 cyanocobalamin (vit B-12) 1,000 mcg tablet 1000 TABLET Oral 1 Time Daily Indication: supplement 2024-06-16 17:00:00 2024-07-07 05:00:00 Ozempic 1 mg/dose (4 mg/3 mL) subcutaneous pen injector 1 mg PEN INJECTOR (ML) Subcutaneous 1 Time Weekly Indication: diabetes 2024-06-16 17:00:00 2024-06-16 22:00:00 gabapentin 300 mg capsule 300 mg CAPSULE Oral 3 Times Daily Indication: nerve pain 2024-06-16 17:00:00 2024-07-07 05:00:00 pramipexole 1 mg tablet 1 mg TABLET Oral 1 Time Daily Indication: Parkinson 2024-06-16 17:00:00 2024-07-07 05:00:00 folic acid 1 mg tablet 1 mg TABLET Oral 1 Time Daily Indication: supplement 2024-06-16 17:00:00 2024-07-07 05:00:00 rosuvastatin 20 mg tablet 20 mg TABLET O ral 1 Time Daily Indication: HDL 2024-06-16 17:00:00 2024-07-07 05:00:00 balsalazide 750 mg capsule 2250 mg CAPSU LE Oral 3 Times Daily Indication: ulcerative colitis take 3 tablets each time 2024-06-16 17:00:00 2024-06-17 20:03:00 cholecalciferol (vitamin D3) 25 mcg (1,000 unit) tablet 25 mcg TABLET Oral 1 Time Daily Indication: supplement 2024-06-16 17:00:00 2024-06-17 14:49:00 Stimulant Laxative Plus 8.6 mg-50 mg tablet 2 tabs TABLET Oral 2 Times Daily Indication: constipation 2024-06-16 17:00:00 2024-07-02 23:07:00 rOPINIRole 0.5 mg tablet 0.5 mg TABLET O ral 3 Times Daily Indication: Parkinson's 2024-06-16 17:00:00 2024-07-07 05:00:00 sertraline 100 mg tablet 100 mg TABLET O ral 1 Time Daily Indication: depression 2024-06-16 17:00:00 2024-07-07 05:00:00 acetaminophen 500 mg tablet 1000 mg TABL ET Oral PRN Every 6 Hours Indication: pain 2024-06-16 17:00:00 2024-06-30 15:55:00 polyethylene glycoL 3350 17 gram/dose oral powder 17 g POWDER (GRAM) Oral 1 Time Daily Indication: constipation 2024-06-16 17:00:00 2024-07-02 23:07:00 furosemide 40 mg tablet 40 mg TABLET Ora l 1 Time Daily Indication: HTN BP and/or Pulse Hold: Systolic Blood Pressure < 110 Hold;. 2024-06-16 17:00:00 2024-07-03 16:27:00 TubersoL 5 tub. unit/0.1 mL intradermal injection solution 0.1 ml VIAL (ML) Intradermal 1 Time Weekly for 2 Weeks Indication: admit 1st injection on admission, then one week after. Read between 48 and 72 hours 2024-06-16 17:00:00 2024-06-30 16:59:00 TubersoL 5 tub. unit/0.1 mL intradermal injection solution Read Results VIAL (ML) Other 1 Time Weekly for 2 Weeks Indication: admit Read results between 48-72 hours after 1st and 2nd (1 week apart). Any reading of 10mm or greater results in a positive test, an x-ray will need to be ordered as a follow up. 2024-06-18 17:00:00 2024-07-02 16:59:00 metoprolol tartrate 25 mg tablet 12.5 mg TABLET Oral 2 Times Daily Indication: HTN 2024-06-17 14:41:00 2024-07-07 05:00:00 dilTIAZem 60 mg tablet 30mg TABLET Oral 3 Times Daily Indication: HTN 2024-06-17 14:41:00 2024-07-07 05:00:00 cholecalciferol (vitamin D3) 50 mcg (2,000 unit) tablet 2,000U TABLET Oral 1 Time Daily Indication: supplement 2024-06-17 14:46:00 2024-07-07 05:00:00 balsalazide 750 mg capsule 3 capsules CA PSULE Oral 3 Times Daily Indication: ulcerative colitis take 3 tablets each time 2024-06-17 20:02:00 2024-07-07 05:00:00 ipratropium 0.5 mg-albuteroL 3 mg (2.5 mg base)/3 mL nebulization soln 3 mL AMPUL FOR NEBULIZATION (ML) Inhalation PRN Every 6 Hours Indication: wheezing/sob PRN for Wheezing/SOB 2024-06-17 21:00:00 2024-07-07 05:00:00 Trelegy Ellipta 100 mcg-62.5 mcg-25 mcg powder for inhalation 1 inhalation BLISTER, WITH INHALATION DEVICE Inhalation 1 Time Daily Indication: COPDRemind resident to rinse mouth after use to avoid oral thrush from developing 2024-06-22 16:31:00 2024-06-30 15:54:00 albuterol sulfate 0.63 mg/3 mL solution for nebulization as directed VIAL, NEBULIZER (ML) Inhalation 2 Times Daily Indication: COPD 2024-06-23 13:00:00 2024-07-07 05:00:00 potassium chloride ER 20 mEq tablet,extended release 20 mEq TABLET, EXTENDED RELEASE Oral 2 Times Daily Indication: hypokalemia 2024-07-02 00:27:00 2024-07-07 05:00:00 potassium chloride ER 20 mEq tablet,extended release 40mEq TABLET, EXTENDED RELEASE Oral 1 Time Daily for 5 Days Indication: hypokalemia 2024-06-25 17:00:00 2024-06-30 16:59:00 metOLazone 2.5 mg tablet 1 tab TABLET Or al 1 Time Daily for 5 Days Indication: edema 2024-06-25 17:00:00 2024-06-30 16:59:00 Trelegy Ellipta 100 mcg-62.5 mcg-25 mcg powder for inhalation 1 inhalation BLISTER, WITH INHALATION DEVICE Inhalation 1 Time Daily Indication: COPDPosition inhaler in front of or in mouth. Resident is to inhale deeply when spray is applied or inhale contents of the SPACER, wait 1 minute between administering inhalations. Rinse Mouth and expectorate after steroid use. Rinse Applicator (and spacer) after each use. 2024-06-30 15:52:00 2024-07-03 16:27:00 acetaminophen 500 mg tablet 1000 mg TABL ET Oral PRN Every 6 Hours Indication: painMax dose 3grams/24 hours 2024-06-30 15:54:00 2024-07-07 05:00:00 polyethylene glycoL 3350 17 gram/dose oral powder 17 g POWDER (GRAM) Oral PRN 1 Time Daily Indication: constipation 2024-07-02 23:06:00 2024-07-07 05:00:00 Stimulant Laxative Plus 8.6 mg-50 mg tablet 2 tabs TABLET Oral PRN 2 Times Daily Indication: constipation 2024-07-02 23:06:00 2024-07-07 05:00:00 Trelegy Ellipta 200 mcg-62.5 mcg-25 mcg powder for inhalation 1 puff BLISTER, WITH INHALATION DEVICE Inhalation 1 Time Daily Indication: Wheezing/COPD 2024-07-04 11:00:00 2024-07-07 05:00:00 bumetanide 1 mg tablet 1.5 tablet TABLET Oral 1 Time Daily Indication: Edema 2024-07-04 11:00:00 2024-07-07 05:00:00 Problems Active Concerns Problem Code Start Date End Date Text Other acidosis Other acidosis 2023-02-06 00:00:00 Other specified respiratory disorders Other specified respiratory disorders 2023-02-06 00:00:00 2024-06-17 00:00:00 Alcohol dependence, uncomplicated Alcohol dependence, uncomplicated 2023-02-06 00:00:00 Obstructive sleep apnea (adult) (pediatric) Obstructive sleep apnea (adult) (pediatric) 2023-02-06 00:00:00 Emphysema, unspecified Emphysema, unspecified 14-02-15 00:00:00 2024-06-19 00:00:00 Chronic respiratory failure with hypoxia Chronic respiratory failure with hypoxia 2023-02-06 00:00:00 Dependence on supplemental oxygen Dependence on supplemental oxygen 2023-02-06 00:00:00 Restless legs syndrome Restless legs syndrome 14-02-15 00:00:00 Hypertensive heart disease with heart failure Hypertensive heart disease with heart failure 2023-02-06 00:00:00 2024-06-19 00:00:00 Pulmonary hypertension, unspecified Pulmonary hypertension, unspecified 2023-02-06 00:00:00 Polyneuropathy, unspecified Polyneuropathy, unspecified 2023-02-06 00:00:00 Pneumonia, unspecified organism Pneumonia, unspecified organism 2023-02-06 00:00:00 2024-06-17 00:00:00 Chronic obstructive pulmonary disease with (acute) lower respiratory infection Chronic obstructive pulmonary disease with (acute) lower respiratory infection 2023-02-06 00:00:00 2024-06-16 00:00:00 Acute and chronic respiratory failure with hypoxia Acute and chronic respiratory failure with hypoxia 2023-02-06 00:00:00 2024-06-17 00:00:00 Mixed hyperlipidemia Mixed hyperlipidemia 2022-03 00:00:00 Personal history of nicotine dependence Personal history of nicotine dependence 2023-02-06 00:00:00 Dilated cardiomyopathy Dilated cardiomyopathy 14-02-15 00:00:00 Acute kidney failure, unspecified Acute kidney failure, unspecified 2023-02-06 00:00:00 2024-06-17 00:00:00 Heart failure, unspecified Heart failure, unspecified 2023-02-06 00:00:00 2024-06-17 00:00:00 Depression, unspecified Depression, unspecified 2023-02-06 00:00:00 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 2023-02-06 00:00:00 Hypotension, unspecified Hypotension, unspecified 2023-08-20 00:00:00 Fall on same level from slipping, tripping and stumbling with subsequent striking against furniture, subsequent encounter Fall on same level from slipping, tripping and stumbling with subsequent striking against furniture, subsequent encounter 2023-08-20 00:00:00 2024-06-17 00:00:00 Laceration without foreign body of other part of head, subsequent encounter Laceration without foreign body of other part of head, subsequent encounter 2023-08-20 00:00:00 2024-06-17 00:00:00 Contusion of left eyelid and periocular area, subsequent encounter Contusion of left eyelid and periocular area, subsequent encounter 2023-08-20 00:00:00 2024-06-17 00:00:00 Contusion of unspecified part of neck, subsequent encounter Contusion of unspecified part of neck, subsequent encounter 2023-08-20 00:00:00 2024-06-17 00:00:00 Contusion of thorax, unspecified, subsequent encounter Contusion of thorax, unspecified, subsequent encounter 2023-08-20 00:00:00 2024-06-17 00:00:00 Hemorrhage of bilateral orbit Hemorrhage of bilateral orbit 2023-08-20 00:00:00 2024-06-17 00:00:00 Thrombocytopenia, unspecified Thrombocytopenia, unspecified 2023-08-20 00:00:00 Anemia, unspecified Anemia, unspecified 00:00:00 Chronic atrial fibrillation, unspecified Chronic atrial fibrillation, unspecified 2023-08-20 00:00:00 Urinary tract infection, site not specified Urinary tract infection, site not specified 2023-08-20 00:00:00 2024-06-17 00:00:00 Chronic obstructive pulmonary disease with (acute) exacerbation Chronic obstructive pulmonary disease with (acute) exacerbation 2023-08-20 00:00:00 2024-06-17 00:00:00 Repeated falls Repeated falls 2023-08-20 00:00:00 Old myocardial infarction Old myocardial infarction 2023-08-20 00:00:00 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 2023-08-20 00:00:00 Ulcerative colitis, unspecified, without complications Ulcerative colitis, unspecified, without complications 2023-08-20 00:00:00 Cervical disc disorder with radiculopathy, unspecified cervical region Cervical disc disorder with radiculopathy, unspecified cervical region 2023-08-20 00:00:00 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 shelter (current) use of opiate analgesic 2023-08-20 00:00:00 Chronic systolic (congestive) heart failure Chronic systolic (congestive) heart failure 2024-06-16 00:00:00 Unspecified fracture of the lower end of left radius, subsequent encounter for closed fracture with routine healing Unspecified fracture of the lower end of left radius, subsequent encounter for closed fracture with routine healing 2024-06-16 00:00:00 Presence of other bone and tendon implants Presence of other bone and tendon implants 2024-06-16 00:00:00 Traumatic hemorrhage of cerebrum, unspecified, with loss of consciousness of unspecified duration, subsequent encounter Traumatic hemorrhage of cerebrum, unspecified, with loss of consciousness of unspecified duration, subsequent encounter 2024-06-16 00:00:00 Fracture of orbital floor, unspecified side, subsequent encounter for fracture with routine healing Fracture of orbital floor, unspecified side, subsequent encounter for fracture with routine healing 2024-06-16 00:00:00 2024-06-19 00:00:00 Fracture of orbital floor, right side, subsequent encounter for fracture with routine healing Fracture of orbital floor, right side, subsequent encounter for fracture with routine healing 2024-06-16 00:00:00 Hypertensive heart and chronic kidney disease with heart failure and stage 1 through stage 4 chronic kidney disease, or unspecified chronic kidney disease Hypertensive heart and chronic kidney disease with heart failure and stage 1 through stage 4 chronic kidney disease, or unspecified chronic kidney disease 2024-06-16 00:00:00 Chronic kidney disease, unspecified Chronic kidney disease, unspecified 2024-06-16 00:00:00 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 2024-06-16 00:00:00 Chronic obstructive pulmonary disease, unspecified Chronic obstructive pulmonary disease, unspecified 2024-06-16 00:00:00 Crohn's disease, unspecified, without complications Crohn's disease, unspecified, without complications 2024-06-16 00:00:00 Vitamin deficiency, unspecified Vitamin deficiency, unspecified 2024-06-16 00:00:00 Constipation, unspecified Constipation, unspecified 2024-06-16 00:00:00 Major depressive disorder, single episode, unspecified Major depressive disorder, single episode, unspecified 2024-06-16 00:00:00 Gastro-esophageal reflux disease without esophagitis Gastro-esophageal reflux disease without esophagitis 2024-06-16 00:00:00 Hereditary and idiopathic neuropathy, unspecified Hereditary and idiopathic neuropathy, unspecified 2024-06-16 00:00:00 [id number] Ping receives a therapeutic diet. (12) 2024-06-25 00:00:00 [id number] Ping receives a therapeutic diet. (12) LSS_COPD - Ping has diagnosis of COPD. 2024-06-29 00:00:00 LSS_COPD - Ping has diagnosis of COPD. LSS_Psychotropic Drug Use - Use of psychotropic drug use places Ping at risk for drug-related side effects. 2024-06-29 00:00:00 LSS_Psychotropic Drug Use - Use of psychotropic drug use places Ping at risk for drug-related side effects. LSS_Falls - Ping is at risk for falls/injury as evidenced by: history of falls, cognitive status/behavior, vision status, continence, mobility, balance. 2024-06-29 00:00:00 LSS_Falls - Ping is at risk for falls/injury as evidenced by: history of falls, cognitive status/behavior, vision status, continence, mobility, balance. LSS_Skin Integrity - (Potential Alteration of)- Ping is at risk for developing impaired skin integrity. 2024-06-29 00:00:00 LSS_Skin Integrity - (Potential Alteration of)- Ping is at risk for developing impaired skin integrity. LSS_ADLs - Ping has ADL selfcare deficit related to decreased mobility and muscle weakness 2024-06-29 00:00:00 LSS_ADLs - Ping has ADL selfcare deficit related to decreased mobility and muscle weakness LSS_Urinary Incontinence1 - Ping is occasionally incontinent. 2024-06-29 00:00:00 LSS_Urinary Incontinence1 - Ping is occasionally incontinent. LSS_Social Services- Ping's wishes will be followed (Advanced Directive/Code Status). 2024-06-29 00:00:00 LSS_Social Services- Ping's wishes will be followed (Advanced Directive/Code Status). LSS_Social Services- Ping will be involved in goal development to the best of his or her ability. 2024-06-29 00:00:00 LSS_Social Services- Ping will be involved in goal development to the best of his or her ability. LSS_Social Services- Ping has family/friends who are supportive. 2024-06-29 00:00:00 LSS_Social Services- Ping has family/friends who are supportive. LSS_Social Services- Ping's mobility level is different than prior level due to current medical condition. 2024-06-29 00:00:00 [facility]- Ping's mobility level is different than prior level due to current medical condition. [facility]- Ping has a dx of depression and is currently on an antidepressant. 2024-06-29 00:00:00 [facility]- Ping has a dx of depression and is currently on an antidepressant. [facility]- Ping will be involved in discharge planning. 2024-06-29 00:00:00 [facility]- Ping will be involved in discharge planning. Social History Observation Description Date Sex Female 1945 00:00 :00 Sex Female Treatment Plan Goals Goal Date Ping will demonstrate compliance with cardiac diet. 2024-06-25 00:00:00 Ping will maintain optimal respiratory status thru next review. 2024-06-29 00:00:00 Ping will be free from s/s of drug-related: hypotension, gait disturbance, cognitive impairment, behavioral impairment, ADL decline, decline in appetite, abnormal involuntary movement thru next review. 2024-06-29 00:00:00 Ping will receive the leas t dosage of the prescribed psychotropic drug(s) to ensure maximum functional ability both mentally and physically thru next review. 2024-06-29 00:00:00 Ping will not sustain a fa ll related injury by utilizing fall precautions through next review. 2024-06-29 00:00:00 Ping will have no alterati on in skin integrity thru next review. 2024-06-29 00:00:00 Ping will have increase in ADL independence by participating in therapy thru next review. 2024-06-29 00:00:00 Ping will achieve maximum control of the bladder and will reduce the number of incontinent episodes through next review. 2024-06-29 00:00:00 Ping is DNR. 2024-06-29 00:00:00 Ping will attend his or he r own person centered care plan meeting as tolerated. 2024-06-29 00:00:00 Ping will be involved in the discharge planning process. 2024-06-29 00:00:00 Ping will remain as independent as ezekiel yarbrough. 2024-06-29 00:00:00 Assist family/friends with continuing e caregiver role. 2024-06-29 00:00:00 Continue the relationship between Ping and support system. 2024-06-29 00:00:00 Ping will continue ordered therapy to attempt to return to prior level. 2024-06-29 00:00:00 Ping's mood will remain stable. 06-29 00:00:00 Ping will discharge back to home in e community. 2024-06-29 00:00:00 Vital Signs Vital Sign Measurement Date Systolic blood pressure 128.0 mm[Hg] 13:19:03 Diastolic blood pressure 69.0 mm[Hg] 2024-06 13:19:03 Heart Rate 95.0 /min 2024-07-07 18:19 :03 Body weight 217.8 [lb_av] 2024-07-07 15:08 :50 Systolic blood pressure 123.0 mm[Hg] 08:18:11 Diastolic blood pressure 77.0 mm[Hg] 2024-06 08:18:11 Systolic blood pressure 123.0 mm[Hg] 08:18:11 Diastolic blood pressure 77.0 mm[Hg] 2024-06 08:18:11 Heart Rate 93.0 /min 2024-07-07 13:18 :11 Heart Rate 93.0 /min 2024-07-07 13:18 :11 Pulse Oximetry 95.0 % 2024-07-07 07:16 :34 Systolic blood pressure 123.0 mm[Hg] 07:16:22 Diastolic blood pressure 77.0 mm[Hg] 2024-06 07:16:22 Pulse Oximetry 95.0 % 2024-07-07 07:16 :22 Heart Rate 93.0 /min 2024-07-07 12:16 :22 Body temperature 98.6 [degF] 2024-07-07 12:1 6:22 Respiratory rate 18.0 /min 2024-07-07 12:1 6:22 Pulse Oximetry 93.0 % 2024-07-07 04:21 :36 Systolic blood pressure 98.0 mm[Hg] 23:21:31 Diastolic blood pressure 62.0 mm[Hg] 2024-06 23:21:31 Pulse Oximetry 93.0 % 2024-07-06 23:21 :31 Heart Rate 95.0 /min 2024-07-07 04:21 :31 Body temperature 98.2 [degF] 2024-07-07 04:2 1:31 Respiratory rate 18.0 /min 2024-07-07 04:2 1:31 Pulse Oximetry 93.0 % 2024-07-06 21:18 :04 Systolic blood pressure 98.0 mm[Hg] 21:15:51 Diastolic blood pressure 62.0 mm[Hg] 2024-06 21:15:51 Systolic blood pressure 98.0 mm[Hg] 21:15:51 Diastolic blood pressure 62.0 mm[Hg] 2024-06 21:15:51 Heart Rate 95.0 /min 2024-07-07 02:15 :51 Heart Rate 95.0 /min 2024-07-07 02:15 :51 Body weight 213.0 [lb_av] 2024-07-06 22:19 :16 Systolic blood pressure 121.0 mm[Hg] 14:36:21 Diastolic blood pressure 86.0 mm[Hg] 2024-06 14:36:21 Heart Rate 90.0 /min 2024-07-06 19:36 :21 Systolic blood pressure 110.0 mm[Hg] 08:29:59 Diastolic blood pressure 76.0 mm[Hg] 2024-06 08:29:59 Systolic blood pressure 110.0 mm[Hg] 08:29:59 Diastolic blood pressure 76.0 mm[Hg] 2024-06 08:29:59 Systolic blood pressure 110.0 mm[Hg] 08:29:59 Diastolic blood pressure 76.0 mm[Hg] 2024-06 08:29:59 Pulse Oximetry 93.0 % 2024-07-06 08:29 :59 Pulse Oximetry 93.0 % 2024-07-06 08:29 :59 Heart Rate 84.0 /min 2024-07-06 13:29 :59 Heart Rate 84.0 /min 2024-07-06 13:29 :59 Heart Rate 84.0 /min 2024-07-06 13:29 :59 Body temperature 98.7 [degF] 2024-07-06 13:2 9:59 Respiratory rate 20.0 /min 2024-07-06 13:2 9:59 Pulse Oximetry 94.0 % 2024-07-06 04:40 :56 Systolic blood pressure 146.0 mm[Hg] 23:41:34 Diastolic blood pressure 87.0 mm[Hg] 2024-06 23:41:34 Pulse Oximetry 94.0 % 2024-07-05 23:41 :34 Heart Rate 94.0 /min 2024-07-06 04:41 :34 Body temperature 98.2 [degF] 2024-07-06 04:4 1:34 Respiratory rate 18.0 /min 2024-07-06 04:4 1:34 Systolic blood pressure 146.0 mm[Hg] 21:01:27 Diastolic blood pressure 87.0 mm[Hg] 2024-06 21:01:27 Systolic blood pressure 146.0 mm[Hg] 21:01:27 Diastolic blood pressure 87.0 mm[Hg] 2024-06 21:01:27 Pulse Oximetry 99.0 % 2024-07-05 21:01 :27 Heart Rate 94.0 /min 2024-07-06 02:01 :27 Heart Rate 94.0 /min 2024-07-06 02:01 :27 Body weight 213.1 [lb_av] 2024-07-05 21:36 :51 Systolic blood pressure 139.0 mm[Hg] 13:40:14 Diastolic blood pressure 74.0 mm[Hg] 2024-06 13:40:14 Heart Rate 75.0 /min 2024-07-05 18:40 :14 Systolic blood pressure 121.0 mm[Hg] 09:17:11 Diastolic blood pressure 78.0 mm[Hg] 2024-06 09:17:11 Pulse Oximetry 97.0 % 2024-07-05 09:17 :11 Pulse Oximetry 97.0 % 2024-07-05 09:17 :11 Heart Rate 82.0 /min 2024-07-05 14:17 :11 Body temperature 98.3 [degF] 2024-07-05 14:1 7:11 Respiratory rate 20.0 /min 2024-07-05 14:1 7:11 Systolic blood pressure 121.0 mm[Hg] 08:15:28 Diastolic blood pressure 78.0 mm[Hg] 2024-06 08:15:28 Systolic blood pressure 121.0 mm[Hg] 08:15:28 Diastolic blood pressure 78.0 mm[Hg] 2024-06 08:15:28 Heart Rate 82.0 /min 2024-07-05 13:15 :28 Heart Rate 82.0 /min 2024-07-05 13:15 :28 Systolic blood pressure 133.0 mm[Hg] 00:05:24 Diastolic blood pressure 89.0 mm[Hg] 2024-06 00:05:24 Pulse Oximetry 94.0 % 2024-07-05 00:05 :24 Pulse Oximetry 94.0 % 2024-07-05 00:05 :24 Pulse Oximetry 94.0 % 2024-07-05 00:05 :24 Heart Rate 94.0 /min 2024-07-05 05:05 :24 Body temperature 97.1 [degF] 2024-07-05 05:0 5:24 Respiratory rate 18.0 /min 2024-07-05 05:0 5:24 Systolic blood pressure 122.0 mm[Hg] 21:04:55 Diastolic blood pressure 80.0 mm[Hg] 2024-06 21:04:55 Systolic blood pressure 122.0 mm[Hg] 21:04:55 Diastolic blood pressure 80.0 mm[Hg] 2024-06 21:04:55 Heart Rate 94.0 /min 2024-07-05 02:04 :55 Heart Rate 94.0 /min 2024-07-05 02:04 :55 Body weight 212.8 [lb_av] 2024-07-04 21:09 :01 Systolic blood pressure 119.0 mm[Hg] 13:27:00 Diastolic blood pressure 83.0 mm[Hg] 2024-06 13:27:00 Heart Rate 98.0 /min 2024-07-04 18:27 :00 Systolic blood pressure 114.0 mm[Hg] 10:56:23 Diastolic blood pressure 66.0 mm[Hg] 2024-06 10:56:23 Pulse Oximetry 93.0 % 2024-07-04 10:56 :23 Pulse Oximetry 93.0 % 2024-07-04 10:56 :23 Heart Rate 95.0 /min 2024-07-04 15:56 :23 Body temperature 98.3 [degF] 2024-07-04 15:5 6:23 Respiratory rate 18.0 /min 2024-07-04 15:5 6:23 Systolic blood pressure 104.0 mm[Hg] 07:51:15 Diastolic blood pressure 66.0 mm[Hg] 2024-06 07:51:15 Systolic blood pressure 104.0 mm[Hg] 07:51:15 Diastolic blood pressure 66.0 mm[Hg] 2024-06 07:51:15 Heart Rate 95.0 /min 2024-07-04 12:51 :15 Heart Rate 95.0 /min 2024-07-04 12:51 :15 Systolic blood pressure 114.0 mm[Hg] 22:38:37 Diastolic blood pressure 68.0 mm[Hg] 2024-06 22:38:37 Pulse Oximetry 97.0 % 2024-07-03 22:38 :37 Pulse Oximetry 97.0 % 2024-07-03 22:38 :37 Pulse Oximetry 97.0 % 2024-07-03 22:38 :37 Heart Rate 89.0 /min 2024-07-04 03:38 :37 Body temperature 97.8 [degF] 2024-07-04 03:3 8:37 Respiratory rate 18.0 /min 2024-07-04 03:3 8:37 Systolic blood pressure 114.0 mm[Hg] 19:22:00 Diastolic blood pressure 68.0 mm[Hg] 2024-06 19:22:00 Systolic blood pressure 114.0 mm[Hg] 19:22:00 Diastolic blood pressure 68.0 mm[Hg] 2024-06 19:22:00 Heart Rate 89.0 /min 2024-07-04 00:22 :00 Heart Rate 89.0 /min 2024-07-04 00:22 :00 Body weight 213.4 [lb_av] 2024-07-03 20:44 :08 Systolic blood pressure 95.0 mm[Hg] 15:19:39 Diastolic blood pressure 59.0 mm[Hg] 2024-06 15:19:39 Heart Rate 87.0 /min 2024-07-03 20:19 :39 Systolic blood pressure 149.0 mm[Hg] 08:00:07 Diastolic blood pressure 88.0 mm[Hg] 2024-06 08:00:07 Systolic blood pressure 149.0 mm[Hg] 08:00:07 Diastolic blood pressure 88.0 mm[Hg] 2024-06 08:00:07 Systolic blood pressure 149.0 mm[Hg] 08:00:07 Diastolic blood pressure 88.0 mm[Hg] 2024-06 08:00:07 Heart Rate 77.0 /min 2024-07-03 13:00 :07 Heart Rate 77.0 /min 2024-07-03 13:00 :07 Systolic blood pressure 149.0 mm[Hg] 07:17:26 Diastolic blood pressure 88.0 mm[Hg] 2024-06 07:17:26 Pulse Oximetry 96.0 % 2024-07-03 07:17 :26 Pulse Oximetry 96.0 % 2024-07-03 07:17 :26 Heart Rate 77.0 /min 2024-07-03 12:17 :26 Body temperature 98.2 [degF] 2024-07-03 12:1 7:26 Respiratory rate 20.0 /min 2024-07-03 12:1 7:26 Pulse Oximetry 95.0 % 2024-07-02 22:24 :56 Systolic blood pressure 111.0 mm[Hg] 21:46:18 Diastolic blood pressure 66.0 mm[Hg] 2024-06 21:46:18 Pulse Oximetry 94.0 % 2024-07-02 21:46 :18 Pulse Oximetry 94.0 % 2024-07-02 21:46 :18 Heart Rate 99.0 /min 2024-07-03 02:46 :18 Body temperature 98.5 [degF] 2024-07-03 02:4 6:18 Respiratory rate 18.0 /min 2024-07-03 02:4 6:18 Systolic blood pressure 111.0 mm[Hg] 20:02:29 Diastolic blood pressure 66.0 mm[Hg] 2024-06 20:02:29 Systolic blood pressure 111.0 mm[Hg] 20:02:29 Diastolic blood pressure 66.0 mm[Hg] 2024-06 20:02:29 Heart Rate 99.0 /min 2024-07-03 01:02 :29 Heart Rate 99.0 /min 2024-07-03 01:02 :29 Systolic blood pressure 113.0 mm[Hg] 15:37:54 Diastolic blood pressure 69.0 mm[Hg] 2024-06 15:37:54 Heart Rate 87.0 /min 2024-07-02 20:37 :54 Body weight 216.8 [lb_av] 2024-07-02 15:31 :41 Systolic blood pressure 125.0 mm[Hg] 08:45:41 Diastolic blood pressure 80.0 mm[Hg] 2024-06 08:45:41 Systolic blood pressure 125.0 mm[Hg] 08:45:41 Diastolic blood pressure 80.0 mm[Hg] 2024-06 08:45:41 Systolic blood pressure 125.0 mm[Hg] 08:45:41 Diastolic blood pressure 80.0 mm[Hg] 2024-06 08:45:41 Systolic blood pressure 125.0 mm[Hg] 08:45:41 Diastolic blood pressure 80.0 mm[Hg] 2024-06 08:45:41 Pulse Oximetry 96.0 % 2024-07-02 08:45 :41 Pulse Oximetry 96.0 % 2024-07-02 08:45 :41 Heart Rate 91.0 /min 2024-07-02 13:45 :41 Heart Rate 91.0 /min 2024-07-02 13:45 :41 Heart Rate 91.0 /min 2024-07-02 13:45 :41 Body temperature 98.3 [degF] 2024-07-02 13:4 5:41 Respiratory rate 20.0 /min 2024-07-02 13:4 5:41 Systolic blood pressure 111.0 mm[Hg] 22:27:57 Diastolic blood pressure 68.0 mm[Hg] 2024-06 22:27:57 Pulse Oximetry 97.0 % 2024-07-01 22:27 :57 Pulse Oximetry 97.0 % 2024-07-01 22:27 :57 Pulse Oximetry 97.0 % 2024-07-01 22:27 :57 Heart Rate 78.0 /min 2024-07-02 03:27 :57 Body temperature 97.9 [degF] 2024-07-02 03:2 7:57 Respiratory rate 22.0 /min 2024-07-02 03:2 7:57 Systolic blood pressure 111.0 mm[Hg] 19:54:12 Diastolic blood pressure 68.0 mm[Hg] 2024-06 19:54:12 Systolic blood pressure 111.0 mm[Hg] 19:54:12 Diastolic blood pressure 68.0 mm[Hg] 2024-06 19:54:12 Heart Rate 78.0 /min 2024-07-02 00:54 :12 Heart Rate 78.0 /min 2024-07-02 00:54 :12 Systolic blood pressure 121.0 mm[Hg] 13:36:25 Diastolic blood pressure 71.0 mm[Hg] 2024-06 13:36:25 Heart Rate 90.0 /min 2024-07-01 18:36 :25 Body weight 214.4 [lb_av] 2024-07-01 17:02 :37 Systolic blood pressure 105.0 mm[Hg] 08:47:44 Diastolic blood pressure 68.0 mm[Hg] 2024-06 08:47:44 Systolic blood pressure 105.0 mm[Hg] 08:47:44 Diastolic blood pressure 68.0 mm[Hg] 2024-06 08:47:44 Systolic blood pressure 105.0 mm[Hg] 08:47:44 Diastolic blood pressure 68.0 mm[Hg] 2024-06 08:47:44 Heart Rate 80.0 /min 2024-07-01 13:47 :44 Heart Rate 80.0 /min 2024-07-01 13:47 :44 Systolic blood pressure 105.0 mm[Hg] 07:35:51 Diastolic blood pressure 68.0 mm[Hg] 2024-06 07:35:51 Pulse Oximetry 92.0 % 2024-07-01 07:35 :51 Pulse Oximetry 92.0 % 2024-07-01 07:35 :51 Heart Rate 80.0 /min 2024-07-01 12:35 :51 Body temperature 98.5 [degF] 2024-07-01 12:3 5:51 Respiratory rate 20.0 /min 2024-07-01 12:3 5:51 Pulse Oximetry 94.0 % 2024-07-01 01:40 :12 Systolic blood pressure 109.0 mm[Hg] 19:37:15 Diastolic blood pressure 72.0 mm[Hg] 2024-06 19:37:15 Systolic blood pressure 109.0 mm[Hg] 19:37:15 Diastolic blood pressure 72.0 mm[Hg] 2024-06 19:37:15 Systolic blood pressure 109.0 mm[Hg] 19:37:15 Diastolic blood pressure 72.0 mm[Hg] 2024-06 19:37:15 Pulse Oximetry 95.0 % 2024-06-30 19:37 :15 Pulse Oximetry 95.0 % 2024-06-30 19:37 :15 Heart Rate 82.0 /min 2024-07-01 00:37 :15 Heart Rate 82.0 /min 2024-07-01 00:37 :15 Heart Rate 82.0 /min 2024-07-01 00:37 :15 Body temperature 97.8 [degF] 2024-07-01 00:3 7:15 Respiratory rate 20.0 /min 2024-07-01 00:3 7:15 Systolic blood pressure 105.0 mm[Hg] 13:30:25 Diastolic blood pressure 68.0 mm[Hg] 2024-06 13:30:25 Heart Rate 102.0 /min 2024-06-30 18:30 :25 Systolic blood pressure 120.0 mm[Hg] 10:13:48 Diastolic blood pressure 73.0 mm[Hg] 2024-06 10:13:48 Pulse Oximetry 93.0 % 2024-06-30 10:13 :48 Pulse Oximetry 93.0 % 2024-06-30 10:13 :48 Body weight 214.6 [lb_av] 2024-06-30 15:13 :48 Heart Rate 72.0 /min 2024-06-30 15:13 :48 Body temperature 98.2 [degF] 2024-06-30 15:1 3:48 Respiratory rate 20.0 /min 2024-06-30 15:1 3:48 Systolic blood pressure 120.0 mm[Hg] 08:08:10 Diastolic blood pressure 73.0 mm[Hg] 2024-06 08:08:10 Systolic blood pressure 120.0 mm[Hg] 08:08:10 Diastolic blood pressure 73.0 mm[Hg] 2024-06 08:08:10 Systolic blood pressure 120.0 mm[Hg] 08:08:10 Diastolic blood pressure 73.0 mm[Hg] 2024-06 08:08:10 Heart Rate 72.0 /min 2024-06-30 13:08 :10 Heart Rate 72.0 /min 2024-06-30 13:08 :10 Pulse Oximetry 96.0 % 2024-06-29 23:52 :05 Systolic blood pressure 128.0 mm[Hg] 21:31:36 Diastolic blood pressure 79.0 mm[Hg] 2024-06 21:31:36 Systolic blood pressure 128.0 mm[Hg] 21:31:36 Diastolic blood pressure 79.0 mm[Hg] 2024-06 21:31:36 Systolic blood pressure 128.0 mm[Hg] 21:31:36 Diastolic blood pressure 79.0 mm[Hg] 2024-06 21:31:36 Pulse Oximetry 96.0 % 2024-06-29 21:31 :36 Heart Rate 86.0 /min 2024-06-30 02:31 :36 Heart Rate 86.0 /min 2024-06-30 02:31 :36 Heart Rate 86.0 /min 2024-06-30 02:31 :36 Body temperature 98.4 [degF] 2024-06-30 02:3 1:36 Respiratory rate 18.0 /min 2024-06-30 02:3 1:36 Body weight 219.0 [lb_av] 2024-06-29 22:33 :50 Pulse Oximetry 95.0 % 2024-06-29 17:33 :33 Pulse Oximetry 95.0 % 2024-06-29 17:33 :33 Systolic blood pressure 128.0 mm[Hg] 13:21:33 Diastolic blood pressure 80.0 mm[Hg] 2024-06 13:21:33 Heart Rate 74.0 /min 2024-06-29 18:21 :33 Systolic blood pressure 117.0 mm[Hg] 10:55:35 Diastolic blood pressure 77.0 mm[Hg] 2024-06 10:55:35 Pulse Oximetry 95.0 % 2024-06-29 10:55 :35 Heart Rate 77.0 /min 2024-06-29 15:55 :35 Body temperature 98.2 [degF] 2024-06-29 15:5 5:35 Respiratory rate 18.0 /min 2024-06-29 15:5 5:35 Systolic blood pressure 117.0 mm[Hg] 08:34:48 Diastolic blood pressure 77.0 mm[Hg] 2024-06 08:34:48 Systolic blood pressure 117.0 mm[Hg] 08:34:48 Diastolic blood pressure 77.0 mm[Hg] 2024-06 08:34:48 Systolic blood pressure 117.0 mm[Hg] 08:34:48 Diastolic blood pressure 77.0 mm[Hg] 2024-06 08:34:48 Heart Rate 74.0 /min 2024-06-29 13:34 :48 Heart Rate 74.0 /min 2024-06-29 13:34 :48 Systolic blood pressure 117.0 mm[Hg] 22:37:51 Diastolic blood pressure 66.0 mm[Hg] 2024-06 22:37:51 Pulse Oximetry 96.0 % 2024-06-28 22:37 :51 Pulse Oximetry 96.0 % 2024-06-28 22:37 :51 Pulse Oximetry 96.0 % 2024-06-28 22:37 :51 Heart Rate 96.0 /min 2024-06-29 03:37 :51 Body temperature 98.3 [degF] 2024-06-29 03:3 7:51 Respiratory rate 18.0 /min 2024-06-29 03:3 7:51 Systolic blood pressure 117.0 mm[Hg] 19:34:09 Diastolic blood pressure 66.0 mm[Hg] 2024-06 19:34:09 Systolic blood pressure 117.0 mm[Hg] 19:34:09 Diastolic blood pressure 66.0 mm[Hg] 2024-06 19:34:09 Heart Rate 93.0 /min 2024-06-29 00:34 :09 Heart Rate 93.0 /min 2024-06-29 00:34 :09 Systolic blood pressure 108.0 mm[Hg] 14:14:24 Diastolic blood pressure 71.0 mm[Hg] 2024-06 14:14:24 Heart Rate 85.0 /min 2024-06-28 19:14 :24 Body weight 220.2 [lb_av] 2024-06-28 17:04 :37 Systolic blood pressure 131.0 mm[Hg] 09:12:35 Diastolic blood pressure 71.0 mm[Hg] 2024-06 09:12:35 Pulse Oximetry 94.0 % 2024-06-28 09:12 :35 Pulse Oximetry 94.0 % 2024-06-28 09:12 :35 Heart Rate 92.0 /min 2024-06-28 14:12 :35 Body temperature 97.8 [degF] 2024-06-28 14:1 2:35 Respiratory rate 20.0 /min 2024-06-28 14:1 2:35 Systolic blood pressure 131.0 mm[Hg] 08:50:30 Diastolic blood pressure 71.0 mm[Hg] 2024-06 08:50:30 Systolic blood pressure 131.0 mm[Hg] 08:50:30 Diastolic blood pressure 71.0 mm[Hg] 2024-06 08:50:30 Systolic blood pressure 131.0 mm[Hg] 08:50:30 Diastolic blood pressure 71.0 mm[Hg] 2024-06 08:50:30 Heart Rate 92.0 /min 2024-06-28 13:50 :30 Heart Rate 92.0 /min 2024-06-28 13:50 :30 Systolic blood pressure 97.0 mm[Hg] 22:24:56 Diastolic blood pressure 65.0 mm[Hg] 2024-06 22:24:56 Pulse Oximetry 96.0 % 2024-06-27 22:24 :56 Pulse Oximetry 96.0 % 2024-06-27 22:24 :56 Pulse Oximetry 96.0 % 2024-06-27 22:24 :56 Heart Rate 102.0 /min 2024-06-28 03:24 :56 Body temperature 97.8 [degF] 2024-06-28 03:2 4:56 Respiratory rate 18.0 /min 2024-06-28 03:2 4:56 Systolic blood pressure 97.0 mm[Hg] 20:14:47 Diastolic blood pressure 65.0 mm[Hg] 2024-06 20:14:47 Systolic blood pressure 97.0 mm[Hg] 20:14:47 Diastolic blood pressure 65.0 mm[Hg] 2024-06 20:14:47 Heart Rate 102.0 /min 2024-06-28 01:14 :47 Heart Rate 102.0 /min 2024-06-28 01:14 :47 Systolic blood pressure 105.0 mm[Hg] 14:30:10 Diastolic blood pressure 63.0 mm[Hg] 2024-06 14:30:10 Heart Rate 65.0 /min 2024-06-27 19:30 :10 Body weight 219.2 [lb_av] 2024-06-27 14:10 :33 Systolic blood pressure 134.0 mm[Hg] 08:22:55 Diastolic blood pressure 91.0 mm[Hg] 2024-06 08:22:55 Systolic blood pressure 134.0 mm[Hg] 08:22:55 Diastolic blood pressure 91.0 mm[Hg] 2024-06 08:22:55 Systolic blood pressure 134.0 mm[Hg] 08:22:55 Diastolic blood pressure 91.0 mm[Hg] 2024-06 08:22:55 Heart Rate 93.0 /min 2024-06-27 13:22 :55 Heart Rate 93.0 /min 2024-06-27 13:22 :55 Systolic blood pressure 134.0 mm[Hg] 08:03:42 Diastolic blood pressure 91.0 mm[Hg] 2024-06 08:03:42 Pulse Oximetry 96.0 % 2024-06-27 08:03 :42 Pulse Oximetry 96.0 % 2024-06-27 08:03 :42 Heart Rate 93.0 /min 2024-06-27 13:03 :42 Body temperature 98.2 [degF] 2024-06-27 13:0 3:42 Respiratory rate 20.0 /min 2024-06-27 13:0 3:42 Systolic blood pressure 118.0 mm[Hg] 23:34:04 Diastolic blood pressure 58.0 mm[Hg] 2024-06 23:34:04 Pulse Oximetry 94.0 % 2024-06-26 23:34 :04 Pulse Oximetry 94.0 % 2024-06-26 23:34 :04 Pulse Oximetry 94.0 % 2024-06-26 23:34 :04 Heart Rate 88.0 /min 2024-06-27 04:34 :04 Body temperature 98.2 [degF] 2024-06-27 04:3 4:04 Respiratory rate 18.0 /min 2024-06-27 04:3 4:04 Systolic blood pressure 118.0 mm[Hg] 20:41:54 Diastolic blood pressure 58.0 mm[Hg] 2024-06 20:41:54 Systolic blood pressure 118.0 mm[Hg] 20:41:54 Diastolic blood pressure 58.0 mm[Hg] 2024-06 20:41:54 Heart Rate 88.0 /min 2024-06-27 01:41 :54 Heart Rate 88.0 /min 2024-06-27 01:41 :54 Systolic blood pressure 131.0 mm[Hg] 14:16:34 Diastolic blood pressure 92.0 mm[Hg] 2024-06 14:16:34 Heart Rate 88.0 /min 2024-06-26 19:16 :34 Body weight 216.6 [lb_av] 2024-06-26 17:06 :18 Systolic blood pressure 143.0 mm[Hg] 08:49:20 Diastolic blood pressure 83.0 mm[Hg] 2024-06 08:49:20 Systolic blood pressure 143.0 mm[Hg] 08:49:20 Diastolic blood pressure 83.0 mm[Hg] 2024-06 08:49:20 Systolic blood pressure 143.0 mm[Hg] 08:49:20 Diastolic blood pressure 83.0 mm[Hg] 2024-06 08:49:20 Systolic blood pressure 143.0 mm[Hg] 08:49:20 Diastolic blood pressure 83.0 mm[Hg] 2024-06 08:49:20 Pulse Oximetry 94.0 % 2024-06-26 08:49 :20 Pulse Oximetry 94.0 % 2024-06-26 08:49 :20 Heart Rate 100.0 /min 2024-06-26 13:49 :20 Heart Rate 100.0 /min 2024-06-26 13:49 :20 Heart Rate 100.0 /min 2024-06-26 13:49 :20 Body temperature 98.2 [degF] 2024-06-26 13:4 9:20 Respiratory rate 18.0 /min 2024-06-26 13:4 9:20 Pulse Oximetry 92.0 % 2024-06-26 05:15 :11 Systolic blood pressure 103.0 mm[Hg] 23:42:14 Diastolic blood pressure 68.0 mm[Hg] 2024-06 23:42:14 Pulse Oximetry 98.0 % 2024-06-25 23:42 :14 Pulse Oximetry 98.0 % 2024-06-25 23:42 :14 Heart Rate 76.0 /min 2024-06-26 04:42 :14 Body temperature 98.0 [degF] 2024-06-26 04:4 2:14 Respiratory rate 20.0 /min 2024-06-26 04:4 2:14 Systolic blood pressure 103.0 mm[Hg] 21:13:40 Diastolic blood pressure 68.0 mm[Hg] 2024-06 21:13:40 Systolic blood pressure 103.0 mm[Hg] 21:13:40 Diastolic blood pressure 68.0 mm[Hg] 2024-06 21:13:40 Heart Rate 76.0 /min 2024-06-26 02:13 :40 Heart Rate 76.0 /min 2024-06-26 02:13 :40 Systolic blood pressure 128.0 mm[Hg] 13:20:14 Diastolic blood pressure 71.0 mm[Hg] 2024-06 13:20:14 Heart Rate 84.0 /min 2024-06-25 18:20 :14 Body weight 219.4 [lb_av] 2024-06-25 16:57 :15 Systolic blood pressure 127.0 mm[Hg] 07:58:17 Diastolic blood pressure 76.0 mm[Hg] 2024-06 07:58:17 Pulse Oximetry 90.0 % 2024-06-25 07:58 :17 Heart Rate 78.0 /min 2024-06-25 12:58 :17 Body temperature 98.7 [degF] 2024-06-25 12:5 8:17 Respiratory rate 20.0 /min 2024-06-25 12:5 8:17 Systolic blood pressure 127.0 mm[Hg] 07:57:22 Diastolic blood pressure 76.0 mm[Hg] 2024-06 07:57:22 Systolic blood pressure 127.0 mm[Hg] 07:57:22 Diastolic blood pressure 76.0 mm[Hg] 2024-06 07:57:22 Systolic blood pressure 127.0 mm[Hg] 07:57:22 Diastolic blood pressure 76.0 mm[Hg] 2024-06 07:57:22 Heart Rate 78.0 /min 2024-06-25 12:57 :22 Heart Rate 78.0 /min 2024-06-25 12:57 :22 Pulse Oximetry 90.0 % 2024-06-25 07:50 :08 Pulse Oximetry 95.0 % 2024-06-24 22:22 :04 Systolic blood pressure 119.0 mm[Hg] 19:08:36 Diastolic blood pressure 63.0 mm[Hg] 2024-06 19:08:36 Systolic blood pressure 119.0 mm[Hg] 19:08:36 Diastolic blood pressure 63.0 mm[Hg] 2024-06 19:08:36 Systolic blood pressure 119.0 mm[Hg] 19:08:36 Diastolic blood pressure 63.0 mm[Hg] 2024-06 19:08:36 Pulse Oximetry 95.0 % 2024-06-24 19:08 :36 Pulse Oximetry 95.0 % 2024-06-24 19:08 :36 Heart Rate 77.0 /min 2024-06-25 00:08 :36 Heart Rate 77.0 /min 2024-06-25 00:08 :36 Heart Rate 77.0 /min 2024-06-25 00:08 :36 Body temperature 98.4 [degF] 2024-06-25 00:0 8:36 Respiratory rate 18.0 /min 2024-06-25 00:0 8:36 Systolic blood pressure 134.0 mm[Hg] 13:53:14 Diastolic blood pressure 69.0 mm[Hg] 2024-06 13:53:14 Heart Rate 87.0 /min 2024-06-24 18:53 :14 Body weight 219.0 [lb_av] 2024-06-24 14:09 :15 Systolic blood pressure 131.0 mm[Hg] 08:15:46 Diastolic blood pressure 51.0 mm[Hg] 2024-06 08:15:46 Systolic blood pressure 131.0 mm[Hg] 08:15:46 Diastolic blood pressure 51.0 mm[Hg] 2024-06 08:15:46 Systolic blood pressure 131.0 mm[Hg] 08:15:46 Diastolic blood pressure 51.0 mm[Hg] 2024-06 08:15:46 Heart Rate 73.0 /min 2024-06-24 13:15 :46 Heart Rate 73.0 /min 2024-06-24 13:15 :46 Systolic blood pressure 131.0 mm[Hg] 07:26:19 Diastolic blood pressure 51.0 mm[Hg] 2024-06 07:26:19 Pulse Oximetry 94.0 % 2024-06-24 07:26 :19 Pulse Oximetry 94.0 % 2024-06-24 07:26 :19 Heart Rate 73.0 /min 2024-06-24 12:26 :19 Body temperature 98.3 [degF] 2024-06-24 12:2 6:19 Respiratory rate 18.0 /min 2024-06-24 12:2 6:19 Systolic blood pressure 144.0 mm[Hg] 22:34:01 Diastolic blood pressure 82.0 mm[Hg] 2024-06 22:34:01 Pulse Oximetry 96.0 % 2024-06-23 22:34 :01 Pulse Oximetry 96.0 % 2024-06-23 22:34 :01 Pulse Oximetry 96.0 % 2024-06-23 22:34 :01 Heart Rate 96.0 /min 2024-06-24 03:34 :01 Body temperature 98.2 [degF] 2024-06-24 03:3 4:01 Respiratory rate 18.0 /min 2024-06-24 03:3 4:01 Systolic blood pressure 144.0 mm[Hg] 21:04:17 Diastolic blood pressure 82.0 mm[Hg] 2024-06 21:04:17 Systolic blood pressure 144.0 mm[Hg] 21:04:17 Diastolic blood pressure 82.0 mm[Hg] 2024-06 21:04:17 Heart Rate 82.0 /min 2024-06-24 02:04 :17 Heart Rate 82.0 /min 2024-06-24 02:04 :17 Systolic blood pressure 128.0 mm[Hg] 14:46:50 Diastolic blood pressure 72.0 mm[Hg] 2024-06 14:46:50 Heart Rate 74.0 /min 2024-06-23 19:46 :50 Body weight 215.4 [lb_av] 2024-06-23 14:51 :00 Systolic blood pressure 132.0 mm[Hg] 08:17:03 Diastolic blood pressure 76.0 mm[Hg] 2024-06 08:17:03 Systolic blood pressure 132.0 mm[Hg] 08:17:03 Diastolic blood pressure 76.0 mm[Hg] 2024-06 08:17:03 Systolic blood pressure 132.0 mm[Hg] 08:17:03 Diastolic blood pressure 76.0 mm[Hg] 2024-06 08:17:03 Heart Rate 93.0 /min 2024-06-23 13:17 :03 Heart Rate 93.0 /min 2024-06-23 13:17 :03 Systolic blood pressure 132.0 mm[Hg] 07:28:32 Diastolic blood pressure 76.0 mm[Hg] 2024-06 07:28:32 Pulse Oximetry 95.0 % 2024-06-23 07:28 :32 Pulse Oximetry 95.0 % 2024-06-23 07:28 :32 Heart Rate 93.0 /min 2024-06-23 12:28 :32 Body temperature 98.2 [degF] 2024-06-23 12:2 8:32 Respiratory rate 18.0 /min 2024-06-23 12:2 8:32 Pulse Oximetry 92.0 % 2024-06-23 04:33 :34 Systolic blood pressure 126.0 mm[Hg] 23:41:08 Diastolic blood pressure 69.0 mm[Hg] 2024-05 23:41:08 Pulse Oximetry 97.0 % 2024-06-22 23:41 :08 Heart Rate 73.0 /min 2024-06-23 04:41 :08 Body temperature 98.3 [degF] 2024-06-23 04:4 1:08 Respiratory rate 18.0 /min 2024-06-23 04:4 1:08 Systolic blood pressure 126.0 mm[Hg] 20:40:42 Diastolic blood pressure 69.0 mm[Hg] 2024-05 20:40:42 Systolic blood pressure 126.0 mm[Hg] 20:40:42 Diastolic blood pressure 69.0 mm[Hg] 2024-05 20:40:42 Pulse Oximetry 97.0 % 2024-06-22 20:40 :42 Heart Rate 73.0 /min 2024-06-23 01:40 :42 Heart Rate 73.0 /min 2024-06-23 01:40 :42 Systolic blood pressure 121.0 mm[Hg] 14:20:29 Diastolic blood pressure 68.0 mm[Hg] 2024-05 14:20:29 Heart Rate 75.0 /min 2024-06-22 19:20 :29 Systolic blood pressure 120.0 mm[Hg] 08:31:26 Diastolic blood pressure 82.0 mm[Hg] 2024-05 08:31:26 Systolic blood pressure 120.0 mm[Hg] 08:31:26 Diastolic blood pressure 82.0 mm[Hg] 2024-05 08:31:26 Systolic blood pressure 120.0 mm[Hg] 08:31:26 Diastolic blood pressure 82.0 mm[Hg] 2024-05 08:31:26 Systolic blood pressure 120.0 mm[Hg] 08:31:26 Diastolic blood pressure 82.0 mm[Hg] 2024-05 08:31:26 Pulse Oximetry 96.0 % 2024-06-22 08:31 :26 Pulse Oximetry 96.0 % 2024-06-22 08:31 :26 Heart Rate 71.0 /min 2024-06-22 13:31 :26 Heart Rate 71.0 /min 2024-06-22 13:31 :26 Heart Rate 71.0 /min 2024-06-22 13:31 :26 Body temperature 98.2 [degF] 2024-06-22 13:3 1:26 Respiratory rate 20.0 /min 2024-06-22 13:3 1:26 Pulse Oximetry 92.0 % 2024-06-22 05:45 :36 Systolic blood pressure 129.0 mm[Hg] 23:00:14 Diastolic blood pressure 78.0 mm[Hg] 2024-05 23:00:14 Pulse Oximetry 95.0 % 2024-06-21 23:00 :14 Heart Rate 84.0 /min 2024-06-22 04:00 :14 Body temperature 98.2 [degF] 2024-06-22 04:0 0:14 Respiratory rate 18.0 /min 2024-06-22 04:0 0:14 Systolic blood pressure 146.0 mm[Hg] 21:01:53 Diastolic blood pressure 86.0 mm[Hg] 2024-05 21:01:53 Systolic blood pressure 146.0 mm[Hg] 21:01:53 Diastolic blood pressure 86.0 mm[Hg] 2024-05 21:01:53 Pulse Oximetry 95.0 % 2024-06-21 21:01 :53 Heart Rate 84.0 /min 2024-06-22 02:01 :53 Heart Rate 84.0 /min 2024-06-22 02:01 :53 Systolic blood pressure 130.0 mm[Hg] 14:07:33 Diastolic blood pressure 91.0 mm[Hg] 2024-05 14:07:33 Heart Rate 85.0 /min 2024-06-21 19:07 :33 Body weight 214.2 [lb_av] 2024-06-21 16:51 :03 Systolic blood pressure 106.0 mm[Hg] 08:29:04 Diastolic blood pressure 64.0 mm[Hg] 2024-05 08:29:04 Pulse Oximetry 94.0 % 2024-06-21 08:29 :04 Pulse Oximetry 94.0 % 2024-06-21 08:29 :04 Heart Rate 73.0 /min 2024-06-21 13:29 :04 Body temperature 98.3 [degF] 2024-06-21 13:2 9:04 Respiratory rate 20.0 /min 2024-06-21 13:2 9:04 Systolic blood pressure 106.0 mm[Hg] 08:15:29 Diastolic blood pressure 64.0 mm[Hg] 2024-05 08:15:29 Systolic blood pressure 106.0 mm[Hg] 08:15:29 Diastolic blood pressure 64.0 mm[Hg] 2024-05 08:15:29 Systolic blood pressure 106.0 mm[Hg] 08:15:29 Diastolic blood pressure 64.0 mm[Hg] 2024-05 08:15:29 Heart Rate 73.0 /min 2024-06-21 13:15 :29 Heart Rate 73.0 /min 2024-06-21 13:15 :29 Pulse Oximetry 93.0 % 2024-06-21 03:39 :52 Systolic blood pressure 133.0 mm[Hg] 22:58:36 Diastolic blood pressure 80.0 mm[Hg] 2024-05 22:58:36 Pulse Oximetry 91.0 % 2024-06-20 22:58 :36 Pulse Oximetry 91.0 % 2024-06-20 22:58 :36 Heart Rate 102.0 /min 2024-06-21 03:58 :36 Body temperature 98.3 [degF] 2024-06-21 03:5 8:36 Respiratory rate 16.0 /min 2024-06-21 03:5 8:36 Systolic blood pressure 133.0 mm[Hg] 20:57:12 Diastolic blood pressure 80.0 mm[Hg] 2024-05 20:57:12 Systolic blood pressure 133.0 mm[Hg] 20:57:12 Diastolic blood pressure 80.0 mm[Hg] 2024-05 20:57:12 Heart Rate 102.0 /min 2024-06-21 01:57 :12 Heart Rate 102.0 /min 2024-06-21 01:57 :12 Systolic blood pressure 105.0 mm[Hg] 13:50:50 Diastolic blood pressure 71.0 mm[Hg] 2024-05 13:50:50 Heart Rate 73.0 /min 2024-06-20 18:50 :50 Systolic blood pressure 122.0 mm[Hg] 09:51:53 Diastolic blood pressure 83.0 mm[Hg] 2024-05 09:51:53 Pulse Oximetry 95.0 % 2024-06-20 09:51 :53 Pulse Oximetry 95.0 % 2024-06-20 09:51 :53 Body weight 212.2 [lb_av] 2024-06-20 14:51 :53 Heart Rate 94.0 /min 2024-06-20 14:51 :53 Body temperature 98.5 [degF] 2024-06-20 14:5 1:53 Respiratory rate 20.0 /min 2024-06-20 14:5 1:53 Systolic blood pressure 122.0 mm[Hg] 07:45:14 Diastolic blood pressure 83.0 mm[Hg] 2024-05 07:45:14 Systolic blood pressure 122.0 mm[Hg] 07:45:14 Diastolic blood pressure 83.0 mm[Hg] 2024-05 07:45:14 Systolic blood pressure 122.0 mm[Hg] 07:45:14 Diastolic blood pressure 83.0 mm[Hg] 2024-05 07:45:14 Heart Rate 94.0 /min 2024-06-20 12:45 :14 Heart Rate 94.0 /min 2024-06-20 12:45 :14 Systolic blood pressure 100.0 mm[Hg] 23:18:31 Diastolic blood pressure 58.0 mm[Hg] 2024-05 23:18:31 Pulse Oximetry 95.0 % 2024-06-19 23:18 :31 Pulse Oximetry 95.0 % 2024-06-19 23:18 :31 Heart Rate 86.0 /min 2024-06-20 04:18 :31 Body temperature 98.2 [degF] 2024-06-20 04:1 8:31 Respiratory rate 20.0 /min 2024-06-20 04:1 8:31 Systolic blood pressure 100.0 mm[Hg] 20:22:03 Diastolic blood pressure 58.0 mm[Hg] 2024-05 20:22:03 Systolic blood pressure 100.0 mm[Hg] 20:22:03 Diastolic blood pressure 58.0 mm[Hg] 2024-05 20:22:03 Pulse Oximetry 95.0 % 2024-06-19 20:22 :03 Heart Rate 86.0 /min 2024-06-20 01:22 :03 Heart Rate 86.0 /min 2024-06-20 01:22 :03 Body height 65.0 [in_i] 2024-06-19 20:40 :08 Systolic blood pressure 127.0 mm[Hg] 14:16:00 Diastolic blood pressure 84.0 mm[Hg] 2024-05 14:16:00 Heart Rate 104.0 /min 2024-06-19 19:16 :00 Body weight 211.8 [lb_av] 2024-06-19 16:57 :46 Systolic blood pressure 130.0 mm[Hg] 08:29:25 Diastolic blood pressure 79.0 mm[Hg] 2024-05 08:29:25 Systolic blood pressure 130.0 mm[Hg] 08:29:25 Diastolic blood pressure 79.0 mm[Hg] 2024-05 08:29:25 Systolic blood pressure 130.0 mm[Hg] 08:29:25 Diastolic blood pressure 79.0 mm[Hg] 2024-05 08:29:25 Heart Rate 94.0 /min 2024-06-19 13:29 :25 Heart Rate 94.0 /min 2024-06-19 13:29 :25 Systolic blood pressure 130.0 mm[Hg] 07:29:50 Diastolic blood pressure 79.0 mm[Hg] 2024-05 07:29:50 Pulse Oximetry 91.0 % 2024-06-19 07:29 :50 Pulse Oximetry 91.0 % 2024-06-19 07:29 :50 Heart Rate 94.0 /min 2024-06-19 12:29 :50 Body temperature 97.9 [degF] 2024-06-19 12:2 9:50 Respiratory rate 20.0 /min 2024-06-19 12:2 9:50 Pulse Oximetry 96.0 % 2024-06-19 03:00 :09 Systolic blood pressure 127.0 mm[Hg] 23:46:34 Diastolic blood pressure 75.0 mm[Hg] 2024-05 23:46:34 Pulse Oximetry 98.0 % 2024-06-18 23:46 :34 Pulse Oximetry 98.0 % 2024-06-18 23:46 :34 Heart Rate 73.0 /min 2024-06-19 04:46 :34 Body temperature 98.0 [degF] 2024-06-19 04:4 6:34 Respiratory rate 20.0 /min 2024-06-19 04:4 6:34 Systolic blood pressure 127.0 mm[Hg] 21:07:32 Diastolic blood pressure 75.0 mm[Hg] 2024-05 21:07:32 Systolic blood pressure 127.0 mm[Hg] 21:07:32 Diastolic blood pressure 75.0 mm[Hg] 2024-05 21:07:32 Heart Rate 73.0 /min 2024-06-19 02:07 :32 Heart Rate 73.0 /min 2024-06-19 02:07 :32 Systolic blood pressure 109.0 mm[Hg] 14:42:35 Diastolic blood pressure 82.0 mm[Hg] 2024-05 14:42:35 Heart Rate 94.0 /min 2024-06-18 19:42 :35 Body weight 212.6 [lb_av] 2024-06-18 16:40 :31 Systolic blood pressure 117.0 mm[Hg] 09:26:48 Diastolic blood pressure 51.0 mm[Hg] 2024-05 09:26:48 Pulse Oximetry 92.0 % 2024-06-18 09:26 :48 Pulse Oximetry 92.0 % 2024-06-18 09:26 :48 Heart Rate 94.0 /min 2024-06-18 14:26 :48 Body temperature 97.9 [degF] 2024-06-18 14:2 6:48 Respiratory rate 20.0 /min 2024-06-18 14:2 6:48 Systolic blood pressure 117.0 mm[Hg] 08:47:03 Diastolic blood pressure 51.0 mm[Hg] 2024-05 08:47:03 Systolic blood pressure 117.0 mm[Hg] 08:47:03 Diastolic blood pressure 51.0 mm[Hg] 2024-05 08:47:03 Systolic blood pressure 117.0 mm[Hg] 08:47:03 Diastolic blood pressure 51.0 mm[Hg] 2024-05 08:47:03 Heart Rate 94.0 /min 2024-06-18 13:47 :03 Heart Rate 94.0 /min 2024-06-18 13:47 :03 Pulse Oximetry 100.0 % 2024-06-17 22:02 :24 Systolic blood pressure 135.0 mm[Hg] 21:17:36 Diastolic blood pressure 95.0 mm[Hg] 2024-05 21:17:36 Pulse Oximetry 100.0 % 2024-06-17 21:17 :36 Heart Rate 94.0 /min 2024-06-18 02:17 :36 Body temperature 98.2 [degF] 2024-06-18 02:1 7:36 Respiratory rate 19.0 /min 2024-06-18 02:1 7:36 Systolic blood pressure 135.0 mm[Hg] 19:56:20 Diastolic blood pressure 95.0 mm[Hg] 2024-05 19:56:20 Systolic blood pressure 135.0 mm[Hg] 19:56:20 Diastolic blood pressure 95.0 mm[Hg] 2024-05 19:56:20 Heart Rate 94.0 /min 2024-06-18 00:56 :20 Heart Rate 94.0 /min 2024-06-18 00:56 :20 Body weight 211.4 [lb_av] 2024-06-17 21:41 :43 Systolic blood pressure 137.0 mm[Hg] 14:55:21 Diastolic blood pressure 85.0 mm[Hg] 2024-05 14:55:21 Heart Rate 72.0 /min 2024-06-17 19:55 :21 Body height 64.0 [in_i] 2024-06-17 18:51 :18 Systolic blood pressure 91.0 mm[Hg] 12:47:06 Diastolic blood pressure 56.0 mm[Hg] 2024-05 12:47:06 Pulse Oximetry 99.0 % 2024-06-17 12:47 :06 Heart Rate 92.0 /min 2024-06-17 17:47 :06 Body temperature 98.3 [degF] 2024-06-17 17:4 7:06 Respiratory rate 18.0 /min 2024-06-17 17:4 7:06 Systolic blood pressure 91.0 mm[Hg] 09:21:07 Diastolic blood pressure 56.0 mm[Hg] 2024-05 09:21:07 Systolic blood pressure 91.0 mm[Hg] 09:21:07 Diastolic blood pressure 56.0 mm[Hg] 2024-05 09:21:07 Systolic blood pressure 91.0 mm[Hg] 09:21:07 Diastolic blood pressure 56.0 mm[Hg] 2024-05 09:21:07 Systolic blood pressure 127.0 mm[Hg] 22:31:08 Diastolic blood pressure 75.0 mm[Hg] 2024-05 22:31:08 Pulse Oximetry 95.0 % 2024-06-16 22:31 :08 Heart Rate 69.0 /min 2024-06-17 03:31 :08 Body temperature 98.5 [degF] 2024-06-17 03:3 1:08 Respiratory rate 18.0 /min 2024-06-17 03:3 1:08 Systolic blood pressure 127.0 mm[Hg] 20:50:09 Diastolic blood pressure 75.0 mm[Hg] 2024-05 20:50:09 Systolic blood pressure 106.0 mm[Hg] 16:19:13 Diastolic blood pressure 66.0 mm[Hg] 2024-05 16:19:13 Pulse Oximetry 97.0 % 2024-06-16 16:19 :13 Heart Rate 89.0 /min 2024-06-16 21:19 :13 Body weight 212.2 [lb_av] 2024-06-16 21:19 :13 Body temperature 97.1 [degF] 2024-06-16 21:1 9:13 Respiratory rate 20.0 /min 2024-06-16 21:1 9:13 Body weight 212.2 [lb_av] 2024-06-16 20:58 :00
--- OUTSIDE RECORDS SUMMARY | 2025-03-15 15:54 | XMS_ITS ---
Author Name Auto Generated, Auto Generated Organization [facility] ices Address [address] [place] [address] Care Team Providers Care Bus Driver Name Role Phone Meagan Garcia Primary Physician [phone] Emy Su Nurse Practitioner Camila Spence Drying Can Worker [phone] Allergies and Intolerances Name Onset Reaction Severity thiopental 2023-02-06 17:18:00 penicillin 2023-02-06 17:18:00 Care Team Name Role NPI Start Date Meagan Garcia Primary Physician [id number] 2024-05-24 5 00:00:00 Emy Su Nurse Practitioner [id number] 2024 00:00:00 Camila Spence Drying Can Worker [id number] 2024-06-16 00:0 0:00 Encounters Admissions Program Name Primary Diagnosis Admission Date Discharg e Date [facility] 2024-06-16 14:00:00 2024-07-07 13:45:00 [...] yarbrough. 2024-06-29 00:00:00 Assist family/friends with continuing [facility] caregiver role. 2024-06-29 00:00:00 Continue the relationship between Ping and support system. 2024-06-29 00:00:00 Ping will continue ordered therapy to attempt to return to prior level. 2024-06-29 00:00:00 Ping's mood will remain stable. 06-29 00:00:00 Ping will discharge back to home in [facility] community. 2024-06-29 00:00:00 Past Medical History Active [...] 00:00:00 Depression, unspecified Depression, unspecified 2023-02-06 00:00:00 correction (current) use of anticoagulants correction (current) use of anticoagulants 2023-02-06 00:00:00 Hypotension, [...] with radiculopathy, unspecified cervical region 2023-08-20 00:00:00 correction (current) use of opiate analgesic cigarette making machine catcher (current) use of opiate analgesic 2023-08-20 00:00:00 Alteration in nutrition/hydration R/T:CHF Exacerbation- BNP 496 2023-02-11 00:00:00 LSS_Social ServicesRoger Feng's wishes will be [...] 00:00:00 Depression, unspecified Depression, unspecified 2023-02-06 00:00:00 cigarette making machine catcher (current) use of anticoagulants cigarette making machine catcher (current) use of anticoagulants 2023-02-06 00:00:00 Hypotension, [...] with radiculopathy, unspecified cervical region 2023-08-20 00:00:00 cigarette making machine catcher (current) use of opiate analgesic correction (current) use of opiate analgesic 2023-08-20 00:00:00 [...] unspecified 2024-06-16 00:00:[address] 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 (12) 2024-06-25 00:00:00 [id number] Ping receives a therapeutic diet. (12) LSS_COPD [...]
--- OUTSIDE RECORDS SUMMARY | 2025-03-15 15:56 | XMS_ITS | Encounter Summary ---
Author Organization [employer] Address 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
--- OUTSIDE RECORDS SUMMARY | 2025-03-15 15:56 | XMS_ITS | Clinical Summary ---
Author Organization [facility] Address [address] [place] [address] Phone Care Team Providers Care Mold Design Engineer Name Role Phone Unavailable Primary Care Provider Unavailabl e Allergies Active Allergy Reactions Criticality Noted Date Comments Penicillins Unknown 03/03/2025 As a child Medications cyanocobalamin cr (VITAMIN B12) 1000 MCG Tablet Controlled Release Take by mouth daily. 025 Discontin ued(Patie nt Discharge ) pramipexole (MIRAPEX) 1 MG TabletIndication s:Restless Leg Syndrome Take 1 mg by mouth daily. Indications: Restless Leg Syndrome 025 Discontin ued(Patie nt Discharge ) folic acid (FOLVITE) 1 MG Tablet Take 1 mg by mouth daily. 025 Discontin ued(Patie nt Discharge ) metoprolol tartrate (LOPRESSOR) 25 MG Tablet Take 25 mg by mouth 2 times daily. 025 Discontin ued(Patie nt Discharge ) balsalazide (COLAZAL) 750 MG Capsule Take 1,500 mg by mouth 3 times daily. 025 Discontin ued(Patie nt Discharge ) bumetanide (BUMEX) 1 MG TabletIndication s:Heart Failure Take 2 mg by mouth daily. Indications: Heart Failure 025 Discontin ued(Patie nt Discharge ) dilTIAZem (CARDIZEM) 30 MG TabletIndication s:Atrial Fibrillation Take 30 mg by mouth 3 times daily. Indications: Atrial Fibrillation 025 Discontin ued(Patie nt Discharge ) metOLazone (ZAROXOLYN) 2.5 MG Tablet Take 2.5 mg by mouth daily. 025 Discontin ued(Patie nt Discharge ) potassium chloride (KLOR-CON) 20 MEQ Pack Take 20 mEq by mouth 3 times daily. Discontin ued(Patie nt Discharge ) gabapentin (NEURONTIN) 300 MG Capsule Take 300 mg by mouth 3 times daily. Discontin ued(Patie nt Discharge ) rOPINIRole (REQUIP) 0.5 MG TabletIndication s:Restless Leg Syndrome Take 0.5 mg by mouth 3 times daily. Indications: Restless Leg Syndrome Discontin ued(Patie nt Discharge ) rosuvastatin (CRESTOR) 20 MG Tablet Take 20 mg by mouth daily. Discontin ued(Patie nt Discharge ) sertraline (ZOLOFT) 100 MG Tablet Take 100 mg by mouth daily. Discontin ued(Patie nt Discharge ) Encounters Date Type Department Care Team Description 03/03/2025 Travel from Last 3 Months Family History Medical History Relation Name Comments Heart Disease Father No Known Problems Mother Cancer Sister Relation Name Status Comments Father Mother Sister Social History Tobacco Use Types Packs/Day Years Used Date Smoking Tobacco: Former Cigarettes Smokeless Tobacco: Never Tobacco Cessation:Counseling Given: Not Answered Alcohol Use Standard Drinks/Week Comments Not Currently 0 (1 standard drink = 0.6 oz pur e alcohol) Comments Unknown Sex and Gender Information Value Date Recorded Sex Assigned at Not on file Legal Sex Female 2:32 PM 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
--- OUTSIDE RECORDS SUMMARY | 2025-03-15 15:56 | XMS_ITS | Encounter Summary ---
Author Organization [facility] Address 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
--- OUTSIDE RECORDS SUMMARY | 2025-03-15 15:56 | XMS_ITS | Encounter Summary ---
Author Organization [employer] Address 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
--- OUTSIDE RECORDS SUMMARY | 2025-03-15 15:56 | XMS_ITS | Clinical Summary ---
Author Organization [facility] Address [address] [place] [id number] Care Team Providers Care Feather Trimmer Name Role Phone Meagan Yusuf MD Primary Care Provider + Annemarie Lea MD Unavailable [phone] Margy Walker MD PhD Unavailable [phone] Geraldine Barbosa NP Unavailable [phone] Allergies Active Allergy Reactions Criticality Noted Date Comments Penicillin G Rash Medium 09/26/2016 Thiopental Sodium Nausea And Vomiting Medium 7 Medications balsalazide (COLAZAL) 750 mg capsuleIndicati ons:Ulcerative Colitis Take 3 capsules by mouth 3 (three) times a day Active pramipexole (MIRAPEX) 1 mg tabletIndicatio ns:Restless Legs Syndrome Take 1 tablet by mouth nightly 1 Active rosuvastatin (CRESTOR) 20 mg tabletIndicatio ns:hyperlipidem ia Take 1 tablet by mouth daily Active sertraline (ZOLOFT) 100 mg tabletIndicatio ns:mood disorder Take 1 tablet by mouth daily 1 Active cholecalciferol (VITAMIN D-3) 25 mcg (1,000 unit) tabletIndicatio ns:Vitamin D Deficiency Take 2 tablets by mouth daily Active folic acid (FOLVITE) 1 mg tabletIndicatio ns:Folate Deficiency Take 1 tablet by mouth daily 3 Active rOPINIRole (REQUIP) 0.5 mg tabletIndicatio ns:Restless Legs Syndrome Take by mouth 3 (three) times a day 4 Active cyanocobalamin (Vitamin B-12) 1,000 mcg tabletIndicatio ns:Prevention of Vitamin B12 Deficiency Take 1 tablet by mouth every morning 4 Active potassium chloride ER 10 mEq CR tabletIndicatio ns:hypokalemia prevention Take 2 tablet/capsule by mouth 2 (two) times a day 4 Active metOLazone (ZAROXOLYN) 2.5 mg tabletIndicatio ns:hypertension Take 1 tablet (2.5 mg total) by mouth daily 30 tablet 11 5 07/23/19 26 Active fluticasone-ume clidin-vilanter (TRELEGY ELLIPTA) 200-62.5-25 mcg inhalerIndicati ons:Maintenance Therapy for Asthma Inhale 1 puff every day by inhalation route. 5 Active dilTIAZem (CARDIZEM) 30 mg tabletIndicatio ns:hypertension Take 1 tablet by mouth 3 (three) times a day Active acetaminophen 500 mg capsuleIndicati ons:Pain Take 2 capsules (1,000 mg total) by mouth every 6 (six) hours as needed for pain 30 capsule 5 Active cyclobenzaprine (FLEXERIL) 10 mg tabletIndicatio ns:Muscle Spasm Take 1 tablet (10 mg total) by mouth 3 (three) times a day as needed for muscle spasms 42 tablet 5 Active gabapentin (NEURONTIN) 100 mg capsuleIndicati ons:Restless Legs Syndrome Take 2 capsules (200 mg total) by mouth 3 (three) times a day 180 capsule 5 Active Additional Information Patient taking differently: 300 mgoral 3 times daily, Indications: Restless Legs Syndrome, Reported on 03/05/2025 bumetanide (BUMEX) 2 mg tabletIndicatio ns:hypertension Take 0.5 tablets (1 mg total) by mouth 2 (two) times a day 5 Active metoprolol tartrate (LOPRESSOR) 25 mg immediate release tabletIndicatio ns:hypertension Take 0.5 tablets (12.5 mg total) by mouth 2 (two) times a day 30 tablet 5 Active senna-docusate (PERICOLACE) 8.6-50 mgIndications:c onstipation Take 1 tablet by mouth 2 (two) times a day for 14 days 28 tablet 5 Active oxyCODONE (ROXICODONE) 5 mg immediate release tabletIndicatio ns:Pain Take 1 tablet (5 mg total) by mouth every 4 (four) hours as needed for pain 10 tablet 5 Active oxygenIndicatio ns:Dyspnea Inhale 4 L/min continuously. Indications: trouble breathing Active ipratropium-alb uteroL (DUO-NEB) 0.5-2.5 mg/3 mL nebulizer solution Inhale 3 mL every 6 hours by nebulization route as needed. Active semaglutide (OZEMPIC) 1 mg/dose (4 mg/3 mL) pen injector injection Inject 1 mg under the skin 4 Active bumetanide (BUMEX) 1 mg tablet 5 Active dilTIAZem (CARDIZEM) 60 mg tablet TAKE 1/2 TABLET BY MOUTH THREE TIMES DAILY 5 Active potassium chloride ER 20 mEq CR tablet Take 1 tablet (20 mEq total) by mouth 3 (three) times a day 5 Active gabapentin (NEURONTIN) 300 mg capsule 5 Active Active Problems Problem Noted Date Diagnosed Date Closed fracture of occipital condyle with routin e healing 02/06/2025 Elevated BUN 12/29/2024 Assessment & Plan (12/31/2024 10:16 AM CDT): 12/29 BUN 30s from 20s, Cr stable, LR bolus, daily labs 12/30 bun remains elevated, hgb stable and no e/o suspected gib, LR bolus iso mediocre po intake, UOP not well documented 12/31: Cr 0.75, BUN 20, normalized RESOLVED Thrombocytopenia 12/29/2024 Assessment & Plan (12/30/2024 11:12 AM CDT): Baseline 150-200 12/29 platelets remain >100, suspect consumption coagulopathy iso recent trauma, continue vte ppx, 4T score: 0 12/30 platelets stable, no e/o bleeding Encounter for medication review 12/28/2024 Assessment & Plan (12/28/2024 11:19 AM CDT): 12/28 epic dispense report reviewed and updated in ADMISSIONS tab Nausea 12/28/2024 Assessment & Plan (12/29/2024 8:42 AM CDT): 12/28 intermittent nausea, KUB reviewed, patient attributes to medication regimen, zofran prn 12/29 nausea resolved, DC zofran, dulcolax supp for moderate stool burden on kub RESOLVED Obesity 12/28/2024 Assessment & Plan (12/28/2024 11:33 AM CDT): Body mass index is 37.2 kg/m . Ulcerative colitis 12/28/2024 Assessment & Plan (12/28/2024 11:33 AM CDT): Home regimen: balsalazide (continued) Neuropathy 12/28/2024 Assessment & Plan (12/28/2024 11:47 AM CDT): Home regimen: gabapentin (continued) 12/28 dose reduced Hypertension 12/26/2024 Assessment & Plan (12/28/2024 11:27 AM CDT): See alternate parameter for management Closed nondisplaced fracture of first cervical vertebra, unspecified fracture morphology, initial encounter 12/25/2024 Assessment & Plan (12/31/2024 10:00 AM CDT): 12/25: Cervical collar on - NSGY will plan to task a [place] for her which she will need to wear at all times, CTA head and neck, MRI spine, [place] spine 12/26: Follow for NSGY recs, continue same care 12/27: MJ C collar in place, MRI still pending 12/28 MRI remains pending and precluding syncopal workup as well as discharge planning, RN to complete screening sheet, patient reports historical tolerance of MRI 12/29 MRI attempted yesterday and aborted for pain - provider not notified; reattempt today - additional analgesia provided, continue MJ and bedrest 12/30 non-op management in cervical collar, AAT/PT/OT, streamline re-engaged for patient c/o ill-fitting brace - F/U scheduled on 02/05 with NSGY Mixed type age-related cataract, both eyes 06/30 [...] 05/23/2024 Assessment & Plan (05/26/2024 9:50 AM LOG WASHER): #COPD #TRAVIS, chronic #Chronic hypoxic respiratory failure [...] Discharge planning issues 05/23/2024 Assessment & Plan (12/31/2024 10:02 AM CDT): 12/28 barrier to discharge: MRI cspine, PT/OT eval, syncopal workup; ADD end of week 12/29 barrier to discharge: cspine plan, PT/OT 12/30 barrier to discharge: echo, orthostatics, PT/OT, IPR referrals 12/31: Discharged home with PT/OT [X] treatment note done [X] tertiary done Assessment & Plan (05/27/2024 11:52 AM LOG WASHER): 05/23 tx out ICU, PT/OT - 33: awaiting repeat swallow evaluation, calorie counts - 34: Continue Tfs at nightly, Calorie counts. Wean O2 back to home 4L. Not medically ready for discharge. 05/27: Patient is medically stable for discharge, SW/CM updated. Discharge pending facility bed availability Treatment note 05/14 [x] Feeding difficulties 05/22/2024 Assessment & Plan (05/27/2024 11:55 AM LOG WASHER): SBFT placed by ENT 05/21 TFs commenced [...] NPO, resumed tube feeds, ordered for repeat INTERMEDIATE TEACHER evaluation. Recommend up in chair for all meals and 1:1 assistance during meals pending INTERMEDIATE TEACHER evaluation. Discussed with patient and nurse to inform provider of any change in clinical exam or vital signs. 05/25: repeat Swallow- regular diet, regular thin liquids assistance with meals, calorie counts ordered, cycle tube feeding over PM MBS (05/27): swallow mechanism is normal Respiratory distress 05/20/2024 Assessment & Plan (05/27/2024 11:55 AM LOG WASHER): Transferred to SICU 05/18 ON after respiratory [...] 05/14/2024 Assessment & Plan (05/15/2024 2:15 PM LOG WASHER): - Orthostatic vital signs (05/14): negative - [...] 05/14/2024 Assessment & Plan (05/14/2024 12:48 PM LOG WASHER): - Tylenol 1g q6h - Gabapentin 300mg TID - Robaxin 500mg TID PRN - Oxycodone 5mg q4h PRN Closed fracture of distal end of left radius Assessment & Plan (05/27/2024 11:55 AM LOG WASHER): - Plastics consult - L hand/wrist xr [...] 05/14/2024 Assessment & Plan (05/25/2024 11:39 AM LOG WASHER): - Magnesium (05/14): 1.9mg/dL - 05/14: replete Magnesium 2g IV - Magnesium (05/15): 2.0mg/dL - Magnesium (05/20): 2.2mg/dL - Magnesium (05/25): 2.0mg/dL - continue to trend Magnesium Orbital floor (blow-out) closed fracture 025 Overview [...] months Assessment & Plan (05/27/2024 11:52 AM LOG WASHER): Ophtho c/s ---HOB elevation, open-mouth sneezing, no [...] to be tasked with Dr Lea's team. [phone] Antibiotics Ancef 7day (complete) Intraparenchymal hematoma of brain due to trauma 05/13/2024 Assessment & Plan (05/23/2024 4:06 PM LOG WASHER): - Neurosurgery consult - Repeat head CT [...] 05/13/2024 Assessment & Plan (05/25/2024 11:36 AM LOG WASHER): - Hold Xarelto - home diltiazem 180 [...] 05/13/2024 Assessment & Plan (05/24/2024 3:43 PM LOG WASHER): Grade II diastolic dysfunction -EF 70%, moderate pulmonary hypertension (09/2021) 3/: resumed home diltiazem. CTM BP and resume home lasix when appropriate. Restless leg syndrome 05/13/2024 Assessment & Plan (12/28/2024 11:34 AM CDT): Home regimen: requip (continued) Assessment & Plan (05/13/2024 2:32 PM LOG WASHER): - Continue home ropinrole and pramipexole, gabapentin COPD (chronic obstructive pulmonary disease) Assessment & Plan (12/28/2024 11:31 AM CDT): Home regimen: 4L NC, trellegy PFTs: none on file Assessment & Plan (05/13/2024 2:35 PM LOG WASHER): - home meds: albuterol, ipratopium-albuterol Mood disorder 05/13/2024 Assessment & Plan (12/28/2024 11:27 AM CDT): Home regimen: sertraline (continued) Assessment & Plan (05/13/2024 2:37 PM LOG WASHER): Continue home zoloft Heart failure with mildly re duced ejection fraction (HFmrEF) 01/15/2024 Assessment & Plan (12/31/2024 10:01 AM CDT): 06/2024 echo: EF 52%, LVH, mild MR, mild TR, RVSP 50 Home regimen: diltiazem, metoprolol (iso afib), bumex, metolazone, Kcl 12/28 repeat echo ordered as part of syncopal workup, hold diuresis iso poor po intake 12/29-12/30 echo pending - discussed with CDL, continue to hold diuresis - Continue diuretics on discharge - Further management per PCP Assessment & Plan (05/27/2024 11:57 AM LOG WASHER): #HTN, chronic #HFrEF, chronic #Severe MR #Severe TI #Severe pulmonary hypertension - TTEs as above - Home O2 4L - Follows with [facility] Cardiology - Home Diltiazem, Entresto, Lasix (1/2 dose) and metoprolol continued Persistent atrial fibrillation 02/20/2022 Assessment & Plan (12/31/2024 10:01 AM CDT): Home rate control regimen: diltiazem, metoprolol (continued) Home anticoagulation regimen: none 06/2024 echo: EF 52%, LVH, mild MR, mild TR, RVSP 50 12/28 repeat echo ordered as part of syncopal workup 12/29 echo pending completion, decrease metoprolol dose for HR trends and hemodynamic stability otherwise as part of med reconciliation as it relates to frequent falls 12/30 echo pending completion - discussed with CDL, remains rate controlled - TTE completed 12/30 (see results under frequent falls) Noncompliance with medicatio n treatment due to intermittent use of medication 12/18/2021 Morbid (severe) obesity due to excess calories 0 07/05/2021 Labile hypertension 03/23/2021 Hypotension due to drugs 03/23/2021 Coronary artery disease invo lving [place] coronary artery of [place] heart without angina pectoris 02/10/2021 Mixed hyperlipidemia 02/10/2021 Assessment & Plan (12/28/2024 11:27 AM CDT): Home regimen: rosuvastatin (continued) Chronic obstructive pulmonary disease 02/10/2021 Chronic respiratory failure with hypoxia 021 TRAVIS on CPAP 02/10/2021 Assessment & Plan (12/30/2024 11:17 AM CDT): 12/28 continue NIPPV inpatient (declining) Frequent falls 02/10/2021 Assessment & Plan (12/31/2024 9:59 AM CDT): H/o frequent falls, hospitalized @ [facility] 05/2024 for injuries related to fall with intracranial injury Etiology: presumed syncopal 12/28 syncopal workup on hold - US dept unwilling to perform carotid exam with c-collar in place --> previous carotid US 04/2024 <50% stenosis bilaterally, orthostatics precluded by bedrest, echo ordered --- PCP office notified that potentially contributing home meds will be weaned as tolerated, planned for outpatient f/u 01/28 @ 10a - office will discuss with daughter re: timing 12/29 forgo carotid US given recent study, echo pending completion, orthostatics when able to mobilize, home [id number] meds titrated 12/30 orthostatics and echo pending completion - Orthostatic vital signs (12/30): negative - TTE (12/30): Mildly dilated left ventricle based on volume index. Concentric LV remodeling. Mildly depressed left ventricular systolic function. The Ejection Fraction is measured at 51 %. The Ejection Fraction is visually estimated to be 52-55 %. The average global longitudinal strain is abnormal. Right ventricular dilatation. Normal right ventricular systolic function. Severely dilated left atrium. Right atrial dilatation. - Continue home Bumex, metolazone, continue metoprolol with decreased dose - Further management per PCP Resolved Problems Problem Noted Date Diagnosed Date Resolved Date Discharge planning issues 05/13/2024 Assessment & Plan (05/18/2024 2:27 PM LOG WASHER): - 05/14: orthostatic vital signs pending, syncope [...] Encounters Date Type Department Care Team Description 03/05/2025 12:30 PM LOG WASHER Office Visit [facility] [address] [place] [address] Jarret Richardson MD Closed nondisplaced fracture of first cervical vertebra, unspecified fracture morphology, initial encounter (HCC) (Primary Dx); Closed fracture of left occipital condyle with routine healing, subsequent encounter 03/05/2025 12:00 PM LOG WASHER - 03/05/2025 11:59 PM LOG WASHER Hospital Encounter [facility] - Imaging [address] [place] [address] Closed nondisplaced fracture of first cervical vertebra, unspecified fracture morphology, initial encounter (HCC) Discharge Disposition: Discharge to home or self care 03/05/2025 Orders Only [facility] [address] [place] [address] Jarret Richardson MD Closed nondisplaced fracture of first cervical vertebra, unspecified fracture morphology, initial encounter (HCC) (Primary Dx) 03/01/2025 Orders Only [facility] [address] [place] [address] Jarret Richardson MD Closed nondisplaced fracture of first cervical vertebra, unspecified fracture morphology, initial encounter (HCC) (Primary Dx) 02/11/2025 1:00 PM LOG WASHER Home Care Visit [address] [place] [address] Deyanira Linda, PT PT OASIS DISCHARGE 02/05/2025 1:30 PM LOG WASHER Office Visit [facility] [address] [place] [address] Jarret Richardson MD Closed nondisplaced fracture of first cervical vertebra, unspecified fracture morphology, initial encounter (HCC) (Primary Dx); Closed fracture of left occipital condyle with routine healing, subsequent encounter 02/05/2025 12:08 PM LOG WASHER - 02/05/2025 11:59 PM LOG WASHER Hospital Encounter [facility] - Imaging [address] [place] [id number] Closed nondisplaced fracture of first cervical vertebra, unspecified fracture morphology, initial encounter (HCC) Discharge Disposition: Discharge to home or self care 02/02/2025 2:00 PM LOG WASHER Home Care Visit [address] [place] [address] Deyanira Linda, PT PT HOME VISIT 01/29/2025 2:00 PM LOG WASHER Home Care Visit [address] [place] [address] Edwige Sagastume, OT OT DISCIPLINE DISCHARGE 01/27/2025 3:30 PM LOG WASHER Home Care Visit [address] [place] [address] Deyanira Linda, PT PT REASSESSMENT 01/26/2025 Orders Only [facility] [address] [place] [address] Jarret Richardson MD Closed nondisplaced fracture of first cervical vertebra, unspecified fracture morphology, initial encounter ([facility]) (Primary Dx) 01/22/2025 2:30 PM CDT Home Care Visit [address] [place] [address] Ángel Kirkland, PT PT HOME VISIT 01/20/2025 12:30 PM CDT Home Care Visit [address] [place] [address] Edwige Sagastume, OT OT HOME VISIT 01/19/2025 2:30 PM CDT Home Care Visit [address] [place] [address] Deyanira Linda, PT PT HOME VISIT 01/18/2025 12:30 PM CDT Home Care Visit [address] [place] [address] Edwige Sagastume, OT OT HOME VISIT 01/15/2025 1:15 PM CDT Home Care Visit [address] [place] [address] Emy Eastman COTA OT HOME VISIT 01/13/2025 11:00 AM CDT Home Care Visit [address] [place] [address] Edwige Sagastume, OT OT HOME VISIT 01/12/2025 3:00 PM CDT Home Care Visit [address] [place] [address] Deyanira Linda, PT PT HOME VISIT 01/07/2025 1:00 PM CDT Home Care Visit [address] [place] [address] Deyanira Linda, PT PT HOME VISIT 01/07/2025 Home Care Visit [address] [place] [address] Edwige Sagastume OT TELEPHONE ENCOUNTER 01/06/2025 9:00 AM CDT Home Care Visit [address] [place] [address] Edwige Sagastume OT OT INITIAL EVALUATION 01/04/2025 Home Care Visit [address] [place] [address] Adelita Wharton, RENETTA NURSE MED RECON FOR THERAPY 01/03/2025 9:30 AM CDT Home Care Visit [address] [place] [address] Yamilet Sin, PT PT OASIS START OF CARE 01/03/2025 Plan of Care Documentation [address] [place] [address] 12/31/2024 Telephone [address] [address] [place] [address] Anabela Bonilla RN 12/30/2024 Telephone [facility] Medicine Neurosurgery [address] [facility] 6[address] [place] [address] [place] [address] Anderson London MD 12/25/2024 5:06 PM CDT - 12/31/2024 2:02 PM CDT Hospital Encounter [facility] [address] [place] [address] Doug Soto MD PhD [facility], Joseph Barraza MD PhD Closed nondisplaced fracture of first cervical vertebra, unspecified fracture morphology, initial encounter (HCC) (Primary Dx) Discharge Disposition: Discharge to home or self care 12/14/2024 Telephone [facility] Medicine Otolaryngology [address] [place] [address] Burgess, Sybil, [place] from Last 3 Months Immunizations Immunization Administration Dates Next Due Tdap 05/13/2024 Surgical History Surgery Date Site/Laterality Comments HYSTERECTOMY TOTAL SHOULDER REPLACEMENT Right HIP ARTHROPLASTY Medical History Medical History Date Comments IA, old CHF (congestive heart failure) (HCC) Alcohol [...] Tobacco: Never Tobacco Cessation:Counseling Given: Not Answered OASIS D0700: Social Isolation Answer Da te Recorded Frequency of experiencing loneliness or isolatio n Never 02/11/2025 OASIS A1250: Transportation Answer Date Recorded Lack of Transportation (Medical) No 02/11/2025 Lack of Transportation (Non-Medical) No 02/11/2025 Patient Unable or Declines to Respond No 02/11/2025 OASIS B1300: Health Literacy Answer Manpreet e Recorded Frequency of needing help to read materials from doctor or pharmacy Never 02/11/2025 Personal Safety Answer Date Recorded Have you ever been in or are you currently in a harmful physical or emotional relationship or is someone making you feel afraid or unsafe? Denies 12/26/2024 Comments No Sex and Gender Information Value Date Recorded Sex Assigned at Not on file Legal Sex Female 4:29 PM LOG WASHER Gender Identity Not on file Sexual Orientation Not on file Last Filed Vital Signs Vital Sign Reading Time Taken Comments Blood Pressure 104/52 03/05/2025 12:37 PM LOG WASHER Pulse 73 03/05/2025 12:37 PM LOG WASHER Temperature 36.6 C (97.8 F) 02/11/2025 1:11 PM LOG WASHER Respiratory Rate 18 02/11/2025 1:11 PM LOG WASHER Oxygen Saturation 99% 03/05/2025 12:37 PM LOG WASHER Inhaled Oxygen Concentration - - Weight 103.4 kg (228 lb) 03/05/2025 12:37 PM LOG WASHER Height 165.1 cm (5' 5) 03/05/2025 12:37 PM LOG WASHER Body Mass Index 37.94 03/05/2025 12:37 PM LOG WASHER Plan of Treatment Health Maintenance Due Date Last Done Comments Depression Screening 1945 Hepatitis C Screening 1945 Osteoporosis Screening-Bone Density Scan 1945 Hepatitis B Screening 12/21/1965 Well Visit 65+ 12/21/2012 Zoster Vaccine (3 of 3) 03/15/2022 01/18/2022, 02/07 Covid-19 Vaccine (4 - 2024-2 6 season) 2024 02/23/2021, 06/15/2020, 05/24/2020 Influenza Vaccine (#1) 2024 , 01/18/2022, 02/23/2021, Additional history exists Fall Risk Assessment 12/31/2025 12/31/2024 DTaP/Tdap/Td Vaccine (4 - Td or Tdap) 05/13/2034 05/13/2024, 08/10/2023, 12/15/2019 Pneumococcal vaccine 65+ Completed 019, 01/20/2016, 01/19/2016 Medical Devices Implanted Type Area Spanish Interpreter/Translator Device Identifier Shelf Expiration Date Model / Serial / Lot Implantech Sheeting Silastic Non Reinforced Alliedsil [id number] Silicone 23-700-40 - [id number] Implanted:Qty: 1 on 05/19/2024 by Annemarie Lea MD at [facility] Other - see comments Right: Face Implantech 07/03/2028 23-700- [id number] / / Luis Carlos Craniomaxillofacial Craniomaxillofacial Right 3d Large Implant Orbital Medpor Titan [id number] - [id number] Implanted:Qty: 1 on 05/19/2024 by Annemarie Lea MD at [facility] Other - see comments Right: Face Luis Carlos Craniomaxillofacial 08/19/2032 [id number] / / Luis Carlos Craniomaxillofacial 1.2mm 4mm Self Drill Axial Stability Lower Profile Screw Bone [id number] - [id number] Implanted:Qty: 1 on 05/19/2024 by Annemarie Lea MD at [facility] Other - see comments Right: Face [place] Craniomaxillofacial 56-1290 4 / / Medartis Inc Plt 2.5 Adaptive Ii Trilock Dist Rad Vol L 10h Narrow T2.0 A-4750.101 - [id number] Implanted:Qty: 1 on 05/18/2024 by Margy Walker MD PhD at [facility] Left: Wrist Medartis Inc A-4750. 101 / / [employer]art[employer] Inc 2.5mm 18mm Lock Cortical Screw Bone A-5750.18 - [id number] Implanted:Qty: 1 on 05/18/2024 by Margy Walker MD PhD at [facility] Left: Wrist [employer] A-5750. 18 / / [employer] 2.5mm 22mm Lock Cortical Screw Bone A-5750.22 - [id number] Implanted:Qty: 2 on 05/18/2024 by Margy Walker MD PhD at [facility] Left: Wrist [employer] A-5750. 22 / / [employer] 2.5mm 20mm Lock Cortical Screw Bone A-5750.20 - [id number] Implanted:Qty: 3 on 05/18/2024 by Margy Walker MD PhD at [facility] Left: Wrist [employer] A-5750. 20 / / [employer] Inc Aptus 2.5mm 14mm Lock Cortical Screw Bone A-5750.14 - [id number] Implanted:Qty: 2 on 05/18/2024 by Margy Walker MD PhD at [facility] Left: Wrist [employer] A-5750. 14 / / [employer] Aptus 2.5mm 14mm Cortical Screw Bone A-5700.14 - [id number] Implanted:Qty: 1 on 05/18/2024 by Margy Walker MD PhD at [facility] Left: Wrist [employer] A-5700. 14 / / [employer] 2.5mm 12mm Lock Cortical Screw Bone A-5750.12 - [id number] Implanted:Qty: 1 on 05/18/2024 by Margy Walker MD PhD at [facility] Left: Wrist [employer] A-5750. 12 / / Explanted Type Area Spanish Interpreter/Translator Device Identifier Shelf Expiration Date Model / Serial / Lot [employer]art[employer] Aptus 2.5mm 16mm Cortical Screw Bone A-5700.16 - [id number] Explanted:Qty: 1 on 05/18/2024 by Margy Walker MD PhD at [facility] Left: Wrist [employer] A-5700 .16 / / [employer] 2.5mm 18mm Lock Cortical Screw Bone A-5750.18 - [id number] Explanted:Qty: 1 on 05/18/2024 at [facility] Left: Wrist [employer] A-5750 .18 / / Procedures Procedure Name Priority Date/Time Associated Diagnosis Comments XR SPINE CERVICAL FLEXION AND EXTENSION 2 VIEWS Schedule Routine, Read Routine (OP Routine) 03/05/2025 12:13 PM LOG WASHER Closed nondisplaced fracture of first cervical vertebra, unspecified fracture morphology, initial encounter (HCC) XR SPINE CERVICAL 2 OR 3 VIEWS Schedule Routine, Read Routine (OP Routine) 02/05/2025 12:15 PM LOG WASHER Closed nondisplaced fracture of first cervical vertebra, unspecified fracture morphology, initial encounter (HCC) INFECTION PREVENTION WENDY AURIS PCR, SURVEILLANCE Routine 12/31/2024 1:09 PM CDT EGFR Routine 12/30/2024 9:29 PM CDT CBC WITHOUT DIFFERENTIAL Routine 12/30/2024 9:29 PM CDT BASIC METABOLIC PANEL Routine 12/30/2024 9:29 PM CDT TRANSTHORACIC ECHO (TTE) COMPLETE W DOPPLER/CF W CONTRAST STAT 12/30/2024 5:24 PM CDT EGFR Routine 12/29/2024 9:27 PM CDT CBC WITHOUT DIFFERENTIAL Routine 12/29/2024 9:27 PM CDT BASIC METABOLIC PANEL Routine 12/29/2024 9:27 PM CDT MRI CERVICAL SPINE WO CONTRAST ED Urgent/IP Urgent 12/29/2024 10:26 AM CDT EGFR Routine 12/29/2024 4:19 AM CDT CBC WITHOUT DIFFERENTIAL Routine 12/29/2024 4:19 AM CDT BASIC METABOLIC PANEL Routine 12/29/2024 4:19 AM CDT XR ABDOMEN AP 1 VIEW ED Urgent/IP Urgent 12/28/2024 7:03 AM CDT EGFR Routine 12/27/2024 8:39 PM CDT CBC WITHOUT DIFFERENTIAL Routine 12/27/2024 8:39 PM CDT BASIC METABOLIC PANEL Routine 12/27/2024 8:39 PM CDT EGFR Routine 12/27/2024 1:07 AM CDT CBC WITHOUT DIFFERENTIAL Routine 12/27/2024 1:07 AM CDT BASIC METABOLIC PANEL Routine 12/27/2024 1:07 AM CDT XR SPINE CERVICAL COMPLETE 4 OR 5 VW ED 12/25/2024 10:11 PM CDT XR PELVIS 1 OR 2 VIEWS ED 12/25/2024 10:10 PM CDT CTA HEAD NECK W WO CONTRAST ED 12/25/2024 9:41 PM CDT ED CRITICAL CARE Routine 12/25/2024 8:06 PM CDT EGFR STAT 12/25/2024 6:30 PM CDT DIFFERENTIAL AUTO STAT 12/25/2024 6:3 0 PM CDT TYPE AND SCREEN STAT 12/25/2024 6:30 PM CDT APTT STAT 12/25/2024 6:30 PM CDT PROTIME-INR STAT 12/25/2024 6:30 PM CDT COMPREHENSIVE METABOLIC PANEL STAT 12/25/2024 6:30 PM CDT CBC WITH AUTO DIFFERENTIAL STAT 12/25/2024 6:[address] OUTSIDE CONSULT ED 12/25/2024 5:[address] OUTSIDE CONSULT Routine 12/25/2024 5:44 PM CDT XR TRANSFER OF OUTSIDE FILMS Routine 12/25/2024 5:42 PM CDT from Last 3 Months Results * XR Spine Cervical Flexion and Extension 2 or 3 Views (03/05/2025 12:13 PM LOG WASHER) Anatomical Region Laterality Modality Spine N/A Digital Radiogra phy 03/05/2025 1:32 PM LOG WASHER Impressions 03/05/2025 1:32 PM LOG WASHER Cervical alignment is stable in the neutral position compared with prior radiographs dated 02/05/2025. A fracture along the C1 posterior arch is unchanged. There is mild anterolisthesis at C3-4 with flexion. There is loss of disc space height and endplate degenerative change at multiple levels. There is calcification along the neck that may represent carotid atherosclerosis. There is partial visualization of a shoulder arthroplasty. Electronically signed by: Jagjit Gomez M.D. Narrative 03/05/2025 1:32 PM LOG WASHER XR SPINE CERVICAL FLEXION AND EXTENSION 2 OR 3 VIEWS: 03/05/2025 1:00 PM CLINICAL INDICATION: Fracture, follow-up. COMPARISON: Radiographs of the cervical spine dated 02/05/2025. Procedure Note Jagjit Gomez MD - 12/12/2025 XR SPINE CERVICAL FLEXION AND EXTENSION 2 OR 3 VIEWS: 03/05/2025 1:00 PM CLINICAL INDICATION: Fracture, follow-up. COMPARISON: Radiographs of the cervical spine dated 02/05/2025. IMPRESSION: Cervical alignment is stable in the neutral position compared with prior radiographs dated 02/05/2025. A fracture along the C1 posterior arch is unchanged. There is mild anterolisthesis at C3-4 with flexion. There is loss of disc space height and endplate degenerative change at multiple levels. There is calcification along the neck that may represent carotid atherosclerosis. There is partial visualization of a shoulder arthroplasty. Electronically signed by: Jagjit Gomez M.D. Jarret Richardson MD IMG XR PROCEDURES Final Result * XR Spine Cervical 2 or 3 Views (02/05/2025 12:15 PM LOG WASHER) Anatomical Region Laterality Modality Spine N/A Digital Radiogra phy 02/05/2025 2:57 PM LOG WASHER Impressions 02/05/2025 2:57 PM LOG WASHER Evaluation of portions of the lower cervical and upper thoracic spine are limited on the lateral view due to overlying shoulders. There is reversal normal cervical lordosis and anterolisthesis at C2-3 and C3-4. Alignment is unchanged. There is a lucency through the C1 posterior arch that likely represents a fracture as seen on prior CTA of head and neck dated 12/25/2024. A fracture through the C1 left anterior arch is better delineated on prior CT. No compression deformity is identified along the course of the visualized spine. There is loss of disc space height at C4-5. There is facet and uncovertebral joint degenerative change at multiple levels. There is partial visualization of a shoulder arthroplasty. Electronically signed by: Jagjit Gomez M.D. Narrative 02/05/2025 2:57 PM LOG WASHER XR SPINE CERVICAL 2 OR 3 VIEWS: 02/05/2025 1:00 PM CLINICAL INDICATION: Closed nondisplaced fracture of first cervical vertebra. COMPARISON: CTA head and neck dated 12/26/2019. Procedure Note Jagjit Gomez MD - 02/05/2025 XR SPINE CERVICAL 2 OR 3 VIEWS: 02/05/2025 1:00 PM CLINICAL INDICATION: Closed nondisplaced fracture of first cervical vertebra. COMPARISON: CTA head and neck dated 12/26/2019. IMPRESSION: Evaluation of portions of the lower cervical and upper thoracic spine are limited on the lateral view due to overlying shoulders. There is reversal normal cervical lordosis and anterolisthesis at C2-3 and C3-4. Alignment is unchanged. There is a lucency through the C1 posterior arch that likely represents a fracture as seen on prior CTA of head and neck dated 12/25/2024. A fracture through the C1 left anterior arch is better delineated on prior CT. No compression deformity is identified along the course of the visualized spine. There is loss of disc space height at C4-5. There is facet and uncovertebral joint degenerative change at multiple levels. There is partial visualization of a shoulder arthroplasty. Electronically signed by: Jagjit Gomez M.D. Jarret Richardson MD IMG XR PROCEDURES Final Result * Infection Prevention Wendy auris PCR, surveillance Axilla/Groin (12/31/2024 1:09 PM CDT) Wendy auris DNA Not Detected Not Detected [facility] Comment: Interpretive Data Testing performed by [facility] Infectious Disease [facility] using the Toan rachel 6800 Wendy auris assay. This assay detects DNA from Wendy auris using Real-Time PCR. This assay is laboratory developed and is not cleared by the [place] Food and Drug Administration. The performance characteristics have been verified by the [facility] Infectious Disease [facility]. Axilla/Groin 12/31/2024 1:09 PM CDT 12/31/2024 2:40 PM CDT Narrative [place] [facility] - 01/01/2025 4:48 AM CDT Order placed by [facility] due to ring surveillance. us Instant Order Generic Provider LAB MICROBIOLOGY - GENERAL ORDERABLES Final Result [facility] [place] [address] [facility] * eGFR (12/30/2024 9:29 PM CDT) [facility] eGFR 82 >=60 mL/min/1. 73 m2 Comment: Interpretive Data [...] interpretive data was last reviewed 2021. Blood 12/30/2024 9:29 PM CDT 12/30/2024 11:37 PM CDT Joseph Lynch MD PhD LAB BLOOD ORDERAB LES Final Result [facility] [place] [address] * (ABNORMAL) CBC without differential (12/30/2024 9:29 PM CDT) [facility] WBC 6.17 3.80 - 9.90 K/cumm Hgb 10.7(L) 11.9 - 15.5 g/dL [facility] Hct 33.5(L) 35.6 - 45.5 % [facility] Plt 101(L) 150 - 400 K/cumm [facility] MPV 11.8 9.1 - 12.3 fL [facility] RBC 3.58(L) 3.90 - 5.20 M/cumm [facility] MCV 93.6 81.3 - 96.4 fL [facility] MCH 29.9 27.1 - 33.3 pg [facility] MCHC 31.9(L) 32.3 - 35.7 g/dL [facility] RDW CV 13.8 11.1 - 14.9 % [facility] RDW SD 47.2 35.7 - 48.1 fL [facility] NRBC abs 0.00 0.00 - 0.01 K/cumm [facility] Blood 12/30/2024 9:29 PM CDT 12/30/2024 11:37 PM CDT Joseph Lynch MD PhD LAB BLOOD ORDERAB LES Final Result [facility] [place] [address] * (ABNORMAL) Basic metabolic panel (12/30/2024 9:29 PM CDT) Sodium 142 135 - 145 mmol/L Potassium, pl 3.9 3.3 - 4.9 mmol/L [facility] Comment:Hemolyzed; Potassium value may be falsely elevated by as much as 0.3-0.5 mmol/L. Suggest redraw and reanalysis. Chloride 96(L) 97 - 110 mmol/L [facility] CO2 34(H) 22 - 32 mmol/L [facility] Anion gap 12 2 - 15 mmol/L [facility] BUN 20 6 - 25 mg/dL [facility] Creatinine 0.75 0.60 - 1.10 mg/dL [facility] Glucose 91 70 - 199 mg/dL [facility] Comment: Interpretive Data Fasting glucose >/= [...] Calcium 9.0 8.5 - 10.3 mg/dL [place] [facility] Blood 12/30/2024 9:29 PM CDT 12/30/2024 11:37 PM CDT us Joseph Lynch MD PhD LAB BLOOD ORDERAB LES Final Result [place] [facility] [place] [address] * TRANSTHORACIC ECHO (TTE) COMPLETE W DOPPLER/CF W CONTRAST (12/30/2024 5:24 PM CDT) Estimated EF 52-55 % CONS SCIMAGE EF Mod BP 51 % CONS SCIMAGE Anatomical Region Laterality Modality Ultrasound 12/30/2024 3:43 PM CDT Narrative 12/30/2024 5:53 PM CDT [facility] [place] [address] Transthoracic Echocardiographic Report Patient Name: LORRAINE WALLER J : 1945 (79y ) Sex: F Study Date: 12/30/2024 03:43:59 PM Ht(Inch): 65 Wt(Lb): 223.11 BSA: 2.07 Armature Connector: Radames Valle RDCS Location: [id number] Order Provider: NIECY STEVENSON Heart Rate: 168 BMI: 37.12 BP: 127 / 89 Ref Provider: NIECY STEVENSON PROCEDURES: Echocardiographic Report: Transthoracic complete echo with strain imaging and contrast, 2D, spectral and tissue Doppler, color flow Doppler, M-mode. Contrast: Contrast Enhancement was Employed: After initial imaging due to sub- optimal quality related to co-morbidity defined by patient's body habitus. 3.0 ml Optison Administered. Technically difficult study due to: Poor acoustic windows. INDICATIONS: Syncope. CONCLUSIONS: 1. Mildly dilated left ventricle based on volume index. Concentric LV remodeling. Mildly depressed left ventricular systolic function. The Ejection Fraction (Carmichael's) is measured at 51 %. The Ejection Fraction is visually estimated to be 52-55 %. The average global longitudinal strain is abnormal. 2. Right ventricular dilatation. Normal right ventricular systolic function. 3. Severely dilated left atrium. 4. Right atrial dilatation. 5. The IVC was >2.1 cm and collapsibility >50%. (est. RA pressure 6-10 mmHg). 6. The Estimated PASP is : 40 mmHg. 7. The rhythm during the study was atrial fibrillation. COMPARISONS: No change compared to prior study on: 08/06/24. ATTESTATION: I have personally reviewed and interpreted this study without fellow or resident. DISCLAIMER: The study images and the final report will be retained in the patient chart by the Echo Laboratory for the legally required time period. This chart constitutes the legal record of any testing performed. FINDINGS: Left Ventricle: Mildly dilated left ventricle based on volume index. Concentric LV remodeling. Mildly depressed left ventricular systolic function. The Ejection Fraction (Carmichael's) is measured at 51 %. The Ejection Fraction is visually estimated to be 52-55 %. The average global longitudinal strain is abnormal. The LV global strain is: -12.8 %. Right Ventricle: Right ventricular dilatation. Normal right ventricular systolic function. Left Atrium: Severely dilated left atrium. Right Atrium: Right atrial dilatation. Atrial Septum: Normal interatrial septum. Mitral Valve: Normal mitral valve structure. No mitral regurgitation. No stenosis present. Aortic Valve: Normal trileaflet aortic valve. No aortic regurgitation. No aortic valve stenosis. The mean transaortic gradient is 3 mmHg. The aortic valve area by the continuity equation (using VTI) is 2.06 cm2. Aortic valve dimensionless index is 0.72. Tricuspid Valve: Normal tricuspid valve structure. Mild tricuspid regurgitation. No tricuspid valve stenosis. Pulmonic Valve: Normal pulmonic valve structure. No pulmonic regurgitation. No pulmonic valve stenosis present. Pericardium: Normal pericardium without pericardial effusion. Aorta: Mild aortic root dilation at sinuses of Valsalva. Normal aortic root size when indexed. IVC: The IVC was >2.1 cm and collapsibility >50%. (est. RA pressure 6-10 mmHg). PASP: The Estimated PASP is : 40 mmHg. Rhythm: The rhythm during the study was atrial fibrillation. MEASUREMENTS: 2D/MM Value Range Doppler Value Range LVIDd 2D 4.62 cm [ 3.80 - 5.20 ] AV Peak Kenny 1.2 m/s [ 1.0 - 1.7 ] LVIDs 2D 3.26 cm [ 2.20 - 3.50 ] AV Peak PG 5.76 mmHg IVSd 2D 0.99 cm [ 0.60 - 0.90 ] AV Mean PG 3 mmHg LVPWd 2D 1.02 cm [ 0.60 - 0.90 ] AV VTI 22.2 cm LV Thickness Ratio 1.0 LVOT Peak Kenny 0.9 m/s [ 0.7 - 1.1 ] LV FS 2D 29.50 % [ 27.00 - 45.00 ] LVOT Peak PG 3.24 mmHg LV Mass 2D 164.18 g LVOT Mean PG 1 mmHg LV Mass Index 2D 79.23 g/m2 LVOT VTI 16.0 cm RWT 0.44 LVOT Diam 1.91 cm EDV Mod BP 141.02 ml [ 46.00 - 106.00 ] EZRA VTI 2.06 cm2 LV EDV Index 68.05 ml/m2 LVOT/AV VTI 0.72 - Dimensionless index (DVI) ESV Mod BP 69.63 ml [ 14.00 - 42.00 ] RV S` 12.12 cm/sec EF Mod BP 51 % [ 54 - 74 ] TR Peak Kenny 2.8 m/s [ 1.0 - 2.8 ] Visually Estimated EF 52-55 % TR Peak PG 31.4 mmHg LV GLS -12.8 % [ -25.0 - -18.0 ] PV Peak Kenny 0.8 m/s [ 0.4 - 0.8 ] LA Length 4C 5.98 cm PV Peak PG 2.56 mmHg LA Length 2C 7.02 cm LA Volume BP 120.01 ml LA Volume Index 57.91 ml/m2 [ 16.00 - 34.00 ] RV Base Dimen 2D 5.2 cm [ 2.5 - 4.2 ] TAPSE 1.88 cm [ 1.71 - 5.00 ] RA Volume 70.99 ml RA Volume Index 34.26 ml/m2 IVC Diam 2.88 cm IVC Collapse 52 % AoR Diam 2D 3.31 cm [ 2.70 - 3.70 ] Ao Root Index 1.60 cm/m2 [ 1.00 - 2.00 ] Electronically Signed By: Андрей Ta MD 12/30/2024 5:53:03 PM CDT Procedure Note Андрей Ferreira MD - 12/30/2024 [facility] [place] [address] Transthoracic Echocardiographic Report Patient Name: LORRAINE WALLER J : 1945 (79y ) Sex: F Study Date: 12/30/2024 03:43:59 PM Ht(Inch): 65 Wt(Lb): 223.11 BSA: 2.07 Armature Connector: Radames Valle RDCS Location: [id number] Order Provider:NIECY STEVENSON Heart Rate: 168 BMI: 37.12 BP: 127 / 89 Ref Provider: NIECY STEVENSON PROCEDURES: Echocardiographic Report: Transthoracic complete echo with strain imagingand contrast, 2D, spectral and tissue Doppler, color flow Doppler, M-mode. Contrast: Contrast Enhancement was Employed: After initial imaging due tosub- optimal quality related to co-morbidity defined by patient's body habitus. 3.0 mlOptison Administered. Technically difficult study due to: Poor acoustic windows. INDICATIONS: Syncope. CONCLUSIONS: 1. Mildly dilated left ventricle based on volume index. Concentric LVremodeling. Mildly depressed left ventricular systolic function. The Ejection Fraction(Carmichael's) is measured at 51 %. The Ejection Fraction is visually estimated to be 52-55%. The average global longitudinal strain is abnormal. 2. Right ventricular dilatation. Normal right ventricular systolicfunction. 3. Severely dilated left atrium. 4. Right atrial dilatation. 5. The IVC was >2.1 cm and collapsibility >50%. (est. RA pressure 6-10mmHg). 6. The Estimated PASP is : 40 mmHg. 7. The rhythm during the study was atrial fibrillation. COMPARISONS: No change compared to prior study on: 08/06/24. ATTESTATION: I have personally reviewed and interpreted this study without fellow orresident. DISCLAIMER: The study images and the final report will be retained in the patientchart by the Echo Laboratory for the legally required time period. This chart constitutesthe legal record of any testing performed. FINDINGS: Left Ventricle: Mildly dilated left ventricle based on volume index.Concentric LV remodeling. Mildly depressed left ventricular systolic function. TheEjection Fraction (Carmichael's) is measured at 51 %. The Ejection Fraction is visuallyestimated to be 52-55 %. The average global longitudinal strain is abnormal. The LV globalstrain is: - 12.8 %. Right Ventricle: Right ventricular dilatation. Normal right ventricularsystolic function. Left Atrium: Severely dilated left atrium. Right Atrium: Right atrial dilatation. Atrial Septum: Normal interatrial septum. Mitral Valve: Normal mitral valve structure. No mitral regurgitation. Nostenosis present. Aortic Valve: Normal trileaflet aortic valve. No aortic regurgitation. Noaortic valve stenosis. The mean transaortic gradient is 3 mmHg. The aortic valve areaby the continuity equation (using VTI) is 2.06 cm2. Aortic valve dimensionlessindex is 0.72. Tricuspid Valve: Normal tricuspid valve structure. Mild tricuspidregurgitation. No tricuspid valve stenosis. Pulmonic Valve: Normal pulmonic valve structure. No pulmonicregurgitation. No pulmonic valve stenosis present. Pericardium: Normal pericardium without pericardial effusion. Aorta: Mild aortic root dilation at sinuses of Valsalva. Normal aorticroot size when indexed. IVC: The IVC was >2.1 cm and collapsibility >50%. (est. RA pressure 6-10mmHg). PASP: The Estimated PASP is : 40 mmHg. Rhythm: The rhythm during the study was atrial fibrillation. MEASUREMENTS: 2D/MM Value Range DopplerValue Range LVIDd 2D 4.62 cm [ 3.80 - 5.20 ] AV Peak Vel1.2 m/s [ 1.0 - 1.7 ] LVIDs 2D 3.26 cm [ 2.20 - 3.50 ] AV Peak PG5.76 mmHg IVSd 2D 0.99 cm [ 0.60 - 0.90 ] AV Mean PG3 mmHg LVPWd 2D 1.02 cm [ 0.60 - 0.90 ] AV VTI22.2 cm LV Thickness Ratio 1.0 LVOT PeakVel 0.9 m/s [ 0.7 - 1.1 ] LV FS 2D 29.50 % [ 27.00 - 45.00 ] LVOT Peak PG3.24 mmHg LV Mass 2D 164.18 g LVOT Mean PG1 mmHg LV Mass Index 2D 79.23 g/m2 LVOT VTI16.0 cm RWT 0.44 LVOT Diam1.91 cm EDV Mod BP 141.02 ml [ 46.00 - 106.00 ] EZRA VTI2.06 cm2 LV EDV Index 68.05 ml/m2 LVOT/AV VTI0.72 - Dimensionless index (DVI) ESV Mod BP 69.63 ml [ 14.00 - 42.00 ] RV S`12.12 cm/sec EF Mod BP 51 % [ 54 - 74 ] TR Peak Vel2.8 m/s [ 1.0 - 2.8 ] Visually Estimated EF 52-55 % TR Peak PG31.4 mmHg LV GLS -12.8 % [ -25.0 - -18.0 ] PV Peak Vel0.8 m/s [ 0.4 - 0.8 ] LA Length 4C 5.98 cm PV Peak PG2.56 mmHg LA Length 2C7.02 cm LA Volume BP120.01 ml LA Volume Index 57.91 ml/m2 [ 16.00 - 34.00 ] RV Base Dimen 2D 5.2 cm [ 2.5 - 4.2 ] TAPSE 1.88 cm [ 1.71 - 5.00 ] RA Atogqc28.99 ml RA Volume Index34.26 ml/m2 IVC Diam2.88 cm IVC Collapse 52 % AoR Diam 2D 3.31 cm [ 2.70 - 3.70 ] Ao Root Index 1.60 cm/m2 [ 1.00 - 2.00 ] Electronically Signed By: Андрей Ta MD 12/30/2024 5:53:03 PM CDT Niecy Stevenson NP CV ECHO PROCEDURES Final R esult * (ABNORMAL) eGFR (12/29/2024 9:27 PM CDT) eGFR 51(L) >=60 mL/min/1. 73 m2 Comment: Interpretive Data [...] interpretive data was last reviewed 2021. Blood 12/29/2024 9:27 PM CDT 12/29/2024 9:47 PM CDT us Joseph Lynch MD PhD LAB BLOOD ORDERAB LES Final Result Performing Organization Address [facility] Co de Phone Number [facility] [place] [address] * (ABNORMAL) CBC without differential (12/29/2024 9:27 PM CDT) [facility] WBC 6.80 3.80 - 9.90 K/cumm Hgb 10.5(L) 11.9 - 15.5 g/dL [facility] Hct 32.6(L) 35.6 - 45.5 % [facility] Plt 126(L) 150 - 400 K/cumm [facility] MPV 11.1 9.1 - 12.3 fL [facility] RBC 3.50(L) 3.90 - 5.20 M/cumm [facility] MCV 93.1 81.3 - 96.4 fL [facility] MCH 30.0 27.1 - 33.3 pg [facility] MCHC 32.2(L) 32.3 - 35.7 g/dL [facility] RDW CV 13.9 11.1 - 14.9 % [facility] RDW SD 47.3 35.7 - 48.1 fL [facility] NRBC abs 0.00 0.00 - 0.01 K/cumm [facility] Blood 12/29/2024 9:27 PM CDT 12/29/2024 9:47 PM CDT us Joseph Lynch MD PhD LAB BLOOD ORDERAB LES Final Result [facility] [place] [address] * (ABNORMAL) Basic metabolic panel (12/29/2024 9:27 PM CDT) Sodium 141 135 - 145 mmol/L Potassium, pl 4.0 3.3 - 4.9 mmol/L [facility] Comment:Hemolyzed; Potassium value may be falsely elevated by as much as 0.3-0.5 mmol/L. Suggest redraw and reanalysis. Chloride 96(L) 97 - 110 mmol/L [facility] CO2 38(H) 22 - 32 mmol/L [facility] Anion gap 7 2 - 15 mmol/L [facility] BUN 30(H) 6 - 25 mg/dL [facility] Creatinine 1.11(H) 0.60 - 1.10 mg/dL [facility] Glucose 114 70 - 199 mg/dL [facility] Comment: Interpretive Data Fasting glucose >/= [...] 2022. Calcium 9.2 8.5 - 10.3 mg/dL [facility] Blood 12/29/2024 9:27 PM CDT 12/29/2024 9:47 PM CDT Joseph Lynch MD PhD LAB BLOOD ORDERAB LES Final Result [facility] [place] [address] * MRI Cervical Spine WO Contrast (12/29/2024 10:26 AM CDT) Anatomical Region Laterality Modality Spine N/A Magnetic Resonan ce 12/29/2024 11:0 8 AM CDT Addenda Addendum by Carolyne Jhaveri MD on 12/29/2024 11:15 AM CDT The Non Critical results were discussed with Niecy Stevenson TEAM LEADER/RESEARCH PSYCHOLOGIST by Margy Lynn, Supervisor [employer] Room on 12/29/2024 11:14 AM. Edited by: Margy Lynn Electronically signed by: Carolyne Mcclelland M.D. Impressions 12/29/2024 11:08 AM CDT FINDINGS AND IMPRESSION: Severely motion degraded nondiagnostic examination, recommend repeat when patient is able. Electronically signed by: Carolyne Mcclelland M.D. Narrative 12/29/2024 11:08 AM CDT EXAMINATION: Magnetic resonance imaging (MRI) of the cervical spine without contrast HISTORY: C1 fracture TECHNIQUE: Multiplanar multi-weighted MRI of the cervical spine was performed without intravenous contrast using the standard protocol. MR technologist notes: Fariha Barclay, RT on 12/29/2024 10:04 AM Best images possible. Patient does not follow commands and will not hold still for imaging. Patient in C-collar. Patient kept trying to move flex coil which had to be readjusted multiple times throughout the scan. Patient continuously reminded to hold still. TRA MEDIC repeated due to wrap from patient's shoulder. COMPARISON: CTA head and neck that includes the cervical spine dated 12/25/2024. Procedure Note Carolyne Jhaveri MD - 12/29/2024 EXAMINATION: Magnetic resonance imaging (MRI) of the cervical spine without contrast HISTORY: C1 fracture TECHNIQUE: Multiplanar multi-weighted MRI of the cervical spine was performed without intravenous contrast using the standard protocol. MR technologist notes: Fariha Barclay, RT on 12/29/2024 10:04 AM Best images possible. Patient does not follow commands and will not hold still for imaging. Patient in C-collar. Patient kept trying to move flex coil which had to be readjusted multiple times throughout the scan. Patient continuously reminded to hold still. TRA MEDIC repeated due to wrap from patient's shoulder. COMPARISON: CTA head and neck that includes the cervical spine dated 12/25/2024. IMPRESSION: FINDINGS AND IMPRESSION: Severely motion degraded nondiagnostic examination, recommend repeat when patient is able. Electronically signed by: Carolyne Mcclelland M.D. us Niecy Stevenson TEAM LEADER/RESEARCH PSYCHOLOGIST IMG MRI PROCEDURES Edited Result - Final * eGFR (12/29/2024 4:19 AM CDT) Pathologist [facility] eGFR 66 >=60 mL/min/1. 73 m2 Comment: Interpretive Data [...] interpretive data was last reviewed 2021. Blood 12/29/2024 4:19 AM CDT 12/29/2024 4:45 AM CDT us Joseph Lynch MD PhD LAB BLOOD ORDERAB LES Final Result [facility] [place] [address] * (ABNORMAL) CBC without differential (12/29/2024 4:19 AM CDT) Pathologist [facility] WBC 6.79 3.80 - 9.90 K/cumm Hgb 10.6(L) 11.9 - 15.5 g/dL [facility] Hct 33.3(L) 35.6 - 45.5 % [facility] Plt 126(L) 150 - 400 K/cumm [facility] MPV 11.0 9.1 - 12.3 fL [facility] RBC 3.53(L) 3.90 - 5.20 M/cumm [facility] MCV 94.3 81.3 - 96.4 fL [facility] MCH 30.0 27.1 - 33.3 pg [facility] MCHC 31.8(L) 32.3 - 35.7 g/dL [facility] RDW CV 13.8 11.1 - 14.9 % [facility] RDW SD 47.8 35.7 - 48.1 fL [facility] NRBC abs 0.00 0.00 - 0.01 K/cumm [facility] Blood 12/29/2024 4:19 AM CDT 12/29/2024 4:45 AM CDT us Joseph Lynch MD PhD LAB BLOOD ORDERAB LES Final Result [facility] [place] [address] * (ABNORMAL) Basic metabolic panel (12/29/2024 4:19 AM CDT) Sodium 142 135 - 145 mmol/L Potassium, pl 3.6 3.3 - 4.9 mmol/L [facility] Chloride 94(L) 97 - 110 mmol/L [facility] CO2 40(H) 22 - 32 mmol/L [facility] Anion gap 8 2 - 15 mmol/L [facility] BUN 32(H) 6 - 25 mg/dL [facility] Creatinine 0.90 0.60 - 1.10 mg/dL [facility] Glucose 90 70 - 199 mg/dL [facility] Comment: Interpretive Data Fasting glucose >/= [...] 2022. Calcium 9.2 8.5 - 10.3 mg/dL [facility] Blood 12/29/2024 4:19 AM CDT 12/29/2024 4:45 AM CDT Joseph Lynch MD PhD LAB BLOOD ORDERAB LES Final Result [facility] [place] [address] * XR Abdomen 1 View AP (12/28/2024 7:03 AM CDT) Anatomical Region Laterality Modality Body, Abdomen N/A Computed Radiogr aphy 12/28/2024 9:40 AM CDT Impressions 12/28/2024 3:48 PM CDT Partially imaged right hip replacement. Bowel gas pattern is normal with moderate colonic stool burden. Degenerative changes of the lumbosacral spine. Dictated by: Geoff Mercado M.D. The radiology attending physician has personally reviewed this study, and had reviewed and/or edited this written report and agrees with it. Electronically signed by: Xavi Rhodes M.D. Narrative 12/28/2024 3:48 PM CDT EXAMINATION: Abdomen, one view. HISTORY: Ileus COMPARISON: 05/20/2024 abdomen radiograph Procedure Note Xavi Rhodes MD - 12/28/2024 EXAMINATION: Abdomen, one view. HISTORY: Ileus COMPARISON: 05/20/2024 abdomen radiograph IMPRESSION: Partially imaged right hip replacement. Bowel gas pattern is normal with moderate colonic stool burden. Degenerative changes of the lumbosacral spine. Dictated by: Geoff Mercado M.D. The radiology attending physician has personally reviewed this study, and had reviewed and/or edited this written report and agrees with it. Electronically signed by: Xavi Rhodes M.D. us Niecy Stevenson TEAM LEADER/RESEARCH PSYCHOLOGIST IMG XR PROCEDURES Final Re sult * (ABNORMAL) eGFR (12/27/2024 8:39 PM CDT) [facility] eGFR 54(L) >=60 mL/min/1. 73 m2 Comment: Interpretive Data [...] interpretive data was last reviewed 2021. Blood 12/27/2024 8:39 PM CDT 12/27/2024 9:31 PM CDT us Joseph Lynch MD PhD LAB BLOOD ORDERAB LES Final Result [facility] Department of Laboratories [place], [place] [id number] * (ABNORMAL) CBC without differential (12/27/2024 8:39 PM CDT) [facility] WBC 7.01 3.80 - 9.90 K/cumm Hgb 11.4(L) 11.9 - 15.5 g/dL [facility] Hct 35.9 35.6 - 45.5 % [facility] Plt 146(L) 150 - 400 K/cumm [facility] MPV 10.7 9.1 - 12.3 fL [facility] RBC 3.76(L) 3.90 - 5.20 M/cumm [facility] MCV 95.5 81.3 - 96.4 fL [facility] MCH 30.3 27.1 - 33.3 pg [facility] MCHC 31.8(L) 32.3 - 35.7 g/dL [facility] RDW CV 14.0 11.1 - 14.9 % [facility] RDW SD 49.3(H) 35.7 - 48.1 fL [facility] NRBC abs 0.00 0.00 - 0.01 K/cumm [facility] Blood 12/27/2024 8:39 PM CDT 12/27/2024 9:29 PM CDT Joseph Lynch MD PhD LAB BLOOD ORDERAB LES Final Result [facility] [place] [address] * (ABNORMAL) Basic metabolic panel (12/27/2024 8:39 PM CDT) Sodium 143 135 - 145 mmol/L Potassium, pl 3.7 3.3 - 4.9 mmol/L [facility] Chloride 92(L) 97 - 110 mmol/L [facility] CO2 40(H) 22 - 32 mmol/L [facility] Anion gap 11 2 - 15 mmol/L [facility] BUN 29(H) 6 - 25 mg/dL [facility] Creatinine 1.06 0.60 - 1.10 mg/dL [facility] Glucose 108 70 - 199 mg/dL [facility] Comment: Interpretive Data Fasting glucose >/= [...] interpretive data was last revised 2022. Calcium 9.9 8.5 - 10.3 mg/dL [facility] Blood 12/27/2024 8:39 PM CDT 12/27/2024 9:31 PM CDT us Joseph Lynch MD PhD LAB BLOOD ORDERAB LES Final Result Performing Organization Address City/[facility]/ZIP Co de Phone Number [facility] [place] [address] * eGFR (12/27/2024 1:07 AM CDT) eGFR 61 >=60 mL/min/1. 73 m2 Comment: [...] interpretive data was last reviewed 2021. Blood 12/27/2024 1:07 AM CDT 12/27/2024 1:52 AM CDT us Joseph Lynch MD PhD LAB BLOOD ORDERAB LES Final Result Performing Organization Address City/[facility]/ZIP Co de Phone Number [facility] [place] [address] * (ABNORMAL) CBC without differential (12/27/2024 1:07 AM CDT) WBC 8.36 3.80 - 9.90 K/cumm Hgb 11.4(L) 11.9 - 15.5 g/dL [facility] Hct 36.1 35.6 - 45.5 % [facility] Plt 146(L) 150 - 400 K/cumm [facility] MPV 10.4 9.1 - 12.3 fL [facility] RBC 3.82(L) 3.90 - 5.20 M/cumm [facility] MCV 94.5 81.3 - 96.4 fL [facility] MCH 29.8 27.1 - 33.3 pg [facility] MCHC 31.6(L) 32.3 - 35.7 g/dL [facility] RDW CV 13.8 11.1 - 14.9 % [facility] RDW SD 48.3(H) 35.7 - 48.1 fL [facility] NRBC abs 0.00 0.00 - 0.01 K/cumm [facility] Blood 12/27/2024 1:07 AM CDT 12/27/2024 1:52 AM CDT Joseph Lynch MD PhD LAB BLOOD ORDERAB LES Final Result [facility] [place] [address] * (ABNORMAL) Basic metabolic panel (12/27/2024 1:07 AM CDT) [facility] Sodium 143 135 - 145 mmol/L Potassium, pl 3.6 3.3 - 4.9 mmol/L [facility] Chloride 95(L) 97 - 110 mmol/L [facility] CO2 43(H) 22 - 32 mmol/L [facility] Anion gap 5 2 - 15 mmol/L [facility] BUN 29(H) 6 - 25 mg/dL [facility] Creatinine 0.96 0.60 - 1.10 mg/dL [facility] Glucose 130 70 - 199 mg/dL [facility] Comment: Interpretive Data Fasting glucose >/= [...] interpretive data was last revised 2022. Calcium 9.6 8.5 - 10.3 mg/dL [facility] Blood 12/27/2024 1:07 AM CDT 12/27/2024 1:52 AM CDT us Joseph Lynch MD PhD LAB BLOOD ORDERAB LES Final Result [facility] [place] [address] * XR Spine Cervical Complete 4 or 5 Views (12/25/2024 10:11 PM CDT) Anatomical Region Laterality Modality Spine N/A Computed Radiogr aphy 12/25/2024 11:2 9 PM CDT Impressions 12/26/2024 11:20 AM CDT Pelvis: Right hip arthroplasty in place in expected anatomic alignment and without evidence of hardware failure. No acute fracture or dislocation on this single view pelvic radiograph. Excreted contrast is noted in the urinary bladder which appears to have multiple diverticula. Cervical spine: There is loss of normal cervical lordosis with multilevel spondylosis of the cervical spine. Imaged lung apices are unremarkable. C1 arch fracture is better characterized on recent CT spine. Dictated by: Raman Ngo MD The radiology attending physician has personally reviewed this study, and had reviewed and/or edited this written report and agrees with it. Electronically signed by: Zander Mccartney MD Narrative 12/26/2024 11:20 AM CDT EXAMINATION: XR PELVIS 1 OR 2 VIEWS, XR SPINE CERVICAL COMPLETE 4 OR 5 VW HISTORY: Trauma. Procedure Note Zander Mccartney MD - 12/26/2024 EXAMINATION: XR PELVIS 1 OR 2 VIEWS, XR SPINE CERVICAL COMPLETE 4 OR 5 VW HISTORY: Trauma. IMPRESSION: Pelvis: Right hip arthroplasty in place in expected anatomic alignment and without evidence of hardware failure. No acute fracture or dislocation on this single view pelvic radiograph. Excreted contrast is noted in the urinary bladder which appears to have multiple diverticula. Cervical spine: There is loss of normal cervical lordosis with multilevel spondylosis of the cervical spine. Imaged lung apices are unremarkable. C1 arch fracture is better characterized on recent CT spine. Dictated by: Raman Ngo MD The radiology attending physician has personally reviewed this study, and had reviewed and/or edited this written report and agrees with it. Electronically signed by: Zander Mccartney MD Gino Higginbotham MD IMG XR PROCEDURES Fin al Result * XR Pelvis 1 or 2 Views (12/25/2024 10:10 PM CDT) Anatomical Region Laterality Modality Body, Pelvis N/A Computed Radiogr aphy 12/25/2024 11:2 9 PM CDT Impressions 12/26/2024 11:20 AM CDT Pelvis: Right hip arthroplasty in place in expected anatomic alignment and without evidence of hardware failure. No acute fracture or dislocation on this single view pelvic radiograph. Excreted contrast is noted in the urinary bladder which appears to have multiple diverticula. Cervical spine: There is loss of normal cervical lordosis with multilevel spondylosis of the cervical spine. Imaged lung apices are unremarkable. C1 arch fracture is better characterized on recent CT spine. Dictated by: Raman Ngo MD The radiology attending physician has personally reviewed this study, and had reviewed and/or edited this written report and agrees with it. Electronically signed by: Zander Mccartney MD Narrative 12/26/2024 11:20 AM CDT EXAMINATION: XR PELVIS 1 OR 2 VIEWS, XR SPINE CERVICAL COMPLETE 4 OR 5 VW HISTORY: Trauma. Procedure Note Zander Mccartney MD - 12/26/2024 EXAMINATION: XR PELVIS 1 OR 2 VIEWS, XR SPINE CERVICAL COMPLETE 4 OR 5 VW HISTORY: Trauma. IMPRESSION: Pelvis: Right hip arthroplasty in place in expected anatomic alignment and without evidence of hardware failure. No acute fracture or dislocation on this single view pelvic radiograph. Excreted contrast is noted in the urinary bladder which appears to have multiple diverticula. Cervical spine: There is loss of normal cervical lordosis with multilevel spondylosis of the cervical spine. Imaged lung apices are unremarkable. C1 arch fracture is better characterized on recent CT spine. Dictated by: Raman Ngo MD The radiology attending physician has personally reviewed this study, and had reviewed and/or edited this written report and agrees with it. Electronically signed by: Zander Mccartney MD us Gino Higginbotham MD IMG XR PROCEDURES Fin al Result * CTA Head Neck W WO Contrast (12/25/2024 9:41 PM CDT) Anatomical Region Laterality Modality Head and Neck N/A Computed Tomogra phy 12/25/2024 11:1 5 PM CDT Impressions 12/26/2024 10:48 AM CDT 1. Nondisplaced comminuted fractures of the left anterior and posterior C1 arch that extend into the lateral mass of C1 and left occipital condylar fracture are better evaluated on prior CT of the cervical spine. 2. No evidence of vascular injury. 3. Subcutaneous hematoma overlying the left frontal scalp and small left preseptal hematoma are unchanged. 4. Degenerative findings was in the cervical spine are better evaluated on dedicated CT spine 12/25/2024. Dictated by: Lonny Boyer MD The radiology attending physician has personally reviewed this study, and had reviewed and/or edited this written report and agrees with it. Electronically signed by: Chay Chávez M.D. Narrative 12/26/2024 10:48 AM CDT EXAMINATION: 1. Computed tomography angiography (CTA) of the head without and with contrast 2. Computed tomography angiography (CTA) of the neck with contrast HISTORY: Fall with known C1 fracture undergoing evaluation for vascular injury. TECHNIQUE: CT of the head was performed with images acquired from skull base to vertex without intravenous contrast. Computed tomographic angiography was obtained from the aortic arch to the vertex following the uneventful administration of intravenous contrast. 3D images of the CTA were generated on a dedicated workstation/sql server developer. Contrast information: 69 mL Optiray-350 IV COMPARISON: CT 12/25/2024 at 2:05 PM. FINDINGS: HEAD: Subcutaneous hematoma overlying the right frontal scalp is unchanged. Small right preseptal hematoma is also unchanged. No post septal or retrobulbar hematoma. No underlying fracture. No acute intracranial hemorrhage. No mass effect or midline shift. 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 There is mild diffuse parenchymal atrophy with associated ex vacuo dilation of the ventricles. The neely-white matter differentiation is normal. Again noted are postsurgical changes of right orbital floor fracture fixation. Mucosal thickening of the left maxillary sinus is unchanged. The visualized portions of the mastoids are normal. No fractures are identified. Intracranial atherosclerotic calcifications are present. NECK: Scattered subcentimeter lymph nodes are seen in the neck. None are pathologically enlarged. The muscles of the neck are normal. Fascial planes are preserved and the deep spaces of the neck are normal. The visualized airway is widely patent. Again noted are nondisplaced comminuted fractures of the left anterior posterior C1 arch, which extend of the lateral mass of C1. Additional findings in the cervical spine are better evaluated on same-day dedicated CT cervical spine. Mild dependent atelectasis in the lower lobes. CTA: The visualized aortic arch appears normal with normal configuration of the great vessels. The innominate artery and both subclavian arteries are normal in course and caliber. There is a retropharyngeal course of the bilateral common carotid arteries, which are normal in caliber. Mild atherosclerotic stenosis at the carotid bifurcations bilaterally. The internal carotid arteries are normal in course and caliber. Mild atherosclerotic stenoses are noted in the intracranial internal carotid arteries. No areas of atherosclerotic narrowing or filling defects are identified. The [id number] is complete. The anterior and middle cerebral arteries are normal. Right vertebral artery is dominant. The basilar artery is normal. The posterior cerebral arteries are normal. There is no aneurysm or vascular malformation identified. No evidence of vascular injury in the region of the C1 fracture. Procedure Note Chay Chávez MD - 12/26/2024 EXAMINATION: 1. Computed tomography angiography (CTA) of the head without and with contrast 2. Computed tomography angiography (CTA) of the neck with contrast HISTORY: Fall with known C1 fracture undergoing evaluation for vascular injury. TECHNIQUE: CT of the head was performed with images acquired from skull base to vertex without intravenous contrast. Computed tomographic angiography was obtained from the aortic arch to the vertex following the uneventful administration of intravenous contrast. 3D images of the CTA were generated on a dedicated workstation/sql server developer. Contrast information: 69 mL Optiray-350 IV COMPARISON: CT 12/25/2024 at 2:05 PM. FINDINGS: HEAD: Subcutaneous hematoma overlying the right frontal scalp is unchanged. Small right preseptal hematoma is also unchanged. No post septal or retrobulbar hematoma. No underlying fracture. No acute intracranial hemorrhage. No mass effect or midline shift. 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 There is mild diffuse parenchymal atrophy with associated ex vacuo dilation of the ventricles. The neley-white matter differentiation is normal. Again noted are postsurgical changes of right orbital floor fracture fixation. Mucosal thickening of the left maxillary sinus is unchanged. The visualized portions of the mastoids are normal. No fractures are identified. Intracranial atherosclerotic calcifications are present. NECK: Scattered subcentimeter lymph nodes are seen in the neck. None are pathologically enlarged. The muscles of the neck are normal. Fascial planes are preserved and the deep spaces of the neck are normal. The visualized airway is widely patent. Again noted are nondisplaced comminuted fractures of the left anterior posterior C1 arch, which extend of the lateral mass of C1. Additional findings in the cervical spine are better evaluated on same-day dedicated CT cervical spine. Mild dependent atelectasis in the lower lobes. CTA: The visualized aortic arch appears normal with normal configuration of the great vessels. The innominate artery and both subclavian arteries are normal in course and caliber. There is a retropharyngeal course of the bilateral common carotid arteries, which are normal in caliber. Mild atherosclerotic stenosis at the carotid bifurcations bilaterally. The internal carotid arteries are normal in course and caliber. Mild atherosclerotic stenoses are noted in the intracranial internal carotid arteries. No areas of atherosclerotic narrowing or filling defects are identified. The [id number] is complete. The anterior and middle cerebral arteries are normal. Right vertebral artery is dominant. The basilar artery is normal. The posterior cerebral arteries are normal. There is no aneurysm or vascular malformation identified. No evidence of vascular injury in the region of the C1 fracture. IMPRESSION: 1. Nondisplaced comminuted fractures of the left anterior and posterior C1 arch that extend into the lateral mass of C1 and left occipital condylar fracture are better evaluated on prior CT of the cervical spine. 2. No evidence of vascular injury. 3. Subcutaneous hematoma overlying the left frontal scalp and small left preseptal hematoma are unchanged. 4. Degenerative findings was in the cervical spine are better evaluated on dedicated CT spine 12/25/2024. Dictated by: Lonny Boyer MD The radiology attending physician has personally reviewed this study, and had reviewed and/or edited this written report and agrees with it. Electronically signed by: Chay Chávez M.D. us Gino Higginbotham MD IMG CT PROCEDURES Fin al Result * Critical Care (12/25/2024 8:06 PM CDT) Narrative Doug Soto MD PhD - 12/25/2024 8:06 PM CDT Doug Soto MD PhD 12/29/2024 4:03 AM Critical Care Performed by: Doug Soto MD PhD Authorized by: Doug Soto MD PhD Critical care provider statement: As reflected in the history, physical exam, orders, notes, and/or MDM, I was personally present while the patient was critically ill and provided critical care services for 20 minutes, excluding time involved in separately billable procedures. Critical care was necessary to treat or prevent imminent or life-threatening deterioration of the following condition(s): spinal cord injury/spine fracture Critical care was time spent by me providing the following: continuous telemetry, continuous pulse oximetry, interpretation of bedside monitors, imaging, and arterial/venous lab draws and serial bedside patient exams spinal immobilization acute pain control I provided emergent necessary [...] spent time documenting in the medical record. us Doug Soto MD PhD IN CLINIC/BEDSIDE ORDERABLES Final Result * (ABNORMAL) eGFR (12/25/2024 6:30 PM CDT) [facility] eGFR 59(L) >=60 mL/min/1. 73 m2 Comment: Interpretive Data [...] interpretive data was last reviewed 2021. Blood 12/25/2024 6:30 PM CDT 12/25/2024 6:51 PM CDT us Gino Higginbotham MD LAB BLOOD ORDERABLES Final Result [facility] [place] [address] * Differential, auto (12/25/2024 6:30 PM CDT) [facility] Neutrophil abs 5.98 1.50 - 6.50 K/cumm Imm gran abs 0.02 0.00 - 0.10 K/cumm [facility] Lymphocyte abs 1.03 0.80 - 3.30 K/cumm [facility] Monocyte abs 0.41 0.20 - 0.80 K/cumm [facility] Eosinophil abs 0.12 0.00 - 0.50 K/cumm [facility] Basophil abs 0.03 0.00 - 0.10 K/cumm [facility] Neutrophil pct 78.7 % [facility] Comment: Interpretive Data Percent cell count reference ranges are not reported, since discordance with absolute values may lead to misinterpretation of CBC data. Current Interpretive Data was last revised on 2017. Imm gran pct 0.3 % [facility] Comment: Interpretive Data Percent cell count reference ranges are not reported, since discordance with absolute values may lead to misinterpretation of CBC data. Current Interpretive Data was last revised on 2017. Lymphocyte pct 13.6 % [facility] Comment: Interpretive Data Percent cell count reference ranges are not reported, since discordance with absolute values may lead to misinterpretation of CBC data. Current Interpretive Data was last revised on 2017. Monocyte pct 5.4 % [facility] Comment: Interpretive Data Percent cell count reference ranges are not reported, since discordance with absolute values may lead to misinterpretation of CBC data. Current Interpretive Data was last revised on 2017. Eosinophil pct 1.6 % [facility] Comment: Interpretive Data Percent cell count reference ranges are not reported, since discordance with absolute values may lead to misinterpretation of CBC data. Current Interpretive Data was last revised on 2017. Basophil pct 0.4 % [facility] Comment: Interpretive Data Percent cell count reference ranges are not reported, since discordance with absolute values may lead to misinterpretation of CBC data. Current Interpretive Data was last revised on 2017. Blood 12/25/2024 6:30 PM CDT 12/25/2024 6:51 PM CDT Gino Higginbotham MD LAB BLOOD ORDERABLES Final Result [facility] Department of Laboratories [place], [place] [id number] * CBC with auto differential (12/25/2024 6:30 PM CDT) WBC 7.59 3.80 - 9.90 K/cumm Hgb 12.5 11.9 - 15.5 g/dL [facility] Hct 37.5 35.6 - 45.5 % [facility] Plt 157 150 - 400 K/cumm [facility] MPV 10.5 9.1 - 12.3 fL [facility] RBC 4.09 3.90 - 5.20 M/cumm [facility] MCV 91.7 81.3 - 96.4 fL [facility] MCH 30.6 27.1 - 33.3 pg [facility] MCHC 33.3 32.3 - 35.7 g/dL [facility] RDW CV 14.0 11.1 - 14.9 % [facility] RDW SD 47.1 35.7 - 48.1 fL [facility] NRBC abs 0.00 0.00 - 0.01 K/cumm [facility] Blood 12/25/2024 6:30 PM CDT 12/25/2024 6:51 PM CDT Gino Higginbotham MD LAB BLOOD ORDERABLES Final Result Performing Organization Address City/[facility] Co de Phone Number [facility] [place] [address] * aPTT (12/25/2024 6:30 PM CDT) aPTT 28 26 - 38 sec Comment: Interpretive Data Heparin therapeutic range: 66.0 - 100.0 seconds. Range based on correlation with therapeutic heparin activity range of 0.3 - 0.7 Units/mL. Current interpretive data was last revised on 2022. Blood 12/25/2024 6:30 PM CDT 12/25/2024 6:37 PM CDT Gino Higginbotham MD LAB BLOOD ORDERABLES Final Result Performing Organization Address City/[facility] Co de Phone Number [facility] [place] [address] * Protime-INR (12/25/2024 6:30 PM CDT) PT 11.3 10.2 - 13.5 sec INR 1.00 0.90 - 1.20 [facility] Comment: Interpretive data Oral anticoagulant therapeutic ranges: Venous thromboembolism prophylaxis or treatment: 2.0-3.0 CARDIOLOGY Standard range: 2.0-3.0 High-intensity range: 2.5-3.5 Refer to indication-specific guidelines for appropriate target ranges for prosthetic heart valve replacement. Current interpretive data was last revised on 2019. Blood 12/25/2024 6:3 0 PM CDT 12/25/2024 6:37 PM CDT Gino Higginbotham MD LAB BLOOD ORDERABLES Final Result Performing Organization Address [facility] Co de Phone Number [facility] [place] [address] * Type and screen (12/25/2024 6:30 PM CDT) Pathologist [facility] [place], indirect Negative ABO Rh A Positive [facility] Blood 12/25/2024 6:30 PM CDT 12/25/2024 6:43 PM CDT Narrative [facility] - 12/25/2024 7:39 PM CDT Has the patient had Daratumumab or Isatuximab in the past 6 months?->Unknown us Gino Higginbotham MD LAB BLOOD BANK TEST O RDERABLES Final Result Performing Organization Address [facility] Co de Phone Number [facility] [place] [address] * (ABNORMAL) Comprehensive metabolic panel (12/25/2024 6:30 PM CDT) Pathologist [facility] Sodium 143 135 - 145 mmol/L Potassium, pl 3.4 3.3 - 4.9 mmol/L [facility] Chloride 92(L) 97 - 110 mmol/L [facility] CO2 38(H) 22 - 32 mmol/L [facility] Anion gap 13 2 - 15 mmol/L [facility] BUN 31(H) 6 - 25 mg/dL [facility] Creatinine 0.98 0.60 - 1.10 mg/dL [facility] Glucose 103 70 - 199 mg/dL [facility] Comment: Interpretive Data Fasting glucose >/= [...] interpretive data was last revised 2022. Calcium 9.7 8.5 - 10.3 mg/dL [facility] Bilirubin, total 1.6(H) 0.1 - 1.2 mg/dL [facility] Protein, pl 7.5 6.5 - 8.5 g/dL [facility] Albumin 4.2 3.5 - 5.0 g/dL [facility] Alk phos 59 40 - 130 Units/L [facility] ALT 19 7 - 45 Units/L [facility] AST 39 10 - 45 Units/L [facility] Blood 12/25/2024 6:30 PM CDT 12/25/2024 6:51 PM CDT us Gino Higginbotham MD LAB BLOOD ORDERABLES Final Result [facility] [place] [address] * Neuro CT Outside Consult (12/25/2024 5:45 PM CDT) Anatomical Region Laterality Modality N/A Computed Tomogra phy 12/25/2024 6:09 PM CDT Impressions 12/25/2024 6:49 PM CDT 1. Nondisplaced comminuted fractures of the left anterior and posterior C1 arch, which extend into the lateral mass of C1. 2. Nondisplaced fracture through the left occipital condyle. 3. No evidence of acute fracture in the maxillofacial bones, orbits, or paranasal sinuses. 4. No acute intracranial abnormality. 5. Subcutaneous hematoma overlying the left frontal scalp with small preseptal component. No post septal or retrobulbar hematoma. No underlying fracture. 6. Severe degenerative disc disease resulting in up to severe neuroforaminal stenosis on the left at C4-C5, C5-C6, and C6-C7. The findings, conclusions and recommendations within this report do not replace the initial findings, conclusions and recommendations made at the facility where the study was performed based upon the imaging and clinical condition at that time. Comparison with the prior report and clinical history is necessary. The provided images may or may not represent the [place] source data set and thus may contain changes that may lower the accuracy of this second-opinion interpretation. Dictated by: Lonny Boyer MD The radiology attending physician has personally reviewed this study, and had reviewed and/or edited this written report and agrees with it. Electronically signed by: Maxime Humphrey MD Narrative 12/25/2024 6:49 PM CDT EXAMINATION: RADIOLOGY CONSULTATION ON OUTSIDE IMAGING STUDY STUDY INITIALLY PERFORMED: 12/25/2024 at [facility]. TYPE OF STUDY: Multiple CT images of the head, face, and cervical spine without intravenous contrast are provided at the time of this interpretation. CONTRAST ROUTE: No contrast was administered. The protocol was adequate to address the clinical question. The outside final report was not available at the time of this second opinion interpretation. TYPE OF CONSULTATION: Consult on outside imaging study with images submitted through Outside Image Sharing Service DATE OF CONSULTATION: 12/25/2024 5:47 PM HISTORY: Fall with known C1 fracture. COMPARISON: None available. FINDINGS: HEAD: Subcutaneous hematoma is noted overlying the right frontal scalp. Right preseptal hematoma. No post septal extension. No retrobulbar hematoma. There is no acute intracranial hemorrhage. No mass effect or midline shift is present. 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 There is mild diffuse parenchymal volume loss with associated ex vacuo dilation of the ventricles. Ventricles are of normal size and morphology. The neely-white matter differentiation is normal. No fractures are identified. FACE: Post surgical changes of right orbital floor fracture fixation. 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 Multiple dental restorations are noted resulting in streak artifact mildly limiting evaluation of adjacent structures. Multiple dental caries are noted. The frontal, ethmoid, and sphenoid sinuses are normal. Aerated secretions are noted layering in the left maxillary sinus. The mastoid air cells are normal. There is no acute fracture. CERVICAL SPINE: There are nondisplaced comminuted fractures through the left anterior and posterior C1 arch, which extend into the lateral mass of C1. There is a nondisplaced fracture through the left occipital condyle. There is loss of normal cervical lordosis with mild anterolisthesis of C2 on C3 and C3 on C4. Vertebral bodies are normal in height without compression fractures. Severe multilevel degenerative disc disease, most prominent at C4-C5, C5-C6, C6-C7, and C7-T1. There is up to severe neuroforaminal stenosis on the left at C4-C5, C5-C6, and C6-C7. Severe multilevel uncovertebral and facet arthropathy. There is osseous fusion of the right C2-C3 facet. No high-grade spinal canal stenosis. Limited views of the lung apices demonstrate any acute abnormality. Procedure Note Maxime Humphrey MD - 12/25/2024 EXAMINATION: RADIOLOGY CONSULTATION ON OUTSIDE IMAGING STUDY STUDY INITIALLY PERFORMED: 12/25/2024 at [facility]. TYPE OF STUDY: Multiple CT images of the head, face, and cervical spine without intravenous contrast are provided at the time of this interpretation. CONTRAST ROUTE: No contrast was administered. The protocol was adequate to address the clinical question. The outside final report was not available at the time of this second opinion interpretation. TYPE OF CONSULTATION: Consult on outside imaging study with images submitted through Outside Image Sharing Service DATE OF CONSULTATION: 12/25/2024 5:47 PM HISTORY: Fall with known C1 fracture. COMPARISON: None available. FINDINGS: HEAD: Subcutaneous hematoma is noted overlying the right frontal scalp. Right preseptal hematoma. No post septal extension. No retrobulbar hematoma. There is no acute intracranial hemorrhage. No mass effect or midline shift is present. 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 There is mild diffuse parenchymal volume loss with associated ex vacuo dilation of the ventricles. Ventricles are of normal size and morphology. The neely-white matter differentiation is normal. No fractures are identified. FACE: Post surgical changes of right orbital floor fracture fixation. 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 Multiple dental restorations are noted resulting in streak artifact mildly limiting evaluation of adjacent structures. Multiple dental caries are noted. The frontal, ethmoid, and sphenoid sinuses are normal. Aerated secretions are noted layering in the left maxillary sinus. The mastoid air cells are normal. There is no acute fracture. CERVICAL SPINE: There are nondisplaced comminuted fractures through the left anterior and posterior C1 arch, which extend into the lateral mass of C1. There is a nondisplaced fracture through the left occipital condyle. There is loss of normal cervical lordosis with mild anterolisthesis of C2 on C3 and C3 on C4. Vertebral bodies are normal in height without compression fractures. Severe multilevel degenerative disc disease, most prominent at C4-C5, C5-C6, C6-C7, and C7-T1. There is up to severe neuroforaminal stenosis on the left at C4-C5, C5-C6, and C6-C7. Severe multilevel uncovertebral and facet arthropathy. There is osseous fusion of the right C2-C3 facet. No high-grade spinal canal stenosis. Limited views of the lung apices demonstrate any acute abnormality. IMPRESSION: 1. Nondisplaced comminuted fractures of the left anterior and posterior C1 arch, which extend into the lateral mass of C1. 2. Nondisplaced fracture through the left occipital condyle. 3. No evidence of acute fracture in the maxillofacial bones, orbits, or paranasal sinuses. 4. No acute intracranial abnormality. 5. Subcutaneous hematoma overlying the left frontal scalp with small preseptal component. No post septal or retrobulbar hematoma. No underlying fracture. 6. Severe degenerative disc disease resulting in up to severe neuroforaminal stenosis on the left at C4-C5, C5-C6, and C6-C7. The findings, conclusions and recommendations within this report do not replace the initial findings, conclusions and recommendations made at the facility where the study was performed based upon the imaging and clinical condition at that time. Comparison with the prior report and clinical history is necessary. The provided images may or may not represent the [place] source data set and thus may contain changes that may lower the accuracy of this second-opinion interpretation. Dictated by: Lonny Boyer MD The radiology attending physician has personally reviewed this study, and had reviewed and/or edited this written report and agrees with it. Electronically signed by: Maxime Humphrey MD us Gino Higginbotham MD IMG CT PROCEDURES Fin al Result * Neuro CT Outside Consult (12/25/2024 5:44 PM CDT) Anatomical Region Laterality Modality N/A Computed Tomogra phy 12/25/2024 6:02 PM CDT Impressions 12/25/2024 6:49 PM CDT 1. Nondisplaced comminuted fractures of the left anterior and posterior C1 arch, which extend into the lateral mass of C1. 2. Nondisplaced fracture through the left occipital condyle. 3. No evidence of acute fracture in the maxillofacial bones, orbits, or paranasal sinuses. 4. No acute intracranial abnormality. 5. Subcutaneous hematoma overlying the left frontal scalp with small preseptal component. No post septal or retrobulbar hematoma. No underlying fracture. 6. Severe degenerative disc disease resulting in up to severe neuroforaminal stenosis on the left at C4-C5, C5-C6, and C6-C7. The findings, conclusions and recommendations within this report do not replace the initial findings, conclusions and recommendations made at the facility where the study was performed based upon the imaging and clinical condition at that time. Comparison with the prior report and clinical history is necessary. The provided images may or may not represent the [place] source data set and thus may contain changes that may lower the accuracy of this second-opinion interpretation. Dictated by: Lonny Boyer MD The radiology attending physician has personally reviewed this study, and had reviewed and/or edited this written report and agrees with it. Electronically signed by: Maxime Hupmhrey MD Narrative 12/25/2024 6:49 PM CDT EXAMINATION: RADIOLOGY CONSULTATION ON OUTSIDE IMAGING STUDY STUDY INITIALLY PERFORMED: 12/25/2024 at [facility]. TYPE OF STUDY: Multiple CT images of the head, face, and cervical spine without intravenous contrast are provided at the time of this interpretation. CONTRAST ROUTE: No contrast was administered. The protocol was adequate to address the clinical question. The outside final report was not available at the time of this second opinion interpretation. TYPE OF CONSULTATION: Consult on outside imaging study with images submitted through Outside Image Sharing Service DATE OF CONSULTATION: 12/25/2024 5:47 PM HISTORY: Fall with known C1 fracture. COMPARISON: None available. FINDINGS: HEAD: Subcutaneous hematoma is noted overlying the right frontal scalp. Right preseptal hematoma. No post septal extension. No retrobulbar hematoma. There is no acute intracranial hemorrhage. No mass effect or midline shift is present. 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 There is mild diffuse parenchymal volume loss with associated ex vacuo dilation of the ventricles. Ventricles are of normal size and morphology. The neely-white matter differentiation is normal. No fractures are identified. FACE: Post surgical changes of right orbital floor fracture fixation. 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 Multiple dental restorations are noted resulting in streak artifact mildly limiting evaluation of adjacent structures. Multiple dental caries are noted. The frontal, ethmoid, and sphenoid sinuses are normal. Aerated secretions are noted layering in the left maxillary sinus. The mastoid air cells are normal. There is no acute fracture. CERVICAL SPINE: There are nondisplaced comminuted fractures through the left anterior and posterior C1 arch, which extend into the lateral mass of C1. There is a nondisplaced fracture through the left occipital condyle. There is loss of normal cervical lordosis with mild anterolisthesis of C2 on C3 and C3 on C4. Vertebral bodies are normal in height without compression fractures. Severe multilevel degenerative disc disease, most prominent at C4-C5, C5-C6, C6-C7, and C7-T1. There is up to severe neuroforaminal stenosis on the left at C4-C5, C5-C6, and C6-C7. Severe multilevel uncovertebral and facet arthropathy. There is osseous fusion of the right C2-C3 facet. No high-grade spinal canal stenosis. Limited views of the lung apices demonstrate any acute abnormality. Procedure Note Maxime Humphrey MD - 12/25/2024 EXAMINATION: RADIOLOGY CONSULTATION ON OUTSIDE IMAGING STUDY STUDY INITIALLY PERFORMED: 12/25/2024 at [facility]. TYPE OF STUDY: Multiple CT images of the head, face, and cervical spine without intravenous contrast are provided at the time of this interpretation. CONTRAST ROUTE: No contrast was administered. The protocol was adequate to address the clinical question. The outside final report was not available at the time of this second opinion interpretation. TYPE OF CONSULTATION: Consult on outside imaging study with images submitted through Outside Image Sharing Service DATE OF CONSULTATION: 12/25/2024 5:47 PM HISTORY: Fall with known C1 fracture. COMPARISON: None available. FINDINGS: HEAD: Subcutaneous hematoma is noted overlying the right frontal scalp. Right preseptal hematoma. No post septal extension. No retrobulbar hematoma. There is no acute intracranial hemorrhage. No mass effect or midline shift is present. 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 There is mild diffuse parenchymal volume loss with associated ex vacuo dilation of the ventricles. Ventricles are of normal size and morphology. The neely-white matter differentiation is normal. No fractures are identified. FACE: Post surgical changes of right orbital floor fracture fixation. 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 Multiple dental restorations are noted resulting in streak artifact mildly limiting evaluation of adjacent structures. Multiple dental caries are noted. The frontal, ethmoid, and sphenoid sinuses are normal. Aerated secretions are noted layering in the left maxillary sinus. The mastoid air cells are normal. There is no acute fracture. CERVICAL SPINE: There are nondisplaced comminuted fractures through the left anterior and posterior C1 arch, which extend into the lateral mass of C1. There is a nondisplaced fracture through the left occipital condyle. There is loss of normal cervical lordosis with mild anterolisthesis of C2 on C3 and C3 on C4. Vertebral bodies are normal in height without compression fractures. Severe multilevel degenerative disc disease, most prominent at C4-C5, C5-C6, C6-C7, and C7-T1. There is up to severe neuroforaminal stenosis on the left at C4-C5, C5-C6, and C6-C7. Severe multilevel uncovertebral and facet arthropathy. There is osseous fusion of the right C2-C3 facet. No high-grade spinal canal stenosis. Limited views of the lung apices demonstrate any acute abnormality. IMPRESSION: 1. Nondisplaced comminuted fractures of the left anterior and posterior C1 arch, which extend into the lateral mass of C1. 2. Nondisplaced fracture through the left occipital condyle. 3. No evidence of acute fracture in the maxillofacial bones, orbits, or paranasal sinuses. 4. No acute intracranial abnormality. 5. Subcutaneous hematoma overlying the left frontal scalp with small preseptal component. No post septal or retrobulbar hematoma. No underlying fracture. 6. Severe degenerative disc disease resulting in up to severe neuroforaminal stenosis on the left at C4-C5, C5-C6, and C6-C7. The findings, conclusions and recommendations within this report do not replace the initial findings, conclusions and recommendations made at the facility where the study was performed based upon the imaging and clinical condition at that time. Comparison with the prior report and clinical history is necessary. The provided images may or may not represent the [place] source data set and thus may contain changes that may lower the accuracy of this second-opinion interpretation. Dictated by: Lonny Boyer MD The radiology attending physician has personally reviewed this study, and had reviewed and/or edited this written report and agrees with it. Electronically signed by: Maxime Humphrey MD us Gino Higginbotham MD IMG CT PROCEDURES Fin al Result * XR Outside Reference (12/25/2024 5:42 PM CDT) Impressions [facility] - 12/25/2024 5:42 PM CDT These images are for Reference purposes only and have not been reviewed by [facility] Radiology. There will be no report generated by a [facility] Radiologist. Narrative [facility] - 12/25/2024 5:42 PM CDT EXAMINATION: Images For Reference Purposes Only us Gino Higginbotham MD IMG XR PROCEDURES Fin al Result [facility] from Last 3 Months Insurance MEDICARE MEDICARE [facility] MEDICARE SUPPLEMENT MEDICARE [facility] MEDICARE SUPPLEMENT Advance Directives For more information, please contact: [phone] * Full Code (Latest Code Status on File) Date Activated Date Inactivated Comments 12/26/2024 12:38 AM 12/31/2024 6:31 PM * Full Code Date Activated Date Inactivated Comments 05/13/2024 8:42 PM 05/27/2024 11:27 PM Care Teams Feather Trimmer Relationship Specialty Start Date End Date Meagan Yusuf MD PCP - General Family Medicine 05/22/23 Anneamrie Lea MD [address] [place] [address] Consulting Physician Otolaryngology 05/27/24 Margy Walker MD PhD [address] [place] [address] Consulting Physician Plastic Surgery 05/27/24 Geraldine Barbosa NP [address] [place] [address] Nurse Practitioner Neurosurgery 05/27/24
--- OUTSIDE RECORDS SUMMARY | 2025-03-15 15:56 | XMS_ITS | Data Portability ---
Author Organization [place] [facility] OFFICE Address [address] [place] [address] Care Team Providers Care Accounting Advisory Services Manager Name Role Phone JUAN DAVID PAVON Primary [...] current medications, and medical follow-up as noted. [email or web address] Not available 10/26/2020 14:30:27 11/09/2020 11/09/2020 Discussed [...] Not available 17:10:42 electrocard iogram 2020 021 [email or web address] Not available 14:35:30 Medication Orders rosuvastati n 40 mg tablet 2020 021 [facility]64873, [address], [place], [id number], 12:58:37 lisinopril 5 mg tablet 2020 [facility] #34839, [address], [place], [id number], 12:58:39 spironolact one 25 mg tablet 2020 [facility] #30850, [address], [place], [id number], 12:58:59 aspirin 81 mg tablet,lamont yed release 2020 [facility] #68096, [address] [place] [address], [id number], 14:35:37 clopidogrel 75 mg tablet 2020 [facility] #86476, [address], [place], [id number], 14:35:38 rosuvastati n 20 mg tablet 2020 [facility] #98939, [address], [place], [id number], 14:35:39 metoprolol succinate ER 25 mg tablet,exte nded release 24 hr 2020 [facility] #70741, [address], [place], [id number], 14:35:39 potassium chloride ER 20 mEq tablet,exte nded release 2020 [facility] #68307, [address], [place], [id number], 14:35:37 furosemide 40 mg tablet 2020 021 [facility] #38889, [address], [place], [id number], 14:35:38 Patient TargetsNo targets recorded. Patient Instructions Encounter Date Encounter Id Patient Instructions Last Modified By Organization Details Last Modified Time 10/26/2020 [id number] high cholesterol : care instructions Not available 10/26/2020 14:35:29 When You Want to Lose Weight: Care Instructions [email or web address] Not available 10/26/2020 14:35:30 sleep apnea: car e instructions [email or web address] Not available 10/26/2020 14:35:30 high blood pressure: care instructions [email or web address] Not available 10/26/2020 14:35:30 learning about high blood pressure [email or web address] Not available 10/26/2020 14:35:30 11/09/2020 [id number] high cholesterol : care instructions [email or web address] Not available 11/09/2020 12:58:27 When You Want to Lose Weight: Care Instructions [email or web address] Not available 11/09/2020 12:58:27 sleep apnea: car e instructions [email or web address] Not available 11/09/2020 12:58:27 high blood pressure: care instructions [email or web address] Not available 11/09/2020 12:58:27 learning about high blood pressure [email or web address] Not available 11/09/2020 12:58:27 Reason for Referral None Reported. Results Created Date Observation Date Name Description Value Unit Range Abnormal Flag Note LastModifiedBy Organization Detail LastModifiedTime 10/26/19 21 elect rocar diogr am No observ ation record ed. [email or web address] Sharif Bustamante MD [address], [place], [address], 10/26/2020 14:26:29 10/28/19 21 10/01/2020 US, doppl [...] ation record ed. елена Bustamante MD [address], [place], [address], 12/05/2020 17:10:42 11/17/19 21 10/26/2020 elect rocar diogr am No observ ation record ed. Not Available 11/18 13:56:02 Result Notes Documentation Provider Name and Address Organization Details Recorded Time Lipid Panel, Blood : 10/28/20:Na 137,K 3.9,Cl 102,Co2 30,Glu 94,Bun 18,Cr 0.7,AST 33,ALT 11. 10/28/20:TC 190,TG 79,HDL 87,LDL 83. 10/28/20:WBC 5.4,RBC 3.83,HGB 11.4,HCT 36.7,PLT 108. Dominic Rodriguez [place], [place] - [facility] 11/14/2020 16:16:49 Lipid Panel, Blood : 10/28/20:Na 137,K 3.9,CL 102,CO2 30,Glu 94,Bun 18,Cr 0.7,AST 33,ALT 11. 10/28/20:TC 190,TG 79,HDL 87,LDL pending. Dominic Rodriguez kayleen [facility] 01/24/2021 13:55:17 Problems Name Problem SNOMED Code Status Onset Date Resolution Date Notes Provider Name and Address Organization Details Recorded Time Heart failure with reduced ejection fraction 533221516 Active 2020 Desmond Dotymarlene beyer [facility] 13:41:26 Essential hypertension 12035797 Active 2020 [facility] 13:48:17 Hyperlipidemia 64697722 Active 2020 [facility] 13:48:29 Obstructive sleep apnea syndrome 65915801 Active 2020 Desmond Brioneshmmarlene beyer [facility] 13:48:37 Subsequent non-ST segment elevation myocardial infarction 266601110 Active 2020 Desmond Dotymarlene beyer [facility] 13:59:24 Obesity 424812429 Active 2020 [facility] 14:26:10 Problem Notes None recorded. Medical Equipment [...] Not Available Not Available [employer] Gerard [address] [place] active Not Available Not Available Not Available Vitals Date Recorded Body height Body mass index (BMI) Body weight Heart rate Respiratory rate Oxygen saturation Systolic And Diastolic Provider Name and Address Organization Details Last Updated DateTime 1 162.56 cm 42.6 kg/m2 840944. 91 g 70 /min 16 /min 92 % 114/82 mm[Hg] Juan David Jarquin [facility] 1 13:04:20 Date Recorded Body height Body mass index (BMI) Body weight Heart rate Oxygen saturation Inhaled oxygen flow rate Systolic And Diastolic Provider Name and Address Organization Details Last Updated DateTime 1 162.56 cm 43.1 kg/m2 898982. 68 g 75 /min 97 % 4 L/min 118/84 mm[Hg] DAVID KINGSTON [facility] 1 11:48:40 Social History None recorded. Functional Status Question Answer Note LastModified by Organization D etails LastModified Time What is your level of alcohol consumption? Moderate [email or web address] Information not available 10/26/2020 Mental Status None recorded. Family History Nothing Reported Notes:No premature SD. Medical History Condition Response Hyperlipidemia Y Hypertension Y Gynecological HistoryNo gynecological history recorded. Obstetrics History GPAL:G 0 P 0 0 0 0 Past Encounters Encounter ID Performer Location Encounter Start Date Encounter Closed Date Diagnosis/Indication Diagnosis SNOMED-CT Code Diagnosis ICD10 Code Diagnosis IMO Codes Diagnosis Note [id number] Desmond Padilla MD [place] [facility] [place] [address] 10/26/2020 12:49:39 10/26/2020 14:36:31 Heart failure with reduced ejection fraction 288949862 I50.21 Has nonischemi c cardiomyop athy, HF-rEF. She was in [facility] 09/30/20 with dyspnea, NSTEMI (peak [...] (RVSP 42 mmHg). Begin cardiac rehab at [facility]. Patient instructed to taper alcohol to off. Continue metoprolol and Lasix. Consider lisinopril and eventual spironolac tone. Obtain CMP, Mg, TSH, CBC, FLP. Hyperlipidemia 24292637 E78.5 Needs to keep LDL less than 70, and HDL more than 40. Obtain FLP. Obstructiv e sleep apnea syndrome 74039610 G47.33 She is now compliant with CPAP, with pulm. f/u. Essential hypertension 36764382 I10 Patient's blood pressure is well-contr olled on present medical therapy. Patient is tolerating , without difficulty , the current medication s. I have not made changes to the current regimen. Patient was advised to eat a low-sodium diet (2 grams sodium or less daily). BP diary. Subsequent non-ST segment elevation myocardial infarction 649230540 I22.2 Stable. Had [facility] 10/03/20: mild CAD (mLAD 40% followed by 50% disease which is diffuse from that point towards the end of the vessel), mild-moder ate LV systolic dysfunctio n (LVEF 40%) with nonischemi c cardiomyop athy. Continue ASA, Plavix, metoprolol , statin. Needs to keep LDL less than 70, and HDL more than 40. Maximal medical therapy. Obesity 277144303 E66.9 20 lb. weight loss recommende d over the next 2 months. [id number] Desmond Padilla MD [place] [facility] [place] [address] 11/09/2020 11:31:16 11/09/2020 13:02:04 Heart failure with reduced ejection fraction 139914069 I50.21 Has nonischemi c cardiomyop athy, HF-rEF. She was in [facility] 09/30/20 with dyspnea, NSTEMI (peak trop I 1.25), and CHF exacerbati on in setting of hypertensi ve urgency, COPD exacerbati on, untreated TRAVIS, left leg cellulitis (treated with doxycyclin e), possible pneumonia, diuresed with Lasix 40 mg bid. Had [facility] 10/03/20: mild CAD (mLAD 40% followed by [...] (RVSP 42 mmHg). Begin cardiac rehab at [facility]. Patient instructed to taper alcohol to off. [...] weeks. Subsequent non-ST segment elevation myocardial infarction 144332885 I22.2 Stable. Had [facility] 10/03/20: mild CAD (mLAD 40% followed by [...] more than 40. Maximal medical therapy. Hyperlipidemia 15467432 E78.5 Needs to keep LDL less than 70, and HDL more than 40. Had 10/28/20: LDL 83Increase d to rosuvastat in 40 mg qHS 11/09/20. Obstructiv e sleep apnea syndrome 06831889 G47.33 She is now compliant with CPAP, with pulm. f/u. Essential hypertension 77790113 I10 Patient's blood pressure is well-contr olled on present medical therapy. Patient is tolerating , without difficulty , the current medication s. I have not made changes to the current regimen. Patient is advised to maintain a blood pressure diary. Patient was advised to eat a low-sodium diet (2 grams sodium or less daily). BP diary. Obesity 255193049 E66.9 20 lb. weight loss recommende d [...] 10/26/2020 1 [place] Ping Montes Christin [id number] Ping Christin 11/06/2020 2 [place] [id number] Ping Taer [id number] Ping Christin Notes Date Note Type [...] hospital follow-up for HCF. She was in [facility] 09/30/20 with dyspnea, NSTEMI (peak [...] stated in the HPI and ROS. Had [facility] 10/03/20: mild CAD (mLAD 40% followed by [...] K 3.6, Mg 1.7, Cr 0.8, Had [facility] 10/03/20: mild CAD (mLAD 40% followed by [...] negative LE venous Doppler 09/2020. Desmond Padilla [place], [place] - [facility] 10/26/2020 14:36:29 [...] hospital follow-up for HCF. She was in [facility] 09/30/20 with dyspnea, NSTEMI (peak trop I 1.25), and CHF exacerbation in setting of hypertensive urgency, COPD exacerbation, untreated TRAVIS, left leg cellulitis (treated with doxycycline), possible pneumonia, diuresed with Lasix 40 mg bid. Had [facility] 10/03/20: mild CAD (mLAD 40% followed by [...] stated in the HPI and ROS. Had [facility] 10/03/20: mild CAD (mLAD 40% followed by [...] 1.4, hgb 11.4, plt 108 lab result [id number] result : hgb 10.7, K 3.6, Mg [...] view 09-30-2020 US, echocardiogram 09-30-2020 Desmond Padilla [place], [place] - [facility] 11/09/2020 12:58:46 OBGyn Episode No OBEpisode recorded.
--- OUTSIDE RECORDS SUMMARY | 2025-03-15 15:57 | XMS_ITS | Encounter Summary ---
Author Organization [facility] Healthcare Address [address] [place] [address] Care Team Providers Care Senior Sql Database Developer Name Role Phone Meagan Yusuf MD Primary Care Provider + Annemarie Lea MD Unavailable [phone] Margy Walker MD PhD Unavailable [phone] Geraldine Barbosa NP Unavailable [phone] Encounter Details Date Type Department Care Team (Late st Contact Info) Description 08/18/2024 Orders Only [facility] Health Information Management [address] [place] [id number] Scanning, Provider Social History Tobacco Use [...] on file Legal Sex 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 auris Comment:[id number] 12/26/2024 12/26/2024 01/02/2025 7:26 PM C DT documented as of this encounter Care Teams Senior Sql Database Developer Relationship Specialty Start Date End Date Meagan Yusuf MD PCP - General Family Medicine 05/22/23 Annemarie Lea MD [address] [place] [address] Consulting Physician Otolaryngology 05/27/24 Margy Walker MD PhD [address] [place] [address] Consulting Physician Plastic Surgery 05/27/24 Geraldine Barbosa NP [address] [place] [address] Nurse Practitioner Neurosurgery 05/27/24 documented as of this encounter
--- OUTSIDE RECORDS SUMMARY | 2025-03-15 15:57 | XMS_ITS | Clinical Summary ---
Author Organization [facility] Address [address] [place] [address] Phone Care Team Providers Care Hospital Supervisor Name Role Phone Juan David Yusuf MD Primary Care Provider [phone] Allergies Active Allergy Reactions Criticality Noted Date [...] 6 Tablets 42 Tablet 01/30/2018 3:41 PM LABORATORY TECH 8 Active Active Problems Problem Noted Date [...] Years Used Date Smoking Tobacco: Former Cigarettes 0 Q uit: 10/29/2010 Smokeless Tobacco: Former Alcohol Use Standard Drinks/Week Comments Yes 0 (1 standard drink = 0.6 oz pur e alcohol) social Comments No Sex and Gender Information Value Date Recorded Sex Assigned at Not on file Legal Sex Female 3:33 AM LABORATORY TECH Gender Identity Not on file Sexual Orientation Not on file Last Filed Vital Signs Vital Sign Reading Time Taken Comments Blood Pressure 123/62 01/30/2018 12:28 PM LABORATORY TECH Pulse 74 01/30/2018 12:28 PM LABORATORY TECH Temperature 36.5 C (97.7 F) 01/30/2018 12:28 PM LABORATORY TECH Respiratory Rate 10 01/30/2018 12:28 PM LABORATORY TECH Oxygen Saturation 93% 01/30/2018 12:28 PM LABORATORY TECH Inhaled Oxygen Concentration - - Weight 116.6 kg (257 lb) 01/28/2018 8:16 AM LABORATORY TECH Height 167.6 cm (5' 6) 01/28/2018 8:16 AM LABORATORY TECH Body Mass Index 41.48 01/28/2018 8:16 AM LABORATORY TECH Plan of Treatment Health Maintenance Due Date Last Done Comments DTAP/TDAP/TD VACCINES (1 - Tdap) 12/21/1966 PNEUMOCOCCAL VACCINE 50+ YEARS (1 of 2 - PCV) 12/21/18 67 ZOSTER VACCINE (1 of 2) 12/21/1997 OSTEOPOROSIS SCREENING 12/21/2012 RSV VACCINE (60+ or ) (1 - 1-dose 75+ series) 12/21/2022 INFLUENZA VACCINE (#1) 2024 01/28/2018 Medical Devices Implanted Type Area Stereo Plotter Operator Device Identifier Shelf Expiration Date Model / Serial / Lot Shell Ringlc+ Pc 54mm [id number] - [id number] Implanted:Qty: 1 on 11/08/2016 by Abhinav Quesada MD at [facility] Hip Right: Hip [employer] [id number] 09/27/2026 [id number] / / [id number] Liner Arcomxl Rnglc Sz24 Xl-[id number] - [id number] Implanted:Qty: 1 on 11/08/2016 by Abhinav Quesada MD at [facility] Hip Right: Hip [employer] [id number] 10/01/2020 [id number] / / [id number] Stem Fem Echo Bmtrc Por Red Lat [id number] - [id number] Implanted:Qty: 1 on 11/08/2016 by Abhinav Quesada MD at [facility] Hip Right: Hip [employer] [id number] 04/11/2025 [id number] / / [id number] Head Modular Noskt 36mm -3mm [id number] - [id number] Implanted:Qty: 1 on 11/08/2016 by Abhinav Quesada MD at [facility] Hip Right: Hip [employer] [id number] 09/25/2026 [id number] / / [id number] Rsp Glenoid Head W Retaining Screw Neutral Sz 32mm Implanted:Qty: 1 on 01/27/2018 by Guerrero Cho MD at [facility] Other Right: Shoulder [employer] 12/05/2023 508-32-10 1 / / [id number] Small Socket Insert 32mm Semi Constrained E Plus Implanted:Qty: 1 on 01/27/2018 by Guerrero Cho MD at [facility] Other Right: Shoulder [employer] 11/29/2022 509-03-03 2 / / [id number] Humeral Stem Small Shell [id number] Implanted:Qty: 1 on 01/27/2018 by Guerrero Cho MD at [facility] Other Right: Shoulder [employer] 11/22/2023 533-10-10 8 / / [id number] Description:All [employer] Surgical shoulder components are processed on requisition,[id number]. Rsp Glenoid Baseplate Implanted:Qty: 1 on 01/27/2018 by Guerrero Cho MD at [facility] Screw Right: Shoulder [employer] [id number] 10/23/2023 508-32-20 4 / / [id number] Rsp Bone Screw Locking Sz 5.0mm 30mm Long Implanted:Qty: 1 on 01/27/2018 by Guerrero Cho MD at [facility] Screw Right: Shoulder [employer] 06/25/2023 [id number] 0 / / [id number] Rsp Bone Screw Locking Sz 5.0mm 22 Mm Long Implanted:Qty: 1 on 01/27/2018 by Guerrero Cho MD at [facility] Screw Right: Shoulder [employer] 08/17/2023 506-12 2 / / [id number] Bone Screw Rsp5.0x26mm Long Implanted:Qty: 1 on 01/27/2018 by Guerrero Cho MD at [facility] Screw Right: Shoulder [employer] 6 / / Rsp Bone Screw- Locking Implanted:Qty: 1 on 01/27/2018 by Guerrero Cho MD at [facility] Right: Shoulder [employer] 11/01/2023 506-03-11 [id number] Insurance MEDICARE PART A AND B BCBS SUPP RX [employer] Medicare Part D RX [facility] Medicare Part D Advance Directives For more information, please contact: [phone] Documents on File Type Date Recorded Patient Gas Fitter Expl anation Advance Directive POA 02/04/2018 1:58 [...] 6:44 AM 11/08/2016 7:30 AM Care Teams Hospital Supervisor Relationship Specialty Start Date End Date Juan David Yusuf MD PCP - General Family Practice 01/14/18
--- OUTSIDE RECORDS SUMMARY | 2025-03-15 15:57 | XMS_ITS | Data Portability ---
Author Organization [facility], Main Office Address [address] [place] [address] Care Team Providers Care Tuberculosis Specialist Name Role Phone P [facility] FAX OTHER JAMILA YUSUF Primary Care Provider [phone] Assessment Encounter Date Assessment Date Assessment LastModified [...] Pt will d/c home on 07/07 with [facility], family oversight, and private duty nursing. New/Adjusted prescriptions have been sent to her pharmacy. Not available 07/06/2024 17:08:51 Plan of Treatment Reminders Order Date Submit Date Provider Last Modified By Organization Details Last Modified Time Details Appointments None recorded. Lab None recorded. Referral None recorded. Procedures None recorded. Surgeries None recorded. Imaging None recorded. Medication Orders metoprolol tartrate 25 mg tablet 2024 [facility]88489, [address] [place], [place], [id number], 17:09:51 diltiazem 60 mg tablet 2024 [facility] #24696, [address] [place], [place], [id number], 17:09:51 Trelegy Ellipta 200 mcg-62.5 mcg-25 mcg powder for inhalation 2024 [facility] #87164, [address] [place] [address], [id number], 17:09:49 bumetanide 1 mg tablet 2024 [facility] #13516, [address] [place] [address], [id number], 17:09:50 potassium chloride ER 20 mEq tablet,exte nded release 2024 [facility] #[id number], [address] [place] [address], [id number], 17:09:49 Patient TargetsNo targets recorded. Patient Instructions Encounter Date Encounter Id Patient Instructions Last Modified By Organization Details Last Modified Time 06/25/2024 [id number] I spent 36 minutes providing care to the patient today. More than 50% of that time was spent in discussing the expected course of the disease, discussing prognosis, coordinating care and counseling of the patient/family. Not available 06/25/2024 14:53:37 06/29/2024 [id number] I spent 36 minutes providing care to the patient today. More than 50% of that time was spent in discussing the expected course of the disease, discussing prognosis, coordinating care and counseling of the patient/family. Not available 06/29/2024 15:43:29 07/01/2024 [id number] I spent 35 minutes providing care to the patient today. More than 50% of that time was spent in discussing the expected course of the disease, discussing prognosis, coordinating care and counseling of the patient/family. Not available 07/01/2024 15:14:33 07/03/2024 [id number] I spent 36 minutes providing care to the patient today. More than 50% of that time was spent in discussing the expected course of the disease, discussing prognosis, coordinating care and counseling of the patient/family. Not available 07/04/2024 11:14:28 07/06/2024 [id number] I spent 40 minutes providing care to [...] Organization Details Recorded Time [facility] 01:52:21 total replacement of right hip joint completed Aristides Dickinson [facility] 06/17/2024 01:52:36 Appendectomy [facility] 06/17/2024 01:52:41 total shoulder replacement completed Aristides Lawrence [facility] 06/17/2024 01:53:12 Carpal tunnel surgery completed Aristides Lawrence [facility] 06/17/2024 01:53:23 Imaging Results None recorded. Procedure Notes None recorded. Medical Equipment None Reported. Allergies Allergen ID Allergen Name Allergen Category Reaction Reaction Severity Criticality Documentation Date Start Date Code Code System Note Provider Name and Address Organization Details Recorded Time 16127 Product containin g penicilli n (product) medicatio n Not available Not available Not available 06/17/2024 62441 8001 [facility]ED [facility] 22639 thiopenta l Not available Not available Not available Not available 06/17/2024 11507 Rx[facility] 01:[facility]29 Medications Name Sig Start [...] rate Body temperature Respiratory rate Oxygen saturation Inhaled oxygen flow rate Body mass index (BMI) Body weight Systolic And Diastolic Provider Name and Address Organization Details Last Updated DateTime 5 162.56 cm 84 /min 98.7 [degF] 20 /min 90 % 3 L/min 37.7 kg/m2 28885.1 7 g 128/71 mm[Hg] [place] [address] [place], [address], [place] [facility] 5 14:38:24 Date Recorded Body height Heart rate Body temperature Respiratory rate Oxygen saturation Inhaled oxygen flow rate Body mass index (BMI) Body weight Systolic And Diastolic Provider Name and Address Organization Details Last Updated DateTime 5 162.56 cm 74 /min 98.3 [degF] 18 /min 96 % 4 L/min 36.4 kg/m2 16825.8 6 g 117/77 mm[Hg] [place] [address] [place], [address], [place] [facility] 5 09:59:41 Date Recorded Body height Heart rate Body temperature Respiratory rate Oxygen saturation Inhaled oxygen flow rate Body mass index (BMI) Body weight Systolic And Diastolic Provider Name and Address Organization Details Last Updated DateTime 5 162.56 cm 90 /min 98.5 [degF] 20 /min 92 % 4 L/min 36.8 kg/m2 13458.2 g 121/71 mm[Hg] [place] [address] [place], [address], [place] [facility] 5 14:57:30 Date Recorded Body height Heart rate Body temperature Respiratory rate Oxygen saturation Inhaled oxygen flow rate Body mass index (BMI) Body weight Systolic And Diastolic Provider Name and Address Organization Details Last Updated DateTime 5 162.56 cm 99 /min 98.5 [degF] 18 /min 96 % 4 L/min 37.2 kg/m2 81051.8 3 g 111/66 mm[Hg] [place] [address] [place], [address], [place] [employer] [facility] 5 09:51:16 Date Recorded Body height Heart rate Body temperature Respiratory rate Oxygen saturation Inhaled oxygen flow rate Body mass index (BMI) Body weight Systolic And Diastolic Provider Name and Address Organization Details Last Updated DateTime 162.56 cm 84 /min 98.7 [degF] 20 /min 93 % 4 L/min 36.6 kg/m2 59198.5 3 g 110/76 mm[Hg] Emy Su, [employer] [address] [facility], [place], [address], [place] [facility] 10:53:58 Social History Question Answer Notes LastModified by [employer] Details LastModified Time Tobacco Smoking Status Former Smoker Aristides Lawrence null, [place] [facility] 06/17/2024 01:56:15 What Is Your Code Status? DNR mvandorn Information not available 06/19/2024 When Did You Quit Smoking? 16+yearssinc elastcigaret te Information not available 06/17/2024 Sex: Unknown Functional Status Question Answer Note LastModified by [facility] Details LastModified Time Do you use any [...] Depression Y Pulmonary Hypertension Y Myocardial Infarction ([place]) Y Neuropathy Y Alcohol Abuse Y Hypertension Y COVID-19 Y Gynecological HistoryNo gynecological history recorded. Obstetrics History GPAL:G 0 P 0 0 0 0 Past Encounters Encounter ID Performer Location Encounter Start Date Encounter Closed Date Diagnosis/Indication Diagnosis SNOMED-CT Code Diagnosis ICD10 Code Diagnosis IMO Codes Diagnosis Note [id number] Meagan Menjivar, [address] [address] 06/17/2024 13:52:49 06/21/2024 03:24:15 Closed fracture of distal end of left radius 4958152688 5100857 S52.502D s/p ORIF 05/18 per hand/plast ics at [facility] remains NWB LUE with OCL splint in placeconti nue tylenol prn for painfu as scheduled with Dr. Shultz. Atrial fibrillation 4943 6004 I48.91 anticoagul ation has been heldcontin ue metoprolol and diltiazem for rate controlout patient cardiology fu as scheduled with Dr. 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 929879512 I13.0 continue diltiazem, metoprolol , lasixmonit or blood pressureso utpatient f/u with cardiology Coronary arteriosclerosis 86332015 I25.10 details unclear - patient denies recent chest pain and does not take nitro prn as outpatient continue current medication s regimen and f/u with cards as scheduled Chronic ob structive pulmonary disease 77893818 J44.9 on 4 liters/min [place] of supplement al O2 at baselinesh e does not use CPAP at home and has been refusing at rehabShe has her cpap machine at the facility and we will encourage compliance while hereoutpat ient fu with pulmonaryc ontinue trelegy which is newly prescribed - adding back prn duonebs Crohn's disease 15474141 K50.90 continue balsalazid e and cathartics as orderedout patient fu with GI Vitamin deficiency 64415 002 E56.9 continue B12 and vitamin D replacemen t therapy Constipation 20096420 K5 9.00 the patient is on routine senna s and miralaxmon itor clinically and adjust accordingl y Major depr essive disorder 680548991 F32.9 continue sertraline Gastroesop hageal reflux disease without esophagitis 666166021 K21.9 stable - continue pepcid Idiopathic peripheral neuropathy 40778642 G60.9 continue neurontin and prn tylenol Fracture of orbit 016251 07 S02.31XD ENT did ORIF 05/19eye drops have been d/c'doutpa tient f/u with ENT Intraparen chymal hemorrhage of brain 341276304 I61.8 anticoagul ation has been heldNS followed her during her hospitaliz ationshe completed seizure prophylaxi s medscontin ue to monitor neuro statuscont inue therapiesf /u with neurosurge ry as scheduled 06/30 with repeat head imaging Restless l egs syndrome 95686309 G25.81 continue ropinirole and pramipexol e Acute urin zuleika tract infection 155487547 N39.0 per urine done on arrival at [facility] - culture grew >100,000 klebsiella sensitivit ies were not ran for 1st generation cephalospo rins which is what the patient was treated with while at [facility] (Ancef x 7 days)she currently has no urinary symptoms or other concerns for infectionw ill monitor clinically Physical deconditioning 4278921650 9102 R68.89 related to advanced age, recent fall, comorbidit iestherapi es are in place, she will return home with family support upon d/c from [id number] Meagan Menjivar DO [address] [place] [address] 06/22/2024 13:16:28 06/28/2024 20:30:53 Closed fracture of distal end of left radius 8946082043 0769234 S52.502D s/p ORIF 05/18 per hand/plast ics at [facility].She remains NWB LUE with OCL splint in place.Cont inue Tylenol PRN for pain.F/U as scheduled with Dr. Shultz on 06/23. Fracture of orbit 473594 07 S02.31XD ENT did ORIF on 05/19.Eye drops have been d/c'd.Outp atient f/u with ENT. Intraparen chymal hemorrhage of brain 875037367 I61.8 Anticoagul ation has been held.NS followed [...] Radha Jimenez on 07/22. Congestive heart failure 56517226 I50.9 Continue Lasix and Metoprolol .Monitor edema -- may need additional diuretics. Continue to trend blood pressures, monitor lytes and renal function, and adjust meds as clinically indicated. Chronic ki dney disease 008781403 N18.9 Unclear baseline. Cr appears to be WNL for most of her recent hospitaliz ation.Avoi d nephrotoxi ns and trend labs. Hyperlipidemia 31770548 E78.5 Presumed stable. Continue statin. 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 Continue Diltiazem, Metoprolol , and Lasix.Cont inue to trend blood pressures, monitor lytes and renal function, and adjust meds as clinically indicated. outpatient f/u with cardiology as above. Coronary arteriosclerosis 58072208 I25.10 Details unclear. Patient denies recent chest pain and does not take nitro prn as outpatient .Continue current medication s regimen and f/u with cards as scheduled. Chronic ob structive pulmonary disease 48075900 J44.9 on 4 liters/min [place] of supplement al O2 at baseline.S he does not use CPAP at home and has been refusing at rehab. She has her cpap machine at the facility and we will encourage compliance while here.Outpa tient f/u with pulmonary. Continue Trelegy, which is newly prescribed .Schedule Albuterol Nebs BID -- this is pt's OP orders (she admits to usually only doing once/day). Crohn's disease 12895205 K50.90 Continue Balsalazid e and cathartics as ordered.Ou tpatient f/u with GI. Vitamin deficiency 24899 002 E56.9 Continue B12 and vitamin D replacemen t therapy. Constipation 59506993 K5 9.00 Patient is on routine Senna S and Miralax.Mo nitor clinically and adjust accordingl y. Major depr essive disorder 130974092 F32.9 Stable. Continue Sertraline . Gastroesop hageal reflux disease without esophagitis 116508037 K21.9 Stable. Continue Pepcid. Idiopathic peripheral neuropathy 89204975 G60.9 Stable. Continue Neurontin and PRN Tylenol. Restless l egs syndrome 67920665 G25.81 Stable. Continue Ropinirole and Pramipexol e. Acute urin zuleika tract infection 903200792 N39.0 Per urine done on arrival at [facility], culture grew >100,000 klebsiella .Sensitivi ties were not ran for 1st generation cephalospo rins, which is what the patient was treated with while at [facility] (Ancef x 7 days).She currently has no urinary symptoms or other concerns for infection. Monitor clinically . Physical deconditioning 8664143381 9102 R68.89 Related to advanced age, recent fall, comorbidit ies.Therap ies are in place, she will return home with family support upon d/c from . [id number] Meagan Menjivar DO [address] [address] 06/25/2024 10:24:52 07/06/2024 11:30:12 Closed fracture of distal end of left radius 1358064677 1396848 S52.502D s/p ORIF 05/18 per hand/plast ics Dr. Margy Walker at [facility].She was initially NWB to LUE with OCL splint in place. Was seen by Dr. Walker on 06/23, OCL splint removed and wrist brace placed in stead, which she is to wear at all times (remove for exercise & shower) x 2 weeks.Cont inue Tylenol PRN for pain.Sutur es removed at 06/23 appt. Incisions healed.F/U with Dr. Walker PRN. Fracture of orbit 117262 07 S02.31XD S/P ORIF on 05/19 per ENT.Eye drops have been d/c'd.Outp atient f/u with ENT. Intraparen chymal hemorrhage of brain 260858137 I61.8 Anticoagul ation has been held.NS followed her during her hospitaliz ation.Comp leted seizure prophylaxi s meds.Guprreet nue to monitor neuro status.Con tinue therapies. f/u with neurosurge ry as scheduled 06/30 with repeat head imaging. Atrial fibrillation 4943 6004 I48.91 Anticoagul ation has been held.Gurpreet nue Metoprolol and Diltiazem for rate control.Ca rdiology f/u as scheduled with Dr. Radha Jimenez on 07/22. Congestive heart failure 09502468 I50.9 Continue Lasix and Metoprolol .Pt reports weight prior to hospitaliz ation was 198 lbs.Add Metolazone x 5 days.KCl increase to 40 meq BID x 5 days, then back to 20 meq daily.Labs (CBC, CMP, BNP on 06/29.Monito r edema, weights, and labs. Chronic ki dney disease 809716626 N18.9 Unclear baseline. Cr appears to be WNL for most of her recent hospitaliz ation.Avoi d nephrotoxi ns and trend labs. Hyperlipidemia 07504834 E78.5 Presumed stable. Continue statin. 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 Continue Diltiazem, Metoprolol , Lasix, and Potassium. Bursting with Metolazone as above.Cont inue to trend blood pressures, monitor lytes and renal function, and adjust meds as clinically indicated. Outpatient f/u with cardiology as above. Coronary arteriosclerosis 68664393 I25.10 Details unclear. Patient denies recent chest pain and does not take nitro prn as outpatient .Continue current medication s regimen and f/u with cards as scheduled. Chronic ob structive pulmonary disease 31518641 J44.9 on 4 liters/min [place] of supplement al O2 at baseline.S he [...] well.Outpa tient f/u with pulmonary. Crohn's disease 46097399 K50.90 Continue Balsalazid e and cathartics as ordered.Ou tpatient f/u with GI. Vitamin deficiency 20575 002 E56.9 Continue B12 and vitamin D replacemen t therapy. Constipation 99638129 K5 9.00 Patient is on routine Senna S and Miralax.Mo nitor clinically and adjust accordingl y. Major depr essive disorder 432479565 F32.9 Stable. Continue Sertraline . Gastroesop hageal reflux disease without esophagitis 941765312 K21.9 Stable. Continue Pepcid. Idiopathic peripheral neuropathy 15832370 G60.9 Stable. Continue Neurontin and PRN Tylenol. Restless l egs syndrome 38426812 G25.81 Stable. Continue Ropinirole and Pramipexol e. Acute urin zuleika tract infection 893833483 N39.0 Per urine done on arrival at [facility], culture grew >100,000 klebsiella .Sensitivi ties were not ran for 1st generation cephalospo rins, which is what the patient was treated with while at [facility] (Ancef x 7 days).She currently has no urinary symptoms or other concerns for infection. Monitor clinically . Physical deconditioning 5317104800 9102 R68.89 Related to advanced age, recent fall, comorbidit ies.Therap ies are in place, she will return home with family support upon d/c from . [id number] Meagan Menjivar DO [place] [address] [place] [address] 06/29/2024 09:59:14 07/06/2024 11:31:59 Congestive heart failure 23272810 I50.9 Continue Lasix, KCl, and Metoprolol .Pt reports weight prior to hospitaliz ation was 198 lbs. Weight is down 8 lbs in the last 5 days but still [+] 13 lbs.Contin ues on Metolazone through 07/01.Labs (CBC, CMP, BNP) pending from this AM.Monitor edema, weights, and labs. 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 Continue Diltiazem, Metoprolol , Lasix, and Potassium. Bursting with Metolazone as above.Cont inue to trend blood pressures, monitor lytes and renal function, and adjust meds as clinically indicated. Outpatient f/u with cardiology as above. Closed fra cture of distal end of left radius 1510396240 7070062 S52.502D s/p ORIF 05/18 per hand/plast ics Dr. Margy Walker at [facility].She was initially NWB to LUE with OCL splint in place. Was seen by Dr. Walker on 06/23, OCL splint removed and wrist brace placed in stead, which she is to wear at all times (remove for exercise & shower) x 2 weeks.Cont inue Tylenol PRN for pain.Sutur es removed at 06/23 appt. Incisions healed.F/U with Dr. Walker PRN. Fracture of orbit 563109 07 S02.31XD S/P ORIF on 05/19 per ENT.Eye drops have been d/c'd.Outp atient f/u with ENT. Intraparen chymal hemorrhage of brain 675130381 I61.8 Anticoagul ation has been held.NS followed her during her hospitaliz ation.Comp leted seizure prophylaxi s meds.Gurpreet nue to monitor neuro status.Con tinue therapies. f/u with neurosurge ry as scheduled 06/30 with repeat head imaging. Atrial fibrillation 7621 6007 I48.91 Anticoagul ation has been held.Gurpreet nue Metoprolol and Diltiazem for rate control.Ca rdiology f/u as scheduled with Dr. Radha Jimenez on 4/30. Chronic ki dney disease 566962591 N18.9 Unclear baseline. Cr appears to be WNL for most of her recent hospitaliz ation.Avoi d nephrotoxi ns and trend labs. Hyperlipidemia 15163114 E78.5 Presumed stable. Continue statin. Coronary arteriosclerosis 08140566 I25.10 Details unclear. Patient denies recent chest pain and does not take nitro prn as outpatient .Continue current medication s regimen and f/u with cards as scheduled. Chronic ob structive pulmonary disease 17970721 J44.9 on 4 liters/min [place] of supplement al O2 at baseline.S he [...] well.Outpa tient f/u with pulmonary. Crohn's disease 49990019 K50.90 Continue Balsalazid e and cathartics as ordered.Ou tpatient f/u with GI. Vitamin deficiency 86907 002 E56.9 Continue B12 and vitamin D replacemen t therapy. Constipation 61460341 K5 9.00 Patient is on routine Senna S and Miralax.Mo nitor clinically and adjust accordingl y. Major depr essive disorder 287141155 F32.9 Stable. Continue Sertraline . Gastroesop hageal reflux disease without esophagitis 918807200 K21.9 Stable. Continue Pepcid. Idiopathic peripheral neuropathy 29755595 G60.9 Stable. Continue Neurontin and PRN Tylenol. Restless l egs syndrome 72370486 G25.81 Stable. Continue Ropinirole and Pramipexol e. Acute urin zuleika tract infection 556871428 N39.0 Per urine done on arrival at [facility], culture grew >100,000 klebsiella .Sensitivi ties were not ran for 1st generation cephalospo rins, which is what the patient was treated with while at [facility] (Ancef x 7 days).She currently has no urinary symptoms or other concerns for infection. Monitor clinically . Physical deconditioning 3526967236 9102 R68.89 Related to advanced age, recent fall, comorbidit ies.Therap ies are in place, she will return home with family support upon d/c from [place]. [id number] Meagan Menjivar, [place] [address] [facility] [place] [address] 07/01/2024 12:56:01 07/06/2024 11:33:06 Congestive heart failure 01851779 I50.9 Continue Lasix, KCl, and Metoprolol .Pt reports weight prior to hospitaliz ation was 198 lbs. Weight is down 5 lbs with Metolazone burst. Completes today.Franca tor weights/ed sandra/labs. Hypertensi ve heart and renal disease with (congestive) heart failure 984189048 I13.0 Stable. Continue Diltiazem, Metoprolol , Lasix, and Potassium. Bursting with Metolazone as above.Cont inue to trend blood pressures, monitor lytes and renal function, and adjust meds as clinically indicated. Outpatient f/u with cardiology as above. Closed fra cture of distal end of left radius 5538859631 5465415 S52.502D s/p ORIF 05/18 per hand/plast ics Dr. Margy Walker at [facility].She was initially NWB to LUE with OCL splint in place. Was seen by Dr. Walker on 06/23, OCL splint removed and wrist brace placed in stead, which she is to wear at all times (remove for exercise & shower) x 2 weeks.Cont inue Tylenol PRN for pain.Sutur es removed at 06/23 appt. Incisions healed.F/U with Dr. Walker PRN. Fracture of orbit 480318 07 S02.31XD S/P ORIF on 05/19 per ENT.Eye drops have been d/c'd.Outp atient f/u with ENT. Intraparen chymal hemorrhage of brain 686369718 I61.8 Anticoagul ation has been held.NS followed [...] Jimenez on 07/22. Chronic ki dney disease 603196194 N18.9 Unclear baseline. Cr appears to be WNL for most of her recent hospitaliz ation.Avoi d nephrotoxi ns and trend labs. Hyperlipidemia 01212550 E78.5 Presumed stable. Continue statin. Coronary arteriosclerosis 33267884 I25.10 Details unclear. Patient denies recent chest pain and does not take nitro prn as outpatient .Continue current medication s regimen and f/u with cards as scheduled. Chronic ob structive pulmonary disease 68201968 J44.9 on 4 liters/min [place] of supplement al O2 at baseline.S he [...] well.Outpa tient f/u with pulmonary. Crohn's disease 49697256 K50.90 Continue Balsalazid e and cathartics as ordered.Ou tpatient f/u with GI. Vitamin deficiency 55990 002 E56.9 Continue B12 and vitamin D replacemen t therapy. Constipation 57620516 K5 9.00 Patient is on routine Senna S and Miralax.Mo nitor clinically and adjust accordingl y. Major depr essive disorder 612378254 F32.9 Stable. Continue Sertraline . Gastroesop hageal reflux disease without esophagitis 653667024 K21.9 Stable. Continue Pepcid. Idiopathic peripheral neuropathy 64033600 G60.9 Stable. Continue Neurontin and PRN Tylenol. Restless l egs syndrome 41723096 G25.81 Stable. Continue Ropinirole and Pramipexol e. Acute urin zuleika tract infection 764049017 N39.0 Per urine done on arrival at [facility], culture grew >100,000 klebsiella .Sensitivi ties were not ran for 1st generation cephalospo rins, which is what the patient was treated with while at [facility] (Ancef x 7 days).She currently has no urinary symptoms or other concerns for infection. Monitor clinically . Physical deconditioning [id number] 9102 R68.89 Related to advanced age, recent fall, comorbidit ies.Therap ies are in place, she will return home with family support upon d/c from [place]. Chronic hy poxemic respiratory failure [id number] J96.11 [id number] SEE ABOVE... [id number] Meagan Menjivar, DO [address] [address] 07/03/2024 09:50:27 07/06/2024 11:34:03 Congestive heart failure [id number] I50.9 Improved with Metolazone burst (down 8 lbs) but has begun gaining weight and worsening edema since completed. Pt reports weight prior to hospitaliz ation was 198 lbs.Contin ue KCl and Metoprolol .Increase Lasix to Bumex 1.5 mg daily.Labs on Saturday.Satr weights/ed sandra/labs. Chronic ob structive pulmonary disease 79259197 J44.9 on 4 liters/min [place] of supplement al O2 at baseline.S he [...] with pulmonary. Chronic hy poxemic respiratory failure 521577020 J96.11 [id number] SEE ABOVE... Hypertensi ve heart and renal disease with (congestive) heart failure 138236590 I13.0 Stable. Continue Diltiazem, Metoprolol , and Potassium. Changing Lasix to Bumex as above.Rece ived Metolazone burst from 06/26 to 07/01.Contin ue to trend blood pressures, monitor lytes and renal function, and adjust meds as clinically indicated. Outpatient f/u with cardiology as above. Closed fra cture of distal end of left radius [id number] S52.502D s/p ORIF 05/18 per hand/plast ics Dr. Margy Walker at [facility].She was initially NWB to LUE with OCL splint in place. Was seen by Dr. Walker on 06/23, OCL splint removed and wrist brace placed in stead, which she is to wear at all times (remove for exercise & shower) x 2 weeks (07/07).Con tinue Tylenol PRN for pain.Sutur es removed at 06/23 appt. Incisions healed.F/U with Dr. Walker PRN. Fracture of orbit 277895 07 S02.31XD S/P ORIF on 05/19 per ENT.Eye drops have been d/c'd.Outp atient f/u with ENT. Intraparen chymal hemorrhage of brain 327924001 I61.8 Anticoagul ation has been held.NS followed [...] Jimenez on 07/22. Chronic ki dney disease 801194761 N18.9 Unclear baseline. Cr appears to be WNL for most of her recent hospitaliz ation.Avoi d nephrotoxi ns and trend labs. Hyperlipidemia 70453890 E78.5 Presumed stable. Continue statin. Coronary arteriosclerosis 39274744 I25.10 Details unclear. Patient denies recent chest pain and does not take nitro prn as outpatient .Continue current medication s regimen and f/u with cards as scheduled. Crohn's disease 49809550 K50.90 Continue Balsalazid e and cathartics as ordered.Ou tpatient f/u with GI. Vitamin deficiency 83748 002 E56.9 Continue B12 and vitamin D replacemen t therapy. Constipation 70189540 K5 9.00 Patient is on routine Senna S and Miralax.Mo nitor clinically and adjust accordingl y. Major depr essive disorder 941867821 F32.9 Stable. Continue Sertraline . Gastroesop hageal reflux disease without esophagitis 758841684 K21.9 Stable. Continue Pepcid. Idiopathic peripheral neuropathy 94566612 G60.9 Stable. Continue Neurontin and PRN Tylenol. Restless l egs syndrome 52294636 G25.81 Stable. Continue Ropinirole and Pramipexol e. Acute urin zuleika tract infection 623622517 N39.0 Per urine done on arrival at [facility], culture grew >100,000 klebsiella .Sensitivi ties were not ran for 1st generation cephalospo rins, which is what the patient was treated with while at [facility] (Ancef x 7 days).She currently has no urinary symptoms or other concerns for infection. Monitor clinically . Physical deconditioning [id number] 9102 R68.89 Related to advanced age, recent fall, comorbidit ies.Therap ies are in place, she will return home with family support upon d/c from . [id number] eMagan Menjivar, DO [address] [phone] 07/06/2024 10:53:33 07/08/2024 09:19:36 Congestive heart failure 54375358 I50.9 Pt reports weight prior to hospitaliz ation was 198 lbs. Improved with Metolazone burst (down 8 lbs) but immediatel y began gaining the weight and edema back once completed. Have escalated Lasix to Bumex with improvemen t. Continue KCl and Metoprolol , as well.Monit or weights/ed sandra/labs as OP.Cardiol ogy f/u with Dr. Radha Jimenez on 07/22. Chronic ob structive pulmonary disease 86666630 J44.9 on 4 liters/min [place] of supplement al O2 at baseline.S he [...] with pulmonary. Chronic hy poxemic respiratory failure 003998141 J96.11 [id number] SEE ABOVE... 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 Continue Diltiazem, Metoprolol , Bumex, and Potassium. Received Metolazone burst from 06/26 to 07/01.Contin ue to trend blood pressures, monitor lytes and renal function, and adjust meds as clinically indicated. Cardiology f/u with Dr. Radha Jimenez on 07/22. Closed fra cture of distal end of left radius [id number] 4886009 S52.502D s/p ORIF 05/18 per hand/plast ics Dr. Margy Walker at [facility].She was initially NWB to LUE with OCL splint in place. Was seen by Dr. Walker on 06/23, OCL splint removed and wrist brace placed in stead, which she is to wear at all times (remove for exercise & shower) x 2 weeks (07/07).Con tinue Tylenol PRN for pain.Sutur es removed at 06/23 appt. Incisions healed.F/U with Dr. Walker PRN. Fracture of orbit 806571 07 S02.31XD S/P ORIF on 05/19 per ENT.Eye drops have been d/c'd.Outp atient f/u with ENT. Intraparen chymal hemorrhage of brain 544671695 I61.8 Anticoagul ation has been stopped.NS followed [...] Jimenez on 07/22. Chronic ki dney disease 554212387 N18.9 Unclear baseline. Cr appears to be WNL for most of her recent hospitaliz ation.Avoi d nephrotoxi ns and trend labs. Hyperlipidemia 96207534 E78.5 Presumed stable. Continue statin. Coronary arteriosclerosis 66448465 I25.10 Details unclear. Patient denies recent chest pain and does not take nitro prn as outpatient .Continue current medication s regimen and f/u with cards on 07/22. Crohn's disease 73598204 K50.90 Continue Balsalazid e and cathartics as ordered.Ou tpatient f/u with GI. Vitamin deficiency 01276 002 E56.9 Continue B12 and vitamin D replacemen t therapy. Constipation 50870003 K5 9.00 Patient is on routine Senna S and Miralax.Mo nitor clinically and adjust accordingl y. Major depr essive disorder 806071030 F32.9 Stable. Continue Sertraline . Gastroesop hageal reflux disease without esophagitis 289739509 K21.9 Stable. Continue Pepcid. Idiopathic peripheral neuropathy 75245766 G60.9 Stable. Continue Neurontin and PRN Tylenol. Restless l egs syndrome 62025218 G25.81 Stable. Continue Ropinirole and Pramipexol e. Acute urin zuleika tract infection 156610246 N39.0 Per urine done on arrival at [facility], culture grew >100,000 klebsiella .Sensitivi ties were not ran for 1st generation cephalospo rins, which is what the patient was treated with while at [facility] (Ancef x 7 days).She currently has [...] Guarantor Name 06/25/2024 [place] Ping Waller [id number] Ping Waller 07/08/2024 2 [place] [id number] Ping Waller [id number] Ping Waller 07/06/2024 1 [place] Ping Waller [id number] Ping Waller Notes Date Note Type Note [...] She lives alone in a home in [place] - her daughter and son live on [...] placement, safety and sequencing. Emy Su, ALFONSO [id number] [facility], [place], [address], [facility] - [facility] 06/25/2024 14:53:49 06/29/2024 text/html F/U [...] She lives alone in a home in [place] - her daughter and son live on [...] posture and wider KARINE. Emy Su, ALFONSO [address] [facility], [place], [address], [facility] - [facility] 06/29/2024 15:44:08 07/01/2024 text/html F/U [...] She lives alone in a home in [place] - her daughter and son live on [...] pt was very impulsive. Emy Su, ALFONSO [address] [facility], [place], [address], [facility] [place] [place] - [facility] 07/01/2024 15:15:41 07/03/2024 text/html F/U [...] She lives alone in a home in [place] - her daughter and son live on [...] SBA cues for energy conservation. Emy Su, ALFONSO [address] [place], [address], [employer] [facility] 07/04/2024 11:15:18 07/06/2024 text/html 78 yo F PMH HFrEF pulm HTN, COPD, 4L O2 at baseline, Afib on xarelto admitted to [facility] for post acute rehab subsequent to an inpatient stay at [facility] hospital 05/13-05/27/24 and an acute rehab stay at [facility] 05/27-06/16/24 following a fall with head strike. She fell from a stool at her kitchen countertop on the am of 05/12. She was initially taken to [facility] and then transferred to [facility] due to her injuries. Injuries#Orbital Blowout Fx#L IPH#L distal radius fractureSurgeries05/18 ORIF L radius w PRS (Keldhruv)05/19 R ORIF Orbital FloorHospital Course:Closed fracture of distal end of left radius- Plastics consult- L hand/wrist xr (05/14): Comminuted intra-articular fracture of the left distal radius with mild articular surface depression, Apparent widening of the left scapholunate interval may be seen in setting of ligamentous injury.- NWB LUE- LUE with collinsg splint05/18 ORIF L radius w PRS ([place])- [...] 6- Follow up with Dr Lea's team. [phone] sAncef 7day (complete)* Fall, initial encounterSyncopal workup [...] by ENT 05/21TFs commenced 05/21, advancing as tolerated3/2: On regular PO diet today. Informed by [...] NPO, resumed tube feeds, ordered for repeat RESIDENCY DIRECTOR evaluation. Recommend up in chair for all meals and 1:1 assistance during meals pending RESIDENCY DIRECTOR evaluation. Discussed with patient and nurse to [...] as above- Home O2 4L- Follows with [facility] Cardiology- Home Diltiazem, Entresto, Lasix (1/2 dose) and metoprolol continued She was transferred to [facility] 05/27. Her stay there was complicated by Covid - she required transfer to the ER at [facility] 06/05 with CTA of the chest negative for PE or pneumonia. It is unclear if she was treated with antivirals as no d/c summary from her stay at [facility] has been provided, only a few progress notes and NO labs or imaging results sent from her stay at [facility]. The patient did not have [...] She lives alone in a home in [place] - her daughter and son live on [...] CGA cueing for hand placement, safety and sequencing.---06/29/24 margot is doing fairly well today, without [...] FWW 75 ft SBA cues for energy conservation.---Ping ia seated in her w/c in her room, in good spirits, looking forward to discharging home tomorrow. She will have [facility] as well as private-duty nursing to help [...] floor clearance and saftey Emy Su, ALFONSO [id number] [facility], [place], [address], [place] - [facility] 07/06/2024 17:10:14 OBGyn Episode No OBEpisode recorded.
== END 2025-03-15 14:08 | disposition home or self-care (01) ==
LOC: ANHIMG 14:08
PROVIDERS: PCP Family Medicine; Visit Provider Student in an Organized Health Care Education/Training Program
DX: M79.89 Other specified soft tissue disorders (principal); N18.30 Chronic kidney disease, stage 3 unspecified; K51.90 Ulcerative colitis, unspecified, without complications
CPT/HCPCS: 36415; 80053; 85025; 93971